=== PATIENT | female | born 1945 | race Caucasian/White ===

== ENCOUNTER → 2020-06-28 15:24 | Outpatient (BNVA) | payer MEDICARE, OTHER, SELFPAY | PROVIDERS: Visit Provider Nurse Practitioner Family | DX: E11.9 Type 2 diabetes mellitus without complications (principal); Z79.4 Long term (current) use of insulin; I10 Essential (primary) hypertension; Z51.81 Encounter for therapeutic drug level monitoring; Z79.02 Long term (current) use of antithrombotics/antiplatelets; E03.9 Hypothyroidism, unspecified; N18.4 Chronic kidney disease, stage 4 (severe); E11.22 Type 2 diabetes mellitus with diabetic chronic kidney disease; G20 Parkinson's disease | CPT/HCPCS: 80053; 83036; 84443; 85025 ==

== ENCOUNTER → 2020-07-06 10:49 | Outpatient (BNVA) | payer MEDICARE, OTHER, SELFPAY | PROVIDERS: PCP Nurse Practitioner Family; Visit Provider Nurse Practitioner Family | DX: R35.0 Frequency of micturition (principal); R31.9 Hematuria, unspecified; N39.0 Urinary tract infection, site not specified; Z79.4 Long term (current) use of insulin; E11.9 Type 2 diabetes mellitus without complications | CPT/HCPCS: 81000; 87077; 87086; 87184 ==

== ENCOUNTER → 2020-08-05 09:06 | Outpatient (BNVA) | payer MEDICARE, OTHER, SELFPAY | PROVIDERS: PCP Nurse Practitioner Family; Visit Provider Nurse Practitioner Family | DX: N39.0 Urinary tract infection, site not specified (principal); R31.9 Hematuria, unspecified; I10 Essential (primary) hypertension; M25.559 Pain in unspecified hip | CPT/HCPCS: 80053; 81000; 87077; 87086; 87184 ==

== ENCOUNTER → 2020-08-19 11:12 | Outpatient (BNVA) | payer MEDICARE, OTHER, SELFPAY | PROVIDERS: PCP Nurse Practitioner Family; Visit Provider Internal Medicine Nephrology | DX: E11.22 Type 2 diabetes mellitus with diabetic chronic kidney disease (principal) | CPT/HCPCS: 82310; 83550; 83970; 84100; 85025 ==

== ENCOUNTER → 2020-11-19 10:26 | Outpatient (BNVA) | payer MEDICARE, OTHER, SELFPAY | PROVIDERS: PCP Nurse Practitioner Family; Visit Provider Nurse Practitioner Family | DX: M54.9 Dorsalgia, unspecified (principal); I10 Essential (primary) hypertension; E11.9 Type 2 diabetes mellitus without complications; Z79.4 Long term (current) use of insulin; M54.30 Sciatica, unspecified side; M53.87 Other specified dorsopathies, lumbosacral region; R31.9 Hematuria, unspecified | CPT/HCPCS: 80053; 81000; 82043; 83036; 87077; 87086; 87184 ==

== ENCOUNTER 2020-11-25 13:50 | Outpatient (CLI) | payer MEDICARE, OTHER, SELFPAY ==
--- NOTE | 2020-11-25 14:07 | XR_ITS ---
WS: [id number] XR lumbar spine 2-3V* [id number] REASON FOR EXAM: M54.9 - Dorsalgia, unspecified FINDINGS: Bone density mildly diminished. At L2-L3 there is significant narrowing of the disc space with degenerative gas. Significant sclerosi s in the inferior half of the L2 vertebral with milder sclerosis in the superior endplate of L3. 4 mm of retrolisthesis of L2 on L3. Mild biconcave compression deformity of L2. Pedicle screws L3-S1 with interbody fusion devices at L3-L4, L4-L5, and L5-S1. Approximately 5 mm of anterolisthesis of L4 in relation to L3 and L5. XR/XR lumbar spine 2-3V* [id number] IMPRESSION: Post lumbar surgical changes as above. Changes of severe degenerative disc disease at L2-L3.
--- NOTE | 2020-11-25 14:15 | US_ITS ---
WS: [id number] ULTRASOUND RENAL TECHNIQUE: Ultrasound examination of both kidneys. CLINICAL INFORMATION: R10.9 - Unspecified abdominal pain COMPARISON: None. FINDINGS: Technically difficult examination due to body habitus RIGHT: Right kidney is normal in size and appearance. Echogenicity: Increased Cortical thickness: 1.1 cm; Normal. Hydronephrosis: None. Perinephric fluid: Present Right kidney measures: 9.1 cm x 5.0 cm x 3.9 cm. LEFT: Left kidney is normal in size and appearance. Echogenicity: Increased Cortical thickness: 1.7 cm; Normal. Hydronephrosis: None. Perinephric fluid: None. Left kidney measures: 10.5 cm x 5.6 cm x 3.8 cm. Normal visualized aorta. Distended bladder volume 308 cc US/US renal BI* [id number] IMPRESSION: 1. No hydronephrosis in either kidney. 2. Echogenic kidneys right greater than left can be seen with chronic medical renal disease. Small amount of perinephric fluid. 3. Distended bladder volume 308 cc
== END 2020-11-25 13:51 | disposition home or self-care (01) ==
PROVIDERS: PCP Nurse Practitioner Family; Visit Provider Nurse Practitioner Family
DX: R10.9 Unspecified abdominal pain (principal); M54.5 Low back pain; M51.36 Other intervertebral disc degeneration, lumbar region
CPT/HCPCS: 72100; 76770

== ENCOUNTER → 2020-12-06 11:51 | Outpatient (BNVA) | payer MEDICARE, OTHER, SELFPAY | PROVIDERS: PCP Nurse Practitioner Family; Visit Provider Nurse Practitioner Family | DX: N30.00 Acute cystitis without hematuria (principal); M51.36 Other intervertebral disc degeneration, lumbar region | CPT/HCPCS: 87077; 87086; 87184 ==

== ENCOUNTER → 2020-12-07 10:40 | Outpatient (BNVA) | payer MEDICARE, OTHER, SELFPAY | PROVIDERS: PCP Nurse Practitioner Family; Referring Provider Nurse Practitioner Family; Visit Provider Anesthesiology Pain Medicine | DX: G20 Parkinson's disease (principal); M51.16 Intervertebral disc disorders with radiculopathy, lumbar region; M47.816 Spondylosis without myelopathy or radiculopathy, lumbar region; M96.1 Postlaminectomy syndrome, not elsewhere classified; Z87.891 Personal history of nicotine dependence | CPT/HCPCS: 99204 ==

== ENCOUNTER → 2021-01-05 10:46 | Outpatient (BNVA) | payer MEDICARE, OTHER, SELFPAY | PROVIDERS: PCP Nurse Practitioner Family; Visit Provider Anesthesiology Pain Medicine | DX: M51.16 Intervertebral disc disorders with radiculopathy, lumbar region (principal); M47.816 Spondylosis without myelopathy or radiculopathy, lumbar region; M96.1 Postlaminectomy syndrome, not elsewhere classified; M79.604 Pain in right leg; M79.605 Pain in left leg; Z79.891 Long term (current) use of opiate analgesic | CPT/HCPCS: 99214 ==

== ENCOUNTER → 2021-02-02 10:02 | Outpatient (BNVA) | payer MEDICARE, OTHER, SELFPAY | PROVIDERS: PCP Nurse Practitioner Family; Visit Provider Anesthesiology Pain Medicine | DX: M51.16 Intervertebral disc disorders with radiculopathy, lumbar region (principal); M47.816 Spondylosis without myelopathy or radiculopathy, lumbar region; M96.1 Postlaminectomy syndrome, not elsewhere classified; M79.604 Pain in right leg; M79.605 Pain in left leg; E11.22 Type 2 diabetes mellitus with diabetic chronic kidney disease; N18.4 Chronic kidney disease, stage 4 (severe); E11.40 Type 2 diabetes mellitus with diabetic neuropathy, unspecified; M79.7 Fibromyalgia; G20 Parkinson's disease; Z79.891 Long term (current) use of opiate analgesic; Z79.4 Long term (current) use of insulin | CPT/HCPCS: 99214 ==

== ENCOUNTER → 2021-03-03 09:28 | Outpatient (BNVA) | payer MEDICARE, OTHER, SELFPAY | PROVIDERS: PCP Nurse Practitioner Family; Visit Provider Anesthesiology Pain Medicine | DX: M51.16 Intervertebral disc disorders with radiculopathy, lumbar region (principal); M47.816 Spondylosis without myelopathy or radiculopathy, lumbar region; M96.1 Postlaminectomy syndrome, not elsewhere classified; M79.604 Pain in right leg; M79.605 Pain in left leg; Z79.891 Long term (current) use of opiate analgesic | CPT/HCPCS: 99214 ==

== ENCOUNTER → 2021-03-07 14:43 | Outpatient (BNVA) | payer MEDICARE, OTHER, SELFPAY | PROVIDERS: PCP Nurse Practitioner Family; Visit Provider Nurse Practitioner Family | DX: R30.9 Painful micturition, unspecified (principal); R31.9 Hematuria, unspecified | CPT/HCPCS: 81000; 87077; 87086; 87184 ==

== ENCOUNTER → 2021-03-09 10:09 | Outpatient (BNVA) | payer MEDICARE, OTHER, SELFPAY | PROVIDERS: PCP Nurse Practitioner Family; Visit Provider Internal Medicine | DX: E11.22 Type 2 diabetes mellitus with diabetic chronic kidney disease (principal); N18.4 Chronic kidney disease, stage 4 (severe) | CPT/HCPCS: 80069 ==

== ENCOUNTER 2021-03-31 09:59 | Observation (INO) | payer MEDICARE, OTHER, SELFPAY ==
[2021-03-31] VITALS (8 sets, daily range): BP systolic 109–155; BP diastolic 60–109; PULSE 75–104; RESP 15–22; TEMP 36.7–37; O2SAT 93–98; BMI 39.0
--- NOTE | 2021-03-31 10:11 | ECG_ITS ---
[facility] Test Date: 2021-03-31 Pat Name: Meghna Chaudhari Department: Room: Gender: Female Soaping Machine Back Tender: : 1945 Requested By: Nav Carter Order Number: [id number] Sara MD: Mellisa Sommer M.D. Measurements Intervals [place] Rate: 95 P: VT: QRS: 11 QRSD: 91 T: 60 QT: 388 QTc: 489 Interpretive Statements ATRIAL FIBRILLATION POSSIBLE RIGHT VENTRICULAR CONDUCTION DELAY [RSR (QR) IN V1/V2] POSSIBLE LEFT VENTRICULAR HYPERTROPHY [VOLTAGE CRITERIA PLUS LAE OR QRS WIDENING] No previous ECG available for comparison Electronically Signed On 03-31-2021 16:03:32 COSTUMER by Mellisa Sommer M.D. [id number]
--- NOTE | 2021-03-31 10:28 | XR_ITS ---
WS: [id number] Portable AP upright chest, 03/31/2021 Clinical Data: shortmess of breath Comparison: None. Findings: No nodules, masses or effusions are seen. The heart is normal. The pulmonary vascularity is not increased. No pneumonia or pneumothorax is seen. The aortic arch and descending thoracic aorta s how calcification and tortuosity. Monitoring leads are on the chest wall. Thoracic epidural leads end at the T8 vertebral level. XR/XR chest 1V portable [id number] Impression: Atherosclerosis.
[2021-03-31] MEDS: sodium chloride 0.9% 500 ML 999 ML IV (10:47)
[2021-03-31 10:52] LABS: Basophils # 0.1 10^3/uL (0.0-0.1); Basophils % 0.6 %; Eosinophils # 0.3 10^3/uL (0.0-0.8); Eosinophils % 1.9 %; Hematocrit 28.3 % (37.0-47.0); Hemoglobin 9.1 g/dL (11.5-15.3); Lymphocytes # 1.7 10^3/uL (0.8-4.8); Lymphocytes % 12.4 %; Mean Corpuscular HGB Conc 32.2 g/dL (30.0-36.0); Mean Platelet Volume 9.8 fL (7.4-10.4); Monocytes # 0.7 10^3/uL (0.2-0.9); Monocytes % 5.3 %; Neutrophils # 11.14 10^3/uL (1.8-7.7); Neutrophils % 79.3 %; Nucleated Red Blood Cells % 0 %; Platelet Count 368 10^3/cmm (130-400); Red Blood Count 3.37 10^6/uL (4.1-5.3); Red Cell Distribution Width 15.8 % (12.1-15.1)
[2021-03-31 11:12] LABS: Troponin(5th) Baseline 41 ng/L (0-10)
[2021-03-31 11:19] LABS: Alanine Aminotransferase < 5 U/L (0-33); Albumin Level 3.6 g/dL (3.5-5.2); Alkaline Phosphatase 103 IU/L (35-105); Aspartate Amino Transferase 11 U/L (0-32); Blood Urea Nitrogen 52 mg/dL (8-23); Carbon Dioxide 25 mmol/L (22-29); Chloride 104 mmol/L (98-107); Globulin 3.5 g/dL (1.3-4.6); Glucose 63 mg/dL (65-115); Lipase 34 U/L (13-60); NT Pro B Type Natriuretic Pept 2022 pg/mL (0-450); Osmolality Calculated 310 mOsm/kg (285-295); Sodium 144 mmol/L (136-145); Total Bilirubin 0.3 mg/dL (0.15-1.2); Total Protein 7.1 g/dL (6.6-8.7)
[2021-03-31 11:41] LABS: Urine Appearance Cloudy (CLEAR); Urine Color Straw (Yellow); pH Urine 5 (5-7)
[2021-03-31 11:42] LABS: Add Urine Microscopic? YES; Bilirubin Urine Neg (Negative); Blood Urine Neg (Negative); Glucose Urine UA Norm (Normal); Ketones Urine Negative (Negative); Leukocyte Esterase Urine 1+ (Negative); Nitrate Urine Negative (Negative); Protein Urine 3+ (Negative); Specific Gravity, Urine 1.015 (1.005-1.030); Urobilinogen Urine Norm (Negative)
[2021-03-31 11:43] LABS: Add Urine Culture? Yes; Bacteria Urine 4+ /hpf; Mucus Urine 1+ /hpf; RBC Urine 0-4 /hpf (0-2); WBC Urine 40-55 /hpf (0-5)
[2021-03-31 11:55] LABS: INR 1.04 (0.8-1.2)
[2021-03-31 11:56] LABS: Partial Thromboplastin Time 31.1 SECONDS (23.9-36.7)
--- NOTE | 2021-03-31 12:29 | ECG_ITS ---
[facility] Test Date: 2021-03-31 Pat Name: Meghna Chaudhari Department: Room: Gender: Female Manager Long Term Care: : 1945 Requested By: Nav Carter Order Number: [id number] Sara MD: Mellisa Sommer M.D. Measurements Intervals [place] Rate: 96 P: NV: QRS: 4 QRSD: 93 T: 59 QT: 402 QTc: 509 Interpretive Statements ATRIAL FIBRILLATION POSSIBLE RIGHT VENTRICULAR CONDUCTION DELAY [RSR (QR) IN V1/V2] VOLTAGE CRITERIA FOR LVH [MEETS CRITERIA IN ONE OF: R(aVL), S(V1), R(V5), R(V5/V6)+S(V1)] Compared to ECG 03/31/2021 10:22:15 No significant changes Electronically Signed On 03-31-2021 16:05:34 EYEGLASS LENS GENERATOR by Mellisa Sommer M.D. [id number]
--- NOTE | 2021-03-31 12:38 | W.ED.SOB ---
HPI - SOB/Dyspnea General: Chief Complaint: Shortness of Breath/Dyspnea Stated Complaint: SOB/ CP Time Seen by Provider: 03/31/21 10:24 Source: patient and family History of Present Illness: HPI Narrative: 76-year-old female presents to emergency department chief complaint of shortness of breath intermittent palpitations. She presents to the family practice clinic as there is concerned that the patient may be in atrial fibrillation. Patient reports she has had some generalized weakness fatigue malaise has been ongoing reports having episodes like this in the past reports no other pre-existing cardiac history does report having a prior history of stroke that she is on Plavix for. Patient reports no valvular heart disease reports of significant fatigue and dyspnea. Patient does report also having a history of chronic kidney disease with a urinary tract infection that she had approximately-3 weeks ago that she was treated with antibiotics. MD elicited complaint: shortness of breath Associated symptoms: Reports palpitations; Deny abdominal pain, chest pain, extremity pain, fever(s), nausea or vomiting Review of Systems General: Reports: 10 or more systems reviewed and unremarkable except in HPI and below Const: Denies: fever(s), chills, fatigue or malaise Eyes: Denies: change in vision or blurry vision Card: Reports: palpitations; Denies: chest pain Resp: Reports: dyspnea; Denies: productive cough GI: Denies: abdominal pain, nausea or vomiting : Denies: flank pain Musc: Denies: extremity pain or extremity swelling Skin/Breast: Denies: rash or pruritus Neuro: Denies: headache(s) Psych: Denies: anxiety or depression Tank/Lymph: Denies: easy bleeding All/Imm: Denies: urticaria, throat swelling or facial swelling PFSH ED PFSH: Medical History Anemia in chronic illness Chronic insomnia COPD (chronic obstructive pulmonary disease) Diabetes mellitus type 2, insulin dependent Diabetic neuropathy Fibromyalgia History of CVA (cerebrovascular accident) Hyperlipemia Hypertension Hypothyroidism Parkinson disease Sciatica associated with disorder of lumbosacral spine Stage 4 chronic renal impairment associated with type 2 diabetes mellitus Uncontrolled insulin dependent diabetes mellitus Vitamin D deficiency Surgical History Hx of cholecystectomy Hx of foot surgery Hx of hysterectomy Family History Father CAD (coronary artery disease) Mother CAD (coronary artery disease) Diabetes Grandfather CAD (coronary artery disease) Diabetes Social History Second hand smoke exposure: No Alcohol intake: current Alcohol intake frequency: holidays/special occasions only History of recent travel: No Course ED course: Due to the patient's symptoms condition lab and imaging was obtained patient was provided one dose of Cardizem which improved her rate down to the 80s still in atrial fibrillation but rate controlled patient was found in mild heart failure and mild chronic renal disease. Patient was provided a dose of Lasix as well will be contacting the hospital for further admission. Patient family updated agreeable to admission at this time. Spoke with Dr. Loaiza on-call hospitalist who agrees the patient to be made to the floor patient remained stable condition at this time. Vital Signs: Vital signs: Vital Signs Temperature 98.6 F 03/31/21 10:01 Pulse Rate 85 03/31/21 11:55 Respiratory Rate 18 03/31/21 11:55 Blood Pressure 146/70 03/31/21 11:55 Pulse Oximetry 96 03/31/21 11:55 MDM - SOB/Dyspnea Lab Data: Labs: Lab Results 03/31/21 03/31/21 03/31/21 10:10 10:10 10:10 WBC 14.0 10^3/uL H 10 ^3/uL (4.0-10.0) RBC 3.37 10^6/uL L 10 ^6/uL (4.1-5.3) Hgb 9.1 g/dL L g/dL (11.5-15.3) Hct 28.3 % L % (37.0-47.0) MCV 84.0 fl fl (81-99) MCH 27.0 pg L pg (28.0-34.0) MCHC 32.2 g/dL g/dL (30.0-36.0) RDW 15.8 % H % (12.1-15.1) Plt Count 368 10^3/cmm 10^3 /cmm (130-400) MPV 9.8 fL fL (7.4-10.4) Neut % (Auto) 79.3 % % Lymph % (Auto) 12.4 % % Alfalfa % (Auto) 5.3 % % Eos % (Auto) 1.9 % % Baso % (Auto) 0.6 % % Neut # (Auto) 11.14 10^3/uL H 1 0^3/uL (1.8-7.7) Lymph # (Auto) 1.7 10^3/uL 10^3/ uL (0.8-4.8) Alfalfa # (Auto) 0.7 10^3/uL 10^3/ uL (0.2-0.9) Eos # (Auto) 0.3 10^3/uL 10^3/ uL (0.0-0.8) Baso # (Auto) 0.1 10^3/uL 10^3/ uL (0.0-0.1) Nucleated RBC % (a uto) 0 % % Nucleated RBCs # 0.0 /100WBC /100W BC PT INR APTT Sodium 144 mmol/L mmol/L (136-145) Potassium 3.0 mmol/L L mmol /L (3.5-5.1) Chloride 104 mmol/L mmol/L (98-107) Carbon Dioxide 25 mmol/L mmol/L (22-29) Anion Gap 18.0 (5-19) BUN 52 mg/dL H mg/dL (8-23) Creatinine 2.2 mg/dL H mg/dL (0.5-0.9) GFR Calculation Not Reportable Glucose 63 mg/dL L mg/dL (65-115) Calculated Osmolal ity 310 mOsm/kg H mOs m/kg (285-295) Calcium 8.0 mg/dL L mg/dL (8.5-10.5) Total Bilirubin 0.3 mg/dL mg/dL (0.15-1.2) AST 11 U/L U/L (0-32) ALT < 5 U/L U/L (0-33) Alkaline Phosphata se 103 IU/L IU/L (35-105) Troponin T Baselin e 41 ng/L H ng/L (0-10) NT-Pro-B Natriuret Pep 2022 pg/mL H pg/m L (0-450) Total Protein 7.1 g/dL g/dL (6.6-8.7) Albumin 3.6 g/dL g/dL (3.5-5.2) Globulin 3.5 g/dL g/dL (1.3-4.6) Lipase 34 U/L U/L (13-60) Urine Color Urine Appearance Urine pH Ur Specific Gravit y Urine Protein Urine Glucose (UA) Urine Ketones Urine Blood Urine Nitrate Urine Bilirubin Urine Urobilinogen Ur Leukocyte Miranda ase Urine RBC Urine WBC Ur Squamous Epith Cells Amorphous Sediment Urine Bacteria Urine Mucus 03/31/21 03/31/21 10:10 11:25 WBC RBC Hgb Hct MCV MCH MCHC RDW Plt Count MPV Neut % (Auto) Lymph % (Auto) Alfalfa % (Auto) Eos % (Auto) Baso % (Auto) Neut # (Auto) Lymph # (Auto) Alfalfa # (Auto) Eos # (Auto) Baso # (Auto) Nucleated RBC % (a uto) Nucleated RBCs # PT 14.00 SECONDS SEC ONDS (12.1-14.9) INR 1.04 (0.8-1.2) APTT 31.1 SECONDS SECO NDS (23.9-36.7) Sodium Potassium Chloride Carbon Dioxide Anion Gap BUN Creatinine GFR Calculation Glucose Calculated Osmolal ity Calcium Total Bilirubin AST ALT Alkaline Phosphata se Troponin T Baselin e NT-Pro-B Natriuret Pep Total Protein Albumin Globulin Lipase Urine Color Straw (Yellow) Urine Appearance Cloudy (CLEAR) Urine pH 5 (5-7) Ur Specific Gravit y 1.015 (1.005-1.030) Urine Protein 3+ H (Negative) Urine Glucose (UA) Norm (Normal) Urine Ketones Negative (Negative) Urine Blood Neg (Negative) Urine Nitrate Negative (Negative) Urine Bilirubin Neg (Negative) Urine Urobilinogen Norm mg/dL mg/dL (Negative) Ur Leukocyte Miranda ase 1+ H (Negative) Urine RBC 0-4 /hpf H /hpf (0-2) Urine WBC 40-55 /hpf H /hpf (0-5) Ur Squamous Epith Cells 5-10 /hpf H /hpf (0-5) Amorphous Sediment Not Reportable Urine Bacteria 4+ /hpf H /hpf (NONE) Urine Mucus 1+ /hpf /hpf EKG Data^: EKG 1: Attestation: I personally reviewed and interpreted this EKG as follows: Prior EKG tracings: available for review Ischemic changes: other (Atrial fibrillation rate of ninety-[address] segment elevations or depressions appreciated.) Discharge Plan Discharge Patient Disposition: Admitted As Inpatient Clinical Impression: Atrial fibrillation with controlled ventricular rate, Heart failure, Chronic renal insufficiency Condition: Stable Coding Level of Care Code ED Broaching Machine Set Up Operator for Dominick Baca
[2021-03-31 13:16] LABS: D Dimer 3.19 ug/mIFEU (0-0.59)
[2021-03-31 13:20] LABS: Troponin 5 2HR 42.09 ng/L (0-10); Troponin 5 2HR Delta 1.09 ABS# (0-10)
--- NOTE | 2021-03-31 13:20 | PC.PHAR ---
pt and pts daughter verified the pts medications-pts daughter states states the clonidine 0.3mg patch and spironolactone were dced-pts daughter states the pt takes armour thyriod 30mg qam filled on 02/28/21 90d/s and states she takes 120mg daily last filled on 07/26/20 90d/s-ext med history shows hydralazine last filled 12/12/20 90d/s for 25mg tid-pts daughter states the pt takes 12.5mg tid--notes are made in the pharmacy comments
[2021-03-31 13:41] LABS: SARS Covid-2 Antigen Negative (Negative)
[2021-03-31 14:03] LABS: Magnesium 1.6 mg/dL (1.7-2.3)
--- NOTE | 2021-03-31 14:45 | P.HP_ITS ---
Providers/Chief Complaint Admitting Physician: Gonzalo Loaiza MD Primary Care Provider: MILAGRO Kent Chief Complaint: SOB/ CP History of Present Illness Meghna Chaudhari is a 76 year old female who has history of chronic kidney disease, Charcot foot, diabetes, amputation of toes, presents today with chief complaint of worsening shortness of breath. Patient stating that she has been experiencing shortness of breath for quite some time which has gotten worse in the last few days. She has not noticed any fever, nausea, vomiting, sweats or substernal squeezing chest pain. She carries history of fibromyalgia, she only sleeps 2 to 3 hours a day she has insomnia. Does not smoke or drink alcohol. She lives in a skilled nursing apartment. Today she was not feeling well which she described as fatigue lethargy and shortness of breath on exertion, she went to her PCP where EKG was done and she was diagnosed with A. fib RVR. She came to the ER for further evaluation In the ER she received Cardizem IV push and A. fib was rate controlled afterwards, requested TSH and D-dimer, her D-dimer is high, requested VQ scan, replenished electrolytes such as magnesium and potassium for hypomagnesemia and hypokalemia At the time of my evaluation heart rate fluctuated between 10 5-1 15, started Eliquis and increased dose of metoprolol At the time my evaluation patient reproducible chest pain, hemodynamically stable, patient stating that she is not very mobile, she is vaccinated for COVID-19. Review of Systems Const: Reports: body aches and fatigue; Denies: chills Eyes: Denies: change in vision ENMT: Denies: throat pain Card: Reports: chest pain and dyspnea on exertion Resp: Reports: dyspnea GI: Denies: abdominal pain : Denies: flank pain Musc: Denies: neck pain Skin/Breast: Denies: rash Neuro: Denies: headache(s) Psych: Denies: anxiety Endo: Denies: polyuria Tank/Lymph: Denies: easy bruising All/Imm: Denies: urticaria Medications/Allergies Home Medications Medication Instructions Recorded Confirmed Last Taken Type aspirin 81 mg tablet,delayed 81 mg PO BEDTIME 06/28/20 03/31/21 Unknown History release cholecalciferol (vitamin D3) 25 25 mcg PO DAILY 06/28/20 03/31/21 Unknown History mcg (1,000 unit) capsule clopidogrel 75 mg tablet 75 mg PO BEDTIME 06/28/20 03/31/21 Unknown History ferrous sulfate 325 mg (65 mg 325 mg PO BID 06/28/20 03/31/21 Unknown History iron) tablet folic acid 1 mg tablet 1 mg PO QAM 06/28/20 03/31/21 Unknown History furosemide 40 mg tablet 40 mg PO QAM 06/28/20 03/31/21 Unknown History gabapentin 300 mg capsule 600 mg PO BID 06/28/20 03/31/21 Unknown History hydralazine 25 mg tablet 12.5 mg PO TID tab 06/28/20 03/31/21 Unknown History metolazone 2.5 mg tablet See Rx Instructions .ROUTE .COMPLEX 06/28/20 03/31/21 Unknown History blood sugar diagnostic #100 ea 07/06/20 03/31/21 Unknown Rx carbidopa 25 mg-levodopa 100 mg 2 tab PO TID #360 tab 12/07/20 03/31/21 03/31/21 08:00 Rx tablet albuterol sulfate 90 mcg/actuation 2 puff INHALATION Q6H PRN #6.7 g 02/01/21 03/31/21 Unknown Rx aerosol inhaler simvastatin 40 mg tablet 40 mg PO DAILY #90 tab 02/01/21 03/31/21 Unknown Rx fluticasone propionate 115 2 puff INHALATION BID #8 g 02/02/21 03/31/21 03/31/21 08:00 Rx mcg-salmeterol 21 mcg/actuation HFA inhaler pen needle, diabetic 31 gauge x #1200 ea 02/28/21 03/31/21 Unknown Rx 5/16 oxycodone-acetaminophen 5 mg-325 1 tab PO BID PRN 30 Days #60 tab 03/03/21 03/31/21 Unknown Rx mg tablet blood sugar diagnostic #100 ea 03/14/21 03/31/21 Unknown Rx [place] Thyroid 30 mg PO QAM 03/31/21 03/31/21 Unknown History Remeron 30 mg PO BEDTIME 03/31/21 03/31/21 Unknown History Vesicare 5 mg PO QAM 03/31/21 03/31/21 Unknown History bimatoprost [Lumigan] 1 drp OPHTHALMIC (EYE) BEDTIME 03/31/21 03/31/21 Unknown History clonidine HCl 0.3 mg PO .PRN 03/31/21 03/31/21 Unknown History duloxetine 60 mg PO DAILY@12 03/31/21 03/31/21 Unknown History hydroxyzine pamoate 25 mg PO BEDTIME 03/31/21 03/31/21 Unknown History insulin aspart U-100 [Novolog See Rx Instructions .ROUTE .COMPLEX 03/31/21 03/31/21 03/31/21 08:00 History Flexpen U-100 Insulin] 2 units insulin glargine [Lantus Solostar 80 unit SUBCUT QAM 03/31/21 03/31/21 03/31/21 History U-100 Insulin] metoprolol tartrate 25 mg PO DAILY 03/31/21 03/31/21 Unknown History potassium chloride 20 meq PO BID 03/31/21 03/31/21 Unknown History ropinirole 0.5 mg PO BEDTIME 03/31/21 03/31/21 Unknown History thyroid (pork) [[place] Thyroid] 120 mg PO QAM 03/31/21 03/31/21 Unknown History Allergies Allergy/AdvReac Type Severity Reaction Status Date / Time sulfamethoxazole Allergy Rash Verified 03/31/21 08:22 [From Septra] trimethoprim [From Septra] Allergy Rash Verified 03/31/21 08:22 morphine AdvReac Personality Verified 03/31/21 08:22 Change pregabalin [From Lyrica] AdvReac Loopy/Unste Verified 03/31/21 08:22 anoop PFSH Acute PFSH: Medical History Anemia in chronic illness Chronic insomnia COPD (chronic obstructive pulmonary disease) Diabetes mellitus type 2, insulin dependent Diabetic neuropathy Fibromyalgia History of CVA (cerebrovascular accident) Hyperlipemia Hypertension Hypothyroidism Parkinson disease Sciatica associated with disorder of lumbosacral spine Stage 4 chronic renal impairment associated with type 2 diabetes mellitus Uncontrolled insulin dependent diabetes mellitus Vitamin D deficiency Surgical History Hx of cholecystectomy Hx of foot surgery Hx of hysterectomy Family History Father CAD (coronary artery disease) Mother CAD (coronary artery disease) Diabetes Grandfather CAD (coronary artery disease) Diabetes Social History Second hand smoke exposure: No Alcohol intake: current Alcohol intake frequency: holidays/special occasions only History of recent travel: No Vitals/I&O/Wt Last Vital Signs Temp 98.6 F 03/31/21 10:01 Pulse 78 03/31/21 14:16 Resp 18 03/31/21 14:16 BP 155/88 03/31/21 14:16 Pulse Ox 98 03/31/21 14:16 03/30/21 03/31/21 03/31/21 22:59 06:59 14:59 Intake Total 500 / 500 Balance 500 / 500 Weight last 48 hrs Weight 114.759 kg Physical Exam Narrative: EXAM NARRATIVE: Obese female Saturating well on room air EOMI, PERRLA Nonfocal neuro exam Variable S1-S2 Abdomen soft, distended with obesity Charcot foot Amputation of toes Lower extremity nonpitting edema Osteoarthritis of knees Appropriate mood and affect Data : 03/31/21 10:10 03/31/21 10:10 A&P Assessment and plan (1) Atrial fibrillation with controlled ventricular rate: Status: Acute (2) Chronic renal insufficiency: Status: Acute (3) COPD (chronic obstructive pulmonary disease): Status: Acute (4) Post laminectomy syndrome: Status: Acute (5) Lumbar disc disease with radiculopathy: Status: Acute (6) Parkinson disease: Status: Acute (7) Stage 4 chronic renal impairment associated with type 2 diabetes mellitus: Status: Acute (8) Anemia in chronic illness: Status: Acute (9) Fibromyalgia: Status: Acute (10) Hypothyroidism: Status: Acute (11) Diabetic neuropathy: Status: Acute Additional A&P Information New onset A. fib Ventricular rate is controlled however now fluctuating between 95-1 15 Increase her metoprolol to 100 mg twice daily Start Eliquis 5 mg twice daily, in case of worsening of creatinine might benefit from 2.5 mg twice daily We will request echo in the morning TSH normal Hypomagnesemia, hypokalemia: Repleted She has reproducible chest pain, troponin negative delta Saturating well on room air Patient has severe insomnia, she only sleeps 3 hours a day, Hemoglobin stable, anemia of chronic disease Cardiac diet, consistent carb diet for type 2 diabetes along sliding scale DVT prophylaxis currently on Eliquis Full code Secondary to severe electrolyte imbalance I will hold her metolazone which he takes for chronic kidney disease Attestations Medical Necessity Statement*: Anticipating less than 2 midnights in the hospital Time Spent in Patient Care: Greater than 35 minutes Coding Level of Care Code Acute Gas Operations Superintendent for Gisselg Fwd Diagnoses Atrial fibrillation with controlled ventricular rate I48.91 Chronic renal insufficiency N18.9 COPD (chronic obstructive pulmonary disease) J44.9 Post laminectomy syndrome M96.1 Lumbar disc disease with radiculopathy M51.16 Parkinson disease G20 Stage 4 chronic renal impairment associated with type 2 diabetes mellitus E11.22; N18.4 Anemia in chronic illness D63.8 Fibromyalgia M79.7 Hypothyroidism E03.9 Diabetic neuropathy E11.40
--- NOTE | 2021-03-31 14:48 | USCV_ITS ---
Meghna Chaudhari Age: 76 Gender: F : 1945 Exam Date: 03/31/2021 15:32 Ordering Phys: Gonzalo Loaiza MD Technologist: [place] [facility] [place]: LEG SWELLING PROCEDURES: Venous duplex imaging was performed in bilateral lower extremities. The following venous structures were evaluated: common femoral vein, profunda vein, proximal portion of the greater saphenous vein, superficial femoral vein, and the popliteal vein. In addition, the posterior tibial and peroneal trunk were evaluated. Serial compression, augmentation maneuvers, and spectral Doppler flow evaluation were performed. FINDINGS: Normal 2-D Doppler and augmentation and compressibility throughout the lower extremity venous structures. Additional imaging through the proximal calf veins also reveals no thrombus. Limited evaluation of the greater saphenous vein is patent with no thrombus.. CONCLUSIONS No evidence of right lower extremity DVT. No evidence of left lower extremity DVT. Philip June MD (Electronically Signed) Final Date: 31 March 2021 17:21 S
--- NOTE | 2021-03-31 15:04 | PC.NURSE ---
Received patient from ER. Patient is alert and has been oriented to use of call schmidt and surroundings. Patients blood pressure is high. Nurse will continue to monitor and give PO hydralazine as ordered.
[2021-03-31] MEDS: carbidopa-levodopa 25-100mg Tablet 2 EACH PO ×2 (15:27→21:50)
[2021-03-31] MEDS: potassium chloride ER 20 mEq Tablet 40 MEQ PO (15:28)
[2021-03-31] MEDS: magnesium sulfate premix 2 GM/50 ML PIGGYBACK IV (15:28)
[2021-03-31] MEDS: hyDRALAzine 25 mg Tablet 12.5 MG PO ×2 (15:28→21:50)
[2021-03-31 15:49] LABS: Glucose Point of Care 74 mg/dL (70-110)
--- NOTE | 2021-03-31 16:29 | ECG_ITS ---
[facility] Test Date: 2021-03-31 Pat Name: Meghna Chaudhari Department: Room: 108 Gender: Female Waste Elimination: : 1945 Requested By: Nav Carter Order Number: [id number] Sara MD: Mellisa Sommer M.D. Measurements Intervals [place] Rate: 90 P: HI: QRS: -11 QRSD: 95 T: 52 QT: 399 QTc: 488 Interpretive Statements ATRIAL FIBRILLATION POSSIBLE RIGHT VENTRICULAR CONDUCTION DELAY [RSR (QR) IN V1/V2] VOLTAGE CRITERIA FOR LVH [MEETS CRITERIA IN ONE OF: R(aVL), S(V1), R(V5), R(V5/V6)+S(V1)] MODERATE ST DEPRESSION [0.05+ mV ST DEPRESSION] Compared to ECG 03/31/2021 13:08:56 ST (T wave) deviation now present Electronically Signed On 04-01-2021 6:36:59 CRECHE ATTENDANT by Mellisa Sommer M.D. [id number]
[2021-03-31] MEDS: ferrous sulfate EC 325 mg Tablet PO (17:38)
[2021-03-31] MEDS: gabapentin 300 mg Capsule 600 MG PO (17:38)
[2021-03-31] MEDS: oxyCODONE-APAP 5-325 mg Tablet 1 TAB PO (20:20)
[2021-03-31] MEDS: clopidogrel 75 mg Tablet PO (21:50)
[2021-03-31] MEDS: ropinirole 0.25 mg Tablet 0.5 MG PO (21:50)
[2021-03-31] MEDS: potassium chloride ER 20 mEq Tablet PO (21:51)
[2021-03-31] MEDS: metoprolol tartrate 50 mg Tablet 100 MG PO (21:52)
[2021-03-31] MEDS: apixaban 5 mg Tablet PO (21:55)
[2021-04-01] VITALS (10 sets, daily range): BP systolic 127–157; BP diastolic 75–110; PULSE 73–96; RESP 16–22; TEMP 36.6; O2SAT 91–98
[2021-04-01 03:59] LABS: Basophils # 0.1 10^3/uL (0.0-0.1); Basophils % 0.5 %; Eosinophils # 0.2 10^3/uL (0.0-0.8); Eosinophils % 1.9 %; Hematocrit 27.5 % (37.0-47.0); Hemoglobin 8.4 g/dL (11.5-15.3); Lymphocytes # 2.5 10^3/uL (0.8-4.8); Lymphocytes % 19.2 %; Mean Corpuscular HGB Conc 30.5 g/dL (30.0-36.0); Mean Corpuscular Volume 88.4 fl (81-99); Mean Platelet Volume 9.9 fL (7.4-10.4); Monocytes # 0.8 10^3/uL (0.2-0.9); Monocytes % 5.8 %; Neutrophils # 9.35 10^3/uL (1.8-7.7); Neutrophils % 72.1 %; Nucleated Red Blood Cells % 0 %; Platelet Count 368 10^3/cmm (130-400); Red Blood Count 3.11 10^6/uL (4.1-5.3)
[2021-04-01 04:24] LABS: Anion Gap 17.2 (5-19); Blood Urea Nitrogen 56 mg/dL (8-23); Calcium 8.1 mg/dL (8.5-10.5); Carbon Dioxide 26 mmol/L (22-29); Chloride 102 mmol/L (98-107); Glucose 119 mg/dL (65-115); Osmolality Calculated 311 mOsm/kg (285-295); Potassium 3.2 mmol/L (3.5-5.1); Sodium 142 mmol/L (136-145)
[2021-04-01] MEDS: folic acid 1 mg Tablet PO (05:35)
[2021-04-01] MEDS: thyroid 60 mg Tablet 30 MG PO (05:35)
[2021-04-01] MEDS: FUROsemide 40 mg Tablet PO (05:36)
[2021-04-01] MEDS: thyroid 60 mg Tablet 120 MG PO (05:36)
--- NOTE | 2021-04-01 05:56 | PC.NURSE ---
Frequent safety and comfort rounds continue. Orders and/or nursing care completed as indicated. Patient monitored for response to intervention and treatment(s). Education provided includes blood pressure medications]. Patient and/or packaging sales representative verbalizes understanding. Will continue to monitor.
[2021-04-01 07:09] LABS: Glucose Point of Care 106 mg/dL (70-110)
[2021-04-01] MEDS: insulin glargine 100 units/1 mL 80 UNIT SUBCUT (08:09)
[2021-04-01] MEDS: hyDRALAzine 25 mg Tablet 12.5 MG PO ×3 (08:12→20:43)
[2021-04-01] MEDS: ferrous sulfate EC 325 mg Tablet PO ×2 (08:13→17:02)
[2021-04-01] MEDS: atorvastatin 40 mg Tablet 20 MG PO (08:13)
[2021-04-01] MEDS: gabapentin 300 mg Capsule 600 MG PO ×2 (08:13→17:02)
[2021-04-01] MEDS: apixaban 5 mg Tablet PO (08:13)
[2021-04-01] MEDS: carbidopa-levodopa 25-100mg Tablet 2 EACH PO ×3 (08:13→20:44)
[2021-04-01] MEDS: metoprolol tartrate 50 mg Tablet 100 MG PO ×2 (08:13→20:43)
[2021-04-01] MEDS: metOLazone 5 MG Tablet 2.5 MG PO (09:35)
[2021-04-01] MEDS: oxyCODONE-APAP 5-325 mg Tablet 1 TAB PO ×2 (09:35→17:37)
[2021-04-01 11:06] LABS: Glucose Point of Care 114 mg/dL (70-110)
[2021-04-01 11:19] LABS: Glucose Point of Care 177 mg/dL (70-110)
[2021-04-01] MEDS: duloxetine 60 mg Capsule PO (11:33)
[2021-04-01] MEDS: insulin lispro 100 unit/1 mL SUBCUT ×2 (11:33→17:01)
--- NOTE | 2021-04-01 12:30 | PM.PN ---
Subjective Subjective: Interval history: Patient was seen and examined She is feeling fine, A. 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 fib without RVR Saturating well on room air Abdomen soft with obesity Bilateral lower extremity with Charcot foot No severe edema of legs Patient was eating breakfast No conversational dyspnea No active chest pain Data : 04/01/21 03:21 04/01/21 03:21 Micro: Microbiology 03/31/21 11:25 Urine Culture - Preliminary Urine,Clean Catch Gram Negative Rods A&P Assessment and plan (1) Atrial fibrillation with controlled ventricular rate: Status: Acute (2) COPD (chronic obstructive pulmonary disease): Status: Acute (3) Post laminectomy syndrome: Status: Acute (4) Fibromyalgia: Status: Acute (5) Anemia in chronic illness: Status: Acute (6) Hypothyroidism: Status: Acute (7) Diabetic neuropathy: Status: Acute Additional A&P Information A. fib without RVR Rate controlled with higher dose of metoprolol, she is on low-dose Eliquis because of worsening kidney function, high probability for PE No signs of DVT Hypomagnesemia: Repleted Patient is still hypokalemic, will replete today as well No active chest pain Her shortness of breath has improved She is feeling much better today Echo without significant valvular abnormality Full code Cardiac diet Started metolazone today Acute on chronic kidney disease: Creatinine has worsened to 2.6, baseline creatinine seems to be around 2.2-2.3 Plan to discharge her tomorrow Attestations Medical Necessity Statement*: Discharge tomorrow Time Spent in Patient Care: 16 - 35 minutes Coding Level of Care Code 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
--- NOTE | 2021-04-01 14:48 | NM_ITS ---
WS: [id number] NUCLEAR MEDICINE LUNG VENTILATION AND PERFUSION CLINICAL INFORMATION: sob, afib new onset TECHNIQUE: Ventilation/perfusion lung scan with 32.4 mCi technetium 99m DTPA. 5.4 mCi MAA COMPARISON: None. FINDINGS: Radiograph March 31, 2021 reviewed. Patchy central radiotracer deposition on the ventilatory image s due to emphysema. Large regional perfusion defect in the left posterior lung on the LPO imaging with areas of matched a nd mismatched ventilation defects. Matched ventilation/perfusion defect in the left upper lobe. Singl e matched area of ventilation/perfusion defect in the right posterior lateral lung. NM/NM pul vent and perfus* [id number] IMPRESSION: 1. High probability for pulmonary embolus. Consider further evaluation with CTA chest if renal function allows. Exam interpreted using the PIOPED II criteria 2008: 1. Normal 2. High probability (> 80%) 3. Intermediate probability (20-79%) 4. Low probability (10-19%) 5. Very low probability (<10%) JNM 2006 6. Indeterminate Notified Gonzalo Loaiza MD at 04/01/2021 8:37 AM.
[2021-04-01 15:55] LABS: Glucose Point of Care 156 mg/dL (70-110)
--- NOTE | 2021-04-01 19:40 | USCV_ITS ---
Meghna Chaudhari Age: 76 Gender: F : 1945 Exam Date: 04/01/2021 05:35 Ordering Phys: Gonzalo Loaiza MD Technologist: Deepti Amezcua [place] [facility] [place] NEW ONSET AFIB BP: 154 / 82 HR: 83 Rhythm: Sinus Technical Quality: Adequate MEASUREMENTS (Male / Female) Normal Values 2D ECHO LV Diastolic Diameter PLAX 3.3 cm 4.2 - 5.9 / 3.9 - 5.3 cm LV Systolic Diameter PLAX 3.1 cm LV Chamber Size 4.6 cm IVS Diastolic Thickness 3.8 cm 0.6 - 1.0 / 0.6 - 0.9 cm IVS Systolic Thickness 1.9 cm LVPW Diastolic Thickness 0.7 cm 0.6 - 1.0 / 0.6 - 0.9 cm LVPW Systolic Thickness 1.8 cm RV Chamber Size 3.8 cm LVOT Diameter 2.0 cm LV Ejection Fraction 2D Teich 49.0 % LV Ejection Fraction MOD 2C 36.1 % LV Ejection Fraction 2C AL 34.0 % LA Diameter 4.9 cm LA Width 3.9 cm LA Height 5.6 cm RA Width 3.5 cm RA Height 4.3 cm Aorta at Sinotubular Diameter 2.9 cm M-MODE LV Diastolic Diameter MM 5.5 cm 4.2 - 5.9 / 3.9 - 5.3 cm LV Systolic Diameter MM 4.0 cm LV Ejection Fraction MM Teich 53.0 % IVS Diastolic Thickness MM 1.3 cm 0.6 - 1.0 / 0.6 - 0.9 cm IVS Systolic Thickness MM 1.6 cm LVPW Diastolic Thickness MM 1.3 cm 0.6 - 1.0 / 0.6 - 0.9 cm LVPW Systolic Thickness MM 2.0 cm Aortic Annulus Diameter 3.1 cm LA Ao Ratio MM 1.7 MV E Point Septal Separation 0.4 cm DOPPLER AV Peak Velocity 126.0 cm/s LVOT Peak Velocity 99.0 cm/s AV Area Cont Eq vti 2.6 cm squared AV Area Cont Eq pk 2.5 cm squared MV Area PHT 2.7 cm squared MV E' Velocity 62.0 cm/s Mitral E to MV E' Ratio 8.3 Mitral E to LV E' Lateral Ratio 8.6 Mitral E to LV E' Septal Ratio 8.0 TR Peak Velocity 254.8 cm/s TR Peak Gradient 26.0 mmHg TR Mean Velocity 195.3 cm/s TR Mean Gradient 18.0 mmHg TR Velocity Time Integral 80.8 cm TV Peak E Velocity 91.0 cm/s Right Atrial Pressure 3.0 mmHg Pulmonary Artery Systolic Pressu 29.0 mmHg PV Peak Velocity 88.0 cm/s RV Acceleration Time 0.2 s RV Ejection Time 0.4 s RV AcT/ET 0.4 FINDINGS Left Ventricle Normal left ventricular size. LV systolic function is normal with EF of 55-60%. No regional wall motion abnormalities. Diastolic function is indeterminate Right Ventricle The right ventricle is normal in size and function. Right Atrium The right atrium is normal in size. Left Atrium The left atrium is normal in size. Mitral Valve Mitral valve is thickened. There is moderate mitral regurgitation. Aortic Valve Aortic valve is thickened without significant stenosis. There is no aortic regurgitation. Tricuspid Valve Structurally normal tricuspid valve without significant stenosis. Mild tricuspid regurgitation. Insufficient TR jet to calculate RVSP Pulmonic Valve Structurally normal pulmonic valve without significant stenosis. There is no pulmonic regurgitation. Pericardium Normal pericardium without effusion. Aorta Normal ascending aorta dimension. CONCLUSIONS LV systolic function is normal with EF of 55-60% Diastolic function is indeterminate Moderate mitral regurgitation Mild tricuspid regurgitation No comparison studies are noted Gabino Feng MD (Electronically Signed) Final Date: 01 April 2021 16:40 S
[2021-04-01 20:34] LABS: Glucose Point of Care 141 mg/dL (70-110)
[2021-04-01] MEDS: ropinirole 0.25 mg Tablet 0.5 MG PO (20:42)
[2021-04-01] MEDS: clopidogrel 75 mg Tablet PO (20:43)
[2021-04-01] MEDS: potassium chloride ER 20 mEq Tablet PO (20:43)
[2021-04-01] MEDS: apixaban 5 mg Tablet 2.5 MG PO (20:44)
[2021-04-02] VITALS (7 sets, daily range): BP systolic 119–174; BP diastolic 63–101; PULSE 75–102; RESP 15–21; TEMP 36.4–36.6; O2SAT 91–100
--- NOTE | 2021-04-02 05:32 | PC.NURSE ---
SHIFT SUMMARY Has rested well tonight without c/o pain or discomfort. Monitor showing A-fib with CVR. Has been assisted up to [facility]. Voiced to nurse unhappiness about having to go to assisted living facility but understands why.
[2021-04-02 06:13] LABS: Anion Gap 18.3 (5-19); Blood Urea Nitrogen 59 mg/dL (8-23); Calcium 8.7 mg/dL (8.5-10.5); Carbon Dioxide 27 mmol/L (22-29); Chloride 99 mmol/L (98-107); Glucose 128 mg/dL (65-115); Osmolality Calculated 310 mOsm/kg (285-295); Potassium 3.3 mmol/L (3.5-5.1); Sodium 141 mmol/L (136-145)
[2021-04-02] MEDS: metOLazone 5 MG Tablet 2.5 MG PO ×2 (06:21→08:01)
[2021-04-02] MEDS: folic acid 1 mg Tablet PO (06:21)
[2021-04-02] MEDS: FUROsemide 40 mg Tablet PO (06:22)
[2021-04-02] MEDS: thyroid 60 mg Tablet 30 MG PO (06:22)
[2021-04-02] MEDS: thyroid 60 mg Tablet 120 MG PO (06:22)
[2021-04-02] MEDS: insulin glargine 100 units/1 mL 80 UNIT SUBCUT (06:23)
[2021-04-02 06:36] LABS: Glucose Point of Care 162 mg/dL (70-110)
[2021-04-02] MEDS: insulin lispro 100 unit/1 mL SUBCUT (07:59)
[2021-04-02] MEDS: oxyCODONE-APAP 5-325 mg Tablet 1 TAB PO (07:59)
[2021-04-02] MEDS: atorvastatin 40 mg Tablet 20 MG PO (08:00)
[2021-04-02] MEDS: carbidopa-levodopa 25-100mg Tablet 2 EACH PO (08:00)
[2021-04-02] MEDS: hyDRALAzine 25 mg Tablet 12.5 MG PO (08:00)
[2021-04-02] MEDS: ferrous sulfate EC 325 mg Tablet PO (08:00)
[2021-04-02] MEDS: apixaban 5 mg Tablet 2.5 MG PO (08:00)
[2021-04-02] MEDS: metoprolol tartrate 50 mg Tablet 100 MG PO (08:00)
[2021-04-02] MEDS: gabapentin 300 mg Capsule 600 MG PO (08:00)
--- NOTE | 2021-04-02 08:09 | PC.NURSE ---
Will come back and recheck BP once patient is done eating.
[2021-04-02 11:18] LABS: Glucose Point of Care 148 mg/dL (70-110)
--- NOTE | 2021-04-02 12:20 | P.DS_ITS ---
Discharge Providers Date of Admission: 03/31/21 12:51 Date of Discharge: April 02, 2021 Attending Provider at Admission: Gonzalo Loaiza MD Attending Provider at Discharge: Gonzalo Loaiza MD Primary Care Provider: MILAGRO Kent Diagnoses at Discharge Discharge Diagnosis (1) Atrial fibrillation with controlled ventricular rate: Status: Acute (2) COPD (chronic obstructive pulmonary disease): Status: Acute (3) Post laminectomy syndrome: Status: Acute (4) Fibromyalgia: Status: Acute (5) Anemia in chronic illness: Status: Acute (6) Hypothyroidism: Status: Acute (7) Diabetic neuropathy: Status: Acute Reason for Visit Reason for Visit: SOB/ CP Hospital Course Hospital Course History of Present Illness Meghna Chaudhari is a 76 year old female who has history of chronic kidney disease, Charcot foot, diabetes, amputation of toes, presents today with chief complaint of worsening shortness of breath. Patient stating that she has been experiencing shortness of breath for quite some time which has gotten worse in the last few days. She has not noticed any fever, nausea, vomiting, sweats or substernal squeezing chest pain. She carries history of fibromyalgia, she only sleeps 2 to 3 hours a day she has insomnia. Does not smoke or drink alcohol. She lives in a snf apartment. Today she was not feeling well which she described as fatigue lethargy and shortness of breath on exertion, she went to her PCP where EKG was done and she was diagnosed with A. fib RVR. She came to the ER for further evaluation In the ER she received Cardizem IV push and A. fib was rate controlled a fterwards, requested TSH and D-dimer, her D-dimer is high, requested VQ scan, replenished electrolytes such as magnesium and potassium for hypomagnesemia and hypokalemia At the time of my evaluation heart rate fluctuated between 10 5-1 15, started Eliquis and increased dose of metoprolol At the time my evaluation patient reproducible chest pain, hemodynamically stable, patient stating that she is not very mobile, she is vaccinated for COVID-19 Full course Patient was admitted for evaluation and management of A. fib RVR. She received Cardizem IV push in the ER which controlled her ventricular rate however she remained in atrial fibrillation, her metoprolol dose was increased to 100 mg twice a day, Eliquis 2.5 twice daily was started secondary to her chronic kidney disease, VQ scan was requested which showed hyper ability for PE, no signs of DVT. At the time of discharge I have discontinued aspirin, she will take Eliquis and Plavix along metoprolol. Daughter was updated. She will follow-up with her care professional outpatient. Electrolytes were replenished during hospitalization. Hypomagnesemia, hypokalemia repleted during hospitalization. Her creatinine did improve with addition of metolazone to diuretic which is her regular home medication. Physical Exam Narrative: EXAM NARRATIVE: Patient was sitting comfortably in her bed Anxious mood Variable S1-S2 Distended abdomen Bilateral lower extremity Charcot foot No edema EOMI, PERRLA Nonfocal neuro exam Saturating well on room air Discharge Data Data Completed and Pending: Completed Studies During Hospitalization Category Date Time Status XR chest 1V marce ble [id number] Urgent Exams 03/31/21 10:28 Completed NM pul vent and p erfus* [id number] Routi ne Nuc Med 04/01/21 14:48 [place] [id number] Routin e Ultrasound 03/31/21 14:48 Completed CV. echo complete * [id number] Routine Ultrasound 04/01/21 19:40 Completed Labs from last 24 hours 04/02/21 04/02/21 04/02/21 11:14 06:26 04:59 Sodium 141 Potassium 3.3 L Chloride 99 Carbon Dioxide 27 Anion Gap 18.3 BUN 59 H Creatinine 2.5 H GFR Calculation Not Reportable Glucose 128 H POC Glucose 148 H 162 H Calculated Osmolal ity 310 H Calcium 8.7 04/01/21 04/01/21 20:18 15:52 Sodium Potassium Chloride Carbon Dioxide Anion Gap BUN Creatinine GFR Calculation Glucose POC Glucose 141 H 156 H Calculated Osmolal ity Calcium Vitals: Last Vital Signs Temp 97.8 F 04/02/21 08:00 Pulse 102 H 04/02/21 08:00 Resp 20 H 04/02/21 08:00 BP 174/101 04/02/21 08:00 Pulse Ox 91 04/02/21 08:00 Discharge Plan Discharge Patient Disposition: Home Condition: Stable Prescriptions: New Eliquis 2.5 mg tablet 2.5 mg PO BID Qty: 60 RF: 5 metoprolol tartrate 100 mg tablet 100 mg PO BID Qty: 90 RF: 3 Continued carbidopa-levodopa [Sinemet] 25-100 mg tablet 2 tab PO TID Qty: 360 RF: 3 simvastatin [Zocor] 40 mg tablet 40 mg PO DAILY Qty: 90 RF: 0 albuterol sulfate [ProAir HFA] 90 mcg/actuation HFA aerosol inhaler 2 puff inhalation Q6H PRN (Reason: shortness of breath or wheezing) Qty: 6.7 RF: 2 Advair HFA 115-21 mcg/actuation HFA aerosol inhaler 2 puff inhalation BID Qty: 8 RF: 2 folic acid 1 mg tablet 1 mg PO QAM RF: 0 hydralazine 25 mg tablet 12.5 mg PO TID RF: 0 ferrous sulfate [FeroSul] 325 mg (65 mg iron) tablet 325 mg PO BID RF: 0 furosemide [Lasix] 40 mg tablet 40 mg PO QAM RF: 0 gabapentin [Neurontin] 300 mg capsule 600 mg PO BID RF: 0 clopidogrel [Plavix] 75 mg tablet 75 mg PO BEDTIME RF: 0 cholecalciferol (vitamin D3) 25 mcg (1,000 unit) capsule 25 mcg PO DAILY RF: 0 metolazone 2.5 mg tablet See Rx Instructions .ROUTE .COMPLEX RF: 0 (DME) Blood Glucose Test Strip See Rx Instructions .ROUTE .MEDSUPPLY Qty: 100 RF: 0 oxycodone-acetaminophen 5-325 mg tablet 1 tab PO BID PRN (Reason: pain) 30 Days Qty: 60 RF: 0 (DME) pen needle, diabetic [1st Tier Unifine Pentips] 31 gauge x 5/16 needle See Rx Instructions .ROUTE .MEDSUPPLY Qty: 1200 RF: 2 (DME) Precision Xtra Test Strip See Rx Instructions .Route Qty: 100 RF: 0 hydroxyzine pamoate 25 mg capsule 25 mg PO BEDTIME RF: 0 insulin aspart U-100 [Novolog Flexpen U-100 Insulin] 100 unit/mL (3 mL) insulin pen See Rx Instructions .ROUTE .COMPLEX RF: 0 Lantus Solostar U-100 Insulin 100 unit/mL (3 mL) insulin pen 80 unit SUBCUT QAM RF: 0 clonidine HCl 0.3 mg tablet 0.3 mg PO .PRN RF: 0 duloxetine 60 mg capsule,delayed release(DR/EC) 60 mg PO DAILY@12 RF: 0 potassium chloride 10 mEq capsule, extended release 20 meq PO BID RF: 0 Remeron 30 mg tablet 30 mg PO BEDTIME RF: 0 ropinirole 0.5 mg tablet 0.5 mg PO BEDTIME RF: 0 Vesicare 5 mg tablet 5 mg PO QAM RF: 0 [place] Thyroid 15 mg tablet 30 mg PO QAM RF: 0 [place] Thyroid 120 mg tablet 120 mg PO QAM RF: 0 Lumigan 0.01 % drops 1 drp ophthalmic (eye) BEDTIME RF: 0 Discontinued aspirin [Adult Low Dose Aspirin] 81 mg tablet,delayed release (DR/EC) 81 mg PO BEDTIME RF: 0 metoprolol tartrate 25 mg tablet 25 mg PO DAILY RF: 0 Discharge Orders: Discharge Order (Routine); Ordered 04/02/21 Ordered By: Gonzalo Loaiza Referrals: [facility] [Outside] Lydia Chávez FNP [Primary Care Provider] - 7-10 days (Lydia Chávez's office will be calling to schedule a hospital followup to be seen in 7 to 10 days. If you don't hear from them by Sunday afternoon, please give them a call. Thank you) Discharge Diet: Cardiac Discharge Activity: Increase activity as tolerated Patient Instructions: Atrial Fibrillation, Metoprolol (By mouth) (Lopressor, Toprol XL), Apixaban (By mouth), Opioid Safety Activity Restrictions/Additional Instructions: Please discontinue aspirin, you will take Eliquis 2.5 mg twice daily along Plavix, can take metoprolol 100 mg twice daily to control heart rate, if your heart rate is below 60, can reduce the dose of metoprolol Discharge Attestations Time Spent in Discharge Care*: less than 30 min Quality Metrics Clinical Quality Measures During this hospital stay, did patient experience: None Coding Level of Care Code Acute Chg FW DC note Diagnoses Atrial fibrillation with controlled ventricular rate I48.91 COPD (chronic obstructive pulmonary disease) J44.9 Post laminectomy syndrome M96.1 Fibromyalgia M79.7 Anemia in chronic illness D63.8 Hypothyroidism E03.9 Diabetic neuropathy E11.40
[2021-04-02] MEDS: duloxetine 60 mg Capsule PO (12:46)
--- NOTE | 2021-04-02 13:48 | PC.NURSE ---
Patient education provided, no questions or concerns. Patient went home with daughters. VS stable upon departure.
== END 2021-04-02 13:50 | disposition home or self-care (01) ==
LOC: ER 12:44 → CSU 14:44
PROVIDERS: Admitting Provider Internal Medicine; Emergency Provider Emergency Medicine; PCP Nurse Practitioner Family; Visit Provider Internal Medicine
DX: I48.91 Unspecified atrial fibrillation (principal); J44.9 Chronic obstructive pulmonary disease, unspecified; I12.9 Hypertensive chronic kidney disease with stage 1 through stage 4 chronic kidney disease, or unspecified chronic kidney disease; E11.22 Type 2 diabetes mellitus with diabetic chronic kidney disease; N18.4 Chronic kidney disease, stage 4 (severe); E11.610 Type 2 diabetes mellitus with diabetic neuropathic arthropathy; E83.42 Hypomagnesemia; D63.8 Anemia in other chronic diseases classified elsewhere; E03.9 Hypothyroidism, unspecified; E87.6 Hypokalemia; M79.7 Fibromyalgia; G20 Parkinson's disease; M51.16 Intervertebral disc disorders with radiculopathy, lumbar region; M96.1 Postlaminectomy syndrome, not elsewhere classified; M79.89 Other specified soft tissue disorders; Z89.429 Acquired absence of other toe(s), unspecified side; Z79.4 Long term (current) use of insulin; Z79.899 Other long term (current) drug therapy
CPT/HCPCS: 36415; 36416; 71045; 78014; 80048; 80053; 81000; 81001; 82962; 83690; 83735; 83880; 84443; 84484; 85025; 85378; 85610; 85730; 87077; 87086; 87184; 87186; 87426; 93005; 93306; 93970; 96365; 96372; 96375; 99285; A9540; A9567; G0378; J1815 ×2; J3475; J3490; J7040

== ENCOUNTER 2021-04-16 02:29 | Emergency (ER) | payer MEDICARE, OTHER, SELFPAY ==
[2021-04-16 02:36] VITALS: BP 173/73; PULSE 60; RESP 18; TEMP 36.6; O2SAT 97; BMI 38.5
[2021-04-16 04:24] VITALS: BP 168/78
[2021-04-16] MEDS: cloNIDine 0.1 mg Tablet 0.2 MG PO (04:24)
[2021-04-16] MEDS: oxymetazoline 0.05% Nasal Spray 15 mL 2 SPRAY NOSTRIL-B (04:24)
[2021-04-16 04:47] LABS: Basophils # 0.1 10^3/uL (0.0-0.1); Basophils % 0.6 %; Eosinophils # 0.5 10^3/uL (0.0-0.8); Eosinophils % 3.6 %; Hematocrit 27.4 % (37.0-47.0); Hemoglobin 8.3 g/dL (11.5-15.3); Lymphocytes # 2.9 10^3/uL (0.8-4.8); Lymphocytes % 20.9 %; Mean Corpuscular HGB Conc 30.3 g/dL (30.0-36.0); Mean Corpuscular Hemoglobin 26.9 pg (28.0-34.0); Mean Platelet Volume 10.4 fL (7.4-10.4); Monocytes # 0.8 10^3/uL (0.2-0.9); Monocytes % 5.8 %; Neutrophils # 9.63 10^3/uL (1.8-7.7); Neutrophils % 68.7 %; Nucleated Red Blood Cells % 0 %; Platelet Count 306 10^3/cmm (130-400); Red Blood Count 3.08 10^6/uL (4.1-5.3); Red Cell Distribution Width 17.4 % (12.1-15.1)
--- NOTE | 2021-04-16 04:51 | ED_ITS ---
HPI - Epistaxis General: Chief complaint: Epistaxis Stated complaint: NOSEBLEED Time Seen by Provider: 04/16/21 02:53 History of Present Illness: HPI Narrative: 76-year-old anticoagulated female with a history of anemia presents after an episode of epistaxis that lasted a few hours. Bleeding is stopped now. She notes a full feeling to her face her blood pressure had been high at home this morning following the nosebleed. MD complaint: epistaxis Location: right nostril Onset (ago): hour(s) Duration: constant Context: history of previous and other anticoagulant use Associated symptoms: Reports no associated symptoms; Deny fever(s) Review of Systems Const: Denies: fever(s) or chills Eyes: Denies: change in vision ENMT: Denies: throat pain or uvular edema Card: Denies: chest pain or palpitations Resp: Denies: dyspnea GI: Denies: abdominal pain PFSH ED PFSH: Medical History (Updated 04/16/21 @ 06:03 by Ministerio Guaman DO) Anemia in chronic illness Chronic insomnia Chronic renal insufficiency COPD (chronic obstructive pulmonary disease) Diabetes mellitus type 2, insulin dependent Diabetic neuropathy Fibromyalgia History of CVA (cerebrovascular accident) Hyperlipemia Hypertension Hypothyroidism Lumbar disc disease with radiculopathy Neuropathy Parkinson disease Post laminectomy syndrome Sciatica associated with disorder of lumbosacral spine Stage 4 chronic renal impairment associated with type 2 diabetes mellitus Uncontrolled insulin dependent diabetes mellitus Vitamin D deficiency Surgical History Hx of cholecystectomy Hx of foot surgery Hx of hysterectomy Family History Father CAD (coronary artery disease) Mother CAD (coronary artery disease) Diabetes Grandfather CAD (coronary artery disease) Diabetes Social History Second hand smoke exposure: No Alcohol intake: current Alcohol intake frequency: holidays/special occasions only History of recent travel: No Physical Exam HENMT: COMMON NORMALS: normocephalic, atraumatic, external ears normal and Normal external nose present HEAD & SCALP: normocephalic and atraumatic NOSE: Normal external nose present, No nasal polyps present and Abnormal mucous membranes and turbinates present (No active bleeding. No distinct ulceration) erythematous EXTERNAL EAR: Yes external ears normal MOUTH: lip abnormal THROAT: no uvular edema Chest: COMMONS NORMALS: normal inspection of the chest Resp: COMMON NORMALS: clear to auscultation bilaterally EFFORT & INSPECTION: Yes able to speak in complete sentences AUSCULTATION: clear to auscultation bilaterally Cardio: COMMON NORMALS: regular rate and regular rhythm RATE: regular rate RHYTHM: regular rhythm Course Vital Signs: Vital signs: Vital Signs Temperature 97.9 F 04/16/21 02:36 Pulse Rate 59 L 04/16/21 05:55 Respiratory Rate 18 04/16/21 05:55 Blood Pressure 149/67 04/16/21 05:55 Pulse Oximetry 97 04/16/21 05:55 MDM - Epistaxis MDM Narrative: Medical decision making narrative: No nosebleeding currently. Sprayed with Afrin for moisture, and to control any further bleeding. She is on apixaban and Plavix. Hemoglobin is stable at 8.3 from prior. Platelet count normal. Awaiting other labs. Potassium is 2.8. No EKG changes. She is asymptomatic. We have given her 40 of KCl liquid, and giving her 2.8 mEq IV. She will be discharged for outpatient follow-up when completed. Lab Data: Labs: Lab Results 04/16/21 04/16/21 04/16/21 04:20 04:20 04:20 WBC 14.0 10^3/uL H 10 ^3/uL (4.0-10.0) RBC 3.08 10^6/uL L 10 ^6/uL (4.1-5.3) Hgb 8.3 g/dL L g/dL (11.5-15.3) Hct 27.4 % L % (37.0-47.0) MCV 89.0 fl fl (81-99) MCH 26.9 pg L pg (28.0-34.0) MCHC 30.3 g/dL g/dL (30.0-36.0) RDW 17.4 % H % (12.1-15.1) Plt Count 306 10^3/cmm 10^3 /cmm (130-400) MPV 10.4 fL fL (7.4-10.4) Neut % (Auto) 68.7 % % Lymph % (Auto) 20.9 % % [place] % (Auto) 5.8 % % Eos % (Auto) 3.6 % % Baso % (Auto) 0.6 % % Neut # (Auto) 9.63 10^3/uL H 10 ^3/uL (1.8-7.7) Lymph # (Auto) 2.9 10^3/uL 10^3/ uL (0.8-4.8) [place] # (Auto) 0.8 10^3/uL 10^3/ uL (0.2-0.9) Eos # (Auto) 0.5 10^3/uL 10^3/ uL (0.0-0.8) Baso # (Auto) 0.1 10^3/uL 10^3/ uL (0.0-0.1) Nucleated RBC % (a uto) 0 % % Nucleated RBCs # 0.0 /100WBC /100W BC PT 14.80 SECONDS SEC ONDS (12.1-14.9) INR 1.12 (0.8-1.2) APTT 33.4 SECONDS SECO NDS (23.9-36.7) Sodium 143 mmol/L mmol/L (136-145) Potassium 2.8 mmol/L L* mmo l/L (3.5-5.1) Chloride 99 mmol/L mmol/L (98-107) Carbon Dioxide 27 mmol/L mmol/L (22-29) Anion Gap 19.8 H (5-19) BUN 54 mg/dL H mg/dL (8-23) Creatinine 2.4 mg/dL H mg/dL (0.5-0.9) GFR Calculation Not Reportable Glucose 92 mg/dL mg/dL (65-115) Calculated Osmolal ity 310 mOsm/kg H mOs m/kg (285-295) Calcium 6.8 mg/dL L mg/dL (8.5-10.5) Discharge Plan Discharge Patient Disposition: Home Clinical Impression: Epistaxis, Acute hypokalemia Condition: Stable Prescriptions: No Action carbidopa-levodopa [Sinemet] 25-100 mg tablet 2 tab PO TID Qty: 360 RF: 3 albuterol sulfate [ProAir HFA] 90 mcg/actuation HFA aerosol inhaler 2 puff inhalation Q6H PRN (Reason: shortness of breath or wheezing) Qty: 6.7 RF: 2 Advair HFA 115-21 mcg/actuation HFA aerosol inhaler 2 puff inhalation BID Qty: 8 RF: 2 folic acid 1 mg tablet 1 mg PO QAM RF: 0 hydralazine 25 mg tablet 12.5 mg PO TID RF: 0 ferrous sulfate [FeroSul] 325 mg (65 mg iron) tablet 325 mg PO BID RF: 0 furosemide [Lasix] 40 mg tablet 40 mg PO QAM RF: 0 gabapentin [Neurontin] 300 mg capsule 600 mg PO BID RF: 0 clopidogrel [Plavix] 75 mg tablet 75 mg PO BEDTIME RF: 0 cholecalciferol (vitamin D3) 25 mcg (1,000 unit) capsule 25 mcg PO DAILY RF: 0 metolazone 2.5 mg tablet See Rx Instructions .ROUTE .COMPLEX RF: 0 (DME) Blood Glucose Test Strip See Rx Instructions .ROUTE .MEDSUPPLY Qty: 100 RF: 0 gabapentin 800 mg tablet 800 mg PO BID Qty: 180 RF: 1 ondansetron HCl [Zofran] 4 mg tablet 4 mg PO Q8H PRN (Reason: nausea and vomiting) Qty: 30 RF: 0 (DME) pen needle, diabetic [1st Tier Unifine Pentips] 31 gauge x 5/16 needle See Rx Instructions .ROUTE .MEDSUPPLY Qty: 1200 RF: 2 (DME) Precision Xtra Test Strip See Rx Instructions .Route Qty: 100 RF: 0 simvastatin 40 mg tablet See Rx Instructions .ROUTE .COMPLEX Qty: 90 RF: 3 oxycodone-acetaminophen 5-325 mg tablet 1 tab PO BID PRN (Reason: pain) 30 Days Qty: 60 RF: 0 hydroxyzine pamoate 25 mg capsule 25 mg PO BEDTIME RF: 0 insulin aspart U-100 [Novolog Flexpen U-100 Insulin] 100 unit/mL (3 mL) insulin pen See Rx Instructions .ROUTE .COMPLEX RF: 0 Lantus Solostar U-100 Insulin 100 unit/mL (3 mL) insulin pen 80 unit SUBCUT QAM RF: 0 clonidine HCl 0.3 mg tablet 0.3 mg PO .PRN RF: 0 duloxetine 60 mg capsule,delayed release(DR/EC) 60 mg PO DAILY@12 RF: 0 potassium chloride 10 mEq capsule, extended release 20 meq PO BID RF: 0 Remeron 30 mg tablet 30 mg PO BEDTIME RF: 0 ropinirole 0.5 mg tablet 0.5 mg PO BEDTIME RF: 0 Vesicare 5 mg tablet 5 mg PO QAM RF: 0 [place] Thyroid 15 mg tablet 30 mg PO QAM RF: 0 [place] Thyroid 120 mg tablet 120 mg PO QAM RF: 0 Lumigan 0.01 % drops 1 drp ophthalmic (eye) BEDTIME RF: 0 Eliquis 2.5 mg tablet 2.5 mg PO BID Qty: 60 RF: 5 metoprolol tartrate 100 mg tablet 100 mg PO BID Qty: 90 RF: 3 Discharge Orders: Discharge ED (Routine); Ordered 04/16/21 Ordered By: Ministerio Guaman Referrals: Lydia Chávez FNP [Primary Care Provider] - 1-3 days Patient Instructions: Hypokalemia (ED), Anemia (ED), Epistaxis - Adult Activity Restrictions/Additional Instructions: Return for any repeated episodes of nosebleeding, uncontrolled blood pressure, other concerning symptoms. You need to have your potassium and blood count checked again on Sunday. Call your doctor and let them know this. Coding Level of Care Code ED Hotel Guest Service Agent for Chg Fwd Exam Expanded Problem Focused
[2021-04-16 05:06] LABS: Anion Gap 19.8 (5-19); Blood Urea Nitrogen 54 mg/dL (8-23); Calcium 6.8 mg/dL (8.5-10.5); Carbon Dioxide 27 mmol/L (22-29); Chloride 99 mmol/L (98-107); Glucose 92 mg/dL (65-115); Osmolality Calculated 310 mOsm/kg (285-295); Sodium 143 mmol/L (136-145)
[2021-04-16 05:07] LABS: INR 1.12 (0.8-1.2); Partial Thromboplastin Time 33.4 SECONDS (23.9-36.7)
[2021-04-16 05:09] LABS: Potassium 2.8 mmol/L (3.5-5.1)
--- NOTE | 2021-04-16 05:18 | ECG_ITS ---
[facility] Test Date: 2021-04-16 Pat Name: Meghna Chaudhari Department: Room: Gender: Female Database Operator: : 1945 Requested By: Ministerio Roberts Order Number: [id number] Reading MD: ANDREW WILDER Measurements Intervals [place] Rate: 58 P: 69 [place]: 188 QRS: 4 QRSD: 109 T: 53 QT: 484 QTc: 478 Interpretive Statements SINUS BRADYCARDIA LEFT VENTRICULAR HYPERTROPHY AND ST-T CHANGE [VOLTAGE CRITERIA PLUS ST/T ABNORMALITY] PROBABLE ANTEROLATERAL MYOCARDIAL INFARCTION , PROBABLY OLD [35 ms Q WAVE IN I/aVL/V3-V6] Compared to ECG 03/31/2021 16:20:30 Myocardial infarct finding now present Atrial fibrillation no longer present ST (T wave) deviation still present Electronically Signed On 04-17-2021 19:59:08 AUTOMATION APPLICATION ENGINEER by ANDREW WILDER [id number]
[2021-04-16] MEDS: lidocaine 1% INJ 20 mL INJECTION (05:39)
[2021-04-16] MEDS: potassium chloride oral liq 20 mEq/15 mL UDC 40 MEQ PO (05:39)
[2021-04-16] MEDS: potassium chloride premix 100 ML 50 MEQ IV (05:40)
[2021-04-16] MEDS: sodium chloride 0.9% 500 ML 999 ML IV (05:41)
[2021-04-16 05:55] VITALS: BP 149/67; PULSE 59; RESP 18; O2SAT 97
[2021-04-16 09:57] VITALS: RESP 14; O2SAT 97
== END 2021-04-16 09:59 | disposition home or self-care (01) ==
PROVIDERS: Emergency Provider Emergency Medicine; PCP Nurse Practitioner Family
DX: R04.0 Epistaxis (principal); E87.6 Hypokalemia; Z79.01 Long term (current) use of anticoagulants; Z79.02 Long term (current) use of antithrombotics/antiplatelets; Z79.4 Long term (current) use of insulin
CPT/HCPCS: 80048; 85025; 85610; 85730; 93005; 96365; 96366; 99284; J3480; J7040

== ENCOUNTER → 2021-05-17 14:49 | Outpatient (BNVA) | payer MEDICARE, OTHER, SELFPAY | PROVIDERS: PCP Nurse Practitioner Family; Visit Provider Anesthesiology Pain Medicine | DX: M47.816 Spondylosis without myelopathy or radiculopathy, lumbar region (principal); M51.16 Intervertebral disc disorders with radiculopathy, lumbar region; M96.1 Postlaminectomy syndrome, not elsewhere classified; M53.87 Other specified dorsopathies, lumbosacral region; Z79.891 Long term (current) use of opiate analgesic | CPT/HCPCS: 99214 ==

== ENCOUNTER → 2021-06-14 10:25 | Outpatient (BNVA) | payer MEDICARE, OTHER, SELFPAY | PROVIDERS: PCP Nurse Practitioner Family; Visit Provider Anesthesiology Pain Medicine | DX: M53.87 Other specified dorsopathies, lumbosacral region (principal); M47.816 Spondylosis without myelopathy or radiculopathy, lumbar region; M51.16 Intervertebral disc disorders with radiculopathy, lumbar region; M96.1 Postlaminectomy syndrome, not elsewhere classified; M79.604 Pain in right leg; M79.605 Pain in left leg; Z79.891 Long term (current) use of opiate analgesic; Z87.891 Personal history of nicotine dependence | CPT/HCPCS: 99214 ==

== ENCOUNTER → 2021-07-07 10:15 | Outpatient (BNVA) | payer MEDICARE, OTHER, SELFPAY | PROVIDERS: PCP Nurse Practitioner Family; Visit Provider Anesthesiology Pain Medicine | DX: M53.87 Other specified dorsopathies, lumbosacral region (principal); M47.816 Spondylosis without myelopathy or radiculopathy, lumbar region; M51.16 Intervertebral disc disorders with radiculopathy, lumbar region; M96.1 Postlaminectomy syndrome, not elsewhere classified; M79.604 Pain in right leg; M79.605 Pain in left leg; Z87.891 Personal history of nicotine dependence; Z79.891 Long term (current) use of opiate analgesic | CPT/HCPCS: 99214 ==

== ENCOUNTER → 2021-07-27 08:38 | Outpatient (BNVA) | payer MEDICARE, OTHER, SELFPAY | PROVIDERS: PCP Nurse Practitioner Family; Visit Provider Thoracic Surgery (Cardiothoracic Vascular Surgery) | DX: E11.621 Type 2 diabetes mellitus with foot ulcer (principal); I96 Gangrene, not elsewhere classified; L97.421 Non-pressure chronic ulcer of left heel and midfoot limited to breakdown of skin; L97.811 Non-pressure chronic ulcer of other part of right lower leg limited to breakdown of skin; Z87.891 Personal history of nicotine dependence | CPT/HCPCS: 97597; 99203; 99213; A6250 ==

== ENCOUNTER 2021-08-03 15:15 | Inpatient (IN) | payer MEDICARE, OTHER, SELFPAY ==
[2021-08-03] VITALS (13 sets, daily range): BP systolic 116–220; BP diastolic 36–113; PULSE 58–88; RESP 14–21; TEMP 36.7–36.8; O2SAT 94–98; BMI 45.7
--- NOTE | 2021-08-03 15:40 | ECG_ITS ---
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 Measurements Intervals [place] Rate: 57 P: 116 MO: 205 QRS: 7 QRSD: 92 T: 58 QT: 429 QTc: 419 Interpretive Statements SINUS BRADYCARDIA LOW QRS VOLTAGE IN PRECORDIAL LEADS [QRS DEFLECTION < 1.0 mV IN CHEST LEADS] NONSPECIFIC T-WAVE ABNORMALITY Compared to ECG 04/16/2021 05:19:52 Low QRS voltage now present T-wave abnormality now present Left ventricular hypertrophy no longer present ST (T wave) deviation no longer present Myocardial infarct finding no longer present Electronically Signed On 08-03-2021 18:22:26 CDT by Mellisa Sommer M.D. [id number]
--- NOTE | 2021-08-03 15:40 | XR_ITS ---
WS: [id number] XR chest 1V portable [id number] REASON FOR EXAM: volume overload FINDINGS: The chest is unchanged compared to 03/31/2021. Mild tortuosity the thoracic aorta without aneurysmal d ilatation. There is cardiomegaly. Calcified granulomatous disease in both hemithoraces. No acute pulmonary parenchymal or pleural abnormality. Focal eventration of the right hemidiaphragm. Moderate degenerative spondylosis in the mid and lower thoracic spine. XR/XR chest 1V portable [id number] IMPRESSION: No acute chest abnormality.
--- NOTE | 2021-08-03 15:44 | ED_ITS ---
HPI - Extremity Problem General: Chief complaint: Extremity Problem,Nontraumatic Stated complaint: EDEMA/ WEEPING Time Seen by Provider: 08/03/21 15:33 History of Present Illness: 76-year-old with history of CKD presents to bilateral lower extremity swelling. States this has been getting worse over the last several weeks. States she is on Eliquis and has been having bloody weeping from her lower extremities. Denies any chest pain or shortness of breath however. States she is due for dialysis port placement. Review of Systems Narrative: - CONSTITUTIONAL: Denies weight loss, fever and chills. - HEENT: Denies changes in vision and hearing. - RESPIRATORY: Denies SOB and cough. - CV: Denies palpitations and CP. - GI: Denies abdominal pain, nausea, vomiting and diarrhea. - : Denies dysuria and urinary frequency. - MSK: As above - SKIN: Denies rash and pruritus. - NEUROLOGICAL: Denies headache, weakness, numbness and syncope. - PSYCHIATRIC: Denies suicidal ideation PFSH ED PFSH: Medical History Anemia in chronic illness Chronic insomnia Chronic renal insufficiency COPD (chronic obstructive pulmonary disease) Diabetes mellitus type 2, insulin dependent Diabetic neuropathy Fibromyalgia History of CVA (cerebrovascular accident) Hyperlipemia Hypertension Hypothyroidism Lumbar disc disease with radiculopathy Neuropathy Parkinson disease Post laminectomy syndrome Sciatica associated with disorder of lumbosacral spine Stage 4 chronic renal impairment associated with type 2 diabetes mellitus Uncontrolled insulin dependent diabetes mellitus Vitamin D deficiency Surgical History Hx of cholecystectomy Hx of foot surgery Hx of hysterectomy Family History Father CAD (coronary artery disease) Mother CAD (coronary artery disease) Diabetes Grandfather CAD (coronary artery disease) Diabetes Social History Smoking and tobacco status: former smoker Second hand smoke exposure: No Alcohol intake: current Alcohol intake frequency: holidays/special occasions only Alcohol type: hard liquor History of recent travel: No Physical Exam Narrative: EXAM NARRATIVE: - GENERAL: Alert and oriented x 3. No acute distress. Well-nourished. - EYES: EOMI. Anicteric. - HENT: Atraumatic, no C-spine tenderness. Moist mucous membranes. No scleral icterus. No cervical lymphadenopathy. - LUNGS: Clear to auscultation bilaterally. No accessory muscle use. Equal lung sounds bilaterally. No respiratory distress. - CARDIOVASCULAR: Regular rate and rhythm. No murmur. No JVD. - ABDOMEN: Soft, non-tender and non-distended. Negative CVA tenderness bilaterally, no rebound or guarding, negative Correa sign. No palpable masses. - EXTREMITIES: Bilateral lower extremity edema with bloody weeping. - SKIN: No rashes or lesions. Warm. - NEUROLOGIC: No meningismus or focal neurological deficits. CN II-XII grossly intact. - PSYCHIATRIC: Cooperative. Appropriate mood and affect. Course Vital Signs: Vital signs: Vital Signs Temperature 98.3 F 08/03/21 15:20 Pulse Rate 61 08/03/21 17:21 Respiratory Rate 16 08/03/21 17:21 Blood Pressure 220/105 08/03/21 17:21 Pulse Oximetry 95 08/03/21 17:21 MDM - Extremity (Nontraumatic) Medical Decision Making 76-year-old with history of CKD presents lower extremity swelling. On exam does have bloody weeping and significant lower extremity edema. She denies chest pain or shortness of breath. X-ray does not reveal any significant pulmonary edema. However BNP is significantly elevated to 11,000. CKD is worse today with creatinine up to 3.1. Discussed with nephrology and surgery and she will be admitted for placement of dialysis catheter. Remainder of lab work and imaging reviewed. Discussed with hospitalist and they agreed patient would benefit from admission. Patient admitted in stable condition. Further evaluation management per hospitalist team. Lab Data : 08/03/21 16:47 08/03/21 16:47 Radiology Impressions Chest X-Ray 08/03/21 15:40 IMPRESSION: No acute chest abnormality. Laboratory Results WBC 12.9 10^3/uL (4.0-10.0) H 08/03/21 16:47 RBC 3.40 10^6/uL (4.1-5.3) L 08/03/21 16:47 Hgb 9.3 g/dL (11.5-15.3) L 08/03/21 16:47 Hct 30.9 % (37.0-47.0) L 08/03/21 16:47 MCV 90.9 fl (81-99) 08/03/21 16:47 MCH 27.4 pg (28.0-34.0) L 08/03/21 16:47 MCHC 30.1 g/dL (30.0-36.0) 08/03/21 16:47 RDW 20.3 % (12.1-15.1) H 08/03/21 16:47 Plt Count 348 10^3/cmm (130-400) 08/03/21 16:47 MPV 10.2 fL (7.4-10.4) 08/03/21 16:47 Neut % (Auto) 77.0 % 08/03/21 16:47 Lymph % (Auto) 14.0 % 08/03/21 16:47 [place] % (Auto) 6.9 % 08/03/21 16:47 Eos % (Auto) 1.0 % 08/03/21 16:47 Baso % (Auto) 0.6 % 08/03/21 16:47 Neut # (Auto) 9.92 10^3/uL (1.8-7.7) H 08/03/21 16:47 Lymph # (Auto) 1.8 10^3/uL (0.8-4.8) 08/03/21 16:47 [place] # (Auto) 0.9 10^3/uL (0.2-0.9) 08/03/21 16:47 Eos # (Auto) 0.1 10^3/uL (0.0-0.8) 08/03/21 16:47 Baso # (Auto) 0.1 10^3/uL (0.0-0.1) 08/03/21 16:47 Nucleated RBC % (auto) 0 % 08/03/21 16:47 Nucleated RBCs # 0.0 /100WBC 08/03/21 16:47 Sodium 142 mmol/L (136-145) 08/03/21 16:47 Potassium 3.1 mmol/L (3.5-5.1) L 08/03/21 16:47 Chloride 98 mmol/L (98-107) 08/03/21 16:47 Carbon Dioxide 30 mmol/L (22-29) H 08/03/21 16:47 Anion Gap 17.1 (5-19) 08/03/21 16:47 BUN 71 mg/dL (8-23) H 08/03/21 16:47 Creatinine 3.1 mg/dL (0.5-0.9) H 08/03/21 16:47 GFR Calculation Not Reportable 08/03/21 16:47 Glucose 69 mg/dL (65-115) 08/03/21 16:47 Calculated Osmolality 313 mOsm/kg (285-295) H 08/03/21 16:47 Calcium 8.0 mg/dL (8.5-10.5) L 08/03/21 16:47 Total Bilirubin 0.4 mg/dL (0.15-1.2) 08/03/21 16:47 AST 22 U/L (0-32) 08/03/21 16:47 ALT < 5 U/L (0-33) 08/03/21 16:47 Alkaline Phosphatase 153 IU/L (35-105) H 08/03/21 16:47 NT-Pro-B Natriuret Pep 43450 pg/mL (0-450) H 08/03/21 16:47 Total Protein 7.9 g/dL (6.6-8.7) 08/03/21 16:47 Albumin 3.3 g/dL (3.5-5.2) L 08/03/21 16:47 Globulin 4.6 g/dL (1.3-4.6) 08/03/21 16:47 EKG Data EKG 1: Other EKG comments: Sinus bradycardia, rate 57, no sign of acute ischemia or other acute abnormality. Discharge Plan Discharge Condition: Stable Prescriptions: No Action carbidopa-levodopa [Sinemet] 25-100 mg tablet 2 tab PO TID Qty: 360 3RF (DME) Diabetic Shoes with 3 pairs of inserts See Rx Instructions .ROUTE .MEDSUPPLY Qty: 1 0RF Rx Instructions: As directed y [facility] albuterol sulfate [ProAir HFA] 90 mcg/actuation HFA aerosol inhaler 2 puff inhalation Q6H PRN (Reason: shortness of breath or wheezing) Qty: 6.7 2RF Advair HFA 115-21 mcg/actuation HFA aerosol inhaler 2 puff inhalation BID Qty: 8 2RF oxycodone-acetaminophen 7.5-325 mg tablet 1 tab PO TID PRN (Reason: pain) 30 Days Qty: 90 0RF Rx Instructions: may fill 30 days after last refill. folic acid 1 mg tablet 1 mg PO QAM 0RF hydralazine 25 mg tablet 12.5 mg PO TID 0RF Rx Instructions: ext med history shows last filled 12/12/20 90d/s for 25mg tid-pts daughter states the pt takes 12.5mg tid ferrous sulfate [FeroSul] 325 mg (65 mg iron) tablet 325 mg PO BID 0RF furosemide [Lasix] 40 mg tablet 40 mg PO QAM 0RF gabapentin [Neurontin] 300 mg capsule 600 mg PO BID 0RF clopidogrel [Plavix] 75 mg tablet 75 mg PO BEDTIME 0RF cholecalciferol (vitamin D3) 25 mcg (1,000 unit) capsule 25 mcg PO DAILY 0RF metolazone 2.5 mg tablet See Rx Instructions .ROUTE .COMPLEX 0RF Rx Instructions: 1 tab po every other day and 2 tabs every other day (DME) Blood Glucose Test Strip See Rx Instructions .ROUTE .MEDSUPPLY Qty: 100 0RF Rx Instructions: As directed gabapentin 800 mg tablet 800 mg PO BID Qty: 180 1RF ondansetron HCl [Zofran] 4 mg tablet 4 mg PO Q8H PRN (Reason: nausea and vomiting) Qty: 30 0RF (DME) pen needle, diabetic [1st Tier Unifine Pentips] 31 gauge x 5/16 needle See Rx Instructions .ROUTE .MEDSUPPLY Qty: 1200 2RF Rx Instructions: As directed (DME) Precision Xtra Test Strip See Rx Instructions .Route Qty: 100 0RF Rx Instructions: TEST BLOOD SUGAR TWO TIMES DAILY simvastatin 40 mg tablet See Rx Instructions .ROUTE .COMPLEX Qty: 90 3RF Dose Instruction: TAKE 1 TABLET DAILY Rx Instructions: TAKE 1 TABLET DAILY oxycodone-acetaminophen 5-325 mg tablet 1 tab PO BID PRN (Reason: pain) 30 Days Qty: 60 0RF Rx Instructions: may fill 30 days after previou refill. hydroxyzine pamoate 25 mg capsule 25 mg PO BEDTIME 0RF insulin aspart U-100 [Novolog Flexpen U-100 Insulin] 100 unit/mL (3 mL) insulin pen See Rx Instructions .ROUTE .COMPLEX 0RF Rx Instructions: sliding scale subcutaneously tid prn Lantus Solostar U-100 Insulin 100 unit/mL (3 mL) insulin pen 80 unit SUBCUT QAM 0RF clonidine HCl 0.3 mg tablet 0.3 mg PO .PRN 0RF Rx Instructions: Take as needed for systolic BP greater than 160 duloxetine 60 mg capsule,delayed release(DR/EC) 60 mg PO DAILY@12 0RF potassium chloride 10 mEq capsule, extended release 20 meq PO BID 0RF Rx Instructions: at noon and in the evening Remeron 30 mg tablet 30 mg PO BEDTIME 0RF ropinirole 0.5 mg tablet 0.5 mg PO BEDTIME 0RF Vesicare 5 mg tablet 5 mg PO QAM 0RF [place] Thyroid 15 mg tablet 30 mg PO QAM 0RF [place] Thyroid 120 mg tablet 120 mg PO QAM 0RF Rx Instructions: ext med history shows last filled 07/26/20 90d/s-pts daughter states the pt is still taking along with the 30mg qam Lumigan 0.01 % drops 1 drp ophthalmic (eye) BEDTIME 0RF Rx Instructions: each eye Eliquis 2.5 mg tablet 2.5 mg PO BID Qty: 60 5RF metoprolol tartrate 100 mg tablet 100 mg PO BID Qty: 90 3RF Referrals: Lydia Chávez FNP [Primary Care Provider] - Coding Level of Care Code ED Drying Can Worker for Dominick Baca
[2021-08-03 16:54] LABS: Basophils # 0.1 10^3/uL (0.0-0.1); Basophils % 0.6 %; Eosinophils # 0.1 10^3/uL (0.0-0.8); Hematocrit 30.9 % (37.0-47.0); Hemoglobin 9.3 g/dL (11.5-15.3); Lymphocytes # 1.8 10^3/uL (0.8-4.8); Mean Corpuscular HGB Conc 30.1 g/dL (30.0-36.0); Mean Corpuscular Hemoglobin 27.4 pg (28.0-34.0); Mean Corpuscular Volume 90.9 fl (81-99); Mean Platelet Volume 10.2 fL (7.4-10.4); Monocytes # 0.9 10^3/uL (0.2-0.9); Monocytes % 6.9 %; Neutrophils # 9.92 10^3/uL (1.8-7.7); Nucleated Red Blood Cells % 0 %; Platelet Count 348 10^3/cmm (130-400); Red Cell Distribution Width 20.3 % (12.1-15.1); White Blood Count 12.9 10^3/uL (4.0-10.0)
[2021-08-03 17:31] LABS: Alanine Aminotransferase < 5 U/L (0-33); Albumin Level 3.3 g/dL (3.5-5.2); Alkaline Phosphatase 153 IU/L (35-105); Anion Gap 17.1 (5-19); Aspartate Amino Transferase 22 U/L (0-32); Blood Urea Nitrogen 71 mg/dL (8-23); Carbon Dioxide 30 mmol/L (22-29); Chloride 98 mmol/L (98-107); Globulin 4.6 g/dL (1.3-4.6); Glucose 69 mg/dL (65-115); NT Pro B Type Natriuretic Pept 11105 pg/mL (0-450); Osmolality Calculated 313 mOsm/kg (285-295); Potassium 3.1 mmol/L (3.5-5.1); Sodium 142 mmol/L (136-145); Total Bilirubin 0.4 mg/dL (0.15-1.2); Total Protein 7.9 g/dL (6.6-8.7)
--- NOTE | 2021-08-03 18:22 | PM.CONSULT ---
Providers/Reason For Consult Consulting Physician/Specialty*: nydia agee md/ telenephrology Reason for Consult*: progressive renal failure and electrolyte abnormalities Requesting Physician: Dr Tessa Gomez Attending Physician: Gage Gomez MD Primary Care Provider: MILAGRO Kent History of Present Illness History of Present Illness Meghna Chaudhari is a 76 year old female w/ h/o PE, a fib w/ RVR, IDDM,HTN, COPD, and CKD dtage 4- baseline cr 2.5. She is here now w/ inc leg edema, weakness, nausea, SOB, JOHNSON, ortheopnea. 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 renal is called to consult, Review of Systems Narrative: weak , sob, poor vision, [place], [place], orthopnea, itching, weak, leg edema and blistering Medications/Allergies Home Medications Medication Instructions Recorded Confirmed Last Taken Type cholecalciferol (vitamin D3) 25 25 mcg PO DAILY 06/28/20 08/03/21 08/03/21 History mcg (1,000 unit) capsule clopidogrel 75 mg tablet (Plavix) 75 mg PO BEDTIME 06/28/20 08/03/21 08/02/21 History ferrous sulfate 325 mg (65 mg 325 mg PO BID 06/28/20 07/07/21 Unknown History iron) tablet (FeroSul) folic acid 1 mg tablet 1 mg PO QAM 06/28/20 08/03/21 08/03/21 History furosemide 40 mg tablet (Lasix) 40 mg PO QAM 06/28/20 07/07/21 Unknown History hydralazine 25 mg tablet 12.5 mg PO TID tab 06/28/20 07/07/21 Unknown History carbidopa 25 mg-levodopa 100 mg 2 tab PO TID #360 tab 12/07/20 07/07/21 03/31/21 08:00 Rx tablet (Sinemet) albuterol sulfate 90 mcg/actuation 2 puff INHALATION Q6H PRN #6.7 g 02/01/21 08/03/21 Unknown Rx aerosol inhaler (ProAir HFA) fluticasone propionate 115 2 puff INHALATION BID #8 g 02/02/21 07/07/21 03/31/21 08:00 Rx mcg-salmeterol 21 mcg/actuation HFA inhaler (Advair HFA) bimatoprost 0.01 % eye drops 1 drp OPHTHALMIC (EYE) BEDTIME 03/31/21 08/03/21 08/02/21 History ([place]) clonidine HCl 0.3 mg tablet 0.3 mg PO Q8H PRN 03/31/21 08/03/21 08/02/21 History duloxetine 60 mg capsule,delayed 60 mg PO DAILY@12 03/31/21 08/03/21 08/03/21 History release hydroxyzine pamoate 25 mg capsule 25 mg PO BEDTIME 03/31/21 08/03/21 08/02/21 History insulin aspart U-100 100 unit/mL See Rx Instructions .ROUTE .COMPLEX 03/31/21 08/03/21 03/31/21 08:00 History (3 mL) subcutaneous pen (Novolog 2 units Flexpen U-100 Insulin aspart) insulin glargine 100 unit/mL (3 80 unit SUBCUT QAM 03/31/21 08/03/21 08/03/21 History mL) subcutaneous pen (Lantus Solostar U-100 Insulin) potassium chloride 10 mEq 20 meq PO TID 03/31/21 08/03/21 08/03/21 History capsule,extended release ropinirole 0.5 mg tablet 0.5 mg PO BEDTIME 03/31/21 08/03/21 08/02/21 History solifenacin 5 mg tablet (Vesicare) 5 mg PO DAILY 03/31/21 08/03/21 08/03/21 History thyroid (pork) 15 mg tablet 30 mg PO QAM 03/31/21 08/03/21 08/03/21 History (Egan Thyroid) metoprolol tartrate 100 mg tablet 100 mg PO BID #90 tab 04/02/21 07/07/21 Unknown Rx gabapentin 800 mg tablet 800 mg PO BID #180 tab 04/07/21 07/07/21 Unknown Rx ondansetron HCl 4 mg tablet 4 mg PO Q8H PRN #30 tab 04/07/21 08/03/21 Unknown Rx (Zofran) oxycodone-acetaminophen 7.5 mg-325 1 tab PO TID PRN 30 Days #90 tab 07/07/21 08/03/21 08/03/21 Rx mg tablet acetaminophen 500 mg tablet 1,000 mg PO Q6H PRN 08/03/21 08/03/21 Unknown History apixaban 5 mg tablet (Eliquis) 5 mg PO BID 08/03/21 08/03/21 08/03/21 History benzonatate 100 mg capsule 100 mg PO TID PRN 08/03/21 08/03/21 08/02/21 History budesonide 0.5 mg/2 mL suspension 0.5 mg INHALATION BID PRN 08/03/21 08/03/21 08/03/21 History for nebulization calcium 600 mg capsule 600 mg PO BID 08/03/21 08/03/21 08/03/21 History calcium carbonate 1,000 mg tablet 2,000 mg PO BID 08/03/21 08/03/21 08/03/21 History camphor-menthol 0.2 %-3.5 % 1 applic TOPICAL Q4H PRN 08/03/21 08/03/21 Unknown History topical gel diphenhydramine HCl 25 mg tablet 25 mg PO Q24H PRN 08/03/21 08/03/21 Unknown History honey 100 % topical paste 1 applic TOPICAL DAILY 08/03/21 08/03/21 08/02/21 History (MediHoney (honey)) ipratropium 0.5 mg-albuterol 3 mg 3 ml INHALATION Q6H PRN 08/03/21 08/03/21 08/02/21 History (2.5 mg base)/3 mL nebulization soln metolazone 5 mg tablet 5 mg PO DAILY 08/03/21 08/03/21 08/03/21 History mirtazapine 30 mg tablet 30 mg PO BEDTIME 08/03/21 08/03/21 08/02/21 History neomycin-bacitracn Zn-polymyxn 3.5 1 applic TOPICAL DAILY 08/03/21 08/03/21 08/03/21 History mg-400 unit-5,000 unit top oint pkt (Triple Antibiotic) simvastatin 40 mg tablet 40 mg PO BEDTIME 08/03/21 08/03/21 08/02/21 History Allergies Allergy/AdvReac Type Severity Reaction Status Date / Time sulfamethoxazole Allergy Rash Verified 08/03/21 15:20 [From ] trimethoprim [From Septra] Allergy Rash Verified 08/03/21 15:20 morphine AdvReac Personality Verified 08/03/21 15:20 Change pregabalin [From Lyrica] AdvReac Loopy/Unste Verified 08/03/21 15:20 anoop PFSH Acute PFSH: Medical History Anemia in chronic illness Chronic insomnia Chronic renal insufficiency COPD (chronic obstructive pulmonary disease) Diabetes mellitus type 2, insulin dependent Diabetic neuropathy Fibromyalgia History of CVA (cerebrovascular accident) Hyperlipemia Hypertension Hypothyroidism Lumbar disc disease with radiculopathy Neuropathy Parkinson disease Post laminectomy syndrome Sciatica associated with disorder of lumbosacral spine Stage 4 chronic renal impairment associated with type 2 diabetes mellitus Uncontrolled insulin dependent diabetes mellitus Vitamin D deficiency Surgical History Hx of cholecystectomy Hx of foot surgery Hx of hysterectomy Family History Father CAD (coronary artery disease) Mother CAD (coronary artery disease) Diabetes Grandfather CAD (coronary artery disease) Diabetes Social History Smoking and tobacco status: former smoker Second hand smoke exposure: No Alcohol intake: current Alcohol intake frequency: holidays/special occasions only Alcohol type: hard liquor History of recent travel: No Vitals/I&O/Wt Last Vital Signs Temp 98.3 F 08/03/21 15:20 Pulse 61 08/03/21 17:21 Resp 16 08/03/21 17:21 BP 220/105 08/03/21 17:21 Pulse Ox 95 08/03/21 17:21 Weight last 48 hrs Weight 132.449 kg Physical Exam Narrative: swollen, sob in ER, BP elevated heent- nc/at, eomi, anicteric neck supple lungs crackles and dull bases heart reg abd soft, nt, + distended ext 3+ b/l leg edema neuro- lethargic Data : 08/03/21 16:47 08/03/21 16:47 A&P Assessment and plan (1) Acute kidney injury superimposed on CKD: 76 yr old female h/o PE, a fib, parkinsons, DM, HTN,moderate MR, charcots foot. Pt is here w/ wprsening volume overload, sob, johnson 1. CHF- mar 2021 echo-LV systolic function is normal with EF of 55-60% ?Diastolic function is indeterminate ?Moderate mitral regurgitation ?Mild tricuspid regurgitation -bnp [id number]- iv lasix 2. CKD stage 4- baseline cr 2.5 mg/d -likely DM nephropathy, htn and CRS 3. ANNALISA- from inc diuretics and CRS 4. hypokalemia from diuresis- please replete 5. met alkalosis from diuretics- check abg w/ h/o COPD and PE 6. leg edema and h/o PE- check venous dopplersl 7. anemia - monitor cbc, iron studies, spep seen and examined w/ RN- telehealth visit time spent 50 min Status: Acute Plan as above Consult Attestations Medical Necessity Statement: annalisa, chf, Time Spent in Patient Care: Greater than 35 minutes (>than 50% of time spent in counselling and/or direct pt care on unit). Coding Level of Care Code Acute Supervisor [employer] for Dominick Baca Diagnoses Acute kidney injury superimposed on CKD N17.9; N18.9
--- NOTE | 2021-08-03 18:24 | P.HP_ITS ---
Providers/Chief Complaint Admitting Physician: Gage Gomez MD Primary Care Provider: MILAGRO Kent Chief Complaint: EDEMA/ WEEPING History of Present Illness Meghna Chaudhari is a 76 year old female with a past medical history of diastolic CHF, history of CVA on Plavix, history of pulmonary embolism on Eliquis, history of atrial fibrillation on Eliquis, Toprol, history of chronic kidney disease, insulin-dependent type 2 diabetes mellitus, amputation of bilateral extremities toes, Charcot foot, bilateral extremity edema on outpatient diuretics managed to nephrology, currently under investigation for dialysis who presents [facility] for worsening bilateral from edema, weeping edema and bleeding. Patient tells me that she currently is at a retirement, she has developed increasingly worsening edema bilateral lower extremities, she has been on multiple diuretic regimen through her heating and air conditioning mechanic, her kidney function continues to worsen, condition of lower extremity edema, to her outpatient heating and air conditioning mechanic has set her up to get dialysis center dialysis catheter placement. However her appointments are quite far, and he was trying to get her a closer appointment. In the meantime she continued to develop worsening lower extremity edema, weeping edema, with bleeding, and redness erythema of her bilateral lower extremities, particularly at the shins, she is currently in lymphedema wraps she tells me that to some degree they help. But given the weeping now they are stuck on and they hurt when they are removed. She also tells me that she has edema up to the level of her belly her abdomen is also distended, she feels full with fluid, also complains of shortness of breath. Review of Systems Const: Denies: fever(s) Eyes: Denies: change in vision ENMT: Denies: nasal congestion Resp: Denies: productive cough or non-productive cough GI: Denies: nausea, vomiting, hematemesis, diarrhea, constipation, hematochezia or melena : Denies: flank pain, dysuria or urinary frequency Musc: Denies: neck pain or back pain Neuro: Denies: headache(s), dizziness or vertigo Endo: Denies: polyuria or polydipsia Medications/Allergies Home Medications Medication Instructions Recorded Confirmed Last Taken Type cholecalciferol (vitamin D3) 25 25 mcg PO DAILY 06/28/20 08/03/21 08/03/21 History mcg (1,000 unit) capsule clopidogrel 75 mg tablet (Plavix) 75 mg PO BEDTIME 06/28/20 08/03/21 08/02/21 History ferrous sulfate 325 mg (65 mg 325 mg PO BID 06/28/20 07/07/21 Unknown History iron) tablet (FeroSul) folic acid 1 mg tablet 1 mg PO QAM 06/28/20 08/03/21 08/03/21 History furosemide 40 mg tablet (Lasix) 40 mg PO QAM 06/28/20 07/07/21 Unknown History gabapentin 300 mg capsule 600 mg PO BID 06/28/20 07/07/21 Unknown History (Neurontin) hydralazine 25 mg tablet 12.5 mg PO TID tab 06/28/20 07/07/21 Unknown History carbidopa 25 mg-levodopa 100 mg 2 tab PO TID #360 tab 12/07/20 07/07/21 03/31/21 08:00 Rx tablet (Sinemet) albuterol sulfate 90 mcg/actuation 2 puff INHALATION Q6H PRN #6.7 g 02/01/21 08/03/21 Unknown Rx aerosol inhaler (ProAir HFA) fluticasone propionate 115 2 puff INHALATION BID #8 g 02/02/21 07/07/21 03/31/21 08:00 Rx mcg-salmeterol 21 mcg/actuation HFA inhaler (Advair HFA) bimatoprost 0.01 % eye drops 1 drp OPHTHALMIC (EYE) BEDTIME 03/31/21 08/03/21 08/02/21 History (Pepe) clonidine HCl 0.3 mg tablet 0.3 mg PO Q8H PRN 03/31/21 08/03/21 08/02/21 History duloxetine 60 mg capsule,delayed 60 mg PO DAILY@12 03/31/21 08/03/21 08/03/21 History release hydroxyzine pamoate 25 mg capsule 25 mg PO BEDTIME 03/31/21 08/03/21 08/02/21 History insulin aspart U-100 100 unit/mL See Rx Instructions .ROUTE .COMPLEX 03/31/21 08/03/21 03/31/21 08:00 History (3 mL) subcutaneous pen (Novolog 2 units Flexpen U-100 Insulin aspart) insulin glargine 100 unit/mL (3 80 unit SUBCUT QAM 03/31/21 08/03/21 08/03/21 History mL) subcutaneous pen (Lantus Solostar U-100 Insulin) mirtazapine 30 mg tablet (Remeron) 30 mg PO BEDTIME 03/31/21 07/07/21 Unknown History potassium chloride 10 mEq 20 meq PO TID 03/31/21 08/03/21 08/03/21 History capsule,extended release ropinirole 0.5 mg tablet 0.5 mg PO BEDTIME 03/31/21 08/03/21 08/02/21 History solifenacin 5 mg tablet (Vesicare) 5 mg PO DAILY 03/31/21 08/03/21 08/03/21 History thyroid (pork) 15 mg tablet 30 mg PO QAM 03/31/21 08/03/21 08/03/21 History ([place] Thyroid) metoprolol tartrate 100 mg tablet 100 mg PO BID #90 tab 04/02/21 07/07/21 Unknown Rx gabapentin 800 mg tablet 800 mg PO BID #180 tab 04/07/21 07/07/21 Unknown Rx ondansetron HCl 4 mg tablet 4 mg PO Q8H PRN #30 tab 04/07/21 08/03/21 Unknown Rx (Zofran) oxycodone-acetaminophen 5 mg-325 1 tab PO BID PRN 30 Days #60 tab 04/14/21 07/07/21 Unknown Rx mg tablet oxycodone-acetaminophen 7.5 mg-325 1 tab PO TID PRN 30 Days #90 tab 07/07/21 08/03/21 08/03/21 Rx mg tablet acetaminophen 500 mg tablet 1,000 mg PO Q6H PRN 08/03/21 08/03/21 Unknown History apixaban 5 mg tablet (Eliquis) 5 mg PO BID 08/03/21 08/03/21 08/03/21 History benzonatate 100 mg capsule 100 mg PO TID PRN 08/03/21 08/03/21 08/02/21 History budesonide 0.5 mg/2 mL suspension 0.5 mg INHALATION BID PRN 08/03/21 08/03/21 0 08/03/21 History for nebulization calcium 600 mg capsule 600 mg PO BID 08/03/21 08/03/21 08/03/21 History calcium carbonate 1,000 mg tablet 2,000 mg PO BID 08/03/21 08/03/21 08/03/21 History camphor-menthol 0.2 %-3.5 % 1 applic TOPICAL Q4H PRN 08/03/21 08/03/21 Unknown History topical gel diphenhydramine HCl 25 mg tablet 25 mg PO Q24H PRN 08/03/21 08/03/21 Unknown History honey 100 % topical paste 1 applic TOPICAL DAILY 08/03/21 08/03/21 08/02/21 History (MediHoney (honey)) ipratropium 0.5 mg-albuterol 3 mg 3 ml INHALATION Q6H PRN 08/03/21 08/03/21 08/02/21 History (2.5 mg base)/3 mL nebulization soln metolazone 5 mg tablet 5 mg PO DAILY 08/03/21 08/03/21 08/03/21 History mirtazapine 30 mg tablet 30 mg PO BEDTIME 08/03/21 08/03/21 08/02/21 History neomycin-bacitracn Zn-polymyxn 3.5 1 applic TOPICAL DAILY 08/03/21 08/03/21 08/03/21 History mg-400 unit-5,000 unit top oint pkt (Triple Antibiotic) simvastatin 40 mg tablet 40 mg PO BEDTIME 08/03/21 08/03/21 08/02/21 History Allergies Allergy/AdvReac Type Severity Reaction Status Date / Time sulfamethoxazole Allergy Rash Verified 08/03/21 15:20 [From Septra] trimethoprim [From Septra] Allergy Rash Verified 08/03/21 15:20 morphine AdvReac Personality Verified 08/03/21 15:20 Change pregabalin [From Lyrica] AdvReac Loopy/Unste Verified 08/03/21 15:20 anoop PFSH Acute PFSH: Medical History Anemia in chronic illness Chronic insomnia Chronic renal insufficiency COPD (chronic obstructive pulmonary disease) Diabetes mellitus type 2, insulin dependent Diabetic neuropathy Fibromyalgia History of CVA (cerebrovascular accident) Hyperlipemia Hypertension Hypothyroidism Lumbar disc disease with radiculopathy Neuropathy Parkinson disease Post laminectomy syndrome Sciatica associated with disorder of lumbosacral spine Stage 4 chronic renal impairment associated with type 2 diabetes mellitus Uncontrolled insulin dependent diabetes mellitus Vitamin D deficiency Surgical History Hx of cholecystectomy Hx of foot surgery Hx of hysterectomy Family History Father CAD (coronary artery disease) Mother CAD (coronary artery disease) Diabetes Grandfather CAD (coronary artery disease) Diabetes Social History Smoking and tobacco status: former smoker Second hand smoke exposure: No Alcohol intake: current Alcohol intake frequency: holidays/special occasions only Alcohol type: hard liquor History of recent travel: No Vitals/I&O/Wt Last Vital Signs Temp 98.3 F 08/03/21 15:20 Pulse 61 08/03/21 17:21 Resp 16 08/03/21 17:21 BP 220/105 08/03/21 17:21 Pulse Ox 95 08/03/21 17:21 Weight last 48 hrs Weight 132.449 kg Physical Exam Const: COMMON NORMALS: no acute distress and patient oriented x3 HENMT: COMMON NORMALS: normocephalic HEAD & SCALP: normocephalic Neck/C-Spine: COMMON NORMALS: no JVD Resp: COMMON NORMALS: normal respiratory effort, No retractions, No use of accessory muscles and clear to auscultation bilaterally AUSCULTATION: clear to auscultation bilaterally Cardio: COMMON NORMALS: no JVD, regular rate, regular rhythm, S1 normal heart sound present and S2 normal heart sound present RATE: regular rate RHYTHM: regular rhythm HEART SOUNDS: S1 normal heart sound present and S2 normal heart sound present GI: COMMON NORMALS: Normal to inspection, nondistended, normoactive bowel sounds present, non-tender, No hepatosplenomegaly present, no masses and no bruits INSPECTION: Yes Abdominal wall edema PALPATION: Yes Soft to palpation and Yes No hepatosplenomegaly present Extremity: COMMON NORMALS: capillary refill normal, no clubbing, cyanosis or edema and no calf tenderness NARRATIVE EXTREMITY EXAM: 3+ pitting edema bilateral extremities Pitting edema extending up to the abdomen Bilateral shins, erythema, tenderness, Patient's lymphedema wraps are stuck on, with weeping edema, bloody discharge Neuro: COMMON NORMALS: patient oriented x3 Psych: COMMON NORMALS: mental status grossly normal Data : 08/03/21 16:47 08/03/21 16:47 A&P Assessment and plan (1) Bilateral lower extremity edema: Status: Acute (2) Acute exacerbation of CHF (congestive heart failure): Status: Acute (3) Cellulitis: Status: Acute (4) Acute kidney injury superimposed on CKD: Status: Acute (5) Diabetes mellitus type 2, insulin dependent: Status: Acute (6) Vitamin D deficiency: Status: Acute Plan Bilateral lower extremity edema likely from diastolic CHF exacerbation and fluid overload -Has not responded to outpatient diuretics -We will try Bumex 1 mg every 8 hours, fluid restriction 1500 cc, monitor urine output, Place Puckett catheter -Nephrology consulted for consideration of dialysis -Dr. Marin has been counseled by the ER physician, for possible dialysis catheter placement -I have held patient's Eliquis, and Plavix for possible surgical intervention -Given her weeping edema and bleeding above by lower extreme edema hold Eliquis for now -DNR/DNI -SCDs for DVT prophylaxis contraindicated given weeping edema, Eliquis currently on hold for possible surgery, dialysis catheter placement Bilateral lower extremity cellulitis -Erythema, edema -CRP, pro-Dillon -Elevate WBC -Blood cultures, MRSA PCR -Start Zyvox, Rocephin Type 2 diabetes mellitus, continue Lantus, low-dose sliding scale A. fib, continue home metoprolol hold Eliquis History of CVA, Plavix on hold given possible surgical invention, risk of bleeding Hypertensive urgency, blood pressures are elevated in the emergency room, continue to monitor if required will start her on nitro drip History of pulmonary embolism, high probability VQ scan, cannot undergo a CT angiogram given creatinine, currently Eliquis on hold for possible surgical intervention, weeping edema, bleeding edema, will consider heparin drip based on clinical progress and possibility of surgery Chronic pain, continue home oxycodone 08/30/2024 twice daily Hypothyroidism, continue home levothyroxine Attestations Medical Necessity Statement*: Patient requires hospitalization for bilateral extremity edema, diastolic CHF exacerbation, bilateral Borden status, inpatient, greater than 2 midnights Coding Level of Care Code Acute Portable Irrigation Operator for Chg Fwd Diagnoses Bilateral lower extremity edema R60.0 Acute exacerbation of CHF (congestive heart failure) I50.9 Cellulitis L03.90 Acute kidney injury superimposed on CKD N17.9; N18.9 Diabetes mellitus type 2, insulin dependent E11.9; Z79.4 Vitamin D deficiency E55.9
--- NOTE | 2021-08-03 18:36 | USR_ITS ---
PROCEDURE INFORMATION: Exam: US Duplex Lower Extremity Veins, Bilateral Exam date and time: 08/03/2021 9:34 PM Age: 76 years old Clinical indication: Edema, localized and other: SOB; Lower extremity, bilateral; Additional info: Edema, SOB TECHNIQUE: Imaging protocol: Real-time Duplex ultrasound of the bilateral extremities with 2-D vogel scale, color Doppler flow and spectral waveform analysis with image documentation. Complete exam focused on the bilateral lower extremity veins. COMPARISON: US renal BI* [id number] 11/25/2020 2:20 PM FINDINGS: Right deep veins: Unremarkable. The common femoral, femoral, proximal profunda femoral and popliteal veins are patent without thrombus. Normal Doppler waveforms. Normal compressibility and/or augmentation response. Right superficial veins: Saphenofemoral junction is patent without thrombus. Left deep veins: Unremarkable. The common femoral, femoral, proximal profunda femoral and popliteal veins are patent without thrombus. Normal Doppler waveforms. Normal compressibility and/or augmentation response. Left superficial veins: Saphenofemoral junction is patent without thrombus. Soft tissues: Unremarkable. Other findings: Questionable blood flow seen in the left peroneal vein, however, exam is negative for gross evidence of deep venous thrombosis. US/[place] [id number] IMPRESSION: Questionable blood flow seen in the left peroneal vein, however, exam is negative for gross evidence of deep venous thrombosis.
--- NOTE | 2021-08-03 18:37 | US_ITS ---
WS: [id number] ULTRASOUND RENAL TECHNIQUE: Ultrasound examination of both kidneys. CLINICAL INFORMATION: annalisa COMPARISON: None. FINDINGS: Technically difficult study due to body habitus and cooperation RIGHT: Right kidney is normal in size and appearance. Echogenicity: Normal. Cortical thickness: 1.9 cm; Normal. Hydronephrosis: None. Perinephric fluid: None. Right kidney measures: 8.5 cm x 7.4 cm x 5.8 cm. LEFT: Hypoechoic lesion lower pole LEFT kidney measuring 1.3 x 1.1 x 1.5 cm difficult to visualize bu t appears to represent a small cyst Left kidney is normal in size and appearance. Echogenicity: Normal. Cortical thickness: 1.7 cm; Normal. Hydronephrosis: None. Perinephric fluid: None. Left kidney measures: 13.1 cm x 5.6 cm x 6.0 cm. Normal visualized aorta. Puckett catheter US/US renal BI* [id number] IMPRESSION: Limited diagnostic study due to body habitus and patient cooperatio n 1. No hydronephrosis in either kidney. 2. Puckett catheter. 3. Hypoechoic lesion lower pole LEFT kidney measuring 1.3 x 1.1 x 1.5 cm diffi cult to visualize but appears to represent a small cyst
[2021-08-03 19:16] LABS: Add Urine Culture? No; Bacteria Urine TRACE /hpf; Bilirubin Urine Neg (Negative); Blood Urine 2+ (Negative); Glucose Urine UA Norm (Normal); Ketones Urine Negative (Negative); Leukocyte Esterase Urine Negative (Negative); Nitrate Urine Negative (Negative); Protein Urine 3+ (Negative); Squamous Epithelial Cell Urine RARE /hpf (0-5); Urine Appearance Hazy (CLEAR); Urine Color Yellow (Yellow); Urobilinogen Urine Neg (Negative); WBC Urine 0-4 /hpf (0-5); pH Urine 6.5 (5-7)
--- NOTE | 2021-08-03 19:34 | USCV_ITS ---
Transthoracic Echo Meghna Chaudhari Age: 76 Gender: F : 1945 Exam Date: 08/03/2021 23:43 Ordering Phys: Gage Gomez MD Technologist: [employer] Exam Location: [facility] – [place] Indication: sob BP: 209 / 107 HR: 68 Rhythm: Sinus Technical Quality: Adequate MEASUREMENTS (Male / Female) Normal Values 2D ECHO LV Diastolic Diameter PLAX 4.8 cm 4.2 - 5.9 / 3.9 - 5.3 cm LV Systolic Diameter PLAX 3.0 cm IVS Diastolic Thickness 1.2 cm 0.6 - 1.0 / 0.6 - 0.9 cm IVS Systolic Thickness 1.3 cm LVPW Diastolic Thickness 1.1 cm 0.6 - 1.0 / 0.6 - 0.9 cm LVPW Systolic Thickness 2.9 cm LVOT Diameter 1.4 cm LV Ejection Fraction 2D Teich 66.8 % LV Ejection Fraction MOD 2C 76.0 % LV Ejection Fraction 2C AL 77.1 % LA Diameter 4.8 cm LA Width 4.7 cm LA Height 6.0 cm RA Width 4.1 cm RA Height 4.6 cm Aorta at Sinotubular Diameter 2.5 cm M-MODE Aortic Annulus Diameter 2.1 cm LA Ao Ratio MM 2.4 MV E Point Septal Separation 0.5 cm DOPPLER AV Peak Velocity 189.8 cm/s LVOT Peak Velocity 103.0 cm/s AV Area Cont Eq vti 0.6 cm squared AV Area Cont Eq pk 0.8 cm squared MV Peak Velocity 109.0 cm/s MV Area PHT 3.9 cm squared Mitral E to A Ratio 1.3 MV E' Velocity 59.5 cm/s Mitral E to MV E' Ratio 10.7 Mitral E to LV E' Lateral Ratio 8.8 Mitral E to LV E' Septal Ratio 13.7 TR Peak Velocity 262.5 cm/s TR Peak Gradient 27.6 mmHg TR Mean Velocity 176.5 cm/s TR Mean Gradient 14.6 mmHg TR Velocity Time Integral 87.5 cm Right Atrial Pressure 10.0 mmHg Pulmonary Artery Systolic Pressu 37.6 mmHg PV Peak Velocity 104.0 cm/s RV Acceleration Time 0.2 s RV Ejection Time 0.3 s RV AcT/ET 0.5 FINDINGS Left Ventricle Normal left ventricular size, systolic function and wall thickness, with no regional wall motion abnormalities. Left ventricular ejection fraction is estimated at 60 %. Grade I/IV diastolic dysfunction (abnormal relaxation filling pattern), normal to mildly elevated filling pressures. Right Ventricle Normal right ventricular size and systolic function. Mild pulmonary hypertension, RVSP 37.6 mmHg. Right Atrium Mildly increased right atrial size. Left Atrium Mildly increased left atrial size. Mitral Valve Structurally normal mitral valve. Mild mitral annular calcification. Mild mitral valve regurgitation. Aortic Valve Structurally normal trileaflet aortic valve. No aortic valve stenosis. No aortic valve regurgitation. Tricuspid Valve Structurally normal tricuspid valve. Severe tricuspid valve regurgitation. Pulmonic Valve Pulmonic valve not well visualized. Pericardium Normal pericardium without effusion. Aorta Normal ascending aorta dimension. CONCLUSIONS Normal left ventricular size, systolic function and wall thickness, with no regional wall motion abnormalities. Left ventricular ejection fraction is estimated at 60 %. Grade I/IV diastolic dysfunction (abnormal relaxation filling pattern), normal to mildly elevated filling pressures. Normal right ventricular size and systolic function. Mild pulmonary hypertension, RVSP 37.6 mmHg. Mildly increased right atrial size. Mildly increased left atrial size. Structurally normal mitral valve. Mild mitral annular calcification. Mild mitral valve regurgitation. Structurally normal tricuspid valve. Severe tricuspid valve regurgitation. Dr. Daniel Rizzo MD (Electronically Signed) Final Date: 04 August 2021 16:02 S
[2021-08-03] MEDS: FUROsemide 10 mg/mL SDV 4mL 40 MG IVP (20:09)
[2021-08-03] MEDS: potassium chloride ER 20 mEq Tablet 40 MEQ PO (20:10)
[2021-08-03] MEDS: cefTRIAXone 1,000 MG in sodium chloride 0.9% (plus) 50 ML 100 MG IV (20:27)
[2021-08-03] MEDS: acetaminophen 325 mg Tablet 650 MG PO (20:31)
[2021-08-03] MEDS: hyDRALAzine 25 mg Tablet 12.5 MG PO (20:32)
[2021-08-03] MEDS: ropinirole 0.25 mg Tablet 0.5 MG PO (20:33)
[2021-08-03] MEDS: pantoprazole 40 mg SDV IVP (20:39)
[2021-08-03] MEDS: atorvastatin 40 mg Tablet 20 MG PO (20:44)
[2021-08-03 20:46] LABS: ABG PCO2 47.6 mmHg (35-45); ABG PH Result 7.43 (7.35-7.45); Alveolar-Arterial Oxygen Gradi 2.6 mmHg (5-10); Arterial Blood Gas Hematocrit 28.9 % (37-47); Base Excess ABG 6.6 mmol/L (-2.0-2.0); Blood Gas Operator Identificat JB; Blood Gas Sample Site Brachial, right; Blood Gas Sample Type Arterial; Carboxyhemoglobin 0.8 %THgb (0.4-20.1); HCO3 ABG 31.8 mmol/L (22-26); HGB O2 Sat 91.2 % (95-100); Methemoglobin 0.8 % (0.4-1.5); Oxygen Device ROOM AIR; Oxygen Saturation ABG 92.7; PO2 ABG 69.7 mmHg (80.0-100.0); Potassium Level - ABG 3.4 mmol/L (3.5-5.0); Total Hemoglobin 9.4 g/dL (12-16)
[2021-08-03] MEDS: bumetanide 0.25 mg/mL SDV 4 mL 1 MG IVP (20:52)
[2021-08-03] MEDS: linezolid premix 600 MG/300 ML PREMIX 300 MG IV (20:53)
[2021-08-03 21:08] LABS: INR 1.26 (0.8-1.2)
[2021-08-03 21:19] LABS: Hepatitis C Virus Antibody Non-Reactive (Nonreactive)
[2021-08-03 21:21] LABS: Procalcitonin 0.14 ng/mL (0-0.5); Thyroid Stimulating Hormone 38.59 uIU/mL (0.27-4.20)
[2021-08-03 21:31] LABS: Uric Acid 10.6 mg/dL (2.4-5.7)
--- NOTE | 2021-08-03 21:46 | PC.NURSE ---
1999 -- IV to right upper arm that was placed in ED unable to flush and obtain blood return. Removed IV. Started new 20G IV to Right lower forearm x 1 attempt.
[2021-08-03 21:54] LABS: Glucose Point of Care 144 mg/dL (70-110)
[2021-08-03] MEDS: diphenhydrAMINE 50 mg/mL SDV 1mL 25 MG IVP (23:58)
[2021-08-04] VITALS (28 sets, daily range): BP systolic 113–220; BP diastolic 63–158; PULSE 56–66; RESP 16–24; TEMP 36.4–37.1; O2SAT 72–98
[2021-08-04] MEDS: oxyCODONE-APAP 5-325 mg Tablet 1 TAB PO ×3 (00:33→11:17)
[2021-08-04] MEDS: bumetanide 0.25 mg/mL SDV 4 mL 1 MG IVP ×3 (03:15→22:00)
[2021-08-04 04:25] LABS: Basophils # 0.1 10^3/uL (0.0-0.1); Basophils % 0.6 %; Eosinophils # 0.2 10^3/uL (0.0-0.8); Eosinophils % 1.9 %; Hematocrit 27.8 % (37.0-47.0); Hemoglobin 8.3 g/dL (11.5-15.3); Lymphocytes # 1.5 10^3/uL (0.8-4.8); Lymphocytes % 12.8 %; Mean Corpuscular HGB Conc 29.9 g/dL (30.0-36.0); Mean Corpuscular Volume 93.9 fl (81-99); Mean Platelet Volume 10.3 fL (7.4-10.4); Monocytes # 0.9 10^3/uL (0.2-0.9); Monocytes % 8.1 %; Neutrophils # 8.63 10^3/uL (1.8-7.7); Neutrophils % 76.2 %; Nucleated Red Blood Cells % 0 %; Platelet Count 313 10^3/cmm (130-400); Red Blood Count 2.96 10^6/uL (4.1-5.3); Red Cell Distribution Width 20.2 % (12.1-15.1); White Blood Count 11.3 10^3/uL (4.0-10.0)
[2021-08-04 04:56] LABS: Alanine Aminotransferase < 5 U/L (0-33); Albumin Level 2.8 g/dL (3.5-5.2); Alkaline Phosphatase 129 IU/L (35-105); Anion Gap 16.9 (5-19); Aspartate Amino Transferase 18 U/L (0-32); Blood Urea Nitrogen 70 mg/dL (8-23); Calcium 7.8 mg/dL (8.5-10.5); Carbon Dioxide 30 mmol/L (22-29); Chloride 100 mmol/L (98-107); Globulin 3.2 g/dL (1.3-4.6); Glucose 72 mg/dL (65-115); Magnesium 1.6 mg/dL (1.7-2.3); Osmolality Calculated 317 mOsm/kg (285-295); Phosphorus 5.8 mg/dL (2.5-4.5); Sodium 144 mmol/L (136-145); Thyroid Stimulating Hormone 28.43 uIU/mL (0.27-4.20); Total Bilirubin 0.3 mg/dL (0.15-1.2)
[2021-08-04 05:01] LABS: 25 Hydroxy Vitamin D 28 ng/mL (30-100); Creatine Phosphokinase 67 U/L (26-192); Ferritin 29 ng/mL (15-150); Iron 34 ug/dL (37-145); NT Pro B Type Natriuretic Pept 10502 pg/mL (0-450); Percent Saturation 11.8 % (20-50); Total Iron Binding Capacity 287 mcg/dl; Unsaturated Iron Binding 253 ug/dL (112-347)
[2021-08-04 05:13] LABS: Parathyroid Hormone 279.5 pg/mL (15-65)
[2021-08-04 05:19] LABS: Calcium 7.8 mg/dL (8.5-10.5)
[2021-08-04 05:36] LABS: Potassium 2.9 mmol/L (3.5-5.1)
[2021-08-04] MEDS: acetaminophen 325 mg Tablet 650 MG PO ×2 (05:52→16:18)
[2021-08-04] MEDS: thyroid 60 mg Tablet 150 MG PO (05:53)
[2021-08-04] MEDS: folic acid 1 mg Tablet PO (05:53)
[2021-08-04] MEDS: diphenhydrAMINE 50 mg/mL SDV 1mL 25 MG IVP (05:55)
[2021-08-04] MEDS: potassium chloride ER 20 mEq Tablet 40 MEQ PO ×2 (06:38→12:52)
--- NOTE | 2021-08-04 06:40 | PC.NURSE ---
Dr. Marin to bedside, notified that Dr. Golden stated that there is no need for emergent dialysis today. Dr. Marin reports that he will talk to the other doctors and the family later today.
--- NOTE | 2021-08-04 06:56 | P.PN_ITS ---
Subjective Subjective: feels better. still swollen. excellent uop. no n/v/f/c/egan/d Medications: Reviewed: Yes Medication Review Details: Current Medications Acetaminophen (Acetaminophen 325 Mg Tablet) 650 mg PO Q6H PRN PRN Reason: Mild/Mod Pain Or Temp >/= 101 Last Admin: 08/04/21 05:52 Dose: 650 mg Documented by: Albuterol/Ipratropium (Ipratropium-Albuterol 3 Ml Neb) 3 ml INHALATION Q6H PRN PRN Reason: SHORTNESS OF BREATH Atorvastatin Calcium (Atorvastatin 40 Mg Tablet) 20 mg PO BEDTIME [facility] Last Admin: 08/03/21 20:44 Dose: 20 mg Documented by: Bumetanide (Bumetanide 0.25 Mg/Ml Sdv 4 Ml) 1 mg IVP Q8H [facility] Last Admin: 08/04/21 03:15 Dose: 1 mg Documented by: Dextrose (Dextrose 50% Syringe 50 Ml) 25 ml IVP ONCE PRN; Protocol PRN Reason: hypoglycemia protocol Dextrose (Dextrose 50% Syringe 50 Ml) 50 ml IVP PRN PRN; Protocol PRN Reason: hypoglycemia protocol Diphenhydramine HCl (Diphenhydramine 50 Mg/Ml Sdv 1ml) 25 mg IVP Q6H PRN PRN Reason: ITCHING Last Admin: 08/04/21 05:55 Dose: 25 mg Documented by: Duloxetine HCl (Duloxetine 60 Mg Capsule) 60 mg PO DAILY@12 BILLIE Ferrous Sulfate (Ferrous Sulfate Ec 325 Mg Tablet) 325 mg PO BID [facility] Folic Acid (Folic Acid 1 Mg Tablet) 1 mg PO QAM [facility] Last Admin: 08/04/21 05:53 Dose: 1 mg Documented by: Gabapentin (Gabapentin 300 Mg Capsule) 600 mg PO BID [facility] Glucagon (Glucagon 1 Mg/Ml Inj 1 Ml) 1 mg IM ONCE PRN; Protocol PRN Reason: Adult Acute Hypoglycemia Prot. Hydralazine HCl (Hydralazine 25 Mg Tablet) 12.5 mg PO TID [facility] Last Admin: 08/03/21 20:32 Dose: 12.5 mg Documented by: Dextrose (D5w) 500 mls @ 100 mls/hr IV ONCE PRN; Protocol PRN Reason: Adult Acute Hypoglycemia Prot Linezolid (Zyvox Premix) 600 mg in 300 mls @ 300 mls/hr IV Q12H [facility]; Protocol Last Infusion: 08/03/21 21:53 Dose: Infused Documented by: Ceftriaxone Sodium 1,000 mg/ (Sodium Chloride) 50 mls @ 100 mls/hr IV Q24H [facility]; Protocol Last Infusion: 08/03/21 21:00 Dose: Infused Documented by: Magnesium Sulfate 1 gm/ Sodium (Chloride) 52 mls @ 104 mls/hr IV ONCE ONE Stop: 08/04/21 07:29 Insulin Glargine (Insulin Glargine 100 Units/1 Ml) 40 unit SUBCUT QAM [facility] Last Admin: 08/04/21 06:04 Dose: Not Given Documented by: Insulin Human Lispro (Insulin Lispro 100 Unit/1 Ml) 0 unit SUBCUT TIDWM [facility]; Protocol Metoprolol Tartrate (Metoprolol Tartrate 50 Mg Tablet) 100 mg PO BID [facility] Multivitamins (O-Pqtienq-Kcrydfz C Tablet) 1 each PO DAILY [facility] Ondansetron HCl (Ondansetron 2 Mg/Ml Sdv 2 Ml) 4 mg IVP Q8H PRN PRN Reason: vomiting, or N/V if npo Oxycodone/Acetaminophen (Oxycodone-Apap 5-325 Mg Tablet) 1 tab PO BID PRN PRN Reason: MODERATE PAIN Last Admin: 08/04/21 00:33 Dose: 1 tab Documented by: Pantoprazole Sodium (Pantoprazole 40 Mg Sdv) 40 mg IVP Q24H [facility] Last Admin: 08/03/21 20:39 Dose: 40 mg Documented by: Pneumococcal Polyvalent Vaccine (Pneumococcal (23 Valent) Sdv 0.5 Ml) 0.5 ml IM .ONCE ONE Stop: 08/04/21 10:01 Potassium Chloride (Potassium Chloride Er 20 Meq Tablet) 40 meq PO Q6H [facility]ILL[facility] Stop: 08/04/21 13:01 Last Admin: 08/04/21 06:38 Dose: 40 meq Documented by: Ropinirole HCl (Ropinirole 0.25 Mg Tablet) 0.5 mg PO BEDTIME [facility] Last Admin: 08/03/21 20:33 Dose: 0.5 mg Documented by: Thyroid (Thyroid 60 Mg Tablet) 150 mg PO QAM [facility] Last Admin: 08/04/21 05:53 Dose: 150 mg Documented by: Vitals/I&O/Wt Last Vital Signs Temp 98.4 F 08/04/21 04:00 Pulse 62 08/04/21 04:00 Resp 17 08/04/21 04:00 BP 113/89 08/04/21 04:00 Pulse Ox 94 08/04/21 04:00 08/03/21 08/03/21 08/04/21 14:59 22:59 06:59 Intake Total 500 / 500 100 / 600 Output Total 1000 / 1000 2200 / 3200 Balance -500 / -500 -2100 / -2600 Weight last 48 hrs Weight 136.486 kg Weight 138.709 kg Weight 132.449 kg Physical Exam Narrative: swollen, low nc 02, NARD heent- nc/at, eomi, anicteric neck supple lungs- improved air movement b/l - still w/ crackles heart reg+SHAHRAM, + s1 s2 abd soft, nt, + distended ext improvong 2+ b/l leg edema neuro- more awake, alert, oriented and interactive Urinary Catheter Management: Puckett: Cath Placed During This Visit: yes Reason for Continuing Indwelling Catheter: Accurate Measurement of Urinary Output in Critically Ill Patients Urinary Catheter Date of Insertion: 08/03/21 Urinary Catheter Time of Insertion: 19:01 Data : 08/04/21 03:53 08/04/21 03:53 Micro: Microbiology 08/03/21 20:34 Blood Culture - Preliminary Blood SPECIMEN COLLECTED 08/03/21 20:39 Blood Culture - Preliminary Blood SPECIMEN COLLECTED A&P Assessment and plan (1) Acute kidney injury superimposed on CKD: 76 yr old female h/o PE, a fib, parkinsons, DM, HTN,moderate MR, charcots foot. Pt is here w/ wprsening volume overload, sob, johnson 1. CHF- mar 2021 echo-LV systolic function is normal with EF of 55-60% ?Diastolic function is indeterminate ?Moderate mitral regurgitation ?Mild tricuspid regurgitation -bnp [id number]- mildly improved on- iv loop diuretic. i will stop lasix as also on bumex 2. 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 ALBINO- from inc diuretics and CRS -no emergent need for dialysis- monitor uop, weight, pulm status, and chem 7 4. hypokalemia and hypomagnesemia- from diuresis- please replete 5. met alkalosis from diuretics- check abg w/ h/o COPD and PE 6. leg edema and h/o PE- venous dopplers - no dvt 6b. Q leg cellulitis- abx per medicine 7. anemia - monitor cbc, iron sat11.8%, ferr 29- iv iron and consider GI eval -await, spep 8. DM per medicine 9. a fib -keep k >, mag > 1.8 10 . hypernatremia from loop diuretic. encourage water 11. uric acid 10. 6 from diuretics- give allopurinol 12. hypothyroidsim- tsh 28= 38 please give and adjust levothyroxine 13. renal - bone - mineral- metabolism- pth 279. ca 7.8, vit d -28- give vit d and calcitriol 14. dec gabapentin dose in half w/ CKD stage 4-5 15. bp much improved- dec meds seen and examined w/ RN- telehealth visit time spent >35 min Status: Acute Plan as above Attestations Medical Necessity Statement*: chf, electrolyte abnormalities, edema, albino on ckd Time Spent in Patient Care: Greater than 35 minutes (>than 50% of time spent in counselling and/or direct pt care on unit) . Coding Level of Care Code Acute Safety Specialist for [facility]ick [facility] Diagnoses Acute kidney injury superimposed on CKD N17.9; N18.9
[2021-08-04] MEDS: linezolid premix 600 MG/300 ML PREMIX 300 MG IV ×2 (08:05→22:59)
[2021-08-04 08:27] LABS: Glucose Point of Care 76 mg/dL (70-110)
[2021-08-04] MEDS: b-complex-vitamin c Tablet 1 EACH PO (08:31)
[2021-08-04] MEDS: gabapentin 300 mg Capsule PO ×2 (08:31→17:23)
[2021-08-04] MEDS: metoprolol tartrate 50 mg Tablet 100 MG PO ×2 (08:31→17:24)
[2021-08-04] MEDS: magnesium oxide 400 mg tablet PO ×2 (08:31→17:23)
[2021-08-04] MEDS: diphenhydrAMINE cream 30 gm 1 APPLIC TOPICAL ×2 (09:23→22:41)
[2021-08-04] MEDS: ipratropium-albuterol 3 mL Neb INHALATION ×2 (10:09→20:42)
[2021-08-04] MEDS: cloNIDine 0.1 mg Tablet PO (10:47)
[2021-08-04] MEDS: ferric gluconate 125 MG in sodium chloride 0.9% (100 ml) 100 ML 110 MG IV (11:18)
[2021-08-04] MEDS: hyDRALAzine 25 mg Tablet PO ×3 (12:14→22:39)
[2021-08-04] MEDS: duloxetine 60 mg Capsule PO (12:18)
[2021-08-04] MEDS: heparin drip 25,000 UNIT/500 ML PREMIX 38.22 UNIT IV (12:22)
[2021-08-04 12:42] LABS: Glucose Point of Care 155 mg/dL (70-110)
[2021-08-04] MEDS: insulin lispro 100 unit/1 mL SUBCUT ×2 (12:50→17:44)
[2021-08-04] MEDS: pneumococcal (23 valent) SDV 0.5 mL IM (13:41)
[2021-08-04 14:49] LABS: Anion Gap 15.5 (5-19); Blood Urea Nitrogen 69 mg/dL (8-23); Calcium 8.2 mg/dL (8.5-10.5); Carbon Dioxide 32 mmol/L (22-29); Chloride 98 mmol/L (98-107); Glucose 160 mg/dL (65-115); Osmolality Calculated 318 mOsm/kg (285-295); Potassium 3.5 mmol/L (3.5-5.1); Sodium 142 mmol/L (136-145)
[2021-08-04] MEDS: cloNIDine 0.1 mg Tablet 0.2 MG PO ×2 (14:57→20:10)
[2021-08-04] MEDS: amlodipine 10 mg Tablet PO (14:58)
[2021-08-04] MEDS: minoxidil 10 mg Tablet 5 MG PO (14:59)
--- NOTE | 2021-08-04 15:04 | P.PN_ITS ---
Subjective Subjective: Patient was seen multiple times throughout the morning, family members at bedside, she feels significantly better, over 2 L urine output overnight, her creatinine has gone up to 3.4, she feels a lot better is breathing a lot better, up into a chair, Vitals/I&O/Wt Last Vital Signs Temp 98.2 F 08/04/21 12:00 Pulse 56 L 08/04/21 12:00 Resp 18 08/04/21 12:00 BP 195/86 08/04/21 14:57 Pulse Ox 85 L 08/04/21 12:00 08/04/21 08/04/21 08/04/21 06:59 14:59 22:59 Intake Total 100 / 600 400 / 400 Output Total 2200 / 3200 1200 / 1200 Balance -2100 / -2600 -800 / -800 Weight last 48 hrs Weight 136.486 kg Weight 138.709 kg Weight 132.449 kg Physical Exam Const: COMMON NORMALS: no acute distress and patient oriented x3 Resp: COMMON NORMALS: normal respiratory effort, No retractions, No use of accessory muscles and clear to auscultation bilaterally AUSCULTATION: clear to auscultation bilaterally Cardio: COMMON NORMALS: regular rate, regular rhythm, S1 normal heart sound present and S2 normal heart sound present RATE: regular rate RHYTHM: regular rhythm HEART SOUNDS: S1 normal heart sound present and S2 normal heart sound present GI: COMMON NORMALS: Normal to inspection, nondistended, normoactive bowel sounds present, Soft to palpation, non-tender and No hepatosplenomegaly present PALPATION: Yes Soft to palpation and Yes No hepatosplenomegaly present Extremity: NARRATIVE EXTREMITY EXAM: Bilateral extremity, 2+ pitting edema, multiple superficial ulcerations, from ruptured blisters, throughout lower extremities Neuro: COMMON NORMALS: patient oriented x3 Psych: COMMON NORMALS: mental status grossly normal Urinary Catheter Management: Puckett: Cath Placed During This Visit: yes Reason for Continuing Indwelling Catheter: Accurate Measurement of Urinary Output in Critically Ill Patients Urinary Catheter Date of Insertion: 08/03/21 Urinary Catheter Time of Insertion: 19:01 Data : 08/04/21 03:53 08/04/21 14:00 Micro: Microbiology 08/03/21 20:25 MRSA Culture - Final Nose 08/03/21 20:34 Blood Culture - Preliminary Blood SPECIMEN COLLECTED 08/03/21 20:39 Blood Culture - Preliminary Blood SPECIMEN COLLECTED A&P Assessment and plan (1) Bilateral lower extremity edema: Status: Acute (2) Acute exacerbation of CHF (congestive heart failure): Status: Acute (3) Cellulitis: Status: Acute (4) Acute kidney injury superimposed on CKD: Status: Acute (5) Diabetes mellitus type 2, insulin dependent: Status: Acute (6) Vitamin D deficiency: Status: Acute Plan Bilateral lower extremity edema likely from diastolic CHF exacerbation and fluid overload -Has not responded to outpatient diuretics -Responding well to diuresis, creatinine 3.4, over 4 L out -Continue Bumex 1 mg every 8 hours, fluid restriction 1500 cc, monitor urine output, Place Puckett catheter -Nephrology consulted for consideration of dialysis, for now no plans on dialysis -Dr. Marin has been counseled by the ER physician, for now no plans on dialysis -Continue to hold Plavix -Start heparin drip -DNR/DNI -SCDs for DVT prophylaxis, heparin for DVT prophylaxis Bilateral lower extremity cellulitis -Erythema, edema -Blood cultures, MRSA PCR -Start Zyvox, Rocephin Type 2 diabetes mellitus, continue Lantus, low-dose sliding scale A. fib, continue home metoprolol, heparin drip History of CVA, Plavix on hold given possible surgical invention, risk of bleeding during surgery, on heparin drip Hypertensive urgency, blood pressures are elevated in the emergency room, continues to have elevated blood pressures -Clonidine 1 twice daily -Hydralazine 25 4 times daily -Add minoxidil History of pulmonary embolism, high probability VQ scan, could not undergo a CT angiogram given creatinine, was on Eliquis, hold for now, on heparin drip Chronic pain, continue home oxycodone 10-325 3 times daily Hypothyroidism elevated TSH, check free T3, free T4, continue home levothyroxine for now Attestations Medical Necessity Statement*: Patient requires hospitalization for fluid overload, ALBINO Coding Level of Care Code 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
[2021-08-04 15:20] LABS: T3 Free 2.7 PG/ML (2.0-4.4)
[2021-08-04 17:31] LABS: Glucose Point of Care 153 mg/dL (70-110)
--- NOTE | 2021-08-04 18:18 | PC.NURSE ---
SHift SUmmary: Uneventful shift patient rested in bed throughout the day. Has voided 1800 mL and has adhered to her fluid restriction. 1000mL of intake during day shift and will have 200mL for night. Patient transfers by herself up to the chair, but requires standby assistance. Started on heparin drip today. Frequently complains of pain related to neuropathy and statis ulcers and it has been tolerable when controlled with gabapentin and oxycodone.
--- NOTE | 2021-08-04 18:46 | P.CONIM_ITS ---
Providers/Reason For Consult Consulting Physician/Specialty*: Pablo Marin MD Reason for Consult*: Hemodialysis access Requesting Physician: Dr. 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 Patient was admitted to the hospital service because of increased edema of the lower extremities with weeping and General surgery was consulted for potential placement of tunneled hemodialysis catheter, patient was seen and evaluated in the ICU bed 12 Review of Systems General: Reports: 10 or more systems reviewed and unremarkable except in HPI and below Medications/Allergies Home Medications Medication Instructions Recorded Confirmed Last Taken Type cholecalciferol (vitamin D3) 25 25 mcg PO DAILY 06/28/20 08/03/21 08/03/21 History mcg (1,000 unit) capsule clopidogrel 75 mg tablet (Plavix) 75 mg PO BEDTIME 06/28/20 08/03/21 08/02/21 History ferrous sulfate 325 mg (65 mg 325 mg PO BID 06/28/20 08/03/21 08/03/21 History iron) tablet (FeroSul) folic acid 1 mg tablet 1 mg PO QAM 06/28/20 08/03/21 08/03/21 History furosemide 40 mg tablet (Lasix) 40 mg PO BID 06/28/20 08/03/21 08/03/21 History hydralazine 25 mg tablet 12.5 mg PO TID tab 06/28/20 08/03/21 08/03/21 History carbidopa 25 mg-levodopa 100 mg 2 tab PO TID #360 tab 12/07/20 08/03/21 08/03/21 Rx tablet (Sinemet) albuterol sulfate 90 mcg/actuation 2 puff INHALATION Q6H PRN #6.7 g 02/01/21 08/03/21 Unknown Rx aerosol inhaler (ProAir HFA) fluticasone propionate 115 2 puff INHALATION BID #8 g 10/06/21 04/06/22 04/06/22 Rx mcg-salmeterol 21 mcg/actuation HFA inhaler (Advair HFA) bimatoprost 0.01 % eye drops 1 drp OPHTHALMIC (EYE) BEDTIME 03/31/21 08/03/21 08/02/21 History (Lumigan) clonidine HCl 0.3 mg tablet 0.3 mg PO Q8H PRN 03/31/21 08/03/21 08/02/21 History duloxetine 60 mg capsule,delayed 60 mg PO DAILY@12 03/31/21 08/03/21 08/03/21 History release hydroxyzine pamoate 25 mg capsule 25 mg PO BEDTIME 03/31/21 08/03/21 08/02/21 History insulin aspart U-100 100 unit/mL See Rx Instructions .ROUTE .COMPLEX 03/31/21 08/03/21 03/31/21 08:00 History (3 mL) subcutaneous pen (Novolog 2 units Flexpen U-100 Insulin aspart) insulin glargine 100 unit/mL (3 80 unit SUBCUT QAM 03/31/21 08/03/21 08/03/21 History mL) subcutaneous pen (Lantus Solostar U-100 Insulin) potassium chloride 10 mEq 20 meq PO TID 03/31/21 08/03/21 08/03/21 History capsule,extended release ropinirole 0.5 mg tablet 0.5 mg PO BEDTIME 03/31/21 08/03/21 08/02/21 History solifenacin 5 mg tablet (Vesicare) 5 mg PO DAILY 03/31/21 08/03/21 08/03/21 History thyroid (pork) 15 mg tablet 30 mg PO QAM 03/31/21 08/03/21 08/03/21 History ([facility] Thyroid) metoprolol tartrate 100 mg tablet 100 mg PO BID #90 tab 04/02/21 08/03/21 08/03/21 Rx gabapentin 800 mg tablet 800 mg PO BID #180 tab 04/07/21 08/03/21 08/03/21 Rx ondansetron HCl 4 mg tablet 4 mg PO Q8H PRN #30 tab 04/07/21 08/03/21 Unknown Rx (Zofran) oxycodone-acetaminophen 7.5 mg-325 1 tab PO TID PRN 30 Days #90 tab 07/07/2110/1908/03/21 Rx mg tablet acetaminophen 500 mg tablet 1,000 mg PO Q6H PRN 08/03/21 08/03/21 Unknown History apixaban 5 mg tablet (Eliquis) 5 mg PO BID 08/03/21 08/03/21 08/03/21 History benzonatate 100 mg capsule 100 mg PO TID PRN 08/03/21 08/03/21 08/02/21 History budesonide 0.5 mg/2 mL suspension 0.5 mg INHALATION BID PRN 08/03/21 08/03/21 08/03/21 History for nebulization calcium 600 mg capsule 600 mg PO BID 08/03/21 08/03/21 08/03/21 History calcium carbonate 1,000 mg tablet 2,000 mg PO BID 08/03/21 08/03/21 08/03/21 History camphor-menthol 0.2 %-3.5 % 1 applic TOPICAL Q4H PRN 08/03/21 08/03/21 Unknown History topical gel diphenhydramine HCl 25 mg tablet 25 mg PO Q24H PRN 08/03/21 08/03/21 Unknown History honey 100 % topical paste 1 applic TOPICAL DAILY 08/03/21 08/03/21 08/02/21 History (MediHoney (honey)) ipratropium 0.5 mg-albuterol 3 mg 3 ml INHALATION Q6H PRN 08/03/21 08/03/21 08/02/21 History (2.5 mg base)/3 mL nebulization soln metolazone 5 mg tablet 5 mg PO DAILY 08/03/21 08/03/21 08/03/21 History mirtazapine 30 mg tablet 30 mg PO BEDTIME 08/03/21 08/03/21 08/02/21 History neomycin-bacitracn Zn-polymyxn 3.5 1 applic TOPICAL DAILY 08/03/21 08/03/21 08/03/21 History mg-400 unit-5,000 unit top oint pkt (Triple Antibiotic) simvastatin 40 mg tablet 40 mg PO BEDTIME 08/03/21 08/03/21 08/02/21 History Allergies Allergy/AdvReac Type Severity Reaction Status Date / Time sulfamethoxazole Allergy Rash Verified 08/04/21 18:48 [From Decra] trimethoprim [From Septra] Allergy Rash Verified 08/04/21 18:48 morphine AdvReac Personality Verified 08/04/21 18:48 Change pregabalin [From Lyrica] AdvReac Loopy/Unste Verified 08/04/21 18:48 anoop Current Medications Generic Name Dose Route Start Last Admin Trade Name Freq PRN Reason Stop Dose Admin Acetaminophen 650 mg 08/03/21 19:34 08/04/21 16:18 Acetaminophen 325 Mg Tablet PO 650 mg Q6H PRN Administration Mild/Mod Pain Or Temp >/= 101 Albuterol/Ipratropium 3 ml 08/03/21 20:41 08/04/21 10:09 Ipratropium-Albuterol 3 Ml Neb INHALATION 3 ml Q6H PRN Administration SHORTNESS OF BREATH Amlodipine Besylate 10 mg 08/04/21 14:30 08/04/21 14:58 Amlodipine 10 Mg Tablet PO 10 mg Q24H BILLIE Administration Atorvastatin Calcium 20 mg 08/03/21 21:00 08/03/21 20:44 Atorvastatin 40 Mg Tablet PO 20 mg BEDTIME [facility] Administration Bumetanide 1 mg 08/03/21 19:34 08/04/21 12:14 Bumetanide 0.25 Mg/Ml Sdv 4 Ml IVP 1 mg Q8H [facility]ILL[facility] Administration Clonidine HCl 0.2 mg 08/04/21 14:29 08/04/21 14:57 Clonidine 0.1 Mg Tablet PO 0.2 mg BID@0900,2100 BILLIE Administration Diphenhydramine HCl 25 mg 08/03/21 23:50 08/04/21 05:55 Diphenhydramine 50 Mg/Ml Sdv 1ml IVP 25 mg Q6H PRN Administration ITCHING Duloxetine HCl 60 mg 08/04/21 12:00 08/04/21 12:18 Duloxetine 60 Mg Capsule PO 60 mg DAILY@12 BILLIE Administration Folic Acid 1 mg 08/04/21 06:00 08/04/21 05:53 Folic Acid 1 Mg Tablet PO 1 mg QAM [facility] Administration Gabapentin 300 mg 08/04/21 09:00 08/04/21 17:23 Gabapentin 300 Mg Capsule PO 300 mg BID [facility] Administration Hydralazine HCl 25 mg 08/04/21 11:00 08/04/21 16:15 Hydralazine 25 Mg Tablet PO 25 mg Q6H [facility] Administration Linezolid 600 mg in 300 mls @ 300 mls/hr 08/03/21 20:00 08/04/21 08:05 Zyvox Premix IV 300 mls/hr Q12H [facility] Administration Protocol Ceftriaxone Sodium 1,000 mg/ 50 mls @ 100 mls/hr 08/03/21 20:00 08/03/21 21:00 Sodium Chloride IV Infused Q24H [facility] Infusion Protocol Ferric Sodium Gluconate 125 mg 110 mls @ 110 mls/hr 08/04/21 09:00 08/04/21 11:18 / Sodium Chloride IV 08/11/21 09:59 110 mls/hr Q24H [facility] Administration Heparin Sodium/Sodium Chloride 25,000 unit in 500 mls @ 0 mls/hr 08/04/21 08:30 08/04/21 12:22 Heparin Drip IV 14 unit/kg/hr .Q0M BILLIE 38.22 mls/hr Administration Protocol Per Protocol Insulin Glargine 40 unit 08/04/21 06:00 08/04/21 06:04 Insulin Glargine 100 Units/1 Ml SUBCUT Not Given QAM [facility] Insulin Human Lispro 0 unit 08/04/21 08:00 08/04/21 17:44 Insulin Lispro 100 Unit/1 Ml SUBCUT 2 unit TIDWM [facility] Administration Protocol Magnesium Oxide 400 mg 08/04/21 09:00 08/04/21 17:23 Magnesium Oxide 400 Mg Tablet PO 400 mg BID [facility] Administration Metoprolol Tartrate 100 mg 08/04/21 09:00 08/04/21 17:24 Metoprolol Tartrate 50 Mg Tablet PO 100 mg BID [facility] Administration Minoxidil 5 mg 08/04/21 14:30 08/04/21 14:59 Minoxidil 10 Mg Tablet PO 5 mg Q24H [facility] Administration Multivitamins 1 each 08/04/21 09:00 08/04/21 08:31 W-Gehdpum-Ocdjgwc C Tablet PO 1 each DAILY [facility] Administration Pantoprazole Sodium 40 mg 08/03/21 19:34 08/03/21 20:39 Pantoprazole 40 Mg Sdv IVP 40 mg Q24H [facility] Administration Ropinirole HCl 0.5 mg 08/03/21 21:00 08/03/21 20:33 Ropinirole 0.25 Mg Tablet PO 0.5 mg BEDTIME [facility] Administration Thyroid 150 mg 08/04/21 06:00 08/04/21 05:53 Thyroid 60 Mg Tablet PO 150 mg QAM [facility] Administration Zinc Acetate/Diphenhydramine 1 applic 08/04/21 09:13 08/04/21 09:23 Diphenhydramine Cream 30 Gm TOPICAL 1 applic Q4H PRN Administration ITCHING PFSH Acute PFSH: Medical History Anemia in chronic illness Chronic insomnia Chronic renal insufficiency COPD (chronic obstructive pulmonary disease) Diabetes mellitus type 2, insulin dependent Diabetic neuropathy Fibromyalgia History of CVA (cerebrovascular accident) Hyperlipemia Hypertension Hypothyroidism Lumbar disc disease with radiculopathy Neuropathy Parkinson disease Post laminectomy syndrome Sciatica associated with disorder of lumbosacral spine Stage 4 chronic renal impairment associated with type 2 diabetes mellitus Uncontrolled insulin dependent diabetes mellitus Vitamin D deficiency Surgical History Hx of cholecystectomy Hx of foot surgery Hx of hysterectomy Family History Father CAD (coronary artery disease) Mother CAD (coronary artery disease) Diabetes Grandfather CAD (coronary artery disease) Diabetes Social History Smoking and tobacco status: former smoker Second hand smoke exposure: No Alcohol intake: current Alcohol intake frequency: holidays/special occasions only Alcohol type: hard liquor History of recent travel: No Vitals/I&O/Wt Last Vital Signs Temp 98.1 F 08/04/21 16:00 Pulse 59 L 08/04/21 16:00 Resp 21 H 08/04/21 16:00 BP 195/86 08/04/21 16:00 Pulse Ox 97 08/04/21 16:00 08/04/21 08/04/21 08/04/21 06:59 14:59 22:59 Intake Total 100 / 600 400 / 400 400 / 800 Output Total 2200 / 3200 1200 / 1200 600 / 1800 Balance -2100 / -2600 -800 / -800 -200 / -1000 Weight last 48 hrs Weight 300 lb 14.4 oz Weight 305 lb 12.8 oz Weight 292 lb Physical Exam Narrative: Patient is conscious alert oriented X3 No apparent distress BMI 47 Head and neck examination PERRLA no masses no cervical lymphadenopathy no jaundice Cardiac examination audible S1-S2 no murmurs no gallops no arrhythmias Chest is clear bilateral,abscence of Rhonchi or wheezes,no surgical emphysema Abdomen nontender nondistended soft no organomegaly guarding or rigidity/no signs of peritonitis Extremities no cyanosis no clubbing no edema Urinary Catheter Management: Puckett: Cath Placed During This Visit: yes Reason for Continuing Indwelling Catheter: Accurate Measurement of Urinary Output in Critically Ill Patients Urinary Catheter Date of Insertion: 08/03/21 Urinary Catheter Time of Insertion: 19:01 Data : 08/07/21 02:45 08/07/21 02:45 Micro: Microbiology 08/03/21 20:25 MRSA Culture - Final Nose 08/03/21 20:34 Blood Culture - Preliminary Blood SPECIMEN COLLECTED 08/03/21 20:39 Blood Culture - Preliminary Blood SPECIMEN COLLECTED A&P Assessment and plan (1) Acute kidney injury superimposed on CKD: Likely the patient would need a tunneled hemodialysis catheter during this hospitalization. Assurance and education All questions have been answered and all concerns have been addressed to patient's satisfaction. 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
[2021-08-04 19:17] LABS: Partial Thromboplastin Time 86.6 SECONDS (23.9-36.7)
[2021-08-04] MEDS: ropinirole 0.25 mg Tablet 0.5 MG PO (20:10)
[2021-08-04] MEDS: atorvastatin 40 mg Tablet 20 MG PO (20:10)
[2021-08-04] MEDS: oxyCODONE-APAP 10-325 mg Tablet 1 TAB PO (20:11)
[2021-08-04 21:38] LABS: Glucose Point of Care 153 mg/dL (70-110)
[2021-08-04] MEDS: pantoprazole 40 mg SDV IVP (22:00)
[2021-08-04] MEDS: cefTRIAXone 1,000 MG in sodium chloride 0.9% (plus) 50 ML 100 MG IV (22:28)
[2021-08-05] VITALS (15 sets, daily range): BP systolic 147–178; BP diastolic 53–78; PULSE 55–82; RESP 16–23; TEMP 36.6–36.8; O2SAT 90–96
[2021-08-05 02:07] LABS: Basophils # 0.1 10^3/uL (0.0-0.1); Basophils % 0.6 %; Eosinophils # 0.1 10^3/uL (0.0-0.8); Eosinophils % 1.1 %; Hematocrit 27.9 % (37.0-47.0); Hemoglobin 8.2 g/dL (11.5-15.3); Lymphocytes # 1.7 10^3/uL (0.8-4.8); Lymphocytes % 13.8 %; Mean Corpuscular HGB Conc 29.4 g/dL (30.0-36.0); Mean Corpuscular Hemoglobin 27.9 pg (28.0-34.0); Mean Corpuscular Volume 94.9 fl (81-99); Mean Platelet Volume 11.2 fL (7.4-10.4); Monocytes # 1.1 10^3/uL (0.2-0.9); Neutrophils # 9.22 10^3/uL (1.8-7.7); Neutrophils % 75.1 %; Nucleated Red Blood Cells % 0 %; Platelet Count 300 10^3/cmm (130-400); Red Blood Count 2.94 10^6/uL (4.1-5.3); Red Cell Distribution Width 20.9 % (12.1-15.1); White Blood Count 12.3 10^3/uL (4.0-10.0)
[2021-08-05 02:38] LABS: Alanine Aminotransferase 7 U/L (0-33); Albumin Level 2.5 g/dL (3.5-5.2); Alkaline Phosphatase 118 IU/L (35-105); Anion Gap 15.5 (5-19); Aspartate Amino Transferase 20 U/L (0-32); Blood Urea Nitrogen 70 mg/dL (8-23); Calcium 7.7 mg/dL (8.5-10.5); Carbon Dioxide 30 mmol/L (22-29); Chloride 98 mmol/L (98-107); Globulin 3.9 g/dL (1.3-4.6); Glucose 155 mg/dL (65-115); Osmolality Calculated 314 mOsm/kg (285-295); Phosphorus 4.7 mg/dL (2.5-4.5); Potassium 3.5 mmol/L (3.5-5.1); Sodium 140 mmol/L (136-145); Total Bilirubin 0.3 mg/dL (0.15-1.2); Total Protein 6.4 g/dL (6.6-8.7)
[2021-08-05 02:39] LABS: Creatine Phosphokinase 59 U/L (26-192); NT Pro B Type Natriuretic Pept 10545 pg/mL (0-450)
[2021-08-05] MEDS: heparin drip 25,000 UNIT/500 ML PREMIX 31 UNIT IV (02:46)
[2021-08-05 02:50] LABS: Partial Thromboplastin Time 116.8 SECONDS (23.9-36.7)
[2021-08-05] MEDS: bumetanide 0.25 mg/mL SDV 4 mL 1 MG IVP ×3 (05:07→21:39)
[2021-08-05] MEDS: hyDRALAzine 25 mg Tablet PO ×4 (05:30→23:02)
[2021-08-05] MEDS: insulin glargine 100 units/1 mL 40 UNIT SUBCUT (05:30)
[2021-08-05] MEDS: folic acid 1 mg Tablet PO (05:30)
[2021-08-05] MEDS: thyroid 60 mg Tablet 150 MG PO (05:30)
[2021-08-05 06:42] LABS: Glucose Point of Care 123 mg/dL (70-110)
[2021-08-05] MEDS: linezolid 600 mg Tablet PO (08:39)
[2021-08-05] MEDS: b-complex-vitamin c Tablet 1 EACH PO (08:40)
[2021-08-05] MEDS: gabapentin 300 mg Capsule PO ×2 (08:40→17:33)
[2021-08-05] MEDS: metoprolol tartrate 50 mg Tablet 100 MG PO ×2 (08:40→17:33)
[2021-08-05] MEDS: magnesium oxide 400 mg tablet PO ×2 (08:40→17:32)
[2021-08-05] MEDS: oxyCODONE-APAP 10-325 mg Tablet 1 TAB PO ×2 (08:43→17:32)
[2021-08-05 10:05] LABS: Partial Thromboplastin Time 68.5 SECONDS (23.9-36.7)
[2021-08-05] MEDS: spironolactone 25 mg Tablet 50 MG PO ×2 (10:55→17:32)
[2021-08-05] MEDS: cloNIDine 0.3 mg/24 hr Patch 1 PATCH TRANSDERMA (10:55)
--- NOTE | 2021-08-05 11:11 | P.PN_ITS ---
Subjective Subjective: Ms. Coffman feels a little better today. She seems to be diuresing well with her current dose of intravenous Bumex. She still has significant extremity edema. Remains on antibiotics for her cellulitis. Vitals/I&O/Wt Last Vital Signs Temp 98.2 F 08/05/21 11:10 Pulse 59 L 08/05/21 11:10 Resp 20 H 08/05/21 11:10 BP 171/78 08/05/21 11:10 Pulse Ox 95 08/05/21 11:10 08/04/21 08/05/21 08/05/21 22:59 06:59 14:59 Intake Total 862 / 1262 850 / 2112 200 / 200 Output Total 1000 / 2200 300 / 2500 Balance -138 / -938 550 / -388 200 / 200 Weight last 48 hrs Weight 135.171 kg Weight 136.486 kg Weight 138.709 kg Weight 132.449 kg Physical Exam Narrative: Constitutional: Awake, comfortable HEENT: Wet mucosa, no jvp, non icteric Lungs: Bilaterally clear without discernible wheeze, rales in all lung zones CVS: S1 S2, no murmurs Abdo: Soft, BS ok Ext 4:2+ edema, peripheral perfusion with no cyanosis, cellulitis Neurological: Grossly non-focal Urinary Catheter Management: Puckett: Cath Placed During This Visit: yes Reason for Continuing Indwelling Catheter: Acute Urinary Retention or Obstruction Urinary Catheter Date of Insertion: 08/03/21 Urinary Catheter Time of Insertion: 19:01 Data : 08/05/21 01:18 08/05/21 01:18 Micro: Microbiology 08/03/21 20:34 Blood Culture - Preliminary Blood NEGATIVE TO DATE 08/03/21 20:39 Blood Culture - Preliminary Blood NEGATIVE TO DATE 08/03/21 20:25 MRSA Culture - Final Nose A&P Assessment and plan (1) Acute kidney injury superimposed on CKD: 1. Chronic kidney disease She has advanced chronic kidney disease but no acute indication for hemodialysis with what appears to be subacute progressive decline over the last few years. As she has reasonable urine output at this time, no acute indication for dialysis Close monitoring of renal function over the next few days Strict I's and O's 2. Hypertension and hypervolemia Unfortunately minoxidil, as good as it is, will cause significant edema and with this in mind I will hold it. We will add spironolactone initially 50 mg twice a day 3. Chemistry Noncritical aberration, continue to monitor closely. 4. Lower extremity cellulitis Combination antibiotics noted. 5. 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
--- NOTE | 2021-08-05 12:03 | PM.PN ---
Subjective Subjective: Patient was seen this morning, she tells me that her lower extremity swelling has significantly improved, she is doing well, no shortness of breath, Vitals/I&O/Wt Last Vital Signs Temp 98.2 F 08/05/21 11:10 Pulse 59 L 08/05/21 11:10 Resp 20 H 08/05/21 11:10 BP 171/78 08/05/21 11:10 Pulse Ox 95 08/05/21 11:10 08/04/21 08/05/21 08/05/21 22:59 06:59 14:59 Intake Total 862 / 1262 850 / 2112 200 / 200 Output Total 1000 / 2200 300 / 2500 Balance -138 / -938 550 / -388 200 / 200 Weight last 48 hrs Weight 135.171 kg Weight 136.486 kg Weight 138.709 kg Weight 132.449 kg Physical Exam Const: COMMON NORMALS: no acute distress and patient oriented x3 Resp: COMMON NORMALS: normal respiratory effort, No retractions, No use of accessory muscles and clear to auscultation bilaterally AUSCULTATION: clear to auscultation bilaterally Cardio: COMMON NORMALS: regular rate, regular rhythm, S1 normal heart sound present and S2 normal heart sound present RATE: regular rate RHYTHM: regular rhythm HEART SOUNDS: S1 normal heart sound present and S2 normal heart sound present GI: COMMON NORMALS: Normal to inspection, nondistended, normoactive bowel sounds present, Soft to palpation and non-tender PALPATION: Yes Soft to palpation Neuro: COMMON NORMALS: patient oriented x3 Skin: NARRATIVE SKIN EXAM: 1+ pitting edema bilateral extremity Urinary Catheter Management: Puckett: Cath Placed During This Visit: yes Reason for Continuing Indwelling Catheter: Acute Urinary Retention or Obstruction Urinary Catheter Date of Insertion: 08/03/21 Urinary Catheter Time of Insertion: 19:01 Data : 08/05/21 01:18 08/05/21 01:18 Micro: Microbiology 08/03/21 20:34 Blood Culture - Preliminary Blood NEGATIVE TO DATE 08/03/21 20:39 Blood Culture - Preliminary Blood NEGATIVE TO DATE 08/03/21 20:25 MRSA Culture - Final Nose A&P Assessment and plan (1) Bilateral lower extremity edema: Status: Acute (2) Acute exacerbation of CHF (congestive heart failure): Status: Acute (3) Cellulitis: Status: Acute (4) Acute kidney injury superimposed on CKD: Status: Acute (5) Diabetes mellitus type 2, insulin dependent: Status: Acute (6) Vitamin D deficiency: Status: Acute Plan Bilateral lower extremity edema likely from diastolic CHF exacerbation and fluid overload -Has not responded to outpatient diuretics -Responding well to diuresis, creatinine 3.4, over 2.7 L out -Continue Bumex 1 mg every 8 hours, fluid restriction 1500 cc, monitor urine output, Place Puckett catheter -Nephrology consulted for consideration of dialysis, for now no plans on dialysis -Dr. Marin has been counseled by the ER physician, for now no plans on dialysis -Continue to hold Plavix -Continue heparin drip -DNR/DNI -SCDs for DVT prophylaxis, heparin for DVT prophylaxis Bilateral lower extremity cellulitis -Erythema, edema -Blood cultures so far negative MRSA PCR so far negative -Stop Zyvox, Rocephin, transition to doxycycline Type 2 diabetes mellitus, continue Lantus, low-dose sliding scale A. fib, continue home metoprolol, heparin drip History of CVA, Plavix on hold given possible surgical invention, risk of bleeding during surgery, on heparin drip Hypertensive urgency, blood pressures are elevated in the emergency room, continues to have elevated blood pressures -Clonid 0.3 mg patch patch every 7 days -Aldactone added -Hydralazine 25 4 times daily -Minoxidil has been stopped due to concerns for worsening lower extremity edema History of pulmonary embolism, high probability VQ scan, could not undergo a CT angiogram given creatinine, was on Eliquis, hold for now, on heparin drip Chronic pain, continue home oxycodone 10-325 3 times daily Hypothyroidism elevated TSH, free T3, free T4, RLC within normal limits, increase levothyroxine to 175, recheck TSH in 6 weeks Attestations Medical Necessity Statement*: Patient requires hospitalization for diastolic CHF, bilateral lower extremity edema, cellulitis Coding Level of Care Code 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
[2021-08-05 12:41] LABS: Glucose Point of Care 149 mg/dL (70-110)
[2021-08-05] MEDS: insulin lispro 100 unit/1 mL SUBCUT (13:15)
[2021-08-05] MEDS: duloxetine 60 mg Capsule PO (13:15)
[2021-08-05] MEDS: ferric gluconate 125 MG in sodium chloride 0.9% (100 ml) 100 ML 110 MG IV (13:44)
[2021-08-05] MEDS: amlodipine 10 mg Tablet PO (14:38)
--- NOTE | 2021-08-05 14:59 | PC.NURSE ---
Report to Qiana RN at this time.
[2021-08-05 15:17] LABS: Anti-streptolysin O 103 IU/mL (<200)
[2021-08-05 15:53] LABS: Anti-Double Strand DNA AB <1 IU/mL
[2021-08-05 17:04] LABS: Partial Thromboplastin Time 75.7 SECONDS (23.9-36.7)
[2021-08-05 17:30] LABS: Glucose Point of Care 136 mg/dL (70-110)
[2021-08-05] MEDS: doxycycline 100 mg Tablet PO (17:32)
[2021-08-05] MEDS: acetaminophen 325 mg Tablet 650 MG PO (19:46)
[2021-08-05] MEDS: diphenhydrAMINE 50 mg/mL SDV 1mL 25 MG IVP (19:48)
[2021-08-05] MEDS: atorvastatin 40 mg Tablet 20 MG PO (20:14)
[2021-08-05] MEDS: pantoprazole DR 40 mg Tablet PO (20:14)
[2021-08-05] MEDS: ropinirole 0.25 mg Tablet 0.5 MG PO (20:14)
[2021-08-05 20:18] LABS: Glucose Point of Care 178 mg/dL (70-110)
[2021-08-05 23:29] LABS: Partial Thromboplastin Time 75.5 SECONDS (23.9-36.7)
[2021-08-06] VITALS (11 sets, daily range): BP systolic 134–176; BP diastolic 60–90; PULSE 50–100; RESP 16–20; TEMP 36.4–36.9; O2SAT 90–97
[2021-08-06] MEDS: heparin drip 25,000 UNIT/500 ML PREMIX 17 UNIT IV (00:47)
[2021-08-06] MEDS: oxyCODONE-APAP 10-325 mg Tablet 1 TAB PO ×2 (03:14→17:24)
[2021-08-06] MEDS: folic acid 1 mg Tablet PO (05:21)
[2021-08-06] MEDS: thyroid 60 mg Tablet 180 MG PO (05:21)
[2021-08-06] MEDS: hyDRALAzine 25 mg Tablet PO ×4 (05:21→22:43)
[2021-08-06 05:41] LABS: Basophils # 0.1 10^3/uL (0.0-0.1); Basophils % 0.5 %; Eosinophils # 0.2 10^3/uL (0.0-0.8); Eosinophils % 1.6 %; Hematocrit 29.3 % (37.0-47.0); Hemoglobin 8.7 g/dL (11.5-15.3); Lymphocytes # 1.9 10^3/uL (0.8-4.8); Lymphocytes % 13.7 %; Mean Corpuscular HGB Conc 29.7 g/dL (30.0-36.0); Mean Corpuscular Hemoglobin 28.2 pg (28.0-34.0); Mean Corpuscular Volume 95.1 fl (81-99); Mean Platelet Volume 10.4 fL (7.4-10.4); Monocytes # 1.3 10^3/uL (0.2-0.9); Monocytes % 9.3 %; Neutrophils # 10.42 10^3/uL (1.8-7.7); Neutrophils % 74.3 %; Nucleated Red Blood Cells % 0.1 %; Platelet Count 358 10^3/cmm (130-400); Red Blood Count 3.08 10^6/uL (4.1-5.3); Red Cell Distribution Width 20.9 % (12.1-15.1)
[2021-08-06] MEDS: insulin glargine 100 units/1 mL 40 UNIT SUBCUT (05:55)
[2021-08-06] MEDS: bumetanide 0.25 mg/mL SDV 4 mL 1 MG IVP (06:00)
[2021-08-06 06:09] LABS: Alanine Aminotransferase 16 U/L (0-33); Albumin Level 3.2 g/dL (3.5-5.2); Alkaline Phosphatase 170 IU/L (35-105); Aspartate Amino Transferase 44 U/L (0-32); Blood Urea Nitrogen 71 mg/dL (8-23); Calcium 8.2 mg/dL (8.5-10.5); Carbon Dioxide 28 mmol/L (22-29); Chloride 94 mmol/L (98-107); Creatine Phosphokinase 103 U/L (26-192); Globulin 3.4 g/dL (1.3-4.6); Glucose 88 mg/dL (65-115); Magnesium 2.1 mg/dL (1.7-2.3); NT Pro B Type Natriuretic Pept 13499 pg/mL (0-450); Osmolality Calculated 302 mOsm/kg (285-295); Phosphorus 6.7 mg/dL (2.5-4.5); Sodium 136 mmol/L (136-145); Total Bilirubin 0.5 mg/dL (0.15-1.2); Total Protein 6.6 g/dL (6.6-8.7)
[2021-08-06 06:42] LABS: Glucose Point of Care 95 mg/dL (70-110)
[2021-08-06] MEDS: spironolactone 25 mg Tablet 50 MG PO ×2 (08:06→17:24)
[2021-08-06] MEDS: doxycycline 100 mg Tablet PO ×2 (08:06→17:23)
[2021-08-06] MEDS: b-complex-vitamin c Tablet 1 EACH PO (08:07)
[2021-08-06] MEDS: metoprolol tartrate 50 mg Tablet 100 MG PO ×2 (08:07→17:23)
[2021-08-06] MEDS: magnesium oxide 400 mg tablet PO ×2 (08:07→17:23)
[2021-08-06] MEDS: gabapentin 300 mg Capsule PO ×2 (08:08→17:24)
--- NOTE | 2021-08-06 08:17 | PM.PN ---
Subjective Subjective: Ms. Chaudhari is keen to go home and has no specific complaints. Leg edema relatively unchanged yesterday. Urine output noted to have gone down now 550 mL despite high-dose Bumex and the addition of spironolactone. Hemodynamics appear stable, blood pressure is slightly improved. No overt uremic symptoms. Medications: Reviewed: Yes Vitals/I&O/Wt Last Vital Signs Temp 98.5 F 08/06/21 07:43 Pulse 100 08/06/21 07:43 Resp 16 08/06/21 07:43 BP 138/69 08/06/21 07:43 Pulse Ox 92 08/06/21 07:43 08/05/21 08/06/21 08/06/21 22:59 06:59 14:59 Intake Total 930.000 / 1380.000 120 / 1500.000 Output Total 550 / 550 Balance 930.000 / 1380.000 -430 / 950.000 Weight last 48 hrs Weight 136.985 kg Weight 135.171 kg Physical Exam Narrative: Constitutional: Awake, comfortable HEENT: Wet mucosa, no jvp, non icteric Lungs: Bilaterally clear without discernible wheeze, rales in all lung zones CVS: S1 S2, no murmurs Abdo: Soft, BS ok Ext 4:2+ edema, peripheral perfusion with no cyanosis, cellulitis Neurological: Grossly non-focal Urinary Catheter Management: Puckett: Cath Placed During This Visit: yes Reason for Continuing Indwelling Catheter: Acute Urinary Retention or Obstruction Urinary Catheter Date of Insertion: 08/03/21 Urinary Catheter Time of Insertion: 19:01 Data : 08/06/21 05:24 08/06/21 05:24 A&P Assessment and plan (1) Acute kidney injury superimposed on CKD: 1. Chronic kidney disease Unfortunately, serum creatinine has significantly increased since yesterday and urine output has dropped. No acute indication for dialysis today, however, she does not improve over the next day or so it is likely to be needed during this hospitalization. Close monitoring of renal function over the next few days Strict I's and O's 2. Hypertension and hypervolemia Given propensity to cause edema, minoxidil stopped, spironolactone initiated. 3. Chemistry Noncritical aberration, continue to monitor closely. 4. Lower extremity cellulitis Combination antibiotics noted. 5. 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
--- NOTE | 2021-08-06 09:43 | P.PN_ITS ---
Subjective Subjective: Patient was seen this morning, she sitting up in a chair, enjoying breakfast, she tells me she is feeling a lot better, no shortness of breath, her edema has improved Vitals/I&O/Wt Last Vital Signs Temp 98.5 F 08/06/21 07:43 Pulse 100 08/06/21 07:43 Resp 16 08/06/21 07:43 BP 138/69 08/06/21 07:43 Pulse Ox 92 08/06/21 07:43 08/05/21 08/06/21 08/06/21 22:59 06:59 14:59 Intake Total 930.000 / 1380.000 120 / 1500.000 Output Total 550 / 550 Balance 930.000 / 1380.000 -430 / 950.000 Weight last 48 hrs Weight 136.985 kg Weight 135.171 kg Physical Exam Const: COMMON NORMALS: no acute distress and patient oriented x3 Resp: COMMON NORMALS: normal respiratory effort, No retractions, No use of accessory muscles and clear to auscultation bilaterally AUSCULTATION: clear to auscultation bilaterally Cardio: COMMON NORMALS: regular rate, regular rhythm, S1 normal heart sound present and S2 normal heart sound present RATE: regular rate RHYTHM: regular rhythm HEART SOUNDS: S1 normal heart sound present and S2 normal heart sound present GI: COMMON NORMALS: Normal to inspection, nondistended, normoactive bowel sounds present, Soft to palpation, non-tender and No hepatosplenomegaly present PALPATION: Yes Soft to palpation and Yes No hepatosplenomegaly present Extremity: NARRATIVE EXTREMITY EXAM: 1+ pitting edema Neuro: COMMON NORMALS: patient oriented x3 Psych: COMMON NORMALS: mental status grossly normal Urinary Catheter Management: Puckett: Cath Placed During This Visit: yes Reason for Continuing Indwelling Catheter: Acute Urinary Retention or Obstruction Urinary Catheter Date of Insertion: 08/03/21 Urinary Catheter Time of Insertion: 19:01 Data : 08/06/21 05:24 08/06/21 05:24 A&P Assessment and plan (1) Bilateral lower extremity edema: Status: Acute (2) Acute exacerbation of CHF (congestive heart failure): Status: Acute (3) Cellulitis: Status: Acute (4) Acute kidney injury superimposed on CKD: Status: Acute (5) Diabetes mellitus type 2, insulin dependent: Status: Acute (6) Vitamin D deficiency: Status: Acute Plan Bilateral lower extremity edema likely from diastolic CHF exacerbation and fluid overload -Has not responded to outpatient diuretics -Responding well to diuresis, but creatinine up to 4.2, urine output 500 cc -Hold Bumex 1 mg every 8 hours, fluid restriction 1500 cc, monitor urine output, Place Puckett catheter -Nephrology consulted for consideration of dialysis, for now no plans on dialysis -Dr. Marin has been counseled by the ER physician, for now no plans on dialysis -Continue to hold Plavix -Continue heparin drip -DNR/DNI -SCDs for DVT prophylaxis, heparin for DVT prophylaxis Bilateral lower extremity cellulitis -Erythema, edema -Blood cultures so far negative MRSA PCR so far negative -On doxycycline Type 2 diabetes mellitus, continue Lantus, low-dose sliding scale A. fib, continue home metoprolol, heparin drip History of CVA, Plavix on hold given possible surgical invention, risk of bleeding during surgery, on heparin drip Hypertensive urgency, blood pressures are elevated in the emergency room, continues to have elevated blood pressures -Clonid 0.3 mg patch patch every 7 days -Aldactone added -Hydralazine 25 4 times daily -Minoxidil has been stopped due to concerns for worsening lower extremity edema History of pulmonary embolism, high probability VQ scan, could not undergo a CT angiogram given creatinine, was on Eliquis, hold for now, on heparin drip Chronic pain, continue home oxycodone 10-325 3 times daily Hypothyroidism elevated TSH, free T3, free T4, RLC within normal limits, increase levothyroxine to 175, recheck TSH in 6 weeks Attestations Medical Necessity Statement*: Patient requires hospitalization due to bilateral extremity edema Coding Level of Care Code 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
--- NOTE | 2021-08-06 10:40 | PC.SOCIAL ---
IMM Update pg 2 of IMM updated and reviewed w/ patient. Copy provided and Copy placed in chart.
[2021-08-06 11:52] LABS: Glucose Point of Care 130 mg/dL (70-110)
[2021-08-06] MEDS: acetaminophen 325 mg Tablet 650 MG PO (11:57)
[2021-08-06] MEDS: duloxetine 60 mg Capsule PO (11:57)
[2021-08-06 12:16] LABS: Partial Thromboplastin Time 37.2 SECONDS (23.9-36.7)
--- NOTE | 2021-08-06 12:50 | PC.NURSE ---
Pt PTT was 37.2 big drop from 66.0, pt IV line infiltrated, after talking with Physician, will hold bolus and increase in rate until next PTT result.
[2021-08-06] MEDS: ferric gluconate 125 MG in sodium chloride 0.9% (100 ml) 100 ML 110 MG IV (13:16)
[2021-08-06] MEDS: amlodipine 10 mg Tablet PO (16:27)
[2021-08-06 17:03] LABS: Glucose Point of Care 117 mg/dL (70-110)
[2021-08-06 18:38] LABS: Partial Thromboplastin Time 49.4 SECONDS (23.9-36.7)
[2021-08-06] MEDS: ropinirole 0.25 mg Tablet 0.5 MG PO (20:26)
[2021-08-06] MEDS: atorvastatin 40 mg Tablet 20 MG PO (20:26)
[2021-08-06] MEDS: pantoprazole DR 40 mg Tablet PO (20:26)
[2021-08-06] MEDS: heparin 5,000 unit/mL INJ 1 mL IV (20:27)
[2021-08-06] MEDS: diphenhydrAMINE 50 mg/mL SDV 1mL 25 MG IVP (20:31)
[2021-08-07] VITALS (14 sets, daily range): BP systolic 104–179; BP diastolic 46–89; PULSE 45–59; RESP 14–18; TEMP 36.2–36.7; O2SAT 93–99
--- NOTE | 2021-08-07 | SCC_ITS ---
Procedure done: 1.? Placement of 16 Portuguese 23/28 cm long AshSplit tunneled hemodialysis catheter right internal jugular vein 2.? Fluoroscopic guidance and interpretation for placement of catheter 3.? Ultrasound guidance to access the right internal jugular vein 42.3 seconds of fluoroscopic guidance, for a cumulative dose of 5.72 mGy, was provided to Dr. Marin by the radiology department. C-arm images of the chest were saved for the patient's permanent record. CHRISD
[2021-08-07 03:51] LABS: Basophils # 0.1 10^3/uL (0.0-0.1); Basophils % 0.5 %; Eosinophils # 0.2 10^3/uL (0.0-0.8); Hematocrit 28.5 % (37.0-47.0); Hemoglobin 8.6 g/dL (11.5-15.3); Lymphocytes # 1.5 10^3/uL (0.8-4.8); Lymphocytes % 13.3 %; Mean Corpuscular HGB Conc 30.2 g/dL (30.0-36.0); Mean Corpuscular Hemoglobin 28.3 pg (28.0-34.0); Mean Corpuscular Volume 93.8 fl (81-99); Monocytes % 9.1 %; Neutrophils # 8.42 10^3/uL (1.8-7.7); Neutrophils % 74.7 %; Nucleated Red Blood Cells % 0.2 %; Platelet Count 298 10^3/cmm (130-400); Red Blood Count 3.04 10^6/uL (4.1-5.3); Red Cell Distribution Width 20.8 % (12.1-15.1); White Blood Count 11.3 10^3/uL (4.0-10.0)
[2021-08-07 04:02] LABS: Partial Thromboplastin Time 53.7 SECONDS (23.9-36.7)
[2021-08-07] MEDS: heparin 5,000 unit/mL INJ 1 mL IV (04:07)
[2021-08-07 04:20] LABS: Alanine Aminotransferase 16 U/L (0-33); Albumin Level 3.1 g/dL (3.5-5.2); Alkaline Phosphatase 226 IU/L (35-105); Anion Gap 21.6 (5-19); Aspartate Amino Transferase 34 U/L (0-32); Blood Urea Nitrogen 75 mg/dL (8-23); C Reactive Protein 104.6 mg/L (0.0-4.9); Calcium 8.5 mg/dL (8.5-10.5); Carbon Dioxide 28 mmol/L (22-29); Chloride 94 mmol/L (98-107); Globulin 3.4 g/dL (1.3-4.6); Glucose 120 mg/dL (65-115); Magnesium 2.3 mg/dL (1.7-2.3); NT Pro B Type Natriuretic Pept 11297 pg/mL (0-450); Osmolality Calculated 311 mOsm/kg (285-295); Phosphorus 7.4 mg/dL (2.5-4.5); Potassium 4.6 mmol/L (3.5-5.1); Sodium 139 mmol/L (136-145); Total Bilirubin 0.4 mg/dL (0.15-1.2); Total Protein 6.5 g/dL (6.6-8.7)
[2021-08-07] MEDS: heparin drip 25,000 UNIT/500 ML PREMIX 23 UNIT IV (04:45)
[2021-08-07] MEDS: insulin glargine 100 units/1 mL 40 UNIT SUBCUT (05:27)
[2021-08-07] MEDS: thyroid 60 mg Tablet 180 MG PO (05:27)
[2021-08-07] MEDS: hyDRALAzine 25 mg Tablet PO ×3 (05:27→23:54)
[2021-08-07] MEDS: folic acid 1 mg Tablet PO (05:27)
--- NOTE | 2021-08-07 08:06 | PM.PN ---
Subjective Subjective: swollen, sob, weak Medications: Reviewed: Yes Medication Review Details: Current Medications Acetaminophen (Acetaminophen 325 Mg Tablet) 650 mg PO Q6H PRN PRN Reason: Mild/Mod Pain Or Temp >/= 101 Last Admin: 08/06/21 11:57 Dose: 650 mg Documented by: Albuterol/Ipratropium (Ipratropium-Albuterol 3 Ml Neb) 3 ml INHALATION Q6H PRN PRN Reason: SHORTNESS OF BREATH Last Admin: 08/04/21 20:42 Dose: 3 ml Documented by: Amlodipine Besylate (Amlodipine 10 Mg Tablet) 10 mg PO Q24H [facility] Last Admin: 08/06/21 16:27 Dose: 10 mg Documented by: Atorvastatin Calcium (Atorvastatin 40 Mg Tablet) 20 mg PO BEDTIME [facility] Last Admin: 08/06/21 20:26 Dose: 20 mg Documented by: Bumetanide (Bumetanide 0.25 Mg/Ml Sdv 4 Ml) 1 mg IVP Q8H [facility] Last Admin: 08/06/21 06:00 Dose: 1 mg Documented by: Clonidine HCl (Clonidine 0.3 Mg/24 Hr Patch) 1 patch TRANSDERMA Q7D [facility] Last Admin: 08/05/21 10:55 Dose: 1 patch Documented by: Dextrose (Dextrose 50% Syringe 50 Ml) 25 ml IVP ONCE PRN; Protocol PRN Reason: hypoglycemia protocol Dextrose (Dextrose 50% Syringe 50 Ml) 50 ml IVP PRN PRN; Protocol PRN Reason: hypoglycemia protocol Diphenhydramine HCl (Diphenhydramine 50 Mg/Ml Sdv 1ml) 25 mg IVP Q6H PRN PRN Reason: ITCHING Last Admin: 08/06/21 20:31 Dose: 25 mg Documented by: Doxycycline Monohydrate (Doxycycline 100 Mg Tablet) 100 mg PO BID [facility]; Protocol Last Admin: 08/06/21 17:23 Dose: 100 mg Documented by: Duloxetine HCl (Duloxetine 60 Mg Capsule) 60 mg PO DAILY@12 [facility] Last Admin: 08/06/21 11:57 Dose: 60 mg Documented by: Folic Acid (Folic Acid 1 Mg Tablet) 1 mg PO QAM [facility] Last Admin: 08/07/21 05:27 Dose: 1 mg Documented by: Gabapentin (Gabapentin 300 Mg Capsule) 300 mg PO BID [facility] Last Admin: 08/06/21 17:24 Dose: 300 mg Documented by: Glucagon (Glucagon 1 Mg/Ml Inj 1 Ml) 1 mg IM ONCE PRN; Protocol PRN Reason: Adult Acute Hypoglycemia Prot. Heparin Sodium (Porcine) (Heparin 5,000 Unit/Ml Inj 1 Ml) 0 unit IV PRN PRN; Protocol PRN Reason: Heparin weight-base protocol Last Admin: 08/07/21 04:07 Dose: 2,700 unit Documented by: Hydralazine HCl (Hydralazine 25 Mg Tablet) 25 mg PO Q6H [facility] Last Admin: 08/07/21 05:27 Dose: 25 mg Documented by: Dextrose (D5w) 500 mls @ 100 mls/hr IV ONCE PRN; Protocol PRN Reason: Adult Acute Hypoglycemia Prot Ferric Sodium Gluconate 125 mg (/ Sodium Chloride) 110 mls @ 110 mls/hr IV Q24H [facility] Stop: 08/11/21 12:59 Last Infusion: 08/06/21 14:39 Dose: Infused Documented by: Heparin Sodium/Sodium Chloride (Heparin Drip) 25,000 unit in 500 mls @ 0 mls/hr IV .Q0M [facility]; Protocol Last Admin: 08/07/21 04:45 Dose: 8.43 unit/kg/hr, 23 mls/hr Documented by: Insulin Glargine (Insulin Glargine 100 Units/1 Ml) 40 unit SUBCUT QAM [facility] Last Admin: 08/07/21 05:27 Dose: 40 unit Documented by: Insulin Human Lispro (Insulin Lispro 100 Unit/1 Ml) 0 unit SUBCUT TIDWM [facility]; Protocol Last Admin: 08/06/21 17:13 Dose: Not Given Documented by: Magnesium Oxide (Magnesium Oxide 400 Mg Tablet) 400 mg PO BID [facility] Last Admin: 08/06/21 17:23 Dose: 400 mg Documented by: Metoprolol Tartrate (Metoprolol Tartrate 50 Mg Tablet) 100 mg PO BID [facility] Last Admin: 08/06/21 17:23 Dose: 100 mg Documented by: Multivitamins (C-Dvckhri-Eavowit C Tablet) 1 each PO DAILY [facility] Last Admin: 08/06/21 08:07 Dose: 1 each Documented by: Ondansetron HCl (Ondansetron 2 Mg/Ml Sdv 2 Ml) 4 mg IVP Q8H PRN PRN Reason: vomiting, or N/V if npo Oxycodone/Acetaminophen (Oxycodone-Apap 10-325 Mg Tablet) 1 tab PO Q8H PRN PRN Reason: MODERATE PAIN Last Admin: 08/06/21 17:24 Dose: 1 tab Documented by: Pantoprazole Sodium (Pantoprazole Dr 40 Mg Tablet) 40 mg PO Q24H [facility] Last Admin: 08/06/21 20:26 Dose: 40 mg Documented by: Ropinirole HCl (Ropinirole 0.25 Mg Tablet) 0.5 mg PO BEDTIME [facility] Last Admin: 08/06/21 20:26 Dose: 0.5 mg Documented by: Spironolactone (Spironolactone 25 Mg Tablet) 50 mg PO BID [facility] Last Admin: 08/06/21 17:24 Dose: 50 mg Documented by: Thyroid (Thyroid 60 Mg Tablet) 180 mg PO QAM [facility] Last Admin: 08/07/21 05:27 Dose: 180 mg Documented by: Zinc Acetate/Diphenhydramine (Diphenhydramine Cream 30 Gm) 1 applic TOPICAL Q4H PRN PRN Reason: ITCHING Last Admin: 08/04/21 22:41 Dose: 1 applic Documented by: Vitals/I&O/Wt Last Vital Signs Temp 97.7 F 08/07/21 04:00 Pulse 55 L 08/07/21 08:01 Resp 16 08/07/21 08:01 BP 179/77 08/07/21 04:00 Pulse Ox 94 08/07/21 08:01 08/06/21 08/07/21 08/07/21 22:59 06:59 14:59 Intake Total 936.883 / 1406.883 403.117 / 1810.000 Output Total 625 / 625 600 / 1225 Balance 311.883 / 781.883 -196.883 / 585.000 Weight last 48 hrs Weight 136.985 kg Physical Exam Narrative: swollen, low nc 02, NARD BP elevated heent- nc/at, eomi, anicteric neck supple lungs- b/l crackles heart reg+SHAHRAM, + s1 s2 abd soft, nt, + distended ext improving 2+ b/l leg edema neuro- awake, alert, oriented and interactive Urinary Catheter Management: Puckett: Cath Placed During This Visit: yes Reason for Continuing Indwelling Catheter: Assist healing open wound Urinary Catheter Date of Insertion: 08/03/21 Urinary Catheter Time of Insertion: 19:01 Data : 08/07/21 02:45 08/07/21 02:45 A&P Assessment and plan (1) Acute kidney injury superimposed on CKD: 76 yr old female h/o PE, a fib, parkinsons, DM, HTN,moderate MR, charcots foot. Pt is here w/ wprsening volume overload, sob, johnson 1. CHF- mar 2021 echo-LV systolic function is normal with EF of 55-60% ?Diastolic function is indeterminate ?Moderate mitral regurgitation ?Mild tricuspid regurgitation -bnp [id number]- mildly improved on- iv loop diuretic. i will stop lasix as also on bumex 2. 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 ALBINO- from inc diuretics and CRS -renal fxn worsening w/ diuresis and she has htn and edema- would recommend to place a dialysis catheter and initiate HD soon 4. hyperphosphatemia- binders - pth 279. ca 7.8, vit d -28- give vit d and calcitriol 5. met alkalosis from diuretics- 6. leg edema and h/o PE- venous dopplers - no dvt 7. Q leg cellulitis- abx per medicine 8. anemia - monitor cbc, iron sat11.8%, ferr 29- iv iron and consider GI eval -await, spep -on iron 8. DM per medicine 9. uric acid 10. 6 from diuretics- give allopurinol 10. hypothyroidsim- tsh 28, please adjust levothyroxine seen and examined w/ RN- telehealth visit time spent >25 min Status: Acute Plan as above. hd in am Attestations Medical Necessity Statement*: progressive renal failure, edema, htn Time Spent in Patient Care: 16 - 35 minutes (>than 50% of time spent in counselling and/or direct pt care on unit). 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
--- NOTE | 2021-08-07 08:35 | P.PN_ITS ---
Subjective Subjective: Patient was seen and examined. Nephrology and hospitalist service requiring tunneled hemodialysis catheter placement. Medications: Reviewed: Yes Vitals/I&O/Wt Last Vital Signs Temp 97.7 F 08/07/21 08:00 Pulse 55 L 08/07/21 08:01 Resp 16 08/07/21 08:01 BP 150/71 08/07/21 08:00 Pulse Ox 94 08/07/21 08:01 08/06/21 08/07/21 08/07/21 22:59 06:59 14:59 Intake Total 936.883 / 1406.883 403.117 / 1810.000 Output Total 625 / 625 600 / 1225 Balance 311.883 / 781.883 -196.883 / 585.000 Weight last 48 hrs Weight 302 lb Physical Exam Narrative: Patient is conscious alert oriented X3 Mild apparent distress/short of breath BMI 47.3 Head and neck examination PERRLA no masses no cervical lymphadenopathy no jaundice Cardiac examination audible S1-S2 no murmurs no gallops no arrhythmias Chest is clear bilateral,abscence of Rhonchi or wheezes,no surgical emphysema Abdomen nontender nondistended soft no organomegaly guarding or rigidity/no signs of peritonitis Urinary Catheter Management: Puckett: Cath Placed During This Visit: yes Reason for Continuing Indwelling Catheter: Assist healing open wound Urinary Catheter Date of Insertion: 08/03/21 Urinary Catheter Time of Insertion: 19:01 Data : 08/07/21 02:45 08/07/21 02:45 A&P Assessment and plan (1) Acute kidney injury superimposed on CKD: Plan of care; After thorough history physical examination and reviewing the chart and reviweing the images with my personal intrepretation.I counseled the patient for tunneled hemodialysis catheter placement, indications, risks including possibility of , stroke, heart attack, major bleeding, infection, pneumonia, organ failure, failure to benefit, prolonged hospital stay, pain after the procedure pneumothorax that may require Chest tube(s) placement and potential injury of major vascular structures that may require Thoractomy, benefits,indications and alternatives were all discussed with the patient, patient understands and is interested to proceed. Rationale was carefully and clearly discussed with the patient.Appropriate informed consent have been reviewed and signed. 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
[2021-08-07 08:44] LABS: Glucose Point of Care 107 mg/dL (70-110)
[2021-08-07 08:44] LABS: Glucose Point of Care 144 mg/dL (70-110)
--- NOTE | 2021-08-07 08:53 | P.ANESASSM_ITS ---
Pre-Anesthetic Assessment Height/Weight: Height 1.7 m Weight 136.985 kg Temp Pulse Resp BP Pulse Ox 97.7 F 55 L 16 150/71 94 08/07/21 08:00 08/07/21 08:01 08/07/21 08:01 08/07/21 08:00 08/07/21 08:01 Operation Date: 08/07/21 12:20 Proposed Procedures p Dialysis Catheter Insertion(Not Applicable) - Pablo Marin MD Familial anesthetic complications: None Was Beta Akira taken within 24 hours: N/A Was Clonidine taken within 24 hours: N/A Last intake: > 8 hrs Social No alcohol and No tobacco Exam alert, oriented x 3, clear to auscultation bilaterally and regular rate & rhythm Airway Mallampati: Class IV Dentition: false (top) Pulmonary Shortness of Breath ? PE CV/HEM Anemia, Congestive Heart Failure and Hypertension echo 08/19 CONCLUSIONS ?Normal left ventricular size, systolic function and wall ?thickness, with no regional wall motion abnormalities. Left ?ventricular ejection fraction is estimated at 60 %. Grade I/IV ?diastolic dysfunction (abnormal relaxation filling pattern), ?normal to mildly elevated filling pressures. ?Normal right ventricular size and systolic function. Mild ?pulmonary hypertension, RVSP 37.6 mmHg. ?Mildly increased right atrial size. ?Mildly increased left atrial size. ?Structurally normal mitral valve. Mild mitral annular ?calcification. Mild mitral valve regurgitation. ?Structurally normal tricuspid valve. Severe tricuspid valve ?regurgitation. ALBINO Metabolic Diabetes Mellitus, Hyperlipidemia and Morbid Obesity Neuropsych Cerebrovascular Accident Anesthetic Plan ASA status: 4 Anesthesia: MAC Risk of > 500 ml blood loss (7ml/kg in children): No Medications/Allergies Home Medications Medication Instructions Recorded Confirmed Last Taken Type cholecalciferol (vitamin D3) 25 25 mcg PO DAILY 06/28/20 08/03/21 08/03/21 History mcg (1,000 unit) capsule clopidogrel 75 mg tablet (Plavix) 75 mg PO BEDTIME 06/28/20 08/03/21 08/02/21 History ferrous sulfate 325 mg (65 mg 325 mg PO BID 06/28/20 08/03/21 08/03/21 History iron) tablet (FeroSul) folic acid 1 mg tablet 1 mg PO QAM 06/28/20 08/03/21 08/03/21 History furosemide 40 mg tablet (Lasix) 40 mg PO BID 06/28/20 08/03/21 08/03/21 History hydralazine 25 mg tablet 12.5 mg PO TID tab 06/28/20 08/03/21 08/03/21 History carbidopa 25 mg-levodopa 100 mg 2 tab PO TID #360 tab 12/07/20 08/03/21 08/03/21 Rx tablet (Sinemet) albuterol sulfate 90 mcg/actuation 2 puff INHALATION Q6H PRN #6.7 g 02/01/21 08/03/21 Unknown Rx aerosol inhaler (ProAir HFA) fluticasone propionate 115 2 puff INHALATION BID #8 g 02/02/21 08/03/21 08/03/21 Rx mcg-salmeterol 21 mcg/actuation HFA inhaler (Advair HFA) bimatoprost 0.01 % eye drops 1 drp OPHTHALMIC (EYE) BEDTIME 03/31/21 08/03/21 08/02/21 History (Pepe) clonidine HCl 0.3 mg tablet 0.3 mg PO Q8H PRN 03/31/21 08/03/21 08/02/21 History duloxetine 60 mg capsule,delayed 60 mg PO DAILY@12 03/31/21 08/03/21 08/03/21 H istory release hydroxyzine pamoate 25 mg capsule 25 mg PO BEDTIME 03/31/21 08/03/21 08/02/21 History insulin aspart U-100 100 unit/mL See Rx Instructions .ROUTE .COMPLEX 03/31/21 08/03/21 03/31/21 08:00 History (3 mL) subcutaneous pen (Novolog 2 units Flexpen U-100 Insulin aspart) insulin glargine 100 unit/mL (3 80 unit SUBCUT QAM 03/31/21 08/03/21 08/03/21 History mL) subcutaneous pen (Lantus Solostar U-100 Insulin) potassium chloride 10 mEq 20 meq PO TID 03/31/21 08/03/21 08/03/21 History capsule,extended release ropinirole 0.5 mg tablet 0.5 mg PO BEDTIME 03/31/21 08/03/21 08/02/21 History solifenacin 5 mg tablet (Vesicare) 5 mg PO DAILY 12/06/2008/03/21 08/03/21 History thyroid (pork) 15 mg tablet 30 mg PO QAM 03/31/21 08/03/21 08/03/21 History ([place] Thyroid) metoprolol tartrate 100 mg tablet 100 mg PO BID #90 tab 04/02/21 08/03/21 08/03/21 Rx gabapentin 800 mg tablet 800 mg PO BID #180 tab 04/07/21 08/03/21 08/03/21 Rx ondansetron HCl 4 mg tablet 4 mg PO Q8H PRN #30 tab 04/07/21 08/03/21 Unknown Rx (Zofran) oxycodone-acetaminophen 7.5 mg-325 1 tab PO TID PRN 30 Days #90 tab 07/07/21 08/03/21 08/03/21 Rx mg tablet acetaminophen 500 mg tablet 1,000 mg PO Q6H PRN 08/03/21 08/03/21 Unknown History apixaban 5 mg tablet (Eliquis) 5 mg PO BID 08/03/21 08/03/21 08/03/21 History benzonatate 100 mg capsule 100 mg PO TID PRN 08/03/21 08/03/21 08/02/21 History budesonide 0.5 mg/2 mL suspension 0.5 mg INHALATION BID PRN 08/03/21 08/03/21 08/03/21 History for nebulization calcium 600 mg capsule 600 mg PO BID 08/03/21 08/03/21 08/03/21 History calcium carbonate 1,000 mg tablet 2,000 mg PO BID 08/03/21 08/03/21 08/03/21 History camphor-menthol 0.2 %-3.5 % 1 applic TOPICAL Q4H PRN 08/03/21 08/03/21 Unknown History topical gel diphenhydramine HCl 25 mg tablet 25 mg PO Q24H PRN 08/03/21 08/03/21 Unknown History honey 100 % topical paste 1 applic TOPICAL DAILY 08/03/21 08/03/21 08/02/21 History (MediHoney (honey)) ipratropium 0.5 mg-albuterol 3 mg 3 ml INHALATION Q6H PRN 08/03/21 08/03/21 08/02/21 History (2.5 mg base)/3 mL nebulization soln metolazone 5 mg tablet 5 mg PO DAILY 08/03/21 08/03/21 08/03/21 History mirtazapine 30 mg tablet 30 mg PO BEDTIME 08/03/21 08/03/21 08/02/21 History neomycin-bacitracn Zn-polymyxn 3.5 1 applic TOPICAL DAILY 08/03/21 08/03/21 08/03/21 History mg-400 unit-5,000 unit top oint pkt (Triple Antibiotic) simvastatin 40 mg tablet 40 mg PO BEDTIME 08/03/21 08/03/21 08/02/21 History Allergies Allergy/AdvReac Type Severity Reaction Status Date / Time sulfamethoxazole Allergy Rash Verified 08/04/21 18:48 [From ] trimethoprim [From Septra] Allergy Rash Verified 08/04/21 18:48 morphine AdvReac Personality Verified 08/04/21 18:48 Change pregabalin [From Lyrica] AdvReac Loopy/Unste Verified 08/04/21 18:48 anoop Current Medications Generic Name Dose Route Start Last Admin Trade Name Freq PRN Reason Stop Dose Admin Acetaminophen 650 mg 08/03/21 19:34 08/06/21 11:57 Acetaminophen 325 Mg Tablet PO 650 mg Q6H PRN Administration Mild/Mod Pain Or Temp >/= 101 Albuterol/Ipratropium 3 ml 08/03/21 20:41 08/04/21 20:42 Ipratropium-Albuterol 3 Ml Neb INHALATION 3 ml Q6H PRN Administration SHORTNESS OF BREATH Atorvastatin Calcium 20 mg 08/03/21 21:00 08/06/21 20:26 Atorvastatin 40 Mg Tablet PO 20 mg BEDTIME BILLIE Administration Clonidine HCl 1 patch 08/05/21 09:00 08/05/21 10:55 Clonidine 0.3 Mg/24 Hr Patch TRANSDERMA 1 patch Q7D BILLIE Administration Diphenhydramine HCl 25 mg 08/03/21 23:50 08/06/21 20:31 Diphenhydramine 50 Mg/Ml Sdv 1ml IVP 25 mg Q6H PRN Administration ITCHING Doxycycline Monohydrate 100 mg 08/05/21 18:00 08/06/21 17:23 Doxycycline 100 Mg Tablet PO 100 mg BID BILLIE Administration Protocol Duloxetine HCl 60 mg 08/04/21 12:00 08/06/21 11:57 Duloxetine 60 Mg Capsule PO 60 mg DAILY@12 BILLIE Administration Folic Acid 1 mg 08/04/21 06:00 08/07/21 05:27 Folic Acid 1 Mg Tablet PO 1 mg QAM BILLIE Administration Gabapentin 300 mg 08/04/21 09:00 08/06/21 17:24 Gabapentin 300 Mg Capsule PO 300 mg BID BILLIE Administration Heparin Sodium (Porcine) 0 unit 08/04/21 08:30 08/07/21 04:07 Heparin 5,000 Unit/Ml Inj 1 Ml IV 2,700 unit PRN PRN Administration Heparin weight-base protocol Protocol Hydralazine HCl 25 mg 08/04/21 11:00 08/07/21 05:27 Hydralazine 25 Mg Tablet PO 25 mg Q6H [facility] Administration Ferric Sodium Gluconate 125 mg 110 mls @ 110 mls/hr 08/04/21 09:00 08/06/21 14:39 / Sodium Chloride IV 08/11/21 12:59 Infused Q24H [facility] Infusion Heparin Sodium/Sodium Chloride 25,000 unit in 500 mls @ 0 mls/hr 08/04/21 08:30 08/07/21 04:45 Heparin Drip IV 8.43 unit/kg/hr .Q0M BILLIE 23 mls/hr Administration Protocol Per Protocol Insulin Glargine 40 unit 08/04/21 06:00 08/07/21 05:27 Insulin Glargine 100 Units/1 Ml SUBCUT 40 unit QAM [facility] Administration Insulin Human Lispro 0 unit 08/04/21 08:00 08/06/21 17:13 Insulin Lispro 100 Unit/1 Ml SUBCUT Not Given TIDWM [facility] Protocol Magnesium Oxide 400 mg 08/04/21 09:00 08/06/21 17:23 Magnesium Oxide 400 Mg Tablet PO 400 mg BID BILLIE Administration Metoprolol Tartrate 100 mg 08/04/21 09:00 08/06/21 17:23 Metoprolol Tartrate 50 Mg Tablet PO 100 mg BID [facility] Administration Multivitamins 1 each 08/04/21 09:00 08/06/21 08:07 C-Izbgukq-Eqdtstb C Tablet PO 1 each DAILY [facility] Administration Oxycodone/Acetaminophen 1 tab 08/04/21 19:00 08/06/21 17:24 Oxycodone-Apap 10-325 Mg Tablet PO 1 tab Q8H PRN Administration MODERATE PAIN Pantoprazole Sodium 40 mg 08/05/21 21:00 08/06/21 20:[address] 40 Mg Tablet PO 40 mg Q24H BILLIE Administration Ropinirole HCl 0.5 mg 08/03/21 21:00 08/06/21 20:26 Ropinirole 0.25 Mg Tablet PO 0.5 mg BEDTIME BILLIE Administration Spironolactone 50 mg 08/05/21 10:05 08/06/21 17:24 Spironolactone 25 Mg Tablet PO 50 mg BID BILLIE Administration Thyroid 180 mg 08/05/21 12:08 08/07/21 05:27 Thyroid 60 Mg Tablet PO 180 mg QAM BILLIE Administration Zinc Acetate/Diphenhydramine 1 applic 08/04/21 09:13 08/04/21 22:41 Diphenhydramine Cream 30 Gm TOPICAL 1 applic Q4H PRN Administration ITCHING Additional Medication Information Current Medications Acetaminophen (Acetaminophen 325 Mg Tablet) 650 mg PO Q6H PRN PRN Reason: Mild/Mod Pain Or Temp >/= 101 Last Admin: 08/06/21 11:57 Dose: 650 mg Documented by: Albuterol/Ipratropium (Ipratropium-Albuterol 3 Ml Neb) 3 ml INHALATION Q6H PRN PRN Reason: SHORTNESS OF BREATH Last Admin: 08/04/21 20:42 Dose: 3 ml Documented by: Amlodipine Besylate (Amlodipine 10 Mg Tablet) 10 mg PO Q24H [facility] Last Admin: 08/06/21 16:27 Dose: 10 mg Documented by: Atorvastatin Calcium (Atorvastatin 40 Mg Tablet) 20 mg PO BEDTIME [facility] Last Admin: 08/06/21 20:26 Dose: 20 mg Documented by: Bumetanide (Bumetanide 0.25 Mg/Ml Sdv 4 Ml) 1 mg IVP Q8H BILLIE Last Admin: 08/06/21 06:00 Dose: 1 mg Documented by: Clonidine HCl (Clonidine 0.3 Mg/24 Hr Patch) 1 patch TRANSDERMA Q7D [facility] Last Admin: 08/05/21 10:55 Dose: 1 patch Documented by: Dextrose (Dextrose 50% Syringe 50 Ml) 25 ml IVP ONCE PRN; Protocol PRN Reason: hypoglycemia protocol Dextrose (Dextrose 50% Syringe 50 Ml) 50 ml IVP PRN PRN; Protocol PRN Reason: hypoglycemia protocol Diphenhydramine HCl (Diphenhydramine 50 Mg/Ml Sdv 1ml) 25 mg IVP Q6H PRN PRN Reason: ITCHING Last Admin: 08/06/21 20:31 Dose: 25 mg Documented by: Doxycycline Monohydrate (Doxycycline 100 Mg Tablet) 100 mg PO BID [facility]; Protocol Last Admin: 08/06/21 17:23 Dose: 100 mg Documented by: Duloxetine HCl (Duloxetine 60 Mg Capsule) 60 mg PO DAILY@12 [facility] Last Admin: 08/06/21 11:57 Dose: 60 mg Documented by: Folic Acid (Folic Acid 1 Mg Tablet) 1 mg PO QAM [facility] Last Admin: 08/07/21 05:27 Dose: 1 mg Documented by: Gabapentin (Gabapentin 300 Mg Capsule) 300 mg PO BID [facility] Last Admin: 08/06/21 17:24 Dose: 300 mg Documented by: Glucagon (Glucagon 1 Mg/Ml Inj 1 Ml) 1 mg IM ONCE PRN; Protocol PRN Reason: Adult Acute Hypoglycemia Prot. Heparin Sodium (Porcine) (Heparin 5,000 Unit/Ml Inj 1 Ml) 0 unit IV PRN PRN; Protocol PRN Reason: Heparin weight-base protocol Last Admin: 08/07/21 04:07 Dose: 2,700 unit Documented by: Hydralazine HCl (Hydralazine 25 Mg Tablet) 25 mg PO Q6H [facility] Last Admin: 08/07/21 05:27 Dose: 25 mg Documented by: Dextrose (D5w) 500 mls @ 100 mls/hr IV ONCE PRN; Protocol PRN Reason: Adult Acute Hypoglycemia Prot Ferric Sodium Gluconate 125 mg (/ Sodium Chloride) 110 mls @ 110 mls/hr IV Q24H [facility] Stop: 08/11/21 12:59 Last Infusion: 08/06/21 14:39 Dose: Infused Documented by: Heparin Sodium/Sodium Chloride (Heparin Drip) 25,000 unit in 500 mls @ 0 mls/hr IV .Q0M [facility]; Protocol Last Admin: 08/07/21 04:45 Dose: 8.43 unit/kg/hr, 23 mls/hr Documented by: Insulin Glargine (Insulin Glargine 100 Units/1 Ml) 40 unit SUBCUT [facility] Last Admin: 08/07/21 05:27 Dose: 40 unit Documented by: Insulin Human Lispro (Insulin Lispro 100 Unit/1 Ml) 0 unit SUBCUT TIDWM [facility]; Protocol Last Admin: 08/06/21 17:13 Dose: Not Given Documented by: Magnesium Oxide (Magnesium Oxide 400 Mg Tablet) 400 mg PO BID [facility] Last Admin: 08/06/21 17:23 Dose: 400 mg Documented by: Metoprolol Tartrate (Metoprolol Tartrate 50 Mg Tablet) 100 mg PO BID [facility] Last Admin: 08/06/21 17:23 Dose: 100 mg Documented by: Multivitamins (H-Ogllpfg-Saprynh C Tablet) 1 each PO DAILY [facility] Last Admin: 08/06/21 08:07 Dose: 1 each Documented by: Ondansetron HCl (Ondansetron 2 Mg/Ml Sdv 2 Ml) 4 mg IVP Q8H PRN PRN Reason: vomiting, or N/V if npo Oxycodone/Acetaminophen (Oxycodone-Apap 10-325 Mg Tablet) 1 tab PO Q8H PRN PRN Reason: MODERATE PAIN Last Admin: 08/06/21 17:24 Dose: 1 tab Documented by: Pantoprazole Sodium (Pantoprazole Dr 40 Mg Tablet) 40 mg PO Q24H [facility] Last Admin: 08/06/21 20:26 Dose: 40 mg Documented by: Ropinirole HCl (Ropinirole 0.25 Mg Tablet) 0.5 mg PO BEDTIME [facility] Last Admin: 08/06/21 20:26 Dose: 0.5 mg Documented by: Spironolactone (Spironolactone 25 Mg Tablet) 50 mg PO BID [facility] Last Admin: 08/06/21 17:24 Dose: 50 mg Documented by: Thyroid (Thyroid 60 Mg Tablet) 180 mg PO QAM [facility] Last Admin: 08/07/21 05:27 Dose: 180 mg Documented by: Zinc Acetate/Diphenhydramine (Diphenhydramine Cream 30 Gm) 1 applic TOPICAL Q4H PRN PRN Reason: ITCHING Last Admin: 08/04/21 22:41 Dose: 1 applic Documented by: [facility] Anesthesia Medical History Anemia in chronic illness Chronic insomnia Chronic renal insufficiency COPD (chronic obstructive pulmonary disease) Diabetes mellitus type 2, insulin dependent Diabetic neuropathy Fibromyalgia History of CVA (cerebrovascular accident) Hyperlipemia Hypertension Hypothyroidism Lumbar disc disease with radiculopathy Neuropathy Parkinson disease Post laminectomy syndrome Sciatica associated with disorder of lumbosacral spine Stage 4 chronic renal impairment associated with type 2 diabetes mellitus Uncontrolled insulin dependent diabetes mellitus Vitamin D deficiency Surgical History Hx of cholecystectomy Hx of foot surgery Hx of hysterectomy Family History Father CAD (coronary artery disease) Mother CAD (coronary artery disease) Diabetes Grandfather CAD (coronary artery disease) Diabetes Social History Smoking and tobacco status: former smoker Second hand smoke exposure: No Alcohol intake: current Alcohol intake frequency: holidays/special occasions only Alcohol type: hard liquor History of recent travel: No Data Anesthesia : 08/07/21 02:45 08/07/21 02:45 Short CBC 08/06/21 08/07/21 Range/Units 05:24 02:45 WBC 14.0 H 11.3 H (4.0-10.0) 10^3/uL Hgb 8.7 L 8.6 L (11.5-15.3) g/dL Hct 29.3 L 28.5 L (37.0-47.0) % MCV 95.1 93.8 (81-99) fl Plt Count 358 298 (130-400) 10^3/cmm Neut % (Auto) 74.3 74.7 % Neut # (Auto) 10.42 H 8.42 H (1.8-7.7) 10^3/uL BMP 08/06/21 08/07/21 05:24 02:45 Sodium 136 139 Potassium 4.0 4.6 Chloride 94 L 94 L Carbon Dioxide 28 28 BUN 71 H 75 H Creatinine 4.2 H 4.5 H Glucose 88 120 H Calcium 8.2 L 8.5 Cardiac Enzymes 08/06/21 08/06/21 08/07/21 Range/Units 05:24 05:24 02:45 Creatine Kinase 103 Cancelled (26-192) U/L NT-Pro-B Natriuret Pep 94410 H Cancelled 99281 H (0-450) pg/mL Liver Function 08/06/21 08/07/21 Range/Units 05:24 02:45 Total Bilirubin 0.5 0.4 (0.15-1.2) mg/dL AST 44 H 34 H (0-32) U/L ALT 16 16 (0-33) U/L Alkaline Phosphatase 170 H 226 H (35-105) IU/L Albumin 3.2 L 3.1 L (3.5-5.2) g/dL Coags 08/05/21 08/05/21 08/05/21 09:15 16:34 22:30 APTT 68.5 H 75.7 H 75.5 H C-Reactive Protein 08/06/21 08/06/21 08/06/21 05:24 11:45 18:14 APTT 66.0 H 37.2 H 49.4 H C-Reactive Protein 08/07/21 08/07/21 02:45 02:45 APTT 53.7 H C-Reactive Protein 104.6 H Cardiac Studies: Echocardiogram 08/03/21
[2021-08-07] MEDS: b-complex-vitamin c Tablet 1 EACH PO (09:16)
[2021-08-07] MEDS: doxycycline 100 mg Tablet PO ×2 (09:16→17:58)
[2021-08-07] MEDS: magnesium oxide 400 mg tablet PO ×2 (09:16→17:58)
[2021-08-07] MEDS: spironolactone 25 mg Tablet 50 MG PO ×2 (09:16→17:58)
[2021-08-07] MEDS: metoprolol tartrate 50 mg Tablet 100 MG PO ×2 (09:17→17:59)
[2021-08-07] MEDS: gabapentin 300 mg Capsule PO ×2 (09:17→17:59)
--- NOTE | 2021-08-07 09:23 | P.PN_ITS ---
Subjective Subjective: Patient was seen this morning, she is wheezing this morning, does report slight shortness of breath, her lower extreme edema persists, no nausea, no vomiting, she has not eaten or drank anything since last night, we will keep her n.p.o. discussed dialysis catheter placement, and risks and benefits, she voiced understanding, all questions answered agreed to proceed, also spoke to her daughter alex over the phone Vitals/I&O/Wt Last Vital Signs Temp 97.7 F 08/07/21 08:00 Pulse 55 L 08/07/21 08:01 Resp 16 08/07/21 08:01 BP 150/71 08/07/21 08:00 Pulse Ox 94 08/07/21 08:01 08/06/21 08/07/21 08/07/21 22:59 06:59 14:59 Intake Total 936.883 / 1406.883 403.117 / 1810.000 Output Total 625 / 625 600 / 1225 225 / 225 Balance 311.883 / 781.883 -196.883 / 585.000 -225 / -225 Weight last 48 hrs Weight 136.985 kg Physical Exam Const: COMMON NORMALS: no acute distress and patient oriented x3 Resp: COMMON NORMALS: normal respiratory effort, No retractions and No use of accessory muscles AUSCULTATION: wheezes Cardio: COMMON NORMALS: regular rate, regular rhythm, S1 normal heart sound present and S2 normal heart sound present RATE: regular rate RHYTHM: regular rhythm HEART SOUNDS: S1 normal heart sound present and S2 normal heart sound present GI: COMMON NORMALS: Normal to inspection, nondistended, normoactive bowel s ounds present, Soft to palpation and non-tender PALPATION: Yes Soft to pa lpation Extremity: NARRATIVE EXTREMITY EXAM: 2+ pitting edema bilateral extremity, multiple open sores, superficial, Neuro: COMMON NORMALS: patient oriented x3 Psych: COMMON NORMALS: mental status grossly normal Urinary Catheter Management: Puckett: Cath Placed During This Visit: yes Reason for Continuing Indwelling Catheter: Assist healing open wound Urinary Catheter Date of Insertion: 08/03/21 Urinary Catheter Time of Insertion: 19:01 Data : 08/07/21 02:45 08/07/21 02:45 A&P Assessment and plan (1) Bilateral lower extremity edema: Status: Acute (2) Acute exacerbation of CHF (congestive heart failure): Status: Acute (3) Cellulitis: Status: Acute (4) Acute kidney injury superimposed on CKD: Status: Acute (5) Diabetes mellitus type 2, insulin dependent: Status: Acute (6) Vitamin D deficiency: Status: Acute Plan Bilateral lower extremity edema likely from diastolic CHF exacerbation and fluid overload -Has not responded to outpatient diuretics -Responding well to diuresis, but due to creatinine increase Bumex on hold, but creatinine up to 4.5, urine output 1450 cc of urine output, continues to have wheezing on exam, bilateral extreme edema -Held Bumex 1 mg every 8 hours, fluid restriction 1500 cc, monitor urine output, Place Puckett catheter -Nephrology consulted for dialysis, dialysis tomorrow -Dr. Marin has been consulted, plans of dialysis catheter later on today -Continue to hold Plavix -Hold heparin drip -DNR/DNI -SCDs for DVT prophylaxis, heparin for DVT prophylaxis Bilateral lower extremity cellulitis -Erythema, edema -Blood cultures so far negative MRSA PCR so far negative -On doxycycline Type 2 diabetes mellitus, continue Lantus, low-dose sliding scale A. fib, continue home metoprolol, hold heparin drip History of CVA, Plavix on hold given possible surgical invention, risk of bleeding during surgery, hold heparin drip Hypertensive urgency, blood pressures are elevated in the emergency room, continues to have elevated blood pressures -Clonid 0.3 mg patch patch every 7 days -Aldactone added -Hydralazine 25 4 times daily -Minoxidil has been stopped due to concerns for worsening lower extremity edema History of pulmonary embolism, high probability VQ scan, could not undergo a CT angiogram given creatinine, was on Eliquis, hold for now, on heparin drip Chronic pain, continue home oxycodone 10-325 3 times daily Hypothyroidism elevated TSH, free T3, free T4, RLC within normal limits, increase levothyroxine to 175, recheck TSH in 6 weeks Attestations Medical Necessity Statement*: Patient requires hospitalization for end-stage renal disease requiring permacath placement, dialysis tomorrow, fluid overload, diastolic CHF exacerbation Coding Level of Care Code Acute Field Sales Engineer for [facility] Fw Diagnoses Bilateral lower extremity edema R60.0 Acute exacerbation of CHF (congestive heart failure) I50.9 Cellulitis L03.90 Acute kidney injury superimposed on CKD N17.9; N18.9 Diabetes mellitus type 2, insulin dependent E11.9; Z79.4 Vitamin D deficiency E55.9
--- NOTE | 2021-08-07 11:53 | SC_ITS ---
WS: [id number] C-ARM RADIOGRAPHS CHEST; 3 IMAGES HISTORY: Power port Placement COMPARISON: None available. Intraoperative imaging during power port placement. Catheter extends into the RIGHT jugular vein. The tips overlie the distal SVC. SC/C-arm FL for CVA [id number] IMPRESSION: Intraoperative imaging during power port placement.
[2021-08-07] MEDS: sodium chloride 0.9% 1,000 ML 30 ML IV (11:57)
[2021-08-07] MEDS: lidocaine 2% INJ 20 mL INJECTION (12:39)
[2021-08-07] MEDS: heparin, porcine 1,000 unit/mL INJ 10 mL 10000 UNIT INJECTION (12:39)
--- NOTE | 2021-08-07 12:57 | XRR_ITS ---
PROCEDURE INFORMATION: Exam: XR Chest Exam date and time: 08/07/2021 1:14 PM Age: 76 years old Clinical indication: Device placement; Other: Dialysis cather; Prior surgery; Surgery date: Post-operative (0-2 days); Additional info: Post surgery TECHNIQUE: Imaging protocol: XR of the chest. Views: 1 view. COMPARISON: CR XR chest 1V portable [id number] 08/03/2021 3:58 PM FINDINGS: Tubes, catheters and devices: A right central line extends into the right atrium. Electronic stimulator wire is in the lower dorsal spine. Lungs: Low lung volumes seen. No consolidation. Pleural spaces: Elevated right hemidiaphragm is seen.. No pleural effusion. No pneumothorax. Heart/Mediastinum: Unremarkable. No cardiomegaly. Bones/joints: Unremarkable. XR/XR chest 1V portable [id number] IMPRESSION: 1. No acute findings. 2. Right central line is in the right atrium. 3. Electronic stimulator wire lower dorsal spine
--- NOTE | 2021-08-07 13:02 | P.OP_ITS ---
Operative Report Date of procedure: August 07, 2021 Pre-op diagnosis: Preop Diagnosis End-stage renal disease Post-op diagnosis: The same Post-op findings: Cardiomegaly Procedure done: 1.? Placement of 16 [place] 23/28 cm long AshSplit tunneled hemodialysis catheter right internal jugular vein 2.? Fluoroscopic guidance and interpretation for placement of catheter 3.? Ultrasound guidance to access the right internal jugular vein Implants: Placement of 16 [place] 23/28 cm long AshSplit tunneled hemodialysis catheter right internal jugular vein Surgeon: Surgeon: Pablo Marin MD Shrimping Boat Captain: optics manufacturing technician Rebeca Circulating nurse Melissa Anesthesia: MAC (serologist Will Smart) Estimated blood loss (mL): 10 Procedure: Procedure: Patient was identified in the holding area and taken to the operative room and placed in supine position ,both arms were tucked,Time-out was done verifying the patient's name/date of /planned procedure and destination after the procedure, all were in agreement.SCDs confirmed to be functioning, intubated by anesthesia ,patient was given prophylactic antibiotics administered per protocol, and beta savanah protocol was confirmed, appropriate positioning of the patient was done by me. Medications were reviewed to assess for anticoagulant usage.? Risks and benefits and prevention of central line associated blood stream infection (CLABSI) were discussed with the patient/CPOA, and a consent was obtained.? Monitors were in place and monitored throughout the procedure. All necessary supplies were available prior to start.? Hand hygiene was completed prior to starting.? Maximum barrier technique was utilized including a sterile gown, sterile gloves with a hat and mask.? Site was was prepped with [chlorhexidine] and a full body drape was placed. 5 mL of 2% lidocaine was injected into the skin with a 25 gauge needle. Prep& drape was done under the usual sterile technique of upper chest right and left as well as the neck both sides, lidocaine 2% was injected at the site of the stick, under ultrasound guidance there was no intraluminal thrombosis of the internal jugular vein.? Per my personal interpretation started by right internal jugular vein stick that retrieved venous blood after multiple attempts as the patient was little bit dehydrated in spite of having him in Trendelenburg position I was able to retrieve venous blood,and a guidewire was then threaded without any difficulty and under the guidance of fluoroscopy position was confirmed to be in the IVC, there was no PVC changes, at that point the guidewire was secured to the drapes with a hemostat and the needle was taken out, attention was then deviated towards creation of an insert for the HD catheter at the right upper chest, were lidocaine 2% was injected using an 11 blade knife skin incision was created dissection using a hemostat to create an entrance and? for the HD catheter? to be inserted were it was connected to a tunneler, and the tunneler was used to accommodate the catheter of the HD catheter to be delivered through the incision first created at the site of the stick ,which is at the right side of the neck, a small dale was created with 11 blade knife to allow delivery of the catheter outside the wound ,at that point under fluoroscopy,serial dilators were done that come in the in the KIT, followed by that a dilator with the sheath introduced onto the guidewire ,the dilator and the wire were retrieved and the catheter of the port was introduced via the sheath where it was peeled off and the catheter maintained, to be in good position in the right atrium.? There was a small kink at the curve of the catheter that wires were used and the kink was resolved. Both ports were flushed with diluted heparin and appropriate blood was retrieved first, Hep-Lock's were then applied The whole procedure was done under fluoroscopy , the position maintained to be in the rt atrium that was confirmed with fluoroscopy, and the fluoroscopy interpretation was done by me throughout the entire procedure. The stick site was closed by 3-0 Vicryl deep subdermal interrupted sutures, followed by 4-0 Monocryl and Dermabond was used followed by dry dressing was applied. A 3/0 nylon was used to secure the hemodialysis catheter onto the anterior chest wall Patient tolerated the procedure well was taken to the recovery area Count was correct at the end of the procedure I was present for the whole entire procedure. Position of the catheter was checked with a postoperative chest x-ray and it was in good position without evidence of pneumothorax on both sides of the Thorax.
[2021-08-07 14:21] LABS: Hepatitis B Surface Antigen Non-Reactive (Nonreactive)
[2021-08-07 14:30] LABS: Hepatitis B Surface AB < 3.5 (11.5-1000)
--- NOTE | 2021-08-07 15:49 | PC.NURSE ---
Waiting on PTT results to restart Heparin drip per protocol.
[2021-08-07 16:17] LABS: Partial Thromboplastin Time 42.4 SECONDS (23.9-36.7)
[2021-08-07] MEDS: oxyCODONE-APAP 10-325 mg Tablet 1 TAB PO (17:01)
[2021-08-07 17:26] LABS: Glucose Point of Care 71 mg/dL (70-110)
[2021-08-07] MEDS: pantoprazole DR 40 mg Tablet PO (21:14)
[2021-08-07] MEDS: ropinirole 0.25 mg Tablet 0.5 MG PO (21:14)
[2021-08-07] MEDS: atorvastatin 40 mg Tablet 20 MG PO (21:14)
[2021-08-07] MEDS: bumetanide 0.25 mg/mL SDV 4 mL 1 MG IVP (21:15)
[2021-08-07] MEDS: diphenhydrAMINE 50 mg/mL SDV 1mL 25 MG IVP (21:25)
[2021-08-07] MEDS: HYDROmorphone 1 mg/mL INJ 1 mL IVP (22:18)
[2021-08-08] VITALS (12 sets, daily range): BP systolic 135–178; BP diastolic 57–76; PULSE 52–72; RESP 16–18; TEMP 36.3–37.1; O2SAT 92–98
[2021-08-08 00:09] LABS: Partial Thromboplastin Time 82.8 SECONDS (23.9-36.7)
[2021-08-08] MEDS: oxyCODONE-APAP 10-325 mg Tablet 1 TAB PO ×2 (04:06→12:30)
[2021-08-08] MEDS: diphenhydrAMINE 50 mg/mL SDV 1mL 25 MG IVP ×3 (05:25→18:43)
[2021-08-08] MEDS: hyDRALAzine 25 mg Tablet PO (05:25)
[2021-08-08] MEDS: thyroid 60 mg Tablet 180 MG PO (05:25)
[2021-08-08] MEDS: folic acid 1 mg Tablet PO (05:26)
[2021-08-08] MEDS: insulin glargine 100 units/1 mL 40 UNIT SUBCUT (05:26)
[2021-08-08 06:25] LABS: Glucose Point of Care 153 mg/dL (70-110)
[2021-08-08 06:26] LABS: Glucose Point of Care 126 mg/dL (70-110)
[2021-08-08] MEDS: heparin drip 25,000 UNIT/500 ML PREMIX 25 UNIT IV (06:35)
--- NOTE | 2021-08-08 07:20 | PM.PN ---
Subjective Subjective: swollen, itching. less sob. no n/v/f/c/egan/d Medications: Reviewed: Yes Medication Review Details: Current Medications Acetaminophen (Acetaminophen 325 Mg Tablet) 650 mg PO Q6H PRN PRN Reason: Mild/Mod Pain Or Temp >/= 101 Last Admin: 08/06/21 11:57 Dose: 650 mg Documented by: Albuterol/Ipratropium (Ipratropium-Albuterol 3 Ml Neb) 3 ml INHALATION Q6H PRN PRN Reason: SHORTNESS OF BREATH Last Admin: 08/04/21 20:42 Dose: 3 ml Documented by: Amlodipine Besylate (Amlodipine 10 Mg Tablet) 5 mg PO Q24H [facility]ILLIE Atorvastatin Calcium (Atorvastatin 40 Mg Tablet) 20 mg PO BEDTIME [facility] Last Admin: 08/07/21 21:14 Dose: 20 mg Documented by: Bumetanide (Bumetanide 0.25 Mg/Ml Sdv 4 Ml) 1 mg IVP Q12H [facility] Last Admin: 08/07/21 21:15 Dose: 1 mg Documented by: Clonidine HCl (Clonidine 0.3 Mg/24 Hr Patch) 1 patch TRANSDERMA Q7D [facility] Last Admin: 08/05/21 10:55 Dose: 1 patch Documented by: Dextrose (Dextrose 50% Syringe 50 Ml) 25 ml IVP ONCE PRN; Protocol PRN Reason: hypoglycemia protocol Dextrose (Dextrose 50% Syringe 50 Ml) 50 ml IVP PRN PRN; Protocol PRN Reason: hypoglycemia protocol Diphenhydramine HCl (Diphenhydramine 50 Mg/Ml Sdv 1ml) 25 mg IVP Q6H PRN PRN Reason: ITCHING Last Admin: 08/08/21 05:25 Dose: 25 mg Documented by: Doxycycline Monohydrate (Doxycycline 100 Mg Tablet) 100 mg PO BID [facility]; Protocol Last Admin: 08/07/21 17:58 Dose: 100 mg Documented by: Duloxetine HCl (Duloxetine 60 Mg Capsule) 60 mg PO DAILY@12 BILLIE Last Admin: 08/06/21 11:57 Dose: 60 mg Documented by: Fentanyl (Fentanyl 50 Mcg/Ml Inj 2ml) 100 mcg IVP ONCE PRN PRN Reason: Per anesthesia for block Folic Acid (Folic Acid 1 Mg Tablet) 1 mg PO QAM [facility] Last Admin: 08/08/21 05:26 Dose: 1 mg Documented by: Gabapentin (Gabapentin 300 Mg Capsule) 300 mg PO BID [facility] Last Admin: 08/07/21 17:59 Dose: 300 mg Documented by: Glucagon (Glucagon 1 Mg/Ml Inj 1 Ml) 1 mg IM ONCE PRN; Protocol PRN Reason: Adult Acute Hypoglycemia Prot. Heparin Sodium (Porcine) (Heparin 5,000 Unit/Ml Inj 1 Ml) 0 unit IV PRN PRN; Protocol PRN Reason: Heparin weight-base protocol Last Admin: 08/07/21 04:07 Dose: 2,700 unit Documented by: Hydralazine HCl (Hydralazine 25 Mg Tablet) 25 mg PO Q6H [facility] Last Admin: 08/08/21 05:25 Dose: 25 mg Documented by: Dextrose (D5w) 500 mls @ 100 mls/hr IV ONCE PRN; Protocol PRN Reason: Adult Acute Hypoglycemia Prot Ferric Sodium Gluconate 125 mg (/ Sodium Chloride) 110 mls @ 110 mls/hr IV Q24H [facility] Stop: 08/12/21 12:59 Last Infusion: 08/06/21 14:39 Dose: Infused Documented by: Heparin Sodium/Sodium Chloride (Heparin Drip) 25,000 unit in 500 mls @ 0 mls/hr IV .Q0M [facility]; Protocol Last Admin: 08/08/21 06:35 Dose: 9.16 unit/kg/hr, 25 mls/hr Documented by: Insulin Glargine (Insulin Glargine 100 Units/1 Ml) 40 unit SUBCUT QAM [facility] Last Admin: 08/08/21 05:26 Dose: 40 unit Documented by: Insulin Human Lispro (Insulin Lispro 100 Unit/1 Ml) 0 unit SUBCUT TIDWM [facility]; Protocol Last Admin: 08/07/21 17:59 Dose: Not Given Documented by: Magnesium Oxide (Magnesium Oxide 400 Mg Tablet) 400 mg PO BID [facility] Last Admin: 08/07/21 17:58 Dose: 400 mg Documented by: Metoprolol Tartrate (Metoprolol Tartrate 50 Mg Tablet) 100 mg PO BID [facility] Last Admin: 08/07/21 17:59 Dose: 100 mg Documented by: Multivitamins (B-Xnscltc-Ekoffad C Tablet) 1 each PO DAILY [facility] Last Admin: 08/07/21 09:16 Dose: 1 each Documented by: Ondansetron HCl (Ondansetron 2 Mg/Ml Sdv 2 Ml) 4 mg IVP Q8H PRN PRN Reason: vomiting, or N/V if npo Oxycodone/Acetaminophen (Oxycodone-Apap 10-325 Mg Tablet) 1 tab PO Q8H PRN PRN Reason: MODERATE PAIN Last Admin: 08/08/21 04:06 Dose: 1 tab Documented by: Pantoprazole Sodium (Pantoprazole Dr 40 Mg Tablet) 40 mg PO Q24H [facility] Last Admin: 08/07/21 21:14 Dose: 40 mg Documented by: Ropinirole HCl (Ropinirole 0.25 Mg Tablet) 0.5 mg PO BEDTIME [facility] Last Admin: 08/07/21 21:14 Dose: 0.5 mg Documented by: Spironolactone (Spironolactone 25 Mg Tablet) 50 mg PO BID [facility] Last Admin: 08/07/21 17:58 Dose: 50 mg Documented by: Thyroid (Thyroid 60 Mg Tablet) 180 mg PO QAM [facility] Last Admin: 08/08/21 05:25 Dose: 180 mg Documented by: Zinc Acetate/Diphenhydramine (Diphenhydramine Cream 30 Gm) 1 applic TOPICAL Q4H PRN PRN Reason: ITCHING Last Admin: 08/04/21 22:41 Dose: 1 applic Documented by: Vitals/I&O/Wt Last Vital Signs Temp 98.1 F 08/08/21 04:00 Pulse 53 L 08/08/21 04:00 Resp 18 08/08/21 04:06 BP 167/76 08/08/21 04:00 Pulse Ox 95 08/08/21 04:00 08/07/21 08/08/21 08/08/21 22:59 06:59 14:59 Intake Total 427.883 / 537.883 452.117 / 990.000 Output Total 150 / 150 Balance 427.883 / -17.117 452.117 / 435.000 -150 / -150 Weight last 48 hrs Weight 136.985 kg Physical Exam Narrative: swollen in bed, NARD VS noted heent- nc/at, eomi, anicteric neck supple, rt ij dialysis catheter lungs- b/l crackles heart reg+SHAHRAM, + s1 s2 abd soft, nt, + distended ext improving 2+ b/l leg edema neuro- awake, alert, oriented and interactive Urinary Catheter Management: Puckett: Cath Placed During This Visit: yes Reason for Continuing Indwelling Catheter: Assist healing open wound Urinary Catheter Date of Insertion: 08/03/21 Urinary Catheter Time of Insertion: 19:01 Data : 08/07/21 02:45 08/07/21 02:45 A&P Assessment and plan (1) Acute kidney injury superimposed on CKD: 76 yr old female h/o PE, a fib, parkinsons, DM, HTN,moderate MR, charcots foot. Pt is here w/ wprsening volume overload, sob, johnson 1. CHF- mar 2021 echo-LV systolic function is normal with EF of 55-60% ?Diastolic function is indeterminate ?Moderate mitral regurgitation ?Mild tricuspid regurgitation -bnp [id number]- mildly improved on- iv loop diuretic. i will stop lasix as also on bumex 2. 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 ALBINO- from inc diuretics and CRS -renal fxn worsened w/ diuresis and she has htn and edema- Dr. Marin placed a dialysis catheter and will initiate HD today 4. hyperphosphatemia- binders - pth 279. ca 7.8, vit d -28- give vit d and calcitriol 5. met alkalosis from diuretics- 6. leg edema and h/o PE- venous dopplers - no dvt 7. Q leg cellulitis- abx per medicine 8. anemia - monitor cbc, iron sat11.8%, ferr 29- iv iron and consider GI eval -await, spep -on iron 8. DM per medicine 9. uric acid 10. 6 from diuretics- give allopurinol 10. hypothyroidsim- tsh 28, please adjust levothyroxine seen and examined w/ RN- telehealth visit time spent >25 min Status: Acute Plan as above. hd now Attestations Medical Necessity Statement*: chf, htn, progressive renal failure Time Spent in Patient Care: 16 - 35 minutes (>than 50% of time spent in counselling and/or direct pt care on unit). 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
--- NOTE | 2021-08-08 08:05 | PC.SOCIAL ---
IMM Update pg 2 of IMM updated and reviewed w/ patient. Copy provided and Copy in chart updated.
--- NOTE | 2021-08-08 08:12 | P.PN_ITS ---
Subjective Subjective: Patient overall doing well Vitals/I&O/Wt Last Vital Signs Temp 97.7 F 08/08/21 07:23 Pulse 53 L 08/08/21 07:23 Resp 17 08/08/21 07:23 BP 173/71 08/08/21 07:23 Pulse Ox 94 08/08/21 07:23 08/07/21 08/08/21 08/08/21 22:59 06:59 14:59 Intake Total 427.883 / 537.883 452.117 / 990.000 Output Total 150 / 150 Balance 427.883 / -17.117 452.117 / 435.000 -150 / -150 Weight last 48 hrs Weight 302 lb Physical Exam Narrative: Patient is conscious alert oriented X3 Feels better today BMI 47.3 Head and neck examination PERRLA no masses no cervical lymphadenopathy no jaundice Right upper chest HD catheter in place without complication Urinary Catheter Management: Puckett: Cath Placed During This Visit: yes Reason for Continuing Indwelling Catheter: Assist healing open wound Urinary Catheter Date of Insertion: 08/03/21 Urinary Catheter Time of Insertion: 19:01 Data : 08/08/21 09:15 08/08/21 09:15 A&P Assessment and plan (1) Acute kidney injury superimposed on CKD: Assessment 76 years old female patient status post right internal jugular vein tunneled hemodialysis catheter placement 08/07/2021 plan of care; Education about HD catheter Defer to nephrology for dialysis Assurance and education All questions have been answered and all concerns have been addressed to patient's satisfaction. 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
[2021-08-08] MEDS: magnesium oxide 400 mg tablet PO ×2 (08:42→17:17)
[2021-08-08] MEDS: metoprolol tartrate 50 mg Tablet 100 MG PO ×2 (08:42→17:18)
[2021-08-08] MEDS: spironolactone 25 mg Tablet PO ×2 (08:42→17:18)
[2021-08-08] MEDS: gabapentin 300 mg Capsule PO ×2 (08:42→17:18)
[2021-08-08] MEDS: doxycycline 100 mg Tablet PO ×2 (08:42→17:17)
[2021-08-08] MEDS: amlodipine 10 mg Tablet 5 MG PO (08:43)
[2021-08-08 09:28] LABS: Basophils # 0.1 10^3/uL (0.0-0.1); Basophils % 0.8 %; Eosinophils # 0.2 10^3/uL (0.0-0.8); Eosinophils % 2.2 %; Hematocrit 28.2 % (37.0-47.0); Hemoglobin 8.5 g/dL (11.5-15.3); Lymphocytes # 1.3 10^3/uL (0.8-4.8); Lymphocytes % 13.9 %; Mean Corpuscular HGB Conc 30.1 g/dL (30.0-36.0); Mean Corpuscular Hemoglobin 28.2 pg (28.0-34.0); Mean Corpuscular Volume 93.7 fl (81-99); Mean Platelet Volume 10.6 fL (7.4-10.4); Monocytes # 0.8 10^3/uL (0.2-0.9); Monocytes % 8.2 %; Neutrophils # 7.03 10^3/uL (1.8-7.7); Neutrophils % 74.6 %; Nucleated Red Blood Cells % 0 %; Platelet Count 308 10^3/cmm (130-400); Red Blood Count 3.01 10^6/uL (4.1-5.3); Red Cell Distribution Width 20.6 % (12.1-15.1); White Blood Count 9.4 10^3/uL (4.0-10.0)
[2021-08-08 09:51] LABS: Alanine Aminotransferase 17 U/L (0-33); Alkaline Phosphatase 223 IU/L (35-105); Anion Gap 19.5 (5-19); Aspartate Amino Transferase 26 U/L (0-32); Blood Urea Nitrogen 75 mg/dL (8-23); C Reactive Protein 82.5 mg/L (0.0-4.9); Calcium 8.4 mg/dL (8.5-10.5); Carbon Dioxide 25 mmol/L (22-29); Chloride 94 mmol/L (98-107); Globulin 3.4 g/dL (1.3-4.6); Glucose 159 mg/dL (65-115); Magnesium 2.4 mg/dL (1.7-2.3); Osmolality Calculated 306 mOsm/kg (285-295); Phosphorus 7.4 mg/dL (2.5-4.5); Potassium 3.5 mmol/L (3.5-5.1); Sodium 135 mmol/L (136-145); Total Bilirubin 0.4 mg/dL (0.15-1.2); Total Protein 6.4 g/dL (6.6-8.7)
[2021-08-08 10:02] LABS: Partial Thromboplastin Time 57.1 SECONDS (23.9-36.7)
[2021-08-08] MEDS: b-complex-vitamin c Tablet 1 EACH PO (10:09)
[2021-08-08 10:13] LABS: NT Pro B Type Natriuretic Pept 9194 pg/mL (0-450)
[2021-08-08 10:40] LABS: Glucose Point of Care 286 mg/dL (70-110)
[2021-08-08] MEDS: acetaminophen 325 mg Tablet 650 MG PO ×2 (11:42→17:48)
[2021-08-08] MEDS: duloxetine 60 mg Capsule PO (11:42)
[2021-08-08] MEDS: insulin lispro 100 unit/1 mL SUBCUT (11:42)
[2021-08-08] MEDS: ferric gluconate 125 MG in sodium chloride 0.9% (100 ml) 100 ML 110 MG IV (12:31)
[2021-08-08 16:37] LABS: Anti-Nuclear Antibody Pattern Cytoplasmic; Anti-Nuclear Antibody Screen POSITIVE (NEGATIVE); Anti-Nuclear Antibody Titer 1:40 titer; Anti-Nuclear Antibody Titer #2 1:40 titer
[2021-08-08 16:54] LABS: Glucose Point of Care 109 mg/dL (70-110)
[2021-08-08 17:28] LABS: Partial Thromboplastin Time 95.7 SECONDS (23.9-36.7)
[2021-08-08 18:21] LABS: SARS Covid-2 Antigen Negative (Negative)
--- NOTE | 2021-08-08 18:25 | P.PN_ITS ---
Subjective Subjective: She says she is doing okay other than her skin is itching. Denies chest pain or pressure. No trouble breathing. No abdominal pain. Vitals/I&O/Wt Last Vital Signs Temp 97.8 F 08/08/21 16:00 Pulse 57 L 08/08/21 16:00 Resp 18 08/08/21 16:00 BP 178/73 08/08/21 16:00 Pulse Ox 93 08/08/21 16:00 08/08/21 08/08/21 08/08/21 06:59 14:59 22:59 Intake Total 452.117 / 990.000 120 / 120 282.5 / 402.5 Output Total 150 / 150 Balance 452.117 / 435.000 -30 / -30 282.5 / 252.5 Weight last 48 hrs Weight 136.985 kg Physical Exam Narrative: Daughter at bedside. Undergoing hemodialysis. Const: COMMON NORMALS: alert GENERAL APPEARANCE: cooperative NUTRITIONAL APPEARANCE: obese morbidly obese ORIENTATION/CONSCIOUSNESS: Yes awake HENMT: COMMON NORMALS: normocephalic, EAC's normal, Normal external nose present and moist oral mucous membranes HEAD & SCALP: normocephalic NOSE: Normal external nose present EXTERNAL AUDITORY CANAL: EAC's normal Neck/C-Spine: COMMON NORMALS: no meningeal signs Chest: CHEST: Yes Symmetrical chest wall rise Resp: COMMON NORMALS: clear to auscultation bilaterally AUSCULTATION: clear to auscultation bilaterally Cardio: COMMON NORMALS: regular rate, regular rhythm and No murmurs present (Cardio) RATE: regular rate RHYTHM: regular rhythm GI: COMMON NORMALS: Normal to inspection, nondistended, normoactive bowel sounds present, Soft to palpation and non-tender PALPATION: Yes Soft to palpation Extremity: COMMON NORMALS: no pedal edema Neuro: COMMON NORMALS: moves all extremities SENSORIUM/ORIENTATION: Yes alert MENINGEAL SIGNS: Yes no meningeal signs Psych: COMMON NORMALS: mental status grossly normal Skin: COMMON NORMALS: no wounds RASHES: no rashes OTHER: She is scratching several different locations, although no rash is apparent. Some mild excoriations. Urinary Catheter Management: Puckett: Cath Placed During This Visit: yes Reason for Continuing Indwelling Catheter: Assist healing open wound Urinary Catheter Date of Insertion: 08/03/21 Urinary Catheter Time of Insertion: 19:01 Data : 08/08/21 09:15 08/08/21 09:15 A&P Assessment and plan (1) Bilateral lower extremity edema: Anasarca, some weeping still persistent. Improvement in weeping at the distal lower extremities. Continue with additional dialysis tomorrow pending arrangements for continued outpatient dialysis. Continue fluid restriction. Status: Acute (2) Acute kidney injury superimposed on CKD: Additional dialysis planned for tomorrow. Pending arrangements for outpatient dialysis. Status: Acute (3) Acute exacerbation of CHF (congestive heart failure): Status: Acute (4) Cellulitis: Doxycycline. She reports quite significant improvement in ulcerations, skin tears of lower extremities with resolved erythema. Status: Acute (5) Diabetes mellitus type 2, insulin dependent: Continue Lantus, sliding scale Status: Acute (6) Vitamin D deficiency: Status: Acute Plan A. fib, continue home metoprolol, resume Eliquis hemodialysis dosing History of CVA, resume Plavix Suboptimally controlled hypertension: Continue metoprolol, clonidine, amlodipine, spironolactone -Minoxidil has been stopped due to concerns for worsening lower extremity edema History of pulmonary embolism, high probability VQ scan, could not undergo a CT angiogram given creatinine, continue Eliquis Chronic pain, continue home oxycodone 10-325 3 times daily Hypothyroidism elevated TSH, free T3, free T4, RLC within normal limits, inc rease levothyroxine to 175, recheck TSH in 6 weeks Attestations Medical Necessity Statement*: Continue additional hemodialysis due to severe lower extremity edema, arrangements for outpatient dialysis. 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
[2021-08-08] MEDS: atorvastatin 40 mg Tablet 20 MG PO (21:05)
[2021-08-08] MEDS: pantoprazole DR 40 mg Tablet PO (21:05)
[2021-08-08] MEDS: apixaban 5 mg Tablet 2.5 MG PO (21:05)
[2021-08-08] MEDS: ropinirole 0.25 mg Tablet 0.5 MG PO (21:05)
[2021-08-09] VITALS (12 sets, daily range): BP systolic 121–203; BP diastolic 52–88; PULSE 53–97; RESP 16–20; TEMP 36.4–36.9; O2SAT 91–99
[2021-08-09 00:46] LABS: Partial Thromboplastin Time 41.4 SECONDS (23.9-36.7)
[2021-08-09 06:01] LABS: Basophils # 0.1 10^3/uL (0.0-0.1); Basophils % 0.7 %; Eosinophils # 0.3 10^3/uL (0.0-0.8); Eosinophils % 3.3 %; Hematocrit 29.8 % (37.0-47.0); Hemoglobin 8.8 g/dL (11.5-15.3); Lymphocytes % 12.6 %; Mean Corpuscular HGB Conc 29.5 g/dL (30.0-36.0); Mean Corpuscular Hemoglobin 28.5 pg (28.0-34.0); Mean Corpuscular Volume 96.4 fl (81-99); Mean Platelet Volume 10.4 fL (7.4-10.4); Monocytes # 0.8 10^3/uL (0.2-0.9); Monocytes % 10.1 %; Neutrophils # 5.96 10^3/uL (1.8-7.7); Neutrophils % 72.9 %; Nucleated Red Blood Cells % 0 %; Platelet Count 263 10^3/cmm (130-400); Red Blood Count 3.09 10^6/uL (4.1-5.3); White Blood Count 8.2 10^3/uL (4.0-10.0)
[2021-08-09] MEDS: thyroid 60 mg Tablet 180 MG PO (06:24)
[2021-08-09] MEDS: folic acid 1 mg Tablet PO (06:24)
[2021-08-09] MEDS: insulin glargine 100 units/1 mL 40 UNIT SUBCUT (06:25)
[2021-08-09 06:29] LABS: Alanine Aminotransferase 15 U/L (0-33); Albumin Level 2.6 g/dL (3.5-5.2); Alkaline Phosphatase 218 IU/L (35-105); Anion Gap 17.8 (5-19); Aspartate Amino Transferase 22 U/L (0-32); Blood Urea Nitrogen 67 mg/dL (8-23); C Reactive Protein 68.3 mg/L (0.0-4.9); Calcium 8.7 mg/dL (8.5-10.5); Carbon Dioxide 25 mmol/L (22-29); Chloride 100 mmol/L (98-107); Globulin 3.5 g/dL (1.3-4.6); Glucose 117 mg/dL (65-115); Magnesium 2.3 mg/dL (1.7-2.3); Osmolality Calculated 308 mOsm/kg (285-295); Phosphorus 5.5 mg/dL (2.5-4.5); Potassium 3.8 mmol/L (3.5-5.1); Sodium 139 mmol/L (136-145); Total Bilirubin 0.4 mg/dL (0.15-1.2); Total Protein 6.1 g/dL (6.6-8.7)
[2021-08-09 06:37] LABS: NT Pro B Type Natriuretic Pept 7114 pg/mL (0-450)
[2021-08-09 07:57] LABS: Glucose Point of Care 137 mg/dL (70-110)
[2021-08-09 07:58] LABS: Glucose Point of Care 128 mg/dL (70-110)
[2021-08-09] MEDS: oxyCODONE-APAP 10-325 mg Tablet 1 TAB PO ×2 (08:33→17:18)
[2021-08-09] MEDS: doxycycline 100 mg Tablet PO ×2 (08:34→17:18)
[2021-08-09] MEDS: metoprolol tartrate 50 mg Tablet 100 MG PO ×2 (08:34→17:19)
[2021-08-09] MEDS: spironolactone 25 mg Tablet PO ×2 (08:34→17:19)
[2021-08-09] MEDS: clopidogrel 75 mg Tablet PO (08:34)
[2021-08-09] MEDS: magnesium oxide 400 mg tablet PO ×2 (08:34→17:18)
[2021-08-09] MEDS: b-complex-vitamin c Tablet 1 EACH PO (08:34)
[2021-08-09] MEDS: apixaban 5 mg Tablet 2.5 MG PO ×2 (08:35→20:38)
[2021-08-09] MEDS: gabapentin 300 mg Capsule PO ×2 (08:35→17:19)
[2021-08-09] MEDS: amlodipine 10 mg Tablet 5 MG PO (09:42)
[2021-08-09] MEDS: diphenhydrAMINE 50 mg/mL SDV 1mL 25 MG IVP ×3 (09:43→20:36)
[2021-08-09 11:35] LABS: Glucose Point of Care 143 mg/dL (70-110)
[2021-08-09] MEDS: ferric gluconate 125 MG in sodium chloride 0.9% (100 ml) 100 ML 110 MG IV (12:42)
[2021-08-09] MEDS: insulin lispro 100 unit/1 mL SUBCUT (12:42)
[2021-08-09] MEDS: duloxetine 60 mg Capsule PO (12:42)
--- NOTE | 2021-08-09 14:00 | P.PN_ITS ---
Subjective Subjective: Ms. Chaudhari feels about the same today. The dominant complaint is that she has persistent itching. She still has chronic lower extremity edema, however, she is breathing comfortably on nasal cannula. No other new uremic symptoms. Urine output noted to be very poor now Medications: Reviewed: Yes Medication Review Details: Current Medications Acetaminophen (Acetaminophen 325 Mg Tablet) 650 mg PO Q6H PRN PRN Reason: Mild/Mod Pain Or Temp >/= 101 Last Admin: 08/06/21 11:57 Dose: 650 mg Documented by: Albuterol/Ipratropium (Ipratropium-Albuterol 3 Ml Neb) 3 ml INHALATION Q6H PRN PRN Reason: SHORTNESS OF BREATH Last Admin: 08/04/21 20:42 Dose: 3 ml Documented by: Amlodipine Besylate (Amlodipine 10 Mg Tablet) 5 mg PO Q24H [facility] Atorvastatin Calcium (Atorvastatin 40 Mg Tablet) 20 mg PO BEDTIME [facility] Last Admin: 08/07/21 21:14 Dose: 20 mg Documented by: Bumetanide (Bumetanide 0.25 Mg/Ml Sdv 4 Ml) 1 mg IVP Q12H [facility] Last Admin: 08/07/21 21:15 Dose: 1 mg Documented by: Clonidine HCl (Clonidine 0.3 Mg/24 Hr Patch) 1 patch TRANSDERMA Q7D [facility] Last Admin: 08/05/21 10:55 Dose: 1 patch Documented by: Dextrose (Dextrose 50% Syringe 50 Ml) 25 ml IVP ONCE PRN; Protocol PRN Reason: hypoglycemia protocol Dextrose (Dextrose 50% Syringe 50 Ml) 50 ml IVP PRN PRN; Protocol PRN Reason: hypoglycemia protocol Diphenhydramine HCl (Diphenhydramine 50 Mg/Ml Sdv 1ml) 25 mg IVP Q6H PRN PRN Reason: ITCHING Last Admin: 08/08/21 05:25 Dose: 25 mg Documented by: Doxycycline Monohydrate (Doxycycline 100 Mg Tablet) 100 mg PO BID [facility]; Protocol Last Admin: 08/07/21 17:58 Dose: 100 mg Documented by: Duloxetine HCl (Duloxetine 60 Mg Capsule) 60 mg PO DAILY@12 [facility] Last Admin: 08/06/21 11:57 Dose: 60 mg Documented by: Fentanyl (Fentanyl 50 Mcg/Ml Inj 2ml) 100 mcg IVP ONCE PRN PRN Reason: Per anesthesia for block Folic Acid (Folic Acid 1 Mg Tablet) 1 mg PO QAM [facility] Last Admin: 08/08/21 05:26 Dose: 1 mg Documented by: Gabapentin (Gabapentin 300 Mg Capsule) 300 mg PO BID [facility] Last Admin: 08/07/21 17:59 Dose: 300 mg Documented by: Glucagon (Glucagon 1 Mg/Ml Inj 1 Ml) 1 mg IM ONCE PRN; Protocol PRN Reason: Adult Acute Hypoglycemia Prot. Heparin Sodium (Porcine) (Heparin 5,000 Unit/Ml Inj 1 Ml) 0 unit IV PRN PRN; Protocol PRN Reason: Heparin weight-base protocol Last Admin: 08/07/21 04:07 Dose: 2,700 unit Documented by: Hydralazine HCl (Hydralazine 25 Mg Tablet) 25 mg PO Q6H [facility] Last Admin: 08/08/21 05:25 Dose: 25 mg Documented by: Dextrose (D5w) 500 mls @ 100 mls/hr IV ONCE PRN; Protocol PRN Reason: Adult Acute Hypoglycemia Prot Ferric Sodium Gluconate 125 mg (/ Sodium Chloride) 110 mls @ 110 mls/hr IV Q24H [facility] Stop: 08/12/21 12:59 Last Infusion: 08/06/21 14:39 Dose: Infused Documented by: Heparin Sodium/Sodium Chloride (Heparin Drip) 25,000 unit in 500 mls @ 0 mls/hr IV .Q0M [facility]; Protocol Last Admin: 08/08/21 06:35 Dose: 9.16 unit/kg/hr, 25 mls/hr Documented by: Insulin Glargine (Insulin Glargine 100 Units/1 Ml) [facility] [place] [facility] [place] Admin: 08/08/21 05:26 Dose: 40 unit Documented by: Insulin Human Lispro (Insulin Lispro 100 Unit/1 Ml) 0 unit SUBCUT TIDWM [facility]; Protocol Last Admin: 08/07/21 17:59 Dose: Not Given Documented by: Magnesium Oxide (Magnesium Oxide 400 Mg Tablet) 400 mg PO BID [facility] Last Admin: 08/07/21 17:58 Dose: 400 mg Documented by: Metoprolol Tartrate (Metoprolol Tartrate 50 Mg Tablet) 100 mg PO BID [facility] Last Admin: 08/07/21 17:59 Dose: 100 mg Documented by: Multivitamins (D-Xacoiha-Dsyaicx C Tablet) 1 each PO DAILY [facility] Last Admin: 08/07/21 09:16 Dose: 1 each Documented by: Ondansetron HCl (Ondansetron 2 Mg/Ml Sdv 2 Ml) 4 mg IVP Q8H PRN PRN Reason: vomiting, or N/V if npo Oxycodone/Acetaminophen (Oxycodone-Apap 10-325 Mg Tablet) 1 tab PO Q8H PRN PRN Reason: MODERATE PAIN Last Admin: 08/08/21 04:06 Dose: 1 tab Documented by: Pantoprazole Sodium (Pantoprazole Dr 40 Mg Tablet) 40 mg PO Q24H [facility] Last Admin: 08/07/21 21:14 Dose: 40 mg Documented by: Ropinirole HCl (Ropinirole 0.25 Mg Tablet) 0.5 mg PO BEDTIME [facility] Last Admin: 08/07/21 21:14 Dose: 0.5 mg Documented by: Spironolactone (Spironolactone 25 Mg Tablet) 50 mg PO BID [facility] Last Admin: 08/07/21 17:58 Dose: 50 mg Documented by: Thyroid (Thyroid 60 Mg Tablet) 180 mg PO QAM [facility] Last Admin: 08/08/21 05:25 Dose: 180 mg Documented by: Zinc Acetate/Diphenhydramine (Diphenhydramine Cream 30 Gm) 1 applic TOPICAL Q4H PRN PRN Reason: ITCHING Last Admin: 08/04/21 22:41 Dose: 1 applic Documented by: Vitals/I&O/Wt Last Vital Signs Temp 98.4 F 08/09/21 13:00 Pulse 68 08/09/21 13:00 Resp 17 08/09/21 13:00 BP 135/78 08/09/21 13:00 Pulse Ox 98 08/09/21 13:00 08/08/21 08/09/21 08/09/21 22:59 06:59 14:59 Intake Total 282.5 / 402.5 120 / 522.5 960 / 960 Output Total 120 / 270 Balance 162.5 / 132.5 120 / 252.5 960 / 960 Weight last 48 hrs Weight 137.801 kg Weight 136.985 kg Physical Exam Narrative: Constitutional: Awake, comfortable HEENT: Wet mucosa, no jvp, non icteric Lungs: Bilaterally clear without discernible wheeze, rales in all lung zones CVS: S1 S2, no murmurs Abdo: Soft, BS ok Ext 4:2+ edema, peripheral perfusion with no cyanosis, cellulitis Neurological: Grossly non-focal Urinary Catheter Management: Puckett: Cath Placed During This Visit: yes Reason for Continuing Indwelling Catheter: Assist healing open wound Urinary Catheter Date of Insertion: 08/03/21 Urinary Catheter Time of Insertion: 19:01 Data : 08/09/21 05:15 08/09/21 05:15 Micro: Microbiology 08/03/21 20:34 Blood Culture - Final Blood NO GROWTH AFTER 5 DAYS 08/03/21 20:39 Blood Culture - Final Blood NO GROWTH AFTER 5 DAYS A&P Assessment and plan (1) Acute kidney injury superimposed on CKD: 1. Chronic kidney disease Dialysis pending for today. If remains in the hospital tomorrow I will dialyze her again then. 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 Hypertension and hypervolemia Bp looks ok, cont ultrafiltration with dialysis 3. Chemistry Noncritical aberration, continue to monitor closely. 4. Lower extremity cellulitis Combination antibiotics noted. 5. Anemia Currently on iron loading 6. Uremic itching This will slowly improve with effective dialysis. Phosphorus only slightly elevated, I doubt this is the cause here. In the meantime use emollients, antihistamines may be of some use. Okay for discharge as soon as the case management assistant has outpatient dialysis approved. 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
[2021-08-09 14:23] LABS: ANCA Screen NEGATIVE (NEGATIVE)
[2021-08-09] MEDS: acetaminophen 325 mg Tablet 650 MG PO ×2 (14:57→23:51)
[2021-08-09 17:36] LABS: Glucose Point of Care 95 mg/dL (70-110)
[2021-08-09] MEDS: ropinirole 0.25 mg Tablet 0.5 MG PO (20:37)
[2021-08-09] MEDS: atorvastatin 40 mg Tablet 20 MG PO (20:37)
[2021-08-09] MEDS: pantoprazole DR 40 mg Tablet PO (20:38)
--- NOTE | 2021-08-09 21:06 | P.PN_ITS ---
Subjective Subjective: Her skin feels itchy. He denies chest pain or pressure. Denies shortness of breath. Vitals/I&O/Wt Last Vital Signs Temp 97.9 F 08/09/21 19:37 Pulse 55 L 08/09/21 19:37 Resp 18 08/09/21 19:37 BP 145/66 08/09/21 19:37 Pulse Ox 92 08/09/21 19:37 08/09/21 08/09/21 08/09/21 06:59 14:59 22:59 Intake Total 120 / 522.5 1070 / 1070 Balance 120 / 252.5 1070 / 1070 Weight last 48 hrs Weight 137.801 kg Weight 136.985 kg Physical Exam Const: COMMON NORMALS: alert GENERAL APPEARANCE: cooperative NUTRITIONAL APPEARANCE: obese morbidly obese ORIENTATION/CONSCIOUSNESS: Yes awake HENMT: COMMON NORMALS: normocephalic, EAC's normal, Normal external nose present and moist oral mucous membranes HEAD & SCALP: normocephalic NOSE: Normal external nose present EXTERNAL AUDITORY CANAL: EAC's normal Neck/C-Spine: COMMON NORMALS: no meningeal signs Chest: CHEST: Yes Symmetrical chest wall rise Resp: COMMON NORMALS: clear to auscultation bilaterally AUSCULTATION: clear to auscultation bilaterally Cardio: COMMON NORMALS: regular rate, regular rhythm and No murmurs present (Cardio) RATE: regular rate RHYTHM: regular rhythm GI: COMMON NORMALS: Normal to inspection, nondistended, normoactive bowel sounds present, Soft to palpation and non-tender PALPATION: Yes Soft to palpation Extremity: COMMON NORMALS: no pedal edema Neuro: COMMON NORMALS: moves all extremities SENSORIUM/ORIENTATION: Yes alert MENINGEAL SIGNS: Yes no meningeal signs Psych: COMMON NORMALS: mental status grossly normal Skin: COMMON NORMALS: no wounds RASHES: no rashes OTHER: She is scratching several different locations, although no rash is apparent. Excoriations over neck, arms. Urinary Catheter Management: Puckett: Cath Placed During This Visit: yes Reason for Continuing Indwelling Catheter: Assist healing open wound Urinary Catheter Date of Insertion: 08/03/21 Urinary Catheter Time of Insertion: 19:01 Data : 08/09/21 05:15 08/09/21 05:15 Micro: Microbiology 08/03/21 20:34 Blood Culture - Final Blood NO GROWTH AFTER 5 DAYS 08/03/21 20:39 Blood Culture - Final Blood NO GROWTH AFTER 5 DAYS A&P Assessment and plan (1) Bilateral lower extremity edema: Additional dialysis today. Pending arrangements for outpatient hemodialysis. Anasarca, some weeping still persistent. Improvement in weeping at the distal lower extremities. Continue with additional dialysis tomorrow pending arrangements for continued outpatient dialysis. Continue fluid restriction. Status: Acute (2) Acute kidney injury superimposed on CKD: Additional dialysis planned for tomorrow. Pending arrangements for outpatient dialysis. Status: Acute (3) Acute exacerbation of CHF (congestive heart failure): Status: Acute (4) Cellulitis: Doxycycline. She reports quite significant improvement in ulcerations, skin tears of lower extremities with resolved erythema. Status: Acute (5) Diabetes mellitus type 2, insulin dependent: Continue Lantus, sliding scale Status: Acute (6) Vitamin D deficiency: Status: Acute Plan Pruritus: Continue gabapentin, Benadryl. Requested for moisturizer as well. A. fib, continue home metoprolol, resume Eliquis hemodialysis dosing History of CVA, resume Plavix Suboptimally controlled hypertension: Continue metoprolol, clonidine, amlodipine, spironolactone -Minoxidil has been stopped due to concerns for worsening lower extremity edema History of pulmonary embolism, high probability VQ scan, could not undergo a CT angiogram given creatinine, continue Eliquis Chronic pain, continue home oxycodone 10-325 3 times daily Hypothyroidism elevated TSH, free T3, free T4, RLC within normal limits, increase levothyroxine to 175, recheck TSH in 6 weeks Attestations Medical Necessity Statement*: Continue admission for cyst management of ALBINO, anasarca, hemodialysis, arrangements for outpatient dialysis. 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
[2021-08-09 22:14] LABS: Glucose Point of Care 199 mg/dL (70-110)
[2021-08-10] VITALS (11 sets, daily range): BP systolic 152–200; BP diastolic 49–95; PULSE 48–56; RESP 18–20; TEMP 36.4–36.8; O2SAT 90–98
[2021-08-10 05:04] LABS: Basophils # 0.1 10^3/uL (0.0-0.1); Basophils % 0.7 %; Eosinophils # 0.3 10^3/uL (0.0-0.8); Hematocrit 29.3 % (37.0-47.0); Hemoglobin 8.6 g/dL (11.5-15.3); Lymphocytes # 1.3 10^3/uL (0.8-4.8); Lymphocytes % 15.6 %; Mean Corpuscular HGB Conc 29.4 g/dL (30.0-36.0); Mean Corpuscular Hemoglobin 28.2 pg (28.0-34.0); Mean Corpuscular Volume 96.1 fl (81-99); Mean Platelet Volume 10.1 fL (7.4-10.4); Monocytes % 11.7 %; Neutrophils # 5.65 10^3/uL (1.8-7.7); Neutrophils % 67.9 %; Nucleated Red Blood Cells % 0 %; Platelet Count 247 10^3/cmm (130-400); Red Blood Count 3.05 10^6/uL (4.1-5.3); Red Cell Distribution Width 20.8 % (12.1-15.1); White Blood Count 8.3 10^3/uL (4.0-10.0)
[2021-08-10] MEDS: folic acid 1 mg Tablet PO (05:50)
[2021-08-10] MEDS: insulin glargine 100 units/1 mL 40 UNIT SUBCUT (05:50)
[2021-08-10 05:51] LABS: Glucose Point of Care 127 mg/dL (70-110)
[2021-08-10] MEDS: magnesium oxide 400 mg tablet PO ×2 (08:13→17:58)
[2021-08-10] MEDS: doxycycline 100 mg Tablet PO ×2 (08:14→17:58)
[2021-08-10] MEDS: amlodipine 10 mg Tablet 5 MG PO (08:14)
[2021-08-10] MEDS: spironolactone 25 mg Tablet PO ×2 (08:15→17:59)
[2021-08-10] MEDS: apixaban 5 mg Tablet 2.5 MG PO ×2 (08:15→20:45)
[2021-08-10] MEDS: b-complex-vitamin c Tablet 1 EACH PO (08:15)
[2021-08-10] MEDS: gabapentin 300 mg Capsule PO ×2 (08:16→18:00)
[2021-08-10] MEDS: metoprolol tartrate 50 mg Tablet 100 MG PO ×2 (08:16→18:00)
[2021-08-10] MEDS: clopidogrel 75 mg Tablet PO (08:16)
[2021-08-10] MEDS: diphenhydrAMINE 50 mg/mL SDV 1mL 25 MG IVP ×2 (08:17→18:00)
[2021-08-10 08:23] LABS: Alanine Aminotransferase 13 U/L (0-33); Albumin Level 2.6 g/dL (3.5-5.2); Alkaline Phosphatase 182 IU/L (35-105); Anion Gap 15.8 (5-19); Aspartate Amino Transferase 17 U/L (0-32); Blood Urea Nitrogen 45 mg/dL (8-23); Calcium 8.8 mg/dL (8.5-10.5); Carbon Dioxide 27 mmol/L (22-29); Chloride 103 mmol/L (98-107); Globulin 3.9 g/dL (1.3-4.6); Glucose 117 mg/dL (65-115); Osmolality Calculated 307 mOsm/kg (285-295); Potassium 3.8 mmol/L (3.5-5.1); Sodium 142 mmol/L (136-145); Total Bilirubin 0.4 mg/dL (0.15-1.2); Total Protein 6.5 g/dL (6.6-8.7)
[2021-08-10] MEDS: oxyCODONE-APAP 10-325 mg Tablet 1 TAB PO ×2 (08:45→17:59)
--- NOTE | 2021-08-10 09:20 | P.PN_ITS ---
Subjective Subjective: c/o itching. no n/v/f/c/egan/d Medications: Reviewed: Yes Medication Review Details: Current Medications Acetaminophen (Acetaminophen 325 Mg Tablet) 650 mg PO Q6H PRN PRN Reason: Mild/Mod Pain Or Temp >/= 101 Last Admin: 08/09/21 23:51 Dose: 650 mg Documented by: Albuterol/Ipratropium (Ipratropium-Albuterol 3 Ml Neb) 3 ml INHALATION Q6H PRN PRN Reason: SHORTNESS OF BREATH Last Admin: 08/04/21 20:42 Dose: 3 ml Documented by: Amlodipine Besylate (Amlodipine 10 Mg Tablet) 5 mg PO Q24H [facility] Last Admin: 08/10/21 08:14 Dose: 5 mg Documented by: Apixaban (Apixaban 5 Mg Tablet) 2.5 mg PO BID@0900,2100 [facility] Last Admin: 08/10/21 08:15 Dose: 2.5 mg Documented by: Atorvastatin Calcium (Atorvastatin 40 Mg Tablet) 20 mg PO BEDTIME [facility] Last Admin: 08/09/21 20:37 Dose: 20 mg Documented by: Clonidine HCl (Clonidine 0.3 Mg/24 Hr Patch) 1 patch TRANSDERMA Q7D [facility] Last Admin: 08/05/21 10:55 Dose: 1 patch Documented by: Clopidogrel Bisulfate (Clopidogrel 75 Mg Tablet) 75 mg PO DAILY [facility] Last Admin: 08/10/21 08:16 Dose: 75 mg Documented by: Dextrose (Dextrose 50% Syringe 50 Ml) 25 ml IVP ONCE PRN; Protocol PRN Reason: hypoglycemia protocol Dextrose (Dextrose 50% Syringe 50 Ml) 50 ml IVP PRN PRN; Protocol PRN Reason: hypoglycemia protocol Diphenhydramine HCl (Diphenhydramine 50 Mg/Ml Sdv 1ml) 25 mg IVP Q6H PRN PRN Reason: ITCHING Last Admin: 08/10/21 08:17 Dose: 25 mg Documented by: Doxycycline Monohydrate (Doxycycline 100 Mg Tablet) 100 mg PO BID [facility]; Protocol Last Admin: 08/10/21 08:14 Dose: 100 mg Documented by: Duloxetine HCl (Duloxetine 60 Mg Capsule) 60 mg PO DAILY@12 [facility] Last Admin: 08/09/21 12:42 Dose: 60 mg Documented by: Fentanyl (Fentanyl 50 Mcg/Ml Inj 2ml) 100 mcg IVP ONCE PRN PRN Reason: Per anesthesia for block Folic Acid (Folic Acid 1 Mg Tablet) 1 mg PO QAM [facility] Last Admin: 08/10/21 05:50 Dose: 1 mg Documented by: Gabapentin (Gabapentin 300 Mg Capsule) 300 mg PO BID [facility] Last Admin: 08/10/21 08:16 Dose: 300 mg Documented by: Glucagon (Glucagon 1 Mg/Ml Inj 1 Ml) 1 mg IM ONCE PRN; Protocol PRN Reason: Adult Acute Hypoglycemia Prot. Dextrose (D5w) 500 mls @ 100 mls/hr IV ONCE PRN; Protocol PRN Reason: Adult Acute Hypoglycemia Prot Ferric Sodium Gluconate 125 mg (/ Sodium Chloride) 110 mls @ 110 mls/hr IV Q24H [facility] Stop: 08/12/21 12:59 Last Infusion: 08/09/21 14:18 Dose: Infused Documented by: Insulin Glargine (Insulin Glargine 100 Units/1 Ml) 40 unit SUBCUT QAM [facility] Last Admin: 08/10/21 05:50 Dose: 40 unit Documented by: Insulin Human Lispro (Insulin Lispro 100 Unit/1 Ml) 0 unit SUBCUT TIDWM [facility]; Protocol Last Admin: 08/10/21 07:15 Dose: Not Given Documented by: Magnesium Oxide (Magnesium Oxide 400 Mg Tablet) 400 mg PO BID [facility] Last Admin: 08/10/21 08:13 Dose: 400 mg Documented by: Metoprolol Tartrate (Metoprolol Tartrate 50 Mg Tablet) 100 mg PO BID [facility] Last Admin: 08/10/21 08:16 Dose: 100 mg Documented by: Multivitamins (C-Aytozpo-Mszpppt C Tablet) 1 each PO DAILY [facility] Last Admin: 08/10/21 08:15 Dose: 1 each Documented by: Ondansetron HCl (Ondansetron 2 Mg/Ml Sdv 2 Ml) 4 mg IVP Q8H PRN PRN Reason: vomiting, or N/V if npo Oxycodone/Acetaminophen (Oxycodone-Apap 10-325 Mg Tablet) 1 tab PO Q8H PRN PRN Reason: MODERATE PAIN Last Admin: 08/10/21 08:45 Dose: 1 tab Documented by: Pantoprazole Sodium (Pantoprazole Dr 40 Mg Tablet) 40 mg PO Q24H [facility] Last Admin: 08/09/21 20:38 Dose: 40 mg Documented by: Ropinirole HCl (Ropinirole 0.25 Mg Tablet) 0.5 mg PO BEDTIME [facility] Last Admin: 08/09/21 20:37 Dose: 0.5 mg Documented by: Spironolactone (Spironolactone 25 Mg Tablet) 25 mg PO BID [facility] Last Admin: 08/10/21 08:15 Dose: 25 mg Documented by: Thyroid (Thyroid 60 Mg Tablet) 180 mg PO QAM [facility] Last Admin: 08/09/21 06:24 Dose: 180 mg Documented by: Zinc Acetate/Diphenhydramine (Diphenhydramine Cream 30 Gm) 1 applic TOPICAL Q4H PRN PRN Reason: ITCHING Last Admin: 08/04/21 22:41 Dose: 1 applic Documented by: Vitals/I&O/Wt Last Vital Signs Temp 98.0 F 08/10/21 07:51 Pulse 56 L 08/10/21 08:20 Resp 20 H 08/10/21 08:45 BP 183/73 08/10/21 07:51 Pulse Ox 98 08/10/21 08:20 Weight last 48 hrs Weight 135.352 kg Weight 137.801 kg Physical Exam Narrative: swollen, NARD VS noted heent- nc/at, eomi, anicteric neck supple, rt ij dialysis catheter lungs- b/l crackles heart reg+SHAHRAM, + s1 s2 abd soft, nt, + distended ext 2+ b/l leg edema neuro- awake, alert, oriented and interactive Urinary Catheter Management: Puckett: Cath Placed During This Visit: yes Reason for Continuing Indwelling Catheter: Assist healing open wound Urinary Catheter Date of Insertion: 08/03/21 Urinary Catheter Time of Insertion: 19:01 Data : 08/10/21 04:52 08/10/21 07:49 A&P Assessment and plan (1) Acute kidney injury superimposed on CKD: 76 yr old female h/o PE, a fib, parkinsons, DM, HTN,moderate MR, charcots foot.? Pt is here w/ wprsening volume overload, sob, johnson 1. CHF- mar 2021 echo-LV systolic function is normal with EF of 55-60% ?Diastolic function is indeterminate ?Moderate mitral regurgitation ?Mild tricuspid regurgitation -HD started -plan SUF today and HD in am 2. CKD stage 4- baseline cr 2.5? 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 ALBINO- from [facility] diuretics and CRS -renal fxn worsened w/ diuresis and she has htn and edema-? Dr. Marin placed a dialysis catheter and will initiate HD today 4.? hyperphosphatemia- binders - pth 279. ca 7.8, vit d -28-? give vit d and zemplar 5. Q leg cellulitis-? abx per medicine 6. anemia - monitor cbc, iron sat11.8%, ferr 29- iv iron and consider GI? eval -await, spep -on iron 7. DM per medicine 8.? uric acid 10. 6? -repeatl 11. hypothyroidsim- tsh 28, please? adjust levothyroxine 12. Hypertension and hypervolemia - cont ultrafiltration with dialysis Patient seen and examined via telemedicine, with the assistance of the bedside RN > 25 min spent in evaluation and mgmt of patient Status: Acute Plan see above Attestations Medical Necessity Statement*: htn, edema, esrd, uremia- hd Time Spent in Patient Care: 16 - 35 minutes (>than 50% of time spent in counselling and/or direct pt care on unit) . 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
[2021-08-10] MEDS: diphenhydrAMINE cream 30 gm 1 APPLIC TOPICAL (10:14)
--- NOTE | 2021-08-10 11:17 | PC.SOCIAL ---
IMM Updated Updated pt on IMM. No questions voiced. Provided pt a copy. Initialed, dated, & timed copy in chart.
--- NOTE | 2021-08-10 11:22 | P.PN_ITS ---
Subjective Subjective: She is doing better today. Skin is not itching quite as much. Denies chest pain or pressure. Is not short of breath. Vitals/I&O/Wt Last Vital Signs Temp 98.0 F 08/10/21 07:51 Pulse 56 L 08/10/21 08:20 Resp 20 H 08/10/21 08:45 BP 183/73 08/10/21 07:51 Pulse Ox 98 08/10/21 08:20 08/09/21 08/10/21 08/10/21 22:59 06:59 14:59 Intake Total 360 / 360 Balance 360 / 360 Weight last 48 hrs Weight 135.352 kg Weight 137.801 kg Physical Exam Const: COMMON NORMALS: alert GENERAL APPEARANCE: cooperative NUTRITIONAL APPEARANCE: obese morbidly obese ORIENTATION/CONSCIOUSNESS: Yes awake HENMT: COMMON NORMALS: normocephalic, EAC's normal, Normal external nose present and moist oral mucous membranes HEAD & SCALP: normocephalic NOSE: Normal external nose present EXTERNAL AUDITORY CANAL: EAC's normal Neck/C-Spine: COMMON NORMALS: no meningeal signs Chest: CHEST: Yes Symmetrical chest wall rise Resp: COMMON NORMALS: clear to auscultation bilaterally AUSCULTATION: clear to auscultation bilaterally Cardio: COMMON NORMALS: regular rate, regular rhythm and No murmurs present (Cardio) RATE: regular rate RHYTHM: regular rhythm GI: COMMON NORMALS: Normal to inspection, nondistended, normoactive bowel sounds present, Soft to palpation and non-tender PALPATION: Yes Soft to palpation Extremity: GENERAL: Yes edema (Anasarca of lower body. Now no weeping below knees, but still at thighs) Neuro: COMMON NORMALS: moves all extremities SENSORIUM/ORIENTATION: Yes alert MENINGEAL SIGNS: Yes no meningeal signs Psych: COMMON NORMALS: mental status grossly normal Skin: LESIONS: lesion noted (LE skin tears and shallow ulcerations BL R>L, no weeping below knees) RASHES: no rashes OTHER: Excoriations over neck, arms, chest. Multiple small skin tears with weeping at thighs. Urinary Catheter Management: Puckett: Cath Placed During This Visit: yes Reason for Continuing Indwelling Catheter: Assist healing open wound Urinary Catheter Date of Insertion: 08/03/21 Urinary Catheter Time of Insertion: 19:01 Data : 08/10/21 04:52 08/10/21 07:49 A&P Assessment and plan (1) Bilateral lower extremity edema: Anasarca with slow improvement. No weeping below knees currently. Still significant edema lower body, weeping at thighs. Additional UF today, dialysis tomorrow. Also still pending arrangements for outpatient dialysis slot per discussion with CM. Continue fluid restriction. Status: Acute (2) Acute kidney injury superimposed on CKD: Additional UF today, dialysis tomorrow Pending arrangements for outpatient dialysis. Status: Acute (3) Acute exacerbation of CHF (congestive heart failure): As above. Continue fluid restriction. Additional UF today and HD tomorrow. Status: Acute (4) Cellulitis: Doxycycline. She reports quite significant improvement in ulcerations, skin tears of lower extremities with resolved erythema. Continue dialysis for fluid removal. Continue wound care/dressing changes bilateral lower extremities. SilvaSorb dressing bilaterally, discontinue wet-to-dry on the right leg. Status: Acute (5) Diabetes mellitus type 2, insulin dependent: Continue Lantus, sliding scale Status: Acute (6) Vitamin D deficiency: Status: Acute Plan Pruritus: Continue gabapentin, Benadryl. Moisturize. A. fib, continue home metoprolol, resume Eliquis hemodialysis dosing History of CVA, Plavix Suboptimally controlled hypertension: Increase amlodipine dose to 10 mg. Continue metoprolol, clonidine, amlodipine, spironolactone -Minoxidil has been stopped due to concerns for worsening lower extremity edema History of pulmonary embolism, high probability VQ scan, could not undergo a CT angiogram given creatinine, continue Eliquis Chronic pain, continue home oxycodone Hypothyroidism elevated TSH, free T3, free T4, RLC within normal limits, increase levothyroxine to 175, recheck TSH in 6 weeks Attestations Medical Necessity Statement*: Continue admission for assessment management of lower body anasarca, CHF, inpatient and arrangements for outpatient dialysis. 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
[2021-08-10 11:30] LABS: Glucose Point of Care 163 mg/dL (70-110)
[2021-08-10] MEDS: insulin lispro 100 unit/1 mL SUBCUT (13:10)
[2021-08-10] MEDS: duloxetine 60 mg Capsule PO (13:11)
[2021-08-10] MEDS: ferric gluconate 125 MG in sodium chloride 0.9% (100 ml) 100 ML 110 MG IV (14:06)
[2021-08-10 17:12] LABS: Glucose Point of Care 93 mg/dL (70-110)
[2021-08-10] MEDS: atorvastatin 40 mg Tablet 20 MG PO (20:45)
[2021-08-10] MEDS: ropinirole 0.25 mg Tablet 0.5 MG PO (20:45)
[2021-08-10] MEDS: pantoprazole DR 40 mg Tablet PO (20:46)
[2021-08-10 21:02] LABS: Glucose Point of Care 131 mg/dL (70-110)
[2021-08-11] VITALS (9 sets, daily range): BP systolic 142–161; BP diastolic 64–89; PULSE 50–94; RESP 16–19; TEMP 36.7–37; O2SAT 93–97
[2021-08-11] MEDS: diphenhydrAMINE 50 mg/mL SDV 1mL 25 MG IVP ×2 (02:12→10:19)
[2021-08-11] MEDS: oxyCODONE-APAP 10-325 mg Tablet 1 TAB PO ×2 (02:15→15:57)
[2021-08-11] MEDS: diphenhydrAMINE cream 30 gm 1 APPLIC TOPICAL (02:17)
[2021-08-11 03:25] LABS: Basophils # 0.1 10^3/uL (0.0-0.1); Basophils % 0.8 %; Eosinophils # 0.5 10^3/uL (0.0-0.8); Eosinophils % 5.1 %; Hematocrit 28.9 % (37.0-47.0); Hemoglobin 8.4 g/dL (11.5-15.3); Lymphocytes # 1.8 10^3/uL (0.8-4.8); Lymphocytes % 19.4 %; Mean Corpuscular HGB Conc 29.1 g/dL (30.0-36.0); Mean Corpuscular Hemoglobin 28.1 pg (28.0-34.0); Mean Corpuscular Volume 96.7 fl (81-99); Mean Platelet Volume 10.2 fL (7.4-10.4); Monocytes # 1.1 10^3/uL (0.2-0.9); Monocytes % 11.9 %; Neutrophils # 5.79 10^3/uL (1.8-7.7); Neutrophils % 62.5 %; Nucleated Red Blood Cells % 0.2 %; Platelet Count 234 10^3/cmm (130-400); Red Blood Count 2.99 10^6/uL (4.1-5.3); Red Cell Distribution Width 20.7 % (12.1-15.1); White Blood Count 9.3 10^3/uL (4.0-10.0)
[2021-08-11 03:51] LABS: Alanine Aminotransferase 13 U/L (0-33); Albumin Level 2.7 g/dL (3.5-5.2); Alkaline Phosphatase 185 IU/L (35-105); Anion Gap 16.5 (5-19); Aspartate Amino Transferase 20 U/L (0-32); Blood Urea Nitrogen 49 mg/dL (8-23); Calcium 8.9 mg/dL (8.5-10.5); Carbon Dioxide 26 mmol/L (22-29); Chloride 100 mmol/L (98-107); Globulin 3.6 g/dL (1.3-4.6); Glucose 101 mg/dL (65-115); Magnesium 2.3 mg/dL (1.7-2.3); Osmolality Calculated 301 mOsm/kg (285-295); Phosphorus 4.2 mg/dL (2.5-4.5); Potassium 3.5 mmol/L (3.5-5.1); Sodium 139 mmol/L (136-145); Total Bilirubin 0.4 mg/dL (0.15-1.2); Total Protein 6.3 g/dL (6.6-8.7)
[2021-08-11] MEDS: insulin glargine 100 units/1 mL 40 UNIT SUBCUT (05:45)
[2021-08-11] MEDS: folic acid 1 mg Tablet PO (05:45)
--- NOTE | 2021-08-11 05:57 | PC.NURSE ---
patient refused to get out of bed for breakfast, stated I could sit just as well in bed and eat as I could in that chair
[2021-08-11 06:14] LABS: Glucose Point of Care 116 mg/dL (70-110)
--- NOTE | 2021-08-11 08:18 | P.PN_ITS ---
Subjective Subjective: feeling better. less swollen, dec edema. Medications: Reviewed: Yes Medication Review Details: Current Medications Acetaminophen (Acetaminophen 325 Mg Tablet) 650 mg PO Q6H PRN PRN Reason: Mild/Mod Pain Or Temp >/= 101 Last Admin: 08/09/21 23:51 Dose: 650 mg Documented by: Albuterol/Ipratropium (Ipratropium-Albuterol 3 Ml Neb) 3 ml INHALATION Q6H PRN PRN Reason: SHORTNESS OF BREATH Last Admin: 08/04/21 20:42 Dose: 3 ml Documented by: Amlodipine Besylate (Amlodipine 10 Mg Tablet) 10 mg PO DAILY [facility] Apixaban (Apixaban 5 Mg Tablet) 2.5 mg PO BID@0900,2100 [facility] Last Admin: 08/10/21 20:45 Dose: 2.5 mg Documented by: Atorvastatin Calcium (Atorvastatin 40 Mg Tablet) 20 mg PO BEDTIME [facility] Last Admin: 08/10/21 20:45 Dose: 20 mg Documented by: Clonidine HCl (Clonidine 0.3 Mg/24 Hr Patch) 1 patch TRANSDERMA Q7D [facility] Last Admin: 08/05/21 10:55 Dose: 1 patch Documented by: Clopidogrel Bisulfate (Clopidogrel 75 Mg Tablet) 75 mg PO DAILY [facility] Last Admin: 08/10/21 08:16 Dose: 75 mg Documented by: Dextrose (Dextrose 50% Syringe 50 Ml) 25 ml IVP ONCE PRN; Protocol PRN Reason: hypoglycemia protocol Dextrose (Dextrose 50% Syringe 50 Ml) 50 ml IVP PRN PRN; Protocol PRN Reason: hypoglycemia protocol Diphenhydramine HCl (Diphenhydramine 50 Mg/Ml Sdv 1ml) 25 mg IVP Q6H PRN PRN Reason: ITCHING Last Admin: 08/11/21 02:12 Dose: 25 mg Documented by: Doxycycline Monohydrate (Doxycycline 100 Mg Tablet) 100 mg PO BID [facility]; Protocol Last Admin: 08/10/21 17:58 Dose: 100 mg Documented by: Duloxetine HCl (Duloxetine 60 Mg Capsule) 60 mg PO DAILY@12 [facility] Last Admin: 08/10/21 13:11 Dose: 60 mg Documented by: Fentanyl (Fentanyl 50 Mcg/Ml Inj 2ml) 100 mcg IVP ONCE PRN PRN Reason: Per anesthesia for block Folic Acid (Folic Acid 1 Mg Tablet) 1 mg PO QAM [facility] Last Admin: 08/11/21 05:45 Dose: 1 mg Documented by: Gabapentin (Gabapentin 300 Mg Capsule) 300 mg PO BID [facility] Last Admin: 08/10/21 18:00 Dose: 300 mg Documented by: Glucagon (Glucagon 1 Mg/Ml Inj 1 Ml) 1 mg IM ONCE PRN; Protocol PRN Reason: Adult Acute Hypoglycemia Prot. Dextrose (D5w) 500 mls @ 100 mls/hr IV ONCE PRN; Protocol PRN Reason: Adult Acute Hypoglycemia Prot Ferric Sodium Gluconate 125 mg (/ Sodium Chloride) 110 mls @ 110 mls/hr IV Q24H [facility] Stop: 08/12/21 12:59 Last Infusion: 08/10/21 15:24 Dose: Infused Documented by: Insulin Glargine (Insulin Glargine 100 Units/1 Ml) [facility] Last Admin: 08/11/21 05:45 Dose: 40 unit Documented by: Insulin Human Lispro (Insulin Lispro 100 Unit/1 Ml) 0 unit SUBCUT TIDWM [facility]; Protocol Last Admin: 08/11/21 08:04 Dose: Not Given Documented by: Magnesium Oxide (Magnesium Oxide 400 Mg Tablet) 400 mg PO BID [facility] Last Admin: 08/10/21 17:58 Dose: 400 mg Documented by: Metoprolol Tartrate (Metoprolol Tartrate 50 Mg Tablet) 100 mg PO BID [facility] Last Admin: 08/10/21 18:00 Dose: 100 mg Documented by: Multivitamins (H-Ycagiep-Knlzuyv C Tablet) 1 each PO DAILY [facility] Last Admin: 08/10/21 08:15 Dose: 1 each Documented by: Ondansetron HCl (Ondansetron 2 Mg/Ml Sdv 2 Ml) 4 mg IVP Q8H PRN PRN Reason: vomiting, or N/V if npo Oxycodone/Acetaminophen (Oxycodone-Apap 10-325 Mg Tablet) 1 tab PO Q8H PRN PRN Reason: MODERATE PAIN Last Admin: 08/11/21 02:15 Dose: 1 tab Documented by: Pantoprazole Sodium (Pantoprazole Dr 40 Mg Tablet) 40 mg PO Q24H [facility] Last Admin: 08/10/21 20:46 Dose: 40 mg Documented by: Ropinirole HCl (Ropinirole 0.25 Mg Tablet) 0.5 mg PO BEDTIME [facility] Last Admin: 08/10/21 20:45 Dose: 0.5 mg Documented by: Spironolactone (Spironolactone 25 Mg Tablet) 25 mg PO BID [facility] Last Admin: 08/10/21 17:59 Dose: 25 mg Documented by: Thyroid (Thyroid 60 Mg Tablet) 180 mg PO QAM [facility] Last Admin: 08/09/21 06:24 Dose: 180 mg Documented by: Zinc Acetate/Diphenhydramine (Diphenhydramine Cream 30 Gm) 1 applic TOPICAL Q4H PRN PRN Reason: ITCHING Last Admin: 08/11/21 02:17 Dose: 1 applic Documented by: Vitals/I&O/Wt Last Vital Signs Temp 98.6 F 08/11/21 07:24 Pulse 58 L 08/11/21 07:34 Resp 16 08/11/21 07:34 BP 142/65 08/11/21 07:24 Pulse Ox 95 08/11/21 07:34 08/10/21 08/11/21 08/11/21 22:59 06:59 14:59 Intake Total 750 / 1470 1220 / 2690 Balance 750 / 1470 1220 / 2690 Weight last 48 hrs Weight 129.909 kg Weight 135.352 kg Physical Exam Narrative: swollen, NARD VS noted heent- nc/at, eomi, anicteric neck supple, rt ij dialysis catheter lungs- b/l crackles heart reg+SHAHRAM, + s1 s2 abd soft, nt, + distended ext 2+ b/l leg edema neuro- awake, alert, oriented and interactive Urinary Catheter Management: Puckett: Cath Placed During This Visit: yes Reason for Continuing Indwelling Catheter: Assist healing open wound Urinary Catheter Date of Insertion: 08/03/21 Urinary Catheter Time of Insertion: 19:01 Data : 08/11/21 03:05 08/11/21 03:05 A&P Assessment and plan (1) Acute kidney injury superimposed on CKD: 76 yr old female h/o PE, a fib, parkinsons, DM, HTN,moderate MR, charcots foot.? Pt is here w/ wprsening volume overload, sob, johnson 1. CHF- mar 2021 echo-LV systolic function is normal with EF of 55-60% ?Diastolic function is indeterminate ?Moderate mitral regurgitation ?Mild tricuspid regurgitation -HD started -plan HD today - 3.5 hrs, 3k, remove 3l -needs a dialysis slot-outpt 2. CKD stage 4- baseline cr 2.5? 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 ALBINO- from inc diuretics and CRS -renal fxn worsened w/ diuresis and she has htn and edema-? Dr. Marin placed a dialysis catheter and is improving on dialysis 4.? hyperphosphatemia- binders - pth 279. ca 7.8, vit d -28-? give vit d and zemplar 5. Q leg cellulitis-? abx per medicine 6. anemia - monitor cbc, iron sat 11.8%, ferr 29- iv iron and consider GI? eval -await, spep -on iron 7. DM per medicine 8.? uric acid 10. 6? -repeat 11. hypothyroidsim- tsh 28, please? adjust levothyroxine 12. Hypertension and hypervolemia - cont ultrafiltration with dialysis Patient seen and examined via telemedicine, with the assistance of the bedside RN > 25 min spent in evaluation and mgmt of patient Status: Acute Plan see above Attestations Medical Necessity Statement*: esrd Time Spent in Patient Care: 16 - 35 minutes Coding Level of Care Code Acute [employer] Booth Operator for Dominick Baca Diagnoses Acute kidney injury superimposed on CKD N17.9; N18.9
[2021-08-11] MEDS: metoprolol tartrate 50 mg Tablet 100 MG PO (08:20)
[2021-08-11] MEDS: b-complex-vitamin c Tablet 1 EACH PO (08:20)
[2021-08-11] MEDS: gabapentin 300 mg Capsule PO (08:20)
[2021-08-11] MEDS: doxycycline 100 mg Tablet PO (08:20)
[2021-08-11] MEDS: clopidogrel 75 mg Tablet PO (08:20)
[2021-08-11] MEDS: magnesium oxide 400 mg tablet PO (08:20)
[2021-08-11] MEDS: apixaban 5 mg Tablet 2.5 MG PO (08:21)
[2021-08-11] MEDS: amlodipine 10 mg Tablet PO (08:21)
[2021-08-11] MEDS: spironolactone 25 mg Tablet PO (08:25)
[2021-08-11 11:17] LABS: Glucose Point of Care 101 mg/dL (70-110)
[2021-08-11] MEDS: ferric gluconate 125 MG in sodium chloride 0.9% (100 ml) 100 ML 110 MG IV (13:38)
[2021-08-11] MEDS: duloxetine 60 mg Capsule PO (13:38)
--- NOTE | 2021-08-11 21:17 | PM.DCS ---
Discharge Providers Date of Admission: 08/03/21 17:49 Date of Discharge: August 11, 2021 Attending Provider at Admission: Gage Gomez MD Attending Provider at Discharge: Prince Yoon Primary Care Provider: MILAGRO Kent Diagnoses at Discharge Discharge Diagnosis (1) Acute kidney injury superimposed on CKD: Status: Acute Reason for Visit Reason for Visit: EDEMA/ WEEPING Hospital Course Hospital Course Pleasant 76-year-old lady admitted due to worsening edema of lower body, acute on chronic renal failure, bilateral lower extremity cellulitis, pulm edema, diastolic CHF exacerbation. Arrangements were underway for dialysis to be set up on outpatient side prior to the admission. Edema was worsening, however, and she was not responding to diuresis. Additional trial of diuretic therapy was done in the hospital with some transient improvement in shortness of breath and edema, however, urine output and renal function worsened, and with persistent fluid overload was set up with a dialysis catheter and started on hemodialysis. With improving edema, decreased weeping of lower extremity cellulitis had resolved. She completed 7 days of antibiotic therapy with doxycycline. Continued with wound care for skin tears and shallow stasis ulcerations on bilateral lower extremities with SilvaSorb, covered with gauze. Generalized pruritus, quite bothersome to her, has been improving with dialysis, gabapentin, Benadryl as needed and moisturizer. She will require further hemodialysis for continued removal of fluid overload, due to which was set up with outpatient hemodialysis. Please note TSH was found elevated at 38.59. There appears may have been some confusion regarding how much [place] Thyroid she actually takes. At assisted living the record shows 30 mg, although it appears her daughter had reported that she was taking it alongside of 120 mg, although we do not see a prescription beyond 90-day prescription a year ago, and the 120s milligram dose is not recorded in assisted living documentation. She was transiently on 180 mg here which was stopped. Repeat TSH was 28.43 on 08/04. Given it appears she likely was taking 30 mg, this dose is increased to 45 mg at time of discharge. Please reassess thyroid medication dosage, as well as follow-up thyroid function. Physical Exam Narrative: Undergoing hemodialysis. Const: COMMON NORMALS: alert GENERAL APPEARANCE: cooperative and comfortable NUTRITIONAL APPEARANCE: obese morbidly obese ORIENTATION/CONSCIOUSNESS: Yes awake HENMT: COMMON NORMALS: normocephalic, EAC's normal, Normal external nose present and moist oral mucous membranes HEAD & SCALP: normocephalic NOSE: Normal external nose present EXTERNAL AUDITORY CANAL: EAC's normal Neck/C-Spine: COMMON NORMALS: no meningeal signs Chest: CHEST: Yes Symmetrical chest wall rise Resp: COMMON NORMALS: clear to auscultation bilaterally AUSCULTATION: clear to auscultation bilaterally Cardio: COMMON NORMALS: regular rate, regular rhythm and No murmurs present (Cardio) RATE: regular rate RHYTHM: regular rhythm GI: COMMON NORMALS: Normal to inspection, nondistended, normoactive bowel sounds present, Soft to palpation and non-tender PALPATION: Yes Soft to palpation Extremity: COMMON NORMALS: no pedal edema GENERAL: Yes edema (Anasarca of lower body. Now no weeping below knees, but still at thighs) Neuro: COMMON NORMALS: moves all extremities SENSORIUM/ORIENTATION: Yes alert MENINGEAL SIGNS: Yes no meningeal signs Psych: COMMON NORMALS: mental status grossly normal Skin: COMMON NORMALS: no wounds LESIONS: lesion noted (LE skin tears and shallow ulcerations BL R>L, no weeping below knees) RASHES: no rashes OTHER: Excoriations over neck, arms, chest. Multiple small skin tears. No weeping. Urinary Catheter Management: Puckett: Cath Placed During This Visit: yes Reason for Continuing Indwelling Catheter: Assist healing open wound Urinary Catheter Date of Insertion: 08/03/21 Urinary Catheter Time of Insertion: 19:01 Discharge Data Studies Completed and Pending Completed Studies During Hospitalization Category Date Time Status CXRP [XR chest 1V portable [id number]] Routine Exams 08/07/21 12:57 Completed XR chest 1V portable [id number] Stat Exams 08/03/21 15:40 [place] [id number] Urgent Ultrasound 08/03/21 18:36 Completed CV. echo complete* [id number] Routine Ultrasound 08/03/21 19:34 Completed US renal BI* [id number] Routine Ultrasound 08/03/21 18:37 Completed Radiology Impressions Venous Duplex 08/03/21 18:36 IMPRESSION: Questionable blood flow seen in the left peroneal vein, however, exam is negative for gross evidence of deep venous thrombosis. Renal Ultrasound 08/03/21 18:37 IMPRESSION: Limited diagnostic study due to body habitus and patient cooperation 1. No hydronephrosis in either kidney. 2. Puckett catheter. 3. Hypoechoic lesion lower pole LEFT kidney measuring 1.3 x 1.1 x 1.5 cm difficult to visualize but appears to represent a small cyst C-Arm Fluoroscopy 08/07/21 11:53 IMPRESSION: Intraoperative imaging during power port placement. Chest X-Ray 08/07/21 12:57 IMPRESSION: 1. No acute findings. 2. Right central line is in the right atrium. 3. Electronic stimulator wire lower dorsal spine Laboratory Results WBC 9.3 10^3/uL (4.0-10.0) 08/11/21 03:05 RBC 2.99 10^6/uL (4.1-5.3) L 08/11/21 03:05 Hgb 8.4 g/dL (11.5-15.3) L 08/11/21 03:05 Hct 28.9 % (37.0-47.0) L 08/11/21 03:05 MCV 96.7 fl (81-99) 08/11/21 03:05 MCH 28.1 pg (28.0-34.0) 08/11/21 03:05 MCHC 29.1 g/dL (30.0-36.0) L 08/11/21 03:05 RDW 20.7 % (12.1-15.1) H 08/11/21 03:05 Plt Count 234 10^3/cmm (130-400) 08/11/21 03:05 MPV 10.2 fL (7.4-10.4) 08/11/21 03:05 Neut % (Auto) 62.5 % 08/11/21 03:05 Lymph % (Auto) 19.4 % 08/11/21 03:05 [place] % (Auto) 11.9 % 08/11/21 03:05 Eos % (Auto) 5.1 % 08/11/21 03:05 Baso % (Auto) 0.8 % 08/11/21 03:05 Neut # (Auto) 5.79 10^3/uL (1.8-7.7) 08/11/21 03:05 Lymph # (Auto) 1.8 10^3/uL (0.8-4.8) 08/11/21 03:05 [place] # (Auto) 1.1 10^3/uL (0.2-0.9) H 08/11/21 03:05 Eos # (Auto) 0.5 10^3/uL (0.0-0.8) 08/11/21 03:05 Baso # (Auto) 0.1 10^3/uL (0.0-0.1) 08/11/21 03:05 Nucleated RBC % (auto) 0.2 % 08/11/21 03:05 Nucleated RBCs # 0.0 /100WBC 08/11/21 03:05 PT 16.10 SECONDS (12.1-14.9) H 08/03/21 20:34 INR 1.26 (0.8-1.2) H 08/03/21 20:34 APTT 41.4 SECONDS (23.9-36.7) H D 08/08/21 23:53 Specimen Type Arterial 08/03/21 20:33 Sample Site Brachial, right 08/03/21 20:33 ABG pH 7.43 (7.35-7.45) 08/03/21 20:33 ABG pCO2 47.6 mmHg (35-45) H 08/03/21 20:33 ABG pO2 69.7 mmHg (80.0-100.0) L 08/03/21 20:33 ABG HCO3 31.8 mmol/L (22-26) H 08/03/21 20:33 ABG O2 Saturation 92.7 08/03/21 20:33 ABG Base Excess 6.6 mmol/L (-2.0-2.0) H 08/03/21 20:33 David Test N/a 08/03/21 20:33 A-a O2 Gradient 2.6 mmHg (5-10) L 08/03/21 20:33 Hematocrit 28.9 % (37-47) L 08/03/21 20:33 Hgb O2 Saturation 91.2 % (95-100) L 08/03/21 20:33 Carboxyhemoglobin 0.8 %THgb (0.4-20.1) 08/03/21 20:33 Methemoglobin 0.8 % (0.4-1.5) 08/03/21 20:33 Total Hemoglobin 9.4 g/dL (12-16) L 08/03/21 20:33 Sodium 145.0 mmol/L (131-143) H 08/03/21 20:33 Potassium 3.4 mmol/L (3.5-5.0) L 08/03/21 20:33 Glucose 135.0 mg/dL (70-115) H 08/03/21 20:33 Ionized Calcium 1.0 mmol/L (1.1-1.4) L 08/03/21 20:33 O2 Delivery Device Room air 08/03/21 20:33 [place] ID Jorge 08/03/21 20:33 Sodium 139 mmol/L (136-145) 08/11/21 03:05 Potassium 3.5 mmol/L (3.5-5.1) 08/11/21 03:05 Chloride 100 mmol/L (98-107) 08/11/21 03:05 Carbon Dioxide 26 mmol/L (22-29) 08/11/21 03:05 Anion Gap 16.5 (5-19) 08/11/21 03:05 BUN 49 mg/dL (8-23) H 08/11/21 03:05 Creatinine 3.2 mg/dL (0.5-0.9) H 08/11/21 03:05 GFR Calculation Not Reportable 08/11/21 03:05 Glucose 101 mg/dL (65-115) 08/11/21 03:05 POC Glucose 101 mg/dL (70-110) 08/11/21 10:51 Calculated Osmolality 301 mOsm/kg (285-295) H 08/11/21 03:05 Uric Acid 10.6 mg/dL (2.4-5.7) H 08/03/21 20:34 Uric Acid Cancelled 08/03/21 20:34 Calcium 8.9 mg/dL (8.5-10.5) 08/11/21 03:05 Phosphorus 4.2 mg/dL (2.5-4.5) 08/11/21 03:05 Magnesium 2.3 mg/dL (1.7-2.3) 08/11/21 03:05 Iron 34 ug/dL (37-145) L 08/04/21 03:53 TIBC 287 mcg/dl 08/04/21 03:53 % Saturation 11.8 % (20-50) L 08/04/21 03:53 Unsat Iron Binding 253 ug/dL (112-347) 08/04/21 03:53 Ferritin 29 ng/mL (15-150) 08/04/21 03:53 Total Bilirubin 0.4 mg/dL (0.15-1.2) 08/11/21 03:05 AST 20 U/L (0-32) 08/11/21 03:05 ALT 13 U/L (0-33) 08/11/21 03:05 Alkaline Phosphatase 185 IU/L (35-105) H 08/11/21 03:05 Creatine Kinase 103 U/L (26-192) 08/06/21 05:24 Creatine Kinase Cancelled 08/06/21 05:24 C-Reactive Protein 68.3 mg/L (0.0-4.9) H 08/09/21 05:15 NT-Pro-B Natriuret Pep 7114 pg/mL (0-450) H 08/09/21 05:15 Total Protein 6.3 g/dL (6.6-8.7) L 08/11/21 03:05 Albumin 2.7 g/dL (3.5-5.2) L 08/11/21 03:05 Globulin 3.6 g/dL (1.3-4.6) 08/11/21 03:05 25-OH Vitamin D Total 28 ng/mL (30-100) L 08/04/21 03:53 Procalcitonin 0.14 ng/mL (0-0.5) 08/03/21 20:34 TSH 28.43 uIU/mL (0.27-4.20) H 08/04/21 03:53 Free T4 0.70 ng/dL (0.82-1.77) L 08/04/21 14:00 Free T3 2.7 PG/ML (2.0-4.4) 08/04/21 14:00 PTH Intact 279.5 pg/mL (15-65) H 08/04/21 03:53 Calcium (PTH Intact) 7.8 mg/dL (8.5-10.5) L 08/04/21 03:53 Urine Color Yellow (Yellow) 08/03/21 18:46 Urine Appearance Hazy (CLEAR) A 08/03/21 18:46 Urine pH 6.5 (5-7) 08/03/21 18:46 Ur Specific [place] 1.010 (1.005-1.030) 08/03/21 18:46 Urine Protein 3+ (Negative) H 08/03/21 18:46 Urine Glucose (UA) Norm (Normal) 08/03/21 18:46 Urine Ketones Negative (Negative) 08/03/21 18:46 Urine Blood 2+ (Negative) H 08/03/21 18:46 Urine Nitrate Negative (Negative) 08/03/21 18:46 Urine Bilirubin Neg (Negative) 08/03/21 18:46 Urine Urobilinogen Neg mg/dL (Negative) 08/03/21 18:46 Ur Leukocyte Esterase Negative (Negative) 08/03/21 18:46 Urine RBC 5-10 /hpf (0-2) H 08/03/21 18:46 Urine WBC 0-4 /hpf (0-5) H 08/03/21 18:46 Ur Squamous Epith Cells Rare /hpf (0-5) 08/03/21 18:46 Amorphous Sediment Not Reportable 08/03/21 18:46 Urine Bacteria Trace /hpf (NONE) 08/03/21 18:46 JELANI Screen Positive (NEGATIVE) A 08/03/21 20:34 JELANI Titer 1:40 titer H 08/03/21 20:34 JELANI Titer 2 1:40 titer H 08/03/21 20:34 JELANI Pattern Cytoplasmic A 08/03/21 20:34 JELANI Pattern 2 A 08/03/21 20:34 ANCA Screen Negative (NEGATIVE) 08/03/21 20:34 ANCA Titer Not Reportable 08/03/21 20:34 Anti-ds DNA IgG Ab <1 IU/mL 08/03/21 20:34 Hep Bs Antigen Non-reactive (Nonreactive) 08/07/21 01:18 Hep Bs Antibody < 3.5 (11.5-1000) L 08/07/21 01:18 Hepatitis C Antibody Non-reactive (Nonreactive) 08/03/21 20:22 SARS-CoV-2 Ag (Rapid) Negative (Negative) 08/08/21 Unknown Anti-Streptolysin O Ab 103 IU/mL (<200) 08/03/21 20:34 Vitals Last Vital Signs Temp 98.1 F 08/11/21 15:42 Pulse 94 08/11/21 15:42 Resp 18 08/11/21 15:57 BP 161/89 08/11/21 15:42 Pulse Ox 94 08/11/21 15:42 Discharge Plan Discharge Patient Disposition: Xfer SNF Condition: Stable Prescriptions: New amlodipine 5 mg Tablet 5 mg PO DAILY Qty: 90 0RF doxycycline monohydrate 100 mg Tablet 100 mg PO BID Qty: 2 0RF spironolactone 25 mg Tablet 25 mg PO BID Qty: 180 0RF Continued carbidopa-levodopa [Sinemet] 25-100 mg tablet 2 tab PO TID Qty: 360 3RF albuterol sulfate [ProAir HFA] 90 mcg/actuation HFA aerosol inhaler 2 puff inhalation Q6H PRN (Reason: shortness of breath or wheezing) Qty: 6.7 2RF Advair HFA 115-21 mcg/actuation HFA aerosol inhaler 2 puff inhalation BID Qty: 8 2RF oxycodone-acetaminophen 7.5-325 mg tablet 1 tab PO TID PRN (Reason: pain) 30 Days Qty: 90 0RF Rx Instructions: may fill 30 days after last refill. folic acid 1 mg tablet 1 mg PO QAM 0RF hydralazine 25 mg tablet 12.5 mg PO TID 0RF ferrous sulfate [FeroSul] 325 mg (65 mg iron) tablet 325 mg PO BID 0RF furosemide [Lasix] 40 mg tablet 40 mg PO BID 0RF clopidogrel [Plavix] 75 mg tablet 75 mg PO BEDTIME 0RF cholecalciferol (vitamin D3) 25 mcg (1,000 unit) capsule 25 mcg PO DAILY 0RF ondansetron HCl [Zofran] 4 mg tablet 4 mg PO Q8H PRN (Reason: nausea and vomiting) Qty: 30 0RF hydroxyzine pamoate 25 mg capsule 25 mg PO BEDTIME 0RF insulin aspart U-100 [Novolog Flexpen U-100 Insulin] 100 unit/mL (3 mL) insulin pen See Rx Instructions .ROUTE .COMPLEX 0RF Rx Instructions: sliding scale subcutaneously tid prn clonidine HCl 0.3 mg tablet 0.3 mg PO Q8H PRN (Reason: Blood Pressure) 0RF Rx Instructions: Take as needed for systolic BP greater than 160 duloxetine 60 mg capsule,delayed release(DR/EC) 60 mg PO DAILY@12 0RF ropinirole 0.5 mg tablet 0.5 mg PO BEDTIME 0RF solifenacin [Vesicare] 5 mg tablet 5 mg PO DAILY 0RF Lumigan 0.01 % drops 1 drp ophthalmic (eye) BEDTIME 0RF Rx Instructions: each eye metoprolol tartrate 100 mg tablet 100 mg PO BID Qty: 90 3RF ipratropium-albuterol 0.5 mg-3 mg(2.5 mg base)/3 mL Solution For Nebulization 3 ml INHALATION Q6H PRN (Reason: Shortness Of Breath) 0RF acetaminophen 500 mg Tablet 1,000 mg PO Q6H PRN (Reason: Pain) 0RF benzonatate 100 mg Capsule 100 mg PO TID PRN (Reason: Cough) 0RF mirtazapine 30 mg Tablet 30 mg PO BEDTIME 0RF diphenhydramine HCl 25 mg Tablet 25 mg PO Q24H PRN (Reason: Allergy Symptoms) 0RF Triple Antibiotic 3.5-400-5,000 [id number] Ointment In Packet 1 applic TOPICAL DAILY 0RF camphor-menthol 0.2-3.5 % Gel 1 applic TOPICAL Q4H PRN (Reason: Pain) 0RF Rx Instructions: rub in gently and completely MediHoney (honey) 100 % Paste 1 applic TOPICAL DAILY 0RF Rx Instructions: apply medi honey to open area on right buttocks daily simvastatin 40 mg tablet 40 mg PO BEDTIME 0RF budesonide 0.5 mg/2 mL Suspension For Nebulization 0.5 mg INHALATION BID PRN (Reason: Cough) 0RF Changed gabapentin 800 mg tablet 400 mg PO BID Qty: 180 1RF Lantus Solostar U-100 Insulin 100 unit/mL (3 mL) insulin pen 40 unit SUBCUT QAM Qty: 0 0RF [place] Thyroid 15 mg tablet 45 mg PO QAM Qty: 0 0RF Eliquis 5 mg Tablet 2.5 mg PO BID Qty: 0 0RF Discontinued potassium chloride 10 mEq capsule, extended release 20 meq PO TID 0RF metolazone 5 mg Tablet 5 mg PO DAILY 0RF calcium 600 mg Capsule 600 mg PO BID 0RF calcium carbonate 1,000 mg Tablet 2,000 mg PO BID 0RF Discharge Orders: Discharge Order (Routine); Ordered 08/11/21 Ordered By: Prince Yoon Referrals: Nephrolgy, provider [Other] - 1 week Kyler,Lydia, RELIGIOUS ACTIVITIES DIRECTOR [Primary Care Provider] - 4-7 days Discharge Diet: As Directed Discharge Activity: Increase activity as tolerated Patient Instructions: Acute Kidney Injury (GEN), Chronic Kidney Disease (GEN), Dialysis Diet (GEN), Skin Tear (GEN), Edema (GEN), Venous Insufficiency (GEN), Chronic Wounds (GEN), Opioid Safety Activity Restrictions/Additional Instructions: Please maintain renal hemodialysis diabetic diet. Continue wound care for skin tears and stasis ulcerations on bilateral lower extremities with SilvaSorb, covered in gauze. Reposition frequently to prevent pressure sores. Complete doxycycline course for cellulitis. Continue dialysis, gabapentin, Benadryl and apply moisturizer daily for generalized itching. This should be improving with dialysis. Monitor blood pressure twice daily, record values. Continue to work on optimizing blood pressure control with your primary doctor. Please have your primary doctor follow-up your thyroid function in 3 weeks. Please note your [place] Thyroid was increased to 45 mg. Discharge Attestations Time Spent in Discharge Care*: greater than 30 min Quality Metrics Clinical Quality Measures [ No reported AMI, CVA or VTE this stay] Coding Level of Care Code Acute Chg FW DC note Diagnoses Acute kidney injury superimposed on CKD N17.9; N18.9
== END 2021-08-11 16:26 | disposition skilled nursing facility (03) | DRG 673 ==
LOC: ER 16:11 → ICU 18:20 → MEDSURG 08-04 18:36
PROVIDERS: Internal Medicine Nephrology; Surgery; Admitting Provider Family Medicine; Emergency Provider Emergency Medicine; PCP Nurse Practitioner Family; Visit Provider Internal Medicine
PROC: 0JH63XZ Insertion of Tunneled Vascular Access Device into Chest Subcutaneous Tissue and Fascia, Percutaneous Approach (ICD-10-PCS; principal; 2021-08-07 12:00)
DX: N17.9 Acute kidney failure, unspecified (principal); I50.33 Acute on chronic diastolic (congestive) heart failure; L03.116 Cellulitis of left lower limb; L03.115 Cellulitis of right lower limb; I13.0 Hypertensive heart and chronic kidney disease with heart failure and stage 1 through stage 4 chronic kidney disease, or unspecified chronic kidney disease; Z87.891 Personal history of nicotine dependence; R00.1 Bradycardia, unspecified; Z86.711 Personal history of pulmonary embolism; Z79.01 Long term (current) use of anticoagulants; I48.91 Unspecified atrial fibrillation; J44.9 Chronic obstructive pulmonary disease, unspecified; N18.4 Chronic kidney disease, stage 4 (severe); E11.22 Type 2 diabetes mellitus with diabetic chronic kidney disease; Z79.4 Long term (current) use of insulin; Z79.02 Long term (current) use of antithrombotics/antiplatelets; E11.21 Type 2 diabetes mellitus with diabetic nephropathy; E87.6 Hypokalemia; D63.1 Anemia in chronic kidney disease; Z86.73 Personal history of transient ischemic attack (TIA), and cerebral infarction without residual deficits; Z66 Do not resuscitate; E03.9 Hypothyroidism, unspecified; G89.29 Other chronic pain; Z79.891 Long term (current) use of opiate analgesic; E55.9 Vitamin D deficiency, unspecified; E87.70 Fluid overload, unspecified
CPT/HCPCS: 36415; 36416; 51702; 71045; 76000; 76770; 77001; 80048; 80051; 80053; 81001; 82306; 82310; 82330; 82550; 82728; 82805; 82962; 83516; 83540; 83550; 83735; 83880; 83970; 84100; 84145; 84439; 84443; 84481; 84550; 85025; 85610; 85730; 86038; 86060; 86140; 86225; 86706; 86803; 87040; 87340; 87426; 87641; 90471; 90732; 93005; 93306; 93970; 94640; 94664; 96372; 96374; 97162; 97165; 97530; 97535; 99285; C1750; C9113; J0690; J0696; J1170; J1200; J1644; J1815 ×2; J1940; J2020; J2704; J2916; J3010; J3475; J3490; J7030; Q3014

== ENCOUNTER 2021-09-11 10:22 | Emergency (ER) | payer MEDICARE, OTHER, SELFPAY ==
[2021-09-11 10:23] VITALS: BP 122/64; PULSE 72; RESP 18; TEMP 36.6; O2SAT 96; BMI 40.5
--- NOTE | 2021-09-11 10:33 | XRR_ITS ---
PROCEDURE INFORMATION: Exam: XR Right Tibia and Fibula Exam date and time: 09/11/2021 10:56 AM Age: 76 years old Clinical indication: Injury or trauma; Fall; Blunt trauma; Lower leg; Right; Prior surgery; Surgery date: 6+ months; Additional info: Fall with severe pain TECHNIQUE: Imaging protocol: XR Right tibia and fibula. Views: 2 views. COMPARISON: [place] [id number] 08/03/2021 9:34 PM FINDINGS: Bones/joints: Intact ORIF hardware with metallic plates and fixation screws in the distal fibula. Osseous structures are intact. Negative for fracture. Soft tissues: Normal. XR/XR tibia fibula RT 2V [id number] IMPRESSION: No acute findings.
--- NOTE | 2021-09-11 10:38 | ED_ITS ---
HPI - Extremity Problem General: Chief complaint: Extremity Injury, Lower Stated complaint: RIGHT LEG PAIN S/P FALL Time Seen by Provider: 09/11/21 10:26 Source: patient Mode of arrival: EMS Limitations: no limitations History of Present Illness: 76-year-old female with a history of renal failure and on hemodialysis, presents to the ER today for right lower extremity pain. Patient was at home and turned around to feed her cats when her legs gave out on her and she fell. Patient reports feeling a pop and having excruciating pain in the right lower extremity. Patient reports she has been unable to bear weight or move the right lower leg since incident. Patient called 911 and was brought by EMS to the hospital. Patient reports the wounds on her lower legs are chronic and are unchanged. She did have dialysis this week and everything has been going okay. Patient denies any loss of consciousness or prolonged time down. Denies hitting her head. Review of Systems General: Reports: 10 or more systems reviewed and unremarkable except in HPI and below PFSH ED PFSH: Medical History Anemia in chronic illness Chronic insomnia Chronic renal insufficiency COPD (chronic obstructive pulmonary disease) Diabetes mellitus type 2, insulin dependent Diabetic neuropathy Fibromyalgia History of CVA (cerebrovascular accident) Hyperlipemia Hypertension Hypothyroidism Lumbar disc disease with radiculopathy Neuropathy Parkinson disease Post laminectomy syndrome Sciatica associated with disorder of lumbosacral spine Stage 4 chronic renal impairment associated with type 2 diabetes mellitus Uncontrolled insulin dependent diabetes mellitus Vitamin D deficiency Surgical History Hx of cholecystectomy Hx of foot surgery Hx of hysterectomy Family History Father CAD (coronary artery disease) Mother CAD (coronary artery disease) Diabetes Grandfather CAD (coronary artery disease) Diabetes Social History Smoking and tobacco status: never smoked Second hand smoke exposure: No Alcohol intake: current Alcohol intake frequency: holidays/special occasions only Alcohol type: hard liquor History of recent travel: No Physical Exam Const: COMMON NORMALS: patient oriented x3 and alert HENMT: COMMON NORMALS: normocephalic, atraumatic and hearing grossly normal bilaterally HEAD & SCALP: normocephalic and atraumatic Eye: COMMON NORMALS: conjunctivae normal CONJUNCTIVA: Yes conjunctivae normal Neck/C-Spine: COMMON NORMALS: full ROM Resp: COMMON NORMALS: normal respiratory effort, No retractions and clear to auscultation bilaterally AUSCULTATION: clear to auscultation bilaterally Cardio: COMMON NORMALS: regular rate and regular rhythm RATE: regular rate RHYTHM: regular rhythm GI: COMMON NORMALS: Normal to inspection, nondistended, normoactive bowel sounds present Back/Pelvis: COMMON NORMALS: no thoracic nor lumbar tenderness Extremity: NARRATIVE EXTREMITY EXAM: There is mild swelling to the right lower extremity, no obvious deformity is noted. No bruising. Patient has chronic leg wounds noted to the skin but nothing appears acute at this time. Patient unable to flex or extend the right ankle or knee due to pain. Patient has pain with movement of toes on the right side. Neuro: COMMON NORMALS: patient oriented x3 SENSORIUM/ORIENTATION: Yes alert Psych: COMMON NORMALS: mental status grossly normal, Normal thought process present and cooperative THOUGHT PROCESS: Normal thought process present Skin: NARRATIVE SKIN EXAM: Chronic wounds noted to bilateral lower legs Course ED course: 76-year-old female with a significant medical history presents to the ER today after falling this morning. Patient fell while trying to feed her cats and her legs gave out on her. She reports feeling a pop in the right lower extremity and has been unable to move the right lower leg since without extreme pain. We will get an x-ray of the right lower extremity at this time. Patient was given fentanyl and took a Percocet prior to coming. She is comfortable as long as she is not moving. Vital Signs: Vital signs: Vital Signs Temperature 97.8 F 09/11/21 10:23 Pulse Rate 70 09/11/21 10:41 Respiratory Rate 17 09/11/21 10:41 Blood Pressure 136/66 09/11/21 10:41 Pulse Oximetry 95 09/11/21 10:41 MDM - Extremity (Nontraumatic) Medical Decision Making 76-year-old female presents to the ER today for right lower extremity pain that started after she fell this AM. Patient reports she was trying to feed her cats when her legs gave out and she fell. She felt a pop in the right lower leg and has had extreme pain since. Patient reports pain with any movement. Patient denies any swelling at this time. She takes pain medication at home and did take some and also received pain medication in the ambulance. Patient denies hitting her head or loss of consciousness. Exam reveals tenderness of the right lower extremity. Patient also has chronic wounds that she is treating at home of bilateral lower legs. No new wounds noted today. X-ray of the right lower extremity does not indicate a fracture of the tibia or the fibula. Patient has a prior injury which appears stable of the right ankle. Patient does have an acute fracture of the right fifth toe. The proximal phalange is fractured at this time. Discussed findings with patient. I would recommend rest and elevation to reduce swelling. Apply ice. Continue home medications. Follow-up with PCP in 2 to 3 days. Return to the ER with new or worsening symptoms. Patient verbalized understanding and is in agreement with the treatment plan. Lab Data Radiology Impressions Tibia/Fibula X-Ray 09/11/21 10:33 IMPRESSION: No acute findings. Foot X-Ray 09/11/21 11:47 IMPRESSION: Nondisplaced comminuted fracture of the base of the proximal phalanx of the 5th toe. Critical Care Time Critical Care Time: Critical Care Time: No Discharge Plan Discharge Patient Disposition: Home Clinical Impression: Fracture of fifth toe, right, closed Fall Qualifiers: Encounter type: initial encounter Qualified Code(s): W19.XXXA - Unspecified fall, initial encounter Condition: Stable Prescriptions: No Action carbidopa-levodopa [Sinemet] 25-100 mg tablet 2 tab PO TID Qty: 360 3RF albuterol sulfate [ProAir HFA] 90 mcg/actuation HFA aerosol inhaler 2 puff inhalation Q6H PRN (Reason: shortness of breath or wheezing) Qty: 6.7 2RF Advair HFA 115-21 mcg/actuation HFA aerosol inhaler 2 puff inhalation BID Qty: 8 2RF oxycodone-acetaminophen 7.5-325 mg tablet 1 tab PO TID PRN (Reason: pain) 30 Days Qty: 90 0RF Rx Instructions: may fill 30 days after last refill. folic acid 1 mg tablet 1 mg PO QAM 0RF hydralazine 25 mg tablet 12.5 mg PO TID 0RF ferrous sulfate [FeroSul] 325 mg (65 mg iron) tablet 325 mg PO BID 0RF furosemide [Lasix] 40 mg tablet 40 mg PO BID 0RF clopidogrel [Plavix] 75 mg tablet 75 mg PO BEDTIME 0RF cholecalciferol (vitamin D3) 25 mcg (1,000 unit) capsule 25 mcg PO DAILY 0RF ondansetron HCl [Zofran] 4 mg tablet 4 mg PO Q8H PRN (Reason: nausea and vomiting) Qty: 30 0RF hydroxyzine pamoate 25 mg capsule 25 mg PO BEDTIME 0RF insulin aspart U-100 [Novolog Flexpen U-100 Insulin] 100 unit/mL (3 mL) insulin pen See Rx Instructions .ROUTE .COMPLEX 0RF Rx Instructions: sliding scale subcutaneously tid prn clonidine HCl 0.3 mg tablet 0.3 mg PO Q8H PRN (Reason: Blood Pressure) 0RF Rx Instructions: Take as needed for systolic BP greater than 160 duloxetine 60 mg capsule,delayed release(DR/EC) 60 mg PO DAILY@12 0RF ropinirole 0.5 mg tablet 0.5 mg PO BEDTIME 0RF solifenacin [Vesicare] 5 mg tablet 5 mg PO DAILY 0RF Lumigan 0.01 % drops 1 drp ophthalmic (eye) BEDTIME 0RF Rx Instructions: each eye metoprolol tartrate 100 mg tablet 100 mg PO BID Qty: 90 3RF ipratropium-albuterol 0.5 mg-3 mg(2.5 mg base)/3 mL Solution For Nebulization 3 ml INHALATION Q6H PRN (Reason: Shortness Of Breath) 0RF acetaminophen 500 mg Tablet 1,000 mg PO Q6H PRN (Reason: Pain) 0RF benzonatate 100 mg Capsule 100 mg PO TID PRN (Reason: Cough) 0RF mirtazapine 30 mg Tablet 30 mg PO BEDTIME 0RF diphenhydramine HCl 25 mg Tablet 25 mg PO Q24H PRN (Reason: Allergy Symptoms) 0RF Triple Antibiotic 3.5-400-5,000 [id number] Ointment In Packet 1 applic TOPICAL DAILY 0RF camphor-menthol 0.2-3.5 % Gel 1 applic TOPICAL Q4H PRN (Reason: Pain) 0RF Rx Instructions: rub in gently and completely MediHoney (honey) 100 % Paste 1 applic TOPICAL DAILY 0RF Rx Instructions: apply medi honey to open area on right buttocks daily simvastatin 40 mg tablet 40 mg PO BEDTIME 0RF budesonide 0.5 mg/2 mL Suspension For Nebulization 0.5 mg INHALATION BID PRN (Reason: Cough) 0RF amlodipine 5 mg Tablet 5 mg PO DAILY Qty: 90 0RF doxycycline monohydrate 100 mg Tablet 100 mg PO BID Qty: 2 0RF spironolactone 25 mg Tablet 25 mg PO BID Qty: 180 0RF gabapentin 800 mg tablet 400 mg PO BID Qty: 180 1RF Lantus Solostar U-100 Insulin 100 unit/mL (3 mL) insulin pen 40 unit SUBCUT QAM Qty: 0 0RF [place] Thyroid 15 mg tablet 45 mg PO QAM Qty: 0 0RF Eliquis 5 mg Tablet 2.5 mg PO BID Qty: 0 0RF Discharge Orders: Discharge ED (Routine); Ordered 09/11/21 Ordered By: Mica Dye Referrals: Lydia Chávez FNP [Primary Care Provider] - Discharge Diet: Usual diet Discharge Activity: Resume usual activity Patient Instructions: Opioid Safety Activity Restrictions/Additional Instructions: Continue home wound care as you have been. Apply ice to reduce swelling in the toe. Continue home medications. Follow-up with PCP in 2 to 3 days. Return to the ER with new or worsening symptoms. Coding Level of Care Code ED Bankruptcy Legal Assistant for Dominick Baca Exam Comprehensive
[2021-09-11 10:41] VITALS: BP 136/66; PULSE 70; RESP 17; O2SAT 95
--- NOTE | 2021-09-11 11:47 | XRR_ITS ---
PROCEDURE INFORMATION: Exam: XR Right Foot Exam date and time: 09/11/2021 11:55 AM Age: 76 years old Clinical indication: Injury or trauma; Fall; Blunt trauma; Foot; Right; Additional info: Fall with rle pain TECHNIQUE: Imaging protocol: XR Right foot. Views: 3 or more views. COMPARISON: CR (LOW EX, ) 09/11/2021 10:56 AM FINDINGS: Bones/joints: There is a comminuted intra-articular fracture involving the base of the proximal phalanx of the 5th toe. Prominent chronic degenerative changes are present in the tarsal metatarsal joints. Soft tissues: Normal. XR/XR foot RT min 3V* [id number] IMPRESSION: Nondisplaced comminuted fracture of the base of the proximal phalanx of the 5th toe.
[2021-09-11 14:43] VITALS: BP 188/121; PULSE 74; RESP 17; O2SAT 97
== END 2021-09-11 14:47 | disposition home or self-care (01) ==
PROVIDERS: Emergency Provider Physician Assistant; PCP Nurse Practitioner Family
DX: S92.514A Nondisplaced fracture of proximal phalanx of right lesser toe(s), initial encounter for closed fracture (principal); W18.30XA Fall on same level, unspecified, initial encounter; Z79.51 Long term (current) use of inhaled steroids; Z79.02 Long term (current) use of antithrombotics/antiplatelets; Z79.4 Long term (current) use of insulin; Z79.01 Long term (current) use of anticoagulants
CPT/HCPCS: 73590; 73630; 99283

== ENCOUNTER 2021-09-14 13:56 | Emergency (ER) | payer MEDICARE, OTHER, SELFPAY ==
--- NOTE | 2021-09-14 14:11 | W.ED.GENADLT ---
HPI - General Adult General: Stated complaint: WEAKNESS/ HGB 6.5/ TARRY STOOLS Time Seen by Provider: 09/14/21 14:03 Source: patient Mode of arrival: EMS Limitations: no limitations History of Present Illness: 76-year-old female presents emergency room from dialysis clinic she had a routine dialysis today her hemoglobin low and she was directed to the emergency room. She has been a little bit lightheaded and weak at times. She is chronically anemic although comparing her previous hemoglobin she is going a little lower than she has been before. She has not been tachycardic or hypotensive. Onset (ago): minute(s) Relieving factors: none Exacerbating factors: none Associated symptoms: Deny chest pain, confusion, cough, diaphoresis, decreased appetite, dyspnea, fevers/chills, headache(s), malaise, nausea, rash, palpitations, seizures, short of breath, syncope, vomiting or weakness Treatments prior to arrival: none Review of Systems Const: Denies: malaise or diaphoresis Card: Denies: chest pain, palpitations or syncope Resp: Denies: dyspnea GI: Denies: abdominal pain, nausea or vomiting : Denies: flank pain, difficulty voiding, dysuria, urinary frequency or urinary urgency Skin/Breast: Denies: rash Neuro: Denies: headache(s) or confusion PFSH ED PFSH: Medical History Anemia in chronic illness Chronic insomnia Chronic renal insufficiency COPD (chronic obstructive pulmonary disease) Diabetes mellitus type 2, insulin dependent Diabetic neuropathy Fibromyalgia History of CVA (cerebrovascular accident) Hyperlipemia Hypertension Hypothyroidism Lumbar disc disease with radiculopathy Neuropathy Parkinson disease Post laminectomy syndrome Sciatica associated with disorder of lumbosacral spine Stage 4 chronic renal impairment associated with type 2 diabetes mellitus Uncontrolled insulin dependent diabetes mellitus Vitamin D deficiency Surgical History Hx of cholecystectomy Hx of foot surgery Hx of hysterectomy Family History Father CAD (coronary artery disease) Mother CAD (coronary artery disease) Diabetes Grandfather CAD (coronary artery disease) Diabetes Social History (Reviewed 09/14/21 @ 15:05 by KRYS Szymanski Smoking and tobacco status: never smoked Second hand smoke exposure: No Alcohol intake: current Alcohol intake frequency: holidays/special occasions only Alcohol type: hard liquor History of recent travel: No Physical Exam Const: COMMON NORMALS: no acute distress GENERAL APPEARANCE: cooperative and comfortable ORIENTATION/CONSCIOUSNESS: Yes awake, Yes oriented to person, Yes oriented to place and Yes oriented to time HENMT: COMMON NORMALS: normocephalic, atraumatic and hearing grossly normal bilaterally HEAD & SCALP: normocephalic and atraumatic Neck/C-Spine: COMMON NORMALS: no JVD Resp: COMMON NORMALS: normal respiratory effort, No retractions, No use of accessory muscles and clear to auscultation bilaterally AUSCULTATION: clear to auscultation bilaterally Cardio: COMMON NORMALS: no JVD, regular rate, regular rhythm and No murmurs present (Cardio) RATE: regular rate RHYTHM: regular rhythm GI: COMMON NORMALS: Soft to palpation and No hepatosplenomegaly present AUSCULTATION: Yes normoactive bowel sounds PALPATION: Yes Soft to palpation, No Tenderness to palpation present (GI), No Guarding due to palpation present (GI) and Yes No hepatosplenomegaly present Neuro: SENSORIUM/ORIENTATION: Yes oriented to person, Yes oriented to place and Yes oriented to time Skin: OTHER: Multiple areas of superficial skin breakdown ulcerations on the legs he is here reviewed exam and there is none that look acutely infected. [facility] - General Adult Medical Decision Making Vital signs are stable suspect patient has taken some time to get to this hemoglobin. We will discharge her from here to outpatients to transfuse unit of blood and then she can be discharged home we will set her up for outpatient consult with surgery for possible endoscopy. Recommend she hold her Eliquis for now. Medical Records I reviewed the patient's medical records. Lab Data I reviewed the patient's lab results. : 09/14/21 14:25 09/14/21 14:25 Laboratory Results WBC 11.9 10^3/uL (4.0-10.0) H 09/14/21 14:25 RBC 1.99 10^6/uL (4.1-5.3) L 09/14/21 14:25 Hgb 6.1 g/dL (11.5-15.3) L* 09/14/21 14:25 Hct 19.4 % (37.0-47.0) L* 09/14/21 14:25 MCV 97.5 fl (81-99) 09/14/21 14:25 MCH 30.7 pg (28.0-34.0) 09/14/21 14:25 MCHC 31.4 g/dL (30.0-36.0) 09/14/21 14:25 RDW 21.0 % (12.1-15.1) H 09/14/21 14:25 Plt Count 322 10^3/cmm (130-400) 09/14/21 14:25 MPV 10.1 fL (7.4-10.4) 09/14/21 14:25 Neut % (Auto) 79.1 % 09/14/21 14:25 Lymph % (Auto) 11.9 % 09/14/21 14:25 [place] % (Auto) 5.0 % 09/14/21 14:25 Eos % (Auto) 2.2 % 09/14/21 14:25 Baso % (Auto) 0.4 % 09/14/21 14:25 Neut # (Auto) 9.39 10^3/uL (1.8-7.7) H 09/14/21 14:25 Lymph # (Auto) 1.4 10^3/uL (0.8-4.8) 09/14/21 14:25 [place] # (Auto) 0.6 10^3/uL (0.2-0.9) 09/14/21 14:25 Eos # (Auto) 0.3 10^3/uL (0.0-0.8) 09/14/21 14:25 Baso # (Auto) 0.1 10^3/uL (0.0-0.1) 09/14/21 14: Nucleated RBC % (auto) 0.3 % 09/14/21 14: Nucleated RBCs # 0.0 /100WBC 09/14/21 14:25 Sodium 139 mmol/L (136-145) 09/14/21 14:25 Potassium 4.0 mmol/L (3.5-5.1) 09/14/21 14:25 Chloride 98 mmol/L (98-107) 09/14/21 14:25 Carbon Dioxide 28 mmol/L (22-29) 09/14/21 14:25 Anion Gap 17.0 (5-19) 09/14/21 14:25 BUN 17 mg/dL (8-23) 09/14/21 14:25 Creatinine 1.6 mg/dL (0.5-0.9) H 09/14/21 14:25 GFR Calculation Not Reportable 09/14/21 14:25 Glucose 133 mg/dL (65-115) H 09/14/21 14:25 Calculated Osmolality 291 mOsm/kg (285-295) 09/14/21 14:25 Calcium 8.1 mg/dL (8.5-10.5) L 09/14/21 14:25 Total Bilirubin 0.4 mg/dL (0.15-1.2) 09/14/21 14:25 AST 12 U/L (0-32) 09/14/21 14:25 ALT < 5 U/L (0-33) 09/14/21 14:25 Alkaline Phosphatase 123 IU/L (35-105) H 09/14/21 14:25 Total Protein 7.4 g/dL (6.6-8.7) 09/14/21 14:25 Albumin 3.8 g/dL (3.5-5.2) 09/14/21 14:25 Globulin 3.6 g/dL (1.3-4.6) 09/14/21 14:25 Discharge Plan Discharge Patient Disposition: Home Clinical Impression: Anemia, ESRD on dialysis Condition: Stable Prescriptions: No Action carbidopa-levodopa [Sinemet] 25-100 mg tablet 2 tab PO TID Qty: 360 3RF albuterol sulfate [ProAir HFA] 90 mcg/actuation HFA aerosol inhaler 2 puff inhalation Q6H PRN (Reason: shortness of breath or wheezing) Qty: 6.7 2RF Advair HFA 115-21 mcg/actuation HFA aerosol inhaler 2 puff inhalation BID Qty: 8 2RF oxycodone-acetaminophen 7.5-325 mg tablet 1 tab PO TID PRN (Reason: pain) 30 Days Qty: 90 0RF Rx Instructions: may fill 30 days after last refill. folic acid 1 mg tablet 1 mg PO QAM 0RF hydralazine 25 mg tablet 12.5 mg PO TID 0RF ferrous sulfate [FeroSul] 325 mg (65 mg iron) tablet 325 mg PO BID 0RF furosemide [Lasix] 40 mg tablet 40 mg PO BID 0RF clopidogrel [Plavix] 75 mg tablet 75 mg PO BEDTIME 0RF cholecalciferol (vitamin D3) 25 mcg (1,000 unit) capsule 25 mcg PO DAILY 0RF ondansetron HCl [Zofran] 4 mg tablet 4 mg PO Q8H PRN (Reason: nausea and vomiting) Qty: 30 0RF hydroxyzine pamoate 25 mg capsule 25 mg PO BEDTIME 0RF insulin aspart U-100 [Novolog Flexpen U-100 Insulin] 100 unit/mL (3 mL) insulin pen See Rx Instructions .ROUTE .COMPLEX 0RF Rx Instructions: sliding scale subcutaneously tid prn clonidine HCl 0.3 mg tablet 0.3 mg PO Q8H PRN (Reason: Blood Pressure) 0RF Rx Instructions: Take as needed for systolic BP greater than 160 duloxetine 60 mg capsule,delayed release(DR/EC) 60 mg PO DAILY@12 0RF ropinirole 0.5 mg tablet 0.5 mg PO BEDTIME 0RF solifenacin [Vesicare] 5 mg tablet 5 mg PO DAILY 0RF Lumigan 0.01 % drops 1 drp ophthalmic (eye) BEDTIME 0RF Rx Instructions: each eye metoprolol tartrate 100 mg tablet 100 mg PO BID Qty: 90 3RF ipratropium-albuterol 0.5 mg-3 mg(2.5 mg base)/3 mL Solution For Nebulization 3 ml INHALATION Q6H PRN (Reason: Shortness Of Breath) 0RF acetaminophen 500 mg Tablet 1,000 mg PO Q6H PRN (Reason: Pain) 0RF benzonatate 100 mg Capsule 100 mg PO TID PRN (Reason: Cough) 0RF mirtazapine 30 mg Tablet 30 mg PO BEDTIME 0RF diphenhydramine HCl 25 mg Tablet 25 mg PO Q24H PRN (Reason: Allergy Symptoms) 0RF Triple Antibiotic 3.5-400-5,000 [id number] Ointment In Packet 1 applic TOPICAL DAILY 0RF camphor-menthol 0.2-3.5 % Gel 1 applic TOPICAL Q4H PRN (Reason: Pain) 0RF Rx Instructions: rub in gently and completely MediHoney (honey) 100 % Paste 1 applic TOPICAL DAILY 0RF Rx Instructions: apply medi honey to open area on right buttocks daily simvastatin 40 mg tablet 40 mg PO BEDTIME 0RF budesonide 0.5 mg/2 mL Suspension For Nebulization 0.5 mg INHALATION BID PRN (Reason: Cough) 0RF amlodipine 5 mg Tablet 5 mg PO DAILY Qty: 90 0RF doxycycline monohydrate 100 mg Tablet 100 mg PO BID Qty: 2 0RF spironolactone 25 mg Tablet 25 mg PO BID Qty: 180 0RF gabapentin 800 mg tablet 400 mg PO BID Qty: 180 1RF Lantus Solostar U-100 Insulin 100 unit/mL (3 mL) insulin pen 40 unit SUBCUT QAM Qty: [address] [place] Thyroid 15 mg tablet 45 mg PO QAM Qty: 0 0RF Eliquis 5 mg Tablet 2.5 mg PO BID Qty: 0 0RF Discharge Orders: Discharge ED (Routine); Ordered 09/14/21 Ordered By: Federico Mccarty Referrals: Lydia Chávez FNP [Primary Care Provider] - Discharge Diet: Usual diet Discharge Activity: Increase activity as tolerated Patient Instructions: Opioid Safety Activity Restrictions/Additional Instructions: After discharge proceed to the GI Lab will transfuse 1 unit of blood. Coding Level of Care Code ED [place] for Dominick Baca
[2021-09-14 14:33] LABS: Basophils # 0.1 10^3/uL (0.0-0.1); Basophils % 0.4 %; Eosinophils # 0.3 10^3/uL (0.0-0.8); Eosinophils % 2.2 %; Lymphocytes # 1.4 10^3/uL (0.8-4.8); Lymphocytes % 11.9 %; Mean Corpuscular HGB Conc 31.4 g/dL (30.0-36.0); Mean Corpuscular Hemoglobin 30.7 pg (28.0-34.0); Mean Corpuscular Volume 97.5 fl (81-99); Mean Platelet Volume 10.1 fL (7.4-10.4); Monocytes # 0.6 10^3/uL (0.2-0.9); Neutrophils # 9.39 10^3/uL (1.8-7.7); Neutrophils % 79.1 %; Nucleated Red Blood Cells % 0.3 %; Platelet Count 322 10^3/cmm (130-400); Red Blood Count 1.99 10^6/uL (4.1-5.3); White Blood Count 11.9 10^3/uL (4.0-10.0)
[2021-09-14 14:36] LABS: Hematocrit 19.4 % (37.0-47.0); Hemoglobin 6.1 g/dL (11.5-15.3)
[2021-09-14 14:51] LABS: Alanine Aminotransferase < 5 U/L (0-33); Albumin Level 3.8 g/dL (3.5-5.2); Alkaline Phosphatase 123 IU/L (35-105); Aspartate Amino Transferase 12 U/L (0-32); Blood Urea Nitrogen 17 mg/dL (8-23); Calcium 8.1 mg/dL (8.5-10.5); Carbon Dioxide 28 mmol/L (22-29); Chloride 98 mmol/L (98-107); Globulin 3.6 g/dL (1.3-4.6); Glucose 133 mg/dL (65-115); Osmolality Calculated 291 mOsm/kg (285-295); Sodium 139 mmol/L (136-145); Total Bilirubin 0.4 mg/dL (0.15-1.2); Total Protein 7.4 g/dL (6.6-8.7)
[2021-09-14] MEDS: diphenhydrAMINE 50 mg/mL SDV 1mL 25 MG IVP (14:57)
[2021-09-14 15:06] VITALS: BP 138/78; PULSE 73; RESP 18; O2SAT 95; BMI 31.3
[2021-09-14 15:17] VITALS: BP 114/65; PULSE 75; RESP 16; O2SAT 96
--- NOTE | 2021-09-15 09:36 | DCPLANNER ---
Addendum entered by Leonie Le 09/22/21 15:51: Patient had a follow up appointment scheduled for 09.22.21 with general surgery - patient did attend appointment. Original Note: physiotherapy practice manager had message to schedule a follow up appointment for patient with general surgery. physiotherapy practice manager sent patients information to the front office staff at general surgery. Patients information will be printed and reviewed. Clinic will call patient with appointment information.
== END 2021-09-14 15:15 | disposition home or self-care (01) ==
PROVIDERS: Emergency Provider Family Medicine; PCP Nurse Practitioner Family
DX: E11.22 Type 2 diabetes mellitus with diabetic chronic kidney disease (principal); I12.0 Hypertensive chronic kidney disease with stage 5 chronic kidney disease or end stage renal disease; N18.6 End stage renal disease; Z99.2 Dependence on renal dialysis; D63.1 Anemia in chronic kidney disease; Z79.51 Long term (current) use of inhaled steroids; Z79.891 Long term (current) use of opiate analgesic; Z79.02 Long term (current) use of antithrombotics/antiplatelets; Z79.4 Long term (current) use of insulin; Z79.01 Long term (current) use of anticoagulants
CPT/HCPCS: 80053; 85025; 96374; 99283; J1200

== ENCOUNTER → 2021-09-14 15:45 | Day surgery (SDC) | payer MEDICARE, OTHER, SELFPAY ==
[2021-09-14] VITALS (7 sets, daily range): BP systolic 144–165; BP diastolic 51–73; PULSE 74–89; RESP 17–20; TEMP 36.6–37.3; O2SAT 95–98; BMI 40.5
[2021-09-14] MEDS: ondansetron 2 mg/ML SDV 2 mL 4 MG IVP (17:18)
[2021-09-14] MEDS: sodium chloride 0.9% (100 ml) 100 ML 30 ML (17:19)
[2021-09-14] MEDS: oxyCODONE-APAP 5-325 mg Tablet 1 TAB PO (17:50)
== END | disposition home or self-care (01) ==
PROVIDERS: PCP Nurse Practitioner Family; Visit Provider Family Medicine
DX: D64.9 Anemia, unspecified (principal)
CPT/HCPCS: 36430; 86850; 86900; 86920; J2405; P9016

== ENCOUNTER → 2021-09-22 08:53 | Day surgery (SDC) | payer MEDICARE, OTHER, SELFPAY ==
[2021-09-22 09:00] VITALS: BMI 39.9
[2021-09-22 10:18] VITALS: BP 137/60; PULSE 70; RESP 18; TEMP 36.6; O2SAT 95
[2021-09-22 10:34] VITALS: BP 130/66; PULSE 71; RESP 16; TEMP 36.9; O2SAT 95
[2021-09-22 10:49] VITALS: BP 156/54; PULSE 68; RESP 18; TEMP 36.6; O2SAT 98
[2021-09-22 11:04] VITALS: BP 161/53; PULSE 70; RESP 18; TEMP 36.4; O2SAT 96
[2021-09-22] MEDS: diphenhydrAMINE 25 mg Capsule PO (11:25)
[2021-09-22 12:04] VITALS: BP 144/56; PULSE 68; RESP 18; TEMP 36.6; O2SAT 93
[2021-09-22 12:34] VITALS: BP 158/62; PULSE 73; RESP 18; TEMP 36.9; O2SAT 95
== END ==
PROVIDERS: PCP Nurse Practitioner Family; Visit Provider Internal Medicine Nephrology
DX: D50.9 Iron deficiency anemia, unspecified (principal); K92.1 Melena
CPT/HCPCS: 36415; 36430; 86850; 86900; 86920; 99213; P9016

== ENCOUNTER 2021-11-15 11:38 | Outpatient (CLI) | payer MEDICARE, OTHER, SELFPAY ==
--- NOTE | 2021-11-15 11:55 | USCV_ITS ---
Meghna Chaudhari Age: 76 Gender: F : 1945 Exam Date: 11/15/2021 12:15 Ordering Phys: Teresita Cardoza Technologist: Rohan Soliz Exam Location: [facility] – [place] Indication: pre op shunt Findings see paper report all veins in great shape On the left side, the axillary, brachial, radial and ulnar arteries were identified and interrogated. This arteries were found to be patent and they measured 4.1, 5.2, 2.5, and 1.8 mm in diameter, respectively. The axillary, brachial, cephalic and basilic veins also identified. They are found to be patent with no evidence of thrombosis. The axillary vein measured 4.1 mm in diameter. The cephalic vein measured 3.7, 4.1 and 2.0 mm at the upper arm, forearm and near the wrist, respectively. The basilic vein measured 5.2 mm in the upper arm. 3.6 mm at the antecubital space. The median basilic vein measured 4.7 mm. On the right side the axillary, brachial, radial and the ulnar arteries were identified and interrogated. This arteries where measuring 4.1, 4.8, 2.1 and 2.8 mm respectively. The axillary vein was measuring 3.1 mm in diameter. The cephalic vein at the upper arm measured 1.8 mm. In the forearm it was measuring 1.4 and at the wrist, measured 2.1 mm. The basilic vein measured 5.1 mm in the upper arm. Near the antecubital space, it was measuring 6.3 mm. The median basilic vein was measuring 4.5 mm in the AC space. Conclusions 1. Patent upper extremity veins bilaterally with no evidence of thrombosis 2. Patent , relatively normal caliber upper extremity arteries bilaterally For the David's test results, please see separate report Dr Adalgisa Orozco MD [facility] (Electronically Signed) Final Date: 16 November 2021 08:24 S
--- NOTE | 2021-11-15 11:55 | USCV_ITS ---
Meghna Chaudhari Age: 76 Gender: F : 1945 Exam Date: 11/15/2021 12:47 Ordering Phys: Teresita Cardoza Technologist: Rohan Soliz Exam Location: [facility] [place] Indication: PRE OP Risk Factors: Previous Vascular Surgery: Right BP: 165.00 / 75.00 Left BP: 169.00 / 72.00 RIGHT LEFT PSV PSV (cm/s) (cm/s) Waveform Waveform Triphasic 89.7 Subclavian Proximal 83.0 Triphasic Triphasic 112.1 Subclavian Distal 93.7 Triphasic Triphasic 97.1 Axillary 173.7 Triphasic Triphasic 92.9 Brachial Proximal 99.5 Triphasic Triphasic 86.3 Brachial Mid 144.2 Triphasic Triphasic 87.9 Brachial at AC 122.5 Triphasic Triphasic 63.9 Radial Proximal 89.3 Triphasic Triphasic 92.1 Radial Mid 64.7 Triphasic Triphasic 47.3 Radial at Wrist 81.3 Triphasic Triphasic 48.1 Ulnar Proximal 70.5 Triphasic Triphasic 87.9 Ulnar Mid 82.1 Triphasic Triphasic 78.8 Ulnar at Wrist 93.7 Triphasic 1.0 Radial/Brachial Index 1.0 1.0 Ulnar/Brachial Index 1.0 FINDINGS PATIENT DID NOT PASS ALLENS TEST ON RT WITH ULNAR COMPRESSION PT DID NOT PASS ALLENS TEST LT ULNAR COMPRESSION The [place] arch blood supply was compromised with the ulnar artery compression bilaterally Normal arterial Doppler waveforms and velocities bilaterally Normal RBIs and UBIs bilaterally CONCLUSIONS 1. Negative David's test bilaterally, suggesting compromised radial artery circulation. 2. Normal radial/brachial and ulnar/ brachial indices bilaterally. The above features may suggest the lesions involving the distal segment of the artery Dr Adalgisa Orozco MD [facility] (Electronically Signed) Final Date: 16 November 2021 08:21 S
== END 2021-11-15 11:39 | disposition home or self-care (01) ==
LOC: RAD 11:38
PROVIDERS: PCP Nurse Practitioner Family; Visit Provider Nurse Practitioner Family
DX: N18.6 End stage renal disease (principal); Z01.818 Encounter for other preprocedural examination
CPT/HCPCS: 93930; 93970

== ENCOUNTER 2022-01-08 15:02 | Emergency (ER) | payer MEDICARE, OTHER, SELFPAY ==
[2022-01-08 15:08] VITALS: BP 143/100; PULSE 104; RESP 22; TEMP 36.8; O2SAT 98
[2022-01-08 15:13] VITALS: BP 138/90; PULSE 100; RESP 18; TEMP 36.8; O2SAT 94
--- NOTE | 2022-01-08 15:32 | ED_ITS ---
HPI - General Adult General: Chief complaint: Extremity Injury, Lower Stated complaint: SEVERE EDEMA TO BLE'S Time Seen by Provider: 01/08/22 15:05 History of Present Illness: Patient is a 76-year-old female states history of dialysis and chronic bilateral lower extremity swelling who presents emergency room for evaluation of skin sloughing and pain for the last week. Patient tells me that last week she missed her dialysis session noticed that her legs are swollen. Patient was taking a shower when suddenly her skin was scraped off the anterior belle and fell on the right side. Since then, patient has been having significant pain. Patient was told to come to the emergency room for evaluation. Patient arrival denies any fever/chills, drainage from the wound. Patient is getting daily wound dressing but reports significant pain and burning sensation. Onset: 1 week ago Duration:1 week Location:ongoing Severity:assisted living facility Associated symptoms: Deny chest pain, dyspnea, nausea, palpitations or vomiting Review of Systems Const: Denies: fever(s) or chills Eyes: Denies: change in vision ENMT: Denies: mouth pain Card: Denies: chest pain or palpitations Resp: Denies: dyspnea or non-productive cough GI: Denies: abdominal pain, nausea, vomiting or diarrhea : Denies: dysuria Musc: Denies: extremity pain Skin/Breast: Reports: new lesions (+R leg wound) Neuro: Denies: weakness in extremities Psych: Reports: other (Normal mood) Tank/Lymph: Denies: easy bruising PFSH ED PFSH: Medical History Anemia in chronic illness Chronic insomnia Chronic renal insufficiency COPD (chronic obstructive pulmonary disease) Diabetes mellitus type 2, insulin dependent Diabetic neuropathy Fibromyalgia History of CVA (cerebrovascular accident) Hyperlipemia Hypertension Hypothyroidism Lumbar disc disease with radiculopathy Neuropathy Parkinson disease Post laminectomy syndrome Sciatica associated with disorder of lumbosacral spine Stage 4 chronic renal impairment associated with type 2 diabetes mellitus Uncontrolled insulin dependent diabetes mellitus Vitamin D deficiency Surgical History Hx of cholecystectomy Hx of foot surgery Hx of hysterectomy Family History Father CAD (coronary artery disease) Mother CAD (coronary artery disease) Diabetes Grandfather CAD (coronary artery disease) Diabetes Social History Smoking and tobacco status: former smoker Second hand smoke exposure: No Alcohol intake: current Alcohol intake frequency: holidays/special occasions only Alcohol type: hard liquor History of recent travel: No Physical Exam Const: COMMON NORMALS: alert HENMT: COMMON NORMALS: atraumatic HEAD & SCALP: atraumatic MOUTH: moist mucous membranes not abnormal Eye: COMMON NORMALS: EOMs intact bilaterally and conjunctivae normal CONJUNCTIVA: Yes conjunctivae normal Neck/C-Spine: COMMON NORMALS: full ROM and supple Chest: OTHER: R sided hemodialysis cathether dry/clean/infact Resp: COMMON NORMALS: normal respiratory effort and clear to auscultation bilaterally AUSCULTATION: clear to auscultation bilaterally Cardio: COMMON NORMALS: regular rate RATE: regular rate GI: COMMON NORMALS: Soft to palpation and non-tender PALPATION: Yes Soft to palpation Extremity: COMMON NORMALS: full ROM Neuro: SENSORIUM/ORIENTATION: Yes alert MOTOR EXAM: No Abnormal motor strength present and Other motor observations present (no focal motor deficits) Psych: COMMON NORMALS: speech normal SPEECH: Yes normal speech MOOD & AFFECT: Yes euthymic mood Skin: OTHER: +R leg wound clean granulating without any drainage fluctuance or crusting on the anterior belle measuring 10cm x 15cm Course Vital Signs: Vital signs: Vital Signs Temperature 98.3 F 01/08/22 15:13 Pulse Rate 70 01/08/22 17:00 Respiratory Rate 18 01/08/22 17:00 Blood Pressure 148/75 01/08/22 17:00 Pulse Oximetry 94 01/08/22 17:00 Oxygen Delivery Me thod 01/08/22 15:13 MDM - General Adult Medical Decision Making 76-year-old female history ESRD on dialysis presenting to the emergency room for evaluation of right leg wound pain. Physical exam: Patient does not exhibit any signs of infection. The wound appears to be granulating. Patient is neurovas cular intact in the right lower extremity. Patient is afebrile today white count 11.5 similar to patient's baseline. Creatinine of 3.8 expected from dialysis. Patient's wound has been extensively cleaned and dressed today. Patient received pain medicine the emergency room reports the pain significantly improved today. Patient is comfortable watching YouTube videos on her phone. Patient will be started on antibiotics to prevent infection. Instructed patient to follow-up with her PCP so that she can follow-up with wound care for further assessment of the wound. Given the fact the patient has no fever, no systemic symptoms, I do not suspect that this is necrotizing soft tissue infection or any deeper collection of infection. Likely patient is experiencing pain from wound. Rx percocet PRN pain, augmentin for infection prevention Disposition: Discharge. Patient counseled regarding diagnostic impression, treatment plan. Patient given ED strict return precautions to return for faby nuation, worsening, or development of new symptoms. Instructed to f/u w/ PCP regarding symptoms today. Patient verbalized understanding. Lab Data : 01/08/22 15:45 01/08/22 15:45 Laboratory Results WBC 11.5 10^3/uL (4.0-10.0) H 01/08/22 15:45 RBC 3.07 10^6/uL (4.1-5.3) L 01/08/22 15:45 Hgb 9.3 g/dL (11.5-15.3) L 01/08/22 15:45 Hct 30.7 % (37.0-47.0) L 01/08/22 15:45 MCV 100.0 fl (81-99) H 01/08/22 15:45 MCH 30.3 pg (28.0-34.0) 01/08/22 15:45 MCHC 30.3 g/dL (30.0-36.0) 01/08/22 15:45 RDW 15.0 % (12.1-15.1) 01/08/22 15:45 Plt Count 370 10^3/cmm (130-400) 01/08/22 15:45 MPV 10.3 fL (7.4-10.4) 01/08/22 15:45 Neut % (Auto) 70.8 % 01/08/22 15:45 Lymph % (Auto) 15.6 % 01/08/22 15:45 Grimes % (Auto) 9.1 % 01/08/22 15:45 Eos % (Auto) 2.8 % 01/08/22 15:45 Baso % (Auto) 0.8 % 01/08/22 15:45 Neut # (Auto) 8.13 10^3/uL (1.8-7.7) H 01/08/22 15:45 Lymph # (Auto) 1.8 10^3/uL (0.8-4.8) 01/08/22 15:45 Grimes # (Auto) 1.0 10^3/uL (0.2-0.9) H 01/08/22 15:45 Eos # (Auto) 0.3 10^3/uL (0.0-0.8) 01/08/22 15:45 Baso # (Auto) 0.1 10^3/uL (0.0-0.1) 01/08/22 15:45 Nucleated RBC % (auto) 0 % 01/08/22 15:45 Nucleated RBCs # 0.0 /100WBC 01/08/22 15:45 Sodium 139 mmol/L (136-145) 01/08/22 15:45 Potassium 4.7 mmol/L (3.5-5.1) 01/08/22 15:45 Chloride 99 mmol/L (98-107) 01/08/22 15:45 Carbon Dioxide 27 mmol/L (22-29) 01/08/22 15:45 Anion Gap 17.7 (5-19) 01/08/22 15:45 BUN 32 mg/dL (8-23) H 01/08/22 15:45 Creatinine 3.0 mg/dL (0.5-0.9) H 01/08/22 15:45 GFR Calculation Not Reportable 01/08/22 15:45 Glucose 146 mg/dL (65-115) H 01/08/22 15:45 Calculated Osmolality 298 mOsm/kg (285-295) H 01/08/22 15:45 Calcium 9.1 mg/dL (8.5-10.5) 01/08/22 15:45 Discharge Plan Discharge Patient Disposition: Home Clinical Impression: Open wound Condition: Stable Prescriptions: New amoxicillin-pot clavulanate 875-125 mg tablet 1 tab PO BID 7 Days Qty: 14 0RF No Action carbidopa-levodopa [Sinemet] 25-100 mg tablet 2 tab PO TID Qty: 360 3RF albuterol sulfate [ProAir HFA] 90 mcg/actuation HFA aerosol inhaler 2 puff inhalation Q6H PRN (Reason: shortness of breath or wheezing) Qty: 6.7 2RF oxycodone-acetaminophen 7.5-325 mg tablet 1 tab PO TID PRN (Reason: pain) 30 Days Qty: 90 0RF Rx Instructions: may fill 30 days after last refill. folic acid 1 mg tablet 1 mg PO QAM hydralazine 25 mg tablet 12.5 mg PO TID ferrous sulfate [FeroSul] 325 mg (65 mg iron) tablet 325 mg PO BID furosemide [Lasix] 40 mg tablet 40 mg PO BID clopidogrel [Plavix] 75 mg tablet 75 mg PO BEDTIME cholecalciferol (vitamin D3) 25 mcg (1,000 unit) capsule 6,000 unit PO DAILY ondansetron HCl [Zofran] 4 mg tablet 4 mg PO Q8H PRN (Reason: nausea and vomiting) Qty: 30 0RF gabapentin 800 mg tablet 1,200 mg PO BID hydroxyzine pamoate 25 mg capsule 25 mg PO BEDTIME insulin aspart U-100 [Novolog Flexpen U-100 Insulin] 100 unit/mL (3 mL) insulin pen See Rx Instructions .ROUTE .COMPLEX Rx Instructions: sliding scale subcutaneously tid prn clonidine HCl 0.3 mg tablet 0.3 mg PO Q8H PRN (Reason: Blood Pressure) Rx Instructions: Take as needed for systolic BP greater than 160 duloxetine 60 mg capsule,delayed release(DR/EC) 60 mg PO DAILY@12 ropinirole 0.5 mg tablet 0.5 mg PO BEDTIME solifenacin [Vesicare] 5 mg tablet 5 mg PO DAILY Lumigan 0.01 % drops 1 drp ophthalmic (eye) BEDTIME Rx Instructions: each eye metoprolol tartrate 100 mg tablet 100 mg PO BID Qty: 90 3RF ipratropium-albuterol 0.5 mg-3 mg(2.5 mg base)/3 mL Solution For Nebulization 3 ml INHALATION Q6H PRN (Reason: Shortness Of Breath) acetaminophen 500 mg Tablet 1,000 mg PO Q6H PRN (Reason: Pain) benzonatate 100 mg Capsule 100 mg PO TID PRN (Reason: Cough) mirtazapine 30 mg Tablet 30 mg PO BEDTIME camphor-menthol 0.2-3.5 % Gel 1 applic TOPICAL Q4H PRN (Reason: Pain) Rx Instructions: rub in gently and completely amlodipine 5 mg Tablet 5 mg PO DAILY Qty: 90 0RF Lantus Solostar U-100 Insulin 100 unit/mL (3 mL) insulin pen 40 unit SUBCUT QAM Qty: 0 0RF thyroid (pork) [Mcneil Thyroid] 15 mg tablet 45 mg PO QAM Qty: 0 0RF Antacid Chew 1,000 mg 2 tab PO BID Calcium 600 600 mg calcium (1,500 mg) Tablet 600 mg PO BID potassium chloride 20 mEq tablet,ER particles/crystals 20 meq PO TID Banophen 25 mg Tablet 25 mg PO DAILY PRN (Reason: Allergy Symptoms) hydroxyzine HCl 25 mg Tablet 25 mg PO TID PRN (Reason: Itching) Advair HFA 115-21 mcg/actuation HFA aerosol inhaler 2 puff INHALATION BID Discharge Orders: Discharge ED (Routine); Ordered 01/08/22 Ordered By: Brooke Giles Referrals: Lydia Chávez FNP [Primary Care Provider] - Discharge Diet: Advance as tolerated Discharge Activity: Increase activity as tolerated Activity Restrictions/Additional Instructions: Our family independence case manager will have you follow-up with a primary care provider in the next few days. You would be expected to have a phone call with our family independence case manager who will put you on the schedule. You can expect a call from us in the next 2-3 days. If you don't hear from us, call us back in the emergency room at [phone]. Please take your antibiotics as instructed. Watch out for signs of skin changes/redness, mouth redness or swelling, nausea/vomiting, diarrhea, blood in the urine or any new or concering complaints. Please come back to the emergency if you have have any worsening wound, fever/chills, drainage or any other new concerning for Coding Level of Care Code ED Knitting Machine Operator Helper for Dominick Fwd Exam Comprehensive
[2022-01-08 15:51] VITALS: RESP 18; O2SAT 94
[2022-01-08] MEDS: morphine 4 mg/mL SDV 1 mL IVP (15:51)
[2022-01-08 16:05] LABS: Basophils # 0.1 10^3/uL (0.0-0.1); Basophils % 0.8 %; Eosinophils # 0.3 10^3/uL (0.0-0.8); Eosinophils % 2.8 %; Hematocrit 30.7 % (37.0-47.0); Hemoglobin 9.3 g/dL (11.5-15.3); Lymphocytes # 1.8 10^3/uL (0.8-4.8); Lymphocytes % 15.6 %; Mean Corpuscular HGB Conc 30.3 g/dL (30.0-36.0); Mean Corpuscular Hemoglobin 30.3 pg (28.0-34.0); Mean Platelet Volume 10.3 fL (7.4-10.4); Monocytes % 9.1 %; Neutrophils # 8.13 10^3/uL (1.8-7.7); Neutrophils % 70.8 %; Nucleated Red Blood Cells % 0 %; Platelet Count 370 10^3/cmm (130-400); Red Blood Count 3.07 10^6/uL (4.1-5.3); White Blood Count 11.5 10^3/uL (4.0-10.0)
[2022-01-08 16:30] VITALS: PULSE 80
[2022-01-08 16:32] LABS: Anion Gap 17.7 (5-19); Blood Urea Nitrogen 32 mg/dL (8-23); Calcium 9.1 mg/dL (8.5-10.5); Carbon Dioxide 27 mmol/L (22-29); Chloride 99 mmol/L (98-107); Glucose 146 mg/dL (65-115); Osmolality Calculated 298 mOsm/kg (285-295); Potassium 4.7 mmol/L (3.5-5.1); Sodium 139 mmol/L (136-145)
[2022-01-08 17:00] VITALS: BP 148/75; PULSE 70; RESP 18; O2SAT 94
== END 2022-01-08 19:05 | disposition home or self-care (01) ==
PROVIDERS: Emergency Provider Emergency Medicine; PCP Nurse Practitioner Family
DX: S81.801A Unspecified open wound, right lower leg, initial encounter (principal); X58.XXXA Exposure to other specified factors, initial encounter; Z79.02 Long term (current) use of antithrombotics/antiplatelets; Z79.4 Long term (current) use of insulin; J44.9 Chronic obstructive pulmonary disease, unspecified; Z86.73 Personal history of transient ischemic attack (TIA), and cerebral infarction without residual deficits; E78.5 Hyperlipidemia, unspecified; G20 Parkinson's disease; E11.22 Type 2 diabetes mellitus with diabetic chronic kidney disease; I12.0 Hypertensive chronic kidney disease with stage 5 chronic kidney disease or end stage renal disease; N18.6 End stage renal disease; Z99.2 Dependence on renal dialysis; Z87.891 Personal history of nicotine dependence
CPT/HCPCS: 80048; 85025; 96374; 99284; J2270

== ENCOUNTER → 2022-01-16 10:07 | Outpatient (BNVA) | payer MEDICARE, OTHER, SELFPAY | PROVIDERS: PCP Nurse Practitioner Family; Visit Provider Thoracic Surgery (Cardiothoracic Vascular Surgery) | DX: E11.622 Type 2 diabetes mellitus with other skin ulcer (principal); L97.822 Non-pressure chronic ulcer of other part of left lower leg with fat layer exposed; L97.812 Non-pressure chronic ulcer of other part of right lower leg with fat layer exposed; I96 Gangrene, not elsewhere classified; E11.621 Type 2 diabetes mellitus with foot ulcer; L97.422 Non-pressure chronic ulcer of left heel and midfoot with fat layer exposed | CPT/HCPCS: 97597; 97598; 99213 ==

== ENCOUNTER → 2022-01-23 13:32 | Outpatient (BNVA) | payer MEDICARE, OTHER, SELFPAY | PROVIDERS: PCP Nurse Practitioner Family; Visit Provider Thoracic Surgery (Cardiothoracic Vascular Surgery) | DX: E11.622 Type 2 diabetes mellitus with other skin ulcer (principal); L97.822 Non-pressure chronic ulcer of other part of left lower leg with fat layer exposed; L97.812 Non-pressure chronic ulcer of other part of right lower leg with fat layer exposed; L97.422 Non-pressure chronic ulcer of left heel and midfoot with fat layer exposed; I96 Gangrene, not elsewhere classified | CPT/HCPCS: 11042 ==

== ENCOUNTER → 2022-01-30 13:57 | Outpatient (BNVA) | payer MEDICARE, OTHER, SELFPAY | PROVIDERS: PCP Nurse Practitioner Family; Visit Provider Thoracic Surgery (Cardiothoracic Vascular Surgery) | DX: E11.622 Type 2 diabetes mellitus with other skin ulcer (principal); L97.822 Non-pressure chronic ulcer of other part of left lower leg with fat layer exposed; E11.621 Type 2 diabetes mellitus with foot ulcer; L97.422 Non-pressure chronic ulcer of left heel and midfoot with fat layer exposed; I96 Gangrene, not elsewhere classified | CPT/HCPCS: 11042; A6212; A6250 ==

== ENCOUNTER → 2022-02-06 13:04 | Outpatient (BNVA) | payer MEDICARE, OTHER, SELFPAY | PROVIDERS: PCP Nurse Practitioner Family; Visit Provider Thoracic Surgery (Cardiothoracic Vascular Surgery) | DX: I96 Gangrene, not elsewhere classified (principal); E11.621 Type 2 diabetes mellitus with foot ulcer; L97.512 Non-pressure chronic ulcer of other part of right foot with fat layer exposed | CPT/HCPCS: 11042; A6250 ==

== ENCOUNTER → 2022-02-13 13:59 | Outpatient (BNVA) | payer MEDICARE, OTHER, SELFPAY | PROVIDERS: PCP Nurse Practitioner Family; Visit Provider Thoracic Surgery (Cardiothoracic Vascular Surgery) | DX: I96 Gangrene, not elsewhere classified (principal); E11.622 Type 2 diabetes mellitus with other skin ulcer; L97.822 Non-pressure chronic ulcer of other part of left lower leg with fat layer exposed; E11.621 Type 2 diabetes mellitus with foot ulcer; L97.522 Non-pressure chronic ulcer of other part of left foot with fat layer exposed | CPT/HCPCS: 11042; 97597; 97598 ==

== ENCOUNTER → 2022-02-20 14:05 | Outpatient (BNVA) | payer MEDICARE, OTHER, SELFPAY | PROVIDERS: PCP Nurse Practitioner Family; Visit Provider Thoracic Surgery (Cardiothoracic Vascular Surgery) | DX: I96 Gangrene, not elsewhere classified (principal); E11.622 Type 2 diabetes mellitus with other skin ulcer; L97.822 Non-pressure chronic ulcer of other part of left lower leg with fat layer exposed; E11.621 Type 2 diabetes mellitus with foot ulcer; L97.522 Non-pressure chronic ulcer of other part of left foot with fat layer exposed | CPT/HCPCS: 11042; 97597; 97598 ==

== ENCOUNTER 2022-04-06 16:27 | Inpatient (IN) | payer MEDICARE, OTHER, SELFPAY ==
[2022-04-06] VITALS (7 sets, daily range): BP systolic 118–163; BP diastolic 48–88; PULSE 73–89; RESP 15–26; TEMP 37–37.6; O2SAT 93–99; BMI 40.4
--- NOTE | 2022-04-06 16:52 | ECG_ITS ---
[facility] Test Date: 2022-04-06 Pat Name: Meghna Chaudhari Department: Room: Gender: Female Hanging Flags Decorator: : 1945 Requested By: Lev Ardon Order Number: [id number] Ruiz MD: Mellisa Sommer M.D. Measurements Intervals Simms Rate: 84 P: 87 [place]: 193 QRS: 46 QRSD: 112 T: 76 QT: 377 QTc: 446 Interpretive Statements SINUS RHYTHM POSSIBLE RIGHT VENTRICULAR CONDUCTION DELAY [RSR (QR) IN V1/V2] Compared to ECG 08/03/2021 17:08:09 Sinus bradycardia no longer present T-wave abnormality no longer present Electronically Signed On 04-07-2022 13:12:42 PUBLIC ADDRESS SERVICER by Mellisa Sommer M.D. [email or web address]
--- NOTE | 2022-04-06 17:09 | PC.PHAR ---
Attempted to call [facility]. Finished Yarn Examiner answered and stated she was unable to help and was not good at transferring calls, she took down the hospital's phone number and stated she would get someone to give a call back. Will update meds when list is received
--- NOTE | 2022-04-06 17:55 | XRR_ITS ---
PROCEDURE INFORMATION: Exam: XR Chest Exam date and time: 04/06/2022 6:06 PM Age: 77 years old Clinical indication: Cough and shortness of breath; Patient HX: SOB resp distress TECHNIQUE: Imaging protocol: Radiologic exam of the chest. Views: 1 view. COMPARISON: CR XR chest 1V portable [id number] 08/07/2021 1:14 PM FINDINGS: Tubes, catheters and devices: Right central line terminates in the proximal right atrium. Spinal stimulator leads project over the mid/lower thoracic spine. Lungs: Medial right basilar opacity. Pleural spaces: Unremarkable. No pleural effusion. No pneumothorax. Heart/Mediastinum: Cardiomegaly. Bones/joints: Unremarkable. XR/XR chest 1V portable [id number] IMPRESSION: Medial right basilar opacity, potential infiltrate/pneumonia.
--- NOTE | 2022-04-06 17:57 | ED_ITS ---
HPI - SOB/Dyspnea General: Chief Complaint: Shortness of Breath/Dyspnea Stated Complaint: resp distress Time Seen by Provider: 04/06/22 16:40 Source: patient and family Mode of arrival: wheelchair Limitations: no limitations History of Present Illness: HPI Narrative: Patient presents to the emergency department because of increasing cough productive of yellow sputum and difficulty breathing. States the symptoms have progressed over the last 2 days. She was seen in her outpatient clinic and noted to be positive for influenza A and negative for COVID-19. He has a history of congestive heart failure as well as COPD but does not use oxygen at home. She missed dialysis on Sunday but went to dialysis today but did not feel well at the end of her 4-hour dialysis run and came to the emergency department. She has had loose stools in addition to her respiratory symptoms. She denies any chest pain. She denies any vomiting. She has had flu vaccine this year as well as COVID-19 vaccinations. She is also had previous pneumonia vaccine. Pertinent past history: COPD Associated symptoms: Reports fever(s); Deny abdominal pain, chest pain, extremity pain, hemoptysis, nausea, palpitations or vomiting Review of Systems Const: Reports: fever(s), chills and body aches ENMT: Denies: throat pain, odynophagia, nasal discharge or nasal congestion Card: Reports: edema and swelling of feet/ankles; Denies: chest pain, palpitations or irregular heart rhythm Resp: Reports: productive cough and wheezing; Denies: hemoptysis GI: Reports: diarrhea; Denies: abdominal pain, nausea, vomiting, hematemesis, hematochezia or melena : Reports: oliguria; Denies: flank pain Musc: Reports: extremity swelling; Denies: neck pain, back pain or extremity pain Skin/Breast: Denies: rash or pruritus Neuro: Denies: headache(s), numbness in extremities or weakness in extremities Tank/Lymph: Reports: easy bruising PFS ED PFSH: Medical History Anemia in chronic illness Chronic insomnia Chronic renal insufficiency COPD (chronic obstructive pulmonary disease) Diabetes mellitus type 2, insulin dependent Diabetic neuropathy Fibromyalgia History of CVA (cerebrovascular accident) Hyperlipemia Hypertension Hypothyroidism Lumbar disc disease with radiculopathy Neuropathy Parkinson disease Post laminectomy syndrome Sciatica associated with disorder of lumbosacral spine Stage 4 chronic renal impairment associated with type 2 diabetes mellitus Uncontrolled insulin dependent diabetes mellitus Vitamin D deficiency Surgical History Hx of cholecystectomy Hx of foot surgery Hx of hysterectomy Family History Father CAD (coronary artery disease) Mother CAD (coronary artery disease) Diabetes Grandfather CAD (coronary artery disease) Diabetes Social History Smoking and tobacco status: former smoker Second hand smoke exposure: No Alcohol intake: current Alcohol intake frequency: holidays/special occasions only Alcohol type: hard liquor History of recent travel: No Physical Exam Narrative: EXAM NARRATIVE: Patient makes good eye contact. She is dyspneic with prolonged sentences but goal-directed. Const: COMMON NORMALS: patient oriented x3 and alert GENERAL APPEARANCE: cooperative NUTRITIONAL APPEARANCE: overweight HENMT: COMMON NORMALS: normocephalic, Normal external nose present, Normal nasal mucous membranes and turbinates present and oropharynx normal; oral mucous membranes not moist HEAD & SCALP: normocephalic FACE & SINUS: normal facial exam NOSE: Normal external nose present and Normal nasal mucous membranes and turbinates present Eye: COMMON NORMALS: Equal, round and reactive pupils present, EOMs intact bilaterally and conjunctivae normal CONJUNCTIVA: Yes conjunctivae normal PUPIL: Yes Equal, round and reactive pupils present Neck/C-Spine: COMMON NORMALS: full ROM, no lymphadenopathy, no JVD and No carotid bruits Chest: COMMONS NORMALS: normal inspection of the chest Resp: EFFORT & INSPECTION: Yes decreased respiratory effort AUSCULTATION: rhonchi right upper and right lower and wheezes Cardio: COMMON NORMALS: no JVD, regular rate, regular rhythm, No murmurs present (Cardio) and Peripheral pulses 2+ throughout RATE: regular rate RHYTHM: regular rhythm PERIPHERAL PULSES: Peripheral pulses 2+ throughout GI: COMMON NORMALS: Normal to inspection, nondistended, normoactive bowel sounds present, Soft to palpation and non-tender PALPATION: Yes Soft to palpation Back/Pelvis: COMMON NORMALS: thoracic and lumbar spine normal to inspection, no thoracic nor lumbar tenderness and thoraco-lumbar ROM normal Extremity: COMMON NORMALS: capillary refill normal NARRATIVE EXTREMITY EXAM: Bilateral lower extremity edema with some erythema of the skin bilaterally. Has tenderness to palpation over the lower extremities. No calf swelling or tenderness negative Homans. Neuro: COMMON NORMALS: patient oriented x3, moves all extremities, no focal motor deficits and no sensory deficits noted SENSORIUM/ORIENTATION: Yes alert CRANIAL NERVES: Yes CN normal except as noted Psych: COMMON NORMALS: mental status grossly normal Skin: COMMON NORMALS: turgor normal GENERAL SKIN EXAM: turgor normal Course Reevaluation(s): Reevaluation #1: Patient states she does not feel much better after her breathing treatment. Family reports she seems to be resting easier. Repeat examination reveals decreased wheeze some rhonchi still present right greater than left. I shared current findings and recommendations for at least observation which she and family agreed to. Time: 20:11 Consultations: Consultation #1: Discussed with overnight hospitalist who agreed to place the patient in observation. Time: 20:12 Vital Signs: Vital signs: Vital Signs Temperature 99.4 F 04/06/22 16:39 Pulse Rate 85 04/06/22 19:10 Respiratory Rate 20 H 04/06/22 19:10 Blood Pressure 163/77 04/06/22 16:39 Pulse Oximetry 93 04/06/22 19:10 Oxygen Delivery Me thod 04/06/22 19:10 Oxygen Flow Rate 2 04/06/22 19:10 MDM - SOB/Dyspnea Medical Decision Making Patient positive for influenza A comes to our emergency department with persistent malaise, productive cough subjective fevers and other symptoms of not feeling well despite having dialysis today. Evaluation in the emergency department revealed that she had a right-sided infiltrate consistent with likely bacterial pneumonia. She will be placed in observation for continued breathing treatments, antibiotics, fluids and/or dialysis as needed and response to therapy. Medical Records I reviewed the patient's medical records. Lab Data I reviewed the patient's lab results. 04/06/22 19:05 04/06/22 19:05 Labs/Radiology: Radiology Impressions Chest X-Ray 04/06/22 17:55 IMPRESSION: Medial right basilar opacity, potential infiltrate/pneumonia. Laboratory Results WBC 20.0 10^3/uL (4.0-10.0) H 04/06/22 19:05 RBC 3.00 10^6/uL (4.1-5.3) L 04/06/22 19:05 Hgb 9.6 g/dL (11.5-15.3) L 04/06/22 19:05 Hct 29.6 % (37.0-47.0) L 04/06/22 19:05 MCV 98.7 fl (81-99) 04/06/22 19:05 MCH 32.0 pg (28.0-34.0) 04/06/22 19:05 MCHC 32.4 g/dL (30.0-36.0) 04/06/22 19:05 RDW 16.2 % (12.1-15.1) H 04/06/22 19:05 Plt Count 198 10^3/cmm (130-400) 04/06/22 19:05 MPV 10.8 fL (7.4-10.4) H 04/06/22 19:05 Neut % (Auto) 89.6 % 04/06/22 19:05 Lymph % (Auto) 3.0 % 04/06/22 19:05 [place] % (Auto) 6.3 % 04/06/22 19:05 Eos % (Auto) 0.0 % 04/06/22 19:05 Baso % (Auto) 0.2 % 04/06/22 19:05 Neut # (Auto) 17.92 10^3/uL (1.8-7.7) H 04/06/22 19:05 Lymph # (Auto) 0.6 10^3/uL (0.8-4.8) L 04/06/22 19:05 [place] # (Auto) 1.3 10^3/uL (0.2-0.9) H 04/06/22 19:05 Eos # (Auto) 0.0 10^3/uL (0.0-0.8) 04/06/22 19:05 Baso # (Auto) 0.0 10^3/uL (0.0-0.1) 04/06/22 19:05 Nucleated RBC % (auto) 0 % 04/06/22 19:05 Nucleated RBCs # 0.0 /100WBC 04/06/22 19:05 Sodium 137 mmol/L (136-145) 04/06/22 19:05 Potassium 3.6 mmol/L (3.5-5.1) 04/06/22 19:05 Chloride 97 mmol/L (98-107) L 04/06/22 19:05 Carbon Dioxide 23 mmol/L (22-29) 04/06/22 19:05 Anion Gap 20.6 (5-19) H 04/06/22 19:05 BUN 36 mg/dL (8-23) H 04/06/22 19:05 Creatinine 3.0 mg/dL (0.5-0.9) H 04/06/22 19:05 GFR Calculation Not Reportable 04/06/22 19:05 Glucose 127 mg/dL (65-115) H 04/06/22 19:05 Calculated Osmolality 294 mOsm/kg (285-295) 04/06/22 19:05 Calcium 7.6 mg/dL (8.5-10.5) L 04/06/22 19:05 Total Bilirubin 0.7 mg/dL (0.15-1.2) 04/06/22 19:05 AST 34 U/L (0-32) H 04/06/22 19:05 ALT 5 U/L (0-33) 04/06/22 19:05 Alkaline Phosphatase 111 U/L (35-105) H 04/06/22 19:05 Total Protein 7.7 g/dL (6.6-8.7) 04/06/22 19:05 Albumin 3.6 g/dL (3.5-5.2) 04/06/22 19:05 Globulin 4.1 g/dL (1.3-4.6) 04/06/22 19:05 EKG Data EKG 1: I personally reviewed and interpreted this EKG as follows: Interpretation: Contemporaneous interpretation of the resting EKG reveals a ventricular rate of 81 bpm. Normal intervals, normal axis, normal QTC. No acute ST-T wave changes or other concerns noted at this time. Discharge Plan Discharge Patient Disposition: Placed in Observation Clinical Impression: Pneumonia, Influenza A, Hyponatremia, Chronic kidney disease Condition: Stable Prescriptions: No Action carbidopa-levodopa [Sinemet] 25-100 mg tablet 2 tab PO TID Qty: 360 3RF albuterol sulfate [ProAir HFA] 90 mcg/actuation HFA aerosol inhaler 2 puff inhalation Q6H PRN (Reason: shortness of breath or wheezing) Qty: 6.7 2RF oxycodone-acetaminophen 7.5-325 mg tablet 1 tab PO TID PRN (Reason: pain) 30 Days Qty: 90 0RF Rx Instructions: may fill 30 days after last refill. folic acid 1 mg tablet 1 mg PO QAM hydralazine 25 mg tablet 12.5 mg PO TID ferrous sulfate [FeroSul] 325 mg (65 mg iron) tablet 325 mg PO BID furosemide [Lasix] 40 mg tablet 40 mg PO BID clopidogrel [Plavix] 75 mg tablet 75 mg PO BEDTIME cholecalciferol (vitamin D3) 25 mcg (1,000 unit) capsule 6,000 unit PO DAILY ondansetron HCl [Zofran] 4 mg tablet 4 mg PO Q8H PRN (Reason: nausea and vomiting) Qty: 30 0RF gabapentin 800 mg tablet 1,200 mg PO BID levofloxacin 250 mg tablet 250 mg PO Q48H Qty: 7 0RF Rx Instructions: 2 tablets on day 1 followed by 1 tablet every other day afterwards until complete hydroxyzine pamoate 25 mg capsule 25 mg PO BEDTIME insulin aspart U-100 [Novolog Flexpen U-100 Insulin] 100 unit/mL (3 mL) insulin pen See Rx Instructions .ROUTE .COMPLEX Rx Instructions: sliding scale subcutaneously tid prn clonidine HCl 0.3 mg tablet 0.3 mg PO Q8H PRN (Reason: Blood Pressure) Rx Instructions: Take as needed for systolic BP greater than 160 duloxetine 60 mg capsule,delayed release(DR/EC) 60 mg PO DAILY@12 ropinirole 0.5 mg tablet 0.5 mg PO BEDTIME solifenacin [Vesicare] 5 mg tablet 5 mg PO DAILY [place] 0.01 % drops 1 drp ophthalmic (eye) BEDTIME Rx Instructions: each eye metoprolol tartrate 100 mg tablet 100 mg PO BID Qty: 90 3RF ipratropium-albuterol 0.5 mg-3 mg(2.5 mg base)/3 mL Solution For Nebulization 3 ml INHALATION Q6H PRN (Reason: Shortness Of Breath) acetaminophen 500 mg Tablet 1,000 mg PO Q6H PRN (Reason: Pain) benzonatate 100 mg Capsule 100 mg PO TID PRN (Reason: Cough) mirtazapine 30 mg Tablet 30 mg PO BEDTIME camphor-menthol 0.2-3.5 % Gel 1 applic TOPICAL Q4H PRN (Reason: Pain) Rx Instructions: rub in gently and completely amlodipine 5 mg Tablet 5 mg PO DAILY Qty: 90 0RF Lantus Solostar U-100 Insulin 100 unit/mL (3 mL) insulin pen 40 unit SUBCUT QAM Qty: 0 0RF thyroid (pork) [[place] Thyroid] 15 mg tablet 45 mg PO QAM Qty: 0 0RF Antacid Chew 1,000 mg 2 tab PO BID Calcium 600 600 mg calcium (1,500 mg) Tablet 600 mg PO BID potassium chloride 20 mEq tablet,ER particles/crystals 20 meq PO TID Banophen 25 mg Tablet 25 mg PO DAILY PRN (Reason: Allergy Symptoms) hydroxyzine HCl 25 mg Tablet 25 mg PO TID PRN (Reason: Itching) Advair HFA 115-21 mcg/actuation HFA aerosol inhaler 2 puff INHALATION BID Referrals: Lydia Chávez FNP [Primary Care Provider] - Coding Level of Care Code ED Interventional Radiology Technologist for Chg Fwd Exam Comprehensive
[2022-04-06] MEDS: ipratropium-albuterol 3 mL Neb INHALATION (18:08)
--- NOTE | 2022-04-06 18:17 | ECG_ITS ---
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 Measurements Intervals [place] Rate: 81 P: 85 MN: 186 QRS: 27 QRSD: 105 T: 72 QT: 386 QTc: 450 Interpretive Statements SINUS RHYTHM POSSIBLE RIGHT VENTRICULAR CONDUCTION DELAY [RSR (QR) IN V1/V2] Compared to ECG 04/06/2022 16:52:15 No significant changes Electronically Signed On 04-07-2022 13:11:53 CHARGING MANIPULATOR by Mellisa Sommer M.D. [email or web address]
[2022-04-06 19:16] LABS: Basophils % 0.2 %; Hematocrit 29.6 % (37.0-47.0); Hemoglobin 9.6 g/dL (11.5-15.3); Lymphocytes # 0.6 10^3/uL (0.8-4.8); Mean Corpuscular HGB Conc 32.4 g/dL (30.0-36.0); Mean Corpuscular Volume 98.7 fl (81-99); Mean Platelet Volume 10.8 fL (7.4-10.4); Monocytes # 1.3 10^3/uL (0.2-0.9); Monocytes % 6.3 %; Neutrophils # 17.92 10^3/uL (1.8-7.7); Neutrophils % 89.6 %; Nucleated Red Blood Cells % 0 %; Platelet Count 198 10^3/cmm (130-400); Red Cell Distribution Width 16.2 % (12.1-15.1)
--- NOTE | 2022-04-06 20:08 | P.HP_ITS ---
Providers/Chief Complaint Primary Care Provider: MILAGRO Kent Chief Complaint: resp distress History of Present Illness Meghna Chaudhari is a 77 year old female with past medical history of end-stage renal disease, dialysis Sunday, anemia of chronic disease, COPD, CHF, insulin-dependent diabetes mellitus, history of stroke, hyperlipidemia, hypertension, hypothyroidism, Parkinson's disease presented to the hospital from care home today for increasing cough productive of yellow and green sputum and difficulty breathing. Symptoms have been worsening for the last 48 hours. She was seen at an outpatient clinic and was diagnosed with influenza A but was negative for COVID. Patient did miss her dialysis on Sunday but was able to go to dialysis today and had a 4-hour session and from there came to the ER. She states that she has been having a lot of body aches and shortness of breath. She is expectorating big globs of green sputum. She says she is also been having diarrhea for the last 2 weeks and she is going to the bathroom more than 10 times in a day. It is watery. She also reports cramps in her legs. He says 2 weeks ago she was placed on Levaquin 3 times a day for an infection of a sore on the bottom of her left foot. She has a history of Charcot foot bilaterally. Denies chest pain, vomiting, abdominal pain. Denies dysuria, fever, palpitations. Patient does take inhalers albute rol, Advair. Patient is also on carbidopa levodopa. Patient states that she does not want to be intubated long-term however initial trial of intubation is okay. She may also be okay with CPR at this time. Paperwork from assisted living facility states she is DNR/DNI. However after discussion with patient she says trial of the above is okay. Patient lives in an assisted living facility. ER course: Blood pressure 160/77, respiratory 20, pulse 85, temperature 99.4, saturating 93% on room air. Patient was given a DuoNeb upon arrival and there was improvement in her shortness of breath however still had rhonchi present greater than left side. Chest x-ray done medial right basilar opacity, potentially infiltrate/pneumonia. WBC count 20,000, hemoglobin 9.6, potassium 2.8, gap 20.6, glucose 127, creatinine 3.0. Medications/Allergies Home Medications Medication Instructions Recorded Confirmed Last Taken Type cholecalciferol (vitamin D3) 25 6,000 unit PO DAILY 06/28/20 12/26/21 09/14/21 07:00 History mcg (1,000 unit) capsule clopidogrel 75 mg tablet (Plavix) 75 mg PO BEDTIME 06/28/20 12/26/21 09/13/21 20:00 History folic acid 1 mg tablet 1 mg PO QAM 06/28/20 12/26/21 09/14/21 History furosemide 40 mg tablet (Lasix) 40 mg PO BID 06/28/20 12/26/21 09/14/21 07:00 History carbidopa 25 mg-levodopa 100 mg 2 tab PO TID #360 tabs 12/07/20 12/26/21 09/14/21 07:00 Rx tablet (Sinemet) albuterol sulfate 90 mcg/actuation 2 puff inhalation Q6H PRN 02/01/21 12/26/21 08/31/21 Rx aerosol inhaler (ProAir HFA) shortness of breath or wheezing #6.7 grams bimatoprost 0.01 % eye drops 1 drp ophthalmic (eye) BEDTIME 03/31/21 12/26/21 09/13/21 20:00 History ([place]pe) clonidine HCl 0.3 mg tablet 0.3 mg PO Q8H PRN Blood Pressure 03/31/21 12/26/21 09/13/21 History hydroxyzine pamoate 25 mg capsule 25 mg PO BEDTIME 03/31/21 12/26/21 09/13/21 History insulin aspart U-100 100 unit/mL See Rx Instructions .Route .COMPLEX 03/31/21 12/26/21 09/14/21 07:00 History (3 mL) subcutaneous pen (Novolog Flexpen U-100 Insulin aspart) ropinirole 0.5 mg tablet 0.5 mg PO BEDTIME 03/31/21 12/26/21 09/13/21 20:00 History solifenacin 5 mg tablet (Vesicare) 5 mg PO DAILY 03/31/21 12/26/21 09/13/21 History metoprolol tartrate 100 mg tablet 100 mg PO BID #90 tabs 04/02/21 12/26/21 09/14/21 07:00 Rx ondansetron HCl 4 mg tablet 4 mg PO Q8H PRN nausea and 04/07/21 12/26/21 Unknown Rx (Zofran) vomiting #30 tabs acetaminophen 500 mg tablet 1,000 mg PO Q6H PRN Pain 08/03/21 12/26/21 09/13/21 20:00 History camphor-menthol 0.2 %-3.5 % 1 applic topical Q4H PRN Pain 08/03/21 12/26/21 Unknown History topical gel ipratropium 0.5 mg-albuterol 3 mg 3 ml inhalation Q6H PRN Shortness 08/03/21 12/26/21 08/02/21 History (2.5 mg base)/3 mL nebulization Of Breath soln mirtazapine 30 mg tablet 30 mg PO BEDTIME 08/03/21 12/26/21 09/14/21 07:00 Hist ory insulin glargine 100 unit/mL (3 40 unit (0.4 mL) SUBCUT QAM #0 mL 08/11/21 12/26/21 09/14/21 07:00 Rx mL) subcutaneous pen (Lantus Solostar U-100 Insulin) diphenhydramine HCl 25 mg tablet 25 mg PO DAILY PRN Allergy Symptoms 09/22/21 12/26/21 Unknown History (Banophen) hydroxyzine HCl 25 mg tablet 25 mg PO TID PRN Itching 09/22/21 12/26/21 Unknown History Advair HFA 2 puff PO BID 04/07/22 04/07/22 Unknown History [place] Thyroid 90 mg PO DAILY 04/07/22 04/07/22 Unknown History Banophen 25 mg PO BEDTIME PRN Itching 04/07/22 04/07/22 Unknown History Biofreeze topical PRN PRN Pain 04/07/22 Unknown History Neosporin (fog-onc-gidvf) 1 applic topical DAILY 04/07/22 04/07/22 Unknown History ProAir HFA 108 mcg PO QID PRN Shortness Of 04/07/22 04/07/22 Unknown History Breath Or Wheezing Renal Caps 1 mg PO DAILY 04/07/22 04/07/22 Unknown History benzonatate 100 mg capsule 100 mg PO TID PRN Cough 04/07/22 04/07/22 Unknown History budesonide PO BID 04/07/22 Unknown History cyclobenzaprine 5 mg tablet 5 mg PO TID PRN Muscle Spasm 04/07/22 04/07/22 Unknown History gabapentin 100 mg tablet 100 mg PO TID 04/07/22 04/07/22 Unknown History loperamide 2 mg capsule (Imodium 2 mg PO Q6H PRN Loose Stool 04/07/22 04/07/22 Unknown History A-D) losartan 50 mg tablet 50 mg PO BEDTIME 04/07/22 04/07/22 Unknown History oxycodone [id number] 04/07/22 04/07/22 Unknown History oxycodone CEl-shpzaxaxm-TSV 7.5 mg PO QID PRN Pain 04/07/22 04/07/22 Unknown History promethazine-DM 5 ml PO 6XD PRN Cough 04/07/22 04/07/22 Unknown History sertraline 50 mg tablet 50 mg PO DAILY 04/07/22 04/07/22 Unknown History simvastatin 40 mg tablet 40 mg PO QPM 04/07/22 04/07/22 Unknown History Allergies Allergy/AdvReac Type Severity Reaction Status Date / Time sulfamethoxazole Allergy Rash Verified 12/26/21 16:26 [From Septra] trimethoprim [From Septra] Allergy Rash Verified 12/26/21 16:26 morphine AdvReac Personality Verified 12/26/21 16:26 Change pregabalin [From Lyrica] AdvReac Loopy/Unste Verified 12/26/21 16:26 anoop PFSH Acute PFSH: Medical History Anemia in chronic illness Chronic insomnia Chronic renal insufficiency COPD (chronic obstructive pulmonary disease) Diabetes mellitus type 2, insulin dependent Diabetic neuropathy Fibromyalgia History of CVA (cerebrovascular accident) Hyperlipemia Hypertension Hypothyroidism Lumbar disc disease with radiculopathy Neuropathy Parkinson disease Post laminectomy syndrome Sciatica associated with disorder of lumbosacral spine Stage 4 chronic renal impairment associated with type 2 diabetes mellitus Uncontrolled insulin dependent diabetes mellitus Vitamin D deficiency Surgical History Hx of cholecystectomy Hx of foot surgery Hx of hysterectomy Family History Father CAD (coronary artery disease) Mother CAD (coronary artery disease) Diabetes Grandfather CAD (coronary artery disease) Diabetes Social History Smoking and tobacco status: former smoker Second hand smoke exposure: No Alcohol intake: current Alcohol intake frequency: holidays/special occasions only Alcohol type: hard liquor History of recent travel: No Vitals/I&O/Wt Last Vital Signs Temp 99.4 F 04/06/22 16:39 Pulse 85 04/06/22 19:10 Resp 20 H 04/06/22 19:10 BP 163/77 04/06/22 16:39 Pulse Ox 93 04/06/22 19:10 O2 Del Method 04/06/22 19:10 O2 Flow Rate 2 04/06/22 19:10 Weight last 48 hrs Weight 136.078 kg Physical Exam Narrative: General: Alert oriented x3, patient seen laying in bed on 2 L nasal cannula. No acute respiratory distress present however when she speaks she gets mildly short of breath.. HEENT: Normocephalic, atraumatic, EOMI, Cardio: Regular rate rhythm, normal S1-S2, Respiratory: Bilateral rhonchi and wheezes present, right side greater than left. GI: Abdomen soft, nontender, nondistended, bowel sounds + Extremities: Chronic bilateral lower extremity edema with chronic venous stasis changes present. 2+ edema bilaterally. Both lower extremities wrapped with gauze Band-Aid. Charcot foot bilaterally. 3 cm wound present at plantar surface of left foot. Data 04/06/22 19:05 04/06/22 19:05 Micro: Microbiology 04/06/22 19:05 Blood Culture - Preliminary Blood SPECIMEN COLLECTED A&P Assessment and plan (1) Pneumonia: (2) Influenza A: (3) Chronic kidney disease: (4) Iron deficiency anemia: (5) Acute exacerbation of CHF (congestive heart failure): (6) Bilateral lower extremity edema: (7) Hyperlipemia: (8) History of CVA (cerebrovascular accident): (9) Hypertension: (10) Diarrhea: Plan #Right middle lobe pneumonia #Influenza A positive #End-stage renal disease, on dialysis Sunday #Hypokalemia, potassium 2.8 #Anemia of chronic disease #Acute on chronic diastolic congestive heart failure #COPD exacerbation #Insulin-dependent diabetes mellitus #Hyperlipidemia #Hypertension #History of stroke #Hypothyroidism #Parkinson's disease ? Continue on vancomycin and Zosyn ? Check MRSA nares, bacterial antigens Legionella, Streptococcus ? Last echo July 2021 shows diastolic dysfunction, mild mitral valve regurgitation ? Continue thyroid medicine, mirtazapine, metoprolol tartrate 100 twice daily, hydralazine 12.5 3 times daily, duloxetine 60 daily, folic acid daily, clopidogrel 75, carbidopa levodopa, amlodipine 5 daily, -Check procalcitonin ? DuoNeb every 4 hours scheduled ? Pulmicort 0.5 twice daily nebulization ? Consult nephrology for dialysis ? Sliding scale insulin moderate intensity ? Lantus 40 daily ? We will place on Solu-Medrol 40 twice daily as well ? Check sputum culture and gram stain ? Check blood cultures -Placed on Lasix 40 IV twice daily -Placed on continuous pulse oximetry -Check stool culture, ova parasite, C. difficile. Recent antibiotic use for 2 weeks. -Replete potassium with 20 meq oral x1. -Check iron panel. - Wound care -PT/OT Full code DVT prophylaxis: Heparin Attestations Medical Necessity Statement*: Greater than 2 midnight stay for management of pneumonia Coding Level of Care Code Acute Distribution Technician for [facility] Fw Diagnoses Pneumonia J18.9 Influenza A J10.1 Chronic kidney disease N18.9 Iron deficiency anemia D50.9 Acute exacerbation of CHF (congestive heart failure) I50.9 Bilateral lower extremity edema R60.0 Hyperlipemia E78.5 History of CVA (cerebrovascular accident) Z86.73 Hypertension I10 Diarrhea R19.7
[2022-04-06] MEDS: cefTRIAXone 2,000 MG in sodium chloride 0.9% (plus) 50 ML 100 MG IV (20:25)
[2022-04-06 20:57] LABS: Lactic Sepsis W/Reflex 1.3 mmol/L (0.5-2.2)
[2022-04-06] MEDS: ondansetron 2 mg/ML SDV 2 mL 4 MG IVP (21:08)
[2022-04-06] MEDS: azithromycin 500 MG in sodium chloride 0.9% 250 ML 250 MG IV (21:10)
[2022-04-06 21:35] LABS: Alanine Aminotransferase < 5 U/L (0-33); Albumin Level 3.5 g/dL (3.5-5.2); Alkaline Phosphatase 99 U/L (35-105); Anion Gap 18.8 (5-19); Aspartate Amino Transferase 17 U/L (0-32); Blood Urea Nitrogen 39 mg/dL (8-23); Calcium 7.4 mg/dL (8.5-10.5); Carbon Dioxide 23 mmol/L (22-29); Chloride 99 mmol/L (98-107); Globulin 3.9 g/dL (1.3-4.6); Glucose 146 mg/dL (65-115); Osmolality Calculated 298 mOsm/kg (285-295); Sodium 138 mmol/L (136-145); Total Bilirubin 0.5 mg/dL (0.15-1.2); Total Protein 7.4 g/dL (6.6-8.7)
[2022-04-06] MEDS: heparin 5,000 unit/mL INJ 1 mL 5000 UNIT SUBCUT (21:39)
[2022-04-06] MEDS: oxyCODONE-APAP 5-325 mg Tablet 1 TAB PO (21:39)
[2022-04-06 21:43] LABS: Potassium 2.8 mmol/L (3.5-5.1)
[2022-04-06 21:47] LABS: NT Pro B Type Natriuretic Pept 11385 pg/mL (0-450); Thyroid Stimulating Hormone 1.31 uIU/mL (0.27-4.20)
[2022-04-06 23:21] LABS: Glucose Point of Care 138 mg/dL (70-110)
[2022-04-06] MEDS: carbidopa-levodopa 25-100mg Tablet 2 EACH PO (23:48)
[2022-04-06] MEDS: clopidogrel 75 mg Tablet PO (23:48)
[2022-04-06] MEDS: hyDRALAzine 25 mg Tablet 12.5 MG PO (23:48)
[2022-04-06] MEDS: mirtazapine 30 mg Tablet PO (23:49)
[2022-04-06] MEDS: vancomycin 1,500 MG/300 ML PIGGYBACK 200 MG IV (23:49)
[2022-04-07] VITALS (15 sets, daily range): BP systolic 133–156; BP diastolic 58–81; PULSE 60–100; RESP 16–22; TEMP 36.7–36.9; O2SAT 92–99
[2022-04-07] MEDS: potassium chloride ER 20 mEq Tablet PO (00:53)
[2022-04-07] MEDS: FUROsemide 10 mg/mL SDV 4mL 40 MG IVP ×2 (00:53→13:17)
[2022-04-07] MEDS: piperacillin-tazobactam 3.375 GM in sodium chloride 0.9% (plus) 50 ML IV ×2 (01:49→13:17)
[2022-04-07 02:19] LABS: Estmated Average Glucose 134; Hemoglobin A1C 6.3 % (4.0-6.0)
[2022-04-07 03:24] LABS: Basophils # 0.1 10^3/uL (0.0-0.1); Basophils % 0.3 %; Hematocrit 28.7 % (37.0-47.0); Hemoglobin 8.9 g/dL (11.5-15.3); Lymphocytes # 0.7 10^3/uL (0.8-4.8); Lymphocytes % 3.6 %; Mean Corpuscular Hemoglobin 31.4 pg (28.0-34.0); Mean Corpuscular Volume 101.4 fl (81-99); Mean Platelet Volume 10.6 fL (7.4-10.4); Monocytes # 0.9 10^3/uL (0.2-0.9); Monocytes % 4.7 %; Neutrophils # 17.86 10^3/uL (1.8-7.7); Neutrophils % 89.6 %; Nucleated Red Blood Cells % 0 %; Platelet Count 173 10^3/cmm (130-400); Red Blood Count 2.83 10^6/uL (4.1-5.3); Red Cell Distribution Width 16.2 % (12.1-15.1); White Blood Count 19.9 10^3/uL (4.0-10.0)
[2022-04-07 03:45] LABS: Blood Urea Nitrogen 43 mg/dL (8-23); Calcium 7.3 mg/dL (8.5-10.5); Carbon Dioxide 24 mmol/L (22-29); Chloride 101 mmol/L (98-107); Glucose 152 mg/dL (65-115); Iron 26 ug/dL (37-145); Magnesium 1.5 mg/dL (1.7-2.3); Osmolality Calculated 306 mOsm/kg (285-295); Percent Saturation 19.4 % (20-50); Sodium 141 mmol/L (136-145); Total Iron Binding Capacity 134 mcg/dl; Unsaturated Iron Binding 108 ug/dL (112-347)
[2022-04-07 03:50] LABS: Procalcitonin 4.99 ng/mL (0-0.5)
[2022-04-07] MEDS: thyroid 60 mg Tablet 45 MG PO (06:12)
[2022-04-07] MEDS: folic acid 1 mg Tablet PO (06:12)
[2022-04-07 06:34] LABS: Glucose Point of Care 180 mg/dL (70-110)
--- NOTE | 2022-04-07 07:43 | PC.PHAR ---
pt is from [facility] [phone]-danette from [facility] will fax med list
[2022-04-07] MEDS: insulin glargine 100 units/1 mL 40 UNIT SUBCUT (07:58)
--- NOTE | 2022-04-07 08:00 | XR_ITS ---
WS: [id number] Portable AP upright chest, 04/07/2022 Clinical Data: follow up infiltrate Comparison: Portable chest, 04/06/2022 Findings: The right basilar opacity has not changed. The heart remains enlarged. No pneumothorax is s een. The aortic arch and descending thoracic aorta show calcification and tortuosity. There is a dial ysis catheter which ends in the superior vena cava. There are epidural stimulator leads over the mid thoracic vertebra. XR/XR chest 1V portable [id number] Impression: 1. No change in right basilar opacity which may represent acute pneumonia. 2. Cardiomegaly and atherosclerosis.
--- NOTE | 2022-04-07 08:03 | PC.NURSE ---
Shmuel late due to pharmacy. Had to call for it.
[2022-04-07] MEDS: hyDRALAzine 25 mg Tablet 12.5 MG PO (08:41)
[2022-04-07] MEDS: carbidopa-levodopa 25-100mg Tablet 2 EACH PO ×3 (08:42→21:03)
[2022-04-07] MEDS: ipratropium-albuterol 3 mL Neb INHALATION ×4 (08:42→20:12)
[2022-04-07] MEDS: budesonide 0.5 mg/2 mL Neb INHALATION ×2 (08:42→20:12)
[2022-04-07] MEDS: amlodipine 5 mg Tablet PO (08:42)
[2022-04-07] MEDS: insulin lispro 100 unit/1 mL SUBCUT ×4 (08:43→21:29)
[2022-04-07] MEDS: ferrous sulfate EC 325 mg Tablet PO (08:43)
[2022-04-07] MEDS: metoprolol tartrate 50 mg Tablet 100 MG PO ×2 (08:43→17:49)
[2022-04-07] MEDS: cholecalciferol (vitamin D3) 5,000 unit Tablet 5000 UNIT PO (08:43)
[2022-04-07] MEDS: heparin 5,000 unit/mL INJ 1 mL 5000 UNIT SUBCUT ×2 (08:43→21:03)
--- NOTE | 2022-04-07 10:04 | PC.NURSE ---
notified Dr. Yoon of non formulary medications. [facility] calcium carb 500 mg and ask to change the order.
--- NOTE | 2022-04-07 11:19 | PC.CHAP ---
Pastoral Care Encounter/Spiritual Assessment Type of Contact [] Declined estate and trust tax principal visit [] Patient/Family/Request visit [] Outpatient visit [] Follow-up visit [] Physician referral [] Code/Alert [x] Routine visit [] Staff referral [] Actively dying [] Patient sleeping [] Family support [] [] Out of room [] Palliative care [] [] Receiving care in room [] Pre-surgical visit [] Trauma [] Long length of stay [] ICU visit [] Other: Relational/Emotional Strength [] Patient feels connected with others/family/visitors/staff [] Distress [] Loneliness/isolation [] Abandonment Spirituality of Patient [x] Person of Eve [] Attends Adventist of their Eve [x] Believes in Prayer [] Reads Bible or Cheondoism materials [] There are Spiritual issues to be addressed Columnist/Commentator Interventions [x] Prayer [] Active listening [] Non-anxious presence [] Spiritual/emotional support [] Crisis/trauma care [] Spiritual counseling [] Bereavement support [] Provided bereavement packet [] Provided Bible/devotional materials [] Provided toy/stuffed animal, coloring book to patient or family member [] Provided Communion [] Anointing/[place] [] Salvation [x] Completed spiritual assessment [] Other: Impact on Illness or Injury [] Angry [] Fearful [] Anxious [] Often cries [] Exhaustion [] Unable to work [] Unable to attend restoration [] Unable to walk/stand [] Unable to read [] Unable to drive [] Unable to eat/drink [] Unable to sleep [] Unable to be with family [] Patient intubated [] Other: Summary Time spent with patient 5 min
[2022-04-07 11:39] LABS: Glucose Point of Care 147 mg/dL (70-110)
[2022-04-07] MEDS: calcium carbonate 500 mg Chew Tablet PO (11:43)
--- NOTE | 2022-04-07 12:47 | P.CONIM_ITS ---
Providers/Reason For Consult Consulting Physician/Specialty*: Julia Eric DO, telenephrology Reason for Consult*: ESRD Requesting Physician: Prince Yoon Attending Physician: Prince Yoon Primary Care Provider: MILAGRO Kent History of Present Illness History of Present Illness Meghna Chaudhari is a 77 year old female sent to ER from dialysis yesterday. Discontinued dialysis 20 early. CC productive cough and shortness of breath. Reports being ill for at least 1 weeks. Severe diarrhea for several days. was too ill to go to dialysis on Sunday. HD td 4h Had LUE AVF placed two months ago. Using right IJ PC for HD Review of Systems Const: Reports: fatigue Resp: Reports: dyspnea and productive cough GI: Reports: diarrhea Medications/Allergies Home Medications Medication Instructions Recorded Confirmed Last Taken Type acetaminophen 500 mg tablet 1,000 mg PO Q6H PRN Pain 04/07/22 04/07/22 Unknown History albuterol sulfate 2.5 mg/3 mL 2.5 mg inhalation Q6H PRN 04/07/22 04/07/22 Unknown History (0.083 %) solution for nebulization Shortness Of Breath albuterol sulfate 90 mcg/actuation 2 puff inhalation Q6H PRN Wheezing 04/07/22 04/07/22 Unknown History aerosol inhaler (ProAir HFA) amino acids-protein hydrolysate 15 See Rx Instructions .Route .COMPLEX 04/07/22 04/07/22 Unknown History gram-101 kcal/30 mL oral liquid apixaban 5 mg tablet (Eliquis) 5 mg PO BID 04/07/22 04/07/22 Unknown History benzonatate 100 mg capsule 100 mg PO Q8H PRN Cough 04/07/22 04/07/22 Unknown History bimatoprost 0.01 % eye drops 1 drp ophthalmic (eye) BEDTIME 04/07/22 04/07/22 Unknown History ([place]) budesonide 0.5 mg/2 mL suspension 0.5 mg inhalation Q12H 04/07/22 04/07/22 Unknown History for nebulization calcium alginate 2 X 2 bandage 04/07/22 04/07/22 Unknown History carbidopa 25 mg-levodopa 100 mg 2 tab PO TID 04/07/22 04/07/22 Unknown History tablet cholecalciferol (vitamin D3) 50 6,000 unit PO DAILY 04/07/22 04/07/22 Unknown History mcg (2,000 unit) capsule (Vitamin D3) clonidine HCl 0.3 mg tablet 0.3 mg PO Q8H PRN systolic bp >160 04/07/22 04/07/22 Unknown History clopidogrel 75 mg tablet (Plavix) 75 mg PO QPM 04/07/22 04/07/22 Unknown History cyclobenzaprine 5 mg tablet 5 mg PO Q8H PRN Muscle Spasm 04/07/22 04/07/22 Unknown History diphenhydramine HCl 25 mg capsule 25 mg PO BEDTIME PRN Itching 04/07/22 04/07/22 Unknown History (Benadryl) fluticasone propionate 115 2 puff inhalation BID 04/07/22 04/07/22 Unknown History mcg-salmeterol 21 mcg/actuation HFA inhaler (Advair HFA) furosemide 40 mg tablet (Lasix) 40 mg PO BID 04/07/22 04/07/22 Unknown History gabapentin 100 mg capsule 100 mg PO TID 04/07/22 04/07/22 Unknown History hydroxyzine HCl 25 mg tablet 25 mg PO Q8H PRN Itching 04/07/22 04/07/22 Unknown History hydroxyzine pamoate 25 mg capsule 25 mg PO QPM 04/07/22 04/07/22 Unknown History insulin aspart U-100 100 unit/mL See Rx Instructions .Route .COMPLEX 04/07/22 04/07/22 Unknown History (3 mL) subcutaneous pen (Novolog Flexpen U-100 Insulin aspart) insulin glargine 100 unit/mL (3 40 unit SUBCUT DAILY 04/07/22 04/07/22 Unknown History mL) subcutaneous pen (Lantus Solostar U-100 Insulin) ipratropium 0.5 mg-albuterol 3 mg 3 ml inhalation Q6H PRN Cough 04/07/22 04/07/22 Unknown History (2.5 mg base)/3 mL nebulization soln loperamide 2 mg tablet (Imodium 2 mg PO Q6H PRN Loose Stool 04/07/22 04/07/22 Unknown History A-D) losartan 50 mg tablet 50 mg PO BEDTIME 04/07/22 04/07/22 Unknown History menthol 4 % topical gel (Biofreeze See Rx Instructions .Route .COMPLEX 04/07/22 04/07/22 Unknown History (menthol)) metolazone 5 mg tablet 5 mg PO QAM 04/07/22 04/07/22 Unknown History metoprolol tartrate 100 mg tablet 100 mg PO BID 04/07/22 04/07/22 Unknown History mirtazapine 30 mg tablet 30 mg PO BEDTIME 04/07/22 04/07/22 Unknown History neomycin-bacitracn Zn-polymyx 3.5 See Rx Instructions .Route .COMPLEX 04/07/22 04/07/22 Unknown History mg-400 unit-5,000 unit/gram top oint (Neosporin (pos-[id number])) ondansetron HCl 4 mg tablet 4 mg PO Q8H PRN Nausea And Vomiting 04/07/22 04/07/22 Unknown History oxycodone 7.5 mg tablet,oral ONLY 7.5 mg PO Q6H PRN Pain 04/07/22 04/07/22 Unknown History (not for feeding tubes) promethazine-DM 6.25 mg-15 mg/5 mL 5 ml PO Q4H PRN Cough 04/07/22 04/07/22 Unknown History oral syrup ropinirole 0.5 mg tablet 0.5 mg PO QPM 04/07/22 04/07/22 Unknown History sertraline 50 mg tablet 50 mg PO DAILY 04/07/22 04/07/22 Unknown History simvastatin 40 mg tablet 40 mg PO BEDTIME 04/07/22 04/07/22 Unknown History solifenacin 5 mg tablet 5 mg PO QAM 04/07/22 04/07/22 Unknown History thyroid (pork) 90 mg tablet 90 mg PO DAILY 04/07/22 04/07/22 Unknown History ([place] Thyroid) vitamin B complex and vitamin C 1 cap PO QPM 04/07/22 04/07/22 Unknown History no.20-folic acid 1 mg capsule (Renal Caps) Allergies Allergy/AdvReac Type Severity Reaction Status Date / Time sulfamethoxazole Allergy Rash Verified 12/26/21 16:26 [From Septra] trimethoprim [From Septra] Allergy Rash Verified 12/26/21 16:26 morphine AdvReac Personality Verified 12/26/21 16:26 Change pregabalin [From Lyrica] AdvReac Loopy/Unste Verified 12/26/21 16:26 anoop Current Medications Generic Name Dose Route Start Last Admin Trade Name Mata PRN Reason Stop Dose Admin Albuterol/Ipratropium 3 ml 04/07/22 08:00 04/07/22 11:07 Ipratropium-Albuterol 3 Ml Neb INHALATION 3 ml QID.RESPIRATORY BILLIE Administration Amlodipine Besylate 5 mg 04/07/22 09:00 04/07/22 08:42 Amlodipine 5 Mg Tablet PO 5 mg DAILY BILLIE Administration Budesonide 0.5 mg 04/07/22 08:00 04/07/22 08:42 Budesonide 0.5 Mg/2 Ml Neb INHALATION 0.5 mg BID.RESPIRATORY BILLIE Administration Calcium Carbonate 500 mg 04/07/22 10:30 04/07/22 11:43 Calcium Carbonate 500 Mg Chew Tablet PO 500 mg DAILY BILLIE Administration Carbidopa/Levodopa 2 each 04/06/22 22:24 04/07/22 08:42 Carbidopa-Levodopa 25-100mg Tablet PO 2 each TID BILLIE Administration Clopidogrel Bisulfate 75 mg 04/06/22 22:24 04/06/22 23:48 Clopidogrel 75 Mg Tablet PO 75 mg BEDTIME BILLIE Administration Ferrous Sulfate 325 mg 04/07/22 09:00 04/07/22 08:43 Ferrous Sulfate Ec 325 Mg Tablet PO 325 mg BID BILLIE Administration Folic Acid 1 mg 04/07/22 06:00 04/07/22 06:12 Folic Acid 1 Mg Tablet PO 1 mg QAM BILLIE Administration Furosemide 40 mg 04/07/22 00:45 04/07/22 00:53 Furosemide 10 Mg/Ml Sdv 4ml IVP 40 mg Q12H BILLIE Administration Heparin Sodium (Porcine) 5,000 unit 04/06/22 20:30 04/07/22 08:43 Heparin 5,000 Unit/Ml Inj 1 Ml SUBCUT 5,000 unit Q12H BILLIE Administration Hydralazine HCl 12.5 mg 04/06/22 22:24 04/07/22 08:41 Hydralazine 25 Mg Tablet PO 12.5 mg TID BILLIE Administration Piperacillin Sod/Tazobactam 50 mls @ 12.5 mls/hr 04/07/22 01:00 04/07/22 06:03 Sod 3.375 gm/ Sodium Chloride IV Infused Q12H BILLIE Infusion Protocol Vancomycin/PEG/NADA/Lysine/Water 1,500 mg in 300 mls @ 200 mls/hr 04/06/22 23:45 04/07/22 01:41 Vancocin IV Infused Q36H BILLIE Infusion Insulin Glargine 40 unit 04/07/22 06:00 04/07/22 07:58 Insulin Glargine 100 Units/1 Ml SUBCUT 40 unit QAM BILLIE Administration Insulin Human Lispro 0 unit 04/06/22 21:00 04/07/22 08:43 Insulin Lispro 100 Unit/1 Ml SUBCUT 4 unit WM&BEDTIME BILLIE Administration Protocol Methylprednisolone Sodium Succinate 40 mg 04/06/22 23:15 04/07/22 11:43 Methylprednisolone Sod Succ 40 Mg/Ml Inj IVP 40 mg Q12H BILLIE Administration Metoprolol Tartrate 100 mg 04/07/22 09:00 04/07/22 08:43 Metoprolol Tartrate 50 Mg Tablet PO 100 mg BID BILLIE Administration Mirtazapine 30 mg 04/06/22 22:24 04/06/22 23:49 Mirtazapine 30 Mg Tablet PO 30 mg BEDTIME BILLIE Administration Non-Formulary Medication 5 mg 04/07/22 09:00 04/07/22 10:03 Solifenacin [Vesicare] PO Not Given DAILY BILLIE Ondansetron HCl 4 mg 04/06/22 20:28 04/06/22 21:08 Ondansetron 2 Mg/Ml Sdv 2 Ml IVP 4 mg Q8H PRN Administration vomiting, or N/V if npo Thyroid 45 mg 04/07/22 06:00 04/07/22 06:12 Thyroid 60 Mg Tablet PO 45 mg QAM BILLIE Administration Vitamin D 5,000 unit 04/07/22 09:00 04/07/22 08:43 Cholecalciferol (Vitamin D3) 5,000 Unit Tablet PO 5,000 unit DAILY BILLIE Administration PFSH Acute PFSH: Medical History Anemia in chronic illness Chronic insomnia Chronic renal insufficiency COPD (chronic obstructive pulmonary disease) Diabetes mellitus type 2, insulin dependent Diabetic neuropathy Fibromyalgia History of CVA (cerebrovascular accident) Hyperlipemia Hypertension Hypothyroidism Lumbar disc disease with radiculopathy Neuropathy Parkinson disease Post laminectomy syndrome Sciatica associated with disorder of lumbosacral spine Stage 4 chronic renal impairment associated with type 2 diabetes mellitus Uncontrolled insulin dependent diabetes mellitus Vitamin D deficiency Surgical History Hx of cholecystectomy Hx of foot surgery Hx of hysterectomy Family History Father CAD (coronary artery disease) Mother CAD (coronary artery disease) Diabetes Grandfather CAD (coronary artery disease) Diabetes Social History Smoking and tobacco status: former smoker Second hand smoke exposure: No Alcohol intake: current Alcohol intake frequency: holidays/special occasions only Alcohol type: hard liquor History of recent travel: No Vitals/I&O/Wt Last Vital Signs Temp 98.4 F 04/07/22 08:00 Pulse 69 04/07/22 11:51 Resp 16 04/07/22 11:51 BP 133/58 04/07/22 11:51 Pulse Ox 94 04/07/22 11:51 O2 Del Method 04/07/22 11:51 O2 Flow Rate 2 04/07/22 11:07 04/06/22 04/07/22 04/07/22 22:59 06:59 14:59 Intake Total 300 / 300 830 / 1130 240 / 240 Balance 300 / 300 830 / 1130 240 / 240 Weight last 48 hrs Weight 117.282 kg Weight 136.078 kg Physical Exam Const: COMMON NORMALS: no acute distress and alert Neck/C-Spine: OTHER: tunneled IJ HD catheter Extremity: NARRATIVE EXTREMITY EXAM: + edema LUE AVF Neuro: SENSORIUM/ORIENTATION: Yes alert Data 04/07/22 03:10 04/07/22 03:10 Other Labs: alb 3.5, Ca 7.5, phos 5, Mg 1.5, TSAT 20% Micro: Microbiology 04/06/22 20:02 Blood Culture - Preliminary Blood SPECIMEN COLLECTED 04/06/22 19:05 Blood Culture - Preliminary Blood SPECIMEN COLLECTED CXR: Radiologist's impression: 1. No change in right basilar opacity which may represent acute pneumonia. 2. Cardiomegaly and atherosclerosis. Other data: written and verbal consent obtained for telemedicine visit A&P Assessment and plan (1) ESRD (end stage renal disease): Plan 1. ESRD, HD T/Th/Sat 2. Influenza A, pneumonia. BC drawn 3. Diarrhea 4. Anemia 5. Hypokalemia, hypomagnesemia Recommend: HD tomorrow. 4h, 1L UF, 3K bath via PC. NO IVs, BPs, blood draws left arm. Epogen at dialysis, Replace KcL and Mg. F/U culture results, check vanco levels. Vanco should be given at end or after HD 3 x weekly. adjust all meds for eGFR < 15 Consult Attestations Medical Necessity Statement: see above Time Spent in Patient Care: 16 - 35 minutes Coding Level of Care Code Acute Geographic Information Systems Engineer for [facility] Fwd Diagnoses ESRD (end stage renal disease) N18.6
[2022-04-07] MEDS: magnesium sulfate premix 2 GM/50 ML PIGGYBACK IV (14:43)
[2022-04-07 17:03] LABS: Glucose Point of Care 179 mg/dL (70-110)
--- NOTE | 2022-04-07 18:39 | PC.NURSE ---
Notified Dr. 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
--- NOTE | 2022-04-07 19:25 | P.PN_ITS ---
Subjective Subjective: She is feeling slightly better. States now at least I can breathe a little compared to when I came in . Having diarrhea. Vitals/I&O/Wt Last Vital Signs Temp 980 F H 04/07/22 16:00 Pulse 73 04/07/22 16:00 Resp 16 04/07/22 16:00 BP 144/68 04/07/22 16:00 Pulse Ox 95 04/07/22 16:00 O2 Del Method 04/07/22 16:00 O2 Flow Rate 2 04/07/22 15:00 04/07/22 04/07/22 04/07/22 06:59 14:59 22:59 Intake Total 830 / 1130 360 / 360 Balance 830 / 1130 360 / 360 Weight last 48 hrs Weight 117.282 kg Weight 136.078 kg Physical Exam Const: COMMON NORMALS: patient oriented x3 and alert GENERAL APPEARANCE: cooperative ORIENTATION/CONSCIOUSNESS: Yes awake HENMT: COMMON NORMALS: oropharynx normal Neck/C-Spine: COMMON NORMALS: no JVD Resp: COMMON NORMALS: normal respiratory effort AUSCULTATION: wheezes and diminished lung sounds Cardio: COMMON NORMALS: no JVD, regular rhythm, S1 normal heart sound present, S2 normal heart sound present and No murmurs present (Cardio) RHYTHM: regular rhythm HEART SOUNDS: S1 normal heart sound present and S2 normal heart sound present GI: COMMON NORMALS: Normal to inspection, nondistended, normoactive bowel sounds present, Soft to palpation and non-tender PALPATION: Yes Soft to palpation Extremity: COMMON NORMALS: no joint enlargement and no pedal edema OTHER: Right arm fistula Neuro: COMMON NORMALS: patient oriented x3 and moves all extremities SENSORIUM/ORIENTATION: Yes alert Skin: COMMON NORMALS: no rashes or lesions noted GENERAL SKIN EXAM: no rashes or lesions noted Data 04/07/22 03:10 04/07/22 03:10 Micro: Microbiology 04/06/22 19:05 Blood Culture - Preliminary Blood NEGATIVE TO DATE 04/07/22 11:00 MRSA Culture - Final Nose 04/07/22 11:05 Enteric Pathogens (PCR) - Final Stool Routine Collection Parasite Antigen Panel - Final C.difficile Toxin B Gene (PCR) - Final 04/06/22 20:02 Blood Culture - Preliminary Blood SPECIMEN COLLECTED A&P Assessment and plan (1) Pneumonia: Continue Zosyn, vancomycin. With bronchospasm, increase Solu-Medrol to every 6 hours. Not normally on oxygen. Continue oxygen supplement. Wean off as tolerating (2) Influenza A: Tamiflu (3) Chronic kidney disease: ESRD on HD. She tells me MWF, but appears it is actually TTS. Reviewed nephrology consultation. (4) Iron deficiency anemia: (5) Acute exacerbation of CHF (congestive heart failure): (6) Bilateral lower extremity edema: (7) Hyperlipemia: (8) History of CVA (cerebrovascular accident): (9) Hypertension: (10) Diarrhea: Stool studies including C. difficile pending negative. Plan COPD exacerbation: Increase Solu-Medrol dose to 40 mg every 6 hours. Antibiotics as above. Neb treatments. #Hypokalemia, potassium 2.8 #Anemia of chronic disease #Acute on chronic diastolic congestive heart failure #Insulin-dependent diabetes mellitus #Hypothyroidism #Parkinson's disease Charcot foot BL Pressure ulcer foot L foot: Wound care Full code DVT prophylaxis: Heparin Attestations 2 Medical Necessity Statement*: Continue admission for assessment of management of influenza pneumonia, community-acquired pneumonia, COPD exacerbation, with new hypoxia. Coding Level of Care Code Acute Barrel Filler for [facility] Fwd Diagnoses Pneumonia J18.9 Influenza A J10.1 Chronic kidney disease N18.9 Iron deficiency anemia D50.9 Acute exacerbation of CHF (congestive heart failure) I50.9 Bilateral lower extremity edema R60.0 Hyperlipemia E78.5 History of CVA (cerebrovascular accident) Z86.73 Hypertension I10 Diarrhea R19.7
[2022-04-07] MEDS: mirtazapine 30 mg Tablet PO (21:03)
[2022-04-07] MEDS: ropinirole 0.25 mg Tablet 0.5 MG PO (21:03)
[2022-04-07] MEDS: clopidogrel 75 mg Tablet PO (21:03)
[2022-04-07 21:21] LABS: Glucose Point of Care 201 mg/dL (70-110)
[2022-04-08] VITALS (9 sets, daily range): BP systolic 135–188; BP diastolic 67–85; PULSE 90–108; RESP 17–24; TEMP 36.6–36.9; O2SAT 93–95
[2022-04-08] MEDS: FUROsemide 10 mg/mL SDV 4mL 40 MG IVP ×2 (00:30→23:37)
[2022-04-08] MEDS: piperacillin-tazobactam 3.375 GM in sodium chloride 0.9% (plus) 50 ML IV ×2 (01:29→20:26)
[2022-04-08] MEDS: acetaminophen 325 mg Tablet 650 MG PO ×3 (02:41→17:58)
[2022-04-08 06:15] LABS: Basophils % 0.2 %; Hematocrit 29.4 % (37.0-47.0); Hemoglobin 9.1 g/dL (11.5-15.3); Lymphocytes # 0.6 10^3/uL (0.8-4.8); Lymphocytes % 3.6 %; Mean Corpuscular Hemoglobin 31.2 pg (28.0-34.0); Mean Corpuscular Volume 100.7 fl (81-99); Mean Platelet Volume 10.7 fL (7.4-10.4); Monocytes # 0.3 10^3/uL (0.2-0.9); Monocytes % 1.8 %; Neutrophils # 14.32 10^3/uL (1.8-7.7); Neutrophils % 93.1 %; Nucleated Red Blood Cells % 0 %; Platelet Count 212 10^3/cmm (130-400); Red Blood Count 2.92 10^6/uL (4.1-5.3); Red Cell Distribution Width 15.9 % (12.1-15.1); White Blood Count 15.4 10^3/uL (4.0-10.0)
[2022-04-08] MEDS: thyroid 60 mg Tablet 45 MG PO (06:28)
[2022-04-08] MEDS: folic acid 1 mg Tablet PO (06:28)
--- NOTE | 2022-04-08 06:41 | PM.PN ---
Subjective Subjective: feeling better today Vitals/I&O/Wt Last Vital Signs Temp 97.8 F 04/08/22 04:00 Pulse 106 H 04/08/22 04:00 Resp 24 H 04/08/22 04:00 BP 137/74 04/08/22 04:00 Pulse Ox 95 04/08/22 04:00 O2 Del Method 04/07/22 20:13 O2 Flow Rate 2 04/07/22 20:13 04/07/22 04/07/22 04/08/22 14:59 22:59 06:59 Intake Total 360 / 360 100 / 460 500 / 960 Output Total 200 / 200 600 / 800 Balance 360 / 360 -100 / 260 -100 / 160 Weight last 48 hrs Weight 118.569 kg Weight 117.282 kg Weight 136.078 kg Physical Exam Const: COMMON NORMALS: no acute distress and alert Extremity: GENERAL: Yes edema Neuro: SENSORIUM/ORIENTATION: Yes alert Data 04/08/22 06:05 04/07/22 03:10 Other Labs: K 3.1 today Micro: Microbiology 04/06/22 20:02 Blood Culture - Preliminary Blood NEGATIVE TO DATE 04/07/22 Unknown Gram Stain - Final Sputum - Expectorated Sputum 04/06/22 19:05 Blood Culture - Preliminary Blood NEGATIVE TO DATE 04/07/22 11:00 MRSA Culture - Final Nose 04/07/22 11:05 Enteric Pathogens (PCR) - Final Stool Routine Collection Parasite Antigen Panel - Final C.difficile Toxin B Gene (PCR) - Final A&P Assessment and plan (1) ESRD (end stage renal disease): seen via telemedicine with assistance of RN at bedside Plan 1. ESRD, HD T//Sat 2. Influenza A, pneumonia. COPD exacerbation. BC neg 3. Diarrhea 4. Anemia 5. Hypokalemia, hypomagnesemia Recommend: HD today. 4h, 1L UF, 3K bath via PC. NO IVs, BPs, blood draws left arm. Epogen at dialysis, Replace KcL and Mg. check vanco levels. Vanco should be given at end or after HD 3 x weekly. adjust all meds for eGFR < 15 Attestations Medical Necessity Statement*: see above Time Spent in Patient Care: 16 - 35 minutes Coding Level of Care Code Acute Home Health Caregiver for g Fwd Diagnoses ESRD (end stage renal disease) N18.6
[2022-04-08 07:10] LABS: Alanine Aminotransferase < 5 U/L (0-33); Albumin Level 3.2 g/dL (3.5-5.2); Alkaline Phosphatase 91 U/L (35-105); Anion Gap 25.1 (5-19); Aspartate Amino Transferase 11 U/L (0-32); Blood Urea Nitrogen 71 mg/dL (8-23); Carbon Dioxide 21 mmol/L (22-29); Chloride 100 mmol/L (98-107); Glucose 203 mg/dL (65-115); Osmolality Calculated 323 mOsm/kg (285-295); Potassium 3.1 mmol/L (3.5-5.1); Sodium 143 mmol/L (136-145); Total Bilirubin 0.2 mg/dL (0.15-1.2); Total Protein 7.2 g/dL (6.6-8.7)
[2022-04-08 07:42] LABS: Hepatitis B Surface Antigen Non-Reactive (Nonreactive); Hepatitis C Virus Antibody Non-Reactive (Nonreactive)
[2022-04-08 07:47] LABS: Hepatitis B Surface AB > 1000.0 (11.5-1000)
[2022-04-08] MEDS: budesonide 0.5 mg/2 mL Neb INHALATION (08:00)
[2022-04-08] MEDS: ipratropium-albuterol 3 mL Neb INHALATION ×2 (08:00→15:52)
[2022-04-08] MEDS: insulin lispro 100 unit/1 mL SUBCUT ×3 (08:54→21:29)
[2022-04-08] MEDS: heparin 5,000 unit/mL INJ 1 mL 5000 UNIT SUBCUT ×2 (08:55→20:27)
[2022-04-08] MEDS: carbidopa-levodopa 25-100mg Tablet 2 EACH PO ×3 (08:55→20:27)
[2022-04-08] MEDS: amlodipine 5 mg Tablet PO (08:55)
[2022-04-08] MEDS: calcium carbonate 500 mg Chew Tablet PO (08:55)
[2022-04-08] MEDS: metoprolol tartrate 50 mg Tablet 100 MG PO ×2 (08:56→17:58)
[2022-04-08 09:05] LABS: Glucose Point of Care 216 mg/dL (70-110)
[2022-04-08] MEDS: cholecalciferol (vitamin D3) 5,000 unit Tablet 5000 UNIT PO (09:09)
[2022-04-08] MEDS: insulin glargine 100 units/1 mL 40 UNIT SUBCUT (09:15)
[2022-04-08] MEDS: heparin, porcine 1,000 unit/mL INJ 10 mL 1000 UNIT HE (11:09)
[2022-04-08] MEDS: epoetin alfa (ESRD) 8,000 UNIT in SYRINGE 1 EACH 0.4 UNIT IVP (11:11)
[2022-04-08 11:21] LABS: Glucose Point of Care 265 mg/dL (70-110)
--- NOTE | 2022-04-08 13:07 | PC.NURSE ---
Patient left for dialysis at 1110 this am
[2022-04-08 16:42] LABS: Glucose Point of Care 155 mg/dL (70-110)
[2022-04-08] MEDS: vancomycin 1,500 MG/300 ML PIGGYBACK 200 MG IV (16:51)
[2022-04-08] MEDS: potassium chloride ER 20 mEq Tablet 40 MEQ PO ×2 (16:56→16:59)
--- NOTE | 2022-04-08 17:24 | PC.HD ---
Pt has left upper arm fistula with good thrill / bruit, not yet ready for use. Pt developed a migraine near end of treatment with nausea, hypertension, pt says d/t being hot. Treatment ended and Dr Eric notified, pt returned to her room and primary nurse notified. Migraine a little better once pt in her room which was cooler.
--- NOTE | 2022-04-08 17:29 | P.DS_ITS ---
Discharge Providers Date of Admission: 04/06/22 20:15 Date of Discharge: April 08, 2022 Attending Provider at Admission: Amira Cuba MD Attending Provider at Discharge: Prince Yoon Primary Care Provider: MILAGRO Kent Diagnoses at Discharge Discharge Diagnosis (1) ESRD (end stage renal disease): Details from hospital stay: (1) Pneumonia: With bronchospasm (2) Influenza A (3) Chronic kidney disease: ESRD on HD.? She tells me MWF, but appears it is actually TTS.? Reviewed nephrology consultation. (4) Iron deficiency anemia: (5) Acute exacerbation of CHF (congestive heart failure): (6) Bilateral lower extremity edema: (7) Hyperlipemia: (8) History of CVA (cerebrovascular accident): (9) Hypertension: (10) Diarrhea: Stool studies including C. difficile pending negative. Plan COPD exacerbation #Hypokalemia, replaced #Anemia of chronic disease #Acute on chronic diastolic congestive heart failure #Insulin-dependent diabetes mellitus #Hypothyroidism #Parkinson's disease Charcot foot BL Pressure ulcer foot L foot: Wound care Status: Acute Reason for Visit Reason for Visit: resp distress Brief History: Meghna Chaudahri is a 77 year old female with past medical history of end-stage renal disease, dialysis Sunday, anemia of chronic disease, COPD, CHF, insulin-dependent diabetes mellitus, history of stroke, hyperlipidemia, hypertension, hypothyroidism, Parkinson's disease presented [facility] today for increasing cough productive of yellow and green sputum and difficulty breathing.? Symptoms have been worsening for the last 48 hours.? She was seen at an outpatient clinic and was diagnosed with influenza A but was negative for COVID.? Patient did miss her dialysis on Sunday but was able to go to dialysis today and had a 4-hour session and from there came to the ER.? She states that she has been having a lot of body aches and shortness of breath.? She is expectorating big globs of green sputum.? She says she is also been having diarrhea for the last 2 weeks and she is going to the bathroom more than 10 times in a day.? It is watery.? She also reports cramps in her legs.? He says 2 weeks ago she was placed on Levaquin 3 times a day for an infection of a sore on the bottom of her left foot.? She has a history of Charcot foot bilaterally.? Denies chest pain, vomiting, abdominal pain.? Denies dysuria, fever, palpitations.? Patient does take inhalers albuterol, Advair.? Patient is also on carbidopa levodopa.? Patient states that she does not want to be intubated long-term however initial trial of intubation is okay.? She may also be okay with CPR at this time.? Paperwork from assisted living facility states she is DNR/DNI.? However after discussion with patient she says trial of the above is okay.? Patient lives in an assisted living facility. ER course: Blood pressure 160/77, respiratory 20, pulse 85, temperature 99.4, saturating 93% on room air.? Patient was given a DuoNeb upon arrival and there was improvement in her shortness of breath however still had rhonchi present greater than left side.? Chest x-ray done medial right basilar opacity, potentially infiltrate/pneumonia.? WBC count 20,000, hemoglobin 9.6, potassium 2.8, gap 20.6, glucose 127, creatinine 3.0. Hospital Course Hospital Course On presentation quite dyspneic, with diminished air entry, severe wheezing bilaterally, with bronchospastic component pneumonia, COPD exacerbation. Continued on IV steroids with dose increased to 40 mg every 6 hours. Continued on empiric antibiotic coverage with Zosyn, vancomycin for pneumonia. MRSA PCR from nasal swab came back positive. Sputum culture pending. Tamiflu was requested for influenza a due to severe underlying comorbidities and presentation, but was not available. Continued on neb treatments, transiently required oxygen support. Also with lower extremity edema, for acute CHF received diuresis with IV Lasix and hemodialysis. Today she is feeling much better, air entry is significantly improved, no further wheezing. Subjectively she feels much better and would like to discharge home after dialysis. She is given prescription to complete course of antibiotic with cefdinir, doxycycline. Complete brief course of prednisone. Tamiflu. She also had diarrhea for which stool studies were sent, came back negative for C. difficile, Bacterial and parasite panels. Continue follow-up regarding above additional chronic problems. Physical Exam 2 Narrative: Undergoing dialysis. Const: COMMON NORMALS: patient oriented x3 and alert GENERAL APPEARANCE: cooperative ORIENTATION/CONSCIOUSNESS: Yes awake HENMT: COMMON NORMALS: oropharynx normal Neck/C-Spine: COMMON NORMALS: no JVD Resp: COMMON NORMALS: normal respiratory effort and clear to auscultation bilaterally AUSCULTATION: clear to auscultation bilaterally and no wheezes Cardio: COMMON NORMALS: no JVD, regular rhythm, S1 normal heart sound present, S2 normal heart sound present and No murmurs present (Cardio) RHYTHM: regular rhythm HEART SOUNDS: S1 normal heart sound present and S2 normal heart sound present GI: COMMON NORMALS: Normal to inspection, nondistended, normoactive bowel sounds present, Soft to palpation and non-tender PALPATION: Yes Soft to palpation Extremity: COMMON NORMALS: no joint enlargement and no pedal edema OTHER: Right arm fistula Neuro: COMMON NORMALS: patient oriented x3 and moves all extremities SENSORIUM/ORIENTATION: Yes alert Skin: COMMON NORMALS: no rashes or lesions noted GENERAL SKIN EXAM: no rashes or lesions noted Discharge Data Studies Completed and Pending Completed Studies During Hospitalization Category Date Time Status XR chest 1V portable [id number] Routine Exams 04/07/22 08:00 Completed XR chest 1V portable [id number] Stat Exams 04/06/22 17:55 Completed Pending at discharge Category Date Time Status Blood Culture Stat Lab 04/06/22 20:02 Results Complete Blood Count w/Auto AM LABS Lab 04/09/22 04:00 Ordered Complete Blood Count w/Auto AM LABS Lab 04/10/22 04:00 Ordered Comprehensive Metabolic Panel AM LABS Lab 04/09/22 04:00 Ordered Comprehensive Metabolic Panel AM LABS Lab 04/10/22 04:00 Ordered Sputum Culture and Gram Stain Stat Lab 04/07/22 Results Radiology Impressions Chest X-Ray 04/07/22 08:00 Impression: 1. No change in right basilar opacity which may represent acute pneumonia. 2. Cardiomegaly and atherosclerosis. Laboratory Results WBC 15.4 10^3/uL (4.0-10.0) H 04/08/22 06:05 RBC 2.92 10^6/uL (4.1-5.3) L 04/08/22 06:05 Hgb 9.1 g/dL (11.5-15.3) L 04/08/22 06:05 Hct 29.4 % (37.0-47.0) L 04/08/22 06:05 MCV 100.7 fl (81-99) H 04/08/22 06:05 MCH 31.2 pg (28.0-34.0) 04/08/22 06:05 MCHC 31.0 g/dL (30.0-36.0) 04/08/22 06:05 RDW 15.9 % (12.1-15.1) H 04/08/22 06:05 Plt Count 212 10^3/cmm (130-400) 04/08/22 06:05 MPV 10.7 fL (7.4-10.4) H 04/08/22 06:05 Neut % (Auto) 93.1 % 04/08/22 06:05 Lymph % (Auto) 3.6 % 04/08/22 06:05 [place] % (Auto) 1.8 % 04/08/22 06:05 Eos % (Auto) 0.0 % 04/08/22 06:05 Baso % (Auto) 0.2 % 04/08/22 06:05 Neut # (Auto) 14.32 10^3/uL (1.8-7.7) H 04/08/22 06:05 Lymph # (Auto) 0.6 10^3/uL (0.8-4.8) L 04/08/22 06:05 [place] # (Auto) 0.3 10^3/uL (0.2-0.9) 04/08/22 06:05 Eos # (Auto) 0.0 10^3/uL (0.0-0.8) 04/08/22 06:05 Baso # (Auto) 0.0 10^3/uL (0.0-0.1) 04/08/22 06:05 Nucleated RBC % (auto) 0 % 04/08/22 06:05 Nucleated RBCs # 0.0 /100WBC 04/08/22 06:05 Sodium 143 mmol/L (136-145) 04/08/22 06:05 Potassium 3.1 mmol/L (3.5-5.1) L 04/08/22 06:05 Chloride 100 mmol/L (98-107) 04/08/22 06:05 Carbon Dioxide 21 mmol/L (22-29) L 04/08/22 06:05 Anion Gap 25.1 (5-19) H 04/08/22 06:05 BUN 71 mg/dL (8-23) H 04/08/22 06:05 Creatinine 4.6 mg/dL (0.5-0.9) H 04/08/22 06:05 GFR Calculation Not Reportable 04/08/22 06:05 Glucose 203 mg/dL (65-115) H 04/08/22 06:05 POC Glucose 155 mg/dL (70-110) H 04/08/22 16:38 Estimat Average Glucose 134 04/06/22 19:05 Hemoglobin A1c 6.3 % (4.0-6.0) H 04/06/22 19:05 Calculated Osmolality 323 mOsm/kg (285-295) H 04/08/22 06:05 Lactic Acid 1.3 mmol/L (0.5-2.2) 04/06/22 19:05 Calcium 8.0 mg/dL (8.5-10.5) L 04/08/22 06:05 Phosphorus 5.0 mg/dL (2.5-4.5) H 04/07/22 03:10 Magnesium 1.5 mg/dL (1.7-2.3) L 04/07/22 03:10 Iron 26 ug/dL (37-145) L 04/07/22 03:10 TIBC 134 mcg/dl 04/07/22 03:10 % Saturation 19.4 % (20-50) L 04/07/22 03:10 Unsat Iron Binding 108 ug/dL (112-347) L 04/07/22 03:10 Total Bilirubin 0.2 mg/dL (0.15-1.2) 04/08/22 06:05 AST 11 U/L (0-32) 04/08/22 06:05 ALT < 5 U/L (0-33) 04/08/22 06:05 Alkaline Phosphatase 91 U/L (35-105) 04/08/22 06:05 NT-Pro-B Natriuret Pep 13198 pg/mL (0-450) H 04/06/22 21:08 Total Protein 7.2 g/dL (6.6-8.7) 04/08/22 06:05 Albumin 3.2 g/dL (3.5-5.2) L 04/08/22 06:05 Globulin 4.0 g/dL (1.3-4.6) 04/08/22 06:05 Procalcitonin 4.99 ng/mL (0-0.5) H 04/07/22 03:10 TSH 1.31 uIU/mL (0.27-4.20) 04/06/22 21:08 Hep Bs Antigen Non-reactive (Nonreactive) 04/08/22 06:05 Hep Bs Antibody > 1000.0 (11.5-1000) H 04/08/22 06:05 Hepatitis C Antibody Non-reactive (Nonreactive) 04/08/22 06:05 Vitals Last Vital Signs Temp 97.9 F 04/08/22 16:20 Pulse 97 04/08/22 16:20 Resp 18 04/08/22 16:20 BP 149/67 04/08/22 16:20 Pulse Ox 93 04/08/22 16:20 O2 Del Method 04/08/22 16:20 O2 Flow Rate 1 04/08/22 08:05 Discharge Plan Discharge Patient Disposition: Home Condition: Stable Prescriptions: New oseltamivir 30 mg capsule 30 mg PO DIALYSIS Qty: 1 0RF Rx Instructions: After dialysis on Sunday cefdinir 300 mg capsule See Rx Instructions .ROUTE .COMPLEX 6 Days Qty: 5 0RF Rx Instructions: Daily starting Sunday at that time he would normally finish dialysis, after dialysis on dialysis days. doxycycline hyclate 75 mg tablet 75 mg PO BID Qty: 12 0RF prednisone 20 mg tablet 40 mg PO DAILY 4 Days Qty: 8 0RF Continued losartan 50 mg Tablet 50 mg PO BEDTIME Lasix 40 mg Tablet 40 mg PO BID promethazine-DM 6.25-15 mg/5 mL Syrup 5 ml PO Q4H PRN (Reason: Cough) Neosporin (pth-fbn-rmegc) 3.5mg-400 unit- 5,000 unit/gram Ointment See Rx Instructions .ROUTE .COMPLEX Rx Instructions: apply to bottom of left foot topically one time a day -clean with ns apply ointment and bandage daily till healed ipratropium-albuterol 0.5 mg-3 mg(2.5 mg base)/3 mL Solution For Nebulization 3 ml INHALATION Q6H PRN (Reason: Cough) albuterol sulfate 2.5 mg /3 mL (0.083 %) solution for nebulization 2.5 mg inhalation Q6H PRN (Reason: Shortness Of Breath) metoprolol tartrate 100 mg Tablet 100 mg PO BID Zofran 4 mg Tablet 4 mg PO Q8H PRN (Reason: Nausea And Vomiting) clonidine HCl 0.3 mg Tablet 0.3 mg PO Q8H PRN (Reason: systolic bp >160) Imodium A-D 2 mg Tablet 2 mg PO Q6H PRN (Reason: Loose Stool) metolazone 5 mg Tablet 5 mg PO QAM Plavix 75 mg Tablet 75 mg PO QPM Tylenol Ex Str Rapid Release 500 mg Tablet 1,000 mg PO Q6H PRN (Reason: Pain) simvastatin 40 mg Tablet 40 mg PO BEDTIME Tessalon Perles 100 mg Capsule 100 mg PO Q8H PRN (Reason: Cough) Benadryl 25 mg Capsule 25 mg PO BEDTIME PRN (Reason: Itching) mirtazapine 30 mg Tablet 30 mg PO BEDTIME ropinirole 0.5 mg Tablet 0.5 mg PO QPM budesonide 0.5 mg/2 mL Suspension For Nebulization 0.5 mg inhalation Q12H Rx Instructions: for 5 days (start date 04/06/22) hydroxyzine HCl 25 mg Tablet 25 mg PO Q8H PRN (Reason: Itching) gabapentin 100 mg Capsule 100 mg PO TID Renal Caps 1 mg Capsule 1 cap PO QPM ProAir HFA 90 mcg/actuation Hfa Aerosol Inhaler 2 puff INHALATION Q6H PRN (Reason: Wheezing) carbidopa-levodopa 25-100 mg Tablet 2 tab PO TID sertraline 50 mg Tablet 50 mg PO DAILY hydroxyzine pamoate 25 mg Capsule 25 mg PO QPM Novolog Flexpen U-100 Insulin 100 unit/mL (3 mL) Insulin Pen See Rx Instructions .ROUTE .COMPLEX Rx Instructions: sliding scale three times a day 150-200=3 units 201-250=5 units 251-300=7 units 301-350=9 units 351-400=11 units call provider for bs <60 or >400 cyclobenzaprine 5 mg Tablet 5 mg PO Q8H PRN (Reason: Muscle Spasm) solifenacin 5 mg Tablet 5 mg PO QAM Advair HFA 115-21 mcg/actuation Hfa Aerosol Inhaler 2 puff INHALATION BID Lantus Solostar U-100 Insulin 100 unit/mL (3 mL) Insulin Pen 40 unit SUBCUT DAILY Pro-Stat 101 15-101 gram-kcal/30 mL Liquid See Rx Instructions .ROUTE .COMPLEX Rx Instructions: 30ml by mouth daily Vitamin D3 50 mcg (2,000 unit) Capsule 6,000 unit PO DAILY [place] Thyroid 90 mg Tablet 90 mg PO DAILY [place] 0.01 % Drops 1 drp OPHTHALMIC (EYE) BEDTIME oxycodone 7.5 mg Tablet, Oral Only 7.5 mg PO Q6H PRN (Reason: Pain) Eliquis 5 mg Tablet 5 mg PO BID (DME) calcium alginate 2 X 2 Bandage TOPICAL Rx Instructions: apply to left lower leg topically one time a day for diabetic ulcer Biofreeze (menthol) 4 % Gel See Rx Instructions .ROUTE .COMPLEX Rx Instructions: apply to bilat feet topically every 4 hours as needed for pain to feet Discharge Orders: Discharge Order (Routine); Ordered 04/08/22 Ordered By: Prince Yoon Referrals: Lydia Chávez FNP [Primary Care Provider] - 4-7 days Discharge Activity: Increase activity as tolerated Patient Instructions: Doxycycline (By mouth), Oseltamivir (By mouth), Cefdinir (By mouth), Influenza (GEN), Opioid Safety Activity Restrictions/Additional Instructions: Complete Tamiflu with doses after dialysis. Complete short course of prednisone, course of cefdinir, starting Sunday daily at the time he would normally be done with dialysis, on dialysis days after dialysis. Course of doxycycline. Follow-up with your primary doctor for reassessment of recovery after influenza, pneumonia, CHF, follow-up regarding chronic problems including ESRD, iron deficiency anemia. Discharge Attestations Time Spent in Discharge Care*: greater than 30 min Quality Metrics Clinical Quality Measures [ No reported AMI, CVA or VTE this stay] Coding Level of Care Code Acute g [facility] note Diagnoses ESRD (end stage renal disease) N18.6
[2022-04-08] MEDS: cefdinir 300 MG CAPSULE PO (17:58)
[2022-04-08] MEDS: ondansetron 2 mg/ML SDV 2 mL 4 MG IVP (19:49)
[2022-04-08] MEDS: mirtazapine 30 mg Tablet PO (20:27)
[2022-04-08] MEDS: clopidogrel 75 mg Tablet PO (20:27)
[2022-04-08 20:41] LABS: Glucose Point of Care 204 mg/dL (70-110)
[2022-04-08] MEDS: ropinirole 0.25 mg Tablet 0.5 MG PO (21:29)
[2022-04-08] MEDS: benzonatate 100 mg Capsule PO (21:35)
[2022-04-09] VITALS: BP 161/51; PULSE 120; RESP 19; TEMP 36.7; O2SAT 93
[2022-04-09 00:01] VITALS: RESP 16
[2022-04-09] MEDS: oxyCODONE 5 mg IR Tab/Cap 7.5 MG PO (00:01)
[2022-04-09] MEDS: cyclobenzaprine 10 mg Tablet 5 MG PO (00:02)
[2022-04-09 02:34] LABS: Glucose Point of Care 164 mg/dL (70-110)
[2022-04-09 04:00] VITALS: BP 161/90; PULSE 98; RESP 17; TEMP 36.8; O2SAT 94
[2022-04-09 04:42] LABS: Basophils % 0.1 %; Hemoglobin 9.9 g/dL (11.5-15.3); Lymphocytes # 0.8 10^3/uL (0.8-4.8); Lymphocytes % 4.7 %; Mean Corpuscular Hemoglobin 31.1 pg (28.0-34.0); Mean Corpuscular Volume 103.8 fl (81-99); Mean Platelet Volume 10.7 fL (7.4-10.4); Monocytes # 0.4 10^3/uL (0.2-0.9); Monocytes % 2.4 %; Neutrophils # 14.56 10^3/uL (1.8-7.7); Neutrophils % 90.7 %; Nucleated Red Blood Cells % 0.2 %; Platelet Count 274 10^3/cmm (130-400); Red Blood Count 3.18 10^6/uL (4.1-5.3); Red Cell Distribution Width 15.9 % (12.1-15.1); White Blood Count 16.1 10^3/uL (4.0-10.0)
[2022-04-09 05:02] LABS: Alanine Aminotransferase < 5 U/L (0-33); Albumin Level 3.2 g/dL (3.5-5.2); Alkaline Phosphatase 99 U/L (35-105); Anion Gap 18.2 (5-19); Aspartate Amino Transferase 12 U/L (0-32); Blood Urea Nitrogen 44 mg/dL (8-23); Calcium 8.7 mg/dL (8.5-10.5); Carbon Dioxide 23 mmol/L (22-29); Chloride 94 mmol/L (98-107); Globulin 4.4 g/dL (1.3-4.6); Glucose 190 mg/dL (65-115); Osmolality Calculated 290 mOsm/kg (285-295); Potassium 3.2 mmol/L (3.5-5.1); Sodium 132 mmol/L (136-145); Total Bilirubin 0.3 mg/dL (0.15-1.2); Total Protein 7.6 g/dL (6.6-8.7)
[2022-04-09] MEDS: folic acid 1 mg Tablet PO (05:12)
[2022-04-09] MEDS: thyroid 60 mg Tablet 45 MG PO (05:16)
[2022-04-09] MEDS: ondansetron 2 mg/ML SDV 2 mL 4 MG IVP (05:37)
[2022-04-09 07:02] LABS: Glucose Point of Care 211 mg/dL (70-110)
[2022-04-09] MEDS: carbidopa-levodopa 25-100mg Tablet 2 EACH PO (07:58)
[2022-04-09] MEDS: calcium carbonate 500 mg Chew Tablet PO (07:58)
[2022-04-09] MEDS: acetaminophen 325 mg Tablet 650 MG PO (07:59)
[2022-04-09] MEDS: metoprolol tartrate 50 mg Tablet 100 MG PO (07:59)
[2022-04-09] MEDS: amlodipine 5 mg Tablet PO (07:59)
[2022-04-09] MEDS: cholecalciferol (vitamin D3) 5,000 unit Tablet 5000 UNIT PO (07:59)
[2022-04-09] MEDS: piperacillin-tazobactam 3.375 GM in sodium chloride 0.9% (plus) 50 ML IV (07:59)
[2022-04-09] MEDS: heparin 5,000 unit/mL INJ 1 mL 5000 UNIT SUBCUT (07:59)
[2022-04-09 08:00] VITALS: BP 96/69; PULSE 120; RESP 18; TEMP 36.8; O2SAT 91
[2022-04-09] MEDS: insulin lispro 100 unit/1 mL SUBCUT (08:00)
[2022-04-09] MEDS: insulin glargine 100 units/1 mL 40 UNIT SUBCUT (08:04)
[2022-04-09] MEDS: budesonide 0.5 mg/2 mL Neb INHALATION (08:57)
[2022-04-09] MEDS: ipratropium-albuterol 3 mL Neb INHALATION (08:57)
[2022-04-09 08:59] VITALS: PULSE 96; RESP 18; O2SAT 94
--- NOTE | 2022-04-09 11:20 | P.PN_ITS ---
Subjective Subjective: feels better plan for discharge later today Vitals/I&O/Wt Last Vital Signs Temp 98.2 F 04/09/22 08:00 Pulse 96 04/09/22 08:59 Resp 18 04/09/22 08:59 BP 96/69 04/09/22 08:00 Pulse Ox 94 04/09/22 08:59 O2 Del Method 04/09/22 08:59 O2 Flow Rate 2 04/08/22 20:00 04/08/22 04/09/22 04/09/22 22:59 06:59 14:59 Intake Total 920 / 1388 50 / 1438 Output Total 1360 / 1760 Balance -440 / -372 50 / -322 Weight last 48 hrs Weight 120.1 kg Weight 118.569 kg Physical Exam Const: COMMON NORMALS: no acute distress and alert Neck/C-Spine: OTHER: IJ tunneled HD catheter Extremity: NARRATIVE EXTREMITY EXAM: no edema, LUE AVF Neuro: SENSORIUM/ORIENTATION: Yes alert Data 04/09/22 04:00 04/09/22 04:00 Micro: Microbiology 04/07/22 Unknown Gram Stain - Final Sputum - Expectorated Sputum Sputum Culture - Preliminary Coag positive Staphylococcus A&P Assessment and plan (1) ESRD (end stage renal disease): seen via telemedicine with assistance of RN at bedside Plan 1. ESRD, HD yesterday, 860 ml fluid removal 2. Influenza A, pneumonia. COPD exacerbation. BC neg 3. Anemia, Hb stable 5. Hypokalemia Recommend: replace KCl oral, continue HD on 3K bath, Outpatient treatments have been changed to MWF. If discharged today, will return to outpatient HD tomorrow. No IVs, BPs, blood draws left arm. Continue Epogen at dialysis. 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
[2022-04-09 11:24] LABS: Glucose Point of Care 204 mg/dL (70-110)
[2022-04-09 11:53] VITALS: BP 166/72; PULSE 90; RESP 18; TEMP 36.7; O2SAT 97
--- NOTE | 2022-04-09 14:52 | P.PN_ITS ---
Subjective Subjective: Refer to discharge summary from yesterday. She was not able to discharge yesterday due to lack of transport. Today she states she is feeling well. She wants to return home. Breathing has improved. Denies chest pain or pressure. Vitals/I&O/Wt Last Vital Signs Temp 98.1 F 04/09/22 11:53 Pulse 90 04/09/22 11:53 Resp 18 04/09/22 11:53 BP 166/72 04/09/22 11:53 Pulse Ox 97 04/09/22 11:53 O2 Del Method 04/09/22 11:53 O2 Flow Rate 2 04/08/22 20:00 04/08/22 04/09/22 04/09/22 22:59 06:59 14:59 Intake Total 920 / 1388 50 / 1438 Output Total 1360 / 1760 Balance -440 / -372 50 / -322 Weight last 48 hrs Weight 120.1 kg Weight 118.569 kg Physical Exam Narrative: Undergoing dialysis. Const: COMMON NORMALS: patient oriented x3 and alert GENERAL APPEARANCE: cooperative ORIENTATION/CONSCIOUSNESS: Yes awake HENMT: COMMON NORMALS: oropharynx normal Neck/C-Spine: COMMON NORMALS: no JVD Resp: COMMON NORMALS: normal respiratory effort and clear to auscultation bilaterally AUSCULTATION: clear to auscultation bilaterally, no wheezes and diminished lung sounds Cardio: COMMON NORMALS: no JVD, regular rhythm, S1 normal heart sound present, S2 normal heart sound present and No murmurs present (Cardio) RHYTHM: regular rhythm HEART SOUNDS: S1 normal heart sound present and S2 normal heart sound present GI: COMMON NORMALS: Normal to inspection, nondistended, normoactive bowel sounds present, Soft to palpation and non-tender PALPATION: Yes Soft to palpation Extremity: COMMON NORMALS: no joint enlargement and no pedal edema OTHER: Right arm fistula Neuro: COMMON NORMALS: patient oriented x3 and moves all extremities SENSORIUM/ORIENTATION: Yes alert Skin: COMMON NORMALS: no rashes or lesions noted GENERAL SKIN EXAM: no rashes or lesions noted Data 04/09/22 04:00 04/09/22 04:00 Micro: Microbiology 04/07/22 Unknown Gram Stain - Final Sputum - Expectorated Sputum Sputum Culture - Preliminary Coag positive Staphylococcus A&P Assessment and plan (1) ESRD (end stage renal disease): (2) Pneumonia: (3) Influenza A: (4) Chronic kidney disease: ESRD on HD TTS. (5) Iron deficiency anemia: (6) Acute exacerbation of CHF (congestive heart failure): (7) Bilateral lower extremity edema: (8) Hyperlipemia: (9) History of CVA (cerebrovascular accident): (10) Hypertension: (11) Diarrhea: Stool studies including C. difficile pending negative. Plan COPD exacerbation #Hypokalemia, potassium 2.8 #Anemia of chronic disease #Acute on chronic diastolic congestive heart failure #Insulin-dependent diabetes mellitus #Hypothyroidism #Parkinson's disease Charcot foot BL Pressure ulcer foot L foot: Wound care Full code DVT prophylaxis: Heparin Attestations Medical Necessity Statement*: Returning home. 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
--- NOTE | 2022-04-10 08:29 | W.PM.EVENTAC ---
Event Note Event Note: Sputum MRSA positive, resistant to Tetracycyline. Linezolid 600mg BID for 7 days.
--- NOTE | 2022-04-10 08:30 | PC.SOCIAL ---
Sputum Culture Results Pt had a critical Sputum culture of MRSA. Called Dr Escalera, He said to stop the Doxycycline & start her on Linezolid 600mg BID for 7 days. Inside Sales Account Representative called [facility], spoke to Belen. Informed her of this. She said they will get it changed. No other needs voiced.
--- NOTE | 2022-04-12 12:10 | PC.SOCIAL ---
Per Dr. Escalera, discussed with ID and patient needs to be reevaluated and advise facility to bring patient back to the ER. ROLDAN contacted [facility] and spoke to Joan and updated her of the information. She states that they will get her ready and send her in.
== END 2022-04-09 12:38 | disposition home health service (06) | DRG 193 ==
LOC: ER 20:14 → MEDSURG 20:41
PROVIDERS: Internal Medicine; Admitting Provider Internal Medicine; Emergency Provider Emergency Medicine; PCP Nurse Practitioner Family; Visit Provider Internal Medicine
DX: J10.00 Influenza due to other identified influenza virus with unspecified type of pneumonia (principal); I50.33 Acute on chronic diastolic (congestive) heart failure; N18.6 End stage renal disease; J44.1 Chronic obstructive pulmonary disease with (acute) exacerbation; I13.2 Hypertensive heart and chronic kidney disease with heart failure and with stage 5 chronic kidney disease, or end stage renal disease; J98.01 Acute bronchospasm; E11.22 Type 2 diabetes mellitus with diabetic chronic kidney disease; D63.1 Anemia in chronic kidney disease; D50.9 Iron deficiency anemia, unspecified; E87.6 Hypokalemia; E83.42 Hypomagnesemia; R19.7 Diarrhea, unspecified; E11.40 Type 2 diabetes mellitus with diabetic neuropathy, unspecified; E11.610 Type 2 diabetes mellitus with diabetic neuropathic arthropathy; L89.899 Pressure ulcer of other site, unspecified stage; E78.5 Hyperlipidemia, unspecified; E03.9 Hypothyroidism, unspecified; G20 Parkinson's disease; M96.1 Postlaminectomy syndrome, not elsewhere classified; Z22.322 Carrier or suspected carrier of Methicillin resistant Staphylococcus aureus; Z99.2 Dependence on renal dialysis; Z79.4 Long term (current) use of insulin; Z86.73 Personal history of transient ischemic attack (TIA), and cerebral infarction without residual deficits; Z87.891 Personal history of nicotine dependence; Z79.02 Long term (current) use of antithrombotics/antiplatelets; Z95.9 Presence of cardiac and vascular implant and graft, unspecified
CPT/HCPCS: 36415; 36416; 71045; 80048; 80053; 82962; 83036; 83540; 83550; 83605; 83735; 83880; 84100; 84145; 84443; 85025; 86706; 86803; 87040; 87070; 87077; 87186; 87205; 87340; 87493; 87506; 87641; 90935; 93005; 94640; 94762; 96372; 97161; 97166; 97530; J0456; J0696; J1644; J1815; J1940; J2405; J2543; J2920; J3370; J3475; J7050; J7626; Q3014; Q4081

== ENCOUNTER 2022-04-12 16:20 | Inpatient (IN) | payer MEDICARE, OTHER, SELFPAY ==
[2022-04-12 16:26] VITALS: PULSE 110; RESP 16; TEMP 36.8; O2SAT 90; BMI 43.8
--- NOTE | 2022-04-12 18:43 | XRR_ITS ---
PROCEDURE INFORMATION: Exam: XR Chest Exam date and time: 04/12/2022 6:55 PM Age: 77 years old Clinical indication: Shortness of breath; Additional info: SOB TECHNIQUE: Imaging protocol: Radiologic exam of the chest. Views: 1 view. COMPARISON: CR XR chest 1V portable [id number] 04/07/2022 7:56 AM FINDINGS: Tubes, catheters and devices: Tunneled right IJ dialysis catheter with tip over the distal SVC. Dorsal stimulator lead projects over the mid to lower thoracic spine. Lungs: Mild interstitial opacities in the lung bases. No consolidation. The upper lung zones are clear. Pleural spaces: Unremarkable. No pleural effusion. No pneumothorax. Heart/Mediastinum: Mild cardiomegaly. Bones/joints: Unremarkable. XR/XR chest 1V portable [id number] IMPRESSION: Cardiomegaly with suspected mild interstitial pulmonary edema.
--- NOTE | 2022-04-12 18:54 | PC.NURSE ---
report given to tony victor.
--- NOTE | 2022-04-12 18:56 | ED_ITS ---
HPI - General Adult General: Chief complaint: General Medical Stated complaint: Sent for possible MRSA infection in blood Time Seen by Provider: 04/12/22 17:56 Source: patient Mode of arrival: ambulatory Limitations: no limitations History of Present Illness: 77-year-old female who had been admitted here for pneumonia patient had blood culture that grew out MRSA she was called by her physician and called her and recommended that she be readmitted she states she has continued to have a cough along with some shortness of breath she denies any fever patient is on dialysis she gets dialysis Sunday states she did receive dialysis today. Associated symptoms: Reports dyspnea; Deny chest pain, headache(s), nausea, rash or vomiting Review of Systems Const: Reports: fatigue Eyes: Denies: blurry vision or eye discomfort ENMT: Denies: throat pain or dental pain Card: Denies: chest pain Resp: Reports: dyspnea and non-productive cough GI: Denies: abdominal pain, nausea, vomiting or diarrhea : Denies: dysuria Musc: Denies: neck pain or back pain Skin/Breast: Denies: rash Neuro: Denies: headache(s) Psych: Denies: depression Tank/Lymph: Denies: easy bruising All/Imm: Denies: urticaria PFSH ED PFSH: Medical History Anemia in chronic illness Chronic insomnia Chronic renal insufficiency COPD (chronic obstructive pulmonary disease) Diabetes mellitus type 2, insulin dependent Diabetic neuropathy Fibromyalgia History of CVA (cerebrovascular accident) Hyperlipemia Hypertension Hypothyroidism Lumbar disc disease with radiculopathy Neuropathy Parkinson disease Post laminectomy syndrome Sciatica associated with disorder of lumbosacral spine Stage 4 chronic renal impairment associated with type 2 diabetes mellitus Uncontrolled insulin dependent diabetes mellitus Vitamin D deficiency Surgical History Hx of cholecystectomy Hx of foot surgery Hx of hysterectomy Family History Father CAD (coronary artery disease) Mother CAD (coronary artery disease) Diabetes Grandfather CAD (coronary artery disease) Diabetes Social History Smoking and tobacco status: former smoker Second hand smoke exposure: No Alcohol intake: current Alcohol intake frequency: holidays/special occasions only Alcohol type: hard liquor History of recent travel: No Physical Exam Const: COMMON NORMALS: patient oriented x3 HENMT: COMMON NORMALS: normocephalic and atraumatic HEAD & SCALP: normo cephalic and atraumatic Eye: COMMON NORMALS: Equal, round and reactive pupils present and EOMs intact bilaterally PUPIL: Yes Equal, round and reactive pupils present Neck/C-Spine: COMMON NORMALS: full ROM and supple Chest: COMMONS NORMALS: normal inspection of the chest and normal palpation of entire chest wall Resp: COMMON NORMALS: normal respiratory effort, No retractions, No use of accessory muscles and clear to auscultation bilaterally AUSCULTATION: clear to auscultation bilaterally Cardio: COMMON NORMALS: regular rate, regular rhythm and No murmurs present (Cardio) RATE: regular rate RHYTHM: regular rhythm GI: COMMON NORMALS: Normal to inspection, nondistended, normoactive bowel sounds present, Soft to palpation, non-tender and no masses PALPATION: Yes Soft to palpation Extremity: COMMON NORMALS: normal to inspection and full ROM Neuro: COMMON NORMALS: patient oriented x3, moves all extremities and no focal motor deficits Psych: COMMON NORMALS: mental status grossly normal, Normal thought process present and cooperative THOUGHT PROCESS: Normal thought process present Skin: COMMON NORMALS: no rashes or lesions noted and no wounds GENERAL SKIN EXAM: no rashes or lesions noted Course Vital Signs: Vital signs: Vital Signs Temperature 98.3 F 04/12/22 16:26 Pulse Rate 110 H 04/12/22 16:26 Respiratory Rate 16 04/12/22 16:26 Pulse Oximetry 90 04/12/22 16:26 Oxygen Delivery Me thod 04/12/22 16:26 MDM - General Adult Medical Decision Making Patient presents here with pneumonia she had blood cultures that grew out MRSA spoken to the hospitalist will admit at this time for IV antibiotics and blood cultures. Lab Data 04/12/22 19:10 04/12/22 19:10 Radiology Impressions Chest X-Ray 04/12/22 18:43 IMPRESSION: Cardiomegaly with suspected mild interstitial pulmonary edema. Laboratory Results Sodium 138 mmol/L (136-145) 04/12/22 19:10 Potassium 3.6 mmol/L (3.5-5.1) 04/12/22 19:10 Chloride 98 mmol/L (98-107) 04/12/22 19:10 Carbon Dioxide 28 mmol/L (22-29) 04/12/22 19:10 Anion Gap 15.6 (5-19) 04/12/22 19:10 BUN 20 mg/dL (8-23) 04/12/22 19:10 Creatinine 1.8 mg/dL (0.5-0.9) H 04/12/22 19:10 GFR Calculation Not Reportable 04/12/22 19:10 Glucose 207 mg/dL (65-115) H 04/12/22 19:10 Calculated Osmolality 295 mOsm/kg (285-295) 04/12/22 19:10 Calcium 8.0 mg/dL (8.5-10.5) L 04/12/22 19:10 Total Bilirubin 0.5 mg/dL (0.15-1.2) 04/12/22 19:10 AST 12 U/L (0-32) 04/12/22 19:10 ALT < 5 U/L (0-33) 04/12/22 19:10 Alkaline Phosphatase 86 U/L (35-105) 04/12/22 19:10 Total Protein 7.5 g/dL (6.6-8.7) 04/12/22 19:10 Albumin 3.3 g/dL (3.5-5.2) L 04/12/22 19:10 Globulin 4.2 g/dL (1.3-4.6) 04/12/22 19:10 Discharge Plan Discharge Patient Disposition: Admitted As Inpatient Clinical Impression: Pneumonia Condition: Stable Prescriptions: No Action losartan 50 mg Tablet 50 mg PO BEDTIME Lasix 40 mg Tablet 40 mg PO BID promethazine-DM 6.25-15 mg/5 mL Syrup 5 ml PO Q4H PRN (Reason: Cough) Neosporin ([id number]) 3.5mg-400 unit- 5,000 unit/gram Ointment See Rx Instructions .ROUTE .COMPLEX Rx Instructions: apply to bottom of left foot topically one time a day -clean with ns apply ointment and bandage daily till healed ipratropium-albuterol 0.5 mg-3 mg(2.5 mg base)/3 mL Solution For Nebulization 3 ml INHALATION Q6H PRN (Reason: Cough) albuterol sulfate 2.5 mg /3 mL (0.083 %) solution for nebulization 2.5 mg inhalation Q6H PRN (Reason: Shortness Of Breath) metoprolol tartrate 100 mg Tablet 100 mg PO BID ondansetron HCl 4 mg Tablet 4 mg PO Q8H PRN (Reason: Nausea And Vomiting) clonidine HCl 0.3 mg Tablet 0.3 mg PO Q8H PRN (Reason: systolic bp >160) Imodium A-D 2 mg Tablet 2 mg PO Q6H PRN (Reason: Loose Stool) metolazone 5 mg Tablet 5 mg PO QAM Plavix 75 mg Tablet 75 mg PO QPM acetaminophen 500 mg Tablet 1,000 mg PO Q6H PRN (Reason: Pain) simvastatin 40 mg Tablet 40 mg PO BEDTIME benzonatate 100 mg Capsule 100 mg PO Q8H PRN (Reason: Cough) Benadryl 25 mg Capsule 25 mg PO BEDTIME PRN (Reason: Itching) mirtazapine 30 mg Tablet 30 mg PO BEDTIME ropinirole 0.5 mg Tablet 0.5 mg PO QPM budesonide 0.5 mg/2 mL Suspension For Nebulization 0.5 mg inhalation Q12H Rx Instructions: for 5 days (start date 04/06/22) hydroxyzine HCl 25 mg Tablet 25 mg PO Q8H PRN (Reason: Itching) gabapentin 100 mg Capsule 100 mg PO TID Renal Caps 1 mg Capsule 1 cap PO QPM ProAir HFA 90 mcg/actuation Hfa Aerosol Inhaler 2 puff INHALATION Q6H PRN (Reason: Wheezing) carbidopa-levodopa 25-100 mg Tablet 2 tab PO TID sertraline 50 mg Tablet 50 mg PO DAILY hydroxyzine pamoate 25 mg Capsule 25 mg PO QPM Novolog Flexpen U-100 Insulin 100 unit/mL (3 mL) Insulin Pen See Rx Instructions .ROUTE .COMPLEX Rx Instructions: sliding scale three times a day 150-200=3 units 201-250=5 units 251-300=7 units 301-350=9 units 351-400=11 units call provider for bs <60 or >400 cyclobenzaprine 5 mg Tablet 5 mg PO Q8H PRN (Reason: Muscle Spasm) solifenacin 5 mg Tablet 5 mg PO QAM Advair HFA 115-21 mcg/actuation Hfa Aerosol Inhaler 2 puff INHALATION BID Lantus Solostar U-100 Insulin 100 unit/mL (3 mL) Insulin Pen 40 unit SUBCUT DAILY amino acids-protein hydrolys 15-101 gram-kcal/30 mL Liquid See Rx Instructions .ROUTE .COMPLEX Rx Instructions: 30ml by mouth daily Vitamin D3 50 mcg (2,000 unit) Capsule 6,000 unit PO DAILY [place] Thyroid 90 mg Tablet 90 mg PO DAILY [place] 0.01 % Drops 1 drp OPHTHALMIC (EYE) BEDTIME oxycodone 7.5 mg Tablet, Oral Only 7.5 mg PO Q6H PRN (Reason: Pain) Eliquis 5 mg Tablet 5 mg PO BID (DME) calcium alginate 2 X 2 Bandage TOPICAL Rx Instructions: apply to left lower leg topically one time a day for diabetic ulcer Biofreeze (menthol) 4 % Gel See Rx Instructions .ROUTE .COMPLEX Rx Instructions: apply to bilat feet topically every 4 hours as needed for pain to feet oseltamivir 30 mg capsule 30 mg PO DIALYSIS Qty: 1 0RF Rx Instructions: After dialysis on Sunday doxycycline hyclate 75 mg tablet 75 mg PO BID Qty: 12 0RF cefdinir 300 mg capsule See Rx Instructions .ROUTE .COMPLEX 6 Days Qty: 5 0RF Rx Instructions: Daily starting Sunday at that time he would normally finish dialysis, after dialysis on dialysis days. Referrals: Lydia Chávez FNP [Primary Care Provider] - Coding Level of Care Code ED [employer] Consultant for Dominick Fwd Exam Comprehensive
[2022-04-12] MEDS: vancomycin 1,000 MG in sodium chloride 0.9% 250 ML 250 MG IV (19:27)
--- NOTE | 2022-04-12 19:28 | P.HP_ITS ---
Providers/Chief Complaint Primary Care Provider: MILAGRO Kent Chief Complaint: Sent for possible MRSA infection in blood History of Present Illness Meghna Chaudhari is a 77 year old female who carries history of A. fib, chronic anti coagulation with Eliquis, end-stage renal disease, COPD, was discharged on 04/08 after management of MRSA related pneumonia she was discharged on brief course of steroids, doxycycline, cefdinir along with Tamiflu for influenza A. Her dialysis schedule is Sunday and Sunday she has history of Parkinson's. She has been requested to come to the hospital because of positive blood culture with MRSA. Please note blood cultures were taken on 04/06 1 out of 4 bottles are positive with MRSA she developed diarrhea during last hospitalization C. difficile was negative stool cultures were negative. Sputum culture not sensitive to tetracycline, she was switched to linezolid. Patient is stating that since her discharge from the hospital she would describe her health status to be steady but she is still experiencing frequent bouts of cough with green sputum production. She has not noticed any fever, chest pain, she does get short of breath easily on mild exertion. Her diarrhea has not improved. No nausea or vomiting. Please note she was getting antibiotics for her diabetic Charcot foot ulcers before her admission to the hospital. In the ER, she is afebrile, right sided infiltrate seems to be improving on current x-ray as compared to previous CBC, BMP is pending at the time of my admission Review of Systems Const: Reports: body aches and change in appetite Eyes: Denies: change in vision ENMT: Denies: throat pain Card: Denies: chest pain Resp: Reports: dyspnea and productive cough GI: Denies: abdominal pain : Denies: flank pain Musc: Reports: back pain and extremity pain Skin/Breast: Reports: rash and non-healing lesions Neuro: Denies: headache(s) Psych: Reports: anxiety Endo: Denies: polyuria Tank/Lymph: Denies: easy bruising All/Imm: Denies: urticaria Medications/Allergies Home Medications Medication Instructions Recorded Confirmed Last Taken Type acetaminophen 500 mg tablet 1,000 mg PO Q6H PRN Pain 04/07/22 04/07/22 Unknown History albuterol sulfate 2.5 mg/3 mL 2.5 mg inhalation Q6H PRN 04/07/22 04/07/22 Unknown History (0.083 %) solution for nebulization Shortness Of Breath albuterol sulfate 90 mcg/actuation 2 puff inhalation Q6H PRN Wheezing 04/07/22 04/07/22 Unknown History aerosol inhaler (ProAir HFA) amino acids-protein hydrolysate 15 See Rx Instructions .Route .COMPLEX 04/07/22 04/07/22 Unknown History gram-101 kcal/30 mL oral liquid apixaban 5 mg tablet (Eliquis) 5 mg PO BID 04/07/22 04/07/22 Unknown History benzonatate 100 mg capsule 100 mg PO Q8H PRN Cough 04/07/22 04/07/22 Unknown History bimatoprost 0.01 % eye drops 1 drp ophthalmic (eye) BEDTIME 04/07/22 04/07/22 Unknown History ([place]) budesonide 0.5 mg/2 mL suspension 0.5 mg inhalation Q12H 04/07/22 04/07/22 Unknown History for nebulization calcium alginate 2 X 2 bandage 04/07/22 04/07/22 Unknown History carbidopa 25 mg-levodopa 100 mg 2 tab PO TID 04/07/22 04/07/22 Unknown History tablet cholecalciferol (vitamin D3) 50 6,000 unit PO DAILY 04/07/22 04/07/22 Unknown History mcg (2,000 unit) capsule (Vitamin D3) clonidine HCl 0.3 mg tablet 0.3 mg PO Q8H PRN systolic bp >160 04/07/22 04/07/22 Unknown History clopidogrel 75 mg tablet (Plavix) 75 mg PO QPM 04/07/22 04/07/22 Unknown History cyclobenzaprine 5 mg tablet 5 mg PO Q8H PRN Muscle Spasm 04/07/22 04/07/22 Unknown History diphenhydramine HCl 25 mg capsule 25 mg PO BEDTIME PRN Itching 04/07/22 04/07/22 Unknown History (Benadryl) fluticasone propionate 115 2 puff inhalation BID 04/07/22 04/07/22 Unknown History mcg-salmeterol 21 mcg/actuation HFA inhaler (Advair HFA) furosemide 40 mg tablet (Lasix) 40 mg PO BID 04/07/22 04/07/22 Unknown History gabapentin 100 mg capsule 100 mg PO TID 04/07/22 04/07/22 Unknown History hydroxyzine HCl 25 mg tablet 25 mg PO Q8H PRN Itching 04/07/22 04/07/22 Unknown History hydroxyzine pamoate 25 mg capsule 25 mg PO QPM 04/07/22 04/07/22 Unknown History insulin aspart U-100 100 unit/mL See Rx Instructions .Route .COMPLEX 04/07/22 04/07/22 Unknown History (3 mL) subcutaneous pen (Novolog Flexpen U-100 Insulin aspart) insulin glargine 100 unit/mL (3 40 unit SUBCUT DAILY 04/07/22 04/07/22 Unknown History mL) subcutaneous pen (Lantus Solostar U-100 Insulin) ipratropium 0.5 mg-albuterol 3 mg 3 ml inhalation Q6H PRN Cough 04/07/22 04/07/22 Unknown History (2.5 mg base)/3 mL nebulization soln loperamide 2 mg tablet (Imodium 2 mg PO Q6H PRN Loose Stool 04/07/22 04/07/22 Unknown History A-D) losartan 50 mg tablet 50 mg PO BEDTIME 04/07/22 04/07/22 Unknown History menthol 4 % topical gel (Biofreeze See Rx Instructions .Route .COMPLEX 04/07/22 04/07/22 Unknown History (menthol)) metolazone 5 mg tablet 5 mg PO QAM 04/07/22 04/07/22 Unknown History metoprolol tartrate 100 mg tablet 100 mg PO BID 04/07/22 04/07/22 Unknown History mirtazapine 30 mg tablet 30 mg PO BEDTIME 04/07/22 04/07/22 Unknown History neomycin-bacitracn Zn-polymyx 3.5 See Rx Instructions .Route .COMPLEX 04/07/22 04/07/22 Unknown History mg-400 unit-5,000 unit/gram top oint (Neosporin ([id number]-lsuhj)) ondansetron HCl 4 mg tablet 4 mg PO Q8H PRN Nausea And Vomiting 04/07/22 04/07/22 Unknown History oxycodone 7.5 mg tablet,oral ONLY 7.5 mg PO Q6H PRN Pain 04/07/22 04/07/22 Unknown History (not for feeding tubes) promethazine-DM 6.25 mg-15 mg/5 mL 5 ml PO Q4H PRN Cough 04/07/22 04/07/22 Unknown History oral syrup ropinirole 0.5 mg tablet 0.5 mg PO QPM 04/07/22 04/07/22 Unknown History sertraline 50 mg tablet 50 mg PO DAILY 04/07/22 04/07/22 Unknown History simvastatin 40 mg tablet 40 mg PO BEDTIME 04/07/22 04/07/22 Unknown History solifenacin 5 mg tablet 5 mg PO QAM 04/07/22 04/07/22 Unknown History thyroid (pork) 90 mg tablet 90 mg PO DAILY 04/07/22 04/07/22 Unknown History ([place] Thyroid) vitamin B complex and vitamin C 1 cap PO QPM 04/07/22 04/07/22 Unknown History no.20-folic acid 1 mg capsule (Renal Caps) cefdinir 300 mg capsule See Rx Instructions .Route 04/08/22 Unknown Rx .COMPLEX 6 days #5 caps doxycycline hyclate 75 mg tablet 75 mg PO BID #12 tabs 04/08/22 Unknown Rx oseltamivir 30 mg capsule 30 mg PO DIALYSIS #1 cap 04/08/22 Unknown Rx Allergies Allergy/AdvReac Type Severity Reaction Status Date / Time sulfamethoxazole Allergy Rash Verified 12/26/21 16:26 [From Septra] trimethoprim [From Septra] Allergy Rash Verified 12/26/21 16:26 morphine AdvReac Personality Verified 12/26/21 16:26 Change pregabalin [From Lyrica] AdvReac Loopy/Unste Verified 12/26/21 16:26 anoop PFSH Acute PFSH: Medical History Anemia in chronic illness Chronic insomnia Chronic renal insufficiency COPD (chronic obstructive pulmonary disease) Diabetes mellitus type 2, insulin dependent Diabetic neuropathy Fibromyalgia History of CVA (cerebrovascular accident) Hyperlipemia Hypertension Hypothyroidism Lumbar disc disease with radiculopathy Neuropathy Parkinson disease Post laminectomy syndrome Sciatica associated with disorder of lumbosacral spine Stage 4 chronic renal impairment associated with type 2 diabetes mellitus Uncontrolled insulin dependent diabetes mellitus Vitamin D deficiency Surgical History Hx of cholecystectomy Hx of foot surgery Hx of hysterectomy Family History Father CAD (coronary artery disease) Mother CAD (coronary artery disease) Diabetes Grandfather CAD (coronary artery disease) Diabetes Social History Smoking and tobacco status: former smoker Second hand smoke exposure: No Alcohol intake: current Alcohol intake frequency: holidays/special occasions only Alcohol type: hard liquor History of recent travel: No Vitals/I&O/Wt Last Vital Signs Temp 98.3 F 04/12/22 16:26 Pulse 110 H 04/12/22 16:26 Resp 16 04/12/22 16:26 Pulse Ox 90 04/12/22 16:26 O2 Del Method 04/12/22 16:26 Weight last 48 hrs Weight 127.006 kg Physical Exam Narrative: Patient is laying supine She is complaining of leg cramps Awake and alert Pleasant and cooperative Does not look fluid overloaded Currently on room air Bilateral bronchial breath sounds with mild wheezing She experiencing multiple bouts of cough Abdomen is soft Left gluteal cleft stage II ulcer without any signs of infection Left foot plantar quarter size diabetic foot ulcer without any active signs of infection No sign of cellulitis Charcot foot Variable S1-S2 Saturating well on room air Appropriate mood and affect Daughters at the bedside Data 04/12/22 19:10 04/12/22 19:10 A&P Assessment and plan (1) ESRD (end stage renal disease): (2) Diarrhea: (3) Pneumonia: (4) Iron deficiency anemia: (5) Neuropathy: (6) ESRD (end stage renal disease): Plan MRSA pneumonia 1 out of 4 blood cultures positive for MRSA(contamination versus bacteremia?) Repeat blood cultures Start her on vancomycin COPD exacerbation with mild wheezing I will start her on budesonide low-dose steroids along DuoNeb She is not requiring oxygen for now Request procalcitonin level to monitor antibiotic response Patient is still experiencing diarrhea I would use loperamide C. difficile panel negative stool cultures negative Type 2 diabetes I will keep her on renal dialysis diabetic diet Keep her on insulin, moderate sliding scale Continue levothyroxine for hypothyroidism Continue Parkinson's medications Restless legs continue gabapentin, ropinirole and mirtazapine Patient is stating her appetite is getting better Full code for now Will consult telemetry nephro Sunday History of A. fib on chronic anticoagulation continue AV teodoro blocking agent and Eliquis Chronic anemia no acute exacerbation Attestations Medical Necessity Statement*: Anticipating more than 2 midnights for management of MRSA positive blood cultures and pneumonia Time Spent in Patient Care: 40 Coding Level of Care Code Acute [employer] Director for Chg Fwd Diagnoses ESRD (end stage renal disease) N18.6 Diarrhea R19.7 Pneumonia J18.9 Iron deficiency anemia D50.9 Neuropathy G62.9 ESRD (end stage renal disease) N18.6
[2022-04-12 19:42] LABS: Hematocrit 33.8 % (37.0-47.0); Hemoglobin 10.4 g/dL (11.5-15.3); Mean Corpuscular HGB Conc 30.8 g/dL (30.0-36.0); Mean Corpuscular Hemoglobin 30.6 pg (28.0-34.0); Mean Corpuscular Volume 99.4 fl (81-99); Mean Platelet Volume 10.1 fL (7.4-10.4); Platelet Count 344 10^3/cmm (130-400); Red Cell Distribution Width 15.7 % (12.1-15.1); White Blood Count 14.7 10^3/uL (4.0-10.0)
[2022-04-12 19:57] LABS: Alanine Aminotransferase < 5 U/L (0-33); Albumin Level 3.3 g/dL (3.5-5.2); Alkaline Phosphatase 86 U/L (35-105); Anion Gap 15.6 (5-19); Aspartate Amino Transferase 12 U/L (0-32); Blood Urea Nitrogen 20 mg/dL (8-23); Carbon Dioxide 28 mmol/L (22-29); Chloride 98 mmol/L (98-107); Globulin 4.2 g/dL (1.3-4.6); Glucose 207 mg/dL (65-115); Osmolality Calculated 295 mOsm/kg (285-295); Potassium 3.6 mmol/L (3.5-5.1); Sodium 138 mmol/L (136-145); Total Bilirubin 0.5 mg/dL (0.15-1.2); Total Protein 7.5 g/dL (6.6-8.7)
[2022-04-12] MEDS: HYDROcodone-acetaminophen 10-325 mg Tablet 1 TAB PO (20:22)
[2022-04-12 20:23] VITALS: BP 184/79; PULSE 97; RESP 18; O2SAT 98
[2022-04-12 20:24] LABS: Procalcitonin 0.29 ng/mL (0-0.5)
[2022-04-12 20:59] VITALS: BP 138/95; PULSE 101; RESP 24; TEMP 36.9; O2SAT 97
[2022-04-12 21:02] VITALS: BMI 39.9
[2022-04-12 21:40] LABS: Glucose Point of Care 217 mg/dL (70-110)
[2022-04-12] MEDS: losartan 50 mg Tablet PO (22:01)
[2022-04-12] MEDS: gabapentin 100 mg Capsule PO (22:01)
[2022-04-12] MEDS: carbidopa-levodopa 25-100mg Tablet 2 EACH PO (22:02)
[2022-04-12] MEDS: mirtazapine 30 mg Tablet PO (22:02)
[2022-04-12 23:08] VITALS: PULSE 88; RESP 17; O2SAT 99
[2022-04-13] VITALS (10 sets, daily range): BP systolic 153–184; BP diastolic 70–94; PULSE 63–106; RESP 15–20; TEMP 36.4–37; O2SAT 94–98
[2022-04-13 02:13] LABS: Total Cells Counted 100 (0-100)
[2022-04-13 02:19] LABS: Absolute Neutrophil 12.5 10^3/cmm (1.4-6.5); Absolute Segmented Neutrophil 12.2 10/cmm (1.6-7.1); Band Neutrophils Absolute 0.3 10^3/cmm (0.0-1.2); Eosinophils 0 %; Lymphocytes 7 %; Lymphocytes Absolute 1.2 10^3/cmm (1.2-3.4); Monocytes Absolute 0.6 10^3/cmm (0.1-0.6); Platelet Estimate Normal (Normal); Polychromasia 1+; Segmented Neutrophils 83 %
[2022-04-13 02:20] LABS: Anisocytosis 1+; Macrocytosis 1+
[2022-04-13 04:53] LABS: Basophils % 0.3 %; Eosinophils # 0.1 10^3/uL (0.0-0.8); Eosinophils % 0.8 %; Hemoglobin 9.8 g/dL (11.5-15.3); Lymphocytes # 2.4 10^3/uL (0.8-4.8); Lymphocytes % 18.5 %; Mean Corpuscular HGB Conc 30.6 g/dL (30.0-36.0); Mean Corpuscular Hemoglobin 30.9 pg (28.0-34.0); Mean Corpuscular Volume 100.9 fl (81-99); Mean Platelet Volume 9.9 fL (7.4-10.4); Monocytes # 1.1 10^3/uL (0.2-0.9); Neutrophils # 8.23 10^3/uL (1.8-7.7); Neutrophils % 64.6 %; Nucleated Red Blood Cells # 0.1 /100WBC; Nucleated Red Blood Cells % 0.4 %; Platelet Count 304 10^3/cmm (130-400); Red Blood Count 3.17 10^6/uL (4.1-5.3); Red Cell Distribution Width 15.5 % (12.1-15.1); White Blood Count 12.7 10^3/uL (4.0-10.0)
[2022-04-13 05:25] LABS: Anion Gap 14.9 (5-19); Blood Urea Nitrogen 25 mg/dL (8-23); C Reactive Protein 21.8 mg/L (0.0-4.9); Calcium 7.8 mg/dL (8.5-10.5); Carbon Dioxide 29 mmol/L (22-29); Chloride 101 mmol/L (98-107); Glucose 102 mg/dL (65-115); Magnesium 1.6 mg/dL (1.7-2.3); Osmolality Calculated 299 mOsm/kg (285-295); Sodium 142 mmol/L (136-145)
[2022-04-13 06:11] LABS: Potassium 2.9 mmol/L (3.5-5.1)
[2022-04-13 06:30] LABS: Glucose Point of Care 96 mg/dL (70-110)
--- NOTE | 2022-04-13 07:44 | PC.PHAR ---
Addendum entered by Fabiana Pascual 04/13/22 09:00: batsheva anderson fax all of the mar and tar per batsheva will fax again Original Note: pt is from [facility] [phone]-batsheva from [facility] faxing mar and tar
[2022-04-13] MEDS: ipratropium-albuterol 3 mL Neb INHALATION (08:03)
[2022-04-13] MEDS: budesonide 0.5 mg/2 mL Neb INHALATION ×2 (08:03→19:59)
[2022-04-13] MEDS: thyroid 60 mg Tablet 90 MG PO (08:13)
[2022-04-13] MEDS: predniSONE 20 mg Tablet PO (08:13)
[2022-04-13] MEDS: gabapentin 100 mg Capsule PO ×3 (08:14→20:08)
[2022-04-13] MEDS: metoprolol tartrate 50 mg Tablet 100 MG PO ×2 (08:14→17:55)
[2022-04-13] MEDS: carbidopa-levodopa 25-100mg Tablet 2 EACH PO ×3 (08:14→20:08)
[2022-04-13] MEDS: apixaban 5 mg Tablet PO ×2 (08:14→17:53)
[2022-04-13] MEDS: insulin glargine 100 units/1 mL 40 UNIT SUBCUT (08:15)
[2022-04-13] MEDS: FUROsemide 40 mg Tablet PO ×2 (08:15→18:00)
--- NOTE | 2022-04-13 08:52 | USCV_ITS ---
Meghna Chaudhari Age: 77 Gender: F : 1945 Exam Date: 04/13/2022 09:50 Ordering Phys: Nic Pack MD Technologist: MARSHA [place] [facility] [place]: MRSA, possible IE BP: 153 / 79 HR: 79 Rhythm: Atrial fibrillation Technical Quality: Adequate MEASUREMENTS (Male / Female) Normal Values 2D ECHO LV Diastolic Diameter PLAX 4.0 cm 4.2 - 5.9 / 3.9 - 5.3 cm LV Systolic Diameter PLAX 2.7 cm IVS Diastolic Thickness 1.1 cm 0.6 - 1.0 / 0.6 - 0.9 cm IVS Systolic Thickness 1.8 cm LVPW Diastolic Thickness 1.3 cm 0.6 - 1.0 / 0.6 - 0.9 cm LVPW Systolic Thickness 1.6 cm LVOT Diameter 2.0 cm LV Ejection Fraction 2D Teich 61.0 % LV Ejection Fraction MOD 2C 60.2 % LV Ejection Fraction 2C AL 59.9 % LA Diameter 4.6 cm RA Width 4.2 cm RA Height 5.8 cm Aorta at Sinotubular Diameter 1.9 cm IVC Diameter 1.4 cm M-MODE Aortic Annulus Diameter 2.7 cm LA Ao Ratio MM 1.7 MV E Point Septal Separation 0.6 cm DOPPLER AV Peak Velocity 127.0 cm/s LVOT Peak Velocity 116.0 cm/s AV Area Cont Eq vti 2.9 cm squared AV Area Cont Eq pk 2.9 cm squared MV Area PHT 3.5 cm squared MV E' Velocity 169.0 cm/s TR Peak Velocity 305.3 cm/s TR Peak Gradient 37.3 mmHg Right Atrial Pressure 3.0 mmHg Pulmonary Artery Systolic Pressu 40.3 mmHg PV Peak Velocity 107.0 cm/s FINDINGS Left Ventricle Left ventricle is normal in size. LV systolic function is normal with EF of 55 to 60%. No regional wall motion abnormalities are seen. Diastolic function is indeterminate because of atrial fibrillation Right Ventricle Normal in size and function Right Atrium Normal in size Left Atrium Normal in size Mitral Valve Moderate mitral annular calcification is seen. Mitral valve is thickened. Mild mitral regurgitation Aortic Valve Grossly normal. No significant stenosis or regurgitation. Tricuspid Valve Grossly normal. Mild tricuspid regurgitation. RVSP is 35-40mmHg. This is consistent with mild pulmonary hypertension Pulmonic Valve Not well-visualized Pericardium Normal Aorta Normal in size IVC CONCLUSIONS Technically limited quality echocardiogram because of poor ultrasonic windows LV systolic function is normal with EF 55 to 60%. Diastolic function is indeterminate because of atrial fibrillation Moderate mitral annular calcification is seen. Mitral valve is thickened. Mild mitral regurgitation Mild tricuspid regurgitation. Mild pulmonary hypertension Compared to prior echocardiogram from 08/03/2021, no significant changes seen Gabino Feng MD (Electronically Signed) Final Date: 13 April 2022 11:43 S
[2022-04-13 09:40] LABS: Procalcitonin 0.27 ng/mL (0-0.5)
[2022-04-13] MEDS: perflutren protein-a microsphr 0.22 mg/mL SDV 3 mL IV (10:15)
--- NOTE | 2022-04-13 10:34 | PC.CHAP ---
Pastoral Care Encounter/Spiritual Assessment Type of Contact [] Declined partition notcher visit [] Patient/Family/Request visit [] Outpatient visit [] Follow-up visit [] Physician referral [] Code/Alert [] Routine visit [] Staff referral [] Actively dying [] Patient sleeping [] Family support [] [] Out of room [] Palliative care [] [] Receiving care in room [] Pre-surgical visit [] Trauma [] Long length of stay [] ICU visit [x] Other: Isolation Relational/Emotional Strength [] Patient feels connected with others/family/visitors/staff [] Distress [] Loneliness/isolation [] Abandonment Spirituality of Patient [] Person of Eve [] Attends Adventism of their Eve [] Believes in Prayer [] Reads Bible or Taoist materials [] There are Spiritual issues to be addressed Process Tank Tender Interventions [] Prayer [] Active listening [] Non-anxious presence [] Spiritual/emotional support [] Crisis/trauma care [] Spiritual counseling [] Bereavement support [] Provided bereavement packet [] Provided Bible/devotional materials [] Provided toy/stuffed animal, coloring book to patient or family member [] Provided Communion [] Anointing/[place] [] Salvation [] Completed spiritual assessment [] Other: Impact on Illness or Injury [] Angry [] Fearful [] Anxious [] Often cries [] Exhaustion [] Unable to work [] Unable to attend restorationism [] Unable to walk/stand [] Unable to read [] Unable to drive [] Unable to eat/drink [] Unable to sleep [] Unable to be with family [] Patient intubated [] Other: Summary Isolation Time spent with patient 5 mins
[2022-04-13 10:40] LABS: Vitamin B12 539 pg/mL (232-1245)
[2022-04-13 10:47] LABS: Folate Level > 20.0 ng/mL (4.8-37.3)
[2022-04-13 11:23] LABS: Glucose Point of Care 198 mg/dL (70-110)
[2022-04-13] MEDS: insulin lispro 100 unit/1 mL SUBCUT ×2 (12:31→17:56)
--- NOTE | 2022-04-13 13:24 | PC.HD ---
Confirmed with telenephrologist that patient recently had her dialysis days changed from TTS to MWF, and therefore did not require HD today. She will have her regularly scheduled dialysis treatment tomorrow.
--- NOTE | 2022-04-13 13:43 | PM.PN ---
Subjective Subjective: Admitted overnight. H&P and labs appreciated. Examination patient lying comfortably in bed. Denies any nausea, vomiting, headache. Complaining of postnasal drip and sore throat. Denies any pain. States follows up with wound care clinic for wound care of Charcot's foot on the left. She gets her dialysis Sunday with last dialysis on Sunday. Vitals/I&O/Wt Last Vital Signs Temp 97.6 F 04/13/22 12:00 Pulse 86 04/13/22 12:00 Resp 16 04/13/22 12:00 BP 181/74 04/13/22 12:00 Pulse Ox 98 04/13/22 12:00 O2 Del Method 04/13/22 12:00 04/12/22 04/13/22 04/13/22 22:59 06:59 14:59 Intake Total 250 / 250 240 / 490 240 / 240 Output Total 300 / 300 Balance 250 / 250 -60 / 190 240 / 240 Weight last 48 hrs Weight 115.575 kg Weight 127.006 kg Physical Exam Narrative: General: No acute distress, AO x3, morbidly obese, on room air, HEENT: PERRLA, pupils bilaterally equal and reactive Chest: Normal vesicular breath sounds, occasional rhonchi present overall over the lung lynn, port present without any discharge, equal good air entry bilaterally CVS: S1-S2 regular, no murmurs, no tachycardia, no gallops, no rubs Abdomen: Soft, nontender, no organomegaly, bowel sounds present Neuro: No focal deficits, no facial deformity, AO x3, power 5/5 in all limbs Data 04/13/22 03:48 04/13/22 03:48 Micro: Microbiology 04/12/22 19:10 Blood Culture - Preliminary Blood SPECIMEN COLLECTED 04/12/22 19:21 Blood Culture - Preliminary Blood SPECIMEN COLLECTED A&P Assessment and plan (1) MRSA bacteremia: With history of recent MRSA pneumonia. Patient does have a port to which she gets her dialysis. Patient also has a history of Charcot foot for which she reportedly is getting antibiotics and wound care as an outpatient for infection for last 4 weeks. Repeat blood cultures sent in the ER yesterday. Continue vancomycin for now. Check echocardiogram to rule out infective endocarditis. Given history of port in place through which patient gets dialysis patient would most likely need at least 6 weeks of IV antibiotics with dialysis going forward after first negative blood culture. Will consult ID. (2) ESRD (end stage renal disease): Nephrology consulted on admission. Get dialysis Sunday, Sunday, Sunday. (3) Diarrhea: On antibiotics for last 4 weeks orally for Charcot's foot infection. Patient is not aware what kind of antibiotic. Check stool for C. difficile. (4) Pneumonia: On room air. Seems to be recovering. History of MRSA pneumonia recently. Already on vancomycin. We will continue to monitor. Oxygen supplementation keeping saturation over 90%. DuoNebs as needed. Will start on Flonase. Continue 20 mg of prednisone overnight. Will taper quickly within next 2 to 3 days. (5) Charcot's joint of left foot: Will consult podiatry to rule out Charcot's foot being the underlying cause of infection. CRP mildly elevated. We will hold off on getting CT or MRI for now given Charcot's foot. (6) Uncontrolled insulin dependent diabetes mellitus: Continue home dose of Lantus. For sliding scale at moderate dose protocol before meals and at bedtime. Check A1c. (7) Hypertension: Goal blood pressure less than 140/90 mmHg. Continue with home dose of metoprolol, losartan and clonidine as needed. Add hydralazine 25 mg 4 times daily. Will uptitrate as per goal blood pressures. (8) S/P dialysis catheter insertion: (9) Iron deficiency anemia: Continue with oral iron supplementation. Check vitamin B12 folate levels. (10) Neuropathy: Plan Full code. Renal dialysis diet. Heparin 5000 every 12 hourly. Protonix for PUD prophylaxis. 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
[2022-04-13] MEDS: oxyCODONE-APAP 5-325 mg Tablet 1 TAB PO ×2 (13:48→21:43)
--- NOTE | 2022-04-13 15:04 | PM.CONSULT ---
Providers/Reason For Consult Consulting Physician/Specialty*: Nephrology Reason for Consult*: End-stage renal disease Attending Physician: Nic Pack MD Primary Care Provider: MILAGRO Kent History of Present Illness History of Present Illness Meghna Chaudhari is a 77 year old female . Patient is a 77-year-old female with past medical history of A. fib on chronic anticoagulation, end-stage renal disease on dialysis per Sunday schedule, COPD was recently admitted here for pneumonia/MRSA and was discharged on antibiotics. She was sent back to the hospital due to positive blood cultures. In the emergency department she was afebrile chest x-ray was unremarkable. Review of Systems Narrative: Other review of systems negative except those mentioned in the history of present illness above Medications/Allergies Home Medications Medication Instructions Recorded Confirmed Last Taken Type acetaminophen 500 mg tablet 1,000 mg PO Q6H PRN Pain 04/07/22 04/13/22 Unknown History albuterol sulfate 2.5 mg/3 mL 2.5 mg inhalation Q6H PRN 04/07/22 04/13/22 Unknown History (0.083 %) solution for nebulization Shortness Of Breath albuterol sulfate 90 mcg/actuation 2 puff inhalation Q6H PRN Wheezing 04/07/22 04/13/22 Unknown History aerosol inhaler (ProAir HFA) amino acids-protein hydrolysate 15 See Rx Instructions .Route .COMPLEX 04/07/22 04/13/22 Unknown History gram-101 kcal/30 mL oral liquid apixaban 5 mg tablet (Eliquis) 5 mg PO BID 04/07/22 04/13/22 Unknown History benzonatate 100 mg capsule 100 mg PO Q8H PRN Cough 04/07/22 04/13/22 Unknown History bimatoprost 0.01 % eye drops 1 drp ophthalmic (eye) BEDTIME 04/07/22 04/13/22 Unknown History ([place]) budesonide 0.5 mg/2 mL suspension 0.5 mg inhalation Q12H 04/07/22 04/13/22 Unknown History for nebulization calcium alginate 2 X 2 bandage 04/07/22 04/13/22 Unknown History carbidopa 25 mg-levodopa 100 mg 2 tab PO TID 04/07/22 04/13/22 Unknown History tablet cholecalciferol (vitamin D3) 50 6,000 unit PO DAILY 04/07/22 04/13/22 Unknown History mcg (2,000 unit) capsule (Vitamin D3) clonidine HCl 0.3 mg tablet 0.3 mg PO Q8H PRN systolic bp >160 04/07/22 04/13/22 Unknown History clopidogrel 75 mg tablet (Plavix) 75 mg PO QPM 04/07/22 04/13/22 Unknown History cyclobenzaprine 5 mg tablet 5 mg PO Q8H PRN Muscle Spasm 04/07/22 04/13/22 Unknown History diphenhydramine HCl 25 mg capsule 25 mg PO BEDTIME PRN Itching 04/07/22 04/13/22 Unknown History (Benadryl) fluticasone propionate 115 2 puff inhalation BID 04/07/22 04/13/22 Unknown History mcg-salmeterol 21 mcg/actuation HFA inhaler (Advair HFA) furosemide 40 mg tablet (Lasix) 40 mg PO BID 04/07/22 04/13/22 Unknown History gabapentin 100 mg capsule 100 mg PO TID 04/07/22 04/13/22 Unknown History hydroxyzine HCl 25 mg tablet 25 mg PO Q8H PRN Itching 04/07/22 04/13/22 Unknown History hydroxyzine pamoate 25 mg capsule 25 mg PO QPM 04/07/22 04/13/22 Unknown History insulin aspart U-100 100 unit/mL See Rx Instructions .Route .COMPLEX 04/07/22 04/13/22 Unknown History (3 mL) subcutaneous pen (Novolog Flexpen U-100 Insulin aspart) insulin glargine 100 unit/mL (3 40 unit SUBCUT DAILY@06 04/07/22 04/13/22 Unknown History mL) subcutaneous pen (Lantus Solostar U-100 Insulin) ipratropium 0.5 mg-albuterol 3 mg 3 ml inhalation Q6H PRN Cough 04/07/22 04/13/22 Unknown History (2.5 mg base)/3 mL nebulization soln loperamide 2 mg tablet (Imodium 2 mg PO Q6H PRN Loose Stool 04/07/22 04/13/22 Unknown History A-D) losartan 50 mg tablet 50 mg PO BEDTIME 04/07/22 04/13/22 Unknown History menthol 4 % topical gel (Biofreeze See Rx Instructions .Route .COMPLEX 04/07/22 04/13/22 Unknown History (menthol)) metolazone 5 mg tablet 5 mg PO QAM 04/07/22 04/13/22 Unknown History metoprolol tartrate 100 mg tablet 100 mg PO BID 04/07/22 04/13/22 Unknown History mirtazapine 30 mg tablet 30 mg PO BEDTIME@04/07/22 04/13/22 Unknown History neomycin-bacitracn Zn-polymyx 3.5 See Rx Instructions .Route .COMPLEX 04/07/22 04/13/22 Unknown History mg-400 unit-5,000 unit/gram top oint (Neosporin ([id number])) ondansetron HCl 4 mg tablet 4 mg PO Q8H PRN Nausea And Vomiting 04/07/22 04/13/22 Unknown History oxycodone 7.5 mg tablet,oral ONLY 7.5 mg PO Q6H PRN Pain 04/07/22 04/13/22 Unknown History (not for feeding tubes) promethazine-DM 6.25 mg-15 mg/5 mL 5 ml PO Q4H PRN Cough 04/07/22 04/13/22 Unknown History oral syrup ropinirole 0.5 mg tablet 0.5 mg PO QPM 04/07/22 04/13/22 Unknown History sertraline 50 mg tablet 50 mg PO DAILY 04/07/22 04/13/22 Unknown History simvastatin 40 mg tablet 40 mg PO BEDTIME@21 04/07/22 04/13/22 Unknown History solifenacin 5 mg tablet 5 mg PO QAM 04/07/22 04/13/22 Unknown History thyroid (pork) 90 mg tablet 90 mg PO DAILY 04/07/22 04/13/22 Unknown History ([place] Thyroid) vitamin B complex and vitamin C 1 cap PO QPM 04/07/22 04/13/22 Unknown History no.20-folic acid 1 mg capsule (Renal Caps) cefdinir 300 mg capsule See Rx Instructions .Route 04/08/22 04/13/22 Unknown Rx .COMPLEX 6 days #5 caps linezolid 600 mg tablet 600 mg PO BID@04/13/22 04/13/22 Unknown History oseltamivir 30 mg capsule 30 mg PO .ONCE ON Sunday04/13/22 04/13/22 04/11/22 History prednisone 20 mg tablet 40 mg PO DAILY 04/13/22 04/13/22 Unknown History Allergies Allergy/AdvReac Type Severity Reaction Status Date / Time sulfamethoxazole Allergy Rash Verified 04/13/22 08:41 [From ] trimethoprim [From Septra] Allergy Rash Verified 04/13/22 08:41 morphine AdvReac Personality Verified 12/26/21 16:26 Change pregabalin [From Lyrica] AdvReac Loopy/Unste Verified 12/26/21 16:26 anoop Current Medications Generic Name Dose Route Start Last Admin Trade Name Freq PRN Reason Stop Dose Admin Albuterol/Ipratropium 3 ml 04/12/22 20:59 04/13/22 08:03 Ipratropium-Albuterol 3 Ml Neb INHALATION 3 ml Q6H PRN Administration SHORTNESS OF BREATH Apixaban 5 mg 04/13/22 09:00 04/13/22 08:14 Apixaban 5 Mg Tablet PO 5 mg BID BILLIE Administration Budesonide 0.5 mg 04/13/22 09:00 04/13/22 08:03 Budesonide 0.5 Mg/2 Ml Neb INHALATION 0.5 mg BID.RESPIRATORY BILLIE Administration Carbidopa/Levodopa 2 each 04/12/22 21:00 04/13/22 08:14 Carbidopa-Levodopa 25-100mg Tablet PO 2 each TID BILLIE Administration Furosemide 40 mg 04/13/22 09:00 04/13/22 08:15 Furosemide 40 Mg Tablet PO 40 mg BID BILLIE Administration Gabapentin 100 mg 04/12/22 21:00 04/13/22 08:14 Gabapentin 100 Mg Capsule PO 100 mg TID BILLIE Administration Insulin Glargine 40 unit 04/13/22 09:00 04/13/22 08:15 Insulin Glargine 100 Units/1 Ml SUBCUT 40 unit DAILY BILLIE Administration Insulin Human Lispro 0 unit 04/13/22 12:00 04/13/22 12:31 Insulin Lispro 100 Unit/1 Ml SUBCUT 6 unit WM&BEDTIME BILLIE Administration Protocol Losartan Potassium 50 mg 04/12/22 21:00 04/12/22 22:01 Losartan 50 Mg Tablet PO 50 mg BEDTIME BILLIE Administration Metoprolol Tartrate 100 mg 04/13/22 09:00 04/13/22 08:14 Metoprolol Tartrate 50 Mg Tablet PO 100 mg BID BILLIE Administration Mirtazapine 30 mg 04/12/22 21:00 04/12/22 22:02 Mirtazapine 30 Mg Tablet PO 30 mg BEDTIME BILLIE Administration Oxycodone/Acetaminophen 1 tab 04/12/22 21:49 04/13/22 13:48 Oxycodone-Apap 5-325 Mg Tablet PO 1 tab Q6H PRN Administration for moderate pain Prednisone 20 mg 04/13/22 09:00 04/13/22 08:13 Prednisone 20 Mg Tablet PO 20 mg DAILY BILLIE Administration Thyroid 90 mg 04/13/22 09:00 04/13/22 08:13 Thyroid 60 Mg Tablet PO 90 mg DAILY BILLIE Administration PFSH Acute PFSH: Medical History (Updated 04/13/22 @ 14:00 by Nic Pack MD) Anemia in chronic illness Chronic insomnia Chronic renal insufficiency COPD (chronic obstructive pulmonary disease) Diabetes mellitus type 2, insulin dependent Diabetic neuropathy ESRD (end stage renal disease) Fibromyalgia History of CVA (cerebrovascular accident) Hyperlipemia Hypertension Hyponatremia Hypothyroidism Influenza A Lumbar disc disease with radiculopathy Neuropathy Parkinson disease Post laminectomy syndrome Sciatica associated with disorder of lumbosacral spine Stage 4 chronic renal impairment associated with type 2 diabetes mellitus Uncontrolled insulin dependent diabetes mellitus Vitamin D deficiency Surgical History (Updated 04/13/22 @ 14:00 by Nic Pack MD) History of colonoscopy 2020 Hx of cholecystectomy Hx of foot surgery Hx of hysterectomy S/P dialysis catheter insertion Family History Father CAD (coronary artery disease) Mother CAD (coronary artery disease) Diabetes Grandfather CAD (coronary artery disease) Diabetes Social History Smoking and tobacco status: former smoker Second hand smoke exposure: No Alcohol intake: current Alcohol intake frequency: holidays/special occasions only Alcohol type: hard liquor History of recent travel: No Vitals/I&O/Wt Last Vital Signs Temp 97.6 F 04/13/22 12:00 Pulse 86 04/13/22 12:00 Resp 18 04/13/22 13:48 BP 181/74 04/13/22 12:00 Pulse Ox 98 04/13/22 12:00 O2 Del Method 04/13/22 12:00 04/13/22 04/13/22 04/13/22 06:59 14:59 22:59 Intake Total 240 / 490 840 / 840 Output Total 300 / 300 Balance -60 / 190 840 / 840 Weight last 48 hrs Weight 115.575 kg Weight 127.006 kg Physical Exam Narrative: Patient is awake alert, no acute distress Neck supple Clear to auscultation per report S1-S2 regular rate and rhythm per report No pedal edema Data 04/13/22 03:48 04/13/22 03:48 Micro: Microbiology 04/12/22 19:10 Blood Culture - Preliminary Blood SPECIMEN COLLECTED 04/12/22 19:21 Blood Culture - Preliminary Blood SPECIMEN COLLECTED A&P Assessment and plan (1) ESRD (end stage renal disease): Plan 1. End-stage renal disease: On dialysis per [facility] schedule, status post dialysis on Sunday and will plan on next dialysis on Sunday 2. Hypertension: Blood pressure stable 3. Anemia: Continue to monitor, transfuse if hemoglobin less than 7 4. MRSA pneumonia: Repeat blood cultures pending, clinically she feels better. History of A. fib on chronic anticoagulation Diabetes History of Parkinson's disease Patient evaluated using audiovisual cart. 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
[2022-04-13] MEDS: hyDRALAzine 25 mg Tablet PO ×2 (15:05→20:08)
[2022-04-13 17:12] LABS: Glucose Point of Care 216 mg/dL (70-110)
[2022-04-13] MEDS: ropinirole 1 mg Tablet 0.5 MG PO (17:52)
[2022-04-13] MEDS: ferrous gluconate 324 mg Tablet PO (17:52)
[2022-04-13] MEDS: b-complex-vitamin c Tablet 1 EACH PO (17:53)
[2022-04-13] MEDS: hyDROXYzine 25 mg Capsule PO (17:55)
[2022-04-13] MEDS: fluticasone nasal spray 16gm Btl 1 SPRAY NASAL (17:55)
[2022-04-13] MEDS: clopidogrel 75 mg Tablet PO (17:55)
[2022-04-13] MEDS: potassium chloride ER 20 mEq Tablet 40 MEQ PO (18:53)
[2022-04-13] MEDS: vancomycin 1,500 MG/300 ML PIGGYBACK 200 MG IV (18:58)
[2022-04-13] MEDS: mirtazapine 30 mg Tablet PO (20:08)
[2022-04-13] MEDS: atorvastatin 40 mg Tablet PO (20:08)
[2022-04-13] MEDS: losartan 50 mg Tablet PO (20:08)
[2022-04-13 20:58] LABS: Glucose Point of Care 121 mg/dL (70-110)
[2022-04-14] VITALS (11 sets, daily range): BP systolic 112–184; BP diastolic 65–85; PULSE 78–102; RESP 16–26; TEMP 36.3–36.7; O2SAT 95–99
[2022-04-14 04:37] LABS: Basophils # 0.1 10^3/uL (0.0-0.1); Basophils % 0.4 %; Eosinophils # 0.2 10^3/uL (0.0-0.8); Eosinophils % 1.6 %; Hematocrit 31.9 % (37.0-47.0); Hemoglobin 9.8 g/dL (11.5-15.3); Lymphocytes # 2.6 10^3/uL (0.8-4.8); Lymphocytes % 21.7 %; Mean Corpuscular HGB Conc 30.7 g/dL (30.0-36.0); Mean Corpuscular Hemoglobin 31.3 pg (28.0-34.0); Mean Corpuscular Volume 101.9 fl (81-99); Mean Platelet Volume 9.9 fL (7.4-10.4); Monocytes # 0.9 10^3/uL (0.2-0.9); Monocytes % 7.9 %; Neutrophils # 7.23 10^3/uL (1.8-7.7); Neutrophils % 61.2 %; Nucleated Red Blood Cells % 0.3 %; Platelet Count 365 10^3/cmm (130-400); Red Blood Count 3.13 10^6/uL (4.1-5.3); Red Cell Distribution Width 15.9 % (12.1-15.1); White Blood Count 11.8 10^3/uL (4.0-10.0)
[2022-04-14 04:49] LABS: Estmated Average Glucose 148; Hemoglobin A1C 6.8 % (4.0-6.0)
[2022-04-14 05:04] LABS: Alanine Aminotransferase < 5 U/L (0-33); Alkaline Phosphatase 75 U/L (35-105); Aspartate Amino Transferase 11 U/L (0-32); Blood Urea Nitrogen 33 mg/dL (8-23); Calcium 7.8 mg/dL (8.5-10.5); Carbon Dioxide 27 mmol/L (22-29); Chloride 102 mmol/L (98-107); Chol HDL Ratio 3.18 mg/dL (0.0-4.40); Cholesterol 108 mg/dL (0-200); Globulin 3.6 g/dL (1.3-4.6); Glucose 100 mg/dL (65-115); HDL Cholesterol 34 mg/dL (60-100); LDL Cholesterol Calculated 30 mg/dL (50-129); Osmolality Calculated 303 mOsm/kg (285-295); Sodium 143 mmol/L (136-145); Total Bilirubin 0.4 mg/dL (0.15-1.2); Total Protein 6.6 g/dL (6.6-8.7); Triglycerides 218 mg/dL (0-150); VLDL Cholestrol Calculation 44 mg/dL (0-30)
[2022-04-14 06:15] LABS: Glucose Point of Care 144 mg/dL (70-110)
[2022-04-14] MEDS: ipratropium-albuterol 3 mL Neb INHALATION (08:22)
[2022-04-14] MEDS: budesonide 0.5 mg/2 mL Neb INHALATION (08:22)
[2022-04-14] MEDS: ferrous gluconate 324 mg Tablet PO ×2 (09:36→19:17)
[2022-04-14] MEDS: insulin lispro 100 unit/1 mL SUBCUT ×3 (09:37→19:26)
[2022-04-14] MEDS: fluticasone nasal spray 16gm Btl 1 SPRAY NASAL ×2 (09:38→19:25)
[2022-04-14] MEDS: carbidopa-levodopa 25-100mg Tablet 2 EACH PO ×3 (09:38→20:20)
[2022-04-14] MEDS: apixaban 5 mg Tablet PO ×2 (09:38→19:18)
[2022-04-14] MEDS: sertraline 50 mg Tablet PO (09:39)
[2022-04-14] MEDS: predniSONE 20 mg Tablet PO (09:39)
[2022-04-14] MEDS: FUROsemide 40 mg Tablet PO ×2 (09:39→19:17)
[2022-04-14] MEDS: gabapentin 100 mg Capsule PO ×3 (09:39→20:21)
[2022-04-14] MEDS: metoprolol tartrate 50 mg Tablet 100 MG PO ×2 (09:40→19:15)
[2022-04-14] MEDS: hyDRALAzine 25 mg Tablet PO ×3 (09:57→20:21)
[2022-04-14] MEDS: insulin glargine 100 units/1 mL 40 UNIT SUBCUT (09:58)
[2022-04-14] MEDS: thyroid 60 mg Tablet 90 MG PO (10:21)
[2022-04-14 10:52] LABS: Glucose Point of Care 262 mg/dL (70-110)
--- NOTE | 2022-04-14 12:52 | PM.PN ---
Subjective Subjective: No acute events overnight. Patient has remained hemodynamically stable and afebrile. Blood pressure is better controlled. Going for dialysis today. Complaining of worsening of cough today. Postnasal drip has remained the same. Vitals/I&O/Wt Last Vital Signs Temp 97.8 F 04/14/22 11:53 Pulse 87 04/14/22 11:53 Resp 17 04/14/22 11:53 BP 168/84 04/14/22 11:53 Pulse Ox 96 04/14/22 11:53 O2 Del Method 04/14/22 11:53 04/13/22 04/14/22 04/14/22 22:59 06:59 14:59 Intake Total 420 / 1260 600 / 1860 120 / 120 Output Total 300 / 300 Balance 120 / 960 600 / 1560 120 / 120 Weight last 48 hrs Weight 115.802 kg Weight 115.575 kg Weight 127.006 kg Physical Exam Narrative: General: No acute distress, AO x3, morbidly obese, on room air, HEENT: PERRLA, pupils bilaterally equal and reactive Chest: Normal vesicular breath sounds, occasional rhonchi present overall over the lung lynn, port present without any discharge, equal good air entry bilaterally CVS: S1-S2 regular, no murmurs, no tachycardia, no gallops, no rubs Abdomen: Soft, nontender, no organomegaly, bowel sounds present Neuro: No focal deficits, no facial deformity, AO x3, power 5/5 in all limbs Data 04/14/22 03:52 04/14/22 03:52 Micro: Microbiology 04/12/22 19:10 Blood Culture - Preliminary Blood NEGATIVE TO DATE 04/12/22 19:21 Blood Culture - Preliminary Blood NEGATIVE TO DATE A&P Assessment and plan (1) MRSA bacteremia: With history of recent MRSA pneumonia. Patient does have a port to which she gets her dialysis. Patient also has a history of Charcot foot for which she reportedly is getting antibiotics and wound care as an outpatient for infection for last 4 weeks. Repeat blood cultures sent in the ER yesterday. Continue vancomycin for now. Check echocardiogram to rule out infective endocarditis. Given history of port in place through which patient gets dialysis patient would most likely need at least 6 weeks of IV antibiotics with dialysis going forward after first negative blood culture. Will consult ID. (2) ESRD (end stage renal disease): Nephrology consulted on admission. Get dialysis Sunday, Sunday, Sunday. (3) Diarrhea: On antibiotics for last 4 weeks orally for Charcot's foot infection. Patient is not aware what kind of antibiotic. Check stool for C. difficile. (4) Pneumonia: On room air. Seems to be recovering. History of MRSA pneumonia recently. Already on vancomycin. We will continue to monitor. Oxygen supplementation keeping saturation over 90%. DuoNebs as needed. Will start on Flonase. Continue 20 mg of prednisone overnight. Will taper quickly within next 2 to 3 days. (5) Charcot's joint of left foot: Will consult podiatry to rule out Charcot's foot being the underlying cause of infection. CRP mildly elevated. We will hold off on getting CT or MRI for now given Charcot's foot. (6) Uncontrolled insulin dependent diabetes mellitus: Continue home dose of Lantus. For sliding scale at moderate dose protocol before meals and at bedtime. Check A1c. (7) Hypertension: Goal blood pressure less than 140/90 mmHg. Continue with home dose of metoprolol, losartan and clonidine as needed. Add hydralazine 25 mg 4 times daily. Will uptitrate as per goal blood pressures. (8) S/P dialysis catheter insertion: (9) Iron deficiency anemia: Continue with oral iron supplementation. Check vitamin B12 folate levels. (10) Neuropathy: Plan Full code. Renal dialysis diet. Heparin 5000 every 12 hourly. Protonix for PUD prophylaxis. Plan for the day: Dialysis today. Continued IV antibiotics. Continue to follow-up blood cultures. Echocardiogram negative for vegetation. Appreciate ID recommendations. Add loratadine daily for postnasal drip along with Flonase. Wean down prednisone to 10 mg oral daily. Continue with hydralazine 25 mg 3 times daily along with his antihypertensives. Goal blood pressure less than 140/90 mmHg. Will uptitrate accordingly. Attestations Medical Necessity Statement*: Requires further hospitalization for management of MRSA bacteremia, ESRD on hemodialysis Time Spent in Patient Care: Greater than 35 minutes Coding Level of Care Code Acute Travel Med Surg Rn for [facility] Diagnoses MRSA bacteremia R78.81; B95.62 ESRD (end stage renal disease) N18.6 Diarrhea R19.7 Pneumonia J18.9 Charcot's joint of left foot M14.672 Uncontrolled insulin dependent diabetes mellitus Hypertension I10 S/P dialysis catheter insertion Z95.828; Z99.2 Iron deficiency anemia D50.9 Neuropathy G62.9
--- NOTE | 2022-04-14 13:38 | PM.CONSULT ---
Providers/Reason For Consult Consulting Physician/Specialty*: Guero Ash D.P.M. Reason for Consult*: Diabetic foot ulcer, left Attending Physician: Nic Pack MD Primary Care Provider: MILAGRO Kent History of Present Illness History of Present Illness Meghna Chaudhari is a 77 year old female admitted to the hospital service for bacteremia. Patient has extensive past medical history including end-stage renal disease on dialysis, systolic CHF, history of CVA and on anticoagulants, history of PE, type 2 diabetes insulin-dependent. Charcot arthropathy to the left foot. I was consulted for evaluation of a wound at the patient's left foot. Patient states that the wound has waxed and waned, since her stroke arthropathy and developmental rocker-bottom foot she has been prone developing calluses that transition to a wound. Her current wound has been present since December 2021 and is being managed at wound care. Per her report the wound is been stable and improving with wound care modalities. Review of Systems General: Reports: 10 or more systems reviewed and unremarkable except in HPI and below Const: Denies: fever(s) or chills Eyes: Denies: change in vision Card: Denies: chest pain or palpitations Resp: Denies: dyspnea or productive cough GI: Denies: abdominal pain, nausea or vomiting : Denies: flank pain Musc: Reports: extremity swelling, joint stiffness and deformity Skin/Breast: Reports: erythema, sores, changes in skin color, dry skin, nail changes and change in hair Neuro: Reports: numbness in extremities, sensory changes and difficulty walking Psych: Denies: suicidal ideation Endo: Denies: change in body appearance Tank/Lymph: Denies: tender lymph nodes Medications/Allergies Home Medications Medication Instructions Recorded Confirmed Last Taken Type acetaminophen 500 mg tablet 1,000 mg PO Q6H PRN Pain 04/07/22 04/13/22 Unknown History albuterol sulfate 2.5 mg/3 mL 2.5 mg inhalation Q6H PRN 04/07/22 04/13/22 Unknown History (0.083 %) solution for nebulization Shortness Of Breath albuterol sulfate 90 mcg/actuation 2 puff inhalation Q6H PRN Wheezing 04/07/22 04/13/22 Unknown History aerosol inhaler (ProAir HFA) amino acids-protein hydrolysate 15 See Rx Instructions .Route .COMPLEX 12/09/22 12/15/22 Unknown History gram-101 kcal/30 mL oral liquid apixaban 5 mg tablet (Eliquis) 5 mg PO BID 04/07/22 04/13/22 Unknown History benzonatate 100 mg capsule 100 mg PO Q8H PRN Cough 04/07/22 04/13/22 Unknown History bimatoprost 0.01 % eye drops 1 drp ophthalmic (eye) BEDTIME 04/07/22 04/13/22 Unknown History ([place]) budesonide 0.5 mg/2 mL suspension 0.5 mg inhalation Q12H 04/07/22 04/13/22 Unknown History for nebulization calcium alginate 2 X 2 bandage 04/07/22 04/13/22 Unknown History carbidopa 25 mg-levodopa 100 mg 2 tab PO TID 04/07/22 04/13/22 Unknown History tablet cholecalciferol (vitamin D3) 50 6,000 unit PO DAILY 04/07/22 04/13/22 Unknown History mcg (2,000 unit) capsule (Vitamin D3) clonidine HCl 0.3 mg tablet 0.3 mg PO Q8H PRN systolic bp >160 04/07/22 04/13/22 Unknown History clopidogrel 75 mg tablet (Plavix) 75 mg PO QPM 04/07/22 04/13/22 Unknown History cyclobenzaprine 5 mg tablet 5 mg PO Q8H PRN Muscle Spasm 04/07/22 04/13/22 Unknown History diphenhydramine HCl 25 mg capsule 25 mg PO BEDTIME PRN Itching 04/07/22 04/13/22 Unknown History (Benadryl) fluticasone propionate 115 2 puff inhalation BID 04/07/22 04/13/22 Unknown History mcg-salmeterol 21 mcg/actuation HFA inhaler (Advair HFA) furosemide 40 mg tablet (Lasix) 40 mg PO BID 04/07/22 04/13/22 Unknown History gabapentin 100 mg capsule 100 mg PO TID 04/07/22 04/13/22 Unknown History hydroxyzine HCl 25 mg tablet 25 mg PO Q8H PRN Itching 04/07/22 04/13/22 Unknown History hydroxyzine pamoate 25 mg capsule 25 mg PO QPM 04/07/22 04/13/22 Unknown History insulin aspart U-100 100 unit/mL See Rx Instructions .Route .COMPLEX 04/07/22 04/13/22 Unknown History (3 mL) subcutaneous pen (Novolog Flexpen U-100 Insulin aspart) insulin glargine 100 unit/mL (3 40 unit SUBCUT DAILY@06 04/07/22 04/13/22 Unknown History mL) subcutaneous pen (Lantus Solostar U-100 Insulin) ipratropium 0.5 mg-albuterol 3 mg 3 ml inhalation Q6H PRN Cough 04/07/22 04/13/22 Unknown History (2.5 mg base)/3 mL nebulization soln loperamide 2 mg tablet (Imodium 2 mg PO Q6H PRN Loose Stool 04/07/22 04/13/22 Unknown History A-D) losartan 50 mg tablet 50 mg PO BEDTIME 04/07/22 04/13/22 Unknown History menthol 4 % topical gel (Biofreeze See Rx Instructions .Route .COMPLEX 04/07/22 04/13/22 Unknown History (menthol)) metolazone 5 mg tablet 5 mg PO QAM 04/07/22 04/13/22 Unknown History metoprolol tartrate 100 mg tablet 100 mg PO BID 04/07/22 04/13/22 Unknown History mirtazapine 30 mg tablet 30 mg PO BEDTIME@21 04/07/22 04/13/22 Unknown History neomycin-bacitracn Zn-polymyx 3.5 See Rx Instructions .Route .COMPLEX 04/07/22 04/13/22 Unknown History mg-400 unit-5,000 unit/gram top oint (Neosporin ([id number])) ondansetron HCl 4 mg tablet 4 mg PO Q8H PRN Nausea And Vomiting 04/07/22 04/13/22 Unknown History oxycodone 7.5 mg tablet,oral ONLY 7.5 mg PO Q6H PRN Pain 04/07/22 04/13/22 Unknown History (not for feeding tubes) promethazine-DM 6.25 mg-15 mg/5 mL 5 ml PO Q4H PRN Cough 04/07/22 04/13/22 Unknown History oral syrup ropinirole 0.5 mg tablet 0.5 mg PO QPM 04/07/22 04/13/22 Unknown History sertraline 50 mg tablet 50 mg PO DAILY 04/07/22 04/13/22 Unknown History simvastatin 40 mg tablet 40 mg PO BEDTIME@21 04/07/22 04/13/22 Unknown History solifenacin 5 mg tablet 5 mg PO QAM 04/07/22 04/13/22 Unknown History thyroid (pork) 90 mg tablet 90 mg PO DAILY 04/07/22 04/13/22 Unknown History ([place] Thyroid) vitamin B complex and vitamin C 1 cap PO QPM 04/07/22 04/13/22 Unknown History no.20-folic acid 1 mg capsule (Renal Caps) cefdinir 300 mg capsule See Rx Instructions .Route 04/08/22 04/13/22 Unknown Rx .COMPLEX 6 days #5 caps linezolid 600 mg tablet 600 mg PO BID@,04/13/22 04/13/22 Unknown History oseltamivir 30 mg capsule 30 mg PO .ONCE ON Sunday04/13/22 04/13/22 04/11/22 History prednisone 20 mg tablet 40 mg PO DAILY 04/13/22 04/13/22 Unknown History Allergies Allergy/AdvReac Type Severity Reaction Status Date / Time sulfamethoxazole Allergy Rash Verified 04/13/22 08:41 [From Septra] trimethoprim [From Septra] Allergy Rash Verified 04/13/22 08:41 morphine AdvReac Personality Verified 12/26/21 16:26 Change pregabalin [From Lyrica] AdvReac Loopy/Unste Verified 12/26/21 16:26 anoop Current Medications Generic Name Dose Route Start Last Admin Trade Name Haoq PRN Reason Stop Dose Admin Albuterol/Ipratropium 3 ml 04/12/22 20:59 04/14/22 08:22 Ipratropium-Albuterol 3 Ml Neb INHALATION 3 ml Q6H PRN Administration SHORTNESS OF BREATH Apixaban 5 mg 04/13/22 09:00 04/14/22 09:38 Apixaban 5 Mg Tablet PO 5 mg BID BILLIE Administration Atorvastatin Calcium 40 mg 04/13/22 21:00 04/13/22 20:08 Atorvastatin 40 Mg Tablet PO 40 mg BEDTIME@21 BILLIE Administration Budesonide 0.5 mg 04/13/22 09:00 04/14/22 08:22 Budesonide 0.5 Mg/2 Ml Neb INHALATION 0.5 mg BID.RESPIRATORY BILLIE Administration Carbidopa/Levodopa 2 each 04/12/22 21:00 04/14/22 09:38 Carbidopa-Levodopa 25-100mg Tablet PO 2 each TID BILLIE Administration Clopidogrel Bisulfate 75 mg 04/13/22 18:00 04/13/22 17:55 Clopidogrel 75 Mg Tablet PO 75 mg QPM BILLIE Administration Ferrous Gluconate 324 mg 04/13/22 18:00 04/14/22 09:36 Ferrous Gluconate 324 Mg Tablet PO 324 mg BIDWM BILLIE Administration Fluticasone Propionate 1 spray 04/13/22 18:00 04/14/22 09:38 Fluticasone Nasal [place] 16gm Btl NASAL 1 spray BID BILLIE Administration Furosemide 40 mg 04/13/22 09:00 04/14/22 09:39 Furosemide 40 Mg Tablet PO 40 mg BID BILLIE Administration Gabapentin 100 mg 04/12/22 21:00 04/14/22 09:39 Gabapentin 100 Mg Capsule PO 100 mg TID BILLIE Administration Hydralazine HCl 25 mg 04/13/22 15:00 04/14/22 09:57 Hydralazine 25 Mg Tablet PO 25 mg TID BILLIE Administration Hydroxyzine Pamoate 25 mg 04/13/22 18:00 04/13/22 17:55 Hydroxyzine 25 Mg Capsule PO 25 mg QPM BILLIE Administration Vancomycin/PEG/NADA/Lysine/Water 1,500 mg in 300 mls @ 200 mls/hr 04/13/22 19:30 04/13/22 20:28 Vancocin IV Infused Q24H BILLIE Infusion Insulin Glargine 40 unit 04/13/22 09:00 04/14/22 09:58 Insulin Glargine 100 Units/1 Ml SUBCUT 40 unit DAILY BILLIE Administration Insulin Human Lispro 0 unit 04/13/22 12:00 04/14/22 12:13 Insulin Lispro 100 Unit/1 Ml SUBCUT 10 unit WM&BEDTIME BILLIE Administration Protocol Losartan Potassium 50 mg 04/12/22 21:00 04/13/22 20:08 Losartan 50 Mg Tablet PO 50 mg BEDTIME BILLIE Administration Metoprolol Tartrate 100 mg 04/13/22 09:00 04/14/22 09:40 Metoprolol Tartrate 50 Mg Tablet PO 100 mg BID BILLIE Administration Mirtazapine 30 mg 04/12/22 21:00 04/13/22 20:08 Mirtazapine 30 Mg Tablet PO 30 mg BEDTIME BILLIE Administration Multivitamins 1 each 04/13/22 18:00 04/13/22 17:53 V-Nhuzjva-Zuolmwo C Tablet PO 1 each QPM BILLIE Administration Non-Formulary Medication 5 mg 04/14/22 06:00 04/14/22 05:13 Solifenacin PO Not Given QAM BILLIE Oxycodone/Acetaminophen 1 tab 04/12/22 21:49 04/13/22 21:43 Oxycodone-Apap 5-325 Mg Tablet PO 1 tab Q6H PRN Administration for moderate pain Ropinirole HCl 0.5 mg 04/13/22 18:00 04/13/22 17:52 Ropinirole 1 Mg Tablet PO 0.5 mg QPM BILLIE Administration Sertraline HCl 50 mg 04/14/22 09:00 04/14/22 09:39 Sertraline 50 Mg Tablet PO 50 mg DAILY BILLIE Administration Thyroid 90 mg 04/13/22 09:00 04/14/22 10:21 Thyroid 60 Mg Tablet PO 90 mg DAILY BILLIE Administration PFSH Acute PFSH: Medical History Anemia in chronic illness Chronic insomnia Chronic renal insufficiency COPD (chronic obstructive pulmonary disease) Diabetes mellitus type 2, insulin dependent Diabetic neuropathy ESRD (end stage renal disease) Fibromyalgia History of CVA (cerebrovascular accident) Hyperlipemia Hypertension Hyponatremia Hypothyroidism Influenza A Lumbar disc disease with radiculopathy Neuropathy Parkinson disease Post laminectomy syndrome Sciatica associated with disorder of lumbosacral spine Stage 4 chronic renal impairment associated with type 2 diabetes mellitus Uncontrolled insulin dependent diabetes mellitus Vitamin D deficiency Surgical History History of colonoscopy 2020 Hx of cholecystectomy Hx of foot surgery Hx of hysterectomy S/P dialysis catheter insertion Family History Father CAD (coronary artery disease) Mother CAD (coronary artery disease) Diabetes Grandfather CAD (coronary artery disease) Diabetes Social History Smoking and tobacco status: former smoker Second hand smoke exposure: No Alcohol intake: current Alcohol intake frequency: holidays/special occasions only Alcohol type: hard liquor History of recent travel: No Vitals/I&O/Wt Last Vital Signs Temp 97.8 F 04/14/22 11:53 Pulse 87 04/14/22 11:53 Resp 17 04/14/22 11:53 BP 168/84 04/14/22 11:53 Pulse Ox 96 04/14/22 11:53 O2 Del Method 04/14/22 11:53 04/13/22 04/14/22 04/14/22 22:59 06:59 14:59 Intake Total 420 / 1260 600 / 1860 360 / 360 Output Total 300 / 300 Balance 120 / 960 600 / 1560 360 / 360 Weight last 48 hrs Weight 255 lb 4.8 oz Weight 254 lb 12.8 oz Weight 280 lb Physical Exam Narrative: GENERAL: Patient is alert and oriented ?3 and in no acute distress. The following is a focused bilateral lower extremity exam. VASCULAR: Dorsalis pedis palpable bilaterally, posterior tibial arteries palpable. Capillary refill time less than 3 seconds to the distal hallux left foot. Calf is supple and nontender proximally and distally. Pitting edema to the bilateral lower extremity. NEUROLOGICAL: Protective sensation intact 0/10 sites, tested with Dyer Maricarmen monofilament to bilateral feet. DERMATOLOGICAL: Grade 2 ulceration to the left plantar foot has granular base and epithelialized margin, no periwound erythema, there is no purulent drainage or malodor from the wound. Wound is fully granular. No other wounds to the bilateral lower extremity. Fibrosing with chronic skin pigmentation changes to the bilateral legs in a gaiter distribution. MUSCULOSKELETAL: Rocker-bottom foot deformity to the left. No pain to palpation secondary to neuropathy at the left foot, no soft tissue crepitus. 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 Her left foot wound is stable without acute signs of infection or deep structures exposed. Recommend once daily dressing changes with silver alginate, sterile gauze and rolled gauze with tape. I advised patient to utilize offloading boot when weightbearing. She has been showering at home with her left foot uncovered, I advised patient that this puts her at increased risk for infection, advised patient to keep her left foot clean and dry even when showering. Will continue once daily dressing changes during this hospitalization follow-up with wound care at discharge, currently has home health set up. Coding Level of Care Code Acute [employer] Supervisor for Dominick Baca Diagnoses Diabetic peripheral neuropathy associated with type 2 diabetes mellitus E11.42 Charcot's joint of left foot M14.672 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 L97.422
--- NOTE | 2022-04-14 13:57 | PC.NURSE ---
dr alan come to see pt ..looked at wound on bottom of lt foot
[2022-04-14] MEDS: loratadine 10 mg Tablet PO (14:08)
[2022-04-14] MEDS: oxyCODONE-APAP 5-325 mg Tablet 1 TAB PO ×2 (14:09→21:19)
--- NOTE | 2022-04-14 16:42 | PC.NURSE ---
1515 pt off med surg floor to dialysisi
--- NOTE | 2022-04-14 17:52 | PM.PN ---
Subjective Subjective: GETTING HD Medications: Reviewed: Yes Vitals/I&O/Wt Last Vital Signs Temp 98.1 F 04/14/22 16:13 Pulse 98 04/14/22 16:13 Resp 16 04/14/22 16:13 BP 132/85 04/14/22 16:13 Pulse Ox 97 04/14/22 15:19 O2 Del Method 04/14/22 15:19 04/14/22 04/14/22 04/14/22 06:59 14:59 22:59 Intake Total 600 / 1860 360 / 360 Balance 600 / 1560 360 / 360 Weight last 48 hrs Weight 115.802 kg Weight 115.575 kg Physical Exam Narrative: Patient is awake alert, no acute distress Neck supple Clear to auscultation per report S1-S2 regular rate and rhythm per report No pedal edema Data 04/14/22 03:52 04/14/22 03:52 Micro: Microbiology 04/12/22 19:10 Blood Culture - Preliminary Blood NEGATIVE TO DATE 04/12/22 19:21 Blood Culture - Preliminary Blood NEGATIVE TO DATE A&P Assessment and plan (1) ESRD (end stage renal disease): Plan 1. End-stage renal disease: On dialysis per MWF schedule, status post dialysis on Sunday and plan for HD today 2. Hypertension: Blood pressure stable 3. Anemia: Continue to monitor, transfuse if hemoglobin less than 7 4. MRSA pneumonia: Repeat blood cultures pending, clinically she feels better. History of A. fib on chronic anticoagulation Diabetes History of Parkinson's disease Patient evaluated using audiovisual cart. 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
[2022-04-14 19:09] LABS: Glucose Point of Care 165 mg/dL (70-110)
[2022-04-14] MEDS: ropinirole 1 mg Tablet 0.5 MG PO (19:15)
[2022-04-14] MEDS: b-complex-vitamin c Tablet 1 EACH PO (19:16)
[2022-04-14] MEDS: clopidogrel 75 mg Tablet PO (19:17)
[2022-04-14] MEDS: hyDROXYzine 25 mg Capsule PO (19:18)
--- NOTE | 2022-04-14 19:32 | P.CONIM_ITS ---
Providers/Reason For Consult Consulting Physician/Specialty*: Suzy Morgan MD/Infectious Disease Reason for Consult*: Staph bacteremia Attending Physician: Nic Pack MD Primary Care Provider: MILAGRO Kent History of Present Illness History of Present Illness Meghna Chaudhari is a 77 year old female with past medical history of end-stage renal disease, dialysis Sunday, anemia of chronic disease, COPD, CHF, insulin-dependent diabetes mellitus, history of stroke, hyperlipidemia, hypertension, hypothyroidism, Parkinson's disease recently admitted between 04/06-04/08 for Influenza A pneumonia, possible secondary bacterial pneumonia with MRSA (+ respiratory cx), treated with piperacillin tazobactam, vancomycin during the course of admission here alongside of Tamiflu. Discharged with cefdinir and doxycycline, changed to linezolid when culture re turned resistant to tetracyclines. Clinically was improving at the time of discharge. After discharge her blood culture from April 06 was reported positive for MRSA and patient was called back to the hospital. She has been afebrile, hemodynamically stable. Respiratory symptoms are improved. X-ray is showing serial improvement to stability of the chest infiltrate. She continues to undergo dialysis. Her other past history is notable for Charcot's foot, recurrent lower extremity cellulitis. She has been getting wound care and antibiotics as outpatient intermittently for the same. Review of Systems General: Reports: 10 or more systems reviewed and unremarkable except in HPI and below Const: Denies: fever(s), chills or body aches Eyes: Denies: change in vision, blurry vision or photophobia ENMT: Reports: hoarseness; Denies: throat pain, enlarged tonsils, odynophagia or nasal congestion Card: Denies: chest pain, palpitations, irregular heart rhythm, edema, swelling of feet/ankles, lightheadedness, pre-syncope, dyspnea on exertion or orthopnea Resp: Denies: dyspnea, productive cough, non-productive cough, wheezing, stridor, pain on inspiration, change in phlegm color, hemoptysis or chest congestion GI: Denies: abdominal pain, nausea, vomiting, hematemesis, coffee ground emesis, dysphagia, heartburn, diarrhea, constipation, GI cramping, change in stool character, hematochezia or melena : Denies: flank pain, difficulty voiding, dysuria, urinary frequency, urinary urgency, urinary hesitancy or hematuria Musc: Denies: neck pain, back pain, extremity pain, joint swelling, joint warmth or deformity Neuro: Denies: headache(s), numbness in extremities, weakness in extremities, sensory changes, difficulty walking, frequent falls, dizziness, vertigo, behavioral changes, Slurred speech present or seizure-like activity Psych: Denies: anxiety, depression, suicidal ideation or homicidal ideation Endo: Denies: polyuria, polydipsia, tired all the time, cold intolerance or hot flashes Tank/Lymph: Denies: easy bruising or easy bleeding Medications/Allergies Home Medications Medication Instructions Recorded Confirmed Last Taken Type acetaminophen 500 mg tablet 1,000 mg PO Q6H PRN Pain 04/07/22 04/13/22 Unknown History albuterol sulfate 2.5 mg/3 mL 2.5 mg inhalation Q6H PRN 04/07/22 04/13/22 Unknown History (0.083 %) solution for nebulization Shortness Of Breath albuterol sulfate 90 mcg/actuation 2 puff inhalation Q6H PRN Wheezing 04/07/22 04/13/22 Unknown History aerosol inhaler (ProAir HFA) amino acids-protein hydrolysate 15 See Rx Instructions .Route .COMPLEX 04/07/22 04/13/22 Unknown History gram-101 kcal/30 mL oral liquid apixaban 5 mg tablet (Eliquis) 5 mg PO BID 04/07/22 04/13/22 Unknown History benzonatate 100 mg capsule 100 mg PO Q8H PRN Cough 04/07/22 04/13/22 Unknown History bimatoprost 0.01 % eye drops 1 drp ophthalmic (eye) BEDTIME 04/07/22 04/13/22 Unknown History ([place]) budesonide 0.5 mg/2 mL suspension 0.5 mg inhalation Q12H 04/07/22 04/13/22 Unknown History for nebulization calcium alginate 2 X 2 bandage 04/07/22 04/13/22 Unknown History carbidopa 25 mg-levodopa 100 mg 2 tab PO TID 04/07/22 04/13/22 Unknown History tablet cholecalciferol (vitamin D3) 50 6,000 unit PO DAILY 04/07/22 04/13/22 Unknown History mcg (2,000 unit) capsule (Vitamin D3) clonidine HCl 0.3 mg tablet 0.3 mg PO Q8H PRN systolic bp >160 04/07/22 04/13/22 Unknown History clopidogrel 75 mg tablet (Plavix) 75 mg PO QPM 04/07/22 04/13/22 Unknown History cyclobenzaprine 5 mg tablet 5 mg PO Q8H PRN Muscle Spasm 04/07/22 04/13/22 Unknown History diphenhydramine HCl 25 mg capsule 25 mg PO BEDTIME PRN Itching 04/07/22 04/13/22 Unknown History (Benadryl) fluticasone propionate 115 2 puff inhalation BID 04/07/22 04/13/22 Unknown History mcg-salmeterol 21 mcg/actuation HFA inhaler (Advair HFA) furosemide 40 mg tablet (Lasix) 40 mg PO BID 04/07/22 04/13/22 Unknown History gabapentin 100 mg capsule 100 mg PO TID 04/07/22 04/13/22 Unknown History hydroxyzine HCl 25 mg tablet 25 mg PO Q8H PRN Itching 04/07/22 04/13/22 Unknown History hydroxyzine pamoate 25 mg capsule 25 mg PO QPM 04/07/22 04/13/22 Unknown History insulin aspart U-100 100 unit/mL See Rx Instructions .Route .COMPLEX 04/07/22 04/13/22 Unknown History (3 mL) subcutaneous pen (Novolog Flexpen U-100 Insulin aspart) insulin glargine 100 unit/mL (3 40 unit SUBCUT DAILY@06 04/07/22 04/13/22 Unknown History mL) subcutaneous pen (Lantus Solostar U-100 Insulin) ipratropium 0.5 mg-albuterol 3 mg 3 ml inhalation Q6H PRN Cough 04/07/22 04/13/22 Unknown History (2.5 mg base)/3 mL nebulization soln loperamide 2 mg tablet (Imodium 2 mg PO Q6H PRN Loose Stool 04/07/22 04/13/22 Unknown History A-D) losartan 50 mg tablet 50 mg PO BEDTIME 04/07/22 04/13/22 Unknown History menthol 4 % topical gel (Biofreeze See Rx Instructions .Route .COMPLEX 04/07/22 04/13/22 Unknown History (menthol)) metolazone 5 mg tablet 5 mg PO QAM 04/07/22 04/13/22 Unknown History metoprolol tartrate 100 mg tablet 100 mg PO BID 04/07/22 04/13/22 Unknown History mirtazapine 30 mg tablet 30 mg PO BEDTIME@21 04/07/22 04/13/22 Unknown History neomycin-bacitracn Zn-polymyx 3.5 See Rx Instructions .Route .COMPLEX 04/07/22 04/13/22 Unknown History mg-400 unit-5,000 unit/gram top oint (Neosporin (men-cah-ekien)) ondansetron HCl 4 mg tablet 4 mg PO Q8H PRN Nausea And Vomiting 04/07/22 04/13/22 Unknown History oxycodone 7.5 mg tablet,oral ONLY 7.5 mg PO Q6H PRN Pain 04/07/22 04/13/22 Unknown History (not for feeding tubes) promethazine-DM 6.25 mg-15 mg/5 mL 5 ml PO Q4H PRN Cough 04/07/22 04/13/22 Unknown History oral syrup ropinirole 0.5 mg tablet 0.5 mg PO QPM 04/07/22 04/13/22 Unknown History sertraline 50 mg tablet 50 mg PO DAILY 04/07/22 04/13/22 Unknown History simvastatin 40 mg tablet 40 mg PO BEDTIME@21 04/07/22 04/13/22 Unknown History solifenacin 5 mg tablet 5 mg PO QAM 04/07/22 04/13/22 Unknown History thyroid (pork) 90 mg tablet 90 mg PO DAILY 04/07/22 04/13/22 Unknown History ([place] Thyroid) vitamin B complex and vitamin C 1 cap PO QPM 04/07/22 04/13/22 Unknown History no.20-folic acid 1 mg capsule (Renal Caps) cefdinir 300 mg capsule See Rx Instructions .Route 04/08/22 04/13/22 Unknown Rx .COMPLEX 6 days #5 caps linezolid 600 mg tablet 600 mg PO BID@,04/13/22 04/13/22 Unknown History oseltamivir 30 mg capsule 30 mg PO .ONCE ON Sunday04/13/22 04/13/22 04/11/22 History prednisone 20 mg tablet 40 mg PO DAILY 04/13/22 04/13/22 Unknown History Allergies Allergy/AdvReac Type Severity Reaction Status Date / Time sulfamethoxazole Allergy Rash Verified 04/13/22 08:41 [From ] trimethoprim [From ] Allergy Rash Verified 04/13/22 08:41 morphine AdvReac Personality Verified 12/26/21 16:26 Change pregabalin [From Lyrica] AdvReac Loopy/Unste Verified 12/26/21 16:26 anoop Current Medications Generic Name Dose Route Start Last Admin Trade Name Freq PRN Reason Stop Dose Admin Albuterol/Ipratropium 3 ml 04/12/22 20:59 04/14/22 08:22 Ipratropium-Albuterol 3 Ml Neb INHALATION 3 ml Q6H PRN Administration SHORTNESS OF BREATH Apixaban 5 mg 04/13/22 09:00 04/14/22 19:18 Apixaban 5 Mg Tablet PO 5 mg BID BILLIE Administration Atorvastatin Calcium 40 mg 04/13/22 21:00 04/13/22 20:08 Atorvastatin 40 Mg Tablet PO 40 mg BEDTIME@21 BILLIE Administration Budesonide 0.5 mg 04/13/22 09:00 04/14/22 08:22 Budesonide 0.5 Mg/2 Ml Neb INHALATION 0.5 mg BID.RESPIRATORY BILLIE Administration Carbidopa/Levodopa 2 each 04/12/22 21:00 04/14/22 14:09 Carbidopa-Levodopa 25-100mg Tablet PO 2 each TID BILLIE Administration Clopidogrel Bisulfate 75 mg 04/13/22 18:00 04/14/22 19:17 Clopidogrel 75 Mg Tablet PO 75 mg QPM BILLIE Administration Ferrous Gluconate 324 mg 04/13/22 18:00 04/14/22 19:17 Ferrous Gluconate 324 Mg Tablet PO 324 mg BIDWM BILLIE Administration Fluticasone Propionate 1 spray 04/13/22 18:00 04/14/22 19:25 Fluticasone Nasal [place] 16gm Btl NASAL 1 spray BID BILLIE Administration Furosemide 40 mg 04/13/22 09:00 04/14/22 19:17 Furosemide 40 Mg Tablet PO 40 mg BID BILLIE Administration Gabapentin 100 mg 04/12/22 21:00 04/14/22 14:09 Gabapentin 100 Mg Capsule PO 100 mg TID BILLIE Administration Hydralazine HCl 25 mg 04/13/22 15:00 04/14/22 14:09 Hydralazine 25 Mg Tablet PO 25 mg TID BILLIE Administration Hydroxyzine Pamoate 25 mg 04/13/22 18:00 04/14/22 19:18 Hydroxyzine 25 Mg Capsule PO 25 mg QPM BILLIE Administration Vancomycin/PEG/NADA/Lysine/Water 1,500 mg in 300 mls @ 200 mls/hr 04/13/22 19:30 04/13/22 20:28 Vancocin IV Infused Q24H BILLIE Infusion Insulin Glargine 40 unit 04/13/22 09:00 04/14/22 09:58 Insulin Glargine 100 Units/1 Ml SUBCUT 40 unit DAILY BILLIE Administration Insulin Human Lispro 0 unit 04/13/22 12:00 04/14/22 19:26 Insulin Lispro 100 Unit/1 Ml SUBCUT 4 unit WM&BEDTIME BILLIE Administration Protocol Loratadine 10 mg 04/14/22 13:00 04/14/22 14:08 Loratadine 10 Mg Tablet PO 10 mg DAILY BILLIE Administration Losartan Potassium 50 mg 04/12/22 21:00 04/13/22 20:08 Losartan 50 Mg Tablet PO 50 mg BEDTIME BILLIE Administration Metoprolol Tartrate 100 mg 04/13/22 09:00 04/14/22 19:15 Metoprolol Tartrate 50 Mg Tablet PO 100 mg BID BILLIE Administration Mirtazapine 30 mg 04/12/22 21:00 04/13/22 20:08 Mirtazapine 30 Mg Tablet PO 30 mg BEDTIME BILLIE Administration Multivitamins 1 each 04/13/22 18:00 04/14/22 19:16 E-Nphmaww-Mgmsymn C Tablet PO 1 each QPM BILLIE Administration Non-Formulary Medication 5 mg 04/14/22 06:00 04/14/22 05:13 Solifenacin PO Not Given QAM BILLIE Oxycodone/Acetaminophen 1 tab 04/12/22 21:49 04/14/22 14:09 Oxycodone-Apap 5-325 Mg Tablet PO 1 tab Q6H PRN Administration for moderate pain Ropinirole HCl 0.5 mg 04/13/22 18:00 04/14/22 19:15 Ropinirole 1 Mg Tablet PO 0.5 mg QPM BILLIE Administration Sertraline HCl 50 mg 04/14/22 09:00 04/14/22 09:39 Sertraline 50 Mg Tablet PO 50 mg DAILY BILLIE Administration Thyroid 90 mg 04/13/22 09:00 04/14/22 10:21 Thyroid 60 Mg Tablet PO 90 mg DAILY BILLIE Administration PFSH Acute PFSH: Medical History Anemia in chronic illness Chronic insomnia Chronic renal insufficiency COPD (chronic obstructive pulmonary disease) Diabetes mellitus type 2, insulin dependent Diabetic neuropathy ESRD (end stage renal disease) Fibromyalgia History of CVA (cerebrovascular accident) Hyperlipemia Hypertension Hyponatremia Hypothyroidism Influenza A Lumbar disc disease with radiculopathy Neuropathy Parkinson disease Post laminectomy syndrome Sciatica associated with disorder of lumbosacral spine Stage 4 chronic renal impairment associated with type 2 diabetes mellitus Uncontrolled insulin dependent diabetes mellitus Vitamin D deficiency Surgical History History of colonoscopy 2020 Hx of cholecystectomy Hx of foot surgery Hx of hysterectomy S/P dialysis catheter insertion Family History Father CAD (coronary artery disease) Mother CAD (coronary artery disease) Diabetes Grandfather CAD (coronary artery disease) Diabetes Social History Smoking and tobacco status: former smoker Second hand smoke exposure: No Alcohol intake: current Alcohol intake frequency: holidays/special occasions only Alcohol type: hard liquor History of recent travel: No Vitals/I&O/Wt Last Vital Signs Temp 98.1 F 04/14/22 16:13 Pulse 98 04/14/22 16:13 Resp 16 04/14/22 16:13 BP 132/85 04/14/22 16:13 Pulse Ox 97 04/14/22 15:19 O2 Del Method 04/14/22 15:19 04/14/22 04/14/22 04/14/22 06:59 14:59 22:59 Intake Total 600 / 1860 360 / 360 Balance 600 / 1560 360 / 360 Weight last 48 hrs Weight 115.802 kg Weight 115.575 kg Physical Exam Narrative: General: No acute distress, AO x3 HEENT: PERRLA, pupils bilaterally equal and reactive, pallors not present Chest: Normal vesicular breath sounds, no added sounds, equal good air entry bilaterally CVS: S1-S2 regular, no murmurs, no tachycardia, no gallops, no rubs Abdomen: Soft, nontender, no organomegaly, bowel sounds present Neuro: No focal deficits, no facial deformity, AO x3, power 5/5 in all limbs Data 04/14/22 03:52 04/14/22 03:52 Micro: Microbiology 04/12/22 19:10 Blood Culture - Preliminary Blood NEGATIVE TO DATE 04/12/22 19:21 Blood Culture - Preliminary Blood NEGATIVE TO DATE 04/12: PBCX: pending 04/06: PBCX 05/03 + MRSA 04/07: resp cx: MRSA MRSA M.I.C. RX --------- ------ * Ampicillin <=2 R * Ciprofloxacin >2 R * Clindamycin <=0.5 S * Erythromycin >4 R * Gentamicin <=4 S * Levofloxacin 4 I * Linezolid 2 S * Oxacillin >2 R * Penicillin 2 R * Rifampin <=1 S * Tetracycline >8 R * Trimethoprim/Sulfamethoxazole <=0.5/9.5 S Vancomycin 1 S Daptomycin <=0.5 S A&P Assessment and plan (1) MRSA bacteremia: (2) ESRD (end stage renal disease): (3) Pneumonia: Plan Patient with a recent history of being admitted for influenza and superadded bacterial pneumonia, discharged recently. On treatment with linezolid until recently, called back to the hospital after blood culture from previous admission resulted positive on April 06, 2022. Peripheral blood culture from April 06, 2022 reported positive. Patient has multiple potential sources of infection, certainly her recent pneumonia with sputum culture indicative of the same organism is a possibility. With presence of a hemodialysis catheter, endovascular infection is also possible. Will check blood culture from the catheter itself. If positive will likely need removal of catheter. She also has multiple wounds over her lower extremity which may be the source, however none of these appear to be deep-seated abscesses or osteomyelitis at this present time. Patient has known Charcot's foot for which she gets outpatient care. Continue vancomycin renally dosed at this present time, anticipate patient needing at least 4 to 6 weeks of directed therapy, can time vancomycin with dialysis with goal trough of 15-20. The big question remains if her dialysis catheter may be infected and need to be removed. This will depend upon how quickly the blood cultures clear, if clear from April 12 and also if catheter cultures returned positive. Will follow Consult Attestations Medical Necessity Statement: IV antibiotics, MRSA bacteremia, per primary's note Coding Level of Care Code Acute Residential Recycle Driver for [facility] Fwd Diagnoses MRSA bacteremia R78.81; B95.62 ESRD (end stage renal disease) N18.6 Pneumonia J18.9
[2022-04-14] MEDS: mirtazapine 30 mg Tablet PO (20:21)
[2022-04-14] MEDS: vancomycin 1,500 MG/300 ML PIGGYBACK 200 MG IV (20:21)
[2022-04-14] MEDS: atorvastatin 40 mg Tablet PO (20:21)
[2022-04-14] MEDS: losartan 50 mg Tablet PO (20:21)
[2022-04-14] MEDS: acetaminophen 500 mg Tablet PO (22:14)
[2022-04-14] MEDS: cyclobenzaprine 10 mg Tablet 5 MG PO (22:14)
--- NOTE | 2022-04-14 23:30 | PC.NURSE ---
Dialysis nurse Nikki came to bedside to pull blood cultures from dialysis port. Dialysis nurse states that arterial port won't pull blood. Blood cultures drawn from venous port by egg smeller.
[2022-04-15] VITALS (10 sets, daily range): BP systolic 139–156; BP diastolic 61–89; PULSE 67–96; RESP 14–23; TEMP 36.4–36.7; O2SAT 94–98
[2022-04-15 06:24] LABS: Glucose Point of Care 178 mg/dL (70-110)
[2022-04-15] MEDS: insulin lispro 100 unit/1 mL SUBCUT ×3 (08:49→17:41)
[2022-04-15] MEDS: ferrous gluconate 324 mg Tablet PO ×2 (08:50→17:40)
[2022-04-15] MEDS: carbidopa-levodopa 25-100mg Tablet 2 EACH PO ×3 (09:28→20:05)
[2022-04-15] MEDS: thyroid 60 mg Tablet 90 MG PO (09:29)
[2022-04-15] MEDS: insulin glargine 100 units/1 mL 40 UNIT SUBCUT (09:30)
[2022-04-15] MEDS: predniSONE 20 mg Tablet 10 MG PO (09:30)
[2022-04-15] MEDS: gabapentin 100 mg Capsule PO ×3 (09:31→20:06)
[2022-04-15] MEDS: apixaban 5 mg Tablet PO ×2 (09:31→17:39)
[2022-04-15] MEDS: metoprolol tartrate 50 mg Tablet 100 MG PO ×2 (09:32→17:42)
[2022-04-15] MEDS: loratadine 10 mg Tablet PO (09:32)
[2022-04-15] MEDS: hyDRALAzine 25 mg Tablet PO ×3 (09:33→20:06)
[2022-04-15] MEDS: FUROsemide 40 mg Tablet PO ×2 (09:33→17:40)
[2022-04-15] MEDS: fluticasone nasal spray 16gm Btl 1 SPRAY NASAL ×2 (09:33→17:40)
[2022-04-15] MEDS: sertraline 50 mg Tablet PO (09:34)
[2022-04-15 10:52] LABS: Glucose Point of Care 210 mg/dL (70-110)
[2022-04-15] MEDS: oxyCODONE-APAP 5-325 mg Tablet 1 TAB PO ×2 (11:21→20:06)
--- NOTE | 2022-04-15 12:24 | PC.SOCIAL ---
Pg 2 IMM Explained to pt Pg 2 IMM. No questions voiced. Provided pt a copy. Initialed, dated, & timed a copy & placed in chart.
--- NOTE | 2022-04-15 13:23 | P.PN_ITS ---
Subjective Medications: Reviewed: Yes Vitals/I&O/Wt Last Vital Signs Temp 97.7 F 04/15/22 11:38 Pulse 75 04/15/22 11:38 Resp 16 04/15/22 11:38 BP 151/76 04/15/22 11:38 Pulse Ox 96 04/15/22 11:38 O2 Del Method 04/15/22 11:38 04/14/22 04/15/22 04/15/22 22:59 06:59 14:59 Intake Total 600 / 960 650 / 1610 120 / 120 Output Total 3000 / 3000 Balance -2400 / -2040 650 / -1390 120 / 120 Weight last 48 hrs Weight 112.309 kg Weight 112.8 kg Weight 115.802 kg Physical Exam Narrative: Patient is awake alert, no acute distress Neck supple Clear to auscultation per report S1-S2 regular rate and rhythm per report No pedal edema Data 04/14/22 03:52 04/14/22 03:52 Micro: Microbiology 04/14/22 23:40 Blood Culture - Preliminary Blood SPECIMEN COLLECTED A&P Assessment and plan (1) ESRD (end stage renal disease): Plan 1. End-stage renal disease: On dialysis per MWF schedule, status post dialysis sunday , next HD on Sunday 2. Hypertension: Blood pressure stable 3. Anemia: Continue to monitor, transfuse if hemoglobin less than 7 4. MRSA pneumonia: Repeat blood cultures pending, clinically she feels better. History of A. fib on chronic anticoagulation Diabetes History of Parkinson's disease Patient evaluated using audiovisual cart. Time spent 30 minutes Attestations Medical Necessity Statement*: Requires further hospitalization for management of MRSA bacteremia, ESRD on hemodialysis Time Spent in Patient Care: Greater than 35 minutes Coding Level of Care Code Acute Mixed Livestock Farmer for [facility] Fwd Diagnoses ESRD (end stage renal disease) N18.6
--- NOTE | 2022-04-15 14:48 | PM.PN ---
Subjective Subjective: No acute events overnight. Patient has remained hemodynamically stable and afebrile. Underwent dialysis yesterday without any issues. Given lab holiday today. Medications: Reviewed: Yes Vitals/I&O/Wt Last Vital Signs Temp 97.7 F 04/15/22 11:38 Pulse 75 04/15/22 11:38 Resp 16 04/15/22 11:38 BP 151/76 04/15/22 11:38 Pulse Ox 96 04/15/22 11:38 O2 Del Method 04/15/22 11:38 04/14/22 04/15/22 04/15/22 22:59 06:59 14:59 Intake Total 600 / 960 650 / 1610 240 / 240 Output Total 3000 / 3000 Balance -2400 / -2040 650 / -1390 240 / 240 Weight last 48 hrs Weight 112.309 kg Weight 112.8 kg Weight 115.802 kg Physical Exam Narrative: General: No acute distress, AO x3, morbidly obese, on room air, HEENT: PERRLA, pupils bilaterally equal and reactive Chest: Normal vesicular breath sounds, occasional rhonchi present overall over the lung lynn, port present without any discharge, equal good air entry bilaterally CVS: S1-S2 regular, no murmurs, no tachycardia, no gallops, no rubs Abdomen: Soft, nontender, no organomegaly, bowel sounds present Neuro: No focal deficits, no facial deformity, AO x3, power 5/5 in all limbs Data 04/14/22 03:52 04/14/22 03:52 Micro: Microbiology 04/14/22 23:40 Blood Culture - Preliminary Blood SPECIMEN COLLECTED A&P Assessment and plan (1) MRSA bacteremia: With history of recent MRSA pneumonia. Patient does have a port to which she gets her dialysis. Patient also has a history of Charcot foot for which she reportedly is getting antibiotics and wound care as an outpatient for infection for last 4 weeks. As per podiatry team Charcot's foot ulcers looks healthy without any signs of infection. Appreciate podiatry recommendations continue wound care accordingly. Appreciate ID recommendations. Repeat blood cultures sent in the ER. Port cultures also sent. We will continue to follow cultures. May need to remove the port and get TANVI. Continue vancomycin for now. Goal trough levels 15-20. Echocardiogram for now ruled out infective endocarditis. If persistent bacteremia will plan for TANVI. Given history of port in place through which patient gets dialysis patient would most likely need at least 6 weeks of IV antibiotics with dialysis going forward after first negative blood culture. (2) ESRD (end stage renal disease): Appreciate nephrology recommendations. Get dialysis Sunday, Sunday, Sunday. (3) Pneumonia: On room air. Seems to be recovering. History of MRSA pneumonia recently. Already on vancomycin. We will continue to monitor. Oxygen supplementation keeping saturation over 90%. DuoNebs as needed. Continue with Flonase. Prednisone wean down to 10 mg daily. (4) Diarrhea: On antibiotics for last 4 weeks orally for Charcot's foot infection. Patient is not aware what kind of antibiotic. Check stool for C. difficile. Stool studies still pending (5) Charcot's joint of left foot: (6) Uncontrolled insulin dependent diabetes mellitus: Continue home dose of Lantus. For sliding scale at moderate dose protocol before meals and at bedtime. Check A1c. (7) Hypertension: Goal blood pressure less than 140/90 mmHg. Continue with home dose of metoprolol, losartan and clonidine as needed. Hydralazine added 25 mg 4 times daily. Will uptitrate as per goal blood pressures. (8) S/P dialysis catheter insertion: (9) Iron deficiency anemia: Continue with oral iron supplementation. (10) Neuropathy: Plan Full code. Renal dialysis diet. Heparin 5000 every 12 hourly. Protonix for PUD prophylaxis. Attestations Medical Necessity Statement*: Requires hospital stay for MRSA bacteremia in setting of ESRD on hemodialysis through port with history of recent MRSA pneumonia Time Spent in Patient Care: Greater than 35 minutes Coding Level of Care Code Acute Cover Cutter Machine for [facility] Fwd Diagnoses MRSA bacteremia R78.81; B95.62 ESRD (end stage renal disease) N18.6 Pneumonia J18.9 Diarrhea R19.7 Charcot's joint of left foot M14.672 Uncontrolled insulin dependent diabetes mellitus Hypertension I10 S/P dialysis catheter insertion Z95.828; Z99.2 Iron deficiency anemia D50.9 Neuropathy G62.9
[2022-04-15 16:51] LABS: Glucose Point of Care 150 mg/dL (70-110)
[2022-04-15] MEDS: b-complex-vitamin c Tablet 1 EACH PO (17:40)
[2022-04-15] MEDS: clopidogrel 75 mg Tablet PO (17:40)
[2022-04-15] MEDS: hyDROXYzine 25 mg Capsule PO (17:41)
[2022-04-15] MEDS: ropinirole 1 mg Tablet 0.5 MG PO (17:42)
--- NOTE | 2022-04-15 17:56 | PM.PN ---
Subjective Subjective: Infectious disease progress note. Medications: Reviewed: Yes Vitals/I&O/Wt Last Vital Signs Temp 97.7 F 04/15/22 15:55 Pulse 96 04/15/22 15:55 Resp 16 04/15/22 15:55 BP 139/69 04/15/22 15:55 Pulse Ox 96 04/15/22 15:55 O2 Del Method 04/15/22 15:55 04/15/22 04/15/22 04/15/22 06:59 14:59 22:59 Intake Total 650 / 1610 240 / 240 360 / 600 Balance 650 / -1390 240 / 240 360 / 600 Weight last 48 hrs Weight 112.309 kg Weight 112.8 kg Weight 115.802 kg Physical Exam Narrative: General: No acute distress, AO x3 HEENT: PERRLA, pupils bilaterally equal and reactive, pallors not present Chest: Normal vesicular breath sounds, no added sounds, equal good air entry bilaterally CVS: S1-S2 regular, no murmurs, no tachycardia, no gallops, no rubs Abdomen: Soft, nontender, no organomegaly, bowel sounds present Neuro: No focal deficits, no facial deformity, AO x3, power 5/5 in all limbs Data 04/14/22 03:52 04/14/22 03:52 Micro: Microbiology 04/14/22 23:40 Blood Culture - Preliminary Blood SPECIMEN COLLECTED A&P Assessment and plan (1) MRSA bacteremia: (2) ESRD (end stage renal disease): (3) Pneumonia: Plan Patient with a recent history of being admitted for influenza and superadded bacterial pneumonia, discharged recently. On treatment with linezolid until recently, called back to the hospital after blood culture from previous admission resulted positive on April 06, 2022. Peripheral blood culture from April 06, 2022 reported positive. Patient has multiple potential sources of infection, certainly her recent pneumonia with sputum culture indicative of the same organism is a possibility. With presence of a hemodialysis catheter, endovascular infection is also possible. Will check blood culture from the catheter itself. If positive will likely need removal of catheter. She also has multiple wounds over her lower extremity which may be the source, however none of these appear to be deep-seated abscesses or osteomyelitis at this present time. Patient has known Charcot's foot for which she gets outpatient care. Continue vancomycin renally dosed at this present time, anticipate patient needing at least 4 to 6 weeks of directed therapy, can time vancomycin with dialysis with goal trough of 15-20. The big question remains if her dialysis catheter may be infected and need to be removed. This will depend upon how quickly the blood cultures clear, if clear from April 12 and also if catheter cultures returned positive. Will follow Attestations Medical Necessity Statement*: per admitting note Coding Level of Care Code Acute River Tester for [facility] Fwd Diagnoses MRSA bacteremia R78.81; B95.62 ESRD (end stage renal disease) N18.6 Pneumonia J18.9
[2022-04-15] MEDS: ipratropium-albuterol 3 mL Neb INHALATION (19:39)
[2022-04-15] MEDS: budesonide 0.5 mg/2 mL Neb INHALATION (19:39)
[2022-04-15] MEDS: cyclobenzaprine 10 mg Tablet 5 MG PO (20:05)
[2022-04-15] MEDS: losartan 50 mg Tablet PO (20:05)
[2022-04-15] MEDS: mirtazapine 30 mg Tablet PO (20:06)
[2022-04-15] MEDS: atorvastatin 40 mg Tablet PO (20:06)
[2022-04-15 20:26] LABS: Vancomycin Trough 34.8 ug/mL (10-15)
--- NOTE | 2022-04-15 21:10 | PC.NURSE ---
Pharmacy notified of vanc trough of 34.8. Pharmacy stated to hold 1930 dose of Vanc.
[2022-04-15 21:37] LABS: Glucose Point of Care 116 mg/dL (70-110)
[2022-04-16] VITALS (9 sets, daily range): BP systolic 132–163; BP diastolic 61–91; PULSE 79–107; RESP 18–24; TEMP 36.4–36.9; O2SAT 92–96
[2022-04-16 05:27] LABS: Basophils # 0.1 10^3/uL (0.0-0.1); Basophils % 0.4 %; Eosinophils # 0.2 10^3/uL (0.0-0.8); Eosinophils % 1.4 %; Hematocrit 35.4 % (37.0-47.0); Hemoglobin 10.8 g/dL (11.5-15.3); Lymphocytes # 2.9 10^3/uL (0.8-4.8); Lymphocytes % 17.6 %; Mean Corpuscular HGB Conc 30.5 g/dL (30.0-36.0); Mean Corpuscular Hemoglobin 30.9 pg (28.0-34.0); Mean Corpuscular Volume 101.1 fl (81-99); Mean Platelet Volume 9.6 fL (7.4-10.4); Monocytes # 0.8 10^3/uL (0.2-0.9); Monocytes % 4.9 %; Neutrophils # 11.96 10^3/uL (1.8-7.7); Neutrophils % 72.3 %; Nucleated Red Blood Cells % 0.1 %; Platelet Count 316 10^3/cmm (130-400); Red Cell Distribution Width 16.3 % (12.1-15.1); White Blood Count 16.6 10^3/uL (4.0-10.0)
[2022-04-16 05:48] LABS: Alanine Aminotransferase < 5 U/L (0-33); Albumin Level 3.4 g/dL (3.5-5.2); Alkaline Phosphatase 76 U/L (35-105); Anion Gap 21.6 (5-19); Aspartate Amino Transferase 11 U/L (0-32); Blood Urea Nitrogen 43 mg/dL (8-23); Carbon Dioxide 21 mmol/L (22-29); Chloride 98 mmol/L (98-107); Globulin 3.2 g/dL (1.3-4.6); Glucose 151 mg/dL (65-115); Osmolality Calculated 300 mOsm/kg (285-295); Sodium 138 mmol/L (136-145); Total Bilirubin 0.4 mg/dL (0.15-1.2); Total Protein 6.6 g/dL (6.6-8.7)
[2022-04-16 06:12] LABS: Potassium 2.6 mmol/L (3.5-5.1)
[2022-04-16 06:16] LABS: Glucose Point of Care 159 mg/dL (70-110)
--- NOTE | 2022-04-16 06:22 | PC.NURSE ---
Dr. Loaiza notified of potassium of 2.6. 40 PO potassium ordered x1.
[2022-04-16] MEDS: potassium chloride ER 20 mEq Tablet 40 MEQ PO (06:40)
--- NOTE | 2022-04-16 07:22 | P.PN_ITS ---
Subjective Subjective: feels better. s/p HD Sunday. has diarrhea is occult blood +, c diff neg. has palpitations. no edema. LUE AVF does not work Medications: Reviewed: Yes Medication Review Details: Current Medications Acetaminophen (Acetaminophen 500 Mg Tablet) 500 mg PO Q4H PRN PRN Reason: fever Last Admin: 04/14/22 22:14 Dose: 500 mg Albuterol/Ipratropium (Ipratropium-Albuterol 3 Ml Neb) 3 ml INHALATION Q6H PRN PRN Reason: SHORTNESS OF BREATH Last Admin: 04/15/22 19:39 Dose: 3 ml Apixaban (Apixaban 5 Mg Tablet) 5 mg PO BID [facility] Last Admin: 04/15/22 17:39 Dose: 5 mg Atorvastatin Calcium (Atorvastatin 40 Mg Tablet) 40 mg PO BEDTIME@21 [facility] Last Admin: 04/15/22 20:06 Dose: 40 mg Benzonatate (Benzonatate 100 Mg Capsule) 100 mg PO Q8H PRN PRN Reason: Cough Budesonide (Budesonide 0.5 Mg/2 Ml Neb) 0.5 mg INHALATION BID.RESPIRATORY [facility] Last Admin: 04/15/22 19:39 Dose: 0.5 mg Carbidopa/Levodopa (Carbidopa-Levodopa 25-100mg Tablet) 2 each PO TID [facility] Last Admin: 04/15/22 20:05 Dose: 2 each Clonidine HCl (Clonidine 0.1 Mg Tablet) 0.3 mg PO Q8H PRN PRN Reason: systolic bp >160 Clopidogrel Bisulfate (Clopidogrel 75 Mg Tablet) 75 mg PO QPM [facility] Last Admin: 04/15/22 17:40 Dose: 75 mg Cyclobenzaprine HCl (Cyclobenzaprine 10 Mg Tablet) 5 mg PO Q8H PRN PRN Reason: Muscle Spasm Last Admin: 04/15/22 20:05 Dose: 5 mg Dextrose (Dextrose 50% Syringe 50 Ml) 25 ml IVP ONCE PRN; Protocol PRN Reason: hypoglycemia protocol Dextrose (Dextrose 50% Syringe 50 Ml) 50 ml IVP PRN PRN; Protocol PRN Reason: hypoglycemia protocol Ferrous Gluconate (Ferrous Gluconate 324 Mg Tablet) 324 mg PO BIDWM [facility] Last Admin: 04/15/22 17:40 Dose: 324 mg Fluticasone Propionate (Fluticasone Nasal [place] 16gm Btl) 1 spray NASAL BID [facility] Last Admin: 04/15/22 17:40 Dose: 1 spray Furosemide (Furosemide 40 Mg Tablet) 40 mg PO BID [facility] Last Admin: 04/15/22 17:40 Dose: 40 mg Gabapentin (Gabapentin 100 Mg Capsule) 100 mg PO TID [facility] Last Admin: 04/15/22 20:06 Dose: 100 mg Glucagon (Glucagon 1 Mg/Ml Inj 1 Ml) 1 mg IM ONCE PRN; Protocol PRN Reason: Adult Acute Hypoglycemia Prot. Hydralazine HCl (Hydralazine 25 Mg Tablet) 25 mg PO TID [facility] Last Admin: 04/15/22 20:06 Dose: 25 mg Hydroxyzine Pamoate (Hydroxyzine 25 Mg Capsule) 25 mg PO QPM [facility] Last Admin: 04/15/22 17:41 Dose: 25 mg Dextrose (D5w) 500 mls @ 100 mls/hr IV ONCE PRN; Protocol PRN Reason: Adult Acute Hypoglycemia Prot Albumin Human (Albumin) 12.5 gm in 50 mls @ 60 mls/hr IV PRN PRN PRN Reason: Hypotension and/or symptomatic Vancomycin/PEG/NADA/Lysine/Water (Vancocin) 1,500 mg in 300 mls @ 200 mls/hr IV Q48H [facility] Insulin Glargine (Insulin Glargine 100 Units/1 Ml) 40 unit SUBCUT DAILY [facility] Last Admin: 04/15/22 09:30 Dose: 40 unit Insulin Human Lispro (Insulin Lispro 100 Unit/1 Ml) 0 unit SUBCUT WM&BEDTIME [facility]; Protocol Last Admin: 04/15/22 21:51 Dose: Not Given Loperamide HCl (Loperamide 2 Mg Capsule) 2 mg PO Q6H PRN PRN Reason: Loose Stool Loratadine (Loratadine 10 Mg Tablet) 10 mg PO DAILY [facility] Last Admin: 04/15/22 09:32 Dose: 10 mg Losartan Potassium (Losartan 50 Mg Tablet) 50 mg PO BEDTIME [facility] Last Admin: 04/15/22 20:05 Dose: 50 mg Metoprolol Tartrate (Metoprolol Tartrate 50 Mg Tablet) 100 mg PO BID [facility] Last Admin: 04/15/22 17:42 Dose: 100 mg Mirtazapine (Mirtazapine 30 Mg Tablet) 30 mg PO BEDTIME [facility] Last Admin: 04/15/22 20:06 Dose: 30 mg Multivitamins (R-Dgtpohm-Uixafuu C Tablet) 1 each PO QPM [facility] Last Admin: 04/15/22 17:40 Dose: 1 each Non-Formulary Medication (Solifenacin) 5 mg PO QAM [facility] Last Admin: 04/15/22 21:51 Dose: Not Given Ondansetron HCl (Ondansetron 2 Mg/Ml Sdv 2 Ml) 4 mg IVP Q6H PRN PRN Reason: NAUSEA AND VOMITING Oxycodone/Acetaminophen (Oxycodone-Apap 5-325 Mg Tablet) 1 tab PO Q6H PRN PRN Reason: for moderate pain Last Admin: 04/15/22 20:06 Dose: 1 tab Prednisone (Prednisone 20 Mg Tablet) 10 mg PO DAILY [facility] Last Admin: 04/15/22 09:30 Dose: 10 mg Ropinirole HCl (Ropinirole 1 Mg Tablet) 0.5 mg PO QPM [facility] Last Admin: 04/15/22 17:42 Dose: 0.5 mg Sertraline HCl (Sertraline 50 Mg Tablet) 50 mg PO DAILY [facility] Last Admin: 04/15/22 09:34 Dose: 50 mg Thyroid (Thyroid 60 Mg Tablet) 90 mg PO DAILY [facility] Last Admin: 04/15/22 09:29 Dose: 90 mg Vitals/I&O/Wt Last Vital Signs Temp 98.2 F 04/16/22 04:00 Pulse 83 04/16/22 04:00 Resp 22 H 04/16/22 04:00 BP 132/68 04/16/22 04:00 Pulse Ox 93 04/16/22 04:00 O2 Del Method 04/15/22 19:39 04/15/22 04/16/22 04/16/22 22:59 06:59 14:59 Intake Total 360 / 600 Balance 360 / 600 Weight last 48 hrs Weight 112.309 kg Weight 112.8 kg Physical Exam Narrative: elderly female in bed, NARD vss heent- nc/at,eomi neck supple lungs clear RT sided ACW permacath heart irreg, tachy abd soft, nt, nd, + bs ext no edema in legs LUE AVF not working neuro- a,a,o x3 Data 04/16/22 05:16 04/16/22 05:16 Micro: Microbiology 04/14/22 23:40 Blood Culture - Preliminary Blood NEGATIVE TO DATE 04/15/22 15:15 Stool Lactoferrin - Final Stool C.difficile Toxin B Gene (PCR) - Final Occult Blood (FIT) - Final A&P Assessment and plan (1) ESRD (end stage renal disease): 77 yr old fmeale ESRD, MRSA bacateremia, charcots foot, h/o a fib. 1. ESRD- HD in am -MRSA bacteremia- keep vanco level under 19 2. HTN-BP stable 3. anemia- hgb okay 4. hypokalemia- replete and monitor 5. DM- monitor glucose 6. h/o a fib 7. tsh now normal Plan as above Attestations Medical Necessity Statement*: ESRD, MRSA bacteremia Time Spent in Patient Care: 16 - 35 minutes (>than 50% of time spent in counselling and/or direct pt care on unit) . Coding Level of Care Code Acute Health Director for Dominick Baca Diagnoses ESRD (end stage renal disease) N18.6
[2022-04-16] MEDS: budesonide 0.5 mg/2 mL Neb INHALATION (08:15)
[2022-04-16] MEDS: insulin lispro 100 unit/1 mL SUBCUT ×4 (08:47→21:12)
[2022-04-16] MEDS: ferrous gluconate 324 mg Tablet PO ×2 (08:48→17:48)
[2022-04-16] MEDS: thyroid 60 mg Tablet 90 MG PO (08:48)
[2022-04-16] MEDS: gabapentin 100 mg Capsule PO ×3 (08:49→21:13)
[2022-04-16] MEDS: carbidopa-levodopa 25-100mg Tablet 2 EACH PO ×3 (08:49→21:12)
[2022-04-16] MEDS: metoprolol tartrate 50 mg Tablet 100 MG PO ×2 (08:50→17:48)
[2022-04-16] MEDS: predniSONE 20 mg Tablet 10 MG PO (08:50)
[2022-04-16] MEDS: hyDRALAzine 25 mg Tablet PO (08:51)
[2022-04-16] MEDS: loratadine 10 mg Tablet PO (08:51)
[2022-04-16] MEDS: sertraline 50 mg Tablet PO (08:51)
[2022-04-16] MEDS: fluticasone nasal spray 16gm Btl 1 SPRAY NASAL ×2 (08:51→17:45)
[2022-04-16] MEDS: apixaban 5 mg Tablet PO ×2 (08:51→17:47)
[2022-04-16] MEDS: FUROsemide 40 mg Tablet PO ×2 (08:51→17:48)
[2022-04-16] MEDS: insulin glargine 100 units/1 mL 40 UNIT SUBCUT (08:52)
[2022-04-16 12:24] LABS: Glucose Point of Care 161 mg/dL (70-110)
[2022-04-16 12:29] LABS: Basophils # 0.1 10^3/uL (0.0-0.1); Basophils % 0.4 %; Eosinophils # 0.2 10^3/uL (0.0-0.8); Eosinophils % 0.8 %; Hematocrit 37.8 % (37.0-47.0); Hemoglobin 11.2 g/dL (11.5-15.3); Lymphocytes # 1.5 10^3/uL (0.8-4.8); Lymphocytes % 6.3 %; Mean Corpuscular HGB Conc 29.6 g/dL (30.0-36.0); Mean Corpuscular Hemoglobin 30.8 pg (28.0-34.0); Mean Corpuscular Volume 103.8 fl (81-99); Mean Platelet Volume 9.8 fL (7.4-10.4); Monocytes # 0.8 10^3/uL (0.2-0.9); Monocytes % 3.4 %; Neutrophils # 20.51 10^3/uL (1.8-7.7); Neutrophils % 86.8 %; Nucleated Red Blood Cells % 0.1 %; Platelet Count 331 10^3/cmm (130-400); Red Blood Count 3.64 10^6/uL (4.1-5.3); Red Cell Distribution Width 16.3 % (12.1-15.1); White Blood Count 23.7 10^3/uL (4.0-10.0)
[2022-04-16 12:48] LABS: Blood Urea Nitrogen 48 mg/dL (8-23); Calcium 8.4 mg/dL (8.5-10.5); Carbon Dioxide 18 mmol/L (22-29); Chloride 101 mmol/L (98-107); Glucose 145 mg/dL (65-115); Osmolality Calculated 299 mOsm/kg (285-295); Sodium 137 mmol/L (136-145)
[2022-04-16 12:50] LABS: Anion Gap 21.8 (5-19); Potassium 3.8 mmol/L (3.5-5.1)
--- NOTE | 2022-04-16 14:21 | P.PN_ITS ---
Subjective Subjective: No acute events overnight. Patient has remained hemodynamically stable and afebrile. Denies any nausea, vomiting, headache. States cough is better. Stool negative for C. difficile blood positive stool for occult blood though hemoglobin has remained stable. Vitals/I&O/Wt Last Vital Signs Temp 98.4 F 04/16/22 11:09 Pulse 93 04/16/22 11:09 Resp 18 04/16/22 11:09 BP 163/61 04/16/22 11:09 Pulse Ox 92 04/16/22 11:09 O2 Del Method 04/16/22 11:09 04/15/22 04/16/22 04/16/22 22:59 06:59 14:59 Intake Total 360 / 600 840 / 840 Balance 360 / 600 840 / 840 Weight last 48 hrs Weight 112.309 kg Weight 112.8 kg Physical Exam Narrative: General: No acute distress, AO x3, morbidly obese, on room air, HEENT: PERRLA, pupils bilaterally equal and reactive Chest: Normal vesicular breath sounds, occasional rhonchi present overall over the lung lynn, port present without any discharge, equal good air entry bilaterally CVS: S1-S2 regular, no murmurs, no tachycardia, no gallops, no rubs Abdomen: Soft, nontender, no organomegaly, bowel sounds present Neuro: No focal deficits, no facial deformity, AO x3, power 5/5 in all limbs Data 04/16/22 12:15 04/16/22 12:15 Micro: Microbiology 04/14/22 23:40 Blood Culture - Preliminary Blood NEGATIVE TO DATE 04/15/22 15:15 Stool Lactoferrin - Final Stool C.difficile Toxin B Gene (PCR) - Final Occult Blood (FIT) - Final A&P Assessment and plan (1) MRSA bacteremia: With history of recent MRSA pneumonia. Patient does have a port to which she gets her dialysis. Patient also has a history of Charcot foot for which she reportedly is getting antibiotics and wound care as an outpatient for infection for last 4 weeks. As per podiatry team Charcot's foot ulcers looks healthy without any signs of infection. Appreciate podiatry recommendations continue wound care accordingly. Appreciate ID recommendations. Repeat blood cultures sent in the ER. Port cultures also sent. We will continue to follow cultures. May need to remove the port and get TANVI. Continue vancomycin for now. Goal trough levels 15-20. Echocardiogram for now ruled out infective endocarditis. If persistent bacteremia will plan for TANVI. Given history of port in place through which patient gets dialysis patient would most likely need at least 6 weeks of IV antibiotics with dialysis going forward after first negative blood culture. (2) ESRD (end stage renal disease): Appreciate nephrology recommendations. Get dialysis Sunday, Sunday, Sunday. (3) Pneumonia: On room air. Seems to be recovering. History of MRSA pneumonia recently. Already on vancomycin. We will continue to monitor. Oxygen supplementation keeping saturation over 90%. DuoNebs as needed. Continue with Flonase. Prednisone wean down to 10 mg daily. (4) Diarrhea: On antibiotics for last 4 weeks orally for Charcot's foot infection. Patient is not aware what kind of antibiotic. Check stool for C. difficile. Stool studies still pending (5) Charcot's joint of left foot: (6) Uncontrolled insulin dependent diabetes mellitus: Continue home dose of Lantus. For sliding scale at moderate dose protocol before meals and at bedtime. Check A1c. (7) Hypertension: Goal blood pressure less than 140/90 mmHg. Continue with home dose of metoprolol, losartan and clonidine as needed. Hydralazine added 25 mg 4 times daily. Will uptitrate as per goal blood pressures. (8) S/P dialysis catheter insertion: (9) Iron deficiency anemia: Continue with oral iron supplementation. (10) Neuropathy: Plan Full code. Renal dialysis diet. Heparin 5000 every 12 hourly. Protonix for PUD prophylaxis. Plan for the day: Continue with vancomycin. Vanco trough elevated to 34. Will discuss with pharmacy and change dose as per read dialysis. Appreciate ID recommendations. Patient does have leukocytosis which seems to be worsening. Could be secondary to being on steroids. Stop prednisone. If leukocytosis continues to worsen will have to possibly remove the port. Follow-up blood cultures from admission and port blood cultures. Overall plan would be to continue IV antibiotics/vancomycin with dialysis as an outpatient for next 4 weeks. Goal blood pressure less than 140/90 mmHg. Increase hydralazine to 50 mg 3 ti mes a day. Attestations Medical Necessity Statement*: Requires further hospitalization for management of MRSA bacteremia while definitive plan is sought and repeat blood cultures are awaited. Time Spent in Patient Care: Greater than 35 minutes Coding Level of Care Code Acute Mechanism Assembler for Chg Fwd Diagnoses MRSA bacteremia R78.81; B95.62 ESRD (end stage renal disease) N18.6 Pneumonia J18.9 Diarrhea R19.7 Charcot's joint of left foot M14.672 Uncontrolled insulin dependent diabetes mellitus Hypertension I10 S/P dialysis catheter insertion Z95.828; Z99.2 Iron deficiency anemia D50.9 Neuropathy G62.9
[2022-04-16] MEDS: hyDRALAzine 50 mg Tablet PO ×2 (15:17→21:13)
[2022-04-16] MEDS: acetaminophen 500 mg Tablet PO (15:28)
[2022-04-16 16:40] LABS: Glucose Point of Care 239 mg/dL (70-110)
[2022-04-16] MEDS: b-complex-vitamin c Tablet 1 EACH PO (17:47)
[2022-04-16] MEDS: hyDROXYzine 25 mg Capsule PO (17:48)
[2022-04-16] MEDS: clopidogrel 75 mg Tablet PO (17:48)
[2022-04-16] MEDS: ropinirole 1 mg Tablet 0.5 MG PO (17:49)
[2022-04-16] MEDS: mirtazapine 30 mg Tablet PO (21:12)
[2022-04-16] MEDS: losartan 50 mg Tablet PO (21:12)
[2022-04-16] MEDS: atorvastatin 40 mg Tablet PO (21:13)
[2022-04-16 21:19] LABS: Glucose Point of Care 143 mg/dL (70-110)
[2022-04-16] MEDS: oxyCODONE-APAP 5-325 mg Tablet 1 TAB PO (21:22)
[2022-04-17] VITALS (12 sets, daily range): BP systolic 125–156; BP diastolic 63–95; PULSE 78–102; RESP 16–22; TEMP 36.3–37.4; O2SAT 95–99
[2022-04-17 04:51] LABS: Alanine Aminotransferase < 5 U/L (0-33); Albumin Level 3.2 g/dL (3.5-5.2); Alkaline Phosphatase 87 U/L (35-105); Anion Gap 20.9 (5-19); Aspartate Amino Transferase 11 U/L (0-32); Blood Urea Nitrogen 57 mg/dL (8-23); Carbon Dioxide 20 mmol/L (22-29); Chloride 104 mmol/L (98-107); Globulin 3.3 g/dL (1.3-4.6); Glucose 134 mg/dL (65-115); Magnesium 1.7 mg/dL (1.7-2.3); Osmolality Calculated 312 mOsm/kg (285-295); Phosphorus 4.1 mg/dL (2.5-4.5); Sodium 142 mmol/L (136-145); Total Bilirubin 0.4 mg/dL (0.15-1.2); Total Protein 6.5 g/dL (6.6-8.7)
[2022-04-17 04:59] LABS: Potassium 2.9 mmol/L (3.5-5.1)
[2022-04-17 06:16] LABS: Glucose Point of Care 127 mg/dL (70-110)
--- NOTE | 2022-04-17 06:34 | PM.PN ---
Subjective Subjective: c/o chronic diarrhea.. states she is eating and drinking. no egan Medications: Reviewed: Yes Medication Review Details: Current Medications Acetaminophen (Acetaminophen 500 Mg Tablet) 500 mg PO Q4H PRN PRN Reason: fever Last Admin: 04/16/22 15:28 Dose: 500 mg Albuterol/Ipratropium (Ipratropium-Albuterol 3 Ml Neb) 3 ml INHALATION Q6H PRN PRN Reason: SHORTNESS OF BREATH Last Admin: 04/15/22 19:39 Dose: 3 ml Apixaban (Apixaban 5 Mg Tablet) 5 mg PO BID [facility] Last Admin: 04/16/22 17:47 Dose: 5 mg Atorvastatin Calcium (Atorvastatin 40 Mg Tablet) 40 mg PO BEDTIME@21 [facility] Last Admin: 04/16/22 21:13 Dose: 40 mg Benzonatate (Benzonatate 100 Mg Capsule) 100 mg PO Q8H PRN PRN Reason: Cough Budesonide (Budesonide 0.5 Mg/2 Ml Neb) 0.5 mg INHALATION BID.RESPIRATORY [facility] Last Admin: 04/16/22 20:07 Dose: Not Given Carbidopa/Levodopa (Carbidopa-Levodopa 25-100mg Tablet) 2 each PO TID [facility] Last Admin: 04/16/22 21:12 Dose: 2 each Clonidine HCl (Clonidine 0.1 Mg Tablet) 0.3 mg PO Q8H PRN PRN Reason: systolic bp >160 Clopidogrel Bisulfate (Clopidogrel 75 Mg Tablet) 75 mg PO QPM [facility] Last Admin: 04/16/22 17:48 Dose: 75 mg Cyclobenzaprine HCl (Cyclobenzaprine 10 Mg Tablet) 5 mg PO Q8H PRN PRN Reason: Muscle Spasm Last Admin: 04/15/22 20:05 Dose: 5 mg Dextrose (Dextrose 50% Syringe 50 Ml) 25 ml IVP ONCE PRN; Protocol PRN Reason: hypoglycemia protocol Dextrose (Dextrose 50% Syringe 50 Ml) 50 ml IVP PRN PRN; Protocol PRN Reason: hypoglycemia protocol Ferrous Gluconate (Ferrous Gluconate 324 Mg Tablet) 324 mg PO BIDWM [facility] Last Admin: 04/16/22 17:48 Dose: 324 mg Fluticasone Propionate (Fluticasone Nasal [place] 16gm Btl) 1 spray NASAL BID [facility] Last Admin: 04/16/22 17:45 Dose: 1 spray Furosemide (Furosemide 40 Mg Tablet) 40 mg PO BID [facility] Last Admin: 04/16/22 17:48 Dose: 40 mg Gabapentin (Gabapentin 100 Mg Capsule) 100 mg PO TID [facility] Last Admin: 04/16/22 21:13 Dose: 100 mg Glucagon (Glucagon 1 Mg/Ml Inj 1 Ml) 1 mg IM ONCE PRN; Protocol PRN Reason: Adult Acute Hypoglycemia Prot. Hydralazine HCl (Hydralazine 50 Mg Tablet) 50 mg PO TID [facility] Last Admin: 04/16/22 21:13 Dose: 50 mg Hydroxyzine Pamoate (Hydroxyzine 25 Mg Capsule) 25 mg PO QPM [facility] Last Admin: 04/16/22 17:48 Dose: 25 mg Dextrose (D5w) 500 mls @ 100 mls/hr IV ONCE PRN; Protocol PRN Reason: Adult Acute Hypoglycemia Prot Albumin Human (Albumin) 12.5 gm in 50 mls @ 60 mls/hr IV PRN PRN PRN Reason: Hypotension and/or symptomatic Vancomycin HCl 1,000 mg/ (Sodium Chloride) 250 mls @ 250 mls/hr IV MoWeFr [facility] Insulin Glargine (Insulin Glargine 100 Units/1 Ml) 40 unit SUBCUT DAILY [facility] Last Admin: 04/16/22 08:52 Dose: 40 unit Insulin Human Lispro (Insulin Lispro 100 Unit/1 Ml) 0 unit SUBCUT WM&BEDTIME [facility]; Protocol Last Admin: 04/16/22 21:12 Dose: 4 unit Loperamide HCl (Loperamide 2 Mg Capsule) 2 mg PO Q6H PRN PRN Reason: Loose Stool Loratadine (Loratadine 10 Mg Tablet) 10 mg PO DAILY [facility] Last Admin: 04/16/22 08:51 Dose: 10 mg Losartan Potassium (Losartan 50 Mg Tablet) 50 mg PO BEDTIME [facility] Last Admin: 04/16/22 21:12 Dose: 50 mg Metoprolol Tartrate (Metoprolol Tartrate 50 Mg Tablet) 100 mg PO BID [facility] Last Admin: 04/16/22 17:48 Dose: 100 mg Mirtazapine (Mirtazapine 30 Mg Tablet) 30 mg PO BEDTIME [facility] Last Admin: 04/16/22 21:12 Dose: 30 mg Multivitamins (G-Yxlqnlb-Yopyduv C Tablet) 1 each PO QPM [facility] Last Admin: 04/16/22 17:47 Dose: 1 each Non-Formulary Medication (Solifenacin) 5 mg PO QAM [facility] Last Admin: 04/17/22 05:16 Dose: Not Given Ondansetron HCl (Ondansetron 2 Mg/Ml Sdv 2 Ml) 4 mg IVP Q6H PRN PRN Reason: NAUSEA AND VOMITING Oxycodone/Acetaminophen (Oxycodone-Apap 5-325 Mg Tablet) 1 tab PO Q6H PRN PRN Reason: for moderate pain Last Admin: 04/16/22 21:22 Dose: 1 tab Ropinirole HCl (Ropinirole 1 Mg Tablet) 0.5 mg PO QPM [facility] Last Admin: 04/16/22 17:49 Dose: 0.5 mg Sertraline HCl (Sertraline 50 Mg Tablet) 50 mg PO DAILY [facility] Last Admin: 04/16/22 08:51 Dose: 50 mg Thyroid (Thyroid 60 Mg Tablet) 90 mg PO DAILY [facility] Last Admin: 04/16/22 08:48 Dose: 90 mg Vitals/I&O/Wt Last Vital Signs Temp 97.7 F 04/17/22 04:00 Pulse 91 04/17/22 04:00 Resp 22 H 04/17/22 04:00 BP 152/67 04/17/22 04:00 Pulse Ox 98 04/17/22 04:00 O2 Del Method 04/16/22 20:00 04/16/22 04/16/22 04/17/22 14:59 22:59 06:59 Intake Total 840 / 840 60 / 900 1040 / 1940 Balance 840 / 840 60 / 900 1040 / 1940 Weight last 48 hrs Weight 112.582 kg Physical Exam Narrative: elderly female in bed, NARD vs noted heent- nc/at,eomi neck supple lungs clear RT sided ACW permacath heart irreg, tachy abd soft, nt, nd, + bs ext no edema in legs LUE AVF not working neuro- a,a,o x3 Data 04/16/22 12:15 04/17/22 03:33 Micro: Microbiology 04/15/22 15:15 Stool Lactoferrin - Final Stool Enteric Pathogens (PCR) - Final Parasite Antigen Panel - Final C.difficile Toxin B Gene (PCR) - Final Occult Blood (FIT) - Final A&P Assessment and plan (1) ESRD (end stage renal disease): 77 yr old fmeale ESRD, MRSA bacateremia, charcots foot, h/o a fib. 1. Leukocytosis- afebrile - mrsa bacteremia on vanco. -Q if have to remove line -repeat blood cultures today 2. ESRD- Hold HD today -replace potassium 3. HTN-BP stable 4. anemia- hgb okay 5. hypokalemia- replete and monitor 6. DM- monitor glucose 7. h/o a fib 8. tsh now normal Plan as above Attestations Medical Necessity Statement*: MRSA bacteremia Time Spent in Patient Care: 16 - 35 minutes (>than 50% of time spent in counselling and/or direct pt care on unit). Coding Level of Care Code Acute Folder Seamer Automatic for Dominick Baca Diagnoses ESRD (end stage renal disease) N18.6
--- NOTE | 2022-04-17 07:21 | PC.HD ---
Per Dr. Gregg's orders blood culture set drawn from venous port of R chest HD catheter. Dr. Gregg aware that patient's arterial port does not draw, and I was unable to draw cultures from it. Dressing changed. Catheter insertion site clear, with no redness or discharge noted.
[2022-04-17] MEDS: ipratropium-albuterol 3 mL Neb INHALATION (07:55)
[2022-04-17] MEDS: budesonide 0.5 mg/2 mL Neb INHALATION ×2 (07:55→20:47)
[2022-04-17] MEDS: gabapentin 100 mg Capsule PO ×3 (08:17→20:31)
[2022-04-17] MEDS: carbidopa-levodopa 25-100mg Tablet 2 EACH PO ×3 (08:17→20:31)
[2022-04-17] MEDS: loratadine 10 mg Tablet PO (08:17)
[2022-04-17] MEDS: sertraline 50 mg Tablet PO (08:17)
[2022-04-17] MEDS: potassium chloride ER 20 mEq Tablet 40 MEQ PO (08:18)
[2022-04-17] MEDS: apixaban 5 mg Tablet PO ×2 (08:18→17:20)
[2022-04-17] MEDS: metoprolol tartrate 50 mg Tablet 100 MG PO ×2 (08:18→17:21)
[2022-04-17] MEDS: FUROsemide 40 mg Tablet PO ×2 (08:18→17:20)
[2022-04-17] MEDS: ferrous gluconate 324 mg Tablet PO ×2 (08:19→17:20)
[2022-04-17] MEDS: insulin glargine 100 units/1 mL 40 UNIT SUBCUT (08:28)
[2022-04-17] MEDS: fluticasone nasal spray 16gm Btl 1 SPRAY NASAL ×2 (08:35→17:21)
[2022-04-17] MEDS: thyroid 60 mg Tablet 90 MG PO (08:52)
--- NOTE | 2022-04-17 08:58 | PC.SOCIAL ---
IMM updated IMM updated with patient. Verbalized an understanding. Copy Pg 2 provided. Initialled, dated, timed, and placed in chart.
[2022-04-17 11:28] LABS: Glucose Point of Care 248 mg/dL (70-110)
[2022-04-17] MEDS: oxyCODONE-APAP 5-325 mg Tablet 1 TAB PO ×2 (11:28→20:34)
[2022-04-17] MEDS: insulin lispro 100 unit/1 mL SUBCUT ×2 (14:09→22:13)
--- NOTE | 2022-04-17 15:50 | PC.NURSE ---
1300 Dr Platt notified that patient was not recieving dialysis today, and that vancomycin was to be given of HD days. Per Dr instructions hold dose and give when patient recieves dialysis.
[2022-04-17 17:09] LABS: Glucose Point of Care 103 mg/dL (70-110)
[2022-04-17] MEDS: b-complex-vitamin c Tablet 1 EACH PO (17:19)
[2022-04-17] MEDS: ropinirole 1 mg Tablet 0.5 MG PO (17:19)
[2022-04-17] MEDS: hyDROXYzine 25 mg Capsule PO (17:20)
[2022-04-17] MEDS: clopidogrel 75 mg Tablet PO (17:20)
--- NOTE | 2022-04-17 18:48 | P.PN_ITS ---
Subjective Subjective: Says she is doing all right. Denies any chest pain or pressure. Denies trouble breathing. No issues around dialysis catheter. Vitals/I&O/Wt Last Vital Signs Temp 99.3 F 04/17/22 15:23 Pulse 82 04/17/22 15:23 Resp 17 04/17/22 15:23 BP 125/64 04/17/22 15:23 Pulse Ox 95 04/17/22 15:23 O2 Del Method 04/17/22 07:58 04/17/22 04/17/22 04/17/22 06:59 14:59 22:59 Intake Total 1040 / 1940 480 / 480 360 / 840 Balance 1040 / 1940 480 / 480 360 / 840 Weight last 48 hrs Weight 112.582 kg Physical Exam Const: COMMON NORMALS: patient oriented x3 and alert GENERAL APPEARANCE: cooperative ORIENTATION/CONSCIOUSNESS: Yes awake HENMT: COMMON NORMALS: oropharynx normal Neck/C-Spine: COMMON NORMALS: no JVD Chest: OTHER: Right chest HD catheter Resp: COMMON NORMALS: normal respiratory effort and clear to auscultation bilaterally AUSCULTATION: clear to auscultation bilaterally Cardio: COMMON NORMALS: no JVD, regular rhythm, S1 normal heart sound present, S2 normal heart sound present and No murmurs present (Cardio) RHYTHM: regular rhythm HEART SOUNDS: S1 normal heart sound present and S2 normal heart sound present GI: COMMON NORMALS: Normal to inspection, nondistended, normoactive bowel sounds present, Soft to palpation and non-tender PALPATION: Yes Soft to palpation Extremity: COMMON NORMALS: no joint enlargement and no pedal edema Neuro: COMMON NORMALS: patient oriented x3 and moves all extremities SENSORIUM/ORIENTATION: Yes alert Skin: COMMON NORMALS: no rashes or lesions noted GENERAL SKIN EXAM: no rashes or lesions noted Data 04/16/22 12:15 04/17/22 03:33 Micro: Microbiology 04/17/22 08:00 Blood Culture - Preliminary Blood SPECIMEN COLLECTED 04/15/22 15:15 Stool Lactoferrin - Final Stool Enteric Pathogens (PCR) - Final Parasite Antigen Panel - Final C.difficile Toxin B Gene (PCR) - Final Occult Blood (FIT) - Final A&P Assessment and plan (1) MRSA bacteremia: So far without recurrence of bacteremia on repeat blood cultures. Additional cultures were repeated today. Maintain catheter at this time. In case positive blood cultures were further rise in leukocytosis catheter may need to be removed. Recheck CBC. Continue vancomycin with dialysis. With history of recent MRSA pneumonia. Patient does have a port to which she gets her dialysis. Patient also has a history of Charcot foot for which she reportedly is getting antibiotics and wound care as an outpatient for infection for last 4 weeks. As per podiatry team Charcot's foot ulcers looks healthy without any signs of infection. Appreciate podiatry recommendations continue wound care accordingly. Appreciate ID recommendations. Repeat blood cultures sent in the ER. Port cultures also sent. We will continue to follow cultures. May need to remove the port and get TANVI. Given history of port in place through which patient gets dialysis patient would most likely need at least 6 weeks of IV antibiotics with dialysis going forward after first negative blood culture. Could not reach her daughter for update by phone. (2) ESRD (end stage renal disease): Appreciate nephrology recommendations. Get dialysis Sunday, Sunday, Sunday. (3) Pneumonia: On room air. Doing well. History of MRSA pneumonia recently. Already on vancomycin. We will continue to monitor. Oxygen supplementation keeping saturation over 90%. DuoNebs as needed. Continue with Flonase. Prednisone wean down to 10 mg daily. (4) Diarrhea: On antibiotics for last 4 weeks orally for Charcot's foot infection. Patient is not aware what kind of antibiotic. Stool studies negative for C. difficile. Unremarkable apart from positive Hemoccult. (5) Charcot's joint of left foot: (6) Uncontrolled insulin dependent diabetes mellitus: Continue home dose of Lantus. For sliding scale at moderate dose protocol before meals and at bedtime. A1c 6.8 (7) Hypertension: Goal blood pressure less than 140/90 mmHg. Continue with home dose of metoprolol, losartan and clonidine as needed. Hydralazine added 25 mg 4 times daily. (8) S/P dialysis catheter insertion: (9) Iron deficiency anemia: Continue with oral iron supplementation. (10) Neuropathy: Plan Full code. Renal dialysis diet. Heparin 5000 every 12 hourly. Protonix for PUD prophylaxis. Attestations Medical Necessity Statement*: Continue admission for assessment management of possibility of dialysis catheter infection, complicated bacteremia, or other possible source, inability with ESRD on hemodialysis. Coding Level of Care Code Acute Supervisor Histology for Dominick Fwd Diagnoses MRSA bacteremia R78.81; B95.62 ESRD (end stage renal disease) N18.6 Pneumonia J18.9 Diarrhea R19.7 Charcot's joint of left foot M14.672 Uncontrolled insulin dependent diabetes mellitus Hypertension I10 S/P dialysis catheter insertion Z95.828; Z99.2 Iron deficiency anemia D50.9 Neuropathy G62.9
[2022-04-17] MEDS: mirtazapine 30 mg Tablet PO (20:31)
[2022-04-17] MEDS: losartan 50 mg Tablet PO (20:31)
[2022-04-17] MEDS: atorvastatin 40 mg Tablet PO (20:31)
[2022-04-17 22:11] LABS: Glucose Point of Care 162 mg/dL (70-110)
[2022-04-18] VITALS (10 sets, daily range): BP systolic 118–166; BP diastolic 68–77; PULSE 66–99; RESP 14–18; TEMP 36.3–37.1; O2SAT 94–97
[2022-04-18 05:17] LABS: Basophils # 0.1 10^3/uL (0.0-0.1); Basophils % 0.3 %; Eosinophils # 0.3 10^3/uL (0.0-0.8); Eosinophils % 1.2 %; Hematocrit 36.3 % (37.0-47.0); Hemoglobin 10.9 g/dL (11.5-15.3); Lymphocytes # 2.4 10^3/uL (0.8-4.8); Lymphocytes % 11.6 %; Mean Corpuscular Hemoglobin 30.6 pg (28.0-34.0); Mean Platelet Volume 9.8 fL (7.4-10.4); Monocytes # 0.9 10^3/uL (0.2-0.9); Monocytes % 4.6 %; Neutrophils # 16.51 10^3/uL (1.8-7.7); Neutrophils % 80.9 %; Nucleated Red Blood Cells % 0 %; Platelet Count 286 10^3/cmm (130-400); Red Blood Count 3.56 10^6/uL (4.1-5.3); Red Cell Distribution Width 16.4 % (12.1-15.1); White Blood Count 20.4 10^3/uL (4.0-10.0)
[2022-04-18 05:43] LABS: Alanine Aminotransferase < 5 U/L (0-33); Albumin Level 3.4 g/dL (3.5-5.2); Alkaline Phosphatase 85 U/L (35-105); Anion Gap 22.3 (5-19); Aspartate Amino Transferase 11 U/L (0-32); Blood Urea Nitrogen 61 mg/dL (8-23); Calcium 8.5 mg/dL (8.5-10.5); Carbon Dioxide 20 mmol/L (22-29); Chloride 107 mmol/L (98-107); Globulin 3.4 g/dL (1.3-4.6); Glucose 93 mg/dL (65-115); Magnesium 1.7 mg/dL (1.7-2.3); Osmolality Calculated 319 mOsm/kg (285-295); Potassium 3.3 mmol/L (3.5-5.1); Sodium 146 mmol/L (136-145); Total Bilirubin 0.4 mg/dL (0.15-1.2); Total Protein 6.8 g/dL (6.6-8.7)
[2022-04-18 05:46] LABS: Vancomycin Trough 24.7 ug/mL (10-15)
[2022-04-18 07:45] LABS: Glucose Point of Care 97 mg/dL (70-110)
--- NOTE | 2022-04-18 07:45 | P.PN_ITS ---
Subjective Subjective: c/o diarrhea. no sob or cp. has poor appetite. is weak Medications: Reviewed: Yes Medication Review Details: Current Medications Acetaminophen (Acetaminophen 500 Mg Tablet) 500 mg PO Q4H PRN PRN Reason: fever Last Admin: 04/16/22 15:28 Dose: 500 mg Albuterol/Ipratropium (Ipratropium-Albuterol 3 Ml Neb) 3 ml INHALATION Q6H PRN PRN Reason: SHORTNESS OF BREATH Last Admin: 04/17/22 07:55 Dose: 3 ml Apixaban (Apixaban 5 Mg Tablet) 5 mg PO BID [facility] Last Admin: 04/17/22 17:20 Dose: 5 mg Atorvastatin Calcium (Atorvastatin 40 Mg Tablet) 40 mg PO BEDTIME@21 [facility] Last Admin: 04/17/22 20:31 Dose: 40 mg Benzonatate (Benzonatate 100 Mg Capsule) 100 mg PO Q8H PRN PRN Reason: Cough Budesonide (Budesonide 0.5 Mg/2 Ml Neb) 0.5 mg INHALATION BID.RESPIRATORY [facility] Last Admin: 04/17/22 20:47 Dose: 0.5 mg Carbidopa/Levodopa (Carbidopa-Levodopa 25-100mg Tablet) 2 each PO TID [facility] Last Admin: 04/17/22 20:31 Dose: 2 each Clonidine HCl (Clonidine 0.1 Mg Tablet) 0.3 mg PO Q8H PRN PRN Reason: systolic bp >160 Clopidogrel Bisulfate (Clopidogrel 75 Mg Tablet) 75 mg PO QPM [facility] Last Admin: 04/17/22 17:20 Dose: 75 mg Cyclobenzaprine HCl (Cyclobenzaprine 10 Mg Tablet) 5 mg PO Q8H PRN PRN Reason: Muscle Spasm Last Admin: 04/15/22 20:05 Dose: 5 mg Dextrose (Dextrose 50% Syringe 50 Ml) 25 ml IVP ONCE PRN; Protocol PRN Reason: hypoglycemia protocol Dextrose (Dextrose 50% Syringe 50 Ml) 50 ml IVP PRN PRN; Protocol PRN Reason: hypoglycemia protocol Ferrous Gluconate (Ferrous Gluconate 324 Mg Tablet) 324 mg PO BIDWM [facility] Last Admin: 04/17/22 17:20 Dose: 324 mg Fluticasone Propionate (Fluticasone Nasal [place] 16gm Btl) 1 spray NASAL BID [facility] Last Admin: 04/17/22 17:21 Dose: 1 spray Furosemide (Furosemide 40 Mg Tablet) 40 mg PO BID [facility] Last Admin: 04/17/22 17:20 Dose: 40 mg Gabapentin (Gabapentin 100 Mg Capsule) 100 mg PO TID [facility] Last Admin: 04/17/22 20:31 Dose: 100 mg Glucagon (Glucagon 1 Mg/Ml Inj 1 Ml) 1 mg IM ONCE PRN; Protocol PRN Reason: Adult Acute Hypoglycemia Prot. Hydroxyzine Pamoate (Hydroxyzine 25 Mg Capsule) 25 mg PO QPM [facility] Last Admin: 04/17/22 17:20 Dose: 25 mg Dextrose (D5w) 500 mls @ 100 mls/hr IV ONCE PRN; Protocol PRN Reason: Adult Acute Hypoglycemia Prot Albumin Human (Albumin) 12.5 gm in 50 mls @ 60 mls/hr IV PRN PRN PRN Reason: Hypotension and/or symptomatic Vancomycin HCl 1,000 mg/ (Sodium Chloride) 250 mls @ 250 mls/hr IV MoWeFr [facility] Last Admin: 04/17/22 12:00 Dose: Not Given Insulin Glargine (Insulin Glargine 100 Units/1 Ml) 40 unit SUBCUT DAILY [facility] Last Admin: 04/17/22 08:28 Dose: 40 unit Insulin Human Lispro (Insulin Lispro 100 Unit/1 Ml) 0 unit SUBCUT WM&BEDTIME [facility]; Protocol Last Admin: 04/17/22 22:13 Dose: 4 unit Loperamide HCl (Loperamide 2 Mg Capsule) 2 mg PO Q6H PRN PRN Reason: Loose Stool Loratadine (Loratadine 10 Mg Tablet) 10 mg PO DAILY [facility] Last Admin: 04/17/22 08:17 Dose: 10 mg Losartan Potassium (Losartan 50 Mg Tablet) 50 mg PO BEDTIME [facility] Last Admin: 04/17/22 20:31 Dose: 50 mg Metoprolol Tartrate (Metoprolol Tartrate 50 Mg Tablet) 100 mg PO BID [facility] Last Admin: 04/17/22 17:21 Dose: 100 mg Mirtazapine (Mirtazapine 30 Mg Tablet) 30 mg PO BEDTIME [facility] Last Admin: 04/17/22 20:31 Dose: 30 mg Multivitamins (R-Rpqqzbs-Jfyfkvt C Tablet) 1 each PO QPM [facility] Last Admin: 04/17/22 17:19 Dose: 1 each Non-Formulary Medication (Solifenacin) 5 mg PO QAM [facility] Last Admin: 04/18/22 05:21 Dose: Not Given Ondansetron HCl (Ondansetron 2 Mg/Ml Sdv 2 Ml) 4 mg IVP Q6H PRN PRN Reason: NAUSEA AND VOMITING Oxycodone/Acetaminophen (Oxycodone-Apap 5-325 Mg Tablet) 1 tab PO Q6H PRN PRN Reason: for moderate pain Last Admin: 04/17/22 20:34 Dose: 1 tab Ropinirole HCl (Ropinirole 1 Mg Tablet) 0.5 mg PO QPM [facility] Last Admin: 04/17/22 17:19 Dose: 0.5 mg Sertraline HCl (Sertraline 50 Mg Tablet) 50 mg PO DAILY [facility] Last Admin: 04/17/22 08:17 Dose: 50 mg Thyroid (Thyroid 60 Mg Tablet) 90 mg PO DAILY [facility] Last Admin: 04/17/22 08:52 Dose: 90 mg Vitals/I&O/Wt Last Vital Signs Temp 98.0 F 04/18/22 07:27 Pulse 88 04/18/22 07:27 Resp 14 04/18/22 07:27 BP 121/68 04/18/22 07:27 Pulse Ox 96 04/18/22 07:27 O2 Del Method 04/18/22 07:27 04/17/22 04/18/22 04/18/22 22:59 06:59 14:59 Intake Total 360 / 840 Balance 360 / 840 Weight last 48 hrs Weight 112.582 kg Physical Exam Narrative: elderly female in bed, NARD vs noted heent- nc/at,eomi neck supple lungs clear RT sided ACW permacath heart irreg, tachy abd soft, nt, nd, + bs ext no edema in legs LUE AVF not working neuro- a,a,o x3 Data 04/18/22 05:07 04/18/22 05:07 Micro: Microbiology 04/12/22 19:21 Blood Culture - Final Blood NO GROWTH AFTER 5 DAYS 04/12/22 19:10 Blood Culture - Final Blood NO GROWTH AFTER 5 DAYS 04/17/22 08:00 Blood Culture - Preliminary Blood SPECIMEN COLLECTED A&P Assessment and plan (1) ESRD (end stage renal disease): 77 yr old female ESRD, MRSA bacateremia, charcots foot, h/o a fib. 1. Leukocytosis- afebrile - mrsa bacteremia on vanco. -Q if have to remove line -repeat blood cultures done on 04-17-22- follow up 2. ESRD- Hold HD today -mar bp meds -collect 24 hr urine- maybe can stay off of dialysis -replace potassium gently 3. HTN-BP stable- dec meds 4. anemia- hgb okay 5. hypokalemia- replete and monitor 6. DM- monitor glucose 7. h/o a fib 8. tsh now normal Plan as above -monitor if can stay off dialysis for some time Attestations Medical Necessity Statement*: bacteremia Time Spent in Patient Care: 16 - 35 minutes (>than 50% of time spent in counselling and/or direct pt care on unit) . Coding Level of Care Code Acute Liner Inserter for Dominick Baca Diagnoses ESRD (end stage renal disease) N18.6
[2022-04-18] MEDS: budesonide 0.5 mg/2 mL Neb INHALATION ×2 (07:50→21:20)
[2022-04-18] MEDS: ipratropium-albuterol 3 mL Neb INHALATION ×2 (07:50→21:20)
[2022-04-18] MEDS: gabapentin 100 mg Capsule PO ×3 (08:23→19:55)
[2022-04-18] MEDS: potassium chloride ER 20 mEq Tablet PO (08:23)
[2022-04-18] MEDS: FUROsemide 40 mg Tablet PO (08:23)
[2022-04-18] MEDS: ferrous gluconate 324 mg Tablet PO ×2 (08:24→16:53)
[2022-04-18] MEDS: carbidopa-levodopa 25-100mg Tablet 2 EACH PO ×3 (08:24→19:55)
[2022-04-18] MEDS: metoprolol tartrate 50 mg Tablet 100 MG PO ×2 (08:24→16:54)
[2022-04-18] MEDS: sertraline 50 mg Tablet PO (08:24)
[2022-04-18] MEDS: apixaban 5 mg Tablet PO ×2 (08:24→16:54)
[2022-04-18] MEDS: thyroid 60 mg Tablet 90 MG PO (08:24)
[2022-04-18] MEDS: loratadine 10 mg Tablet PO (08:24)
[2022-04-18] MEDS: fluticasone nasal spray 16gm Btl 1 SPRAY NASAL ×2 (08:25→16:55)
[2022-04-18 12:03] LABS: Glucose Point of Care 185 mg/dL (70-110)
[2022-04-18] MEDS: insulin lispro 100 unit/1 mL SUBCUT ×2 (13:50→23:53)
[2022-04-18] MEDS: ropinirole 1 mg Tablet 0.5 MG PO (16:53)
[2022-04-18] MEDS: clopidogrel 75 mg Tablet PO (16:54)
[2022-04-18] MEDS: b-complex-vitamin c Tablet 1 EACH PO (16:55)
[2022-04-18] MEDS: hyDROXYzine 25 mg Capsule PO (16:55)
[2022-04-18 17:34] LABS: Glucose Point of Care 119 mg/dL (70-110)
--- NOTE | 2022-04-18 19:05 | PM.PN ---
Subjective Subjective: He denies any new symptoms around the catheter. He reports being concerned about discontinuing dialysis entirely due to easy propensity for anasarca in the past. Same concerns voiced by her daughter. Denies chest pain or shortness of breath. Medications: Reviewed: Yes Vitals/I&O/Wt Last Vital Signs Temp 97.8 F 04/18/22 15:23 Pulse 85 04/18/22 15:23 Resp 14 04/18/22 15:23 BP 157/77 04/18/22 15:23 Pulse Ox 94 04/18/22 15:23 O2 Del Method 04/18/22 15:23 04/18/22 04/18/22 04/18/22 06:59 14:59 22:59 Intake Total 600 / 600 120 / 720 Output Total 400 / 400 Balance 600 / 600 -280 / 320 Weight last 48 hrs Weight 112.582 kg Physical Exam Const: COMMON NORMALS: patient oriented x3 and alert GENERAL APPEARANCE: cooperative ORIENTATION/CONSCIOUSNESS: Yes awake HENMT: COMMON NORMALS: oropharynx normal Neck/C-Spine: COMMON NORMALS: no JVD Chest: OTHER: Right chest HD catheter without surrounding erythema, swelling, no drainage. Resp: COMMON NORMALS: normal respiratory effort and clear to auscultation bilaterally AUSCULTATION: clear to auscultation bilaterally Cardio: COMMON NORMALS: no JVD, regular rhythm, S1 normal heart sound present, S2 normal heart sound present and No murmurs present (Cardio) RHYTHM: regular rhythm HEART SOUNDS: S1 normal heart sound present and S2 normal heart sound present GI: COMMON NORMALS: Normal to inspection, nondistended, normoactive bowel sounds present, Soft to palpation and non-tender PALPATION: Yes Soft to palpation Extremity: COMMON NORMALS: no joint enlargement and no pedal edema Neuro: COMMON NORMALS: patient oriented x3 and moves all extremities SENSORIUM/ORIENTATION: Yes alert Skin: COMMON NORMALS: no rashes or lesions noted GENERAL SKIN EXAM: no rashes or lesions noted Data 04/18/22 05:07 04/18/22 05:07 Micro: Microbiology 04/17/22 08:00 Blood Culture - Preliminary Blood NEGATIVE TO DATE 04/12/22 19:21 Blood Culture - Final Blood NO GROWTH AFTER 5 DAYS 04/12/22 19:10 Blood Culture - Final Blood NO GROWTH AFTER 5 DAYS A&P Assessment and plan (1) MRSA bacteremia: Recurrence of bacteremia so far. Leukocytosis, persistent, although with decreased down to 20.4. We will follow-up additional role tomorrow. Vancomycin level is therapeutic. Discussed with pharmacy, we will follow-up additional levels and days to come. She is reluctant to discontinue dialysis due to concerns of easy development of anasarca. However, if dialysis does end up being discontinued will need to establish a regimen for continued antibiotic which will be somewhat more challenging given her reduced renal function. So far without recurrence of bacteremia on repeat blood cultures. Additional cultures were repeated today. Maintain catheter at this time. In case positive blood cultures were further rise in leukocytosis catheter may need to be removed. Recheck CBC. Continue vancomycin With history of recent MRSA pneumonia. Patient does have a port to which she gets her dialysis. Patient also has a history of Charcot foot for which she reportedly is getting antibiotics and wound care as an outpatient for infection for last 4 weeks. As per podiatry team Charcot's foot ulcers looks healthy without any signs of infection. Appreciate podiatry recommendations continue wound care accordingly. Appreciate ID recommendations. Repeat blood cultures sent in the ER. Port cultures also sent. We will continue to follow cultures. May need to remove the port and get TANVI. Given history of port in place through which patient gets dialysis patient would most likely need at least 6 weeks of IV antibiotics with dialysis going forward after first negative blood culture. Could not reach her daughter for update by phone. (2) ESRD (end stage renal disease): Appreciate nephrology recommendations. (3) Pneumonia: On room air. Doing well. History of MRSA pneumonia recently. Already on vancomycin. We will continue to monitor. Oxygen supplementation keeping saturation over 90%. DuoNebs as needed. Continue with Flonase. Prednisone wean down to 10 mg daily. (4) Diarrhea: On antibiotics for last 4 weeks orally for Charcot's foot infection. Patient is not aware what kind of antibiotic. Stool studies negative for C. difficile. Unremarkable apart from positive Hemoccult. (5) Charcot's joint of left foot: (6) Uncontrolled insulin dependent diabetes mellitus: Continue home dose of Lantus. For sliding scale at moderate dose protocol before meals and at bedtime. A1c 6.8 (7) Hypertension: Goal blood pressure less than 140/90 mmHg. Continue with home dose of metoprolol, losartan and clonidine as needed. Hydralazine added 25 mg 4 times daily. (8) S/P dialysis catheter insertion: (9) Iron deficiency anemia: Continue with oral iron supplementation. (10) Neuropathy: Plan Full code. Renal dialysis diet. Heparin 5000 every 12 hourly. Protonix for PUD prophylaxis. Attestations Medical Necessity Statement*: Continue admission for assessment management of possibility of dialysis catheter infection, complicated bacteremia, or other possible source, inability with ESRD on hemodialysis. Coding Level of Care Code Acute Core Shaper Top for [facility] Fwd Diagnoses MRSA bacteremia R78.81; B95.62 ESRD (end stage renal disease) N18.6 Pneumonia J18.9 Diarrhea R19.7 Charcot's joint of left foot M14.672 Uncontrolled insulin dependent diabetes mellitus Hypertension I10 S/P dialysis catheter insertion Z95.828; Z99.2 Iron deficiency anemia D50.9 Neuropathy G62.9
--- NOTE | 2022-04-18 19:52 | PC.NURSE ---
Addendum entered by Glenda Pascual RN 04/18/22 20:34: PRN Imodium given. Original Note: Unable to collect urine. Patient having loose bowel with each void.
[2022-04-18] MEDS: oxyCODONE-APAP 5-325 mg Tablet 1 TAB PO (19:54)
[2022-04-18] MEDS: cyclobenzaprine 10 mg Tablet 5 MG PO (19:54)
[2022-04-18] MEDS: atorvastatin 40 mg Tablet PO (19:55)
[2022-04-18] MEDS: mirtazapine 30 mg Tablet PO (19:55)
[2022-04-18] MEDS: lanolin oint 7 gm 1 APPLIC TOPICAL (20:34)
[2022-04-18] MEDS: loperamide 2 mg Capsule PO (20:34)
[2022-04-18 22:56] LABS: Glucose Point of Care 192 mg/dL (70-110)
--- NOTE | 2022-04-18 23:55 | PC.NURSE ---
Patient states that Imodium didn't help. States my stools are still just like water.
[2022-04-19] VITALS (9 sets, daily range): BP systolic 110–150; BP diastolic 52–89; PULSE 70–110; RESP 16–18; TEMP 36.5–36.7; O2SAT 93–98
[2022-04-19 04:10] LABS: Basophils % 0.3 %; Eosinophils # 0.2 10^3/uL (0.0-0.8); Eosinophils % 1.3 %; Hematocrit 31.6 % (37.0-47.0); Hemoglobin 9.5 g/dL (11.5-15.3); Lymphocytes # 1.9 10^3/uL (0.8-4.8); Lymphocytes % 12.7 %; Mean Corpuscular HGB Conc 30.1 g/dL (30.0-36.0); Mean Corpuscular Hemoglobin 31.1 pg (28.0-34.0); Mean Corpuscular Volume 103.6 fl (81-99); Monocytes # 0.9 10^3/uL (0.2-0.9); Monocytes % 5.9 %; Neutrophils # 11.96 10^3/uL (1.8-7.7); Neutrophils % 78.9 %; Nucleated Red Blood Cells % 0 %; Platelet Count 234 10^3/cmm (130-400); Red Blood Count 3.05 10^6/uL (4.1-5.3); Red Cell Distribution Width 16.7 % (12.1-15.1); White Blood Count 15.1 10^3/uL (4.0-10.0)
[2022-04-19 04:36] LABS: Alanine Aminotransferase < 5 U/L (0-33); Albumin Level 3.3 g/dL (3.5-5.2); Alkaline Phosphatase 89 U/L (35-105); Anion Gap 19.2 (5-19); Aspartate Amino Transferase 9 U/L (0-32); Blood Urea Nitrogen 69 mg/dL (8-23); Calcium 8.3 mg/dL (8.5-10.5); Carbon Dioxide 19 mmol/L (22-29); Chloride 106 mmol/L (98-107); Globulin 3.1 g/dL (1.3-4.6); Glucose 119 mg/dL (65-115); Magnesium 1.7 mg/dL (1.7-2.3); Osmolality Calculated 313 mOsm/kg (285-295); Potassium 3.2 mmol/L (3.5-5.1); Sodium 141 mmol/L (136-145); Total Bilirubin 0.3 mg/dL (0.15-1.2); Total Protein 6.4 g/dL (6.6-8.7)
[2022-04-19] MEDS: loperamide 2 mg Capsule PO (04:46)
[2022-04-19] MEDS: cyclobenzaprine 10 mg Tablet 5 MG PO (04:46)
[2022-04-19] MEDS: oxyCODONE-APAP 5-325 mg Tablet 1 TAB PO (04:46)
[2022-04-19 05:01] LABS: Vancomycin Trough 19.9 ug/mL (10-15)
[2022-04-19 06:57] LABS: Glucose Point of Care 144 mg/dL (70-110)
--- NOTE | 2022-04-19 07:11 | PM.PN ---
Subjective Subjective: cough, sob. still with diarrhea. is weak. no n/v/cp/egan. remains afebrile Medications: Reviewed: Yes Medication Review Details: Current Medications Acetaminophen (Acetaminophen 500 Mg Tablet) 500 mg PO Q4H PRN PRN Reason: fever Last Admin: 04/16/22 15:28 Dose: 500 mg Albuterol/Ipratropium (Ipratropium-Albuterol 3 Ml Neb) 3 ml INHALATION Q6H PRN PRN Reason: SHORTNESS OF BREATH Last Admin: 04/18/22 21:20 Dose: 3 ml Apixaban (Apixaban 5 Mg Tablet) 5 mg PO BID REPLACED BY [facility] Last Admin: 04/18/22 16:54 Dose: 5 mg Atorvastatin Calcium (Atorvastatin 40 Mg Tablet) 40 mg PO BEDTIME@21 REPLACED BY [facility] Last Admin: 04/18/22 19:55 Dose: 40 mg Benzonatate (Benzonatate 100 Mg Capsule) 100 mg PO Q8H PRN PRN Reason: Cough Budesonide (Budesonide 0.5 Mg/2 Ml Neb) 0.5 mg INHALATION BID.RESPIRATORY REPLACED BY [facility] Last Admin: 04/18/22 21:20 Dose: 0.5 mg Carbidopa/Levodopa (Carbidopa-Levodopa 25-100mg Tablet) 2 each PO TID [facility]PL[facility] Last Admin: 04/18/22 19:55 Dose: 2 each Clonidine HCl (Clonidine 0.1 Mg Tablet) 0.3 mg PO Q8H PRN PRN Reason: systolic bp >160 Clopidogrel Bisulfate (Clopidogrel 75 Mg Tablet) 75 mg PO QPM REPLACED BY [facility] Last Admin: 04/18/22 16:54 Dose: 75 mg Cyclobenzaprine HCl (Cyclobenzaprine 10 Mg Tablet) 5 mg PO Q8H PRN PRN Reason: Muscle Spasm Last Admin: 04/19/22 04:46 Dose: 5 mg Dextrose (Dextrose 50% Syringe 50 Ml) 25 ml IVP ONCE PRN; Protocol PRN Reason: hypoglycemia protocol Dextrose (Dextrose 50% Syringe 50 Ml) 50 ml IVP PRN PRN; Protocol PRN Reason: hypoglycemia protocol Ferrous Gluconate (Ferrous Gluconate 324 Mg Tablet) 324 mg PO BIDWM REPLACED BY [facility] Last Admin: 04/18/22 16:53 Dose: 324 mg Fluticasone Propionate (Fluticasone Nasal [place] 16gm Btl) 1 spray NASAL BID REPLACED BY [facility] Last Admin: 04/18/22 16:55 Dose: 1 spray Furosemide (Furosemide 40 Mg Tablet) 40 mg PO DAILY@0800 REPLACED BY [facility] Last Admin: 04/18/22 08:23 Dose: 40 mg Gabapentin (Gabapentin 100 Mg Capsule) 100 mg PO TID REPLACED BY [facility] Last Admin: 04/18/22 19:55 Dose: 100 mg Glucagon (Glucagon 1 Mg/Ml Inj 1 Ml) 1 mg IM ONCE PRN; Protocol PRN Reason: Adult Acute Hypoglycemia Prot. Hydroxyzine Pamoate (Hydroxyzine 25 Mg Capsule) 25 mg PO QPM REPLACED BY [facility] Last Admin: 04/18/22 16:55 Dose: 25 mg Dextrose (D5w) 500 mls @ 100 mls/hr IV ONCE PRN; Protocol PRN Reason: Adult Acute Hypoglycemia Prot Albumin Human (Albumin) 12.5 gm in 50 mls @ 60 mls/hr IV PRN PRN PRN Reason: Hypotension and/or symptomatic Vancomycin HCl 1,000 mg/ (Sodium Chloride) 250 mls @ 250 mls/hr IV MoWeFr REPLACED BY [facility] Last Admin: 04/17/22 12:00 Dose: Not Given Insulin Glargine (Insulin Glargine 100 Units/1 Ml) 40 unit SUBCUT DAILY REPLACED BY [facility] Last Admin: 04/18/22 11:15 Dose: Not Given Insulin Human Lispro (Insulin Lispro 100 Unit/1 Ml) 0 unit SUBCUT WM&BEDTIME REPLACED BY [facility]; Protocol Last Admin: 04/18/22 23:53 Dose: 6 unit Lanolin (Lanolin Oint 7 Gm) 1 applic TOPICAL PRN PRN PRN Reason: DRYNESS Last Admin: 04/18/22 20:34 Dose: 1 applic Loperamide HCl (Loperamide 2 Mg Capsule) 2 mg PO Q6H PRN PRN Reason: Loose Stool Last Admin: 04/19/22 04:46 Dose: 2 mg Loratadine (Loratadine 10 Mg Tablet) 10 mg PO DAILY REPLACED BY [facility] Last Admin: 04/18/22 08:24 Dose: 10 mg Metoprolol Tartrate (Metoprolol Tartrate 50 Mg Tablet) 100 mg PO BID REPLACED BY [facility] Last Admin: 04/18/22 16:54 Dose: 100 mg Mirtazapine (Mirtazapine 30 Mg Tablet) 30 mg PO BEDTIME REPLACED BY [facility] Last Admin: 04/18/22 19:55 Dose: 30 mg Multivitamins (G-Ntalexq-Cfonhrp C Tablet) 1 each PO QPM REPLACED BY [facility] Last Admin: 04/18/22 16:55 Dose: 1 each Non-Formulary Medication (Solifenacin) 5 mg PO QAM REPLACED BY [facility] Last Admin: 04/18/22 23:55 Dose: Not Given Ondansetron HCl (Ondansetron 2 Mg/Ml Sdv 2 Ml) 4 mg IVP Q6H PRN PRN Reason: NAUSEA AND VOMITING Oxycodone/Acetaminophen (Oxycodone-Apap 5-325 Mg Tablet) 1 tab PO Q6H PRN PRN Reason: for moderate pain Last Admin: 04/19/22 04:46 Dose: 1 tab Ropinirole HCl (Ropinirole 1 Mg Tablet) 0.5 mg PO QPM REPLACED BY [facility] Last Admin: 04/18/22 16:53 Dose: 0.5 mg Sertraline HCl (Sertraline 50 Mg Tablet) 50 mg PO DAILY REPLACED BY [facility] Last Admin: 04/18/22 08:24 Dose: 50 mg Thyroid (Thyroid 60 Mg Tablet) 90 mg PO DAILY REPLACED BY [facility] Last Admin: 04/18/22 08:24 Dose: 90 mg Vitals/I&O/Wt Last Vital Signs Temp 97.7 F 04/19/22 03:29 Pulse 99 04/19/22 03:29 Resp 16 04/19/22 04:46 BP 150/69 04/19/22 03:29 Pulse Ox 93 04/19/22 03:29 O2 Del Method 04/19/22 03:29 04/18/22 04/19/22 04/19/22 22:59 06:59 14:59 Intake Total 120 / 720 240 / 960 Output Total 400 / 400 601 / 1001 Balance -280 / 320 -361 / -41 Physical Exam Narrative: elderly female in bed vs noted heent- nc/at,eomi neck supple lungs crackles/ wheezes RT sided ACW permacath heart irreg, irreg abd soft, nt, nd, + bs ext no edema in legs LUE AVF not working neuro- a,a,o x3 Data 04/19/22 03:57 04/19/22 03:57 Micro: Microbiology 04/17/22 08:00 Blood Culture - Preliminary Blood NEGATIVE TO DATE A&P Assessment and plan (1) ESRD (end stage renal disease): 77 yr old female ESRD, MRSA bacateremia, charcots foot, h/o a fib. 1. Leukocytosis- afebrile - mrsa bacteremia on vanco. -Q if have to remove line -repeat blood cultures done on 04-17-22- follow up -q if due to charcots foot stool for c diff neg- consider repeat vanco by level 2. ESRD- HD today- 3 hrs, 3 k, remove 2l as tolerated -replace k -dec bp meds -collect 24 hr urine- maybe can stay off of dialysis -replace potassium gently -likely HD BIW 3. HTN-BP stable- dec meds 4. anemia- hgb 9.5 tsat 19% check ferritin- iv iron, Likely CHANDRAKANT 5. hypokalemia- replete and monitor 6. DM- monitor glucose 7. h/o a fib- replete k 8. tsh now normal Plan as above -seen and examined w/ RN, telehealth visit time spent 30 minutes Attestations Medical Necessity Statement*: per medicine- charcots foot MRSA bacteremia Time Spent in Patient Care: 16 - 35 minutes (>than 50% of time spent in counselling and/or direct pt care on unit). Coding Level of Care Code Acute Horse Racing Manager for Dominick Fwjake Diagnoses ESRD (end stage renal disease) N18.6
[2022-04-19] MEDS: budesonide 0.5 mg/2 mL Neb INHALATION (07:49)
[2022-04-19] MEDS: thyroid 60 mg Tablet 90 MG PO (08:33)
[2022-04-19] MEDS: sertraline 50 mg Tablet PO (08:33)
[2022-04-19] MEDS: potassium chloride ER 20 mEq Tablet 40 MEQ PO (08:33)
[2022-04-19] MEDS: FUROsemide 40 mg Tablet PO (08:33)
[2022-04-19] MEDS: carbidopa-levodopa 25-100mg Tablet 2 EACH PO ×2 (08:33→14:48)
[2022-04-19] MEDS: gabapentin 100 mg Capsule PO ×2 (08:35→14:48)
[2022-04-19] MEDS: metoprolol tartrate 50 mg Tablet 100 MG PO ×2 (08:35→19:05)
[2022-04-19] MEDS: apixaban 5 mg Tablet PO ×2 (08:35→19:06)
[2022-04-19] MEDS: loratadine 10 mg Tablet PO (08:35)
[2022-04-19] MEDS: ferrous gluconate 324 mg Tablet PO ×2 (08:35→19:11)
[2022-04-19] MEDS: insulin lispro 100 unit/1 mL SUBCUT ×2 (08:36→13:11)
[2022-04-19] MEDS: fluticasone nasal spray 16gm Btl 1 SPRAY NASAL (08:39)
--- NOTE | 2022-04-19 09:02 | PC.SOCIAL ---
IMM update IMM Updated with patient. Verbalized an understanding. Copy Pg 2 provided. Initialled, dated, timed, and placed in chart.
[2022-04-19] MEDS: insulin glargine 100 units/1 mL 40 UNIT SUBCUT (11:10)
[2022-04-19 11:36] LABS: Glucose Point of Care 173 mg/dL (70-110)
[2022-04-19 11:52] LABS: Ferritin 1197 ng/mL (15-150)
[2022-04-19 12:00] LABS: Calcium 8.2 mg/dL (8.5-10.5); Parathyroid Hormone 202.6 pg/mL (15-65)
--- NOTE | 2022-04-19 15:39 | PM.DCS ---
Discharge Providers Date of Admission: 04/12/22 20:54 Date of Discharge: April 19, 2022 Attending Provider at Admission: Gonzalo Loaiza MD Attending Provider at Discharge: Prince Yoon Primary Care Provider: MILAGRO Kent Diagnoses at Discharge Discharge Diagnosis (1) ESRD (end stage renal disease): Status: Acute Other Information Additional DC diagnoses/information: MRSA bacteremia Pneumonia Diarrhea Charcot's joint of left foot Diabetes HTN Iron deficiency anemia Neuropathy Reason for Visit Reason for Visit: Sent for possible MRSA infection in blood Hospital Course Hospital Course 77-year-old lady with history of ESRD on hemodialysis, Charcot foot chronically on antibiotics for the last 4 weeks with previously infected left foot treated by wound care, recently hospitalized with discharged on 04/10, admitted due to hypoxia, with finding of MRSA pneumonia. Blood cultures from prior admission positive for MRSA. On return on 04/12 she was started on antibiotic coverage. She has remained afebrile. She has had leukocytosis going up to as high as 23.7. C. difficile and other stool studies apart from Hemoccult were negative. Hemoccult positive. Repeat cultures were sent from dialysis catheter and peripherally. So far have remained all negative. Leukocytosis consider initially possibly secondary to steroids, possibly pneumonia. In the office catheter was considered likely needing removal in case of positive repeat blood cultures or persistent leukocytosis. Multiple wounds over lower extremity retaken under consideration of possible potential source as well, but none appear to be deep-seated abscesses or osteomyelitis. Known Charcot foot for which she follows with podiatry thought not likely to be a source. Treatment continued with vancomycin in the hospital and arranged for continuation of treatment with vancomycin with dialysis after discharge with dosing based on trough levels, with target 15-20. Continue reevaluation of her fistula as well which if can be made functional will also allow for removal of Dialysis catheter. As per nephrology assessment he also is can possibly also be reduced down to twice weekly. Today she was complaining of some fullness/underwater sensation in her left ear. No erythema or inflammation in external canal, TM visualized with mild bulging, no fluid or drainage, no bleeding or other signs of acute infection. Asked to take lozenges, please reassess for resolution. Physical Exam Const: COMMON NORMALS: patient oriented x3 and alert GENERAL APPEARANCE: cooperative ORIENTATION/CONSCIOUSNESS: Yes awake HENMT: COMMON NORMALS: oropharynx normal Neck/C-Spine: COMMON NORMALS: no JVD Chest: OTHER: Right chest HD catheter without surrounding erythema, swelling, no drainage. Resp: COMMON NORMALS: normal respiratory effort and clear to auscultation bilaterally AUSCULTATION: clear to auscultation bilaterally Cardio: COMMON NORMALS: no JVD, regular rhythm, S1 normal heart sound present, S2 normal heart sound present and No murmurs present (Cardio) RHYTHM: regular rhythm HEART SOUNDS: S1 normal heart sound present and S2 normal heart sound present GI: COMMON NORMALS: Normal to inspection, nondistended, normoactive bowel sounds present, Soft to palpation and non-tender PALPATION: Yes Soft to palpation Extremity: COMMON NORMALS: no joint enlargement and no pedal edema Neuro: COMMON NORMALS: patient oriented x3 and moves all extremities SENSORIUM/ORIENTATION: Yes alert Skin: COMMON NORMALS: no rashes or lesions noted GENERAL SKIN EXAM: no rashes or lesions noted Discharge Data Studies Completed and Pending Completed Studies During Hospitalization Category Date Time Status CXRP [XR chest 1V portable [id number]] Stat Exams 04/12/22 18:43 Completed CV. echo wo/w contrast [id number] Routine Ultrasound 04/13/22 08:52 Completed Pending at discharge Category Date Time Status Blood Culture Stat Lab 04/14/22 23:40 Results Blood Culture Stat Lab 04/17/22 07:15 Results Complete Blood Count w/Auto AM LABS Lab 04/20/22 04:00 Ordered Comprehensive Metabolic Panel AM LABS Lab 04/20/22 04:00 Ordered Comprehensive Metabolic Panel AM LABS Lab 04/21/22 04:00 Ordered Comprehensive Metabolic Panel AM LABS Lab 04/22/22 04:00 Ordered Creatinine 24 Hour Urine Routine Lab 04/18/22 07:50 Ordered Magnesium AM LABS Lab 04/20/22 04:00 Ordered Magnesium AM LABS Lab 04/21/22 04:00 Ordered Magnesium AM LABS Lab 04/22/22 04:00 Ordered Phosphorus AM LABS Lab 04/20/22 04:00 Ordered Phosphorus AM LABS Lab 04/21/22 04:00 Ordered Phosphorus AM LABS Lab 04/22/22 04:00 Ordered Total Protein 24 Hour Urine Routine Lab 04/18/22 07:50 Uncollected Vancomycin Random AM LABS Lab 04/20/22 04:00 Ordered Radiology Impressions Chest X-Ray 04/12/22 18:43 IMPRESSION: Cardiomegaly with suspected mild interstitial pulmonary edema. Laboratory Results WBC 15.1 10^3/uL (4.0-10.0) H 04/19/22 03:57 RBC 3.05 10^6/uL (4.1-5.3) L 04/19/22 03:57 Hgb 9.5 g/dL (11.5-15.3) L 04/19/22 03:57 Hct 31.6 % (37.0-47.0) L 04/19/22 03:57 MCV 103.6 fl (81-99) H 04/19/22 03:57 MCH 31.1 pg (28.0-34.0) 04/19/22 03:57 MCHC 30.1 g/dL (30.0-36.0) 04/19/22 03:57 RDW 16.7 % (12.1-15.1) H 04/19/22 03:57 Plt Count 234 10^3/cmm (130-400) 04/19/22 03:57 MPV 10.0 fL (7.4-10.4) 04/19/22 03:57 Neut % (Auto) 78.9 % 04/19/22 03:57 Lymph % (Auto) 12.7 % 04/19/22 03:57 Sharkey % (Auto) 5.9 % 04/19/22 03:57 Eos % (Auto) 1.3 % 04/19/22 03:57 Baso % (Auto) 0.3 % 04/19/22 03:57 Neut # (Auto) 11.96 10^3/uL (1.8-7.7) H 04/19/22 03:57 Lymph # (Auto) 1.9 10^3/uL (0.8-4.8) 04/19/22 03:57 Sharkey # (Auto) 0.9 10^3/uL (0.2-0.9) 04/19/22 03:57 Eos # (Auto) 0.2 10^3/uL (0.0-0.8) 04/19/22 03:57 Baso # (Auto) 0.0 10^3/uL (0.0-0.1) 04/19/22 03:57 Nucleated RBC % (auto) 0 % 04/19/22 03:57 Total Counted 100 (0-100) 04/12/22 19:10 Atypical Lymphs % 1.0 % (0-5) 04/12/22 19:10 Absolute Neutrophils 12.5 10^3/cmm (1.4-6.5) H 04/12/22 19:10 Segmented Neutrophils 83 % 04/12/22 19:10 Abs Segm Neuts (Man) 12.2 10/cmm (1.6-7.1) H 04/12/22 19:10 Band Neutrophils 2.0 % 04/12/22 19:10 Abs Band Neuts (Man) 0.3 10^3/cmm (0.0-1.2) 04/12/22 19:10 Absolute Lymphocytes 1.2 10^3/cmm (1.2-3.4) 04/12/22 19:10 Lymphocytes (Manual) 7 % 04/12/22 19:10 Monocytes (Manual) 4.0 % 04/12/22 19:10 Absolute Monocytes 0.6 10^3/cmm (0.1-0.6) 04/12/22 19:10 Eosinophils (Manual) 0 % 04/12/22 19:10 Absolute Eosinophils 0.0 10^3/cmm (0.0-0.7) 04/12/22 19:10 Basophils (Manual) 0.0 % 04/12/22 19:10 Absolute Basophils 0.0 10^3/cmm (0.0-0.2) 04/12/22 19:10 Metamyelocytes 1.0 % 04/12/22 19:10 Myelocytes 2.0 % 04/12/22 19:10 Nucleated RBCs 1.0 /100WBC (0-1) 04/12/22 19:10 Nucleated RBCs # 0.0 /100WBC 04/19/22 03:57 Platelet Estimate Normal (Normal) 04/12/22 19:10 Polychromasia 1+ H 04/12/22 19:10 Anisocytosis 1+ H 04/12/22 19:10 Macrocytosis 1+ H 04/12/22 19:10 Sodium 141 mmol/L (136-145) 04/19/22 03:57 Potassium 3.2 mmol/L (3.5-5.1) L 04/19/22 03:57 Chloride 106 mmol/L (98-107) 04/19/22 03:57 Carbon Dioxide 19 mmol/L (22-29) L 04/19/22 03:57 Anion Gap 19.2 (5-19) H 04/19/22 03:57 BUN 69 mg/dL (8-23) H 04/19/22 03:57 Creatinine 4.3 mg/dL (0.5-0.9) H 04/19/22 03:57 GFR Calculation Not Reportable 04/19/22 03:57 Glucose 119 mg/dL (65-115) H 04/19/22 03:57 POC Glucose 173 mg/dL (70-110) H 04/19/22 11:20 Estimat Average Glucose 148 04/14/22 03:52 Hemoglobin A1c 6.8 % (4.0-6.0) H 04/14/22 03:52 Calculated Osmolality 313 mOsm/kg (285-295) H 04/19/22 03:57 Calcium 8.3 mg/dL (8.5-10.5) L 04/19/22 03:57 Phosphorus 5.0 mg/dL (2.5-4.5) H 04/19/22 03:57 Magnesium 1.7 mg/dL (1.7-2.3) 04/19/22 03:57 Ferritin 1197 ng/mL (15-150) H 04/19/22 03:57 Total Bilirubin 0.3 mg/dL (0.15-1.2) 04/19/22 03:57 AST 9 U/L (0-32) 04/19/22 03:57 ALT < 5 U/L (0-33) 04/19/22 03:57 Alkaline Phosphatase 89 U/L (35-105) 04/19/22 03:57 C-Reactive Protein 21.8 mg/L (0.0-4.9) H 04/13/22 03:48 Total Protein 6.4 g/dL (6.6-8.7) L 04/19/22 03:57 Albumin 3.3 g/dL (3.5-5.2) L 04/19/22 03:57 Globulin 3.1 g/dL (1.3-4.6) 04/19/22 03:57 Triglycerides 218 mg/dL (0-150) H 04/14/22 03:52 Cholesterol 108 mg/dL (0-200) 04/14/22 03:52 LDL Cholesterol, Calc 30 mg/dL (50-129) L 04/14/22 03:52 Total VLDL Cholesterol 44 mg/dL (0-30) H 04/14/22 03:52 HDL Cholesterol 34 mg/dL (60-100) L 04/14/22 03:52 Cholesterol/HDL Ratio 3.18 mg/dL (0.0-4.40) 04/14/22 03:52 Vitamin B12 539 pg/mL (232-1245) 04/13/22 03:48 Folate > 20.0 ng/mL (4.8-37.3) 04/12/22 19:10 Procalcitonin 0.27 ng/mL (0-0.5) 04/13/22 03:48 PTH Intact 202.6 pg/mL (15-65) H 04/19/22 03:57 Calcium (PTH Intact) 8.2 mg/dL (8.5-10.5) L 04/19/22 03:57 Vancomycin Trough 19.9 ug/mL (10-15) H 04/19/22 03:57 Vitals Last Vital Signs Temp 98.1 F 04/19/22 12:00 Pulse 92 04/19/22 12:00 Resp 18 04/19/22 12:00 BP 119/52 04/19/22 12:00 Pulse Ox 97 04/19/22 12:00 O2 Del Method 04/19/22 07:50 Discharge Plan Discharge Patient Disposition: Home Condition: Stable Prescriptions: New vancomycin 750 mg recon soln See Rx Instructions .ROUTE .COMPLEX Qty: 7 0RF Rx Instructions: With dialysis. Dose based on Vanc level, target 15-20. Until 05/03/22 Continued losartan 50 mg Tablet 50 mg PO BEDTIME furosemide [Lasix] 40 mg Tablet 40 mg PO BID promethazine-DM 6.25-15 mg/5 mL Syrup 5 ml PO Q4H PRN (Reason: Cough) Neosporin (urw-ykg-wyzsl) 3.5mg-400 unit- 5,000 unit/gram Ointment See Rx Instructions .ROUTE .COMPLEX Rx Instructions: apply to bottom of left foot topically one time a day -clean with ns apply ointment and bandage daily till healed ipratropium-albuterol 0.5 mg-3 mg(2.5 mg base)/3 mL Solution For Nebulization 3 ml INHALATION Q6H PRN (Reason: Cough) albuterol sulfate 2.5 mg /3 mL (0.083 %) solution for nebulization 2.5 mg inhalation Q6H PRN (Reason: Shortness Of Breath) metoprolol tartrate 100 mg Tablet 100 mg PO BID ondansetron HCl 4 mg Tablet 4 mg PO Q8H PRN (Reason: Nausea And Vomiting) clonidine HCl 0.3 mg Tablet 0.3 mg PO Q8H PRN (Reason: systolic bp >160) loperamide [Imodium A-D] 2 mg Tablet 2 mg PO Q6H PRN (Reason: Loose Stool) metolazone 5 mg Tablet 5 mg PO QAM clopidogrel [Plavix] 75 mg Tablet 75 mg PO QPM acetaminophen 500 mg Tablet 1,000 mg PO Q6H PRN (Reason: Pain) simvastatin 40 mg Tablet 40 mg PO BEDTIME@21 benzonatate 100 mg Capsule 100 mg PO Q8H PRN (Reason: Cough) diphenhydramine HCl [Benadryl] 25 mg Capsule 25 mg PO BEDTIME PRN (Reason: Itching) mirtazapine 30 mg Tablet 30 mg PO BEDTIME@21 ropinirole 0.5 mg Tablet 0.5 mg PO QPM budesonide 0.5 mg/2 mL Suspension For Nebulization 0.5 mg inhalation Q12H Rx Instructions: for 5 days (start date 04/06/22) hydroxyzine HCl 25 mg Tablet 25 mg PO Q8H PRN (Reason: Itching) gabapentin 100 mg Capsule 100 mg PO TID Renal Caps 1 mg Capsule 1 cap PO QPM albuterol sulfate [ProAir HFA] 90 mcg/actuation Hfa Aerosol Inhaler 2 puff INHALATION Q6H PRN (Reason: Wheezing) carbidopa-levodopa 25-100 mg Tablet 2 tab PO TID sertraline 50 mg Tablet 50 mg PO DAILY hydroxyzine pamoate 25 mg Capsule 25 mg PO QPM insulin aspart U-100 [Novolog Flexpen U-100 Insulin] 100 unit/mL (3 mL) Insulin Pen See Rx Instructions .ROUTE .COMPLEX Rx Instructions: sliding scale three times a day 150-200=3 units 201-250=5 units 251-300=7 units 301-350=9 units 351-400=11 units call provider for bs <60 or >400 cyclobenzaprine 5 mg Tablet 5 mg PO Q8H PRN (Reason: Muscle Spasm) solifenacin 5 mg Tablet 5 mg PO QAM Advair HFA 115-21 mcg/actuation Hfa Aerosol Inhaler 2 puff INHALATION BID insulin glargine [Lantus Solostar U-100 Insulin] 100 unit/mL (3 mL) Insulin Pen 40 unit SUBCUT DAILY@06 amino acids-protein hydrolys 15-101 gram-kcal/30 mL Liquid See Rx Instructions .ROUTE .COMPLEX Rx Instructions: 30ml by mouth daily cholecalciferol (vitamin D3) [Vitamin D3] 50 mcg (2,000 unit) Capsule 6,000 unit PO DAILY thyroid (pork) [Keldron Thyroid] 90 mg Tablet 90 mg PO DAILY Lumigan 0.01 % Drops 1 drp OPHTHALMIC (EYE) BEDTIME oxycodone 7.5 mg Tablet, Oral Only 7.5 mg PO Q6H PRN (Reason: Pain) Eliquis 5 mg Tablet 5 mg PO BID Rx Instructions: ON HOLD FROM 03/30/22 -04/30/2022 (DME) calcium alginate 2 X 2 Bandage TOPICAL Rx Instructions: apply to left lower leg topically one time a day for diabetic ulcer Biofreeze (menthol) 4 % Gel See Rx Instructions .ROUTE .COMPLEX Rx Instructions: apply to bilat feet topically every 4 hours as needed for pain to feet cefdinir 300 mg capsule See Rx Instructions .ROUTE .COMPLEX 6 Days Qty: 5 0RF Rx Instructions: 300mg po in the afternoon every other day for after dialysis on dialysis days Discontinued prednisone 20 mg Tablet 40 mg PO DAILY Rx Instructions: x 4 days (start 04/10/22-end 04/13/22) linezolid 600 mg Tablet 600 mg PO BID@,20 Rx Instructions: for 7 days (start 04/11/22-end 04/17/22) oseltamivir 30 mg capsule 30 mg PO .ONCE ON SUNDAY Discharge Orders: Discharge Order (Routine); Ordered 04/19/22 Ordered By: Prince Yoon Referrals: Lydia Chávez FNP [Primary Care Provider] - 05/02/22 11:00 am Suzy Morgan MD [Hospitalist] - 05/18/22 10:45 am Patient Instructions: Vancomycin (By injection), Hemodialysis (GEN) Activity Restrictions/Additional Instructions: Continue vancomycin with dialysis. Dose based on level, target trough 15-20. 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 Follow-up with infectious disease. Follow-up with podiatry. Take calls or other lozenges, have your primary doctor reassess your left ear. Discharge Attestations Time Spent in Discharge Care*: greater than 30 min Quality Metrics Clinical Quality Measures [ No reported AMI, CVA or VTE this stay] Coding Level of Care Code Acute Chg FW DC note Diagnoses ESRD (end stage renal disease) N18.6
--- NOTE | 2022-04-19 16:45 | PM.PN ---
Subjective Subjective: Infectious disease progress note. No further blood cx positive Medications: Reviewed: Yes Vitals/I&O/Wt Last Vital Signs Temp 98.1 F 04/19/22 12:00 Pulse 92 04/19/22 12:00 Resp 18 04/19/22 12:00 BP 119/52 04/19/22 12:00 Pulse Ox 97 04/19/22 12:00 O2 Del Method 04/19/22 07:50 04/19/22 04/19/22 04/19/22 06:59 14:59 22:59 Intake Total 240 / 960 260 / 260 Output Total 601 / 1001 Balance -361 / -41 260 / 260 Physical Exam Narrative: care discussed with hospitalist Data 04/19/22 03:57 04/19/22 03:57 Micro: Microbiology 04/17/22 08:00 Blood Culture - Preliminary Blood NEGATIVE TO DATE A&P Assessment and plan (1) MRSA bacteremia: (2) ESRD (end stage renal disease): (3) Pneumonia: Plan Patient with a recent history of being admitted for influenza and superadded bacterial pneumonia, discharged recently. On treatment with linezolid until recently, called back to the hospital after blood culture from previous admission resulted positive on April 06, 2022. Peripheral blood culture from April 06, 2022 reported positive for MRSA. Patient has multiple potential sources of infection, certainly her recent pneumonia with sputum culture indicative of the same organism is a possibility. With presence of a hemodialysis catheter, endovascular infection is also possible. However given quick clerance and negative cx this admission, les slikely to be an endovascular source. She also has multiple wounds over her lower extremity which may be the source, however none of these appear to be deep-seated abscesses or osteomyelitis at this present time. Patient has known Charcot's foot for which she gets outpatient care. Recommend to Continue vancomycin renally dosed for 4 weeks of directed therapy, can time vancomycin with dialysis with goal trough of 15-20. Okay to retain HD catheter for now with close clinical monitoring Encouraged patient to keep her nephrology appt in May 2021 in [place] where she is planned for surgical correction of her fistula and removal of HD catheter once fistula matures Attestations Medical Necessity Statement*: per admitting Coding Level of Care Code Acute Wallpaper Remover Steam for [facility] Fwd Diagnoses MRSA bacteremia R78.81; B95.62 ESRD (end stage renal disease) N18.6 Pneumonia J18.9
[2022-04-19 17:28] LABS: Glucose Point of Care 89 mg/dL (70-110)
[2022-04-19] MEDS: heparin, porcine 1,000 unit/mL INJ 10 mL HE (18:53)
[2022-04-19] MEDS: vancomycin 500 MG in sodium chloride 0.9% (plus) 100 ML 200 MG IV (19:05)
[2022-04-19] MEDS: b-complex-vitamin c Tablet 1 EACH PO (19:05)
[2022-04-19] MEDS: ropinirole 1 mg Tablet 0.5 MG PO (19:06)
[2022-04-19] MEDS: hyDROXYzine 25 mg Capsule PO (19:06)
[2022-04-19] MEDS: clopidogrel 75 mg Tablet PO (19:06)
--- NOTE | 2022-04-19 20:29 | PC.NURSE ---
Pt A&Ox4, discharge instructions provided and pt verbalize understanding, pt daughter at bedside. Pt left unit in wheelchair and taken to daughters car. Pt had all belongings at the time of departure.
== END 2022-04-19 20:30 | disposition home or self-care (01) | DRG 193 ==
LOC: ER 20:11 → MEDSURG 20:56
PROVIDERS: Internal Medicine Nephrology; Student in an Organized Health Care Education/Training Program; Admitting Provider Internal Medicine; Emergency Provider Emergency Medicine; PCP Nurse Practitioner Family; Visit Provider Internal Medicine
DX: J18.9 Pneumonia, unspecified organism (principal); N18.6 End stage renal disease; I12.0 Hypertensive chronic kidney disease with stage 5 chronic kidney disease or end stage renal disease; L97.422 Non-pressure chronic ulcer of left heel and midfoot with fat layer exposed; J44.1 Chronic obstructive pulmonary disease with (acute) exacerbation; R19.7 Diarrhea, unspecified; E11.610 Type 2 diabetes mellitus with diabetic neuropathic arthropathy; E11.22 Type 2 diabetes mellitus with diabetic chronic kidney disease; E11.65 Type 2 diabetes mellitus with hyperglycemia; E11.40 Type 2 diabetes mellitus with diabetic neuropathy, unspecified; Z99.2 Dependence on renal dialysis; D63.1 Anemia in chronic kidney disease; D50.9 Iron deficiency anemia, unspecified; Z79.2 Long term (current) use of antibiotics; Z79.51 Long term (current) use of inhaled steroids; Z79.02 Long term (current) use of antithrombotics/antiplatelets; Z79.4 Long term (current) use of insulin; Z79.891 Long term (current) use of opiate analgesic; E78.5 Hyperlipidemia, unspecified; E03.9 Hypothyroidism, unspecified; Z86.73 Personal history of transient ischemic attack (TIA), and cerebral infarction without residual deficits; E11.621 Type 2 diabetes mellitus with foot ulcer; Z87.891 Personal history of nicotine dependence; I27.20 Pulmonary hypertension, unspecified; G25.81 Restless legs syndrome; Z88.5 Allergy status to narcotic agent; Z88.2 Allergy status to sulfonamides; G20 Parkinson's disease; I48.91 Unspecified atrial fibrillation; Z79.01 Long term (current) use of anticoagulants; B95.62 Methicillin resistant Staphylococcus aureus infection as the cause of diseases classified elsewhere
CPT/HCPCS: 12345; 36415; 36416; 71045; 80048; 80053; 80061; 80202; 82274; 82310; 82607; 82728; 82746; 82962; 83036; 83630; 83735; 83970; 84100; 84145; 85007; 85025; 86140; 87040; 87493; 87506; 90935; 94640; 96365; 96372; 99285; C8929; J1644; J1815; J3370; J7050; J7512; J7626; Q3014; Q9956

== ENCOUNTER 2022-05-13 15:52 | Inpatient (IN) | payer MEDICARE, OTHER, SELFPAY ==
[2022-05-13] VITALS (9 sets, daily range): BP systolic 171–179; BP diastolic 67–88; PULSE 92–100; RESP 16–30; TEMP 36.2; O2SAT 90–98
--- NOTE | 2022-05-13 15:59 | XRR_ITS ---
PROCEDURE INFORMATION: Exam: XR Chest Exam date and time: 05/13/2022 4:11 PM Age: 77 years old Clinical indication: Sternal or substernal pain; Prior surgery; Additional info: Cp TECHNIQUE: Imaging protocol: Radiologic exam of the chest. Views: 1 view. COMPARISON: CR (CHEST, ) 04/12/2022 6:55 PM FINDINGS: Tubes, catheters and devices: There is a large bore right central line extending into the right atrium. Electronic stimulator wire is present extending to the lower dorsal spine. Lungs: Unremarkable. No consolidation. Pleural spaces: Unremarkable. No pleural effusion. No pneumothorax. Heart/Mediastinum: Unremarkable. No cardiomegaly. Bones/joints: Unremarkable. XR/XR chest 1V portable [id number] IMPRESSION: 1. No acute findings. 2. Right central line in the right atrium. 3. Electronic stimulator wire lower dorsal spine
--- NOTE | 2022-05-13 16:10 | ECG_ITS ---
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 Measurements Intervals [place] Rate: 82 P: 72 MT: 206 QRS: 15 QRSD: 90 T: 56 QT: 373 QTc: 438 Interpretive Statements SINUS RHYTHM Compared to ECG 04/06/2022 18:17:30 No significant changes Electronically Signed On 05-14-2022 10:05:30 PINBALL MACHINE REPAIRER by Daniel Rizzo M.D. [id number]
--- NOTE | 2022-05-13 16:18 | ED_ITS ---
Documented by User: Rikki Griffin DO 05/13/22 16:23 HPI - Chest Pain General: Chief Complaint: Chest Pain Stated Complaint: CHEST PAIN Time Seen by Provider: 05/13/22 15:58 History of Present Illness: 77-year-old female brought in from care home in [place]. Patient reports around 230 she developed substernal chest pain that radiated straight through to her back. Patient reports mild shortness of breath. Patient is otherwise denies any cough, fevers chills nausea or vomiting. Patient does report concerns because she is a dialysis patient. That yesterday they went to use a dialysis shunt in the left arm. They had difficulty using it and not swollen she thinks may be clotted. She reports that she had dialysis yesterday. Patient brought in by EMS and did not receive anything in route. History was obtained from patient and EMS. Associated symptoms: Deny abdominal pain, fever(s), nausea, palpitations or vomiting Review of Systems Const: Denies: fever(s) or chills Card: Reports: chest pain; Denies: palpitations, irregular heart rhythm or lightheadedness Resp: Denies: productive cough, wheezing or pain on inspiration GI: Denies: abdominal pain, nausea or vomiting : Denies: flank pain or difficulty voiding Musc: Reports: back pain Skin/Breast: Denies: rash or pruritus Neuro: Denies: headache(s) PFSH ED PFSH: Medical History Anemia in chronic illness Chronic insomnia Chronic renal insufficiency COPD (chronic obstructive pulmonary disease) Diabetes mellitus type 2, insulin dependent Diabetic neuropathy ESRD (end stage renal disease) Fibromyalgia History of CVA (cerebrovascular accident) Hyperlipemia Hypertension Hyponatremia Hypothyroidism Influenza A Lumbar disc disease with radiculopathy Neuropathy Parkinson disease Post laminectomy syndrome Sciatica associated with disorder of lumbosacral spine Stage 4 chronic renal impairment associated with type 2 diabetes mellitus Uncontrolled insulin dependent diabetes mellitus Vitamin D deficiency Surgical History History of colonoscopy 2020 Hx of cholecystectomy Hx of foot surgery Hx of hysterectomy S/P dialysis catheter insertion Family History Father CAD (coronary artery disease) Mother CAD (coronary artery disease) Diabetes Grandfather CAD (coronary artery disease) Diabetes Social History Smoking and tobacco status: former smoker Second hand smoke exposure: No Alcohol intake: current Alcohol intake frequency: holidays/special occasions only Alcohol type: hard liquor History of recent travel: No Physical Exam Const: COMMON NORMALS: patient oriented x3 and alert GENERAL APPEARANCE: not comfortable NUTRITIONAL APPEARANCE: overweight Resp: COMMON NORMALS: normal respiratory effort, No use of accessory muscles and clear to auscultation bilaterally AUSCULTATION: clear to auscultation bilaterally Cardio: COMMON NORMALS: regular rate and regular rhythm RATE: regular rate RHYTHM: regular rhythm GI: COMMON NORMALS: Soft to palpation and non-tender PALPATION: Yes Soft to palpation Extremity: COMMON NORMALS: capillary refill normal Neuro: COMMON NORMALS: patient oriented x3, no focal motor deficits and no sensory deficits noted SENSORIUM/ORIENTATION: Yes alert Psych: COMMON NORMALS: mental status grossly normal and cooperative Skin: COMMON NORMALS: no rashes or lesions noted GENERAL SKIN EXAM: no rashes or lesions noted Course Vital Signs: Vital signs: Vital Signs Pulse Rate 95 05/13/22 20:32 Respiratory Rate 21 H 05/13/22 20:32 Blood Pressure 171/67 05/13/22 20:32 Pulse Oximetry 94 05/13/22 20:32 Oxygen Delivery Me thod 05/13/22 18:45 MDM - Chest Pain Lab Data 05/13/22 16:30 05/13/22 16:30 Radiology Impressions Chest X-Ray 05/13/22 15:59 IMPRESSION: 1. No acute findings. 2. Right central line in the right atrium. 3. Electronic stimulator wire lower dorsal spine Chest CT 05/13/22 17:56 IMPRESSION: 1. Mild cardiomegaly is noted. Coronary arterial calcifications are present. 2. Mild nonspecific patchy airspace disease demonstrated in the right lower lobe superolaterally. This may represent pneumonia. 3. 6 mm right perifissural nodule, series 4, image 39. No additional pulmonary nodules. Recommend follow-up CT Chest in 6-12 months. (References: Ghulam and Mily) REFERENCES: 1. Ghulam Roger, et al. Guidelines for Management of Incidental Pulmonary Nodules Detected on CT Images: From the Fleischner Society 2017. Radiology. 2017;284(1):228-243. 2. Mily J, et al. Updated Fleischner Society Guidelines for Managing Incidental Pulmonary Nodules: Common Questions and Challenging Scenarios. Radiographics. 2018;38(5):3606-4408. Laboratory Results WBC 12.3 10^3/uL (4.0-10.0) H 05/13/22 16:30 RBC 3.18 10^6/uL (4.1-5.3) L 05/13/22 16:30 Hgb 9.7 g/dL (11.5-15.3) L 05/13/22 16:30 Hct 33.0 % (37.0-47.0) L 05/13/22 16: MCV 103.8 fl (81-99) H 05/13/22 16:30 MCH 30.5 pg (28.0-34.0) 05/13/22 16: MCHC 29.4 g/dL (30.0-36.0) L 05/13/22 16:30 RDW 17.2 % (12.1-15.1) H 05/13/22 16:30 Plt Count 313 10^3/cmm (130-400) 05/13/22 16:30 MPV 9.9 fL (7.4-10.4) 05/13/22 16:30 Neut % (Auto) 81.0 % 05/13/22 16:30 Lymph % (Auto) 10.0 % 05/13/22 16:30 [place] % (Auto) 5.8 % 05/13/22 16:30 Eos % (Auto) 1.6 % 05/13/22 16:30 Baso % (Auto) 0.6 % 05/13/22 16:30 Neut # (Auto) 9.94 10^3/uL (1.8-7.7) H 05/13/22 16:30 Lymph # (Auto) 1.2 10^3/uL (0.8-4.8) 05/13/22 16:30 [place] # (Auto) 0.7 10^3/uL (0.2-0.9) 05/13/22 16:30 Eos # (Auto) 0.2 10^3/uL (0.0-0.8) 05/13/22 16:30 Baso # (Auto) 0.1 10^3/uL (0.0-0.1) 05/13/22 16:30 Nucleated RBC % (auto) 0 % 05/13/22 16:30 Nucleated RBCs # 0.0 /100WBC 05/13/22 16:30 Sodium 138 mmol/L (136-145) 05/13/22 16:30 Potassium 4.2 mmol/L (3.5-5.1) 05/13/22 16:30 Chloride 94 mmol/L (98-107) L 05/13/22 16:30 Carbon Dioxide 25 mmol/L (22-29) 05/13/22 16:30 Anion Gap 23.2 (5-19) H 05/13/22 16:30 BUN 41 mg/dL (8-23) H 05/13/22 16:30 Creatinine 4.3 mg/dL (0.5-0.9) H 05/13/22 16:30 GFR Calculation Not Reportable 05/13/22 16:30 Glucose 166 mg/dL (65-115) H 05/13/22 16:30 Calculated Osmolality 300 mOsm/kg (285-295) H 05/13/22 16:30 Calcium 8.5 mg/dL (8.5-10.5) 05/13/22 16:30 Total Bilirubin 0.4 mg/dL (0.15-1.2) 05/13/22 16:30 AST 14 U/L (0-32) 05/13/22 16:30 ALT < 5 U/L (0-33) 05/13/22 16:30 Alkaline Phosphatase 137 U/L (35-105) H 05/13/22 16:30 Troponin T Baseline 30 ng/L (0-10) H 05/13/22 16:30 Troponin T 120 Minute 35.69 ng/L (0-10) H 05/13/22 18:26 Delta Troponin T 5.69 ABS# (0-10) 05/13/22 18:26 Total Protein 8.1 g/dL (6.6-8.7) 05/13/22 16:30 Albumin 4.2 g/dL (3.5-5.2) 05/13/22 16:30 Globulin 3.9 g/dL (1.3-4.6) 05/13/22 16:30 Lipase 38 U/L (13-60) 05/13/22 16:30 Discharge Plan Discharge Patient Disposition: Admitted As Inpatient Clinical Impression: Chest pain Condition: Stable Prescriptions: No Action losartan 50 mg Tablet 50 mg PO BEDTIME furosemide [Lasix] 40 mg Tablet 40 mg PO BID promethazine-DM 6.25-15 mg/5 mL Syrup 5 ml PO Q4H PRN (Reason: Cough) Neosporin ([id number]) 3.5mg-400 unit- 5,000 unit/gram Ointment See Rx Instructions .ROUTE .COMPLEX Rx Instructions: apply to bottom of left foot topically one time a day -clean with ns apply ointment and bandage daily till healed ipratropium-albuterol 0.5 mg-3 mg(2.5 mg base)/3 mL Solution For Nebulization 3 ml INHALATION Q6H PRN (Reason: Cough) albuterol sulfate 2.5 mg /3 mL (0.083 %) solution for nebulization 2.5 mg inhalation Q6H PRN (Reason: Shortness Of Breath) metoprolol tartrate 100 mg Tablet 100 mg PO BID ondansetron HCl 4 mg Tablet 4 mg PO Q8H PRN (Reason: Nausea And Vomiting) clonidine HCl 0.3 mg Tablet 0.3 mg PO Q8H PRN (Reason: systolic bp >160) loperamide [Imodium A-D] 2 mg Tablet 2 mg PO Q6H PRN (Reason: Loose Stool) metolazone 5 mg Tablet 5 mg PO QAM clopidogrel [Plavix] 75 mg Tablet 75 mg PO QPM acetaminophen 500 mg Tablet 1,000 mg PO Q6H PRN (Reason: Pain) simvastatin 40 mg Tablet 40 mg PO BEDTIME@21 benzonatate 100 mg Capsule 100 mg PO Q8H PRN (Reason: Cough) diphenhydramine HCl [Benadryl] 25 mg Capsule 25 mg PO BEDTIME PRN (Reason: Itching) mirtazapine 30 mg Tablet 30 mg PO BEDTIME@21 ropinirole 0.5 mg Tablet 0.5 mg PO QPM budesonide 0.5 mg/2 mL Suspension For Nebulization 0.5 mg inhalation Q12H Rx Instructions: for 5 days (start date 04/06/22) hydroxyzine HCl 25 mg Tablet 25 mg PO Q8H PRN (Reason: Itching) gabapentin 100 mg Capsule 100 mg PO TID Renal Caps 1 mg Capsule 1 cap PO QPM albuterol sulfate [ProAir HFA] 90 mcg/actuation Hfa Aerosol Inhaler 2 puff INHALATION Q6H PRN (Reason: Wheezing) carbidopa-levodopa 25-100 mg Tablet 2 tab PO TID sertraline 50 mg Tablet 50 mg PO DAILY hydroxyzine pamoate 25 mg Capsule 25 mg PO QPM insulin aspart U-100 [Novolog Flexpen U-100 Insulin] 100 unit/mL (3 mL) Insulin Pen See Rx Instructions .ROUTE .COMPLEX Rx Instructions: sliding scale three times a day 150-200=3 units 201-250=5 units 251-300=7 units 301-350=9 units 351-400=11 units call provider for bs <60 or >400 cyclobenzaprine 5 mg Tablet 5 mg PO Q8H PRN (Reason: Muscle Spasm) solifenacin 5 mg Tablet 5 mg PO QAM Advair HFA 115-21 mcg/actuation Hfa Aerosol Inhaler 2 puff INHALATION BID insulin glargine [Lantus Solostar U-100 Insulin] 100 unit/mL (3 mL) Insulin Pen 40 unit SUBCUT DAILY@06 amino acids-protein hydrolys 15-101 gram-kcal/30 mL Liquid See Rx Instructions .ROUTE .COMPLEX Rx Instructions: 30ml by mouth daily cholecalciferol (vitamin D3) [Vitamin D3] 50 mcg (2,000 unit) Capsule 6,000 unit PO DAILY thyroid (pork) [Deep Water Thyroid] 90 mg Tablet 90 mg PO DAILY Lumigan 0.01 % Drops 1 drp OPHTHALMIC (EYE) BEDTIME oxycodone 7.5 mg Tablet, Oral Only 7.5 mg PO Q6H PRN (Reason: Pain) Eliquis 5 mg Tablet 5 mg PO BID Rx Instructions: ON HOLD FROM 03/30/22 -04/30/2022 (DME) calcium alginate 2 X 2 Bandage TOPICAL Rx Instructions: apply to left lower leg topically one time a day for diabetic ulcer Biofreeze (menthol) 4 % Gel See Rx Instructions .ROUTE .COMPLEX Rx Instructions: apply to bilat feet topically every 4 hours as needed for pain to feet vancomycin 750 mg recon soln See Rx Instructions .ROUTE .COMPLEX Qty: 7 0RF Rx Instructions: With dialysis. Dose based on Vanc level, target 15-20. Until 05/03/22 Referrals: Lydia Chávez FNP [Nurse Practitioner] - Coding Level of Care Code ED Broadcast Journalist for Chg Fwd Exam Comprehensive Documented by User: Kevin Champion MD 05/13/22 20:41 HPI - Chest Pain General: Chief Complaint: Chest Pain Stated Complaint: CHEST PAIN Time Seen by Provider: 05/13/22 15:58 PFSH ED PFSH: Medical History Anemia in chronic illness Chronic insomnia Chronic renal insufficiency COPD (chronic obstructive pulmonary disease) Diabetes mellitus type 2, insulin dependent Diabetic neuropathy ESRD (end stage renal disease) Fibromyalgia History of CVA (cerebrovascular accident) Hyperlipemia Hypertension Hyponatremia Hypothyroidism Influenza A Lumbar disc disease with radiculopathy Neuropathy Parkinson disease Post laminectomy syndrome Sciatica associated with disorder of lumbosacral spine Stage 4 chronic renal impairment associated with type 2 diabetes mellitus Uncontrolled insulin dependent diabetes mellitus Vitamin D deficiency Surgical History History of colonoscopy 2020 Hx of cholecystectomy Hx of foot surgery Hx of hysterectomy S/P dialysis catheter insertion Family History Father CAD (coronary artery disease) Mother CAD (coronary artery disease) Diabetes Grandfather CAD (coronary artery disease) Diabetes Social History Smoking and tobacco status: former smoker Second hand smoke exposure: No Alcohol intake: current Alcohol intake frequency: holidays/special occasions only Alcohol type: hard liquor History of recent travel: No Course Vital Signs: Vital signs: Vital Signs Pulse Rate 95 05/13/22 20:32 Respiratory Rate 21 H 05/13/22 20:32 Blood Pressure 171/67 05/13/22 20:32 Pulse Oximetry 94 05/13/22 20:32 Oxygen Delivery Me thod 05/13/22 18:45 MDM - Chest Pain Medical Decision Making Patient presents here with chest pain she is worried about a pulmonary embolism she did have to stop her Eliquis for a few days have a procedure on her AV fistula she has received dialysis within [address] angio not able to get 1 set up as she does not get dialysis till Sunday spoke to the hospitalist will admit for CT angio here in dialysis tomorrow her troponins here are negative. Lab Data 05/13/22 16:30 05/13/22 16:30 Radiology Impressions Chest X-Ray 05/13/22 15:59 IMPRESSION: 1. No acute findings. 2. Right central line in the right atrium. 3. Electronic stimulator wire lower dorsal spine Chest CT 05/13/22 17:56 IMPRESSION: 1. Mild cardiomegaly is noted. Coronary arterial calcifications are present. 2. Mild nonspecific patchy airspace disease demonstrated in the right lower lobe superolaterally. This may represent pneumonia. 3. 6 mm right perifissural nodule, series 4, image 39. No additional pulmonary nodules. Recommend follow-up CT Chest in 6-12 months. (References: Ghulam and Mily) REFERENCES: 1. Ghulam H, et al. Guidelines for Management of Incidental Pulmonary Nodules Detected on CT Images: From the Fleischner Society 2017. Radiology. 2017;284(1):228-243. 2. Mily J, et al. Updated Fleischner Society Guidelines for Managing Incidental Pulmonary Nodules: Common Questions and Challenging Scenarios. Radiographics. 2018;38(5):9595-4968. Laboratory Results WBC 12.3 10^3/uL (4.0-10.0) H 05/13/22 16:30 RBC 3.18 10^6/uL (4.1-5.3) L 05/13/22 16:30 Hgb 9.7 g/dL (11.5-15.3) L 05/13/22 16:30 Hct 33.0 % (37.0-47.0) L 05/13/22 16:30 MCV 103.8 fl (81-99) H 05/13/22 16:30 MCH 30.5 pg (28.0-34.0) 05/13/22 16: MCHC 29.4 g/dL (30.0-36.0) L 05/13/22 16:30 RDW 17.2 % (12.1-15.1) H 05/13/22 16:30 Plt Count 313 10^3/cmm (130-400) 05/13/22 16:30 MPV 9.9 fL (7.4-10.4) 05/13/22 16:30 Neut % (Auto) 81.0 % 05/13/22 16:30 Lymph % (Auto) 10.0 % 05/13/22 16:30 [place] % (Auto) 5.8 % 05/13/22 16:30 Eos % (Auto) 1.6 % 05/13/22 16:30 Baso % (Auto) 0.6 % 05/13/22 16:30 Neut # (Auto) 9.94 10^3/uL (1.8-7.7) H 05/13/22 16:30 Lymph # (Auto) 1.2 10^3/uL (0.8-4.8) 05/13/22 16:30 [place] # (Auto) 0.7 10^3/uL (0.2-0.9) 05/13/22 16:30 Eos # (Auto) 0.2 10^3/uL (0.0-0.8) 05/13/22 16:30 Baso # (Auto) 0.1 10^3/uL (0.0-0.1) 05/13/22 16: Nucleated RBC % (auto) 0 % 05/13/22 16: Nucleated RBCs # 0.0 /100WBC 05/13/22 16:30 Sodium 138 mmol/L (136-145) 05/13/22 16:30 Potassium 4.2 mmol/L (3.5-5.1) 05/13/22 16: Chloride 94 mmol/L (98-107) L 05/13/22 16:30 Carbon Dioxide 25 mmol/L (22-29) 05/13/22 16:30 Anion Gap 23.2 (5-19) H 05/13/22 16:30 BUN 41 mg/dL (8-23) H 05/13/22 16:30 Creatinine 4.3 mg/dL (0.5-0.9) H 05/13/22 16:30 GFR Calculation Not Reportable 05/13/22 16:30 Glucose 166 mg/dL (65-115) H 05/13/22 16:30 Calculated Osmolality 300 mOsm/kg (285-295) H 05/13/22 16:30 Calcium 8.5 mg/dL (8.5-10.5) 05/13/22 16:30 Total Bilirubin 0.4 mg/dL (0.15-1.2) 05/13/22 16:30 AST 14 U/L (0-32) 05/13/22 16:30 ALT < 5 U/L (0-33) 05/13/22 16:30 Alkaline Phosphatase 137 U/L (35-105) H 05/13/22 16:30 Troponin T Baseline 30 ng/L (0-10) H 05/13/22 16:30 Troponin T 120 Minute 35.69 ng/L (0-10) H 05/13/22 18:26 Delta Troponin T 5.69 ABS# (0-10) 05/13/22 18:26 Total Protein 8.1 g/dL (6.6-8.7) 05/13/22 16:30 Albumin 4.2 g/dL (3.5-5.2) 05/13/22 16:30 Globulin 3.9 g/dL (1.3-4.6) 05/13/22 16:30 Lipase 38 U/L (13-60) 05/13/22 16:30 Discharge Plan Discharge Patient Disposition: Admitted As Inpatient Clinical Impression: Chest pain Condition: Stable Prescriptions: No Action losartan 50 mg Tablet 50 mg PO BEDTIME furosemide [Lasix] 40 mg Tablet 40 mg PO BID promethazine-DM 6.25-15 mg/5 mL Syrup 5 ml PO Q4H PRN (Reason: Cough) Neosporin ([id number]-kynkj) 3.5mg-400 unit- 5,000 unit/gram Ointment See Rx Instructions .ROUTE .COMPLEX Rx Instructions: apply to bottom of left foot topically one time a day -clean with ns apply ointment and bandage daily till healed ipratropium-albuterol 0.5 mg-3 mg(2.5 mg base)/3 mL Solution For Nebulization 3 ml INHALATION Q6H PRN (Reason: Cough) albuterol sulfate 2.5 mg /3 mL (0.083 %) solution for nebulization 2.5 mg inhalation Q6H PRN (Reason: Shortness Of Breath) metoprolol tartrate 100 mg Tablet 100 mg PO BID ondansetron HCl 4 mg Tablet 4 mg PO Q8H PRN (Reason: Nausea And Vomiting) clonidine HCl 0.3 mg Tablet 0.3 mg PO Q8H PRN (Reason: systolic bp >160) loperamide [Imodium A-D] 2 mg Tablet 2 mg PO Q6H PRN (Reason: Loose Stool) metolazone 5 mg Tablet 5 mg PO QAM clopidogrel [Plavix] 75 mg Tablet 75 mg PO QPM acetaminophen 500 mg Tablet 1,000 mg PO Q6H PRN (Reason: Pain) simvastatin 40 mg Tablet 40 mg PO BEDTIME@21 benzonatate 100 mg Capsule 100 mg PO Q8H PRN (Reason: Cough) diphenhydramine HCl [Benadryl] 25 mg Capsule 25 mg PO BEDTIME PRN (Reason: Itching) mirtazapine 30 mg Tablet 30 mg PO BEDTIME@21 ropinirole 0.5 mg Tablet 0.5 mg PO QPM budesonide 0.5 mg/2 mL Suspension For Nebulization 0.5 mg inhalation Q12H Rx Instructions: for 5 days (start date 04/06/22) hydroxyzine HCl 25 mg Tablet 25 mg PO Q8H PRN (Reason: Itching) gabapentin 100 mg Capsule 100 mg PO TID Renal Caps 1 mg Capsule 1 cap PO QPM albuterol sulfate [ProAir HFA] 90 mcg/actuation Hfa Aerosol Inhaler 2 puff INHALATION Q6H PRN (Reason: Wheezing) carbidopa-levodopa 25-100 mg Tablet 2 tab PO TID sertraline 50 mg Tablet 50 mg PO DAILY hydroxyzine pamoate 25 mg Capsule 25 mg PO QPM insulin aspart U-100 [Novolog Flexpen U-100 Insulin] 100 unit/mL (3 mL) Insulin Pen See Rx Instructions .ROUTE .COMPLEX Rx Instructions: sliding scale three times a day 150-200=3 units 201-250=5 units 251-300=7 units 301-350=9 units 351-400=11 units call provider for bs <60 or >400 cyclobenzaprine 5 mg Tablet 5 mg PO Q8H PRN (Reason: Muscle Spasm) solifenacin 5 mg Tablet 5 mg PO QAM Advair HFA 115-21 mcg/actuation Hfa Aerosol Inhaler 2 puff INHALATION BID insulin glargine [Lantus Solostar U-100 Insulin] 100 unit/mL (3 mL) Insulin Pen 40 unit SUBCUT DAILY@06 amino acids-protein hydrolys 15-101 gram-kcal/30 mL Liquid See Rx Instructions .ROUTE .COMPLEX Rx Instructions: 30ml by mouth daily cholecalciferol (vitamin D3) [Vitamin D3] 50 mcg (2,000 unit) Capsule 6,000 unit PO DAILY thyroid (pork) [Deep Water Thyroid] 90 mg Tablet 90 mg PO DAILY Lumigan 0.01 % Drops 1 drp OPHTHALMIC (EYE) BEDTIME oxycodone 7.5 mg Tablet, Oral Only 7.5 mg PO Q6H PRN (Reason: Pain) Eliquis 5 mg Tablet 5 mg PO BID Rx Instructions: ON HOLD FROM 03/30/22 -04/30/2022 (DME) calcium alginate 2 X 2 Bandage TOPICAL Rx Instructions: apply to left lower leg topically one time a day for diabetic ulcer Biofreeze (menthol) 4 % Gel See Rx Instructions .ROUTE .COMPLEX Rx Instructions: apply to bilat feet topically every 4 hours as needed for pain to feet vancomycin 750 mg recon soln See Rx Instructions .ROUTE .COMPLEX Qty: 7 0RF Rx Instructions: With dialysis. Dose based on Vanc level, target 15-20. Until 05/03/22 Referrals: Lydia Chávez FNP [Nurse Practitioner] - Coding Level of Care Code ED Broadcast Journalist for Chg Fwd Exam Comprehensive
[2022-05-13] MEDS: aspirin 81 mg Chew Tablet 324 MG PO (16:43)
[2022-05-13] MEDS: fentaNYL 50 mcg/mL INJ 2mL IVP (16:44)
[2022-05-13 16:51] LABS: Basophils # 0.1 10^3/uL (0.0-0.1); Basophils % 0.6 %; Eosinophils # 0.2 10^3/uL (0.0-0.8); Eosinophils % 1.6 %; Hemoglobin 9.7 g/dL (11.5-15.3); Lymphocytes # 1.2 10^3/uL (0.8-4.8); Mean Corpuscular HGB Conc 29.4 g/dL (30.0-36.0); Mean Corpuscular Hemoglobin 30.5 pg (28.0-34.0); Mean Corpuscular Volume 103.8 fl (81-99); Mean Platelet Volume 9.9 fL (7.4-10.4); Monocytes # 0.7 10^3/uL (0.2-0.9); Monocytes % 5.8 %; Neutrophils # 9.94 10^3/uL (1.8-7.7); Nucleated Red Blood Cells % 0 %; Platelet Count 313 10^3/cmm (130-400); Red Blood Count 3.18 10^6/uL (4.1-5.3); Red Cell Distribution Width 17.2 % (12.1-15.1); White Blood Count 12.3 10^3/uL (4.0-10.0)
[2022-05-13 17:04] LABS: Troponin(5th) Baseline 30 ng/L (0-10)
[2022-05-13 17:09] LABS: Alanine Aminotransferase < 5 U/L (0-33); Albumin Level 4.2 g/dL (3.5-5.2); Alkaline Phosphatase 137 U/L (35-105); Anion Gap 23.2 (5-19); Aspartate Amino Transferase 14 U/L (0-32); Blood Urea Nitrogen 41 mg/dL (8-23); Calcium 8.5 mg/dL (8.5-10.5); Carbon Dioxide 25 mmol/L (22-29); Chloride 94 mmol/L (98-107); Globulin 3.9 g/dL (1.3-4.6); Glucose 166 mg/dL (65-115); Lipase 38 U/L (13-60); Osmolality Calculated 300 mOsm/kg (285-295); Potassium 4.2 mmol/L (3.5-5.1); Sodium 138 mmol/L (136-145); Total Bilirubin 0.4 mg/dL (0.15-1.2); Total Protein 8.1 g/dL (6.6-8.7)
--- NOTE | 2022-05-13 17:56 | CTR_ITS ---
PROCEDURE INFORMATION: Exam: CT Chest Without Contrast; Diagnostic Exam date and time: 05/13/2022 6:35 PM Age: 77 years old Clinical indication: Pain; Shortness of breath; Chest pressure; Additional info: Chest pain, change to chest w/o per physician. PT doesn't have dialysis until Sunday TECHNIQUE: Imaging protocol: Diagnostic computed tomography of the chest without contrast. Radiation optimization: All CT scans at this facility use at least one of these dose optimization techniques: automated exposure control; mA and/or kV adjustment per patient size (includes targeted exams where dose is matched to clinical indication); or iterative reconstruction. COMPARISON: CR (CHEST, ) 05/13/2022 4:11 PM RADIATION DOSE METRICS: Total DLP (mGy-cm): 535.11 FINDINGS: Tubes, catheters and devices: Right-sided central line with tip in right atrium. Lungs: Mild nonspecific patchy airspace disease demonstrated in the right lower lobe superolaterally. Mild atelectasis in the lingula. Spinal stimulator catheter noted. Catheter tip of the T7-8. 6 mm right perifissural nodule, series 4, image 39. No additional pulmonary nodules. Pleural spaces: No pneumothorax. No pleural effusion. Heart: Mild cardiomegaly is noted. There is no significant pericardial effusion present. Coronary arteries: The coronary arteries demonstrate atherosclerotic calcifications. Lymph nodes: No pathologically enlarged lymph nodes are demonstrated. Mediastinal nodes measuring up to 8 mm short axis are demonstrated. Vasculature: Atherosclerosis of the thoracic aorta. No aortic aneurysm. Bones/joints: No compression fractures are noted. Old healed left rib fractures are noted. Soft tissues: Unremarkable. CT/CT chest wo con [id number] IMPRESSION: 1. Mild cardiomegaly is noted. Coronary arterial calcifications are present. 2. Mild nonspecific patchy airspace disease demonstrated in the right lower lobe superolaterally. This may represent pneumonia. 3. 6 mm right perifissural nodule, series 4, image 39. No additional pulmonary nodules. Recommend follow-up CT Chest in 6-12 months. (References: Leonard) REFERENCES: 1. Ghulam Roger et al. Guidelines for Management of Incidental Pulmonary Nodules Detected on CT Images: From the Fleischner Society 2017. Radiology. 2017;284(1):228-243. 2. Mily Angulo et al. Updated Fleischner Society Guidelines for Managing Incidental Pulmonary Nodules: Common Questions and Challenging Scenarios. Radiographics. 2018;38(5):5355-0842.
--- NOTE | 2022-05-13 18:02 | ECG_ITS ---
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 Measurements Intervals [place] Rate: 86 P: 75 KS: 214 QRS: 6 QRSD: 93 T: 55 QT: 357 QTc: 428 Interpretive Statements SINUS RHYTHM WITH FIRST DEGREE AV BLOCK POSSIBLE RIGHT VENTRICULAR CONDUCTION DELAY [RSR (QR) IN V1/V2] MODERATE ST DEPRESSION [0.05+ mV ST DEPRESSION] Compared to ECG 05/13/2022 16:10:12 First degree AV block now present ST (T wave) deviation now present Electronically Signed On 05-14-2022 10:09:20 WATER SUPERVISOR by Daniel Rizzo M.D. [email or web address]
[2022-05-13] MEDS: HYDROmorphone 1 mg/mL INJ 1 mL 0.5 MG IVP (18:17)
[2022-05-13 19:06] LABS: Troponin 5 2HR 35.69 ng/L (0-10)
[2022-05-13 19:09] LABS: Troponin 5 2HR Delta 5.69 ABS# (0-10)
--- NOTE | 2022-05-13 19:34 | USR_ITS ---
PROCEDURE INFORMATION: Exam: US Duplex Hemodialysis Access Exam date and time: 05/13/2022 7:45 PM Age: 77 years old Clinical indication: Swelling (edema) of limb; Upper extremity, left; Prior surgery; Surgery date: 6+ months; Surgery type: Av dialysis fistula placement TECHNIQUE: Imaging protocol: US Duplex hemodialysis access with vogel scale, color Doppler, and spectral waveform analysis. Vascular access, inflow and outflow were evaluated. Duplex exam was performed to evaluate for vascular conditions. COMPARISON: CT chest wo con [id number] 05/13/2022 6:35 PM FINDINGS: Vascular access: Vascular access is patent. Normal waveforms. No perigraft fluid. No pseudoaneurysm. Arterial inflow: Brachial artery is not demonstrated. Venous outflow: Patent. Normal waveforms. Soft tissues: Visualized soft tissue is unremarkable. Other findings: Axillary and brachial veins are patent throughout without thrombus. Normal compressibility. Visualized internal jugular and subclavian veins are patent. Left radial and left ulnar veins are patent. US/[place] [id number] IMPRESSION: Left brachial artery to cephalic vein fistula demonstrated. The fistula is patent.
--- NOTE | 2022-05-13 20:23 | CTR_ITS ---
PROCEDURE INFORMATION: Exam: CTA Chest With Contrast Exam date and time: 05/13/2022 9:16 PM Age: 77 years old Clinical indication: Pain; Shortness of breath; Chest pressure; Patient HX: R/O dissection and pe; Additional info: SOB, poss aortic dissection, R/O pe also TECHNIQUE: Imaging protocol: Computed tomographic angiography of the chest with contrast. 3D rendering (Not supervised by radiologist): MIP and/or 3D reconstructed images were created by the technologist. Radiation optimization: All CT scans at this facility use at least one of these dose optimization techniques: automated exposure control; mA and/or kV adjustment per patient size (includes targeted exams where dose is matched to clinical indication); or iterative reconstruction. Contrast material: OMNI 350; Contrast volume: 100 ml; Contrast route: INTRAVENOUS (IV); COMPARISON: CT chest wo con [id number] 05/13/2022 6:35 PM RADIATION DOSE METRICS: Total DLP (mGy-cm): 648.36 FINDINGS: Tubes, catheters and devices: Right jugular central line with tip in right atrium. Spinal stimulator device partially demonstrated. Distal tip is at the T7-8 level. Pulmonary arteries: Main pulmonary artery is dilated, measuring 3.3 cm in diameter. This suggests pulmonary hypertension. Pulmonary arteries appear patent. No pulmonary emboli demonstrated. Aorta: Atherosclerosis of the aorta noted. No aortic dissection. Lungs: Nonspecific volume loss versus infiltrate noted in the anterior right lower lobe. 6 mm right perifissural nodule, series 4, image 39. No additional pulmonary nodules. Pleural spaces: No pleural effusion or pneumothorax noted. Heart: Cardiomegaly is present. There is no significant pericardial effusion present. Coronary arteries: The coronary arteries demonstrate atherosclerotic calcifications. Lymph nodes: No pathologically enlarged lymph nodes are demonstrated. Bones/joints: No thoracic compression fractures. Multiple old healed left rib fractures are present. No acute osseous abnormality noted. Soft tissues: No acute abnormality of the soft tissues noted. CT/CT angio chest [id number] IMPRESSION: 1. Cardiomegaly is present. 2. Main pulmonary artery is dilated, measuring 3.3 cm in diameter. This suggests pulmonary hypertension. 3. Pulmonary arteries appear patent. No pulmonary emboli demonstrated. Atherosclerosis of the thoracic aorta. Ascending aorta measures 3.2 cm in diameter. 4. No aortic dissection. 5. Nonspecific volume loss versus infiltrate noted in the anterior right lower lobe. This is unchanged from noncontrast CT chest of 05/13/2022 at 6:35 p.m.. No new pulmonary infiltrates are demonstrated. 6. 6 mm right perifissural nodule, series 4, image 39. No additional pulmonary nodules. Recommend follow-up CT Chest in 6-12 months. (References: Ghulam and Mily) REFERENCES: 1. Ghulam H, et al. Guidelines for Management of Incidental Pulmonary Nodules Detected on CT Images: From the Fleischner Society 2017. Radiology. 2017;284(1):228-243. 2. Mily J, et al. Updated Fleischner Society Guidelines for Managing Incidental Pulmonary Nodules: Common Questions and Challenging Scenarios. Radiographics. 2018;38(5):2181-8048.
--- NOTE | 2022-05-13 20:43 | PM.HP ---
Providers/Chief Complaint Primary Care Provider: Brandi Escalera MD Chief Complaint: CHEST PAIN History of Present Illness Meghna Chaudhari is a 77 year old female with a recent history of MRSA pneumonia currently on her third week of 4 of IV vancomycin, for which she receives at dialysis, end-stage renal disease on dialysis, history of left AV fistula failure, with temporary right dialysis catheter in place, history of atrial fibrillation, history of 2 pulmonary embolisms, not on anticoagulation taken off when she went to [facility], COPD, history of Parkinson's disease, insulin-dependent type 2 diabetes mellitus, who presents to [facility] due to severe substernal stabbing chest pain radiating to the back. Currently patient is complaining of severe pain between her shoulder blades, and she is is really not comfortable in any position, no fevers, no chills, no cough, no lightheadedness, no dizziness. She tells me that in the afternoon, she was started to [facility], she lives in a assisted in [place], when she started develop severe substernal chest pain rating straight to her back, she is always short of breath, she is still on antibiotics for pneumonia, but overall is telling me that she is doing well, at the same time she noticed that her left AV fistula, became more red and she is worried that he might of had a clot in it, still red and it is bothering her.. She tells me that she was recently in [facility], due to reasons that do not really make sense to me, but what it sounds like may be left AV fistula failure, and she had a fistulogram which showed good flow, but the outflow of the AV fistula is having issues so she has a corrective surgery potentially plan, they advised her to continue Plavix, they took her off Eliquis she has a temporary right dialysis catheter in place. fletcher does have edema and swelling of bilateral lower extremities and especially her shins, but no calf pain, no calf tenderness she tells her that she always has this but it significantly improved from prior Review of Systems Const: Denies: fever(s) Eyes: Denies: change in vision ENMT: Denies: throat pain Card: Reports: chest pain and dyspnea on exertion; Denies: syncope Resp: Reports: dyspnea GI: Denies: abdominal pain : Denies: flank pain Musc: Reports: back pain Skin/Breast: Reports: rash Neuro: Denies: headache(s) Psych: Denies: anxiety Medications/Allergies Home Medications Medication Instructions Recorded Confirmed Last Taken Type acetaminophen 500 mg tablet 1,000 mg PO Q6H PRN Pain 04/07/22 04/13/22 Unknown History albuterol sulfate 2.5 mg/3 mL 2.5 mg inhalation Q6H PRN 04/07/22 04/13/22 Unknown History (0.083 %) solution for nebulization Shortness Of Breath albuterol sulfate 90 mcg/actuation 2 puff inhalation Q6H PRN Wheezing 04/07/22 04/13/22 Unknown History aerosol inhaler (ProAir HFA) amino acids-protein hydrolysate 15 See Rx Instructions .Route .COMPLEX 04/07/22 04/13/22 Unknown History gram-101 kcal/30 mL oral liquid apixaban 5 mg tablet (Eliquis) 5 mg PO BID 04/07/22 04/13/22 Unknown History benzonatate 100 mg capsule 100 mg PO Q8H PRN Cough 04/07/22 04/13/22 Unknown History bimatoprost 0.01 % eye drops 1 drp ophthalmic (eye) BEDTIME 04/07/22 04/13/22 Unknown History (Pepe) budesonide 0.5 mg/2 mL suspension 0.5 mg inhalation Q12H 04/07/22 04/13/22 Unknown History for nebulization calcium alginate 2 X 2 bandage 04/07/22 04/13/22 Unknown History carbidopa 25 mg-levodopa 100 mg 2 tab PO TID 04/07/22 04/13/22 Unknown History tablet cholecalciferol (vitamin D3) 50 6,000 unit PO DAILY 04/07/22 04/13/22 Unknown History mcg (2,000 unit) capsule (Vitamin D3) clonidine HCl 0.3 mg tablet 0.3 mg PO Q8H PRN systolic bp >160 04/07/22 04/13/22 Unknown History clopidogrel 75 mg tablet (Plavix) 75 mg PO QPM 04/07/22 04/13/22 Unknown History cyclobenzaprine 5 mg tablet 5 mg PO Q8H PRN Muscle Spasm 04/07/22 04/13/22 Unknown History diphenhydramine HCl 25 mg capsule 25 mg PO BEDTIME PRN Itching 04/07/22 04/13/22 Unknown History (Benadryl) fluticasone propionate 115 2 puff inhalation BID 04/07/22 04/13/22 Unknown History mcg-salmeterol 21 mcg/actuation HFA inhaler (Advair HFA) furosemide 40 mg tablet (Lasix) 40 mg PO BID 04/07/22 04/13/22 Unknown History gabapentin 100 mg capsule 100 mg PO TID 04/07/22 04/13/22 Unknown History hydroxyzine HCl 25 mg tablet 25 mg PO Q8H PRN Itching 04/07/22 04/13/22 Unknown History hydroxyzine pamoate 25 mg capsule 25 mg PO QPM 04/07/22 04/13/22 Unknown History insulin aspart U-100 100 unit/mL See Rx Instructions .Route .COMPLEX 04/07/22 04/13/22 Unknown History (3 mL) subcutaneous pen (Novolog Flexpen U-100 Insulin aspart) insulin glargine 100 unit/mL (3 40 unit SUBCUT DAILY@06 04/07/22 04/13/22 Unknown History mL) subcutaneous pen (Lantus Solostar U-100 Insulin) ipratropium 0.5 mg-albuterol 3 mg 3 ml inhalation Q6H PRN Cough 04/07/22 04/13/22 Unknown History (2.5 mg base)/3 mL nebulization soln loperamide 2 mg tablet (Imodium 2 mg PO Q6H PRN Loose Stool 04/07/22 04/13/22 Unknown History A-D) losartan 50 mg tablet 50 mg PO BEDTIME 04/07/22 04/13/22 Unknown History menthol 4 % topical gel (Biofreeze See Rx Instructions .Route .COMPLEX 04/07/22 04/13/22 Unknown History (menthol)) metolazone 5 mg tablet 5 mg PO QAM 04/07/22 04/13/22 Unknown History metoprolol tartrate 100 mg tablet 100 mg PO BID 04/07/22 04/13/22 Unknown History mirtazapine 30 mg tablet 30 mg PO BEDTIME@21 04/07/22 04/13/22 Unknown History neomycin-bacitracn Zn-polymyx 3.5 See Rx Instructions .Route .COMPLEX 04/07/22 04/13/22 Unknown History mg-400 unit-5,000 unit/gram top oint (Neosporin (sve-djp-eldky)) ondansetron HCl 4 mg tablet 4 mg PO Q8H PRN Nausea And Vomiting 04/07/22 04/13/22 Unknown History oxycodone 7.5 mg tablet,oral ONLY 7.5 mg PO Q6H PRN Pain 04/07/22 04/13/22 Unknown History (not for feeding tubes) promethazine-DM 6.25 mg-15 mg/5 mL 5 ml PO Q4H PRN Cough 04/07/22 04/13/22 Unknown History oral syrup ropinirole 0.5 mg tablet 0.5 mg PO QPM 04/07/22 04/13/22 Unknown History sertraline 50 mg tablet 50 mg PO DAILY 04/07/22 04/13/22 Unknown History simvastatin 40 mg tablet 40 mg PO BEDTIME@21 04/07/22 04/13/22 Unknown History solifenacin 5 mg tablet 5 mg PO QAM 04/07/22 04/13/22 Unknown History thyroid (pork) 90 mg tablet 90 mg PO DAILY 04/07/22 04/13/22 Unknown History ([place] Thyroid) vitamin B complex and vitamin C 1 cap PO QPM 04/07/22 04/13/22 Unknown History no.20-folic acid 1 mg capsule (Renal Caps) vancomycin 750 mg intravenous See Rx Instructions .Route 04/19/22 Unknown Rx solution .COMPLEX #7 ea Allergies Allergy/AdvReac Type Severity Reaction Status Date / Time sulfamethoxazole Allergy Rash Verified 04/13/22 08:41 [From Septra] trimethoprim [From Septra] Allergy Rash Verified 04/13/22 08:41 morphine AdvReac Personality Verified 12/26/21 16:26 Change pregabalin [From Lyrica] AdvReac Loopy/Unste Verified 12/26/21 16:26 anoop PFSH Acute PFSH: Medical History Anemia in chronic illness Chronic insomnia Chronic renal insufficiency COPD (chronic obstructive pulmonary disease) Diabetes mellitus type 2, insulin dependent Diabetic neuropathy ESRD (end stage renal disease) Fibromyalgia History of CVA (cerebrovascular accident) Hyperlipemia Hypertension Hyponatremia Hypothyroidism Influenza A Lumbar disc disease with radiculopathy Neuropathy Parkinson disease Post laminectomy syndrome Sciatica associated with disorder of lumbosacral spine Stage 4 chronic renal impairment associated with type 2 diabetes mellitus Uncontrolled insulin dependent diabetes mellitus Vitamin D deficiency Surgical History History of colonoscopy 2020 Hx of cholecystectomy Hx of foot surgery Hx of hysterectomy S/P dialysis catheter insertion Family History Father CAD (coronary artery disease) Mother CAD (coronary artery disease) Diabetes Grandfather CAD (coronary artery disease) Diabetes Social History Smoking and tobacco status: former smoker Second hand smoke exposure: No Alcohol intake: current Alcohol intake frequency: holidays/special occasions only Alcohol type: hard liquor History of recent travel: No Vitals/I&O/Wt Last Vital Signs Pulse 95 05/13/22 20:32 Resp 21 H 05/13/22 20:32 BP 171/67 05/13/22 20:32 Pulse Ox 94 05/13/22 20:32 O2 Del Method 05/13/22 18:45 Physical Exam Const: COMMON NORMALS: no acute distress and patient oriented x3 HENMT: COMMON NORMALS: normocephalic HEAD & SCALP: normocephalic Eye: COMMON NORMALS: Equal, round and reactive pupils present and EOMs intact bilaterally Neck/C-Spine: COMMON NORMALS: no JVD Lymph: LYMPHATIC: no lymphadenopathy noted Chest: COMMONS NORMALS: normal inspection of the chest Resp: COMMON NORMALS: normal respiratory effort, No retractions, No use of accessory muscles and clear to auscultation bilaterally AUSCULTATION: clear to auscultation bilaterally Cardio: COMMON NORMALS: regular rate, regular rhythm, S1 normal heart sound present and S2 normal heart sound present RATE: regular rate RHYTHM: regular rhythm HEART SOUNDS: S1 normal heart sound present and S2 normal heart sound present GI: COMMON NORMALS: Normal to inspection, nondistended, normoactive bowel sounds present, Soft to palpation and non-tender Extremity: NARRATIVE EXTREMITY EXAM: Bilateral lower extremity, 2+ pitting edema, with erythema of the shins Neuro: COMMON NORMALS: patient oriented x3, CN's II-XII intact bilaterally, moves all extremities and no focal motor deficits Psych: COMMON NORMALS: mental status grossly normal Data 05/13/22 16:30 05/13/22 16:30 A&P Assessment and plan (1) Chest pain: (2) History of pulmonary embolism: (3) Diabetic peripheral neuropathy associated with type 2 diabetes mellitus: (4) S/P dialysis catheter insertion: (5) MRSA bacteremia: (6) ESRD (end stage renal disease): (7) Pneumonia: (8) Chronic kidney disease: (9) Acute exacerbation of CHF (congestive heart failure): (10) Bilateral lower extremity edema: (11) Hypertension: (12) History of CVA (cerebrovascular accident): (13) Hyperlipemia: (14) Uncontrolled insulin dependent diabetes mellitus: (15) Goals of care, counseling/discussion: Plan Severe substernal, radiating to the back -Has features related to possible aortic dissection however, on clinical exam, no unequal pulses, -She has been taken off Eliquis, has a history of 2 pulmonary embolism, the other possibility could be a pulmonary embolism -It could also be a cardiac source, troponin is slightly elevated at 30, no acute ST-T wave changes -She continues to have severe substernal chest pain radiating to the back, currently she is not comfortable in any position due to her back pain Plan -We will do a stat CT a of the chest to evaluate for pulmonary embolism and aortic dissection -If CTA shows aortic dissection she will need to be transferred -If it shows pulmonary embolism, moved to ICU started on heparin drip -If unremarkable then we will have to do further work-up potentially cardiac echo, venous ultrasound bilateral lower extremity -She is already received fentanyl for pain, without improvement, pain control -Serial EKGs, serial troponins, telemetry monitoring -Patient is DNR/DNI -Hold off on anticoagulation until results are back Left AV fistula issues -ascular access: Vascular access is patent. Normal waveforms. No perigraft fluid. No pseudoaneurysm. Arterial inflow: Brachial artery is not demonstrated. Venous outflow: Patent. Normal waveforms. Soft tissues: Visualized soft tissue is unremarkable. Other findings: Axillary and brachial veins are patent throughout without thrombus. Normal compressibility. Visualized internal jugular and subclavian veins are patent. Left radial and left ulnar veins are patent. -On examination left AV fistula, medial aspect, left arm, has a patchy area of erythema, swelling, tenderness, warmth -Possibly cellulitis - is on vancomycin through dialysis -Will monitor -Repeat blood cultures, during her last hospitalization she had MRSA bacteremia, source was of pneumonia, but the other thought was because her fistula be a source of infection we will see what her culture show Type 2 diabetes mellitus, continue -Continue glargine 40 units subcu daily -Low-dose sliding scale History of pulmonary embolism, 2 in the past, should be on indefinite anticoagulation however her anticoagulation was discontinued in [facility] due to concerns for bleeding, superficial bleeding, but no bloody or black stools, will likely have to put her back on anticoagulation in some form MRSA bacteremia, secondary to MRSA pneumonia, continue vancomycin -2. Mild nonspecific patchy airspace disease demonstrated in the right lower lobe superolaterally. This may represent pneumonia. Monitor respiratory status closely End-stage renal disease, right HD catheter in place, consulted nephrology for dialysis Hypertension continue medication History of iron deficiency anemia, requiring blood transfusions, has had low hemoglobins in the 6 in the past, currently hemoglobin stabilized in the 9 range, monitor no bloody or black stool complaint Bilateral lower extremity edema, swelling, erythema, will do venous ultrasound Goals of care discussion, patient wants to remain a DNR/DNI Anticoagulation dependent on results as above Attestations Medical Necessity Statement*: Patient requires inpatient, greater than 2 midnights, for chest pain Coding Level of Care Code Acute Code for Chg Fwd Diagnoses Chest pain R07.9 History of pulmonary embolism Z86.711 Diabetic peripheral neuropathy associated with type 2 diabetes mellitus E11.42 S/P dialysis catheter insertion Z95.828; Z99.2 MRSA bacteremia R78.81; B95.62 ESRD (end stage renal disease) N18.6 Pneumonia J18.9 Chronic kidney disease N18.9 Acute exacerbation of CHF (congestive heart failure) I50.9 Bilateral lower extremity edema R60.0 Hypertension I10 History of CVA (cerebrovascular accident) Z86.73 Hyperlipemia E78.5 Uncontrolled insulin dependent diabetes mellitus Goals of care, counseling/discussion Z71.89
--- NOTE | 2022-05-13 20:45 | PC.NURSE ---
IV attempted for CT scan x2 failed
[2022-05-13] MEDS: iohexol 350 mg/mL 500 mL Btl (per mL) IV (21:12)
--- NOTE | 2022-05-13 21:56 | USR_ITS ---
PROCEDURE INFORMATION: Exam: US Duplex Lower Extremity Veins, Bilateral Exam date and time: 05/13/2022 10:41 PM Age: 77 years old Clinical indication: Edema, localized; Lower extremity, bilateral; Additional info: Dvt TECHNIQUE: Imaging protocol: Real-time duplex ultrasound of the bilateral extremities with 2-D vogel scale, color Doppler flow and spectral waveform analysis with image documentation. Complete exam focused on the bilateral lower extremity veins. COMPARISON: No relevant prior studies available. FINDINGS: Right deep veins: Unremarkable. The common femoral, femoral, proximal profunda femoral and popliteal veins are patent without thrombus. Normal Doppler waveforms. Normal compressibility and/or augmentation response. Right superficial veins: Saphenofemoral junction is patent without thrombus. Left deep veins: Unremarkable. The common femoral, femoral, proximal profunda femoral and popliteal veins are patent without thrombus. Normal Doppler waveforms. Normal compressibility and/or augmentation response. Left superficial veins: Saphenofemoral junction is patent without thrombus. Soft tissues: Unremarkable. US/CV venous duplex [facility] [id number] IMPRESSION: No evidence of deep vein thrombosis, bilateral lower extremities.
--- NOTE | 2022-05-13 21:59 | ECG_ITS ---
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 Measurements Intervals [place] Rate: 97 P: 87 MI: 215 QRS: 2 QRSD: 89 T: 60 QT: 353 QTc: 449 Interpretive Statements SINUS RHYTHM WITH FIRST DEGREE AV BLOCK WITH OCCASIONAL VENTRICULAR PREMATURE COMPLEXES POSSIBLE RIGHT VENTRICULAR CONDUCTION DELAY [RSR (QR) IN V1/V2] MODERATE ST DEPRESSION [0.05+ mV ST DEPRESSION] Compared to ECG 05/13/2022 18:02:38 Ventricular premature complex(es) now present ST (T wave) deviation still present Electronically Signed On 05-14-2022 10:09:38 SCRIPT WORKER by Daniel Rizzo M.D. [id number]
[2022-05-13 22:34] LABS: Lactic Sepsis W/Reflex 1.2 mmol/L (0.5-2.2)
[2022-05-13 22:45] LABS: Vancomycin Trough 19.6 ug/mL (10-15)
[2022-05-13 22:59] LABS: NT Pro B Type Natriuretic Pept 10317 pg/mL (0-450); Procalcitonin 0.17 ng/mL (0-0.5); Thyroid Stimulating Hormone 4.67 uIU/mL (0.27-4.20)
[2022-05-13] MEDS: pantoprazole 40 mg SDV IVP (23:03)
[2022-05-13] MEDS: apixaban 5 mg Tablet PO (23:03)
[2022-05-13] MEDS: metoprolol tartrate 50 mg Tablet 100 MG PO (23:03)
--- NOTE | 2022-05-13 23:09 | PC.NURSE ---
Unable to confirm patient's home meds as she states she does not know them. Patient states the [facility]isted Living staff provide her medicines to her and that we will have to get a list from them.
[2022-05-13] MEDS: oxyCODONE 5 mg IR Tab/Cap 7.5 MG PO (23:16)
[2022-05-13] MEDS: cyclobenzaprine 10 mg Tablet 5 MG PO (23:27)
[2022-05-14] VITALS (32 sets, daily range): BP systolic 131–179; BP diastolic 51–81; PULSE 65–98; RESP 14–28; TEMP 3.1–37.6; O2SAT 83–100
[2022-05-14 00:22] LABS: Troponin 5 6HR 131.2 ng/L (0-10)
[2022-05-14 00:23] LABS: Troponin 5 6HR Delta 101.2 ng/L (0-12)
[2022-05-14] MEDS: acetaminophen 500 mg Tablet 1000 MG PO (00:55)
[2022-05-14] MEDS: hyDROXYzine 25 mg Capsule PO ×3 (00:56→19:45)
[2022-05-14] MEDS: aspirin 81 mg EC Tablet PO ×2 (02:35→10:17)
[2022-05-14] MEDS: metOLazone 5 MG Tablet PO (05:33)
[2022-05-14] MEDS: oxyCODONE 5 mg IR Tab/Cap 7.5 MG PO ×3 (05:33→19:44)
[2022-05-14] MEDS: insulin glargine 100 units/1 mL 20 UNIT SUBCUT (05:38)
--- NOTE | 2022-05-14 06:00 | USCV_ITS ---
Meghna Chaudhari Age: 77 Gender: F : 1945 Exam Date: 05/14/2022 05:52 Ordering Phys: Gaeg Gomez MD Technologist: STEVE Exam Location: [facility] [place] Indication: sob BP: / HR: Rhythm: Sinus Technical Quality: Adequate MEASUREMENTS (Male / Female) Normal Values DOPPLER TR Peak Velocity 334.7 cm/s TR Peak Gradient 44.8 mmHg Right Atrial Pressure 9.0 mmHg Pulmonary Artery Systolic Pressu 53.8 mmHg FINDINGS Left Ventricle Normal left ventricular size, systolic function and wall thickness, with no regional wall motion abnormalities. Grade I/IV diastolic dysfunction (abnormal relaxation filling pattern), normal to mildly elevated filling pressures. Left ventricular ejection fraction is estimated at 60 %. Right Ventricle Normal right ventricular size and systolic function. Moderate pulmonary hypertension, RVSP 53.8 mmHg. Right Atrium Mildly increased right atrial size. Left Atrium Moderately increased left atrial size. Mitral Valve Structurally normal mitral valve. Moderate mitral valve regurgitation. Aortic Valve Structurally normal aortic valve without significant sclerosis or stenosis. There is no aortic regurgitation. Tricuspid Valve Structurally normal tricuspid valve. [id number] tricuspid valve regurgitation. Pulmonic Valve Structurally normal pulmonic valve without significant stenosis. There is no pulmonic regurgitation. Pericardium Normal pericardium without effusion. Aorta Normal ascending aorta dimension. IVC The inferior vena cava appears normal. CONCLUSIONS Normal left ventricular size, systolic function and wall thickness, with no regional wall motion abnormalities. Grade I/IV diastolic dysfunction (abnormal relaxation filling pattern), normal to mildly elevated filling pressures. Left ventricular ejection fraction is estimated at 60 %. Normal right ventricular size and systolic function. Moderate pulmonary hypertension, RVSP 53.8 mmHg. Mildly increased right atrial size. Moderately increased left atrial size. Structurally normal mitral valve. Moderate mitral valve regurgitation. From the previous echo done 08/03/2021, the pulmonary artery pressure is slightly higher, the mitral regurgitation is slightly worse and the tricuspid regurgitation is unchanged. Left ventricular function is also unchanged. Dr. Daniel Rizzo MD (Electronically Signed) Final Date: 14 May 2022 10:04 S
[2022-05-14 06:02] LABS: Basophils # 0.1 10^3/uL (0.0-0.1); Basophils % 0.4 %; Eosinophils # 0.2 10^3/uL (0.0-0.8); Eosinophils % 1.6 %; Hematocrit 28.2 % (37.0-47.0); Hemoglobin 8.3 g/dL (11.5-15.3); Lymphocytes # 1.5 10^3/uL (0.8-4.8); Mean Corpuscular HGB Conc 29.4 g/dL (30.0-36.0); Mean Corpuscular Hemoglobin 30.9 pg (28.0-34.0); Mean Corpuscular Volume 104.8 fl (81-99); Mean Platelet Volume 9.6 fL (7.4-10.4); Monocytes # 0.7 10^3/uL (0.2-0.9); Neutrophils # 8.79 10^3/uL (1.8-7.7); Neutrophils % 78.1 %; Nucleated Red Blood Cells % 0 %; Platelet Count 265 10^3/cmm (130-400); Red Blood Count 2.69 10^6/uL (4.1-5.3); White Blood Count 11.3 10^3/uL (4.0-10.0)
[2022-05-14 06:27] LABS: Anion Gap 20.2 (5-19); Blood Urea Nitrogen 45 mg/dL (8-23); Calcium 8.1 mg/dL (8.5-10.5); Carbon Dioxide 25 mmol/L (22-29); Chloride 95 mmol/L (98-107); Glucose 107 mg/dL (65-115); Magnesium 1.8 mg/dL (1.7-2.3); Osmolality Calculated 294 mOsm/kg (285-295); Potassium 4.2 mmol/L (3.5-5.1); Sodium 136 mmol/L (136-145)
[2022-05-14 06:31] LABS: Troponin T (5th) Once 351 ng/L (0-10)
--- NOTE | 2022-05-14 06:31 | PM.CONSULT ---
Providers/Reason For Consult Consulting Physician/Specialty*: Cheng Gregg MD/ telenephrology Reason for Consult*: ESRD care Requesting Physician: DR Tessa Gomez Attending Physician: Gage Gomez MD Primary Care Provider: Brandi Escalera MD History of Present Illness History of Present Illness Meghna Chaudhari is a 77 year old female with h/o ESRD since spring 2021- HD MWF via LUE AVF ( recent difficulty w/ LUE AVF and has a permacath). She had a recent MRSA pneumonia currently on her third week of 4 of IV vancomycin-at HD, H/O atrial fibrillation, pulmonary embolism x 2, not on anticoagulation taken off when she went to [facility]- as had a new permacath placed. History also includes COPD, Parkinson's disease, insulin-dependent type 2 diabetes mellitus. Patient was admitted yesterday w/ substernal stabbing chest pain, SOB. Pt had a CTA and no PE. Renal called for HD/ ESRD care. Review of Systems Narrative: weak, sob, edema, red legs, poor appetite, forgetful. no n/v/f/egan/d/abd pain. she still urinated. Medications/Allergies Home Medications Medication Instructions Recorded Confirmed Last Taken Type acetaminophen 500 mg tablet 1,000 mg PO Q6H PRN Pain 04/07/22 04/13/22 Unknown History albuterol sulfate 2.5 mg/3 mL 2.5 mg inhalation Q6H PRN 04/07/22 04/13/22 Unknown History (0.083 %) solution for nebulization Shortness Of Breath albuterol sulfate 90 mcg/actuation 2 puff inhalation Q6H PRN Wheezing 04/07/22 04/13/22 Unknown History aerosol inhaler (ProAir HFA) amino acids-protein hydrolysate 15 See Rx Instructions .Route .COMPLEX 04/07/22 04/13/22 Unknown History gram-101 kcal/30 mL oral liquid apixaban 5 mg tablet (Eliquis) 5 mg PO BID 04/07/22 04/13/22 Unknown History benzonatate 100 mg capsule 100 mg PO Q8H PRN Cough 04/07/22 04/13/22 Unknown History bimatoprost 0.01 % eye drops 1 drp ophthalmic (eye) BEDTIME 04/07/22 04/13/22 Unknown History (Lumigan) budesonide 0.5 mg/2 mL suspension 0.5 mg inhalation Q12H 04/07/22 04/13/22 Unknown History for nebulization calcium alginate 2 X 2 bandage 04/07/22 04/13/22 Unknown History carbidopa 25 mg-levodopa 100 mg 2 tab PO TID 04/07/22 04/13/22 Unknown History tablet cholecalciferol (vitamin D3) 50 6,000 unit PO DAILY 04/07/22 04/13/22 Unknown History mcg (2,000 unit) capsule (Vitamin D3) clonidine HCl 0.3 mg tablet 0.3 mg PO Q8H PRN systolic bp >160 04/07/22 04/13/22 Unknown History clopidogrel 75 mg tablet (Plavix) 75 mg PO QPM 04/07/22 04/13/22 Unknown History cyclobenzaprine 5 mg tablet 5 mg PO Q8H PRN Muscle Spasm 04/07/22 04/13/22 Unknown History diphenhydramine HCl 25 mg capsule 25 mg PO BEDTIME PRN Itching 04/07/22 04/13/22 Unknown History (Benadryl) fluticasone propionate 115 2 puff inhalation BID 04/07/22 04/13/22 Unknown History mcg-salmeterol 21 mcg/actuation HFA inhaler (Advair HFA) furosemide 40 mg tablet (Lasix) 40 mg PO BID 04/07/22 04/13/22 Unknown History gabapentin 100 mg capsule 100 mg PO TID 04/07/22 04/13/22 Unknown History hydroxyzine HCl 25 mg tablet 25 mg PO Q8H PRN Itching 04/07/22 04/13/22 Unknown History hydroxyzine pamoate 25 mg capsule 25 mg PO QPM 04/07/22 04/13/22 Unknown History insulin aspart U-100 100 unit/mL See Rx Instructions .Route .COMPLEX 04/07/22 04/13/22 Unknown History (3 mL) subcutaneous pen (Novolog Flexpen U-100 Insulin aspart) insulin glargine 100 unit/mL (3 40 unit SUBCUT DAILY@06 04/07/22 04/13/22 Unknown History mL) subcutaneous pen (Lantus Solostar U-100 Insulin) ipratropium 0.5 mg-albuterol 3 mg 3 ml inhalation Q6H PRN Cough 04/07/22 04/13/22 Unknown History (2.5 mg base)/3 mL nebulization soln loperamide 2 mg tablet (Imodium 2 mg PO Q6H PRN Loose Stool 04/07/22 04/13/22 Unknown History A-D) losartan 50 mg tablet 50 mg PO BEDTIME 04/07/22 04/13/22 Unknown History menthol 4 % topical gel (Biofreeze See Rx Instructions .Route .COMPLEX 04/07/22 04/13/22 Unknown History (menthol)) metolazone 5 mg tablet 5 mg PO QAM 04/07/22 04/13/22 Unknown History metoprolol tartrate 100 mg tablet 100 mg PO BID 04/07/22 04/13/22 Unknown History mirtazapine 30 mg tablet 30 mg PO BEDTIME@21 04/07/22 04/13/22 Unknown History neomycin-bacitracn Zn-polymyx 3.5 See Rx Instructions .Route .COMPLEX 04/07/22 04/13/22 Unknown History mg-400 unit-5,000 unit/gram top oint (Neosporin (xox-mca-rsbit)) ondansetron HCl 4 mg tablet 4 mg PO Q8H PRN Nausea And Vomiting 04/07/22 04/13/22 Unknown History oxycodone 7.5 mg tablet,oral ONLY 7.5 mg PO Q6H PRN Pain 04/07/22 04/13/22 Unknown History (not for feeding tubes) promethazine-DM 6.25 mg-15 mg/5 mL 5 ml PO Q4H PRN Cough 04/07/22 04/13/22 Unknown History oral syrup ropinirole 0.5 mg tablet 0.5 mg PO QPM 04/07/22 04/13/22 Unknown History sertraline 50 mg tablet 50 mg PO DAILY 04/07/22 04/13/22 Unknown History simvastatin 40 mg tablet 40 mg PO BEDTIME@21 04/07/22 04/13/22 Unknown History solifenacin 5 mg tablet 5 mg PO QAM 04/07/22 04/13/22 Unknown History thyroid (pork) 90 mg tablet 90 mg PO DAILY 04/07/22 04/13/22 Unknown History ([place] Thyroid) vitamin B complex and vitamin C 1 cap PO QPM 04/07/22 04/13/22 Unknown History no.20-folic acid 1 mg capsule (Renal Caps) vancomycin 750 mg intravenous See Rx Instructions .Route 04/19/22 Unknown Rx solution .COMPLEX #7 ea Allergies Allergy/AdvReac Type Severity Reaction Status Date / Time sulfamethoxazole Allergy Rash Verified 04/13/22 08:41 [From Septra] trimethoprim [From Septra] Allergy Rash Verified 04/13/22 08:41 morphine AdvReac Personality Verified 12/26/21 16:26 Change pregabalin [From Lyrica] AdvReac Loopy/Unste Verified 12/26/21 16:26 anoop Current Medications Generic Name Dose Route Start Last Admin Trade Name Freq PRN Reason Stop Dose Admin Acetaminophen 1,000 mg 05/13/22 22:01 05/14/22 00:55 Acetaminophen 500 Mg Tablet PO 1,000 mg Q6H PRN Administration Pain Apixaban 5 mg 05/13/22 22:01 05/13/22 23:03 Apixaban 5 Mg Tablet PO 5 mg Q12H BILLIE Administration Aspirin 81 mg 05/14/22 00:45 05/14/22 02:35 Aspirin 81 Mg Ec Tablet PO 81 mg DAILY BILLIE Administration Cyclobenzaprine HCl 5 mg 05/13/22 22:24 05/13/22 23:27 Cyclobenzaprine 10 Mg Tablet PO 5 mg Q8H PRN Administration Muscle Spasm Hydroxyzine Pamoate 25 mg 05/13/22 22:22 05/14/22 00:56 Hydroxyzine 25 Mg Capsule PO 25 mg Q8H PRN Administration Itching Insulin Glargine 20 unit 05/14/22 06:00 05/14/22 05:38 Insulin Glargine 100 Units/1 Ml SUBCUT 20 unit DAILY@06 BILLIE Administration Metolazone 5 mg 05/14/22 06:00 05/14/22 05:33 Metolazone 5 Mg Tablet PO 5 mg QAM BILLIE Administration Metoprolol Tartrate 100 mg 05/13/22 22:30 05/13/22 23:03 Metoprolol Tartrate 50 Mg Tablet PO 100 mg Q12H BILLIE Administration Oxycodone HCl 7.5 mg 05/13/22 23:00 05/14/22 05:33 Oxycodone 5 Mg Ir Tab/Cap PO 7.5 mg Q6H PRN Administration Pain Pantoprazole Sodium 40 mg 05/13/22 22:01 05/13/22 23:03 Pantoprazole 40 Mg Sdv IVP 40 mg Q24H BILLIE Administration PFSH Acute PFSH: Medical History Anemia in chronic illness Chronic insomnia Chronic renal insufficiency COPD (chronic obstructive pulmonary disease) Diabetes mellitus type 2, insulin dependent Diabetic neuropathy ESRD (end stage renal disease) Fibromyalgia History of CVA (cerebrovascular accident) Hyperlipemia Hypertension Hyponatremia Hypothyroidism Influenza A Lumbar disc disease with radiculopathy Neuropathy Parkinson disease Post laminectomy syndrome Sciatica associated with disorder of lumbosacral spine Stage 4 chronic renal impairment associated with type 2 diabetes mellitus Uncontrolled insulin dependent diabetes mellitus Vitamin D deficiency Surgical History History of colonoscopy 2020 Hx of cholecystectomy Hx of foot surgery Hx of hysterectomy S/P dialysis catheter insertion Family History Father CAD (coronary artery disease) Mother CAD (coronary artery disease) Diabetes Grandfather CAD (coronary artery disease) Diabetes Social History Smoking and tobacco status: former smoker Second hand smoke exposure: No Alcohol intake: current Alcohol intake frequency: holidays/special occasions only Alcohol type: hard liquor History of recent travel: No Vitals/I&O/Wt Last Vital Signs Temp 97.2 F L 05/13/22 22:20 Pulse 71 05/14/22 06:00 Resp 16 05/14/22 05:33 BP 148/60 05/14/22 00:00 Pulse Ox 99 05/14/22 04:00 O2 Del Method 05/14/22 04:00 O2 Flow Rate 2 05/14/22 04:00 05/13/22 05/13/22 05/14/22 14:59 22:59 06:59 Intake Total 240 / 240 Balance 240 / 240 Weight last 48 hrs Weight 120.429 kg Weight 120.882 kg Physical Exam Narrative: VSS mild disconfort in bed on Nc02 heent- nc/at, eomi, anicteric neck supple lungs rt dull base, otherwise clear heart irreg irreg abd soft, nt, nd, + bs ext red ankles, has some edema neuro- a,a, o x 3 Data 05/14/22 05:38 05/14/22 05:38 Micro: Microbiology 05/13/22 05:43 Blood Culture - Preliminary Blood SPECIMEN COLLECTED 05/13/22 05:38 Blood Culture - Preliminary Blood SPECIMEN COLLECTED A&P Assessment and plan (1) ESRD (end stage renal disease): 77 yr old female DM, HTN, a fib, h/o PE, recent MRSA PNA. PT here w/ CP and sob. she had a CTA w/ pulm htn, no PE, rt lobe pmneumonia and 6 mm right perifissural nodule 1. ESRD- HD MWF. will dialyze today and remove fluids -vanco 1 gm on hd today -1:40 paras in July 2021- repeat paras 2.f/u with RN id AVF works. agree w/ usingg eliquis 3. anemia- check iron studies- ferritin was 1197 on 04/19/22- will use CHANDRAKANT 4. DM control per medicine -monitor feet 5. BP controlled 6. recent PTH 202- acceptable for ESRD -check pth level seen and examined w/ rN-telehealth visit informed consent for telehealth and HD obtained from the patient Plan see above Consult Attestations Medical Necessity Statement: esrd, sob Time Spent in Patient Care: Greater than 35 minutes (>than 50% of time spent in counselling and/or direct pt care on unit). Coding Level of Care Code Acute Code for g Fwd Diagnoses ESRD (end stage renal disease) N18.6
[2022-05-14 06:59] LABS: Glucose Point of Care 117 mg/dL (70-110)
[2022-05-14 07:26] LABS: Iron 44 ug/dL (37-145); Total Iron Binding Capacity 183 mcg/dl; Unsaturated Iron Binding 139 ug/dL (112-347)
[2022-05-14 07:40] LABS: Ferritin 1187 ng/mL (15-150)
[2022-05-14] MEDS: ipratropium-albuterol 3 mL Neb INHALATION ×4 (09:12→22:24)
[2022-05-14 09:34] LABS: Hepatitis B Surface Antigen Non-Reactive (Nonreactive); Hepatitis C Virus Antibody Non-Reactive (Nonreactive)
--- NOTE | 2022-05-14 09:47 | PC.HD ---
Per Dr. Gregg, this RN was to attempt to access patient's new LAVF. However, upon discussion with patient, her clinic only accessed it 1x and were unsuccessful in initiating HD using the fistula. Area is bruised, swollen, and tender. Strong bruit and thrill noted. Patient requested accessing the established R IJ HD catheter, which was done.
--- NOTE | 2022-05-14 10:13 | PM.PN ---
Subjective Subjective: Patient reports chest pain has resolved. Denies shortness of breath, nausea, emesis, or abdominal pains. Medications: Reviewed: Yes Vitals/I&O/Wt Last Vital Signs Temp 96.6 F L 05/14/22 09:43 Pulse 73 05/14/22 09:43 Resp 18 05/14/22 09:43 BP 169/79 05/14/22 09:43 Pulse Ox 98 05/14/22 09:10 O2 Del Method 05/14/22 09:10 O2 Flow Rate 2 05/14/22 09:10 05/13/22 05/14/22 05/14/22 22:59 06:59 14:59 Intake Total 240 / 240 Balance 240 / 240 Weight last 48 hrs Weight 120.429 kg Weight 120.882 kg Physical Exam Narrative: General: Patient is awake. Frail appearing. Head: Normocephalic. Atraumatic. EOM intact. Neck: No JVD. Cardiovascular: RRR. No gallops. No murmurs. Lower extremity edema bilaterally. Hypertensive. Lungs: Breath sounds diminished bilateral bases, no use of accessory muscles, no crackles or wheezes. Skin: No jaundice. No rashes. Abdomen: Normal bowel sounds, abdomen soft and nontender. Genito Urinary: Genital exam not performed since complaints not related. Rectal: Rectal exam not performed since no symptoms indicated blood loss. Extremities: No cyanosis or clubbing. Fistula in left upper arm with overlying bruise. Musculoskeletal: Normal l range of motion, no swollen or erythematous joints. Neurological: Moves all 4 extremities. No myoclonus. Data 05/14/22 05:38 05/14/22 05:38 Micro: Microbiology 05/13/22 05:43 Blood Culture - Preliminary Blood SPECIMEN COLLECTED 05/13/22 05:38 Blood Culture - Preliminary Blood SPECIMEN COLLECTED A&P Assessment and plan (1) Chest pain: Associated with myocardial injury with elevated troponin Chest pain has resolved Chest CT was negative for pulmonary embolism or aneurysm Echocardiogram is pending Cardiology consulted Continue aspirin Continue Plavix Continue metoprolol (2) History of pulmonary embolism: Imaging negative for pulmonary embolism Apixaban on hold, will discontinue (3) MRSA bacteremia: Patient was discharged on 04/19 on vancomycin with stop date of 05/03 Repeat cultures obtained 05/13 Discontinue IV vancomycin and follow cultures He has outpatient appointment with ID on 05/18, consider inpatient consultation as appropriate (4) ESRD (end stage renal disease): With AV fistula Suspected recent dysfunction per Dr. Gomez's H&P Nephrology consulted Will see how fistula performs dialysis (5) Acute exacerbation of CHF (congestive heart failure): Associated with bilateral lower extremity swelling NT-BNP elevated in the setting of end-stage renal disease Continue Lasix twice daily Attempt volume control hopefully with dialysis Continue ARB Continue beta-savanah Strict I's and O's Daily weights (6) Uncontrolled insulin dependent diabetes mellitus: Continue Lantus Sliding scale insulin correction Avoid hypoglycemia (7) Diabetic peripheral neuropathy associated with type 2 diabetes mellitus: Continue gabapentin (8) Iron deficiency anemia: On epoetin per nephrology (9) History of CVA (cerebrovascular accident): Continue DAPT Continue statin (10) Hypertension: Continue ARB Continue metoprolol Continue clonidine (11) Hyperlipemia: Continue statin (12) Parkinson disease: Continue Sinemet Plan DVT prophylaxis: Heparin CODE STATUS: DNR Attestations Medical Necessity Statement*: Patient presents with chest pain with multiple comorbidities with expected hospitalization across 2 midnights. Coding Level of Care Code Acute Code for Chg Fwd Diagnoses Chest pain R07.9 History of pulmonary embolism Z86.711 MRSA bacteremia R78.81; B95.62 ESRD (end stage renal disease) N18.6 Acute exacerbation of CHF (congestive heart failure) I50.9 Uncontrolled insulin dependent diabetes mellitus Diabetic peripheral neuropathy associated with type 2 diabetes mellitus E11.42 Iron deficiency anemia D50.9 History of CVA (cerebrovascular accident) Z86.73 Hypertension I10 Hyperlipemia E78.5 Parkinson disease G20
[2022-05-14] MEDS: diphenhydrAMINE 25 mg Capsule PO (10:15)
[2022-05-14] MEDS: gabapentin 100 mg Capsule PO ×3 (10:16→21:21)
[2022-05-14] MEDS: metoprolol tartrate 50 mg Tablet 100 MG PO ×2 (10:16→23:33)
[2022-05-14] MEDS: carbidopa-levodopa 25-100mg Tablet 2 EACH PO ×3 (10:16→21:21)
[2022-05-14] MEDS: FUROsemide 40 mg Tablet PO ×2 (10:17→17:59)
[2022-05-14] MEDS: sertraline 50 mg Tablet PO (10:18)
[2022-05-14] MEDS: cholecalciferol (vitamin D3) 1,000 unit Tablet 6000 UNIT PO (10:19)
[2022-05-14] MEDS: thyroid 60 mg Tablet 90 MG PO (10:21)
[2022-05-14 11:19] LABS: Glucose Point of Care 137 mg/dL (70-110)
[2022-05-14 11:26] LABS: Procalcitonin 0.14 ng/mL (0-0.5)
[2022-05-14 12:13] LABS: Hepatitis B Surface AB > 1000.0 (11.5-1000)
[2022-05-14] MEDS: heparin 5,000 unit/mL INJ 1 mL 5000 UNIT SUBCUT ×2 (12:39→23:33)
--- NOTE | 2022-05-14 14:18 | PM.CONSULT ---
Providers/Reason For Consult Consulting Physician/Specialty*: Cardiovascular medicine Reason for Consult*: Elevated troponin, chest pain Requesting Physician: Hospitalist Attending Physician: Armando Mendoza MD Primary Care Provider: Brandi Escalera MD History of Present Illness History of Present Illness Meghna Chaudhari is a 77 year old female with a complex medical history that includes end-stage renal disease on hemodialysis, anemia of chronic disease, prior tobacco abuse, COPD, uncontrolled insulin requiring diabetes, fibromyalgia, cerebrovascular accident, dyslipidemia, hypertension, Parkinson syndrome, Charcot joint, history of pulmonary emboli, MRSA infections, heart failure with preserved ejection fraction. She is in and out of the hospital frequently due to the complications of all of these medical problems. She was hospitalized here from April 06 through April 08 with pneumonia and influenza A. 2 days later a blood culture came back positive for MRSA. She was called back to the hospital on the and was admitted for a week from April 12 through April 19. She was started on intravenous vancomycin and ultimately went home on this drug. Yesterday she was sitting at the assisted living facility where she lives and noted the sudden onset of sharp stabbing chest pain that radiated through to her back. The detention personnel called an ambulance. She was brought here where CT scanning showed a possible pneumonia with dilated pulmonary arteries but no pulmonary embolism and no aortic dissection. Chest x-ray was unremarkable. She was admitted for observation. Her troponins then came back slightly positive. The initial was 30, second 35 and the third 131. Her BNP was over 10,000. Her creatinine runs about 5.0. She is a DNR. She also had a duplex of her arm showing the fistula is patent. Venous duplex of the lower extremity was negative. Her EKGs reveal sinus rhythm with 1 PVC and very mild diffuse ST segment depression. A repeat echo revealed normal LV function with pulmonary artery pressure 54 mmHg, moderate mitral regurgitation and severe tricuspid regurgitation. This is unchanged from her previous echo. I was asked to see her because of her elevation in the troponins. Her chart states she has been on Eliquis however that is not true according to the patient. She had previously been on this drug I assume because of the pulmonary emboli. She tells me she has not been taking it for several months. This was discontinued because of some bleeding in her lower extremities. Review of Systems Narrative: Review of systems is diffusely positive in all distributions Medications/Allergies Home Medications Medication Instructions Recorded Confirmed Last Taken Type acetaminophen 500 mg tablet 1,000 mg PO Q6H PRN Pain 04/07/22 05/14/22 Unknown History albuterol sulfate 90 mcg/actuation 2 puff inhalation Q6H PRN Wheezing 04/07/22 05/14/22 Unknown History aerosol inhaler (ProAir HFA) amino acids-protein hydrolysate 15 See Rx Instructions .Route .COMPLEX 04/07/22 05/14/22 Unknown History gram-101 kcal/30 mL oral liquid apixaban 5 mg tablet (Eliquis) 5 mg PO BID 04/07/22 05/14/22 Unknown History benzonatate 100 mg capsule 100 mg PO Q8H PRN Cough 04/07/22 05/14/22 Unknown History bimatoprost 0.01 % eye drops 1 drp ophthalmic (eye) BEDTIME 04/07/22 05/14/22 Unknown History (Pepe) budesonide 0.5 mg/2 mL suspension 0.5 mg inhalation Q12H 04/07/22 05/14/22 Unknown History for nebulization calcium alginate 2 X 2 bandage 04/07/22 05/14/22 Unknown History carbidopa 25 mg-levodopa 100 mg 2 tab PO TID 04/07/22 05/14/22 Unknown History tablet cholecalciferol (vitamin D3) 50 6,000 unit PO DAILY 04/07/22 05/14/22 Unknown History mcg (2,000 unit) capsule (Vitamin D3) clonidine HCl 0.3 mg tablet 0.3 mg PO Q8H PRN systolic bp >160 04/07/22 05/14/22 Unknown History clopidogrel 75 mg tablet (Plavix) 75 mg PO QPM 04/07/22 05/14/22 Unknown History cyclobenzaprine 5 mg tablet 5 mg PO Q8H PRN Muscle Spasm 04/07/22 05/14/22 Unknown History fluticasone propionate 115 2 puff inhalation BID 04/07/22 05/14/22 Unknown History mcg-salmeterol 21 mcg/actuation HFA inhaler (Advair HFA) furosemide 40 mg tablet (Lasix) 40 mg PO BID 04/07/22 05/14/22 Unknown History gabapentin 100 mg capsule 100 mg PO TID 04/07/22 05/14/22 Unknown History hydroxyzine HCl 25 mg tablet 25 mg PO Q8H PRN Itching 04/07/22 05/14/22 Unknown History hydroxyzine pamoate 25 mg capsule 25 mg PO QPM 04/07/22 05/14/22 Unknown History insulin aspart U-100 100 unit/mL See Rx Instructions .Route .COMPLEX 04/07/22 05/14/22 Unknown History (3 mL) subcutaneous pen (Novolog Flexpen U-100 Insulin aspart) insulin glargine 100 unit/mL (3 40 unit SUBCUT DAILY@06 04/07/22 05/14/22 Unknown History mL) subcutaneous pen (Lantus Solostar U-100 Insulin) ipratropium 0.5 mg-albuterol 3 mg 3 ml inhalation Q6H PRN Cough 04/07/22 05/14/22 Unknown History (2.5 mg base)/3 mL nebulization soln loperamide 2 mg tablet (Imodium 2 mg PO Q6H PRN Loose Stool 04/07/22 05/14/22 Unknown History A-D) losartan 50 mg tablet 50 mg PO BEDTIME 04/07/22 05/14/22 Unknown History menthol 4 % topical gel (Biofreeze See Rx Instructions .Route .COMPLEX 04/07/22 05/14/22 Unknown History (menthol)) metolazone 5 mg tablet 5 mg PO QAM 04/07/22 05/14/22 Unknown History metoprolol tartrate 100 mg tablet 100 mg PO BID 04/07/22 05/14/22 Unknown History mirtazapine 30 mg tablet 30 mg PO BEDTIME@21 04/07/22 05/14/22 Unknown History neomycin-bacitracn Zn-polymyx 3.5 See Rx Instructions .Route .COMPLEX 04/07/22 05/14/22 Unknown History mg-400 unit-5,000 unit/gram top oint (Neosporin ([id number])) ondansetron HCl 4 mg tablet 4 mg PO Q8H PRN Nausea And Vomiting 04/07/22 05/14/22 Unknown History oxycodone 7.5 mg tablet,oral ONLY 7.5 mg PO Q6H PRN Pain 04/07/22 05/14/22 Unknown History (not for feeding tubes) promethazine-DM 6.25 mg-15 mg/5 mL 5 ml PO Q4H PRN Cough 04/07/22 05/14/22 Unknown History oral syrup ropinirole 0.5 mg tablet 0.5 mg PO QPM 04/07/22 05/14/22 Unknown History sertraline 50 mg tablet 50 mg PO DAILY 04/07/22 05/14/22 Unknown History simvastatin 40 mg tablet 40 mg PO BEDTIME@21 04/07/22 05/14/22 Unknown History solifenacin 5 mg tablet 5 mg PO QAM 04/07/22 05/14/22 Unknown History thyroid (pork) 90 mg tablet 90 mg PO DAILY 04/07/22 05/14/22 Unknown History ([place] Thyroid) vitamin B complex and vitamin C 1 cap PO QPM 04/07/22 05/14/22 Unknown History no.20-folic acid 1 mg capsule (Renal Caps) diphenhydramine HCl 25 mg tablet 25 mg PO Q24H PRN Itching 05/14/22 05/14/22 Unknown History (Banophen) Allergies Allergy/AdvReac Type Severity Reaction Status Date / Time sulfamethoxazole Allergy Rash Verified 04/13/22 08:41 [From Decra] trimethoprim [From Septra] Allergy Rash Verified 04/13/22 08:41 morphine AdvReac Personality Verified 12/26/21 16:26 Change pregabalin [From Lyrica] AdvReac Loopy/Unste Verified 12/26/21 16:26 anoop Current Medications Generic Name Dose Route Start Last Admin Trade Name Freq PRN Reason Stop Dose Admin Acetaminophen 1,000 mg 05/13/22 22:01 05/14/22 00:55 Acetaminophen 500 Mg Tablet PO 1,000 mg Q6H PRN Administration Pain Albuterol/Ipratropium 3 ml 05/14/22 08:00 05/14/22 11:11 Ipratropium-Albuterol 3 Ml Neb INHALATION 3 ml QID.RESPIRATORY BILLIE Administration Aspirin 81 mg 05/14/22 00:45 05/14/22 10:17 Aspirin 81 Mg Ec Tablet PO 81 mg DAILY [facility] Administration Carbidopa/Levodopa 2 each 05/14/22 09:00 05/14/22 10:16 Carbidopa-Levodopa 25-100mg Tablet PO 2 each TID BILLIE Administration Cyclobenzaprine HCl 5 mg 05/13/22 22:24 05/13/22 23:27 Cyclobenzaprine 10 Mg Tablet PO 5 mg Q8H PRN Administration Muscle Spasm Diphenhydramine HCl 25 mg 05/13/22 22:01 05/14/22 10:15 Diphenhydramine 25 Mg Capsule PO 25 mg BEDTIME PRN Administration Itching Furosemide 40 mg 05/14/22 09:00 05/14/22 10:17 Furosemide 40 Mg Tablet PO 40 mg BID BILLIE Administration Gabapentin 100 mg 05/14/22 09:00 05/14/22 10:16 Gabapentin 100 Mg Capsule PO 100 mg TID [facility] Administration Heparin Sodium (Porcine) 5,000 unit 05/14/22 10:45 05/14/22 12:39 Heparin 5,000 Unit/Ml Inj 1 Ml SUBCUT 5,000 unit Q12H [facility] Administration Hydroxyzine Pamoate 25 mg 05/13/22 22:22 05/14/22 00:56 Hydroxyzine 25 Mg Capsule PO 25 mg Q8H PRN Administration Itching Insulin Glargine 20 unit 05/14/22 06:00 05/14/22 05:38 Insulin Glargine 100 Units/1 Ml SUBCUT 20 unit DAILY@06 [facility] Administration Insulin Human Lispro 0 unit 05/14/22 08:00 05/14/22 12:26 Insulin Lispro 100 Unit/1 Ml SUBCUT Not Given TIDWM [facility] Protocol Metoprolol Tartrate 100 mg 05/13/22 22:30 05/14/22 10:16 Metoprolol Tartrate 50 Mg Tablet PO 100 mg Q12H [facility] Administration Oxycodone HCl 7.5 mg 05/13/22 23:00 05/14/22 12:49 Oxycodone 5 Mg Ir Tab/Cap PO 7.5 mg Q6H PRN Administration Pain Pantoprazole Sodium 40 mg 05/13/22 22:01 05/13/22 23:03 Pantoprazole 40 Mg Sdv IVP 40 mg Q24H [facility] Administration Sertraline HCl 50 mg 05/14/22 09:00 05/14/22 10:18 Sertraline 50 Mg Tablet PO 50 mg DAILY [facility] Administration Thyroid 90 mg 05/14/22 09:00 05/14/22 10:21 Thyroid 60 Mg Tablet PO 90 mg DAILY [facility] Administration Vitamin D 6,000 unit 05/14/22 09:00 05/14/22 10:19 Cholecalciferol (Vitamin D3) 1,000 Unit Tablet PO 6,000 unit DAILY [facility] Administration PFSH Acute PFSH: Medical History (Updated 05/14/22 @ 14:25 by Daniel Rizzo MD) Anemia in chronic illness Chronic insomnia Chronic renal insufficiency COPD (chronic obstructive pulmonary disease) Diabetes mellitus type 2, insulin dependent Diabetic neuropathy Elevated troponin ESRD (end stage renal disease) Fibromyalgia History of CVA (cerebrovascular accident) Hyperlipemia Hypertension Hyponatremia Hypothyroidism Influenza A Lumbar disc disease with radiculopathy Neuropathy Parkinson disease Post laminectomy syndrome Sciatica associated with disorder of lumbosacral spine Stage 4 chronic renal impairment associated with type 2 diabetes mellitus Uncontrolled insulin dependent diabetes mellitus Vitamin D deficiency Surgical History History of colonoscopy 2020 Hx of cholecystectomy Hx of foot surgery Hx of hysterectomy S/P dialysis catheter insertion Family History Father CAD (coronary artery disease) Mother CAD (coronary artery disease) Diabetes Grandfather CAD (coronary artery disease) Diabetes Social History Smoking and tobacco status: former smoker Second hand smoke exposure: No Alcohol intake: current Alcohol intake frequency: holidays/special occasions only Alcohol type: hard liquor History of recent travel: No Vitals/I&O/Wt Last Vital Signs Temp 37.6 F L 05/14/22 14:05 Pulse 71 05/14/22 14:05 Resp 16 05/14/22 14:05 BP 177/72 05/14/22 14:05 Pulse Ox 98 05/14/22 12:49 O2 Del Method 05/14/22 11:15 O2 Flow Rate 2 05/14/22 09:10 05/13/22 05/14/22 05/14/22 22:59 06:59 14:59 Intake Total 240 / 240 400 / 400 Output Total 2800 / 2800 Balance 240 / 240 -2400 / -2400 Weight last 48 hrs Weight 259 lb 7.745 oz Weight 265 lb 8 oz Weight 266 lb 8 oz Physical Exam Narrative: GENERAL: In general she is awake and alert having just finished dialysis. No distress. Chest pain is gone HEENT: Exam within normal limits. NECK: Supple without jugular vein distention. The carotid upstroke is normal without bruits. BACK: Exam normal. LUNGS: Clear. HEART: Regular rate and rhythm. ABDOMEN: Benign without organomegaly or tenderness. EXTREMITIES: There is a fistula in the left upper extremity. There is associated bruising and ecchymosis. This apparently was just activated. NEUROLOGIC: Exam normal. SKIN: Unremarkable. Data 05/14/22 05:38 05/14/22 05:38 Micro: Microbiology 05/13/22 05:43 Blood Culture - Preliminary Blood SPECIMEN COLLECTED 05/13/22 05:38 Blood Culture - Preliminary Blood SPECIMEN COLLECTED A&P Assessment and plan (1) Parkinson disease: (2) History of pulmonary embolism: (3) Chest pain: (4) 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: (5) Charcot's joint of left foot: (6) Diabetic peripheral neuropathy associated with type 2 diabetes mellitus: (7) S/P dialysis catheter insertion: (8) MRSA bacteremia: (9) ESRD (end stage renal disease): (10) Iron deficiency anemia: (11) Uncontrolled insulin dependent diabetes mellitus: (12) Hyperlipemia: (13) Hypertension: (14) Elevated troponin: Consult Attestations Medical Necessity Statement: It is difficult to tell whether this is a coronary syndrome or not. She has plenty of reasons to have chest pain and also plenty reasons other than cardiac reasons to have a troponin elevation. She is a complicated patient with multiple medical problems and access difficulties. We will start out with a stress test tomorrow and stratify her risk. Based on that we may or may not perform coronary angiography. In the meantime she will remain off anticoagulants. Coding Level of Care Code New Pt Acute Code for Chg Fwd Patient Type New History Comprehensive Medical Decision Making High Complexity Diagnoses Parkinson disease G20 History of pulmonary embolism Z86.711 Chest pain R07.9 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 L97.422 Charcot's joint of left foot M14.672 Diabetic peripheral neuropathy associated with type 2 diabetes mellitus E11.42 S/P dialysis catheter insertion Z95.828; Z99.2 MRSA bacteremia R78.81; B95.62 ESRD (end stage renal disease) N18.6 Iron deficiency anemia D50.9 Uncontrolled insulin dependent diabetes mellitus Hyperlipemia E78.5 Hypertension I10 Elevated troponin R77.8
[2022-05-14] MEDS: epoetin alfa 1000 Unit/0.05 mL (ESRD) 5000 UNIT SUBCUT (14:31)
[2022-05-14] MEDS: heparin, porcine 1,000 unit/mL INJ 10 mL HE (14:34)
[2022-05-14 16:24] LABS: Glucose Point of Care 187 mg/dL (70-110)
[2022-05-14] MEDS: cyclobenzaprine 10 mg Tablet 5 MG PO (16:35)
[2022-05-14] MEDS: b-complex-vitamin c Tablet 1 EACH PO (17:59)
[2022-05-14] MEDS: clopidogrel 75 mg Tablet PO (17:59)
[2022-05-14] MEDS: ropinirole 0.25 mg Tablet 0.5 MG PO (17:59)
[2022-05-14] MEDS: insulin lispro 100 unit/1 mL SUBCUT (17:59)
[2022-05-14 21:18] LABS: Glucose Point of Care 158 mg/dL (70-110)
[2022-05-14] MEDS: losartan 50 mg Tablet PO (21:20)
[2022-05-14] MEDS: atorvastatin 40 mg Tablet 20 MG PO (21:20)
[2022-05-14] MEDS: mirtazapine 30 mg Tablet PO (21:21)
[2022-05-14] MEDS: pantoprazole 40 mg SDV IVP (21:26)
[2022-05-15] VITALS (19 sets, daily range): BP systolic 114–149; BP diastolic 51–99; PULSE 62–83; RESP 16–25; TEMP 36.4–36.9; O2SAT 93–100
[2022-05-15 01:30] LABS: Basophils # 0.1 10^3/uL (0.0-0.1); Basophils % 0.6 %; Eosinophils # 0.1 10^3/uL (0.0-0.8); Eosinophils % 0.9 %; Hematocrit 27.1 % (37.0-47.0); Hemoglobin 8.1 g/dL (11.5-15.3); Lymphocytes # 1.5 10^3/uL (0.8-4.8); Lymphocytes % 12.8 %; Mean Corpuscular HGB Conc 29.9 g/dL (30.0-36.0); Mean Corpuscular Hemoglobin 31.2 pg (28.0-34.0); Mean Corpuscular Volume 104.2 fl (81-99); Mean Platelet Volume 9.5 fL (7.4-10.4); Monocytes # 0.8 10^3/uL (0.2-0.9); Monocytes % 6.5 %; Neutrophils # 9.21 10^3/uL (1.8-7.7); Neutrophils % 78.6 %; Nucleated Red Blood Cells % 0 %; Platelet Count 256 10^3/cmm (130-400); Red Cell Distribution Width 16.8 % (12.1-15.1); White Blood Count 11.7 10^3/uL (4.0-10.0)
[2022-05-15 01:51] LABS: Alanine Aminotransferase < 5 U/L (0-33); Albumin Level 3.6 g/dL (3.5-5.2); Alkaline Phosphatase 94 U/L (35-105); Anion Gap 15.2 (5-19); Aspartate Amino Transferase 22 U/L (0-32); Blood Urea Nitrogen 25 mg/dL (8-23); Calcium 8.4 mg/dL (8.5-10.5); Carbon Dioxide 27 mmol/L (22-29); Chloride 98 mmol/L (98-107); Globulin 3.3 g/dL (1.3-4.6); Glucose 95 mg/dL (65-115); Magnesium 1.9 mg/dL (1.7-2.3); Osmolality Calculated 286 mOsm/kg (285-295); Phosphorus 4.1 mg/dL (2.5-4.5); Potassium 4.2 mmol/L (3.5-5.1); Sodium 136 mmol/L (136-145); Total Bilirubin 0.5 mg/dL (0.15-1.2); Total Protein 6.9 g/dL (6.6-8.7)
--- NOTE | 2022-05-15 06:30 | PC.NURSE ---
Spoke with regarding patients am dose of lantus. The patient is possibly going for a stress trest today, currently NPO, blood glucose 130 and is due for 20 of Lantus. Per hold for now, can be given when patient is no longer NPO.
[2022-05-15 06:54] LABS: Glucose Point of Care 130 mg/dL (70-110)
--- NOTE | 2022-05-15 07:17 | P.PN_ITS ---
Subjective Subjective: feels better. still has edema and sob. she c/o leg pain after dialysis yesterday Medications: Reviewed: Yes Medication Review Details: Current Medications Acetaminophen (Acetaminophen 500 Mg Tablet) 1,000 mg PO Q6H PRN PRN Reason: Pain Last Admin: 05/14/22 00:55 Dose: 1,000 mg Albuterol/Ipratropium (Ipratropium-Albuterol 3 Ml Neb) 3 ml INHALATION Q6H PRN PRN Reason: Cough Albuterol/Ipratropium (Ipratropium-Albuterol 3 Ml Neb) 3 ml INHALATION QID.RESPIRATORY [facility] Last Admin: 05/14/22 22:24 Dose: 3 ml Aminophylline (Aminophylline 25 Mg/Ml Sdv 10 Ml) 25 mg IVP Q2M PRN PRN Reason: see dose instructions Stop: 05/15/22 14:25 Aspirin (Aspirin 81 Mg Ec Tablet) 81 mg PO DAILY [facility] Last Admin: 05/14/22 10:17 Dose: 81 mg Atorvastatin Calcium (Atorvastatin 40 Mg Tablet) 20 mg PO BEDTIME@21 [facility] Last Admin: 05/14/22 21:20 Dose: 20 mg Benzonatate (Benzonatate 100 Mg Capsule) 100 mg PO Q8H PRN PRN Reason: Cough Bimatoprost (Bimatoprost 0.01% Op Soln 2.5 Ml Btl) 1 drop EYE-BOTH BEDTIME [facility] Last Admin: 05/14/22 23:33 Dose: 1 drop Carbidopa/Levodopa (Carbidopa-Levodopa 25-100mg Tablet) 2 each PO TID [facility] Last Admin: 05/14/22 21:21 Dose: 2 each Clonidine HCl (Clonidine 0.1 Mg Tablet) 0.3 mg PO Q8H PRN PRN Reason: systolic bp >160 Clopidogrel Bisulfate (Clopidogrel 75 Mg Tablet) 75 mg PO QPM [facility] Last Admin: 05/14/22 17:59 Dose: 75 mg Cyclobenzaprine HCl (Cyclobenzaprine 10 Mg Tablet) 5 mg PO Q8H PRN PRN Reason: Muscle Spasm Last Admin: 05/14/22 16:35 Dose: 5 mg Dextrose (Dextrose 50% Syringe 50 Ml) 25 ml IVP ONCE PRN; Protocol PRN Reason: hypoglycemia protocol Dextrose (Dextrose 50% Syringe 50 Ml) 50 ml IVP PRN PRN; Protocol PRN Reason: hypoglycemia protocol Diphenhydramine HCl (Diphenhydramine 25 Mg Capsule) 25 mg PO BEDTIME PRN PRN Reason: Itching Last Admin: 05/14/22 10:15 Dose: 25 mg Epoetin Juancarlos (Epoetin Juancarlos 1000 Unit/0.05 Ml (Esrd)) 5,000 unit SUBCUT DIALYSIS [facility] Last Admin: 05/14/22 14:31 Dose: 5,000 unit Furosemide (Furosemide 40 Mg Tablet) 40 mg PO BID [facility] Last Admin: 05/14/22 17:59 Dose: 40 mg Gabapentin (Gabapentin 100 Mg Capsule) 100 mg PO TID [facility] Last Admin: 05/14/22 21:21 Dose: 100 mg Glucagon (Glucagon 1 Mg/Ml Inj 1 Ml) 1 mg IM ONCE PRN; Protocol PRN Reason: Adult Acute Hypoglycemia Prot. Heparin Sodium (Porcine) (Heparin 5,000 Unit/Ml Inj 1 Ml) 5,000 unit SUBCUT Q12H [facility] Last Admin: 05/14/22 23:33 Dose: 5,000 unit Hydroxyzine Pamoate (Hydroxyzine 25 Mg Capsule) 25 mg PO Q8H PRN PRN Reason: Itching Last Admin: 05/14/22 19:45 Dose: 25 mg Hydroxyzine Pamoate (Hydroxyzine 25 Mg Capsule) 25 mg PO QPM [facility] Last Admin: 05/14/22 17:59 Dose: 25 mg Dextrose (D5w) 500 mls @ 100 mls/hr IV ONCE PRN; Protocol PRN Reason: Adult Acute Hypoglycemia Prot Insulin Glargine (Insulin Glargine 100 Units/1 Ml) 20 unit SUBCUT DAILY@06 [facility] Last Admin: 05/15/22 06:37 Dose: Not Given Insulin Human Lispro (Insulin Lispro 100 Unit/1 Ml) 0 unit SUBCUT TIDWM [facility]; Protocol Last Admin: 05/14/22 17:59 Dose: 4 unit Losartan Potassium (Losartan 50 Mg Tablet) 50 mg PO BEDTIME [facility] Last Admin: 05/14/22 21:20 Dose: 50 mg Metoprolol Tartrate (Metoprolol Tartrate 50 Mg Tablet) 100 mg PO Q12H [facility] Last Admin: 05/14/22 23:33 Dose: 100 mg Mirtazapine (Mirtazapine 30 Mg Tablet) 30 mg PO BEDTIME@21 [facility] Last Admin: 05/14/22 21:21 Dose: 30 mg Multivitamins (D-Kfsdkhv-Hrtkfzm C Tablet) 1 each PO QPM [facility] Last Admin: 05/14/22 17:59 Dose: 1 each Nitroglycerin (Nitroglycerin 0.4 Mg Sublingual Tablet) 0.4 mg SUBLINGUAL Q5M PRN PRN Reason: CHEST PAIN Stop: 05/15/22 14:25 Non-Formulary Medication (Solifenacin) 5 mg PO QAM [facility] Ondansetron HCl (Ondansetron 2 Mg/Ml Sdv 2 Ml) 4 mg IVP Q8H PRN PRN Reason: vomiting, or N/V if npo Ondansetron HCl (Ondansetron 2 Mg/Ml Sdv 2 Ml) 4 mg IVP Q2M PRN PRN Reason: NAUSEA Oxycodone HCl (Oxycodone 5 Mg Ir Tab/Cap) 7.5 mg PO Q6H PRN PRN Reason: Pain Last Admin: 05/14/22 19:44 Dose: 7.5 mg Pantoprazole Sodium (Pantoprazole 40 Mg Sdv) 40 mg IVP Q24H [facility] Last Admin: 05/14/22 21:26 Dose: 40 mg Regadenoson (Regadenoson 0.4 Mg/5 Ml Syringe) 0.4 mg IVP ONCE PRN PRN Reason: Lexiscan Stress Test Ropinirole HCl (Ropinirole 0.25 Mg Tablet) 0.5 mg PO QPM [facility] Last Admin: 05/14/22 17:59 Dose: 0.5 mg Sertraline HCl (Sertraline 50 Mg Tablet) 50 mg PO DAILY [facility] Last Admin: 05/14/22 10:18 Dose: 50 mg Thyroid (Thyroid 60 Mg Tablet) 90 mg PO DAILY [facility] Last Admin: 05/14/22 10:21 Dose: 90 mg Vitamin D (Cholecalciferol (Vitamin D3) 1,000 Unit Tablet) 6,000 unit PO DAILY [facility] Last Admin: 05/14/22 10:19 Dose: 6,000 unit Vitals/I&O/Wt Last Vital Signs Temp 98.1 F 05/15/22 04:00 Pulse 63 05/15/22 06:00 Resp 20 H 05/15/22 04:00 BP 119/59 05/15/22 04:00 Pulse Ox 100 05/15/22 04:00 O2 Del Method 05/15/22 04:00 O2 Flow Rate 2 05/15/22 04:00 05/14/22 05/15/22 05/15/22 22:59 06:59 14:59 Intake Total 660 / 1060 Output Total 200 / 3000 Balance 660 / -1740 -200 / -1940 Weight last 48 hrs Weight 117.594 kg Weight 117.7 kg Weight 120.429 kg Weight 120.882 kg Physical Exam Narrative: VSS In bed on Nc02 heent- nc/at, eomi, anicteric neck supple lungs rt dull base, otherwise clear heart irreg irreg abd soft, nt, nd, + bs ext red ankles, has some edema neuro- a,a, o x 3 access AVF and RT IJ PC Data 05/15/22 01:08 05/15/22 01:08 Micro: Microbiology 05/13/22 05:43 Blood Culture - Preliminary Blood NEGATIVE TO DATE 05/13/22 05:38 Blood Culture - Preliminary Blood NEGATIVE TO DATE A&P Assessment and plan (1) ESRD (end stage renal disease): 77 yr old female DM, HTN, a fib, h/o PE, recent MRSA PNA. PT here w/ CP and sob. she had a CTA w/ pulm htn, no PE, rt lobe pmneumonia and 6 mm right perifissural nodule 1. ESRD- HD MWF. s/p HD yesterdat -will dialyze today just to remove fluids -vanco by level -1:40 paras in July 2021- repeat paras -pt states avf does not work and asks to use PC 2 appreciate cardiology for stress test today 3. anemia- check iron studies- ferritin was 1197 on 04/19/22- will use CHANDRAKANT 4. DM control per medicine -monitor feet 5. BP controlled 6. recent PTH 202- acceptable for ESRD -check pth level seen and examined w/ rN-telehealth visit time spent 25+ minutes Plan see above Attestations Medical Necessity Statement*: sob, + trop, ESRD Time Spent in Patient Care: 16 - 35 minutes (>than 50% of time spent in cou nselling and/or direct pt care on unit) . Coding Level of Care Code Acute Code for Chg Fwd Diagnoses ESRD (end stage renal disease) N18.6
--- NOTE | 2022-05-15 07:58 | P.PN_ITS ---
Subjective Subjective: Patient was seen and examined this morning she was complaining of shoulder blade pain since yesterday, Radiating to the front of the chest, as well as, to neck and was also complaining of likely jaw pain.Denied any shortness of breath. She is also having slight epistaxis because of nasal dryness. Medications: Reviewed: Yes Medication Review Details: Generic Name Dose Route Start Last Admin Trade Name Freq PRN Reason Stop Dose Admin Acetaminophen 1,000 mg 05/13/22 22:01 05/14/22 00:55 Acetaminophen 50 0 Mg Tablet PO 1,000 mg Q6H PRN Administration Pain Albuterol/Ipratrop ium 3 ml 05/14/22 08:00 05/14/22 22:24 Ipratropium-Albu terol 3 Ml Neb INHALATION 3 ml QID.RESPIRATORY S [facility] Administration Aspirin 81 mg 05/14/22 00:45 05/14/22 10:17 Aspirin 81 Mg Ec Tablet PO 81 mg DAILY BILLIE Administration Atorvastatin Calci um 20 mg 05/14/22 21:00 05/14/22 21:20 Atorvastatin 40 Mg Tablet PO 20 mg BEDTIME@21 BILLIE Administration Bimatoprost 1 drop 05/14/22 21:00 05/14/22 23:33 Bimatoprost 0.01 % Op Soln 2.5 Ml B tl EYE-BOTH 1 drop BEDTIME BILLIE Administration Carbidopa/Levodopa 2 each 05/14/22 09:00 05/14/22 21:21 Carbidopa-Levodo pa 25-100mg Tablet PO 2 each TID BILLIE Administration Clopidogrel Bisulf ate 75 mg 05/14/22 18:00 05/14/22 17:59 Clopidogrel 75 M g Tablet PO 75 mg QPM BILLIE Administration Cyclobenzaprine HC l 5 mg 05/13/22 22:24 05/14/22 16:35 Cyclobenzaprine 10 Mg Tablet PO 5 mg Q8H PRN Administration Muscle Spasm Diphenhydramine HC l 25 mg 05/13/22 22:01 05/14/22 10:15 Diphenhydramine 25 Mg Capsule PO 25 mg BEDTIME PRN Administration Itching Epoetin Juancarlos 5,000 unit 05/14/22 07:00 05/14/22 14:31 Epoetin Juancarlos 100 0 Unit/0.05 Ml (Es rd) SUBCUT 5,000 unit DIALYSIS BILLIE Administration Furosemide 40 mg 05/14/22 09:00 05/14/22 17:59 Furosemide 40 Mg Tablet PO 40 mg BID BILLIE Administration Gabapentin 100 mg 05/14/22 09:00 05/14/22 21:21 Gabapentin 100 M g Capsule PO 100 mg TID BILLIE Administration Heparin Sodium (Po rcine) 5,000 unit 05/14/22 10:45 05/14/22 23:33 Heparin 5,000 Un it/Ml Inj 1 Ml SUBCUT 5,000 unit Q12H BILLIE Administration Hydroxyzine Pamoat e 25 mg 05/13/22 22:22 05/14/22 19:45 Hydroxyzine 25 M g Capsule PO 25 mg Q8H PRN Administration Itching Hydroxyzine Pamoat e 25 mg 05/14/22 18:00 05/14/22 17:59 Hydroxyzine 25 M g Capsule PO 25 mg QPM BILLIE Administration Insulin Glargine 20 unit 05/14/22 06:00 05/14/22 05:38 Insulin Glargine 100 Units/1 Ml SUBCUT 20 unit DAILY@06 BILLIE Administration Insulin Human Lisp ro 0 unit 05/14/22 08:00 05/14/22 17:59 Insulin Lispro 1 00 Unit/1 Ml SUBCUT 4 unit TIDWM BILLIE Administration Protocol Losartan Potassium 50 mg 05/14/22 21:00 05/14/22 21:20 Losartan 50 Mg T ablet PO 50 mg BEDTIME BILLIE Administration Metoprolol Tartrat e 100 mg 05/13/22 22:30 05/14/22 23:33 Metoprolol Tartr ate 50 Mg Tablet PO 100 mg Q12H BILLIE Administration Mirtazapine 30 mg 05/14/22 21:00 05/14/22 21:21 Mirtazapine 30 M g Tablet PO 30 mg BEDTIME@21 BILLIE Administration Multivitamins 1 each 05/14/22 18:00 05/14/22 17:59 M-Tebowfv-Riljbn n C Tablet PO 1 each QPM BILLIE Administration Oxycodone HCl 7.5 mg 05/13/22 23:00 05/14/22 19:44 Oxycodone 5 Mg I r Tab/Cap PO 7.5 mg Q6H PRN Administration Pain Pantoprazole Sodiu m 40 mg 05/13/22 22:01 05/14/22 21:26 Pantoprazole 40 Mg Sdv IVP 40 mg Q24H BILLIE Administration Ropinirole HCl 0.5 mg 05/14/22 18:00 05/14/22 17:59 Ropinirole 0.25 Mg Tablet PO 0.5 mg QPM BILLIE Administration Sertraline HCl 50 mg 05/14/22 09:00 05/14/22 10:18 Sertraline 50 Mg Tablet PO 50 mg DAILY BILLIE Administration Thyroid 90 mg 05/14/22 09:00 05/14/22 10:21 Thyroid 60 Mg Ta blet PO 90 mg DAILY BILLIE Administration Vitamin D 6,000 unit 05/14/22 09:00 05/14/22 10:19 Cholecalciferol (Vitamin D3) 1,000 Unit Tablet PO 6,000 unit DAILY BILLIE Administration Vitals/I&O/Wt Last Vital Signs Temp 97.9 F 05/15/22 07:19 Pulse 64 05/15/22 07:19 Resp 17 05/15/22 07:19 BP 129/55 05/15/22 07:19 Pulse Ox 96 05/15/22 07:19 O2 Del Method 05/15/22 07:19 O2 Flow Rate 2 05/15/22 04:00 05/14/22 05/15/22 05/15/22 22:59 06:59 14:59 Intake Total 660 / 1060 Output Total 200 / 3000 Balance 660 / -1740 -200 / -1940 Weight last 48 hrs Weight 117.594 kg Weight 117.7 kg Weight 120.429 kg Weight 120.882 kg Physical Exam Const: COMMON NORMALS: patient oriented x3 HENMT: COMMON NORMALS: normocephalic and atraumatic HEAD & SCALP: normocephalic and atraumatic Chest: COMMONS NORMALS: normal inspection of the chest and normal palpation of entire chest wall CHEST: Yes Symmetrical chest wall rise Resp: COMMON NORMALS: clear to auscultation bilaterally AUSCULTATION: clear to auscultation bilaterally Cardio: COMMON NORMALS: regular rate, regular rhythm, S1 normal heart sound present, S2 normal heart sound present, No gallops present (Cardio), No murmurs present (Cardio), No rub (Cardio) and Peripheral pulses 2+ throughout RATE: regular rate RHYTHM: regular rhythm HEART SOUNDS: S1 normal heart sound present and S2 normal heart sound present PERIPHERAL PULSES: Peripheral pulses 2+ throughout GI: COMMON NORMALS: Normal to inspection, nondistended, normoactive bowel sounds present, Soft to palpation, non-tender, No hepatosplenomegaly present and no masses AUSCULTATION: Yes normoactive bowel sounds PALPATION: Yes Soft to palpation and Yes No hepatosplenomegaly present RECTAL EXAM: deferred Neuro: COMMON NORMALS: patient oriented x3 Data 05/15/22 01:08 05/15/22 01:08 Micro: Microbiology 05/13/22 05:43 Blood Culture - Preliminary Blood NEGATIVE TO DATE 05/13/22 05:38 Blood Culture - Preliminary Blood NEGATIVE TO DATE A&P Assessment and plan (1) Chest pain: Associated with myocardial injury with elevated troponin CTA chest: No pulm embolism no A/D Lower extremity Dopplers were negative for DVT Echocardiogram: Normal LV size systolic function, no R WMA, LVEF 60%, RVSP: 53, ?Grade I/IV diastolic dysfunction (abnormal relaxation filling pattern) Cardiology intended to do nuclear stress test: Continue aspirin Continue Plavix Continue metoprolol N.p.o. after midnight Cardiology consulted (2) History of pulmonary embolism: Imaging negative for pulmonary embolism Apixaban on hold, will discontinue (3) Diabetic peripheral neuropathy associated with type 2 diabetes mellitus: Continue gabapentin (4) S/P dialysis catheter insertion: (5) MRSA bacteremia: Patient was discharged on 04/19 on vancomycin with stop date of 05/03 Repeat cultures obtained 05/13 Discontinue IV vancomycin and follow cultures He has outpatient appointment with ID on 05/18, consider inpatient consultation as appropriate (6) ESRD (end stage renal disease): With AV fistula Suspected recent dysfunction per Dr. Gomez's H&P Nephrology consulted Will see how fistula performs dialysis (7) Chronic kidney disease: (8) Acute exacerbation of CHF (congestive heart failure): Associated with bilateral lower extremity swelling NT-BNP elevated in the setting of end-stage renal disease Continue Lasix twice daily Attempt volume control hopefully with dialysis Continue ARB Continue beta-savanah Strict I's and O's Daily weights (9) Bilateral lower extremity edema: (10) Hypertension: Continue ARB Continue metoprolol Continue clonidine (11) History of CVA (cerebrovascular accident): (12) Hyperlipemia: (13) Uncontrolled insulin dependent diabetes mellitus: Continue Lantus Sliding scale insulin correction Avoid hypoglycemia (14) Goals of care, counseling/discussion: (15) Pulmonary hypertension: Plan CODE STATUS: AND DVT prophylaxis on heparin SC Attestations Medical Necessity Statement*: Patient is to be in hospital for management of chest pain. Coding Level of Care Code Acute Code for Chg Fwd Exam Detailed Diagnoses Chest pain R07.9 History of pulmonary embolism Z86.711 Diabetic peripheral neuropathy associated with type 2 diabetes mellitus E11.42 S/P dialysis catheter insertion Z95.828; Z99.2 MRSA bacteremia R78.81; B95.62 ESRD (end stage renal disease) N18.6 Chronic kidney disease N18.9 Acute exacerbation of CHF (congestive heart failure) I50.9 Bilateral lower extremity edema R60.0 Hypertension I10 History of CVA (cerebrovascular accident) Z86.73 Hyperlipemia E78.5 Uncontrolled insulin dependent diabetes mellitus Goals of care, counseling/discussion Z71.89 Pulmonary hypertension I27.20
--- NOTE | 2022-05-15 08:27 | PM.PN ---
Subjective Subjective: Patient is not having any chest pain. Vitals/I&O/Wt Last Vital Signs Temp 97.9 F 05/15/22 07:19 Pulse 64 05/15/22 07:19 Resp 17 05/15/22 07:19 BP 129/55 05/15/22 07:19 Pulse Ox 96 05/15/22 07:19 O2 Del Method 05/15/22 07:19 O2 Flow Rate 2 05/15/22 04:00 05/14/22 05/15/22 05/15/22 22:59 06:59 14:59 Intake Total 660 / 1060 Output Total 200 / 3000 Balance 660 / -1740 -200 / -1940 Weight last 48 hrs Weight 259 lb 4 oz Weight 259 lb 7.745 oz Weight 265 lb 8 oz Weight 266 lb 8 oz Physical Exam Narrative: GENERAL: Patient is alert, awake and oriented x3. [] NECK: No jugular vein distension. [] HEENT: No cyanosis. No icterus. No pallor. [] HEART: Irregularly irregular LUNGS: Clear to auscultate bilaterally. [] EXTREMITIES: Lower extremities with 1+ edema bilaterally. Pulses palpable in the lower extremities, both dorsalis pedis and posterior tibial. [] Data 05/15/22 01:08 05/15/22 01:08 Micro: Microbiology 05/13/22 05:43 Blood Culture - Preliminary Blood NEGATIVE TO DATE 05/13/22 05:38 Blood Culture - Preliminary Blood NEGATIVE TO DATE A&P Assessment and plan (1) Parkinson disease: (2) History of pulmonary embolism: (3) Chest pain: (4) 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: (5) Charcot's joint of left foot: (6) Diabetic peripheral neuropathy associated with type 2 diabetes mellitus: (7) S/P dialysis catheter insertion: (8) MRSA bacteremia: (9) ESRD (end stage renal disease): (10) Iron deficiency anemia: (11) Uncontrolled insulin dependent diabetes mellitus: (12) Hyperlipemia: (13) Hypertension: (14) Elevated troponin: Plan Patient has multiple comorbidities. No current chest pain. Plan for stress test tomorrow. Based on that we will make further recommendations. Continue medical therapy. Continue holding Eliquis Thank you for involving us with care of this patient. We will continue to follow. Please call with questions Attestations Medical Necessity Statement*: Care expected to cross 2 midnights. Coding Level of Care Code Acute Code for Chg Fwd Diagnoses Parkinson disease G20 History of pulmonary embolism Z86.711 Chest pain R07.9 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 L97.422 Charcot's joint of left foot M14.672 Diabetic peripheral neuropathy associated with type 2 diabetes mellitus E11.42 S/P dialysis catheter insertion Z95.828; Z99.2 MRSA bacteremia R78.81; B95.62 ESRD (end stage renal disease) N18.6 Iron deficiency anemia D50.9 Uncontrolled insulin dependent diabetes mellitus Hyperlipemia E78.5 Hypertension I10 Elevated troponin R77.8
--- NOTE | 2022-05-15 08:49 | PC.HD ---
Isolated ultrafiltration was initiated using patient's R IJ HD catheter. Lines reversed, which has always been the way her catheter runs. Her LAVF remains bruised, tender, and appears less swollen than yesterday. Strong bruit and thrill appreciated.
[2022-05-15] MEDS: thyroid 60 mg Tablet 90 MG PO (09:05)
[2022-05-15] MEDS: carbidopa-levodopa 25-100mg Tablet 2 EACH PO ×3 (09:05→20:13)
[2022-05-15] MEDS: aspirin 81 mg EC Tablet PO (09:05)
[2022-05-15] MEDS: cholecalciferol (vitamin D3) 1,000 unit Tablet 6000 UNIT PO (09:06)
[2022-05-15] MEDS: sertraline 50 mg Tablet PO (09:06)
[2022-05-15] MEDS: insulin glargine 100 units/1 mL 20 UNIT SUBCUT (09:06)
[2022-05-15] MEDS: gabapentin 100 mg Capsule PO ×3 (09:06→20:13)
[2022-05-15] MEDS: FUROsemide 40 mg Tablet PO ×2 (09:07→18:04)
--- NOTE | 2022-05-15 10:30 | PC.CHAP ---
Pastoral Care Encounter/Spiritual Assessment Type of Contact [] Declined structural steel erector visit [] Patient/Family/Request visit [] Outpatient visit [] Follow-up visit [] Physician referral [] Code/Alert [x] Routine visit [] Staff referral [] Actively dying [] Patient sleeping [] Family support [] [] Out of room [] Palliative care [] [] Receiving care in room [] Pre-surgical visit [] Trauma [] Long length of stay [] ICU visit [] Other: Relational/Emotional Strength [x] Patient feels connected with others/family/visitors/staff [] Distress [] Loneliness/isolation [] Abandonment Spirituality of Patient [x] Person of Eve [] Attends Nondenominational of their Eve [x] Believes in Prayer [] Reads Bible or Taoism materials [] There are Spiritual issues to be addressed Circulation Analyst Interventions [x] Prayer [x] Active listening [x] Non-anxious presence [x] Spiritual/emotional support [] Crisis/trauma care [] Spiritual counseling [] Bereavement support [] Provided bereavement packet [] Provided Bible/devotional materials [] Provided toy/stuffed animal, coloring book to patient or family member [] Provided Communion [] Anointing/[place] [] Salvation [x] Completed spiritual assessment [] Other: Impact on Illness or Injury [] Angry [] Fearful [] Anxious [] Often cries [] Exhaustion [] Unable to work [] Unable to attend hindu [] Unable to walk/stand [] Unable to read [] Unable to drive [] Unable to eat/drink [] Unable to sleep [] Unable to be with family [] Patient intubated [] Other: Summary Time spent with patient 10 min
[2022-05-15] MEDS: heparin 5,000 unit/mL INJ 1 mL 5000 UNIT SUBCUT ×2 (11:07→21:56)
[2022-05-15] MEDS: metoprolol tartrate 50 mg Tablet 100 MG PO ×2 (11:07→21:49)
[2022-05-15 11:57] LABS: Glucose Point of Care 236 mg/dL (70-110)
[2022-05-15] MEDS: ipratropium-albuterol 3 mL Neb INHALATION ×3 (12:01→19:34)
[2022-05-15] MEDS: insulin lispro 100 unit/1 mL SUBCUT (13:45)
[2022-05-15 16:58] LABS: Glucose Point of Care 132 mg/dL (70-110)
[2022-05-15] MEDS: oxyCODONE 5 mg IR Tab/Cap 7.5 MG PO (18:02)
[2022-05-15] MEDS: hyDROXYzine 25 mg Capsule PO ×2 (18:03→21:49)
[2022-05-15] MEDS: clopidogrel 75 mg Tablet PO (18:04)
[2022-05-15] MEDS: b-complex-vitamin c Tablet 1 EACH PO (18:04)
[2022-05-15] MEDS: ropinirole 0.25 mg Tablet 0.5 MG PO (18:04)
--- NOTE | 2022-05-15 18:45 | ECG_ITS ---
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 Interpretive Statements NAME OF STUDY: LEXISCAN SESTAMIBI STRESS TEST INDICATION: [Chest Pain; NONSTEMI] Procedure: At the baseline, the blood pressure was 99/40 mmHg with a heart rate of 69 bpm. The electrocardiogram showed normal sinus rhythm, normal axis with normal ST and T's. The Lexiscan was infused over a period of 20 seconds. A total of 0.4 mg of Lexiscan was infused. The stress phase was continued for a total of 5 minutes. Heart rate was at the end of stress phase was 77 bpm and a blood pressure of 156/59 mmHg. The EKG at the peak infusion revealed normal sinus rhythm with no significant ST-T wave changes. Sestamibi was injected 20 seconds after the Lexiscan infusion. Blood pressure at the end of recovery phase was 151/52 mmHg with a heart rate of 77 bpm. Conclusion: 1. Normal EKG response to Lexiscan infusion 2. No Lexiscan induced chest pain or cardiac arrhythmia. 3. Normal blood pressure and heart rate response. 4. Sestamibi/sestamibi perfusion scan pending; see separate report. Electronically Signed On 05-28-2022 19:57:02 MACHINE SKIVER by Gabino Feng M.D. [id number]
[2022-05-15] MEDS: atorvastatin 40 mg Tablet 20 MG PO (20:13)
[2022-05-15] MEDS: diphenhydrAMINE 25 mg Capsule PO (20:14)
[2022-05-15] MEDS: losartan 50 mg Tablet PO (20:14)
[2022-05-15] MEDS: mirtazapine 30 mg Tablet PO (20:14)
[2022-05-15] MEDS: cyclobenzaprine 10 mg Tablet 5 MG PO (21:48)
[2022-05-15] MEDS: acetaminophen 500 mg Tablet 1000 MG PO (21:48)
[2022-05-15] MEDS: pantoprazole 40 mg SDV IVP (21:49)
[2022-05-16] VITALS (15 sets, daily range): BP systolic 94–184; BP diastolic 9–79; PULSE 61–99; RESP 15–22; TEMP 36.4–36.9; O2SAT 93–99
[2022-05-16 05:58] LABS: Basophils # 0.1 10^3/uL (0.0-0.1); Basophils % 0.5 %; Eosinophils # 0.2 10^3/uL (0.0-0.8); Eosinophils % 2.1 %; Hematocrit 28.2 % (37.0-47.0); Hemoglobin 8.2 g/dL (11.5-15.3); Lymphocytes # 1.7 10^3/uL (0.8-4.8); Lymphocytes % 15.2 %; Mean Corpuscular HGB Conc 29.1 g/dL (30.0-36.0); Mean Corpuscular Hemoglobin 30.1 pg (28.0-34.0); Mean Corpuscular Volume 103.7 fl (81-99); Mean Platelet Volume 9.9 fL (7.4-10.4); Monocytes # 0.7 10^3/uL (0.2-0.9); Monocytes % 6.4 %; Neutrophils # 8.25 10^3/uL (1.8-7.7); Neutrophils % 74.9 %; Nucleated Red Blood Cells % 0 %; Platelet Count 257 10^3/cmm (130-400); Red Blood Count 2.72 10^6/uL (4.1-5.3); Red Cell Distribution Width 16.9 % (12.1-15.1)
[2022-05-16 05:59] LABS: Glucose Point of Care 137 mg/dL (70-110)
--- NOTE | 2022-05-16 06:13 | PC.NURSE ---
Spoke with regarding patient going for stress test, is NPO and due for 20units of lantus. said hold for right now while patient is NPO.
[2022-05-16 06:25] LABS: Alanine Aminotransferase < 5 U/L (0-33); Albumin Level 3.6 g/dL (3.5-5.2); Alkaline Phosphatase 94 U/L (35-105); Anion Gap 20.4 (5-19); Aspartate Amino Transferase 13 U/L (0-32); Blood Urea Nitrogen 41 mg/dL (8-23); Calcium 8.5 mg/dL (8.5-10.5); Carbon Dioxide 25 mmol/L (22-29); Chloride 98 mmol/L (98-107); Globulin 3.2 g/dL (1.3-4.6); Glucose 128 mg/dL (65-115); Magnesium 1.9 mg/dL (1.7-2.3); Osmolality Calculated 300 mOsm/kg (285-295); Phosphorus 6.4 mg/dL (2.5-4.5); Potassium 4.4 mmol/L (3.5-5.1); Sodium 139 mmol/L (136-145); Total Bilirubin 0.5 mg/dL (0.15-1.2); Total Protein 6.8 g/dL (6.6-8.7)
--- NOTE | 2022-05-16 07:31 | P.PN_ITS ---
Subjective Subjective: dec edema. breathing has improved. no n/v/f/c/egan/d. for stress test today Medications: Reviewed: Yes Medication Review Details: Current Medications Acetaminophen (Acetaminophen 500 Mg Tablet) 1,000 mg PO Q6H PRN PRN Reason: Pain Last Admin: 05/15/22 21:48 Dose: 1,000 mg Albuterol/Ipratropium (Ipratropium-Albuterol 3 Ml Neb) 3 ml INHALATION Q6H PRN PRN Reason: Cough Albuterol/Ipratropium (Ipratropium-Albuterol 3 Ml Neb) 3 ml INHALATION QID.RESPIRATORY [facility] Last Admin: 05/15/22 19:34 Dose: 3 ml Aspirin (Aspirin 81 Mg Ec Tablet) 81 mg PO DAILY [facility] Last Admin: 05/15/22 09:05 Dose: 81 mg Atorvastatin Calcium (Atorvastatin 40 Mg Tablet) 20 mg PO BEDTIME@21 [facility] Last Admin: 05/15/22 20:13 Dose: 20 mg Benzonatate (Benzonatate 100 Mg Capsule) 100 mg PO Q8H PRN PRN Reason: Cough Bimatoprost (Bimatoprost 0.01% Op Soln 2.5 Ml Btl) 1 drop EYE-BOTH BEDTIME [facility] Last Admin: 05/15/22 20:14 Dose: 1 drop Carbidopa/Levodopa (Carbidopa-Levodopa 25-100mg Tablet) 2 each PO TID [facility] Last Admin: 05/15/22 20:13 Dose: 2 each Clonidine HCl (Clonidine 0.1 Mg Tablet) 0.3 mg PO Q8H PRN PRN Reason: systolic bp >160 Clopidogrel Bisulfate (Clopidogrel 75 Mg Tablet) 75 mg PO QPM [facility] Last Admin: 05/15/22 18:04 Dose: 75 mg Cyclobenzaprine HCl (Cyclobenzaprine 10 Mg Tablet) 5 mg PO Q8H PRN PRN Reason: Muscle Spasm Last Admin: 05/15/22 21:48 Dose: 5 mg Dextrose (Dextrose 50% Syringe 50 Ml) 25 ml IVP ONCE PRN; Protocol PRN Reason: hypoglycemia protocol Dextrose (Dextrose 50% Syringe 50 Ml) 50 ml IVP PRN PRN; Protocol PRN Reason: hypoglycemia protocol Diphenhydramine HCl (Diphenhydramine 25 Mg Capsule) 25 mg PO BEDTIME PRN PRN Reason: Itching Last Admin: 05/15/22 20:14 Dose: 25 mg Furosemide (Furosemide 40 Mg Tablet) 40 mg PO BID [facility] Last Admin: 05/15/22 18:04 Dose: 40 mg Gabapentin (Gabapentin 100 Mg Capsule) 100 mg PO TID [facility] Last Admin: 05/15/22 20:13 Dose: 100 mg Glucagon (Glucagon 1 Mg/Ml Inj 1 Ml) 1 mg IM ONCE PRN; Protocol PRN Reason: Adult Acute Hypoglycemia Prot. Heparin Sodium (Porcine) (Heparin 5,000 Unit/Ml Inj 1 Ml) 5,000 unit SUBCUT Q12H [facility] Last Admin: 05/15/22 21:56 Dose: 5,000 unit Hydroxyzine Pamoate (Hydroxyzine 25 Mg Capsule) 25 mg PO Q8H PRN PRN Reason: Itching Last Admin: 05/15/22 21:49 Dose: 25 mg Hydroxyzine Pamoate (Hydroxyzine 25 Mg Capsule) 25 mg PO QPM [facility] Last Admin: 05/15/22 18:03 Dose: 25 mg Dextrose (D5w) 500 mls @ 100 mls/hr IV ONCE PRN; Protocol PRN Reason: Adult Acute Hypoglycemia Prot Insulin Glargine (Insulin Glargine 100 Units/1 Ml) 20 unit SUBCUT DAILY@06 [facility] Last Admin: 05/15/22 09:06 Dose: 20 unit Insulin Human Lispro (Insulin Lispro 100 Unit/1 Ml) 0 unit SUBCUT TIDWM [facility]; Protocol Last Admin: 05/15/22 17:44 Dose: Not Given Losartan Potassium (Losartan 50 Mg Tablet) 50 mg PO BEDTIME [facility] Last Admin: 05/15/22 20:14 Dose: 50 mg Metoprolol Tartrate (Metoprolol Tartrate 50 Mg Tablet) 100 mg PO Q12H [facility] Last Admin: 05/15/22 21:49 Dose: 100 mg Mirtazapine (Mirtazapine 30 Mg Tablet) 30 mg PO BEDTIME@21 [facility] Last Admin: 05/15/22 20:14 Dose: 30 mg Multivitamins (Y-Kazvzqw-Aezfnit C Tablet) 1 each PO QPM [facility] Last Admin: 05/15/22 18:04 Dose: 1 each Non-Formulary Medication (Solifenacin) 5 mg PO QAM [facility] Ondansetron HCl (Ondansetron 2 Mg/Ml Sdv 2 Ml) 4 mg IVP Q8H PRN PRN Reason: vomiting, or N/V if npo Ondansetron HCl (Ondansetron 2 Mg/Ml Sdv 2 Ml) 4 mg IVP Q2M PRN PRN Reason: NAUSEA Oxycodone HCl (Oxycodone 5 Mg Ir Tab/Cap) 7.5 mg PO Q6H PRN PRN Reason: Pain Last Admin: 05/15/22 18:02 Dose: 7.5 mg Pantoprazole Sodium (Pantoprazole 40 Mg Sdv) 40 mg IVP Q24H [facility] Last Admin: 05/15/22 21:49 Dose: 40 mg Regadenoson (Regadenoson 0.4 Mg/5 Ml Syringe) 0.4 mg IVP ONCE PRN PRN Reason: Lexiscan Stress Test Ropinirole HCl (Ropinirole 0.25 Mg Tablet) 0.5 mg PO QPM [facility] Last Admin: 05/15/22 18:04 Dose: 0.5 mg Sertraline HCl (Sertraline 50 Mg Tablet) 50 mg PO DAILY [facility] Last Admin: 05/15/22 09:06 Dose: 50 mg Thyroid (Thyroid 60 Mg Tablet) 90 mg PO DAILY [facility] Last Admin: 05/15/22 09:05 Dose: 90 mg Vitamin D (Cholecalciferol (Vitamin D3) 1,000 Unit Tablet) 6,000 unit PO DAILY [facility] Last Admin: 05/15/22 09:06 Dose: 6,000 unit Vitals/I&O/Wt Last Vital Signs Temp 98.5 F 05/16/22 04:09 Pulse 71 05/16/22 04:09 Resp 15 05/16/22 04:09 BP 184/65 05/16/22 04:09 Pulse Ox 93 05/16/22 04:09 O2 Del Method 05/15/22 19:40 O2 Flow Rate 2 05/15/22 04:00 05/15/22 05/16/22 05/16/22 22:59 06:59 14:59 Intake Total 360 / 1260 480 / 1740 Output Total 200 / 2500 Balance 160 / -1240 480 / -760 Weight last 48 hrs Weight 116.6 kg Weight 117.594 kg Weight 117.7 kg Physical Exam Narrative: VSS In bed, N [place], comfortable heent- nc/at, eomi, anicteric neck supple lungs -good air movement b/l heart irreg irreg abd soft, nt, nd, + bs ext red ankles, has decreased edema neuro- a,a, o x 3 access AVF and RT IJ PC Data 05/16/22 04:45 05/16/22 04:45 Micro: Microbiology 05/13/22 05:43 Blood Culture - Preliminary Blood NEGATIVE TO DATE 05/13/22 05:38 Blood Culture - Preliminary Blood NEGATIVE TO DATE A&P Assessment and plan (1) ESRD (end stage renal disease): 77 yr old female DM, HTN, a fib, h/o PE, recent MRSA PNA. PT here w/ CP and sob. she had a CTA w/ pulm htn, no PE, rt lobe pmneumonia and 6 mm right perifissural nodule 1. ESRD- HD MWF. s/p HD last 2 days -will dialyze again tomorrow -vanco by level -1:40 paras in July 2021- repeat paras -pt states avf does not work and asks to use PC 2 appreciate cardiology for stress test today 3. anemia- iron studies- ferritin was 1197 on 04/19/22- will use CHANDRAKANT 4. DM control per medicine -monitor feet 5. BP -elevated. remove more fluids on dialysis in am 6. recent PTH 202- acceptable for ESRD -check pth level seen and examined w/ rN-telehealth visit time spent 30 minutes Plan see above Attestations Medical Necessity Statement*: cp, htn, esrd Time Spent in Patient Care: 16 - 35 minutes (>than 50% of time spent in counselling and/or direct pt care on unit) . Coding Level of Care Code Acute Code for Chg Fwd Diagnoses ESRD (end stage renal disease) N18.6
[2022-05-16] MEDS: regadenoson 0.4 Mg/5 ml Syringe IVP (08:14)
--- NOTE | 2022-05-16 09:22 | P.PN_ITS ---
Subjective Subjective: Patient had stress test and after Lexiscan, she started noticing jaw pain at significant bilateral lower shoulder blade pain. We decided to perform coronary angiogram. Patient underwent coronary angiogram today that showed severe ostial RCA stenosis that underwent successful revascularization wi th CAYETANO x1. No chest pain at this time. Vitals/I&O/Wt Last Vital Signs Temp 98.5 F 05/16/22 04:09 Pulse 78 05/16/22 08:23 Resp 15 05/16/22 04:09 BP 151/54 05/16/22 08:23 Pulse Ox 93 05/16/22 04:09 O2 Del Method 05/15/22 19:40 O2 Flow Rate 2 05/15/22 04:00 05/15/22 05/16/22 05/16/22 22:59 06:59 14:59 Intake Total 360 / 1260 480 / 1740 240 / 240 Output Total 200 / 2500 Balance 160 / -1240 480 / -760 240 / 240 Weight last 48 hrs Weight 261 lb 7 oz Weight 257 lb 0.944 oz Weight 259 lb 4 oz Weight 259 lb 7.745 oz Physical Exam Narrative: GENERAL: Patient is alert, awake and oriented x3. [] NECK: No jugular vein distension. [] HEENT: No cyanosis. No icterus. No pallor. [] HEART: Irregularly irregular LUNGS: Clear to auscultate bilaterally. [] EXTREMITIES: Lower extremities with 1+ edema bilaterally. Pulses palpable in the lower extremities, both dorsalis pedis and posterior tibial. [] Data 05/16/22 04:45 05/16/22 04:45 Micro: Microbiology 05/13/22 05:43 Blood Culture - Preliminary Blood NEGATIVE TO DATE 05/13/22 05:38 Blood Culture - Preliminary Blood NEGATIVE TO DATE A&P Assessment and plan (1) CAD (coronary artery disease): (2) Parkinson disease: (3) History of pulmonary embolism: (4) Chest pain: (5) 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: (6) Charcot's joint of left foot: (7) Diabetic peripheral neuropathy associated with type 2 diabetes mellitus: (8) S/P dialysis catheter insertion: (9) ESRD (end stage renal disease): (10) Iron deficiency anemia: (11) Uncontrolled insulin dependent diabetes mellitus: (12) Hyperlipemia: (13) Hypertension: (14) Elevated troponin: Plan With Lexiscan injection, patient started having severe bilateral shoulder and jaw pain. Coronary angiogram demonstrated severe ostial RCA stenosis that underwent successful revascularization with CAYETANO x1. Continue aspirin and Plavix for at least 6 months 1 year. Continue statin therapy She will need dialysis tomorrow. Thank you for involving us with care of this patient. We will continue to follow. Please call with questions Attestations Medical Necessity Statement*: Care expected to cross 2 midnights. Coding Level of Care Code Acute Code for g Fwd Diagnoses CAD (coronary artery disease) I25.10 Parkinson disease G20 History of pulmonary embolism Z86.711 Chest pain R07.9 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 L97.422 Charcot's joint of left foot M14.672 Diabetic peripheral neuropathy associated with type 2 diabetes mellitus E11.42 S/P dialysis catheter insertion Z95.828; Z99.2 ESRD (end stage renal disease) N18.6 Iron deficiency anemia D50.9 Uncontrolled insulin dependent diabetes mellitus Hyperlipemia E78.5 Hypertension I10 Elevated troponin R77.8
--- NOTE | 2022-05-16 10:29 | XACV_ITS ---
Exam Room: [facility] Ht: 170 cm Wt: 118 kg BSA: 2.42 m2 Gender: Female : 1945 Any Known Allergies: Morphine Exam Priority: Routine Procedure(s): Procedure Description: Diagnostic procedure Procedure Description: PCI procedure Procedure Description: Left Heart Catheterization Procedure Description: Drug Eluting Coronary Stent Procedure Description: PTCA Procedure Description: Miscellaneous Procedure Description: ACT Procedure Description: Coronary Angiography Diagnostic Cath Status: Urgent Diagnostic Findings * INDICATION: Patient had presented with typical chest pain symptoms and troponins did trend up significantly. However given her end-stage renal disease and multiple comorbidities a stress test was ordered. Stress test shows prior infarct in the left circumflex artery and LAD territory. With regadenoson injection, patient developed severe discomfort between shoulder blades and the jaw. She says it is worsening and persistent significant time after the injection. Given her presentation with chest pain, troponin elevation and worsening chest pain symptoms, we will proceed with coronary angiogram with possible percutaneous coronary intervention. Risks and benefits of the procedure have been discussed in detail. * Circumflex has no significant disease. * Left Anterior Descending has diffuse luminal irregularities. * On engagement of RCA with Tig catheter, patient had severe dampening of pressures with ST elevation and chest pain. Ostial Right Coronary Artery: obstructive 70-80% stenosis, GERARD: 3 flow. * Left Main has no disease. * Coronary angiography shows right dominance. PCI Status: Urgent PCI Indication: NSTE - ACS Interventional Findings * PROCEDURE DETAIL: We engaged the RCA with JR4 guide catheter with sideholes. IV heparin was administered to maintain ACT above 250S. 0.014 run-through guidewire was used to cross the stenosis and was put in distal vessel. We predilated stenosis with 3.0 x 12 mm senicompliant balloon. This was followed with placement of 3.5 x 15 mm resolute Bruce drug-eluting stent. We then postdilated the stent with 3.75 x 8 mm NC balloon. With every vessel engagement, balloon inflation/stent expansion, patient had ST elevations and chest pain. At this time final angiogram was performed that showed excellent stent expansion, no residual stenosis and GERARD-3 flow. Patient's chest pain resolved.. * Proximal Right Coronary Artery: 70% stenosis treated with a AB TREK 3.00X12 RX BALLOON, DAIJA Mishra BRUCE 3.5X15 CAYETANO, and DAIJA MOLINA EUPHORA RX 3.30U77SO BALLOON. 0% residual stenosis, GERARD: 3 flow. Conclusions 1. Severe ostial RCA stenosis s/p successful revascularization with DESX 1. 2. Proximal Right Coronary Artery was treated with a Balloon, Drug Eluting Stent, and Balloon. Recommendations * Transfer back to [facility]. * Dual antiplatelet therapy with aspirin and Plavix for atleast 1 year. * High intensity statin therapy. * Outpatient cardiology follow up in 4 weeks. Interventional RX Recommendation: PCI w/o planned CABG Diagnostic RX Recommendation: PCI w/o planned CABG Anticoagulation: Heparin Pressures Phase:Rest AO : 148 / 52 ( 84 ) @ 11:03:00 AM 98 / 52 ( 73 ) @ 11:04:00 AM 33 / 24 ( 27 ) @ 11:07:00 AM 127 / 71 ( 99 ) @ 11:07:00 AM 175 / 83 ( 115 ) @ 11:11:00 AM 170 / 96 ( 132 ) @ 11:19:00 AM 184 / 108 ( 145 ) @ 11:25:00 AM 192 / 68 ( 118 ) @ 11:30:00 AM 191 / 56 ( 113 ) @ 11:30:00 AM 135 / 83 ( 108 ) @ 11:36:00 AM 193 / 81 ( 127 ) @ 11:38:00 AM LV : 196 / 29 @ 11:30:00 AM 194 / 5 / 26 @ 11:30:00 AM Valves Phase:DefaultPhase AV : 1.0 @ 11:47:18 AM AV Mean Gradient: 0.0 @ 11:47:18 AM 0.0 @ 11:47:19 AM Clinical Evaluation EBL: 5mL-10mL Procedural Details Procedure Consent Obtained. Admit Source: In Patient. Pre-Procedure Time Out. Identified patient by full name and date of as verbalized by the patient/guarantor. Does the consent match the physician's order: Yes. Accurate & Complete Informed Consent: Yes. Inpatient/Outpatient History & Physical on Chart: Yes. If H&P is completed, is and addenduem needed: No; If yes, is the addendum complete: N/A. Visualize and Verify Site with Patient/Guarantor: N/A. Relevant Radiology Images available: N/A. The risks, benefits, and alternatives of sedation and/or procedure were discussed by physician. The patient agrees to continue. Procedure started. [facility] Clinical Fraility Score: 4: Vulnerable. Incoming Freight Clerk Indications: ACS > 24 hours. Chest Pain Symptom Assessment: Atypical Angina. Correct patient, site and procedure confirmed by cath team. Current diagnosis: NSTEMI. PERRLA. Strong, equal hand outsole handler bilaterally. Lungs clear x 5 lobes. IV Site on Arrival: 20 gauge in the right anticubital. IV Fluids: 0.9% NaCl at KVO. 0 mL infused prior to blood and plasma laboratory assistant. Oxygen started at 2liters/min via nasal canula. right groin was prepped with chloroprep then draped in the usual sterile fashion. right radial was prepped with chloroprep then draped in the usual sterile fashion. Baseline sample Acquired. HR: 87 BPM. Physician arrived. Current Diagnosis : NSTEMI. Physician scrubbed in. Immediate Pre-Procedure Time Out. Correct Patient: Yes; Correct Procedure: Yes; Correct Site: Yes; Correct Patient Position: Yes; Correct Supplies: Yes; Dried Flammable Prep: Yes; Blood Products Available: N/A;. Lidocaine 1% infiltrated to the right radial. Arterial access obtained. A 5 kuwaiti TIG catheter in over wire. Multiple views taken of left coronary artery. Catheter redirected to the RCA. Multiple views taken of right coronary artery. Catheter removed over the exchange wire. 6 ku[place]i JR 4 SH guide catheter was inserted over the wire. ACT drawn. Results 174 seconds. Therapeutic limits - pre-heparin administration 90-150 seconds and monitoring heparin during a vascular procedure >250 seconds. Runthrough guidewire was advanced through the guide catheter to lesion in the prox RCA. Inflation number : 1 A AB TREK 3.00X12 RX BALLOON was prepped and advanced across the Prox RCA , then inflated to 8 SHELBY for 0:20 seconds. Inflation number: 2 The AB TREK 3.00X12 RX BALLOON was reinflated across the Prox RCA, to 8 SHELBY for 0:18 seconds. Balloon out. Inflation Number : 3 A DAIJA Mishra BRUCE 3.5X15 CAYETANO -Lot Number# _[id number] EXP: 12/08/2024 was prepped and advanced across the Prox RCA. The stent was deployed at 12 SHELBY for 0:26 seconds. Stent balloon out over wire. Results checked. Wire out. Guide catheter out. 6 kuwaiti JR 4 guide catheter was inserted over the wire. EDP Sample taken: LV 196/11,29; HR: 92 BPM; SpO2: 94%. Pullback taken: LV 194/5,26; AO 192/68(118); Mean: 0mmHg, Peak to Peak: 1mmHg, SEP: 19sec/min; HR: 92 BPM; SpO2: 95%. Results checked. Runthrough guidewire was advanced through the guide catheter to lesion in the prox RCA. Inflation number : 4 A MDT NC EUPHORA RX 3.35Z45KA BALLOON was prepped and advanced across the Prox RCA , then inflated to 12 SHELBY for 0:12 seconds. Inflation number: 5 The MDT NC EUPHORA RX 3.24W97YY BALLOON was reinflated across the Prox RCA, to 10 SHELBY for 0:14 seconds. Results checked. Balloon out. Physician review of cine films. ACT drawn. Results 327 seconds. Therapeutic limits - pre-heparin administration 90-150 seconds and monitoring heparin during a vascular procedure >250 seconds. Wire out. Guide catheter out. A TR Band was successful obtaining hemostatsis at the Right Radial artery insertion site. Post Procedure: Pulses reassessed and unchanged. PERRLA. Strong, equal hand outsole handler bilaterally. No VTE prophylaxis required. Medication's Wasted: Lidocaine 1% = 3 mL. Medication's Wasted: Nitro = 49.8 mg. Medication's Wasted: Heparin = 4000 units. Medication's Wasted: Other = Hydralazine 10mg Fentanyl 50 mg. Total IV fluids: 32 mL. Vital chart was stopped. Post-op diagnosis: Severe Ostail RCA stenosis. Complications: None. Estimated blood loss: 5mL-10mL. Responsiveness - Normal response to verbal stimuli; alert and oriented, PERRLA. Airway - Unaffected, no intervention required; spontaneous ventilation. Circulation: W/N/L, pulses unchanged. Nausea/Vomiting: No. Procedure completed. Patient transferred by bed to 1st floor. Access Site Site: Right Radial artery Sheath Size: 6 Fr Hemostasis Method: TR Band Hemostasis Success: Successful Procedure Medications Start: 10:54 AM Stop: 10:54 AM Medication: Versed 1 mg and Fentanyl 25 mcg Amount: 1 Route: I.V. Start: 10:54 AM Stop: 10:54 AM Medication: Versed 1 mg and Fentanyl 25 mcg Amount: 1 Route: I.V. Start: 10:57 AM Stop: 10:57 AM Medication: Versed Amount: 1 mg Route: I.V. Start: 11:00 AM Stop: 11:00 AM Medication: Nitrogylcerin Amount: 200 mcg Route: I.A. Start: 11:01 AM Stop: 11:01 AM Medication: Heparin Amount: 5000 units Route: I.V. Start: 11:09 AM Stop: 11: AM Medication: Versed Amount: 1 mg Route: I.V. Start: 11:11 AM Stop: : AM Medication: Heparin Amount: 5000 units Route: I.V. Start: 11: AM Stop: 11: AM Medication: Fentanyl Amount: 25 mcg Route: I.V. Start: 11:21 AM Stop: : AM Medication: Versed Amount: 1 mg Route: I.V. Start: 11:26 AM Stop: 11: AM Medication: Heparin Amount: 2000 units Route: I.V. Start: 11:36 AM Stop: 11:36 AM Medication: Fentanyl Amount: 25 mcg Route: I.V. Start: 11:40 AM Stop: 11:40 AM Medication: Hydralazine Amount: 10 mg Route: I.V. Start: 11:40 AM Stop: 11:40 AM Medication: Plavix Amount: 300 mg Route: P.O. Start: 11:41 AM Stop: 11:41 AM Medication: Aspirin Amount: 325 mg Route: P.O. Start: 11:42 AM Stop: 11:42 AM Medication: Fentanyl Amount: 25 mcg Route: I.V. I, the attending physician, have reviewed and verified all procedure medications. Yes, all medications given per verbal order History/Risk Factors Hypertension: Yes Dyslipidemia: Yes Peripheral Arterial Disease (PAD): No Myocardial Infarction (ID): No Obesity: Yes Renal Disease: Yes Tobacco Use: Former Dialysis: Current Prior Interventions PCI: No CABG: No Valve Surgery: No Report Signatures Finalized by Gabino Feng MD on 05/24/2022 12:22 PM
--- NOTE | 2022-05-16 10:32 | P.HPUD_ITS ---
Surgery/Procedure H&P Update DATE OF PROCEDURE: May 16, 2022 DATE H&P PERFORMED: 05/14/22 H&P UPDATE INFORMATION: I have reviewed H&P completed within last 30 days, I have examined patient prior to procedure and Changes to prior documentation as noted here CHANGES TO PREVIOUS DOCUMENTATION: Patient had presented with typical chest pain symptoms and troponins did trend up significantly. However given her end-stage renal disease and multiple comorbidities a stress test was ordered. Stress test shows prior infarct in the left circumflex artery and LAD territory. With regadenoson injection, patient developed severe discomfort between shoulder blades and the jaw. She says it is worsening and persistent significant time after the injection. Given her presentation with chest pain, troponin elevation and worsening chest pain sy mptoms, we will proceed with coronary angiogram with possible percutaneous coronary intervention. Risks and benefits of the procedure have been discussed in detail. Her CODE STATUS is DNR. I did discuss with her for the duration of procedure and 24 hours postprocedure, we will reverse it to full code. She is in agreement. I also discussed it with her daughter and she agrees to plan as well. PREOP DIAGNOSIS: Worsening angina PRIMARY INDICATION FOR PROCEDURE: Worsening angina PLANNED PROCEDURE: Left heart cath with possible percutaneous coronary intervention PATIENT REASSESSED PRIOR TO SEDATION, WITH NO CHANGE NOTED: Yes PHYSICAL EXAM: alert, oriented x 3, clear to auscultation bilaterally and regular rate & rhythm AIRWAY EVAL/ANESTHESIA PLAN: normal airway, ASA IV, Local Anesthesia, Risks, benefits & alternatives of sedation and/or procedure discussed and Patient agrees to continue as planned ADDITIONAL INFORMATION: Moderate sedation
--- NOTE | 2022-05-16 11:44 | P.PN_ITS ---
Subjective Subjective: Patient was seen and examined this morning,Denied any chest pain today, Due for stress test today. Medications: Reviewed: Yes Medication Review Details: Generic Name Dose Route Start Last Admin Trade Name Mata PRN Reason Stop Dose Admin Acetaminophen 1,000 mg 05/13/22 22:01 05/15/22 21:48 Acetaminophen 50 0 Mg Tablet PO 1,000 mg Q6H PRN Administration Pain Albuterol/Ipratrop ium 3 ml 05/14/22 08:00 05/16/22 08:44 Ipratropium-Albu terol 3 Ml Neb INHALATION Not Given QID.RESPIRATORY S CH Aspirin 81 mg 05/14/22 00:45 05/15/22 09:05 Aspirin 81 Mg Ec Tablet PO 81 mg DAILY BILLIE Administration Atorvastatin Calci um 20 mg 05/14/22 21:00 05/15/22 20:13 Atorvastatin 40 Mg Tablet PO 20 mg BEDTIME@21 BILLIE Administration Bimatoprost 1 drop 05/14/22 21:00 05/15/22 20:14 Bimatoprost 0.01 % Op Soln 2.5 Ml B tl EYE-BOTH 1 drop BEDTIME BILLIE Administration Carbidopa/Levodopa 2 each 05/14/22 09:00 05/15/22 20:13 Carbidopa-Levodo pa 25-100mg Tablet PO 2 each TID BILLIE Administration Clopidogrel Bisulf ate 75 mg 05/14/22 18:00 05/15/22 18:04 Clopidogrel 75 M g Tablet PO 75 mg QPM BILLIE Administration Cyclobenzaprine HC l 5 mg 05/13/22 22:24 05/15/22 21:48 Cyclobenzaprine 10 Mg Tablet PO 5 mg Q8H PRN Administration Muscle Spasm Diphenhydramine HC l 25 mg 05/13/22 22:01 05/15/22 20:14 Diphenhydramine 25 Mg Capsule PO 25 mg BEDTIME PRN Administration Itching Furosemide 40 mg 05/14/22 09:00 05/15/22 18:04 Furosemide 40 Mg Tablet PO 40 mg BID BILLIE Administration Gabapentin 100 mg 05/14/22 09:00 05/15/22 20:13 Gabapentin 100 M g Capsule PO 100 mg TID BILLIE Administration Heparin Sodium (Po rcine) 5,000 unit 05/14/22 10:45 05/15/22 21:56 Heparin 5,000 Un it/Ml Inj 1 Ml SUBCUT 5,000 unit Q12H BILLIE Administration Hydroxyzine Pamoat e 25 mg 05/13/22 22:22 05/15/22 21:49 Hydroxyzine 25 M g Capsule PO 25 mg Q8H PRN Administration Itching Hydroxyzine Pamoat e 25 mg 05/14/22 18:00 05/15/22 18:03 Hydroxyzine 25 M g Capsule PO 25 mg QPM BILLIE Administration Insulin Glargine 20 unit 05/14/22 06:00 05/15/22 09:06 Insulin Glargine 100 Units/1 Ml SUBCUT 20 unit DAILY@06 BILLIE Administration Insulin Human Lisp ro 0 unit 05/14/22 08:00 05/16/22 10:28 Insulin Lispro 1 00 Unit/1 Ml SUBCUT Not Given TIDWM [facility] Protocol Losartan Potassium 50 mg 05/14/22 21:00 05/15/22 20:14 Losartan 50 Mg T ablet PO 50 mg BEDTIME BILLIE Administration Metoprolol Tartrat e 100 mg 05/13/22 22:30 05/15/22 21:49 Metoprolol Tartr ate 50 Mg Tablet PO 100 mg Q12H BILLIE Administration Mirtazapine 30 mg 05/14/22 21:00 05/15/22 20:14 Mirtazapine 30 M g Tablet PO 30 mg BEDTIME@21 BILLIE Administration Multivitamins 1 each 05/14/22 18:00 05/15/22 18:04 A-Muftrlm-Uxgvib n C Tablet PO 1 each QPM BILLIE Administration Oxycodone HCl 7.5 mg 05/13/22 23:00 05/15/22 18:02 Oxycodone 5 Mg I r Tab/Cap PO 7.5 mg Q6H PRN Administration Pain Pantoprazole Sodiu m 40 mg 05/13/22 22:01 05/15/22 21:49 Pantoprazole 40 Mg Sdv IVP 40 mg Q24H BILLIE Administration Ropinirole HCl 0.5 mg 05/14/22 18:00 05/15/22 18:04 Ropinirole 0.25 Mg Tablet PO 0.5 mg QPM BILLIE Administration Sertraline HCl 50 mg 05/14/22 09:00 05/15/22 09:06 Sertraline 50 Mg Tablet PO 50 mg DAILY BILLIE Administration Thyroid 90 mg 05/14/22 09:00 05/15/22 09:05 Thyroid 60 Mg Ta blet PO 90 mg DAILY BILLIE Administration Vitamin D 6,000 unit 05/14/22 09:00 05/15/22 09:06 Cholecalciferol (Vitamin D3) 1,000 Unit Tablet PO 6,000 unit DAILY BILLIE Administration Vitals/I&O/Wt Last Vital Signs Temp 97.9 F 05/16/22 08:00 Pulse 78 05/16/22 08:23 Resp 22 H 05/16/22 08:00 BP 151/54 05/16/22 08:23 Pulse Ox 93 05/16/22 08:00 O2 Del Method 05/16/22 08:00 O2 Flow Rate 2 05/15/22 04:00 05/15/22 05/16/22 05/16/22 22:59 06:59 14:59 Intake Total 360 / 1260 480 / 1740 240 / 240 Output Total 200 / 2500 Balance 160 / -1240 480 / -760 240 / 240 Weight last 48 hrs Weight 118.586 kg Weight 116.6 kg Weight 117.594 kg Weight 117.7 kg Physical Exam Const: COMMON NORMALS: patient oriented x3 HENMT: COMMON NORMALS: normocephalic and atraumatic HEAD & SCALP: normocephalic and atraumatic Chest: COMMONS NORMALS: normal inspection of the chest and normal palpation of entire chest wall CHEST: Yes Symmetrical chest wall rise Resp: COMMON NORMALS: clear to auscultation bilaterally AUSCULTATION: clear to auscultation bilaterally Cardio: COMMON NORMALS: regular rate, regular rhythm, S1 normal heart sound present, S2 normal heart sound present, No gallops present (Cardio), No murmurs present (Cardio), No rub (Cardio) and Peripheral pulses 2+ throughout RATE: regular rate RHYTHM: regular rhythm HEART SOUNDS: S1 normal heart sound present and S2 normal heart sound present PERIPHERAL PULSES: Peripheral pulses 2+ throughout GI: COMMON NORMALS: Normal to inspection, nondistended, normoactive bowel sounds present, Soft to palpation, non-tender, No hepatosplenomegaly present and no masses AUSCULTATION: Yes normoactive bowel sounds PALPATION: Yes Soft to palpation and Yes No hepatosplenomegaly present RECTAL EXAM: deferred Neuro: COMMON NORMALS: patient oriented x3 Data 05/16/22 04:45 05/16/22 04:45 Micro: Microbiology 05/13/22 05:43 Blood Culture - Preliminary Blood NEGATIVE TO DATE 05/13/22 05:38 Blood Culture - Preliminary Blood NEGATIVE TO DATE A&P Assessment and plan (1) Chest pain: Associated with myocardial injury with elevated troponin CTA chest: No pulm embolism no A/D Lower extremity Dopplers were negative for DVT Echocardiogram: Normal LV size systolic function, no R WMA, LVEF 60%, RVSP: 53, ?Grade I/IV diastolic dysfunction (abnormal relaxation filling pattern) Cardiology intended to do nuclear stress test: Continue aspirin Continue Plavix Continue metoprolol N.p.o. after midnight Cardiology consulted (2) History of pulmonary embolism: Imaging negative for pulmonary embolism Apixaban on hold, will discontinue (3) Diabetic peripheral neuropathy associated with type 2 diabetes mellitus: Continue gabapentin (4) S/P dialysis catheter insertion: (5) MRSA bacteremia: Patient was discharged on 04/19 on vancomycin with stop date of 05/03 Repeat cultures obtained 05/13 Discontinue IV vancomycin and follow cultures He has outpatient appointment with ID on 05/18, consider inpatient consultation as appropriate (6) ESRD (end stage renal disease): With AV fistula Suspected recent dysfunction per Dr. Gomez's H&P Nephrology consulted Will see how fistula performs dialysis (7) Chronic kidney disease: (8) Acute exacerbation of CHF (congestive heart failure): Associated with bilateral lower extremity swelling NT-BNP elevated in the setting of end-stage renal disease Continue Lasix twice daily Attempt volume control hopefully with dialysis Continue ARB Continue beta-savanah Strict I's and O's Daily weights (9) Bilateral lower extremity edema: (10) Hypertension: Continue ARB Continue metoprolol Continue clonidine (11) History of CVA (cerebrovascular accident): (12) Hyperlipemia: (13) Uncontrolled insulin dependent diabetes mellitus: Continue Lantus Sliding scale insulin correction Avoid hypoglycemia (14) Goals of care, counseling/discussion: (15) Pulmonary hypertension: Plan CODE STATUS: AND DVT prophylaxis on heparin SC Attestations Medical Necessity Statement*: In hospital for management of chest pain Coding Level of Care Code Acute Code for [facility] Fwd Diagnoses Chest pain R07.9 History of pulmonary embolism Z86.711 Diabetic peripheral neuropathy associated with type 2 diabetes mellitus E11.42 S/P dialysis catheter insertion Z95.828; Z99.2 MRSA bacteremia R78.81; B95.62 ESRD (end stage renal disease) N18.6 Chronic kidney disease N18.9 Acute exacerbation of CHF (congestive heart failure) I50.9 Bilateral lower extremity edema R60.0 Hypertension I10 History of CVA (cerebrovascular accident) Z86.73 Hyperlipemia E78.5 Uncontrolled insulin dependent diabetes mellitus Goals of care, counseling/discussion Z71.89 Pulmonary hypertension I27.20
--- NOTE | 2022-05-16 12:05 | PC.NURSE ---
Pt returned from laboratory coordinator at approximately 1200. Pt has TR Band on right wrist. No hematoma swelling or excess bleeding noted. Pulses intact VS stable. Pt has no c/o pain or discomfort at the present time. Call light in reach. Will cont to monitor.
[2022-05-16] MEDS: aspirin 81 mg EC Tablet PO (12:53)
[2022-05-16] MEDS: carbidopa-levodopa 25-100mg Tablet 2 EACH PO ×3 (12:53→21:03)
[2022-05-16] MEDS: sertraline 50 mg Tablet PO (12:54)
[2022-05-16] MEDS: gabapentin 100 mg Capsule PO ×3 (12:54→21:04)
[2022-05-16] MEDS: thyroid 60 mg Tablet 90 MG PO (12:56)
[2022-05-16] MEDS: FUROsemide 40 mg Tablet PO ×2 (12:57→18:22)
[2022-05-16] MEDS: metoprolol tartrate 50 mg Tablet 100 MG PO ×2 (12:58→21:16)
[2022-05-16] MEDS: cholecalciferol (vitamin D3) 1,000 unit Tablet 6000 UNIT PO (12:58)
[2022-05-16] MEDS: heparin 5,000 unit/mL INJ 1 mL 5000 UNIT SUBCUT ×2 (12:59→21:16)
[2022-05-16] MEDS: insulin glargine 100 units/1 mL 20 UNIT SUBCUT (13:20)
[2022-05-16] MEDS: ipratropium-albuterol 3 mL Neb INHALATION ×2 (15:56→20:01)
--- NOTE | 2022-05-16 16:00 | PC.NURSE ---
Pts TR Band removed. Pt tolerated well. No hematoma swelling or excess bleeding noted. Pulses intact VS stable. Pt has no c/o pain or discomfort at the present time. Call light in reach. Will cont to monitor.
[2022-05-16] MEDS: oxyCODONE 5 mg IR Tab/Cap 7.5 MG PO (16:43)
[2022-05-16 17:26] LABS: Glucose Point of Care 212 mg/dL (70-110)
[2022-05-16] MEDS: insulin lispro 100 unit/1 mL SUBCUT (18:23)
[2022-05-16] MEDS: ropinirole 0.25 mg Tablet 0.5 MG PO (18:23)
[2022-05-16] MEDS: clopidogrel 75 mg Tablet PO (18:23)
[2022-05-16] MEDS: b-complex-vitamin c Tablet 1 EACH PO (18:23)
[2022-05-16] MEDS: hyDROXYzine 25 mg Capsule PO (18:23)
--- NOTE | 2022-05-16 18:45 | NMCV_ITS ---
NM omar perf SPECT r/s* [id number] Meghna Chaudhari Age: 77 Gender: F : 1945 Exam Date: 05/16/2022 18:45 Ordering Phys: Ganga Rodríguez MD Technologist: NAM Humphries Exam Location: [facility] Indications: CHEST PAIN STRESS TEST Please see separate stress test report in [facility] for full findings IMAGE PROTOCOL Rest/Stress 1 Lexiscan Day Radiopharmaceutical Dose (mCi) Administration Site Administered by Rest: Tc-99m 10.7 IV NAM Powers Sestamibi Stress:Tc-99m 32.9 IV NAM Powers Sestamibi Rest: 16-May-2022 60 Discovery 630 Stress: 16-May-2022 30 Discovery 630 0.4mg Lexiscan. Supine position only as patient was unable to lay prone. SPECT RESULTS Technical Quality: Excellent Raw Data Analysis: Normal, Breast attenuation Image Corrections: No attenuation or motion correction applied Summed Stress Score: 4 Summed Rest Score: 5 Summed Difference Score: 0 PERFUSION FINDINGS There is medium sized, mostly fixed perfusion defect in the anterolateral and anterior wall. This is consistent with medium sized prior infarct in the left circumflex and LAD territories. No significant area of ischemia is seen. FUNCTIONAL RESULTS (calculated via Gated SPECT) Stress Image LV EF (%): 75 Stress EDV (mL):108 TID: 0.93 Stress ESV (mL):27 FUNCTIONAL FINDINGS: There is normal left ventricular systolic function. IMPRESSIONS 1. Abnormal myocardial perfusion imaging with medium sized prior infarct seen in the left circumflex artery and LAD territories. 2. LV systolic function is normal Gabino Feng MD (Electronically Signed) Final Date: 16 May 2022 10:32 S
[2022-05-16] MEDS: losartan 50 mg Tablet PO (21:04)
[2022-05-16] MEDS: diphenhydrAMINE 25 mg Capsule PO (21:04)
[2022-05-16] MEDS: pantoprazole 40 mg SDV IVP (21:12)
[2022-05-16] MEDS: atorvastatin 40 mg Tablet 20 MG PO (21:12)
[2022-05-16] MEDS: mirtazapine 30 mg Tablet PO (21:16)
[2022-05-16 22:07] LABS: Glucose Point of Care 138 mg/dL (70-110)
[2022-05-17] VITALS (9 sets, daily range): BP systolic 124–165; BP diastolic 45–87; PULSE 62–82; RESP 16–21; TEMP 36.3–36.9; O2SAT 92–96
[2022-05-17 05:35] LABS: Basophils % 0.3 %; Eosinophils # 0.2 10^3/uL (0.0-0.8); Eosinophils % 1.9 %; Hematocrit 25.1 % (37.0-47.0); Hemoglobin 7.6 g/dL (11.5-15.3); Lymphocytes # 1.4 10^3/uL (0.8-4.8); Lymphocytes % 12.2 %; Mean Corpuscular HGB Conc 30.3 g/dL (30.0-36.0); Mean Corpuscular Hemoglobin 30.8 pg (28.0-34.0); Mean Corpuscular Volume 101.6 fl (81-99); Mean Platelet Volume 9.9 fL (7.4-10.4); Monocytes # 0.8 10^3/uL (0.2-0.9); Monocytes % 6.6 %; Neutrophils # 9.09 10^3/uL (1.8-7.7); Neutrophils % 78.3 %; Nucleated Red Blood Cells % 0 %; Platelet Count 261 10^3/cmm (130-400); Red Blood Count 2.47 10^6/uL (4.1-5.3); White Blood Count 11.6 10^3/uL (4.0-10.0)
[2022-05-17 06:03] LABS: Alanine Aminotransferase < 5 U/L (0-33); Albumin Level 3.3 g/dL (3.5-5.2); Alkaline Phosphatase 103 U/L (35-105); Anion Gap 19.2 (5-19); Aspartate Amino Transferase 9 U/L (0-32); Blood Urea Nitrogen 50 mg/dL (8-23); Calcium 8.7 mg/dL (8.5-10.5); Carbon Dioxide 22 mmol/L (22-29); Chloride 97 mmol/L (98-107); Globulin 3.4 g/dL (1.3-4.6); Glucose 160 mg/dL (65-115); Magnesium 1.9 mg/dL (1.7-2.3); Osmolality Calculated 295 mOsm/kg (285-295); Phosphorus 6.6 mg/dL (2.5-4.5); Potassium 4.2 mmol/L (3.5-5.1); Sodium 134 mmol/L (136-145); Total Bilirubin 0.4 mg/dL (0.15-1.2); Total Protein 6.7 g/dL (6.6-8.7)
[2022-05-17] MEDS: insulin glargine 100 units/1 mL 20 UNIT SUBCUT (06:12)
[2022-05-17 06:56] LABS: Glucose Point of Care 165 mg/dL (70-110)
--- NOTE | 2022-05-17 07:04 | P.PN_ITS ---
Subjective Subjective: seen and examined. 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 still has edema. dec cp and SOB. seen on dialysis via her permacath Medications: Reviewed: Yes Medication Review Details: Current Medications Acetaminophen (Acetaminophen 500 Mg Tablet) 1,000 mg PO Q6H PRN PRN Reason: Pain Last Admin: 05/15/22 21:48 Dose: 1,000 mg Al Hydrox/Mg Hydrox/Simethicone (Eyiu-Vsp-Lzrrqqrhz-Isaac 30 Ml Udc) 30 ml PO Q15M PRN PRN Reason: INDIGESTION Albuterol/Ipratropium (Ipratropium-Albuterol 3 Ml Neb) 3 ml INHALATION Q6H PRN PRN Reason: Cough Albuterol/Ipratropium (Ipratropium-Albuterol 3 Ml Neb) 3 ml INHALATION QID.RESPIRATORY [facility] Last Admin: 05/16/22 20:01 Dose: 3 ml Aspirin (Aspirin 81 Mg Ec Tablet) 81 mg PO DAILY [facility] Last Admin: 05/16/22 12:53 Dose: 81 mg Atorvastatin Calcium (Atorvastatin 40 Mg Tablet) 20 mg PO BEDTIME@21 [facility] Last Admin: 05/16/22 21:12 Dose: 20 mg Atropine Sulfate (Atropine 1 Mg/Ml Sdv 1 Ml) 0.5 mg IVP PRN PRN PRN Reason: Symptomatic bradycardia Benzonatate (Benzonatate 100 Mg Capsule) 100 mg PO Q8H PRN PRN Reason: Cough Bimatoprost (Bimatoprost 0.01% Op Soln 2.5 Ml Btl) 1 drop EYE-BOTH BEDTIME [facility] Last Admin: 05/16/22 21:03 Dose: 1 drop Carbidopa/Levodopa (Carbidopa-Levodopa 25-100mg Tablet) 2 each PO TID [facility] Last Admin: 05/16/22 21:03 Dose: 2 each Clonidine HCl (Clonidine 0.1 Mg Tablet) 0.3 mg PO Q8H PRN PRN Reason: systolic bp >160 Clopidogrel Bisulfate (Clopidogrel 75 Mg Tablet) 75 mg PO QPM [facility] Last Admin: 05/16/22 18:23 Dose: 75 mg Cyclobenzaprine HCl (Cyclobenzaprine 10 Mg Tablet) 5 mg PO Q8H PRN PRN Reason: Muscle Spasm Last Admin: 05/15/22 21:48 Dose: 5 mg Dextrose (Dextrose 50% Syringe 50 Ml) 25 ml IVP ONCE PRN; Protocol PRN Reason: hypoglycemia protocol Dextrose (Dextrose 50% Syringe 50 Ml) 50 ml IVP PRN PRN; Protocol PRN Reason: hypoglycemia protocol Diphenhydramine HCl (Diphenhydramine 25 Mg Capsule) 25 mg PO BEDTIME PRN PRN Reason: Itching Last Admin: 05/16/22 21:04 Dose: 25 mg Furosemide (Furosemide 40 Mg Tablet) 40 mg PO BID [facility] Last Admin: 05/16/22 18:22 Dose: 40 mg Gabapentin (Gabapentin 100 Mg Capsule) 100 mg PO TID [facility] Last Admin: 05/16/22 21:04 Dose: 100 mg Glucagon (Glucagon 1 Mg/Ml Inj 1 Ml) 1 mg IM ONCE PRN; Protocol PRN Reason: Adult Acute Hypoglycemia Prot. Heparin Sodium (Porcine) (Heparin 5,000 Unit/Ml Inj 1 Ml) 5,000 unit SUBCUT Q12H [facility] Last Admin: 05/16/22 21:16 Dose: 5,000 unit Hydroxyzine Pamoate (Hydroxyzine 25 Mg Capsule) 25 mg PO Q8H PRN PRN Reason: Itching Last Admin: 05/15/22 21:49 Dose: 25 mg Hydroxyzine Pamoate (Hydroxyzine 25 Mg Capsule) 25 mg PO QPM [facility] Last Admin: 05/16/22 18:23 Dose: 25 mg Dextrose (D5w) 500 mls @ 100 mls/hr IV ONCE PRN; Protocol PRN Reason: Adult Acute Hypoglycemia Prot Insulin Glargine (Insulin Glargine 100 Units/1 Ml) 20 unit SUBCUT DAILY@06 [facility] Last Admin: 05/17/22 06:12 Dose: 20 unit Insulin Human Lispro (Insulin Lispro 100 Unit/1 Ml) 0 unit SUBCUT TIDWM [facility]; Protocol Last Admin: 05/16/22 18:23 Dose: 4 unit Losartan Potassium (Losartan 50 Mg Tablet) 50 mg PO BEDTIME [facility] Last Admin: 05/16/22 21:04 Dose: 50 mg Magnesium Hydroxide (Magnesium Hydroxide 30 Ml Udc) 30 ml PO DAILY PRN PRN Reason: CONSTIPATION Metoprolol Tartrate (Metoprolol Tartrate 50 Mg Tablet) 100 mg PO Q12H [facility] Last Admin: 05/16/22 21:16 Dose: 100 mg Mirtazapine (Mirtazapine 30 Mg Tablet) 30 mg PO BEDTIME@21 [facility] Last Admin: 05/16/22 21:16 Dose: 30 mg Multivitamins (F-Czserbs-Caoddse C Tablet) 1 each PO QPM [facility] Last Admin: 05/16/22 18:23 Dose: 1 each Naloxone HCl (Naloxone 0.4 Mg/Ml Sdv) 0.1 mg IVP Q2M PRN PRN Reason: RESPIRATORY RATE < 8/MIN Nitroglycerin (Nitroglycerin 0.4 Mg Sublingual Tablet) 0.4 mg SUBLINGUAL Q5M PRN PRN Reason: CHEST PAIN Non-Formulary Medication (Solifenacin) 5 mg PO QAM [facility] Ondansetron HCl (Ondansetron 2 Mg/Ml Sdv 2 Ml) 4 mg IVP Q8H PRN PRN Reason: vomiting, or N/V if npo Ondansetron HCl (Ondansetron 2 Mg/Ml Sdv 2 Ml) 4 mg IVP Q2M PRN PRN Reason: NAUSEA Oxycodone HCl (Oxycodone 5 Mg Ir Tab/Cap) 7.5 mg PO Q6H PRN PRN Reason: Pain Last Admin: 05/16/22 16:43 Dose: 7.5 mg Pantoprazole Sodium (Pantoprazole 40 Mg Sdv) 40 mg IVP Q24H [facility] Last Admin: 05/16/22 21:12 Dose: 40 mg Ropinirole HCl (Ropinirole 0.25 Mg Tablet) 0.5 mg PO QPM [facility] Last Admin: 05/16/22 18:23 Dose: 0.5 mg Sertraline HCl (Sertraline 50 Mg Tablet) 50 mg PO DAILY [facility] Last Admin: 05/16/22 12:54 Dose: 50 mg Thyroid (Thyroid 60 Mg Tablet) 90 mg PO DAILY [facility] Last Admin: 05/16/22 12:56 Dose: 90 mg Vitamin D (Cholecalciferol (Vitamin D3) 1,000 Unit Tablet) 6,000 unit PO DAILY [facility] Last Admin: 05/16/22 12:58 Dose: 6,000 unit Vitals/I&O/Wt Last Vital Signs Temp 98.2 F 05/17/22 00:00 Pulse 64 05/17/22 03:31 Resp 16 05/17/22 03:31 BP 124/45 05/17/22 03:31 Pulse Ox 95 05/17/22 03:31 O2 Del Method 05/17/22 00:00 O2 Flow Rate 2 05/16/22 15:56 05/16/22 05/17/22 05/17/22 22:59 06:59 14:59 Intake Total 660 / 1380 Output Total 200 / 200 Balance 460 / 1180 Weight last 48 hrs Weight 118.586 kg Weight 116.6 kg Physical Exam Narrative: VSS In bed, NARD, comfortable heent- nc/at, eomi, anicteric neck supple lungs -good air movement b/l heart -reg abd soft, nt, nd, + bs ext red ankles, has 1+ b/l leg edema neuro- a,a, o x 3 access AVF and RT IJ PC Data 05/17/22 04:51 05/17/22 04:51 A&P Assessment and plan (1) ESRD (end stage renal disease): 77 yr old female DM, HTN, a fib, h/o PE, recent MRSA PNA. PT here w/ CP and sob. she had a CTA w/ pulm htn, no PE, rt lobe pmneumonia and 6 mm right perifissural nodule 1. ESRD- HD MWF. s/p HD last 2 days - HD now- 4 hrs, remove 3 l as tolerated, 3k bath via her PC -vanco by level -1:40 paras in July 2021- repeat paras -pt states avf does not work-will need a fistulagram 2 appreciate cardiology -s/p abnormal stress test and cardiac cath w/ stent on 05/16/22 3. anemia- iron studies- ferritin was 1197 on 04/19/22- will use CHANDRAKANT 4. DM control per medicine 5. BP now low- dec meds- on cozaar and metoprolol for CHF/ CAD 6. recent PTH 202- acceptable for ESRD -check pth level seen and examined w/ rN-telehealth visit time spent 30 minutes Plan see above Attestations Medical Necessity Statement*: CAD, SOB, ESRD Time Spent in Patient Care: 16 - 35 minutes (>than 50% of time spent in counselling and/or direct pt care on unit) . Coding Level of Care Code Acute Code for Chg Fwd Diagnoses ESRD (end stage renal disease) N18.6
[2022-05-17] MEDS: ipratropium-albuterol 3 mL Neb INHALATION ×2 (08:10→11:47)
--- NOTE | 2022-05-17 08:10 | PM.PN ---
Subjective Subjective: Patient doing well. No complaints of chest pain. Vitals/I&O/Wt Last Vital Signs Temp 97.3 F L 05/17/22 07:05 Pulse 64 05/17/22 07:05 Resp 16 05/17/22 07:05 BP 142/66 05/17/22 07:05 Pulse Ox 95 05/17/22 03:31 O2 Del Method 05/17/22 00:00 O2 Flow Rate 2 05/16/22 15:56 05/16/22 05/17/22 05/17/22 22:59 06:59 14:59 Intake Total 660 / 1380 140 / 1520 Output Total 200 / 200 200 / 400 Balance 460 / 1180 -60 / 1120 Weight last 48 hrs Weight 261 lb 7 oz Weight 257 lb 0.944 oz Physical Exam Narrative: GENERAL: Patient is alert, awake and oriented x3. [] NECK: No jugular vein distension. [] HEENT: No cyanosis. No icterus. No pallor. [] HEART: Irregularly irregular LUNGS: Clear to auscultate bilaterally. [] EXTREMITIES: Lower extremities with 1+ edema bilaterally. Pulses palpable in the lower extremities, both dorsalis pedis and posterior tibial. [] Data 05/17/22 04:51 05/17/22 04:51 A&P Assessment and plan (1) Iron deficiency anemia: (2) CAD (coronary artery disease): (3) Parkinson disease: (4) History of pulmonary embolism: (5) Chest pain: (6) 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: (7) Charcot's joint of left foot: (8) Diabetic peripheral neuropathy associated with type 2 diabetes mellitus: (9) S/P dialysis catheter insertion: (10) ESRD (end stage renal disease): (11) Uncontrolled insulin dependent diabetes mellitus: (12) Hyperlipemia: (13) Hypertension: (14) Elevated troponin: Plan With Lexiscan injection, patient started having severe bilateral shoulder and jaw pain. Coronary angiogram demonstrated severe ostial RCA stenosis that underwent successful revascularization with CAYETANO x1. Continue dual antiplatelet therapy with aspirin and plavix for atleast 1 year Continue statin therapy Thank you for involving us with care of this patient. Patient is stable to be discharged from cardiology standpoint. Please call with questions Attestations Medical Necessity Statement*: Care expected to cross 2 midnights. Coding Level of Care Code Acute Code for Chg Fwd Diagnoses Iron deficiency anemia D50.9 CAD (coronary artery disease) I25.10 Parkinson disease G20 History of pulmonary embolism Z86.711 Chest pain R07.9 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 L97.422 Charcot's joint of left foot M14.672 Diabetic peripheral neuropathy associated with type 2 diabetes mellitus E11.42 S/P dialysis catheter insertion Z95.828; Z99.2 ESRD (end stage renal disease) N18.6 Uncontrolled insulin dependent diabetes mellitus Hyperlipemia E78.5 Hypertension I10 Elevated troponin R77.8
[2022-05-17] MEDS: aspirin 81 mg EC Tablet PO (09:45)
[2022-05-17] MEDS: sevelamer 800 mg Tablet 1600 MG PO (09:45)
[2022-05-17] MEDS: FUROsemide 40 mg Tablet PO (09:46)
[2022-05-17] MEDS: cholecalciferol (vitamin D3) 1,000 unit Tablet 6000 UNIT PO (09:46)
[2022-05-17] MEDS: carbidopa-levodopa 25-100mg Tablet 2 EACH PO (09:46)
[2022-05-17] MEDS: metoprolol tartrate 50 mg Tablet PO (09:46)
[2022-05-17] MEDS: gabapentin 100 mg Capsule PO (09:46)
[2022-05-17] MEDS: sertraline 50 mg Tablet PO (09:47)
[2022-05-17] MEDS: insulin lispro 100 unit/1 mL SUBCUT (09:47)
[2022-05-17] MEDS: thyroid 60 mg Tablet 90 MG PO (09:49)
[2022-05-17 11:16] LABS: Anti-Nuclear Antibody Pattern Nuclear, Homogeneous; Anti-Nuclear Antibody Screen POSITIVE (NEGATIVE)
--- NOTE | 2022-05-17 11:30 | PM.DCS ---
Discharge Providers Date of Admission: 05/13/22 21:48 Date of Discharge: May 17, 2022 Attending Provider at Admission: Gage Gomez MD Attending Provider at Discharge: Ganga Rodríguez MD Primary Care Provider: Brandi Escalera MD Diagnoses at Discharge Discharge Diagnosis (1) ESRD (end stage renal disease): Status: Acute Reason for Visit Reason for Visit: CHEST PAIN Hospital Course Hospital Course Meghna Chaudhari is a 77 year old female with a recent history of MRSA pneumonia currently on her third week of 4 of IV vancomycin, for which she receives at dialysis, end-stage renal disease on dialysis, history of left AV fistula failure, with temporary right dialysis catheter in place, history of atrial fibrillation, history of 2 pulmonary embolisms, not on anticoagulation taken off when she went to [facility], COPD, history of Parkinson's disease, insulin-dependent type 2 diabetes mellitus, who presents to [facility] due to severe substernal stabbing chest pain radiating to the back. During the hospital stay she was managed for chest pain secondary to coronary artery disease: He underwent nuclear stress test: Which showed medium sized prior infarct seen?in the left circumflex artery and LAD territories. She underwent cardiac cath: With PCI: Cath report is awaited. Patient was continued on hemodialysis during the hospital stay, she was discharged on aspirin Plavix statin beta-savanah. During the hospital stay: CTA chest was done to rule out pulmonary embolism aortic dissection which was negative, lower extremity Doppler vein ruled out DVT. 2D echo: Normal left ventricular size, systolic function and wall?thickness, with no regional wall motion abnormalities. Grade?I/IV diastolic dysfunction (abnormal relaxation filling ?pattern), normal to mildly elevated filling pressures. Left?ventricular ejection fraction is estimated at 60 %.?Normal right ventricular size and systolic function. Moderate?pulmonary hypertension, RVSP 53.8 mmHg.?Mildly increased right atrial size. ?Moderately increased left atrial size.?Structurally normal mitral valve. Moderate mitral valve?regurgitation. Overall patient responded well to above medical management, and was discharged home in stable condition she will continue to follow cardiology as outpatient. Physical Exam Const: COMMON NORMALS: patient oriented x3 HENMT: COMMON NORMALS: normocephalic and atraumatic HEAD & SCALP: normocephalic and atraumatic Chest: COMMONS NORMALS: normal inspection of the chest and normal palpation of entire chest wall CHEST: Yes Symmetrical chest wall rise Resp: COMMON NORMALS: clear to auscultation bilaterally AUSCULTATION: clear to auscultation bilaterally Cardio: COMMON NORMALS: regular rate, regular rhythm, S1 normal heart sound present, S2 normal heart sound present, No gallops present (Cardio), No murmurs present (Cardio), No rub (Cardio) and Peripheral pulses 2+ throughout RATE: regular rate RHYTHM: regular rhythm HEART SOUNDS: S1 normal heart sound present and S2 normal heart sound present PERIPHERAL PULSES: Peripheral pulses 2+ throughout GI: COMMON NORMALS: Normal to inspection, nondistended, normoactive bowel sounds present, Soft to palpation, non-tender, No hepatosplenomegaly present and no masses AUSCULTATION: Yes normoactive bowel sounds PALPATION: Yes Soft to palpation and Yes No hepatosplenomegaly present RECTAL EXAM: deferred Neuro: COMMON NORMALS: patient oriented x3 Discharge Data Studies Completed and Pending Completed Studies During Hospitalization Category Date Time Status CT angio chest 82080 Stat Cat Scan 05/13/22 20:[address] chest wo con [id number] Stat Cat Scan 05/13/22 17:56 Completed Cardiac Stress Test MIBI [Sestamibi Stress Test Request Exams 05/15/22 18:45 Draft ] Routine XR chest 1V portable [id number] Stat Exams 05/13/22 15:59 Completed NM omar perf SPECT r/s* [id number] Routine Nuc Med 05/16/22 18:45 [place] [id number] Stat Ultrasound 05/13/22 21:56 Completed CV. echo limited [id number] Stat Ultrasound 05/14/22 06:00 Completed US venous duplex upper extremity LT [CV venous duplex Ultrasound 05/13/22 19:34 [place] [id number]] Stat Pending at discharge Category Date Time Status DJANGO DEVELOPER request for service Routine Exams 05/16/22 10:29 Taken Blood Culture Routine Lab 05/13/22 05:43 Results Radiology Impressions Chest X-Ray 05/13/22 15:59 IMPRESSION: 1. No acute findings. 2. Right central line in the right atrium. 3. Electronic stimulator wire lower dorsal spine Chest CT 05/13/22 17:56 IMPRESSION: 1. Mild cardiomegaly is noted. Coronary arterial calcifications are present. 2. Mild nonspecific patchy airspace disease demonstrated in the right lower lobe superolaterally. This may represent pneumonia. 3. 6 mm right perifissural nodule, series 4, image 39. No additional pulmonary nodules. Recommend follow-up CT Chest in 6-12 months. (References: Ghulam and Mily) REFERENCES: 1. Ghulam Roger et al. Guidelines for Management of Incidental Pulmonary Nodules Detected on CT Images: From the Fleischner Society 2017. Radiology. 2017;284(1):228-243. 2. Mily Angulo, et al. Updated Fleischner Society Guidelines for Managing Incidental Pulmonary Nodules: Common Questions and Challenging Scenarios. Radiographics. 2018;38(5):3452-2107. Chest CTA 05/13/22 20:23 IMPRESSION: 1. Cardiomegaly is present. 2. Main pulmonary artery is dilated, measuring 3.3 cm in diameter. This suggests pulmonary hypertension. 3. Pulmonary arteries appear patent. No pulmonary emboli demonstrated. Atherosclerosis of the thoracic aorta. Ascending aorta measures 3.2 cm in diameter. 4. No aortic dissection. 5. Nonspecific volume loss versus infiltrate noted in the anterior right lower lobe. This is unchanged from noncontrast CT chest of 05/13/2022 at 6:35 p.m.. No new pulmonary infiltrates are demonstrated. 6. 6 mm right perifissural nodule, series 4, image 39. No additional pulmonary nodules. Recommend follow-up CT Chest in 6-12 months. (References: Ghulam and Mily) REFERENCES: 1. Ghulam Roger, et al. Guidelines for Management of Incidental Pulmonary Nodules Detected on CT Images: From the Fleischner Society 2017. Radiology. 2017;284(1):228-243. 2. Mily Angulo et al. Updated Fleischner Society Guidelines for Managing Incidental Pulmonary Nodules: Common Questions and Challenging Scenarios. Radiographics. 2018;38(5):2347-0503. Venous Duplex 05/13/22 21:56 IMPRESSION: No evidence of deep vein thrombosis, bilateral lower extremities. Laboratory Results WBC 11.6 10^3/uL (4.0-10.0) H 05/17/22 04:51 RBC 2.47 10^6/uL (4.1-5.3) L 05/17/22 04:51 Hgb 7.6 g/dL (11.5-15.3) L 05/17/22 04:51 Hct 25.1 % (37.0-47.0) L 05/17/22 04:51 MCV 101.6 fl (81-99) H 05/17/22 04:51 MCH 30.8 pg (28.0-34.0) 05/17/22 04:51 MCHC 30.3 g/dL (30.0-36.0) 05/17/22 04:51 RDW 17.0 % (12.1-15.1) H 05/17/22 04:51 Plt Count 261 10^3/cmm (130-400) 05/17/22 04:51 MPV 9.9 fL (7.4-10.4) 05/17/22 04:51 Neut % (Auto) 78.3 % 05/17/22 04:51 Lymph % (Auto) 12.2 % 05/17/22 04:51 Loíza % (Auto) 6.6 % 05/17/22 04:51 Eos % (Auto) 1.9 % 05/17/22 04:51 Baso % (Auto) 0.3 % 05/17/22 04:51 Neut # (Auto) 9.09 10^3/uL (1.8-7.7) H 05/17/22 04:51 Lymph # (Auto) 1.4 10^3/uL (0.8-4.8) 05/17/22 04:51 Loíza # (Auto) 0.8 10^3/uL (0.2-0.9) 05/17/22 04:51 Eos # (Auto) 0.2 10^3/uL (0.0-0.8) 05/17/22 04:51 Baso # (Auto) 0.0 10^3/uL (0.0-0.1) 05/17/22 04:51 Nucleated RBC % (auto) 0 % 05/17/22 04:51 Nucleated RBCs # 0.0 /100WBC 05/17/22 04:51 Sodium 134 mmol/L (136-145) L 05/17/22 04:51 Potassium 4.2 mmol/L (3.5-5.1) 05/17/22 04:51 Chloride 97 mmol/L (98-107) L 05/17/22 04:51 Carbon Dioxide 22 mmol/L (22-29) 05/17/22 04:51 Anion Gap 19.2 (5-19) H 05/17/22 04:51 BUN 50 mg/dL (8-23) H 05/17/22 04:51 Creatinine 5.7 mg/dL (0.5-0.9) H* 05/17/22 04:51 GFR Calculation Not Reportable 05/17/22 04:51 Glucose 160 mg/dL (65-115) H 05/17/22 04:51 POC Glucose 165 mg/dL (70-110) H 05/17/22 06:15 Calculated Osmolality 295 mOsm/kg (285-295) 05/17/22 04:51 Lactic Acid 1.2 mmol/L (0.5-2.2) 05/13/22 22:09 Calcium 8.7 mg/dL (8.5-10.5) 05/17/22 04:51 Phosphorus 6.6 mg/dL (2.5-4.5) H 05/17/22 04:51 Magnesium 1.9 mg/dL (1.7-2.3) 05/17/22 04:51 Iron 44 ug/dL (37-145) 05/14/22 05:38 TIBC 183 mcg/dl 05/14/22 05:38 % Saturation 24.0 % (20-50) 05/14/22 05:38 Unsat Iron Binding 139 ug/dL (112-347) 05/14/22 05:38 Ferritin 1187 ng/mL (15-150) H 05/14/22 05:38 Total Bilirubin 0.4 mg/dL (0.15-1.2) 05/17/22 04:51 AST 9 U/L (0-32) 05/17/22 04:51 ALT < 5 U/L (0-33) 05/17/22 04:51 Alkaline Phosphatase 103 U/L (35-105) 05/17/22 04:51 Troponin T Gen 5 ng/L 351 ng/L (0-10) H* 05/14/22 05:38 Troponin T Baseline 30 ng/L (0-10) H 05/13/22 16:30 Troponin T 120 Minute 35.69 ng/L (0-10) H 05/13/22 18:26 Delta Troponin T 5.69 ABS# (0-10) 05/13/22 18:26 Troponin T Hi Sens 6Hr 131.2 ng/L (0-10) H 05/13/22 23:31 Troponin T Hi Sens 6Hr Delta 101.2 ng/L (0-12) H* 05/13/22 23:31 NT-Pro-B Natriuret Pep 92183 pg/mL (0-450) H 05/13/22 16:30 Total Protein 6.7 g/dL (6.6-8.7) 05/17/22 04:51 Albumin 3.3 g/dL (3.5-5.2) L 05/17/22 04:51 Globulin 3.4 g/dL (1.3-4.6) 05/17/22 04:51 Lipase 38 U/L (13-60) 05/13/22 16:30 Procalcitonin 0.14 ng/mL (0-0.5) 05/14/22 05:38 TSH 4.67 uIU/mL (0.27-4.20) H 05/13/22 16:30 Vancomycin Trough 19.6 ug/mL (10-15) H 05/13/22 22:09 JELANI Screen Positive (NEGATIVE) A 05/14/22 13:42 JELANI Titer 1:80 titer H 05/14/22 13:42 JELANI Pattern Nuclear, homogeneous A 05/14/22 13:42 Hep Bs Antigen Non-reactive (Nonreactive) 05/14/22 08:29 Hep Bs Antibody > 1000.0 (11.5-1000) H 05/14/22 08:29 Hepatitis C Antibody Non-reactive (Nonreactive) 05/14/22 08:29 Vitals Last Vital Signs Temp 98.1 F 05/17/22 11:12 Pulse 80 05/17/22 11:12 Resp 16 05/17/22 11:12 BP 165/66 05/17/22 11:12 Pulse Ox 95 05/17/22 08:00 O2 Del Method 05/17/22 08:00 O2 Flow Rate 2 05/16/22 15:56 Discharge Plan Discharge Patient Disposition: Home Condition: Stable Prescriptions: New aspirin 81 mg tablet,delayed release (DR/EC) 81 mg PO DAILY Qty: 30 3RF Continued losartan 50 mg Tablet 50 mg PO BEDTIME furosemide [Lasix] 40 mg Tablet 40 mg PO BID promethazine-DM 6.25-15 mg/5 mL Syrup 5 ml PO Q4H PRN (Reason: Cough) Neosporin (trg-sat-ksxcw) 3.5mg-400 unit- 5,000 unit/gram Ointment See Rx Instructions .ROUTE .COMPLEX Rx Instructions: apply to bottom of left foot topically one time a day -clean with ns apply ointment and bandage daily till healed ipratropium-albuterol 0.5 mg-3 mg(2.5 mg base)/3 mL Solution For Nebulization 3 ml INHALATION Q6H PRN (Reason: Cough) metoprolol tartrate 100 mg Tablet 100 mg PO BID ondansetron HCl 4 mg Tablet 4 mg PO Q8H PRN (Reason: Nausea And Vomiting) clonidine HCl 0.3 mg Tablet 0.3 mg PO Q8H PRN (Reason: systolic bp >160) loperamide [Imodium A-D] 2 mg Tablet 2 mg PO Q6H PRN (Reason: Loose Stool) metolazone 5 mg Tablet 5 mg PO QAM acetaminophen 500 mg Tablet 1,000 mg PO Q6H PRN (Reason: Pain) simvastatin 40 mg Tablet 40 mg PO BEDTIME@21 benzonatate 100 mg Capsule 100 mg PO Q8H PRN (Reason: Cough) mirtazapine 30 mg Tablet 30 mg PO BEDTIME@21 ropinirole 0.5 mg Tablet 0.5 mg PO QPM budesonide 0.5 mg/2 mL Suspension For Nebulization 0.5 mg inhalation Q12H Rx Instructions: for 5 days (start date 04/06/22) hydroxyzine HCl 25 mg Tablet 25 mg PO Q8H PRN (Reason: Itching) gabapentin 100 mg Capsule 100 mg PO TID Renal Caps 1 mg Capsule 1 cap PO QPM albuterol sulfate [ProAir HFA] 90 mcg/actuation Hfa Aerosol Inhaler 2 puff INHALATION Q6H PRN (Reason: Wheezing) carbidopa-levodopa 25-100 mg Tablet 2 tab PO TID sertraline 50 mg Tablet 50 mg PO DAILY hydroxyzine pamoate 25 mg Capsule 25 mg PO QPM insulin aspart U-100 [Novolog FlexPen U-100 Insulin] 100 unit/mL (3 mL) Insulin Pen See Rx Instructions .ROUTE .COMPLEX Rx Instructions: sliding scale three times a day 150-200=3 units 201-250=5 units 251-300=7 units 301-350=9 units 351-400=11 units call provider for bs <60 or >400 cyclobenzaprine 5 mg Tablet 5 mg PO Q8H PRN (Reason: Muscle Spasm) solifenacin 5 mg Tablet 5 mg PO QAM Advair HFA 115-21 mcg/actuation Hfa Aerosol Inhaler 2 puff INHALATION BID insulin glargine [Lantus Solostar U-100 Insulin] 100 unit/mL (3 mL) Insulin Pen 40 unit SUBCUT DAILY@06 amino acids-protein hydrolys 15-101 gram-kcal/30 mL Liquid See Rx Instructions .ROUTE .COMPLEX Rx Instructions: 30ml by mouth daily cholecalciferol (vitamin D3) [Vitamin D3] 50 mcg (2,000 unit) Capsule 6,000 unit PO DAILY thyroid (pork) [Mallory Thyroid] 90 mg Tablet 90 mg PO DAILY Lumigan 0.01 % Drops 1 drp OPHTHALMIC (EYE) BEDTIME oxycodone 7.5 mg Tablet, Oral Only 7.5 mg PO Q6H PRN (Reason: Pain) Eliquis 5 mg Tablet 5 mg PO BID (DME) calcium alginate 2 X 2 Bandage TOPICAL Rx Instructions: apply to left lower leg topically one time a day for diabetic ulcer Biofreeze (menthol) 4 % Gel See Rx Instructions .ROUTE .COMPLEX Rx Instructions: apply to bilat feet topically every 4 hours as needed for pain to feet Banophen 25 mg Tablet 25 mg PO Q24H PRN (Reason: Itching) Plavix 75 mg Tablet 75 mg PO QPM 30 Days Qty: 30 3RF Discharge Orders: Discharge Order (Routine); Ordered 05/17/22 Ordered By: Ganga Rodríguez Other Ambulatory Orders: Complete Blood Count w/Auto (Routine) Timeframe: 3 Days Location: Determined by Patient Ordered By: Ganga Rodríguez Referrals: Jen Blevins FNP [Nurse Practitioner] - 05/30/22 10:15 am Wilda Hammer FNP [Referring] - (Wilda Hammer will come to see you for a follow up appointment. She will work with your facility to determine the date and time. Thank you.) Patient Instructions: Anemia, Aspirin (By mouth) (Zen Extra Strength, Zen Aspirin Children[facility],..., Coronary Intravascular Stent Placement (DC), Opioid Safety, Post Angiogram Home Care Instructions Activity Restrictions/Additional Instructions: follow-up for a cbc blood draw. Hospitalist is okay not to continue eliquis if you have not been taking it for a while. Continue taking 81 mg of Aspirin and Plavix for your heart stent. Discharge Attestations Time Spent in Discharge Care*: greater than 30 min Quality Metrics Clinical Quality Measures [ No reported AMI, CVA or VTE this stay] Coding Level of Care Code Acute Chg FW DC note Diagnoses ESRD (end stage renal disease) N18.6
[2022-05-17] MEDS: oxyCODONE 5 mg IR Tab/Cap 7.5 MG PO (12:31)
--- NOTE | 2022-05-17 13:09 | PC.NURSE ---
hospitalist notified pt verified if she has been taking eliquis? and she said she has not been taking eliquis for quite awhile. she has been taken off of this because she was bleeding on her feet and require blood transfusion. notified dr hancock notified and he said pt is okay not to take it if she has not been taking it. she has to continue aspirin and plavix. pt verbalizes understanding. faxed the discharge orders to sami jenkins.
== END 2022-05-17 13:12 | disposition home health service (06) | DRG 246 ==
LOC: ER 21:09 → CSU 22:01
PROVIDERS: Internal Medicine; Internal Medicine Nephrology; Student in an Organized Health Care Education/Training Program; Admitting Provider Family Medicine; Emergency Provider Emergency Medicine; PCP Family Medicine; Visit Provider Internal Medicine
PROC: 027034Z Dilation of Coronary Artery, One Artery with Drug-eluting Intraluminal Device, Percutaneous Approach (ICD-10-PCS; principal; 2022-05-16 11:00)
PROC: 027034Z Dilation of Coronary Artery, One Artery with Drug-eluting Intraluminal Device, Percutaneous Approach (ICD-10-PCS; 2022-05-16 11:00)
DX: I21.4 Non-ST elevation (NSTEMI) myocardial infarction (principal); I50.31 Acute diastolic (congestive) heart failure; N18.6 End stage renal disease; J15.212 Pneumonia due to Methicillin resistant Staphylococcus aureus; I13.2 Hypertensive heart and chronic kidney disease with heart failure and with stage 5 chronic kidney disease, or end stage renal disease; L97.422 Non-pressure chronic ulcer of left heel and midfoot with fat layer exposed; I25.119 Atherosclerotic heart disease of native coronary artery with unspecified angina pectoris; E11.22 Type 2 diabetes mellitus with diabetic chronic kidney disease; E11.65 Type 2 diabetes mellitus with hyperglycemia; Z99.2 Dependence on renal dialysis; E11.610 Type 2 diabetes mellitus with diabetic neuropathic arthropathy; E11.621 Type 2 diabetes mellitus with foot ulcer; E11.42 Type 2 diabetes mellitus with diabetic polyneuropathy; I48.91 Unspecified atrial fibrillation; Z86.711 Personal history of pulmonary embolism; J44.9 Chronic obstructive pulmonary disease, unspecified; G20 Parkinson's disease; Z79.4 Long term (current) use of insulin; Z79.01 Long term (current) use of anticoagulants; Z79.02 Long term (current) use of antithrombotics/antiplatelets; Z88.5 Allergy status to narcotic agent; Z88.2 Allergy status to sulfonamides; D63.1 Anemia in chronic kidney disease; M79.7 Fibromyalgia; E78.5 Hyperlipidemia, unspecified; E03.9 Hypothyroidism, unspecified; M54.16 Radiculopathy, lumbar region; Z87.891 Personal history of nicotine dependence; D50.9 Iron deficiency anemia, unspecified; Z66 Do not resuscitate; I08.1 Rheumatic disorders of both mitral and tricuspid valves; I27.20 Pulmonary hypertension, unspecified
CPT/HCPCS: 36415; 36416; 71045; 71250; 71275; 78452; 80048; 80053; 80202; 82728; 82962; 83540; 83550; 83605; 83690; 83735; 83880; 84100; 84145; 84443; 84484; 85025; 85347; 86038; 86706; 86803; 87040; 87340; 90935; 93005; 93017; 93308; 93458; 93970; 93971; 94640; 94664; 96372; 96374; 96375; 99152; 99153; 99285; A9500; C1725; C1769; C1874; C1887; C1894; C9113; C9600; J0360; J1170; J1644; J1815; J2250; J2785; J3010; J3490; J7030; Q3014; Q4081; Q9967

== ENCOUNTER → 2022-06-20 14:01 | Outpatient (BNVA) | payer MEDICARE, OTHER, SELFPAY | PROVIDERS: PCP Family Medicine; Visit Provider Podiatrist Foot & Ankle Surgery | DX: E11.621 Type 2 diabetes mellitus with foot ulcer (principal); M14.671 Charcot's joint, right ankle and foot; Z89.429 Acquired absence of other toe(s), unspecified side; I73.9 Peripheral vascular disease, unspecified; E11.8 Type 2 diabetes mellitus with unspecified complications; Z79.4 Long term (current) use of insulin; L97.422 Non-pressure chronic ulcer of left heel and midfoot with fat layer exposed; E11.42 Type 2 diabetes mellitus with diabetic polyneuropathy; M14.672 Charcot's joint, left ankle and foot | CPT/HCPCS: 73630; 87070; 87075; 87077; 87186; 87205; 99214 ==

== ENCOUNTER 2022-06-26 11:54 | Inpatient (IN) | payer MEDICARE, OTHER, SELFPAY ==
[2022-06-26] VITALS (7 sets, daily range): BP systolic 129–153; BP diastolic 55–75; PULSE 71–89; RESP 16–20; TEMP 36.6–37.1; O2SAT 90–99; BMI 41.1
--- NOTE | 2022-06-26 12:26 | ECG_ITS ---
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 Measurements Intervals [place] Rate: 82 P: 85 MS: 172 QRS: 12 QRSD: 93 T: 52 QT: 373 QTc: 436 Interpretive Statements SINUS RHYTHM MODERATE ST DEPRESSION [0.05+ mV ST DEPRESSION] Compared to ECG 05/13/2022 22:00:43 First degree AV block no longer present ST (T wave) deviation still present Electronically Signed On 06-26-2022 17:29:33 CLERICAL MANAGER by Gabino Feng M.D. [id number]
--- NOTE | 2022-06-26 12:26 | XR_ITS ---
WS: [id number] Portable AP upright chest, 06/26/2022 Clinical Data: dyspnea/cough Comparison: Portable chest, 05/13/2022 Findings: No nodules, masses or effusions are seen. The heart is enlarged. The pulmonary vascularity is not increased. No pneumonia or pneumothorax is seen. There is a right dialysis catheter entering t he internal jugular vein and ending in the superior vena cava. The aortic arch and descending thoraci c aorta show calcification and tortuosity. There are epidural stimulator leads overlying the midthora cic spine. XR/XR chest 1V portable [id number] Impression: Cardiomegaly and atherosclerosis.
--- NOTE | 2022-06-26 12:26 | XR_ITS ---
WS: [id number] Left foot, 3 views, 06/26/2022 Clinical Data: diabetic foot ulcer Comparison: Left foot, 06/20/2022 Findings: The patient has had a surgical procedure at the midportion of the plantar surface of the left foot wi th resection of a small amount of soft tissue. The remainder of the left foot shows no change. There is arthrodesis of the bases of the left first and second metatarsals with the corresponding cuneiform s. There is absence of the left second toe. There is internal fixation of the distal left fibular fra cture. There is loss of the normal arch of the foot. There is soft tissue swelling over the plantar s urface and dorsal surface of the left foot There is osteoarthritic change of the left first MTP joint and of the tarsal bones. There is a plant ar spur. XR/XR foot LT min 3V* [id number] Impression: 1. Surgery on the plantar surface of the left foot. 2. Multiple changes in the left foot which appear the same.
--- NOTE | 2022-06-26 13:05 | PM.HP ---
Providers/Chief Complaint Primary Care Provider: Brandi Escalera MD Chief Complaint: Needs IV, Dr Chun sent History of Present Illness Meghna Chaudhari is a 77 year old female was sent by Dr. Chun when she was evaluated wound care clinic for worsening of her wound. She has seen Dr. Ash few days ago she had appearance of gas on left foot x-ray which Dr. Ash has evaluated today Dr. Chun asked her to go to the ER for worsening of her wound. In the ER I requested CT scan with contrast, requested nephrology to dialyze her afterwards. I have also notified Dr. Ash who is planning for amputation in the morning. She will be kept n.p.o. after midnight. Patient is stating that she still has 2 more weeks left on IV vancomycin, despite being on vancomycin she noticed fever on Sunday 102, she has been experiencing diarrhea, nausea, abdominal cramps, she has been very tired and fatigued and very frustrated because of her multiple comorbid conditions, she is getting dialysis at the time of my evaluation no active chest pain or shortness of breath, complaining of leg cramps and pain. Stating that oxycodone does not help her much Review of Systems Const: Reports: fever(s) Eyes: Denies: change in vision ENMT: Denies: throat pain Card: Denies: chest pain Resp: Denies: dyspnea GI: Reports: nausea, diarrhea and GI cramping : Denies: flank pain Musc: Reports: extremity pain, extremity swelling, joint warmth and limited range of motion Skin/Breast: Reports: rash, pruritus, erythema, skin tenderness, changing lesions, changes in skin color and nail changes Neuro: Denies: headache(s) Psych: Reports: anxiety Endo: Denies: polyuria Tank/Lymph: Denies: easy bruising All/Imm: Denies: urticaria Medications/Allergies Home Medications Medication Instructions Recorded Confirmed Last Taken Type acetaminophen 500 mg tablet 1,000 mg PO Q6H PRN Pain 04/07/22 06/26/22 06/26/22 History albuterol sulfate 90 mcg/actuation 2 puff inhalation Q6H PRN Wheezing 04/07/22 06/26/22 Unknown History aerosol inhaler (ProAir HFA) benzonatate 100 mg capsule 100 mg PO Q8H PRN Cough 04/07/22 06/26/22 Unknown History bimatoprost 0.01 % eye drops 1 drp ophthalmic (eye) BEDTIME 04/07/22 06/26/22 06/25/22 History (Alexandraigan) budesonide 0.5 mg/2 mL suspension 0.5 mg inhalation Q12H 04/07/22 06/26/22 06/25/22 History for nebulization calcium alginate 2 X 2 bandage 04/07/22 06/26/22 Unknown History carbidopa 25 mg-levodopa 100 mg 2 tab PO TID 04/07/22 06/26/22 06/26/22 History tablet cholecalciferol (vitamin D3) 50 6,000 unit PO DAILY 04/07/22 06/26/22 06/26/22 History mcg (2,000 unit) capsule (Vitamin D3) clonidine HCl 0.3 mg tablet 0.3 mg PO Q8H PRN systolic bp >160 04/07/22 06/26/22 Unknown History cyclobenzaprine 5 mg tablet 5 mg PO Q8H PRN Muscle Spasm 04/07/22 06/26/22 06/26/22 History fluticasone propionate 115 2 puff inhalation BID 04/07/22 06/26/22 06/26/22 History mcg-salmeterol 21 mcg/actuation HFA inhaler (Advair HFA) furosemide 40 mg tablet (Lasix) 40 mg PO BID 04/07/22 06/26/22 06/26/22 History gabapentin 100 mg capsule 100 mg PO TID 04/07/22 06/26/22 06/26/22 History hydroxyzine HCl 25 mg tablet 25 mg PO Q8H PRN Itching 04/07/22 06/26/22 Unknown History hydroxyzine pamoate 25 mg capsule 25 mg PO QPM 04/07/22 06/26/22 06/25/22 History insulin aspart U-100 100 unit/mL See Rx Instructions .Route .COMPLEX 04/07/22 06/26/22 06/26/22 History (3 mL) subcutaneous pen (Novolog FlexPen U-100 Insulin aspart) insulin glargine 100 unit/mL (3 40 unit SUBCUT DAILY@06 04/07/22 06/26/22 06/26/22 History mL) subcutaneous pen (Lantus Solostar U-100 Insulin) ipratropium 0.5 mg-albuterol 3 mg 3 ml inhalation Q6H PRN Cough 04/07/22 06/26/22 Unknown History (2.5 mg base)/3 mL nebulization soln loperamide 2 mg tablet (Imodium 2 mg PO Q6H PRN Loose Stool 04/07/22 06/26/22 06/26/22 History A-D) losartan 50 mg tablet 50 mg PO BEDTIME 04/07/22 06/26/22 06/25/22 History menthol 4 % topical gel (Biofreeze See Rx Instructions .Route .COMPLEX 04/07/22 06/26/22 Unknown History (menthol)) metolazone 5 mg tablet 5 mg PO QAM 04/07/22 06/26/22 06/26/22 History metoprolol tartrate 100 mg tablet 100 mg PO BID 04/07/22 06/26/22 06/26/22 History mirtazapine 30 mg tablet 30 mg PO BEDTIME@21 04/07/22 06/26/22 06/25/22 History neomycin-bacitracn Zn-polymyx 3.5 See Rx Instructions .Route .COMPLEX 04/07/22 06/26/22 Unknown History mg-400 unit-5,000 unit/gram top oint (Neosporin (nda-omy-grmaa)) ondansetron HCl 4 mg tablet 4 mg PO Q8H PRN Nausea And Vomiting 04/07/22 06/26/22 Unknown History promethazine-DM 6.25 mg-15 mg/5 mL 5 ml PO Q4H PRN Cough 04/07/22 06/26/22 Unknown History oral syrup ropinirole 0.5 mg tablet 0.5 mg PO QPM 04/07/22 06/26/22 06/25/22 History sertraline 50 mg tablet 50 mg PO DAILY 04/07/22 06/26/22 06/26/22 History simvastatin 40 mg tablet 40 mg PO BEDTIME@21 04/07/22 06/26/22 06/25/22 History solifenacin 5 mg tablet 5 mg PO QAM 04/07/22 06/26/22 06/26/22 History thyroid (pork) 90 mg tablet 90 mg PO DAILY 04/07/22 06/26/22 06/26/22 History ([place] Thyroid) vitamin B complex and vitamin C 1 cap PO QPM 04/07/22 06/26/22 06/25/22 History no.20-folic acid 1 mg capsule (Renal Caps) diphenhydramine HCl 25 mg tablet 25 mg PO Q24H PRN Itching 05/14/22 06/26/22 Unknown History (Banophen) aspirin 81 mg tablet,delayed 81 mg PO DAILY #30 tabs 05/17/22 06/26/22 06/26/22 Rx release clopidogrel 75 mg tablet (Plavix) 75 mg PO QPM 30 days #30 tabs 05/17/22 06/26/22 06/25/22 Rx doxycycline hyclate 100 mg capsule 100 mg PO BID 14 days #28 caps 06/20/22 06/26/22 06/26/22 Rx oxycodone-acetaminophen 7.5 mg-325 1 tab PO Q6H PRN Pain 06/26/22 06/26/22 06/26/22 History mg tablet temazepam 7.5 mg capsule 7.5 mg PO BEDTIME 06/26/22 06/26/22 06/25/22 History Allergies Allergy/AdvReac Type Severity Reaction Status Date / Time sulfamethoxazole Allergy Rash Verified 06/26/22 14:10 [From Septra] trimethoprim [From Septra] Allergy Rash Verified 06/26/22 14:10 morphine AdvReac Personality Verified 06/26/22 14:10 Change pregabalin [From Lyrica] AdvReac Loopy/Unste Verified 06/26/22 14:10 anoop PFSH Acute PFSH: Medical History Anemia in chronic illness Chronic insomnia Chronic renal insufficiency COPD (chronic obstructive pulmonary disease) Diabetes mellitus type 2, insulin dependent Diabetic neuropathy Elevated troponin ESRD (end stage renal disease) Fibromyalgia History of CVA (cerebrovascular accident) Hyperlipemia Hypertension Hyponatremia Hypothyroidism Influenza A Lumbar disc disease with radiculopathy Neuropathy Parkinson disease Post laminectomy syndrome Sciatica associated with disorder of lumbosacral spine Stage 4 chronic renal impairment associated with type 2 diabetes mellitus Uncontrolled insulin dependent diabetes mellitus Vitamin D deficiency Surgical History History of colonoscopy 2020 Hx of cholecystectomy Hx of foot surgery Hx of hysterectomy S/P dialysis catheter insertion Family History Father CAD (coronary artery disease) Mother CAD (coronary artery disease) Diabetes Grandfather CAD (coronary artery disease) Diabetes Social History Smoking and tobacco status: former smoker Second hand smoke exposure: No Alcohol intake: current Alcohol intake frequency: holidays/special occasions only Alcohol type: hard liquor Vitals/I&O/Wt Last Vital Signs Temp 97.9 F 06/26/22 12:26 Pulse 85 06/26/22 12:26 Resp 18 06/26/22 12:26 BP 139/72 06/26/22 12:26 Pulse Ox 90 06/26/22 12:26 O2 Del Method 06/26/22 12:26 Weight last 48 hrs Weight 119.295 kg Physical Exam Narrative: Pleasant cooperative female Getting dialysis Right tunneled dialysis catheter in place Right foot callus without active drainage Left foot plantar area with active purulent drainage Third left toe with gangrene 3+ edema of legs No chest pain S1, S2 Currently on room air Pleasant and cooperative Data 06/26/22 13:07 06/26/22 13:07 A&P Assessment and plan (1) Gas gangrene: (2) CAD (coronary artery disease): (3) Pulmonary hypertension: (4) Parkinson disease: (5) History of pulmonary embolism: (6) Charcot's joint of left foot: (7) Diabetic peripheral neuropathy associated with type 2 diabetes mellitus: (8) Charcot's joint of left foot: (9) Iron deficiency anemia: (10) ESRD (end stage renal disease): Plan Gas gangrene Patient will be kept n.p.o. Start broad-spectrum antibiotics Dr. Ash to see her in the morning for amputation Dr. Ash notified by myself CT scan done with contrast, she will be dialyzed afterwards, notified staff command and control officer History of diabetic. Foot ulcer Charcot foot, follows up with Dr. Chun at wound care End-stage renal disease, nephro consulted History of primary hypertension, coronary artery disease No active chest pain currently doing well on room air Coronary care with staff command and control officer and director global market research, spoke with Dr. Chun as well Spoke with radiation tech regarding contrast and consideration of end-stage renal disease Patient with history of MRSA pneumonia recently finished IV vancomycin history of left AV fistula failure History of PE not on anticoagulation History of Parkinson's without acute exacerbation Recent hospitalization notable for positive stress test, status post PCI she was discharged on aspirin, Plavix, she had drug-eluting stent placement in RCA Preoperative assessment: Patient recently had a stent placement I would not discontinue aspirin, hold Plavix for surgery tomorrow Continue beta-savanah, statins Full code N.p.o. after midnight Renal dialysis/consistent carb diet Insulin sliding scale Attestations Medical Necessity Statement*: More than 2 midnights anticipated and Moderate Time for a total of 55 minutes, includes reviewing past or interval history, examining/interviewing patient, placing orders, counseling patient/family/other support, updating patient/family/other support, discussing plan of care with staff, communicating with other healthcare providers, documenting encounter and coordinating care Diagnoses Gas gangrene A48.0 CAD (coronary artery disease) I25.10 Pulmonary hypertension I27.20 Parkinson disease G20 History of pulmonary embolism Z86.711 Charcot's joint of left foot M14.672 Diabetic peripheral neuropathy associated with type 2 diabetes mellitus E11.42 Charcot's joint of left foot M14.672 Iron deficiency anemia D50.9 ESRD (end stage renal disease) N18.6
[2022-06-26 13:19] LABS: Basophils # 0.1 10^3/uL (0.0-0.1); Basophils % 0.5 %; Eosinophils # 0.1 10^3/uL (0.0-0.8); Eosinophils % 0.4 %; Hematocrit 25.2 % (37.0-47.0); Hemoglobin 7.5 g/dL (11.5-15.3); Lymphocytes # 1.3 10^3/uL (0.8-4.8); Lymphocytes % 8.2 %; Mean Corpuscular HGB Conc 29.8 g/dL (30.0-36.0); Mean Corpuscular Hemoglobin 29.4 pg (28.0-34.0); Mean Corpuscular Volume 98.8 fl (81-99); Mean Platelet Volume 9.9 fL (7.4-10.4); Monocytes # 1.3 10^3/uL (0.2-0.9); Monocytes % 8.1 %; Neutrophils # 12.71 10^3/uL (1.8-7.7); Neutrophils % 82.3 %; Nucleated Red Blood Cells % 0 %; Platelet Count 349 10^3/cmm (130-400); Red Blood Count 2.55 10^6/uL (4.1-5.3); Red Cell Distribution Width 18.2 % (12.1-15.1); White Blood Count 15.5 10^3/uL (4.0-10.0)
--- NOTE | 2022-06-26 13:21 | CTR_ITS ---
PROCEDURE INFORMATION: Exam: CT Left Lower Extremity With Contrast, Foot Exam date and time: 06/26/2022 2:58 PM Age: 77 years old Clinical indication: Edema and swelling, leg or foot; Location not specified; Prior surgery; Additional info: Gas gangrenecm=osteo TECHNIQUE: Imaging protocol: CT of the left lower extremity with intravenous contrast was performed. Exam focused on the foot. Radiation optimization: All CT scans at this facility use at least one of these dose optimization techniques: automated exposure control; mA and/or kV adjustment per patient size (includes targeted exams where dose is matched to clinical indication); or iterative reconstruction. Contrast material: OMNI 351; Contrast volume: 100 ml; Contrast route: INTRAVENOUS (IV); REPORTING DATA: Count of CT and Cardiac NM exams in prior 12 months: This patient has received 3 known CTs and 0 known cardiac nuclear medicine studies in the 12 months prior to the current study. COMPARISON: CR XR foot LT min 3V* [id number] 06/26/2022 1:18 PM RADIATION DOSE METRICS: Total DLP (mGy-cm): 305.53 FINDINGS: Bones/joints: As noted in the soft tissue section there is subcutaneous emphysema surrounding 3rd digit from the distal tip through the proximal phalanx with no evident areas of cortical erosion or foci of gas within the osseous structures. Arthrodesis hardware again noted at the bases of the left 1st and 2nd metatarsals and corresponding cuneiforms. There is amputation of the 2nd digit. There is also intact ORIF hardware within the distal fibula. Soft tissues: There is subcutaneous emphysema and edema surrounding the 3rd digit from the distal tip through the base of the proximal phalanx. There is a plantar based ulceration at the level of the cuboid. CT/CT foot LT w con [id number] IMPRESSION: There is subcutaneous emphysema surrounding 3rd digit from the distal tip through the base of the 3rd proximal phalanx which would be indicative of gangrenous infection. While there are no evident signs of osteomyelitis on exam, given the close proximity of the gas to the 3rd digit osteomyelitis is presumed. MRI would provide a more sensitive evaluation for osteomyelitis as a next step imaging modality if this would change medical management.
--- NOTE | 2022-06-26 13:24 | PC.PHAR ---
CALLED WILBERT CARLISLE FOR A MAR AT 13:15
[2022-06-26 13:37] LABS: Alanine Aminotransferase < 5 U/L (0-33); Albumin Level 3.7 g/dL (3.5-5.2); Alkaline Phosphatase 171 U/L (35-105); Anion Gap 24.2 (5-19); Aspartate Amino Transferase 20 U/L (0-32); Blood Urea Nitrogen 62 mg/dL (8-23); Calcium 8.6 mg/dL (8.5-10.5); Carbon Dioxide 23 mmol/L (22-29); Chloride 91 mmol/L (98-107); Globulin 4.2 g/dL (1.3-4.6); Glucose 208 mg/dL (65-115); Osmolality Calculated 302 mOsm/kg (285-295); Potassium 4.2 mmol/L (3.5-5.1); Sodium 134 mmol/L (136-145); Total Bilirubin 0.6 mg/dL (0.15-1.2); Total Protein 7.9 g/dL (6.6-8.7)
--- NOTE | 2022-06-26 13:39 | ED_ITS ---
HPI - Extremity Problem General: Chief complaint: Extremity Problem,Nontraumatic Stated complaint: Needs IV, Dr Chun sent Time Seen by Provider: 06/26/22 12:12 Source: patient Mode of arrival: ambulatory History of Present Illness: 77-year-old female who presents to the emergency room with complaint of foot pain. She has a diabetic foot ulcer and Charcot foot on the left there is a gangrenous redness and exquisite tenderness in the left foot particularly in the third toe she was seen by Adiel at the wound care clinic earlier today and directed for admission to the hospital. There is no available beds on the floor so she came to the emergency room to initiate her lab work and treatment. Dr. Montelongo is already been notified for the admission. MD Complaint: extremity swelling Associated symptoms: Reports fever(s); Deny chest pain Review of Systems Const: Reports: fever(s), chills, fatigue and malaise; Denies: body aches or change in appetite ENMT: Denies: throat pain, ear or mastoid pain, nasal discharge or nasal congestion Card: Denies: chest pain, edema, dyspnea on exertion or orthopnea Resp: Denies: dyspnea, productive cough or non-productive cough GI: Denies: abdominal pain, nausea, vomiting, hematemesis, coffee ground emesis, diarrhea, constipation, bloating, hematochezia or melena : Denies: flank pain, difficulty voiding, dysuria, urinary frequency or urinary urgency Musc: Reports: joint pain and joint swelling Skin/Breast: Reports: erythema and other (Open wound on the sole of foot with drainage) 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 COPD (chronic obstructive pulmonary disease) Diabetes mellitus type 2, insulin dependent Diabetic neuropathy Diabetic peripheral neuropathy associated with type 2 diabetes mellitus Elevated troponin ESRD (end stage renal disease) ESRD (end stage renal disease) Fibromyalgia Goals of care, counseling/discussion History of CVA (cerebrovascular accident) History of pulmonary embolism Hyperlipemia Hypertension Hyponatremia Hypothyroidism Influenza A Iron deficiency anemia Lumbar disc disease with radiculopathy MRSA bacteremia Neuropathy Parkinson disease Pneumonia Post laminectomy syndrome Pulmonary hypertension Sciatica associated with disorder of lumbosacral spine Stage 4 chronic renal impairment associated with type 2 diabetes mellitus Uncontrolled insulin dependent diabetes mellitus Vitamin D deficiency Surgical History History of colonoscopy 2020 Hx of cholecystectomy Hx of foot surgery Hx of hysterectomy S/P dialysis catheter insertion Family History Father CAD (coronary artery disease) Mother CAD (coronary artery disease) Diabetes Grandfather CAD (coronary artery disease) Diabetes Social History Smoking and tobacco status: former smoker Second hand smoke exposure: No Alcohol intake: current Alcohol intake frequency: holidays/special occasions only Alcohol type: hard liquor Physical Exam Const: COMMON NORMALS: no acute distress GENERAL APPEARANCE: cooperative and comfortable ORIENTATION/CONSCIOUSNESS: Yes awake, Yes oriented to person, Yes oriented to place and Yes oriented to time HENMT: COMMON NORMALS: normocephalic, atraumatic and hearing grossly normal bilaterally HEAD & SCALP: normocephalic and atraumatic Resp: COMMON NORMALS: normal respiratory effort, No retractions, No use of accessory muscles and clear to auscultation bilaterally AUSCULTATION: clear to auscultation bilaterally Cardio: COMMON NORMALS: regular rate, regular rhythm and No murmurs present (Cardio) RATE: regular rate RHYTHM: regular rhythm GI: COMMON NORMALS: Soft to palpation and No hepatosplenomegaly present AUSCULTATION: Yes normoactive bowel sounds PALPATION: Yes Soft to palpation, No Tenderness to palpation present (GI), No Guarding due to palpation present (GI) and Yes No hepatosplenomegaly present Extremity: COMMON NORMALS: normal to inspection, capillary refill normal, no clubbing, cyanosis or edema, no calf tenderness and no pedal edema Neuro: SENSORIUM/ORIENTATION: Yes oriented to person, Yes oriented to place and Yes oriented to time Skin: OTHER: Open wound on the sole of the left foot. The left third toe is inflamed dusky gangrenous there is proximal lymphangitic streaking on the dorsum of the foot up the anterior tibia. There is active drainage at the sole of the foot. There appears to be abscess formation on the left third toe. Course Vital Signs: Vital signs: Vital Signs Temperature 98.0 F 06/27/22 07:34 Pulse Rate 67 06/27/22 07:34 Respiratory Rate 16 06/27/22 07:34 Blood Pressure 128/55 06/27/22 07:34 Pulse Oximetry 100 06/27/22 07:34 Oxygen Delivery Me thod 06/27/22 07:34 Oxygen Flow Rate 3 06/27/22 07:34 MDM - Extremity (Nontraumatic) Medical Decision Making Patient require admission for cellulitis. Dr. Chun had already contacted Dr. Montelongo ahead of time. Also note patient is significantly anemic. This is chronic in large part due to her chronic kidney disease she is on dialysis DrLluvia Montelongo he will consult nephrology and podiatry. Medical Records I reviewed the patient's medical records. Lab Data I reviewed the patient's lab results. 06/26/22 13:07 06/26/22 13:07 Radiology Impressions Chest X-Ray 06/26/22 12:26 Impression: Cardiomegaly and atherosclerosis. Foot X-Ray 06/26/22 12:26 Impression: 1. Surgery on the plantar surface of the left foot. 2. Multiple changes in the left foot which appear the same. Foot CT 06/26/22 13:21 IMPRESSION: There is subcutaneous emphysema surrounding 3rd digit from the distal tip through the base of the 3rd proximal phalanx which would be indicative of gangrenous infection. While there are no evident signs of osteomyelitis on exam, given the close proximity of the gas to the 3rd digit osteomyelitis is presumed. MRI would provide a more sensitive evaluation for osteomyelitis as a next step imaging modality if this would change medical management. ADDENDUM: 06/26/22 1610 Findings were discussed with ANDREW MONTELONGO at 06/26/2022 4:08 PM PRODUCTION SUPPORT MANAGER. Laboratory Results WBC 15.5 10^3/uL (4.0-10.0) H 06/26/22 13:07 RBC 2.55 10^6/uL (4.1-5.3) L 06/26/22 13:07 Hgb 7.5 g/dL (11.5-15.3) L 06/26/22 13:07 Hct 25.2 % (37.0-47.0) L 06/26/22 13:07 MCV 98.8 fl (81-99) 06/26/22 13:07 MCH 29.4 pg (28.0-34.0) 06/26/22 13:07 MCHC 29.8 g/dL (30.0-36.0) L 06/26/22 13:07 RDW 18.2 % (12.1-15.1) H 06/26/22 13:07 Plt Count 349 10^3/cmm (130-400) 06/26/22 13:07 MPV 9.9 fL (7.4-10.4) 06/26/22 13:07 Neut % (Auto) 82.3 % 06/26/22 13:07 Lymph % (Auto) 8.2 % 06/26/22 13:07 Finney % (Auto) 8.1 % 06/26/22 13:07 Eos % (Auto) 0.4 % 06/26/22 13:07 Baso % (Auto) 0.5 % 06/26/22 13:07 Neut # (Auto) 12.71 10^3/uL (1.8-7.7) H 06/26/22 13:07 Lymph # (Auto) 1.3 10^3/uL (0.8-4.8) 06/26/22 13:07 Finney # (Auto) 1.3 10^3/uL (0.2-0.9) H 06/26/22 13:07 Eos # (Auto) 0.1 10^3/uL (0.0-0.8) 06/26/22 13:07 Baso # (Auto) 0.1 10^3/uL (0.0-0.1) 06/26/22 13:07 Nucleated RBC % (auto) 0 % 06/26/22 13:07 Nucleated RBCs # 0.0 /100WBC 06/26/22 13:07 Sodium 134 mmol/L (136-145) L 06/26/22 13:07 Potassium 4.2 mmol/L (3.5-5.1) 06/26/22 13:07 Chloride 91 mmol/L (98-107) L 06/26/22 13:07 Carbon Dioxide 23 mmol/L (22-29) 06/26/22 13:07 Anion Gap 24.2 (5-19) H 06/26/22 13:07 BUN 62 mg/dL (8-23) H 06/26/22 13:07 Creatinine 4.8 mg/dL (0.5-0.9) H 06/26/22 13:07 GFR Calculation Not Reportable 06/26/22 13:07 Glucose 208 mg/dL (65-115) H 06/26/22 13:07 Calculated Osmolality 302 mOsm/kg (285-295) H 06/26/22 13:07 Calcium 8.6 mg/dL (8.5-10.5) 06/26/22 13:07 Total Bilirubin 0.6 mg/dL (0.15-1.2) 06/26/22 13:07 AST 20 U/L (0-32) 06/26/22 13:07 ALT < 5 U/L (0-33) 06/26/22 13:07 Alkaline Phosphatase 171 U/L (35-105) H 06/26/22 13:07 Total Protein 7.9 g/dL (6.6-8.7) 06/26/22 13:07 Albumin 3.7 g/dL (3.5-5.2) 06/26/22 13:07 Globulin 4.2 g/dL (1.3-4.6) 06/26/22 13:07 Discharge Plan Discharge Patient Disposition: Admitted As Inpatient Admit Provider: Andrew Montelongo Clinical Impression: Gangrene of left foot, Cellulitis of left foot, Acute kidney injury superimposed on CKD, Charcot's joint of left foot, Chronic ulcer of left foot with necrosis of muscle, ESRD on hemodialysis Condition: Stable Coding Level of Care Code ED Psychological Stress Evaluator for Dominick Baca
[2022-06-26] MEDS: HYDROcodone-acetaminophen 10-325 mg Tablet 1 TAB PO (14:27)
[2022-06-26] MEDS: carbidopa-levodopa 25-100mg Tablet 2 EACH PO ×2 (15:36→21:01)
[2022-06-26] MEDS: gabapentin 100 mg Capsule PO ×2 (15:36→21:01)
[2022-06-26 16:22] LABS: Protein Urine 3+ (Negative); Urine Appearance Hazy (CLEAR); Urine Color Yellow (Yellow); pH Urine 5 (5-7)
[2022-06-26 16:23] LABS: Add Urine Culture? No; Add Urine Microscopic? YES; Bacteria Urine TRACE /hpf; Bilirubin Urine Neg (Negative); Blood Urine 3+ (Negative); Glucose Urine UA Norm (Normal); Ketones Urine Negative (Negative); Leukocyte Esterase Urine 1+ (Negative); Nitrate Urine Negative (Negative); Squamous Epithelial Cell Urine 15-25 /hpf (0-5); Urobilinogen Urine Neg (Negative)
--- NOTE | 2022-06-26 16:46 | PM.CONSULT ---
Providers/Reason For Consult Consulting Physician/Specialty*: Guero Ash D.P.M. Reason for Consult*: Gangrene left third toe Attending Physician: Gonzalo Loaiza MD Primary Care Provider: Brandi Escalera MD History of Present Illness History of Present Illness Meghna Chaudhari is a 77 year old female referred to the emergency department for gangrenous appearing left third toe. She has had a acute onset of wound and a rapid progression of gangrene to her left third toe over the past week. I actually saw the patient 06/20/2022 and the left third toe was intact without wound at that time. She was referred to wound care for 3 wounds, there is a wound at the right plantar foot, left plantar foot and right second toe amputation site. In the emergency department she was noted to have soft tissue edema at the left third toe. Patient leukocytosis on admission. I evaluated the patient bedside during dialysis on [facility] [place]. Review of Systems General: Reports: 10 or more systems reviewed and unremarkable except in HPI and below Const: Denies: fever(s) or chills Eyes: Denies: change in vision Card: Denies: chest pain or palpitations Resp: Denies: dyspnea or productive cough GI: Denies: abdominal pain, nausea or vomiting : Denies: flank pain Musc: Reports: extremity swelling, joint stiffness and deformity Skin/Breast: Reports: erythema, sores, changes in skin color, dry skin, nail changes and change in hair Neuro: Reports: numbness in extremities, sensory changes and difficulty walking Psych: Denies: suicidal ideation Endo: Denies: change in body appearance Tank/Lymph: Denies: tender lymph nodes Medications/Allergies Home Medications Medication Instructions Recorded Confirmed Last Taken Type acetaminophen 500 mg tablet 1,000 mg PO Q6H PRN Pain 04/07/22 06/26/22 06/26/22 History albuterol sulfate 90 mcg/actuation 2 puff inhalation Q6H PRN Wheezing 04/07/22 06/26/22 Unknown History aerosol inhaler (ProAir HFA) benzonatate 100 mg capsule 100 mg PO Q8H PRN Cough 04/07/22 06/26/22 Unknown History bimatoprost 0.01 % eye drops 1 drp ophthalmic (eye) BEDTIME 04/07/22 06/26/22 06/25/22 History ([place]) budesonide 0.5 mg/2 mL suspension 0.5 mg inhalation Q12H 04/07/22 06/26/22 06/25/22 History for nebulization calcium alginate 2 X 2 bandage 04/07/22 06/26/22 Unknown History carbidopa 25 mg-levodopa 100 mg 2 tab PO TID 04/07/22 06/26/22 06/26/22 History tablet cholecalciferol (vitamin D3) 50 6,000 unit PO DAILY 04/07/22 06/26/22 06/26/22 History mcg (2,000 unit) capsule (Vitamin D3) clonidine HCl 0.3 mg tablet 0.3 mg PO Q8H PRN systolic bp >160 04/07/22 06/26/22 Unknown History cyclobenzaprine 5 mg tablet 5 mg PO Q8H PRN Muscle Spasm 04/07/22 06/26/22 06/26/22 History fluticasone propionate 115 2 puff inhalation BID 04/07/22 06/26/22 06/26/22 History mcg-salmeterol 21 mcg/actuation HFA inhaler (Advair HFA) furosemide 40 mg tablet (Lasix) 40 mg PO BID 04/07/22 06/26/22 06/26/22 History gabapentin 100 mg capsule 100 mg PO TID 04/07/22 06/26/22 06/26/22 History hydroxyzine HCl 25 mg tablet 25 mg PO Q8H PRN Itching 04/07/22 06/26/22 Unknown History hydroxyzine pamoate 25 mg capsule 25 mg PO QPM 04/07/22 06/26/22 06/25/22 History insulin aspart U-100 100 unit/mL See Rx Instructions .Route .COMPLEX 04/07/22 06/26/22 06/26/22 History (3 mL) subcutaneous pen (Novolog FlexPen U-100 Insulin aspart) insulin glargine 100 unit/mL (3 40 unit SUBCUT DAILY@06 04/07/22 06/26/22 06/26/22 History mL) subcutaneous pen (Lantus Solostar U-100 Insulin) ipratropium 0.5 mg-albuterol 3 mg 3 ml inhalation Q6H PRN Cough 04/07/22 06/26/22 Unknown History (2.5 mg base)/3 mL nebulization soln loperamide 2 mg tablet (Imodium 2 mg PO Q6H PRN Loose Stool 04/07/22 06/26/22 06/26/22 History A-D) losartan 50 mg tablet 50 mg PO BEDTIME 04/07/22 06/26/22 06/25/22 History menthol 4 % topical gel (Biofreeze See Rx Instructions .Route .COMPLEX 04/07/22 06/26/22 Unknown History (menthol)) metolazone 5 mg tablet 5 mg PO QAM 04/07/22 06/26/22 06/26/22 History metoprolol tartrate 100 mg tablet 100 mg PO BID 04/07/22 06/26/22 06/26/22 History mirtazapine 30 mg tablet 30 mg PO BEDTIME@21 04/07/22 06/26/22 06/25/22 History neomycin-bacitracn Zn-polymyx 3.5 See Rx Instructions .Route .COMPLEX 04/07/22 06/26/22 Unknown History mg-400 unit-5,000 unit/gram top oint (Neosporin ([id number])) ondansetron HCl 4 mg tablet 4 mg PO Q8H PRN Nausea And Vomiting 04/07/22 06/26/22 Unknown History promethazine-DM 6.25 mg-15 mg/5 mL 5 ml PO Q4H PRN Cough 04/07/22 06/26/22 Unknown History oral syrup ropinirole 0.5 mg tablet 0.5 mg PO QPM 04/07/22 06/26/22 06/25/22 History sertraline 50 mg tablet 50 mg PO DAILY 04/07/22 06/26/22 06/26/22 History simvastatin 40 mg tablet 40 mg PO BEDTIME@21 04/07/22 06/26/22 06/25/22 History solifenacin 5 mg tablet 5 mg PO QAM 04/07/22 06/26/22 06/26/22 History thyroid (pork) 90 mg tablet 90 mg PO DAILY 04/07/22 06/26/22 06/26/22 History ([place] Thyroid) vitamin B complex and vitamin C 1 cap PO QPM 04/07/22 06/26/22 06/25/22 History no.20-folic acid 1 mg capsule (Renal Caps) diphenhydramine HCl 25 mg tablet 25 mg PO Q24H PRN Itching 05/14/22 06/26/22 Unknown History (Banophen) aspirin 81 mg tablet,delayed 81 mg PO DAILY #30 tabs 05/17/22 06/26/22 06/26/22 Rx release clopidogrel 75 mg tablet (Plavix) 75 mg PO QPM 30 days #30 tabs 05/17/22 06/26/22 06/25/22 Rx doxycycline hyclate 100 mg capsule 100 mg PO BID 14 days #28 caps 06/20/22 06/26/22 06/26/22 Rx oxycodone-acetaminophen 7.5 mg-325 1 tab PO Q6H PRN Pain 06/26/22 06/26/22 06/26/22 History mg tablet temazepam 7.5 mg capsule 7.5 mg PO BEDTIME 06/26/22 06/26/22 06/25/22 History Allergies Allergy/AdvReac Type Severity Reaction Status Date / Time sulfamethoxazole Allergy Rash Verified 06/26/22 14:10 [From Septra] trimethoprim [From Septra] Allergy Rash Verified 06/26/22 14:10 morphine AdvReac Personality Verified 06/26/22 14:10 Change pregabalin [From Lyrica] AdvReac Loopy/Unste Verified 06/26/22 14:10 anoop Current Medications Generic Name Dose Route Start Last Admin Trade Name Freq PRN Reason Stop Dose Admin Carbidopa/Levodopa 2 each 06/26/22 15:05 06/26/22 15:36 Carbidopa-Levodopa 25-100mg Tablet PO 2 each TID BILLIE Administration Gabapentin 100 mg 06/26/22 15:05 06/26/22 15:36 Gabapentin 100 Mg Capsule PO 100 mg TID BILLIE Administration PFSH Acute PFSH: Medical History Anemia in chronic illness Chronic insomnia Chronic renal insufficiency COPD (chronic obstructive pulmonary disease) Diabetes mellitus type 2, insulin dependent Diabetic neuropathy Elevated troponin ESRD (end stage renal disease) Fibromyalgia History of CVA (cerebrovascular accident) Hyperlipemia Hypertension Hyponatremia Hypothyroidism Influenza A Lumbar disc disease with radiculopathy Neuropathy Parkinson disease Post laminectomy syndrome Sciatica associated with disorder of lumbosacral spine Stage 4 chronic renal impairment associated with type 2 diabetes mellitus Uncontrolled insulin dependent diabetes mellitus Vitamin D deficiency Surgical History History of colonoscopy 2020 Hx of cholecystectomy Hx of foot surgery Hx of hysterectomy S/P dialysis catheter insertion Family History Father CAD (coronary artery disease) Mother CAD (coronary artery disease) Diabetes Grandfather CAD (coronary artery disease) Diabetes Social History Smoking and tobacco status: former smoker Second hand smoke exposure: No Alcohol intake: current Alcohol intake frequency: holidays/special occasions only Alcohol type: hard liquor Vitals/I&O/Wt Last Vital Signs Temp 98.1 F 06/26/22 14:50 Pulse 84 06/26/22 14:50 Resp 18 06/26/22 14:50 BP 132/70 06/26/22 14:50 Pulse Ox 91 06/26/22 14:50 O2 Del Method 06/26/22 15:05 Weight last 48 hrs Weight 263 lb Weight 263 lb Physical Exam Narrative: Patient is alert and oriented ?3 and in no acute distress.? The following is a focused bilateral lower extremity exam.? Accompanied by her daughter ambulates without assistance. VASCULAR: Dorsalis pedis +2 bilaterally.? Posterior tibial arteries +1 bilaterally.? Capillary refill time less than 5 seconds to the distal hallux bilaterally. Calf is supple and nontender proximally and distally.? Decreased pedal hair growth bilaterally +1 pitting edema to the lower extremities tested at the lower one third of the anterior tibial crest. NEUROLOGICAL: Protective sensation intact 0/10 sites, tested with [place] monofilament to bilateral feet. DERMATOLOGICAL: Lower extremity integument is thin and atrophic with decreased texture and turgor.? Decrease elasticity has shiny appearance.? Dystrophic toenails 1, 3, 4 and 5 bilaterally with elongation and thickening with discoloration and supple debris present.? Hyperkeratosis at the lateral aspect of the left fifth toe.? No open wounds, no erythema or ecchymosis present.? Webspaces 1 through 4 bilaterally are clean, dry and intact. Burdick grade 2 wound right Foot at the medial cuneiform wound measurements: .4 x 1.9 x.2 cm Burdick grade 2 wound left foot sub cuboid wound measurements: 1.6 x 3.7 x.5, wound extends to deep fascia and tendon. Burdick grade 3 wound left third toe has ischemic appearance exposed bone with purulence. MUSCULOSKELETAL: Pes planus foot type left more severe than right, rocker-bottom foot to the left.? Ankle joint dorsiflexion is 8 degrees bilaterally.? Muscle strength is 5 out of 5 in all 3 cardinal planes to the bilateral foot and ankle.? Metatarsus abductus bilaterally.? First metatarsophalangeal joint dorsiflexion 30 degrees bilaterally.? Partial amputation of the right second toe, amputation of the left second toe.? Calcaneal valgus bilaterally nonreducible. CARDIOVASCULAR: S1, S2, normal rate, normal rhythm. Dorsalis pedis and posterior tibial arteries palpable. LUNGS: Clear to auscltation, no use of acessory muscles, no crackles or wheezes. 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 Also history of amputation of the left second toe. History of partial potation right second toe. She has had nonhealing wounds of the plantar aspect of the left and right foot as well as at the right second toe. She has new onset of gangrenous left third toe with soft tissue edema appreciate CT scan and x-ray. Discussed clinical and laboratory findings with the patient at length. I recommended left second toe amputation due to gangrenous changes with soft tissue of eczema, also recommend incision debridement the left foot, it is possible that the infection at her left third toe can be a extension of the left plantar foot wound via tendon sheath. I did not appreciate any wounds to her left third toe recently seen in podiatry clinic 06/20/2022. Recommended incision and debridement to the left foot wound as well as left third toe amputation at the metatarsal phalangeal joint. Will likely require to be left open and here secondarily versus primary delayed closure pending her response to IV antibiotics during this hospital admission. Patient is agreeable and wishes to proceed with surgical intervention tomorrow as above. -N.p.o. at midnight -Scheduled for incision and debridement left foot with amputation of left third toe tomorrow 06/27/2022 at noon -Patient to be nonweightbearing to the left foot during this hospitalization. I reviewed at length with the patient, the risks, potential complications, benefits, alternatives, expectations, and typical outcomes associated with the surgery. The risks and potential complications were explained in detail, including but not limited to infection, wound dehiscence or soft tissue complications, bleeding and hematoma, chronic edema, neuritis or nerve damage producing numbness or chronic pain, CRPS, failure to relieve pain or worsening pain, thick / painful / unsightly scar, limited motion / stiffness, malposition, delayed union, malunion, or nonunion, fracture, reaction to implants, anesthetic complications, venous thromboembolism, and deformity recurrence. I discussed the notion of no regrets with the patient as it pertains to complications and outcomes. The patient seemed to understand the nature of the proposed care and required convalescence. They asked appropriate questions, answered to their satisfaction. They are aware no guarantees can be made as to a satisfactory outcome and they understand there may be other possible unforeseen complications or outcomes not listed here that will be treated accordingly if they arise. There were no written or implied guarantees given to the patient. They gave informed consent to proceed. Consult Attestations Medical Necessity Statement: Diabetic foot infection Coding Level of Care Code Acute Code for [facility] Fwd Diagnoses Gangrene of left foot I96 Cellulitis of left foot L03.116 Diabetic peripheral neuropathy associated with type 2 diabetes mellitus E11.42 Acute kidney injury superimposed on CKD N17.9; N18.9 Chronic ulcer of left foot with necrosis of muscle L97.523
[2022-06-26] MEDS: insulin lispro 100 unit/1 mL SUBCUT (18:01)
--- NOTE | 2022-06-26 19:21 | P.CONIM_ITS ---
Providers/Reason For Consult Consulting Physician/Specialty*: [place]/Nephrology Reason for Consult*: ESRD Attending Physician: Gonzalo Loaiza MD Primary Care Provider: Brandi Escalera MD History of Present Illness History of Present Illness 77-year-old female with past medical history of hypertension, diabetes, COPD, peripheral vascular disease, hypothyroidism, Parkinson's disease, ESRD on dialysis per MWF schedule was sent to the hospital from wound care clinic due to left foot wound which was getting worse she was getting IV vancomycin as outpatient But despite that the patient's wound gotten worse. Patient missed her dialysis today. She underwent CT scan with IV contrast . Labs significant for hemoglobin of 8.1, sodium was 134 potassium is 4.2 and creatinine 4.8. Patient currently receiving dialysis. End-stage renal disease: On dialysis per MWF schedule, plan for HD today-3.5 hours, 3 L ultrafiltration as tolerated Review of Systems Narrative: Other ROS negative Medications/Allergies Home Medications Medication Instructions Recorded Confirmed Last Taken Type acetaminophen 500 mg tablet 1,000 mg PO Q6H PRN Pain 04/07/22 06/26/22 06/26/22 History albuterol sulfate 90 mcg/actuation 2 puff inhalation Q6H PRN Wheezing 04/07/22 06/26/22 Unknown History aerosol inhaler (ProAir HFA) benzonatate 100 mg capsule 100 mg PO Q8H PRN Cough 04/07/22 06/26/22 Unknown History bimatoprost 0.01 % eye drops 1 drp ophthalmic (eye) BEDTIME 04/07/22 06/26/22 06/25/22 History ([place]) budesonide 0.5 mg/2 mL suspension 0.5 mg inhalation Q12H 04/07/22 06/26/22 06/25/22 History for nebulization calcium alginate 2 X 2 bandage 04/07/22 06/26/22 Unknown History carbidopa 25 mg-levodopa 100 mg 2 tab PO TID 04/07/22 06/26/22 06/26/22 History tablet cholecalciferol (vitamin D3) 50 6,000 unit PO DAILY 04/07/22 06/26/22 06/26/22 History mcg (2,000 unit) capsule (Vitamin D3) clonidine HCl 0.3 mg tablet 0.3 mg PO Q8H PRN systolic bp >160 04/07/22 06/26/22 Unknown History cyclobenzaprine 5 mg tablet 5 mg PO Q8H PRN Muscle Spasm 04/07/22 06/26/22 06/26/22 History fluticasone propionate 115 2 puff inhalation BID 04/07/22 06/26/22 06/26/22 History mcg-salmeterol 21 mcg/actuation HFA inhaler (Advair HFA) furosemide 40 mg tablet (Lasix) 40 mg PO BID 04/07/22 06/26/22 06/26/22 History gabapentin 100 mg capsule 100 mg PO TID 04/07/22 06/26/22 06/26/22 History hydroxyzine HCl 25 mg tablet 25 mg PO Q8H PRN Itching 04/07/22 06/26/22 Unknown History hydroxyzine pamoate 25 mg capsule 25 mg PO QPM 04/07/22 06/26/22 06/25/22 History insulin aspart U-100 100 unit/mL See Rx Instructions .Route .COMPLEX 04/07/22 06/26/22 06/26/22 History (3 mL) subcutaneous pen (Novolog FlexPen U-100 Insulin aspart) insulin glargine 100 unit/mL (3 40 unit SUBCUT DAILY@06 04/07/22 06/26/22 06/26/22 History mL) subcutaneous pen (Lantus Solostar U-100 Insulin) ipratropium 0.5 mg-albuterol 3 mg 3 ml inhalation Q6H PRN Cough 04/07/22 06/26/22 Unknown History (2.5 mg base)/3 mL nebulization soln loperamide 2 mg tablet (Imodium 2 mg PO Q6H PRN Loose Stool 04/07/22 06/26/22 06/26/22 History A-D) losartan 50 mg tablet 50 mg PO BEDTIME 04/07/22 06/26/22 06/25/22 History menthol 4 % topical gel (Biofreeze See Rx Instructions .Route .COMPLEX 04/07/22 06/26/22 Unknown History (menthol)) metolazone 5 mg tablet 5 mg PO QAM 04/07/22 06/26/22 06/26/22 History metoprolol tartrate 100 mg tablet 100 mg PO BID 04/07/22 06/26/22 06/26/22 History mirtazapine 30 mg tablet 30 mg PO BEDTIME@21 04/07/22 06/26/22 06/25/22 History neomycin-bacitracn Zn-polymyx 3.5 See Rx Instructions .Route .COMPLEX 04/07/22 06/26/22 Unknown History mg-400 unit-5,000 unit/gram top oint (Neosporin (mem-jyu-hxeem)) ondansetron HCl 4 mg tablet 4 mg PO Q8H PRN Nausea And Vomiting 04/07/22 06/26/22 Unknown History promethazine-DM 6.25 mg-15 mg/5 mL 5 ml PO Q4H PRN Cough 04/07/22 06/26/22 Unknown History oral syrup ropinirole 0.5 mg tablet 0.5 mg PO QPM 04/07/22 06/26/22 06/25/22 History sertraline 50 mg tablet 50 mg PO DAILY 04/07/22 06/26/22 06/26/22 History simvastatin 40 mg tablet 40 mg PO BEDTIME@21 04/07/22 06/26/22 06/25/22 History solifenacin 5 mg tablet 5 mg PO QAM 04/07/22 06/26/22 06/26/22 History thyroid (pork) 90 mg tablet 90 mg PO DAILY 04/07/22 06/26/22 06/26/22 History ([place] Thyroid) vitamin B complex and vitamin C 1 cap PO QPM 04/07/22 06/26/22 06/25/22 History no.20-folic acid 1 mg capsule (Renal Caps) diphenhydramine HCl 25 mg tablet 25 mg PO Q24H PRN Itching 05/14/22 06/26/22 Unknown History (Banophen) aspirin 81 mg tablet,delayed 81 mg PO DAILY #30 tabs 05/17/22 06/26/22 06/26/22 Rx release clopidogrel 75 mg tablet (Plavix) 75 mg PO QPM 30 days #30 tabs 05/17/22 06/26/22 06/25/22 Rx doxycycline hyclate 100 mg capsule 100 mg PO BID 14 days #28 caps 06/20/22 06/26/22 06/26/22 Rx oxycodone-acetaminophen 7.5 mg-325 1 tab PO Q6H PRN Pain 06/26/22 06/26/22 06/26/22 History mg tablet temazepam 7.5 mg capsule 7.5 mg PO BEDTIME 06/26/22 06/26/22 06/25/22 History Allergies Allergy/AdvReac Type Severity Reaction Status Date / Time sulfamethoxazole Allergy Rash Verified 06/26/22 14:10 [From Septra] trimethoprim [From Septra] Allergy Rash Verified 06/26/22 14:10 morphine AdvReac Personality Verified 06/26/22 14:10 Change pregabalin [From Lyrica] AdvReac Loopy/Unste Verified 06/26/22 14:10 anoop Current Medications Generic Name Dose Route Start Last Admin Trade Name Freq PRN Reason Stop Dose Admin Carbidopa/Levodopa 2 each 06/26/22 15:05 06/26/22 15:36 Carbidopa-Levodopa 25-100mg Tablet PO 2 each TID BILLIE Administration Gabapentin 100 mg 06/26/22 15:05 06/26/22 15:36 Gabapentin 100 Mg Capsule PO 100 mg TID BILLIE Administration Insulin Human Lispro 0 unit 06/26/22 18:00 06/26/22 18:01 Insulin Lispro 100 Unit/1 Ml SUBCUT 8 unit TIDWM BILLIE Administration Protocol PFSH Acute 2 PFSH: Medical History Anemia in chronic illness Chronic insomnia Chronic renal insufficiency COPD (chronic obstructive pulmonary disease) Diabetes mellitus type 2, insulin dependent Diabetic neuropathy Elevated troponin ESRD (end stage renal disease) Fibromyalgia History of CVA (cerebrovascular accident) Hyperlipemia Hypertension Hyponatremia Hypothyroidism Influenza A Lumbar disc disease with radiculopathy Neuropathy Parkinson disease Post laminectomy syndrome Sciatica associated with disorder of lumbosacral spine Stage 4 chronic renal impairment associated with type 2 diabetes mellitus Uncontrolled insulin dependent diabetes mellitus Vitamin D deficiency Surgical History History of colonoscopy 2020 Hx of cholecystectomy Hx of foot surgery Hx of hysterectomy S/P dialysis catheter insertion Family History Father CAD (coronary artery disease) Mother CAD (coronary artery disease) Diabetes Grandfather CAD (coronary artery disease) Diabetes Social History Smoking and tobacco status: former smoker Second hand smoke exposure: No Alcohol intake: current Alcohol intake frequency: holidays/special occasions only Alcohol type: hard liquor Vitals/I&O/Wt Last Vital Signs Temp 98.8 F 06/26/22 16:53 Pulse 88 06/26/22 16:53 Resp 16 06/26/22 16:53 BP 138/75 06/26/22 16:53 Pulse Ox 91 06/26/22 14:50 O2 Del Method 06/26/22 15:05 06/26/22 06/26/22 06/26/22 06:59 14:59 22:59 Intake Total 240 / 240 Output Total 150 / 150 Balance 90 / 90 Weight last 48 hrs Weight 119.295 kg Weight 119.295 kg Physical Exam Narrative: VSS In bed, NARD, comfortable heent- nc/at, eomi, anicteric neck supple lungs -good air movement b/l heart -reg abd soft, nt, nd, + bs access AVF and RT IJ PC Data 06/26/22 13:07 06/26/22 13:07 Micro: Microbiology 06/26/22 13:00 Blood Culture - Preliminary Blood SPECIMEN COLLECTED 06/26/22 13:07 Blood Culture - Preliminary Blood SPECIMEN COLLECTED A&P Assessment and plan (1) ESRD on hemodialysis: Plan End-stage renal disease: On dialysis per [facility] schedule, plan for HD today-3.5 hours, 3 L ultrafiltration as tolerated Hypertension: Blood pressure controlled, restart home meds Left foot gangrene: Surgery following, likely OR tomorrow for debridement Anemia: We will give Epogen Patient evaluated using audiovisual cart. Time spent 45 minutes Consult Attestations Medical Necessity Statement: Diabetic foot infection Coding Level of Care Code Acute Code for [facility] Fwd Diagnoses ESRD on hemodialysis N18.6; Z99.2
[2022-06-26 19:33] LABS: Glucose Point of Care 187 mg/dL (70-110)
[2022-06-26] MEDS: oxyCODONE 5 mg IR Tab/Cap 7.5 MG PO (21:01)
[2022-06-26] MEDS: vancomycin 1,000 MG in sodium chloride 0.9% 250 ML 250 MG IV (21:02)
[2022-06-26] MEDS: metoprolol tartrate 50 mg Tablet 100 MG PO (21:22)
[2022-06-26] MEDS: piperacillin-tazobactam 3.375 GM in sodium chloride 0.9% (plus) 50 ML IV (22:24)
[2022-06-26] MEDS: diphenhydrAMINE 25 mg Capsule PO (22:45)
[2022-06-27] VITALS (25 sets, daily range): BP systolic 105–148; BP diastolic 41–85; PULSE 62–85; RESP 14–18; TEMP 36.6–36.9; O2SAT 90–100
[2022-06-27 02:23] LABS: Glucose Point of Care 236 mg/dL (70-110)
[2022-06-27 05:42] LABS: Glucose Point of Care 127 mg/dL (70-110)
--- NOTE | 2022-06-27 05:42 | PC.NURSE ---
[address] Escalera due to surgery at noon, been NPO since midnight and BS 127
[2022-06-27 05:56] LABS: Basophils # 0.1 10^3/uL (0.0-0.1); Basophils % 0.5 %; Eosinophils # 0.3 10^3/uL (0.0-0.8); Eosinophils % 3.1 %; Hematocrit 24.4 % (37.0-47.0); Hemoglobin 7.1 g/dL (11.5-15.3); Lymphocytes # 1.3 10^3/uL (0.8-4.8); Lymphocytes % 13.4 %; Mean Corpuscular HGB Conc 29.1 g/dL (30.0-36.0); Mean Corpuscular Hemoglobin 29.5 pg (28.0-34.0); Mean Corpuscular Volume 101.2 fl (81-99); Mean Platelet Volume 9.7 fL (7.4-10.4); Monocytes # 0.9 10^3/uL (0.2-0.9); Monocytes % 10.1 %; Neutrophils # 6.74 10^3/uL (1.8-7.7); Neutrophils % 72.4 %; Nucleated Red Blood Cells % 0 %; Platelet Count 309 10^3/cmm (130-400); Red Blood Count 2.41 10^6/uL (4.1-5.3); Red Cell Distribution Width 18.2 % (12.1-15.1); White Blood Count 9.3 10^3/uL (4.0-10.0)
[2022-06-27 06:18] LABS: Blood Urea Nitrogen 32 mg/dL (8-23); C Reactive Protein 211.8 mg/L (0.0-4.9); Calcium 8.9 mg/dL (8.5-10.5); Carbon Dioxide 27 mmol/L (22-29); Chloride 98 mmol/L (98-107); Glucose 126 mg/dL (65-115); Magnesium 1.8 mg/dL (1.7-2.3); Osmolality Calculated 294 mOsm/kg (285-295); Phosphorus 4.7 mg/dL (2.5-4.5); Sodium 138 mmol/L (136-145)
[2022-06-27 06:49] LABS: Glucose Point of Care 136 mg/dL (70-110)
[2022-06-27] MEDS: ipratropium-albuterol 3 mL Neb INHALATION (09:39)
[2022-06-27] MEDS: budesonide 0.5 mg/2 mL Neb INHALATION ×2 (09:39→21:59)
[2022-06-27 11:02] LABS: Glucose Point of Care 167 mg/dL (70-110)
--- NOTE | 2022-06-27 11:06 | PC.CHAP ---
Pastoral Care Encounter/Spiritual Assessment Type of Contact [] Declined day care supervisor visit [] Patient/Family/Request visit [] Outpatient visit [] Follow-up visit [] Physician referral [] Code/Alert [] Routine visit [] Staff referral [] Actively dying [] Patient sleeping [] Family support [] [] Out of room [] Palliative care [] [x] Receiving care in room [] Pre-surgical visit [] Trauma [] Long length of stay [] ICU visit [] Other: Relational/Emotional Strength [] Patient feels connected with others/family/visitors/staff [] Distress [] Loneliness/isolation [] Abandonment Spirituality of Patient [] Person of Eve [] Attends Faith of their Eve [] Believes in Prayer [] Reads Bible or Baptist materials [] There are Spiritual issues to be addressed Swimming Pool Service Technician Interventions [] Prayer [] Active listening [] Non-anxious presence [] Spiritual/emotional support [] Crisis/trauma care [] Spiritual counseling [] Bereavement support [] Provided bereavement packet [] Provided Bible/devotional materials [] Provided toy/stuffed animal, coloring book to patient or family member [] Provided Communion [] Anointing/Loyal [] Salvation [] Completed spiritual assessment [] Other: Impact on Illness or Injury [] Angry [] Fearful [] Anxious [] Often cries [] Exhaustion [] Unable to work [] Unable to attend cheondoism [] Unable to walk/stand [] Unable to read [] Unable to drive [] Unable to eat/drink [] Unable to sleep [] Unable to be with family [] Patient intubated [] Other: Summary Time spent with patient
--- NOTE | 2022-06-27 11:36 | PC.NURSE ---
Patient to surgery at this time.
--- NOTE | 2022-06-27 11:46 | W.PM.OPSUD ---
Surgery/Procedure H&P Update DATE OF PROCEDURE: June 27, 2022 DATE H&P PERFORMED: 06/26/22 CHANGES TO PREVIOUS DOCUMENTATION: None PREOP DIAGNOSIS: Worsening angina PLANNED PROCEDURE: Operation Date: 06/27/22 12:20 Proposed Procedures p Amputation Toe/s(Left) - Guero Ash DPM
[2022-06-27 11:51] LABS: Glucose Point of Care 197 mg/dL (70-110)
[2022-06-27] MEDS: HYDROmorphone 1 mg/mL INJ 1 mL 0.5 MG IVP (11:53)
[2022-06-27] MEDS: sodium chloride 0.9% 1,000 ML 30 ML IV (12:02)
--- NOTE | 2022-06-27 12:04 | PM.PN ---
Subjective Subjective: in OR Medications: Reviewed: Yes Vitals/I&O/Wt Last Vital Signs Temp 98.0 F 06/27/22 07:34 Pulse 71 06/27/22 09:39 Resp 18 06/27/22 11:53 BP 128/55 06/27/22 07:34 Pulse Ox 90 06/27/22 11:53 O2 Del Method 06/27/22 09:39 O2 Flow Rate 3 06/27/22 08:00 06/26/22 06/27/22 06/27/22 22:59 06:59 14:59 Intake Total 490 / 490 50 / 540 Output Total 150 / 150 Balance 340 / 340 50 / 390 Weight last 48 hrs Weight 119.295 kg Weight 119.295 kg Physical Exam Narrative: DEFERRED Data 06/27/22 05:50 06/27/22 05:50 Micro: Microbiology 06/26/22 13:00 Blood Culture - Preliminary Blood SPECIMEN COLLECTED 06/26/22 13:07 Blood Culture - Preliminary Blood SPECIMEN COLLECTED A&P Assessment and plan (1) ESRD on hemodialysis: Plan End-stage renal disease: On dialysis per MWF schedule, S/P HD yesterday ,plan for next hD in AM Hypertension: Blood pressure controlled, restart home meds Left foot gangrene: Surgery following, OR today for debridement Anemia: We will give Epogen Patient evaluated using audiovisual cart. Time spent 45 minutes Attestations Medical Necessity Statement*: More than 2 midnights anticipated Coding Level of Care Code Acute Code for Chg Fwd Diagnoses ESRD on hemodialysis N18.6; Z99.2
[2022-06-27] MEDS: lidocaine 2% INJ 20 mL INJECTION (12:05)
--- NOTE | 2022-06-27 12:33 | P.OP_ITS ---
Operative Report Date of procedure: June 27, 2022 Pre-op diagnosis: Gangrene left third toe Post-op diagnosis: Gangrene left third toe Procedure done: Left third toe amputation. CPT code 43510 Implants: None Pathology: Left third toe sent to pathology for gross Surgeon: Guero Ash D.P.M. Data Administrator: Marce Estimated blood loss: 5 No tourniquet IV fluids: None Urine output: None Complications: None Findings: Devitalized soft tissue and bone left third toe. Nonhealing wound left plantar midfoot. Plantar-grade foot, left. Brief History: Pleasant 77-year-old diabetic female on dialysis has had a rapid progression of a wound since Sunday to her left third toe that is progressed to foul-smelling, gangrenous appearing wound with exposed tendon and bone and soft tissue emphysema. Of note she has had a wound of her left foot at the plantar midfoot since 2015. Recommended left third toe amputation and surgical debridement patient is agreeable wishes to proceed. I reviewed at length with the patient, the risks, potential complications, benefits, alternatives, expectations, and typical outcomes associated with the surgery. The risks and potential complications were explained in detail, including but not limited to infection, wound dehiscence or soft tissue complications, bleeding and hematoma, chronic edema, neuritis or nerve damage producing numbness or chronic pain, CRPS, failure to relieve pain or worsening pain, thick / painful / unsightly scar, limited motion / stiffness, malposition, delayed union, malunion, or nonunion, fracture, reaction to implants, anesthetic complications, venous thromboembolism, and deformity recurrence. I discussed the notion of no regrets with the patient as it pertains to complications and outcomes. The patient seemed to understand the nature of the proposed care and required convalescence. They asked appropriate questions, answered to their satisfaction. They are aware no guarantees can be made as to a satisfactory outcome and they understand there may be other possible unforeseen complications or outcomes not listed here that will be treated accordingly if they arise. There were no written or implied guarantees given to the patient. They gave informed consent to proceed. Procedure: Under mild sedation the patient was brought to the operating room and remained on the gurney in supine position. A timeout was performed. Anesthesia was then administered by the anesthesia service. Local anesthesia was injected by myself consisting of 20 cc of 0.5% Marcaine and 1% lidocaine plain in a left third ray block fashion. Well-padded pneumatic tourniquet was applied to the left ankle. Left lower extremity was scrubbed, prepped and draped utilizing normal aseptic technique. Tourniquet was never inflated during the procedure. Attention was directed to the left third toe which had necrotic soft tissue and bone with foul-smelling odor and had dusky vogel appearance. There is no proximal lymphangitic streaking or proximal streaking cellulitis. A vertical fishmouth incision was performed full-thickness and the left third toe was disarticulated sharply through the metatarsal phalangeal joint passed from the operative field and sent to pathology for gross. The incision was irrigated with copious amounts of sterile saline solution. Extensor and flexor tendons transected under traction. All bleeders ligated and cauterized as necessary. Further irrigation was performed followed by dressing, wound was packed and left open saline wet-to-dry, Kerlix, ABD pad and Coban. Tourniquet was never utilized during the procedure. Patient tolerated the procedure and anesthesia well and was transferred to the PACU with vital signs stable and vascular status intact. Following a period of postop monitoring she will be transferred back to the floor to continue IV antibiotics.
--- NOTE | 2022-06-27 12:50 | PC.NURSE ---
bleeding noted to left foot dressing, Dr Ash notified, foot of bed elevated.
--- NOTE | 2022-06-27 12:51 | ANES.PREANE2 ---
Pre-Anesthetic Assessment Height/Weight: Height 1.7 m Weight 119.295 kg Temp Pulse Resp BP Pulse Ox O2 Del Method O2 Flow Rate 98.1 F 68 17 144/44 95 2 06/27/22 12:42 06/27/22 12:42 06/27/22 12:42 06/27/22 12:42 06/27/22 12:42 06/27/22 12:42 06/27/22 12:42 Preop Diagnosis: Worsening angina Operation Date: 06/27/22 12:20 Proposed Procedures p Amputation Toe/s(Left) - Guero Ash DPM Familial anesthetic complications: none Was Beta Akira taken within 24 hours: Yes Was Clonidine taken within 24 hours: Yes Last intake: Intake Last Liquid Date 06/27/22 Last Liquid Time 00:00 Last Solid Date 06/26/22 Last Solid Time 23:50 Social Tobacco and No alcohol Exam alert, oriented x 3 and regular rate & rhythm Airway Submandibular: within normal limits Cervical ROM: within normal limits Mallampati: Class II Dentition: false Pulmonary Chronic Obstructive Pulmonary Disease CV/HEM Anemia, Coronary Artery Disease (stent) and Hypertension Plavix Chronic Renal Failure Dialysis Metabolic Diabetes Mellitus, Hyperlipidemia and Morbid Obesity Neuropsych Anxiety, Depression and Neuropathy Anesthetic Plan ASA status: 3 Anesthesia: MAC Medications/Allergies Home Medications Medication Instructions Recorded Confirmed Last Taken Type acetaminophen 500 mg tablet 1,000 mg PO Q6H PRN Pain 04/07/22 06/26/22 06/26/22 History albuterol sulfate 90 mcg/actuation 2 puff inhalation Q6H PRN Wheezing 04/07/22 06/26/22 Unknown History aerosol inhaler (ProAir HFA) benzonatate 100 mg capsule 100 mg PO Q8H PRN Cough 04/07/22 06/26/22 Unknown History bimatoprost 0.01 % eye drops 1 drp ophthalmic (eye) BEDTIME 04/07/22 06/26/22 06/25/22 History (Pepe) budesonide 0.5 mg/2 mL suspension 0.5 mg inhalation Q12H 04/07/22 06/26/22 06/25/22 History for nebulization calcium alginate 2 X 2 bandage 04/07/22 06/26/22 Unknown History carbidopa 25 mg-levodopa 100 mg 2 tab PO TID 04/07/22 06/26/22 06/26/22 History tablet cholecalciferol (vitamin D3) 50 6,000 unit PO DAILY 04/07/22 06/26/22 06/26/22 History mcg (2,000 unit) capsule (Vitamin D3) clonidine HCl 0.3 mg tablet 0.3 mg PO Q8H PRN systolic bp >160 04/07/22 06/26/22 Unknown History cyclobenzaprine 5 mg tablet 5 mg PO Q8H PRN Muscle Spasm 04/07/22 06/26/22 06/26/22 History fluticasone propionate 115 2 puff inhalation BID 04/07/22 06/26/22 06/26/22 History mcg-salmeterol 21 mcg/actuation HFA inhaler (Advair HFA) furosemide 40 mg tablet (Lasix) 40 mg PO BID 04/07/22 06/26/22 06/26/22 History gabapentin 100 mg capsule 100 mg PO TID 04/07/22 06/26/22 06/26/22 History hydroxyzine HCl 25 mg tablet 25 mg PO Q8H PRN Itching 04/07/22 06/26/22 Unknown History hydroxyzine pamoate 25 mg capsule 25 mg PO QPM 04/07/22 06/26/22 06/25/22 History insulin aspart U-100 100 unit/mL See Rx Instructions .Route .COMPLEX 04/07/22 06/26/22 06/26/22 History (3 mL) subcutaneous pen (Novolog FlexPen U-100 Insulin aspart) insulin glargine 100 unit/mL (3 40 unit SUBCUT DAILY@06 04/07/22 06/26/22 06/26/22 History mL) subcutaneous pen (Lantus Solostar U-100 Insulin) ipratropium 0.5 mg-albuterol 3 mg 3 ml inhalation Q6H PRN Cough 04/07/22 06/26/22 Unknown History (2.5 mg base)/3 mL nebulization soln loperamide 2 mg tablet (Imodium 2 mg PO Q6H PRN Loose Stool 04/07/22 06/26/22 06/26/22 History A-D) losartan 50 mg tablet 50 mg PO BEDTIME 04/07/22 06/26/22 06/25/22 History menthol 4 % topical gel (Biofreeze See Rx Instructions .Route .COMPLEX 04/07/22 06/26/22 Unknown History (menthol)) metolazone 5 mg tablet 5 mg PO QAM 04/07/22 06/26/22 06/26/22 History metoprolol tartrate 100 mg tablet 100 mg PO BID 04/07/22 06/26/22 06/26/22 History mirtazapine 30 mg tablet 30 mg PO BEDTIME@21 04/07/22 06/26/22 06/25/22 History neomycin-bacitracn Zn-polymyx 3.5 See Rx Instructions .Route .COMPLEX 04/07/22 06/26/22 Unknown History mg-400 unit-5,000 unit/gram top oint (Neosporin (pxd-ttz-vonxa)) ondansetron HCl 4 mg tablet 4 mg PO Q8H PRN Nausea And Vomiting 04/07/22 06/26/22 Unknown History promethazine-DM 6.25 mg-15 mg/5 mL 5 ml PO Q4H PRN Cough 04/07/22 06/26/22 Unknown History oral syrup ropinirole 0.5 mg tablet 0.5 mg PO QPM 04/07/22 06/26/22 06/25/22 History sertraline 50 mg tablet 50 mg PO DAILY 04/07/22 06/26/22 06/26/22 History simvastatin 40 mg tablet 40 mg PO BEDTIME@21 04/07/22 06/26/22 06/25/22 History solifenacin 5 mg tablet 5 mg PO QAM 04/07/22 06/26/22 06/26/22 History thyroid (pork) 90 mg tablet 90 mg PO DAILY 04/07/22 06/26/22 06/26/22 History ([place] Thyroid) vitamin B complex and vitamin C 1 cap PO QPM 04/07/22 06/26/22 06/25/22 History no.20-folic acid 1 mg capsule (Renal Caps) diphenhydramine HCl 25 mg tablet 25 mg PO Q24H PRN Itching 05/14/22 06/26/22 Unknown History (Banophen) aspirin 81 mg tablet,delayed 81 mg PO DAILY #30 tabs 05/17/22 06/26/22 06/26/22 Rx release clopidogrel 75 mg tablet (Plavix) 75 mg PO QPM 30 days #30 tabs 05/17/22 06/26/22 06/25/22 Rx doxycycline hyclate 100 mg capsule 100 mg PO BID 14 days #28 caps 06/20/22 06/26/22 06/26/22 Rx oxycodone-acetaminophen 7.5 mg-325 1 tab PO Q6H PRN Pain 06/26/22 06/26/22 06/26/22 History mg tablet temazepam 7.5 mg capsule 7.5 mg PO BEDTIME 06/26/22 06/26/22 06/25/22 History Allergies Allergy/AdvReac Type Severity Reaction Status Date / Time sulfamethoxazole Allergy Rash Verified 06/26/22 14:10 [From Decra] trimethoprim [From Septra] Allergy Rash Verified 06/26/22 14:10 morphine AdvReac Personality Verified 06/26/22 14:10 Change pregabalin [From Lyrica] AdvReac Loopy/Unste Verified 06/26/22 14:10 anoop Current Medications Generic Name Dose Route Start Last Admin Trade Name Freq PRN Reason Stop Dose Admin Albuterol/Ipratropium 3 ml 06/26/22 15:05 06/27/22 09:39 Ipratropium-Albuterol 3 Ml Neb INHALATION 3 ml Q6H PRN Administration SHORTNESS OF BREATH Carbidopa/Levodopa 2 each 06/26/22 15:05 06/26/22 21:01 Carbidopa-Levodopa 25-100mg Tablet PO 2 each TID BILLIE Administration Gabapentin 100 mg 06/26/22 15:05 06/26/22 21:01 Gabapentin 100 Mg Capsule PO 100 mg TID BILLIE Administration Hydromorphone HCl 0.5 mg 06/27/22 11:41 06/27/22 11:53 Hydromorphone 1 Mg/Ml Inj 1 Ml IVP 0.5 mg ONCE PRN Administration For preop pain/anxiety Piperacillin Sod/Tazobactam 50 mls @ 12.5 mls/hr 06/26/22 17:00 06/27/22 03:07 Sod 3.375 gm/ Sodium Chloride IV Infused Q12H BILLIE Infusion Protocol Vancomycin HCl 1,000 mg/ 250 mls @ 250 mls/hr 06/26/22 21:00 06/26/22 22:14 Sodium Chloride IV Infused [id number]@2100 BILLIE Infusion Sodium Chloride 1,000 mls @ 30 mls/hr 06/27/22 11:45 06/27/22 12:02 Sodium Chloride 0.9% IV 06/28/22 11:44 30 mls/hr .Q24H [facility] Administration Insulin Glargine 40 unit 06/27/22 06:00 06/27/22 05:42 Insulin Glargine 100 Units/1 Ml SUBCUT Not Given DAILY@06 [facility] Insulin Human Lispro 0 unit 06/26/22 18:00 06/26/22 18:01 Insulin Lispro 100 Unit/1 Ml SUBCUT 8 unit TIDWM [facility] Administration Protocol Metoprolol Tartrate 100 mg 06/26/22 18:00 06/26/22 21:22 Metoprolol Tartrate 50 Mg Tablet PO 100 mg BID [facility] Administration Oxycodone HCl 7.5 mg 06/26/22 15:46 06/26/22 21:01 Oxycodone 5 Mg Ir Tab/Cap PO 7.5 mg Q6H PRN Administration MODERATE Pain PFSH Anesthesia Medical History Acute exacerbation of CHF (congestive heart failure) Anemia in chronic illness Bilateral lower extremity edema CAD (coronary artery disease) Charcot's joint of left foot Chest pain Chronic insomnia Chronic kidney disease Chronic renal insufficiency 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 COPD (chronic obstructive pulmonary disease) Diabetes mellitus type 2, insulin dependent Diabetic neuropathy Diabetic peripheral neuropathy associated with type 2 diabetes mellitus Elevated troponin ESRD (end stage renal disease) ESRD (end stage renal disease) Fibromyalgia Goals of care, counseling/discussion History of CVA (cerebrovascular accident) History of pulmonary embolism Hyperlipemia Hypertension Hyponatremia Hypothyroidism Influenza A Iron deficiency anemia Lumbar disc disease with radiculopathy MRSA bacteremia Neuropathy Parkinson disease Pneumonia Post laminectomy syndrome Pulmonary hypertension Sciatica associated with disorder of lumbosacral spine Stage 4 chronic renal impairment associated with type 2 diabetes mellitus Uncontrolled insulin dependent diabetes mellitus Vitamin D deficiency Surgical History History of colonoscopy 2020 Hx of cholecystectomy Hx of foot surgery Hx of hysterectomy S/P dialysis catheter insertion Family History Father CAD (coronary artery disease) Mother CAD (coronary artery disease) Diabetes Grandfather CAD (coronary artery disease) Diabetes Social History Smoking and tobacco status: former smoker Second hand smoke exposure: No Alcohol intake: current Alcohol intake frequency: holidays/special occasions only Alcohol type: hard liquor Data Anesthesia 06/27/22 05:50 06/27/22 05:50 Short CBC 06/26/22 06/27/22 Range/Units 13:07 05:50 WBC 15.5 H 9.3 (4.0-10.0) 10^3/uL Hgb 7.5 L 7.1 L (11.5-15.3) g/dL Hct 25.2 L 24.4 L (37.0-47.0) % MCV 98.8 101.2 H (81-99) fl Plt Count 349 309 (130-400) 10^3/cmm Neut % (Auto) 82.3 72.4 % Neut # (Auto) 12.71 H 6.74 (1.8-7.7) 10^3/uL BMP 06/26/22 06/27/22 13:07 05:50 Sodium 134 L 138 Potassium 4.2 4.0 Chloride 91 L 98 Carbon Dioxide 23 27 BUN 62 H 32 H Creatinine 4.8 H 3.1 H Glucose 208 H 126 H Calcium 8.6 8.9 Liver Function 06/26/22 Range/Units 13:07 Total Bilirubin 0.6 (0.15-1.2) mg/dL AST 20 (0-32) U/L ALT < 5 (0-33) U/L Alkaline Phosphatase 171 H (35-105) U/L Albumin 3.7 (3.5-5.2) g/dL Urine 06/26/22 Range/Units 15:25 Urine Color Yellow (Yellow) Urine Appearance Hazy A (CLEAR) Urine pH 5 (5-7) Ur Specific [place] 1.010 (1.005-1.030) Urine Protein 3+ H (Negative) Urine Glucose (UA) Norm (Normal) Urine Ketones Negative (Negative) Urine Nitrate Negative (Negative) Urine Bilirubin Neg (Negative) Ur Leukocyte Esterase 1+ H (Negative) Urine RBC 5-10 H (0-2) /hpf Urine WBC 5-10 H (0-5) /hpf Coags 06/27/22 05:50 C-Reactive Protein 211.8 H Microbiology 06/26/22 13:00 Blood Culture - Preliminary Blood SPECIMEN COLLECTED 06/26/22 13:07 Blood Culture - Preliminary Blood SPECIMEN COLLECTED Cardiac Studies: Echocardiogram 04/13/22 Echocardiogram Limited Views 05/14/22 Sestamibi Stress Test (Cardiology) 05/15/22
--- NOTE | 2022-06-27 12:56 | PC.NURSE ---
Dr Ash at bedside performing dressing change.
--- NOTE | 2022-06-27 12:59 | P.PN_ITS ---
Subjective Subjective: Awaiting surgical intervention today N.p.o. No overnight events Hemoglobin 7.1 Patient will need blood transfusion with dialysis Vitals/I&O/Wt Last Vital Signs Temp 98.1 F 06/27/22 12:42 Pulse 68 06/27/22 12:52 Resp 16 06/27/22 12:52 BP 133/44 06/27/22 12:52 Pulse Ox 95 06/27/22 12:52 O2 Del Method 06/27/22 12:52 O2 Flow Rate 2 06/27/22 12:52 06/26/22 06/27/22 06/27/22 22:59 06:59 14:59 Intake Total 490 / 490 50 / 540 300 / 300 Output Total 150 / 150 5 / 5 Balance 340 / 340 50 / 390 295 / 295 Weight last 48 hrs Weight 119.295 kg Weight 119.295 kg Physical Exam Narrative: Awake and alert Clinical signs of fluid overload 3+ edema of legs Pus coming out of her left plantar surface Left third toe gangrene is Right foot with callus Tunneled dialysis catheter right chest area Awake and alert Using bedside commode Awake and alert S1, S2 Abdomen soft Data 06/27/22 05:50 06/27/22 05:50 Micro: Microbiology 06/26/22 13:00 Blood Culture - Preliminary Blood SPECIMEN COLLECTED 06/26/22 13:07 Blood Culture - Preliminary Blood SPECIMEN COLLECTED A&P Assessment and plan (1) ESRD on hemodialysis: (2) Chronic ulcer of left foot with necrosis of muscle: (3) Cellulitis of left foot: (4) Gangrene of left foot: (5) Gas gangrene: (6) Charcot's joint of left foot: (7) Diarrhea: (8) Neuropathy: (9) Anemia of chronic disease: Plan Gas gangrene third toe: Going for surgical intervention today Anemia of chronic disease, will request 1 unit PRBC after surgery End-stage renal disease, d dialysis dependent, nephro consulted I will continue IV antibiotics until amputation Diabetic: She will need a renal diabetic diet She is full code DVT prophylaxis could be started 6 to 8 hours after surgery Disposition plan: She might need short-term rehab will assess with PT after surgery Recent stent placement for coronary artery disease, I will continue her aspirin and Plavix after surgery History of MRSA pneumonia she still has 2 more weeks for IV vancomycin History of PE not on anticoagulating agent History of Parkinson's without acute exacerbation Attestations Medical Necessity Statement*: Continue medical management Diagnoses ESRD on hemodialysis N18.6; Z99.2 Chronic ulcer of left foot with necrosis of muscle L97.523 Cellulitis of left foot L03.116 Gangrene of left foot I96 Gas gangrene A48.0 Charcot's joint of left foot M14.672 Diarrhea R19.7 Neuropathy G62.9 Anemia of chronic disease D63.8
[2022-06-27] MEDS: gabapentin 100 mg Capsule PO ×2 (14:12→20:42)
[2022-06-27] MEDS: carbidopa-levodopa 25-100mg Tablet 2 EACH PO ×2 (14:12→20:42)
[2022-06-27] MEDS: diphenhydrAMINE 25 mg Capsule PO (14:22)
--- NOTE | 2022-06-27 14:22 | ANE.PACU2 ---
Inpatient post-anesthesia follow up: Airway intact: Yes Vital signs: Temperature 98.1 F Pulse Rate 69 Respiratory Rate 17 Blood Pressure 114/85 Pulse Oximetry 93 Oxygen Delivery Me thod Nasal Cannula Oxygen Flow Rate 1 Fraction of Inspir ed Oxygen Hydration adequate: Yes Nausea and vomiting: No Pain level: 1 Mental status: Baseline
[2022-06-27] MEDS: piperacillin-tazobactam 3.375 GM in sodium chloride 0.9% (plus) 50 ML IV (15:34)
[2022-06-27] MEDS: sodium chloride 0.9% (100 ml) 100 ML 50 ML IV (16:11)
[2022-06-27] MEDS: oxyCODONE 5 mg IR Tab/Cap 7.5 MG PO ×2 (16:22→23:40)
[2022-06-27 17:49] LABS: Glucose Point of Care 156 mg/dL (70-110)
[2022-06-27] MEDS: insulin lispro 100 unit/1 mL SUBCUT (18:26)
[2022-06-27] MEDS: metoprolol tartrate 50 mg Tablet 100 MG PO (18:26)
[2022-06-27] MEDS: HYDROmorphone 1 mg/mL INJ 1 mL 0.2 MG IVP (20:47)
[2022-06-27 20:57] LABS: Glucose Point of Care 132 mg/dL (70-110)
[2022-06-28] VITALS (9 sets, daily range): BP systolic 103–169; BP diastolic 54–92; PULSE 62–81; RESP 16–19; TEMP 36.5–36.9; O2SAT 92–98
[2022-06-28] MEDS: insulin glargine 100 units/1 mL 40 UNIT SUBCUT (06:08)
[2022-06-28 06:11] LABS: Glucose Point of Care 149 mg/dL (70-110)
[2022-06-28 06:30] LABS: Basophils # 0.1 10^3/uL (0.0-0.1); Basophils % 0.7 %; Eosinophils # 0.4 10^3/uL (0.0-0.8); Eosinophils % 3.6 %; Hemoglobin 7.9 g/dL (11.5-15.3); Lymphocytes # 1.8 10^3/uL (0.8-4.8); Lymphocytes % 16.5 %; Mean Corpuscular HGB Conc 29.3 g/dL (30.0-36.0); Mean Corpuscular Hemoglobin 30.5 pg (28.0-34.0); Mean Corpuscular Volume 104.2 fl (81-99); Monocytes % 9.1 %; Neutrophils # 7.41 10^3/uL (1.8-7.7); Neutrophils % 69.3 %; Nucleated Red Blood Cells % 0 %; Platelet Count 357 10^3/cmm (130-400); Red Blood Count 2.59 10^6/uL (4.1-5.3); Red Cell Distribution Width 18.6 % (12.1-15.1); White Blood Count 10.7 10^3/uL (4.0-10.0)
--- NOTE | 2022-06-28 06:45 | PM.PN ---
Subjective Subjective: Patient seen bedside this morning, she is 1 day status post left third toe amputation secondary to wet gangrene. No strikethrough bleeding at the surgical dressings. Patient reports improved pain since her surgery. Patient is requesting a higher level of amputation that is out of my scope of practice. She is interested in a amputation of her left leg. She has had a family meeting with her 2 daughters who were present yesterday, both the patient and her daughters are insistent that a higher level of amputation would yield a better quality of life due to having pain and a persistent wound since 2016. Patient denies any subjective nausea, vomiting, fever, chills, shortness of breath or chest pain. Vitals/I&O/Wt Last Vital Signs Temp 98.1 F 06/28/22 04:36 Pulse 70 06/28/22 04:36 Resp 19 H 06/28/22 04:36 BP 147/67 06/28/22 04:36 Pulse Ox 93 06/28/22 04:36 O2 Del Method 06/27/22 22:00 O2 Flow Rate 3 06/27/22 13:21 06/27/22 06/27/22 06/28/22 14:59 22:59 06:59 Intake Total 350 / 350 860 / 1210 120 / 1330 Output Total 5 / 5 Balance 345 / 345 860 / 1205 120 / 1325 Weight last 48 hrs Weight 256 lb 2.834 oz Weight 263 lb Weight 263 lb Physical Exam Narrative: Patient is alert and oriented ?3 and in no acute distress.? The following is a focused bilateral lower extremity exam.? Accompanied by her daughter ambulates without assistance. VASCULAR: Dorsalis pedis +2 bilaterally.? Posterior tibial arteries +1 bilaterally.? Capillary refill time less than 5 seconds to the distal hallux bilaterally. Calf is supple and nontender proximally and distally.? Decreased pedal hair growth bilaterally +1 pitting edema to the lower extremities tested at the lower one third of the anterior tibial crest. NEUROLOGICAL: Protective sensation intact 0/10 sites, tested with [place] Mar[place]armen monofilament to bilateral feet. DERMATOLOGICAL: No strikethrough bleeding at surgical dressing. Mild erythema at the lower one third of the left leg without proximal lymphangitic streaking. MUSCULOSKELETAL status post left third toe amputation. Also history of left second toe amputation. Left foot is not plantar-grade. She has a rocker-bottom foot type with apex of the deformity communicating to her plantar foot wound. She also has a externally rotated and abducted foot. Data 06/28/22 06:19 06/27/22 05:50 Micro: Microbiology 06/26/22 13:00 Blood Culture - Preliminary Blood NEGATIVE TO DATE 06/26/22 13:07 Blood Culture - Preliminary Blood NEGATIVE TO DATE A&P Assessment and plan (1) Cellulitis of left foot: (2) Gas gangrene: (3) Acute kidney injury superimposed on CKD: (4) Diabetic peripheral neuropathy associated with type 2 diabetes mellitus: (5) Chronic pain in left foot: (6) Acquired pes planovalgus of left foot: (7) Left rocker-bottom foot: Plan [id number] diabetic female with end-stage disease, dialysis 3X weekly. Has had a nonhealing wound since 2016 left foot and a progression of her left foot deformity. Presented with wet gangrene to the left third toe and is status post left third toe amputation performed 06/27/2022. Patient is requesting a higher level of amputation that is out of my scope of practice of the left lower extremity. Recommended surgical consultation with hospitalist, consultation pending. I think that a higher level amputation is reasonable, patient is motivated to have this done during this hospitalization. She had 2 daughters present yesterday that were also in agreements that a higher level of amputation is in her best interest. This is something that she brought to my attention and hopes that this could be performed, states that she is no longer wishing to endure the pain that she experiences daily associate with her left foot deformity and recalcitrant wound. She has a history of left ankle fracture with retained hardware. She has a history of reconstructive forefoot surgery that was done in [place]. Has hardware from first and second tarsometatarsal fusion. She has had major collapse with arthrosis and sagittal plane deformity of her naviculocuneiform joint resulting in a rocker-bottom deformity that corresponds to her area of wound has been nonhealing since 2016. She also has an impressive transverse plane deformity on the forefoot to rear foot, both rocker-bottom and transverse plane deformities are nonreducible. She has never healed her left plantar wound since 2016, the idea of a reconstructive surgery would not be advised in the presence of a wound. Patient requesting a higher level of amputation and I think this is reasonable given her foot that is not plantar-grade. Higher level of amputation is out of my scope of practice and will be referred to surgeon on-call. Attestations Medical Necessity Statement*: Diabetic foot infection. Coding Level of Care Code Acute Code for [facility] Fwd Diagnoses Cellulitis of left foot L03.116 Gas gangrene A48.0 Acute kidney injury superimposed on CKD N17.9; N18.9 Diabetic peripheral neuropathy associated with type 2 diabetes mellitus E11.42 Chronic pain in left foot M79.672; G89.29 Acquired pes planovalgus of left foot M21.42 Left rocker-bottom foot Q66.82
[2022-06-28 06:54] LABS: Anion Gap 20.1 (5-19); Blood Urea Nitrogen 52 mg/dL (8-23); Calcium 8.8 mg/dL (8.5-10.5); Carbon Dioxide 23 mmol/L (22-29); Chloride 99 mmol/L (98-107); Glucose 133 mg/dL (65-115); Osmolality Calculated 302 mOsm/kg (285-295); Potassium 4.1 mmol/L (3.5-5.1); Sodium 138 mmol/L (136-145)
--- NOTE | 2022-06-28 09:30 | PC.HD ---
Patient c/o 9/10 L foot pain prior to dialysis start; however, due to dialyzability of pain medications, patient has opted to try to wait to receive pain medication. She is aware that she can request this at any time. Also, hospitalist came into dialysis room as patient began eating breakfast, and informed patient that he just made her NPO. Approximately 15-20% of patient's meal was consumed, and tray was removed promptly. Patient voiced understanding.
--- NOTE | 2022-06-28 09:31 | XRR_ITS ---
PROCEDURE INFORMATION: Exam: XR Left Foot Exam date and time: 06/29/2022 5:13 PM Age: 77 years old Clinical indication: Device placement; Other: Joint amputation; Prior surgery; Surgery date: Post-operative (0-2 days); Additional info: Postop third toe amputation, PT in dialysis, nurse will call when she is ready TECHNIQUE: Imaging protocol: Radiologic exam of the left foot. Views: 1 or 2 views. COMPARISON: CT foot LT w con [id number] 06/26/2022 2:58 PM FINDINGS: Bones/joints: The bones are osteopenic. Complete collapse of the plantar arch is again and partial fusion of the midfoot joints is again seen. New amputation of the 3rd toe noted. Previous amputation of the 2nd toe re-identified. No acute fracture or dislocation seen. Stable appearance of fixation plates and screws involving the first and second metatarsal-cuneiform joints and distal fibula. There is diffuse swelling of the soft tissues and irregularity about the inferomedial aspect of the foot, consistent with history of ulceration. Soft tissues: See Bones/joints finding. XR/XR foot LT 2V [id number] IMPRESSION: 1. Status post recent amputation of the 3rd toe. 2. Stable appearance of fusion hardware in the medial foot and distal fibula. No evidence of hardware related complication. 3. Unchanged degenerative changes and collapse the plantar arch.
--- NOTE | 2022-06-28 10:06 | P.PN_ITS ---
Subjective Subjective: geting HD Medications: Reviewed: Yes Vitals/I&O/Wt Last Vital Signs Temp 98.4 F 06/28/22 09:27 Pulse 72 06/28/22 09:27 Resp 16 06/28/22 09:27 BP 153/57 06/28/22 09:27 Pulse Ox 92 06/28/22 08:00 O2 Del Method 06/28/22 08:00 O2 Flow Rate 3 06/27/22 13:21 06/27/22 06/28/22 06/28/22 22:59 06:59 14:59 Intake Total 860 / 1210 120 / 1330 0 / 0 Balance 860 / 1205 120 / 1325 0 / 0 Weight last 48 hrs Weight 116.2 kg Weight 119.295 kg Weight 119.295 kg Physical Exam Narrative: awake , alert , no acute distress HEENT S1 S2 RRR per report Clear jennie per report Data 06/28/22 06:19 06/28/22 06:19 Micro: Microbiology 06/26/22 13:00 Blood Culture - Preliminary Blood NEGATIVE TO DATE 06/26/22 13:07 Blood Culture - Preliminary Blood NEGATIVE TO DATE A&P Assessment and plan (1) ESRD on hemodialysis: Plan End-stage renal disease: On dialysis per MWF schedule, HD today Hypertension: Blood pressure controlled, restarted home meds Left foot gangrene: Surgery following, s/p OR yesterday Anemia: We will give Epogen Patient evaluated using audiovisual cart. Time spent 45 minutes Attestations Medical Necessity Statement*: Diabetic foot infection. Coding Level of Care Code Acute Code for [facility] Fwd Diagnoses ESRD on hemodialysis N18.6; Z99.2
--- NOTE | 2022-06-28 11:33 | P.PN_ITS ---
Subjective Subjective: Was in dialysis when I evaluated her No active pain She was eating breakfast when I told her that we will make her n.p.o. today Asked Dr. Schuster to evaluate her for below-knee amputation Vitals/I&O/Wt Last Vital Signs Temp 98.4 F 06/28/22 09:27 Pulse 72 06/28/22 09:27 Resp 16 06/28/22 09:27 BP 153/57 06/28/22 09:27 Pulse Ox 92 06/28/22 08:00 O2 Del Method 06/28/22 08:00 O2 Flow Rate 3 06/28/22 08:00 06/27/22 06/28/22 06/28/22 22:59 06:59 14:59 Intake Total 860 / 1210 120 / 1330 0 / 0 Balance 860 / 1205 120 / 1325 0 / 0 Weight last 48 hrs Weight 116.2 kg Weight 119.295 kg Weight 119.295 kg Physical Exam Narrative: Patient was eating breakfast No active pain Getting dialyzed Abdomen distended however soft Postoperative wound no active drainage Chronic edema of legs Awake and alert Pleasant and cooperative S1, S2 Currently on 3 L nasal cannula Data 06/28/22 06:19 06/28/22 06:19 Micro: Microbiology 06/26/22 13:00 Blood Culture - Preliminary Blood NEGATIVE TO DATE 06/26/22 13:07 Blood Culture - Preliminary Blood NEGATIVE TO DATE A&P Assessment and plan (1) Left rocker-bottom foot: (2) Acquired pes planovalgus of left foot: (3) Chronic pain in left foot: (4) Diabetic peripheral neuropathy associated with type 2 diabetes mellitus: (5) Anemia of chronic disease: (6) ESRD on hemodialysis: (7) Chronic ulcer of left foot with necrosis of muscle: (8) Gangrene of left foot: (9) Gas gangrene: Plan Left foot wet/gas gangrene Diabetic foot ulcer Charcot foot This post left third toe amputation secondary to wet gangrene Orthopedics consulted for below-knee amputation evaluation Continue IV antibiotics until surgery spoke with Dr. Schuster this morning End-stage renal disease, nephro on board Recent hospitalization notable for PCI, holding Plavix for now continue aspirin and atorvastatin Recent PCI to RCA Patient has history of MRSA pneumonia she still has 2 more weeks to finish IV antibiotics History of failure of left AV fistula, currently getting dialyzed through right tunneled dialysis catheter Parkinson's without acute exacerbation History of PE without he is on chronic anticoagulating agent secondary to c hronic anemia Anemia of chronic disease: Stable Full code N.p.o. Attestations Medical Necessity Statement*: Continue medical management Diagnoses Left rocker-bottom foot Q66.82 Acquired pes planovalgus of left foot M21.42 Chronic pain in left foot M79.672; G89.29 Diabetic peripheral neuropathy associated with type 2 diabetes mellitus E11.42 Anemia of chronic disease D63.8 ESRD on hemodialysis N18.6; Z99.2 Chronic ulcer of left foot with necrosis of muscle L97.523 Gangrene of left foot I96 Gas gangrene A48.0
--- NOTE | 2022-06-28 11:52 | PC.CHAP ---
Pastoral Care Encounter/Spiritual Assessment Type of Contact [] Declined painter aircraft visit [] Patient/Family/Request visit [] Outpatient visit [] Follow-up visit [] Physician referral [] Code/Alert [x] Routine visit [] Staff referral [] Actively dying [] Patient sleeping [] Family support [] [x] Out of room [] Palliative care [] [] Receiving care in room [] Pre-surgical visit [] Trauma [] Long length of stay [] ICU visit [] Other: Relational/Emotional Strength [] Patient feels connected with others/family/visitors/staff [] Distress [] Loneliness/isolation [] Abandonment Spirituality of Patient [] Person of Eve [] Attends Advent of their Eve [] Believes in Prayer [] Reads Bible or Presybeterian materials [] There are Spiritual issues to be addressed [employer]inator [employer] Interventions [] Prayer [] Active listening [] Non-anxious presence [] Spiritual/emotional support [] Crisis/trauma care [] Spiritual counseling [] Bereavement support [] Provided bereavement packet [] Provided Bible/devotional materials [] Provided toy/stuffed animal, coloring book to patient or family member [] Provided Communion [] Anointing/[place] [] Salvation [] Completed spiritual assessment [] Other: Impact on Illness or Injury [] Angry [] Fearful [] Anxious [] Often cries [] Exhaustion [] Unable to work [] Unable to attend sabianism [] Unable to walk/stand [] Unable to read [] Unable to drive [] Unable to eat/drink [] Unable to sleep [] Unable to be with family [] Patient intubated [] Other: Summary Time spent with patient x
[2022-06-28] MEDS: HYDROmorphone 1 mg/mL INJ 1 mL 0.2 MG IVP (11:58)
[2022-06-28] MEDS: gabapentin 100 mg Capsule PO ×2 (15:41→21:42)
[2022-06-28] MEDS: carbidopa-levodopa 25-100mg Tablet 2 EACH PO ×2 (15:41→21:42)
[2022-06-28] MEDS: piperacillin-tazobactam 3.375 GM in sodium chloride 0.9% (plus) 50 ML IV (15:41)
[2022-06-28 16:46] LABS: Glucose Point of Care 139 mg/dL (70-110)
[2022-06-28] MEDS: metoprolol tartrate 50 mg Tablet 100 MG PO (17:34)
--- NOTE | 2022-06-28 19:34 | P.CONIM_ITS ---
Providers/Reason For Consult Consulting Physician/Specialty*: Joselo Schuster MD; orthopedic surgery Reason for Consult*: Nonhealing wound left foot Attending Physician: Gonzalo Loaiza MD Primary Care Provider: Brandi Escalera MD History of Present Illness History of Present Illness Meghna Chaudhari is a 77 year old female long history of bilateral lower extremity ulcerations. She describes collapsing of the arches of both feet in 2016 and having problems with ulcerations on the plantar aspect of the left foot more so than the right since. She describes multiple courses of antibiotics with the wound never entirely healing on the left foot. She previously underwent amputation of her second toe. She states this past Sunday she developed wound over the tip of her third toe. She was under the care of wound clinic and was referred to the emergency room. On 04/26/2023 Dr. Ash performed a third toe amputation. The patient states that she had concerns about the ulceration of her and her left foot at the time but underwent toe amputation in any event. She states she is frustrated with the failure of her left foot wound to heal. She is nonambulatory in a wheelchair and she states it is resulted in multiple hospitalizations. She is looking for definitive surgery and now wishes a left below-knee amputation. I have asked to see the patient for consideration of a left below-knee amputation. She has a smaller wound on the right foot which has done better. She is hoping with a prosthesis on the left that she can regain some ambulatory status Medications/Allergies Home Medications Medication Instructions Recorded Confirmed Last Taken Type acetaminophen 500 mg tablet 1,000 mg PO Q6H PRN Pain 04/07/22 06/26/22 06/26/22 History albuterol sulfate 90 mcg/actuation 2 puff inhalation Q6H PRN Wheezing 04/07/22 06/26/22 Unknown History aerosol inhaler (ProAir HFA) benzonatate 100 mg capsule 100 mg PO Q8H PRN Cough 04/07/22 06/26/22 Unknown History bimatoprost 0.01 % eye drops 1 drp ophthalmic (eye) BEDTIME 04/07/22 06/26/22 06/25/22 History ([place]igan) budesonide 0.5 mg/2 mL suspension 0.5 mg inhalation Q12H 04/07/22 06/26/22 06/25/22 History for nebulization calcium alginate 2 X 2 bandage 04/07/22 06/26/22 Unknown History carbidopa 25 mg-levodopa 100 mg 2 tab PO TID 04/07/22 06/26/22 06/26/22 History tablet cholecalciferol (vitamin D3) 50 6,000 unit PO DAILY 04/07/22 06/26/22 06/26/22 History mcg (2,000 unit) capsule (Vitamin D3) clonidine HCl 0.3 mg tablet 0.3 mg PO Q8H PRN systolic bp >160 04/07/22 06/26/22 Unknown History cyclobenzaprine 5 mg tablet 5 mg PO Q8H PRN Muscle Spasm 04/07/22 06/26/22 06/26/22 History fluticasone propionate 115 2 puff inhalation BID 04/07/22 06/26/22 06/26/22 History mcg-salmeterol 21 mcg/actuation HFA inhaler (Advair HFA) furosemide 40 mg tablet (Lasix) 40 mg PO BID 04/07/22 06/26/22 06/26/22 History gabapentin 100 mg capsule 100 mg PO TID 04/07/22 06/26/22 06/26/22 History hydroxyzine HCl 25 mg tablet 25 mg PO Q8H PRN Itching 04/07/22 06/26/22 Unknown History hydroxyzine pamoate 25 mg capsule 25 mg PO QPM 04/07/22 06/26/22 06/25/22 History insulin aspart U-100 100 unit/mL See Rx Instructions .Route .COMPLEX 04/07/22 06/26/22 06/26/22 History (3 mL) subcutaneous pen (Novolog FlexPen U-100 Insulin aspart) insulin glargine 100 unit/mL (3 40 unit SUBCUT DAILY@06 04/07/22 06/26/22 06/26/22 History mL) subcutaneous pen (Lantus Solostar U-100 Insulin) ipratropium 0.5 mg-albuterol 3 mg 3 ml inhalation Q6H PRN Cough 04/07/22 06/26/22 Unknown History (2.5 mg base)/3 mL nebulization soln loperamide 2 mg tablet (Imodium 2 mg PO Q6H PRN Loose Stool 04/07/22 06/26/22 06/26/22 History A-D) losartan 50 mg tablet 50 mg PO BEDTIME 04/07/22 06/26/22 06/25/22 History menthol 4 % topical gel (Biofreeze See Rx Instructions .Route .COMPLEX 04/07/22 06/26/22 Unknown History (menthol)) metolazone 5 mg tablet 5 mg PO QAM 04/07/22 06/26/22 06/26/22 History metoprolol tartrate 100 mg tablet 100 mg PO BID 04/07/22 06/26/22 06/26/22 History mirtazapine 30 mg tablet 30 mg PO BEDTIME@21 04/07/22 06/26/22 06/25/22 History neomycin-bacitracn Zn-polymyx 3.5 See Rx Instructions .Route .COMPLEX 04/07/22 06/26/22 Unknown History mg-400 unit-5,000 unit/gram top oint (Neosporin (ovd-uxn-kwrah)) ondansetron HCl 4 mg tablet 4 mg PO Q8H PRN Nausea And Vomiting 04/07/22 06/26/22 Unknown History promethazine-DM 6.25 mg-15 mg/5 mL 5 ml PO Q4H PRN Cough 04/07/22 06/26/22 Unknown History oral syrup ropinirole 0.5 mg tablet 0.5 mg PO QPM 04/07/22 06/26/22 06/25/22 History sertraline 50 mg tablet 50 mg PO DAILY 04/07/22 06/26/22 06/26/22 History simvastatin 40 mg tablet 40 mg PO BEDTIME@21 04/07/22 06/26/22 06/25/22 History solifenacin 5 mg tablet 5 mg PO QAM 04/07/22 06/26/22 06/26/22 History thyroid (pork) 90 mg tablet 90 mg PO DAILY 04/07/22 06/26/22 06/26/22 History ([place] Thyroid) vitamin B complex and vitamin C 1 cap PO QPM 04/07/22 06/26/22 06/25/22 History no.20-folic acid 1 mg capsule (Renal Caps) diphenhydramine HCl 25 mg tablet 25 mg PO Q24H PRN Itching 05/14/22 06/26/22 Unknown History (Banophen) aspirin 81 mg tablet,delayed 81 mg PO DAILY #30 tabs 05/17/22 06/26/22 06/26/22 Rx release clopidogrel 75 mg tablet (Plavix) 75 mg PO QPM 30 days #30 tabs 05/17/22 06/26/22 06/25/22 Rx doxycycline hyclate 100 mg capsule 100 mg PO BID 14 days #28 caps 06/20/22 06/26/22 06/26/22 Rx oxycodone-acetaminophen 7.5 mg-325 1 tab PO Q6H PRN Pain 06/26/22 06/26/22 06/26/22 History mg tablet temazepam 7.5 mg capsule 7.5 mg PO BEDTIME 06/26/22 06/26/22 06/25/22 History Allergies Allergy/AdvReac Type Severity Reaction Status Date / Time sulfamethoxazole Allergy Rash Verified 06/26/22 14:10 [From ] trimethoprim [From Septra] Allergy Rash Verified 06/26/22 14:10 morphine AdvReac Personality Verified 06/26/22 14:10 Change pregabalin [From Lyrica] AdvReac Loopy/Unste Verified 06/26/22 14:10 anoop Current Medications Generic Name Dose Route Start Last Admin Trade Name Freq PRN Reason Stop Dose Admin Albuterol/Ipratropium 3 ml 06/26/22 15:05 06/27/22 09:39 Ipratropium-Albuterol 3 Ml Neb INHALATION 3 ml Q6H PRN Administration SHORTNESS OF BREATH Aspirin 81 mg 06/27/22 09:00 06/28/22 10:10 Aspirin 81 Mg Ec Tablet PO Not Given DAILY BILLIE Budesonide 0.5 mg 06/27/22 20:00 06/28/22 08:18 Budesonide 0.5 Mg/2 Ml Neb INHALATION Not Given BID.RESPIRATORY BILLIE Carbidopa/Levodopa 2 each 06/26/22 15:05 06/28/22 15:41 Carbidopa-Levodopa 25-100mg Tablet PO 2 each TID BILLIE Administration Clopidogrel Bisulfate 75 mg 06/28/22 09:00 06/28/22 09:56 Clopidogrel 75 Mg Tablet PO Not Given QPM BILLIE Gabapentin 100 mg 06/26/22 15:05 06/28/22 15:41 Gabapentin 100 Mg Capsule PO 100 mg TID BILLIE Administration Hydromorphone HCl 0.2 mg 06/26/22 19:13 06/28/22 11:58 Hydromorphone 1 Mg/Ml Inj 1 Ml IVP 0.2 mg Q4H PRN Administration SEVERE pain Piperacillin Sod/Tazobactam 50 mls @ 12.5 mls/hr 06/26/22 17:00 06/28/22 15:41 Sod 3.375 gm/ Sodium Chloride IV 12.5 mls/hr Q12H BILLIE Administration Protocol Vancomycin HCl 1,000 mg/ 250 mls @ 250 mls/hr 06/26/22 21:00 06/26/22 22:14 Sodium Chloride IV Infused [id number] [facility] Infusion Insulin Glargine 40 unit 06/27/22 06:00 06/28/22 06:08 Insulin Glargine 100 Units/1 Ml SUBCUT 40 unit DAILY@06 [facility] Administration Insulin Human Lispro 0 unit 06/26/22 18:00 06/28/22 17:27 Insulin Lispro 100 Unit/1 Ml SUBCUT Not Given TIDWM [facility] Protocol Metoprolol Tartrate 100 mg 06/26/22 18:00 06/28/22 17:34 Metoprolol Tartrate 50 Mg Tablet PO 100 mg BID BILLIE Administration Oxycodone HCl 7.5 mg 06/26/22 15:46 06/27/22 23:40 Oxycodone 5 Mg Ir Tab/Cap PO 7.5 mg Q6H PRN Administration MODERATE Pain PFSH Acute 2 PFSH: Medical History (Updated 06/28/22 @ 19:44 by Joselo Schuster MD) Acute exacerbation of CHF (congestive heart failure) Anemia in chronic illness Bilateral lower extremity edema CAD (coronary artery disease) Charcot's joint of left foot Chest pain Chronic insomnia Chronic kidney disease Chronic renal insufficiency 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 COPD (chronic obstructive pulmonary disease) Diabetes mellitus type 2, insulin dependent Diabetic neuropathy Elevated troponin ESRD (end stage renal disease) ESRD (end stage renal disease) Fibromyalgia Goals of care, counseling/discussion History of CVA (cerebrovascular accident) History of pulmonary embolism Hyperlipemia Hypertension Hyponatremia Hypothyroidism Influenza A Iron deficiency anemia Lumbar disc disease with radiculopathy MRSA bacteremia Neuropathy Parkinson disease Pneumonia Post laminectomy syndrome Pulmonary hypertension Sciatica associated with disorder of lumbosacral spine Stage 4 chronic renal impairment associated with type 2 diabetes mellitus Uncontrolled insulin dependent diabetes mellitus Vitamin D deficiency Surgical History History of colonoscopy 2020 Hx of cholecystectomy Hx of foot surgery Hx of hysterectomy S/P dialysis catheter insertion Family History Father CAD (coronary artery disease) Mother CAD (coronary artery disease) Diabetes Grandfather CAD (coronary artery disease) Diabetes Social History Smoking and tobacco status: former smoker Second hand smoke exposure: No Alcohol intake: current Alcohol intake frequency: holidays/special occasions only Alcohol type: hard liquor Vitals/I&O/Wt Last Vital Signs Temp 98.4 F 06/28/22 19:14 Pulse 62 06/28/22 19:14 Resp 17 06/28/22 19:14 BP 103/54 06/28/22 19:14 Pulse Ox 92 06/28/22 19:14 O2 Del Method 06/28/22 08:00 O2 Flow Rate 3 06/28/22 08:00 06/28/22 06/28/22 06/28/22 06:59 14:59 22:59 Intake Total 120 / 1330 300 / 300 Output Total 3300 / 3300 Balance 120 / 1325 -3000 / -3000 Weight last 48 hrs Weight 252 lb 10.396 oz Weight 256 lb 2.834 oz Physical Exam Narrative: Examination the patient is a heavyset female supine in bed no obvious distress. She is alert and oriented and seems to have a good understanding of the condition of her feet. She has a planovalgus deformity of the left foot with absent second and third toes. There is a wound present about the third toe consistent with previous surgery. Over the plantar medial aspect of her midfoot there is a ulceration approximately 3 cm in diameter with a necrotic base. Her leg is warm from the level of the knee proximal. She has diminished sensation in the foot but is hypersensitive to touch from approximately mid leg to the level of the ankle. She has a planovalgus deformity of the right foot with a small medial ulceration over the midfoot which appears to be clean. Data 06/28/22 06:19 06/28/22 06:19 Other data: Radiographs of the left foot are reviewed. She has previous plates across the first and second metatarsal cuneiform articulations. She has collapse of her midfoot. The incidental plate is seen over the fibula. CT report of the left foot is reviewed dated 06/26/2022. The patient is noted to have subcutaneous gas about the base of the third proximal phalanx suggestive of infection. A&P Assessment and plan (1) Charcot's joint of left foot: (2) Diabetic ulcer of left foot: Fara has a large plantar wound which is failed to heal after years of treatment. She is not on ambulatory and this is resulted in multiple hospitalizations and prolonged medical care. She is interested in below-knee amputation and I would agree that would be the most appropriate course. We could hopefully get a healing transtibial amputation that we could fit with a prosthesis and at least allow her to transfer if not resume some ambulatory status. I made her aware that there is no assurances this would heal and further procedures to be warranted. I discussed risk of bleeding and infection and the possible need for further procedures. She understands all these and seemed to understand treatment alternatives. We will set her up for surgery tomorrow. Coding Level of Care Code Acute Code for [facility] Diagnoses Charcot's joint of left foot M14.672 Diabetic ulcer of left foot E11.621; L97.529
[2022-06-28] MEDS: budesonide 0.5 mg/2 mL Neb INHALATION (20:31)
[2022-06-28 21:19] LABS: Glucose Point of Care 163 mg/dL (70-110)
[2022-06-28] MEDS: vancomycin 1,000 MG in sodium chloride 0.9% 250 ML 250 MG IV (21:42)
[2022-06-28] MEDS: oxyCODONE 5 mg IR Tab/Cap 7.5 MG PO (21:42)
[2022-06-29] VITALS (26 sets, daily range): BP systolic 115–177; BP diastolic 44–80; PULSE 62–105; RESP 16–27; TEMP 36.3–37; O2SAT 89–98
[2022-06-29] MEDS: HYDROmorphone 1 mg/mL INJ 1 mL 0.2 MG IVP ×4 (02:22→21:57)
[2022-06-29] MEDS: piperacillin-tazobactam 3.375 GM in sodium chloride 0.9% (plus) 50 ML IV ×2 (04:07→16:31)
[2022-06-29 05:18] LABS: Hematocrit 28.3 % (37.0-47.0); Hemoglobin 8.3 g/dL (11.5-15.3); Mean Corpuscular HGB Conc 29.3 g/dL (30.0-36.0); Mean Corpuscular Hemoglobin 28.9 pg (28.0-34.0); Mean Corpuscular Volume 98.6 fl (81-99); Mean Platelet Volume 9.7 fL (7.4-10.4); Platelet Count 385 10^3/cmm (130-400); Red Blood Count 2.87 10^6/uL (4.1-5.3); Red Cell Distribution Width 17.5 % (12.1-15.1); White Blood Count 9.8 10^3/uL (4.0-10.0)
[2022-06-29 05:47] LABS: Anion Gap 19.3 (5-19); Blood Urea Nitrogen 28 mg/dL (8-23); Carbon Dioxide 24 mmol/L (22-29); Chloride 98 mmol/L (98-107); Glucose 124 mg/dL (65-115); Osmolality Calculated 293 mOsm/kg (285-295); Potassium 3.3 mmol/L (3.5-5.1); Sodium 138 mmol/L (136-145)
[2022-06-29 06:11] LABS: Glucose Point of Care 131 mg/dL (70-110)
[2022-06-29 06:17] LABS: Absolute Segmented Neutrophil 6.1 10/cmm (1.6-7.1); Lymphocytes 8 %; Monocytes Absolute 0.4 10^3/cmm (0.1-0.6); Total Cells Counted 100 (0-100)
[2022-06-29 06:18] LABS: Absolute Eosinophils 0.5 10^3/cmm (0.0-0.7); Absolute Neutrophil 6.1 10^3/cmm (1.4-6.5); Eosinophils 6 %; Lymphocytes Absolute 2.4 10^3/cmm (1.2-3.4); Macrocytosis 1+; Platelet Estimate Normal (Normal); Polychromasia 1+
[2022-06-29 06:19] LABS: Segmented Neutrophils 62 %
--- NOTE | 2022-06-29 08:47 | PM.PN ---
Subjective Subjective: s/p HD yesterday Medications: Reviewed: Yes Vitals/I&O/Wt Last Vital Signs Temp 98.3 F 06/29/22 08:00 Pulse 75 06/29/22 08:00 Resp 16 06/29/22 08:00 BP 161/72 06/29/22 08:00 Pulse Ox 97 06/29/22 08:00 O2 Del Method 06/28/22 20:32 O2 Flow Rate 3 06/28/22 08:00 06/28/22 06/29/22 06/29/22 22:59 06:59 14:59 Intake Total 300 / 600 240 / 840 50 / 50 Balance 300 / -2700 240 / -2460 50 / 50 Weight last 48 hrs Weight 114.6 kg Physical Exam Narrative: awake , alert , no acute distress HEENT S1 S2 RRR per report Clear jennie per report Data 06/29/22 04:54 06/29/22 04:54 A&P Assessment and plan (1) ESRD on hemodialysis: Plan End-stage renal disease: On dialysis per MWF schedule, HD tomorrow Hypertension: Blood pressure controlled, restarted home meds Left foot gangrene: Surgery following, s/p OR yesterday Anemia: We will give Epogen Patient evaluated using audiovisual cart. Time spent 30 minutes Attestations Medical Necessity Statement*: Continue medical management Coding Level of Care Code Acute Code for [facility] Diagnoses ESRD on hemodialysis N18.6; Z99.2
[2022-06-29] MEDS: budesonide 0.5 mg/2 mL Neb INHALATION ×2 (08:49→21:09)
[2022-06-29] MEDS: ipratropium-albuterol 3 mL Neb INHALATION (08:49)
[2022-06-29] MEDS: metoprolol tartrate 50 mg Tablet 100 MG PO ×2 (10:06→18:19)
--- NOTE | 2022-06-29 10:50 | PC.CHAP ---
Pastoral Care Encounter/Spiritual Assessment Type of Contact [] Declined audio visual director visit [] Patient/Family/Request visit [] Outpatient visit [] Follow-up visit [] Physician referral [] Code/Alert [x] Routine visit [] Staff referral [] Actively dying [] Patient sleeping [] Family support [] [] Out of room [] Palliative care [] [x] Receiving care in room [] Pre-surgical visit [] Trauma [x] Long length of stay [] ICU visit [] Other: Relational/Emotional Strength [x] Patient feels connected with others/family/visitors/staff [] Distress [] Loneliness/isolation [] Abandonment Spirituality of Patient [x] Person of Eve [] Attends Adventist of their Eve [x] Believes in Prayer [] Reads Bible or Sabianist materials [] There are Spiritual issues to be addressed Acute Care Assistant Interventions [x] Prayer [x] Active listening [x] Non-anxious presence [x] Spiritual/emotional support [] Crisis/trauma care [x] Spiritual counseling [] Bereavement support [] Provided bereavement packet [] Provided Bible/devotional materials [] Provided toy/stuffed animal, coloring book to patient or family member [] Provided Communion [] Anointing/[place] [] Salvation [x] Completed spiritual assessment [] Other: Impact on Illness or Injury [] Angry [] Fearful [x] Anxious [] Often cries [] Exhaustion [x] Unable to work [] Unable to attend christian [] Unable to walk/stand [] Unable to read [] Unable to drive [] Unable to eat/drink [] Unable to sleep [] Unable to be with family [] Patient intubated [] Other: Summary going amputate foot has other health problems has a positive attitude well go home at some point Time spent with patient 10 mins
--- NOTE | 2022-06-29 10:59 | PM.PN ---
Subjective Subjective: Patient is awaiting for surgery today around noon Complaining of pain Requested charge nurse to give her opioids Patient is complaining that she has requested twice to try Hemoglobin 8.3 Afebrile Hemodynamically stable Potassium 3.3 Vitals/I&O/Wt Last Vital Signs Temp 98.3 F 06/29/22 08:00 Pulse 83 06/29/22 08:59 Resp 18 06/29/22 10:09 BP 161/72 06/29/22 08:00 Pulse Ox 95 06/29/22 10:09 O2 Del Method 06/29/22 08:00 O2 Flow Rate 3 06/28/22 08:00 06/28/22 06/29/22 06/29/22 22:59 06:59 14:59 Intake Total 300 / 600 240 / 840 50 / 50 Balance 300 / -2700 240 / -2460 50 / 50 Weight last 48 hrs Weight 114.6 kg Physical Exam Narrative: Awake and alert Left leg covered in dressing Currently in pain Pleasant cooperative Doing well on room air No audible stridor or wheezing Hypertensive Abdomen soft No active chest pain Right tunneled dialysis catheter in place Data 06/29/22 04:54 06/29/22 04:54 A&P Assessment and plan (1) Diabetic ulcer of left foot: (2) Left rocker-bottom foot: (3) Acquired pes planovalgus of left foot: (4) Chronic pain in left foot: (5) Diabetic peripheral neuropathy associated with type 2 diabetes mellitus: (6) Anemia of chronic disease: (7) ESRD on hemodialysis: (8) Gangrene of left foot: (9) Gas gangrene: (10) Diarrhea: Plan 77-year-old female who was admitted on request of Dr. Chun for worsening of left foot diabetic ulcer with concern of gas gangrene and third toe wet gangrene, she was put on broad-spectrum antibiotics, Dr. Ash consulted, status post third toe amputation, debridement of foot, patient opted for below-knee amputation, Dr. Schuster consulted, patient is awaiting surgery today, she is a dialysis patient, nephro is consulted, she is finishing IV vancomycin course she still has 2 weeks left she was diagnosed with MRSA pneumonia Gas gangrene Third toe wet gangrene Third toe amputation by Dr. Ash Patient is going for below-knee amputation by Dr. Schuster today N.p.o. Opioids for algesia Continue bowel regimen, judicious use as patient was complaining of diarrhea on admission End-stage renal disease: Nephro consulted Hypokalemia: Repleted Diabetic: Insulin with sliding scale, Blood sugar this morning 124, she has remained euglycemic Finishing IV vancomycin course patient is stating she still has 2 more weeks left for MRSA pneumonia Fluid culture showing MRSA Recent PCI with RCA stent: Held Plavix surgical procedures, continued aspirin and atorvastatin, please continue Plavix on 3/3 after her surgery Chest pain Remote history of PE not on anticoagulating agent Anemia of chronic disease state stable In good spirits Patient does not want to go to any group home after amputation We will reassess after amputation, she will need PT assessment Patient is a resident at [facility] Medical Necessity Statement*: Continue medical management Diagnoses Diabetic ulcer of left foot E11.621; L97.529 Left rocker-bottom foot Q66.82 Acquired pes planovalgus of left foot M21.42 Chronic pain in left foot M79.672; G89.29 Diabetic peripheral neuropathy associated with type 2 diabetes mellitus E11.42 Anemia of chronic disease D63.8 ESRD on hemodialysis N18.6; Z99.2 Gangrene of left foot I96 Gas gangrene A48.0 Diarrhea R19.7
[2022-06-29 11:58] LABS: Vancomycin Trough 18.3 ug/mL (10-15)
[2022-06-29 12:02] LABS: Glucose Point of Care 151 mg/dL (70-110)
[2022-06-29] MEDS: sodium chloride 0.9% 1,000 ML 30 ML IV (12:40)
[2022-06-29] MEDS: HYDROmorphone 1 mg/mL INJ 1 mL 0.5 MG IVP ×2 (12:47→23:56)
--- NOTE | 2022-06-29 13:32 | P.PN_ITS ---
Subjective Subjective: Patient seen in holding with 2 daughters and grandson. All are in agreement of proceeding with left below-knee amputation Vitals/I&O/Wt Last Vital Signs Temp 97.5 F L 06/29/22 12:18 Pulse 63 06/29/22 12:18 Resp 18 06/29/22 12:18 BP 177/67 06/29/22 12:18 Pulse Ox 98 06/29/22 12:18 O2 Del Method 06/29/22 12:18 O2 Flow Rate 3 06/28/22 08:00 06/28/22 06/29/22 06/29/22 22:59 06:59 14:59 Intake Total 300 / 600 240 / 840 50 / 50 Balance 300 / -2700 240 / -2460 50 / 50 Weight last 48 hrs Weight 252 lb 10.396 oz Physical Exam Narrative: Lower extremity dressing in place Data 06/29/22 04:54 06/29/22 04:54 A&P Assessment and plan (1) Diabetic ulcer of left foot: (2) Left rocker-bottom foot: Family and patient expressed agreement in proceeding with left below-knee amputation. Attestations Medical Necessity Statement*: Surgery today. Coding Level of Care Code Acute Code for [facility] Diagnoses Diabetic ulcer of left foot E11.621; L97.529 Left rocker-bottom foot Q66.82
--- NOTE | 2022-06-29 13:59 | ANES.PROC ---
Documented by User: Liz Huggins CRNA 06/29/22 14:00 Anesthesia Procedures Procedure/Date: 06/29/22 BKA Nerve Block ^: Nerve Block 1: Main Anesthesia: general anesthesia Time Out Performed: Yes Consent: requested by attending/covering physician, from patient, risks and benefits reviewed and patient agrees to proceed Nerve block location: adductor canal and popliteal Anesthesia monitors applied: pulse oximetry, EKG and BP cuff Nerve block position: supine Anesthetic Used: ropivicaine 0.5% Amount of anesthesia used (mL): 40 Ultrasound used to: recognize landmarks and visualize and ID femerol nerve Nerve Stimulator Used?: Yes Interscalene/Femoral BLK: 4 stimuplex 21 g needle used for position and inplane approach, visualize local anesthetic spread and no vascular puncture identified Injection: neg aspiration of heme and paresthesia +/- (neg) Patient Tolerated Procedure: well and no complications Complications: none Documented by User: Woodrow Rowell 06/29/22 14:36 Anesthesia Procedures Procedure/Date: 06/29/22
--- NOTE | 2022-06-29 14:00 | ANES.PREANE2 ---
Pre-Anesthetic Assessment Height/Weight: Height 1.7 m Weight 114.6 kg Temp Pulse Resp BP Pulse Ox O2 Del Method O2 Flow Rate 97.5 F L 63 18 177/67 98 3 06/29/22 12:18 06/29/22 12:18 06/29/22 12:18 06/29/22 12:18 06/29/22 12:18 06/29/22 12:18 06/28/22 08:00 Preop Diagnosis: Diabetic ulcer left foot Operation Date: 06/27/22 12:20 Proposed Procedures p Amputation Toe/s(Left) - Guero Ash DPM Operation Date: 06/29/22 14:05 Proposed Procedures p Left Below Knee Amputation(Left) - Joselo Schuster MD Was Beta Akira taken within 24 hours: Yes Was Clonidine taken within 24 hours: Yes Last intake: Intake Last Liquid Date 06/28/22 Last Liquid Time 18:00 Last Solid Date 06/28/22 Last Solid Time 18:00 Social No alcohol and No tobacco Exam alert, oriented x 3 and regular rate & rhythm Airway Submandibular: within normal limits Mallampati: Class II Comments: Comments: poor dentition Pulmonary Chronic Obstructive Pulmonary Disease pneumonia. cannot tolerate laying flat d/t SOB CV/HEM Coronary Artery Disease, Myocardial Infarction and Peripheral Vascular Disease pulm htn. stents in april, anticoag with plavix, last dose 06/25/22. denies chest pain. baseline SOB. Chronic Renal Failure dialyzed yesterday Hepatic None reported GI None reported Metabolic Diabetes Mellitus, Hyperlipidemia and Morbid Obesity Musc/sk Fibromyalgia chronic pain Neuropsych Anxiety, Cerebrovascular Accident and Neuropathy no residual Anesthetic Plan ASA status: 4 Anesthesia: Anesthesia Evaluation, Eval. for regional block and General Risk of > 500 ml blood loss (7ml/kg in children): Yes, adequate IV access and fluids planned Medications/Allergies Home Medications Medication Instructions Recorded Confirmed Last Taken Type acetaminophen 500 mg tablet 1,000 mg PO Q6H PRN Pain 04/07/22 06/26/22 06/26/22 History albuterol sulfate 90 mcg/actuation 2 puff inhalation Q6H PRN Wheezing 04/07/22 06/26/22 Unknown History aerosol inhaler (ProAir HFA) benzonatate 100 mg capsule 100 mg PO Q8H PRN Cough 04/07/22 06/26/22 Unknown History bimatoprost 0.01 % eye drops 1 drp ophthalmic (eye) BEDTIME 04/07/22 06/26/22 06/25/22 History (Pepe) budesonide 0.5 mg/2 mL suspension 0.5 mg inhalation Q12H 04/07/22 06/26/22 06/25/22 History for nebulization calcium alginate 2 X 2 bandage 04/07/22 06/26/22 Unknown History carbidopa 25 mg-levodopa 100 mg 2 tab PO TID 04/07/22 06/26/22 06/26/22 History tablet cholecalciferol (vitamin D3) 50 6,000 unit PO DAILY 04/07/22 06/26/22 06/26/22 History mcg (2,000 unit) capsule (Vitamin D3) clonidine HCl 0.3 mg tablet 0.3 mg PO Q8H PRN systolic bp >160 04/07/22 06/26/22 Unknown History cyclobenzaprine 5 mg tablet 5 mg PO Q8H PRN Muscle Spasm 04/07/22 06/26/22 06/26/22 History fluticasone propionate 115 2 puff inhalation BID 04/07/22 06/26/22 06/26/22 History mcg-salmeterol 21 mcg/actuation HFA inhaler (Advair HFA) furosemide 40 mg tablet (Lasix) 40 mg PO BID 04/07/22 06/26/22 06/26/22 History gabapentin 100 mg capsule 100 mg PO TID 04/07/22 06/26/22 06/26/22 History hydroxyzine HCl 25 mg tablet 25 mg PO Q8H PRN Itching 04/07/22 06/26/22 Unknown History hydroxyzine pamoate 25 mg capsule 25 mg PO QPM 04/07/22 06/26/22 06/25/22 History insulin aspart U-100 100 unit/mL See Rx Instructions .Route .COMPLEX 04/07/22 06/26/22 06/26/22 History (3 mL) subcutaneous pen (Novolog FlexPen U-100 Insulin aspart) insulin glargine 100 unit/mL (3 40 unit SUBCUT DAILY@06 04/07/22 06/26/22 06/26/22 History mL) subcutaneous pen (Lantus Solostar U-100 Insulin) ipratropium 0.5 mg-albuterol 3 mg 3 ml inhalation Q6H PRN Cough 04/07/22 06/26/22 Unknown History (2.5 mg base)/3 mL nebulization soln loperamide 2 mg tablet (Imodium 2 mg PO Q6H PRN Loose Stool 04/07/22 06/26/22 06/26/22 History A-D) losartan 50 mg tablet 50 mg PO BEDTIME 04/07/22 06/26/22 06/25/22 History menthol 4 % topical gel (Biofreeze See Rx Instructions .Route .COMPLEX 04/07/22 06/26/22 Unknown History (menthol)) metolazone 5 mg tablet 5 mg PO QAM 04/07/22 06/26/22 06/26/22 History metoprolol tartrate 100 mg tablet 100 mg PO BID 04/07/22 06/26/22 06/26/22 History mirtazapine 30 mg tablet 30 mg PO BEDTIME@21 04/07/22 06/26/22 06/25/22 History neomycin-bacitracn Zn-polymyx 3.5 See Rx Instructions .Route .COMPLEX 04/07/22 06/26/22 Unknown History mg-400 unit-5,000 unit/gram top oint (Neosporin (sig-njk-nqnal)) ondansetron HCl 4 mg tablet 4 mg PO Q8H PRN Nausea And Vomiting 04/07/22 06/26/22 Unknown History promethazine-DM 6.25 mg-15 mg/5 mL 5 ml PO Q4H PRN Cough 04/07/22 06/26/22 Unknown History oral syrup ropinirole 0.5 mg tablet 0.5 mg PO QPM 04/07/22 06/26/22 06/25/22 History sertraline 50 mg tablet 50 mg PO DAILY 04/07/22 06/26/22 06/26/22 History simvastatin 40 mg tablet 40 mg PO BEDTIME@21 04/07/22 06/26/22 06/25/22 History solifenacin 5 mg tablet 5 mg PO QAM 04/07/22 06/26/22 06/26/22 History thyroid (pork) 90 mg tablet 90 mg PO DAILY 04/07/22 06/26/22 06/26/22 History ([place] Thyroid) vitamin B complex and vitamin C 1 cap PO QPM 04/07/22 06/26/22 06/25/22 History no.20-folic acid 1 mg capsule (Renal Caps) diphenhydramine HCl 25 mg tablet 25 mg PO Q24H PRN Itching 05/14/22 06/26/22 Unknown History (Banophen) aspirin 81 mg tablet,delayed 81 mg PO DAILY #30 tabs 05/17/22 06/26/22 06/26/22 Rx release clopidogrel 75 mg tablet (Plavix) 75 mg PO QPM 30 days #30 tabs 05/17/22 06/26/22 06/25/22 Rx doxycycline hyclate 100 mg capsule 100 mg PO BID 14 days #28 caps 06/20/22 06/26/22 06/26/22 Rx oxycodone-acetaminophen 7.5 mg-325 1 tab PO Q6H PRN Pain 06/26/22 06/26/22 06/26/22 History mg tablet temazepam 7.5 mg capsule 7.5 mg PO BEDTIME 06/26/22 06/26/22 06/25/22 History Allergies Allergy/AdvReac Type Severity Reaction Status Date / Time sulfamethoxazole Allergy Rash Verified 06/26/22 14:10 [From Septra] trimethoprim [From Septra] Allergy Rash Verified 06/26/22 14:10 morphine AdvReac Personality Verified 06/26/22 14:10 Change pregabalin [From Lyrica] AdvReac Loopy/Unste Verified 06/26/22 14:10 anoop Current Medications Generic Name Dose Route Start Last Admin Trade Name Freq PRN Reason Stop Dose Admin Albuterol/Ipratropium 3 ml 06/26/22 15:05 06/29/22 08:49 Ipratropium-Albuterol 3 Ml Neb INHALATION 3 ml Q6H PRN Administration SHORTNESS OF BREATH Aspirin 81 mg 06/27/22 09:00 06/29/22 08:47 Aspirin 81 Mg Ec Tablet PO Not Given DAILY BILLIE Budesonide 0.5 mg 06/27/22 20:00 06/29/22 08:49 Budesonide 0.5 Mg/2 Ml Neb INHALATION 0.5 mg BID.RESPIRATORY BILLIE Administration Carbidopa/Levodopa 2 each 06/26/22 15:05 06/29/22 08:47 Carbidopa-Levodopa 25-100mg Tablet PO Not Given TID [facility] Gabapentin 100 mg 06/26/22 15:05 06/29/22 08:48 Gabapentin 100 Mg Capsule PO Not Given TID [facility] Hydromorphone HCl 0.2 mg 06/26/22 19:13 06/29/22 10:09 Hydromorphone 1 Mg/Ml Inj 1 Ml IVP 0.2 mg Q4H PRN Administration SEVERE pain Hydromorphone HCl 0.5 mg 06/29/22 12:18 06/29/22 12:47 Hydromorphone 1 Mg/Ml Inj 1 Ml IVP 0.5 mg ONCE PRN Administration For preop pain/anxiety Piperacillin Sod/Tazobactam 50 mls @ 12.5 mls/hr 06/26/22 17:00 06/29/22 08:46 Sod 3.375 gm/ Sodium Chloride IV Infused Q12H [facility] Infusion Protocol Vancomycin HCl 1,000 mg/ 250 mls @ 250 mls/hr 06/26/22 21:00 06/28/22 22:59 Sodium Chloride IV Infused MoWeFr@2100 [facility] Infusion Sodium Chloride 1,000 mls @ 30 mls/hr 06/29/22 12:30 06/29/22 12:40 Sodium Chloride 0.9% IV 06/30/22 12:29 30 mls/hr .Q24H BILLIE Administration Insulin Glargine 40 unit 06/27/22 06:00 06/29/22 07:27 Insulin Glargine 100 Units/1 Ml SUBCUT Not Given DAILY@06 [facility] Insulin Human Lispro 0 unit 06/26/22 18:00 06/29/22 08:45 Insulin Lispro 100 Unit/1 Ml SUBCUT Not Given TIDWM [facility] Protocol Metoprolol Tartrate 100 mg 06/26/22 18:00 06/29/22 10:06 Metoprolol Tartrate 50 Mg Tablet PO 100 mg BID BILLIE Administration Oxycodone HCl 7.5 mg 06/26/22 15:46 06/28/22 21:42 Oxycodone 5 Mg Ir Tab/Cap PO 7.5 mg Q6H PRN Administration MODERATE Pain PFSH Anesthesia Medical History (Updated 06/28/22 @ 19:44 by Joselo Schuster MD) Acute exacerbation of CHF (congestive heart failure) Anemia in chronic illness Bilateral lower extremity edema CAD (coronary artery disease) Charcot's joint of left foot Chest pain Chronic insomnia Chronic kidney disease Chronic renal insufficiency 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 COPD (chronic obstructive pulmonary disease) Diabetes mellitus type 2, insulin dependent Diabetic neuropathy Elevated troponin ESRD (end stage renal disease) ESRD (end stage renal disease) Fibromyalgia Goals of care, counseling/discussion History of CVA (cerebrovascular accident) History of pulmonary embolism Hyperlipemia Hypertension Hyponatremia Hypothyroidism Influenza A Iron deficiency anemia Lumbar disc disease with radiculopathy MRSA bacteremia Neuropathy Parkinson disease Pneumonia Post laminectomy syndrome Pulmonary hypertension Sciatica associated with disorder of lumbosacral spine Stage 4 chronic renal impairment associated with type 2 diabetes mellitus Uncontrolled insulin dependent diabetes mellitus Vitamin D deficiency Surgical History History of colonoscopy 2020 Hx of cholecystectomy Hx of foot surgery Hx of hysterectomy S/P dialysis catheter insertion Family History Father CAD (coronary artery disease) Mother CAD (coronary artery disease) Diabetes Grandfather CAD (coronary artery disease) Diabetes Social History Smoking and tobacco status: former smoker Second hand smoke exposure: No Alcohol intake: current Alcohol intake frequency: holidays/special occasions only Alcohol type: hard liquor Data Anesthesia 06/29/22 04:54 06/29/22 04:54 Short CBC 06/28/22 06/29/22 Range/Units 06:19 04:54 WBC 10.7 H 9.8 (4.0-10.0) 10^3/uL Hgb 7.9 L 8.3 L (11.5-15.3) g/dL Hct 27.0 L 28.3 L (37.0-47.0) % MCV 104.2 H 98.6 D (81-99) fl Plt Count 357 385 (130-400) 10^3/cmm Neut % (Auto) 69.3 % Neut # (Auto) 7.41 (1.8-7.7) 10^3/uL BMP 06/28/22 06/29/22 06:19 04:54 Sodium 138 138 Potassium 4.1 3.3 L Chloride 99 98 Carbon Dioxide 23 24 BUN 52 H 28 H Creatinine 4.3 H 3.0 H Glucose 133 H 124 H Calcium 8.8 9.0 Blood Bank 06/27/22 14:00 Blood Type O Positive Rho(D) Type Positive Antibody Screen Negative Cardiac Studies: Echocardiogram 04/13/22 Echocardiogram Limited Views 05/14/22 Sestamibi Stress Test (Cardiology) 05/15/22
--- NOTE | 2022-06-29 15:01 | PC.SOCIAL ---
IMM Update pg 2 of IMM updated and reviewed w/ patient. Copy provided and Copy dated, initialed and placed in chart.
--- NOTE | 2022-06-29 15:16 | P.OP_ITS ---
Operative Report Date of procedure: June 29, 2022 Pre-op diagnosis: Preop Diagnosis Diabetic ulcer left foot Gangrene left third toe Post-op diagnosis: same Procedure done: Left below-knee amputation Pathology: other Pathology: Amputated left lower extremity Surgeon: Joselo Schuster Anesthesia: General Estimated blood loss (mL): 200 Tourniquet time (min): 8 Condition: stable Disposition: PACU Brief History: The patient is a 77-year-old female with a 6-year history of a plantar ulceration on her left foot. Despite extensive wound care and antibiotics this is failed to improve. She has been unable to read Zoom ambulatory status. The patient was counseled regarding options and wished to proceed with a left below- knee amputation. Procedure: The patient was taken to the operating room and given general anesthesia. She was prepped and draped in the supine position ith a tourniquet on the left leg. A timeout was performed. The tourniquet was inflated to 400 mmHg. At a point approximately 18 cm distal to the joint line a short anterior and longer posterior flap were created with a scalpel blade. Dissection was then carried down with electrocautery to the anterior tibia. The tibia was sharply divided with oscillating saw. The anterior lateral musculature was transected with cautery. A slightly more proximal oblique cut was made across the fibula. An amputation knife was used to complete the posterior flaps. The tourniquet was deflated. The tibial nerve was identified and cauterized. Tibial vessels were identified with a hemostat and sutured with #1 silk suture. The tourniquet was deflated and remaining hemostasis was accomplished with electrocautery. 3 drill holes were made in the anterior tibia and two #1 Ethibond sutures passed through the 2 drill holes exiting anteriorly. The posterior muscle flap was then reflected anteriorly and the sutures passed through that flap securing it over the anterior distal tibia. Ethibond suture was then used repairing the posterior fascia to the anterior fascia. 2-0 Vicryl suture was used to close subcutaneous tissues. The skin was closed with interrupted 2-0 Prolene and donaldo. Xeroform gauze 4 x 4 dressing sponges, ABD pads, compressive cast padding and Danny wrap were applied. The patient was taken to recovery room in stable condition.
[2022-06-29 15:33] LABS: Glucose Point of Care 134 mg/dL (70-110)
[2022-06-29 16:38] LABS: Glucose Point of Care 135 mg/dL (70-110)
--- NOTE | 2022-06-29 17:08 | ANE.PACU2 ---
Inpatient post-anesthesia follow up: Airway intact: Yes Vital signs: Temperature 97.4 F Pulse Rate 71 Respiratory Rate 16 Blood Pressure 167/64 Pulse Oximetry 97 Oxygen Delivery Me thod Room Air Oxygen Flow Rate 6 Fraction of Inspir ed Oxygen Hydration adequate: Yes Nausea and vomiting: No Pain level: 2 Mental status: Baseline
[2022-06-29] MEDS: carbidopa-levodopa 25-100mg Tablet 2 EACH PO (21:56)
[2022-06-29] MEDS: gabapentin 100 mg Capsule PO (21:57)
[2022-06-29] MEDS: acetaminophen 500 mg Tablet PO (22:53)
[2022-06-29] MEDS: oxyCODONE 5 mg IR Tab/Cap 7.5 MG PO (22:54)
[2022-06-30] VITALS (20 sets, daily range): BP systolic 115–185; BP diastolic 61–92; PULSE 101–128; RESP 16–25; TEMP 36.2–36.7; O2SAT 92–98
[2022-06-30] MEDS: morphine 4 mg/mL SDV 1 mL 2 MG IVP (01:18)
[2022-06-30] MEDS: acetaminophen 500 mg Tablet PO (03:16)
[2022-06-30] MEDS: cyclobenzaprine 10 mg Tablet 5 MG PO ×3 (03:16→20:24)
[2022-06-30] MEDS: HYDROmorphone 1 mg/mL INJ 1 mL 0.5 MG IVP ×3 (03:46→13:51)
[2022-06-30] MEDS: piperacillin-tazobactam 3.375 GM in sodium chloride 0.9% (plus) 50 ML IV (04:03)
[2022-06-30] MEDS: oxyCODONE 5 mg IR Tab/Cap 7.5 MG PO (05:16)
[2022-06-30 05:25] LABS: Glucose Point of Care 204 mg/dL (70-110)
[2022-06-30 05:37] LABS: Basophils # 0.1 10^3/uL (0.0-0.1); Basophils % 0.6 %; Eosinophils # 0.3 10^3/uL (0.0-0.8); Eosinophils % 1.8 %; Hematocrit 27.8 % (37.0-47.0); Hemoglobin 8.5 g/dL (11.5-15.3); Lymphocytes # 1.2 10^3/uL (0.8-4.8); Lymphocytes % 7.9 %; Mean Corpuscular HGB Conc 30.6 g/dL (30.0-36.0); Mean Corpuscular Hemoglobin 29.3 pg (28.0-34.0); Mean Corpuscular Volume 95.9 fl (81-99); Mean Platelet Volume 9.6 fL (7.4-10.4); Monocytes % 6.4 %; Neutrophils # 12.57 10^3/uL (1.8-7.7); Neutrophils % 81.7 %; Nucleated Red Blood Cells % 0 %; Platelet Count 414 10^3/cmm (130-400); Red Cell Distribution Width 17.5 % (12.1-15.1); White Blood Count 15.4 10^3/uL (4.0-10.0)
[2022-06-30 05:59] LABS: Anion Gap 20.5 (5-19); Blood Urea Nitrogen 31 mg/dL (8-23); Calcium 8.7 mg/dL (8.5-10.5); Carbon Dioxide 23 mmol/L (22-29); Chloride 97 mmol/L (98-107); Glucose 194 mg/dL (65-115); Osmolality Calculated 296 mOsm/kg (285-295); Potassium 3.5 mmol/L (3.5-5.1); Sodium 137 mmol/L (136-145)
[2022-06-30] MEDS: insulin glargine 100 units/1 mL 40 UNIT SUBCUT (06:22)
--- NOTE | 2022-06-30 07:10 | PM.PN ---
Subjective Subjective: Patient complains of pain despite oxycodone and morphine. History of chornic oxycodone use Vitals/I&O/Wt Last Vital Signs Temp 97.2 F L 06/30/22 04:00 Pulse 119 H 06/30/22 04:00 Resp 20 H 06/30/22 05:16 BP 185/75 06/30/22 04:00 Pulse Ox 98 06/30/22 05:16 O2 Del Method 06/30/22 04:00 O2 Flow Rate 6 06/29/22 15:11 06/29/22 06/30/22 06/30/22 22:59 06:59 14:59 Intake Total 1390 / 1440 Output Total 200 / 200 Balance 1190 / 1240 Weight last 48 hrs Weight 252 lb 10.396 oz Physical Exam Narrative: Left BKA dressing clean and dry. Data 06/30/22 04:43 06/30/22 04:43 Micro: Microbiology 06/26/22 13:00 Blood Culture - Preliminary Blood A&P Assessment and plan (1) Status post below-knee amputation of left lower extremity: Will increase oxycodone. Continue with Flexoril. Surgically stable. Will need SNF. Attestations Medical Necessity Statement*: Awaiting SNF Coding Level of Care Code Acute Code for Chg Fwd Diagnoses Status post below-knee amputation of left lower extremity Z89.512
--- NOTE | 2022-06-30 08:14 | PC.NURSE ---
Patient had not voided all shift even after trying to use a bedpan and bedside commode. Bladder scan showed 366 at 0650. Reported results to Kaylee PAREKH. Patient is to have dialysis today.
[2022-06-30] MEDS: insulin lispro 100 unit/1 mL SUBCUT ×2 (09:58→18:23)
[2022-06-30] MEDS: carbidopa-levodopa 25-100mg Tablet 2 EACH PO ×3 (09:59→20:24)
[2022-06-30] MEDS: metoprolol tartrate 50 mg Tablet 100 MG PO ×2 (10:00→18:23)
[2022-06-30] MEDS: aspirin 81 mg EC Tablet PO (10:00)
[2022-06-30] MEDS: gabapentin 100 mg Capsule PO (10:00)
[2022-06-30] MEDS: oxyCODONE 5 mg IR Tab/Cap 10 MG PO ×3 (10:18→20:24)
--- NOTE | 2022-06-30 10:46 | PM.PN ---
Subjective Subjective: s/p left bka yesterday Medications: Reviewed: Yes Vitals/I&O/Wt Last Vital Signs Temp 97.6 F 06/30/22 07:29 Pulse 112 H 06/30/22 07:52 Resp 18 06/30/22 10:18 BP 150/76 06/30/22 07:29 Pulse Ox 94 06/30/22 07:52 O2 Del Method 06/30/22 07:52 O2 Flow Rate 1.5 06/30/22 07:52 06/29/22 06/30/22 06/30/22 22:59 06:59 14:59 Intake Total 1390 / 1440 310 / 310 Output Total 200 / 200 Balance 1190 / 1240 310 / 310 Weight last 48 hrs Weight 114.6 kg Physical Exam Narrative: awake , alert , no acute distress HEENT S1 S2 RRR per report Clear jennie per report Data 06/30/22 04:43 06/30/22 04:43 Micro: Microbiology 06/26/22 13:00 Blood Culture - Preliminary Blood A&P Assessment and plan (1) ESRD on hemodialysis: Plan End-stage renal disease: On dialysis per MWF schedule, HD today Hypertension: Blood pressure controlled, restarted home meds Left foot gangrene: Surgery following, s/p Left BK yesterday Anemia: We will give Epogen Patient evaluated using audiovisual cart. Time spent 30 minutes Attestations Medical Necessity Statement*: Awaiting SNF Coding Level of Care Code Acute Code for Chg Fwd Diagnoses ESRD on hemodialysis N18.6; Z99.2
[2022-06-30] MEDS: clopidogrel 75 mg Tablet PO (11:27)
[2022-06-30 11:54] LABS: Glucose Point of Care 158 mg/dL (70-110)
--- NOTE | 2022-06-30 14:06 | P.PN_ITS ---
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 Complaining of significant pain at the stump site. Current medications not controlling her pain. Tachycardic, likely as a result of the pain. She has not received any doses of the ordered oxycodone this morning. Hemoglobin stable at 8.5 this morning. Medications: Reviewed: Yes Vitals/I&O/Wt Last Vital Signs Temp 97.6 F 06/30/22 12:00 Pulse 107 H 06/30/22 12:00 Resp 19 H 06/30/22 13:51 BP 129/65 06/30/22 12:00 Pulse Ox 95 06/30/22 13:51 O2 Del Method 06/30/22 07:52 O2 Flow Rate 1.5 06/30/22 07:52 06/29/22 06/30/22 06/30/22 22:59 06:59 14:59 Intake Total 1390 / 1440 310 / 310 Output Total 200 / 200 Balance 1190 / 1240 310 / 310 Physical Exam Narrative: General: Uncomfortable secondary to pain. 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, surgical dressing not opened for ex am by me Data 06/30/22 04:43 06/30/22 04:43 Micro: Microbiology 06/26/22 13:00 Blood Culture - Preliminary Blood A&P Assessment and plan (1) Diabetic ulcer of left foot: (2) Left rocker-bottom foot: (3) Acquired pes planovalgus of left foot: (4) Chronic pain in left foot: (5) Diabetic peripheral neuropathy associated with type 2 diabetes mellitus: (6) Anemia of chronic disease: (7) ESRD on hemodialysis: (8) Gangrene of left foot: (9) Gas gangrene: (10) Diarrhea: Plan 77-year-old female with CKD on hemodialysis admitted to the hospital on June 26, 2022 with worsening left lower extremity wounds over her foot and worsening new wound over her third digit. Initially underwent left third toe amputation with podiatry, however thereafter due to recurrence of wounds and failure to improve with multiple courses of antibiotics and conservative measures, patient elected to undergo left BKA which she has now completed on June 29, 2022. #Recurrent left lower extremity wounds, known Charcot's foot deformity, plantar ulceration, initially status post left third toe amputation. Patient had significant limitations in her mobility due to recurrence of her wounds and failure to improve with conservative measures and has now elected to undergo left BKA. She underwent this surgery on June 29, 2022. Currently her chief complaint is pain at the surgical site. We will optimize her pain medications with increasing the dose of Tylenol to 1000 mg every 8 hours, add fentanyl patch 25 mics daily which may be titrated up should patient continue to use increased amounts of breakthrough opiates, oxycodone IR dose already increased to 10 mg p.o. every 4 as needed by orthopedics. Additionally will increase dose of Dilaudid from 0.5 to 1 mg every 6 hours as needed, with the hope of alternating p.o. oxycodone with IV Dilaudid. Patient is not opiate na?ve. Gabapentin has been increased to 200 mg 3 times daily earlier this admission. #Patient has been on piperacillin/tazobactam and vancomycin due to her wounds during the course of this admission. Discontinue Zosyn, changed to cefepime 2 g IV 3 times a week with dialysis alongside of the vancomycin with dialysis Now that patient is post BKA, do not anticipate longer-term use of antibiotics, will likely discontinue when nearing discharge if her stump is healing satisfactorily. Outpatient wound culture from June 20 with Enterobacter cloacae and MRSA. Blood culture negative this admission. #Recent history of MRSA bacteremia in March 2022, source was not clearly identified but possibly thought to be related to MRSA pneumonia. Blood culture is negative this admission. Plan to discontinue vancomycin at discharge. She has completed a prolonged adequate course and has essentially remained on IV vancomycin for over 8 weeks since April 19, 2022. # Hypokalemia: Repleted # Diabetic: Insulin with sliding scale #Recent PCI with RCA stent: Continue Plavix 75 mg p.o. daily and aspirin 81 mg p.o. daily. Also continue atorvastatin, metoprolol. # Remote history of PE not on anticoagulating agent # Anemia of chronic disease state stable Hb at 8.5 Dispo: pending therapy asseesments Dvt ppx: Start heparin 5000 q12h DNR/ DNI Attestations Medical Necessity Statement*: s/p BKA, optimize pain control, therapy assessments to ascertain appropriate disposition planning Diagnoses Diabetic ulcer of left foot E11.621; L97.529 Left rocker-bottom foot Q66.82 Acquired pes planovalgus of left foot M21.42 Chronic pain in left foot M79.672; G89.29 Diabetic peripheral neuropathy associated with type 2 diabetes mellitus E11.42 Anemia of chronic disease D63.8 ESRD on hemodialysis N18.6; Z99.2 Gangrene of left foot I96 Gas gangrene A48.0 Diarrhea R19.7
[2022-06-30] MEDS: HYDROmorphone 1 mg/mL INJ 1 mL IVP ×3 (15:06→22:53)
[2022-06-30] MEDS: diphenhydrAMINE 50 mg/mL SDV 1mL IVP (15:06)
[2022-06-30] MEDS: fentaNYL 25 mcg Patch 1 PATCH TRANSDERMA (16:35)
[2022-06-30] MEDS: gabapentin 100 mg Capsule 200 MG PO ×2 (16:37→20:24)
[2022-06-30] MEDS: cefepime 2,000 MG in sodium chloride 0.9% (plus) 50 ML 100 MG IV (16:38)
[2022-06-30] MEDS: heparin 5,000 unit/mL INJ 1 mL 5000 UNIT SUBCUT (16:55)
[2022-06-30] MEDS: heparin, porcine 1,000 unit/mL INJ 10 mL HE (16:56)
[2022-06-30 17:26] LABS: Glucose Point of Care 257 mg/dL (70-110)
--- NOTE | 2022-06-30 19:24 | PC.NURSE ---
Upon entering room for bedside report, patient appeared to be sleeping. Patient states the Dilaudid helped her pain. Patient currently rates pain 9/10.
--- NOTE | 2022-06-30 19:26 | PC.HD ---
Arterial port of catheter does not draw, flushes well, lines reversed. Pt having severe pain to stump / phantom pain and cramping, medicated repeatedly during treatment and pt pain some improved near treatment end. Pt developed itching during treatment (not unusual for her) and benedryl ordered and given. Aside from leg pain, pt tolerated procedure well. Fluid removal goal not met d/t transient hypotension and concern that pain response may be falsely elevating B/P.
[2022-06-30] MEDS: vancomycin 1,000 MG in sodium chloride 0.9% 250 ML 250 MG IV (20:25)
--- NOTE | 2022-06-30 20:33 | PC.NURSE ---
Patient has fistula to left arm. It does not have thrill or bruit. Patient states that is does not work and they have not been using it. They have been using dialysis cath to right chest.
--- NOTE | 2022-06-30 20:39 | PC.NURSE ---
Patient educated on PRN pain medication options and frequency and verbalized understanding. Patient stated right now it is just a twinge.
[2022-06-30] MEDS: budesonide 0.5 mg/2 mL Neb INHALATION (20:57)
[2022-06-30] MEDS: ipratropium-albuterol 3 mL Neb INHALATION (20:57)
--- NOTE | 2022-06-30 22:51 | PC.NURSE ---
When assessing pain, patient rates it at a 10/10. When coming back in room with pain medication approximately 5 minutes later, patient was sleeping. When awakening patient to give medication, patient still rates at 10/10.
[2022-07-01] VITALS (14 sets, daily range): BP systolic 108–127; BP diastolic 53–75; PULSE 86–117; RESP 16–22; TEMP 36.6–37.1; O2SAT 91–97
[2022-07-01] MEDS: oxyCODONE 5 mg IR Tab/Cap 10 MG PO ×5 (00:28→20:30)
--- NOTE | 2022-07-01 00:29 | PC.NURSE ---
Patient requested earlier in shift to be awoken to assess pain every 2 hours. Upon entering patient's room at this time, patient sleeping. Patient awoken and rates pain 8/10. Patient states It feels so good not to have severe pain.
--- NOTE | 2022-07-01 02:59 | PC.NURSE ---
Upon rounding and pain assessment at 0235, patient stated that she doesn't need the Dilaudid at this time and wants to wait until it is time for her Oxy.
[2022-07-01] MEDS: heparin 5,000 unit/mL INJ 1 mL 5000 UNIT SUBCUT ×2 (04:35→15:25)
[2022-07-01] MEDS: insulin glargine 100 units/1 mL 40 UNIT SUBCUT (06:34)
[2022-07-01 07:01] LABS: Glucose Point of Care 194 mg/dL (70-110)
--- NOTE | 2022-07-01 08:11 | PM.PN ---
Subjective Subjective: pain controlled s/p HD yesterday Medications: Reviewed: Yes Vitals/I&O/Wt Last Vital Signs Temp 98.7 F 07/01/22 04:00 Pulse 102 H 07/01/22 04:00 Resp 16 07/01/22 04:34 BP 121/66 07/01/22 04:00 Pulse Ox 91 07/01/22 04:00 O2 Del Method 07/01/22 04:00 O2 Flow Rate 1.5 06/30/22 07:52 06/30/22 07/01/22 07/01/22 22:59 06:59 14:59 Intake Total 940 / 1250 Output Total 2080 / 2080 Balance -1141 / -831 0 / -831 Weight last 48 hrs Weight 109.8 kg Physical Exam Narrative: awake , alert , no acute distress HEENT S1 S2 RRR per report Clear jennie per report Data 06/30/22 04:43 06/30/22 04:43 A&P Assessment and plan (1) ESRD on hemodialysis: Plan End-stage renal disease: On dialysis per [facility] schedule, HD on sunday Hypertension: Blood pressure controlled, restarted home meds Left foot gangrene: Surgery following, s/p Left BK Anemia: We will give Epogen Patient evaluated using audiovisual cart. Time spent 30 minutes Attestations Medical Necessity Statement*: s/p BKA, optimize pain control, Coding Level of Care Code Acute Code for Chg Fwd Diagnoses ESRD on hemodialysis N18.6; Z99.2
[2022-07-01] MEDS: carbidopa-levodopa 25-100mg Tablet 2 EACH PO ×3 (08:27→20:30)
[2022-07-01] MEDS: gabapentin 100 mg Capsule 200 MG PO ×3 (08:27→20:30)
[2022-07-01] MEDS: aspirin 81 mg EC Tablet PO (08:29)
[2022-07-01] MEDS: cyclobenzaprine 10 mg Tablet 5 MG PO ×2 (08:29→20:29)
[2022-07-01] MEDS: clopidogrel 75 mg Tablet PO (08:29)
[2022-07-01] MEDS: metoprolol tartrate 50 mg Tablet 100 MG PO ×2 (08:29→18:43)
[2022-07-01] MEDS: budesonide 0.5 mg/2 mL Neb INHALATION ×2 (08:47→20:41)
[2022-07-01] MEDS: ipratropium-albuterol 3 mL Neb INHALATION (08:48)
[2022-07-01] MEDS: albuterol 2.5 mg/3 mL Neb INHALATION (08:48)
[2022-07-01] MEDS: insulin lispro 100 unit/1 mL SUBCUT ×2 (09:34→18:43)
--- NOTE | 2022-07-01 11:53 | PC.SOCIAL ---
IMM Updated Updated pt on IMM. No questions voiced. Provided pt a copy. Initialed, dated, & timed copy in chart.
[2022-07-01] MEDS: HYDROmorphone 1 mg/mL INJ 1 mL IVP (13:51)
--- NOTE | 2022-07-01 14:08 | P.PN_ITS ---
Subjective Subjective: States that pain is better controlled today however still significant. She feels fentanyl patch is helping her. No other new complaints today. Medications: Reviewed: Yes Vitals/I&O/Wt Last Vital Signs Temp 97.9 F 07/01/22 08:00 Pulse 108 H 07/01/22 08:00 Resp 17 07/01/22 13:51 BP 127/75 07/01/22 08:00 Pulse Ox 96 07/01/22 08:00 O2 Del Method 07/01/22 08:00 O2 Flow Rate 2 07/01/22 08:00 06/30/22 07/01/22 07/01/22 22:59 06:59 14:59 Intake Total 940 / 1250 360 / 360 Output Total 2080 / 2080 Balance -1141 / -831 0 / -831 360 / 360 Weight last 48 hrs Weight 109.8 kg Physical Exam Narrative: General: Awake alert and oriented, no acute distress HEENT: PERRLA, pupils bilaterally equal and reactive, pallors not present Chest: Normal vesicular breath sounds, no added sounds, equal good air entry bi laterally CVS: S1-S2 regular, no murmurs, no tachycardia, no gallops, no rubs Abdomen: Soft, nontender, no organomegaly, bowel sounds present Neuro: No focal deficits, no facial deformity, AO x3, power 5/5 in all limbs Extremities: Status post left BKA, right foot with chronic ulcer over medial plantar aspect. No gross signs of infection Data 06/30/22 04:43 06/30/22 04:43 Micro: Microbiology 06/26/22 13:07 Blood Culture - Final Blood NO GROWTH AFTER 5 DAYS A&P Assessment and plan (1) Diabetic ulcer of left foot: (2) Left rocker-bottom foot: (3) Acquired pes planovalgus of left foot: (4) Chronic pain in left foot: (5) Diabetic peripheral neuropathy associated with type 2 diabetes mellitus: (6) Anemia of chronic disease: (7) ESRD on hemodialysis: (8) Gangrene of left foot: (9) Gas gangrene: (10) Diarrhea: Plan 77-year-old female with CKD on hemodialysis admitted to the hospital on June 26, 2022 with worsening left lower extremity wounds over her foot and worsening new wound over her third digit. Initially underwent left third toe amputation with podiatry, however thereafter due to recurrence of wounds and failure to improve with multiple courses of antibiotics and conservative measures, patient elected to undergo left BKA which she has now completed on June 29, 2022. #Recurrent left lower extremity wounds, known Charcot's foot deformity, plantar ulceration, initially status post left third toe amputation. Patient had significant limitations in her mobility due to recurrence of her wounds and failure to improve with conservative measures and elected to undergo left BKA. She underwent this surgery on June 29, 2022. Currently her chief complaint is pain at the surgical site. Pain is better controlled today after optimizing her medications. Will increase fentanyl to 50 ewa patch daily and continue Tylenol to 1000 mg every 8 hours, oxycodone IR 10 mg p.o. every 4 as needed alternating with Dilaudid 1 mg every 6 hours as neede. Gabapentin has been increased to 200 mg 3 times daily earlier this admission. # currently on cefepime and vancomycin with dialysis. Now that patient is post BKA, do not anticipate longer-term use of antibiotics, will likely discontinue when nearing discharge if her stump is healing satisfactorily. Outpatient wound culture from June 20 with Enterobacter cloacae and MRSA. Blood culture negative this admission. #Recent history of MRSA bacteremia in March 2022, source was not clearly identified but possibly thought to be related to MRSA pneumonia. Blood culture is negative this admission. Plan to discontinue vancomycin at discharge. She has completed a prolonged adequate course and has essentially remained on IV vancomycin for over 8 weeks since April 19, 2022. # Hypokalemia: Repleted # Diabetic: Insulin with sliding scale #Recent PCI with RCA stent: Continue Plavix 75 mg p.o. daily and aspirin 81 mg p.o. daily. Also continue atorvastatin, metoprolol. # Remote history of PE not on anticoagulating agent # Anemia of chronic disease state stable Hb at 8.5 Dispo: Encouraged to work with PT OT, early ambulation, Dvt ppx: Start heparin 5000 q12h DNR/ DNI Attestations Medical Necessity Statement*: Status post BKA, encourage therapy, optimize pain regimen Coding Level of Care Code Acute Code for Chg Fwd Moderate MDM includes number and complexity of problems actively addressed during encounter, amount and/or complexity of data reviewed/ordered and described risk of complication, morbidity or mortality of management as documented Diagnoses Diabetic ulcer of left foot E11.621; L97.529 Left rocker-bottom foot Q66.82 Acquired pes planovalgus of left foot M21.42 Chronic pain in left foot M79.672; G89.29 Diabetic peripheral neuropathy associated with type 2 diabetes mellitus E11.42 Anemia of chronic disease D63.8 ESRD on hemodialysis N18.6; Z99.2 Gangrene of left foot I96 Gas gangrene A48.0 Diarrhea R19.7
[2022-07-01 14:13] LABS: Glucose Point of Care 149 mg/dL (70-110)
[2022-07-01] MEDS: fentaNYL 50 mcg Patch 1 PATCH TRANSDERMA (15:24)
[2022-07-01 17:05] LABS: Glucose Point of Care 163 mg/dL (70-110)
[2022-07-01 20:39] LABS: Glucose Point of Care 113 mg/dL (70-110)
[2022-07-02] VITALS (11 sets, daily range): BP systolic 97–123; BP diastolic 52–69; PULSE 68–116; RESP 16–18; TEMP 36.4–36.9; O2SAT 93–97
[2022-07-02] MEDS: oxyCODONE 5 mg IR Tab/Cap 10 MG PO ×3 (01:12→13:40)
[2022-07-02] MEDS: heparin 5,000 unit/mL INJ 1 mL 5000 UNIT SUBCUT ×2 (02:47→15:47)
[2022-07-02 03:56] LABS: Basophils # 0.1 10^3/uL (0.0-0.1); Basophils % 0.7 %; Eosinophils # 0.4 10^3/uL (0.0-0.8); Eosinophils % 2.5 %; Hematocrit 28.2 % (37.0-47.0); Hemoglobin 8.2 g/dL (11.5-15.3); Lymphocytes # 1.9 10^3/uL (0.8-4.8); Lymphocytes % 13.6 %; Mean Corpuscular HGB Conc 29.1 g/dL (30.0-36.0); Mean Corpuscular Hemoglobin 29.7 pg (28.0-34.0); Mean Corpuscular Volume 102.2 fl (81-99); Mean Platelet Volume 9.7 fL (7.4-10.4); Neutrophils # 10.38 10^3/uL (1.8-7.7); Neutrophils % 74.7 %; Nucleated Red Blood Cells % 0 %; Platelet Count 438 10^3/cmm (130-400); Red Blood Count 2.76 10^6/uL (4.1-5.3); Red Cell Distribution Width 17.8 % (12.1-15.1); White Blood Count 13.9 10^3/uL (4.0-10.0)
[2022-07-02] MEDS: cyclobenzaprine 10 mg Tablet 5 MG PO ×2 (04:00→13:40)
[2022-07-02] MEDS: acetaminophen 500 mg Tablet 1000 MG PO (04:00)
[2022-07-02 04:21] LABS: Alanine Aminotransferase < 5 U/L (0-33); Albumin Level 2.9 g/dL (3.5-5.2); Alkaline Phosphatase 107 U/L (35-105); Anion Gap 21.8 (5-19); Aspartate Amino Transferase 12 U/L (0-32); Blood Urea Nitrogen 31 mg/dL (8-23); Calcium 8.9 mg/dL (8.5-10.5); Carbon Dioxide 23 mmol/L (22-29); Chloride 96 mmol/L (98-107); Globulin 4.1 g/dL (1.3-4.6); Glucose 193 mg/dL (65-115); Osmolality Calculated 296 mOsm/kg (285-295); Potassium 3.8 mmol/L (3.5-5.1); Sodium 137 mmol/L (136-145); Total Bilirubin 0.3 mg/dL (0.15-1.2)
--- NOTE | 2022-07-02 06:32 | PM.PN ---
Subjective Subjective: c/o pain Medications: Reviewed: Yes Vitals/I&O/Wt Last Vital Signs Temp 97.8 F 07/02/22 04:00 Pulse 87 07/02/22 04:00 Resp 17 07/02/22 04:00 BP 97/58 07/02/22 04:00 Pulse Ox 94 07/02/22 04:00 O2 Del Method 07/01/22 20:41 O2 Flow Rate 2 07/01/22 08:00 07/01/22 07/01/22 07/02/22 14:59 22:59 06:59 Intake Total 480 / 480 600 / 1080 Balance 480 / 480 600 / 1080 Weight last 48 hrs Weight 109.8 kg Physical Exam Narrative: awake , alert , no acute distress HEENT S1 S2 RRR per report Clear jennie per report Data 07/02/22 02:45 07/02/22 02:45 Micro: Microbiology 06/26/22 13:07 Blood Culture - Final Blood NO GROWTH AFTER 5 DAYS A&P Assessment and plan (1) ESRD on hemodialysis: Plan End-stage renal disease: On dialysis per [facility] schedule, HD on sunday Hypertension: Blood pressure controlled, restartedhome meds Left foot gangrene: Surgery following, s/p Left BKA Anemia: We will give Epogen Patient evaluated using audiovisual cart. Time spent 30 minutes Attestations Medical Necessity Statement*: Status post BKA, encourage therapy, optimize pain regimen Coding Level of Care Code Acute Code for Chg Fwd Diagnoses ESRD on hemodialysis N18.6; Z99.2
[2022-07-02 06:38] LABS: Glucose Point of Care 122 mg/dL (70-110)
[2022-07-02] MEDS: insulin glargine 100 units/1 mL 40 UNIT SUBCUT (06:44)
[2022-07-02] MEDS: budesonide 0.5 mg/2 mL Neb INHALATION ×2 (07:43→21:11)
[2022-07-02] MEDS: clopidogrel 75 mg Tablet PO (08:52)
[2022-07-02] MEDS: aspirin 81 mg EC Tablet PO (08:52)
[2022-07-02] MEDS: gabapentin 100 mg Capsule 200 MG PO ×3 (08:52→22:11)
[2022-07-02] MEDS: carbidopa-levodopa 25-100mg Tablet 2 EACH PO ×3 (08:52→22:10)
[2022-07-02] MEDS: metoprolol tartrate 50 mg Tablet 100 MG PO ×2 (08:53→17:50)
[2022-07-02 12:09] LABS: Glucose Point of Care 232 mg/dL (70-110)
[2022-07-02] MEDS: insulin lispro 100 unit/1 mL SUBCUT (13:35)
--- NOTE | 2022-07-02 16:49 | P.PN_ITS ---
Subjective Subjective: Pain is much better controlled today after increasing fentanyl patch to 50 mics. Patient is tolerating this well. hemoglobin stable at 8.2. She is hemodynamically stable afebrile, no acute interim events Medications: Reviewed: Yes Vitals/I&O/Wt Last Vital Signs Temp 98.0 F 07/02/22 12:00 Pulse 116 H 07/02/22 12:00 Resp 18 07/02/22 13:40 BP 123/65 07/02/22 12:00 Pulse Ox 93 07/02/22 12:00 O2 Del Method 07/02/22 12:00 O2 Flow Rate 2 07/01/22 08:00 07/02/22 07/02/22 07/02/22 06:59 14:59 22:59 Intake Total 600 / 600 Balance 600 / 600 Physical Exam Narrative: General: Awake alert and oriented, no acute distress HEENT: PERRLA, pupils bilaterally equal and reactive, pallors not present Chest: Normal vesicular breath sounds, no added sounds, equal good air entry bilaterally CVS: S1-S2 regular, no murmurs, no tachycardia, no gallops, no rubs Abdomen: Soft, nontender, no organomegaly, bowel sounds present Neuro: No focal deficits, no facial deformity, AO x3, power 5/5 in all limbs Extremities: Status post left BKA, right foot with chronic ulcer over medial plantar aspect. No gross signs of infection Data 07/02/22 02:45 07/02/22 02:45 Micro: Microbiology 06/26/22 13:07 Blood Culture - Final Blood NO GROWTH AFTER 5 DAYS A&P Assessment and plan (1) Diabetic ulcer of left foot: (2) Left rocker-bottom foot: (3) Acquired pes planovalgus of left foot: (4) Chronic pain in left foot: (5) Diabetic peripheral neuropathy associated with type 2 diabetes mellitus: (6) Anemia of chronic disease: (7) ESRD on hemodialysis: (8) Gangrene of left foot: (9) Gas gangrene: (10) Diarrhea: Plan 77-year-old female with CKD on hemodialysis admitted to the hospital on June 26, 2022 with worsening left lower extremity wounds over her foot and worsening new wound over her third digit. Initially underwent left third toe amputation with podiatry, however thereafter due to recurrence of wounds and failure to improve with multiple courses of antibiotics and conservative measures, patient elected to undergo left BKA which she has now completed on June 29, 2022. #Recurrent left lower extremity wounds, known Charcot's foot deformity, plantar ulceration, initially status post left third toe amputation. Patient had significant limitations in her mobility due to recurrence of her wounds and failure to improve with conservative measures and elected to undergo left BKA. She underwent this surgery on June 29, 2022. Currently her pain is much better controlled after optimizing her medications to fentanyl 50 ewa patch , Tylenol to 1000 mg every 8 hours, oxycodone IR 10 mg p.o. every 4 as needed alternating with Dilaudid 1 mg every 6 hours as neede. Gabapentin has been increased to 200 mg 3 times daily earlier this admission. # currently on cefepime and vancomycin with dialysis. Now that patient is post BKA, do not anticipate longer-term use of antibiotics, will likely discontinue at discharge if her stump is healing satisfactorily. Outpatient wound culture from June 20 with Enterobacter cloacae and MRSA. Blood culture negative this admission. #Recent history of MRSA bacteremia in March 2022, source was not clearly identified but possibly thought to be related to MRSA pneumonia. Blood culture is negative this admission. Plan to discontinue vancomycin at discharge. She has completed a prolonged adequate course and has essentially remained on IV vancomycin for over 8 weeks since April 19, 2022. # Hypokalemia: Repleted # Diabetic: Insulin with sliding scale #Recent PCI with RCA stent: Continue Plavix 75 mg p.o. daily and aspirin 81 mg p.o. daily. Also continue atorvastatin, metoprolol. # Remote history of PE not on anticoagulating agent # Anemia of chronic disease state stable Hb at 8.5 Dispo: Encouraged to work with PT OT, will transition to [facility], transport N/a over the weekened Dvt ppx: Start heparin 5000 q12h DNR/ DNI Attestations Medical Necessity Statement*: improving pain, healing from sugery, planned transition to SNF in the next 24 hrs Coding Level of Care Code Acute Code for g Fwd Diagnoses Diabetic ulcer of left foot E11.621; L97.529 Left rocker-bottom foot Q66.82 Acquired pes planovalgus of left foot M21.42 Chronic pain in left foot M79.672; G89.29 Diabetic peripheral neuropathy associated with type 2 diabetes mellitus E11.42 Anemia of chronic disease D63.8 ESRD on hemodialysis N18.6; Z99.2 Gangrene of left foot I96 Gas gangrene A48.0 Diarrhea R19.7
[2022-07-02 16:51] LABS: Glucose Point of Care 91 mg/dL (70-110)
[2022-07-02 23:00] LABS: Glucose Point of Care 125 mg/dL (70-110)
[2022-07-03] VITALS (12 sets, daily range): BP systolic 96–125; BP diastolic 50–71; PULSE 83–110; RESP 16–21; TEMP 36.3–37.2; O2SAT 91–97
[2022-07-03] MEDS: oxyCODONE 5 mg IR Tab/Cap 10 MG PO ×4 (01:17→21:37)
[2022-07-03] MEDS: heparin 5,000 unit/mL INJ 1 mL 5000 UNIT SUBCUT ×2 (04:31→16:40)
[2022-07-03] MEDS: insulin glargine 100 units/1 mL 40 UNIT SUBCUT (05:37)
--- NOTE | 2022-07-03 05:52 | PM.PN ---
Subjective Subjective: no new complaints Medications: Reviewed: Yes Vitals/I&O/Wt Last Vital Signs Temp 98.6 F 07/03/22 00:00 Pulse 87 07/03/22 00:00 Resp 16 07/03/22 01:17 BP 111/67 07/03/22 00:00 Pulse Ox 94 07/03/22 00:00 O2 Del Method 07/03/22 00:00 O2 Flow Rate 96 07/02/22 21:18 07/02/22 07/02/22 07/03/22 14:59 22:59 06:59 Intake Total 600 / 600 1080 / 1680 0 / 1680 Balance 600 / 600 1080 / 1680 0 / 1680 Physical Exam Narrative: awake , alert , no acute distress HEENT S1 S2 RRR per report Clear jennie per report Data 07/02/22 02:45 07/02/22 02:45 A&P Assessment and plan (1) ESRD on hemodialysis: Plan End-stage renal disease: On dialysis per MWF schedule, HD today Hypertension: Blood pressure controlled, restartedhome meds Left foot gangrene: Surgery following, s/p Left BKA Anemia: We will give Epogen Patient evaluated using audiovisual cart. Time spent 30 minutes Attestations Medical Necessity Statement*: per medicine Coding Level of Care Code Acute Code for Chg Fwd Diagnoses ESRD on hemodialysis N18.6; Z99.2
[2022-07-03 06:22] LABS: Alanine Aminotransferase < 5 U/L (0-33); Albumin Level 2.7 g/dL (3.5-5.2); Alkaline Phosphatase 100 U/L (35-105); Aspartate Amino Transferase 13 U/L (0-32); Blood Urea Nitrogen 55 mg/dL (8-23); Calcium 8.7 mg/dL (8.5-10.5); Carbon Dioxide 19 mmol/L (22-29); Chloride 95 mmol/L (98-107); Glucose 147 mg/dL (65-115); Osmolality Calculated 298 mOsm/kg (285-295); Sodium 135 mmol/L (136-145); Total Bilirubin 0.3 mg/dL (0.15-1.2); Total Protein 6.7 g/dL (6.6-8.7)
[2022-07-03 06:24] LABS: Anion Gap 25.1 (5-19); Potassium 4.1 mmol/L (3.5-5.1)
[2022-07-03 06:52] LABS: SARS Covid-2 Antigen Negative (Negative)
[2022-07-03 07:25] LABS: Glucose Point of Care 155 mg/dL (70-110)
--- NOTE | 2022-07-03 07:53 | P.DS_ITS ---
Discharge Providers Date of Admission: 06/26/22 15:05 Date of Discharge: July 03, 2022 Attending Provider at Admission: Andrew Montelongo MD Attending Provider at Discharge: Nic Pack MD Consults: Telemetry nephrology Podiatry: Dr. Ash Orthopedics: Dr. Montiel Primary Care Provider: Brandi Escalera MD Diagnoses at Discharge Discharge Diagnosis (1) ESRD on hemodialysis: Status: Acute (2) Status post below-knee amputation of left lower extremity: Status: Acute (3) Diabetic ulcer of left foot: Status: Acute (4) Diabetic peripheral neuropathy associated with type 2 diabetes mellitus: Status: Acute (5) Anemia of chronic disease: Status: Acute (6) Cellulitis of left foot: Status: Acute Reason for Visit Reason for Visit: Needs IV, Dr Wilkinson sent Hospital Course Hospital Course 77-year-old female with CKD on hemodialysis admitted to the hospital on June 26, 2022 with worsening left lower extremity wounds over her foot and worsening new wound over her third digit. Initially underwent left third toe amputation with podiatry, however thereafter due to recurrence of wounds and failure to improve with multiple courses of antibiotics and conservative measures, patient elected to undergo left BKA which was performed on June 29, 2022. #Recurrent left lower extremity wounds, known Charcot's foot deformity, plantar ulceration, initially status post left third toe amputation.? Patient had significant limitations in her mobility due to recurrence of her wounds and failure to improve with conservative measures and? elected to undergo left BKA. She underwent this surgery on June 29, 2022. She needed optimization of her pain regimenm, currently her pain is much better controlled after optimizing her medications to? fentanyl 50 ewa patch , Tylenol to 1000 mg every 8 hours,? oxycodone IR? 10 mg p.o. every 4 as needed Gabapentin has been increased to 200 mg 3 times daily earlier this admission. She is curently pain free Continue wound care/stump care at wound care clinic # currently on cefepime and vancomycin with dialysis. Now that patient is post BKA, do not anticipate longer-term use of antibiotics, will discontinue iv abx at discharge. Outpatient wound culture from June 20 with Enterobacter cloacae and MRSA. Blood culture negative this admission. #Recent history of MRSA bacteremia in March 2022, source was not clearly identified but possibly thought to be related to MRSA pneumonia.? Blood culture is negative this admission.?Discontinue vancomycin at discharge.? She has completed a prolonged adequate course and has essentially remained on IV v ancomycin for over 8 weeks since April 19, 2022. # Hypokalemia: Repleted # Diabetic: Insulin with sliding scale #Recent PCI with RCA stent: Continue Plavix 75 mg p.o. daily and aspirin 81 mg p.o. daily.? Also continue atorvastatin, metoprolol. # Remote history of PE not on anticoagulating agent # Anemia of chronic disease state stable Hb at 8.5 # CKD on MHD : HD today as per schedule and then discharge Patient's blood cultures from the day of admission did come back positive 1 out of 4 bottles for Corynebacterium and micrococcus. Given the clinical picture this is thought to be contaminant. Patient has remained hemodynamically stable and afebrile. Patient however did finish course of antibiotics while in hospital with vancomycin and cefepime with dialysis. Last session of dialysis on Monday 07/03. Physical Exam Narrative: General: No acute distress, AO x3 HEENT: PERRLA, pupils bilaterally equal and reactive Chest: Normal vesicular breath sounds, no added sounds, equal good air entry bilaterally CVS: S1-S2 regular, no murmurs, no tachycardia, no gallops, no rubs Abdomen: Soft, nontender, no organomegaly, bowel sounds present Neuro: No focal deficits, no facial deformity, AO x3, power 5/5 in all limbs EXT: Left BKA, surgical dressing not opened for exam. Right chronic plantar foot ulcer, continue [facility] management Discharge Data Studies Completed and Pending Completed Studies During Hospitalization Category Date Time Status CT foot LT w con [id number] Stat Cat Scan 06/26/22 13:21 Completed XR chest 1V portable [id number] Stat Exams 06/26/22 12:26 Completed XR foot LT 2V [id number] Routine Exams 06/28/22 09:31 Completed XR foot LT min 3V* [id number] Stat Exams 06/26/22 12:26 Completed Pathology: Surgical [PTH] Routine Pth 06/27/22 12:33 Completed Pending at discharge Category Date Time Status Blood Culture Stat Lab 06/26/22 13:07 Results Pathology: Surgical [PTH] Routine Pth 06/27/22 12:33 Received Radiology Impressions Chest X-Ray 06/26/22 12:26 Impression: Cardiomegaly and atherosclerosis. Foot CT 06/26/22 13:21 IMPRESSION: There is subcutaneous emphysema surrounding 3rd digit from the distal tip through the base of the 3rd proximal phalanx which would be indicative of gangrenous infection. While there are no evident signs of osteomyelitis on exam, given the close proximity of the gas to the 3rd digit osteomyelitis is presumed. MRI would provide a more sensitive evaluation for osteomyelitis as a next step imaging modality if this would change medical management. ADDENDUM: 06/26/22 1610 Findings were discussed with ANDREW MONTELONGO at 06/26/2022 4:08 PM [employer]. Foot X-Ray 06/28/22 09:31 IMPRESSION: 1. Status post recent amputation of the 3rd toe. 2. Stable appearance of fusion hardware in the medial foot and distal fibula. No evidence of hardware related complication. 3. Unchanged degenerative changes and collapse the plantar arch. Microbiology 06/26/22 13:00 Blood Blood Culture - Final Corynebacterium species Micrococcus and related genera 06/26/22 13:07 Blood Blood Culture - Final NO GROWTH AFTER 5 DAYS Laboratory Results WBC 13.9 10^3/uL (4.0-10.0) H 07/02/22 02:45 RBC 2.76 10^6/uL (4.1-5.3) L 07/02/22 02:45 Hgb 8.2 g/dL (11.5-15.3) L 07/02/22 02:45 Hct 28.2 % (37.0-47.0) L 07/02/22 02:45 MCV 102.2 fl (81-99) H 07/02/22 02:45 MCH 29.7 pg (28.0-34.0) 07/02/22 02:45 MCHC 29.1 g/dL (30.0-36.0) L 07/02/22 02:45 RDW 17.8 % (12.1-15.1) H 07/02/22 02:45 Plt Count 438 10^3/cmm (130-400) H 07/02/22 02:45 MPV 9.7 fL (7.4-10.4) 07/02/22 02:45 Neut % (Auto) 74.7 % 07/02/22 02:45 Lymph % (Auto) 13.6 % 07/02/22 02:45 Butler % (Auto) 7.0 % 07/02/22 02:45 Eos % (Auto) 2.5 % 07/02/22 02:45 Baso % (Auto) 0.7 % 07/02/22 02:45 Neut # (Auto) 10.38 10^3/uL (1.8-7.7) H 07/02/22 02:45 Lymph # (Auto) 1.9 10^3/uL (0.8-4.8) 07/02/22 02:45 Butler # (Auto) 1.0 10^3/uL (0.2-0.9) H 07/02/22 02:45 Eos # (Auto) 0.4 10^3/uL (0.0-0.8) 07/02/22 02:45 Baso # (Auto) 0.1 10^3/uL (0.0-0.1) 07/02/22 02:45 Nucleated RBC % (auto) 0 % 07/02/22 02:45 Total Counted 100 (0-100) 06/29/22 04:54 Atypical Lymphs % 16.0 % (0-5) H 06/29/22 04:54 Absolute Neutrophils 6.1 10^3/cmm (1.4-6.5) 06/29/22 04:54 Segmented Neutrophils 62 % 06/29/22 04:54 Abs Segm Neuts (Man) 6.1 10/cmm (1.6-7.1) 06/29/22 04:54 Band Neutrophils 0.0 % 06/29/22 04:54 Abs Band Neuts (Man) 0.0 10^3/cmm (0.0-1.2) 06/29/22 04:54 Absolute Lymphocytes 2.4 10^3/cmm (1.2-3.4) 06/29/22 04:54 Lymphocytes (Manual) 8 % 06/29/22 04:54 Monocytes (Manual) 4.0 % 06/29/22 04:54 Absolute Monocytes 0.4 10^3/cmm (0.1-0.6) 06/29/22 04:54 Eosinophils (Manual) 6 % 06/29/22 04:54 Absolute Eosinophils 0.5 10^3/cmm (0.0-0.7) 06/29/22 04:54 Basophils (Manual) 0.0 % 06/29/22 04:54 Absolute Basophils 0.0 10^3/cmm (0.0-0.2) 06/29/22 04:54 Metamyelocytes 1.0 % 06/29/22 04:54 Myelocytes 3.0 % 06/29/22 04:54 Nucleated RBCs # 0.0 /100WBC 07/02/22 02:45 Platelet Estimate Normal (Normal) 06/29/22 04:54 Polychromasia 1+ H 06/29/22 04:54 Macrocytosis 1+ H 06/29/22 04:54 Sodium 135 mmol/L (136-145) L 07/03/22 05:07 Potassium 4.1 mmol/L (3.5-5.1) 07/03/22 05:07 Chloride 95 mmol/L (98-107) L 07/03/22 05:07 Carbon Dioxide 19 mmol/L (22-29) L 07/03/22 05:07 Anion Gap 25.1 (5-19) H 07/03/22 05:07 BUN 55 mg/dL (8-23) H 07/03/22 05:07 Creatinine 4.9 mg/dL (0.5-0.9) H 07/03/22 05:07 GFR Calculation Not Reportable 07/03/22 05:07 Glucose 147 mg/dL (65-115) H 07/03/22 05:07 POC Glucose 155 mg/dL (70-110) H 07/03/22 06:05 Calculated Osmolality 298 mOsm/kg (285-295) H 07/03/22 05:07 Calcium 8.7 mg/dL (8.5-10.5) 07/03/22 05:07 Phosphorus 4.7 mg/dL (2.5-4.5) H 06/27/22 05:50 Magnesium 1.8 mg/dL (1.7-2.3) 06/27/22 05:50 Total Bilirubin 0.3 mg/dL (0.15-1.2) 07/03/22 05:07 AST 13 U/L (0-32) 07/03/22 05:07 ALT < 5 U/L (0-33) 07/03/22 05:07 Alkaline Phosphatase 100 U/L (35-105) 07/03/22 05:07 C-Reactive Protein 211.8 mg/L (0.0-4.9) H 06/27/22 05:50 Total Protein 6.7 g/dL (6.6-8.7) 07/03/22 05:07 Albumin 2.7 g/dL (3.5-5.2) L 07/03/22 05:07 Globulin 4.0 g/dL (1.3-4.6) 07/03/22 05:07 Urine Color Yellow (Yellow) 06/26/22 15:25 Urine Appearance Hazy (CLEAR) A 06/26/22 15:25 Urine pH 5 (5-7) 06/26/22 15:25 Ur Specific Edwards 1.010 (1.005-1.030) 06/26/22 15:25 Urine Protein 3+ (Negative) H 06/26/22 15:25 Urine Glucose (UA) Norm (Normal) 06/26/22 15:25 Urine Ketones Negative (Negative) 06/26/22 15:25 Urine Blood 3+ (Negative) H 06/26/22 15:25 Urine Nitrate Negative (Negative) 06/26/22 15:25 Urine Bilirubin Neg (Negative) 06/26/22 15:25 Urine Urobilinogen Neg mg/dL (Negative) 06/26/22 15:25 Ur Leukocyte Esterase 1+ (Negative) H 06/26/22 15:25 Urine RBC 5-10 /hpf (0-2) H 06/26/22 15:25 Urine WBC 5-10 /hpf (0-5) H 06/26/22 15:25 Ur Squamous Epith Cells 15-25 /hpf (0-5) H 06/26/22 15:25 Amorphous Sediment Not Reportable 06/26/22 15:25 Urine Bacteria Trace /hpf (NONE) 06/26/22 15:25 Vancomycin Trough 18.3 ug/mL (10-15) H 06/29/22 11:15 SARS-CoV-2 Ag (Rapid) Negative (Negative) 07/02/22 06:03 Blood Type O Positive 06/27/22 14:00 Rho(D) Type Positive 06/27/22 14:00 Antibody Screen Negative 06/27/22 14:00 Crossmatch See Detail 06/27/22 14:00 Vitals Last Vital Signs Temp 97.9 F 07/03/22 04:00 Pulse 83 07/03/22 04:00 Resp 21 H 07/03/22 04:00 BP 105/51 07/03/22 04:00 Pulse Ox 91 07/03/22 04:00 O2 Del Method 07/03/22 04:00 O2 Flow Rate 96 07/02/22 21:18 Discharge Plan Discharge Patient Disposition: Xfer SNF Condition: Stable Prescriptions: New fentanyl 50 mcg/hr Patch 72 Hour 1 patch transdermal Q72H 5 Days Qty: 2 0RF oxycodone 5 mg Tablet 10 mg PO Q4H PRN (Reason: MODERATE Pain) 5 Days Qty: 20 0RF Continued temazepam 7.5 mg capsule 7.5 mg PO BEDTIME doxycycline hyclate 100 mg capsule 100 mg PO BID 5 Days Qty: 10 0RF losartan 50 mg Tablet 50 mg PO BEDTIME furosemide [Lasix] 40 mg Tablet 40 mg PO BID promethazine-DM 6.25-15 mg/5 mL Syrup 5 ml PO Q4H PRN (Reason: Cough) Neosporin ([id number]) 3.5mg-400 unit- 5,000 unit/gram Ointment See Rx Instructions .ROUTE .COMPLEX Rx Instructions: apply to bottom of left foot topically one time a day -clean with ns apply ointment and bandage daily till healed ipratropium-albuterol 0.5 mg-3 mg(2.5 mg base)/3 mL Solution For Nebulization 3 ml INHALATION Q6H PRN (Reason: Cough) metoprolol tartrate 100 mg Tablet 100 mg PO BID ondansetron HCl 4 mg Tablet 4 mg PO Q8H PRN (Reason: Nausea And Vomiting) clonidine HCl 0.3 mg Tablet 0.3 mg PO Q8H PRN (Reason: systolic bp >160) loperamide [Imodium A-D] 2 mg Tablet 2 mg PO Q6H PRN (Reason: Loose Stool) metolazone 5 mg Tablet 5 mg PO QAM simvastatin 40 mg Tablet 40 mg PO BEDTIME@21 benzonatate 100 mg Capsule 100 mg PO Q8H PRN (Reason: Cough) mirtazapine 30 mg Tablet 30 mg PO BEDTIME@21 ropinirole 0.5 mg Tablet 0.5 mg PO QPM budesonide 0.5 mg/2 mL Suspension For Nebulization 0.5 mg inhalation Q12H Rx Instructions: for 5 days (start date 04/06/22) hydroxyzine HCl 25 mg Tablet 25 mg PO Q8H PRN (Reason: Itching) Renal Caps 1 mg Capsule 1 cap PO QPM albuterol sulfate [ProAir HFA] 90 mcg/actuation Hfa Aerosol Inhaler 2 puff INHALATION Q6H PRN (Reason: Wheezing) carbidopa-levodopa 25-100 mg Tablet 2 tab PO TID sertraline 50 mg Tablet 50 mg PO DAILY hydroxyzine pamoate 25 mg Capsule 25 mg PO QPM insulin aspart U-100 [Novolog FlexPen U-100 Insulin] 100 unit/mL (3 mL) Insulin Pen See Rx Instructions .ROUTE .COMPLEX Rx Instructions: sliding scale three times a day 150-200=3 units 201-250=5 units 251-300=7 units 301-350=9 units 351-400=11 units call provider for bs <60 or >400 cyclobenzaprine 5 mg Tablet 5 mg PO Q8H PRN (Reason: Muscle Spasm) solifenacin 5 mg Tablet 5 mg PO QAM Advair HFA 115-21 mcg/actuation Hfa Aerosol Inhaler 2 puff INHALATION BID insulin glargine [Lantus Solostar U-100 Insulin] 100 unit/mL (3 mL) Insulin Pen 40 unit SUBCUT DAILY@06 cholecalciferol (vitamin D3) [Vitamin D3] 50 mcg (2,000 unit) Capsule 6,000 unit PO DAILY thyroid (pork) [Cascade Thyroid] 90 mg Tablet 90 mg PO DAILY Lumigan 0.01 % Drops 1 drp OPHTHALMIC (EYE) BEDTIME (DME) calcium alginate 2 X 2 Bandage TOPICAL Rx Instructions: apply to left lower leg topically one time a day for diabetic ulcer Biofreeze (menthol) 4 % Gel See Rx Instructions .ROUTE .COMPLEX Rx Instructions: apply to bilat feet topically every 4 hours as needed for pain to feet diphenhydramine HCl [Banophen] 25 mg Tablet 25 mg PO Q24H PRN (Reason: Itching) clopidogrel [Plavix] 75 mg Tablet 75 mg PO QPM 30 Days Qty: 30 3RF aspirin 81 mg tablet,delayed release (DR/EC) 81 mg PO DAILY Qty: 30 3RF Changed acetaminophen 500 mg Tablet 1,000 mg PO Q8H PRN (Reason: Pain) Qty: 30 0RF gabapentin 100 mg Capsule 200 mg PO TID Qty: 30 0RF Discontinued oxycodone-acetaminophen 7.5-325 mg tablet 1 tab PO Q6H PRN (Reason: Pain) Referrals: [facility] [Outside] Brandi Escalera MD [Primary Care Provider] - Discharge Diet: Usual diet Discharge Activity: As per PT/OT instructions Activity Restrictions/Additional Instructions: Continue with dialysis session as before. Continue to follow-up with wound care as discussed in detail. Please follow-up with a primary care provider at site appointment. Discharge Attestations Time Spent in Discharge Care*: greater than 30 min Specific Discharge Activities: educating patient, educating and/or supporting family/caregiver, discussing with pcp/other providers, discussing with rehabilitation case coordinator/social workers/dc planners, documenting/other paperwork and evaluating patient/reviewing data Status at Discharge: Cognitive status at discharge: cognitively intact , Behavioral status at discharge: cooperative , Functional status at discharge: other assisted ambulation , Overall status at discharge: patient is progressing back to baseline Quality Metrics Clinical Quality Measures [ No reported AMI, CVA or VTE this stay] Coding Level of Care Code 55060 Total time (in minutes) for Discharge: 45 Diagnoses ESRD on hemodialysis N18.6; Z99.2 Status post below-knee amputation of left lower extremity Z89.512 Diabetic ulcer of left foot E11.621; L97.529 Diabetic peripheral neuropathy associated with type 2 diabetes mellitus E11.42 Anemia of chronic disease D63.8 Cellulitis of left foot L03.116
[2022-07-03] MEDS: insulin lispro 100 unit/1 mL SUBCUT ×3 (08:48→17:53)
[2022-07-03] MEDS: aspirin 81 mg EC Tablet PO (08:49)
[2022-07-03] MEDS: metoprolol tartrate 50 mg Tablet 100 MG PO ×2 (08:49→17:56)
[2022-07-03] MEDS: carbidopa-levodopa 25-100mg Tablet 2 EACH PO ×3 (08:50→21:38)
[2022-07-03] MEDS: gabapentin 100 mg Capsule 200 MG PO ×3 (08:50→21:37)
[2022-07-03] MEDS: clopidogrel 75 mg Tablet PO (08:50)
[2022-07-03] MEDS: budesonide 0.5 mg/2 mL Neb INHALATION (09:11)
[2022-07-03] MEDS: ipratropium-albuterol 3 mL Neb INHALATION (09:11)
[2022-07-03 11:00] LABS: Glucose Point of Care 261 mg/dL (70-110)
[2022-07-03 11:53] LABS: Vancomycin Trough 13.9 ug/mL (10-15)
--- NOTE | 2022-07-03 12:28 | PC.NURSE ---
Patient in dialysis on med surg floor. will continue to monitor while in dialysis.
[2022-07-03] MEDS: heparin, porcine 1,000 unit/mL INJ 10 mL HE (12:36)
--- NOTE | 2022-07-03 13:43 | PC.OT ---
OT TREATMENT ATTEMPTED. PER NOTES PATIENT IN DIALYSIS; IS NOT IN HER ROOM. WILL ATTEMPT AGAIN TOMORROW.
[2022-07-03] MEDS: cefepime 2,000 MG in sodium chloride 0.9% (plus) 50 ML 100 MG IV (16:21)
[2022-07-03 17:10] LABS: Glucose Point of Care 199 mg/dL (70-110)
[2022-07-03 20:48] LABS: Glucose Point of Care 184 mg/dL (70-110)
--- NOTE | 2022-07-03 21:26 | PM.PN ---
Subjective Subjective: Still complains of pain Vitals/I&O/Wt Last Vital Signs Temp 97.4 F L 07/03/22 20:00 Pulse 97 07/03/22 20:00 Resp 17 07/03/22 20:00 BP 116/71 07/03/22 20:00 Pulse Ox 97 07/03/22 20:00 O2 Del Method 07/03/22 20:00 O2 Flow Rate 96 07/02/22 21:18 07/03/22 07/03/22 07/03/22 06:59 14:59 22:59 Intake Total 0 / 1680 360 / 360 1010 / 1370 Balance 0 / 1680 360 / 360 1010 / 1370 Physical Exam Narrative: Incision clean. Some duskiness centrally over distal flap. Data 07/02/22 02:45 07/03/22 05:07 Micro: Microbiology 06/26/22 13:00 Blood Culture - Final Blood Corynebacterium species Micrococcus and related genera A&P Assessment and plan (1) Status post below-knee amputation of left lower extremity: Continue to follow clinically. Vascularity of distal stump of concern. Attestations Medical Necessity Statement*: As per medicine Coding Level of Care Code Acute Code for Chg Fwd Diagnoses Status post below-knee amputation of left lower extremity Z89.512
[2022-07-03] MEDS: vancomycin 1,000 MG in sodium chloride 0.9% 250 ML 250 MG IV (21:37)
[2022-07-04] VITALS: BP 109/72; PULSE 99; RESP 16; TEMP 36.6; O2SAT 95
[2022-07-04 03:00] VITALS: RESP 16
[2022-07-04] MEDS: oxyCODONE 5 mg IR Tab/Cap 10 MG PO (03:00)
[2022-07-04] MEDS: cyclobenzaprine 10 mg Tablet 5 MG PO (03:01)
[2022-07-04] MEDS: heparin 5,000 unit/mL INJ 1 mL 5000 UNIT SUBCUT (03:01)
[2022-07-04 04:00] VITALS: BP 109/54; PULSE 89; RESP 17; TEMP 36.5; O2SAT 96
[2022-07-04] MEDS: acetaminophen 500 mg Tablet 1000 MG PO (05:22)
[2022-07-04] MEDS: insulin glargine 100 units/1 mL 40 UNIT SUBCUT (05:22)
[2022-07-04 05:46] LABS: Basophils # 0.1 10^3/uL (0.0-0.1); Basophils % 0.6 %; Eosinophils # 0.3 10^3/uL (0.0-0.8); Eosinophils % 2.1 %; Hematocrit 27.2 % (37.0-47.0); Hemoglobin 7.8 g/dL (11.5-15.3); Lymphocytes # 1.8 10^3/uL (0.8-4.8); Lymphocytes % 12.5 %; Mean Corpuscular HGB Conc 28.7 g/dL (30.0-36.0); Mean Corpuscular Hemoglobin 29.2 pg (28.0-34.0); Mean Corpuscular Volume 101.9 fl (81-99); Mean Platelet Volume 9.7 fL (7.4-10.4); Monocytes # 0.8 10^3/uL (0.2-0.9); Monocytes % 5.7 %; Neutrophils # 10.96 10^3/uL (1.8-7.7); Neutrophils % 77.6 %; Nucleated Red Blood Cells % 0 %; Platelet Count 520 10^3/cmm (130-400); Red Blood Count 2.67 10^6/uL (4.1-5.3); Red Cell Distribution Width 17.9 % (12.1-15.1); White Blood Count 14.1 10^3/uL (4.0-10.0)
[2022-07-04 06:08] LABS: Alanine Aminotransferase < 5 U/L (0-33); Albumin Level 2.9 g/dL (3.5-5.2); Alkaline Phosphatase 121 U/L (35-105); Blood Urea Nitrogen 34 mg/dL (8-23); Carbon Dioxide 21 mmol/L (22-29); Chloride 97 mmol/L (98-107); Globulin 4.7 g/dL (1.3-4.6); Glucose 136 mg/dL (65-115); Osmolality Calculated 290 mOsm/kg (285-295); Sodium 135 mmol/L (136-145); Total Bilirubin 0.4 mg/dL (0.15-1.2); Total Protein 7.6 g/dL (6.6-8.7)
[2022-07-04 06:33] LABS: Glucose Point of Care 140 mg/dL (70-110)
[2022-07-04 06:34] LABS: Anion Gap 21.6 (5-19); Aspartate Amino Transferase 18 U/L (0-32); Potassium 4.6 mmol/L (3.5-5.1)
[2022-07-04 07:43] VITALS: PULSE 89; RESP 16; O2SAT 96
[2022-07-04] MEDS: budesonide 0.5 mg/2 mL Neb INHALATION (07:43)
[2022-07-04] MEDS: ipratropium-albuterol 3 mL Neb INHALATION (07:43)
[2022-07-04 08:00] VITALS: BP 108/67; PULSE 96; RESP 15; TEMP 36.9; O2SAT 95
--- NOTE | 2022-07-04 08:01 | P.PN_ITS ---
Subjective Subjective: s/p HD yesterday Medications: Reviewed: Yes Vitals/I&O/Wt Last Vital Signs Temp 97.7 F 07/04/22 04:00 Pulse 89 07/04/22 07:43 Resp 16 07/04/22 07:43 BP 109/54 07/04/22 04:00 Pulse Ox 96 07/04/22 07:43 O2 Del Method 07/04/22 07:43 O2 Flow Rate 96 07/02/22 21:18 07/03/22 07/04/22 07/04/22 22:59 06:59 14:59 Intake Total 1510 / 1870 250 / 2120 Output Total 2989 / 2989 Balance -1479 / -1119 250 / -869 Weight last 48 hrs Weight 112.6 kg Physical Exam 2 Narrative: awake , alert , no acute distress HEENT S1 S2 RRR per report Clear jennie per report Data 07/04/22 05:39 07/04/22 05:39 Micro: Microbiology 06/26/22 13:00 Blood Culture - Final Blood Corynebacterium species Micrococcus and related genera A&P Assessment and plan (1) ESRD on hemodialysis: Plan End-stage renal disease: On dialysis per MWF schedule, HD tomorow Hypertension: Blood pressure controlled, restartedhome meds Left foot gangrene: Surgery following, s/p Left BKA Anemia: We will give Epogen Patient evaluated using audiovisual cart. Time spent 30 minutes Attestations Medical Necessity Statement*: As per medicine Coding Level of Care Code Acute Code for [facility] Fwd Diagnoses ESRD on hemodialysis N18.6; Z99.2
[2022-07-04] MEDS: metoprolol tartrate 50 mg Tablet 100 MG PO (09:42)
[2022-07-04] MEDS: gabapentin 100 mg Capsule 200 MG PO (09:42)
[2022-07-04] MEDS: clopidogrel 75 mg Tablet PO (09:42)
[2022-07-04] MEDS: aspirin 81 mg EC Tablet PO (09:42)
[2022-07-04] MEDS: carbidopa-levodopa 25-100mg Tablet 2 EACH PO (09:42)
[2022-07-04 11:24] LABS: Glucose Point of Care 169 mg/dL (70-110)
--- NOTE | 2022-07-04 11:31 | PC.NURSE ---
Report called to Kaylee Meade LPN at [facility] at 11:30
[2022-07-04 12:00] VITALS: BP 131/78; PULSE 86; RESP 16; TEMP 36.6; O2SAT 96
[2022-07-04] MEDS: insulin lispro 100 unit/1 mL SUBCUT (12:46)
--- NOTE | 2022-07-04 13:24 | PM.PN ---
Subjective Subjective: Patient could not be discharged yesterday as the residential which had previously agreed to take the patient had refused at the time of discharge. Patient has now been accepted at [facility]. No acute events overnight. Patient has remained hemodynamically stable and afebrile. Patient tolerated dialysis well. Plan for discharge today on advised to follow-up with primary care provider within next 1 week. Patient to continue taking her home medications as before. She is discharged on fentanyl patch and oxycodone every 6 hourly as needed. She is to follow-up with wound care as an outpatient. Discharge plan discussed in detail with patient. She verbalized understanding. All the questions were answered. Medications: Reviewed: Yes Vitals/I&O/Wt Last Vital Signs Temp 97.9 F 07/04/22 12:00 Pulse 86 07/04/22 12:00 Resp 16 07/04/22 12:00 BP 131/78 07/04/22 12:00 Pulse Ox 96 07/04/22 12:00 O2 Del Method 07/04/22 07:43 O2 Flow Rate 96 07/02/22 21:18 07/03/22 07/04/22 07/04/22 22:59 06:59 14:59 Intake Total 1510 / 1870 250 / 2120 200 / 200 Output Total 2989 / 2989 Balance -1479 / -1119 250 / -869 200 / 200 Weight last 48 hrs Weight 112.6 kg Physical Exam Narrative: General: No acute distress, AO x3 HEENT: PERRLA, pupils bilaterally equal and reactive Chest: Normal vesicular breath sounds, no added sounds, equal good air entry bilaterally CVS: S1-S2 regular, no murmurs, no tachycardia, no gallops, no rubs Abdomen: Soft, nontender, no organomegaly, bowel sounds present Neuro: No focal deficits, no facial deformity, AO x3, power 5/5 in all limbs EXT: Left BKA, surgical dressing not opened for exam. Right chronic plantar foot ulcer, continue [facility] management Data 07/04/22 05:39 07/04/22 05:39 Micro: Microbiology 06/26/22 13:00 Blood Culture - Final Blood Corynebacterium species Micrococcus and related genera A&P Assessment and plan (1) ESRD on hemodialysis: (2) Status post below-knee amputation of left lower extremity: (3) Diabetic ulcer of left foot: (4) Diabetic peripheral neuropathy associated with type 2 diabetes mellitus: (5) Anemia of chronic disease: (6) Cellulitis of left foot: Plan 77-year-old female with CKD on hemodialysis admitted to the hospital on June 26, 2022 with worsening left lower extremity wounds over her foot and worsening new wound over her third digit. Initially underwent left third toe amputation with podiatry, however thereafter due to recurrence of wounds and failure to improve with multiple courses of antibiotics and conservative measures, patient elected to undergo left BKA which she has now completed on June 29, 2022. #Recurrent left lower extremity wounds, known Charcot's foot deformity, plantar ulceration, initially status post left third toe amputation. Patient had significant limitations in her mobility due to recurrence of her wounds and failure to improve with conservative measures and elected to undergo left BKA. She underwent this surgery on June 29, 2022. Currently her pain is much better controlled after optimizing her medications to fentanyl 50 ewa patch , Tylenol to 1000 mg every 8 hours, oxycodone IR 10 mg p.o. every 4 as needed alternating with Dilaudid 1 mg every 6 hours as neede. Gabapentin has been increased to 200 mg 3 times daily earlier this admission. # currently on cefepime and vancomycin with dialysis. Now that patient is post BKA, do not anticipate longer-term use of antibiotics, will likely discontinue at discharge if her stump is healing satisfactorily. Outpatient wound culture from June 20 with Enterobacter cloacae and MRSA. Blood culture negative this admission. #Recent history of MRSA bacteremia in March 2022, source was not clearly identified but possibly thought to be related to MRSA pneumonia. Blood culture is negative this admission. Plan to discontinue vancomycin at discharge. She has completed a prolonged adequate course and has essentially remained on IV vancomycin for over 8 weeks since April 19, 2022. # Hypokalemia: Repleted # Diabetic: Insulin with sliding scale #Recent PCI with RCA stent: Continue Plavix 75 mg p.o. daily and aspirin 81 mg p.o. daily. Also continue atorvastatin, metoprolol. # Remote history of PE not on anticoagulating agent # Anemia of chronic disease state stable Hb at 8.5 Dispo: Encouraged to work with PT OT, will transition to [facility], transport N/a over the weekened Dvt ppx: Start heparin 5000 q12h DNR/ DNI Attestations Medical Necessity Statement*: Plan to discharge today. Date of discharge 07/04. Diagnoses ESRD on hemodialysis N18.6; Z99.2 Status post below-knee amputation of left lower extremity Z89.512 Diabetic ulcer of left foot E11.621; L97.529 Diabetic peripheral neuropathy associated with type 2 diabetes mellitus E11.42 Anemia of chronic disease D63.8 Cellulitis of left foot L03.116
== END 2022-07-04 13:40 | disposition skilled nursing facility (03) | DRG 239 ==
LOC: ER 13:40 → MEDSURG 15:04
PROVIDERS: Orthopaedic Surgery; Podiatrist Foot & Ankle Surgery; Student in an Organized Health Care Education/Training Program; Admitting Provider Internal Medicine; Emergency Provider Family Medicine; PCP Family Medicine; Visit Provider Student in an Organized Health Care Education/Training Program
PROC: 0Y6U0Z0 Detachment at Left 3rd Toe, Complete, Open Approach (ICD-10-PCS; principal; 2022-06-27 12:00)
PROC: 0Y6J0Z1 Detachment at Left Lower Leg, High, Open Approach (ICD-10-PCS; CPT 27880; principal; 2022-06-29 13:45)
DX: E11.52 Type 2 diabetes mellitus with diabetic peripheral angiopathy with gangrene (principal); A48.0 Gas gangrene; N18.6 End stage renal disease; L03.116 Cellulitis of left lower limb; N17.9 Acute kidney failure, unspecified; I13.2 Hypertensive heart and chronic kidney disease with heart failure and with stage 5 chronic kidney disease, or end stage renal disease; E11.621 Type 2 diabetes mellitus with foot ulcer; L97.523 Non-pressure chronic ulcer of other part of left foot with necrosis of muscle; E11.22 Type 2 diabetes mellitus with diabetic chronic kidney disease; D63.1 Anemia in chronic kidney disease; E11.40 Type 2 diabetes mellitus with diabetic neuropathy, unspecified; E11.610 Type 2 diabetes mellitus with diabetic neuropathic arthropathy; G20 Parkinson's disease; E78.5 Hyperlipidemia, unspecified; I50.9 Heart failure, unspecified; J44.9 Chronic obstructive pulmonary disease, unspecified; I25.10 Atherosclerotic heart disease of native coronary artery without angina pectoris; E66.01 Morbid (severe) obesity due to excess calories; E87.6 Hypokalemia; G89.29 Other chronic pain; M21.42 Flat foot [pes planus] (acquired), left foot; M21.6X2 Other acquired deformities of left foot; Z86.711 Personal history of pulmonary embolism; Z79.02 Long term (current) use of antithrombotics/antiplatelets; Z79.82 Long term (current) use of aspirin; Z79.4 Long term (current) use of insulin; Z99.2 Dependence on renal dialysis; Z86.73 Personal history of transient ischemic attack (TIA), and cerebral infarction without residual deficits; Z87.891 Personal history of nicotine dependence; Z89.422 Acquired absence of other left toe(s); Z95.5 Presence of coronary angioplasty implant and graft; Z68.38 Body mass index [BMI] 38.0-38.9, adult; Z86.14 Personal history of Methicillin resistant Staphylococcus aureus infection; Z87.01 Personal history of pneumonia (recurrent); Z75.1 Person awaiting admission to adequate facility elsewhere; Z89.421 Acquired absence of other right toe(s)
CPT/HCPCS: 11042; 12345; 36415; 36416; 36430; 71045; 73620; 73630; 73701; 80048; 80053; 80202; 81001; 82962; 83735; 84100; 85007; 85025; 86140; 86850; 86900; 86920; 87040; 87205; 87426; 88305; 88307; 88311; 90935; 92523; 92610; 93005; 94640; 96372; 97110; 97162; 97166; 97530; 99213; 99285; J0692; J1170; J1200; J1644; J1815; J2270; J2543; J2704; J2795; J3010; J3370; J3490; J7030; J7050; J7613; J7626; P9016; Q3014; Q9967

== ENCOUNTER 2022-07-13 14:39 | Outpatient (CLI) | payer MEDICARE, OTHER, SELFPAY ==
[2022-07-13 14:58] LABS: Basophils # 0.1 10^3/uL (0.0-0.1); Basophils % 0.8 %; Eosinophils # 0.3 10^3/uL (0.0-0.8); Eosinophils % 2.9 %; Lymphocytes # 1.6 10^3/uL (0.8-4.8); Lymphocytes % 14.1 %; Mean Corpuscular HGB Conc 30.6 g/dL (30.0-36.0); Mean Corpuscular Hemoglobin 29.9 pg (28.0-34.0); Mean Corpuscular Volume 97.6 fl (81-99); Mean Platelet Volume 10.4 fL (7.4-10.4); Monocytes # 0.8 10^3/uL (0.2-0.9); Monocytes % 6.6 %; Neutrophils # 8.54 10^3/uL (1.8-7.7); Nucleated Red Blood Cells % 0 %; Platelet Count 333 10^3/cmm (130-400); Red Blood Count 2.11 10^6/uL (4.1-5.3); Red Cell Distribution Width 17.7 % (12.1-15.1); White Blood Count 11.5 10^3/uL (4.0-10.0)
[2022-07-13 15:16] LABS: Hematocrit 20.6 % (37.0-47.0); Hemoglobin 6.3 g/dL (11.5-15.3)
== END 2022-07-13 14:40 | disposition home or self-care (01) ==
PROVIDERS: Internal Medicine; PCP Family Medicine; Visit Provider Family Medicine
DX: D50.9 Iron deficiency anemia, unspecified (principal)
CPT/HCPCS: 85025

== ENCOUNTER 2022-07-13 16:19 | Inpatient (IN) | payer OTHER, MEDICARE, SELFPAY ==
[2022-07-13] VITALS (11 sets, daily range): BP systolic 107–153; BP diastolic 41–68; PULSE 65–76; RESP 16–25; TEMP 36.6–36.9; O2SAT 91–98; BMI 37.5
--- NOTE | 2022-07-13 16:38 | W.ED.RECABL ---
HPI - Recheck/Abnormal Lab/Rx General: Chief Complaint: Recheck/Abnormal Lab/Rx Stated Complaint: LOW HEMOGLOBIN Time Seen by Provider: 07/13/22 16:27 History of Present Illness: Patient sent over from the retirement for abnormal labs, hemoglobin 6.3. Patient did states she had a severe nosebleed yesterday and throughout the night. Patient states she has no other obvious loss of blood. Patient is a dialysis patient and just recently had a left below the knee amputation approximately 2 weeks ago. Patient's nosebleed has stopped and patient has no complaints at this time. MD complaint: abnormal lab Description of abnormal result: Patient had labs earlier today through the retirement which showed a hemoglobin of 6.3 Symptoms since prior visit: no new symptoms Context: called for abnormal lab result Associated symptoms: none Treatments prior to arrival: other (None) Review of Systems General: Reports: 10 or more systems reviewed and unremarkable except in HPI and below Const: Denies: fever(s) or chills Eyes: Denies: change in vision ENMT: Reports: epistaxis (Nosebleed yesterday and throughout the night but stopped this morning); Denies: throat pain or odynophagia Card: Denies: chest pain, palpitations or irregular heart rhythm Resp: Denies: dyspnea, productive cough or non-productive cough GI: Denies: abdominal pain, nausea, vomiting or diarrhea : Denies: flank pain, difficulty voiding or dysuria Musc: Denies: neck pain, back pain or extremity pain Skin/Breast: Denies: rash, pruritus or erythema Neuro: Denies: headache(s) or numbness in extremities Psych: Denies: anxiety or depression Endo: Denies: polyuria or polydipsia Tank/Lymph: Reports: easy bruising [facility] PFSH: Medical History Acute exacerbation of CHF (congestive heart failure) Anemia in chronic illness Bilateral lower extremity edema CAD (coronary artery disease) Charcot's joint of left foot Chest pain Chronic insomnia Chronic kidney disease Chronic renal insufficiency 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 COPD (chronic obstructive pulmonary disease) Diabetes mellitus type 2, insulin dependent Diabetic neuropathy Elevated troponin ESRD (end stage renal disease) ESRD (end stage renal disease) Fibromyalgia Goals of care, counseling/discussion History of CVA (cerebrovascular accident) History of pulmonary embolism Hyperlipemia Hypertension Hyponatremia Hypothyroidism Influenza A Iron deficiency anemia Lumbar disc disease with radiculopathy MRSA bacteremia Neuropathy Parkinson disease Pneumonia Post laminectomy syndrome Pulmonary hypertension Sciatica associated with disorder of lumbosacral spine Stage 4 chronic renal impairment associated with type 2 diabetes mellitus Uncontrolled insulin dependent diabetes mellitus Vitamin D deficiency Surgical History History of colonoscopy 2020 Hx of cholecystectomy Hx of foot surgery Hx of hysterectomy S/P dialysis catheter insertion Family History Father CAD (coronary artery disease) Mother CAD (coronary artery disease) Diabetes Grandfather CAD (coronary artery disease) Diabetes Social History Smoking and tobacco status: former smoker Second hand smoke exposure: No Alcohol intake: current Alcohol intake frequency: holidays/special occasions only Alcohol type: hard liquor Physical Exam Const: COMMON NORMALS: no acute distress, average body habitus, patient oriented x3, no limitations, healthy appearing and alert HENMT: COMMON NORMALS: normocephalic, atraumatic, hearing grossly normal bilaterally and moist oral mucous membranes HEAD & SCALP: normocephalic and atraumatic Neck/C-Spine: COMMON NORMALS: full ROM, no lymphadenopathy, supple, no JVD and Thyroid normal THYROID: Thyroid normal Chest: COMMONS NORMALS: normal inspection of the chest and normal palpation of entire chest wall Resp: COMMON NORMALS: normal respiratory effort, No retractions, No use of accessory muscles and clear to auscultation bilaterally AUSCULTATION: clear to auscultation bilaterally Cardio: COMMON NORMALS: no JVD, regular rate, regular rhythm, S1 normal heart sound present and S2 normal heart sound present RATE: regular rate RHYTHM: regular rhythm HEART SOUNDS: S1 normal heart sound present and S2 normal heart sound present GI: COMMON NORMALS: Normal to inspection, nondistended, normoactive bowel sounds present, Soft to palpation, non-tender, No hepatosplenomegaly present and no masses PALPATION: Yes Soft to palpation and Yes No hepatosplenomegaly present Extremity: NARRATIVE EXTREMITY EXAM: Left below the knee amputation with dressing is clean dry and intact Neuro: COMMON NORMALS: patient oriented x3 SENSORIUM/ORIENTATION: Yes alert Course Vital Signs: Vital signs: Vital Signs Temperature 98.2 F 07/13/22 16:27 Pulse Rate 67 07/13/22 18:24 Respiratory Rate 18 07/13/22 19:45 Blood Pressure 148/41 07/13/22 18:24 Pulse Oximetry 92 07/13/22 19:45 Oxygen Delivery Me thod 07/13/22 18:03 MDM - Recheck/Abnormal Lab/Rx Medical Decision Making Patient presents to the ER from the retirement with a hemoglobin of 6.3. Patient states she has a nosebleed yesterday throughout the night but is not bleeding currently. Patient is a dialysis patient. Patient is also on Plavix. Labs will be redrawn patient will be typed and screened, Dr. Lee was consulted who agreed to accept the patient for admission and transfusion. Lab Data I reviewed the patient's lab results. 07/13/22 16:57 07/13/22 16:57 Laboratory Results WBC 11.0 10^3/uL (4.0-10.0) H 07/13/22 16:57 RBC 2.13 10^6/uL (4.1-5.3) L 07/13/22 16:57 Hgb 6.3 g/dL (11.5-15.3) L* 07/13/22 16:57 Hct 20.9 % (37.0-47.0) L 07/13/22 16:57 MCV 98.1 fl (81-99) 07/13/22 16:57 MCH 29.6 pg (28.0-34.0) 07/13/22 16:57 MCHC 30.1 g/dL (30.0-36.0) 07/13/22 16:57 RDW 17.7 % (12.1-15.1) H 07/13/22 16:57 Plt Count 325 10^3/cmm (130-400) 07/13/22 16:57 MPV 10.3 fL (7.4-10.4) 07/13/22 16:57 Neut % (Auto) 72.7 % 07/13/22 16:57 Lymph % (Auto) 15.2 % 07/13/22 16:57 [place] % (Auto) 7.0 % 07/13/22 16:57 Eos % (Auto) 3.1 % 07/13/22 16:57 Baso % (Auto) 0.5 % 07/13/22 16:57 Neut # (Auto) 8.02 10^3/uL (1.8-7.7) H 07/13/22 16:57 Lymph # (Auto) 1.7 10^3/uL (0.8-4.8) 07/13/22 16:57 [place] # (Auto) 0.8 10^3/uL (0.2-0.9) 07/13/22 16:57 Eos # (Auto) 0.3 10^3/uL (0.0-0.8) 07/13/22 16:57 Baso # (Auto) 0.1 10^3/uL (0.0-0.1) 07/13/22 16:57 Nucleated RBC % (auto) 0 % 07/13/22 16:57 Nucleated RBCs # 0.0 /100WBC 07/13/22 16:57 PT 15.20 SECONDS (12.1-14.9) H 07/13/22 16:57 INR 1.16 (0.8-1.2) 07/13/22 16:57 Sodium 136 mmol/L (136-145) 07/13/22 16:57 Potassium 4.8 mmol/L (3.5-5.1) 07/13/22 16:57 Chloride 94 mmol/L (98-107) L 07/13/22 16:57 Carbon Dioxide 29 mmol/L (22-29) 07/13/22 16:57 Anion Gap 17.8 (5-19) 07/13/22 16:57 BUN 42 mg/dL (8-23) H 07/13/22 16:57 Creatinine 3.8 mg/dL (0.5-0.9) H 07/13/22 16:57 GFR Calculation Not Reportable 07/13/22 16:57 Glucose 128 mg/dL (65-115) H 07/13/22 16:57 Calculated Osmolality 294 mOsm/kg (285-295) 07/13/22 16:57 Calcium 8.9 mg/dL (8.5-10.5) 07/13/22 16:57 Iron 89 ug/dL (37-145) 07/13/22 16:57 Total Bilirubin 0.3 mg/dL (0.15-1.2) 07/13/22 16:57 AST 18 U/L (0-32) 07/13/22 16:57 ALT < 5 U/L (0-33) 07/13/22 16:57 Alkaline Phosphatase 108 U/L (35-105) H 07/13/22 16:57 Total Protein 7.0 g/dL (6.6-8.7) 07/13/22 16:57 Albumin 3.3 g/dL (3.5-5.2) L 07/13/22 16:57 Globulin 3.7 g/dL (1.3-4.6) 07/13/22 16:57 Vitamin B12 694 pg/mL (232-1245) 07/13/22 16:57 Blood Type O Positive 07/13/22 16:57 Rho(D) Type Positive 07/13/22 16:57 Antibody Screen Negative 07/13/22 16:57 Crossmatch See Detail 07/13/22 16:57 Discharge Plan Discharge Patient Disposition: Admitted As Inpatient Admit Provider: Gonzalo Loaiza Clinical Impression: Hemoglobin low, History of epistaxis, Chronic renal failure Condition: Stable Coding Level of Care Code ED Director Of Online Education for Dominick Baca
[2022-07-13 17:14] LABS: Basophils # 0.1 10^3/uL (0.0-0.1); Basophils % 0.5 %; Eosinophils # 0.3 10^3/uL (0.0-0.8); Eosinophils % 3.1 %; Hematocrit 20.9 % (37.0-47.0); Lymphocytes # 1.7 10^3/uL (0.8-4.8); Lymphocytes % 15.2 %; Mean Corpuscular HGB Conc 30.1 g/dL (30.0-36.0); Mean Corpuscular Hemoglobin 29.6 pg (28.0-34.0); Mean Corpuscular Volume 98.1 fl (81-99); Mean Platelet Volume 10.3 fL (7.4-10.4); Monocytes # 0.8 10^3/uL (0.2-0.9); Neutrophils # 8.02 10^3/uL (1.8-7.7); Neutrophils % 72.7 %; Nucleated Red Blood Cells % 0 %; Platelet Count 325 10^3/cmm (130-400); Red Blood Count 2.13 10^6/uL (4.1-5.3); Red Cell Distribution Width 17.7 % (12.1-15.1)
[2022-07-13 17:20] LABS: Hemoglobin 6.3 g/dL (11.5-15.3)
[2022-07-13 17:39] LABS: INR 1.16 (0.8-1.2)
[2022-07-13 17:42] LABS: Alanine Aminotransferase < 5 U/L (0-33); Albumin Level 3.3 g/dL (3.5-5.2); Alkaline Phosphatase 108 U/L (35-105); Blood Urea Nitrogen 42 mg/dL (8-23); Calcium 8.9 mg/dL (8.5-10.5); Carbon Dioxide 29 mmol/L (22-29); Chloride 94 mmol/L (98-107); Globulin 3.7 g/dL (1.3-4.6); Glucose 128 mg/dL (65-115); Osmolality Calculated 294 mOsm/kg (285-295); Sodium 136 mmol/L (136-145); Total Bilirubin 0.3 mg/dL (0.15-1.2)
[2022-07-13 17:46] LABS: Anion Gap 17.8 (5-19); Aspartate Amino Transferase 18 U/L (0-32); Potassium 4.8 mmol/L (3.5-5.1)
--- NOTE | 2022-07-13 18:05 | PC.PHAR ---
attempted to contact [facility] for med list at [phone] with no fax back
--- NOTE | 2022-07-13 18:08 | P.HP_ITS ---
Providers/Chief Complaint Admitting Physician: Gonzalo Loaiza MD Primary Care Provider: Brandi Escalera MD Chief Complaint: LOW HEMOGLOBIN History of Present Illness Meghna Chaudhari is a 77 year old female end-stage renal disease Sunday dialysis dependent, was recently discharged after below-knee amputation 06/29 she has history of MRSA bacteremia, she finished course of cefepime vancomycin which was stopped after below-knee amputation presented with chief complaint of abnormal blood work. Hemoglobin is below 7 that prompted her visit to the ER. Patient has been noticing some epistaxis for last 24 hours patient is stating that it took 3 boxes of Kleenex to stop the bleeding, she has not noticed any chest pain shortness of breath, hematochezia, hemoptysis hematemesis. In the ER I was asked to admit the patient for blood transfusion, she is stable, next session is tomorrow she is from [facility] senior care Review of Systems Const: Denies: fever(s) Eyes: Denies: change in vision ENMT: Reports: epistaxis; Denies: throat pain Card: Denies: chest pain Resp: Denies: dyspnea GI: Denies: abdominal pain : Denies: flank pain Musc: Denies: neck pain Skin/Breast: Denies: rash Neuro: Denies: headache(s) Psych: Denies: anxiety Endo: Denies: polyuria Tank/Lymph: Denies: easy bruising All/Imm: Denies: urticaria Medications/Allergies Home Medications Medication Instructions Recorded Confirmed Last Taken Type albuterol sulfate 90 mcg/actuation 2 puff inhalation Q6H PRN Wheezing 04/07/22 07/06/22 Unknown History aerosol inhaler (ProAir HFA) benzonatate 100 mg capsule 100 mg PO Q8H PRN Cough 04/07/22 07/06/22 Unknown History bimatoprost 0.01 % eye drops 1 drp ophthalmic (eye) BEDTIME 04/07/22 07/06/22 06/25/22 History (Lumigan) budesonide 0.5 mg/2 mL suspension 0.5 mg inhalation Q12H 04/07/22 07/06/22 06/25/22 History for nebulization calcium alginate 2 X 2 bandage 04/07/22 07/06/22 Unknown History carbidopa 25 mg-levodopa 100 mg 2 tab PO TID 04/07/22 07/06/22 06/26/22 History tablet cholecalciferol (vitamin D3) 50 6,000 unit PO DAILY 04/07/22 07/06/22 06/26/22 History mcg (2,000 unit) capsule (Vitamin D3) clonidine HCl 0.3 mg tablet 0.3 mg PO Q8H PRN systolic bp >160 04/07/22 07/06/22 Unknown History cyclobenzaprine 5 mg tablet 5 mg PO Q8H PRN Muscle Spasm 04/07/22 07/06/22 06/26/22 History fluticasone propionate 115 2 puff inhalation BID 04/07/22 07/06/22 06/26/22 History mcg-salmeterol 21 mcg/actuation HFA inhaler (Advair HFA) furosemide 40 mg tablet (Lasix) 40 mg PO BID 04/07/22 07/06/22 06/26/22 History hydroxyzine HCl 25 mg tablet 25 mg PO Q8H PRN Itching 04/07/22 07/06/22 Unknown History hydroxyzine pamoate 25 mg capsule 25 mg PO QPM 04/07/22 07/06/22 06/25/22 History insulin aspart U-100 100 unit/mL See Rx Instructions .Route .COMPLEX 04/07/22 07/06/22 06/26/22 History (3 mL) subcutaneous pen (Novolog FlexPen U-100 Insulin aspart) insulin glargine 100 unit/mL (3 40 unit SUBCUT DAILY@06 04/07/22 07/06/22 06/26/22 History mL) subcutaneous pen (Lantus Solostar U-100 Insulin) ipratropium 0.5 mg-albuterol 3 mg 3 ml inhalation Q6H PRN Cough 04/07/22 07/06/22 Unknown History (2.5 mg base)/3 mL nebulization soln loperamide 2 mg tablet (Imodium 2 mg PO Q6H PRN Loose Stool 04/07/22 07/06/22 06/26/22 History A-D) losartan 50 mg tablet 50 mg PO BEDTIME 04/07/22 07/06/22 06/25/22 History menthol 4 % topical gel (Biofreeze See Rx Instructions .Route .COMPLEX 04/07/22 07/06/22 Unknown History (menthol)) metolazone 5 mg tablet 5 mg PO QAM 04/07/22 07/06/22 06/26/22 History metoprolol tartrate 100 mg tablet 100 mg PO BID 04/07/22 07/06/22 06/26/22 Hist ory mirtazapine 30 mg tablet 30 mg PO BEDTIME@21 04/07/22 07/06/22 06/25/22 History neomycin-bacitracn Zn-polymyx 3.5 See Rx Instructions .Route .COMPLEX 04/07/22 07/06/22 Unknown History mg-400 unit-5,000 unit/gram top oint (Neosporin (ant-wpm-xkiwn)) ondansetron HCl 4 mg tablet 4 mg PO Q8H PRN Nausea And Vomiting 04/07/22 07/06/22 Unknown History promethazine-DM 6.25 mg-15 mg/5 mL 5 ml PO Q4H PRN Cough 04/07/22 07/06/22 Unknown History oral syrup ropinirole 0.5 mg tablet 0.5 mg PO QPM 04/07/22 07/06/22 06/25/22 History sertraline 50 mg tablet 50 mg PO DAILY 04/07/22 07/06/22 06/26/22 History simvastatin 40 mg tablet 40 mg PO BEDTIME@21 04/07/22 07/06/22 06/25/22 History solifenacin 5 mg tablet 5 mg PO QAM 04/07/22 07/06/22 06/26/22 History thyroid (pork) 90 mg tablet 90 mg PO DAILY 04/07/22 07/06/22 06/26/22 History ([place] Thyroid) vitamin B complex and vitamin C 1 cap PO QPM 04/07/22 07/06/22 06/25/22 History no.20-folic acid 1 mg capsule (Renal Caps) diphenhydramine HCl 25 mg tablet 25 mg PO Q24H PRN Itching 05/14/22 07/06/22 Unknown History (Banophen) aspirin 81 mg tablet,delayed 81 mg PO DAILY #30 tabs 05/17/22 07/06/22 06/26/22 Rx release clopidogrel 75 mg tablet (Plavix) 75 mg PO QPM 30 days #30 tabs 05/17/22 07/06/22 06/25/22 Rx temazepam 7.5 mg capsule 7.5 mg PO BEDTIME 06/26/22 07/06/22 06/25/22 History acetaminophen 500 mg tablet 1,000 mg PO Q8H PRN Pain #30 tabs 07/02/22 07/06/22 06/26/22 Rx gabapentin 100 mg capsule 200 mg PO TID #30 caps 07/02/22 07/06/22 06/26/22 Rx doxycycline hyclate 100 mg capsule 100 mg PO BID 5 days #10 caps 07/03/22 07/06/22 06/26/22 Rx fentanyl 37.5 mcg/hour transdermal 1 patch transdermal Q72H #5 ea 07/04/22 07/06/22 Unknown Rx patch oxycodone-acetaminophen 1 tab PO Q6H PRN pain (scale score 07/04/22 07/06/22 Unknown Rx 7-10) #20 caps Allergies Allergy/AdvReac Type Severity Reaction Status Date / Time sulfamethoxazole Allergy Rash Verified 07/13/22 16:29 [From Septra] trimethoprim [From Septra] Allergy Rash Verified 07/13/22 16:29 morphine AdvReac Personality Verified 07/13/22 16:29 Change pregabalin [From Lyrica] AdvReac Loopy/Unste Verified 07/13/22 16:29 anoop PFSH Acute PFSH: Medical History Acute exacerbation of CHF (congestive heart failure) Anemia in chronic illness Bilateral lower extremity edema CAD (coronary artery disease) Charcot's joint of left foot Chest pain Chronic insomnia Chronic kidney disease Chronic renal insufficiency 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 COPD (chronic obstructive pulmonary disease) Diabetes mellitus type 2, insulin dependent Diabetic neuropathy Elevated troponin ESRD (end stage renal disease) ESRD (end stage renal disease) Fibromyalgia Goals of care, counseling/discussion History of CVA (cerebrovascular accident) History of pulmonary embolism Hyperlipemia Hypertension Hyponatremia Hypothyroidism Influenza A Iron deficiency anemia Lumbar disc disease with radiculopathy MRSA bacteremia Neuropathy Parkinson disease Pneumonia Post laminectomy syndrome Pulmonary hypertension Sciatica associated with disorder of lumbosacral spine Stage 4 chronic renal impairment associated with type 2 diabetes mellitus Uncontrolled insulin dependent diabetes mellitus Vitamin D deficiency Surgical History History of colonoscopy 2020 Hx of cholecystectomy Hx of foot surgery Hx of hysterectomy S/P dialysis catheter insertion Family History Father CAD (coronary artery disease) Mother CAD (coronary artery disease) Diabetes Grandfather CAD (coronary artery disease) Diabetes Social History Smoking and tobacco status: former smoker Second hand smoke exposure: No Alcohol intake: current Alcohol intake frequency: holidays/special occasions only Alcohol type: hard liquor Vitals/I&O/Wt Last Vital Signs Temp 98.2 F 07/13/22 16:27 Pulse 67 07/13/22 18:03 Resp 25 H 07/13/22 18:03 BP 148/41 07/13/22 18:03 Pulse Ox 91 07/13/22 18:03 O2 Del Method 07/13/22 18:03 Weight last 48 hrs Weight 108.862 kg Physical Exam Narrative: Patient is awake and alert Stable hemodynamically No tachycardia No active bleed No epistaxis Currently on room air Pleasant and cooperative Hemodynamically stable Pleasant cooperative EOMI, PERRLA Nonfocal neuro exam Data 07/13/22 16:57 07/13/22 16:57 A&P Assessment and plan (1) Hemoglobin low: (2) History of epistaxis: (3) Chronic renal failure: Qualifiers: Chronic kidney disease stage: unspecified stage Qualified Code(s): N18.9 - Chronic kidney disease, unspecified (4) Status post below-knee amputation of left lower extremity: (5) Diabetic ulcer of left foot: Plan Epistaxis Acute on chronic anemia Rule out GI bleed we will request FOBT My suspicion is related to anemia of chronic disease which got worse with recent epistaxis episode We will give her 1 unit PRBC End-stage renal disease Sunday Next session tomorrow DNR/DNI Renal diet Patient is from senior care She will most likely will be able to go back to senior care on Sunday Hold DVT prophylaxis with anticoagulating agent Hold aspirin and Plavix for 1 day which could be resumed at the time of disc harge if FOBT negative Attestations Medical Necessity Statement*: Anticipating discharge by tomorrow Diagnoses Hemoglobin low D64.9 History of epistaxis Z87.898 Chronic renal failure N18.9 Chronic kidney disease stage: unspecified stage Status post below-knee amputation of left lower extremity Z89.512 Diabetic ulcer of left foot E11.621; L97.529
--- NOTE | 2022-07-13 18:51 | P.CONIM_ITS ---
Providers/Reason For Consult Consulting Physician/Specialty*: Julia Eric DO, telenephrology Reason for Consult*: ESRD Requesting Physician: Gonzalo Loaiza MD Attending Physician: Gonzalo Loaiza MD Primary Care Provider: Brandi Escalera MD History of Present Illness History of Present Illness Meghna Chaudhari is a 77 year old female presenting for evaluation/treatment anemia from rehab where labs were drawn today. Hb 7.8 g/dL 9 days ago. + epistaxis today ESRD MWF, recent BKA. Has nonfunctioning AVF, using tunneled HD catheter Review of Systems Const: Reports: fatigue Card: Denies: chest pain Resp: Denies: dyspnea Medications/Allergies Home Medications Medication Instructions Recorded Confirmed Last Taken Type albuterol sulfate 90 mcg/actuation 2 puff inhalation Q6H PRN Wheezing 04/07/22 07/06/22 Unknown History aerosol inhaler (ProAir HFA) benzonatate 100 mg capsule 100 mg PO Q8H PRN Cough 04/07/22 07/06/22 Unknown History bimatoprost 0.01 % eye drops 1 drp ophthalmic (eye) BEDTIME 04/07/22 07/06/22 06/25/22 History (Lumigan) budesonide 0.5 mg/2 mL suspension 0.5 mg inhalation Q12H 04/07/22 07/06/22 06/25/22 History for nebulization calcium alginate 2 X 2 bandage 04/07/22 07/06/22 Unknown History carbidopa 25 mg-levodopa 100 mg 2 tab PO TID 04/07/22 07/06/22 06/26/22 History tablet cholecalciferol (vitamin D3) 50 6,000 unit PO DAILY 04/07/22 07/06/22 06/26/22 History mcg (2,000 unit) capsule (Vitamin D3) clonidine HCl 0.3 mg tablet 0.3 mg PO Q8H PRN systolic bp >160 04/07/22 07/06/22 Unknown History cyclobenzaprine 5 mg tablet 5 mg PO Q8H PRN Muscle Spasm 04/07/22 07/06/22 06/26/22 History fluticasone propionate 115 2 puff inhalation BID 04/07/22 07/06/22 06/26/22 History mcg-salmeterol 21 mcg/actuation HFA inhaler (Advair HFA) furosemide 40 mg tablet (Lasix) 40 mg PO BID 04/07/22 07/06/22 06/26/22 History hydroxyzine HCl 25 mg tablet 25 mg PO Q8H PRN Itching 04/07/22 07/06/22 Unknown History hydroxyzine pamoate 25 mg capsule 25 mg PO QPM 04/07/22 07/06/22 06/25/22 History insulin aspart U-100 100 unit/mL See Rx Instructions .Route .COMPLEX 04/07/22 07/06/22 06/26/22 History (3 mL) subcutaneous pen (Novolog FlexPen U-100 Insulin aspart) insulin glargine 100 unit/mL (3 40 unit SUBCUT DAILY@06 04/07/22 07/06/22 06/26/22 History mL) subcutaneous pen (Lantus Solostar U-100 Insulin) ipratropium 0.5 mg-albuterol 3 mg 3 ml inhalation Q6H PRN Cough 04/07/22 07/06/22 Unknown History (2.5 mg base)/3 mL nebulization soln loperamide 2 mg tablet (Imodium 2 mg PO Q6H PRN Loose Stool 04/07/22 07/06/22 06/26/22 History A-D) losartan 50 mg tablet 50 mg PO BEDTIME 04/07/22 07/06/22 06/25/22 History menthol 4 % topical gel (Biofreeze See Rx Instructions .Route .COMPLEX 04/07/22 07/06/22 Unknown History (menthol)) metolazone 5 mg tablet 5 mg PO QAM 04/07/22 07/06/22 06/26/22 History metoprolol tartrate 100 mg tablet 100 mg PO BID 04/07/22 07/06/22 06/26/22 History mirtazapine 30 mg tablet 30 mg PO BEDTIME@21 04/07/22 07/06/22 06/25/22 History neomycin-bacitracn Zn-polymyx 3.5 See Rx Instructions .Route .COMPLEX 04/07/22 07/06/22 Unknown History mg-400 unit-5,000 unit/gram top oint (Neosporin (ado-rjw-wkzeg)) ondansetron HCl 4 mg tablet 4 mg PO Q8H PRN Nausea And Vomiting 04/07/22 07/06/22 Unknown History promethazine-DM 6.25 mg-15 mg/5 mL 5 ml PO Q4H PRN Cough 04/07/22 07/06/22 Unknown History oral syrup ropinirole 0.5 mg tablet 0.5 mg PO QPM 04/07/22 07/06/22 06/25/22 History sertraline 50 mg tablet 50 mg PO DAILY 04/07/22 07/06/22 06/26/22 History simvastatin 40 mg tablet 40 mg PO BEDTIME@21 04/07/22 07/06/22 06/25/22 History solifenacin 5 mg tablet 5 mg PO QAM 04/07/22 07/06/22 06/26/22 History thyroid (pork) 90 mg tablet 90 mg PO DAILY 04/07/22 07/06/22 06/26/22 History ([place] Thyroid) vitamin B complex and vitamin C 1 cap PO QPM 04/07/22 07/06/22 06/25/22 History no.20-folic acid 1 mg capsule (Renal Caps) diphenhydramine HCl 25 mg tablet 25 mg PO Q24H PRN Itching 05/14/22 07/06/22 Unknown History (Banophen) aspirin 81 mg tablet,delayed 81 mg PO DAILY #30 tabs 05/17/22 07/06/22 06/26/22 Rx release clopidogrel 75 mg tablet (Plavix) 75 mg PO QPM 30 days #30 tabs 05/17/22 07/06/22 06/25/22 Rx temazepam 7.5 mg capsule 7.5 mg PO BEDTIME 06/26/22 07/06/22 06/25/22 History acetaminophen 500 mg tablet 1,000 mg PO Q8H PRN Pain #30 tabs 07/02/22 07/06/22 06/26/22 Rx gabapentin 100 mg capsule 200 mg PO TID #30 caps 07/02/22 07/06/22 06/26/22 Rx doxycycline hyclate 100 mg capsule 100 mg PO BID 5 days #10 caps 07/03/22 07/06/22 06/26/22 Rx fentanyl 37.5 mcg/hour transdermal 1 patch transdermal Q72H #5 ea 07/04/22 07/06/22 Unknown Rx patch oxycodone-acetaminophen 1 tab PO Q6H PRN pain (scale score 07/04/22 07/06/22 Unknown Rx 7-10) #20 caps Allergies Allergy/AdvReac Type Severity Reaction Status Date / Time sulfamethoxazole Allergy Rash Verified 07/13/22 18:16 [From Septra] trimethoprim [From Septra] Allergy Rash Verified 07/13/22 18:16 morphine AdvReac Personality Verified 07/13/22 18:16 Change pregabalin [From Lyrica] AdvReac Loopy/Unste Verified 07/13/22 18:16 anoop reviewed PFSH Acute PFSH: Medical History Acute exacerbation of CHF (congestive heart failure) Anemia in chronic illness Bilateral lower extremity edema CAD (coronary artery disease) Charcot's joint of left foot Chest pain Chronic insomnia Chronic kidney disease Chronic renal insufficiency 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 COPD (chronic obstructive pulmonary disease) Diabetes mellitus type 2, insulin dependent Diabetic neuropathy Elevated troponin ESRD (end stage renal disease) ESRD (end stage renal disease) Fibromyalgia Goals of care, counseling/discussion History of CVA (cerebrovascular accident) History of pulmonary embolism Hyperlipemia Hypertension Hyponatremia Hypothyroidism Influenza A Iron deficiency anemia Lumbar disc disease with radiculopathy MRSA bacteremia Neuropathy Parkinson disease Pneumonia Post laminectomy syndrome Pulmonary hypertension Sciatica associated with disorder of lumbosacral spine Stage 4 chronic renal impairment associated with type 2 diabetes mellitus Uncontrolled insulin dependent diabetes mellitus Vitamin D deficiency Surgical History History of colonoscopy 2020 Hx of cholecystectomy Hx of foot surgery Hx of hysterectomy S/P dialysis catheter insertion Family History Father CAD (coronary artery disease) Mother CAD (coronary artery disease) Diabetes Grandfather CAD (coronary artery disease) Diabetes Social History Smoking and tobacco status: former smoker Second hand smoke exposure: No Alcohol intake: current Alcohol intake frequency: holidays/special occasions only Alcohol type: hard liquor Vitals/I&O/Wt Last Vital Signs Temp 98.2 F 07/13/22 16:27 Pulse 67 07/13/22 18:24 Resp 25 H 07/13/22 18:24 BP 148/41 07/13/22 18:24 Pulse Ox 91 07/13/22 18:24 O2 Del Method 07/13/22 18:03 Weight last 48 hrs Weight 108.862 kg Physical Exam Const: COMMON NORMALS: no acute distress and alert Extremity: NARRATIVE EXTREMITY EXAM: BKA, 1+ edema Neuro: SENSORIUM/ORIENTATION: Yes alert Data 07/13/22 16:57 07/13/22 16:57 A&P Assessment and plan (1) ESRD on hemodialysis: seen via telemedicine with assistance of RN at bedside Plan 1. ESRD, HD MWF 2. Anemia 3. Diabetes 4. Hypertension Recommend: Continue HD MWF. Orders for tomorrow: 4h, 2L UF. Transfuse pRBC. Iron studies ordered. If iron deficient, iron load at dialysis. Also increase erythropoietin. No IVs, blood draws, BPs LUE. Coding Level of Care Code Acute Code for Chg Fwd Diagnoses ESRD on hemodialysis N18.6; Z99.2
[2022-07-13 19:09] LABS: Iron 89 ug/dL (37-145)
[2022-07-13 19:26] LABS: Vitamin B12 694 pg/mL (232-1245)
[2022-07-13] MEDS: oxyCODONE-APAP 5-325 mg Tablet 1 TAB PO (19:45)
[2022-07-13] MEDS: carbidopa-levodopa 25-100mg Tablet 2 EACH PO (20:38)
[2022-07-13] MEDS: gabapentin 100 mg Capsule 200 MG PO (20:38)
[2022-07-13] MEDS: losartan 50 mg Tablet PO (20:39)
[2022-07-13 20:51] LABS: Percent Saturation 42.3 % (20-50); Total Iron Binding Capacity 210 mcg/dl; Unsaturated Iron Binding 121 ug/dL (112-347)
[2022-07-13] MEDS: sodium chloride 0.9% 100 mL Bag 50 ML IV (21:33)
[2022-07-14] VITALS (15 sets, daily range): BP systolic 106–139; BP diastolic 39–78; PULSE 55–69; RESP 16–20; TEMP 34.8–37.1; O2SAT 93–100; BMI 40.0
[2022-07-14 06:08] LABS: Basophils # 0.1 10^3/uL (0.0-0.1); Basophils % 0.7 %; Eosinophils # 0.3 10^3/uL (0.0-0.8); Eosinophils % 3.5 %; Hematocrit 22.4 % (37.0-47.0); Hemoglobin 6.9 g/dL (11.5-15.3); Lymphocytes # 1.6 10^3/uL (0.8-4.8); Lymphocytes % 17.6 %; Mean Corpuscular HGB Conc 30.8 g/dL (30.0-36.0); Mean Corpuscular Hemoglobin 29.5 pg (28.0-34.0); Mean Corpuscular Volume 95.7 fl (81-99); Mean Platelet Volume 10.2 fL (7.4-10.4); Monocytes # 0.6 10^3/uL (0.2-0.9); Monocytes % 6.9 %; Neutrophils # 6.22 10^3/uL (1.8-7.7); Neutrophils % 69.9 %; Nucleated Red Blood Cells % 0 %; Platelet Count 274 10^3/cmm (130-400); Red Blood Count 2.34 10^6/uL (4.1-5.3); Red Cell Distribution Width 17.9 % (12.1-15.1); White Blood Count 8.9 10^3/uL (4.0-10.0)
[2022-07-14] MEDS: insulin glargine 100 units/1 mL 40 UNIT SUBCUT (06:08)
[2022-07-14 06:32] LABS: Blood Urea Nitrogen 48 mg/dL (8-23); Calcium 8.7 mg/dL (8.5-10.5); Carbon Dioxide 24 mmol/L (22-29); Chloride 97 mmol/L (98-107); Glucose 99 mg/dL (65-115); Magnesium 1.8 mg/dL (1.7-2.3); Osmolality Calculated 303 mOsm/kg (285-295); Sodium 140 mmol/L (136-145)
[2022-07-14 06:33] LABS: Anion Gap 23.9 (5-19); Potassium 4.9 mmol/L (3.5-5.1)
[2022-07-14 06:38] LABS: Glucose Point of Care 112 mg/dL (70-110)
[2022-07-14 06:42] LABS: Hepatitis B Surface Antigen Non-Reactive (Nonreactive); Hepatitis C Virus Antibody Non-Reactive (Nonreactive)
[2022-07-14 06:54] LABS: Slide Review Slide Review Perform
[2022-07-14] MEDS: gabapentin 100 mg Capsule 200 MG PO ×3 (08:37→20:29)
[2022-07-14] MEDS: cholecalciferol (vitamin D3) 1,000 unit Tablet 6000 UNIT PO (08:37)
[2022-07-14] MEDS: oxyCODONE-APAP 5-325 mg Tablet 1 TAB PO ×3 (08:38→21:39)
[2022-07-14] MEDS: carbidopa-levodopa 25-100mg Tablet 2 EACH PO ×3 (08:38→20:30)
[2022-07-14] MEDS: thyroid 60 mg Tablet 90 MG PO (08:39)
[2022-07-14] MEDS: metoprolol tartrate 50 mg Tablet 100 MG PO (08:40)
[2022-07-14] MEDS: pantoprazole 40 mg SDV IVP ×2 (08:41→17:57)
[2022-07-14] MEDS: epoetin alfa 10,000 unit/mL INJ 10000 UNIT SUBCUT (11:34)
[2022-07-14] MEDS: diphenhydrAMINE 50 mg/mL SDV 1mL IVP (11:34)
--- NOTE | 2022-07-14 13:14 | PC.NURSE ---
Blood product give by dialysis nurse verified by this nurse.
[2022-07-14] MEDS: heparin, porcine 1,000 unit/mL INJ 10 mL HE (13:25)
--- NOTE | 2022-07-14 13:39 | PM.PN ---
Subjective Subjective: seen during dialysis via telemedicine has headache and abdominal pain; upset that her cat is being euthanized Vitals/I&O/Wt Last Vital Signs Temp 97.7 F 07/14/22 13:13 Pulse 58 L 07/14/22 13:13 Resp 16 07/14/22 13:13 BP 114/39 07/14/22 13:13 Pulse Ox 97 07/14/22 10:02 O2 Del Method 07/14/22 10:02 O2 Flow Rate 2 07/14/22 10:02 07/13/22 07/14/22 07/14/22 22:59 06:59 14:59 Intake Total 500 / 500 500 / 1000 240 / 240 Balance 500 / 500 500 / 1000 240 / 240 Weight last 48 hrs Weight 115.938 kg Weight 108.862 kg Physical Exam Const: COMMON NORMALS: alert Extremity: NARRATIVE EXTREMITY EXAM: per RN LUE AVF + thrill, vessel is deep HD catheter exit site no signs of infection Neuro: SENSORIUM/ORIENTATION: Yes alert Data 07/14/22 05:46 07/14/22 05:46 A&P Assessment and plan (1) ESRD on hemodialysis: seen via telemedicine with assistance of RN at dialysis Plan 1. ESRD, HD MWF 2. Anemia, s/p transfusion 2u pRBC, plan for EGD tomorrow. Received epogen at dialysis 3. Diabetes 4. Hypertension Recommend: Continue HD MWF. No IVs, blood draws, BPs LUE. Attestations Medical Necessity Statement*: per primary service Time Spent in Patient Care: 16 - 35 minutes Coding Level of Care Code Acute Code for Chg Fwd Diagnoses ESRD on hemodialysis N18.6; Z99.2
[2022-07-14 14:05] LABS: Glucose Point of Care 103 mg/dL (70-110)
--- NOTE | 2022-07-14 15:16 | P.CONIM_ITS ---
Providers/Reason For Consult Consulting Physician/Specialty*: Magdiel Gay M.D./General Surgery Reason for Consult*: Anemia with dependence on oral anticoagulation and need to reinstitute therapy. Attending Physician: Gage Gomez MD Primary Care Provider: Brandi Escalera MD History of Present Illness History of Present Illness Meghna Chaudhari is a 77 year old female who presents with chronic end-stage renal disease and dialysis dependence, along with a recent history of what sounds like a profound epistaxis. This is of course complicated by her dependence on ASA a nd Plavix therapy. She has undergone transfusions with her hemodialysis, and hospitalist service is anxious to reinstitute oral anticoagulants. To this end, and to avoid occult UGI hemorrhage, they have requested EGD to assess for potential bleeding sites. Review of Systems General: Reports: 10 or more systems reviewed and unremarkable except in HPI and below Const: Denies: fever(s), chills or change in weight Eyes: Denies: yellow eyes ENMT: Reports: epistaxis (recent) Card: Denies: chest pain or palpitations Resp: Denies: dyspnea, wheezing or stridor GI: Denies: hematemesis, coffee ground emesis or hematochezia : Reports: other (Dialysis-dependent ESRD); Denies: flank pain Musc: Reports: other (recent BKA of left leg) Skin/Breast: Reports: sores (right foot) Endo: Reports: other (Diabetes mellitus type II) Medications/Allergies Home Medications Medication Instructions Recorded Confirmed Last Taken Type albuterol sulfate 90 mcg/actuation 2 puff inhalation Q6H PRN Wheezing 04/07/22 07/14/22 Unknown History aerosol inhaler (ProAir HFA) benzonatate 100 mg capsule 100 mg PO Q8H PRN Cough 04/07/22 07/14/22 Unknown History bimatoprost 0.01 % eye drops 1 drp ophthalmic (eye) BEDTIME 04/07/22 07/14/22 06/25/22 History (Lumigan) budesonide 0.5 mg/2 mL suspension 0.5 mg inhalation Q12H 04/07/22 07/14/22 06/25/22 History for nebulization calcium alginate 2 X 2 bandage 04/07/22 07/14/22 Unknown History carbidopa 25 mg-levodopa 100 mg 2 tab PO TID 04/07/22 07/14/22 06/26/22 History tablet cholecalciferol (vitamin D3) 50 6,000 unit PO DAILY 04/07/22 07/14/22 06/26/22 History mcg (2,000 unit) capsule (Vitamin D3) clonidine HCl 0.3 mg tablet 0.3 mg PO Q8H PRN systolic bp >160 04/07/22 07/14/22 Unknown History cyclobenzaprine 5 mg tablet 5 mg PO Q8H PRN Muscle Spasm 04/07/22 07/14/22 06/26/22 History fluticasone propionate 115 2 puff inhalation BID 04/07/22 07/14/22 06/26/22 History mcg-salmeterol 21 mcg/actuation HFA inhaler (Advair HFA) furosemide 40 mg tablet (Lasix) 40 mg PO BID 04/07/22 07/14/22 06/26/22 History hydroxyzine HCl 25 mg tablet 25 mg PO Q8H PRN Itching 04/07/22 07/14/22 Unknown History hydroxyzine pamoate 25 mg capsule 25 mg PO BEDTIME 04/07/22 07/14/22 06/25/22 History insulin aspart U-100 100 unit/mL See Rx Instructions .Route .COMPLEX 04/07/22 07/14/22 06/26/22 History (3 mL) subcutaneous pen (Novolog FlexPen U-100 Insulin aspart) insulin glargine 100 unit/mL (3 40 unit SUBCUT DAILY@06 04/07/22 07/14/22 History mL) subcutaneous pen (Lantus Solostar U-100 Insulin) ipratropium 0.5 mg-albuterol 3 mg 3 ml inhalation Q6H PRN Cough 04/07/22 07/14/22 Unknown History (2.5 mg base)/3 mL nebulization soln loperamide 2 mg tablet (Imodium 2 mg PO Q6H PRN Loose Stool 04/07/22 07/14/22 06/26/22 History A-D) losartan 50 mg tablet 50 mg PO BEDTIME 04/07/22 07/14/22 06/25/22 History menthol 4 % topical gel (Biofreeze See Rx Instructions .Route .COMPLEX 04/07/22 07/14/22 Unknown History (menthol)) metolazone 5 mg tablet 5 mg PO QAM 04/07/22 07/14/22 06/26/22 History metoprolol tartrate 100 mg tablet 100 mg PO BID 04/07/22 07/14/22 06/26/22 History mirtazapine 30 mg tablet 30 mg PO BEDTIME@21 04/07/22 07/14/22 06/25/22 History ondansetron HCl 4 mg tablet 4 mg PO Q8H PRN Nausea And Vomiting 04/07/22 07/14/22 Unknown History promethazine-DM 6.25 mg-15 mg/5 mL 5 ml PO Q4H PRN Cough 04/07/22 07/14/22 Unknown History oral syrup ropinirole 0.5 mg tablet 0.5 mg PO QPM 04/07/22 07/14/22 06/25/22 History sertraline 50 mg tablet 50 mg PO DAILY 04/07/22 07/14/22 06/26/22 History simvastatin 40 mg tablet 40 mg PO BEDTIME@21 04/07/22 07/14/22 06/25/22 History solifenacin 5 mg tablet 5 mg PO QAM 04/07/22 07/14/22 06/26/22 History thyroid (pork) 90 mg tablet 90 mg PO DAILY 04/07/22 07/14/22 06/26/22 History ([place] Thyroid) vitamin B complex and vitamin C 1 cap PO QPM 04/07/22 07/14/22 06/25/22 History no.20-folic acid 1 mg capsule (Renal Caps) aspirin 81 mg tablet,delayed 81 mg PO DAILY #30 tabs 05/17/22 07/14/22 06/26/22 Rx release temazepam 7.5 mg capsule 7.5 mg PO BEDTIME 06/26/22 07/14/22 06/25/22 History acetaminophen 500 mg tablet 1,000 mg PO Q8H PRN Pain #30 tabs 07/02/22 07/14/22 06/26/22 Rx gabapentin 100 mg capsule 200 mg PO TID #30 caps 07/02/22 07/14/22 06/26/22 Rx fentanyl 37.5 mcg/hour transdermal 1 patch transdermal Q72H #5 ea 07/04/22 07/14/22 Unknown Rx patch bisacodyl 10 mg rectal suppository 10 mg GA DAILY PRN Constipation 07/14/22 07/14/22 Unknown History bisacodyl 5 mg tablet,delayed 10 mg PO DAILY PRN Constipation 07/14/22 07/14/22 Unknown History release (Dulcolax (bisacodyl)) clopidogrel 75 mg tablet (Plavix) 75 mg PO DAILY 30 days #30 tabs 07/14/22 Unknown Rx honey 100 % topical paste 1 applic topical DAILY 07/14/22 07/14/22 Unknown History (MediHoney (honey)) loratadine 10 mg tablet (Claritin) 10 mg PO DAILY 07/14/22 07/14/22 Unknown History oxycodone 5 mg tablet 10 mg PO Q4H PRN Pain 07/14/22 07/14/22 Unknown History pantoprazole 40 mg tablet,delayed 40 mg PO BID 30 days #60 tabs 07/14/22 Unknown Rx release (Protonix) sodium phosphates 19 gram-7 118 ml GA DAILY PRN Constipation 07/14/22 07/14/22 Unknown History gram/118 mL enema (Fleet Enema) sucralfate 1 gram tablet (Carafate) 1 g PO BID 4 weeks #56 tabs 07/14/22 Unknown Rx Allergies Allergy/AdvReac Type Severity Reaction Status Date / Time sulfamethoxazole Allergy Rash Verified 07/13/22 18:16 [From ] trimethoprim [From Septra] Allergy Rash Verified 07/13/22 18:16 morphine AdvReac Personality Verified 07/13/22 18:16 Change pregabalin [From Lyrica] AdvReac Loopy/Unste Verified 07/13/22 18:16 anoop Current Medications Generic Name Dose Route Start Last Admin Trade Name Freq PRN Reason Stop Dose Admin Carbidopa/Levodopa 2 each 07/13/22 21:00 07/14/22 15:02 Carbidopa-Levodopa 25-100mg Tablet PO 2 each TID BILLIE Administration Gabapentin 200 mg 07/13/22 21:00 07/14/22 15:02 Gabapentin 100 Mg Capsule PO 200 mg TID BILLIE Administration Insulin Glargine 40 unit 07/14/22 06:00 07/14/22 06:08 Insulin Glargine 100 Units/1 Ml SUBCUT 40 unit DAILY@06 BILLIE Administration Insulin Human Lispro 0 unit 07/14/22 08:00 07/14/22 13:28 Insulin Lispro 100 Unit/1 Ml SUBCUT Not Given TIDWM [facility] Protocol Losartan Potassium 50 mg 07/13/22 21:00 07/13/22 20:39 Losartan 50 Mg Tablet PO 50 mg BEDTIME BILLIE Administration Metoprolol Tartrate 100 mg 07/14/22 09:00 07/14/22 08:40 Metoprolol Tartrate 50 Mg Tablet PO 100 mg BID BILLIE Administration Oxycodone/Acetaminophen 1 tab 07/13/22 19:18 07/14/22 15:02 Oxycodone-Apap 5-325 Mg Tablet PO 1 tab Q6H PRN Administration MODERATE PAIN Pantoprazole Sodium 40 mg 07/14/22 09:00 07/14/22 08:41 Pantoprazole 40 Mg Sdv IVP 40 mg BID BILLIE Administration Sodium Chloride 50 ml 07/13/22 18:15 07/13/22 21:33 Sodium Chloride 0.9% 100 Ml Bag IV 07/14/22 18:15 50 ml PRN PRN Administration Blood transfusion prime and flush Sucralfate 1 gm 07/14/22 11:30 07/14/22 13:09 Sucralfate 1 Gm Tablet PO Not Given Q12H [facility] Thyroid 90 mg 07/14/22 09:00 07/14/22 08:39 Thyroid 60 Mg Tablet PO 90 mg DAILY BILLIE Administration Vitamin D 6,000 unit 07/14/22 09:00 07/14/22 08:37 Cholecalciferol (Vitamin D3) 1,000 Unit Tablet PO 6,000 unit DAILY BILLIE Administration PFSH Acute PFSH: Medical History Acute exacerbation of CHF (congestive heart failure) Anemia in chronic illness Bilateral lower extremity edema CAD (coronary artery disease) Charcot's joint of left foot Chest pain Chronic insomnia Chronic kidney disease Chronic renal insufficiency 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 COPD (chronic obstructive pulmonary disease) Diabetes mellitus type 2, insulin dependent Diabetic neuropathy Elevated troponin ESRD (end stage renal disease) ESRD (end stage renal disease) Fibromyalgia Goals of care, counseling/discussion History of CVA (cerebrovascular accident) History of pulmonary embolism Hyperlipemia Hypertension Hyponatremia Hypothyroidism Influenza A Iron deficiency anemia Lumbar disc disease with radiculopathy MRSA bacteremia Neuropathy Parkinson disease Pneumonia Post laminectomy syndrome Pulmonary hypertension Sciatica associated with disorder of lumbosacral spine Stage 4 chronic renal impairment associated with type 2 diabetes mellitus Uncontrolled insulin dependent diabetes mellitus Vitamin D deficiency Surgical History History of colonoscopy 2020 Hx of cholecystectomy Hx of foot surgery Hx of hysterectomy S/P dialysis catheter insertion Family History Father CAD (coronary artery disease) Mother CAD (coronary artery disease) Diabetes Grandfather CAD (coronary artery disease) Diabetes Social History Smoking and tobacco status: former smoker Second hand smoke exposure: No Alcohol intake: current Alcohol intake frequency: holidays/special occasions only Alcohol type: hard liquor Vitals/I&O/Wt Last Vital Signs Temp 97.7 F 07/14/22 13:13 Pulse 58 L 07/14/22 13:13 Resp 16 07/14/22 15:02 BP 114/39 07/14/22 13:13 Pulse Ox 97 07/14/22 10:02 O2 Del Method 07/14/22 10:02 O2 Flow Rate 2 07/14/22 10:02 07/14/22 07/14/22 07/14/22 06:59 14:59 22:59 Intake Total 500 / 1000 240 / 240 Output Total 1000 / 1000 Balance 500 / 1000 -760 / -760 Weight last 48 hrs Weight 255 lb 9.6 oz Weight 240 lb Physical Exam Narrative: WDWN female in NAD HENMT: COMMON NORMALS: normocephalic HEAD & SCALP: normocephalic Eye: COMMON NORMALS: Equal, round and reactive pupils present, EOMs intact bilaterally and no scleral icterus PUPIL: Yes Equal, round and reactive pupils present Neck/C-Spine: COMMON NORMALS: full ROM and supple Lymph: LYMPHATIC: no lymphadenopathy noted Resp: COMMON NORMALS: clear to auscultation bilaterally AUSCULTATION: clear to auscultation bilaterally Cardio: COMMON NORMALS: regular rhythm and No murmurs present (Cardio) RHYTHM: regular rhythm GI: COMMON NORMALS: Normal to inspection, nondistended, normoactive bowel sounds present, Soft to palpation, non-tender and no masses PALPATION: Yes Soft to palpation : COMMON NORMALS: Yes no CVA tenderness BLADDER/KIDNEY EXAM: Yes no CVA tenderness Back/Pelvis: COMMON NORMALS: no CVA tenderness Extremity: NARRATIVE EXTREMITY EXAM: Left lower extremity surgically absent below knee RIGHT LOWER EXTREMITY: Yes foot & digits (open wound right foot) Neuro: COMMON NORMALS: CN's II-XII intact bilaterally and no focal motor deficits Psych: COMMON NORMALS: mental status grossly normal and cooperative Data 07/14/22 05:46 07/14/22 05:46 A&P Assessment and plan (1) Hemoglobin low: Plan: EGD on 07/15/22 (2) History of epistaxis: (3) ESRD on hemodialysis: Coding Level of Care Code Acute Code for Chg Fwd Diagnoses Hemoglobin low D64.9 History of epistaxis Z87.898 ESRD on hemodialysis N18.6; Z99.2
--- NOTE | 2022-07-14 16:19 | P.PN_ITS ---
Subjective Subjective: Patient was seen this morning, she denies any bloody or black stools, does feel a bit lightheaded, no nausea, no vomiting Vitals/I&O/Wt Last Vital Signs Temp 98.7 F 07/14/22 15:58 Pulse 66 07/14/22 15:58 Resp 18 07/14/22 15:58 BP 118/57 07/14/22 15:58 Pulse Ox 97 07/14/22 15:58 O2 Del Method 07/14/22 15:58 O2 Flow Rate 2 07/14/22 15:58 07/14/22 07/14/22 07/14/22 06:59 14:59 22:59 Intake Total 500 / 1000 240 / 240 Balance 500 / 1000 240 / 240 Weight last 48 hrs Weight 115.938 kg Weight 108.862 kg Physical Exam Const: COMMON NORMALS: no acute distress and patient oriented x3 Resp: COMMON NORMALS: normal respiratory effort, No retractions, No use of accessory muscles and clear to auscultation bilaterally AUSCULTATION: clear to auscultation bilaterally Cardio: COMMON NORMALS: regular rate, regular rhythm, S1 normal heart sound present and S2 normal heart sound present RATE: regular rate RHYTHM: regular rhythm HEART SOUNDS: S1 normal heart sound present and S2 normal heart sound present GI: COMMON NORMALS: Normal to inspection, nondistended, normoactive bowel sounds present, non-tender and no masses Extremity: COMMON NORMALS: no pedal edema Neuro: COMMON NORMALS: patient oriented x3 Psych: COMMON NORMALS: mental status grossly normal Data 07/14/22 05:46 07/14/22 05:46 A&P Assessment and plan (1) Hemoglobin low: (2) History of epistaxis: (3) Chronic renal failure: Qualifiers: Chronic kidney disease stage: unspecified stage Qualified Code(s): N18.9 - Chronic kidney disease, unspecified (4) Status post below-knee amputation of left lower extremity: (5) Diabetic ulcer of left foot: Plan Epistaxis Possible GI bleed On aspirin, Plavix due to recent history of stenting in April 2022 History of acute on chronic anemia Rule out GI bleed we will request FOBT, EGD tomorrow morning, general surgery consulted My suspicion is related to anemia of chronic disease which got worse with recent epistaxis episode Status post 1 unit PRBC, hemoglobin 6.9 will receive another unit End-stage renal disease Sunday Next session currently DNR/DNI Renal diet, n.p.o. midnight Patient is from retirement Patient has fentanyl patch in place, placed 07/13/2022 She will most likely will be able to go back to retirement on Sunday Hold DVT prophylaxis with anticoagulating agent due to anemia Hold aspirin and Plavix for another day which could be resumed at the time of discharge if FOBT negative and EGD results Attestations Medical Necessity Statement*: Patient requires hospitalization for acute anemia Diagnoses Hemoglobin low D64.9 History of epistaxis Z87.898 Chronic renal failure N18.9 Chronic kidney disease stage: unspecified stage Status post below-knee amputation of left lower extremity Z89.512 Diabetic ulcer of left foot E11.621; L97.529
[2022-07-14 16:36] LABS: Glucose Point of Care 142 mg/dL (70-110)
[2022-07-14 17:05] LABS: Basophils # 0.1 10^3/uL (0.0-0.1); Basophils % 0.7 %; Eosinophils # 0.3 10^3/uL (0.0-0.8); Eosinophils % 2.6 %; Hematocrit 28.6 % (37.0-47.0); Hemoglobin 8.9 g/dL (11.5-15.3); Lymphocytes # 1.1 10^3/uL (0.8-4.8); Lymphocytes % 9.6 %; Mean Corpuscular HGB Conc 31.1 g/dL (30.0-36.0); Mean Corpuscular Hemoglobin 29.8 pg (28.0-34.0); Mean Corpuscular Volume 95.7 fl (81-99); Mean Platelet Volume 9.7 fL (7.4-10.4); Monocytes # 0.6 10^3/uL (0.2-0.9); Monocytes % 5.4 %; Neutrophils # 8.89 10^3/uL (1.8-7.7); Neutrophils % 80.3 %; Nucleated Red Blood Cells % 0 %; Platelet Count 287 10^3/cmm (130-400); Red Blood Count 2.99 10^6/uL (4.1-5.3); Red Cell Distribution Width 17.2 % (12.1-15.1); White Blood Count 11.1 10^3/uL (4.0-10.0)
--- NOTE | 2022-07-14 18:47 | PC.HD ---
Pt brought to dialysis room via bed. Pt c/o LLE pain, was medicated prior to transport to DR. Pt received 1 unit PRBCs while on treatment with no reaction noted. Pt had some transient asymptomatic hypotension, SBP 90s, no other issues. Dr Eric had originally ordered duration of 3:30 but changed to 4:00, pt rec'd the full 4 hours.
[2022-07-14] MEDS: losartan 50 mg Tablet PO (20:29)
[2022-07-14] MEDS: diphenhydrAMINE 25 mg Capsule PO (20:31)
[2022-07-14 21:01] LABS: Glucose Point of Care 109 mg/dL (70-110)
[2022-07-14] MEDS: sucralfate 1 gm Tablet PO (22:52)
[2022-07-14] MEDS: sodium chloride 0.9% 1,000 ML 30 ML IV (22:53)
[2022-07-15] VITALS (9 sets, daily range): BP systolic 111–142; BP diastolic 43–62; PULSE 68–75; RESP 16–20; TEMP 36.1–36.8; O2SAT 94–98
[2022-07-15] MEDS: oxyCODONE-APAP 5-325 mg Tablet 1 TAB PO ×2 (01:52→05:59)
[2022-07-15 05:25] LABS: Basophils # 0.1 10^3/uL (0.0-0.1); Basophils % 0.7 %; Eosinophils # 0.4 10^3/uL (0.0-0.8); Hematocrit 26.7 % (37.0-47.0); Hemoglobin 8.2 g/dL (11.5-15.3); Lymphocytes # 1.5 10^3/uL (0.8-4.8); Lymphocytes % 17.1 %; Mean Corpuscular HGB Conc 30.7 g/dL (30.0-36.0); Mean Corpuscular Hemoglobin 29.8 pg (28.0-34.0); Mean Corpuscular Volume 97.1 fl (81-99); Mean Platelet Volume 9.8 fL (7.4-10.4); Monocytes # 0.6 10^3/uL (0.2-0.9); Neutrophils # 6.09 10^3/uL (1.8-7.7); Neutrophils % 69.8 %; Nucleated Red Blood Cells % 0.3 %; Platelet Count 275 10^3/cmm (130-400); Red Blood Count 2.75 10^6/uL (4.1-5.3); Red Cell Distribution Width 17.4 % (12.1-15.1); White Blood Count 8.7 10^3/uL (4.0-10.0)
[2022-07-15 05:45] LABS: Anion Gap 14.1 (5-19); Blood Urea Nitrogen 18 mg/dL (8-23); Calcium 8.9 mg/dL (8.5-10.5); Carbon Dioxide 27 mmol/L (22-29); Chloride 97 mmol/L (98-107); Glucose 88 mg/dL (65-115); Magnesium 1.7 mg/dL (1.7-2.3); Osmolality Calculated 279 mOsm/kg (285-295); Phosphorus 3.9 mg/dL (2.5-4.5); Potassium 4.1 mmol/L (3.5-5.1); Sodium 134 mmol/L (136-145)
[2022-07-15] MEDS: insulin glargine 100 units/1 mL 40 UNIT SUBCUT (06:01)
[2022-07-15 06:43] LABS: Glucose Point of Care 98 mg/dL (70-110)
--- NOTE | 2022-07-15 07:46 | ANES.PREANE2 ---
Pre-Anesthetic Assessment Height/Weight: Height 1.7 m Weight 117.1 kg Temp Pulse Resp BP Pulse Ox O2 Del Method O2 Flow Rate 98.2 F 75 18 111/54 96 2 07/15/22 03:50 07/15/22 03:50 07/15/22 05:59 07/15/22 03:50 07/15/22 05:59 07/14/22 21:02 07/14/22 21:02 Preop Diagnosis: Anemia Operation Date: 07/15/22 08:00 Proposed Procedures p EGD(Not Applicable) - Magdiel Gay MD Pulmonary Chronic Obstructive Pulmonary Disease and Shortness of Breath Pulmonary HTN CV/HEM Anemia and Hypertension Normal left ventricular size, systolic function and wall ?thickness, with no regional wall motion abnormalities. Grade ?I/IV diastolic dysfunction (abnormal relaxation filling ?pattern), normal to mildly elevated filling pressures. Left ?ventricular ejection fraction is estimated at 60 %. ?Normal right ventricular size and systolic function. Moderate ?pulmonary hypertension, RVSP 53.8 mmHg. ?Mildly increased right atrial size. ?Moderately increased left atrial size. ?Structurally normal mitral valve. Moderate mitral valve ?regurgitation. ?From the previous echo done 08/03/2021, the pulmonary artery ?pressure is slightly higher, the mitral regurgitation is ?slightly worse and the tricuspid regurgitation is unchanged.? ?Left ventricular function is also unchanged. Chronic Renal Failure Metabolic Diabetes Mellitus, Morbid Obesity and Thyroid Disease [facility] [place] Osteoarthritis/DJD Medications/Allergies Home Medications Medication Instructions Recorded Confirmed Last Taken Type albuterol sulfate 90 mcg/actuation 2 puff inhalation Q6H PRN Wheezing 04/07/22 07/14/22 Unknown History aerosol inhaler (ProAir HFA) benzonatate 100 mg capsule 100 mg PO Q8H PRN Cough 04/07/22 07/14/22 Unknown History bimatoprost 0.01 % eye drops 1 drp ophthalmic (eye) BEDTIME 04/07/22 07/14/22 06/25/22 History ([place]) budesonide 0.5 mg/2 mL suspension 0.5 mg inhalation Q12H 04/07/22 07/14/22 06/25/22 History for nebulization calcium alginate 2 X 2 bandage 04/07/22 07/14/22 Unknown History carbidopa 25 mg-levodopa 100 mg 2 tab PO TID 04/07/22 07/14/22 06/26/22 History tablet cholecalciferol (vitamin D3) 50 6,000 unit PO DAILY 04/07/22 07/14/22 06/26/22 History mcg (2,000 unit) capsule (Vitamin D3) clonidine HCl 0.3 mg tablet 0.3 mg PO Q8H PRN systolic bp >160 04/07/22 07/14/22 Unknown History cyclobenzaprine 5 mg tablet 5 mg PO Q8H PRN Muscle Spasm 04/07/22 07/14/22 06/26/22 History fluticasone propionate 115 2 puff inhalation BID 04/07/22 07/14/22 06/26/22 History mcg-salmeterol 21 mcg/actuation HFA inhaler (Advair HFA) furosemide 40 mg tablet (Lasix) 40 mg PO BID 04/07/22 07/14/22 06/26/22 History hydroxyzine HCl 25 mg tablet 25 mg PO Q8H PRN Itching 04/07/22 07/14/22 Unknown History hydroxyzine pamoate 25 mg capsule 25 mg PO BEDTIME 04/07/22 07/14/22 06/25/22 History insulin aspart U-100 100 unit/mL See Rx Instructions .Route .COMPLEX 04/07/22 07/14/22 06/26/22 History (3 mL) subcutaneous pen (Novolog FlexPen U-100 Insulin aspart) insulin glargine 100 unit/mL (3 40 unit SUBCUT DAILY@06 04/07/22 07/14/22 06/26/22 History mL) subcutaneous pen (Lantus Solostar U-100 Insulin) ipratropium 0.5 mg-albuterol 3 mg 3 ml inhalation Q6H PRN Cough 04/07/22 07/14/22 Unknown History (2.5 mg base)/3 mL nebulization soln loperamide 2 mg tablet (Imodium 2 mg PO Q6H PRN Loose Stool 04/07/22 07/14/22 06/26/22 History A-D) losartan 50 mg tablet 50 mg PO BEDTIME 04/07/22 07/14/22 06/25/22 History menthol 4 % topical gel (Biofreeze See Rx Instructions .Route .COMPLEX 04/07/22 07/14/22 Unknown History (menthol)) metolazone 5 mg tablet 5 mg PO QAM 04/07/22 07/14/22 06/26/22 History metoprolol tartrate 100 mg tablet 100 mg PO BID 04/07/22 07/14/22 06/26/22 History mirtazapine 30 mg tablet 30 mg PO BEDTIME@21 04/07/22 07/14/22 06/25/22 History ondansetron HCl 4 mg tablet 4 mg PO Q8H PRN Nausea And Vomiting 04/07/22 07/14/22 Unknown History promethazine-DM 6.25 mg-15 mg/5 mL 5 ml PO Q4H PRN Cough 04/07/22 07/14/22 Unknown History oral syrup ropinirole 0.5 mg tablet 0.5 mg PO QPM 04/07/22 07/14/22 06/25/22 History sertraline 50 mg tablet 50 mg PO DAILY 04/07/22 07/14/22 06/26/22 History simvastatin 40 mg tablet 40 mg PO BEDTIME@21 04/07/22 07/14/22 06/25/22 History solifenacin 5 mg tablet 5 mg PO QAM 04/07/22 07/14/22 06/26/22 History thyroid (pork) 90 mg tablet 90 mg PO DAILY 04/07/22 07/14/22 06/26/22 History ([place] Thyroid) vitamin B complex and vitamin C 1 cap PO QPM 04/07/22 07/14/22 06/25/22 History no.20-folic acid 1 mg capsule (Renal Caps) aspirin 81 mg tablet,delayed 81 mg PO DAILY #30 tabs 05/17/22 07/14/22 06/26/22 Rx release temazepam 7.5 mg capsule 7.5 mg PO BEDTIME 06/26/22 07/14/22 06/25/22 History acetaminophen 500 mg tablet 1,000 mg PO Q8H PRN Pain #30 tabs 07/02/22 07/14/22 06/26/22 Rx gabapentin 100 mg capsule 200 mg PO TID #30 caps 07/02/22 07/14/22 06/26/22 Rx fentanyl 37.5 mcg/hour transdermal 1 patch transdermal Q72H #5 ea 07/04/22 07/14/22 Unknown Rx patch bisacodyl 10 mg rectal suppository 10 mg ND DAILY PRN Constipation 07/14/22 07/14/22 Unknown History bisacodyl 5 mg tablet,delayed 10 mg PO DAILY PRN Constipation 07/14/22 07/14/22 Unknown History release (Dulcolax (bisacodyl)) clopidogrel 75 mg tablet (Plavix) 75 mg PO DAILY 30 days #30 tabs 07/14/22 Unknown Rx honey 100 % topical paste 1 applic topical DAILY 07/14/22 07/14/22 Unknown History (MediHoney (honey)) loratadine 10 mg tablet (Claritin) 10 mg PO DAILY 07/14/22 07/14/22 Unknown History oxycodone 5 mg tablet 10 mg PO Q4H PRN Pain 07/14/22 07/14/22 Unknown History pantoprazole 40 mg tablet,delayed 40 mg PO BID 30 days #60 tabs 07/14/22 Unknown Rx release (Protonix) sodium phosphates 19 gram-7 118 ml ND DAILY PRN Constipation 07/14/22 07/14/22 Unknown History gram/118 mL enema (Fleet Enema) sucralfate 1 gram tablet (Carafate) 1 g PO BID 4 weeks #56 tabs 07/14/22 Unknown Rx Allergies Allergy/AdvReac Type Severity Reaction Status Date / Time sulfamethoxazole Allergy Rash Verified 07/13/22 18:16 [From ] trimethoprim [From Septra] Allergy Rash Verified 07/13/22 18:16 morphine AdvReac Personality Verified 07/13/22 18:16 Change pregabalin [From Lyrica] AdvReac Loopy/Unste Verified 07/13/22 18:16 anoop Current Medications Generic Name Dose Route Start Last Admin Trade Name Freq PRN Reason Stop Dose Admin Carbidopa/Levodopa 2 each 07/13/22 21:00 07/14/22 20:30 Carbidopa-Levodopa 25-100mg Tablet PO 2 each TID BILLIE Administration Diphenhydramine HCl 25 mg 07/13/22 18:38 07/14/22 20:31 Diphenhydramine 25 Mg Capsule PO 25 mg Q24H PRN Administration Itching Gabapentin 200 mg 07/13/22 21:00 07/14/22 20:29 Gabapentin 100 Mg Capsule PO 200 mg TID BILLIE Administration Sodium Chloride 1,000 mls @ 30 mls/hr 07/14/22 15:01 07/14/22 22:53 Sodium Chloride 0.9% IV 07/15/22 15:00 30 mls/hr .Q24H ONE Administration Insulin Glargine 40 unit 07/14/22 06:00 07/15/22 06:01 Insulin Glargine 100 Units/1 Ml SUBCUT 40 unit DAILY@06 BILLIE Administration Insulin Human Lispro 0 unit 07/14/22 08:00 07/14/22 17:47 Insulin Lispro 100 Unit/1 Ml SUBCUT Not Given TIDWM [facility] Protocol Losartan Potassium 50 mg 07/13/22 21:00 07/14/22 20:29 Losartan 50 Mg Tablet PO 50 mg BEDTIME BILLIE Administration Metoprolol Tartrate 100 mg 07/14/22 09:00 07/14/22 17:48 Metoprolol Tartrate 50 Mg Tablet PO Not Given BID [facility] Non-Formulary Medication 1 cap 07/14/22 18:00 07/14/22 17:47 B Complex With C 20-Folic Acid [Renal Caps] PO Not Given QPM [facility] Oxycodone/Acetaminophen 1 tab 07/15/22 01:46 07/15/22 05:59 Oxycodone-Apap 5-325 Mg Tablet PO 1 tab Q4H PRN Administration MODERATE PAIN Pantoprazole Sodium 40 mg 07/14/22 09:00 07/14/22 17:57 Pantoprazole 40 Mg Sdv IVP 40 mg BID BILLIE Administration Sucralfate 1 gm 07/14/22 11:30 07/14/22 22:52 Sucralfate 1 Gm Tablet PO 1 gm Q12H BILLIE Administration Thyroid 90 mg 07/14/22 09:00 07/14/22 08:39 Thyroid 60 Mg Tablet PO 90 mg DAILY BILLIE Administration Vitamin D 6,000 unit 07/14/22 09:00 07/14/22 08:37 Cholecalciferol (Vitamin D3) 1,000 Unit Tablet PO 6,000 unit DAILY BILLIE Administration PFSH Anesthesia Medical History Acute exacerbation of CHF (congestive heart failure) Anemia in chronic illness Bilateral lower extremity edema CAD (coronary artery disease) Charcot's joint of left foot Chest pain Chronic insomnia Chronic kidney disease Chronic renal insufficiency 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 COPD (chronic obstructive pulmonary disease) Diabetes mellitus type 2, insulin dependent Diabetic neuropathy Elevated troponin ESRD (end stage renal disease) ESRD (end stage renal disease) Fibromyalgia Goals of care, counseling/discussion History of CVA (cerebrovascular accident) History of pulmonary embolism Hyperlipemia Hypertension Hyponatremia Hypothyroidism Influenza A Iron deficiency anemia Lumbar disc disease with radiculopathy MRSA bacteremia Neuropathy Parkinson disease Pneumonia Post laminectomy syndrome Pulmonary hypertension Sciatica associated with disorder of lumbosacral spine Stage 4 chronic renal impairment associated with type 2 diabetes mellitus Uncontrolled insulin dependent diabetes mellitus Vitamin D deficiency Surgical History History of colonoscopy 2020 Hx of cholecystectomy Hx of foot surgery Hx of hysterectomy S/P dialysis catheter insertion Family History Father CAD (coronary artery disease) Mother CAD (coronary artery disease) Diabetes Grandfather CAD (coronary artery disease) Diabetes Social History Smoking and tobacco status: former smoker Second hand smoke exposure: No Alcohol intake: current Alcohol intake frequency: holidays/special occasions only Alcohol type: hard liquor Data Anesthesia 07/15/22 04:56 07/15/22 04:56 Short CBC 07/13/22 07/14/22 07/14/22 Range/Units 16:57 05:46 16:50 WBC 11.0 H 8.9 11.1 H (4.0-10.0) 10^3/uL Hgb 6.3 L* 6.9 L 8.9 L (11.5-15.3) g/dL Hct 20.9 L 22.4 L 28.6 L (37.0-47.0) % MCV 98.1 95.7 95.7 (81-99) fl Plt Count 325 274 287 (130-400) 10^3/cmm Neut % (Auto) 72.7 69.9 80.3 % Neut # (Auto) 8.02 H 6.22 8.89 H (1.8-7.7) 10^3/uL 07/15/22 Range/Units 04:56 WBC 8.7 (4.0-10.0) 10^3/uL Hgb 8.2 L (11.5-15.3) g/dL Hct 26.7 L (37.0-47.0) % MCV 97.1 (81-99) fl Plt Count 275 (130-400) 10^3/cmm Neut % (Auto) 69.8 % Neut # (Auto) 6.09 (1.8-7.7) 10^3/uL BMP 07/13/22 07/14/22 07/15/22 16:57 05:46 04:56 Sodium 136 140 134 L Potassium 4.8 4.9 4.1 Chloride 94 L 97 L 97 L Carbon Dioxide 29 24 27 BUN 42 H 48 H 18 Creatinine 3.8 H 4.7 H 2.8 H Glucose 128 H 99 88 Calcium 8.9 8.7 8.9 Liver Function 07/13/22 Range/Units 16:57 Total Bilirubin 0.3 (0.15-1.2) mg/dL AST 18 (0-32) U/L ALT < 5 (0-33) U/L Alkaline Phosphatase 108 H (35-105) U/L Albumin 3.3 L (3.5-5.2) g/dL Blood Bank 07/13/22 16:57 Blood Type O Positive Rho(D) Type Positive Antibody Screen Negative Coags 07/13/22 16:57 PT 15.20 H INR 1.16 Cardiac Studies: Echocardiogram 04/13/22 Echocardiogram Limited Views 05/14/22 Sestamibi Stress Test (Cardiology) 05/15/22
--- NOTE | 2022-07-15 07:53 | PM.PN ---
Subjective Subjective: seen after EGD, alert, no complaints, states she was told she has gastritis Vitals/I&O/Wt Last Vital Signs Temp 98.2 F 07/15/22 03:50 Pulse 75 07/15/22 03:50 Resp 18 07/15/22 05:59 BP 111/54 07/15/22 03:50 Pulse Ox 96 07/15/22 05:59 O2 Del Method 07/14/22 21:02 O2 Flow Rate 2 07/14/22 21:02 07/14/22 07/15/22 07/15/22 22:59 06:59 14:59 Intake Total 1640 / 2230 300 / 2530 Output Total 3040 / 3040 Balance -1400 / -810 300 / -510 Weight last 48 hrs Weight 117.1 kg Weight 115.938 kg Weight 108.862 kg Physical Exam Const: COMMON NORMALS: no acute distress and alert Neuro: SENSORIUM/ORIENTATION: Yes alert Data 07/15/22 04:56 07/15/22 04:56 A&P Assessment and plan (1) ESRD on hemodialysis: seen via telemedicine with assistance of RN at dialysis Plan 1. ESRD, HD MWF 2. Anemia, s/p transfusion 2u pRBC, EGD today. Received epogen at dialysis 3. Diabetes 4. Hypertension Recommend: Continue HD MWF. No IVs, blood draws, BPs LUE. She has appointment with vascular surgeon regarding AVF Tuesday 07/18. Stable for discharge from renal standpoint. Attestations Medical Necessity Statement*: per primary service Time Spent in Patient Care: less than 15 minutes Coding Level of Care Code Acute Code for Chg Fwd Diagnoses ESRD on hemodialysis N18.6; Z99.2
[2022-07-15] MEDS: sodium chloride 0.9% 1,000 ML 30 ML IV (08:06)
--- NOTE | 2022-07-15 08:10 | P.ANESASSM_ITS ---
Pre-Anesthetic Assessment Height/Weight: Height 1.7 m Weight 117.1 kg Temp Pulse Resp BP Pulse Ox O2 Del Method O2 Flow Rate 97 F L 70 18 142/53 97 2 07/15/22 07:54 07/15/22 07:54 07/15/22 07:54 07/15/22 07:54 07/15/22 07:54 07/15/22 07:54 07/14/22 21:02 Preop Diagnosis: Diabetic ulcer left foot Operation Date: 07/15/22 08:00 Proposed Procedures p EGD(Not Applicable) - Magdiel Gay MD Familial anesthetic complications: none Was Beta Akira taken within 24 hours: N/A Was Clonidine taken within 24 hours: Yes Social No alcohol and No tobacco Exam alert, oriented x 3, clear to auscultation bilaterally and regular rate & rhythm Airway Submandibular: within normal limits Cervical ROM: within normal limits Mallampati: Class II Dentition: false (upper) CV/HEM Anemia and Hypertension Chronic Renal Failure GI Gastroesophageal Reflux Disease Metabolic Diabetes Mellitus, Hyperlipidemia, Morbid Obesity and Thyroid Disease Neuropsych Neuropathy Anesthetic Plan ASA status: 3 Anesthesia: MAC Medications/Allergies Home Medications Medication Instructions Recorded Confirmed Last Taken Type albuterol sulfate 90 mcg/actuation 2 puff inhalation Q6H PRN Wheezing 04/07/22 07/14/22 Unknown History aerosol inhaler (ProAir HFA) benzonatate 100 mg capsule 100 mg PO Q8H PRN Cough 04/07/22 07/14/22 Unknown History bimatoprost 0.01 % eye drops 1 drp ophthalmic (eye) BEDTIME 04/07/22 07/14/22 06/25/22 History ([place]) budesonide 0.5 mg/2 mL suspension 0.5 mg inhalation Q12H 04/07/22 07/14/22 06/25/22 History for nebulization calcium alginate 2 X 2 bandage 04/07/22 07/14/22 Unknown History carbidopa 25 mg-levodopa 100 mg 2 tab PO TID 04/07/22 07/14/22 06/26/22 History tablet cholecalciferol (vitamin D3) 50 6,000 unit PO DAILY 04/07/22 07/14/22 06/26/22 History mcg (2,000 unit) capsule (Vitamin D3) clonidine HCl 0.3 mg tablet 0.3 mg PO Q8H PRN systolic bp >160 04/07/22 07/14/22 Unknown History cyclobenzaprine 5 mg tablet 5 mg PO Q8H PRN Muscle Spasm 04/07/22 07/14/22 06/26/22 History fluticasone propionate 115 2 puff inhalation BID 04/07/22 07/14/22 06/26/22 History mcg-salmeterol 21 mcg/actuation HFA inhaler (Advair HFA) furosemide 40 mg tablet (Lasix) 40 mg PO BID 04/07/22 07/14/22 06/26/22 History hydroxyzine HCl 25 mg tablet 25 mg PO Q8H PRN Itching 04/07/22 07/14/22 Unknown History hydroxyzine pamoate 25 mg capsule 25 mg PO BEDTIME 04/07/22 07/14/22 06/25/22 History insulin aspart U-100 100 unit/mL See Rx Instructions .Route .COMPLEX 04/07/22 07/14/22 06/26/22 History (3 mL) subcutaneous pen (Novolog FlexPen U-100 Insulin aspart) insulin glargine 100 unit/mL (3 40 unit SUBCUT DAILY@06 04/07/22 07/14/22 06/26/22 History mL) subcutaneous pen (Lantus Solostar U-100 Insulin) ipratropium 0.5 mg-albuterol 3 mg 3 ml inhalation Q6H PRN Cough 04/07/22 07/14/22 Unknown History (2.5 mg base)/3 mL nebulization soln loperamide 2 mg tablet (Imodium 2 mg PO Q6H PRN Loose Stool 04/07/22 07/14/22 06/26/22 History A-D) losartan 50 mg tablet 50 mg PO BEDTIME 04/07/22 07/14/22 06/25/22 History menthol 4 % topical gel (Biofreeze See Rx Instructions .Route .COMPLEX 04/07/22 07/14/22 Unknown History (menthol)) metolazone 5 mg tablet 5 mg PO QAM 04/07/22 07/14/22 06/26/22 History metoprolol tartrate 100 mg tablet 100 mg PO BID 04/07/22 07/14/22 06/26/22 History mirtazapine 30 mg tablet 30 mg PO BEDTIME@21 04/07/22 07/14/22 06/25/22 History ondansetron HCl 4 mg tablet 4 mg PO Q8H PRN Nausea And Vomiting 04/07/22 07/14/22 Unknown History promethazine-DM 6.25 mg-15 mg/5 mL 5 ml PO Q4H PRN Cough 04/07/22 07/14/22 Unknown History oral syrup ropinirole 0.5 mg tablet 0.5 mg PO QPM 04/07/22 07/14/22 06/25/22 History sertraline 50 mg tablet 50 mg PO DAILY 04/07/22 07/14/22 06/26/22 History simvastatin 40 mg tablet 40 mg PO BEDTIME@21 04/07/22 07/14/22 06/25/22 History solifenacin 5 mg tablet 5 mg PO QAM 04/07/22 07/14/22 06/26/22 History thyroid (pork) 90 mg tablet 90 mg PO DAILY 04/07/22 07/14/22 06/26/22 History ([place] Thyroid) vitamin B complex and vitamin C 1 cap PO QPM 04/07/22 07/14/22 06/25/22 History no.20-folic acid 1 mg capsule (Renal Caps) aspirin 81 mg tablet,delayed 81 mg PO DAILY #30 tabs 05/17/22 07/14/22 06/26/22 Rx release temazepam 7.5 mg capsule 7.5 mg PO BEDTIME 06/26/22 07/14/22 06/25/22 History acetaminophen 500 mg tablet 1,000 mg PO Q8H PRN Pain #30 tabs 07/02/22 07/14/22 06/26/22 Rx gabapentin 100 mg capsule 200 mg PO TID #30 caps 07/02/22 07/14/22 06/26/22 Rx fentanyl 37.5 mcg/hour transdermal 1 patch transdermal Q72H #5 ea 07/04/22 07/14/22 Unknown Rx patch bisacodyl 10 mg rectal suppository 10 mg ND DAILY PRN Constipation 07/14/22 07/14/22 Unknown History bisacodyl 5 mg tablet,delayed 10 mg PO DAILY PRN Constipation 07/14/22 07/14/22 Unknown History release (Dulcolax (bisacodyl)) clopidogrel 75 mg tablet (Plavix) 75 mg PO DAILY 30 days #30 tabs 07/14/22 Unknown Rx honey 100 % topical paste 1 applic topical DAILY 07/14/22 07/14/22 Unknown History (MediHoney (honey)) loratadine 10 mg tablet (Claritin) 10 mg PO DAILY 07/14/22 07/14/22 Unknown History oxycodone 5 mg tablet 10 mg PO Q4H PRN Pain 07/14/22 07/14/22 Unknown History pantoprazole 40 mg tablet,delayed 40 mg PO BID 30 days #60 tabs 07/14/22 Unknown Rx release (Protonix) sodium phosphates 19 gram-7 118 ml ND DAILY PRN Constipation 07/14/22 07/14/22 Unknown History gram/118 mL enema (Fleet Enema) sucralfate 1 gram tablet (Carafate) 1 g PO BID 4 weeks #56 tabs 07/14/22 Unknown Rx Allergies Allergy/AdvReac Type Severity Reaction Status Date / Time sulfamethoxazole Allergy Rash Verified 07/13/22 18:16 [From Decra] trimethoprim [From Septra] Allergy Rash Verified 07/13/22 18:16 morphine AdvReac Personality Verified 07/13/22 18:16 Change pregabalin [From Lyrica] AdvReac Loopy/Unste Verified 07/13/22 18:16 anoop Current Medications Generic Name Dose Route Start Last Admin Trade Name Freq PRN Reason Stop Dose Admin Carbidopa/Levodopa 2 each 07/13/22 21:00 07/14/22 20:30 Carbidopa-Levodopa 25-100mg Tablet PO 2 each TID BILLIE Administration Diphenhydramine HCl 25 mg 07/13/22 18:38 07/14/22 20:31 Diphenhydramine 25 Mg Capsule PO 25 mg Q24H PRN Administration Itching Gabapentin 200 mg 07/13/22 21:00 07/14/22 20:29 Gabapentin 100 Mg Capsule PO 200 mg TID BILLIE Administration Sodium Chloride 1,000 mls @ 30 mls/hr 07/14/22 15:01 07/14/22 22:53 Sodium Chloride 0.9% IV 07/15/22 15:00 30 mls/hr .Q24H ONE Administration Insulin Glargine 40 unit 07/14/22 06:00 07/15/22 06:01 Insulin Glargine 100 Units/1 Ml SUBCUT 40 unit DAILY@06 BILLIE Administration Insulin Human Lispro 0 unit 07/14/22 08:00 07/14/22 17:47 Insulin Lispro 100 Unit/1 Ml SUBCUT Not Given TIDWM [facility] Protocol Losartan Potassium 50 mg 07/13/22 21:00 07/14/22 20:29 Losartan 50 Mg Tablet PO 50 mg BEDTIME BILLIE Administration Metoprolol Tartrate 100 mg 07/14/22 09:00 07/14/22 17:48 Metoprolol Tartrate 50 Mg Tablet PO Not Given BID [facility] Non-Formulary Medication 1 cap 07/14/22 18:00 07/14/22 17:47 B Complex With C 20-Folic Acid [Renal Caps] PO Not Given QPM [facility] Oxycodone/Acetaminophen 1 tab 07/15/22 01:46 07/15/22 05:59 Oxycodone-Apap 5-325 Mg Tablet PO 1 tab Q4H PRN Administration MODERATE PAIN Pantoprazole Sodium 40 mg 07/14/22 09:00 07/14/22 17:57 Pantoprazole 40 Mg Sdv IVP 40 mg BID BILLIE Administration Sucralfate 1 gm 07/14/22 11:30 07/14/22 22:52 Sucralfate 1 Gm Tablet PO 1 gm Q12H BILLIE Administration Thyroid 90 mg 07/14/22 09:00 07/14/22 08:39 Thyroid 60 Mg Tablet PO 90 mg DAILY BILLIE Administration Vitamin D 6,000 unit 07/14/22 09:00 07/14/22 08:37 Cholecalciferol (Vitamin D3) 1,000 Unit Tablet PO 6,000 unit DAILY BILLIE Administration [facility] Anesthesia Medical History Acute exacerbation of CHF (congestive heart failure) Anemia in chronic illness Bilateral lower extremity edema CAD (coronary artery disease) Charcot's joint of left foot Chest pain Chronic insomnia Chronic kidney disease Chronic renal insufficiency 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 COPD (chronic obstructive pulmonary disease) Diabetes mellitus type 2, insulin dependent Diabetic neuropathy Elevated troponin ESRD (end stage renal disease) ESRD (end stage renal disease) Fibromyalgia Goals of care, counseling/discussion History of CVA (cerebrovascular accident) History of pulmonary embolism Hyperlipemia Hypertension Hyponatremia Hypothyroidism Influenza A Iron deficiency anemia Lumbar disc disease with radiculopathy MRSA bacteremia Neuropathy Parkinson disease Pneumonia Post laminectomy syndrome Pulmonary hypertension Sciatica associated with disorder of lumbosacral spine Stage 4 chronic renal impairment associated with type 2 diabetes mellitus Uncontrolled insulin dependent diabetes mellitus Vitamin D deficiency Surgical History History of colonoscopy 2020 Hx of cholecystectomy Hx of foot surgery Hx of hysterectomy S/P dialysis catheter insertion Family History Father CAD (coronary artery disease) Mother CAD (coronary artery disease) Diabetes Grandfather CAD (coronary artery disease) Diabetes Social History Smoking and tobacco status: former smoker Second hand smoke exposure: No Alcohol intake: current Alcohol intake frequency: holidays/special occasions o nly Alcohol type: hard liquor Data Anesthesia 07/15/22 04:56 07/15/22 04:56 Short CBC 07/13/22 07/14/22 07/14/22 Range/Units 16:57 05:46 16:50 WBC 11.0 H 8.9 11.1 H (4.0-10.0) 10^3/uL Hgb 6.3 L* 6.9 L 8.9 L (11.5-15.3) g/dL Hct 20.9 L 22.4 L 28.6 L (37.0-47.0) % MCV 98.1 95.7 95.7 (81-99) fl Plt Count 325 274 287 (130-400) 10^3/cmm Neut % (Auto) 72.7 69.9 80.3 % Neut # (Auto) 8.02 H 6.22 8.89 H (1.8-7.7) 10^3/uL 07/15/22 Range/Units 04:56 WBC 8.7 (4.0-10.0) 10^3/uL Hgb 8.2 L (11.5-15.3) g/dL Hct 26.7 L (37.0-47.0) % MCV 97.1 (81-99) fl Plt Count 275 (130-400) 10^3/cmm Neut % (Auto) 69.8 % Neut # (Auto) 6.09 (1.8-7.7) 10^3/uL BMP 07/13/22 07/14/22 07/15/22 16:57 05:46 04:56 Sodium 136 140 134 L Potassium 4.8 4.9 4.1 Chloride 94 L 97 L 97 L Carbon Dioxide 29 24 27 BUN 42 H 48 H 18 Creatinine 3.8 H 4.7 H 2.8 H Glucose 128 H 99 88 Calcium 8.9 8.7 8.9 Liver Function 07/13/22 Range/Units 16:57 Total Bilirubin 0.3 (0.15-1.2) mg/dL AST 18 (0-32) U/L ALT < 5 (0-33) U/L Alkaline Phosphatase 108 H (35-105) U/L Albumin 3.3 L (3.5-5.2) g/dL Blood Bank 07/13/22 16:57 Blood Type O Positive Rho(D) Type Positive Antibody Screen Negative Coags 07/13/22 16:57 PT 15.20 H INR 1.16 Cardiac Studies: Echocardiogram 04/13/22 Echocardiogram Limited Views 05/14/22 Sestamibi Stress Test (Cardiology) 05/15
--- NOTE | 2022-07-15 09:59 | P.DS_ITS ---
Discharge Providers Date of Admission: 07/14/22 16:18 Date of Discharge: July 15, 2022 Attending Provider at Admission: Gonzalo Loaiza MD Attending Provider at Discharge: Gage Gomez MD Primary Care Provider: Brandi Escalera MD Diagnoses at Discharge Discharge Diagnosis (1) ESRD on hemodialysis: Status: Acute Reason for Visit Reason for Visit: LOW HEMOGLOBIN Hospital Course Hospital Course Meghna Chaudhari is a 77 year old female end-stage renal disease Sunday dialysis dependent, was recently discharged after below-knee amputation 06/29 she has history of MRSA bacteremia, she finished course of cefepime vancomycin which was stopped after below-knee amputation presented with chief complaint of abnormal blood work.? Hemoglobin is below 7 that prompted her visit to the ER.? Patient has been noticing some epistaxis for last 24 hours patient is stating that it took 3 boxes of Kleenex to stop the bleeding, she has not noticed any chest pain shortness of breath, hematochezia, hemoptysis hematemesis. In the ER I was asked to admit the patient for blood transfusion, she is stable, next session is tomorrow she is from [facility] Patient was admitted to [facility] for acute anemia, likely multifactorial from chronic kidney disease, requiring 2 units PRBC, due to persistent anemia, and that she was on aspirin and Plavix, she underwent EGD, with findings of gastritis, hemoglobin remained stable, no blood or black stools, no hemodynamic compromise. Discharged with Protonix, Carafate with aspirin, Plavix, follow-up with cardiology as outpatient. Repeat hemoglobin on Sunday. Physical Exam Const: COMMON NORMALS: no acute distress and patient oriented x3 Resp: COMMON NORMALS: normal respiratory effort, No retractions, No use of accessory muscles and clear to auscultation bilaterally AUSCULTATION: clear to auscultation bilaterally Cardio: COMMON NORMALS: regular rate, regular rhythm, S1 normal heart sound present and S2 normal heart sound present RATE: regular rate RHYTHM: regular rhythm HEART SOUNDS: S1 normal heart sound present and S2 normal heart sound present GI: COMMON NORMALS: Normal to inspection, nondistended, normoactive bowel sounds present and non-tender Extremity: COMMON NORMALS: no pedal edema Neuro: COMMON NORMALS: patient oriented x3 Psych: COMMON NORMALS: mental status grossly normal Discharge Data Studies Completed and Pending Pending at discharge Category Date Time Status Basic Metabolic Panel AM LABS Lab 07/16/22 04:00 Ordered Basic Metabolic Panel AM LABS Lab 07/17/22 04:00 Ordered Complete Blood Count w/Auto AM LABS Lab 07/16/22 04:00 Ordered Complete Blood Count w/Auto AM LABS Lab 07/17/22 04:00 Ordered H. Pylori / MARCIN Test Routine Lab 07/15/22 08:21 Ordered Magnesium AM LABS Lab 07/16/22 04:00 Ordered Magnesium AM LABS Lab 07/17/22 04:00 Ordered Occult Blood Stool [Immunochemical Fecal OCB] Routine Lab 07/13/22 18:38 Ordered Phosphorus AM LABS Lab 07/16/22 04:00 Ordered Phosphorus AM LABS Lab 07/17/22 04:00 Ordered SARS Covid-2 Antigen Routine Lab 07/15/22 09:49 Uncollected Laboratory Results WBC 8.7 10^3/uL (4.0-10.0) 07/15/22 04:56 RBC 2.75 10^6/uL (4.1-5.3) L 07/15/22 04:56 Hgb 8.2 g/dL (11.5-15.3) L 07/15/22 04:56 Hct 26.7 % (37.0-47.0) L 07/15/22 04:56 MCV 97.1 fl (81-99) 07/15/22 04:56 MCH 29.8 pg (28.0-34.0) 07/15/22 04:56 MCHC 30.7 g/dL (30.0-36.0) 07/15/22 04:56 RDW 17.4 % (12.1-15.1) H 07/15/22 04:56 Plt Count 275 10^3/cmm (130-400) 07/15/22 04:56 MPV 9.8 fL (7.4-10.4) 07/15/22 04:56 Neut % (Auto) 69.8 % 07/15/22 04:56 Lymph % (Auto) 17.1 % 07/15/22 04:56 [place] % (Auto) 7.0 % 07/15/22 04:56 Eos % (Auto) 4.0 % 07/15/22 04:56 Baso % (Auto) 0.7 % 07/15/22 04:56 Neut # (Auto) 6.09 10^3/uL (1.8-7.7) 07/15/22 04:56 Lymph # (Auto) 1.5 10^3/uL (0.8-4.8) 07/15/22 04:56 [place] # (Auto) 0.6 10^3/uL (0.2-0.9) 07/15/22 04:56 Eos # (Auto) 0.4 10^3/uL (0.0-0.8) 07/15/22 04:56 Baso # (Auto) 0.1 10^3/uL (0.0-0.1) 07/15/22 04:56 Nucleated RBC % (auto) 0.3 % 07/15/22 04:56 Nucleated RBCs # 0.0 /100WBC 07/15/22 04:56 PT 15.20 SECONDS (12.1-14.9) H 07/13/22 16:57 INR 1.16 (0.8-1.2) 07/13/22 16:57 Sodium 134 mmol/L (136-145) L 07/15/22 04:56 Potassium 4.1 mmol/L (3.5-5.1) 07/15/22 04:56 Chloride 97 mmol/L (98-107) L 07/15/22 04:56 Carbon Dioxide 27 mmol/L (22-29) 07/15/22 04:56 Anion Gap 14.1 (5-19) 07/15/22 04:56 BUN 18 mg/dL (8-23) 07/15/22 04:56 Creatinine 2.8 mg/dL (0.5-0.9) H 07/15/22 04:56 GFR Calculation Not Reportable 07/15/22 04:56 Glucose 88 mg/dL (65-115) 07/15/22 04:56 POC Glucose 98 mg/dL (70-110) 07/15/22 06:22 Calculated Osmolality 279 mOsm/kg (285-295) L 07/15/22 04:56 Calcium 8.9 mg/dL (8.5-10.5) 07/15/22 04:56 Phosphorus 3.9 mg/dL (2.5-4.5) 07/15/22 04:56 Magnesium 1.7 mg/dL (1.7-2.3) 07/15/22 04:56 Iron 89 ug/dL (37-145) 07/13/22 16:57 TIBC 210 mcg/dl 07/13/22 16:57 % Saturation 42.3 % (20-50) 07/13/22 16:57 Unsat Iron Binding 121 ug/dL (112-347) 07/13/22 16:57 Total Bilirubin 0.3 mg/dL (0.15-1.2) 07/13/22 16:57 AST 18 U/L (0-32) 07/13/22 16:57 ALT < 5 U/L (0-33) 07/13/22 16:57 Alkaline Phosphatase 108 U/L (35-105) H 07/13/22 16:57 Total Protein 7.0 g/dL (6.6-8.7) 07/13/22 16:57 Albumin 3.3 g/dL (3.5-5.2) L 07/13/22 16:57 Globulin 3.7 g/dL (1.3-4.6) 07/13/22 16:57 Vitamin B12 694 pg/mL (232-1245) 07/13/22 16:57 Hep Bs Antigen Non-reactive (Nonreactive) 07/14/22 05:46 Hepatitis C Antibody Non-reactive (Nonreactive) 07/14/22 05:46 Blood Type O Positive 07/13/22 16:57 Rho(D) Type Positive 07/13/22 16:57 Antibody Screen Negative 07/13/22 16:57 Crossmatch See Detail 07/13/22 16:57 Vitals Last Vital Signs Temp 97 F L 07/15/22 08:21 Pulse 68 07/15/22 09:00 Resp 16 07/15/22 09:00 BP 137/51 07/15/22 08:53 Pulse Ox 95 07/15/22 09:00 O2 Del Method 07/15/22 09:00 O2 Flow Rate 2 07/15/22 09:00 Discharge Plan Discharge Patient Disposition: Xfer SNF Condition: Stable Prescriptions: New Plavix 75 mg tablet 75 mg PO DAILY 30 Days Qty: 30 0RF Protonix 40 mg tablet,delayed release (DR/EC) 40 mg PO BID 30 Days Qty: 60 0RF Carafate 1 gram tablet 1 g PO BID 28 Days Qty: 56 0RF Continued temazepam 7.5 mg capsule 7.5 mg PO BEDTIME acetaminophen 500 mg Tablet 1,000 mg PO Q8H PRN (Reason: Pain) Qty: 30 0RF gabapentin 100 mg Capsule 200 mg PO TID Qty: 30 0RF fentanyl 37.5 mcg/hour patch 72 hour 1 patch transdermal Q72H Qty: 5 0RF bisacodyl 10 mg Suppository 10 mg [place] DAILY PRN (Reason: Constipation) Fleet Enema 19-7 gram/118 mL Enema 118 ml LA DAILY PRN (Reason: Constipation) Dulcolax (bisacodyl) 5 mg Tablet,Delayed Release (Dr/Ec) 10 mg PO DAILY PRN (Reason: Constipation) Claritin 10 mg Tablet 10 mg PO DAILY oxycodone 5 mg Tablet 10 mg PO Q4H PRN (Reason: Pain) MediHoney (honey) 100 % Paste 1 applic TOPICAL DAILY losartan 50 mg Tablet 50 mg PO BEDTIME furosemide [Lasix] 40 mg Tablet 40 mg PO BID promethazine-DM 6.25-15 mg/5 mL Syrup 5 ml PO Q4H PRN (Reason: Cough) ipratropium-albuterol 0.5 mg-3 mg(2.5 mg base)/3 mL Solution For Nebulization 3 ml INHALATION Q6H PRN (Reason: Cough) metoprolol tartrate 100 mg Tablet 100 mg PO BID ondansetron HCl 4 mg Tablet 4 mg PO Q8H PRN (Reason: Nausea And Vomiting) clonidine HCl 0.3 mg Tablet 0.3 mg PO Q8H PRN (Reason: systolic bp >160) loperamide [Imodium A-D] 2 mg Tablet 2 mg PO Q6H PRN (Reason: Loose Stool) metolazone 5 mg Tablet 5 mg PO QAM simvastatin 40 mg Tablet 40 mg PO BEDTIME@21 benzonatate 100 mg Capsule 100 mg PO Q8H PRN (Reason: Cough) mirtazapine 30 mg Tablet 30 mg PO BEDTIME@21 ropinirole 0.5 mg Tablet 0.5 mg PO QPM budesonide 0.5 mg/2 mL Suspension For Nebulization 0.5 mg inhalation Q12H Rx Instructions: for 5 days (start date 04/06/22) hydroxyzine HCl 25 mg Tablet 25 mg PO Q8H PRN (Reason: Itching) Renal Caps 1 mg Capsule 1 cap PO QPM albuterol sulfate [ProAir HFA] 90 mcg/actuation Hfa Aerosol Inhaler 2 puff INHALATION Q6H PRN (Reason: Wheezing) carbidopa-levodopa 25-100 mg Tablet 2 tab PO TID sertraline 50 mg Tablet 50 mg PO DAILY hydroxyzine pamoate 25 mg Capsule 25 mg PO BEDTIME insulin aspart U-100 [Novolog FlexPen U-100 Insulin] 100 unit/mL (3 mL) Insulin Pen See Rx Instructions .ROUTE .COMPLEX Rx Instructions: sliding scale three times a day 150-200=3 units 201-250=5 units 251-300=7 units 301-350=9 units 351-400=11 units call provider for bs <60 or >400 cyclobenzaprine 5 mg Tablet 5 mg PO Q8H PRN (Reason: Muscle Spasm) solifenacin 5 mg Tablet 5 mg PO QAM Advair HFA 115-21 mcg/actuation Hfa Aerosol Inhaler 2 puff INHALATION BID insulin glargine [Lantus Solostar U-100 Insulin] 100 unit/mL (3 mL) Insulin Pen 40 unit SUBCUT DAILY@06 cholecalciferol (vitamin D3) [Vitamin D3] 50 mcg (2,000 unit) Capsule 6,000 unit PO DAILY thyroid (pork) [[place] Thyroid] 90 mg Tablet 90 mg PO DAILY [place] 0.01 % Drops 1 drp OPHTHALMIC (EYE) BEDTIME (DME) calcium alginate 2 X 2 Bandage TOPICAL Rx Instructions: apply to left lower leg topically one time a day for diabetic ulcer Biofreeze (menthol) 4 % Gel See Rx Instructions .ROUTE .COMPLEX Rx Instructions: apply to bilat feet topically every 4 hours as needed for pain to feet aspirin 81 mg tablet,delayed release (DR/EC) 81 mg PO DAILY Qty: 30 3RF Discontinued doxycycline hyclate 100 mg capsule 100 mg PO BID 5 Days Qty: 10 0RF oxycodone-acetaminophen 5-325 mg Tablet 1 tab PO Q4H PRN (Reason: Pain) Discharge Orders: Discharge Order (Routine); Ordered 07/15/22 Ordered By: Gage Gomez Referrals: Brandi Escalera MD [Primary Care Provider] - Gabino eFng M.D [Physician] - 1 week Discharge Diet: Cardiac Discharge Activity: Resume usual activity Patient Instructions: Sucralfate (By mouth), Clopidogrel (By mouth), Pantoprazole (By mouth), GI Discharge Instructions, Opioid Safety, Pain Management Activity Restrictions/Additional Instructions: - Please have your primary care provider recheck your hemoglobin on Sunday -Continue aspirin, Plavix, statin, please follow-up with cardiology Discharge Attestations Time Spent in Discharge Care*: greater than 30 min Status at Discharge: Cognitive status at discharge: cognitively intact , Behavioral status at discharge: cooperative , Quality Metrics Clinical Quality Measures [ No reported AMI, CVA or VTE this stay] Coding Level of Care Code 69474 Total time (in minutes) for Discharge: 40 Diagnoses ESRD on hemodialysis N18.6; Z99.2
[2022-07-15 10:49] LABS: SARS Covid-2 Antigen negative (Negative)
--- NOTE | 2022-07-15 10:51 | ANE.PACU2 ---
Inpatient post-anesthesia follow up: Airway intact: Yes Vital signs: Temperature 97 F Pulse Rate 68 Respiratory Rate 16 Blood Pressure 137/51 Pulse Oximetry 95 Oxygen Delivery Me thod Nasal Cannula Oxygen Flow Rate 2 Fraction of Inspir ed Oxygen Hydration adequate: Yes Nausea and vomiting: No Pain level: 2 Mental status: Baseline
[2022-07-17 07:24] LABS: H. Pylori / CLO Test Negative
== END 2022-07-15 11:55 | disposition home or self-care (01) | DRG 699 ==
LOC: ER 17:32 → MEDSURG 19:48
PROVIDERS: Internal Medicine; Surgery; Admitting Provider Internal Medicine; Emergency Provider Emergency Medicine; PCP Family Medicine; Visit Provider Family Medicine
PROC: 0DJ08ZZ Inspection of Upper Intestinal Tract, Via Natural or Artificial Opening Endoscopic (ICD-10-PCS; CPT 43235; principal; 2022-07-15 08:00)
DX: E11.22 Type 2 diabetes mellitus with diabetic chronic kidney disease (principal); I12.0 Hypertensive chronic kidney disease with stage 5 chronic kidney disease or end stage renal disease; Z68.41 Body mass index [BMI] 40.0-44.9, adult; N18.6 End stage renal disease; D63.1 Anemia in chronic kidney disease; R04.0 Epistaxis; E11.621 Type 2 diabetes mellitus with foot ulcer; L97.529 Non-pressure chronic ulcer of other part of left foot with unspecified severity; K21.9 Gastro-esophageal reflux disease without esophagitis; E78.5 Hyperlipidemia, unspecified; E66.01 Morbid (severe) obesity due to excess calories; E03.9 Hypothyroidism, unspecified; E11.40 Type 2 diabetes mellitus with diabetic neuropathy, unspecified; K29.70 Gastritis, unspecified, without bleeding; Z99.2 Dependence on renal dialysis; Z79.4 Long term (current) use of insulin; Z79.02 Long term (current) use of antithrombotics/antiplatelets; Z79.82 Long term (current) use of aspirin; Z79.891 Long term (current) use of opiate analgesic; Z66 Do not resuscitate; Z89.512 Acquired absence of left leg below knee; Z87.891 Personal history of nicotine dependence; Z86.14 Personal history of Methicillin resistant Staphylococcus aureus infection
CPT/HCPCS: 36415; 36416; 36430; 80048; 80053; 82607; 82962; 83540; 83550; 83735; 84100; 85025; 85610; 86803; 86850; 86900; 86920; 87077; 87340; 87426; 90935; 96372; 99285; C9113; G0378; J1200; J1644; J1815; J2704; J7030; P9016; Q3014; Q4081

== ENCOUNTER 2022-07-15 14:53 | Emergency (ER) | payer MEDICARE, OTHER, SELFPAY ==
[2022-07-15 14:56] VITALS: BP 118/74; PULSE 70; O2SAT 100; BMI 37.7
--- NOTE | 2022-07-15 15:05 | ED_ITS ---
HPI - General Adult General: Chief complaint: General Medical Stated complaint: DISCOLORED STUMP Time Seen by Provider: 07/15/22 14:57 Source: patient and family Mode of arrival: ambulatory Limitations: no limitations History of Present Illness: This 77-year-old female who had a left below-knee amputation on June 29 was brought in by ambulance for evaluation of the stump. Patient was admitted to this facility from a snf 2 days ago for anemia and was discharged back to the snf today. On reaching the snf, they inspected the wound and discovered that there were black areas at the surgical site. long term staff added that this was the same dressing she had when she was at the snf. This prompted them to send patient back to the ER for evaluation. Patient has no fever, nausea, or vomiting. Review of Systems General: Reports: 10 or more systems reviewed and unremarkable except in HPI and below Musc: Reports: other (Discoloration at the surgery site, pain at the left lower extremity stump.) PFSH ED PFSH: Medical History Acute exacerbation of CHF (congestive heart failure) Anemia in chronic illness Bilateral lower extremity edema CAD (coronary artery disease) Charcot's joint of left foot Chest pain Chronic insomnia Chronic kidney disease Chronic renal insufficiency 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 COPD (chronic obstructive pulmonary disease) Diabetes mellitus type 2, insulin dependent Diabetic neuropathy Elevated troponin ESRD (end stage renal disease) ESRD (end stage renal disease) Fibromyalgia Goals of care, counseling/discussion History of CVA (cerebrovascular accident) History of pulmonary embolism Hyperlipemia Hypertension Hyponatremia Hypothyroidism Influenza A Iron deficiency anemia Lumbar disc disease with radiculopathy MRSA bacteremia Neuropathy Parkinson disease Pneumonia Post laminectomy syndrome Pulmonary hypertension Sciatica associated with disorder of lumbosacral spine Stage 4 chronic renal impairment associated with type 2 diabetes mellitus Uncontrolled insulin dependent diabetes mellitus Vitamin D deficiency Surgical History History of colonoscopy 2020 Hx of cholecystectomy Hx of foot surgery Hx of hysterectomy S/P dialysis catheter insertion Family History Father CAD (coronary artery disease) Mother CAD (coronary artery disease) Diabetes Grandfather CAD (coronary artery disease) Diabetes Social History Smoking and tobacco status: former smoker Second hand smoke exposure: No Alcohol intake: current Alcohol intake frequency: holidays/special occasions only Alcohol type: hard liquor Physical Exam Const: COMMON NORMALS: no acute distress, patient oriented x3, no limitations and alert HENMT: COMMON NORMALS: normocephalic HEAD & SCALP: normocephalic Neck/C-Spine: COMMON NORMALS: full ROM and supple Chest: COMMONS NORMALS: normal inspection of the chest Resp: COMMON NORMALS: normal respiratory effort, No retractions, No use of accessory muscles and clear to auscultation bilaterally AUSCULTATION: clear to auscultation bilaterally Cardio: COMMON NORMALS: regular rate, regular rhythm and No murmurs present (Cardio) RATE: regular rate RHYTHM: regular rhythm GI: COMMON NORMALS: Normal to inspection, nondistended, normoactive bowel sounds present and non-tender : COMMON NORMALS: Yes no CVA tenderness BLADDER/KIDNEY EXAM: Yes no CVA tenderness Back/Pelvis: COMMON NORMALS: no CVA tenderness and no thoracic nor lumbar tenderness Extremity: GENERAL: Yes normal exam except as noted OTHER: Left below-knee amputation. Melva and sutures still present at the surgical site. Lateral half of the surgical site has dry gangrene. Tender swelling all around the surgical stump. Mildly fluctuant. Neuro: COMMON NORMALS: patient oriented x3 and no focal motor deficits SENSORIUM/ORIENTATION: Yes alert Course Consultations: Consultation #1: Case discussed with Dr. Krzysztof Camejo, orthopedic surgeon on-call. He recommends that patient be discharged back to the snf for her to follow-up with Dr. Schuster in the office. Vital Signs: Vital signs: Vital Signs Pulse Rate 74 07/15/22 17:08 Respiratory Rate 16 07/15/22 17:31 Blood Pressure 131/50 07/15/22 17:08 Pulse Oximetry 97 07/15/22 17:08 Oxygen Delivery Me thod 07/15/22 17:08 [facility] - General Adult Medical Decision Making Medical decision making: History as above. Patient has no fever, nausea, vomiting or signs of systemic toxicity. I discussed case with Dr. Christopher, orthopedic surgeon on-call. He noted that there is no indication to admit patient. He wants patient discharged back to the snf and for her to follow-up with Dr. Schuster in the office. This was communicated to patient and family who verbalized understanding and agree with the plan. Lab Data 07/15/22 16:24 07/15/22 16:24 Radiology Impressions Tibia/Fibula X-Ray 07/15/22 15:19 IMPRESSION: No visible acute abnormality. Laboratory Results WBC 9.2 10^3/uL (4.0-10.0) 07/15/22 16:24 RBC 2.83 10^6/uL (4.1-5.3) L 07/15/22 16:24 Hgb 8.5 g/dL (11.5-15.3) L 07/15/22 16: Hct 27.9 % (37.0-47.0) L 07/15/22 16: MCV 98.6 fl (81-99) 07/15/22 16: MCH 30.0 pg (28.0-34.0) 07/15/22 16: MCHC 30.5 g/dL (30.0-36.0) 07/15/22 16: RDW 16.9 % (12.1-15.1) H 07/15/22 16:24 Plt Count 283 10^3/cmm (130-400) 07/15/22 16: MPV 10.0 fL (7.4-10.4) 07/15/22 16: Neut % (Auto) 75.9 % 07/15/22 16: Lymph % (Auto) 12.3 % 07/15/22 16: [place] % (Auto) 6.1 % 07/15/22 16:24 Eos % (Auto) 3.4 % 07/15/22 16:24 Baso % (Auto) 0.8 % 07/15/22 16:24 Neut # (Auto) 7.02 10^3/uL (1.8-7.7) 07/15/22 16: Lymph # (Auto) 1.1 10^3/uL (0.8-4.8) 07/15/22 16:24 [place] # (Auto) 0.6 10^3/uL (0.2-0.9) 07/15/22 16:24 Eos # (Auto) 0.3 10^3/uL (0.0-0.8) 07/15/22 16:24 Baso # (Auto) 0.1 10^3/uL (0.0-0.1) 07/15/22 16:24 Nucleated RBC % (auto) 0.5 % 07/15/22 16:24 Nucleated RBCs # 0.1 /100WBC 07/15/22 16:24 Sodium 134 mmol/L (136-145) L 07/15/22 16:24 Potassium 4.1 mmol/L (3.5-5.1) 07/15/22 16:24 Chloride 94 mmol/L (98-107) L 07/15/22 16:24 Carbon Dioxide 25 mmol/L (22-29) 07/15/22 16:24 Anion Gap 19.1 (5-19) H 07/15/22 16:24 BUN 26 mg/dL (8-23) H 07/15/22 16:24 Creatinine 3.4 mg/dL (0.5-0.9) H 07/15/22 16:24 GFR Calculation Not Reportable 07/15/22 16:24 Glucose 152 mg/dL (65-115) H 07/15/22 16:24 Calculated Osmolality 286 mOsm/kg (285-295) 07/15/22 16:24 Calcium 9.1 mg/dL (8.5-10.5) 07/15/22 16:24 Total Bilirubin 0.4 mg/dL (0.15-1.2) 07/15/22 16:24 AST 9 U/L (0-32) 07/15/22 16:24 ALT < 5 U/L (0-33) 07/15/22 16:24 Alkaline Phosphatase 103 U/L (35-105) 07/15/22 16:24 Total Protein 7.0 g/dL (6.6-8.7) 07/15/22 16:24 Albumin 3.1 g/dL (3.5-5.2) L 07/15/22 16:24 Globulin 3.9 g/dL (1.3-4.6) 07/15/22 16:24 Discharge Plan Discharge Patient Disposition: Home Clinical Impression: ESRD on hemodialysis, Postoperative external wound disruption Condition: Stable Prescriptions: New cephalexin 500 mg capsule See Rx Instructions .ROUTE .COMPLEX Qty: 5 0RF Rx Instructions: 500 mg orally after dialysis, on dialysis days. No Action temazepam 7.5 mg capsule 7.5 mg PO BEDTIME acetaminophen 500 mg Tablet 1,000 mg PO Q8H PRN (Reason: Pain) Qty: 30 0RF gabapentin 100 mg Capsule 200 mg PO TID Qty: 30 0RF fentanyl 37.5 mcg/hour patch 72 hour 1 patch transdermal Q72H Qty: 5 0RF bisacodyl 10 mg Suppository 10 mg [place] DAILY PRN (Reason: Constipation) Fleet Enema 19-7 gram/118 mL Enema 118 ml [place] DAILY PRN (Reason: Constipation) Dulcolax (bisacodyl) 5 mg Tablet,Delayed Release (Dr/Ec) 10 mg PO DAILY PRN (Reason: Constipation) Claritin 10 mg Tablet 10 mg PO DAILY oxycodone 5 mg Tablet 10 mg PO Q4H PRN (Reason: Pain) MediHoney (honey) 100 % Paste 1 applic TOPICAL DAILY Plavix 75 mg tablet 75 mg PO DAILY 30 Days Qty: 30 0RF Protonix 40 mg tablet,delayed release (DR/EC) 40 mg PO BID 30 Days Qty: 60 0RF Carafate 1 gram tablet 1 g PO BID 28 Days Qty: 56 0RF losartan 50 mg Tablet 50 mg PO BEDTIME furosemide [Lasix] 40 mg Tablet 40 mg PO BID promethazine-DM 6.25-15 mg/5 mL Syrup 5 ml PO Q4H PRN (Reason: Cough) ipratropium-albuterol 0.5 mg-3 mg(2.5 mg base)/3 mL Solution For Nebulization 3 ml INHALATION Q6H PRN (Reason: Cough) metoprolol tartrate 100 mg Tablet 100 mg PO BID ondansetron HCl 4 mg Tablet 4 mg PO Q8H PRN (Reason: Nausea And Vomiting) clonidine HCl 0.3 mg Tablet 0.3 mg PO Q8H PRN (Reason: systolic bp >160) loperamide [Imodium A-D] 2 mg Tablet 2 mg PO Q6H PRN (Reason: Loose Stool) metolazone 5 mg Tablet 5 mg PO QAM simvastatin 40 mg Tablet 40 mg PO BEDTIME@21 benzonatate 100 mg Capsule 100 mg PO Q8H PRN (Reason: Cough) mirtazapine 30 mg Tablet 30 mg PO BEDTIME@21 ropinirole 0.5 mg Tablet 0.5 mg PO QPM budesonide 0.5 mg/2 mL Suspension For Nebulization 0.5 mg inhalation Q12H Rx Instructions: for 5 days (start date 04/06/22) hydroxyzine HCl 25 mg Tablet 25 mg PO Q8H PRN (Reason: Itching) Renal Caps 1 mg Capsule 1 cap PO QPM albuterol sulfate [ProAir HFA] 90 mcg/actuation Hfa Aerosol Inhaler 2 puff INHALATION Q6H PRN (Reason: Wheezing) carbidopa-levodopa 25-100 mg Tablet 2 tab PO TID sertraline 50 mg Tablet 50 mg PO DAILY hydroxyzine pamoate 25 mg Capsule 25 mg PO BEDTIME insulin aspart U-100 [Novolog FlexPen U-100 Insulin] 100 unit/mL (3 mL) Insulin Pen See Rx Instructions .ROUTE .COMPLEX Rx Instructions: sliding scale three times a day 150-200=3 units 201-250=5 units 251-300=7 units 301-350=9 units 351-400=11 units call provider for bs <60 or >400 cyclobenzaprine 5 mg Tablet 5 mg PO Q8H PRN (Reason: Muscle Spasm) solifenacin 5 mg Tablet 5 mg PO QAM Advair HFA 115-21 mcg/actuation Hfa Aerosol Inhaler 2 puff INHALATION BID insulin glargine [Lantus Solostar U-100 Insulin] 100 unit/mL (3 mL) Insulin Pen 40 unit SUBCUT DAILY@06 cholecalciferol (vitamin D3) [Vitamin D3] 50 mcg (2,000 unit) Capsule 6,000 unit PO DAILY thyroid (pork) [[place] Thyroid] 90 mg Tablet 90 mg PO DAILY [place] 0.01 % Drops 1 drp OPHTHALMIC (EYE) BEDTIME (DME) calcium alginate 2 X 2 Bandage TOPICAL Rx Instructions: apply to left lower leg topically one time a day for diabetic ulcer Biofreeze (menthol) 4 % Gel See Rx Instructions .ROUTE .COMPLEX Rx Instructions: apply to bilat feet topically every 4 hours as needed for pain to feet aspirin 81 mg tablet,delayed release (DR/EC) 81 mg PO DAILY Qty: 30 3RF Discharge Orders: Discharge ED (Routine); Ordered 07/15/22 Ordered By: Bud Joyner Referrals: Brandi Escalera MD [Primary Care Provider] - Discharge Diet: Usual diet Discharge Activity: Resume usual activity Patient Instructions: Opioid Safety, Pain Management Activity Restrictions/Additional Instructions: Take Keflex on dialysis days, after dialysis. Call Dr. Schuster's office on Sunday to schedule a follow-up appointment. Return if you develop fever (with temperature over 100.4 or more) or any new or worsening symptoms. Coding Level of Care Code ED [employer] Operations Supervisor for Dominick Baca
--- NOTE | 2022-07-15 15:19 | XRR_ITS ---
PROCEDURE INFORMATION: Exam: XR Left Tibia and Fibula Exam date and time: 07/15/2022 3:22 PM Age: 77 years old Clinical indication: Other: Discoloration; Prior surgery; Surgery date: <1 month; Surgery type: Amputation; Additional info: Swelling, pain and discoloration at stump. TECHNIQUE: Imaging protocol: Radiologic exam of the left tibia and fibula. Views: 2 views. COMPARISON: CR XR foot LT 2V [id number] 06/29/2022 5:13 PM FINDINGS: Bones/joints: Amputation changes of tibia and fibula diaphysis without abnormality. Soft tissues: Negative for soft tissue gas. Skin donaldo across the amputation stump. XR/XR tibia fibula LT 2V [id number] IMPRESSION: No visible acute abnormality.
[2022-07-15 15:54] VITALS: BP 141/48; PULSE 72; RESP 16; O2SAT 92
[2022-07-15 16:34] LABS: Basophils # 0.1 10^3/uL (0.0-0.1); Basophils % 0.8 %; Eosinophils # 0.3 10^3/uL (0.0-0.8); Eosinophils % 3.4 %; Hematocrit 27.9 % (37.0-47.0); Hemoglobin 8.5 g/dL (11.5-15.3); Lymphocytes # 1.1 10^3/uL (0.8-4.8); Lymphocytes % 12.3 %; Mean Corpuscular HGB Conc 30.5 g/dL (30.0-36.0); Mean Corpuscular Volume 98.6 fl (81-99); Monocytes # 0.6 10^3/uL (0.2-0.9); Monocytes % 6.1 %; Neutrophils # 7.02 10^3/uL (1.8-7.7); Neutrophils % 75.9 %; Nucleated Red Blood Cells # 0.1 /100WBC; Nucleated Red Blood Cells % 0.5 %; Platelet Count 283 10^3/cmm (130-400); Red Blood Count 2.83 10^6/uL (4.1-5.3); Red Cell Distribution Width 16.9 % (12.1-15.1); White Blood Count 9.2 10^3/uL (4.0-10.0)
[2022-07-15 16:56] LABS: Alanine Aminotransferase < 5 U/L (0-33); Albumin Level 3.1 g/dL (3.5-5.2); Alkaline Phosphatase 103 U/L (35-105); Anion Gap 19.1 (5-19); Aspartate Amino Transferase 9 U/L (0-32); Blood Urea Nitrogen 26 mg/dL (8-23); Calcium 9.1 mg/dL (8.5-10.5); Carbon Dioxide 25 mmol/L (22-29); Chloride 94 mmol/L (98-107); Globulin 3.9 g/dL (1.3-4.6); Glucose 152 mg/dL (65-115); Osmolality Calculated 286 mOsm/kg (285-295); Potassium 4.1 mmol/L (3.5-5.1); Sodium 134 mmol/L (136-145); Total Bilirubin 0.4 mg/dL (0.15-1.2)
[2022-07-15 17:08] VITALS: BP 131/50; PULSE 74; O2SAT 97
[2022-07-15 17:31] VITALS: RESP 16
[2022-07-15] MEDS: oxyCODONE 5 mg IR Tab/Cap 10 MG PO (17:31)
[2022-07-15] MEDS: cephALEXin 500 mg Capsule PO (18:04)
[2022-07-15 18:26] VITALS: BP 139/39; PULSE 68; O2SAT 94
== END 2022-07-15 18:24 | disposition home or self-care (01) ==
PROVIDERS: Emergency Provider Family Medicine; PCP Family Medicine
DX: T81.31XA Disruption of external operation (surgical) wound, not elsewhere classified, initial encounter (principal); I13.0 Hypertensive heart and chronic kidney disease with heart failure and stage 1 through stage 4 chronic kidney disease, or unspecified chronic kidney disease; N18.6 End stage renal disease; E11.22 Type 2 diabetes mellitus with diabetic chronic kidney disease; J44.9 Chronic obstructive pulmonary disease, unspecified; E11.40 Type 2 diabetes mellitus with diabetic neuropathy, unspecified; E78.5 Hyperlipidemia, unspecified; E03.9 Hypothyroidism, unspecified; I25.10 Atherosclerotic heart disease of native coronary artery without angina pectoris; G20 Parkinson's disease; Z86.73 Personal history of transient ischemic attack (TIA), and cerebral infarction without residual deficits; Z87.891 Personal history of nicotine dependence; Z79.4 Long term (current) use of insulin; Z79.82 Long term (current) use of aspirin; Z99.2 Dependence on renal dialysis; Z89.512 Acquired absence of left leg below knee; Y83.8 Other surgical procedures as the cause of abnormal reaction of the patient, or of later complication, without mention of misadventure at the time of the procedure
CPT/HCPCS: 36415; 73590; 80053; 85025; 99283

== ENCOUNTER → 2022-07-18 07:52 | Outpatient (BNVA) | payer MEDICARE, OTHER, SELFPAY | PROVIDERS: PCP Family Medicine; Visit Provider Nurse Practitioner Family | DX: Z89.512 Acquired absence of left leg below knee (principal) | CPT/HCPCS: 99024; 99213 ==

== ENCOUNTER → 2022-08-01 09:07 | Outpatient (BNVA) | payer MEDICARE, OTHER, SELFPAY | PROVIDERS: PCP Family Medicine; Visit Provider Nurse Practitioner Family | DX: Z09 Encounter for follow-up examination after completed treatment for conditions other than malignant neoplasm (principal) | CPT/HCPCS: 99212; A6219 ==

== ENCOUNTER → 2022-08-02 08:27 | Outpatient (BNVA) | payer MEDICARE, OTHER, SELFPAY | PROVIDERS: PCP Family Medicine; Visit Provider Nurse Practitioner Family | DX: Z89.512 Acquired absence of left leg below knee (principal) | CPT/HCPCS: 99024; 99214 ==

== ENCOUNTER 2022-08-10 06:37 | Day surgery (SDC) | payer MEDICARE, OTHER, SELFPAY ==
[2022-08-09 12:40] VITALS: BMI 38.3
[2022-08-10] VITALS (18 sets, daily range): BP systolic 115–143; BP diastolic 49–82; PULSE 69–75; RESP 16–20; TEMP 36.4–36.8; O2SAT 91–100
[2022-08-10] MEDS: sodium chloride 0.9% 1,000 ML 30 ML IV (07:37)
[2022-08-10 07:52] LABS: Basophils # 0.1 10^3/uL (0.0-0.1); Basophils % 0.9 %; Eosinophils # 0.3 10^3/uL (0.0-0.8); Eosinophils % 4.3 %; Hematocrit 27.2 % (37.0-47.0); Hemoglobin 8.3 g/dL (11.5-15.3); Lymphocytes # 0.9 10^3/uL (0.8-4.8); Lymphocytes % 10.9 %; Mean Corpuscular HGB Conc 30.5 g/dL (30.0-36.0); Mean Corpuscular Hemoglobin 30.3 pg (28.0-34.0); Mean Corpuscular Volume 99.3 fl (81-99); Mean Platelet Volume 9.9 fL (7.4-10.4); Monocytes # 0.9 10^3/uL (0.2-0.9); Monocytes % 11.6 %; Neutrophils # 5.59 10^3/uL (1.8-7.7); Neutrophils % 71.4 %; Nucleated Red Blood Cells % 0 %; Platelet Count 222 10^3/cmm (130-400); Red Blood Count 2.74 10^6/uL (4.1-5.3); Red Cell Distribution Width 17.7 % (12.1-15.1); White Blood Count 7.8 10^3/uL (4.0-10.0)
--- NOTE | 2022-08-10 08:06 | W.PM.OPSUD ---
Surgery/Procedure H&P Update DATE OF PROCEDURE: August 10, 2022 DATE H&P PERFORMED: 08/02/22 PREOP DIAGNOSIS: Gangrene left below-knee amputation PLANNED PROCEDURE: Operation Date: 08/10/22 08:20 Proposed Procedures p I & D left BKA/ 49286,Z89.512(Left) - Joselo Schuster MD
[2022-08-10] MEDS: HYDROmorphone 1 mg/mL INJ 1 mL 0.5 MG IVP ×2 (08:09→09:43)
[2022-08-10 08:15] LABS: Anion Gap 20.9 (5-19); Blood Urea Nitrogen 39 mg/dL (8-23); Carbon Dioxide 27 mmol/L (22-29); Chloride 93 mmol/L (98-107); Glucose 179 mg/dL (65-115); Osmolality Calculated 296 mOsm/kg (285-295); Potassium 4.9 mmol/L (3.5-5.1); Sodium 136 mmol/L (136-145)
--- NOTE | 2022-08-10 08:36 | ANES.PREANE2 ---
Pre-Anesthetic Assessment Height/Weight: Height 1.7 m Weight 111.13 kg Temp Pulse Resp BP Pulse Ox O2 Del Method 97.5 F L 70 18 136/69 94 Room Air 08/10/22 07:11 08/10/22 07:11 08/10/22 07:11 08/10/22 07:11 08/10/22 07:11 08/10/22 07:11 Preop Diagnosis: Gangrene left below-knee amputation Operation Date: 08/10/22 08:20 Proposed Procedures p I & D left BKA/ 08040,Z89.512(Left) - Joselo Schuster MD Familial anesthetic complications: none Was Beta Akira taken within 24 hours: Yes Was Clonidine taken within 24 hours: Yes Last intake: Intake Last Liquid Date 08/09/22 Last Liquid Time 23:30 Last Solid Date 08/09/22 Last Solid Time 17:30 Social No alcohol and No tobacco Exam alert, oriented x 3, clear to auscultation bilaterally and regular rate & rhythm Airway Submandibular: within normal limits Cervical ROM: within normal limits Mallampati: Class II Dentition: false (upper) Pulmonary Chronic Obstructive Pulmonary Disease CV/HEM Anemia, Hypertension and Peripheral Vascular Disease Chronic Renal Insufficiency GI Gastroesophageal Reflux Disease Metabolic Diabetes Mellitus, Hyperlipidemia, Morbid Obesity and Thyroid Disease Neuropsych Neuropathy Anesthetic Plan ASA status: 3 Anesthesia: General Medications/Allergies Home Medications Medication Instructions Recorded Confirmed Last Taken Type albuterol sulfate 90 mcg/actuation 2 puff inhalation Q6H PRN Wheezing 04/07/22 08/10/22 Unknown History aerosol inhaler (ProAir HFA) benzonatate 100 mg capsule 100 mg PO Q8H PRN Cough 04/07/22 08/10/22 Unknown History bimatoprost 0.01 % eye drops 1 drp ophthalmic (eye) BEDTIME 04/07/22 08/09/22 08/09/22 History ([place]) budesonide 0.5 mg/2 mL suspension 0.5 mg inhalation Q12H 04/07/22 08/09/22 06/25/22 History for nebulization calcium alginate 2 X 2 bandage 04/07/22 08/02/22 Unknown History carbidopa 25 mg-levodopa 100 mg 2 tab PO TID 04/07/22 08/09/22 08/10/22 History tablet cholecalciferol (vitamin D3) 50 6,000 unit PO DAILY 04/07/22 08/09/22 08/09/22 History mcg (2,000 unit) capsule (Vitamin D3) clonidine HCl 0.3 mg tablet 0.3 mg PO Q8H PRN systolic bp >160 04/07/22 08/09/22 Unknown History cyclobenzaprine 5 mg tablet 5 mg PO Q8H PRN Muscle Spasm 04/07/22 08/10/22 06/26/22 History fluticasone propionate 115 2 puff inhalation BID 04/07/22 08/09/22 08/09/22 History mcg-salmeterol 21 mcg/actuation HFA inhaler (Advair HFA) furosemide 40 mg tablet (Lasix) 40 mg PO BID 04/07/22 08/09/22 08/09/22 History hydroxyzine HCl 25 mg tablet 25 mg PO Q8H PRN Itching 04/07/22 08/10/22 Unknown History hydroxyzine pamoate 25 mg capsule 25 mg PO BEDTIME 04/07/22 08/09/22 08/09/22 History insulin aspart U-100 100 unit/mL See Rx Instructions .Route .COMPLEX 04/07/22 08/10/22 08/09/22 20:00 History (3 mL) subcutaneous pen (Novolog FlexPen U-100 Insulin aspart) insulin glargine 100 unit/mL (3 40 unit SUBCUT DAILY@06 04/07/22 08/10/22 08/09/22 20:00 History mL) subcutaneous pen (Lantus Solostar U-100 Insulin) ipratropium 0.5 mg-albuterol 3 mg 3 ml inhalation Q6H PRN Cough 04/07/22 08/09/22 Unknown History (2.5 mg base)/3 mL nebulization soln loperamide 2 mg tablet (Imodium 2 mg PO Q6H PRN Loose Stool 04/07/22 08/09/22 06/26/22 History A-D) menthol 4 % topical gel (Biofreeze See Rx Instructions .Route .COMPLEX 04/07/22 08/10/22 Unknown History (menthol)) metolazone 5 mg tablet 5 mg PO QAM 04/07/22 08/09/22 08/09/22 History metoprolol tartrate 100 mg tablet 100 mg PO BID 04/07/22 08/10/22 08/10/22 06:30 History mirtazapine 30 mg tablet 30 mg PO BEDTIME@04/07/22 08/09/22 08/09/22 History ondansetron HCl 4 mg tablet 4 mg PO Q8H PRN Nausea And Vomiting 04/07/22 08/09/22 Unknown History promethazine-DM 6.25 mg-15 mg/5 mL 5 ml PO Q4H PRN Cough 04/07/22 08/09/22 Unknown History oral syrup ropinirole 0.5 mg tablet 0.5 mg PO QPM 04/07/22 08/09/22 08/09/22 History sertraline 50 mg tablet 50 mg PO DAILY 04/07/22 08/09/22 08/09/22 History simvastatin 40 mg tablet 40 mg PO BEDTIME@21 04/07/22 08/09/22 08/09/22 History solifenacin 5 mg tablet 5 mg PO QAM 04/07/22 08/09/22 08/09/22 History thyroid (pork) 90 mg tablet 90 mg PO DAILY 04/07/22 08/09/22 08/10/22 History ([place] Thyroid) vitamin B complex and vitamin C 1 cap PO QPM 04/07/22 08/09/22 08/09/22 History no.20-folic acid 1 mg capsule (Renal Caps) aspirin 81 mg tablet,delayed 81 mg PO DAILY #30 tabs 05/17/22 08/09/22 08/09/22 Rx release temazepam 7.5 mg capsule 7.5 mg PO BEDTIME 06/26/22 08/10/22 08/08/22 History acetaminophen 500 mg tablet 1,000 mg PO Q8H PRN Pain #30 tabs 07/02/22 08/10/22 08/10/22 Rx gabapentin 100 mg capsule 200 mg PO TID #30 caps 07/02/22 08/09/22 08/09/22 Rx fentanyl 37.5 mcg/hour transdermal 1 patch transdermal Q72H #5 ea 07/04/22 08/10/22 08/07/22 Rx patch bisacodyl 10 mg rectal suppository 10 mg [place] DAILY PRN Constipation 07/14/22 08/09/22 Unknown History bisacodyl 5 mg tablet,delayed 10 mg PO DAILY PRN Constipation 07/14/22 08/09/22 08/07/22 History release (Dulcolax (bisacodyl)) honey 100 % topical paste 1 applic topical DAILY 07/14/22 08/09/22 08/09/22 History (MediHoney (honey)) loratadine 10 mg tablet (Claritin) 10 mg PO DAILY 07/14/22 08/09/22 08/09/22 History oxycodone 5 mg tablet 10 mg PO Q4H PRN Pain 07/14/22 08/10/22 08/09/22 19:00 History pantoprazole 40 mg tablet,delayed 40 mg PO BID 30 days #60 tabs 07/14/22 08/09/22 08/09/22 Rx release (Protonix) sodium phosphates 19 gram-7 118 ml [place] DAILY PRN Constipation 07/14/22 08/10/22 Unknown History gram/118 mL enema (Fleet Enema) sucralfate 1 gram tablet (Carafate) 1 g PO BID 4 weeks #56 tabs 07/14/22 08/09/22 08/09/22 Rx cephalexin 500 mg capsule See Rx Instructions .Route 07/15/22 08/09/22 08/09/22 Rx .COMPLEX #5 caps Allergies Allergy/AdvReac Type Severity Reaction Status Date / Time sulfamethoxazole Allergy Rash Verified 08/09/22 12:29 [From Septra] trimethoprim [From Septra] Allergy Rash Verified 08/09/22 12:29 pregabalin [From Lyrica] AdvReac Loopy/Unste Verified 08/09/22 12:29 anoop Current Medications Generic Name Dose Route Start Last Admin Trade Name Freq PRN Reason Stop Dose Admin Sodium Chloride 1,000 mls @ 30 mls/hr 08/10/22 07:00 08/10/22 07:37 Sodium Chloride 0.9% IV 08/11/22 06:59 30 mls/hr .Q24H BILLIE Administration PFSH Anesthesia Medical History Acute exacerbation of CHF (congestive heart failure) Anemia in chronic illness Bilateral lower extremity edema CAD (coronary artery disease) Charcot's joint of left foot Chest pain Chronic insomnia Chronic kidney disease Chronic renal insufficiency 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 COPD (chronic obstructive pulmonary disease) Diabetes mellitus type 2, insulin dependent Diabetic neuropathy Elevated troponin ESRD (end stage renal disease) ESRD (end stage renal disease) Fibromyalgia Goals of care, counseling/discussion History of CVA (cerebrovascular accident) History of pulmonary embolism Hyperlipemia Hypertension Hyponatremia Hypothyroidism Influenza A Iron deficiency anemia Lumbar disc disease with radiculopathy MRSA bacteremia Neuropathy Parkinson disease Pneumonia Post laminectomy syndrome Pulmonary hypertension Sciatica associated with disorder of lumbosacral spine Stage 4 chronic renal impairment associated with type 2 diabetes mellitus Uncontrolled insulin dependent diabetes mellitus Vitamin D deficiency Surgical History History of colonoscopy 2020 Hx of cholecystectomy Hx of foot surgery Hx of hysterectomy S/P dialysis catheter insertion Family History Father CAD (coronary artery disease) Mother CAD (coronary artery disease) Diabetes Grandfather CAD (coronary artery disease) Diabetes Social History Smoking and tobacco status: former smoker Second hand smoke exposure: No Alcohol intake: current Alcohol intake frequency: holidays/special occasions only Alcohol type: hard liquor Data Anesthesia 08/10/22 07:40 08/10/22 07:40 Short CBC 08/10/22 Range/Units 07:40 WBC 7.8 (4.0-10.0) 10^3/uL Hgb 8.3 L (11.5-15.3) g/dL Hct 27.2 L (37.0-47.0) % MCV 99.3 H (81-99) fl Plt Count 222 (130-400) 10^3/cmm Neut % (Auto) 71.4 % Neut # (Auto) 5.59 (1.8-7.7) 10^3/uL BMP 08/10/22 07:40 Sodium 136 Potassium 4.9 Chloride 93 L Carbon Dioxide 27 BUN 39 H Creatinine 3.9 H Glucose 179 H Calcium 9.0 Cardiac Studies: Echocardiogram 04/13/22 Echocardiogram Limited Views 05/14/22 Sestamibi Stress Test (Cardiology) 05/15/22
--- NOTE | 2022-08-10 09:09 | PM.OP ---
Operative Report Date of procedure: August 10, 2022 Pre-op diagnosis: Preop Diagnosis Gangrene left below-knee amputation Post-op diagnosis: same Procedure done: Revision left below-knee amputation Surgeon: Joselo Schuster Anesthesia: General Estimated blood loss (mL): 20 Complications: None Findings: Meghna had area of all full-thickness skin and subcutaneous necrosis beginning over the anterior distal BKA flap extending medially over a distance of approximately 8 cm of approximately 2 cm width. The anterior flap maintain excellent vascularity as did the posterior flap skin. The deeper flap of the posterior flap was last vascular. No purulence was noted Brief History: The patient is a 77-year-old female who underwent a left below-knee amputation on 06/29/2022 with necrosis of the distal edge of the posterior flap. She is taken to the operating room for day for aggressive debridement and revision of the distal BKA to facilitate healing and allow ultimate prosthesis placement. Procedure: Meghna was taken to the operating room and given a general anesthesia. A timeout was performed. Chen scissors were used to sharply debride necrotic skin and subcutaneous tissue from the anterior medial leg. The leg was then prepped and draped in the usual fashion with iodine. Skin skin edges about the anterior and posterior flap were debrided back to vascular tissue. Vascularity appeared quite reasonable over the distal edge of the anterior and posterior flaps. On the good to the posterior flap appeared stable. The vascularity of the flap of the posterior flap was suspect. Treatment was accomplished down deep to the posterior muscle to allow mobilization of the posterior tissues anteriorly with minimal tension. The posterior skin was reapproximated anteriorly with 1 Prolene. Xeroform gauze, 4 x 4's, ABD pads, Kerlix, and a compressive stockinette were applied. The patient was taken to cover room in stable condition.
[2022-08-10] MEDS: fentaNYL 50 mcg/mL INJ 2mL IVP ×2 (09:21→09:31)
[2022-08-10] MEDS: oxyCODONE 5 mg IR Tab/Cap 10 MG PO (10:13)
[2022-08-10] MEDS: albuterol 2.5 mg/3 mL Neb INHALATION (10:40)
[2022-08-10 10:49] LABS: Glucose Point of Care 159 mg/dL (70-110)
--- NOTE | 2022-08-10 15:21 | ANE.PACU2 ---
Inpatient post-anesthesia follow up: Airway intact: Yes Vital signs: Temperature 97.7 F Pulse Rate 72 Respiratory Rate 18 Blood Pressure 121/57 Pulse Oximetry 92 Oxygen Delivery Me thod Room Air Oxygen Flow Rate 6 Fraction of Inspir ed Oxygen Hydration adequate: Yes Nausea and vomiting: No Pain level: 4 Mental status: Baseline
== END 2022-08-10 11:03 | disposition home or self-care (01) ==
PROVIDERS: Anesthesiology; PCP Family Medicine; Visit Provider Orthopaedic Surgery
PROC: (CPT 11043; principal; 2022-08-10 08:00)
DX: T87.54 Necrosis of amputation stump, left lower extremity (principal); Y83.5 Amputation of limb(s) as the cause of abnormal reaction of the patient, or of later complication, without mention of misadventure at the time of the procedure; E11.52 Type 2 diabetes mellitus with diabetic peripheral angiopathy with gangrene; I13.2 Hypertensive heart and chronic kidney disease with heart failure and with stage 5 chronic kidney disease, or end stage renal disease; E11.22 Type 2 diabetes mellitus with diabetic chronic kidney disease; N18.6 End stage renal disease; I50.9 Heart failure, unspecified; Z99.2 Dependence on renal dialysis; Z79.4 Long term (current) use of insulin; Z79.84 Long term (current) use of oral hypoglycemic drugs; D63.1 Anemia in chronic kidney disease; I25.10 Atherosclerotic heart disease of native coronary artery without angina pectoris; J44.9 Chronic obstructive pulmonary disease, unspecified; E11.40 Type 2 diabetes mellitus with diabetic neuropathy, unspecified; E78.5 Hyperlipidemia, unspecified; E03.9 Hypothyroidism, unspecified; E55.9 Vitamin D deficiency, unspecified; Z89.512 Acquired absence of left leg below knee; Z87.891 Personal history of nicotine dependence; Z79.82 Long term (current) use of aspirin; Z79.02 Long term (current) use of antithrombotics/antiplatelets; Z79.891 Long term (current) use of opiate analgesic
CPT/HCPCS: 11043; 36416; 80048; 82962; 85025; 94640; J1100; J1170; J2704; J3010; J7030; J7613

== ENCOUNTER → 2022-08-23 09:14 | Outpatient (BNVA) | payer MEDICARE, OTHER, SELFPAY | PROVIDERS: PCP Family Medicine; Visit Provider Nurse Practitioner Family | DX: Z47.89 Encounter for other orthopedic aftercare (principal); Z89.512 Acquired absence of left leg below knee | CPT/HCPCS: 99024; 99213 ==

== ENCOUNTER 2022-08-25 23:04 | Emergency (ER) | payer MEDICARE, OTHER, SELFPAY ==
--- NOTE | 2022-08-25 23:08 | ECG_ITS ---
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 Measurements Intervals [place] Rate: 87 P: 68 SC: 188 QRS: -12 QRSD: 93 T: 32 QT: 380 QTc: 459 Interpretive Statements SINUS RHYTHM POSSIBLE RIGHT VENTRICULAR CONDUCTION DELAY [RSR (QR) IN V1/V2] VOLTAGE CRITERIA FOR LVH [MEETS CRITERIA IN ONE OF: R(aVL), S(V1), R(V5), R(V5/V6)+S(V1)] Compared to ECG 06/26/2022 13:12:25 Left ventricular hypertrophy now present ST (T wave) deviation no longer present Electronically Signed On 08-26-2022 16:37:18 CDT by Adalgisa Orozco M.D. [email or web address]
--- NOTE | 2022-08-25 23:08 | XRR_ITS ---
PROCEDURE INFORMATION: Exam: XR Chest Exam date and time: 08/25/2022 11:11 PM Age: 77 years old Clinical indication: Chest pressure; Prior surgery; Surgery type: Dialysis cath. Stimulator; Patient HX: C/O chest pain; Additional info: Cp TECHNIQUE: Imaging protocol: Radiologic exam of the chest. Views: 1 view. COMPARISON: CT chest con [id number] 05/13/2022 6:35 PM FINDINGS: Tubes, catheters and devices: Right-sided Port-A-Cath. Thoracic spinal stimulator. Lungs: See Heart/Mediastinum finding. Pleural spaces: Unremarkable. No pleural effusion. No pneumothorax. Heart/Mediastinum: Cardiomegaly and pulmonary vascular congestion. Bones/joints: Unremarkable. XR/XR chest 1V portable [id number] IMPRESSION: 1. Cardiomegaly and pulmonary vascular congestion. 2. Right-sided Port-A-Cath. 3. Thoracic spinal stimulator.
[2022-08-25 23:11] VITALS: BP 162/82; PULSE 91; RESP 18; TEMP 36.8; O2SAT 98; BMI 34.4
[2022-08-25 23:13] VITALS: BP 155/75; PULSE 87; RESP 14; O2SAT 94
--- NOTE | 2022-08-25 23:16 | W.ED.CHESTPA ---
HPI - Chest Pain General: Chief Complaint: Chest Pain Stated Complaint: CP Time Seen by Provider: 08/25/22 23:05 Source: patient and EMS Mode of arrival: EMS Limitations: no limitations History of Present Illness: 77-year-old female states she started having an episode of chest pain roughly 45 minutes ago she states it was sharp in nature and only lasted roughly 5 minutes by time EMS arrived she was pain-free she has had no pain since then she denies any fever denies any cough denies any shortness of breath denies any worsening proving factors. Associated symptoms: Deny abdominal pain, dyspnea, fever(s), nausea or vomiting Review of Systems Const: Denies: fever(s), chills, body aches or change in appetite Eyes: Denies: eye discomfort ENMT: Denies: throat pain or dental pain Card: Reports: chest pain Resp: Denies: dyspnea GI: Denies: abdominal pain, nausea, vomiting or diarrhea : Denies: dysuria Musc: Denies: neck pain or back pain Skin/Breast: Denies: rash Neuro: Denies: headache(s) PFSH ED PFSH: Medical History Acute exacerbation of CHF (congestive heart failure) Anemia in chronic illness Bilateral lower extremity edema CAD (coronary artery disease) Charcot's joint of left foot Chest pain Chronic insomnia Chronic kidney disease Chronic renal insufficiency 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 COPD (chronic obstructive pulmonary disease) Diabetes mellitus type 2, insulin dependent Diabetic neuropathy Elevated troponin ESRD (end stage renal disease) ESRD (end stage renal disease) Fibromyalgia Goals of care, counseling/discussion History of CVA (cerebrovascular accident) History of pulmonary embolism Hyperlipemia Hypertension Hyponatremia Hypothyroidism Influenza A Iron deficiency anemia Lumbar disc disease with radiculopathy MRSA bacteremia Neuropathy Parkinson disease Pneumonia Post laminectomy syndrome Pulmonary hypertension Sciatica associated with disorder of lumbosacral spine Stage 4 chronic renal impairment associated with type 2 diabetes mellitus Uncontrolled insulin dependent diabetes mellitus Vitamin D deficiency Surgical History History of colonoscopy 2020 Hx of cholecystectomy Hx of foot surgery Hx of hysterectomy S/P dialysis catheter insertion Family History Father CAD (coronary artery disease) Mother CAD (coronary artery disease) Diabetes Grandfather CAD (coronary artery disease) Diabetes Social History Smoking and tobacco status: former smoker Second hand smoke exposure: No Alcohol intake: current Alcohol intake frequency: holidays/special occasions only Alcohol type: hard liquor Substance/Drug Use: never Physical Exam Const: COMMON NORMALS: no acute distress, patient oriented x3 and healthy appearing HENMT: COMMON NORMALS: normocephalic and atraumatic HEAD & SCALP: normocephalic and atraumatic Eye: COMMON NORMALS: conjunctivae normal CONJUNCTIVA: Yes conjunctivae normal Neck/C-Spine: COMMON NORMALS: full ROM and supple Chest: COMMONS NORMALS: normal inspection of the chest and normal palpation of entire chest wall Resp: COMMON NORMALS: normal respiratory effort, No retractions, No use of accessory muscles and clear to auscultation bilaterally AUSCULTATION: clear to auscultation bilaterally Cardio: COMMON NORMALS: regular rate, regular rhythm and No murmurs present (Cardio) RATE: regular rate RHYTHM: regular rhythm GI: COMMON NORMALS: Normal to inspection, nondistended, normoactive bowel sounds present, Soft to palpation, non-tender and no masses PALPATION: Yes Soft to palpation Extremity: COMMON NORMALS: normal to inspection and full ROM Neuro: COMMON NORMALS: patient oriented x3, moves all extremities and no focal motor deficits Psych: COMMON NORMALS: mental status grossly normal, Normal thought process present and cooperative THOUGHT PROCESS: Normal thought process present Skin: COMMON NORMALS: no rashes or lesions noted and no wounds GENERAL SKIN EXAM: no rashes or lesions noted Course Vital Signs: Vital signs: Vital Signs Temperature 98.3 F 08/25/22 23:11 Pulse Rate 81 08/26/22 00:43 Respiratory Rate 18 08/26/22 00:46 Blood Pressure 112/61 08/26/22 00:43 Pulse Oximetry 96 08/26/22 00:43 Oxygen Delivery Me thod Room Air 08/25/22 23:13 MDM - Chest Pain Medical Decision Making Myn[place] Patient presents for chest pains atypical in nature her initial and repeat troponins here are negative syndrome she is stable for discharge she is to follow-up with PCP and return if worsening. Lab Data 08/25/22 23:18 08/25/22 23:18 Radiology Impressions Chest X-Ray 08/25/22 23:08 IMPRESSION: 1. Cardiomegaly and pulmonary vascular congestion. 2. Right-sided Port-A-Cath. 3. Thoracic spinal stimulator. Laboratory Results WBC 12.0 10^3/uL (4.0-10.0) H 08/25/22 23:18 RBC 3.12 10^6/uL (4.1-5.3) L 08/25/22 23:18 Hgb 9.5 g/dL (11.5-15.3) L 08/25/22 23:18 Hct 30.4 % (37.0-47.0) L 08/25/22 23:18 MCV 97.4 fl (81-99) 08/25/22 23:18 MCH 30.4 pg (28.0-34.0) 08/25/22 23:18 MCHC 31.3 g/dL (30.0-36.0) 08/25/22 23:18 RDW 16.4 % (12.1-15.1) H 08/25/22 23:18 Plt Count 223 10^3/cmm (130-400) 08/25/22 23:18 MPV 9.9 fL (7.4-10.4) 08/25/22 23:18 Neut % (Auto) 76.6 % 08/25/22 23:18 Lymph % (Auto) 13.9 % 08/25/22 23:18 [place] % (Auto) 5.9 % 08/25/22 23:18 Eos % (Auto) 1.9 % 08/25/22 23:18 Baso % (Auto) 0.7 % 08/25/22 23:18 Neut # (Auto) 9.17 10^3/uL (1.8-7.7) H 08/25/22 23:18 Lymph # (Auto) 1.7 10^3/uL (0.8-4.8) 08/25/22 23:18 [place] # (Auto) 0.7 10^3/uL (0.2-0.9) 08/25/22 23:18 Eos # (Auto) 0.2 10^3/uL (0.0-0.8) 08/25/22 23:18 Baso # (Auto) 0.1 10^3/uL (0.0-0.1) 08/25/22 23:18 Nucleated RBC % (auto) 0 % 08/25/22 23:18 Nucleated RBCs # 0.0 /100WBC 08/25/22 23:18 PT 13.50 SECONDS (12.1-14.9) 08/25/22 23:18 INR 1.00 (0.8-1.2) 08/25/22 23:18 Sodium 138 mmol/L (136-145) 08/25/22 23:18 Potassium 4.2 mmol/L (3.5-5.1) 08/25/22 23:18 Chloride 94 mmol/L (98-107) L 08/25/22 23:18 Carbon Dioxide 26 mmol/L (22-29) 08/25/22 23:18 Anion Gap 22.2 (5-19) H 08/25/22 23:18 BUN 28 mg/dL (8-23) H 08/25/22 23:18 Creatinine 3.3 mg/dL (0.5-0.9) H 08/25/22 23:18 GFR Calculation Not Reportable 08/25/22 23:18 Glucose 209 mg/dL (65-115) H 08/25/22 23:18 Calculated Osmolality 298 mOsm/kg (285-295) H 08/25/22 23:18 Calcium 9.2 mg/dL (8.5-10.5) 08/25/22 23:18 Total Bilirubin 0.4 mg/dL (0.15-1.2) 08/25/22 23:18 AST 22 U/L (0-32) 08/25/22 23:18 ALT < 5 U/L (0-33) 08/25/22 23:18 Alkaline Phosphatase 117 U/L (35-105) H 08/25/22 23:18 Troponin T Baseline 32 ng/L (0-10) H 08/25/22 23:18 Troponin T 120 Minute 33.50 ng/L (0-10) H 08/26/22 00:35 Delta Troponin T 1.50 ABS# (0-10) 08/26/22 00:35 Total Protein 7.1 g/dL (6.6-8.7) 08/25/22 23:18 Albumin 4.1 g/dL (3.5-5.2) 08/25/22 23:18 Globulin 3.0 g/dL (1.3-4.6) 08/25/22 23:18 Lipase 52 U/L (13-60) 08/25/22 23:18 EKG Data EKG 1: I personally reviewed and interpreted this EKG as follows: EKG interpretation date: 08/25/22 EKG interpretation time: 23:15 Interpretation: nsr hr [address] or twave abnormaliies qrs 93 qtc 425 Discharge Plan Discharge Patient Disposition: Home Clinical Impression: Chest pain Condition: Stable Prescriptions: No Action temazepam 7.5 mg capsule 7.5 mg PO BEDTIME acetaminophen 500 mg Tablet 1,000 mg PO Q8H PRN (Reason: Pain) Qty: 30 0RF gabapentin 100 mg Capsule 200 mg PO TID Qty: 30 0RF fentanyl 37.5 mcg/hour patch 72 hour 1 patch transdermal Q72H Qty: 5 0RF bisacodyl 10 mg Suppository 10 mg [place] DAILY PRN (Reason: Constipation) Fleet Enema 19-7 gram/118 mL Enema 118 ml [place] DAILY PRN (Reason: Constipation) bisacodyl [Dulcolax (bisacodyl)] 5 mg Tablet,Delayed Release (Dr/Ec) 10 mg PO DAILY PRN (Reason: Constipation) loratadine [Claritin] 10 mg Tablet 10 mg PO DAILY oxycodone 5 mg Tablet 10 mg PO Q4H PRN (Reason: Pain) MediHoney (honey) 100 % Paste 1 applic TOPICAL DAILY furosemide [Lasix] 40 mg Tablet 40 mg PO BID promethazine-DM 6.25-15 mg/5 mL Syrup 5 ml PO Q4H PRN (Reason: Cough) ipratropium-albuterol 0.5 mg-3 mg(2.5 mg base)/3 mL Solution For Nebulization 3 ml INHALATION Q6H PRN (Reason: Cough) metoprolol tartrate 100 mg Tablet 100 mg PO BID ondansetron HCl 4 mg Tablet 4 mg PO Q8H PRN (Reason: Nausea And Vomiting) clonidine HCl 0.3 mg Tablet 0.3 mg PO Q8H PRN (Reason: systolic bp >160) loperamide [Imodium A-D] 2 mg Tablet 2 mg PO Q6H PRN (Reason: Loose Stool) metolazone 5 mg Tablet 5 mg PO QAM simvastatin 40 mg Tablet 40 mg PO BEDTIME@21 benzonatate 100 mg Capsule 100 mg PO Q8H PRN (Reason: Cough) mirtazapine 30 mg Tablet 30 mg PO BEDTIME@21 ropinirole 0.5 mg Tablet 0.5 mg PO QPM budesonide 0.5 mg/2 mL Suspension For Nebulization 0.5 mg inhalation Q12H Rx Instructions: for 5 days (start date 04/06/22) hydroxyzine HCl 25 mg Tablet 25 mg PO Q8H PRN (Reason: Itching) Renal Caps 1 mg Capsule 1 cap PO QPM albuterol sulfate [ProAir HFA] 90 mcg/actuation Hfa Aerosol Inhaler 2 puff INHALATION Q6H PRN (Reason: Wheezing) carbidopa-levodopa 25-100 mg Tablet 2 tab PO TID sertraline 50 mg Tablet 50 mg PO DAILY hydroxyzine pamoate 25 mg Capsule 25 mg PO BEDTIME insulin aspart U-100 [Novolog FlexPen U-100 Insulin] 100 unit/mL (3 mL) Insulin Pen See Rx Instructions .ROUTE .COMPLEX Rx Instructions: sliding scale three times a day 150-200=3 units 201-250=5 units 251-300=7 units 301-350=9 units 351-400=11 units call provider for bs <60 or >400 cyclobenzaprine 5 mg Tablet 5 mg PO Q8H PRN (Reason: Muscle Spasm) solifenacin 5 mg Tablet 5 mg PO QAM Advair HFA 115-21 mcg/actuation Hfa Aerosol Inhaler 2 puff INHALATION BID insulin glargine [Lantus Solostar U-100 Insulin] 100 unit/mL (3 mL) Insulin Pen 40 unit SUBCUT DAILY@06 cholecalciferol (vitamin D3) [Vitamin D3] 50 mcg (2,000 unit) Capsule 6,000 unit PO DAILY thyroid (pork) [[place] Thyroid] 90 mg Tablet 90 mg PO DAILY [place] 0.01 % Drops 1 drp OPHTHALMIC (EYE) BEDTIME (DME) calcium alginate 2 X 2 Bandage TOPICAL Rx Instructions: apply to left lower leg topically one time a day for diabetic ulcer Biofreeze (menthol) 4 % Gel See Rx Instructions .ROUTE .COMPLEX Rx Instructions: apply to bilat feet topically every 4 hours as needed for pain to feet aspirin 81 mg tablet,delayed release (DR/EC) 81 mg PO DAILY Qty: 30 3RF cephalexin 500 mg capsule See Rx Instructions .ROUTE .COMPLEX Qty: 5 0RF Rx Instructions: 500 mg orally after dialysis, on dialysis days. Discharge Orders: Discharge ED (Routine); Ordered 08/26/22 Ordered By: Kevin Champion Referrals: Brandi Escalera MD [Primary Care Provider] - 1-3 days Discharge Diet: Advance as tolerated Discharge Activity: Resume usual activity Patient Instructions: Chest Pain (ED) Coding Level of Care Code ED Clinical Operations Specialist for Dominick Baca
[2022-08-25 23:37] LABS: Basophils # 0.1 10^3/uL (0.0-0.1); Basophils % 0.7 %; Eosinophils # 0.2 10^3/uL (0.0-0.8); Eosinophils % 1.9 %; Hematocrit 30.4 % (37.0-47.0); Hemoglobin 9.5 g/dL (11.5-15.3); Lymphocytes # 1.7 10^3/uL (0.8-4.8); Lymphocytes % 13.9 %; Mean Corpuscular HGB Conc 31.3 g/dL (30.0-36.0); Mean Corpuscular Hemoglobin 30.4 pg (28.0-34.0); Mean Corpuscular Volume 97.4 fl (81-99); Mean Platelet Volume 9.9 fL (7.4-10.4); Monocytes # 0.7 10^3/uL (0.2-0.9); Monocytes % 5.9 %; Neutrophils # 9.17 10^3/uL (1.8-7.7); Neutrophils % 76.6 %; Nucleated Red Blood Cells % 0 %; Platelet Count 223 10^3/cmm (130-400); Red Blood Count 3.12 10^6/uL (4.1-5.3); Red Cell Distribution Width 16.4 % (12.1-15.1)
[2022-08-26 00:28] LABS: Troponin(5th) Baseline 32 ng/L (0-10)
[2022-08-26 00:30] LABS: Alanine Aminotransferase < 5 U/L (0-33); Albumin Level 4.1 g/dL (3.5-5.2); Alkaline Phosphatase 117 U/L (35-105); Blood Urea Nitrogen 28 mg/dL (8-23); Calcium 9.2 mg/dL (8.5-10.5); Carbon Dioxide 26 mmol/L (22-29); Chloride 94 mmol/L (98-107); Glucose 209 mg/dL (65-115); Lipase 52 U/L (13-60); Osmolality Calculated 298 mOsm/kg (285-295); Sodium 138 mmol/L (136-145); Total Bilirubin 0.4 mg/dL (0.15-1.2); Total Protein 7.1 g/dL (6.6-8.7)
[2022-08-26 00:33] LABS: Anion Gap 22.2 (5-19); Potassium 4.2 mmol/L (3.5-5.1)
[2022-08-26 00:34] LABS: Aspartate Amino Transferase 22 U/L (0-32)
[2022-08-26 00:43] VITALS: BP 112/61; PULSE 81; RESP 14; O2SAT 96
[2022-08-26] MEDS: ondansetron 2 mg/ML SDV 2 mL 4 MG IVP (00:44)
[2022-08-26 00:46] VITALS: RESP 18
[2022-08-26] MEDS: morphine 4 mg/mL SDV 1 mL IVP (00:46)
[2022-08-26 01:59] VITALS: BP 126/48; PULSE 83; RESP 16; O2SAT 83
== END 2022-08-26 02:01 | disposition home or self-care (01) ==
PROVIDERS: Emergency Provider Emergency Medicine; PCP Family Medicine
DX: R07.9 Chest pain, unspecified (principal); I25.10 Atherosclerotic heart disease of native coronary artery without angina pectoris; I11.0 Hypertensive heart disease with heart failure; I50.9 Heart failure, unspecified
CPT/HCPCS: 71045; 80053; 83690; 84484; 85025; 85610; 93005; 96374; 96375; 99285; J2270; J2405

== ENCOUNTER 2022-08-26 16:37 | Emergency (ER) | payer MEDICARE, OTHER, SELFPAY ==
--- NOTE | 2022-08-26 16:39 | XRR_ITS ---
PROCEDURE INFORMATION: Exam: XR Left Knee Exam date and time: 08/26/2022 4:48 PM Age: 77 years old Clinical indication: Pain; Left; Prior surgery; Surgery date: <1 month; Surgery type: Below knee amputation; Additional info: Pain sp/bka TECHNIQUE: Imaging protocol: Radiologic exam of the left knee. Views: 3 views. COMPARISON: CR (LOW EXM, ) 07/15/2022 3:22 PM FINDINGS: Bones/joints: Status post below the knee amputation. There has been interval removal of the surgical donaldo since the prior radiographs. Soft tissues: There is edema in the soft tissues, less prominent when compared to the prior study. XR/XR knee LT 3V* [id number] IMPRESSION: There is edema in the soft tissues, less prominent when compared to the prior study.
[2022-08-26 16:40] VITALS: BP 160/59; PULSE 76; RESP 17; TEMP 36.2; O2SAT 92
--- NOTE | 2022-08-26 16:45 | ED_ITS ---
HPI - Extremity Injury (Lower) General: Chief Complaint: Extremity Problem,Nontraumatic Stated Complaint: PAIN AT SURGERY SITE LEFT LEG Time Seen by Provider: 08/26/22 16:39 Source: patient Mode of arrival: EMS History of Present Illness: 77-year-old female [facility] with complaints of pain at the stump on her left leg where she had a below the knee amputation due to gangrenous foot ulcer. This was done 2 weeks ago today she began having significant pain they gave her pain medications there did not improvement she ultimately requested to go to the ER. She has not had any fevers sweats or chills. MD complaint: other (Left below-knee amputation status post 2 weeks) Onset (ago): hour(s) Injury: Left: knee Severity: moderate Relieving factors: nothing Exacerbating factors: nothing Context: other (Recent left below the knee amputation) Other symptoms: none Review of Systems Const: Denies: fever(s), chills, body aches, change in appetite, fatigue or malaise ENMT: Denies: throat pain, ear or mastoid pain, nasal discharge or nasal congestion Card: Denies: chest pain, irregular heart rhythm, edema, dyspnea on exertion or orthopnea Resp: Denies: dyspnea, productive cough or non-productive cough GI: Denies: abdominal pain, nausea, vomiting, hematemesis, coffee ground emesis, diarrhea, constipation, bloating, hematochezia or melena : Denies: flank pain, difficulty voiding, dysuria, urinary frequency or urinary urgency Skin/Breast: Denies: rash or pruritus PFS ED PFSH: Medical History Acute exacerbation of CHF (congestive heart failure) Anemia in chronic illness Bilateral lower extremity edema CAD (coronary artery disease) Charcot's joint of left foot Chest pain Chronic insomnia Chronic kidney disease Chronic renal insufficiency 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 COPD (chronic obstructive pulmonary disease) Diabetes mellitus type 2, insulin dependent Diabetic neuropathy Elevated troponin ESRD (end stage renal disease) ESRD (end stage renal disease) Fibromyalgia Goals of care, counseling/discussion History of CVA (cerebrovascular accident) History of pulmonary embolism Hyperlipemia Hypertension Hyponatremia Hypothyroidism Influenza A Iron deficiency anemia Lumbar disc disease with radiculopathy MRSA bacteremia Neuropathy Parkinson disease Pneumonia Post laminectomy syndrome Pulmonary hypertension Sciatica associated with disorder of lumbosacral spine Stage 4 chronic renal impairment associated with type 2 diabetes mellitus Uncontrolled insulin dependent diabetes mellitus Vitamin D deficiency Surgical History History of colonoscopy 2020 Hx of cholecystectomy Hx of foot surgery Hx of hysterectomy S/P dialysis catheter insertion Family History Father CAD (coronary artery disease) Mother CAD (coronary artery disease) Diabetes Grandfather CAD (coronary artery disease) Diabetes Social History Smoking and tobacco status: former smoker Second hand smoke exposure: No Alcohol intake: current Alcohol intake frequency: holidays/special occasions only Alcohol type: hard liquor Substance/Drug Use: never Physical Exam Const: GENERAL APPEARANCE: cooperative and comfortable ORIENTATION/CONSCIOUSNESS: Yes awake, Yes oriented to person, Yes oriented to place and Yes oriented to time HENMT: COMMON NORMALS: normocephalic, atraumatic and hearing grossly normal bilaterally HEAD & SCALP: normocephalic and atraumatic Resp: COMMON NORMALS: normal respiratory effort, No retractions, No use of accessory muscles and clear to auscultation bilaterally AUSCULTATION: clear to auscultation bilaterally Cardio: COMMON NORMALS: regular rate, regular rhythm and No murmurs present (Cardio) RATE: regular rate RHYTHM: regular rhythm GI: COMMON NORMALS: Soft to palpation and No hepatosplenomegaly present AUSCULTATION: Yes normoactive bowel sounds PALPATION: Yes Soft to palpation, No Tenderness to palpation present (GI), No Guarding due to palpation present (GI) and Yes No hepatosplenomegaly present Extremity: OTHER: Left below the knee amputation mild redness around the sutures. There is some dehiscence of the wound at the lateral portion proximately 2 inches irregular round. No active drainage mucousy eschar in place Neuro: SENSORIUM/ORIENTATION: Yes oriented to person, Yes oriented to place and Yes oriented to time Course Vital Signs: Vital signs: Vital Signs Temperature 97.1 F L 08/26/22 16:40 Pulse Rate 100 08/26/22 18:44 Respiratory Rate 18 08/26/22 18:44 Blood Pressure 161/91 08/26/22 18:44 Pulse Oximetry 97 08/26/22 18:44 Oxygen Delivery Me thod Nasal Cannula 08/26/22 17:31 Oxygen Flow Rate 2 08/26/22 17:31 MDM - Extremity Injury (Lower) Medical Decision Making Patient has marginal kidney function. We will start her on doxycycline and topical mupirocin to the wound. Continue to monitor kidney function. Cultures done we increased her fentanyl patch for pain continue oxycodone for breakthrough pain follow-up with orthopedics and her primary care doctor [facility] Medical Records I reviewed the patient's medical records. Lab Data I reviewed the patient's lab results. 08/26/22 17:00 08/26/22 17:00 Radiology Impressions Knee X-Ray 08/26/22 16:39 IMPRESSION: There is edema in the soft tissues, less prominent when compared to the prior study. Laboratory Results WBC 11.7 10^3/uL (4.0-10.0) H 08/26/22 17:00 RBC 2.91 10^6/uL (4.1-5.3) L 08/26/22 17:00 Hgb 8.7 g/dL (11.5-15.3) L 08/26/22 17:00 Hct 28.8 % (37.0-47.0) L 08/26/22 17:00 MCV 99.0 fl (81-99) 08/26/22 17:00 MCH 29.9 pg (28.0-34.0) 08/26/22 17:00 MCHC 30.2 g/dL (30.0-36.0) 08/26/22 17:00 RDW 16.8 % (12.1-15.1) H 08/26/22 17:00 Plt Count 221 10^3/cmm (130-400) 08/26/22 17:00 MPV 9.9 fL (7.4-10.4) 08/26/22 17:00 Neut % (Auto) 75.9 % 08/26/22 17:00 Lymph % (Auto) 12.9 % 08/26/22 17:00 [place] % (Auto) 6.5 % 08/26/22 17:00 Eos % (Auto) 3.2 % 08/26/22 17:00 Baso % (Auto) 0.7 % 08/26/22 17:00 Neut # (Auto) 8.89 10^3/uL (1.8-7.7) H 08/26/22 17:00 Lymph # (Auto) 1.5 10^3/uL (0.8-4.8) 08/26/22 17:00 [place] # (Auto) 0.8 10^3/uL (0.2-0.9) 08/26/22 17:00 Eos # (Auto) 0.4 10^3/uL (0.0-0.8) 08/26/22 17:00 Baso # (Auto) 0.1 10^3/uL (0.0-0.1) 08/26/22 17:00 Nucleated RBC % (auto) 0 % 08/26/22 17:00 Nucleated RBCs # 0.0 /100WBC 08/26/22 17:00 Sodium 140 mmol/L (136-145) 08/26/22 17:00 Potassium 4.4 mmol/L (3.5-5.1) 08/26/22 17:00 Chloride 95 mmol/L (98-107) L 08/26/22 17:00 Carbon Dioxide 31 mmol/L (22-29) H 08/26/22 17:00 Anion Gap 18.4 (5-19) 08/26/22 17:00 BUN 42 mg/dL (8-23) H 08/26/22 17:00 Creatinine 4.5 mg/dL (0.5-0.9) H 08/26/22 17:00 GFR Calculation Not Reportable 08/26/22 17:00 Glucose 163 mg/dL (65-115) H 08/26/22 17:00 Calculated Osmolality 304 mOsm/kg (285-295) H 08/26/22 17:00 Calcium 9.1 mg/dL (8.5-10.5) 08/26/22 17:00 C-Reactive Protein 30.8 mg/L (0.0-4.9) H 08/26/22 17:00 Discharge Plan Discharge Patient Disposition: Home Clinical Impression: Dehiscence of wound, Postoperative pain Condition: Stable Prescriptions: New doxycycline hyclate 100 mg capsule 100 mg PO BID 10 Days Qty: 20 0RF mupirocin 2 % ointment 1 applic topical BID Qty: 22 0RF Rx Instructions: Apply twice daily to wound particularly to open area fentanyl 75 mcg/hr patch 72 hour 1 patch transdermal Q72H Qty: 5 0RF Discontinued fentanyl 37.5 mcg/hour patch 72 hour 1 patch transdermal Q72H Qty: 5 0RF No Action temazepam 7.5 mg capsule 7.5 mg PO BEDTIME acetaminophen 500 mg Tablet 1,000 mg PO Q8H PRN (Reason: Pain) Qty: 30 0RF gabapentin 100 mg Capsule 200 mg PO TID Qty: 30 0RF bisacodyl 10 mg Suppository 10 mg [place] DAILY PRN (Reason: Constipation) Fleet Enema 19-7 gram/118 mL Enema 118 ml [place] DAILY PRN (Reason: Constipation) bisacodyl [Dulcolax (bisacodyl)] 5 mg Tablet,Delayed Release (Dr/Ec) 10 mg PO DAILY PRN (Reason: Constipation) loratadine [Claritin] 10 mg Tablet 10 mg PO DAILY oxycodone 5 mg Tablet 10 mg PO Q4H PRN (Reason: Pain) MediHoney (honey) 100 % Paste 1 applic TOPICAL DAILY furosemide [Lasix] 40 mg Tablet 40 mg PO BID promethazine-DM 6.25-15 mg/5 mL Syrup 5 ml PO Q4H PRN (Reason: Cough) ipratropium-albuterol 0.5 mg-3 mg(2.5 mg base)/3 mL Solution For Nebulization 3 ml INHALATION Q6H PRN (Reason: Cough) metoprolol tartrate 100 mg Tablet 100 mg PO BID ondansetron HCl 4 mg Tablet 4 mg PO Q8H PRN (Reason: Nausea And Vomiting) clonidine HCl 0.3 mg Tablet 0.3 mg PO Q8H PRN (Reason: systolic bp >160) loperamide [Imodium A-D] 2 mg Tablet 2 mg PO Q6H PRN (Reason: Loose Stool) metolazone 5 mg Tablet 5 mg PO QAM simvastatin 40 mg Tablet 40 mg PO BEDTIME@21 benzonatate 100 mg Capsule 100 mg PO Q8H PRN (Reason: Cough) mirtazapine 30 mg Tablet 30 mg PO BEDTIME@21 ropinirole 0.5 mg Tablet 0.5 mg PO QPM budesonide 0.5 mg/2 mL Suspension For Nebulization 0.5 mg inhalation Q12H Rx Instructions: for 5 days (start date 04/06/22) hydroxyzine HCl 25 mg Tablet 25 mg PO Q8H PRN (Reason: Itching) Renal Caps 1 mg Capsule 1 cap PO QPM albuterol sulfate [ProAir HFA] 90 mcg/actuation Hfa Aerosol Inhaler 2 puff INHALATION Q6H PRN (Reason: Wheezing) carbidopa-levodopa 25-100 mg Tablet 2 tab PO TID sertraline 50 mg Tablet 50 mg PO DAILY hydroxyzine pamoate 25 mg Capsule 25 mg PO BEDTIME insulin aspart U-100 [Novolog FlexPen U-100 Insulin] 100 unit/mL (3 mL) Insulin Pen See Rx Instructions .ROUTE .COMPLEX Rx Instructions: sliding scale three times a day 150-200=3 units 201-250=5 units 251-300=7 units 301-350=9 units 351-400=11 units call provider for bs <60 or >400 cyclobenzaprine 5 mg Tablet 5 mg PO Q8H PRN (Reason: Muscle Spasm) solifenacin 5 mg Tablet 5 mg PO QAM Advair HFA 115-21 mcg/actuation Hfa Aerosol Inhaler 2 puff INHALATION BID insulin glargine [Lantus Solostar U-100 Insulin] 100 unit/mL (3 mL) Insulin Pen 40 unit SUBCUT DAILY@06 cholecalciferol (vitamin D3) [Vitamin D3] 50 mcg (2,000 unit) Capsule 6,000 unit PO DAILY thyroid (pork) [Nesbit Thyroid] 90 mg Tablet 90 mg PO DAILY Lumigan 0.01 % Drops 1 drp OPHTHALMIC (EYE) BEDTIME (DME) calcium alginate 2 X 2 Bandage TOPICAL Rx Instructions: apply to left lower leg topically one time a day for diabetic ulcer Biofreeze (menthol) 4 % Gel See Rx Instructions .ROUTE .COMPLEX Rx Instructions: apply to bilat feet topically every 4 hours as needed for pain to feet aspirin 81 mg tablet,delayed release (DR/EC) 81 mg PO DAILY Qty: 30 3RF cephalexin 500 mg capsule See Rx Instructions .ROUTE .COMPLEX Qty: 5 0RF Rx Instructions: 500 mg orally after dialysis, on dialysis days. Discharge Orders: Discharge ED (Routine); Ordered 08/26/22 Ordered By: Federico Mccarty Referrals: Brandi Escalera MD [Primary Care Provider] - Discharge Diet: Usual diet Discharge Activity: Increase activity as tolerated Patient Instructions: Opioid Safety, Pain Management Activity Restrictions/Additional Instructions: You were seen today for pain at your amputation site. We increased your fentanyl patch to 75 mcg every 72 hours continue the oxycodone for breakthrough pain also started you on topical antibiotic ointment to the wound site and an oral antibiotic. Follow-up with your doctor as previously scheduled. Return to the emergency room if further problems. Coding Level of Care Code ED Ladies' Hat Trimmer for Dominick Baca
[2022-08-26] MEDS: ondansetron 2 mg/ML SDV 2 mL 4 MG IVP (16:54)
[2022-08-26 16:55] VITALS: RESP 15
[2022-08-26] MEDS: morphine 4 mg/mL SDV 1 mL IVP ×2 (16:55→18:03)
[2022-08-26 17:01] VITALS: PULSE 80
[2022-08-26 17:19] LABS: Basophils # 0.1 10^3/uL (0.0-0.1); Basophils % 0.7 %; Eosinophils # 0.4 10^3/uL (0.0-0.8); Eosinophils % 3.2 %; Hematocrit 28.8 % (37.0-47.0); Hemoglobin 8.7 g/dL (11.5-15.3); Lymphocytes # 1.5 10^3/uL (0.8-4.8); Lymphocytes % 12.9 %; Mean Corpuscular HGB Conc 30.2 g/dL (30.0-36.0); Mean Corpuscular Hemoglobin 29.9 pg (28.0-34.0); Mean Platelet Volume 9.9 fL (7.4-10.4); Monocytes # 0.8 10^3/uL (0.2-0.9); Monocytes % 6.5 %; Neutrophils # 8.89 10^3/uL (1.8-7.7); Neutrophils % 75.9 %; Nucleated Red Blood Cells % 0 %; Platelet Count 221 10^3/cmm (130-400); Red Blood Count 2.91 10^6/uL (4.1-5.3); Red Cell Distribution Width 16.8 % (12.1-15.1); White Blood Count 11.7 10^3/uL (4.0-10.0)
[2022-08-26 17:31] VITALS: BP 136/80; PULSE 90; RESP 18; O2SAT 98
[2022-08-26 17:34] LABS: Anion Gap 18.4 (5-19); Blood Urea Nitrogen 42 mg/dL (8-23); C Reactive Protein 30.8 mg/L (0.0-4.9); Calcium 9.1 mg/dL (8.5-10.5); Carbon Dioxide 31 mmol/L (22-29); Chloride 95 mmol/L (98-107); Glucose 163 mg/dL (65-115); Osmolality Calculated 304 mOsm/kg (285-295); Potassium 4.4 mmol/L (3.5-5.1); Sodium 140 mmol/L (136-145)
[2022-08-26 18:03] VITALS: RESP 14; O2SAT 97
[2022-08-26 18:44] VITALS: BP 161/91; PULSE 100; RESP 18; O2SAT 97
[2022-08-27 18:16] LABS: Bacillus cereus group Not Detected (NOT DETECT); Bacillus subtillis group Not Detected (NOT DETECT); Corynebacterium Not Detected (NOT DETECT); Cutibacterium acnes (P.acnes) Not Detected (NOT DETECT); Enterococcus Not Detected (NOT DETECT); Enterococcus faecalis Not Detected (NOT DETECT); Enterococcus faecium Not Detected (NOT DETECT); Lactobacillus species Not Detected (NOT DETECT); Listeria Not Detected (NOT DETECT); Listeria monocytogenes Not Detected (NOT DETECT); Micrococcus Not Detected (NOT DETECT); Pan Candida Not Detected (NOT DETECT); Pan Gram-Negative Not Detected (NOT DETECT); Staphylococcus epidermidis Not Detected (NOT DETECT); Staphylococcus lugdunensis Not Detected (NOT DETECT); Staphylococcus species Not Detected (NOT DETECT); Streptococcus agalactiae Not Detected (NOT DETECT); Streptococcus anginosus group Not Detected (NOT DETECT); Streptococcus pneumoniae Not Detected (NOT DETECT); Streptococcus pyogenes Not Detected (NOT DETECT); Streptococcus species Not Detected (NOT DETECT)
== END 2022-08-26 18:46 | disposition home or self-care (01) ==
PROVIDERS: Emergency Provider Family Medicine; PCP Family Medicine
DX: T87.81 Dehiscence of amputation stump (principal); G89.18 Other acute postprocedural pain; Z79.82 Long term (current) use of aspirin; Z79.4 Long term (current) use of insulin; Z87.891 Personal history of nicotine dependence; I25.10 Atherosclerotic heart disease of native coronary artery without angina pectoris; I13.2 Hypertensive heart and chronic kidney disease with heart failure and with stage 5 chronic kidney disease, or end stage renal disease; E11.22 Type 2 diabetes mellitus with diabetic chronic kidney disease; N18.6 End stage renal disease; I50.9 Heart failure, unspecified; J44.9 Chronic obstructive pulmonary disease, unspecified; Z86.73 Personal history of transient ischemic attack (TIA), and cerebral infarction without residual deficits; E78.5 Hyperlipidemia, unspecified; Y65.8 Other specified misadventures during surgical and medical care; Y92.122 Bedroom in nursing home as the place of occurrence of the external cause
CPT/HCPCS: 36415; 73562; 80048; 85025; 86140; 87040; 87077; 87186; 87205; 96374; 96375; 96376; 99284; A6446; J2270; J2405

== ENCOUNTER → 2022-08-29 14:15 | Outpatient (BNVA) | payer MEDICARE, OTHER, SELFPAY | PROVIDERS: PCP Family Medicine; Visit Provider Nurse Practitioner Family | DX: Z89.512 Acquired absence of left leg below knee (principal); E11.42 Type 2 diabetes mellitus with diabetic polyneuropathy; E11.8 Type 2 diabetes mellitus with unspecified complications; I73.9 Peripheral vascular disease, unspecified; L97.411 Non-pressure chronic ulcer of right heel and midfoot limited to breakdown of skin; E11.621 Type 2 diabetes mellitus with foot ulcer; Z79.4 Long term (current) use of insulin | CPT/HCPCS: 99024; 99213; 99214 ==

== ENCOUNTER → 2022-08-31 11:10 | Outpatient (BNVA) | payer MEDICARE, OTHER, SELFPAY | PROVIDERS: PCP Family Medicine; Visit Provider Nurse Practitioner Family | DX: I96 Gangrene, not elsewhere classified (principal); L89.322 Pressure ulcer of left buttock, stage 2; L89.892 Pressure ulcer of other site, stage 2; E11.621 Type 2 diabetes mellitus with foot ulcer; L89.612 Pressure ulcer of right heel, stage 2; L89.312 Pressure ulcer of right buttock, stage 2 | CPT/HCPCS: 97597; 97598 ==

== ENCOUNTER → 2022-09-20 07:57 | Outpatient (BNVA) | payer MEDICARE, OTHER, SELFPAY | PROVIDERS: PCP Family Medicine; Visit Provider Podiatrist Foot & Ankle Surgery | DX: E11.621 Type 2 diabetes mellitus with foot ulcer (principal); Z89.421 Acquired absence of other right toe(s); Z79.4 Long term (current) use of insulin; I73.9 Peripheral vascular disease, unspecified; E11.42 Type 2 diabetes mellitus with diabetic polyneuropathy; Z89.512 Acquired absence of left leg below knee; L97.412 Non-pressure chronic ulcer of right heel and midfoot with fat layer exposed | CPT/HCPCS: 99214 ==

== ENCOUNTER → 2022-09-26 12:57 | Outpatient (BNVA) | payer MEDICARE, OTHER, SELFPAY | PROVIDERS: PCP Family Medicine; Visit Provider Nurse Practitioner Family | DX: Z89.512 Acquired absence of left leg below knee (principal); Z98.890 Other specified postprocedural states | CPT/HCPCS: 99213 ==

== ENCOUNTER → 2022-10-18 08:21 | Outpatient (BNVA) | payer MEDICARE, OTHER, SELFPAY | PROVIDERS: PCP Family Medicine; Visit Provider Podiatrist Foot & Ankle Surgery | DX: E11.42 Type 2 diabetes mellitus with diabetic polyneuropathy (principal); I73.9 Peripheral vascular disease, unspecified; Z89.512 Acquired absence of left leg below knee; Z89.421 Acquired absence of other right toe(s); E11.621 Type 2 diabetes mellitus with foot ulcer; Z79.4 Long term (current) use of insulin; L97.411 Non-pressure chronic ulcer of right heel and midfoot limited to breakdown of skin; L97.412 Non-pressure chronic ulcer of right heel and midfoot with fat layer exposed | CPT/HCPCS: 99214 ==

== ENCOUNTER → 2022-10-24 12:58 | Outpatient (BNVA) | payer MEDICARE, OTHER, SELFPAY | PROVIDERS: PCP Family Medicine; Visit Provider Nurse Practitioner Family | DX: Z89.512 Acquired absence of left leg below knee (principal) | CPT/HCPCS: 99213 ==

== ENCOUNTER → 2022-11-08 09:06 | Outpatient (BNVA) | payer MEDICARE, OTHER, SELFPAY | PROVIDERS: PCP Family Medicine; Visit Provider Podiatrist Foot & Ankle Surgery | DX: I73.9 Peripheral vascular disease, unspecified (principal); E11.42 Type 2 diabetes mellitus with diabetic polyneuropathy; E11.621 Type 2 diabetes mellitus with foot ulcer; Z89.421 Acquired absence of other right toe(s); Z79.4 Long term (current) use of insulin; L97.411 Non-pressure chronic ulcer of right heel and midfoot limited to breakdown of skin; L97.412 Non-pressure chronic ulcer of right heel and midfoot with fat layer exposed; Z89.512 Acquired absence of left leg below knee | CPT/HCPCS: 99214 ==

== ENCOUNTER → 2022-11-21 13:05 | Outpatient (BNVA) | payer MEDICARE, OTHER, SELFPAY | PROVIDERS: PCP Family Medicine; Visit Provider Nurse Practitioner Family | DX: Z89.512 Acquired absence of left leg below knee (principal) | CPT/HCPCS: 99213 ==

== ENCOUNTER → 2022-12-06 08:44 | Outpatient (BNVA) | payer MEDICARE, OTHER, SELFPAY | PROVIDERS: PCP Family Medicine; Visit Provider Podiatrist Foot & Ankle Surgery | DX: Z89.512 Acquired absence of left leg below knee (principal); E11.42 Type 2 diabetes mellitus with diabetic polyneuropathy; I73.9 Peripheral vascular disease, unspecified; Z89.421 Acquired absence of other right toe(s); Z79.4 Long term (current) use of insulin | CPT/HCPCS: 99214 ==

== ENCOUNTER → 2023-02-21 08:21 | Outpatient (BNVA) | payer MEDICARE, OTHER, SELFPAY | PROVIDERS: PCP Family Medicine; Visit Provider Podiatrist Foot & Ankle Surgery | DX: Z89.512 Acquired absence of left leg below knee (principal); L97.411 Non-pressure chronic ulcer of right heel and midfoot limited to breakdown of skin; E11.42 Type 2 diabetes mellitus with diabetic polyneuropathy; I73.9 Peripheral vascular disease, unspecified; Z89.421 Acquired absence of other right toe(s); L97.412 Non-pressure chronic ulcer of right heel and midfoot with fat layer exposed; E11.621 Type 2 diabetes mellitus with foot ulcer; Z79.4 Long term (current) use of insulin | CPT/HCPCS: 99213 ==

== ENCOUNTER → 2023-03-09 14:44 | Outpatient (BNVA) | payer MEDICARE, OTHER, SELFPAY | PROVIDERS: PCP Family Medicine; Referring Provider Family Medicine; Visit Provider Specialist | DX: G20.B1 Parkinson's disease with dyskinesia, without mention of fluctuations (principal) | CPT/HCPCS: 99214 ==

== ENCOUNTER 2023-04-29 02:02 | Inpatient (IN) | payer MEDICARE, OTHER, MEDICAID, SELFPAY ==
[2023-04-29] VITALS (15 sets, daily range): BP systolic 88–151; BP diastolic 45–66; PULSE 70–119; RESP 16–21; TEMP 36.3–37.3; O2SAT 89–97; BMI 41.3; BMI 42.0
--- NOTE | 2023-04-29 02:06 | XRR_ITS ---
PROCEDURE INFORMATION: Exam: XR Chest Exam date and time: 04/29/2023 2:14 AM Age: 78 years old Clinical indication: Shortness of breath; Prior surgery; Surgery date: 6+ months; Surgery type: Dialysis cath. Stimulator; Patient HX: SOB with hypoxia. Covid +. TECHNIQUE: Imaging protocol: Radiologic exam of the chest. Views: 1 view. COMPARISON: CR (CHEST, ) 08/25/2022 11:11 PM FINDINGS: Tubes, catheters and devices: Neurostimulator wire leads overlie the lower thoracic spine. Lungs: Unremarkable. No consolidation. Pleural spaces: Unremarkable. No pleural effusion. No pneumothorax. Heart/Mediastinum: Unremarkable. No cardiomegaly. Bones/joints: Unremarkable. XR/XR chest 1V portable [id number] IMPRESSION: No acute cardiopulmonary disease.
--- NOTE | 2023-04-29 02:14 | ED_ITS ---
HPI - SOB/Dyspnea 2 General: Chief Complaint: Shortness of Breath/Dyspnea Stated Complaint: Covid + Time Seen by Provider: 04/29/23 02:03 Source: patient and EMS Mode of arrival: EMS Limitations: no limitations History of Present Illness: HPI Narrative: 78-year-old female is here from skilled nursing. She has a history of COPD she states she had a cough over the last 2 days she tested positive for COVID yesterday at the skilled nursing. Patient does not typically wear oxygen she was requiring 4 to 6 L at the skilled nursing patient is currently on 2 L here. Nursing states she had been altered there but he is answering my questions appropriately here. States she does feel quite short of breath. 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 COPD (chronic obstructive pulmonary disease) Diabetes mellitus type 2, insulin dependent Diabetic neuropathy Elevated troponin ESRD (end stage renal disease) ESRD (end stage renal disease) Fibromyalgia Goals of care, counseling/discussion History of CVA (cerebrovascular accident) History of pulmonary embolism Hyperlipemia Hypertension Hyponatremia Hypothyroidism Influenza A Iron deficiency anemia Lumbar disc disease with radiculopathy MRSA bacteremia Neuropathy Parkinson disease Pneumonia Post laminectomy syndrome Pulmonary hypertension Sciatica associated with disorder of lumbosacral spine Stage 4 chronic renal impairment associated with type 2 diabetes mellitus Uncontrolled insulin dependent diabetes mellitus Vitamin D deficiency Surgical History S/P dialysis catheter insertion History of colonoscopy 2020 Hx of hysterectomy Hx of cholecystectomy Hx of foot surgery Family History Father CAD (coronary artery disease) Mother CAD (coronary artery disease) Diabetes Grandfather CAD (coronary artery disease) Diabetes Social History Smoking and tobacco/nicotine status: former use of tobacco/nicotine Second hand smoke exposure: No Alcohol intake: current Alcohol intake frequency: holidays/special occasions only Alcohol type: hard liquor Substance/Drug Use: never Physical Exam 2 Const: COMMON NORMALS: patient oriented x3 HENMT: COMMON NORMALS: normocephalic and atraumatic HEAD & SCALP: n ormocephalic and atraumatic Neck/C-Spine: COMMON NORMALS: full ROM and supple Chest: COMMONS NORMALS: normal inspection of the chest and normal palpation of entire chest wall Resp: COMMON NORMALS: No retractions and clear to auscultation bilaterally AUSCULTATION: clear to auscultation bilaterally and rales Cardio: COMMON NORMALS: regular rate, regular rhythm and No murmurs present (Cardio) RATE: regular rate RHYTHM: regular rhythm GI: COMMON NORMALS: Normal to inspection, nondistended, normoactive bowel sounds present, Soft to palpation, non-tender and no masses PALPATION: Yes Soft to palpation Extremity: COMMON NORMALS: normal to inspection and full ROM Neuro: COMMON NORMALS: patient oriented x3, moves all extremities and no focal motor deficits Psych: COMMON NORMALS: mental status grossly normal, Normal thought process present and cooperative THOUGHT PROCESS: Normal thought process present Skin: COMMON NORMALS: no rashes or lesions noted and no wounds GENERAL SKIN EXAM: no rashes or lesions noted Course 2 Vital Signs: Vital signs: Vital Signs Temperature 99.2 F 04/29/23 02:03 Pulse Rate 72 04/29/23 02:03 Respiratory Rate 21 H 04/29/23 02:03 Blood Pressure 124/61 04/29/23 02:03 Pulse Oximetry 89 L 04/29/23 02:03 Oxygen Delivery Me thod Room Air 04/29/23 02:03 MDM - SOB/Dyspnea Medical Decision Making Patient presents here with hypoxia likely from COVID-pneumonia she also has acute kidney injury on chronic kidney disease. Patient is requiring 2 L oxygen here she is improved after breathing treatments did give her IV steroids spoke to hospitalist will admit. Medical Records I reviewed the patient's medical records. Lab Data I reviewed the patient's lab results. 04/29/23 02:20 04/29/23 02:20 Labs/Radiology: Laboratory Results WBC 8.52 10^3/uL (3.29-11.43) 04/29/23 02:20 RBC 2.93 10^6/uL (3.85-5.65) L 04/29/23 02:20 Hgb 9.10 g/dL (11.27-16.99) L 04/29/23 02:20 Hct 29.7 % (36-47) L 04/29/23 02:20 MCV 101.4 fl (85-98) H 04/29/23 02:20 MCH 31.1 pg (27-33) 04/29/23 02:20 MCHC 30.6 g/dL (30-55) 04/29/23 02:20 RDW 17.8 % (12.1-15.1) H 04/29/23 02:20 Plt Count 191 10^3/cmm (157-399) 04/29/23 02:20 MPV 10.3 fL (7.4-10.4) 04/29/23 02:20 Neut % (Auto) 78.5 % 04/29/23 02:20 Lymph % (Auto) 9.7 % 04/29/23 02:20 [place] % (Auto) 8.8 % 04/29/23 02:20 Eos % (Auto) 1.9 % 04/29/23 02:20 Baso % (Auto) 0.5 % 04/29/23 02:20 Neut # (Auto) 6.69 10^3/uL (1.8-7.7) 04/29/23 02:20 Lymph # (Auto) 0.8 10^3/uL (0.8-4.8) 04/29/23 02:20 [place] # (Auto) 0.8 10^3/uL (0.2-0.9) 04/29/23 02:20 Eos # (Auto) 0.2 10^3/uL (0.0-0.8) 04/29/23 02:20 Baso # (Auto) 0.0 10^3/uL (0.0-0.1) 04/29/23 02:20 Nucleated RBC % (auto) 0 % 04/29/23 02:20 Nucleated RBCs # 0.0 /100WBC 04/29/23 02:20 Sodium 140 mmol/L (136-145) 04/29/23 02:20 Potassium 4.5 mmol/L (3.5-5.1) 04/29/23 02:20 Chloride 97 mmol/L (98-107) L 04/29/23 02:20 Carbon Dioxide 31 mmol/L (22-29) H 04/29/23 02:20 Anion Gap 16.5 (5-19) 04/29/23 02:20 BUN 49 mg/dL (8-23) H 04/29/23 02:20 Creatinine 5.1 mg/dL (0.5-0.9) H 04/29/23 02:20 GFR Calculation Not Reportable 04/29/23 02:20 Glucose 102 mg/dL (65-115) 04/29/23 02:20 Calculated Osmolality 303 mOsm/kg (285-295) H 04/29/23 02:20 Calcium 8.7 mg/dL (8.5-10.5) 04/29/23 02:20 Total Bilirubin 0.8 mg/dL (0.15-1.2) 04/29/23 02:20 AST 14 U/L (0-32) 04/29/23 02:20 ALT < 5 U/L (0-33) 04/29/23 02:20 Alkaline Phosphatase 104 U/L (35-105) 04/29/23 02:20 NT-Pro-B Natriuret Pep 56642 pg/mL (0-450) H 04/29/23 02:20 Total Protein 7.2 g/dL (6.6-8.7) 04/29/23 02:20 Albumin 3.9 g/dL (3.5-5.2) 04/29/23 02:20 Globulin 3.3 g/dL (1.3-4.6) 04/29/23 02:20 XR interpretation done by ED provider, pending radiology final review Discharge Plan Discharge Patient Disposition: Admitted As Inpatient Clinical Impression: COVID-19, Acute respiratory failure with hypoxemia, Acute kidney injury superimposed on CKD Condition: Stable Coding Level of Care Code ED Billet Header for Dominick Baca
[2023-04-29 02:25] LABS: Basophils % 0.5 %; Eosinophils # 0.2 10^3/uL (0.0-0.8); Eosinophils % 1.9 %; Hematocrit 29.7 % (36-47); Lymphocytes # 0.8 10^3/uL (0.8-4.8); Lymphocytes % 9.7 %; Mean Corpuscular HGB Conc 30.6 g/dL (30-55); Mean Corpuscular Hemoglobin 31.1 pg (27-33); Mean Corpuscular Volume 101.4 fl (85-98); Mean Platelet Volume 10.3 fL (7.4-10.4); Monocytes # 0.8 10^3/uL (0.2-0.9); Monocytes % 8.8 %; Neutrophils # 6.69 10^3/uL (1.8-7.7); Neutrophils % 78.5 %; Nucleated Red Blood Cells % 0 %; Platelet Count 191 10^3/cmm (157-399); Red Blood Count 2.93 10^6/uL (3.85-5.65); Red Cell Distribution Width 17.8 % (12.1-15.1); White Blood Count 8.52 10^3/uL (3.29-11.43)
--- NOTE | 2023-04-29 02:28 | ECG_ITS ---
[facility] Test Date: 2023-04-29 Pat Name: Meghna Chaudhari Department: Room: Gender: Female City Assessor: : 1945 Requested By: Kevin Champion Order Number: [id number] Sara MD: Gabino Feng M.D. Measurements Intervals [place] Rate: 69 P: 75 [place]: 197 QRS: -4 QRSD: 94 T: 38 QT: 415 QTc: 445 Interpretive Statements SINUS RHYTHM MINIMAL VOLTAGE CRITERIA FOR LVH, CONSIDER NORMAL VARIANT [MEETS CRITERIA IN ONE OF: R(aVL), S(V1), R(V5), R(V5/V6)+S(V1)] Compared to ECG 08/25/2022 23:15:19 No significant changes Electronically Signed On 04-29-2023 10:18:36 PHOTOLITH OPERATOR by Gabino Feng M.D. [email or web address]
[2023-04-29] MEDS: methylPREDNISolone sod succ 125 mg/2 mL INJ IV (02:30)
[2023-04-29 02:56] LABS: Alanine Aminotransferase < 5 U/L (0-33); Albumin Level 3.9 g/dL (3.5-5.2); Alkaline Phosphatase 104 U/L (35-105); Aspartate Amino Transferase 14 U/L (0-32); Blood Urea Nitrogen 49 mg/dL (8-23); Calcium 8.7 mg/dL (8.5-10.5); Carbon Dioxide 31 mmol/L (22-29); Chloride 97 mmol/L (98-107); Globulin 3.3 g/dL (1.3-4.6); Glucose 102 mg/dL (65-115); NT Pro B Type Natriuretic Pept 23702 pg/mL (0-450); Osmolality Calculated 303 mOsm/kg (285-295); Sodium 140 mmol/L (136-145); Total Bilirubin 0.8 mg/dL (0.15-1.2); Total Protein 7.2 g/dL (6.6-8.7)
[2023-04-29 02:57] LABS: Anion Gap 16.5 (5-19); Potassium 4.5 mmol/L (3.5-5.1)
--- NOTE | 2023-04-29 04:37 | P.HP_ITS ---
Providers/Chief Complaint 2 Admitting Physician: Suzy Morgan MD Primary Care Provider: Brandi Escalera MD Chief Complaint: Covid + History of Present Illness Meghna Chaudhari is a 78 year old female with CKD on HD, history of atrial fibrillation, history of 2 pulmonary embolisms, not on anticoagulation due to ??anemia, h/o NSTEMI s/p stenting to RCA Apr 2022, h/o MRSA pneumonia and bacteremia in 03/2022 Sent to the ER from [place] due to a diagnosis of COVID 19 tested yesterday and 02 requirement at 3 lpm at [facility]. She reports cough, sputum production and dyspnea since her diagnosis. Intermittent low grade fever + Review of Systems 2 General: Reports: 10 or more systems reviewed and unremarkable except in HPI and below Const: Denies: fever(s), chills or body aches Eyes: Denies: change in vision, blurry vision or photophobia ENMT: Reports: hoarseness; Denies: throat pain, enlarged tonsils, odynophagia or nasal congestion Card: Denies: chest pain, palpitations, irregular heart rhythm, edema, swelling of feet/ankles, lightheadedness, pre-syncope, dyspnea on exertion or orthopnea Resp: Denies: dyspnea, productive cough, non-productive cough, wheezing, stridor, pain on inspiration, change in phlegm color, hemoptysis or chest congestion GI: Denies: abdominal pain, nausea, vomiting, hematemesis, coffee ground emesis, dysphagia, heartburn, diarrhea, constipation, GI cramping, change in stool character, hematochezia or melena : Denies: flank pain, difficulty voiding, dysuria, urinary frequency, urinary urgency, urinary hesitancy or hematuria Musc: Denies: neck pain, back pain, extremity pain, joint swelling, joint warmth or deformity Neuro: Denies: headache(s), numbness in extremities, weakness in extremities, sensory changes, difficulty walking, frequent falls, dizziness, vertigo, behavioral changes, Slurred speech present or seizure-like activity Psych: Denies: anxiety, depression, suicidal ideation or homicidal ideation Endo: Denies: polyuria, polydipsia, tired all the time, cold intolerance or hot flashes Tank/Lymph: Denies: easy bruising or easy bleeding Medications/Allergies Home Medications Medication Instructions Recorded Confirmed Last Taken Type albuterol sulfate 90 mcg/actuation 2 puff inhalation Q6H PRN Wheezing 04/07/22 03/09/23 Unknown History aerosol inhaler (ProAir HFA) benzonatate 100 mg capsule 100 mg PO Q8H PRN Cough 04/07/22 03/09/23 Unknown History bimatoprost 0.01 % eye drops 1 drp ophthalmic (eye) BEDTIME 04/07/22 03/09/23 08/09/22 History (Lumigan) budesonide 0.5 mg/2 mL suspension 0.5 mg inhalation Q12H 04/07/22 03/09/23 06/25/22 History for nebulization carbidopa 25 mg-levodopa 100 mg 2 tab PO TID 04/07/22 03/09/23 08/10/22 History tablet cholecalciferol (vitamin D3) 50 6,000 unit PO DAILY 04/07/22 03/09/23 08/09/22 History mcg (2,000 unit) capsule (Vitamin D3) clonidine HCl 0.3 mg tablet 0.3 mg PO Q8H PRN systolic bp >160 04/07/22 03/09/23 Unknown History cyclobenzaprine 5 mg tablet 5 mg PO Q8H PRN Muscle Spasm 04/07/22 03/09/23 06/26/22 History fluticasone propionate 115 2 puff inhalation BID 04/07/22 03/09/23 08/09/22 History mcg-salmeterol 21 mcg/actuation HFA inhaler (Advair HFA) furosemide 40 mg tablet (Lasix) 40 mg PO BID 04/07/22 03/09/23 08/09/22 History hydroxyzine HCl 25 mg tablet 25 mg PO Q8H PRN Itching 04/07/22 03/09/23 Unknown History hydroxyzine pamoate 25 mg capsule 25 mg PO BEDTIME 04/07/22 03/09/23 08/09/22 History insulin aspart U-100 100 unit/mL See Rx Instructions .Route .COMPLEX 04/07/22 03/09/23 08/09/22 20:00 History (3 mL) subcutaneous pen (Novolog FlexPen U-100 Insulin aspart) insulin glargine 100 unit/mL (3 40 unit SUBCUT DAILY@06 04/07/22 03/09/23 08/09/22 20:00 History mL) subcutaneous pen (Lantus Solostar U-100 Insulin) ipratropium 0.5 mg-albuterol 3 mg 3 ml inhalation Q6H PRN Cough 04/07/22 03/09/23 Unknown History (2.5 mg base)/3 mL nebulization soln loperamide 2 mg tablet (Imodium 2 mg PO Q6H PRN Loose Stool 04/07/22 03/09/23 06/26/22 History A-D) menthol 4 % topical gel (Biofreeze See Rx Instructions .Route .COMPLEX 04/07/22 03/09/23 Unknown History (menthol)) metolazone 5 mg tablet 5 mg PO QAM 04/07/22 03/09/23 08/09/22 History metoprolol tartrate 100 mg tablet 100 mg PO BID 04/07/22 03/09/23 08/10/22 06:30 History mirtazapine 30 mg tablet 30 mg PO BEDTIME@04/07/22 03/09/23 08/09/22 History ondansetron HCl 4 mg tablet 4 mg PO Q8H PRN Nausea And Vomiting 04/07/22 03/09/23 Unknown History promethazine-DM 6.25 mg-15 mg/5 mL 5 ml PO Q4H PRN Cough 04/07/22 03/09/23 Unknown History oral syrup ropinirole 0.5 mg tablet 0.5 mg PO QPM 04/07/22 03/09/23 08/09/22 History sertraline 50 mg tablet 50 mg PO DAILY 04/07/22 03/09/23 08/09/22 History simvastatin 40 mg tablet 40 mg PO BEDTIME@21 04/07/22 03/09/23 08/09/22 History solifenacin 5 mg tablet 5 mg PO QAM 04/07/22 03/09/23 08/09/22 History thyroid (pork) 90 mg tablet 90 mg PO DAILY 04/07/22 03/09/23 08/10/22 History (Stokes Thyroid) vitamin B complex and vitamin C 1 cap PO QPM 04/07/22 03/09/23 08/09/22 History no.20-folic acid 1 mg capsule (Renal Caps) aspirin 81 mg tablet,delayed 81 mg PO DAILY #30 tabs 05/17/22 03/09/23 08/09/22 Rx release temazepam 7.5 mg capsule 7.5 mg PO BEDTIME 06/26/22 03/09/23 08/08/22 History acetaminophen 500 mg tablet 1,000 mg (2 x 500 mg) PO Q8H PRN 07/02/22 03/09/23 08/10/22 Rx Pain #30 tabs gabapentin 100 mg capsule 200 mg (2 x 100 mg) PO TID #30 caps 07/02/22 03/09/23 08/09/22 Rx bisacodyl 10 mg rectal suppository 10 mg MA DAILY PRN Constipation 07/14/22 03/09/23 Unknown History bisacodyl 5 mg tablet,delayed 10 mg PO DAILY PRN Constipation 07/14/22 03/09/23 08/07/22 History release (Dulcolax (bisacodyl)) honey 100 % topical paste 1 applic topical DAILY 07/14/22 03/09/23 08/09/22 History (MediHoney (honey)) loratadine 10 mg tablet (Claritin) 10 mg PO DAILY 07/14/22 03/09/23 08/09/22 History oxycodone 5 mg tablet 10 mg PO Q4H PRN Pain 07/14/22 03/09/23 08/09/22 19:00 History sodium phosphates 19 gram-7 118 ml MA DAILY PRN Constipation 07/14/22 03/09/23 Unknown History gram/118 mL enema (Fleet Enema) cephalexin 500 mg capsule See Rx Instructions .Route 07/15/22 03/09/23 08/09/22 Rx .COMPLEX #5 caps fentanyl 75 mcg/hr transdermal 1 patch transdermal Q72H #5 ea 08/26/22 03/09/23 Unknown Rx patch mupirocin 2 % topical ointment 1 applic topical BID #22 grams 08/26/22 03/09/23 Unknown 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 11/21/22 03/09/23 Unknown Rx Allergies Allergy/AdvReac Type Severity Reaction Status Date / Time sulfamethoxazole Allergy Rash Verified 03/09/23 14:52 [From Septra] trimethoprim [From Septra] Allergy Rash Verified 03/09/23 14:52 pregabalin [From Lyrica] AdvReac Loopy/Unste Verified 03/09/23 14:52 anoop PFSH Acute 2 PFSH: Medical History CAD (coronary artery disease) Pulmonary hypertension Elevated troponin Goals of care, counseling/discussion History of pulmonary embolism Chest pain 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 Charcot's joint of left foot MRSA bacteremia ESRD (end stage renal disease) ESRD (end stage renal disease) Chronic kidney disease Hyponatremia Influenza A Pneumonia Iron deficiency anemia Acute exacerbation of CHF (congestive heart failure) Bilateral lower extremity edema Neuropathy Chronic renal insufficiency Post laminectomy syndrome Lumbar disc disease with radiculopathy Sciatica associated with disorder of lumbosacral spine Uncontrolled insulin dependent diabetes mellitus Diabetes mellitus type 2, insulin dependent COPD (chronic obstructive pulmonary disease) Hyperlipemia Vitamin D deficiency Parkinson disease Chronic insomnia Stage 4 chronic renal impairment associated with type 2 diabetes mellitus History of CVA (cerebrovascular accident) Anemia in chronic illness Hypertension Fibromyalgia Diabetic neuropathy Hypothyroidism Surgical History S/P dialysis catheter insertion History of colonoscopy 2019 Hx of hysterectomy Hx of cholecystectomy Hx of foot surgery Family History Father CAD (coronary artery disease) Mother CAD (coronary artery disease) Diabetes Grandfather CAD (coronary artery disease) Diabetes Social History Smoking and tobacco/nicotine status: former use of tobacco/nicotine Second hand smoke exposure: No Alcohol intake: current Alcohol intake frequency: holidays/special occasions only Alcohol type: hard liquor Substance/Drug Use: never Vitals/I&O/Wt Last Vital Signs Temp 99.2 F 04/29/23 02:03 Pulse 71 04/29/23 03:28 Resp 20 H 04/29/23 03:28 BP 144/45 04/29/23 03:28 Pulse Ox 92 04/29/23 03:28 O2 Del Method Nasal Cannula 04/29/23 03:59 O2 Flow Rate 2 04/29/23 03:28 Weight last 48 hrs Weight 121.563 kg Weight 119.748 kg Physical Exam 2 Narrative: General: No acute distress, AO x3 HEENT: PERRLA, pupils bilaterally equal and reactive, pallors not present Chest: Normal vesicular breath sounds, no added sounds, equal good air entry bilaterally CVS: S1-S2 regular, no murmurs, no tachycardia, no gallops, no rubs Abdomen: Soft, nontender, no organomegaly, bowel sounds present Neuro: No focal deficits, no facial deformity, AO x3, power 5/5 in all limbs Data 04/29/23 02:20 04/29/23 02:20 Other data: Radiology Impressions Chest X-Ray 04/29/23 02:06 IMPRESSION: No acute cardiopulmonary disease. Laboratory Results WBC 8.52 10^3/uL (3.29-11.43) 04/29/23 02:20 RBC 2.93 10^6/uL (3.85-5.65) L 04/29/23 02:20 Hgb 9.10 g/dL (11.27-16.99) L 04/29/23 02:20 Hct 29.7 % (36-47) L 04/29/23 02:20 MCV 101.4 fl (85-98) H 04/29/23 02:20 MCH 31.1 pg (27-33) 04/29/23 02:20 MCHC 30.6 g/dL (30-55) 04/29/23 02:20 RDW 17.8 % (12.1-15.1) H 04/29/23 02:20 Plt Count 191 10^3/cmm (157-399) 04/29/23 02:20 MPV 10.3 fL (7.4-10.4) 04/29/23 02:20 Neut % (Auto) 78.5 % 04/29/23 02:20 Lymph % (Auto) 9.7 % 04/29/23 02:20 Crook % (Auto) 8.8 % 04/29/23 02:20 Eos % (Auto) 1.9 % 04/29/23 02:20 Baso % (Auto) 0.5 % 04/29/23 02:20 Neut # (Auto) 6.69 10^3/uL (1.8-7.7) 04/29/23 02:20 Lymph # (Auto) 0.8 10^3/uL (0.8-4.8) 04/29/23 02:20 Crook # (Auto) 0.8 10^3/uL (0.2-0.9) 04/29/23 02:20 Eos # (Auto) 0.2 10^3/uL (0.0-0.8) 04/29/23 02:20 Baso # (Auto) 0.0 10^3/uL (0.0-0.1) 04/29/23 02:20 Nucleated RBC % (auto) 0 % 04/29/23 02:20 Nucleated RBCs # 0.0 /100WBC 04/29/23 02:20 D-Dimer 2.48 ug/mLFEU (0-0.59) H 04/29/23 02:22 Sodium 140 mmol/L (136-145) 04/29/23 02:20 Potassium 4.5 mmol/L (3.5-5.1) 04/29/23 02:20 Chloride 97 mmol/L (98-107) L 04/29/23 02:20 Carbon Dioxide 31 mmol/L (22-29) H 04/29/23 02:20 Anion Gap 16.5 (5-19) 04/29/23 02:20 BUN 49 mg/dL (8-23) H 04/29/23 02:20 Creatinine 5.1 mg/dL (0.5-0.9) H 04/29/23 02:20 GFR Calculation Not Reportable 04/29/23 02:20 Glucose 102 mg/dL (65-115) 04/29/23 02:20 Calculated Osmolality 303 mOsm/kg (285-295) H 04/29/23 02:20 Calcium 8.7 mg/dL (8.5-10.5) 04/29/23 02:20 Total Bilirubin 0.8 mg/dL (0.15-1.2) 04/29/23 02:20 AST 14 U/L (0-32) 04/29/23 02:20 ALT < 5 U/L (0-33) 04/29/23 02:20 Alkaline Phosphatase 104 U/L (35-105) 04/29/23 02:20 Troponin T 5th Gen ng/L 36 ng/L (0-10) H 04/29/23 02:20 NT-Pro-B Natriuret Pep 98863 pg/mL (0-450) H 04/29/23 02:20 Total Protein 7.2 g/dL (6.6-8.7) 04/29/23 02:20 Albumin 3.9 g/dL (3.5-5.2) 04/29/23 02:20 Globulin 3.3 g/dL (1.3-4.6) 04/29/23 02:20 A&P Assessment and plan (1) COVID-19: (2) ESRD on hemodialysis: (3) Hypoxia: (4) Acute respiratory failure with hypoxemia: Plan 78-year-old lady halfway resident presenting with diagnosis of COVID-19 and hypoxia noted at the halfway. Admit to MedSurg Remdisivir 200mg iv x 1 followed by 100mg iv daily dexamethasone 6mg IVP daily duoneb q6h, budesonide q12h No consolidation noted on chest x-ray Flutter valve/spirometer at bedside trend inflammatory markers including CRP CTA PE to evalaute for PE given new hypoxemia and past history of multiple PEs, not currently on anticoagulation. Complaining of intermittent chest discomfort, check EKG and troponin series End-stage kidney disease on maintenance hemodialysis, consult nephrology to maintain hemodialysis schedule while inpatient. Insulin sliding scale for diabetes mellitus Hold home antihypertensives due to soft blood pressure currently Continue home dose of carbidopa levodopa All medications need to be confirmed and reconciled. Check Blood culture given past h/o MRSA bacteremia and complicated pneumonias DVT prophylaxis: Heparin 5000 q12h Attestations 2 Medical Necessity Statement*: > 2 midnight admission is anticipated for above defined care Coding Level of Care Code Acute Code for [facility] Fwd Diagnoses COVID-19 U07.1 ESRD on hemodialysis N18.6; Z99.2 Hypoxia R09.02 Acute respiratory failure with hypoxemia J96.01
[2023-04-29 05:19] LABS: D Dimer 2.48 ug/mLFEU (0-0.59)
[2023-04-29 05:20] LABS: Troponin T (5th) Once 36 ng/L (0-10)
--- NOTE | 2023-04-29 05:33 | CTR_ITS ---
PROCEDURE INFORMATION: Exam: CTA Chest With Contrast Exam date and time: 04/29/2023 4:43 PM Age: 78 years old Clinical indication: Shortness of breath; Additional info: Evaluate for pe TECHNIQUE: Imaging protocol: Computed tomographic angiography of the chest with contrast. Exam focused on the arteries. 3D rendering (Not supervised by radiologist): MIP and/or 3D reconstructed images were created by the technologist. Radiation optimization: All CT scans at this facility use at least one of these dose optimization techniques: automated exposure control; mA and/or kV adjustment per patient size (includes targeted exams where dose is matched to clinical indication); or iterative reconstruction. Contrast material: OMNI 350; Contrast volume: 81 ml; Contrast route: INTRAVENOUS (IV); REPORTING DATA: Count of CT and Cardiac NM exams in prior 12 months: This patient has received 4 known CTs and 0 known cardiac nuclear medicine studies in the 12 months prior to the current study. COMPARISON: CT angio chest [id number] 05/13/2022 9:16 PM RADIATION DOSE METRICS: Total DLP (mGy-cm): 484.85 FINDINGS: Pulmonary arteries: No central or segmental pulmonary emboli. 3.5 cm diameter of the main pulmonary trunk. Pulmonary vascular congestion. Aorta: No aortic aneurysm or dissection. Lungs: No focal consolidation. Basilar/dependent atelectasis. Pleural spaces: No pneumothorax. No pleural effusion. Heart: No pericardial effusion. Lymph nodes: No enlarged lymph nodes. Bones/joints: No acute findings. Soft tissues: Similar esophageal wall thickening diffusely. CT/CT angio chest PE protcl [id number] IMPRESSION: No pulmonary embolism or focal lung consolidation. Dilated main pulmonary trunk and pulmonary vascular congestion.
[2023-04-29] MEDS: dexamethasone 4 mg/mL INJ 6 MG IVP (06:04)
[2023-04-29] MEDS: heparin 5,000 unit/mL INJ 1 mL 5000 UNIT SUBCUT ×2 (06:04→17:14)
[2023-04-29 06:43] LABS: Glucose Point of Care 223 mg/dL (70-110)
[2023-04-29] MEDS: remdesivir 200 MG in sodium chloride 0.9% (100 ml) 100 ML 100 MG IV (07:22)
[2023-04-29] MEDS: insulin lispro 100 unit/1 mL SUBCUT ×4 (08:37→22:57)
[2023-04-29] MEDS: pantoprazole DR 40 mg Tablet PO (08:38)
[2023-04-29] MEDS: carbidopa-levodopa 25-100mg Tablet 2 EACH PO ×3 (08:38→22:56)
[2023-04-29] MEDS: aspirin 81 mg EC Tablet PO (08:38)
[2023-04-29] MEDS: budesonide 0.5 mg/2 mL Neb INHALATION ×2 (08:44→20:42)
[2023-04-29] MEDS: ipratropium-albuterol 3 mL Neb INHALATION ×3 (08:44→20:42)
[2023-04-29] MEDS: oxyCODONE 5 mg IR Tab/Cap 10 MG PO ×3 (08:45→18:21)
[2023-04-29 11:28] LABS: Glucose Point of Care 349 mg/dL (70-110)
--- NOTE | 2023-04-29 12:19 | PM.PN ---
Subjective Subjective: States she has been feeling miserable, aching all over. Having hacking bothersome nonproductive cough. No nausea vomiting or diarrhea. No headache. Vitals/I&O/Wt Last Vital Signs Temp 97.9 F 04/29/23 12:03 Pulse 119 H 04/29/23 12:03 Resp 19 H 04/29/23 12:03 BP 120/62 04/29/23 12:03 Pulse Ox 92 04/29/23 12:03 O2 Del Method Nasal Cannula 04/29/23 12:03 O2 Flow Rate 2 04/29/23 08:00 04/28/23 04/29/23 04/29/23 22:59 06:59 14:59 Intake Total 0 / 0 580 / 580 Balance 0 / 0 580 / 580 Weight last 48 hrs Weight 121.563 kg Weight 121.563 kg Weight 119.748 kg Physical Exam Const: COMMON NORMALS: patient oriented x3 and alert GENERAL APPEARANCE: cooperative NUTRITIONAL APPEARANCE: obese ORIENTATION/CONSCIOUSNESS: Yes awake HENMT: COMMON NORMALS: oropharynx normal Neck/C-Spine: COMMON NORMALS: no JVD Resp: COMMON NORMALS: normal respiratory effort AUSCULTATION: wheezes and diminished lung sounds Cardio: COMMON NORMALS: no JVD, regular rhythm, S1 normal heart sound present, S2 normal heart sound present and No murmurs present (Cardio) RHYTHM: regular rhythm HEART SOUNDS: S1 normal heart sound present and S2 normal heart sound present GI: COMMON NORMALS: Normal to inspection, nondistended, normoactive bowel sounds present, Soft to palpation and non-tender PALPATION: Yes Soft to palpation Extremity: COMMON NORMALS: no joint enlargement and no pedal edema NARRATIVE EXTREMITY EXAM: L BKA OTHER: Left arm fistula Neuro: COMMON NORMALS: patient oriented x3 and moves all extremities SENSORIUM/ORIENTATION: Yes alert Skin: COMMON NORMALS: no rashes or lesions noted GENERAL SKIN EXAM: no rashes or lesions noted Data 04/29/23 02:20 04/29/23 02:20 A&P Assessment and plan (1) COVID-19: (2) ESRD on hemodialysis: (3) Hypoxia: (4) Acute respiratory failure with hypoxemia: Plan 78-year-old lady group home resident presenting with diagnosis of COVID-19 and hypoxia noted at the group home. Severe COVID-19, continue Decadron, remdesivir, dry hacking cough, will schedule Tessalon. Continue DVT prophylaxis with heparin. Reviewed vitals, CBC, D-dimer, CMP. Follow-up labs CBC, CMP. Follow-up D-dimer requested. No consolidation noted on chest x-ray Risk of hyperglycemia, hypertension with dexamethasone. Reviewed glucose, noted hyperglycemia. Sliding scale insulin as ordered. Change diet to consist carbohydrate. Pending CTA PE to evalaute for PE given new hypoxemia and past history of multiple PEs, not currently on anticoagulation. Complaining of intermittent chest discomfort, reviewed troponin, EKG. Not suggestive of acute [place] on my interpretation. End-stage kidney disease on maintenance hemodialysis, nephrology is consulted. Insulin sliding scale for diabetes mellitus Hold home antihypertensives due to soft blood pressure currently Continue home dose of carbidopa levodopa All medications need to be confirmed and reconciled. Check Blood culture given past h/o MRSA bacteremia and complicated pneumonias DVT prophylaxis: Heparin 5000 q12h Attestations Medical Necessity Statement*: Continue admission for assessment management of severe COVID-19 and lady with ESRD on the risks of severe disease. Diagnoses COVID-19 U07.1 ESRD on hemodialysis N18.6; Z99.2 Hypoxia R09.02 Acute respiratory failure with hypoxemia J96.01
[2023-04-29] MEDS: benzonatate 100 mg Capsule PO ×2 (15:10→22:57)
[2023-04-29 16:21] LABS: Glucose Point of Care 296 mg/dL (70-110)
[2023-04-29] MEDS: iohexol 350 mg/mL 500 mL Btl (per mL) IV (16:49)
[2023-04-29] MEDS: insulin glargine 100 units/1 mL 40 UNIT SUBCUT (17:14)
[2023-04-29 21:39] LABS: Glucose Point of Care 196 mg/dL (70-110)
--- NOTE | 2023-04-29 21:51 | P.CONIM_ITS ---
Providers/Reason For Consult 2 Consulting Physician/Specialty*: [facility]/Nephrology Reason for Consult*: ESRD Attending Physician: Prince Yoon Primary Care Provider: Brandi Escalera MD History of Present Illness History of Present Illness Meghna Chaudhari is a 78 year old female ESRD on HD, atrial fibrillation, PEs , h/o NSTEMI s/p stenting to RCA Apr 2022, h/o MRSA pneumonia and bacteremia in 03/2022 Sent to the ER from [place] due to a diagnosis of COVID 19. CTA showed no PE . Review of Systems 2 Narrative: negative Medications/Allergies Home Medications Medication Instructions Recorded Confirmed Last Taken Type benzonatate 100 mg capsule 100 mg PO Q8H PRN Cough 04/07/22 04/29/23 12/11/22 History bimatoprost 0.01 % eye drops 1 drp ophthalmic (eye) BEDTIME 04/07/22 04/29/23 04/28/23 History (Pepe) carbidopa 25 mg-levodopa 100 mg See Rx Instructions .Route .COMPLEX 04/07/22 04/29/23 04/28/23 History tablet cholecalciferol (vitamin D3) 50 6,000 unit PO DAILY 04/07/22 04/29/23 04/28/23 History mcg (2,000 unit) capsule (Vitamin D3) clonidine HCl 0.3 mg tablet 0.3 mg PO Q8H PRN systolic bp >160 04/07/22 04/29/23 04/05/23 History cyclobenzaprine 5 mg tablet 5 mg PO Q8H PRN Muscle Spasm 04/07/22 04/29/23 04/28/23 History fluticasone propionate 115 2 puff inhalation BID 04/07/22 04/29/23 04/28/23 History mcg-salmeterol 21 mcg/actuation HFA inhaler (Advair HFA) furosemide 40 mg tablet (Lasix) 40 mg PO BID 04/07/22 04/29/23 04/28/23 History hydroxyzine pamoate 25 mg capsule 25 mg PO BEDTIME 04/07/22 04/29/23 04/28/23 History insulin aspart U-100 100 unit/mL See Rx Instructions .Route .COMPLEX 04/07/22 04/29/23 04/28/23 History (3 mL) subcutaneous pen (Novolog FlexPen U-100 Insulin aspart) insulin glargine 100 unit/mL (3 40 unit SUBCUT DAILY@06 04/07/22 04/29/23 04/28/23 History mL) subcutaneous pen (Lantus Solostar U-100 Insulin) loperamide 2 mg tablet (Imodium 2 mg PO Q6H PRN Loose Stool 04/07/22 04/29/23 01/30/23 History A-D) menthol 4 % topical gel (Biofreeze See Rx Instructions .Route .COMPLEX 04/07/22 04/29/23 11/25/22 History (menthol)) metolazone 5 mg tablet 5 mg PO QAM 04/07/22 04/29/23 04/28/23 History metoprolol tartrate 100 mg tablet 100 mg PO BID 04/07/22 04/29/23 04/28/23 History mirtazapine 30 mg tablet 30 mg PO BEDTIME@21 04/07/22 04/29/23 04/28/23 History ondansetron HCl 4 mg tablet 4 mg PO Q6H PRN Nausea And Vomiting 04/07/22 04/29/23 03/02/23 History promethazine-DM 6.25 mg-15 mg/5 mL 5 ml PO Q4H PRN Cough 04/07/22 04/29/23 02/08/23 History oral syrup ropinirole 0.5 mg tablet 0.5 mg PO BEDTIME 04/07/22 04/29/23 04/28/23 History simvastatin 40 mg tablet 40 mg PO BEDTIME@21 04/07/22 04/29/23 04/28/23 History solifenacin 5 mg tablet 5 mg PO QAM 04/07/22 04/29/23 04/28/23 History vitamin B complex and vitamin C 1 cap PO QPM 04/07/22 04/29/23 04/28/23 History no.20-folic acid 1 mg capsule (Renal Caps) acetaminophen 500 mg tablet 1,000 mg (2 x 500 mg) PO Q8H PRN 07/02/22 04/29/23 04/27/23 Rx Pain #30 tabs gabapentin 100 mg capsule 200 mg (2 x 100 mg) PO TID #30 caps 07/02/22 04/29/23 04/28/23 Rx bisacodyl 10 mg rectal suppository 10 mg [place] DAILY PRN Constipation 07/14/22 04/29/23 02/04/23 History bisacodyl 5 mg tablet,delayed 10 mg PO DAILY PRN Constipation 07/14/22 04/29/23 12/10/22 History release (Dulcolax (bisacodyl)) loratadine 10 mg tablet (Claritin) 10 mg PO DAILY 07/14/22 04/29/23 04/28/23 History fentanyl 75 mcg/hr transdermal 1 patch transdermal Q72H #5 ea 08/26/22 04/29/23 04/28/23 Rx patch [employer] #1 ea 11/21/22 04/29/23 Unknown Rx albuterol sulfate 2.5 mg/3 mL 2.5 mg inhalation Q4H 04/29/23 04/29/23 04/29/23 History (0.083 %) solution for nebulization alprazolam 0.5 mg tablet (Xanax) 0.5 mg PO TID PRN Anxiety 04/29/23 04/29/23 Unknown History diphenhydramine HCl 25 mg capsule 25 mg PO DAILY PRN Itching 04/29/23 04/29/23 04/25/23 History (Benadryl) docusate sodium 100 mg capsule 100 mg PO DAILY 04/29/23 04/29/23 04/28/23 History (Colace) hydrocodone 10 mg-acetaminophen See Rx Instructions .Route .COMPLEX 04/29/23 04/29/23 04/23/23 History 325 mg tablet levothyroxine 125 mcg tablet 125 mcg PO DAILY 04/29/23 04/29/23 04/28/23 History oxycodone 10 mg tablet 10 mg PO Q4H PRN Pain 04/29/23 04/29/23 04/28/23 History pantoprazole 40 mg tablet,delayed 40 mg PO BID 04/29/23 04/29/23 04/28/23 History release scopolamine base 1 mg over 3 days See Rx Instructions .Route .COMPLEX 04/29/23 04/29/23 04/28/23 History transdermal patch (Transderm-Scop) sertraline 100 mg tablet 100 mg PO DAILY 04/29/23 04/29/23 04/28/23 History sevelamer carbonate 800 mg tablet 1,600 mg PO TID 04/29/23 04/29/23 04/28/23 History (Renvela) sucralfate 1 gram tablet 1 g PO BID 04/29/23 04/29/23 04/28/23 History temazepam 15 mg capsule 15 mg PO BEDTIME 04/29/23 04/29/23 04/28/23 History vitamin A and D See Rx Instructions .Route .COMPLEX 04/29/23 04/29/23 04/28/23 History Allergies Allergy/AdvReac Type Severity Reaction Status Date / Time sulfamethoxazole Allergy Rash Verified 03/09/23 14:52 [From Septra] trimethoprim [From Septra] Allergy Rash Verified 03/09/23 14:52 pregabalin [From Lyrica] AdvReac Loopy/Unste Verified 03/09/23 14:52 anoop Current Medications Generic Name Dose Route Start Last Admin Trade Name Freq PRN Reason Stop Dose Admin Albuterol/Ipratropium 3 ml 04/29/23 08:00 04/29/23 20:42 Ipratropium-Albuterol 3 Ml Neb INHALATION 3 ml Q6H.RESP BILLIE Administration Aspirin 81 mg 04/29/23 09:00 04/29/23 08:38 Aspirin 81 Mg Ec Tablet PO 81 mg DAILY BILLIE Administration Benzonatate 100 mg 04/29/23 15:00 04/29/23 15:10 Benzonatate 100 Mg Capsule PO 100 mg TID BILLIE Administration Budesonide 0.5 mg 04/29/23 08:00 04/29/23 20:42 Budesonide 0.5 Mg/2 Ml Neb INHALATION 0.5 mg BID.RESPIRATORY BILLIE Administration Carbidopa/Levodopa 2 each 04/29/23 09:00 04/29/23 15:10 Carbidopa-Levodopa 25-100mg Tablet PO 2 each TID BILLIE Administration Dexamethasone 6 mg 04/29/23 04:30 04/29/23 06:04 Dexamethasone 4 Mg/Ml Inj IVP 6 mg Q24H BILLIE Administration Heparin Sodium (Porcine) 5,000 unit 04/29/23 05:45 04/29/23 17:14 Heparin 5,000 Unit/Ml Inj 1 Ml SUBCUT 5,000 unit Q12H BILLIE Administration Insulin Glargine 40 unit 04/29/23 16:35 04/29/23 17:14 Insulin Glargine 100 Units/1 Ml SUBCUT 40 unit DAILY BILLIE Administration Insulin Human Lispro 0 unit 04/29/23 08:00 04/29/23 17:14 Insulin Lispro 100 Unit/1 Ml SUBCUT 8 unit WM&BEDTIME BILLIE Administration Protocol Oxycodone HCl 10 mg 04/29/23 04:36 04/29/23 18:21 Oxycodone 5 Mg Ir Tab/Cap PO 10 mg Q4H PRN Administration Pain Pantoprazole Sodium 40 mg 04/29/23 09:00 04/29/23 08:[address] 40 Mg Tablet PO 40 mg DAILY BILLIE Administration PFSH Acute 2 PFSH: Medical History CAD (coronary artery disease) Pulmonary hypertension Elevated troponin Goals of care, counseling/discussion History of pulmonary embolism Chest pain 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 Charcot's joint of left foot MRSA bacteremia ESRD (end stage renal disease) ESRD (end stage renal disease) Chronic kidney disease Hyponatremia Influenza A Pneumonia Iron deficiency anemia Acute exacerbation of CHF (congestive heart failure) Bilateral lower extremity edema Neuropathy Chronic renal insufficiency Post laminectomy syndrome Lumbar disc disease with radiculopathy Sciatica associated with disorder of lumbosacral spine Uncontrolled insulin dependent diabetes mellitus Diabetes mellitus type 2, insulin dependent COPD (chronic obstructive pulmonary disease) Hyperlipemia Vitamin D deficiency Parkinson disease Chronic insomnia Stage 4 chronic renal impairment associated with type 2 diabetes mellitus History of CVA (cerebrovascular accident) Anemia in chronic illness Hypertension Fibromyalgia Diabetic neuropathy Hypothyroidism Surgical History S/P dialysis catheter insertion History of colonoscopy 2020 Hx of hysterectomy Hx of cholecystectomy Hx of foot surgery Family History Father CAD (coronary artery disease) Mother CAD (coronary artery disease) Diabetes Grandfather CAD (coronary artery disease) Diabetes Social History Smoking and tobacco/nicotine status: former use of tobacco/nicotine Second hand smoke exposure: No Alcohol intake: current Alcohol intake frequency: holidays/special occasions only Alcohol type: hard liquor Substance/Drug Use: never Vitals/I&O/Wt Last Vital Signs Temp 98.0 F 04/29/23 20:00 Pulse 74 04/29/23 20:42 Resp 16 04/29/23 20:42 BP 113/51 04/29/23 20:00 Pulse Ox 97 04/29/23 20:42 O2 Del Method Nasal Cannula 04/29/23 20:42 O2 Flow Rate 2 04/29/23 20:42 04/29/23 04/29/23 04/29/23 06:59 14:59 22:59 Intake Total 0 / 0 820 / 820 240 / 1060 Balance 0 / 0 820 / 820 240 / 1060 Weight last 48 hrs Weight 121.563 kg Weight 121.563 kg Weight 119.748 kg Physical Exam 2 Narrative: deferred Data 04/29/23 02:20 04/29/23 02:20 A&P Assessment and plan (1) ESRD on hemodialysis: (2) COVID-19: (3) Hypoxia: (4) Acute respiratory failure with hypoxemia: Plan 1. ESRD : on HD per MWF schedule , HD tomorrow 2. COVID pneumonia 3. Anemia , will give Epogen with hD 4. htn : BP meds on hold Consult Attestations 2 Medical Necessity Statement: per medicine Coding Level of Care Code Acute Code for [facility] Fwd Diagnoses ESRD on hemodialysis N18.6; Z99.2 COVID-19 U07.1 Hypoxia R09.02 Acute respiratory failure with hypoxemia J96.01
[2023-04-30] VITALS (15 sets, daily range): BP systolic 112–158; BP diastolic 61–74; PULSE 69–86; RESP 16–19; TEMP 36.5–36.8; O2SAT 94–100; BMI 42.0
[2023-04-30] MEDS: ipratropium-albuterol 3 mL Neb INHALATION ×3 (02:41→20:53)
[2023-04-30 04:03] LABS: Basophils % 0.2 %; Hematocrit 28.9 % (36-47); Lymphocytes # 0.7 10^3/uL (0.8-4.8); Lymphocytes % 14.5 %; Mean Corpuscular HGB Conc 29.4 g/dL (30-55); Mean Corpuscular Hemoglobin 30.7 pg (27-33); Mean Corpuscular Volume 104.3 fl (85-98); Mean Platelet Volume 10.8 fL (7.4-10.4); Monocytes # 0.7 10^3/uL (0.2-0.9); Monocytes % 14.7 %; Neutrophils # 3.32 10^3/uL (1.8-7.7); Neutrophils % 69.8 %; Nucleated Red Blood Cells % 0 %; Platelet Count 172 10^3/cmm (157-399); Red Blood Count 2.77 10^6/uL (3.85-5.65); Red Cell Distribution Width 17.8 % (12.1-15.1); White Blood Count 4.76 10^3/uL (3.29-11.43)
[2023-04-30 04:09] LABS: D Dimer 2.39 ug/mLFEU (0-0.59)
[2023-04-30 04:23] LABS: Alanine Aminotransferase < 5 U/L (0-33); Albumin Level 3.6 g/dL (3.5-5.2); Alkaline Phosphatase 103 U/L (35-105); Blood Urea Nitrogen 74 mg/dL (8-23); Calcium 7.8 mg/dL (8.5-10.5); Carbon Dioxide 22 mmol/L (22-29); Chloride 94 mmol/L (98-107); Globulin 3.5 g/dL (1.3-4.6); Glucose 198 mg/dL (65-115); Osmolality Calculated 313 mOsm/kg (285-295); Sodium 138 mmol/L (136-145); Total Bilirubin 0.4 mg/dL (0.15-1.2); Total Protein 7.1 g/dL (6.6-8.7)
[2023-04-30 04:27] LABS: C Reactive Protein 41.7 mg/L (0.0-4.9)
[2023-04-30 04:36] LABS: Anion Gap 27.5 (5-19); Aspartate Amino Transferase 25 U/L (0-32); Potassium 5.5 mmol/L (3.5-5.1)
[2023-04-30] MEDS: heparin 5,000 unit/mL INJ 1 mL 5000 UNIT SUBCUT ×2 (05:06→17:17)
[2023-04-30] MEDS: dexamethasone 4 mg/mL INJ 6 MG IVP (05:06)
[2023-04-30] MEDS: oxyCODONE 5 mg IR Tab/Cap 10 MG PO ×4 (05:07→20:55)
[2023-04-30 07:07] LABS: Glucose Point of Care 199 mg/dL (70-110)
[2023-04-30] MEDS: budesonide 0.5 mg/2 mL Neb INHALATION ×2 (08:06→20:53)
[2023-04-30] MEDS: pantoprazole DR 40 mg Tablet PO (08:37)
[2023-04-30] MEDS: carbidopa-levodopa 25-100mg Tablet 2 EACH PO ×3 (08:37→20:55)
[2023-04-30] MEDS: remdesivir 100 MG in sodium chloride 0.9% (100 ml) 100 ML IV (08:38)
[2023-04-30] MEDS: benzonatate 100 mg Capsule PO ×4 (08:38→20:55)
[2023-04-30] MEDS: aspirin 81 mg EC Tablet PO (08:38)
[2023-04-30] MEDS: insulin lispro 100 unit/1 mL SUBCUT ×2 (08:39→17:17)
[2023-04-30] MEDS: insulin glargine 100 units/1 mL 40 UNIT SUBCUT (08:39)
[2023-04-30 12:14] LABS: Glucose Point of Care 278 mg/dL (70-110)
[2023-04-30] MEDS: diphenhydrAMINE 50 mg/mL SDV 1mL 25 MG IVP (12:47)
[2023-04-30 16:48] LABS: Glucose Point of Care 209 mg/dL (70-110)
--- NOTE | 2023-04-30 20:45 | P.PN_ITS ---
Vitals/I&O/Wt Last Vital Signs Temp 97.9 F 04/30/23 16:56 Pulse 82 04/30/23 16:56 Resp 19 H 04/30/23 16:56 BP 156/70 04/30/23 16:56 Pulse Ox 100 04/30/23 16:56 O2 Del Method Nasal Cannula 04/30/23 16:56 O2 Flow Rate 2 04/30/23 08:00 04/30/23 04/30/23 04/30/23 06:59 14:59 22:59 Intake Total 120 / 1180 1271.667 / 1271.667 240 / 1511.667 Balance 120 / 1180 1271.667 / 1271.667 240 / 1511.667 Weight last 48 hrs Weight 121.563 kg Weight 121.563 kg Weight 121.563 kg Weight 119.748 kg Data 04/30/23 02:58 04/30/23 02:58 A&P Assessment and plan (1) ESRD on hemodialysis: (2) COVID-19: (3) Hypoxia: (4) Acute respiratory failure with hypoxemia: Plan 1. ESRD : on HD per MW schedule , HD today 2. COVID pneumonia 3. Anemia , will give Epogen with hD 4. htn : BP meds on hold Attestations 2 Medical Necessity Statement*: per stan Coding Level of Care Code Acute Code for [facility] Fwd Diagnoses ESRD on hemodialysis N18.6; Z99.2 COVID-19 U07.1 Hypoxia R09.02 Acute respiratory failure with hypoxemia J96.01
[2023-04-30 21:49] LABS: Glucose Point of Care 133 mg/dL (70-110)
--- NOTE | 2023-04-30 22:01 | P.PN_ITS ---
Subjective 2 Subjective: Itching with hemodialysis. Still having dry hacking cough spells. Reinforced with her asking for cough medicine. Vitals/I&O/Wt Last Vital Signs Temp 98.2 F 04/30/23 20:00 Pulse 74 04/30/23 20:50 Resp 16 04/30/23 20:55 BP 158/74 04/30/23 20:00 Pulse Ox 98 04/30/23 20:50 O2 Del Method Nasal Cannula 04/30/23 20:50 O2 Flow Rate 2 04/30/23 20:50 04/30/23 04/30/23 04/30/23 06:59 14:59 22:59 Intake Total 120 / 1180 1271.667 / 1271.667 240 / 1511.667 Balance 120 / 1180 1271.667 / 1271.667 240 / 1511.667 Weight last 48 hrs Weight 121.563 kg Weight 121.563 kg Weight 121.563 kg Weight 119.748 kg Physical Exam 2 Const: COMMON NORMALS: patient oriented x3 and alert GENERAL APPEARANCE: c ooperative NUTRITIONAL APPEARANCE: obese ORIENTATION/CONSCIOUSNESS: Yes awake HENMT: COMMON NORMALS: oropharynx normal Neck/C-Spine: COMMON NORMALS: no JVD Resp: COMMON NORMALS: normal respiratory effort AUSCULTATION: wheezes and diminished lung sounds Cardio: COMMON NORMALS: no JVD, regular rhythm, S1 normal heart sound present, S2 normal heart sound present and No murmurs present (Cardio) RHYTHM: regular rhythm HEART SOUNDS: S1 normal heart sound present and S2 normal heart sound present GI: COMMON NORMALS: Normal to inspection, nondistended, normoactive bowel sounds present, Soft to palpation and non-tender PALPATION: Yes Soft to palpation Extremity: COMMON NORMALS: no joint enlargement and no pedal edema N ARRATIVE EXTREMITY EXAM: L BKA OTHER: Left arm fistula Neuro: COMMON NORMALS: patient oriented x3 and moves all extremities S ENSORIUM/ORIENTATION: Yes alert Skin: COMMON NORMALS: no rashes or lesions noted GENERAL SKIN EXAM: no rashes or lesions noted Data 04/30/23 02:58 04/30/23 02:58 A&P Assessment and plan (1) COVID-19: (2) ESRD on hemodialysis: (3) Hypoxia: (4) Acute respiratory failure with hypoxemia: Plan 78-year-old lady snf resident presenting with diagnosis of COVID-19 and hypoxia noted at the snf. Continues with dry bothersome cough. Reinforced with her asking for cough medicine on top of the scheduled Tessalon if cough is still bothering her. Continues to require 2 L nasal cannula oxygen. Continue with Decadron, and a severe course. Heparin VTE prophylaxis. Continue oxygen support, wean down as tolerating. Reviewed vitals, CBC, D-dimer, CMP. Repeat chemistry, D-dimer, CBC. Risk of hyperglycemia, hypertension with dexamethasone. Reviewed Accu-Cheks, noted hyperglycemia is better. Sliding scale insulin as ordered. Continue consistent carbohydrate diet. Reviewed CTA PE to evalaute for PE given new hypoxemia and past history of multiple PEs, not currently on anticoagulation. No PE. Pulmonary vascular congestion. Undergoing hemodialysis. .Complaining of intermittent chest discomfort, troponin, EKG Not suggestive of acute [place] End-stage kidney disease on maintenance hemodialysis, nephrology is consulted. Insulin sliding scale for diabetes mellitus Hold home antihypertensives due to soft blood pressure currently Continue home dose of carbidopa levodopa All medications need to be confirmed and reconciled. Check Blood culture given past h/o MRSA bacteremia and complicated pneumonias Pruritus: Pruritus while in dialysis. Requested IV Benadryl. DVT prophylaxis: Heparin 5000 q12h Attestations 2 Medical Necessity Statement*: Continue admission for assessment management of severe COVID-19 continue admission for assessment of management of severe COVID-19 in a lady with underlying ESRD. and High MDM includes number and complexity of problems actively addressed during encounter and described risk of complication, morbidity or mortality of management as documented Diagnoses COVID-19 U07.1 ESRD on hemodialysis N18.6; Z99.2 Hypoxia R09.02 Acute respiratory failure with hypoxemia J96.01
[2023-05-01] VITALS (13 sets, daily range): BP systolic 153–188; BP diastolic 70–85; PULSE 72–96; RESP 16–22; TEMP 36.5–36.7; O2SAT 94–98; BMI 42.0
[2023-05-01] MEDS: ipratropium-albuterol 3 mL Neb INHALATION ×3 (02:38→13:40)
[2023-05-01] MEDS: oxyCODONE 5 mg IR Tab/Cap 10 MG PO ×2 (04:38→10:04)
[2023-05-01] MEDS: dexamethasone 4 mg/mL INJ 6 MG IVP (04:38)
[2023-05-01] MEDS: heparin 5,000 unit/mL INJ 1 mL 5000 UNIT SUBCUT (04:45)
[2023-05-01 06:28] LABS: Basophils % 0.3 %; Eosinophils % 0.6 %; Hematocrit 28.2 % (36-47); Lymphocytes % 15.5 %; Mean Corpuscular HGB Conc 30.1 g/dL (30-55); Mean Corpuscular Hemoglobin 30.7 pg (27-33); Mean Corpuscular Volume 101.8 fl (85-98); Mean Platelet Volume 10.8 fL (7.4-10.4); Monocytes # 0.5 10^3/uL (0.2-0.9); Neutrophils # 5.12 10^3/uL (1.8-7.7); Nucleated Red Blood Cells % 0 %; Platelet Count 168 10^3/cmm (157-399); Red Blood Count 2.77 10^6/uL (3.85-5.65); Red Cell Distribution Width 17.7 % (12.1-15.1); White Blood Count 6.73 10^3/uL (3.29-11.43)
[2023-05-01 06:38] LABS: D Dimer 2.19 ug/mLFEU (0-0.59)
[2023-05-01 06:42] LABS: Anion Gap 18.4 (5-19); Blood Urea Nitrogen 57 mg/dL (8-23); Calcium 8.1 mg/dL (8.5-10.5); Carbon Dioxide 28 mmol/L (22-29); Chloride 98 mmol/L (98-107); Glucose 140 mg/dL (65-115); Osmolality Calculated 308 mOsm/kg (285-295); Potassium 4.4 mmol/L (3.5-5.1); Sodium 140 mmol/L (136-145)
[2023-05-01] MEDS: budesonide 0.5 mg/2 mL Neb INHALATION (07:49)
[2023-05-01 08:22] LABS: Glucose Point of Care 250 mg/dL (70-110)
[2023-05-01] MEDS: insulin glargine 100 units/1 mL 40 UNIT SUBCUT (10:00)
[2023-05-01] MEDS: pantoprazole DR 40 mg Tablet PO (10:00)
[2023-05-01] MEDS: insulin lispro 100 unit/1 mL SUBCUT ×2 (10:00→13:16)
[2023-05-01] MEDS: benzonatate 100 mg Capsule PO (10:00)
[2023-05-01] MEDS: carbidopa-levodopa 25-100mg Tablet 2 EACH PO (10:00)
[2023-05-01] MEDS: aspirin 81 mg EC Tablet PO (10:00)
[2023-05-01 13:04] LABS: Glucose Point of Care 295 mg/dL (70-110)
--- NOTE | 2023-05-01 13:04 | P.PN_ITS ---
Subjective 2 Subjective: doing well Medications: Reviewed: Yes Vitals/I&O/Wt Last Vital Signs Temp 98.1 F 05/01/23 08:00 Pulse 90 05/01/23 08:00 Resp 18 05/01/23 10:04 BP 188/85 05/01/23 08:00 Pulse Ox 94 05/01/23 10:04 O2 Del Method Nasal Cannula 05/01/23 08:00 O2 Flow Rate 2 05/01/23 07:49 04/30/23 05/01/23 05/01/23 22:59 06:59 14:59 Intake Total 240 / 1511.667 180 / 1691.667 360 / 360 Balance 240 / 1511.667 180 / 1691.667 360 / 360 Weight last 48 hrs Weight 121.563 kg Weight 121.563 kg Physical Exam 2 Narrative: deferred Data 05/01/23 05:45 05/01/23 05:45 A&P Assessment and plan (1) ESRD on hemodialysis: (2) COVID-19: (3) Hypoxia: (4) Acute respiratory failure with hypoxemia: Plan 1. ESRD : on HD per MWF schedule 2. COVID pneumonia 3. Anemia , will give Epogen with hD 4. htn : BP meds on hold Attestations 2 Medical Necessity Statement*: per medicine Coding Level of Care Code Acute Code for g Fwd Diagnoses ESRD on hemodialysis N18.6; Z99.2 COVID-19 U07.1 Hypoxia R09.02 Acute respiratory failure with hypoxemia J96.01
--- NOTE | 2023-05-01 13:24 | PM.DCS ---
Discharge Providers Date of Admission: 04/29/23 03:17 Date of Discharge: May 01, 2023 Attending Provider at Admission: Suzy Morgan MD Attending Provider at Discharge: Prince Yoon Primary Care Provider: Brandi Escalera MD Diagnoses at Discharge Discharge Diagnosis (1) ESRD on hemodialysis: Status: Acute (2) COVID-19: Status: Acute (3) Hypoxia: Status: Acute (4) Acute respiratory failure with hypoxemia: Status: Acute Reason for Visit Reason for Visit: Covid + Brief History: Meghna Chaudhari is a 78 year old female with CKD on HD, history of atrial fibrillation, history of 2 pulmonary embolisms, not on anticoagulation due to ??anemia, h/o NSTEMI s/p stenting to RCA Apr 2022, h/o MRSA pneumonia and bacteremia in 03/2022 Sent to the ER from [place] due to a diagnosis of COVID 19 tested yesterday and 02 requirement at [address] [facility]. She reports cough, sputum production and dyspnea since her diagnosis. Intermittent low grade fever + Hospital Course Hospital Course Was treated for severe COVID-19 infection with remdesivir, Decadron, breathing treatments, oxygen support, pulmonary toilet, underwent dialysis while in the hospital. Condition improved. Oxygenation came back to baseline. She is feeling better, requesting to discharge. Physical Exam Const: COMMON NORMALS: patient oriented x3 and alert GENERAL APPEARANCE: cooperative NUTRITIONAL APPEARANCE: obese ORIENTATION/CONSCIOUSNESS: Yes awake HENMT: COMMON NORMALS: oropharynx normal Neck/C-Spine: COMMON NORMALS: no JVD Resp: COMMON NORMALS: normal respiratory effort AUSCULTATION: wheezes and diminished lung sounds Cardio: COMMON NORMALS: no JVD, regular rhythm, S1 normal heart sound present, S2 normal heart sound present and No murmurs present (Cardio) RHYTHM: regular rhythm HEART SOUNDS: S1 normal heart sound present and S2 normal heart sound present GI: COMMON NORMALS: Normal to inspection, nondistended, normoactive bowel sounds present, Soft to palpation and non-tender PALPATION: Yes Soft to palpation Extremity: COMMON NORMALS: no joint enlargement and no pedal edema NARRATIVE EXTREMITY EXAM: L BKA OTHER: Left arm fistula Neuro: COMMON NORMALS: patient oriented x3 and moves all extremities SENSORIUM/ORIENTATION: Yes alert Skin: COMMON NORMALS: no rashes or lesions noted GENERAL SKIN EXAM: no rashes or lesions noted Discharge Data Studies Completed and Pending Completed Studies During Hospitalization Category Date Time Status CTA PE [CT angio chest PE protcl [id number]] Routine Cat Scan 04/29/23 05:33 Completed XR chest 1V portable [id number] Stat Exams 04/29/23 02:06 Completed Pending at discharge Category Date Time Status Basic Metabolic Panel AM LABS Lab 05/02/23 04:00 Ordered Basic Metabolic Panel AM LABS Lab 05/03/23 04:00 Ordered Blood Cultures ([facility]) Routine Lab 04/29/23 07:00 Received Complete Blood Count w/Auto AM LABS Lab 05/02/23 04:00 Ordered Complete Blood Count w/Auto AM LABS Lab 05/03/23 04:00 Ordered D Dimer AM LABS Lab 05/02/23 04:00 Ordered Radiology Impressions Chest X-Ray 04/29/23 02:06 IMPRESSION: No acute cardiopulmonary disease. Chest CTA 04/29/23 05:33 IMPRESSION: No pulmonary embolism or focal lung consolidation. Dilated main pulmonary trunk and pulmonary vascular congestion. Laboratory Results WBC 6.73 10^3/uL (3.29-11.43) 05/01/23 05:45 RBC 2.77 10^6/uL (3.85-5.65) L 05/01/23 05:45 Hgb 8.50 g/dL (11.27-16.99) L 05/01/23 05:45 Hct 28.2 % (36-47) L 05/01/23 05:45 MCV 101.8 fl (85-98) H 05/01/23 05:45 MCH 30.7 pg (27-33) 05/01/23 05:45 MCHC 30.1 g/dL (30-55) 05/01/23 05:45 RDW 17.7 % (12.1-15.1) H 05/01/23 05:45 Plt Count 168 10^3/cmm (157-399) 05/01/23 05:45 MPV 10.8 fL (7.4-10.4) H 05/01/23 05:45 Neut % (Auto) 76.0 % 05/01/23 05:45 Lymph % (Auto) 15.5 % 05/01/23 05:45 Haines % (Auto) 7.0 % 05/01/23 05:45 Eos % (Auto) 0.6 % 05/01/23 05:45 Baso % (Auto) 0.3 % 05/01/23 05:45 Neut # (Auto) 5.12 10^3/uL (1.8-7.7) 05/01/23 05:45 Lymph # (Auto) 1.0 10^3/uL (0.8-4.8) 05/01/23 05:45 Haines # (Auto) 0.5 10^3/uL (0.2-0.9) 05/01/23 05:45 Eos # (Auto) 0.0 10^3/uL (0.0-0.8) 05/01/23 05:45 Baso # (Auto) 0.0 10^3/uL (0.0-0.1) 05/01/23 05:45 Nucleated RBC % (auto) 0 % 05/01/23 05:45 Nucleated RBCs # 0.0 /100WBC 05/01/23 05:45 D-Dimer 2.19 ug/mLFEU (0-0.59) H 05/01/23 05:45 Sodium 140 mmol/L (136-145) 05/01/23 05:45 Potassium 4.4 mmol/L (3.5-5.1) 05/01/23 05:45 Chloride 98 mmol/L (98-107) 05/01/23 05:45 Carbon Dioxide 28 mmol/L (22-29) 05/01/23 05:45 Anion Gap 18.4 (5-19) 05/01/23 05:45 BUN 57 mg/dL (8-23) H 05/01/23 05:45 Creatinine 4.5 mg/dL (0.5-0.9) H 05/01/23 05:45 GFR Calculation Not Reportable 05/01/23 05:45 Glucose 140 mg/dL (65-115) H 05/01/23 05:45 POC Glucose 295 mg/dL (70-110) H 05/01/23 12:52 Calculated Osmolality 308 mOsm/kg (285-295) H 05/01/23 05:45 Calcium 8.1 mg/dL (8.5-10.5) L 05/01/23 05:45 Total Bilirubin 0.4 mg/dL (0.15-1.2) 04/30/23 02:58 AST 25 U/L (0-32) 04/30/23 02:58 ALT < 5 U/L (0-33) 04/30/23 02:58 Alkaline Phosphatase 103 U/L (35-105) 04/30/23 02:58 Troponin T 5th Gen ng/L 36 ng/L (0-10) H 04/29/23 02:20 C-Reactive Protein 41.7 mg/L (0.0-4.9) H 04/30/23 02:58 NT-Pro-B Natriuret Pep 41875 pg/mL (0-450) H 04/29/23 02:20 Total Protein 7.1 g/dL (6.6-8.7) 04/30/23 02:58 Albumin 3.6 g/dL (3.5-5.2) 04/30/23 02:58 Globulin 3.5 g/dL (1.3-4.6) 04/30/23 02:58 Vitals Last Vital Signs Temp 98.1 F 05/01/23 08:00 Pulse 90 05/01/23 08:00 Resp 18 05/01/23 10:04 BP 188/85 05/01/23 08:00 Pulse Ox 94 05/01/23 10:04 O2 Del Method Nasal Cannula 05/01/23 08:00 O2 Flow Rate 2 05/01/23 07:49 Discharge Plan Discharge Patient Disposition: Home Condition: Stable Prescriptions: Continued (DME) [employer] See Rx Instructions .Route .MEDSUPPLY Qty: 1 0RF Rx Instructions: As directed acetaminophen 500 mg Tablet 1,000 mg PO Q8H PRN (Reason: Pain) Qty: 30 0RF gabapentin 100 mg Capsule 200 mg PO TID Qty: 30 0RF bisacodyl 10 mg Suppository 10 mg ID DAILY PRN (Reason: Constipation) bisacodyl [Dulcolax (bisacodyl)] 5 mg Tablet,Delayed Release (Dr/Ec) 10 mg PO DAILY PRN (Reason: Constipation) loratadine [Claritin] 10 mg Tablet 10 mg PO DAILY albuterol sulfate 2.5 mg /3 mL (0.083 %) solution for nebulization 2.5 mg inhalation Q4H vitamin A and D Ointment See Rx Instructions .ROUTE .COMPLEX Rx Instructions: APPLY TOPICALLY AEVERY SHIFT TO BLATERAL BUTTUCK: CLEANSE WITH SOAP AND WATER AND APPLY A AND D OINTMENT FOR SHEER PREVENTION. sucralfate 1 gram tablet 1 g PO BID sertraline 100 mg tablet 100 mg PO DAILY hydrocodone-acetaminophen 10-325 mg tablet See Rx Instructions .ROUTE .COMPLEX Rx Instructions: TAKE 1 TABLET BY MOUTH NEEDED ONLY IF OUT OF OXYCODONE. Xanax 0.5 mg Tablet 0.5 mg PO TID PRN (Reason: Anxiety) temazepam 15 mg capsule 15 mg PO BEDTIME pantoprazole 40 mg tablet,delayed release (DR/EC) 40 mg PO BID Benadryl 25 mg Capsule 25 mg PO DAILY PRN (Reason: Itching) levothyroxine 125 mcg tablet 125 mcg PO DAILY Colace 100 mg Capsule 100 mg PO DAILY Transderm-Scop 1 mg over 3 days Patch 3 Day See Rx Instructions .ROUTE .COMPLEX Rx Instructions: APPLY 1 PATCH BEHIND EAR EVERY 3 DAYS. REMOVE OLD PATCH PRIOR TO APPLYING NEW ONE. Renvela 800 mg Tablet 1,600 mg PO TID Rx Instructions: must administer with a meal/food oxycodone 10 mg tablet 10 mg PO Q4H PRN (Reason: Pain) furosemide [Lasix] 40 mg Tablet 40 mg PO BID promethazine-DM 6.25-15 mg/5 mL Syrup 5 ml PO Q4H PRN (Reason: Cough) metoprolol tartrate 100 mg Tablet 100 mg PO BID ondansetron HCl 4 mg Tablet 4 mg PO Q6H PRN (Reason: Nausea And Vomiting) clonidine HCl 0.3 mg Tablet 0.3 mg PO Q8H PRN (Reason: systolic bp >160) loperamide [Imodium A-D] 2 mg Tablet 2 mg PO Q6H PRN (Reason: Loose Stool) metolazone 5 mg Tablet 5 mg PO QAM simvastatin 40 mg Tablet 40 mg PO BEDTIME@21 benzonatate 100 mg Capsule 100 mg PO Q8H PRN (Reason: Cough) mirtazapine 30 mg Tablet 30 mg PO BEDTIME@21 ropinirole 0.5 mg Tablet 0.5 mg PO BEDTIME Renal Caps 1 mg Capsule 1 cap PO QPM carbidopa-levodopa 25-100 mg Tablet See Rx Instructions .ROUTE .COMPLEX Rx Instructions: GIVE 3 TABLETS BY MOUTH AT 8 AM AND NOON AND 2 TABLETS AT 6 PM. hydroxyzine pamoate 25 mg Capsule 25 mg PO BEDTIME insulin aspart U-100 [Novolog FlexPen U-100 Insulin] 100 unit/mL (3 mL) Insulin Pen See Rx Instructions .ROUTE .COMPLEX Rx Instructions: sliding scale three times a day. IF BS LESS THAN 60, CALL MD. FOR BS 150-200=3 units 201-250=5 units 251-300=7 units 301-350=9 units 351-400=11 units call provider for bs <60 or >400 cyclobenzaprine 5 mg Tablet 5 mg PO Q8H PRN (Reason: Muscle Spasm) solifenacin 5 mg Tablet 5 mg PO QAM fluticasone propion-salmeterol [Advair HFA] 115-21 mcg/actuation Hfa Aerosol Inhaler 2 puff INHALATION BID insulin glargine [Lantus Solostar U-100 Insulin] 100 unit/mL (3 mL) Insulin Pen 40 unit SUBCUT DAILY@06 cholecalciferol (vitamin D3) [Vitamin D3] 50 mcg (2,000 unit) Capsule 6,000 unit PO DAILY Lumigan 0.01 % Drops 1 drp OPHTHALMIC (EYE) BEDTIME Biofreeze (menthol) 4 % Gel See Rx Instructions .ROUTE .COMPLEX Rx Instructions: apply to bilat feet topically every 4 hours as needed for pain to feet fentanyl 75 mcg/hr patch 72 hour 1 patch transdermal Q72H Qty: 5 0RF Discharge Orders: Discharge Order (Routine); Ordered 05/01/23 Ordered By: Prince Yoon Referrals: Brandi Escalera MD [Primary Care Provider] - 4-7 days Discharge Activity: Oxygen as instructed Patient Instructions: Dialysis Diet (DC), Hemodialysis (DC), Opioid Safety Activity Restrictions/Additional Instructions: Follow-up with primary provider for reassessment of recovery from COVID-19. Seek medical attention in case of any worsening or new concerning symptoms. Continue oxygen 2 L nasal cannula, target oxygen saturation 92%. Follow-up with your primary doctor regarding chronic conditions including anemia, end-stage kidney disease. Discharge Attestations Time Spent in Discharge Care*: greater than 30 min Status at Discharge: Cognitive status at discharge: cognitively intact, Behavioral status at discharge: cooperative, Quality Metrics Clinical Quality Measures [ No reported AMI, CVA or VTE this stay] Coding Level of Care Code 38824 Total time (in minutes) for Discharge: 40 Diagnoses ESRD on hemodialysis N18.6; Z99.2 COVID-19 U07.1 Hypoxia R09.02 Acute respiratory failure with hypoxemia J96.01
--- NOTE | 2023-05-01 16:10 | PC.NURSE ---
Addendum entered by Anita Lockhart RN 05/01/23 16:19: Attempted to call report to [facility] at this time was on hold for 10 minutes will CALL BACK Original Note: Report called to [facility] at this time.
[2023-05-01 19:05] LABS: Glucose Point of Care 182 mg/dL (70-110)
== END 2023-05-01 17:00 | disposition skilled nursing facility (03) | DRG 177 ==
LOC: ER 03:02 → MEDSURG 03:17
PROVIDERS: Admitting Provider Student in an Organized Health Care Education/Training Program; Emergency Provider Emergency Medicine; PCP Family Medicine; Visit Provider Internal Medicine
DX: U07.1 COVID-19 (principal); J96.01 Acute respiratory failure with hypoxia; N18.6 End stage renal disease; I12.0 Hypertensive chronic kidney disease with stage 5 chronic kidney disease or end stage renal disease; E11.22 Type 2 diabetes mellitus with diabetic chronic kidney disease; E11.40 Type 2 diabetes mellitus with diabetic neuropathy, unspecified; I48.91 Unspecified atrial fibrillation; D63.1 Anemia in chronic kidney disease; I25.10 Atherosclerotic heart disease of native coronary artery without angina pectoris; I27.20 Pulmonary hypertension, unspecified; J44.9 Chronic obstructive pulmonary disease, unspecified; E78.5 Hyperlipidemia, unspecified; G20.A1 Parkinson's disease without dyskinesia, without mention of fluctuations; E55.9 Vitamin D deficiency, unspecified; E03.9 Hypothyroidism, unspecified; M79.7 Fibromyalgia; I25.2 Old myocardial infarction; Z99.2 Dependence on renal dialysis; Z86.711 Personal history of pulmonary embolism; Z95.5 Presence of coronary angioplasty implant and graft; Z86.14 Personal history of Methicillin resistant Staphylococcus aureus infection; Z87.01 Personal history of pneumonia (recurrent); Z79.4 Long term (current) use of insulin; Z89.512 Acquired absence of left leg below knee; Z87.891 Personal history of nicotine dependence; Z86.73 Personal history of transient ischemic attack (TIA), and cerebral infarction without residual deficits
CPT/HCPCS: 36415; 36416; 71045; 71275; 80048; 80053; 82962; 83880; 84484; 85025; 85378; 86140; 87040; 93005; 94640; 96372; 96374; 99285; J0248; J1100; J1200; J1644; J1815; J2930; J7626; Q3014; Q9967

== ENCOUNTER → 2023-06-05 07:59 | Outpatient (BNVA) | payer MEDICARE, OTHER, SELFPAY | PROVIDERS: PCP Family Medicine; Visit Provider Podiatrist Foot & Ankle Surgery | DX: Z89.512 Acquired absence of left leg below knee (principal); E11.42 Type 2 diabetes mellitus with diabetic polyneuropathy; I73.9 Peripheral vascular disease, unspecified; Z89.429 Acquired absence of other toe(s), unspecified side; L97.412 Non-pressure chronic ulcer of right heel and midfoot with fat layer exposed; E11.621 Type 2 diabetes mellitus with foot ulcer; Z89.421 Acquired absence of other right toe(s); Z79.4 Long term (current) use of insulin | CPT/HCPCS: 99213 ==

== ENCOUNTER → 2023-09-04 08:33 | Outpatient (BNVA) | payer MEDICARE, OTHER, MEDICAID, SELFPAY | PROVIDERS: PCP Family Medicine; Visit Provider Podiatrist Foot & Ankle Surgery | DX: E11.42 Type 2 diabetes mellitus with diabetic polyneuropathy (principal); Z89.512 Acquired absence of left leg below knee; I73.9 Peripheral vascular disease, unspecified; Z89.421 Acquired absence of other right toe(s); Z79.4 Long term (current) use of insulin | CPT/HCPCS: 99213 ==

== ENCOUNTER → 2023-10-18 10:48 | Outpatient (BNVA) | payer MEDICARE, OTHER, MEDICAID, SELFPAY | PROVIDERS: PCP Family Medicine; Visit Provider Specialist | DX: G20.A1 Parkinson's disease without dyskinesia, without mention of fluctuations (principal); G62.9 Polyneuropathy, unspecified; Z89.512 Acquired absence of left leg below knee | CPT/HCPCS: 99214 ==

== ENCOUNTER 2024-03-19 05:34 | Inpatient (IN) | payer MEDICARE, OTHER, MEDICAID, SELFPAY ==
[2024-03-19] VITALS (23 sets, daily range): BP systolic 94–163; BP diastolic 50–87; PULSE 53–93; RESP 16–20; TEMP 37.6; O2SAT 93–100; BMI 39.1; BMI 39.9
--- NOTE | 2024-03-19 05:41 | CTR_ITS ---
PROCEDURE INFORMATION: Exam: CT Head Without Contrast Exam date and time: 03/19/2024 5:52 AM Age: 78 years old Clinical indication: Stroke-like symptoms; Altered mental status/memory loss; Additional info: AMS TECHNIQUE: Imaging protocol: Computed tomography of the head without contrast. Radiation optimization: All CT scans at this facility use at least one of these dose optimization techniques: automated exposure control; mA and/or kV adjustment per patient size (includes targeted exams where dose is matched to clinical indication); or iterative reconstruction. Other technique: STROKE PROTOCOL was implemented. COMPARISON: No relevant prior studies available. RADIATION DOSE METRICS: Total DLP (mGy-cm): 1108.44 FINDINGS: Brain: No hemorrhage. No edema, mass effect or midline shift. Encephalomalacia noted in the right frontal lobe and right basal ganglia.Periventricular and deep white matter hypodensities compatible with chronic microvascular ischemic changes. Cerebral ventricles: No ventriculomegaly. Paranasal sinuses: Visualized sinuses are unremarkable. No fluid levels. Mastoid air cells: No mastoid effusion. Bones: Unremarkable. No acute fracture. Soft tissues: Unremarkable. CT/CT head wo con* [id number] IMPRESSION: No acute intracranial abnormality. Changes of an acute infarct may not be visible on CT for up to 24 to 48 hours. If this is of clinical concern, a follow up examination and/or MRI may be of benefit. ASSESSMENT: ASPECTS ([place] Stroke Program Early CT Score) is 10.
--- NOTE | 2024-03-19 05:45 | ECG_ITS ---
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1945 Requested By: Federico Gurrola Order Number: [id number] Reading MD: ANDREW WILDER Measurements Intervals [place] Rate: 53 P: 73 NV: 221 QRS: -1 QRSD: 102 T: 23 QT: 445 QTc: 419 Interpretive Statements SINUS BRADYCARDIA WITH FIRST DEGREE AV BLOCK LOW QRS VOLTAGE IN PRECORDIAL LEADS [QRS DEFLECTION < 1.0 mV IN CHEST LEADS] INCOMPLETE RIGHT BUNDLE BRANCH BLOCK [90+ ms QRS DURATION, TERMINAL R IN V1/V2, 40+ ms S IN I/aVL/V4/V5/V6] POSSIBLE ANTERIOR MYOCARDIAL INFARCTION , PROBABLY OLD [30 ms Q WAVE IN V3/V4, OR R < 0.2 mV IN V4] Compared to ECG 04/29/2023 02:28:38 First degree AV block now present Low QRS voltage now present Incomplete right bundle-branch block now present Myocardial infarct finding now present Sinus rhythm no longer present Electronically Signed On 03-19-2024 17:21:30 DENTURE PACKER by ANDREW WILDER [email or web address]
--- NOTE | 2024-03-19 05:47 | ED_ITS ---
HPI - Weakness 2 General: Chief complaint: Weakness Stated complaint: ams Time Seen by Provider: 03/19/24 05:40 History of Present Illness: 78-year-old female presents emergency ro om with increased weakness. She is due to have dialysis today was not able to have it done. Patient is a history of Parkinson's and A-fib. Increased confusion abdominal discomfort and weakness. Associated symptoms: Denies chest pain, chills, dysuria or fever(s) Review of Systems 2 Const: Denies: fever(s) or chills Card: Denies: chest pain Resp: Denies: dyspnea GI: Denies: abdominal pain : Denies: dysuria, urinary frequency or urinary urgency Musc: Denies: neck pain or back pain Skin/Breast: Denies: rash PFSH ED 2 PFSH: Medical History CAD (coronary artery disease) Pulmonary hypertension Elevated troponin Goals of care, counseling/discussion History of pulmonary embolism Chest pain 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 Charcot's joint of left foot MRSA bacteremia ESRD (end stage renal disease) ESRD (end stage renal disease) Chronic kidney disease Hyponatremia Influenza A Pneumonia Iron deficiency anemia Acute exacerbation of CHF (congestive heart failure) Bilateral lower extremity edema Neuropathy Chronic renal insufficiency Post laminectomy syndrome Lumbar disc disease with radiculopathy Sciatica associated with disorder of lumbosacral spine Uncontrolled insulin dependent diabetes mellitus Diabetes mellitus type 2, insulin dependent COPD (chronic obstructive pulmonary disease) Hyperlipemia Vitamin D deficiency Parkinson disease Chronic insomnia Stage 4 chronic renal impairment associated with type 2 diabetes mellitus History of CVA (cerebrovascular accident) Anemia in chronic illness Hypertension Fibromyalgia Diabetic neuropathy Hypothyroidism Surgical History S/P dialysis catheter insertion History of colonoscopy 2020 Hx of hysterectomy Hx of cholecystectomy Hx of foot surgery Family History Father CAD (coronary artery disease) Mother CAD (coronary artery disease) Diabetes Grandfather CAD (coronary artery disease) Diabetes Social History Smoking and tobacco/nicotine status: former use of tobacco/nicotine Second hand smoke exposure: No Alcohol intake: current Alcohol intake frequency: holidays/special occasions only Alcohol type: hard liquor Substance/Drug Use: never Physical Exam 2 Const: GENERAL APPEARANCE: cooperative ORIENTATION/CONSCIOUSNESS: Yes awake, Yes oriented to person, Yes oriented to place and Yes oriented to time HENMT: COMMON NORMALS: normocephalic, atraumatic and hearing grossly normal bilaterally HEAD & SCALP: normocephalic and atraumatic Resp: COMMON NORMALS: normal respiratory effort, No retractions, No use of accessory muscles and clear to auscultation bilaterally AUSCULTATION: clear to auscultation bilaterally Cardio: COMMON NORMALS: regular rate, regular rhythm and No murmurs present (Cardio) RATE: regular rate RHYTHM: regular rhythm GI: COMMON NORMALS: Soft to palpation and No hepatosplenomegaly present A USCULTATION: Yes normoactive bowel sounds PALPATION: Yes Soft to palpation, No Tenderness to palpation present (GI), No Guarding due to palpation present (GI) and Yes No hepatosplenomegaly present Extremity: COMMON NORMALS: normal to inspection, capillary refill normal, no clubbing, cyanosis or edema, no calf tenderness and no pedal edema Neuro: SENSORIUM/ORIENTATION: Yes oriented to person, Yes oriented to place and Yes oriented to time Skin: COMMON NORMALS: no rashes or lesions noted GENERAL SKIN EXAM: no rashes or lesions noted Course 2 Vital Signs: Vital signs: Vital Signs Temperature 98.2 F 03/22/24 11:44 Pulse Rate 62 03/22/24 11:44 Respiratory Rate 18 03/22/24 07:33 Blood Pressure 150/60 03/22/24 11:44 Pulse Oximetry 96 03/22/24 11:44 Oxygen Delivery Me thod Nasal Cannula 03/22/24 11:44 Oxygen Flow Rate 2 03/22/24 11:44 MDM - Weakness Medical Decision Making Cystitis with altered mental status will require hemodialysis today. Encephalopathy likely from UTI but there are multifactorial issues that are contributing. Discussed with hospitalist and family orders written Medical Records I reviewed the patient's medical records. Lab Data I reviewed the patient's lab results. 03/22/24 02:40 03/22/24 02:[address] 03/19/24 05:41 IMPRESSION: No acute intracranial abnormality. Changes of an acute infarct may not be visible on CT for up to 24 to 48 hours. If this is of clinical concern, a follow up examination and/or MRI may be of benefit. ASSESSMENT: ASPECTS ([place] Stroke Program Early CT Score) is 10. Abdomen/Pelvis CT 03/19/24 23:50 IMPRESSION: No acute findings, and other than placement of Puckett catheter within the urinary bladder no significant change compared with the exam done earlier this same day Laboratory Results WBC 7.74 10^3/uL (3.29-11.43) 03/19/24 07:23 RBC 2.94 10^6/uL (3.85-5.65) L 03/19/24 07:23 Hgb 9.20 g/dL (11.27-16.99) L 03/19/24 07:23 Hct 31.3 % (36-47) L 03/19/24 07:23 MCV 106.5 fl (85-98) H 03/19/24 07:23 MCH 31.3 pg (27-33) 03/19/24 07:23 MCHC 29.4 g/dL (30-55) L 03/19/24 07:23 RDW 16.9 % (12.1-15.1) H 03/19/24 07:23 Plt Count 202 10^3/cmm (157-399) 03/19/24 07:23 MPV 10.9 fL (7.4-10.4) H 03/19/24 07:23 Neut % (Auto) 72.6 % 03/19/24 07:23 Lymph % (Auto) 13.4 % 03/19/24 07:23 [place] % (Auto) 11.9 % 03/19/24 07:23 Eos % (Auto) 1.2 % 03/19/24 07:23 Baso % (Auto) 0.5 % 03/19/24 07:23 Neut # (Auto) 5.62 10^3/uL (1.8-7.7) 03/19/24 07:23 Lymph # (Auto) 1.0 10^3/uL (0.8-4.8) 03/19/24 07:23 [place] # (Auto) 0.9 10^3/uL (0.2-0.9) 03/19/24 07:23 Eos # (Auto) 0.1 10^3/uL (0.0-0.8) 03/19/24 07:23 Baso # (Auto) 0.0 10^3/uL (0.0-0.1) 03/19/24 07:23 Nucleated RBC % (auto) 0 % 03/19/24 07:23 Nucleated RBCs # 0.0 /100WBC 03/19/24 07:23 Sodium 136 mmol/L (136-145) 03/19/24 07:23 Potassium 5.2 mmol/L (3.5-5.1) H 03/19/24 07:23 Chloride 95 mmol/L (98-107) L 03/19/24 07:23 Carbon Dioxide 31 mmol/L (22-29) H 03/19/24 07:23 Anion Gap 15.2 (5-19) 03/19/24 07:23 BUN 37 mg/dL (8-23) H 03/19/24 07:23 Creatinine 4.9 mg/dL (0.5-0.9) H 03/19/24 07:23 GFR Calculation Not Reportable 03/19/24 07:23 Glucose 193 mg/dL (65-115) H 03/19/24 07:23 Calculated Osmolality 296 mOsm/kg (285-295) H 03/19/24 07:23 Calcium 8.3 mg/dL (8.5-10.5) L 03/19/24 07:23 Total Bilirubin 1.0 mg/dL (0.15-1.2) 03/19/24 07:23 AST 12 U/L (0-32) 03/19/24 07:23 ALT < 5 U/L (0-33) 03/19/24 07:23 Alkaline Phosphatase 112 U/L (35-105) H 03/19/24 07:23 Troponin T Baseline 34 ng/L (0-10) H 03/19/24 11:40 Total Protein 7.1 g/dL (6.6-8.7) 03/19/24 07:23 Albumin 3.5 g/dL (3.5-5.2) 03/19/24 07:23 Globulin 3.6 g/dL (1.3-4.6) 03/19/24 07:23 Vitamin B12 601 pg/mL (232-1245) 03/19/24 07:23 Folate 18.8 ng/mL (4.8-37.3) 03/19/24 07:23 TSH 1.85 uIU/mL (0.27-4.20) 03/19/24 07:23 Urine Color Yellow (Yellow) 03/19/24 06:12 Urine Appearance Turbid (CLEAR) A 03/19/24 06:12 Urine pH 7.5 (5-7) 03/19/24 06:12 Ur Specific [place] 1.013 (1.005-1.030) 03/19/24 06:12 Urine Protein 3+ (Negative) A 03/19/24 06:12 Urine Glucose (UA) Negative (Normal) 03/19/24 06:12 Urine Ketones Negative (Negative) 03/19/24 06:12 Urine Blood 2+ (Negative) A 03/19/24 06:12 Urine Nitrate Negative (Negative) 03/19/24 06:12 Urine Bilirubin Negative (Negative) 03/19/24 06:12 Urine Urobilinogen 1.0 mg/dL (Negative) 03/19/24 06:12 Ur Leukocyte Esterase 3+ (Negative) A 03/19/24 06:12 Urine RBC 51-100 /hpf (0-2) H 03/19/24 06:12 Urine WBC >100 /hpf (0-5) H 03/19/24 06:12 Ur Squamous Epith Cells 0-5 /hpf (0-5) 03/19/24 06:12 Amorphous Sediment Not Reportable 03/19/24 06:12 Urine Bacteria 1+ /hpf (NONE) H 03/19/24 06:12 Hyaline Casts 0.92 /lpf 03/19/24 06:12 All radiology interpretation(s) finalized by discharge Discharge Plan Discharge Patient Disposition: Admitted As Inpatient Admit Provider: Westley Escalera Clinical Impression: Acute encephalopathy, Diabetes mellitus type 2, insulin dependent, Gangrene of left foot, Anemia of chronic disease, Diabetic peripheral neuropathy associated with type 2 diabetes mellitus, Complicated UTI (urinary tract infection), Parkinson's Disease Condition: Stable Discharge Diet: Diabetic Coding Level of Care Code ED Technical Producer for Chg Fwd Related Data Home Medications Medication Instructions Recorded Confirmed bimatoprost 0.01 % eye drops 1 drp ophthalmic (eye) BEDTIME 04/07/22 03/19/24 (Pepe) carbidopa 25 mg-levodopa 100 mg See Rx Instructions .Route .COMPLEX 04/07/22 03/19/24 tablet cholecalciferol (vitamin D3) 50 6,000 unit PO DAILY 04/07/22 03/19/24 mcg (2,000 unit) capsule (Vitamin D3) clonidine HCl 0.3 mg tablet 0.3 mg PO Q8H PRN systolic bp >160 04/07/22 03/19/24 fluticasone propionate 115 2 puff inhalation BID 04/07/22 03/19/24 mcg-salmeterol 21 mcg/actuation HFA inhaler (Advair HFA) furosemide 40 mg tablet (Lasix) 40 mg PO BID 04/07/22 03/19/24 insulin aspart U-100 100 unit/mL See Rx Instructions .Route .COMPLEX 04/07/22 03/19/24 (3 mL) subcutaneous pen (Novolog FlexPen U-100 Insulin aspart) loperamide 2 mg tablet (Imodium 2 mg PO Q6H PRN Loose Stool 04/07/22 03/19/24 A-D) metolazone 5 mg tablet 5 mg PO QAM 04/07/22 03/19/24 metoprolol tartrate 100 mg tablet 100 mg PO BID 04/07/22 03/19/24 ondansetron HCl 4 mg tablet 4 mg PO Q6H PRN Nausea And Vomiting 04/07/22 03/19/24 simvastatin 40 mg tablet 40 mg PO BEDTIME@21 04/07/22 03/19/24 solifenacin 5 mg tablet 5 mg PO QAM 04/07/22 03/19/24 vitamin B complex and vitamin C 1 cap PO QPM 04/07/22 03/19/24 no.20-folic acid 1 mg capsule (Renal Caps) bisacodyl 10 mg rectal suppository 10 mg MO DAILY PRN Constipation 07/14/22 03/19/24 alprazolam 0.5 mg tablet (Xanax) 0.5 mg PO TID PRN Anxiety 04/29/23 03/19/24 diphenhydramine HCl 25 mg capsule 25 mg PO DAILY PRN Itching 04/29/23 03/19/24 (Benadryl) docusate sodium 100 mg capsule 100 mg PO DAILY 04/29/23 03/19/24 (Colace) pantoprazole 40 mg tablet,delayed 40 mg PO BID 04/29/23 03/19/24 release sertraline 100 mg tablet 100 mg PO DAILY 04/29/23 03/19/24 sevelamer carbonate 800 mg tablet 1,600 mg PO TID 04/29/23 03/19/24 (Renvela) sucralfate 1 gram tablet 1 g PO BID 04/29/23 03/19/24 vitamin A and D See Rx Instructions .Route .COMPLEX 04/29/23 03/19/24 cetirizine 10 mg tablet 10 mg PO DAILY 03/19/24 03/19/24 fluticasone propionate 50 1 mcg intranasal BID 03/19/24 03/19/24 mcg/actuation nasal spray,suspension (Flonase Allergy Relief) hydromorphone 4 mg tablet 4 mg PO Q4H PRN Pain 03/19/24 03/19/24 (Dilaudid) insulin glargine 100 unit/mL (3 35 unit SUBCUT BEDTIME 03/19/24 03/19/24 mL) subcutaneous pen (Trixieaglmary BarrPen U-100 Insulin) levothyroxine 150 mcg tablet 150 mcg PO DAILY 03/19/24 03/19/24 nystatin 100,000 unit/gram topical 1 applic topical BID 03/19/24 03/19/24 powder semaglutide 0.25 mg or 0.5 mg (2 0.25 mg SUBCUT Q7D 03/19/24 03/19/24 mg/3 mL) subcutaneous pen injector (Ozempic) tizanidine 4 mg tablet 4 mg PO DAILY 03/19/24 03/19/24 trihexyphenidyl 2 mg tablet 2 mg PO TID 03/19/24 03/19/24 white petrolatum (Vaseline jelly, 1 applic topical PRN 03/19/24 03/19/24 topical) Previous Rx's Medication Instructions Recorded acetaminophen 500 mg tablet 1,000 mg (2 x 500 mg) PO Q8H PRN 07/02/22 Pain #30 tabs 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
--- NOTE | 2024-03-19 06:24 | CTR_ITS ---
PROCEDURE INFORMATION: Exam: CT Abdomen And Pelvis Without Contrast Exam date and time: 03/19/2024 7:02 AM Age: 78 years old Clinical indication: Abdominal pain; Localized; Left; Prior surgery; Surgery date: 6+ months; Surgery type: Gb, hyst TECHNIQUE: Imaging protocol: Computed tomography of the abdomen and pelvis without contrast. Radiation optimization: All CT scans at this facility use at least one of these dose optimization techniques: automated exposure control; mA and/or kV adjustment per patient size (includes targeted exams where dose is matched to clinical indication); or iterative reconstruction. COMPARISON: US renal BI* [id number] 08/03/2021 11:06 PM RADIATION DOSE METRICS: Total DLP (mGy-cm): 1344.21 FINDINGS: Tubes, catheters and devices: Lower thoracic neurostimulator. Lungs: Dependent atelectasis at the lung bases. Coronary arteries: Coronary artery calcifications. Liver: 25 cm hepatomegaly. Gallbladder and biliary ducts: Cholecystectomy. Pancreas: Normal. No ductal dilation. Spleen: 14 cm splenomegaly. Adrenal glands: Normal. No mass. Kidneys and ureters: Slightly atrophic kidneys on each side. Punctate nonobstructing renal calculi. Stomach and bowel: Unremarkable. No obstruction. No mucosal thickening. Appendix: No evidence of appendicitis. Intraperitoneal space: Unremarkable. No free air. No significant fluid collection. Vasculature: Extensive atherosclerotic calcifications of the aorta. Lymph nodes: Unremarkable. No enlarged lymph nodes. Urinary bladder: Slight thickening of the wall of the urinary bladder. Correlate clinically for cystitis. Mildly thickened urinary bladder wall. Reproductive: Hysterectomy. Bones/joints: Anterior and posterior lumbar fusion. Soft tissues: Unremarkable. Other findings: Organomegaly. CT/CT abdomen pelvis con [id number] IMPRESSION: No acute subdiaphragmatic pathology.
[2024-03-19 06:31] LABS: Bilirubin Urine Negative (Negative); Blood Urine 2+ (Negative); Glucose Urine UA Negative (Normal); Ketones Urine Negative (Negative); Leukocyte Esterase Urine 3+ (Negative); Nitrate Urine Negative (Negative); Protein Urine 3+ (Negative); Specific Gravity, Urine 1.013 (1.005-1.030); Urine Appearance Turbid (CLEAR); Urine Color Yellow (Yellow); pH Urine 7.5 (5-7)
[2024-03-19 06:36] LABS: Add Urine Microscopic? YES; Bacteria Urine 1+ /hpf; Hyaline Casts Urine 0.92 /lpf; RBC Urine 51-100 /hpf (0-2); Squamous Epithelial Cell Urine 0-5 /hpf (0-5); WBC Urine >100 /hpf (0-5)
[2024-03-19 06:58] LABS: Add Urine Culture? Yes; UA Slide Review UA Slide Review Perf
[2024-03-19 07:32] LABS: Basophils % 0.5 %; Eosinophils # 0.1 10^3/uL (0.0-0.8); Eosinophils % 1.2 %; Hematocrit 31.3 % (36-47); Lymphocytes % 13.4 %; Mean Corpuscular HGB Conc 29.4 g/dL (30-55); Mean Corpuscular Hemoglobin 31.3 pg (27-33); Mean Corpuscular Volume 106.5 fl (85-98); Mean Platelet Volume 10.9 fL (7.4-10.4); Monocytes # 0.9 10^3/uL (0.2-0.9); Monocytes % 11.9 %; Neutrophils # 5.62 10^3/uL (1.8-7.7); Neutrophils % 72.6 %; Nucleated Red Blood Cells % 0 %; Platelet Count 202 10^3/cmm (157-399); Red Blood Count 2.94 10^6/uL (3.85-5.65); Red Cell Distribution Width 16.9 % (12.1-15.1); White Blood Count 7.74 10^3/uL (3.29-11.43)
[2024-03-19] MEDS: piperacillin-tazobactam 3.375 GM in sodium chloride 0.9% (plus) 50 ML IV (07:33)
[2024-03-19 07:49] LABS: Alanine Aminotransferase < 5 U/L (0-33); Albumin Level 3.5 g/dL (3.5-5.2); Alkaline Phosphatase 112 U/L (35-105); Anion Gap 15.2 (5-19); Aspartate Amino Transferase 12 U/L (0-32); Blood Urea Nitrogen 37 mg/dL (8-23); Calcium 8.3 mg/dL (8.5-10.5); Carbon Dioxide 31 mmol/L (22-29); Chloride 95 mmol/L (98-107); Creatinine Clr Calc Pharmacy 12.2965; Globulin 3.6 g/dL (1.3-4.6); Glucose 193 mg/dL (65-115); Osmolality Calculated 296 mOsm/kg (285-295); Potassium 5.2 mmol/L (3.5-5.1); Sodium 136 mmol/L (136-145); Total Protein 7.1 g/dL (6.6-8.7)
--- NOTE | 2024-03-19 09:58 | P.HP_ITS ---
Providers/Chief Complaint 2 Admitting Physician: Westley Escalera MD, hospitalist Primary Care Provider: Brandi Escalera MD Chief Complaint: ams History of Present Illness Meghna Chaudhari is a 78 year old female resident of senior care facility with history of end-stage renal disease on hemodialysis, Parkinson's, chronic pain, A-fib, coronary artery disease, history of MRSA bacteremia and pneumonia in 2021, history of PE not on anticoagulation secondary to anemia and reported GI bleed who presents to the hospital with confusion, increased abdominal discomfort. The patient reports she has been weak since around Sunday. Daughters are present and reports she was confused since yesterday, but did not want to come to the emergency department. No reported vomiting, fever. She has apparently been having some lower abdominal pain. I did attempt to call the nursing facility 3 times, but each time the phone would just ring, eventually answering machine would apple picker, reporting no message could be left. I did review her nursing facility records that were sent with her to the ER. Currently patient reports some lower abdominal pain, but did not change much after Puckett insertion and drainage of 700 cc of cloudy urine. Daughter present at bedside reports that her confusion is a little bit better currently than it was earlier, but not yet back to baseline. Review of Systems 2 General: Reports: 10 or more systems reviewed and unremarkable except in HPI and below Card: Denies: chest pain Resp: Denies: dyspnea Medications/Allergies Home Medications Medication Instructions Recorded Confirmed Last Taken Type bimatoprost 0.01 % eye drops 1 drp ophthalmic (eye) BEDTIME 04/07/22 03/19/24 03/18/24 History (Pepe) carbidopa 25 mg-levodopa 100 mg See Rx Instructions .Route .COMPLEX 04/07/22 03/19/24 04/28/23 History tablet cholecalciferol (vitamin D3) 50 6,000 unit PO DAILY 04/07/22 03/19/24 03/19/24 History mcg (2,000 unit) capsule (Vitamin D3) clonidine HCl 0.3 mg tablet 0.3 mg PO Q8H PRN systolic bp >160 04/07/22 03/19/24 04/05/23 History fluticasone propionate 115 2 puff inhalation BID 04/07/22 03/19/24 03/18/24 History mcg-salmeterol 21 mcg/actuation HFA inhaler (Advair HFA) furosemide 40 mg tablet (Lasix) 40 mg PO BID 04/07/22 03/19/24 03/18/24 History insulin aspart U-100 100 unit/mL See Rx Instructions .Route .COMPLEX 04/07/22 03/19/24 03/18/24 History (3 mL) subcutaneous pen (Novolog FlexPen U-100 Insulin aspart) loperamide 2 mg tablet (Imodium 2 mg PO Q6H PRN Loose Stool 04/07/22 03/19/24 01/30/23 History A-D) metolazone 5 mg tablet 5 mg PO QAM 04/07/22 03/19/24 03/18/24 History metoprolol tartrate 100 mg tablet 100 mg PO BID 04/07/22 03/19/24 03/18/24 History ondansetron HCl 4 mg tablet 4 mg PO Q6H PRN Nausea And Vomiting 04/07/22 03/19/24 03/02/23 History simvastatin 40 mg tablet 40 mg PO BEDTIME@21 04/07/22 03/19/24 03/18/24 History solifenacin 5 mg tablet 5 mg PO QAM 04/07/22 03/19/24 03/18/24 History vitamin B complex and vitamin C 1 cap PO QPM 04/07/22 03/19/24 03/18/24 History no.20-folic acid 1 mg capsule (Renal Caps) acetaminophen 500 mg tablet 1,000 mg (2 x 500 mg) PO Q8H PRN 07/02/22 03/19/24 03/17/24 Rx Pain #30 tabs gabapentin 100 mg capsule 200 mg (2 x 100 mg) PO TID #30 caps 07/02/22 03/19/24 03/18/24 Rx bisacodyl 10 mg rectal suppository [address] DAILY PRN Constipation 07/14/22 03/19/24 03/13/24 History fentanyl 75 mcg/hr transdermal 1 patch transdermal Q72H #5 ea 08/26/22 03/19/24 03/17/24 Rx patch Stump Financial Supervisor #1 ea 11/21/22 03/19/24 Unknown Rx alprazolam 0.5 mg tablet (Xanax) 0.5 mg PO TID PRN Anxiety 04/29/23 03/19/2403/18/24 History diphenhydramine HCl 25 mg capsule 25 mg PO DAILY PRN Itching 04/29/23 03/19/24 03/17/24 History (Benadryl) docusate sodium 100 mg capsule 100 mg PO DAILY 04/29/23 03/19/24 03/18/24 History (Colace) hydrocodone 10 mg-acetaminophen See Rx Instructions .Route .COMPLEX 04/29/23 03/19/24 04/23/23 History 325 mg tablet pantoprazole 40 mg tablet,delayed 40 mg PO BID 04/29/23 03/19/24 03/18/24 History release sertraline 100 mg tablet 100 mg PO DAILY 04/29/23 03/19/24 03/18/24 History sevelamer carbonate 800 mg tablet 1,600 mg PO TID 04/29/23 03/19/24 03/18/24 History (Renvela) sucralfate 1 gram tablet 1 g PO BID 04/29/23 03/19/24 03/18/24 History vitamin A and D See Rx Instructions .Route .COMPLEX 04/29/23 03/19/24 04/28/23 History cetirizine 10 mg tablet 10 mg PO DAILY 03/19/24 03/19/24 03/18/24 History fluticasone propionate 50 1 mcg intranasal BID 03/19/24 03/19/24 Unknown History mcg/actuation nasal spray,suspension (Flonase Allergy Relief) hydromorphone 4 mg tablet 4 mg PO Q4H PRN Pain 03/19/24 03/19/24 Unknown History (Dilaudid) insulin glargine 100 unit/mL (3 35 unit SUBCUT BEDTIME 03/19/24 03/19/24 03/18/24 History mL) subcutaneous pen (Basaglar KwikPen U-100 Insulin) levothyroxine 150 mcg tablet 150 mcg PO DAILY 03/19/24 03/19/24 03/18/24 History nystatin 100,000 unit/gram topical 1 applic topical BID 03/19/24 03/19/24 Unknown History powder oxycodone 10 mg tablet 10 mg PO PRN PRN Pain 03/19/24 03/19/24 Unknown History semaglutide 0.25 mg or 0.5 mg (2 0.25 mg SUBCUT Q7D 03/19/24 03/19/24 Unknown History mg/3 mL) subcutaneous pen injector (Ozempic) tizanidine 4 mg tablet 4 mg PO DAILY 03/19/24 03/19/24 Unknown History trihexyphenidyl 2 mg tablet 2 mg PO TID 03/19/24 03/19/24 03/18/24 History white petrolatum (Vaseline jelly, 1 applic topical PRN 03/19/24 03/19/24 03/18/24 History topical) Allergies Allergy/AdvReac Type Severity Reaction Status Date / Time sulfamethoxazole Allergy Rash Verified 03/19/24 05:42 [From Septra] trimethoprim [From Septra] Allergy Rash Verified 03/19/24 05:42 pregabalin [From Lyrica] AdvReac Loopy/Unste Verified 03/19/24 05:42 anoop PFSH Acute 2 PFSH: Medical History (Updated 03/19/24 @ 10:20 by Westley Escalera MD) CAD (coronary artery disease) Pulmonary hypertension Elevated troponin Goals of care, counseling/discussion History of pulmonary embolism Chest pain 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 Charcot's joint of left foot MRSA bacteremia ESRD (end stage renal disease) ESRD (end stage renal disease) Chronic kidney disease Hyponatremia Influenza A Pneumonia Iron deficiency anemia Acute exacerbation of CHF (congestive heart failure) Bilateral lower extremity edema Neuropathy Chronic renal insufficiency Post laminectomy syndrome Lumbar disc disease with radiculopathy Sciatica associated with disorder of lumbosacral spine Uncontrolled insulin dependent diabetes mellitus Diabetes mellitus type 2, insulin dependent COPD (chronic obstructive pulmonary disease) Hyperlipemia Vitamin D deficiency Parkinson disease Chronic insomnia Stage 4 chronic renal impairment associated with type 2 diabetes mellitus History of CVA (cerebrovascular accident) Anemia in chronic illness Hypertension Fibromyalgia Diabetic neuropathy Hypothyroidism Surgical History S/P dialysis catheter insertion History of colonoscopy 2020 Hx of hysterectomy Hx of cholecystectomy Hx of foot surgery Family History Father CAD (coronary artery disease) Mother CAD (coronary artery disease) Diabetes Grandfather CAD (coronary artery disease) Diabetes Social History Smoking and tobacco/nicotine status: former use of tobacco/nicotine Second hand smoke exposure: No Alcohol intake: current Alcohol intake frequency: holidays/special occasions only Alcohol type: hard liquor Substance/Drug Use: never Vitals/I&O/Wt Last Vital Signs Pulse 64 03/19/24 09:00 Resp 16 03/19/24 06:35 BP 151/60 03/19/24 09:30 Pulse Ox 96 03/19/24 09:00 O2 Del Method Nasal Cannula 03/19/24 09:30 O2 Flow Rate 2 03/19/24 06:15 Weight last 48 hrs Weight 113.398 kg Physical Exam 2 Narrative: General Exam is a white female, reporting some abdominal pain. HEENT: Atraumatic and normocephalic. Oropharynx clear Neck is supple no lymphadenopathy thyromegaly Cardiovascular regular rate and rhythm, no murmur Lungs clear Abdomen is soft, but tenderness is noted under the umbilicus. Positive bowel sounds. No obvious organomegaly Extremities no cyanosis clubbing. She does have 1+ edema right lower extremity. 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 Left upper extremity has AV fistula with positive thrill and bruit Neuro no obvious focal deficits Skin no rash demonstrates Puckett currently with 700 cc of urine in the bag that is cloudy. Urinary Catheter Management: Puckett: Cath Placed During This Visit: yes Urinary Catheter Date of Insertion: 03/19/24 Urinary Catheter Time of Insertion: 09:45 Data 03/19/24 07:23 03/19/24 07:23 Other Labs: LFTs normal with the exception of alk phos of 112 MCV is elevated Calcium 8.3, albumin 3.5 Urinalysis demonstrates 5100 reds, greater than 100 whites with 1+ bacteria and 3+ leukocyte Estrace CT head no acute findings, I also reviewed Abdominal pelvis CT which I also reviewed demonstrated some atherosclerosis, thickened bladder, no acute findings. Bladder is distended, fair amount of stool. Micro: Microbiology 03/19/24 09:44 Blood Culture - Preliminary Blood SPECIMEN COLLECTED A&P Assessment and plan (1) Complicated UTI (urinary tract infection): Patient presents with complicated UTI, with acute encephalopathy, and urinary retention. 700 cc drained in the ER with Puckett placement Continue Puckett for now IV antibiotics consisting of meropenem Blood and urine cultures CT scan was obtained, demonstrating no evidence of urinary obstruction Monitor closely for improvement Will need culture results prior to contemplation of discharge (2) Acute encephalopathy: Patient presents with acute encephalopathy, presumably from acute UTI although patient on multiple medications which could also contribute Monitor for improvement Reduce Neurontin Reduce several other medications that could contribute to encephalopathy (3) Chronic pain: Patient with history of chronic pain She is on fentanyl, oxycodone, Dilaudid, hydrocodone. Many of these are as needed. According to patient plan was to discontinue fentanyl, using scheduled Dilaudid For now considering her current presentation will reduce fentanyl to 50 mcg, use Dilaudid as needed, and reassess for other pain medication needs. Addition of senna as she has evidence of some constipation on her CT (4) Anemia of chronic disease: Patient with history of anemia. She has macrocytic. Check TSH and B12. (5) Diabetes mellitus type 2, insulin dependent: Sliding scale insulin currently Reassess to restart long-acting insulin depending upon blood sugars. Consistent carb diet (6) ESRD on hemodialysis: Nephrology consult She typically receives dialysis Sunday Plan Multiple other medical problems as outlined in past medical history Allow natural Heparin will be used for DVT prophylaxis Attestations 2 Medical Necessity Statement*: Will need greater than 2 midnight stay for evaluation and treatment of complicated UTI with need for IV antibiotics. Diagnoses Complicated UTI (urinary tract infection) N39.0 Acute encephalopathy G93.40 Chronic pain G89.29 Anemia of chronic disease D63.8 Diabetes mellitus type 2, insulin dependent E11.9; Z79.4 ESRD on hemodialysis N18.6; Z99.2
[2024-03-19 10:59] LABS: Thyroid Stimulating Hormone 1.85 uIU/mL (0.27-4.20); Vitamin B12 601 pg/mL (232-1245)
[2024-03-19 11:01] LABS: Folate Level 18.8 ng/mL (4.8-37.3)
--- NOTE | 2024-03-19 11:27 | ECG_ITS ---
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 Operator: : 1945 Requested By: Federico Gurrola Order Number: [id number] Reading MD: ANDREW WILDER Measurements Intervals [place] Rate: 58 P: 85 DE: 201 QRS: -4 QRSD: 108 T: 26 QT: 408 QTc: 404 Interpretive Statements SINUS BRADYCARDIA LOW QRS VOLTAGE IN PRECORDIAL LEADS [QRS DEFLECTION < 1.0 mV IN CHEST LEADS] POSSIBLE RIGHT VENTRICULAR CONDUCTION DELAY [RSR (QR) IN V1/V2] Compared to ECG 03/19/2024 13:11:43 Sinus rhythm no longer present Incomplete right bundle-branch block no longer present Electronically Signed On 03-19-2024 17:18:51 INDUSTRIAL STAFF NURSE by ANDREW WILDER [id number]
[2024-03-19 12:07] LABS: Troponin(5th) Baseline 34 ng/L (0-10)
[2024-03-19] MEDS: fentaNYL 50 mcg Patch 1 PATCH TRANSDERMA (12:14)
--- NOTE | 2024-03-19 13:11 | ECG_ITS ---
[facility] Date: 2024-03-19 Pat Name: Meghna Chaudhari Department: Room: 269 Gender: Female Child Support Agent: : 1945 Requested By: Federico Gurrola Order Number: [id number] Reading MD: ANDREW WILDER Measurements Intervals [place] Rate: 67 P: -27 [place]: 194 QRS: 66 QRSD: 105 T: 34 QT: 384 QTc: 408 Interpretive Statements SINUS RHYTHM LOW QRS VOLTAGE IN PRECORDIAL LEADS [QRS DEFLECTION < 1.0 mV IN CHEST LEADS] INCOMPLETE RIGHT BUNDLE BRANCH BLOCK [90+ ms QRS DURATION, TERMINAL R IN V1/V2, 40+ ms S IN I/aVL/V4/V5/V6] Compared to ECG 03/19/2024 05:45:43 Sinus bradycardia no longer present First degree AV block no longer present Myocardial infarct finding no longer present Electronically Signed On 03-19-2024 18:08:08 BRIM BLOCKER by ANDREW WILDER [id number]
[2024-03-19] MEDS: heparin 5,000 unit/mL INJ 1 mL 5000 UNIT SUBCUT ×2 (13:22→22:20)
[2024-03-19] MEDS: meropenem 500 mg SDV IVP ×2 (13:23→22:30)
[2024-03-19 13:24] LABS: Glucose Point of Care 168 mg/dL (70-110)
[2024-03-19] MEDS: insulin lispro 100 unit/1 mL SUBCUT ×2 (13:32→22:23)
[2024-03-19 14:03] LABS: Troponin 5 2HR 31.46 ng/L (0-10)
[2024-03-19 14:04] LABS: Troponin 5 2HR Delta -2.54 ABS# (0-10)
--- NOTE | 2024-03-19 14:11 | PC.NURSE ---
Per pt's wishes, she wishes to be a full code. Dr. Escalera advised. Order changed to full code.
[2024-03-19] MEDS: sevelamer 800 mg Tablet 1600 MG PO ×2 (14:17→22:14)
[2024-03-19] MEDS: gabapentin 100 mg Capsule PO ×2 (14:17→22:13)
--- NOTE | 2024-03-19 14:49 | P.CONIM_ITS ---
Providers/Reason For Consult 2 Consulting Physician/Specialty*: [facility]/NEPHROLOGY Reason for Consult*: ESRD Attending Physician: Gage Gomez MD Primary Care Provider: Brandi Escalera MD History of Present Illness History of Present Illness Meghna Chaudhari is a 78 year old female Patient is a 78-year-old female with end- stage renal disease on hemodialysis,A fib , CAD , MRSA bacteremia, history of PE was sent to the hospital due to altered mental status and abdominal pain . In the emergency department vital signs are stable, lab data significant for hemoglobin of 9.2 potassium [address] head with no acute findings. Abdominal and pelvis CT showed thickened bladder with no other acute findings. UA was consistent with UTI. Review of Systems 2 Narrative: Other review of systems negative Medications/Allergies Home Medications Medication Instructions Recorded Confirmed Last Taken Type bimatoprost 0.01 % eye drops 1 drp ophthalmic (eye) BEDTIME 04/07/22 03/19/24 03/18/24 History (Alexandraigan) carbidopa 25 mg-levodopa 100 mg See Rx Instructions .Route .COMPLEX 04/07/22 03/19/24 04/28/23 History tablet cholecalciferol (vitamin D3) 50 6,000 unit PO DAILY 04/07/22 03/19/24 03/19/24 History mcg (2,000 unit) capsule (Vitamin D3) clonidine HCl 0.3 mg tablet 0.3 mg PO Q8H PRN systolic bp >160 04/07/22 03/19/24 04/05/23 History fluticasone propionate 115 2 puff inhalation BID 04/07/22 03/19/24 03/18/24 History mcg-salmeterol 21 mcg/actuation HFA inhaler (Advair HFA) furosemide 40 mg tablet (Lasix) 40 mg PO BID 04/07/22 03/19/24 03/18/24 History insulin aspart U-100 100 unit/mL See Rx Instructions .Route .COMPLEX 04/07/22 03/19/24 03/18/24 History (3 mL) subcutaneous pen (Novolog FlexPen U-100 Insulin aspart) loperamide 2 mg tablet (Imodium 2 mg PO Q6H PRN Loose Stool 04/07/22 03/19/24 01/30/23 History A-D) metolazone 5 mg tablet 5 mg PO QAM 04/07/22 03/19/24 03/18/24 History metoprolol tartrate 100 mg tablet 100 mg PO BID 04/07/22 03/19/24 03/18/24 History ondansetron HCl 4 mg tablet 4 mg PO Q6H PRN Nausea And Vomiting 04/07/22 03/19/24 03/02/23 History simvastatin 40 mg tablet 40 mg PO BEDTIME@21 04/07/22 03/19/24 03/18/24 History solifenacin 5 mg tablet 5 mg PO QAM 04/07/22 03/19/24 03/18/24 History vitamin B complex and vitamin C 1 cap PO QPM 04/07/22 03/19/24 03/18/24 History no.20-folic acid 1 mg capsule (Renal Caps) acetaminophen 500 mg tablet 1,000 mg (2 x 500 mg) PO Q8H PRN 07/02/22 03/19/24 03/17/24 Rx Pain #30 tabs gabapentin 100 mg capsule 200 mg (2 x 100 mg) PO TID #30 caps 07/02/22 03/19/24 03/18/24 Rx bisacodyl 10 mg rectal suppository 10 mg [place] DAILY PRN Constipation 07/14/22 03/19/24 03/13/24 History fentanyl 75 mcg/hr transdermal 1 patch transdermal Q72H #5 ea 08/26/22 03/19/24 03/17/24 Rx patch Stump Farmworker Poultry #1 ea 11/21/22 03/19/24 Unknown Rx alprazolam 0.5 mg tablet (Xanax) 0.5 mg PO TID PRN Anxiety 04/29/23 03/19/24 03/18/24 History diphenhydramine HCl 25 mg capsule 25 mg PO DAILY PRN Itching 04/29/23 03/19/24 03/17/24 History (Benadryl) docusate sodium 100 mg capsule 100 mg PO DAILY 04/29/23 03/19/24 03/18/24 History (Colace) hydrocodone 10 mg-acetaminophen See Rx Instructions .Route .COMPLEX 04/29/23 03/19/24 04/23/23 History 325 mg tablet pantoprazole 40 mg tablet,delayed 40 mg PO BID 04/29/23 03/19/2424 History release sertraline 100 mg tablet 100 mg PO DAILY 04/29/23 03/19/24 03/18/24 History sevelamer carbonate 800 mg tablet 1,600 mg PO TID 04/29/23 03/19/24 03/18/24 History (Renvela) sucralfate 1 gram tablet 1 g PO BID 04/29/23 03/19/24 03/18/24 History vitamin A and D See Rx Instructions .Route .COMPLEX 04/29/23 03/19/24 04/28/23 History cetirizine 10 mg tablet 10 mg PO DAILY 03/19/24 03/19/24 03/18/24 History fluticasone propionate 50 1 mcg intranasal BID 03/19/24 03/19/24 Unknown History mcg/actuation nasal spray,suspension (Flonase Allergy Relief) hydromorphone 4 mg tablet 4 mg PO Q4H PRN Pain 03/19/24 03/19/24 Unknown History (Dilaudid) insulin glargine 100 unit/mL (3 35 unit SUBCUT BEDTIME 03/19/24 03/19/24 03/18/24 History mL) subcutaneous pen (Basaglar KwikPen U-100 Insulin) levothyroxine 150 mcg tablet 150 mcg PO DAILY 03/19/24 03/19/24 03/18/24 History nystatin 100,000 unit/gram topical 1 applic topical BID 03/19/24 03/19/24 Unknown History powder oxycodone 10 mg tablet 10 mg PO PRN PRN Pain 03/19/24 03/19/24 Unknown History semaglutide 0.25 mg or 0.5 mg (2 0.25 mg SUBCUT Q7D 03/19/24 03/19/24 Unknown History mg/3 mL) subcutaneous pen injector (Ozempic) tizanidine 4 mg tablet 4 mg PO DAILY 03/19/24 03/19/24 Unknown History trihexyphenidyl 2 mg tablet 2 mg PO TID 03/19/24 03/19/24 03/18/24 History white petrolatum (Vaseline jelly, 1 applic topical PRN 03/19/24 03/19/24 03/18/24 History topical) Allergies Allergy/AdvReac Type Severity Reaction Status Date / Time sulfamethoxazole Allergy Rash Verified 03/19/24 05:42 [From Septra] trimethoprim [From Septra] Allergy Rash Verified 03/19/24 05:42 pregabalin [From Lyrica] AdvReac Loopy/Unste Verified 03/19/24 05:42 anoop Current Medications Generic Name Dose Route Start Last Admin Trade Name Freq PRN Reason Stop Dose Admin Fentanyl 1 patch 03/19/24 11:10 03/19/24 12:14 Fentanyl 50 Mcg Patch TRANSDERMA 1 patch Q72H BILLIE Administration Gabapentin 100 mg 03/19/24 15:00 03/19/24 14:17 Gabapentin 100 Mg Capsule PO 100 mg TID BILLIE Administration Heparin Sodium (Porcine) 5,000 unit 03/19/24 11:10 03/19/24 13:22 Heparin 5,000 Unit/Ml Inj 1 Ml SUBCUT 5,000 unit Q12H BILLIE Administration Insulin Human Lispro 0 unit 03/19/24 12:00 03/19/24 13:32 Insulin Lispro 100 Unit/1 Ml SUBCUT 4 unit WM&BEDTIME BILLIE Administration Protocol Meropenem 500 mg 03/19/24 11:30 03/19/24 13:23 Meropenem 500 Mg Sdv IVP 500 mg Q12H BILLIE Administration Sevelamer Carbonate 1,600 mg 03/19/24 15:00 03/19/24 14:17 Sevelamer 800 Mg Tablet PO 1,600 mg TID BILLIE Administration Trihexyphenidyl HCl 2 mg 03/19/24 15:00 03/19/24 14:17 Trihexyphenidyl 2 Mg Tablet PO 2 mg TID BILLIE Administration PFSH Acute 2 PFSH: Medical History (Updated 03/19/24 @ 10:20 by Westley Escalera MD) CAD (coronary artery disease) Pulmonary hypertension Elevated troponin Goals of care, counseling/discussion History of pulmonary embolism Chest pain 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 Charcot's joint of left foot MRSA bacteremia ESRD (end stage renal disease) ESRD (end stage renal disease) Chronic kidney disease Hyponatremia Influenza A Pneumonia Iron deficiency anemia Acute exacerbation of CHF (congestive heart failure) Bilateral lower extremity edema Neuropathy Chronic renal insufficiency Post laminectomy syndrome Lumbar disc disease with radiculopathy Sciatica associated with disorder of lumbosacral spine Uncontrolled insulin dependent diabetes mellitus Diabetes mellitus type 2, insulin dependent COPD (chronic obstructive pulmonary disease) Hyperlipemia Vitamin D deficiency Parkinson disease Chronic insomnia Stage 4 chronic renal impairment associated with type 2 diabetes mellitus History of CVA (cerebrovascular accident) Anemia in chronic illness Hypertension Fibromyalgia Diabetic neuropathy Hypothyroidism Surgical History S/P dialysis catheter insertion History of colonoscopy 2020 Hx of hysterectomy Hx of cholecystectomy Hx of foot surgery Family History Father CAD (coronary artery disease) Mother CAD (coronary artery disease) Diabetes Grandfather CAD (coronary artery disease) Diabetes Social History Smoking and tobacco/nicotine status: former use of tobacco/nicotine Second hand smoke exposure: No Alcohol intake: current Alcohol intake frequency: holidays/special occasions only Alcohol type: hard liquor Substance/Drug Use: never Vitals/I&O/Wt Last Vital Signs Temp 99.6 F 03/19/24 14:02 Pulse 73 03/19/24 14:39 Resp 20 H 03/19/24 14:02 BP 104/69 03/19/24 14:39 Pulse Ox 100 03/19/24 14:39 O2 Del Method Nasal Cannula 03/19/24 14:02 O2 Flow Rate 4 03/19/24 12:00 03/18/24 03/19/24 03/19/24 22:59 06:59 14:59 Intake Total 50 / 50 Balance 50 / 50 Weight last 48 hrs Weight 115.468 kg Weight 113.398 kg Physical Exam 2 Narrative: Awake, alert, no distress HEENT S1-S2 regular rate and rhythm per report Lungs clear No edema Urinary Catheter Management: Puckett: Cath Placed During This Visit: yes Urinary Catheter Date of Insertion: 03/19/24 Urinary Catheter Time of Insertion: 09:45 Data 03/20/24 04:29 03/20/24 04:29 Micro: Microbiology 03/19/24 10:20 Blood Culture - Preliminary Blood SPECIMEN COLLECTED 03/19/24 09:44 Blood Culture - Preliminary Blood SPECIMEN COLLECTED A&P Assessment and plan (1) ESRD on hemodialysis: Plan 1. End-stage renal disease: On MWF schedule, HD today 2. History of hypertension: Resumed home meds 3. Anemia: Will order CHANDRAKANT with HD 4. UTI, antibiotics per primary team started on meropenem 5. Metabolic encephalopathy 6. History of coronary artery disease patient evaluated using audiovisual cart.-40 minutes. Coding Level of Care Code Acute Code for Chg Fwd Diagnoses ESRD on hemodialysis N18.6; Z99.2
--- NOTE | 2024-03-19 16:02 | PC.NURSE ---
Pt to dialysis at this time.
[2024-03-19 16:34] LABS: Glucose Point of Care 185 mg/dL (70-110)
[2024-03-19] MEDS: ipratropium-albuterol 3 mL Neb INHALATION (19:27)
[2024-03-19] MEDS: budesonide 0.5 mg/2 mL Neb INHALATION (19:27)
[2024-03-19 21:02] LABS: Glucose Point of Care 179 mg/dL (70-110)
[2024-03-19] MEDS: metoprolol tartrate 50 mg Tablet 100 MG PO (22:13)
[2024-03-19] MEDS: sucralfate 1 gm Tablet PO (22:13)
[2024-03-19] MEDS: carbidopa-levodopa 25-100mg Tablet 2 EACH PO (22:13)
[2024-03-19] MEDS: atorvastatin 40 mg Tablet 20 MG PO (22:14)
[2024-03-19] MEDS: pantoprazole DR 40 mg Tablet PO (22:14)
[2024-03-19] MEDS: FUROsemide 40 mg Tablet PO (22:15)
[2024-03-19] MEDS: sennosides-docusate Tablet 1 TAB PO (22:15)
[2024-03-19] MEDS: ALPRAZolam 0.5 mg Tablet PO (22:21)
--- NOTE | 2024-03-19 23:50 | CTR_ITS ---
PROCEDURE INFORMATION: Exam: CT Abdomen And Pelvis Without Contrast Exam date and time: 03/19/2024 11:57 PM Age: 78 years old Clinical indication: Abdominal pain; Localized; Lower; Prior surgery; Surgery date: 6+ months; Surgery type: Choley, hysterectomy, dialysis; Additional info: Severe bladder pain; Evaluate for retention, bladder scan non-diagnostic. TECHNIQUE: Imaging protocol: Computed tomography of the abdomen and pelvis without contrast. Radiation optimization: All CT scans at this facility use at least one of these dose optimization techniques: automated exposure control; mA and/or kV adjustment per patient size (includes targeted exams where dose is matched to clinical indication); or iterative reconstruction. COMPARISON: CT abdomen pelvis wo con [id number] 03/19/2024 7:02 AM RADIATION DOSE METRICS: Total DLP (mGy-cm): 1169.83 FINDINGS: Limitations: The absence of intravenous contrast lessens the sensitivity of this study for solid organ abnormalities. Lungs: There is dependent atelectasis at the lung bases. Heart: The heart is mildly enlarged. Coronary arteries: There is moderate atherosclerotic calcification of the coronary arteries. Liver: There is no focal abnormality within the liver. There is moderate enlargement of the liver. The liver is 23 cm in height. Gallbladder and biliary ducts: There has been a cholecystectomy. There is no common bile duct dilation. Pancreas: The pancreas is normal. Spleen: The spleen is normal. Spleen is mildly prominent measuring 13 cm in height. Adrenal glands: The adrenal glands are normal. Kidneys and ureters: There is focal calcification in the mid right kidney which may represent small nonobstructing stone. The left kidney is normal. There is no evidence of hydronephrosis. There is no stone along the course of either ureter. Stomach and bowel: There is no evidence of colitis/diverticulitis. There is no evidence of intestinal obstruction. Appendix: A normal appendix is identified. There is an appendicolith within the appendix not significantly changed. Intraperitoneal space: There is no evidence of free intraperitoneal fluid. Vasculature: There is extensive atherosclerotic calcification of the abdominal aorta. There is no evidence of an abdominal aortic aneurysm. Lymph nodes: There are small periaortic lymph nodes and mildly prominent mesenteric lymph nodes but no adenopathy. Urinary bladder: There is Puckett catheter within the urinary bladder. There is some air within the urinary bladder presumably related to the recent catheterization. Mild urinary bladder wall thickening not significantly changed from the earlier examination. Please correlate for findings of urinary tract infection. Reproductive: There has been a hysterectomy. Bones/joints: There are postsurgical changes of L3-S1 PLIF with wide laminectomies and bilateral pedicle screws at all levels and instrumentation in the disc spaces not significantly changed. Soft tissues: Unremarkable. CT/CT abdomen pelvis wo con [id number] IMPRESSION: No acute findings, and other than placement of Puckett catheter within the urinary bladder no significant change compared with the exam done earlier this same day
[2024-03-20] VITALS (19 sets, daily range): BP systolic 109–176; BP diastolic 51–89; PULSE 50–80; RESP 14–20; TEMP 36.4–37.3; O2SAT 90–97
[2024-03-20] MEDS: HYDROmorphone 1 mg/mL INJ 1 mL 0.5 MG IVP (00:14)
[2024-03-20] MEDS: metOLazone 5 MG Tablet PO (05:44)
[2024-03-20 06:01] LABS: Basophils % 0.3 %; Eosinophils # 0.1 10^3/uL (0.0-0.8); Eosinophils % 1.1 %; Hematocrit 32.4 % (36-47); Lymphocytes # 1.2 10^3/uL (0.8-4.8); Lymphocytes % 13.5 %; Mean Corpuscular HGB Conc 29.3 g/dL (30-55); Mean Corpuscular Volume 105.9 fl (85-98); Mean Platelet Volume 10.5 fL (7.4-10.4); Monocytes # 0.9 10^3/uL (0.2-0.9); Monocytes % 10.1 %; Neutrophils # 6.54 10^3/uL (1.8-7.7); Neutrophils % 74.3 %; Nucleated Red Blood Cells % 0 %; Platelet Count 229 10^3/cmm (157-399); Red Blood Count 3.06 10^6/uL (3.85-5.65); White Blood Count 8.81 10^3/uL (3.29-11.43)
[2024-03-20 06:24] LABS: Alanine Aminotransferase < 5 U/L (0-33); Albumin Level 3.5 g/dL (3.5-5.2); Alkaline Phosphatase 109 U/L (35-105); Anion Gap 13.2 (5-19); Aspartate Amino Transferase 9 U/L (0-32); Blood Urea Nitrogen 24 mg/dL (8-23); Carbon Dioxide 32 mmol/L (22-29); Chloride 98 mmol/L (98-107); Creatinine Clr Calc Pharmacy 16.2559; Globulin 3.4 g/dL (1.3-4.6); Glucose 142 mg/dL (65-115); Magnesium 1.9 mg/dL (1.7-2.3); Osmolality Calculated 294 mOsm/kg (285-295); Potassium 4.2 mmol/L (3.5-5.1); Sodium 139 mmol/L (136-145); Total Bilirubin 0.7 mg/dL (0.15-1.2); Total Protein 6.9 g/dL (6.6-8.7)
[2024-03-20 06:37] LABS: Glucose Point of Care 141 mg/dL (70-110)
--- OUTSIDE RECORDS SUMMARY | 2024-03-20 06:52 | XMS_ITS ---
Author Name Ilene Mora Address [address] [place] [address] Phone [phone] Organization [facility] e, NA DOCUMENT DISCLAIMER Multiple document versions may exist, please be sure you review the latest version. The information in the [facility] Progress Note Document represents a providers documented clinical note containing certain health and medical information. It may not contain the complete medical history for the patient and should be independently verified. The represented time in the document is Eastern Time PROVIDER ROUNDING NOTE BASIC Patient:?Meghna?Fara,?1945,?78y,?F Dialysis?Location:[place] Attending?Rn Care Transition:?Carmen Service?Date:?01/28/2024 Service?Provider:?Ilene?Abby,?CONSOLIDATOR I?met?face?to?face?with?the?patient?today. 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 LAST?HOSPITALIZATION Discharge?Diagnosis:?U07.1?Covid-19 J96.01?Acute?respiratory?failure?with?hypoxia Admission?Date?04/29/23 Discharge?Date?05/01/23 DIALYSIS?PRESCRIPTION ??IHD?3x?Week?Start?date:?01/02/24 ??Dialyzer:?180NRe?Optiflux ??BFR:?450 ??DFR:?Autoflow?2 ??Potassium:?2.0 ??Sodium:?137 ??EDW:?117.4 ??Duration:?3:30 ??Calcium:?2.5 ??Bicarb:?36 ??Rx?updated?on:?01/02/2024 TREATMENT?ASSESSMENT Comments:?Stable. BP?Sit?Pre ??01/25/2024:?124/77 ??01/21/2024:?164/78 ??01/18/2024:?145/62 BP?Sit?Post ??01/25/2024:?154/83 ??01/21/2024:?127/77 ??01/18/2024:?138/64 Tx?Duration ??01/25/2024:?3:33 ??01/21/2024:?3:36 ??01/18/2024:?3:30 Missed?Treatments 1?-?last?30?days 1?-?last?60?days 01/22?-?recent FLUID?ASSESSMENT Comments:?Stable. EDW?(kg) ??01/25/2024:?117.4 ??01/21/2024:?117.4 ??01/18/2024:?117.4 Weight?Pre?(kg) ??01/25/2024:?118.3 ??01/21/2024:?119.8 ??01/18/2024:?118.2 Weight?Post?(kg) ??01/25/2024:?117.6 ??01/21/2024:?116.0 ??01/18/2024:?117.8 PWV?(kg) ??01/25/2024:?0.2 ??01/21/2024:?-1.4 ??01/18/2024:?0.4 UF?Rate?(mL/kg/hr) ??01/25/2024:?1.7 ??01/21/2024:?9.1 ??01/18/2024:?1 ADEQUACY?ASSESSMENT Comments:?No?new?labs?to?review spKt/V,?URR ??01/02/2024:?1.53,?75.0 ??12/05/2023:?1.5,?73.0 ??11/21/2023:?1.42,?71.0 ACCESS?ASSESSMENT ??Access?Type:?AVFistula ??Access?SubType:?Transposed ??Access?Status:?Active?(In?Use)?-?11/06/2022 ??Access?Location:?Left?Upper?Arm ??Created:?01/27/2022 Flow ??01/14/2024:?751 ??12/17/2023:?1267 ??11/14/2023:?1458 ANEMIA?ASSESSMENT Comments:?On?IV?iron?and?CHANDRAKANT?protocol. On?max?dose?of?Micera. Hgb?is?coming?up. Continue?to?monitor HGB ??01/25/2024:?10.8 ??01/16/2024:?10.8 ??01/09/2024:?10.8 ?? Ferritin ??01/02/2024:?1492.0 ??10/03/2023:?1089.0 ??08/15/2023:?1029.0 Mircera,?IVP?(mcg) ??01/21/2024:?200 ??01/07/2024:?225 ??12/24/2023:?225 Iron?Sucrose?(Venofer)?(mg) ??01/21/2024:?50 ??01/14/2024:?50 ??01/07/2024:?50 BMM?ASSESSMENT Comments:?No?new?labs?to?review PTH,?Intact ??01/02/2024:?281.0 ??10/03/2023:?389.0 ??07/04/2023:?251.0 ?? Calcium,?Phosphorus ??01/02/2024:?8.9,?4.0 ??12/05/2023:?9.5,?3.6 ??10/31/2023:?8.5,?3.9 NUTRITION?ASSESSMENT Comments:?No?new?labs?to?review Potassium,?Albumin ??01/02/2024:?4.4,?4.2 ??12/05/2023:?4.4,?4.4 ??10/31/2023:?4.4,?4.2 ?? 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 Exam?Not?Performed. DIAGNOSIS Chief?Complaint:?N18.6?End?stage?renal?disease Patient?data?updated?01/28/2024?at?7:59?AM Signed?By:?Abby,?Ilene,?CONSOLIDATOR??on?01/28/2024?8:01:01 AM END OF DOCUMENT
--- OUTSIDE RECORDS SUMMARY | 2024-03-20 06:52 | XMS_ITS ---
Author Name Idalmis Watt Address [address] [place] [address] Phone [phone] Organization [facility] e, NA DOCUMENT DISCLAIMER Multiple document versions may exist, please be sure you review the latest version. The information in the [facility] Progress Note Document represents a providers documented clinical note containing certain health and medical information. It may not contain the complete medical history for the patient and should be independently verified. The represented time in the document is Eastern Time PROVIDER ROUNDING NOTE COMPREHENSIVE Patient:?Meghna?Fara,?1945,?78y,?F Dialysis?Location:?[place] Attending?Audiovisual Librarian:?Carmen Service?Date:?10/24/2023 Service?Provider:?Idalmis?Shukri,? I?met?face?to?face?with?the?patient?today. OVERVIEW The?patient?presented?with?ESRD?on?dialysis Primary?cause?of?renal?failure:?Type?2?diabetes?mellitus&#16 0;with?diabetic?chronic?kidney?disease Comments:?VSS,?seen?on?HD?machine,?denies?needs?for?me today She?has?her?dentures?now. Medications?and?labs?reviewed. LAST?HOSPITALIZATION Discharge?Diagnosis:?U07.1?Covid-19 J96.01?Acute?respiratory?failure?with?hypoxia Admission?Date?04/29/23 Discharge?Date?05/01/23 DIALYSIS?PRESCRIPTION ??IHD?3x?Week?Start?date:?10/19/23 ??Dialyzer:?180NRe?Optiflux ??BFR:?450 ??DFR:?Autoflow?2 ??Potassium:?2.0 ??Sodium:?137 ??EDW:?125.5 ??Duration:?3:30 ??Calcium:?2.5 ??Bicarb:?36 ??Rx?updated?on:?10/19/2023 TREATMENT?ASSESSMENT Comments:?Stable. BP?Sit?Pre ??10/22/2023:?127/97 ??10/19/2023:?163/84 ??10/17/2023:?166/64 BP?Sit?Post ??10/22/2023:?120/60 ??10/19/2023:?136/65 ??10/17/2023:?101/73 Tx?Duration ??10/22/2023:?3:30 ??10/19/2023:?3:33 ??10/17/2023:?3:35 Missed?Treatments 1?-?last?30?days 2?-?last?60?days 09/23?-?recent FLUID?ASSESSMENT Comments:?Stable. EDW?(kg) ??10/22/2023:?125.5 ??10/19/2023:?126.5 ??10/17/2023:?126.5 Weight?Pre?(kg) ??10/22/2023:?129.4 ??10/19/2023:?127.4 ??10/17/2023:?128.0 Weight?Post?(kg) ??10/22/2023:?126.7 ??10/19/2023:?125.1 ??10/17/2023:?127.1 PWV?(kg) ??10/22/2023:?1.2 ??10/19/2023:?-1.4 ??10/17/2023:?0.6 UF?Rate?(mL/kg/hr) ??10/22/2023:?6.1 ??10/19/2023:?5.2 ??10/17/2023:?2 ADEQUACY?ASSESSMENT Comments:?Stable?at?goal?range. spKt/V,?URR ??10/03/2023:?1.4,?70.0 ??08/29/2023:?1.51,?73.0 ??08/01/2023:?1.35,?69.0 ACCESS?ASSESSMENT ??Access?Type:?AVFistula ??Access?SubType:?Transposed ??Access?Status:?Active?(In?Use)?-?11/06/2022 ??Access?Location:?Left?Upper?Arm ??Created:?01/27/2022 Flow ??10/17/2023:?1165 ??08/20/2023:?>1999 ??08/15/2023:?>1999 Vascular?access?reviewed.?Current?access?is?permanent?and?functioning?well. ANEMIA?ASSESSMENT Comments:?On?IV?iron?and?CHANDRAKANT?protocol. On?max?dose?of?Micera. Check?folate,?B12?and?TSH Have?NH?to?check?FOBT Denies?melena Will?change?to?epogen. HGB,?TSAT ??10/17/2023:?8.0,?- ??10/10/2023:?8.1,?- ??10/03/2023:?9.1,?19.0 ?? Ferritin ??10/03/2023:?1089.0 ??08/15/2023:?1029.0 ??07/27/2023:?1199.0 Mircera,?IVP?(mcg) ??10/15/2023:?225 ??09/17/2023:?200 ??09/03/2023:?200 Iron?Sucrose?(Venofer)?(mg) ??10/19/2023:?100 ??10/17/2023:?100 ??10/15/2023:?100 BMM?ASSESSMENT Comments:?Stable?at?goal?range. Monitor?phos?as?at?lower?end?of?normal. PTH,?Intact ??10/03/2023:?389.0 ??07/04/2023:?251.0 ??04/04/2023:?287.0 ?? Calcium,?Phosphorus ??10/03/2023:?8.9,?3.3 ??09/05/2023:?8.5,?- ??08/29/2023:?7.6,?6.2 NUTRITION?ASSESSMENT Potassium?controlled.?Albumin?controlled.?No?changes?indicated.? Potassium,?Albumin ??10/03/2023:?5.4,?4.2 ??08/29/2023:?5.0,?4.2 ??08/01/2023:?5.8,?4.5 ?? 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 Patient?data?updated?10/24/2023?at?10:45?AM Signed?By:?Shukri,?Idalmis???on?10/24/2023?10:48:31?AM END OF DOCUMENT
--- OUTSIDE RECORDS SUMMARY | 2024-03-20 06:52 | XMS_ITS ---
Author Name Idalmis Watt Address [address] [place] [address] Phone [phone] Organization [facility] e, NA DOCUMENT DISCLAIMER Multiple document versions may exist, please be sure you review the latest version. The information in the [facility] Progress Note Document represents a providers documented clinical note containing certain health and medical information. It may not contain the complete medical history for the patient and should be independently verified. The represented time in the document is Eastern Time PROVIDER ROUNDING NOTE COMPREHENSIVE Patient:?Meghna?Fara,?1945,?78y,?F Dialysis?Location:?[place] Attending?Food Mobile Driver:?Carmen Service?Date:?02/20/2024 Service?Provider:?Idalmis?Shukri,? I?met?face?to?face?with?the?patient?today. 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 Medications?and?labs?reviewed. LAST?HOSPITALIZATION Discharge?Diagnosis:?U07.1?Covid-19 J96.01?Acute?respiratory?failure?with?hypoxia Admission?Date?04/29/23 Discharge?Date?05/01/23 DIALYSIS?PRESCRIPTION ??IHD?3x?Week?Start?date:?02/18/24 ??Dialyzer:?180NRe?Optiflux ??BFR:?450 ??DFR:?Autoflow?2 ??Potassium:?2.0 ??Sodium:?137 ??EDW:?116.4 ??Duration:?3:30 ??Calcium:?2.5 ??Bicarb:?36 ??Rx?updated?on:?02/18/2024 TREATMENT?ASSESSMENT Comments:?Add?lisinopril?10?mg?qhs. [place]?BP?logs?with?SBP?mainly?140-150s. BP?Sit?Pre ??02/18/2024:?160/92 ??02/15/2024:?147/74 ??02/13/2024:?138/59 BP?Sit?Post ??02/18/2024:?156/95 ??02/15/2024:?140/69 ??02/13/2024:?124/69 Tx?Duration ??02/18/2024:?3:34 ??02/15/2024:?3:31 ??02/13/2024:?3:34 Missed?Treatments 1?-?last?30?days 1?-?last?60?days 01/22?-?recent FLUID?ASSESSMENT Comments:?Stable. EDW?(kg) ??02/18/2024:?116.8 ??02/15/2024:?116.8 ??02/13/2024:?116.8 Weight?Pre?(kg) ??02/18/2024:?116.8 ??02/15/2024:?117.2 ??02/13/2024:?118.6 Weight?Post?(kg) ??02/18/2024:?116.4 ??02/15/2024:?116.2 ??02/13/2024:?116.4 PWV?(kg) ??02/18/2024:?-0.4 ??02/15/2024:?-0.6 ??02/13/2024:?-0.4 UF?Rate?(mL/kg/hr) ??02/18/2024:?1 ??02/15/2024:?2.4 ??02/13/2024:?5.3 ADEQUACY?ASSESSMENT Adequacy?target?met.?Prescription?compliance?acceptable.? spKt/V,?URR ??01/30/2024:?1.37,?72.0 ??01/02/2024:?1.53,?75.0 ??12/05/2023:?1.5,?73.0 ACCESS?ASSESSMENT ??Access?Type:?AVFistula ??Access?SubType:?Transposed ??Access?Status:?Active?(In?Use)?-?11/06/2022 ??Access?Location:?Left?Upper?Arm ??Created:?01/27/2022 Flow ??02/15/2024:?855 ??01/14/2024:?751 ??12/17/2023:?1267 Vascular?access?reviewed.?Current?access?is?permanent?and?functioning?well. ANEMIA?ASSESSMENT Comments:?On?IV?iron?and?CHANDRAKANT?protocol. On?max?dose?of?Micera. Hgb?is?stable Continue?to?monitor HGB,?TSAT ??02/13/2024:?10.9,?- ??02/06/2024:?10.8,?- ??01/30/2024:?10.6,?32.0 ?? Ferritin ??01/02/2024:?1492.0 ??10/03/2023:?1089.0 ??08/15/2023:?1029.0 Mircera,?IVP?(mcg) ??02/18/2024:?200 ??02/04/2024:?200 ??01/21/2024:?200 Iron?Sucrose?(Venofer)?(mg) ??02/04/2024:?50 ??01/28/2024:?50 ??01/21/2024:?50 BMM?ASSESSMENT Comments:?Stable? PTH,?Intact ??01/02/2024:?281.0 ??10/03/2023:?389.0 ?? Calcium,?Phosphorus ??01/30/2024:?8.8,?4.8 ??01/02/2024:?8.9,?4.0 ??12/05/2023:?9.5,?3.6 NUTRITION?ASSESSMENT Comments:?Stable Potassium,?Albumin ??01/30/2024:?4.5,?3.9 ??01/02/2024:?4.4,?4.2 ??12/05/2023:?4.4,?4.4 ?? 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 Exam?Performed.?Vital?Signs?Reviewed.?CV?-?Blood?pressure&#1 60;noted.?EXT?-?No?ulcers.?AVF/AVG?Positive?[place]/bruit. 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 Patient?data?updated?02/20/2024?at?10:29?AM Signed?By:?Shukri,?Idalmis???on?02/20/2024?10:30:52?AM END OF DOCUMENT
--- OUTSIDE RECORDS SUMMARY | 2024-03-20 06:52 | XMS_ITS ---
Author Name Abby Ilene Address [address] [place] [address] Phone [phone] Organization [facility] e, NA DOCUMENT DISCLAIMER Multiple document versions may exist, please be sure you review the latest version. The information in the [facility] Progress Note Document represents a providers documented clinical note containing certain health and medical information. It may not contain the complete medical history for the patient and should be independently verified. The represented time in the document is Eastern Time PROVIDER ROUNDING NOTE COMPREHENSIVE Patient:?Meghna?Fara,?1945,?78y,?F Dialysis?Location:?[place] Attending?Shirt Bander:?Carmen Service?Date:?12/10/2023 Service?Provider:?Ilene?Abby,?BUSINESS SERVICES REPRESENTATIVE I?met?face?to?face?with?the?patient?today. 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 LAST?HOSPITALIZATION Discharge?Diagnosis:?U07.1?Covid-19 J96.01?Acute?respiratory?failure?with?hypoxia Admission?Date?04/29/23 Discharge?Date?05/01/23 DIALYSIS?PRESCRIPTION ??IHD?3x?Week?Start?date:?12/07/23 ??Dialyzer:?180NRe?Optiflux ??BFR:?450 ??DFR:?Autoflow?2 ??Potassium:?2.0 ??Sodium:?137 ??EDW:?121.5 ??Duration:?3:30 ??Calcium:?2.5 ??Bicarb:?36 ??Rx?updated?on:?12/07/2023 TREATMENT?ASSESSMENT Comments:?Stable. BP?Sit?Pre ??12/07/2023:?165/74 ??12/05/2023:?129/109 ??12/03/2023:?181/74 BP?Sit?Post ??12/07/2023:?145/58 ??12/05/2023:?184/106 ??12/03/2023:?183/78 Tx?Duration ??12/07/2023:?3:29 ??12/05/2023:?3:34 ??12/03/2023:?3:17 Missed?Treatments 0?-?last?30?days 0?-?last?60?days FLUID?ASSESSMENT Comments:?Stable. EDW?(kg) ??12/07/2023:?122.0 ??12/05/2023:?122.6 ??12/03/2023:?124.5 Weight?Pre?(kg) ??12/07/2023:?123.0 ??12/05/2023:?124.8 ??12/03/2023:?124.0 Weight?Post?(kg) ??12/07/2023:?121.5 ??12/05/2023:?122.0 ??12/03/2023:?122.6 PWV?(kg) ??12/07/2023:?-0.5 ??12/05/2023:?-0.6 ??12/03/2023:?-1.9 UF?Rate?(mL/kg/hr) ??12/07/2023:?3.5 ??12/05/2023:?6.4 ??12/03/2023:?3.5 ADEQUACY?ASSESSMENT Adequacy?target?met.?Prescription?compliance?acceptable.?No?changes?indicated.? spKt/V,?URR ??12/05/2023:?1.5,?73.0 ??11/21/2023:?1.42,?71.0 ??11/07/2023:?1.34,?70.0 ACCESS?ASSESSMENT ??Access?Type:?AVFistula ??Access?SubType:?Transposed ??Access?Status:?Active?(In?Use)?-?11/06/2022 ??Access?Location:?Left?Upper?Arm ??Created:?01/27/2022 Flow ??11/14/2023:?1458 ??10/17/2023:?1165 ??08/20/2023:?>2000 Vascular?access?reviewed.?Current?access?is?permanent?and?functioning?well. ANEMIA?ASSESSMENT Comments:?On?IV?iron?and?CHANDRAKANT?protocol. On?max?dose?of?Micera. Hgb?is?coming?up. May?need?to?change?to?epogen.?? Continue?to?monitor HGB,?TSAT ??12/05/2023:?10.1,?23.0 ??11/28/2023:?9.9,?- ??11/21/2023:?9.6,?- ?? Ferritin ??10/03/2023:?1089.0 ??08/15/2023:?1029.0 ??07/27/2023:?1199.0 Mircera,?IVP?(mcg) ??11/26/2023:?225 ??11/12/2023:?225 ??10/29/2023:?225 Iron?Sucrose?(Venofer)?(mg) ??12/05/2023:?50 ??11/28/2023:?50 ??11/21/2023:?50 BMM?ASSESSMENT Comments:? PTH?controlled.?Calcium?controlled.?Phosphorus?controlled.?BMM?me ds?adherence?acceptable.?No?changes?indicated.? PTH,?Intact ??10/03/2023:?389.0 ??07/04/2023:?251.0 ?? Calcium,?Phosphorus ??12/05/2023:?9.5,?3.6 ??10/31/2023:?8.5,?3.9 ??10/03/2023:?8.9,?3.3 NUTRITION?ASSESSMENT Potassium?controlled.?Albumin?controlled.?No?changes?indicated.? Potassium,?Albumin ??12/05/2023:?4.4,?4.4 ??10/31/2023:?4.4,?4.2 ??10/03/2023:?5.4,?4.2 ?? 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 DIAGNOSIS Chief?Complaint:?N18.6?End?stage?renal?disease Patient?data?updated?12/10/2023?at?8:19?AM Signed?By:?Abby,?Ilene,?BUSINESS SERVICES REPRESENTATIVE??on?12/10/2023?8:20:42 AM END OF DOCUMENT
--- OUTSIDE RECORDS SUMMARY | 2024-03-20 06:52 | XMS_ITS ---
Author Name Idalmis Watt Address [address] [place] [address] Phone [phone] Organization [facility], NA DOCUMENT DISCLAIMER Multiple document versions may exist, please be sure you review the latest version. The information in the [facility] Progress Note Document represents a providers documented clinical note containing certain health and medical information. It may not contain the complete medical history for the patient and should be independently verified. The represented time in the document is Eastern Time PROVIDER ROUNDING NOTE COMPREHENSIVE Patient:?Meghna?Fara,?1945,?78y,?F Dialysis?Location:[place] Attending?Carport Erector:?Carmen Service?Date:?11/26/2023 Service?Provider:?Idalmis?Shukri,? I?met?face?to?face?with?the?patient?today. OVERVIEW The?patient?presented?with?ESRD?on?dialysis Primary?cause?of?renal?failure:?Type?2?diabetes?mellitus&#16 0;with?diabetic?chronic?kidney?disease Comments:?VSS,?seen?on?HD?machine,?denies?needs?for?me today She?has?her?dentures?now.?She?is?to?have?them?adjusted. Medications?and?labs?reviewed. LAST?HOSPITALIZATION Discharge?Diagnosis:?U07.1?Covid-19 J96.01?Acute?respiratory?failure?with?hypoxia Admission?Date?04/29/23 Discharge?Date?05/01/23 DIALYSIS?PRESCRIPTION ??IHD?3x?Week?Start?date:?11/21/23 ??Dialyzer:?180NRe?Optiflux ??BFR:?450 ??DFR:?Autoflow?2 ??Potassium:?2.0 ??Sodium:?137 ??EDW:?124.5 ??Duration:?3:30 ??Calcium:?2.5 ??Bicarb:?36 ??Rx?updated?on:?11/21/2023 TREATMENT?ASSESSMENT Comments:?Stable. BP?Sit?Pre ??11/23/2023:?151/69 ??11/21/2023:?152/71 ??11/19/2023:?137/84 BP?Sit?Post ??11/23/2023:?137/77 ??11/21/2023:?163/106 ??11/19/2023:?186/72 Tx?Duration ??11/23/2023:?3:33 ??11/21/2023:?3:30 ??11/19/2023:?3:34 Missed?Treatments 0?-?last?30?days 0?-?last?60?days FLUID?ASSESSMENT Comments:?Stable. EDW?(kg) ??11/23/2023:?124.5 ??11/21/2023:?127.5 ??11/19/2023:?127.5 Weight?Pre?(kg) ??11/23/2023:?126.6 ??11/21/2023:?127.2 ??11/19/2023:?127.4 Weight?Post?(kg) ??11/23/2023:?124.6 ??11/21/2023:?124.2 ??11/19/2023:?126.0 PWV?(kg) ??11/23/2023:?0.1 ??11/21/2023:?-3.3 ??11/19/2023:?-1.5 UF?Rate?(mL/kg/hr) ??11/23/2023:?4.5 ??11/21/2023:?6.9 ??11/19/2023:?3.1 ADEQUACY?ASSESSMENT Comments:?Stable?at?goal?range. spKt/V,?URR ??11/21/2023:?1.42,?71.0 ??11/07/2023:?1.34,?70.0 ??10/31/2023:?1.34,?71.0 ACCESS?ASSESSMENT ??Access?Type:?AVFistula ??Access?SubType:?Transposed ??Access?Status:?Active?(In?Use)?-?11/06/2022 ??Access?Location:?Left?Upper?Arm ??Created:?01/27/2022 Flow ??11/14/2023:?1458 ??10/17/2023:?1165 ??08/20/2023:?>2000 ANEMIA?ASSESSMENT Comments:?On?IV?iron?and?CHANDRAKANT?protocol. On?max?dose?of?Micera. Hgb?is?coming?up. May?need?to?change?to?epogen. HGB ??11/21/2023:?9.6 ??11/14/2023:?9.3 ??11/07/2023:?9.2 ?? Ferritin ??10/03/2023:?1089.0 ??08/15/2023:?1029.0 ??07/27/2023:?1199.0 Mircera,?IVP?(mcg) ??11/12/2023:?225 ??10/29/2023:?225 ??10/15/2023:?225 Iron?Sucrose?(Venofer)?(mg) ??11/21/2023:?50 ??11/16/2023:?100 ??11/14/2023:?100 BMM?ASSESSMENT Comments:?Stable?at?goal?range. PTH,?Intact ??10/03/2023:?389.0 ??07/04/2023:?251.0 ?? Calcium,?Phosphorus ??10/31/2023:?8.5,?3.9 ??10/03/2023:?8.9,?3.3 ??09/05/2023:?8.5,?- NUTRITION?ASSESSMENT Comments:?Stable. Potassium,?Albumin ??10/31/2023:?4.4,?4.2 ??10/03/2023:?5.4,?4.2 ??08/29/2023:?5.0,?4.2 ?? eNPCR ??11/21/2023:?0.76 ??11/07/2023:?0.7 ??10/31/2023:?0.78 PHYSICAL?EXAM Comments:?Left?BKA Exam?Performed.?Vital?Signs?Reviewed.?EXT?-?1+?edema. 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 Patient?data?updated?11/26/2023?at?11:19?AM Signed?By:?Shukri,?Idalmis???on?11/26/2023?11:20:23?AM END OF DOCUMENT
--- OUTSIDE RECORDS SUMMARY | 2024-03-20 06:52 | XMS_ITS ---
Author Name Idalmis Watt Address [address] [place] [id number] Phone [phone] Organization [facility] e, NA DOCUMENT DISCLAIMER Multiple document versions may exist, please be sure you review the latest version. The information in the [facility] Progress Note Document represents a providers documented clinical note containing certain health and medical information. It may not contain the complete medical history for the patient and should be independently verified. The represented time in the document is Eastern Time PROVIDER ROUNDING NOTE COMPREHENSIVE Patient:?Meghna?Fara,?1945,?78y,?F Dialysis?Location:?[place] Attending?Warehouse Director:?Carmen Service?Date:?12/24/2023 Service?Provider:?Idalmis?Shukri,? I?met?face?to?face?with?the?patient?today. 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 LAST?HOSPITALIZATION Discharge?Diagnosis:?U07.1?Covid-19 J96.01?Acute?respiratory?failure?with?hypoxia Admission?Date?04/29/23 Discharge?Date?05/01/23 DIALYSIS?PRESCRIPTION ??IHD?3x?Week?Start?date:?12/14/23 ??Dialyzer:?180NRe?Optiflux ??BFR:?450 ??DFR:?Autoflow?2 ??Potassium:?2.0 ??Sodium:?137 ??EDW:?120.4 ??Duration:?3:30 ??Calcium:?2.5 ??Bicarb:?36 ??Rx?updated?on:?12/14/2023 TREATMENT?ASSESSMENT Comments:?Stable. BP?Sit?Pre ??12/21/2023:?130/90 ??12/19/2023:?152/67 ??12/17/2023:?164/75 BP?Sit?Post ??12/21/2023:?179/77 ??12/19/2023:?131/65 ??12/17/2023:?154/74 Tx?Duration ??12/21/2023:?3:34 ??12/19/2023:?3:32 ??12/17/2023:?3:33 Missed?Treatments 0?-?last?30?days 0?-?last?60?days FLUID?ASSESSMENT Comments:?Stable. EDW?(kg) ??12/21/2023:?120.4 ??12/19/2023:?120.4 ??12/17/2023:?120.4 Weight?Pre?(kg) ??12/21/2023:?121.6 ??12/19/2023:?121.4 ??12/17/2023:?122.0 Weight?Post?(kg) ??12/21/2023:?120.6 ??12/19/2023:?120.0 ??12/17/2023:?121.0 PWV?(kg) ??12/21/2023:?0.2 ??12/19/2023:?-0.4 ??12/17/2023:?0.6 UF?Rate?(mL/kg/hr) ??12/21/2023:?2.3 ??12/19/2023:?3.3 ??12/17/2023:?2.3 ADEQUACY?ASSESSMENT Adequacy?target?met.?Prescription?compliance?acceptable.? spKt/V,?URR ??12/05/2023:?1.5,?73.0 ??11/21/2023:?1.42,?71.0 ??11/07/2023:?1.34,?70.0 ACCESS?ASSESSMENT ??Access?Type:?AVFistula ??Access?SubType:?Transposed ??Access?Status:?Active?(In?Use)?-?11/06/2022 ??Access?Location:?Left?Upper?Arm ??Created:?01/27/2022 Flow ??12/17/2023:?1267 ??11/14/2023:?1458 ??10/17/2023:?1165 Vascular?access?reviewed. ANEMIA?ASSESSMENT Comments:?On?IV?iron?and?CHANDRAKANT?protocol. On?max?dose?of?Micera. Hgb?is?coming?up. May?need?to?change?to?epogen.?? Continue?to?monitor HGB,?TSAT ??12/19/2023:?10.2,?- ??12/12/2023:?9.7,?- ??12/05/2023:?10.1,?23.0 ?? Ferritin ??10/03/2023:?1089.0 ??08/15/2023:?1029.0 ??07/27/2023:?1199.0 Mircera,?IVP?(mcg) ??12/10/2023:?225 ??11/26/2023:?225 ??11/12/2023:?225 Iron?Sucrose?(Venofer)?(mg) ??12/21/2023:?100 ??12/19/2023:?100 ??12/17/2023:?100 BMM?ASSESSMENT Comments:? Stable. Continue?on?current?BMM?medications. PTH,?Intact ??10/03/2023:?389.0 ??07/04/2023:?251.0 ?? Calcium,?Phosphorus ??12/05/2023:?9.5,?3.6 ??10/31/2023:?8.5,?3.9 ??10/03/2023:?8.9,?3.3 NUTRITION?ASSESSMENT Comments:?Stable. Potassium,?Albumin ??12/05/2023:?4.4,?4.4 ??10/31/2023:?4.4,?4.2 ??10/03/2023:?5.4,?4.2 ?? 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 Exam?Performed.?Vital?Signs?Reviewed.?CV?-?Blood?pressure&#1 60;noted.?EXT?-?1+?edema.?EXT?-?No?ulcers. 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 Continue?on?current?medications?for?BMM. Patient?data?updated?12/24/2023?at?10:37?AM Signed?By:?Shukri,?Idalmis???on?12/24/2023?10:42:04?AM END OF DOCUMENT
--- OUTSIDE RECORDS SUMMARY | 2024-03-20 06:52 | XMS_ITS ---
Author Name Abby Ilene Address [address] [place] [address] Phone [phone] Organization [facility] e, NA DOCUMENT DISCLAIMER Multiple document versions may exist, please be sure you review the latest version. The information in the [facility] Progress Note Document represents a providers documented clinical note containing certain health and medical information. It may not contain the complete medical history for the patient and should be independently verified. The represented time in the document is Eastern Time PROVIDER ROUNDING NOTE COMPREHENSIVE Patient:?Meghna?Fara,?1945,?78y,?F Dialysis?Location:[place] Attending?Head Correction Officer:?Carmen Service?Date:?10/08/2023 Service?Provider:?Ilene?Abby,?FILTRATION PL[employer] MECHANIC I?met?face?to?face?with?the?patient?today. 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 LAST?HOSPITALIZATION Discharge?Diagnosis:?U07.1?Covid-19 J96.01?Acute?respiratory?failure?with?hypoxia Admission?Date?04/29/23 Discharge?Date?05/01/23 DIALYSIS?PRESCRIPTION ??IHD?3x?Week?Start?date:?09/26/23 ??Dialyzer:?180NRe?Optiflux ??BFR:?450 ??DFR:?Autoflow?2 ??Potassium:?2.0 ??Sodium:?137 ??EDW:?127 ??Duration:?3:30 ??Calcium:?2.5 ??Bicarb:?36 ??Rx?updated?on:?09/26/2023 TREATMENT?ASSESSMENT Comments:?Stable. BP?Sit?Pre ??10/05/2023:?161/104 ??10/03/2023:?116/77 ??10/01/2023:?162/74 BP?Sit?Post ??10/05/2023:?187/63 ??10/03/2023:?175/71 ??10/01/2023:?175/70 Tx?Duration ??10/05/2023:?3:35 ??10/03/2023:?3:33 ??10/01/2023:?3:34 Missed?Treatments 1?-?last?30?days 2?-?last?60?days 09/23?-?recent FLUID?ASSESSMENT EDW?(kg) ??10/05/2023:?127.0 ??10/03/2023:?127.0 ??10/01/2023:?127.0 Weight?Pre?(kg) ??10/05/2023:?127.4 ??10/03/2023:?129.9 ??10/01/2023:?132.4 Weight?Post?(kg) ??10/05/2023:?127.0 ??10/03/2023:?126.4 ??10/01/2023:?130.0 PWV?(kg) ??10/05/2023:?0.0 ??10/03/2023:?-0.6 ??10/01/2023:?3.0 UF?Rate?(mL/kg/hr) ??10/05/2023:?0.9 ??10/03/2023:?7.8 ??10/01/2023:?5.2 ADEQUACY?ASSESSMENT Adequacy?target?met.?Prescription?compliance?acceptable.?No?changes?indicated.? spKt/V,?URR ??10/03/2023:?1.4,?70.0 ??08/29/2023:?1.51,?73.0 ??08/01/2023:?1.35,?69.0 ACCESS?ASSESSMENT ??Access?Type:?AVFistula ??Access?SubType:?Transposed ??Access?Status:?Active?(In?Use)?-?11/06/2022 ??Access?Location:?Left?Upper?Arm ??Created:?01/27/2022 Flow ??08/20/2023:?>1999 ??08/15/2023:?>1999 ??07/13/2023:?1730 Vascular?access?reviewed.?Current?access?is?permanent?and?functioning?well. ANEMIA?ASSESSMENT Comments:?On?IV?iron?and?CHANDRAKANT?protocol. HGB?at?goal.? HGB,?TSAT ??10/03/2023:?9.1,?19.0 ??09/26/2023:?8.8,?- ??09/19/2023:?8.6,?- ?? Ferritin ??10/03/2023:?1089.0 ??08/15/2023:?1029.0 ??07/27/2023:?1199.0 Mircera,?IVP?(mcg) ??09/17/2023:?200 ??09/03/2023:?200 ??08/20/2023:?200 Iron?Sucrose?(Venofer)?(mg) ??10/03/2023:?50 ??09/26/2023:?50 ??09/19/2023:?50 BMM?ASSESSMENT PTH?controlled.?Calcium?controlled.?Phosphorus?controlled.?No?chayo nges?indicated.? PTH,?Intact ??10/03/2023:?389.0 ??07/04/2023:?251.0 ??04/04/2023:?287.0 ?? Calcium,?Phosphorus ??10/03/2023:?8.9,?3.3 ??09/05/2023:?8.5,?- ??08/29/2023:?7.6,?6.2 NUTRITION?ASSESSMENT Potassium?controlled.?Albumin?controlled.?No?changes?indicated.? Potassium,?Albumin ??10/03/2023:?5.4,?4.2 ??08/29/2023:?5.0,?4.2 ??08/01/2023:?5.8,?4.5 ?? 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 DIAGNOSIS Chief?Complaint:?N18.6?End?stage?renal?disease Patient?data?updated?10/08/2023?at?8:30?AM Signed?By:?Abby,?Ilene,?FILTRATION PLANT MECHANIC??on?10/08/2023?8:32:27 AM END OF DOCUMENT
--- OUTSIDE RECORDS SUMMARY | 2024-03-20 06:53 | XMS_ITS ---
Author Name Ilene Mora Address [address] [place] [address] Phone [phone] Organization [facility] e, NA DOCUMENT DISCLAIMER Multiple document versions may exist, please be sure you review the latest version. The information in the [facility] Progress Note Document represents a providers documented clinical note containing certain health and medical information. It may not contain the complete medical history for the patient and should be independently verified. The represented time in the document is Eastern Time PROVIDER ROUNDING NOTE BASIC Patient:?Meghna?Fara,?1945,?78y,?F Dialysis?Location:?[place] Attending?Live Games Dealer:?Carmen Service?Date:?01/09/2024 Service?Provider:?Ilene?Abby,?OFFICE ASSISTANCE I?met?face?to?face?with?the?patient?today. OVERVIEW The?patient?presented?with?ESRD?on?dialysis Primary?cause?of?renal?failure:?Type?2?diabetes?mellitus&#16 0;with?diabetic?chronic?kidney?disease Comments:?VSS,?seen?on?HD?machine, COVID?+,?mask?in?place,?NAD Medications?and?labs?reviewed. LAST?HOSPITALIZATION Discharge?Diagnosis:?U07.1?Covid-19 J96.01?Acute?respiratory?failure?with?hypoxia Admission?Date?04/29/23 Discharge?Date?05/01/23 DIALYSIS?PRESCRIPTION ??IHD?3x?Week?Start?date:?01/02/24 ??Dialyzer:?180NRe?Optiflux ??BFR:?450 ??DFR:?Autoflow?2 ??Potassium:?2.0 ??Sodium:?137 ??EDW:?117.4 ??Duration:?3:30 ??Calcium:?2.5 ??Bicarb:?36 ??Rx?updated?on:?01/02/2024 TREATMENT?ASSESSMENT Comments:?Stable. BP?Sit?Pre ??01/07/2024:?164/84 ??01/04/2024:?151/67 ??01/02/2024:?172/76 BP?Sit?Post ??01/07/2024:?122/90 ??01/04/2024:?152/72 ??01/02/2024:?144/77 Tx?Duration ??01/07/2024:?3:33 ??01/04/2024:?3:36 ??01/02/2024:?3:33 Missed?Treatments 0?-?last?30?days 0?-?last?60?days FLUID?ASSESSMENT Comments:?Stable. EDW?(kg) ??01/07/2024:?117.4 ??01/04/2024:?117.4 ??01/02/2024:?118.0 Weight?Pre?(kg) ??01/07/2024:?119.4 ??01/04/2024:?119.4 ??01/02/2024:?117.4 Weight?Post?(kg) ??01/07/2024:?115.8 ??01/04/2024:?117.4 ??01/02/2024:?117.4 PWV?(kg) ??01/07/2024:?-1.6 ??01/04/2024:?0.0 ??01/02/2024:?-0.6 UF?Rate?(mL/kg/hr) ??01/07/2024:?8.8 ??01/04/2024:?4.7 ??01/02/2024:?0 ADEQUACY?ASSESSMENT Adequacy?target?met.?Prescription?compliance?acceptable.?No?changes?indicated.? spKt/V,?URR ??01/02/2024:?1.53,?75.0 ??12/05/2023:?1.5,?73.0 ??11/21/2023:?1.42,?71.0 ACCESS?ASSESSMENT ??Access?Type:?AVFistula ??Access?SubType:?Transposed ??Access?Status:?Active?(In?Use)?-?11/06/2022 ??Access?Location:?Left?Upper?Arm ??Created:?01/27/2022 Flow ??12/17/2023:?1267 ??11/14/2023:?1458 ??10/17/2023:?1165 Vascular?access?reviewed.?Current?access?is?permanent?and?functioning?well. ANEMIA?ASSESSMENT Comments:?On?IV?iron?and?CHANDRAKANT?protocol. On?max?dose?of?Micera. Hgb?is?coming?up. Continue?to?monitor HGB?at?goal.? HGB,?TSAT ??01/02/2024:?10.8,?25.0 ??12/26/2023:?10.6,?- ??12/19/2023:?10.2,?- ?? Ferritin ??01/02/2024:?1492.0 ??10/03/2023:?1089.0 ??08/15/2023:?1029.0 Mircera,?IVP?(mcg) ??01/07/2024:?225 ??12/24/2023:?225 ??12/10/2023:?225 Iron?Sucrose?(Venofer)?(mg) ??01/07/2024:?50 ??12/31/2023:?50 ??12/24/2023:?50 BMM?ASSESSMENT Comments:? Stable. Continue?on?current?BMM?medications. PTH,?Intact ??01/02/2024:?281.0 ??10/03/2023:?389.0 ??07/04/2023:?251.0 ?? Calcium,?Phosphorus ??01/02/2024:?8.9,?4.0 ??12/05/2023:?9.5,?3.6 ??10/31/2023:?8.5,?3.9 NUTRITION?ASSESSMENT Comments:?Stable. Potassium,?Albumin ??01/02/2024:?4.4,?4.2 ??12/05/2023:?4.4,?4.4 ??10/31/2023:?4.4,?4.2 ?? 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 Exam?Not?Performed. DIAGNOSIS Chief?Complaint:?N18.6?End?stage?renal?disease Patient?data?updated?01/09/2024?at?9:04?AM Signed?By:?Abby,?Ilene,?OFFICE ASSISTANCE??on?01/09/2024?9:06:03 AM END OF DOCUMENT
--- OUTSIDE RECORDS SUMMARY | 2024-03-20 06:53 | XMS_ITS ---
Author Name Ilene Mora Address [address] [place] [address] Phone [phone] Organization [facility] e, NA DOCUMENT DISCLAIMER Multiple document versions may exist, please be sure you review the latest version. The information in the [facility] Progress Note Document represents a providers documented clinical note containing certain health and medical information. It may not contain the complete medical history for the patient and should be independently verified. The represented time in the document is Eastern Time PROVIDER ROUNDING NOTE BASIC Patient:?Meghna?Fara,?1945,?78y,?F Dialysis?Location:?[place] Attending?Oxidation Operator:?Carmen Service?Date:?02/04/2024 Service?Provider:?Ilene?Abby,?SWEATER OPERATOR I?met?face?to?face?with?the?patient?today. 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 Medications?and?labs?reviewed. LAST?HOSPITALIZATION Discharge?Diagnosis:?U07.1?Covid-19 J96.01?Acute?respiratory?failure?with?hypoxia Admission?Date?04/29/23 Discharge?Date?05/01/23 DIALYSIS?PRESCRIPTION ??IHD?3x?Week?Start?date:?01/02/24 ??Dialyzer:?180NRe?Optiflux ??BFR:?450 ??DFR:?Autoflow?2 ??Potassium:?2.0 ??Sodium:?137 ??EDW:?117.4 ??Duration:?3:30 ??Calcium:?2.5 ??Bicarb:?36 ??Rx?updated?on:?01/02/2024 TREATMENT?ASSESSMENT Comments:?Stable. BP?Sit?Pre ??02/01/2024:?153/86 ??01/30/2024:?153/97 ??01/28/2024:?135/54 BP?Sit?Post ??02/01/2024:?162/89 ??01/30/2024:?149/93 ??01/28/2024:?128/70 Tx?Duration ??02/01/2024:?3:34 ??01/30/2024:?3:35 ??01/28/2024:?3:32 Missed?Treatments 1?-?last?30?days 1?-?last?60?days 01/22?-?recent FLUID?ASSESSMENT Comments:?Stable. EDW?(kg) ??02/01/2024:?117.4 ??01/30/2024:?117.4 ??01/28/2024:?117.4 Weight?Pre?(kg) ??02/01/2024:?120.2 ??01/30/2024:?118.0 ??01/28/2024:?120.2 Weight?Post?(kg) ??02/01/2024:?118.6 ??01/30/2024:?118.0 ??01/28/2024:?117.6 PWV?(kg) ??02/01/2024:?1.2 ??01/30/2024:?0.6 ??01/28/2024:?0.2 UF?Rate?(mL/kg/hr) ??02/01/2024:?3.8 ??01/30/2024:?0 ??01/28/2024:?6.3 ADEQUACY?ASSESSMENT Comments:?Recheck:??correlate?with?af.? spKt/V,?URR ??01/30/2024:?1.37,?72.0 ??01/02/2024:?1.53,?75.0 ??12/05/2023:?1.5,?73.0 ACCESS?ASSESSMENT ??Access?Type:?AVFistula ??Access?SubType:?Transposed ??Access?Status:?Active?(In?Use)?-?11/06/2022 ??Access?Location:?Left?Upper?Arm ??Created:?01/27/2022 Flow ??01/14/2024:?751 ??12/17/2023:?1267 ??11/14/2023:?1458 Comments:?Review?off?January?levels?to?assess?for?needed intervention Vascular?access?reviewed. ANEMIA?ASSESSMENT Comments:?On?IV?iron?and?CHANDRAKANT?protocol. On?max?dose?of?Micera. Hgb?is?stable Continue?to?monitor HGB?at?goal.? HGB,?TSAT ??01/30/2024:?10.6,?32.0 ??01/25/2024:?10.8,?- ??01/16/2024:?10.8,?- ?? Ferritin ??01/02/2024:?1492.0 ??10/03/2023:?1089.0 ??08/15/2023:?1029.0 Mircera,?IVP?(mcg) ??01/21/2024:?200 ??01/07/2024:?225 ??12/24/2023:?225 Iron?Sucrose?(Venofer)?(mg) ??01/28/2024:?50 ??01/21/2024:?50 ??01/14/2024:?50 BMM?ASSESSMENT PTH?controlled.?Calcium?controlled.?Phosphorus?controlled.?BMM?me ds?adherence?acceptable.?No?changes?indicated.? PTH,?Intact ??01/02/2024:?281.0 ??10/03/2023:?389.0 ?? Calcium,?Phosphorus ??01/30/2024:?8.8,?4.8 ??01/02/2024:?8.9,?4.0 ??12/05/2023:?9.5,?3.6 NUTRITION?ASSESSMENT Potassium?controlled.?Albumin?controlled.?No?changes?indicated.? Potassium,?Albumin ??01/30/2024:?4.5,?3.9 ??01/02/2024:?4.4,?4.2 ??12/05/2023:?4.4,?4.4 ?? 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 Exam?Not?Performed. DIAGNOSIS Chief?Complaint:?N18.6?End?stage?renal?disease Patient?data?updated?02/04/2024?at?7:27?AM Signed?By:?Abby,?Ilene,?SWEATER OPERATOR??on?02/04/2024?7:30:34 AM END OF DOCUMENT
--- OUTSIDE RECORDS SUMMARY | 2024-03-20 06:53 | XMS_ITS ---
Author Name Ilene Mora Address [address] [place] [address] Phone [phone] Organization [facility] e, NA DOCUMENT DISCLAIMER Multiple document versions may exist, please be sure you review the latest version. The information in the [facility] Progress Note Document represents a providers documented clinical note containing certain health and medical information. It may not contain the complete medical history for the patient and should be independently verified. The represented time in the document is Eastern Time PROVIDER ROUNDING NOTE COMPREHENSIVE Patient:?Meghna?Fara,?1945,?78y,?F Dialysis?Location:[place] Attending?Graphic Arts Instructor:?Carmen Service?Date:?03/05/2024 Service?Provider:?Ilene?Abby,?DISABILITY COORDINATOR I?met?face?to?face?with?the?patient?today. 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 Went?out?yesterday?with?family?to?vote,?and?socialize.? ?Very?happy?today?that?she?had?an?outing?yesterday. Medications?and?labs?reviewed. LAST?HOSPITALIZATION Discharge?Diagnosis:?U07.1?Covid-19 J96.01?Acute?respiratory?failure?with?hypoxia Admission?Date?04/29/23 Discharge?Date?05/01/23 DIALYSIS?PRESCRIPTION ??IHD?3x?Week?Start?date:?03/03/24 ??Dialyzer:?180NRe?Optiflux ??BFR:?450 ??DFR:?Autoflow?2 ??Potassium:?2.0 ??Sodium:?137 ??EDW:?113 ??Duration:?3:30 ??Calcium:?2.5 ??Bicarb:?36 ??Rx?updated?on:?03/03/2024 TREATMENT?ASSESSMENT Comments:?Add?lisinopril?10?mg?qhs. [place]?BP?logs?with?SBP?mainly?140-150s. BP?Sit?Pre ??03/03/2024:?158/87 ??02/29/2024:?137/74 ??02/27/2024:?107/68 BP?Sit?Post ??03/03/2024:?144/84 ??02/29/2024:?140/86 ??02/27/2024:?175/107 Tx?Duration ??03/03/2024:?3:32 ??02/29/2024:?3:33 ??02/27/2024:?3:52 Missed?Treatments 0?-?last?30?days 1?-?last?60?days 01/22?-?recent FLUID?ASSESSMENT Comments:?Stable. EDW?(kg) ??03/03/2024:?113.8 ??02/29/2024:?116.0 ??02/27/2024:?116.0 Weight?Pre?(kg) ??03/03/2024:?114.2 ??02/29/2024:?114.8 ??02/27/2024:?114.5 Weight?Post?(kg) ??03/03/2024:?113.0 ??02/29/2024:?112.8 ??02/27/2024:?113.8 PWV?(kg) ??03/03/2024:?-0.8 ??02/29/2024:?-3.2 ??02/27/2024:?-2.2 UF?Rate?(mL/kg/hr) ??03/03/2024:?3 ??02/29/2024:?5 ??02/27/2024:?1.6 ADEQUACY?ASSESSMENT Comments:?No?new?labs?to?review spKt/V,?URR ??01/30/2024:?1.37,?72.0 ??01/02/2024:?1.53,?75.0 ??12/05/2023:?1.5,?73.0 ACCESS?ASSESSMENT ??Access?Type:?AVFistula ??Access?SubType:?Transposed ??Access?Status:?Active?(In?Use)?-?11/06/2022 ??Access?Location:?Left?Upper?Arm ??Created:?01/27/2022 Flow ??02/15/2024:?855 ??01/14/2024:?751 ??12/17/2023:?1267 Vascular?access?reviewed.?Current?access?is?permanent?and?functioning?well. ANEMIA?ASSESSMENT Comments:?On?IV?iron?and?CHANDRAKANT?protocol. On?max?dose?of?Micera. Hgb?is?stable Continue?to?monitor HGB?at?goal.? HGB ??02/27/2024:?10.6 ??02/20/2024:?11.4 ??02/13/2024:?10.9 ?? Ferritin ??01/02/2024:?1492.0 ??10/03/2023:?1089.0 Mircera,?IVP?(mcg) ??03/03/2024:?150 ??02/18/2024:?200 ??02/04/2024:?200 Iron?Sucrose?(Venofer)?(mg) ??02/04/2024:?50 ??01/28/2024:?50 ??01/21/2024:?50 BMM?ASSESSMENT Comments:?No?new?labs?to?review PTH,?Intact ??01/02/2024:?281.0 ??10/03/2023:?389.0 ?? Calcium,?Phosphorus ??01/30/2024:?8.8,?4.8 ??01/02/2024:?8.9,?4.0 ??12/05/2023:?9.5,?3.6 NUTRITION?ASSESSMENT Comments:?No?new?labs?to?review Potassium,?Albumin ??01/30/2024:?4.5,?3.9 ??01/02/2024:?4.4,?4.2 ??12/05/2023:?4.4,?4.4 ?? 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 Exam?Not?Performed. DIAGNOSIS Chief?Complaint:?N18.6?End?stage?renal?disease Patient?data?updated?03/05/2024?at?7:50?AM Signed?By:?Abby,?Ilene,?DISABILITY COORDINATOR??on?03/05/2024?7:52:00 AM END OF DOCUMENT
--- OUTSIDE RECORDS SUMMARY | 2024-03-20 06:53 | XMS_ITS ---
Author Name Idalmis Watt Address [address] [place] [id number] Phone [phone] Organization [facility], NA DOCUMENT DISCLAIMER Multiple document versions may exist, please be sure you review the latest version. The information in the [facility] Progress Note Document represents a providers documented clinical note containing certain health and medical information. It may not contain the complete medical history for the patient and should be independently verified. The represented time in the document is Eastern Time PROVIDER ROUNDING NOTE COMPREHENSIVE Patient:?Meghna?Fara,?1945,?78y,?F Dialysis?Location:?[place] Attending?Slackman:?Carmen Service?Date:?01/21/2024 Service?Provider:?Idalmis?Shukri,? I?met?face?to?face?with?the?patient?today. OVERVIEW The?patient?presented?with?ESRD?on?dialysis Primary?cause?of?renal?failure:?Type?2?diabetes?mellitus&#16 0;with?diabetic?chronic?kidney?disease Comments:?VSS,?seen?on?HD?machine, Recently?did?have?COVID?but?is?feeling?better?now. Medications?and?labs?reviewed. LAST?HOSPITALIZATION Discharge?Diagnosis:?U07.1?Covid-19 J96.01?Acute?respiratory?failure?with?hypoxia Admission?Date?04/29/23 Discharge?Date?05/01/23 DIALYSIS?PRESCRIPTION ??IHD?3x?Week?Start?date:?01/02/24 ??Dialyzer:?180NRe?Optiflux ??BFR:?450 ??DFR:?Autoflow?2 ??Potassium:?2.0 ??Sodium:?137 ??EDW:?117.4 ??Duration:?3:30 ??Calcium:?2.5 ??Bicarb:?36 ??Rx?updated?on:?01/02/2024 TREATMENT?ASSESSMENT Comments:?Stable. BP?Sit?Pre ??01/18/2024:?145/62 ??01/16/2024:?121/66 ??01/14/2024:?157/67 BP?Sit?Post ??01/18/2024:?138/64 ??01/16/2024:?146/61 ??01/14/2024:?140/60 Tx?Duration ??01/18/2024:?3:30 ??01/16/2024:?3:32 ??01/14/2024:?3:35 Missed?Treatments 0?-?last?30?days 0?-?last?60?days FLUID?ASSESSMENT Comments:?Stable. EDW?(kg) ??01/18/2024:?117.4 ??01/16/2024:?117.4 ??01/14/2024:?117.4 Weight?Pre?(kg) ??01/18/2024:?118.2 ??01/16/2024:?119.8 ??01/14/2024:?122.0 Weight?Post?(kg) ??01/18/2024:?117.8 ??01/16/2024:?117.8 ??01/14/2024:?118.2 PWV?(kg) ??01/18/2024:?0.4 ??01/16/2024:?0.4 ??01/14/2024:?0.8 UF?Rate?(mL/kg/hr) ??01/18/2024:?1 ??01/16/2024:?4.8 ??01/14/2024:?9 ADEQUACY?ASSESSMENT Adequacy?target?met.?Prescription?compliance?acceptable.? spKt/V,?URR ??01/02/2024:?1.53,?75.0 ??12/05/2023:?1.5,?73.0 ??11/21/2023:?1.42,?71.0 ACCESS?ASSESSMENT ??Access?Type:?AVFistula ??Access?SubType:?Transposed ??Access?Status:?Active?(In?Use)?-?11/06/2022 ??Access?Location:?Left?Upper?Arm ??Created:?01/27/2022 Flow ??01/14/2024:?751 ??12/17/2023:?1267 ??11/14/2023:?1458 Vascular?access?reviewed.?Current?access?is?permanent?and?functioning?well. ANEMIA?ASSESSMENT Comments:?On?IV?iron?and?CHANDRAKANT?protocol. On?max?dose?of?Micera. Hgb?is?coming?up. Continue?to?monitor HGB,?TSAT ??01/16/2024:?10.8,?- ??01/09/2024:?10.8,?- ??01/02/2024:?10.8,?25.0 ?? Ferritin ??01/02/2024:?1492.0 ??10/03/2023:?1089.0 ??08/15/2023:?1029.0 Mircera,?IVP?(mcg) ??01/07/2024:?225 ??12/24/2023:?225 ??12/10/2023:?225 Iron?Sucrose?(Venofer)?(mg) ??01/14/2024:?50 ??01/07/2024:?50 ??12/31/2023:?50 BMM?ASSESSMENT Comments:? Stable. Continue?on?current?BMM?medications. PTH?controlled.?Calcium?controlled.?Phosphorus?controlled.? PTH,?Intact ??01/02/2024:?281.0 ??10/03/2023:?389.0 ??07/04/2023:?251.0 ?? Calcium,?Phosphorus ??01/02/2024:?8.9,?4.0 ??12/05/2023:?9.5,?3.6 ??10/31/2023:?8.5,?3.9 NUTRITION?ASSESSMENT Comments:?Stable. Potassium?controlled.?Albumin?controlled.?No?changes?indicated.? Potassium,?Albumin ??01/02/2024:?4.4,?4.2 ??12/05/2023:?4.4,?4.4 ??10/31/2023:?4.4,?4.2 ?? 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 Exam?Performed.?Vital?Signs?Reviewed.?AVF/AVG?Positive?thrill/bruit. 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 5?chronic?kidney?disease?or?end?stage?renal?disease ??Comments:?Stable?HTN?control. 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 Continue?on?current?BMM?medications. Patient?data?updated?01/21/2024?at?10:26?AM Signed?By:?Shukri,?Idalmis???on?01/21/2024?10:29:16?AM END OF DOCUMENT
--- NOTE | 2024-03-20 08:07 | P.PN_ITS ---
Documented by User: Rika Watt 03/20/24 09:19 Subjective 2 Subjective: Patient is a 78 y.o. female on hospital day #2 after presenting with altered mental status/confusion, along with some abdominal pain. Her mentation appears to have improved since yesterday. She still endorses left sided abdominal pain. She underwent dialysis yesterday and does not report any complications. She endorses some discomfort associated with sores on her backside, nurse states she found nothing beyond stage 1 pressure ulcer. Medications: Reviewed: Yes Vitals/I&O/Wt Last Vital Signs Temp 98.4 F 03/20/24 03:48 Pulse 56 L 03/20/24 06:00 Resp 15 03/20/24 05:44 BP 111/69 03/20/24 03:48 Pulse Ox 96 03/20/24 05:44 O2 Del Method Nasal Cannula 03/20/24 03:48 O2 Flow Rate 3 03/19/24 20:00 03/19/24 03/20/24 03/20/24 22:59 06:59 14:59 Intake Total 120 / 170 Output Total 950 / 950 100 / 1050 Balance -830 / -780 -100 / -880 Weight last 48 hrs Weight 249 lb 3.2 oz Weight 254 lb 9 oz Weight 250 lb Physical Exam 2 Narrative: General: Awake and alert. HEENT: Atraumatic and normocephalic. Nasal cannula in place. Cardiovascular: Regular rate and rhythm. No murmur Lungs: Clear to auscultation bilaterally. Abdomen: Soft, but tenderness is noted on left. Positive bowel sounds. No obvious organomegaly. Extremities: 1+ edema right lower extremity. Left below knee amputation. Left upper extremity has AV fistula with positive thrill and bruit. : Puckett currently with 200 cc of urine in the bag that is dark yellow, but cloudiness has improved. Urinary Catheter Management: Puckett: Cath Placed During This Visit: yes Reason for Continuing Indwelling Catheter: Acute Urinary Retention or Obstruction Urinary Catheter Date of Insertion: 03/19/24 Urinary Catheter Time of Insertion: 09:45 Data 03/20/24 04:29 03/20/24 04:29 Micro: Microbiology 03/19/24 10:20 Blood Culture - Preliminary Blood SPECIMEN COLLECTED 03/19/24 09:44 Blood Culture - Preliminary Blood SPECIMEN COLLECTED A&P Assessment and plan (1) Complicated UTI (urinary tract infection): Patient presented with complicated UTI, acute encephalopathy, and urinary retention 700 cc was drained in the ER with Puckett placement Continue Puckett for now. Contained 200mL of non-cloudy dark yellow urine this morning. Continue meropenem Blood and urine cultures collected yesterday. Negative to date. CT demonstrated no evidence of urinary obstruction Appears to be improving Will need culture results prior to contemplation of discharge (2) Acute encephalopathy: Patient presents with acute encephalopathy, presumably from acute UTI although patient on multiple medications which could also contribute Reduce Neurontin and other medications that could contribute to encephalopathy Seems to be approaching her baseline cognition (3) Chronic pain: Patient with history of chronic pain She is on fentanyl, oxycodone, Dilaudid, hydrocodone. Many of these are as needed. According to patient plan was to discontinue fentanyl, using scheduled Dilaudid For now considering her current presentation will reduce fentanyl to 50 mcg, use Dilaudid as needed, and reassess for other pain medication needs. Addition of senna as she has evidence of some constipation on her CT (4) Anemia of chronic disease: Patient with history of anemia. Macrocytic. TSH, B12, and folate all WNL. (5) Diabetes mellitus type 2, insulin dependent: Sliding scale insulin currently Reassess to restart long-acting insulin depending upon blood sugars. Consistent carb diet (6) ESRD on hemodialysis: Nephrology consultation appreciated Underwent dialysis yesterday without complication. Plan for dialysis again tomorrow. She typically receives dialysis Sunday Plan Multiple other medical problems as outlined in past medical history Allow natural Heparin will be used for DVT prophylaxis Coding Level of Care Code 63695 Diagnoses Complicated UTI (urinary tract infection) N39.0 Acute encephalopathy G93.40 Chronic pain G89.29 Anemia of chronic disease D63.8 Diabetes mellitus type 2, insulin dependent E11.9; Z79.4 ESRD on hemodialysis N18.6; Z99.2 Time Spent (min) 24 Documented by User: Westley Escalera MD 03/20/24 09:44 Physical Exam 2 Urinary Catheter Management: Puckett: Cath Placed During This Visit: yes Data 03/20/24 04:29 03/20/24 04:29 A&P Assessment and plan (1) Complicated UTI (urinary tract infection): (2) Acute encephalopathy: Patient presents with acute encephalopathy, presumably from acute UTI although patient on multiple medications which could also contribute Neurontin was reduced Seems to be approaching her baseline cognition (3) Chronic pain: Patient with history of chronic pain She is on fentanyl, oxycodone, Dilaudid, hydrocodone. Many of these are as needed. According to patient plan was to discontinue fentanyl, using scheduled Dilaudid Yesterday reduced her fentanyl to 50 mcg. Continue Dilaudid to use as needed. Senna was added as she has evidence of some constipation on her CT Add lactulose (4) Anemia of chronic disease: (5) Diabetes mellitus type 2, insulin dependent: (6) ESRD on hemodialysis: Attestations 2 Medical Necessity Statement*: Needs continued hospitalization for IV antibiotics secondary UTI, complicated, awaiting culture. Diagnoses Complicated UTI (urinary tract infection) N39.0 Acute encephalopathy G93.40 Chronic pain G89.29 Anemia of chronic disease D63.8 Diabetes mellitus type 2, insulin dependent E11.9; Z79.4 ESRD on hemodialysis N18.6; Z99.2 Time Spent (min) 24
[2024-03-20] MEDS: pantoprazole DR 40 mg Tablet PO ×2 (08:37→17:31)
[2024-03-20] MEDS: gabapentin 100 mg Capsule PO ×3 (08:37→21:05)
[2024-03-20] MEDS: cetirizine 10 mg Tablet PO (08:37)
[2024-03-20] MEDS: sevelamer 800 mg Tablet 1600 MG PO ×3 (08:38→21:05)
[2024-03-20] MEDS: levothyroxine 150 mcg Tablet PO (08:38)
[2024-03-20] MEDS: FUROsemide 40 mg Tablet PO ×2 (08:39→17:31)
[2024-03-20] MEDS: sennosides-docusate Tablet 1 TAB PO ×2 (08:40→17:31)
[2024-03-20] MEDS: sucralfate 1 gm Tablet PO ×2 (08:40→17:30)
[2024-03-20] MEDS: docusate sodium 100 mg Capsule PO (08:40)
[2024-03-20] MEDS: tizanidine 4 mg Tablet PO (08:40)
[2024-03-20] MEDS: insulin lispro 100 unit/1 mL SUBCUT ×4 (08:41→21:06)
[2024-03-20] MEDS: sertraline 100 mg Tablet PO (08:41)
[2024-03-20] MEDS: ipratropium-albuterol 3 mL Neb INHALATION ×2 (08:58→20:06)
[2024-03-20] MEDS: budesonide 0.5 mg/2 mL Neb INHALATION ×2 (08:58→20:06)
[2024-03-20] MEDS: metoprolol tartrate 50 mg Tablet 100 MG PO ×2 (08:58→17:30)
[2024-03-20 11:05] LABS: Glucose Point of Care 246 mg/dL (70-110)
[2024-03-20] MEDS: meropenem 500 mg SDV IVP ×2 (11:31→22:57)
[2024-03-20] MEDS: heparin 5,000 unit/mL INJ 1 mL 5000 UNIT SUBCUT ×2 (11:32→22:57)
--- NOTE | 2024-03-20 15:19 | P.PN_ITS ---
Subjective 2 Subjective: No new complaints Medications: Reviewed: Yes Vitals/I&O/Wt Last Vital Signs Temp 98.0 F 03/20/24 11:27 Pulse 53 L 03/20/24 14:00 Resp 18 03/20/24 14:12 BP 121/53 03/20/24 11:27 Pulse Ox 95 03/20/24 11:27 O2 Del Method Nasal Cannula 03/20/24 11:27 O2 Flow Rate 3 03/20/24 11:27 03/20/24 03/20/24 03/20/24 06:59 14:59 22:59 Intake Total 180 / 180 Output Total 100 / 1050 Balance -100 / -880 180 / 180 Weight last 48 hrs Weight 113.035 kg Weight 115.468 kg Weight 113.398 kg Physical Exam 2 Narrative: Awake, alert, no distress HEENT S1-S2 regular rate and rhythm per report Lungs clear No edema Urinary Catheter Management: Puckett: Cath Placed During This Visit: yes Reason for Continuing Indwelling Catheter: Acute Urinary Retention or Obstruction Urinary Catheter Date of Insertion: 03/19/24 Urinary Catheter Time of Insertion: 09:45 Data 03/20/24 04:29 03/20/24 04:29 Micro: Microbiology 03/19/24 10:20 Blood Culture - Preliminary Blood NEGATIVE TO DATE 03/19/24 09:44 Blood Culture - Preliminary Blood NEGATIVE TO DATE 03/19/24 06:12 Urine Culture - Preliminary Urine Catheterized A&P Assessment and plan (1) ESRD on hemodialysis: Plan 1. End-stage renal disease: On MWF schedule, HD tomorrow 2. History of hypertension: Resumed home meds 3. Anemia: Will order CHANDRAKANT with HD 4. UTI, antibiotics per primary team started on meropenem 5. Metabolic encephalopathy 6. History of coronary artery disease patient evaluated using audiovisual cart.-40 minutes. Attestations 2 Medical Necessity Statement*: Per medicine team Coding Level of Care Code Acute Code for g Fwd Diagnoses ESRD on hemodialysis N18.6; Z99.2
[2024-03-20 16:44] LABS: Glucose Point of Care 154 mg/dL (70-110)
[2024-03-20] MEDS: lactulose oral liq 20 gm/30 mL UDC 10 GM PO (17:30)
[2024-03-20] MEDS: carbidopa-levodopa 25-100mg Tablet 2 EACH PO (17:30)
[2024-03-20 20:16] LABS: Glucose Point of Care 183 mg/dL (70-110)
[2024-03-20] MEDS: atorvastatin 40 mg Tablet 20 MG PO (21:05)
[2024-03-21] VITALS (16 sets, daily range): BP systolic 116–190; BP diastolic 46–83; PULSE 51–88; RESP 15–18; TEMP 36.5–37; O2SAT 2–98
[2024-03-21] MEDS: metOLazone 5 MG Tablet PO (05:27)
[2024-03-21 05:46] LABS: Basophils # 0.1 10^3/uL (0.0-0.1); Basophils % 0.5 %; Eosinophils # 0.4 10^3/uL (0.0-0.8); Eosinophils % 2.8 %; Hematocrit 32.7 % (36-47); Lymphocytes # 1.1 10^3/uL (0.8-4.8); Lymphocytes % 8.6 %; Mean Corpuscular HGB Conc 29.7 g/dL (30-55); Mean Corpuscular Hemoglobin 31.7 pg (27-33); Mean Corpuscular Volume 106.9 fl (85-98); Mean Platelet Volume 10.7 fL (7.4-10.4); Monocytes % 7.6 %; Neutrophils # 10.18 10^3/uL (1.8-7.7); Neutrophils % 79.8 %; Nucleated Red Blood Cells % 0 %; Platelet Count 245 10^3/cmm (157-399); Red Blood Count 3.06 10^6/uL (3.85-5.65); Red Cell Distribution Width 17.1 % (12.1-15.1); White Blood Count 12.76 10^3/uL (3.29-11.43)
[2024-03-21 06:15] LABS: Alanine Aminotransferase < 5 U/L (0-33); Albumin Level 3.8 g/dL (3.5-5.2); Alkaline Phosphatase 125 U/L (35-105); Aspartate Amino Transferase 8 U/L (0-32); Blood Urea Nitrogen 41 mg/dL (8-23); Calcium 9.2 mg/dL (8.5-10.5); Carbon Dioxide 29 mmol/L (22-29); Chloride 98 mmol/L (98-107); Creatinine Clr Calc Pharmacy 12.7436; Globulin 3.5 g/dL (1.3-4.6); Glucose 155 mg/dL (65-115); Magnesium 1.9 mg/dL (1.7-2.3); Osmolality Calculated 305 mOsm/kg (285-295); Sodium 141 mmol/L (136-145); Total Bilirubin 0.6 mg/dL (0.15-1.2); Total Protein 7.3 g/dL (6.6-8.7)
[2024-03-21 06:21] LABS: Glucose Point of Care 214 mg/dL (70-110)
--- NOTE | 2024-03-21 07:42 | P.PN_ITS ---
Subjective 2 Subjective: getting HD Medications: Reviewed: Yes Vitals/I&O/Wt Last Vital Signs Temp 98.2 F 03/21/24 04:00 Pulse 72 03/21/24 05:43 Resp 18 03/21/24 05:27 BP 184/69 03/21/24 04:00 Pulse Ox 3 L 03/21/24 05:27 O2 Del Method Nasal Cannula 03/20/24 23:51 O2 Flow Rate 3 03/20/24 23:51 03/20/24 03/21/24 03/21/24 22:59 06:59 14:59 Intake Total 440 / 620 550 / 1170 Output Total 325 / 325 100 / 425 Balance 115 / 295 450 / 745 Weight last 48 hrs Weight 116.528 kg Weight 113.035 kg Weight 115.468 kg Physical Exam 2 Narrative: Awake, alert, no distress HEENT S1-S2 regular rate and rhythm per report Lungs clear No edema Urinary Catheter Management: Puckett: Cath Placed During This Visit: yes Reason for Continuing Indwelling Catheter: Acute Urinary Retention or Obstruction Urinary Catheter Date of Insertion: 03/19/24 Urinary Catheter Time of Insertion: 09:45 Data 03/21/24 05:09 03/21/24 05:09 Micro: Microbiology 03/19/24 10:20 Blood Culture - Preliminary Blood NEGATIVE TO DATE 03/19/24 09:44 Blood Culture - Preliminary Blood NEGATIVE TO DATE 03/19/24 06:12 Urine Culture - Preliminary Urine Catheterized A&P Assessment and plan (1) ESRD on hemodialysis: Plan 1. End-stage renal disease: On MWF schedule, HD today 2. History of hypertension: Resumed home meds 3. Anemia: Will order CHANDRAKANT with HD 4. UTI, antibiotics per primary team started on meropenem 5. Metabolic encephalopathy 6. History of coronary artery disease patient evaluated using audiovisual cart.-40 minutes. Attestations 2 Medical Necessity Statement*: per stan Coding Level of Care Code Acute Code for Chg Fwd Diagnoses ESRD on hemodialysis N18.6; Z99.2
[2024-03-21] MEDS: lactulose oral liq 20 gm/30 mL UDC 10 GM PO ×2 (08:22→17:21)
[2024-03-21] MEDS: sertraline 100 mg Tablet PO (08:23)
[2024-03-21] MEDS: sevelamer 800 mg Tablet 1600 MG PO ×3 (08:23→21:09)
[2024-03-21] MEDS: sucralfate 1 gm Tablet PO ×2 (08:24→17:22)
[2024-03-21] MEDS: pantoprazole DR 40 mg Tablet PO ×2 (08:24→17:22)
[2024-03-21] MEDS: FUROsemide 40 mg Tablet PO ×2 (08:24→17:22)
[2024-03-21] MEDS: gabapentin 100 mg Capsule PO ×3 (08:24→21:09)
[2024-03-21] MEDS: sennosides-docusate Tablet 1 TAB PO ×2 (08:24→17:22)
[2024-03-21] MEDS: cetirizine 10 mg Tablet PO (08:24)
[2024-03-21] MEDS: tizanidine 4 mg Tablet PO (08:24)
[2024-03-21] MEDS: levothyroxine 150 mcg Tablet PO (08:24)
[2024-03-21] MEDS: docusate sodium 100 mg Capsule PO (08:25)
[2024-03-21] MEDS: metoprolol tartrate 50 mg Tablet 100 MG PO (08:25)
[2024-03-21] MEDS: diphenhydrAMINE 50 mg/mL SDV 1mL 25 MG IVP (08:30)
[2024-03-21] MEDS: insulin lispro 100 unit/1 mL SUBCUT ×3 (08:32→21:09)
--- NOTE | 2024-03-21 08:35 | PC.HD ---
Heparin 1000 units loading dose administered via venous needle of LAVF at 0820 per botany laboratory assistant's orders. Patient c/o 10/10 left side/rib pain. Per primary RN, pain medication unavailable for 2 more hours.
[2024-03-21 11:19] LABS: Glucose Point of Care 113 mg/dL (70-110)
[2024-03-21] MEDS: meropenem 500 mg SDV IVP ×2 (11:48→22:48)
[2024-03-21] MEDS: heparin 5,000 unit/mL INJ 1 mL 5000 UNIT SUBCUT ×2 (11:48→22:48)
--- NOTE | 2024-03-21 13:09 | PC.HD ---
Due to patient's low BPs during dialysis, dialysate temperature was lowered to 35.0C, and UF rate was lowered to 300 mL/hour. BP remained low but acceptable; patient was asymptmatic throughout. UF goal of 3000 mL was not reached. 2404 mL removed. Package Delivery Room Service Runner notified.
[2024-03-21] MEDS: ALPRAZolam 0.5 mg Tablet PO (15:51)
[2024-03-21 17:00] LABS: Glucose Point of Care 199 mg/dL (70-110)
[2024-03-21] MEDS: carbidopa-levodopa 25-100mg Tablet 2 EACH PO (17:22)
--- NOTE | 2024-03-21 18:55 | P.PN_ITS ---
Subjective 2 Subjective: She was confused earlier but now she feels better. Vitals/I&O/Wt Last Vital Signs Temp 97.9 F 03/21/24 16:00 Pulse 68 03/21/24 16:00 Resp 17 03/21/24 16:00 BP 184/77 03/21/24 16:00 Pulse Ox 97 03/21/24 16:00 O2 Del Method Nasal Cannula 03/21/24 16:00 O2 Flow Rate 4 03/21/24 08:00 03/21/24 03/21/24 03/21/24 06:59 14:59 22:59 Intake Total 550 / 1170 770 / 770 120 / 890 Output Total 100 / 425 2904 / 2904 450 / 3354 Balance 450 / 745 -2134 / -2134 -330 / -2464 Weight last 48 hrs Weight 113.3 kg Weight 116.528 kg Weight 113.035 kg Physical Exam 2 Narrative: Undergoing dialysis. Const: COMMON NORMALS: patient oriented x3 and alert GENERAL APPEARANCE: c ooperative NUTRITIONAL APPEARANCE: obese ORIENTATION/CONSCIOUSNESS: Yes awake HENMT: COMMON NORMALS: oropharynx normal Neck/C-Spine: COMMON NORMALS: no JVD Resp: COMMON NORMALS: normal respiratory effort and clear to auscultation bilaterally AUSCULTATION: clear to auscultation bilaterally Cardio: COMMON NORMALS: no JVD, regular rhythm, S1 normal heart sound present, S2 normal heart sound present and No murmurs present (Cardio) RHYTHM: regular rhythm HEART SOUNDS: S1 normal heart sound present and S2 normal heart sound present GI: COMMON NORMALS: Normal to inspection, nondistended, normoactive bowel sounds present, Soft to palpation and non-tender PALPATION: Yes Soft to palpation Extremity: COMMON NORMALS: no joint enlargement and no pedal edema Neuro: COMMON NORMALS: patient oriented x3 and moves all extremities S ENSORIUM/ORIENTATION: Yes alert Skin: COMMON NORMALS: no rashes or lesions noted GENERAL SKIN EXAM: no rashes or lesions noted Urinary Catheter Management: Puckett: Cath Placed During This Visit: yes Reason for Continuing Indwelling Catheter: Acute Urinary Retention or Obstruction Urinary Catheter Date of Insertion: 03/19/24 Urinary Catheter Time of Insertion: 09:45 Data 03/21/24 05:09 03/21/24 05:09 Micro: Microbiology 03/19/24 06:12 Urine Culture - Final Urine Catheterized A&P Assessment and plan (1) Complicated UTI (urinary tract infection): Reviewed vitals, CBC, CMP, magnesium, blood culture, urine culture. Noted worsening leukocytosis up to 12.76. Afebrile. Cultures pending. So far no growth in urine culture. Monitor for risk of seizure with meropenem. Discussed with nursing, geriatric case manager. Improving metabolic encephalopathy. Recheck CBC, BMP. Patient presented with complicated UTI, acute encephalopathy, and urinary retention 700 cc was drained in the ER with Puckett placement Continue Puckett for now. CT demonstrated no evidence of urinary obstruction (2) Acute encephalopathy: Improving. Patient presents with acute encephalopathy, presumably from acute UTI although patient on multiple medications which could also contribute Neurontin was reduced Seems to be approaching her baseline cognition (3) Chronic pain: Renew reduced dose fentanyl patch at 50 mcg. Renew hydromorphone tablet. Patient with history of chronic pain She is on fentanyl, oxycodone, Dilaudid, hydrocodone. Many of these are as needed. According to patient plan was to discontinue fentanyl, using scheduled Dilaudid Yesterday reduced her fentanyl to 50 mcg. Continue Dilaudid to use as needed. Senna was added as she has evidence of some constipation on her CT lactulose (4) Anemia of chronic disease: Patient with history of anemia. Macrocytic. TSH, B12, and folate all WNL. (5) Diabetes mellitus type 2, insulin dependent: Sliding scale insulin currently Reassess to restart long-acting insulin depending upon blood sugars. Consistent carb diet (6) ESRD on hemodialysis: Reviewed nephrology note Nephrology consultation appreciated Underwent dialysis yesterday without complication. Plan for dialysis again tomorrow. She typically receives dialysis Sunday Plan Multiple other medical problems as outlined in past medical history Allow natural Heparin will be used for DVT prophylaxis Attestations 2 Medical Necessity Statement*: Continue admission for assessment of management of UTI complicated with acute encephalopathy, worsening leukocytosis, LAD with ESRD, diabetes, chronic pain and polypharmacy. and High MDM includes amount and/or complexity of data reviewed/ordered [ previous or external records, resulted lab(s)/test(s), ordered lab(s)/test(s) and other healthcare professional discussion] and described risk of complication, morbidity or mortality of management as documented Diagnoses Complicated UTI (urinary tract infection) N39.0 Acute encephalopathy G93.40 Chronic pain G89.29 Anemia of chronic disease D63.8 Diabetes mellitus type 2, insulin dependent E11.9; Z79.4 ESRD on hemodialysis N18.6; Z99.2
[2024-03-21 20:42] LABS: Glucose Point of Care 192 mg/dL (70-110)
[2024-03-21] MEDS: ipratropium-albuterol 3 mL Neb INHALATION (20:55)
[2024-03-21] MEDS: budesonide 0.5 mg/2 mL Neb INHALATION (20:55)
[2024-03-21] MEDS: atorvastatin 40 mg Tablet 20 MG PO (21:08)
[2024-03-22] VITALS (9 sets, daily range): BP systolic 150–180; BP diastolic 60–90; PULSE 56–79; RESP 16–21; TEMP 36.7–36.8; O2SAT 2–98
[2024-03-22 04:18] LABS: Alanine Aminotransferase < 5 U/L (0-33); Albumin Level 3.8 g/dL (3.5-5.2); Alkaline Phosphatase 124 U/L (35-105); Anion Gap 16.6 (5-19); Aspartate Amino Transferase 9 U/L (0-32); Basophils # 0.1 10^3/uL (0.0-0.1); Basophils % 0.6 %; Blood Urea Nitrogen 32 mg/dL (8-23); Calcium 9.6 mg/dL (8.5-10.5); Carbon Dioxide 31 mmol/L (22-29); Chloride 99 mmol/L (98-107); Creatinine Clr Calc Pharmacy 16.2769; Eosinophils # 0.4 10^3/uL (0.0-0.8); Eosinophils % 3.4 %; Glucose 166 mg/dL (65-115); Hematocrit 32.9 % (36-47); Lymphocytes # 1.3 10^3/uL (0.8-4.8); Lymphocytes % 11.7 %; Mean Corpuscular HGB Conc 29.5 g/dL (30-55); Mean Corpuscular Hemoglobin 30.8 pg (27-33); Mean Corpuscular Volume 104.4 fl (85-98); Mean Platelet Volume 10.5 fL (7.4-10.4); Monocytes # 0.9 10^3/uL (0.2-0.9); Monocytes % 8.3 %; Neutrophils % 75.3 %; Nucleated Red Blood Cells % 0 %; Osmolality Calculated 305 mOsm/kg (285-295); Platelet Count 242 10^3/cmm (157-399); Potassium 4.6 mmol/L (3.5-5.1); Red Blood Count 3.15 10^6/uL (3.85-5.65); Sodium 142 mmol/L (136-145); Total Bilirubin 0.7 mg/dL (0.15-1.2); Total Protein 7.8 g/dL (6.6-8.7); White Blood Count 11.02 10^3/uL (3.29-11.43)
[2024-03-22] MEDS: metOLazone 5 MG Tablet PO (06:06)
[2024-03-22 06:46] LABS: Glucose Point of Care 228 mg/dL (70-110)
[2024-03-22] MEDS: budesonide 0.5 mg/2 mL Neb INHALATION (07:33)
[2024-03-22] MEDS: ipratropium-albuterol 3 mL Neb INHALATION (07:33)
[2024-03-22] MEDS: insulin lispro 100 unit/1 mL SUBCUT ×2 (08:46→12:08)
[2024-03-22] MEDS: lactulose oral liq 20 gm/30 mL UDC 10 GM PO (08:47)
[2024-03-22] MEDS: gabapentin 100 mg Capsule PO ×2 (08:47→15:55)
[2024-03-22] MEDS: FUROsemide 40 mg Tablet PO (08:47)
[2024-03-22] MEDS: cetirizine 10 mg Tablet PO (08:47)
[2024-03-22] MEDS: docusate sodium 100 mg Capsule PO (08:47)
[2024-03-22] MEDS: levothyroxine 150 mcg Tablet PO (08:48)
[2024-03-22] MEDS: sucralfate 1 gm Tablet PO (08:48)
[2024-03-22] MEDS: tizanidine 4 mg Tablet PO (08:48)
[2024-03-22] MEDS: sennosides-docusate Tablet 1 TAB PO (08:48)
[2024-03-22] MEDS: sevelamer 800 mg Tablet 1600 MG PO ×2 (08:48→15:55)
[2024-03-22] MEDS: metoprolol tartrate 50 mg Tablet 100 MG PO (08:48)
[2024-03-22] MEDS: sertraline 100 mg Tablet PO (08:48)
[2024-03-22] MEDS: pantoprazole DR 40 mg Tablet PO (08:48)
--- NOTE | 2024-03-22 10:40 | PM.DCS ---
Discharge Providers Date of Admission: 03/19/24 12:52 Date of Discharge: March 22, 2024 Attending Provider at Admission: Westley Escalera MD Attending Provider at Discharge: Prince Yoon Primary Care Provider: Brandi Escalera MD Diagnoses at Discharge Discharge Diagnosis (1) ESRD on hemodialysis: Status: Acute Reason for Visit Reason for Visit: ams Hospital Course Hospital Course Pleasant 78-year-old lady with history of ESRD on hemodialysis, DM 2, chronic pain, polypharmacy, Parkinson's disease, A-fib, CAD, history of MRSA bacteremia and pneumonia in 2021, history of PE not on anticoagulation secondary to anemia, reported GI bleed, other medical problems, was admitted after presenting with altered mental status, some lower abdominal pain, upper incision found with acute encephalopathy, urinary tract infection. On a number of different pain medications including fentanyl patch, oxycodone, hydrocodone, Dilaudid. Fentanyl was recently stopped. She was started on treatment with meropenem. Urine and blood cultures were collected. During hospitalization medications were reviewed, oxycodone, hydrocodone discontinued, continued on Dilaudid, fentanyl patch dose was decreased to 50 mcg, gabapentin dose was decreased to 100 mg. Acute encephalopathy resolved. Blood cultures so far are remaining negative. Urine culture showed no growth. On review of prior cultures no noted resistant urinary infections. She will complete a brief course with cefdinir. Please follow-up for resolution of UTI, please continue to review and gradually discontinue any nonessential medications. Fentanyl patch dose is decreased to 50 mcg, please continue to wean down to gradually discontinue avoiding withdrawal. Hydrocodone and oxycodone are discontinued. Gabapentin dose is decreased at discharge to 100 mg 3 times daily. Physical Exam Narrative: Awake, alert, lucid and doing well. Ready and looking forward to returning home. Const: COMMON NORMALS: patient oriented x3 and alert GENERAL APPEARANCE: cooperative NUTRITIONAL APPEARANCE: obese ORIENTATION/CONSCIOUSNESS: Yes awake HENMT: COMMON NORMALS: oropharynx normal Neck/C-Spine: COMMON NORMALS: no JVD Resp: COMMON NORMALS: normal respiratory effort and clear to auscultation bilaterally AUSCULTATION: clear to auscultation bilaterally Cardio: COMMON NORMALS: no JVD, regular rhythm, S1 normal heart sound present, S2 normal heart sound present and No murmurs present (Cardio) RHYTHM: regular rhythm HEART SOUNDS: S1 normal heart sound present and S2 normal heart sound present GI: COMMON NORMALS: Normal to inspection, nondistended, normoactive bowel sounds present, Soft to palpation and non-tender PALPATION: Yes Soft to palpation Extremity: COMMON NORMALS: no joint enlargement and no pedal edema Neuro: COMMON NORMALS: patient oriented x3 and moves all extremities SENSORIUM/ORIENTATION: Yes alert Skin: COMMON NORMALS: no rashes or lesions noted GENERAL SKIN EXAM: no rashes or lesions noted Urinary Catheter Management: Puckett: Cath Placed During This Visit: yes Reason for Continuing Indwelling Catheter: Acute Urinary Retention or Obstruction Urinary Catheter Date of Insertion: 03/19/24 Urinary Catheter Time of Insertion: 09:45 Discharge Data Studies Completed and Pending Completed Studies During Hospitalization Category Date Time Status CT abdomen pelvis wo con [id number] Stat Cat Scan 03/19/24 06:[address] abdomen pelvis wo con [id number] Stat Cat Scan 03/19/24 23:[address] head wo con* [id number] Stat Cat Scan 03/19/24 05:41 Completed Pending at discharge Category Date Time Status Blood Culture Stat Lab 03/19/24 10:20 Results Complete Blood Count w/Auto AM LABS Lab 03/23/24 04:00 Ordered Complete Blood Count w/Auto AM LABS Lab 03/24/24 04:00 Ordered Comprehensive Metabolic Panel AM LABS Lab 03/23/24 04:00 Ordered Comprehensive Metabolic Panel AM LABS Lab 03/24/24 04:00 Ordered Radiology Impressions Head CT 03/19/24 05:41 IMPRESSION: No acute intracranial abnormality. Changes of an acute infarct may not be visible on CT for up to 24 to 48 hours. If this is of clinical concern, a follow up examination and/or MRI may be of benefit. ASSESSMENT: ASPECTS ([place] Stroke Program Early CT Score) is 10. Abdomen/Pelvis CT 03/19/24 23:50 IMPRESSION: No acute findings, and other than placement of Puckett catheter within the urinary bladder no significant change compared with the exam done earlier this same day Laboratory Results WBC 11.02 10^3/uL (3.29-11.43) 03/22/24 02:40 RBC 3.15 10^6/uL (3.85-5.65) L 03/22/24 02:40 Hgb 9.70 g/dL (11.27-16.99) L 03/22/24 02:40 Hct 32.9 % (36-47) L 03/22/24 02:40 MCV 104.4 fl (85-98) H 03/22/24 02:40 MCH 30.8 pg (27-33) 03/22/24 02:40 MCHC 29.5 g/dL (30-55) L 03/22/24 02:40 RDW 17.0 % (12.1-15.1) H 03/22/24 02:40 Plt Count 242 10^3/cmm (157-399) 03/22/24 02:40 MPV 10.5 fL (7.4-10.4) H 03/22/24 02:40 Neut % (Auto) 75.3 % 03/22/24 02:40 Lymph % (Auto) 11.7 % 03/22/24 02:40 [place] % (Auto) 8.3 % 03/22/24 02:40 Eos % (Auto) 3.4 % 03/22/24 02:40 Baso % (Auto) 0.6 % 03/22/24 02:40 Neut # (Auto) 8.30 10^3/uL (1.8-7.7) H 03/22/24 02:40 Lymph # (Auto) 1.3 10^3/uL (0.8-4.8) 03/22/24 02:40 [place] # (Auto) 0.9 10^3/uL (0.2-0.9) 03/22/24 02:40 Eos # (Auto) 0.4 10^3/uL (0.0-0.8) 03/22/24 02:40 Baso # (Auto) 0.1 10^3/uL (0.0-0.1) 03/22/24 02:40 Nucleated RBC % (auto) 0 % 03/22/24 02:40 Nucleated RBCs # 0.0 /100WBC 03/22/24 02:40 Sodium 142 mmol/L (136-145) 03/22/24 02:40 Potassium 4.6 mmol/L (3.5-5.1) 03/22/24 02:40 Chloride 99 mmol/L (98-107) 03/22/24 02:40 Carbon Dioxide 31 mmol/L (22-29) H 03/22/24 02:40 Anion Gap 16.6 (5-19) 03/22/24 02:40 BUN 32 mg/dL (8-23) H 03/22/24 02:40 Creatinine 3.7 mg/dL (0.5-0.9) H 03/22/24 02:40 GFR Calculation Not Reportable 03/22/24 02:40 Glucose 166 mg/dL (65-115) H 03/22/24 02:40 POC Glucose 228 mg/dL (70-110) H 03/22/24 06:40 Calculated Osmolality 305 mOsm/kg (285-295) H 03/22/24 02:40 Calcium 9.6 mg/dL (8.5-10.5) 03/22/24 02:40 Magnesium 1.9 mg/dL (1.7-2.3) 03/21/24 05:09 Total Bilirubin 0.7 mg/dL (0.15-1.2) 03/22/24 02:40 AST 9 U/L (0-32) 03/22/24 02:40 ALT < 5 U/L (0-33) 03/22/24 02:40 Alkaline Phosphatase 124 U/L (35-105) H 03/22/24 02:40 Troponin T Baseline 34 ng/L (0-10) H 03/19/24 11:40 Troponin T 120 Minute 31.46 ng/L (0-10) H 03/19/24 13:40 Delta Troponin T -2.54 ABS# (0-10) L 03/19/24 13:40 Troponin T Hi Sens 6Hr 31.90 ng/L (0-10) H 03/19/24 18:06 Troponin T Hi Sens 6Hr Delta -2.10 ng/L (0-12) L 03/19/24 18:06 Total Protein 7.8 g/dL (6.6-8.7) 03/22/24 02:40 Albumin 3.8 g/dL (3.5-5.2) 03/22/24 02:40 Globulin 4.0 g/dL (1.3-4.6) 03/22/24 02:40 Vitamin B12 601 pg/mL (232-1245) 03/19/24 07:23 Folate 18.8 ng/mL (4.8-37.3) 03/19/24 07:23 TSH 1.85 uIU/mL (0.27-4.20) 03/19/24 07:23 Urine Color Yellow (Yellow) 03/19/24 06:12 Urine Appearance Turbid (CLEAR) A 03/19/24 06:12 Urine pH 7.5 (5-7) 03/19/24 06:12 Ur Specific [place] 1.013 (1.005-1.030) 03/19/24 06:12 Urine Protein 3+ (Negative) A 03/19/24 06:12 Urine Glucose (UA) Negative (Normal) 03/19/24 06:12 Urine Ketones Negative (Negative) 03/19/24 06:12 Urine Blood 2+ (Negative) A 03/19/24 06:12 Urine Nitrate Negative (Negative) 03/19/24 06:12 Urine Bilirubin Negative (Negative) 03/19/24 06:12 Urine Urobilinogen 1.0 mg/dL (Negative) 03/19/24 06:12 Ur Leukocyte Esterase 3+ (Negative) A 03/19/24 06:12 Urine RBC 51-100 /hpf (0-2) H 03/19/24 06:12 Urine WBC >100 /hpf (0-5) H 03/19/24 06:12 Ur Squamous Epith Cells 0-5 /hpf (0-5) 03/19/24 06:12 Amorphous Sediment Not Reportable 03/19/24 06:12 Urine Bacteria 1+ /hpf (NONE) H 03/19/24 06:12 Hyaline Casts 0.92 /lpf 03/19/24 06:12 Vitals Last Vital Signs Temp 98.0 F 03/22/24 08:00 Pulse 78 03/22/24 08:00 Resp 18 03/22/24 07:33 BP 170/90 03/22/24 08:00 Pulse Ox 94 03/22/24 08:00 O2 Del Method Nasal Cannula 03/22/24 08:00 O2 Flow Rate 2 03/22/24 08:59 Discharge Plan Discharge Patient Disposition: Xfer SNF Condition: Stable Prescriptions: New fentanyl 50 mcg/hr Patch 72 Hour 1 patch transdermal Q72H Qty: 2 0RF cefdinir 300 mg capsule 300 mg PO BID 5 Days Qty: 10 0RF Continued (DME) [employer] See Rx Instructions .Route .MEDSUPPLY Qty: 1 0RF Rx Instructions: As directed acetaminophen 500 mg Tablet 1,000 mg PO Q8H PRN (Reason: Pain) Qty: 30 0RF bisacodyl 10 mg Suppository 10 mg DC DAILY PRN (Reason: Constipation) vitamin A and D Ointment See Rx Instructions .ROUTE .COMPLEX Rx Instructions: APPLY TOPICALLY AEVERY SHIFT TO BLATERAL BUTTUCK: CLEANSE WITH SOAP AND WATER AND APPLY A AND D OINTMENT FOR SHEER PREVENTION. sucralfate 1 gram tablet 1 g PO BID sertraline 100 mg tablet 100 mg PO DAILY alprazolam [Xanax] 0.5 mg Tablet 0.5 mg PO TID PRN (Reason: Anxiety) pantoprazole 40 mg tablet,delayed release (DR/EC) 40 mg PO BID diphenhydramine HCl [Benadryl] 25 mg Capsule 25 mg PO DAILY PRN (Reason: Itching) docusate sodium [Colace] 100 mg Capsule 100 mg PO DAILY sevelamer carbonate [Renvela] 800 mg Tablet 1,600 mg PO TID Rx Instructions: must administer with a meal/food levothyroxine 150 mcg Tablet 150 mcg PO DAILY trihexyphenidyl 2 mg Tablet 2 mg PO TID Rx Instructions: give with food (meal/snack) cetirizine 10 mg Tablet 10 mg PO DAILY nystatin 100,000 unit/gram Powder 1 applic TOPICAL BID hydromorphone [Dilaudid] 4 mg Tablet 4 mg PO Q4H PRN (Reason: Pain) Rx Instructions: take 1 -2 tablets by mouth every 6 hours as needed fluticasone propionate [Flonase Allergy Relief] 50 mcg/actuation [place],Suspension 1 mcg INTRANASAL BID white petrolatum [Vaseline] Gel 1 applic TOPICAL PRN Rx Instructions: apply to buttock every shift for prevention insulin glargine [Basaglar KwikPen U-100 Insulin] 100 unit/mL (3 mL) Insulin Pen 35 unit SUBCUT BEDTIME Ozempic 0.25 mg or 0.5 mg (2 mg/3 mL) Pen Injector 0.25 mg SUBCUT Q7D tizanidine 4 mg tablet 4 mg PO DAILY furosemide [Lasix] 40 mg Tablet 40 mg PO BID metoprolol tartrate 100 mg Tablet 100 mg PO BID ondansetron HCl 4 mg Tablet 4 mg PO Q6H PRN (Reason: Nausea And Vomiting) clonidine HCl 0.3 mg Tablet 0.3 mg PO Q8H PRN (Reason: systolic bp >160) loperamide [Imodium A-D] 2 mg Tablet 2 mg PO Q6H PRN (Reason: Loose Stool) metolazone 5 mg Tablet 5 mg PO QAM simvastatin 40 mg Tablet 40 mg PO BEDTIME@21 Renal Caps 1 mg Capsule 1 cap PO QPM carbidopa-levodopa 25-100 mg Tablet See Rx Instructions .ROUTE .COMPLEX Rx Instructions: GIVE 3 TABLETS BY MOUTH AT 8 AM AND NOON AND 2 TABLETS AT 6 PM. insulin aspart U-100 [Novolog FlexPen U-100 Insulin] 100 unit/mL (3 mL) Insulin Pen See Rx Instructions .ROUTE .COMPLEX Rx Instructions: sliding scale three times a day. IF BS LESS THAN 60, CALL MD. FOR BS 150-200=3 units 201-250=5 units 251-300=7 units 301-350=9 units 351-400=11 units call provider for bs <60 or >400 solifenacin 5 mg Tablet 5 mg PO QAM fluticasone propion-salmeterol [Advair HFA] 115-21 mcg/actuation Hfa Aerosol Inhaler 2 puff INHALATION BID cholecalciferol (vitamin D3) [Vitamin D3] 50 mcg (2,000 unit) Capsule 6,000 unit PO DAILY [place] 0.01 % Drops 1 drp OPHTHALMIC (EYE) BEDTIME Changed gabapentin 100 mg Capsule 100 mg PO TID Qty: 1 0RF Rx Instructions: Dose change only Discontinued hydrocodone-acetaminophen 10-325 mg tablet See Rx Instructions .ROUTE .COMPLEX Rx Instructions: TAKE 1 TABLET BY MOUTH NEEDED ONLY IF OUT OF OXYCODONE. oxycodone 10 mg tablet 10 mg PO PRN PRN (Reason: Pain) fentanyl 75 mcg/hr patch 72 hour 1 patch transdermal Q72H Qty: 5 0RF Discharge Orders: Discharge Order (Routine); Ordered 03/22/24 Ordered By: Prince Yoon Referrals: Brandi Escalera MD [Primary Care Provider] - 4-7 days (We have notified your physician's clinic of the need for a follow-up appointment to be scheduled. If you have not heard from them within the next 2 business days, please call them directly. FAXED FOR APPOINTMENT) Discharge Diet: Diabetic Patient Instructions: Fentanyl (Absorbed through the skin), Cefdinir (By mouth), Urinary Tract Infection in Women (GEN), Altered Mental Status (ED), Urinary Tract Infection in Older Adults (GEN), Opioid Safety Activity Restrictions/Additional Instructions: Follow-up with your primary provider for reassessment after urinary tract infection. Please continue to work with your primary provider to discontinue any nonessential medications gradually to prevent withdrawal. Fentanyl patch dose is decreased to 50 mcg at current time. Continue to wean off. Seek medical attention in case of any worsening or new concerning symptoms. Discharge Attestations Time Spent in Discharge Care*: greater than 30 min Status at Discharge: Cognitive status at discharge: cognitively intact, Behavioral status at discharge: cooperative, Quality Metrics Clinical Quality Measures [ No reported AMI, CVA or VTE this stay] Coding Level of Care Code 47228 Total time (in minutes) for Discharge: 40 Diagnoses ESRD on hemodialysis N18.6; Z99.2
[2024-03-22 11:40] LABS: Glucose Point of Care 231 mg/dL (70-110)
[2024-03-22] MEDS: fentaNYL 50 mcg Patch 1 PATCH TRANSDERMA (12:07)
[2024-03-22] MEDS: meropenem 500 mg SDV IVP (12:08)
[2024-03-22] MEDS: heparin 5,000 unit/mL INJ 1 mL 5000 UNIT SUBCUT (12:08)
--- NOTE | 2024-03-22 14:06 | PC.ADMIT ---
[facility] Admission Note: The patient,Meghna Chaudhari,78 y/o, was given written information regarding hospital policies, unit procedures and contact persons. Patient's smoking status: former smoker. Vital Signs - 8 hr 03/22/24 07:33 03/22/24 08:00 03/22/24 08:59 Temperature 98.0 F Pulse Rate 77 78 Respiratory Rate 18 Blood Pressure 170/90 Pulse Oximetry 98 94 Oxygen Delivery Method Nasal Cannula Nasal Cannula Oxygen Flow Rate 2 2 2 03/22/24 11:44 Temperature 98.2 F Pulse Rate 62 Respiratory Rate Blood Pressure 150/60 Pulse Oximetry 96 Oxygen Delivery Method Nasal Cannula Oxygen Flow Rate 2
[2024-03-22 16:34] LABS: Glucose Point of Care 160 mg/dL (70-110)
--- NOTE | 2024-03-22 16:43 | P.PN_ITS ---
Subjective 2 Subjective: no new c/o Medications: Reviewed: Yes Vitals/I&O/Wt Last Vital Signs Temp 98.2 F 03/22/24 16:15 Pulse 58 L 03/22/24 16:15 Resp 16 03/22/24 16:15 BP 180/80 03/22/24 16:15 Pulse Ox 91 03/22/24 16:15 O2 Del Method Nasal Cannula 03/22/24 16:15 O2 Flow Rate 2 03/22/24 16:15 03/22/24 03/22/24 03/22/24 06:59 14:59 22:59 Intake Total 240 / 240 Output Total 200 / 3554 325 / 325 Balance -200 / -2064 -85 / -85 Weight last 48 hrs Weight 116.21 kg Weight 113.3 kg Weight 116.528 kg Physical Exam 2 Narrative: Awake, alert, no distress HEENT S1-S2 regular rate and rhythm per report Lungs clear No edema Urinary Catheter Management: Puckett: Cath Placed During This Visit: yes, but has since been removed by the nurse Reason for Continuing Indwelling Catheter: Decision to DC Catheter Urinary Catheter Date of Insertion: 03/19/24 Urinary Catheter Time of Insertion: 09:45 Date Urinary Catheter Removed: 03/22/24 Time Urinary Catheter Discontinued: 13:20 Data 03/22/24 02:40 03/22/24 02:40 Micro: Microbiology 03/19/24 06:12 Urine Culture - Final Urine Catheterized A&P Assessment and plan (1) ESRD on hemodialysis: Plan 1. End-stage renal disease: On MWF schedule, HD onday 2. History of hypertension: Resumed home meds 3. Anemia: Will order CHANDRAKANT with HD 4. UTI, antibiotics per primary team started on meropenem 5. Metabolic encephalopathy 6. History of coronary artery disease patient evaluated using audiovisual cart.-40 minutes. Attestations 2 Medical Necessity Statement*: per medicine Coding Level of Care Code Acute Code for Chg Fwd Diagnoses ESRD on hemodialysis N18.6; Z99.2
--- NOTE | 2024-03-22 17:17 | PC.NURSE ---
Report called to Sobeida at [facility]. IV removed. All questions were answered. Patient transferred to EMS stretcher by this nurse, two CNAs, and EMS staff. All belongings were sent with patient.
== END 2024-03-22 17:15 | disposition skilled nursing facility (03) | DRG 689 ==
LOC: ER 06:30 → MEDSURG 19:35
PROVIDERS: Family Medicine; Admitting Provider Internal Medicine; Emergency Provider Family Medicine; PCP Family Medicine; Visit Provider Internal Medicine
DX: N39.0 Urinary tract infection, site not specified (principal); G93.41 Metabolic encephalopathy; N18.6 End stage renal disease; I13.2 Hypertensive heart and chronic kidney disease with heart failure and with stage 5 chronic kidney disease, or end stage renal disease; E11.22 Type 2 diabetes mellitus with diabetic chronic kidney disease; I50.9 Heart failure, unspecified; Z99.2 Dependence on renal dialysis; E11.21 Type 2 diabetes mellitus with diabetic nephropathy; G89.29 Other chronic pain; G20.A1 Parkinson's disease without dyskinesia, without mention of fluctuations; I48.91 Unspecified atrial fibrillation; I25.10 Atherosclerotic heart disease of native coronary artery without angina pectoris; R33.9 Retention of urine, unspecified; D63.8 Anemia in other chronic diseases classified elsewhere; E03.9 Hypothyroidism, unspecified; E55.9 Vitamin D deficiency, unspecified; E78.5 Hyperlipidemia, unspecified; J44.9 Chronic obstructive pulmonary disease, unspecified; L89.151 Pressure ulcer of sacral region, stage 1; Z86.14 Personal history of Methicillin resistant Staphylococcus aureus infection; Z86.711 Personal history of pulmonary embolism; Z87.891 Personal history of nicotine dependence; Z86.73 Personal history of transient ischemic attack (TIA), and cerebral infarction without residual deficits; Z79.891 Long term (current) use of opiate analgesic; Z79.85 Long-term (current) use of injectable non-insulin antidiabetic drugs; Z79.4 Long term (current) use of insulin
CPT/HCPCS: 36415; 36416; 51702; 70450; 74176; 80053; 81001; 82607; 82746; 82962; 83735; 84443; 84484; 85025; 87040; 87086; 90935; 93005; 94640; 96365; 96372; 99285; J1171; J1200; J1644; J1815; J2185; J2543; J7626; Q3014

== ENCOUNTER 2024-03-30 06:20 | Inpatient (IN) | payer MEDICARE, OTHER, MEDICAID, SELFPAY ==
[2024-03-30] VITALS (22 sets, daily range): BP systolic 163–211; BP diastolic 64–119; PULSE 53–80; RESP 12–24; TEMP 36.3–37.3; O2SAT 84–100; BMI 37.2
--- NOTE | 2024-03-30 06:24 | CTR_ITS ---
PROCEDURE INFORMATION: Exam: CT Head Without Contrast Exam date and time: 03/30/2024 6:21 AM Age: 79 years old Clinical indication: Stroke-like symptoms; Crow upper extremity and crow lower extremity weakness; Additional info: Poss CVA TECHNIQUE: Imaging protocol: Computed tomography of the head without contrast. Radiation optimization: All CT scans at this facility use at least one of these dose optimization techniques: automated exposure control; mA and/or kV adjustment per patient size (includes targeted exams where dose is matched to clinical indication); or iterative reconstruction. Other technique: STROKE PROTOCOL was implemented. COMPARISON: CT head wo con* [id number] 03/19/2024 5:52 AM RADIATION DOSE METRICS: Total DLP (mGy-cm): 1061.58 FINDINGS: Brain: There is moderate cerebral atrophy. There is mild diffuse heterogeneity of the white matter attenuation, consistent with chronic white matter ischemic changes. Gliosis in the right anterior periventricular white matter with some encephalomalacia. Negative for intracranial hemorrhage. Negative for intracranial mass. Negative for midline shift in the brain. Cerebral ventricles: No ventriculomegaly. Paranasal sinuses: Visualized sinuses are unremarkable. No fluid levels. Mastoid air cells: Visualized mastoid air cells are well aerated. Bones: Unremarkable. No acute fracture. Soft tissues: Unremarkable. CT/CT head thrombolytic [id number] IMPRESSION: Negative for acute intracranial pathology. ASSESSMENT: ASPECTS ([place] Stroke Program Early CT Score) is 10.
--- NOTE | 2024-03-30 06:27 | ECG_ITS ---
[facility] [employer] Test Date: 2024-03-30 Pat Name: Meghna Chaudhari Department: Room: Gender: Female [employer]: : 1945 Requested By: Yazmin Gurrola Order Number: [id number] Sara MD: Gabino Feng M.D. Measurements Intervals [place] Rate: 77 P: 71 WY: 216 QRS: -6 QRSD: 102 T: 30 QT: 401 QTc: 454 Interpretive Statements SINUS RHYTHM WITH FIRST DEGREE AV BLOCK WITH OCCASIONAL SUPRAVENTRICULAR PREMATURE COMPLEXES POSSIBLE RIGHT VENTRICULAR CONDUCTION DELAY [RSR (QR) IN V1/V2] MODERATE VOLTAGE CRITERIA FOR LVH, CONSIDER NORMAL VARIANT [MEETS CRITERIA IN ONE OF: R(aVL), S(V1), R(V5), R(V5/V6)+S(V1)] Compared to ECG 03/19/2024 15:30:04 First degree AV block now present Sinus bradycardia no longer present Electronically Signed On 03-30-2024 18:47:33 [employer]IOR PHP DEVEL[employer] by Gabino Feng M.D. [email or web address]
[2024-03-30 06:42] LABS: Basophils # 0.1 10^3/uL (0.0-0.1); Basophils % 0.5 %; Eosinophils # 0.3 10^3/uL (0.0-0.8); Eosinophils % 2.2 %; Hematocrit 35.3 % (36-47); Lymphocytes # 1.3 10^3/uL (0.8-4.8); Lymphocytes % 8.7 %; Mean Corpuscular HGB Conc 30.9 g/dL (30-55); Mean Corpuscular Hemoglobin 31.1 pg (27-33); Mean Corpuscular Volume 100.9 fl (85-98); Mean Platelet Volume 10.5 fL (7.4-10.4); Monocytes # 0.5 10^3/uL (0.2-0.9); Monocytes % 3.4 %; Neutrophils % 84.4 %; Nucleated Red Blood Cells % 0 %; Platelet Count 270 10^3/cmm (157-399); Red Cell Distribution Width 16.8 % (12.1-15.1); White Blood Count 14.82 10^3/uL (3.29-11.43)
[2024-03-30 06:45] LABS: INR 1.11 (0.8-1.2)
[2024-03-30 06:46] LABS: Partial Thromboplastin Time 28.5 SECONDS (23.9-36.7)
[2024-03-30 06:50] LABS: Alanine Aminotransferase < 5 U/L (0-33); Albumin Level 4.1 g/dL (3.5-5.2); Alkaline Phosphatase 127 U/L (35-105); Anion Gap 18.5 (5-19); Aspartate Amino Transferase 15 U/L (0-32); Blood Urea Nitrogen 44 mg/dL (8-23); Calcium 9.1 mg/dL (8.5-10.5); Carbon Dioxide 31 mmol/L (22-29); Chloride 99 mmol/L (98-107); Globulin 3.6 g/dL (1.3-4.6); Glucose 140 mg/dL (65-115); Osmolality Calculated 311 mOsm/kg (285-295); Potassium 4.5 mmol/L (3.5-5.1); Sodium 144 mmol/L (136-145); Total Bilirubin 0.8 mg/dL (0.15-1.2); Total Protein 7.7 g/dL (6.6-8.7)
--- NOTE | 2024-03-30 06:54 | ED_ITS ---
HPI - Neuro Symptoms/Deficit 2 General: Chief Complaint: Neuro Symptoms/Deficit Stated Complaint: stroke alert Time Seen by Provider: 03/30/24 06:27 History of Present Illness: This patient is a 79 year old resident of a intermediate sent to the ED for AMS and difficulty with speech. By EMS report, the onset was at 1 am. She also was reported to have tremors - she has a history of parkinson's - and was recently treated for a UTI. The patient was a stroke alert per EMS and went directly to CT where I saw her at the time of arrival. She was able to answer yes and no - but had aphasia otherwise - unable to get out the words that she wanted to say. She was able to move all extremities (she has a left AKA) with tremor noted in both upper extremities. CT was done and she was transported back to the ED. Once in room 11 - I went to further evaluate her and her speech was fluent at that time. She was able to answer questions. She was complaining of pain in her tailbone and tells me that she does have a sore there. She is a dialysis patient and was able to tell me that she dialyzes M-W-F and did have dialysis on Sunday as usual this week. She initially denied a headache, but a short while later was squeezing her eyes closed and holding her head - and at that time did says that her head hurt. She thinks that she might have had some on her morning meds but isn't sure. She has a fentanyl patch on her abdomen that is dated 03/24 Related Data Home Medications Medication Instructions Recorded Confirmed bimatoprost 0.01 % eye drops 1 drp ophthalmic (eye) BEDTIME 04/07/22 03/19/24 (Pepe) carbidopa 25 mg-levodopa 100 mg See Rx Instructions .Route .COMPLEX 04/07/22 03/19/24 tablet cholecalciferol (vitamin D3) 50 6,000 unit PO DAILY 04/07/22 03/19/24 mcg (2,000 unit) capsule (Vitamin D3) clonidine HCl 0.3 mg tablet 0.3 mg PO Q8H PRN systolic bp >160 04/07/22 03/19/24 fluticasone propionate 115 2 puff inhalation BID 04/07/22 03/19/24 mcg-salmeterol 21 mcg/actuation HFA inhaler (Advair HFA) furosemide 40 mg tablet (Lasix) 40 mg PO BID 04/07/22 03/19/24 insulin aspart U-100 100 unit/mL See Rx Instructions .Route .COMPLEX 04/07/22 03/19/24 (3 mL) subcutaneous pen (Novolog FlexPen U-100 Insulin aspart) loperamide 2 mg tablet (Imodium 2 mg PO Q6H PRN Loose Stool 04/07/22 03/19/24 A-D) metolazone 5 mg tablet 5 mg PO QAM 04/07/22 03/19/24 metoprolol tartrate 100 mg tablet 100 mg PO BID 04/07/22 03/19/24 ondansetron HCl 4 mg tablet 4 mg PO Q6H PRN Nausea And Vomiting 04/07/22 03/19/24 simvastatin 40 mg tablet 40 mg PO BEDTIME@21 04/07/22 03/19/24 solifenacin 5 mg tablet 5 mg PO QAM 04/07/22 03/19/24 vitamin B complex and vitamin C 1 cap PO QPM 04/07/22 03/19/24 no.20-folic acid 1 mg capsule (Renal Caps) bisacodyl 10 mg rectal suppository 10 mg SD DAILY PRN Constipation 07/14/22 03/19/24 alprazolam 0.5 mg tablet (Xanax) 0.5 mg PO TID PRN Anxiety 04/29/23 03/19/24 diphenhydramine HCl 25 mg capsule 25 mg PO DAILY PRN Itching 04/29/23 03/19/24 (Benadryl) docusate sodium 100 mg capsule 100 mg PO DAILY 04/29/23 03/19/24 (Colace) pantoprazole 40 mg tablet,delayed 40 mg PO BID 04/29/23 03/19/24 release sertraline 100 mg tablet 100 mg PO DAILY 04/29/23 03/19/24 sevelamer carbonate 800 mg tablet 1,600 mg PO TID 04/29/23 03/19/24 (Renvela) sucralfate 1 gram tablet 1 g PO BID 04/29/23 03/19/24 vitamin A and D See Rx Instructions .Route .COMPLEX 04/29/23 03/19/24 cetirizine 10 mg tablet 10 mg PO DAILY 03/19/24 03/19/24 fluticasone propionate 50 1 mcg intranasal BID 03/19/24 03/19/24 mcg/actuation nasal spray,suspension (Flonase Allergy Relief) hydromorphone 4 mg tablet 4 mg PO Q4H PRN Pain 03/19/24 03/19/24 (Dilaudid) insulin glargine 100 unit/mL (3 35 unit SUBCUT BEDTIME 03/19/24 03/19/24 mL) subcutaneous pen (Basaglar KwikPen U-100 Insulin) levothyroxine 150 mcg tablet 150 mcg PO DAILY 03/19/24 03/19/24 nystatin 100,000 unit/gram topical 1 applic topical BID 03/19/24 03/19/24 powder semaglutide 0.25 mg or 0.5 mg (2 0.25 mg SUBCUT Q7D 03/19/24 03/19/24 mg/3 mL) subcutaneous pen injector (Ozempic) tizanidine 4 mg tablet 4 mg PO DAILY 03/19/24 03/19/24 trihexyphenidyl 2 mg tablet 2 mg PO TID 03/19/24 03/19/24 white petrolatum (Vaseline jelly, 1 applic topical PRN 03/19/24 03/19/24 topical) Previous Rx's Medication Instructions Recorded acetaminophen 500 mg tablet 1,000 mg (2 x 500 mg) PO Q8H PRN 07/02/22 Pain #30 tabs 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 #1 ea 11/21/22 fentanyl 50 mcg/hr transdermal 1 patch transdermal Q72H #2 ea 03/22/24 patch gabapentin 100 mg capsule 100 mg PO TID #1 cap 03/22/24 Allergies Allergy/AdvReac Type Severity Reaction Status Date / Time sulfamethoxazole Allergy Rash Verified 03/19/24 05:42 [From Septra] trimethoprim [From Septra] Allergy Rash Verified 03/19/24 05:42 pregabalin [From Lyrica] AdvReac Loopy/Unste Verified 03/19/24 05:42 anoop PFSH ED 2 PFSH: Medical History CAD (coronary artery disease) Pulmonary hypertension Elevated troponin Goals of care, counseling/discussion History of pulmonary embolism Chest pain 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 Charcot's joint of left foot MRSA bacteremia ESRD (end stage renal disease) ESRD (end stage renal disease) Chronic kidney disease Hyponatremia Influenza A Pneumonia Iron deficiency anemia Acute exacerbation of CHF (congestive heart failure) Bilateral lower extremity edema Neuropathy Chronic renal insufficiency Post laminectomy syndrome Lumbar disc disease with radiculopathy Sciatica associated with disorder of lumbosacral spine Uncontrolled insulin dependent diabetes mellitus Diabetes mellitus type 2, insulin dependent COPD (chronic obstructive pulmonary disease) Hyperlipemia Vitamin D deficiency Parkinson disease Chronic insomnia Stage 4 chronic renal impairment associated with type 2 diabetes mellitus History of CVA (cerebrovascular accident) Anemia in chronic illness Hypertension Fibromyalgia Diabetic neuropathy Hypothyroidism Surgical History S/P dialysis catheter insertion History of colonoscopy 2020 Hx of hysterectomy Hx of cholecystectomy Hx of foot surgery Family History Father CAD (coronary artery disease) Mother CAD (coronary artery disease) Diabetes Grandfather CAD (coronary artery disease) Diabetes Social History Smoking and tobacco/nicotine status: former use of tobacco/nicotine Second hand smoke exposure: No Alcohol intake: current Alcohol intake frequency: holidays/special occasions only Alcohol type: hard liquor Substance/Drug Use: never Course 2 Vital Signs: Vital signs: Vital Signs Temperature 99.1 F 03/30/24 06:25 Pulse Rate 69 03/30/24 06:25 Respiratory Rate 20 H 03/30/24 06:25 Blood Pressure 180/78 03/30/24 06:25 Pulse Oximetry 95 03/30/24 06:25 MDM - Neuro Symptoms/Deficit Lab Data 03/30/24 06:23 12 06:[address] 03/30/24 06:24 IMPRESSION: Negative for acute intracranial pathology. ASSESSMENT: ASPECTS ([place] Stroke Program Early CT Score) is 10. Laboratory Results WBC 14.82 10^3/uL (3.29-11.43) H 03/30/24 06:23 RBC 3.50 10^6/uL (3.85-5.65) L 03/30/24 06:23 Hgb 10.90 g/dL (11.27-16.99) L 03/30/24 06:23 Hct 35.3 % (36-47) L 03/30/24 06:23 MCV 100.9 fl (85-98) H 03/30/24 06:23 MCH 31.1 pg (27-33) 03/30/24 06:23 MCHC 30.9 g/dL (30-55) 03/30/24 06:23 RDW 16.8 % (12.1-15.1) H 03/30/24 06:23 Plt Count 270 10^3/cmm (157-399) 03/30/24 06:23 MPV 10.5 fL (7.4-10.4) H 03/30/24 06:23 Neut % (Auto) 84.4 % 03/30/24 06:23 Lymph % (Auto) 8.7 % 03/30/24 06:23 [place] % (Auto) 3.4 % 03/30/24 06:23 Eos % (Auto) 2.2 % 03/30/24 06:23 Baso % (Auto) 0.5 % 03/30/24 06:23 Neut # (Auto) 12.50 10^3/uL (1.8-7.7) H 03/30/24 06:23 Lymph # (Auto) 1.3 10^3/uL (0.8-4.8) 03/30/24 06:23 [place] # (Auto) 0.5 10^3/uL (0.2-0.9) 03/30/24 06:23 Eos # (Auto) 0.3 10^3/uL (0.0-0.8) 03/30/24 06:23 Baso # (Auto) 0.1 10^3/uL (0.0-0.1) 03/30/24 06:23 Nucleated RBC % (auto) 0 % 03/30/24 06:23 Nucleated RBCs # 0.0 /100WBC 03/30/24 06:23 PT 14.70 SECONDS (12.1-14.9) 03/30/24 06:23 INR 1.11 (0.8-1.2) 03/30/24 06:23 APTT 28.5 SECONDS (23.9-36.7) 03/30/24 06:23 Sodium 144 mmol/L (136-145) 03/30/24 06:23 Potassium 4.5 mmol/L (3.5-5.1) 03/30/24 06:23 Chloride 99 mmol/L (98-107) 03/30/24 06:23 Carbon Dioxide 31 mmol/L (22-29) H 03/30/24 06:23 Anion Gap 18.5 (5-19) 03/30/24 06:23 BUN 44 mg/dL (8-23) H 03/30/24 06:23 Creatinine 3.9 mg/dL (0.5-0.9) H 03/30/24 06:23 GFR Calculation Not Reportable 03/30/24 06:23 Glucose 140 mg/dL (65-115) H 03/30/24 06:23 Calculated Osmolality 311 mOsm/kg (285-295) H 03/30/24 06:23 Calcium 9.1 mg/dL (8.5-10.5) 03/30/24 06:23 Total Bilirubin 0.8 mg/dL (0.15-1.2) 03/30/24 06:23 AST 15 U/L (0-32) 03/30/24 06:23 ALT < 5 U/L (0-33) 03/30/24 06:23 Alkaline Phosphatase 127 U/L (35-105) H 03/30/24 06:23 Total Protein 7.7 g/dL (6.6-8.7) 03/30/24 06:23 Albumin 4.1 g/dL (3.5-5.2) 03/30/24 06:23 Globulin 3.6 g/dL (1.3-4.6) 03/30/24 06:23 Discharge Plan Discharge Condition: Stable Prescriptions: No Action (DME) 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 See Rx Instructions .Route .MEDSUPPLY Qty: 1 0RF Rx Instructions: As directed acetaminophen 500 mg Tablet 1,000 mg PO Q8H PRN (Reason: Pain) Qty: 30 0RF bisacodyl 10 mg Suppository 10 mg SD DAILY PRN (Reason: Constipation) vitamin A and D Ointment See Rx Instructions .ROUTE .COMPLEX Rx Instructions: APPLY TOPICALLY AEVERY SHIFT TO BLATERAL BUTTUCK: CLEANSE WITH SOAP AND WATER AND APPLY A AND D OINTMENT FOR SHEER PREVENTION. sucralfate 1 gram tablet 1 g PO BID sertraline 100 mg tablet 100 mg PO DAILY alprazolam [Xanax] 0.5 mg Tablet 0.5 mg PO TID PRN (Reason: Anxiety) pantoprazole 40 mg tablet,delayed release (DR/EC) 40 mg PO BID diphenhydramine HCl [Benadryl] 25 mg Capsule 25 mg PO DAILY PRN (Reason: Itching) docusate sodium [Colace] 100 mg Capsule 100 mg PO DAILY sevelamer carbonate [Renvela] 800 mg Tablet 1,600 mg PO TID Rx Instructions: must administer with a meal/food levothyroxine 150 mcg Tablet 150 mcg PO DAILY trihexyphenidyl 2 mg Tablet 2 mg PO TID Rx Instructions: give with food (meal/snack) cetirizine 10 mg Tablet 10 mg PO DAILY nystatin 100,000 unit/gram Powder 1 applic TOPICAL BID hydromorphone [Dilaudid] 4 mg Tablet 4 mg PO Q4H PRN (Reason: Pain) Rx Instructions: take 1 -2 tablets by mouth every 6 hours as needed fluticasone propionate [Flonase Allergy Relief] 50 mcg/actuation [place],Suspension 1 mcg INTRANASAL BID white petrolatum [Vaseline] Gel 1 applic TOPICAL PRN Rx Instructions: apply to buttock every shift for prevention insulin glargine [Basaglar KwikPen U-100 Insulin] 100 unit/mL (3 mL) Insulin Pen 35 unit SUBCUT BEDTIME Ozempic 0.25 mg or 0.5 mg (2 mg/3 mL) Pen Injector 0.25 mg SUBCUT Q7D tizanidine 4 mg tablet 4 mg PO DAILY fentanyl 50 mcg/hr Patch 72 Hour 1 patch transdermal Q72H Qty: 2 0RF gabapentin 100 mg Capsule 100 mg PO TID Qty: 1 0RF Rx Instructions: Dose change only furosemide [Lasix] 40 mg Tablet 40 mg PO BID metoprolol tartrate 100 mg Tablet 100 mg PO BID ondansetron HCl 4 mg Tablet 4 mg PO Q6H PRN (Reason: Nausea And Vomiting) clonidine HCl 0.3 mg Tablet 0.3 mg PO Q8H PRN (Reason: systolic bp >160) loperamide [Imodium A-D] 2 mg Tablet 2 mg PO Q6H PRN (Reason: Loose Stool) metolazone 5 mg Tablet 5 mg PO QAM simvastatin 40 mg Tablet 40 mg PO BEDTIME@21 Renal Caps 1 mg Capsule 1 cap PO QPM carbidopa-levodopa 25-100 mg Tablet See Rx Instructions .ROUTE .COMPLEX Rx Instructions: GIVE 3 TABLETS BY MOUTH AT 8 AM AND NOON AND 2 TABLETS AT 6 PM. insulin aspart U-100 [Novolog FlexPen U-100 Insulin] 100 unit/mL (3 mL) Insulin Pen See Rx Instructions .ROUTE .COMPLEX Rx Instructions: sliding scale three times a day. IF BS LESS THAN 60, CALL MD. FOR BS 150-200=3 units 201-250=5 units 251-300=7 units 301-350=9 units 351-400=11 units call provider for bs <60 or >400 solifenacin 5 mg Tablet 5 mg PO QAM fluticasone propion-salmeterol [Advair HFA] 115-21 mcg/actuation Hfa Aerosol Inhaler 2 puff INHALATION BID cholecalciferol (vitamin D3) [Vitamin D3] 50 mcg (2,000 unit) Capsule 6,000 unit PO DAILY [place] 0.01 % Drops 1 drp OPHTHALMIC (EYE) BEDTIME Referrals: Brandi Escalera MD [Primary Care Provider] - Coding Level of Care Code ED Acoustic Sensor Operator for Dominick Baca
[2024-03-30] MEDS: fentaNYL 50 mcg/mL INJ 2mL IVP (07:45)
[2024-03-30 08:10] LABS: Bilirubin Urine Negative (Negative); Blood Urine Negative (Negative); Glucose Urine UA Negative (Normal); Ketones Urine Negative (Negative); Leukocyte Esterase Urine Negative (Negative); Nitrate Urine Negative (Negative); Protein Urine 2+ (Negative); Specific Gravity, Urine 1.011 (1.005-1.030); Urine Appearance Clear (CLEAR); Urine Color Yellow (Yellow); Urobilinogen Urine 0.2 mg/dL (Negative)
[2024-03-30 08:13] LABS: Add Urine Microscopic? YES; Bacteria Urine None Seen /hpf; Hyaline Casts Urine 0.81 /lpf; RBC Urine 0-2 /hpf (0-2); Squamous Epithelial Cell Urine 0-5 /hpf (0-5); WBC Urine 0-5 /hpf (0-5)
[2024-03-30] MEDS: LORazepam 2 mg/mL INJ 1 mL 0.5 MG IVP (08:26)
[2024-03-30 08:47] LABS: Covid PCR NEGATIVE (Negative); Influenza A NEGATIVE (Negative); Influenza B NEGATIVE (Negative); Respiratory Syncytial Virus Ce NEGATIVE (Negative)
--- NOTE | 2024-03-30 10:53 | PM.HP ---
Providers/Chief Complaint Admitting Physician: Nic Pack MD Primary Care Provider: Brandi Escalera MD Chief Complaint: stroke alert History of Present Illness Meghna Chaudhari is a 79 year old female with past medical history of end-stage renal disease on hemodialysis, type 2 diabetes mellitus, chronic pain, Parkinson's, A-fib, CAD, PE not on anticoagulation given history of GI bleed in past, MRSA bacteremia and pneumonia in 2021, who was recently in hospital and was discharged on 03/22 with concerns for cognitive status in setting of UTI and polypharmacy from pain medications. It seems on previous admission her oxycodone and hydrocodone were discontinued and she was discharged on fentanyl patch 50 mcg and Dilaudid 4 mg every 6 hours as needed. She was sent into the ER today from her senior care today with concerns for altered mental status and possible difficulty in speech which started at 1 AM. Patient was seen in the ER at around 6:25 AM. On presentation patient apparently had issues and concerns for aphasia which had resolved by the time patient was evaluated in the ER. It seems patient was found to have patches of fentanyl 75 mcg dated 03/24, lidocaine patch on patient's body. When seen in the room with family at bedside patient is awake and alert to self, being in the hospital. She thinks her date of is 1945 whereas her birthdate is 1945. She is not current to the ER. Patient herself is denying any new complaints. Denies any dysuria, headache, dizziness, cough. She is complaining of back pain which she states is chronic. Since presentation to the ER patient's blood pressures have remained elevated with systolic blood pressures highest noted to be over 200 mmHg. Review of Systems General: Reports: ROS unobtainable due to mental status Medications/Allergies Home Medications Medication Instructions Recorded Confirmed Last Taken Type bimatoprost 0.01 % eye drops 1 drp ophthalmic (eye) BEDTIME 04/07/22 03/30/24 03/29/24 17:30 History (Pepe) carbidopa 25 mg-levodopa 100 mg See Rx Instructions .Route .COMPLEX 04/07/22 03/30/24 03/29/24 17:45 History tablet cholecalciferol (vitamin D3) 50 6,000 unit PO DAILY 04/07/22 03/30/24 03/29/24 05:30 History mcg (2,000 unit) capsule (Vitamin D3) clonidine HCl 0.3 mg tablet 0.3 mg PO Q8H PRN systolic bp >160 04/07/22 03/30/24 04/05/23 History fluticasone propionate 115 2 puff inhalation BID 04/07/22 03/30/24 03/18/24 History mcg-salmeterol 21 mcg/actuation HFA inhaler (Advair HFA) furosemide 40 mg tablet (Lasix) 40 mg PO BID 04/07/22 03/30/24 03/29/24 12:25 History insulin aspart U-100 100 unit/mL See Rx Instructions .Route .COMPLEX 04/07/22 03/30/24 03/29/24 17:40 History (3 mL) subcutaneous pen (Novolog FlexPen U-100 Insulin aspart) loperamide 2 mg tablet (Imodium 2 mg PO Q6H PRN Loose Stool 04/07/22 03/30/24 01/30/23 History A-D) metolazone 5 mg tablet 5 mg PO QAM 04/07/22 03/30/24 03/29/24 05:30 History metoprolol tartrate 100 mg tablet 100 mg PO BID 04/07/22 03/30/24 03/29/24 17:35 History ondansetron HCl 4 mg tablet 4 mg PO Q6H PRN Nausea And Vomiting 04/07/22 03/30/24 03/23/24 16:20 History simvastatin 40 mg tablet 40 mg PO BEDTIME@21 04/07/22 03/30/24 03/29/24 17:40 History solifenacin 5 mg tablet 5 mg PO QAM 04/07/22 03/30/24 03/29/24 05:35 History vitamin B complex and vitamin C 1 cap PO QPM 04/07/22 03/30/24 03/29/24 17:40 History no.20-folic acid 1 mg capsule (Renal Caps) bisacodyl 10 mg rectal suppository 10 mg IN DAILY PRN Constipation 07/14/22 03/30/24 03/13/[address] Magistrate #1 ea 11/21/22 03/30/24 Unknown Rx alprazolam 0.5 mg tablet (Xanax) 0.5 mg PO TID PRN Anxiety 04/29/23 03/30/24 03/28/24 12:10 History diphenhydramine HCl 25 mg capsule 25 mg PO DAILY PRN Itching 04/29/23 03/30/24 03/28/24 12:10 History (Benadryl) docusate sodium 100 mg capsule 100 mg PO DAILY 04/29/23 03/30/24 03/29/24 17:40 History (Colace) pantoprazole 40 mg tablet,delayed 40 mg PO BID 04/29/23 03/30/24 03/29/24 17:40 History release sertraline 100 mg tablet 100 mg PO DAILY 04/29/23 03/30/24 03/29/24 05:35 History sevelamer carbonate 800 mg tablet 1,600 mg PO TID 04/29/23 03/30/24 03/29/24 17:40 History (Renvela) sucralfate 1 gram tablet 1 g PO BID 04/29/23 03/30/24 03/29/24 17:40 History vitamin A and D See Rx Instructions .Route .COMPLEX 04/29/23 03/30/24 04/28/23 History cetirizine 10 mg tablet 10 mg PO DAILY 03/19/24 03/30/24 03/29/24 05:35 History fluticasone propionate 50 1 mcg intranasal BID 03/19/24 03/30/24 03/29/24 17:40 History mcg/actuation nasal spray,suspension (Flonase Allergy Relief) hydromorphone 4 mg tablet 4 mg PO Q4H PRN Pain 03/19/24 03/30/24 03/29/24 12:15 History (Dilaudid) insulin glargine 100 unit/mL (3 35 unit SUBCUT BEDTIME 03/19/24 03/30/24 03/29/24 17:40 History mL) subcutaneous pen (Basaglar KwikPen U-100 Insulin) levothyroxine 150 mcg tablet 150 mcg PO DAILY 03/19/24 03/30/24 03/29/24 05:35 History nystatin 100,000 unit/gram topical 1 applic topical BID PRN Skin 03/19/24 03/30/24 Unknown History powder Irritation semaglutide 0.25 mg or 0.5 mg (2 0.25 mg SUBCUT Q7D 03/19/24 03/30/24 03/28/24 05:05 History mg/3 mL) subcutaneous pen injector (Ozempic) tizanidine 4 mg tablet 4 mg PO DAILY 03/19/24 03/30/24 Unknown History trihexyphenidyl 2 mg tablet 2 mg PO TID 03/19/24 03/30/24 03/29/24 17:40 History white petrolatum (Vaseline jelly, 1 applic topical PRN 03/19/24 03/30/24 03/29/24 19:45 History topical) fentanyl 50 mcg/hr transdermal 1 patch transdermal Q72H #2 ea 03/22/24 03/30/24 Unknown Rx patch gabapentin 100 mg capsule 100 mg PO TID #1 cap 03/22/24 03/30/24 03/29/24 17:40 Rx acetaminophen 500 mg tablet 650 mg PO BID PRN Pain 03/30/24 03/30/24 03/27/24 09:20 History apixaban 5 mg tablet (Eliquis) 5 mg PO BID 03/30/24 03/30/24 03/29/24 History oxycodone 10 mg tablet 10 mg PO Q8H PRN Pain 03/30/24 03/30/24 03/24/24 17:00 History Allergies Allergy/AdvReac Type Severity Reaction Status Date / Time sulfamethoxazole Allergy Rash Verified 03/19/24 05:42 [From Septra] trimethoprim [From Septra] Allergy Rash Verified 03/19/24 05:42 pregabalin [From Lyrica] AdvReac Loopy/Unste Verified 03/19/24 05:42 anoop PFSH Acute PFSH: Medical History (Updated 03/30/24 @ 14:10 by Nic Pack MD) Diabetic ulcer of left foot Gangrene of left foot Goals of care, counseling/discussion CAD (coronary artery disease) Pulmonary hypertension Elevated troponin History of pulmonary embolism Chest pain 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 Charcot's joint of left foot MRSA bacteremia ESRD (end stage renal disease) ESRD (end stage renal disease) Chronic kidney disease Hyponatremia Influenza A Pneumonia Iron deficiency anemia Acute exacerbation of CHF (congestive heart failure) Bilateral lower extremity edema Neuropathy Chronic renal insufficiency Post laminectomy syndrome Lumbar disc disease with radiculopathy Sciatica associated with disorder of lumbosacral spine Uncontrolled insulin dependent diabetes mellitus Diabetes mellitus type 2, insulin dependent COPD (chronic obstructive pulmonary disease) Hyperlipemia Vitamin D deficiency Parkinson disease Chronic insomnia Stage 4 chronic renal impairment associated with type 2 diabetes mellitus History of CVA (cerebrovascular accident) Anemia in chronic illness Hypertension Fibromyalgia Diabetic neuropathy Hypothyroidism Surgical History (Updated 03/30/24 @ 14:10 by Nic Pack MD) History of left below knee amputation S/P dialysis catheter insertion History of colonoscopy 2020 Hx of hysterectomy Hx of cholecystectomy Hx of foot surgery Family History Father CAD (coronary artery disease) Mother CAD (coronary artery disease) Diabetes Grandfather CAD (coronary artery disease) Diabetes Social History Smoking and tobacco/nicotine status: former use of tobacco/nicotine Second hand smoke exposure: No Alcohol intake: current Alcohol intake frequency: holidays/special occasions only Alcohol type: hard liquor Substance/Drug Use: never Vitals/I&O/Wt Last Vital Signs Temp 99.1 F 03/30/24 06:25 Pulse 56 L 03/30/24 10:49 Resp 14 03/30/24 10:30 BP 179/90 03/30/24 10:49 Pulse Ox 97 03/30/24 10:49 03/29/24 03/30/24 03/30/24 22:59 06:59 14:59 Intake Total 0 / 0 Balance 0 / 0 Physical Exam Narrative: General: No acute distress, morbidly obese, AO x 1 to 2, alert and oriented to self, being in the hospital not oriented to year, date of HEENT: PERRLA, pupils bilaterally equal and reactive Chest: Normal vesicular breath sounds, no added sounds, equal good air entry bilaterally CVS: S1-S2 regular, no murmurs, no tachycardia, no gallops, no rubs Abdomen: Soft, nontender, no organomegaly, bowel sounds present Neuro: No focal deficits, no facial deformity, AO x3, power 5/5 in all limbs Patient does have a cas coin size decub ulcer stage I Data 03/30/24 06:23 12/01/24 06:23 A&P Assessment and plan (1) Altered mental status: (2) Uncontrolled hypertension: (3) Polypharmacy: (4) Leukocytosis: (5) ESRD on hemodialysis: (6) Diabetes mellitus type 2, insulin dependent: (7) Status post below-knee amputation of left lower extremity: (8) Parkinson's Disease: Qualifiers: Dyskinesia presence: without dyskinesia Fluctuating manifestations: without fluctuating manifestations Qualified Code(s): G20.A1 - Parkinson's disease without dyskinesia, without mention of fluctuations (9) Goals of care, counseling/discussion: Plan 79-year-old with past medical history of end-stage renal disease on hemodialysis, atrial fibrillation previously not on anticoagulation with concerns for GI bleed, hypertension, type 2 diabetes mellitus, recent hospitalization in setting of UTI and polypharmacy leading to altered mental status presents back to the ER today with concerns of confusion and aphasia. Altered mental status: There was concern for polypharmacy with medications recently. On previous admission oxycodone was discontinued and fentanyl was decreased to 50 mcg daily. Currently on medical reconciliation it seems patient has been started back on oxycodone 10 mg Q8 hourly as needed and she had a fentanyl patch of 75 mcg on herself along with a lidocaine patch. Patient does have leukocytosis though UA is negative for any concerns for UTI. Patient does not have any concerns for pneumonia on chest x-ray. Viral panel negative for COVID and flu. CT head on admission negative for acute stroke. Higher concerns for metabolic encephalopathy. LFTs within normal limits. Electrolytes and renal functions at baseline. Patient does have leukocytosis but no signs of infection for now. Infectious pathology less likely. Appreciate culture history with previous infection with MRSA, Enterobacter, Corynebacterium. Check blood culture, urine bacterial antigen. Empirically for now start patient on IV vancomycin and meropenem. Will discontinue antibiotics patient remains afebrile for next 24 to 48 hours. Monitor leukocytosis. Medical reconciliation done. Will place her back on Dilaudid 2 mg every 6 hours as needed, fentanyl patch 50 mcg. Discontinue oxycodone. Continue with gabapentin 100 mg 3 times daily. Frequent reorientation. Sitter if needed. Fall precautions, aspiration precautions. N.p.o. for now. Restart diet once patient's mentation improves. Could be in setting of press syndrome given significantly elevated blood pressures on admission. Goal blood pressure less than 140/90 mmHg. For now continue with home dose of metoprolol. Add amlodipine 10 mg oral daily, losartan 50 mg oral daily. Hydralazine 10 mg every 4 hours as needed for systolic blood pressure of more than 160 mmHg. End-stage renal disease on hemodialysis: Will consult nephrology. Continue with home dialysis schedule of Sunday, Sunday, Sunday. Atrial fibrillation: Currently in rate controlled. Continue with home dose of metoprolol. Historically patient has not been on anticoagulation given concerns for GI bleed. As for medical reconciliation patient has been started back on Eliquis 5 mg twice daily. For now we will continue. Monitor hemoglobin. History of GI bleed: Hemoglobin stable for now. Continue with home dose of Protonix twice daily, Carafate twice daily. Type 2 diabetes mellitus: Check A1c. Continue with home dose of Lantus 35 units nightly. Humalog every 6 hours as needed low-dose protocol. Continue other chronic home medications. CODE STATUS: Discussed in detail with patient's daughter at bedside. Daughter Ms. Naylor the DPOA. As per the paperwork from senior care patient is DNR/DNI. Daughter is agreeable. N.p.o. for now. Protonix 40 mg twice daily will be sufficient for PUD prophylaxis Eliquis will be sufficient for DVT prophylaxis. Attestations Medical Necessity Statement*: Admission for more than 2 midnights for management of altered mental status in setting of polypharmacy, uncontrolled hypertension, leukocytosis while infectious causes were ruled out in a patient with end-stage renal disease on hemodialysis. Diagnoses Altered mental status R41.82 Uncontrolled hypertension I10 Polypharmacy Z79.899 Leukocytosis D72.829 ESRD on hemodialysis N18.6; Z99.2 Diabetes mellitus type 2, insulin dependent E11.9; Z79.4 Status post below-knee amputation of left lower extremity Z89.512 Parkinson's disease without dyskinesia or fluctuating manifestations G20.A1 Dyskinesia presence: without dyskinesia Fluctuating manifestations: without fluctuating manifestations Goals of care, counseling/discussion Z71.89
--- NOTE | 2024-03-30 11:07 | XRR_ITS ---
PROCEDURE INFORMATION: Exam: XR Chest Exam date and time: 03/30/2024 11:58 AM Age: 79 years old Clinical indication: Condition or disease; Other: Pneumonia/copd; Additional info: Pna/copd TECHNIQUE: Imaging protocol: Radiologic exam of the chest. Views: 1 view. COMPARISON: CT angio chest PE protcl [id number] 04/29/2023 4:43 PM FINDINGS: Tubes, catheters and devices: Stable appearance of thoracic spinal stimulator. Lungs: Moderate bronchovascular prominence. Bibasilar atelectasis. No focal consolidation. Pleural spaces: No significant pleural effusion. Heart/Mediastinum: Mild cardiomegaly. Vasculature: Calcifications of the aortic arch. Bones/joints: Unremarkable. XR/XR chest 1V portable [id number] IMPRESSION: 1. Cardiomegaly with bronchovascular prominence suggesting pulmonary vascular congestion. 2. Bibasilar atelectasis.
[2024-03-30 11:25] LABS: Estmated Average Glucose 123; Hemoglobin A1C 5.9 % (4.0-6.0)
[2024-03-30 11:25] LABS: Procalcitonin 0.25 ng/mL (0-0.5)
[2024-03-30 11:34] LABS: Thyroid Stimulating Hormone 5.03 uIU/mL (0.27-4.20)
[2024-03-30 11:48] LABS: Glucose Point of Care 147 mg/dL (70-110)
--- NOTE | 2024-03-30 12:24 | PHA.VACGOAL ---
Vancomycin Goal - Goal Vancomycin Indication:: Other - Therapy Current therapy:: Meropenem Day of therpy:: Day []of [] . Actual body weight (kg): 237 lb 8 oz - Data Labs: WBC 14.82 10^3/uL (3.29-11.43) H 03/30/24 06:23 RBC 3.50 10^6/uL (3.85-5.65) L 03/30/24 06:23 Hgb 10.90 g/dL (11.27-16.99) L 03/30/24 06:23 Hct 35.3 % (36-47) L 03/30/24 06:23 MCV 100.9 fl (85-98) H 03/30/24 06:23 MCH 31.1 pg (27-33) 03/30/24 06:23 MCHC 30.9 g/dL (30-55) 03/30/24 06:23 RDW 16.8 % (12.1-15.1) H 03/30/24 06:23 Sodium 144 mmol/L (136-145) 03/30/24 06:23 Potassium 4.5 mmol/L (3.5-5.1) 03/30/24 06:23 Chloride 99 mmol/L (98-107) 03/30/24 06:23 Carbon Dioxide 31 mmol/L (22-29) H 03/30/24 06:23 Anion Gap 18.5 (5-19) 03/30/24 06:23 BUN 44 mg/dL (8-23) H 03/30/24 06:23 Creatinine 3.9 mg/dL (0.5-0.9) H 03/30/24 06:23 GFR Calculation Not Reportable 03/30/24 06:23 Treatment plan:: new consult Regimen:: 3000 MG LOADING DOSE FOLLOWED BY 1000 MG AFTER DIALYSIS ON DIALYSIS DAYS PHARMACY WILL MONITOR DAILY AND ENTER ORDERS FOR VANCOMYCIN NEEDED
[2024-03-30] MEDS: heparin 5,000 unit/mL INJ 1 mL 5000 UNIT SUBCUT (13:07)
[2024-03-30] MEDS: meropenem 500 mg SDV IVP (13:07)
[2024-03-30] MEDS: pantoprazole 40 mg SDV IVP (13:07)
[2024-03-30] MEDS: vancomycin 2,000 MG/400 ML PIGGYBACK 200 MG IV (13:25)
[2024-03-30 14:28] LABS: Glucose Point of Care 132 mg/dL (70-110)
[2024-03-30] MEDS: sevelamer 800 mg Tablet 1600 MG PO ×2 (15:06→20:18)
[2024-03-30] MEDS: fentaNYL 50 mcg Patch 1 PATCH TRANSDERMA (15:06)
[2024-03-30] MEDS: losartan 50 mg Tablet PO (15:06)
[2024-03-30] MEDS: gabapentin 100 mg Capsule PO ×2 (15:07→20:18)
[2024-03-30] MEDS: amlodipine 10 mg Tablet PO (15:07)
[2024-03-30] MEDS: VANCOMYCIN ADD-Vantage 1,000 MG in 0.9% NaCl ADD-Vantage 250 ML 250 MG IV ×2 (15:08→15:14)
[2024-03-30] MEDS: FUROsemide 40 mg Tablet PO (17:35)
[2024-03-30] MEDS: carbidopa-levodopa 25-100mg Tablet 2 EACH PO (17:36)
[2024-03-30] MEDS: sucralfate 1 gm Tablet PO (17:36)
[2024-03-30] MEDS: metoprolol tartrate 50 mg Tablet 100 MG PO (17:36)
[2024-03-30] MEDS: apixaban 5 mg Tablet PO (17:36)
[2024-03-30] MEDS: pantoprazole DR 40 mg Tablet PO (17:36)
[2024-03-30 20:17] LABS: Glucose Point of Care 155 mg/dL (70-110)
[2024-03-30] MEDS: insulin glargine 100 units/1 mL 35 UNIT SUBCUT (20:17)
[2024-03-30] MEDS: insulin lispro 100 unit/1 mL SUBCUT (20:17)
[2024-03-30] MEDS: atorvastatin 40 mg Tablet 20 MG PO (20:18)
[2024-03-31] VITALS (20 sets, daily range): BP systolic 106–188; BP diastolic 56–79; PULSE 52–96; RESP 14–20; TEMP 36.2–36.9; O2SAT 94–99
[2024-03-31 01:59] LABS: Glucose Point of Care 97 mg/dL (70-110)
[2024-03-31 03:55] LABS: Basophils # 0.1 10^3/uL (0.0-0.1); Basophils % 0.3 %; Eosinophils # 0.3 10^3/uL (0.0-0.8); Eosinophils % 1.4 %; Hematocrit 33.2 % (36-47); Lymphocytes # 1.2 10^3/uL (0.8-4.8); Lymphocytes % 6.4 %; Mean Corpuscular HGB Conc 29.8 g/dL (30-55); Mean Corpuscular Hemoglobin 30.6 pg (27-33); Mean Corpuscular Volume 102.5 fl (85-98); Mean Platelet Volume 10.5 fL (7.4-10.4); Monocytes # 0.6 10^3/uL (0.2-0.9); Monocytes % 3.3 %; Neutrophils # 16.43 10^3/uL (1.8-7.7); Neutrophils % 87.9 %; Nucleated Red Blood Cells % 0 %; Platelet Count 239 10^3/cmm (157-399); Red Blood Count 3.24 10^6/uL (3.85-5.65); Red Cell Distribution Width 16.6 % (12.1-15.1)
[2024-03-31 04:14] LABS: Alanine Aminotransferase < 5 U/L (0-33); Albumin Level 3.6 g/dL (3.5-5.2); Alkaline Phosphatase 114 U/L (35-105); Anion Gap 20.8 (5-19); Aspartate Amino Transferase 11 U/L (0-32); Blood Urea Nitrogen 51 mg/dL (8-23); Calcium 8.7 mg/dL (8.5-10.5); Carbon Dioxide 26 mmol/L (22-29); Chloride 101 mmol/L (98-107); Chol HDL Ratio 5.04 mg/dL (0.0-4.40); Cholesterol 116 mg/dL (0-200); Creatinine Clr Calc Pharmacy 11.8576; Globulin 3.1 g/dL (1.3-4.6); Glucose 94 mg/dL (65-115); HDL Cholesterol 23 mg/dL (60-100); LDL Cholesterol Calculated 57 mg/dL (50-129); LDL HDL Ratio 2.48 RATIO (0.00-3.22); Magnesium 1.7 mg/dL (1.7-2.3); Osmolality Calculated 311 mOsm/kg (285-295); Phosphorus 4.5 mg/dL (2.5-4.5); Potassium 3.8 mmol/L (3.5-5.1); Sodium 144 mmol/L (136-145); Total Bilirubin 0.8 mg/dL (0.15-1.2); Total Protein 6.7 g/dL (6.6-8.7); Triglycerides 182 mg/dL (0-150)
[2024-03-31 04:20] LABS: Procalcitonin 0.26 ng/mL (0-0.5)
[2024-03-31] MEDS: metOLazone 5 MG Tablet PO (06:05)
[2024-03-31] MEDS: sevelamer 800 mg Tablet 1600 MG PO ×3 (08:01→22:14)
[2024-03-31 08:02] LABS: Glucose Point of Care 111 mg/dL (70-110)
[2024-03-31] MEDS: sertraline 100 mg Tablet PO (08:02)
[2024-03-31] MEDS: losartan 50 mg Tablet PO (08:02)
[2024-03-31] MEDS: tizanidine 4 mg Tablet PO (08:02)
[2024-03-31] MEDS: pantoprazole DR 40 mg Tablet PO ×2 (08:02→18:11)
[2024-03-31] MEDS: sucralfate 1 gm Tablet PO ×2 (08:02→18:10)
[2024-03-31] MEDS: carbidopa-levodopa 25-100mg Tablet 3 EACH PO ×2 (08:02→13:04)
[2024-03-31] MEDS: gabapentin 100 mg Capsule PO ×3 (08:02→22:14)
[2024-03-31] MEDS: FUROsemide 40 mg Tablet PO ×2 (08:02→18:10)
[2024-03-31] MEDS: metoprolol tartrate 50 mg Tablet 100 MG PO ×2 (08:03→18:10)
[2024-03-31] MEDS: levothyroxine 150 mcg Tablet PO (08:03)
[2024-03-31] MEDS: amlodipine 10 mg Tablet PO (08:03)
--- NOTE | 2024-03-31 08:15 | PC.HD ---
Heparin 1000 units loading dose administered via fistula needle at 0800 per brass bobbin winder's orders. Primary RN Jenny at bedside at treatment initiation, administering po meds to patient.
[2024-03-31 09:14] LABS: Hepatitis C Virus Antibody Non-Reactive (Nonreactive)
[2024-03-31 09:21] LABS: Hepatitis B Core AB, Total Non-Reactive (Nonreactive); Hepatitis B Surface Antigen Non-Reactive (Nonreactive)
[2024-03-31 09:56] LABS: Hepatitis B Surface AB > 1000.0 (11.5-1000)
--- NOTE | 2024-03-31 10:20 | PC.CHAP ---
Pastoral Care Encounter/Spiritual Assessment Type of Contact [] Declined photographer scientific visit [] Patient/Family/Request visit [] Outpatient visit [] Follow-up visit [] Physician referral [] Code/Alert [x] Routine visit [] Staff referral [] Actively dying [] Patient sleeping [] Family support [] [x] Out of room [] Palliative care [] [] Receiving care in room [] Pre-surgical visit [] Trauma [] Long length of stay [] ICU visit [] Other: Relational/Emotional Strength [] Patient feels connected with others/family/visitors/staff [] Distress [] Loneliness/isolation [] Abandonment Spirituality of Patient [] Person of Eve [] Attends Latter-Day of their Eve [] Believes in Prayer [] Reads Bible or Samaritan materials [] There are Spiritual issues to be addressed Cupola Tender Helper Interventions [] Prayer [] Active listening [] Non-anxious presence [] Spiritual/emotional support [] Crisis/trauma care [] Spiritual counseling [] Bereavement support [] Provided bereavement packet [] Provided Bible/devotional materials [] Provided toy/stuffed animal, coloring book to patient or family member [] Provided Communion [] Anointing/[place] [] Salvation [] Completed spiritual assessment [] Other: Impact on Illness or Injury [] Angry [] Fearful [] Anxious [] Often cries [] Exhaustion [] Unable to work [] Unable to attend sabianist [] Unable to walk/stand [] Unable to read [] Unable to drive [] Unable to eat/drink [] Unable to sleep [] Unable to be with family [] Patient intubated [] Other: Summary Time spent with patient
--- NOTE | 2024-03-31 10:48 | PC.HD ---
With one hour of dialysis remaining, patient began complaining of cramping in her hands. Upon assessment, patient's skin was noted to be cool and clammy. BP dropped to 93/62. Per hypotension dialysis orders, dialysate temperature lowered to 35.0C and UF rate lowered to 300 mL/alexey with no resolution in symptoms. BP improved slightly, but patient remained symptomatic. Per casualty insurance claim adjuster, treatment terminated after 2:10. UF goal of 2500 not met; 1487 removed. Patient appears now to be hallucinating, stating she has blood on her (she does not), very tearful, states to be afraid of dying, and asking for her mother and daughters. Primary RN updated. Blow Torch Burner aware of events.
--- NOTE | 2024-03-31 11:24 | P.CONIM_ITS ---
Providers/Reason For Consult 2 Consulting Physician/Specialty*: [id number]/nephrology Reason for Consult*: ESRD Attending Physician: Prince Yoon Primary Care Provider: Brandi Escalera MD History of Present Illness History of Present Illness Meghna Chaudhari is a 79 year old female patient is a 79-year-old female with multiple medical problems including end-stage renal disease on dialysis per Sunday schedule, diabetes, Parkinson's disease, atrial fibrillation, Mikhail artery disease and per pulmonary embolism sent to the emergency department from the senior living due to altered mental status and difficulty speech. Patient was noted to have fentanyl patch on for. Lab data significant for elevated WBC count of 14,000, CO2 level of 31, creatinine 3.9. Medications/Allergies Home Medications Medication Instructions Recorded Confirmed Last Taken Type bimatoprost 0.01 % eye drops 1 drp ophthalmic (eye) BEDTIME 04/07/22 03/30/24 03/29/24 17:30 History (Pepe) carbidopa 25 mg-levodopa 100 mg See Rx Instructions .Route .COMPLEX 04/07/22 03/30/24 03/29/24 17:45 History tablet cholecalciferol (vitamin D3) 50 6,000 unit PO DAILY 04/07/22 03/30/24 03/29/24 05:30 History mcg (2,000 unit) capsule (Vitamin D3) clonidine HCl 0.3 mg tablet 0.3 mg PO Q8H PRN systolic bp >160 04/07/22 03/30/24 04/05/23 History fluticasone propionate 115 2 puff inhalation BID 04/07/22 03/30/24 03/18/24 History mcg-salmeterol 21 mcg/actuation HFA inhaler (Advair HFA) furosemide 40 mg tablet (Lasix) 40 mg PO BID 04/07/22 03/30/24 03/29/24 12:25 History insulin aspart U-100 100 unit/mL See Rx Instructions .Route .COMPLEX 04/07/22 03/30/24 03/29/24 17:40 History (3 mL) subcutaneous pen (Novolog FlexPen U-100 Insulin aspart) loperamide 2 mg tablet (Imodium 2 mg PO Q6H PRN Loose Stool 04/07/22 03/30/24 01/30/23 History A-D) metolazone 5 mg tablet 5 mg PO QAM 04/07/22 03/30/24 03/29/24 05:30 History metoprolol tartrate 100 mg tablet 100 mg PO BID 04/07/22 03/30/24 03/29/24 17:35 History ondansetron HCl 4 mg tablet 4 mg PO Q6H PRN Nausea And Vomiting 04/07/22 03/30/24 03/23/24 16:20 History simvastatin 40 mg tablet 40 mg PO BEDTIME@21 04/07/22 03/30/24 03/29/24 17:40 History solifenacin 5 mg tablet 5 mg PO QAM 04/07/22 03/30/24 03/29/24 05:35 History vitamin B complex and vitamin C 1 cap PO QPM 04/07/22 03/30/24 03/29/24 17:40 History no.20-folic acid 1 mg capsule (Renal Caps) bisacodyl 10 mg rectal suppository 10 mg WA DAILY PRN Constipation 07/14/22 03/30/24 03/13/24 History Stump Extractor Filler #1 ea 11/21/22 03/30/24 Unknown Rx alprazolam 0.5 mg tablet (Xanax) 0.5 mg PO TID PRN Anxiety 04/29/23 03/30/24 03/28/24 12:10 History diphenhydramine HCl 25 mg capsule 25 mg PO DAILY PRN Itching 04/29/23 03/30/24 03/28/24 12:10 History (Benadryl) docusate sodium 100 mg capsule 100 mg PO DAILY 04/29/23 03/30/24 03/29/24 17:40 History (Colace) pantoprazole 40 mg tablet,delayed 40 mg PO BID 04/29/23 03/30/24 03/29/24 17:40 History release sertraline 100 mg tablet 100 mg PO DAILY 04/29/23 03/30/24 03/29/24 05:35 History sevelamer carbonate 800 mg tablet 1,600 mg PO TID 04/29/23 03/30/24 03/29/24 17:40 History (Renvela) sucralfate 1 gram tablet 1 g PO BID 04/29/23 03/30/24 03/29/24 17:40 History vitamin A and D See Rx Instructions .Route .COMPLEX 04/29/23 03/30/24 04/28/23 History cetirizine 10 mg tablet 10 mg PO DAILY 03/19/24 03/30/24 03/29/24 05:35 History fluticasone propionate 50 1 mcg intranasal BID 03/19/24 03/30/24 03/29/24 17:40 History mcg/actuation nasal spray,suspension (Flonase Allergy Relief) hydromorphone 4 mg tablet 4 mg PO Q4H PRN Pain 03/19/24 03/30/24 03/29/24 12:15 History (Dilaudid) insulin glargine 100 unit/mL (3 35 unit SUBCUT BEDTIME 03/19/24 03/30/24 03/29/24 17:40 History mL) subcutaneous pen (Basaglar KwikPen U-100 Insulin) levothyroxine 150 mcg tablet 150 mcg PO DAILY 03/19/24 03/30/24 03/29/24 05:35 History nystatin 100,000 unit/gram topical 1 applic topical BID PRN Skin 03/19/24 03/30/24 Unknown History powder Irritation semaglutide 0.25 mg or 0.5 mg (2 0.25 mg SUBCUT Q7D 03/19/24 03/30/24 03/28/24 05:05 History mg/3 mL) subcutaneous pen injector (Ozempic) tizanidine 4 mg tablet 4 mg PO DAILY 03/19/24 03/30/24 Unknown History trihexyphenidyl 2 mg tablet 2 mg PO TID 03/19/24 03/30/24 03/29/24 17:40 History white petrolatum (Vaseline jelly, 1 applic topical PRN 03/19/24 03/30/24 03/29/24 19:45 History topical) fentanyl 50 mcg/hr transdermal 1 patch transdermal Q72H #2 ea 03/22/24 03/30/24 Unknown Rx patch gabapentin 100 mg capsule 100 mg PO TID #1 cap 03/22/24 03/30/24 03/29/24 17:40 Rx acetaminophen 500 mg tablet 650 mg PO BID PRN Pain 03/30/24 03/30/24 03/27/24 09:20 History apixaban 5 mg tablet (Eliquis) 5 mg PO BID 03/30/24 03/30/24 03/29/24 History oxycodone 10 mg tablet 10 mg PO Q8H PRN Pain 03/30/24 03/30/24 03/24/24 17:00 History Allergies Allergy/AdvReac Type Severity Reaction Status Date / Time sulfamethoxazole Allergy Rash Verified 03/19/24 05:42 [From Septra] trimethoprim [From Septra] Allergy Rash Verified 03/19/24 05:42 pregabalin [From Lyrica] AdvReac Loopy/Unste Verified 03/19/24 05:42 anoop Current Medications Generic Name Dose Route Start Last Admin Trade Name Freq PRN Reason Stop Dose Admin Amlodipine Besylate 10 mg 03/30/24 14:10 03/31/24 08:03 Amlodipine 10 Mg Tablet PO 10 mg DAILY BILLIE Administration Apixaban 5 mg 03/30/24 18:00 03/30/24 17:36 Apixaban 5 Mg Tablet PO 5 mg BID BILLIE Administration Atorvastatin Calcium 20 mg 03/30/24 21:00 03/30/24 20:18 Atorvastatin 40 Mg Tablet PO 20 mg BEDTIME@21 BILLIE Administration Carbidopa/Levodopa 3 each 03/31/24 08:00 03/31/24 08:02 Carbidopa-Levodopa 25-100mg Tablet PO 3 each 0800,1200 BILLIE Administration Carbidopa/Levodopa 2 each 03/30/24 18:00 03/30/24 17:36 Carbidopa-Levodopa 25-100mg Tablet PO 2 each 1800 BILLIE Administration Fentanyl 1 patch 03/30/24 14:15 03/30/24 15:06 Fentanyl 50 Mcg Patch TRANSDERMA 1 patch Q72H BILLIE Administration Furosemide 40 mg 03/30/24 18:00 03/31/24 08:02 Furosemide 40 Mg Tablet PO 40 mg BID BILLIE Administration Gabapentin 100 mg 03/30/24 15:00 03/31/24 08:02 Gabapentin 100 Mg Capsule PO 100 mg TID BILLIE Administration Insulin Glargine 35 unit 03/30/24 21:00 03/30/24 20:17 Insulin Glargine 100 Units/1 Ml SUBCUT 35 unit BEDTIME BILLIE Administration Insulin Human Lispro 0 unit 03/30/24 14:15 03/31/24 09:32 Insulin Lispro 100 Unit/1 Ml SUBCUT Not Given Q6H [facility] Protocol Levothyroxine Sodium 150 mcg 03/31/24 09:00 03/31/24 08:03 Levothyroxine 150 Mcg Tablet PO 150 mcg DAILY BILLIE Administration Losartan Potassium 50 mg 03/30/24 14:10 03/31/24 08:02 Losartan 50 Mg Tablet PO 50 mg DAILY BILLIE Administration Meropenem 500 mg 03/30/24 12:30 03/31/24 00:00 Meropenem 500 Mg Sdv IVP 500 mg Q12H BILLIE Administration Protocol Metolazone 5 mg 03/31/24 06:00 03/31/24 06:05 Metolazone 5 Mg Tablet PO 5 mg QAM BILLIE Administration Metoprolol Tartrate 100 mg 03/30/24 18:00 03/31/24 08:03 Metoprolol Tartrate 50 Mg Tablet PO 100 mg BID BILLIE Administration Pantoprazole Sodium 40 mg 03/30/24 18:00 03/31/24 08:[address] 40 Mg Tablet PO 40 mg BID BILLIE Administration Sertraline HCl 100 mg 03/31/24 09:00 03/31/24 08:02 Sertraline 100 Mg Tablet PO 100 mg DAILY BILLIE Administration Sevelamer Carbonate 1,600 mg 03/30/24 15:00 03/31/24 08:01 Sevelamer 800 Mg Tablet PO 1,600 mg TID BILLIE Administration Sucralfate 1 gm 03/30/24 18:00 03/31/24 08:02 Sucralfate 1 Gm Tablet PO 1 gm BID BILLIE Administration Tizanidine HCl 4 mg 03/31/24 09:00 03/31/24 08:02 Tizanidine 4 Mg Tablet PO 4 mg DAILY BILLIE Administration PFSH Acute 2 PFSH: Medical History (Updated 03/30/24 @ 14:10 by Nic aPck MD) Diabetic ulcer of left foot Gangrene of left foot Goals of care, counseling/discussion CAD (coronary artery disease) Pulmonary hypertension Elevated troponin History of pulmonary embolism Chest pain 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 Charcot's joint of left foot MRSA bacteremia ESRD (end stage renal disease) ESRD (end stage renal disease) Chronic kidney disease Hyponatremia Influenza A Pneumonia Iron deficiency anemia Acute exacerbation of CHF (congestive heart failure) Bilateral lower extremity edema Neuropathy Chronic renal insufficiency Post laminectomy syndrome Lumbar disc disease with radiculopathy Sciatica associated with disorder of lumbosacral spine Uncontrolled insulin dependent diabetes mellitus Diabetes mellitus type 2, insulin dependent COPD (chronic obstructive pulmonary disease) Hyperlipemia Vitamin D deficiency Parkinson disease Chronic insomnia Stage 4 chronic renal impairment associated with type 2 diabetes mellitus History of CVA (cerebrovascular accident) Anemia in chronic illness Hypertension Fibromyalgia Diabetic neuropathy Hypothyroidism Surgical History (Updated 03/30/24 @ 14:10 by Nic Pack MD) History of left below knee amputation S/P dialysis catheter insertion History of colonoscopy 2020 Hx of hysterectomy Hx of cholecystectomy Hx of foot surgery Family History Father CAD (coronary artery disease) Mother CAD (coronary artery disease) Diabetes Grandfather CAD (coronary artery disease) Diabetes Social History Smoking and tobacco/nicotine status: former use of tobacco/nicotine Second hand smoke exposure: No Alcohol intake: current Alcohol intake frequency: holidays/special occasions only Alcohol type: hard liquor Substance/Drug Use: never Vitals/I&O/Wt Last Vital Signs Temp 97.2 F L 03/31/24 10:47 Pulse 63 03/31/24 10:47 Resp 20 H 03/31/24 10:47 BP 131/75 03/31/24 10:47 Pulse Ox 97 03/31/24 08:38 O2 Del Method Nasal Cannula 03/31/24 08:38 O2 Flow Rate 2 03/31/24 08:38 03/30/24 03/31/24 03/31/24 22:59 06:59 14:59 Intake Total 675 / 675 0 / 675 500 / 500 Output Total 1030 / 1030 250 / 1280 1986 / 1986 Balance -355 / -355 -250 / -605 -1487 / -1487 Weight last 48 hrs Weight 106.9 kg Weight 105.188 kg Weight 107.728 kg Physical Exam 2 Narrative: Patient is awake alert, no distress HEENT S1-S2 regular rate and rhythm per report Lungs clear per report Abdomen nontender nondistended per report No pedal edema Data 03/31/24 03:11 03/31/24 03:11 Micro: Microbiology 03/31/24 03:11 Blood Culture - Preliminary Blood SPECIMEN COLLECTED 03/31/24 03:11 Blood Culture - Preliminary Blood SPECIMEN COLLECTED 03/30/24 07:57 Bacterial Antigens - Final Urine Kidney A&P Assessment and plan (1) ESRD on hemodialysis: Plan 1. End-stage renal disease: Dialysis today, tolerated well 2. History of hypertension, resumed home meds and monitor 3. Altered mental status, waxing and waning, workup in progress, will likely do HD again tomorrow 4. History of diabetes 5. Anemia: Hemoglobin 9.9, monitor and order CHANDRAKANT with HD Patient evaluated using audiovisual cart. Time spent 40 minutes. Consult Attestations 2 Medical Necessity Statement: Per medicine team Coding Level of Care Code Acute Code for g Fwd Diagnoses ESRD on hemodialysis N18.6; Z99.2
[2024-03-31 11:29] LABS: Glucose Point of Care 126 mg/dL (70-110)
[2024-03-31] MEDS: meropenem 500 mg SDV IVP ×2 (13:04)
[2024-03-31 15:00] LABS: Glucose Point of Care 118 mg/dL (70-110)
[2024-03-31] MEDS: carbidopa-levodopa 25-100mg Tablet 2 EACH PO (18:11)
--- NOTE | 2024-03-31 18:39 | P.PN_ITS ---
Subjective 2 Subjective: This morning she was confused, having asterixis. Reported confused during dialysis which she did not tolerate very well with cramping. Soft blood pressure. It had to be stopped earlier. She is showing some improvement after dialysis. Later in the afternoon is oriented to date although still with some residual confusion. Vitals/I&O/Wt Last Vital Signs Temp 97.6 F 03/31/24 17:00 Pulse 96 03/31/24 17:00 Resp 14 03/31/24 17:00 BP 180/74 03/31/24 17:00 Pulse Ox 97 03/31/24 15:55 O2 Del Method Nasal Cannula 03/31/24 15:55 O2 Flow Rate 2 03/31/24 08:38 03/31/24 03/31/24 03/31/24 06:59 14:59 22:59 Intake Total 0 / 675 500 / 500 Output Total 250 / 1280 1986 500 / 2487 Balance -250 / -605 -1487 / -1487 -500 / -1986 Weight last 48 hrs Weight 106.9 kg Weight 105.188 kg Weight 107.728 kg Physical Exam 2 Const: GENERAL APPEARANCE: cooperative ORIENTATION/CONSCIOUSNESS: Yes awake HENMT: COMMON NORMALS: oropharynx normal Neck/C-Spine: COMMON NORMALS: no JVD Resp: COMMON NORMALS: normal respiratory effort and clear to auscultation bilaterally AUSCULTATION: clear to auscultation bilaterally Cardio: COMMON NORMALS: no JVD, regular rhythm, S1 normal heart sound present, S2 normal heart sound present and No murmurs present (Cardio) RHYTHM: regular rhythm HEART SOUNDS: S1 normal heart sound present and S2 normal heart sound present GI: COMMON NORMALS: Normal to inspection, nondistended, normoactive bowel sounds present, Soft to palpation and non-tender PALPATION: Yes Soft to palpation Extremity: COMMON NORMALS: no joint enlargement and no pedal edema OTHER: L BKA Neuro: COMMON NORMALS: moves all extremities Skin: COMMON NORMALS: no rashes or lesions noted GENERAL SKIN EXAM: no rashes or lesions noted Data 03/31/24 03:11 03/31/24 03:11 Micro: Microbiology 03/31/24 03:11 Blood Culture - Preliminary Blood SPECIMEN COLLECTED 03/31/24 03:11 Blood Culture - Preliminary Blood SPECIMEN COLLECTED 03/30/24 07:57 Bacterial Antigens - Final Urine Kidney A&P Assessment and plan (1) Altered mental status: (2) Uncontrolled hypertension: (3) Polypharmacy: (4) Leukocytosis: (5) ESRD on hemodialysis: (6) Diabetes mellitus type 2, insulin dependent: (7) Status post below-knee amputation of left lower extremity: (8) Parkinson's Disease: Qualifiers: Dyskinesia presence: without dyskinesia Fluctuating manifestations: w ithout fluctuating manifestations Qualified Code(s): G20.A1 - Parkinson's disease without dyskinesia, without mention of fluctuations (9) Goals of care, counseling/discussion: Plan 79-year-old with past medical history of end-stage renal disease on hemodialysis, atrial fibrillation previously not on anticoagulation with concerns for GI bleed, hypertension, type 2 diabetes mellitus, recent hospitalization in setting of UTI and polypharmacy leading to altered mental status presents back to the ER today with concerns of confusion and aphasia. Altered mental status: Acute encephalopathy, suspected toxic encephalopathy secondary to toxic effect of medication. Noted confused this morning, with asterixis. Confused during dialysis from history obtained from dialysis nurse, which she did not tolerate very well with cramping, soft blood pressure it had to be disrupted earlier. However, did undergo just over 2 hours of dialysis, and subsequently did show improvement. Oriented to date. Calmer. With improvement in asterixis. Discussed with nursing, discussed with protective services case worker, discussed with supervisor putty and caluking. Additional dialysis to be attempted tomorrow. Monitor for risk of hypotension. Continue to reorient. Reviewed CBC, CMP, procalcitonin. Recheck CBC, CMP. With leukocytosis continue empiric antibiotic for now. On meropenem. Monitor for risk of seizure. Vancomycin. History came in with 2 fentanyl patches seems like an old 1 was not removed, may be at risk of additional overdose. Will discontinue fentanyl patch. Continues with hydromorphone. Here was concern for polypharmacy with medications recently. On previous admission oxycodone was discontinued and fentanyl was decreased to 50 mcg daily. Patient does have leukocytosis though UA is negative for any concerns for UTI. Patient does not have any concerns for pneumonia on chest x-ray. Viral panel negative for COVID and flu. CT head on admission negative for acute stroke. Higher concerns for metabolic encephalopathy. LFTs within normal limits. Electrolytes and renal functions at baseline. Patient does have leukocytosis but no signs of infection for now. Infectious pathology less likely. Appreciate culture history with previous infection with MRSA, Enterobacter, Corynebacterium. Check blood culture, urine bacterial antigen. Empirically for now start patient on IV vancomycin and meropenem. Recheck CBC Will place her back on Dilaudid 2 mg every 6 hours as needed. Discontinue oxycodone. Continue with gabapentin 100 mg 3 times daily. Frequent reorientation. Sitter if needed. Fall precautions, aspiration precautions. Trial of clear liquids. Could be in setting of press syndrome given significantly elevated blood pressures on admission. Goal blood pressure less than 140/90 mmHg. For now continue with home dose of metoprolol. Continue amlodipine 10 mg oral daily, losartan 50 mg oral daily. Hydralazine 10 mg every 4 hours as needed for systolic blood pressure of more than 160 mmHg. End-stage renal disease on hemodialysis: Will consult nephrology. Continue with home dialysis schedule of Sunday, Sunday, Sunday. Atrial fibrillation: Currently in rate controlled. Continue with home dose of metoprolol. Historically patient has not been on anticoagulation given concerns for GI bleed. As for medical reconciliation patient has been started back on Eliquis 5 mg twice daily. For now we will continue. Monitor hemoglobin. History of GI bleed: Hemoglobin stable for now. Continue with home dose of Protonix twice daily, Carafate twice daily. Type 2 diabetes mellitus: Check A1c. Continue with home dose of Lantus 35 units nightly. Humalog every 6 hours as needed low-dose protocol. Continue other chronic home medications. CODE STATUS: Discussed in detail with patient's daughter at bedside. Daughter Ms. Naylor the DPOA. As per the paperwork from senior living patient is DNR/DNI. Daughter is agreeable. N.p.o. for now. Protonix 40 mg twice daily will be sufficient for PUD prophylaxis Eliquis will be sufficient for DVT prophylaxis. Attestations 2 Medical Necessity Statement*: Continue admission for assessment and management of acute encephalopathy in a lady with polypharmacy, including multiple opioid medications including parenteral opioid with fentanyl patch, with underlying ESRD, additional medical problems as above. and High MDM includes amount and/or complexity of data reviewed/ordered [ resulted lab(s)/test(s), ordered lab(s)/test(s), independent historian and other healthcare professional discussion] and described risk of complication, morbidity or mortality of management as documented Diagnoses Altered mental status R41.82 Uncontrolled hypertension I10 Polypharmacy Z79.899 Leukocytosis D72.829 ESRD on hemodialysis N18.6; Z99.2 Diabetes mellitus type 2, insulin dependent E11.9; Z79.4 Status post below-knee amputation of left lower extremity Z89.512 Parkinson's disease without dyskinesia or fluctuating manifestations G20.A1 Dyskinesia presence: without dyskinesia Fluctuating manifestations: without fluctuating manifestations Goals of care, counseling/discussion Z71.89
--- NOTE | 2024-03-31 20:21 | PC.NURSE ---
Fentanyl patch was removed from patients right side per Dr. Yoon's orders. Night nurse witnessed the patch removed. Small blister formed at upper left corner from plastic overlay on patch.
[2024-03-31 21:08] LABS: Glucose Point of Care 107 mg/dL (70-110)
--- NOTE | 2024-03-31 21:32 | PC.NURSE ---
Dr. Loaiza notified that patient has 35 units Lantus due and a blood sugar of 107. Ordered to skip this dose of Lantus.
[2024-03-31] MEDS: VANCOMYCIN ADD-Vantage 1,000 MG in 0.9% NaCl ADD-Vantage 250 ML 250 MG IV (22:14)
[2024-03-31] MEDS: atorvastatin 40 mg Tablet 20 MG PO (22:14)
--- NOTE | 2024-03-31 22:20 | PC.NURSE ---
Patient's orientation status: Patient cannot tell me where she is at. When informed that she is in the hospital, she says ya because of that UTI. Patient is able to tell me the date.
[2024-04-01] VITALS (12 sets, daily range): BP systolic 106–172; BP diastolic 57–88; PULSE 54–70; RESP 16–18; TEMP 36.5–36.9; O2SAT 91–98; BMI 36.6
[2024-04-01] MEDS: meropenem 500 mg SDV IVP ×3 (00:14→23:26)
[2024-04-01 01:59] LABS: Glucose Point of Care 135 mg/dL (70-110)
[2024-04-01] MEDS: metOLazone 5 MG Tablet PO (05:55)
[2024-04-01] MEDS: ALPRAZolam 0.5 mg Tablet PO ×2 (05:59→20:25)
[2024-04-01 06:32] LABS: Basophils # 0.1 10^3/uL (0.0-0.1); Basophils % 0.4 %; Eosinophils # 0.3 10^3/uL (0.0-0.8); Eosinophils % 1.6 %; Hematocrit 34.3 % (36-47); Lymphocytes # 1.2 10^3/uL (0.8-4.8); Lymphocytes % 7.2 %; Mean Corpuscular HGB Conc 30.6 g/dL (30-55); Mean Corpuscular Hemoglobin 30.4 pg (27-33); Mean Corpuscular Volume 99.4 fl (85-98); Mean Platelet Volume 10.7 fL (7.4-10.4); Monocytes # 0.6 10^3/uL (0.2-0.9); Monocytes % 3.7 %; Neutrophils # 14.37 10^3/uL (1.8-7.7); Neutrophils % 86.5 %; Nucleated Red Blood Cells % 0 %; Platelet Count 274 10^3/cmm (157-399); Red Blood Count 3.45 10^6/uL (3.85-5.65); Red Cell Distribution Width 16.6 % (12.1-15.1); White Blood Count 16.61 10^3/uL (3.29-11.43)
[2024-04-01 06:53] LABS: Alanine Aminotransferase < 5 U/L (0-33); Albumin Level 3.8 g/dL (3.5-5.2); Alkaline Phosphatase 123 U/L (35-105); Anion Gap 16.8 (5-19); Aspartate Amino Transferase 15 U/L (0-32); Blood Urea Nitrogen 41 mg/dL (8-23); Calcium 9.3 mg/dL (8.5-10.5); Carbon Dioxide 30 mmol/L (22-29); Chloride 96 mmol/L (98-107); Globulin 3.8 g/dL (1.3-4.6); Glucose 149 mg/dL (65-115); Osmolality Calculated 301 mOsm/kg (285-295); Potassium 3.8 mmol/L (3.5-5.1); Sodium 139 mmol/L (136-145); Total Protein 7.6 g/dL (6.6-8.7)
[2024-04-01 08:51] LABS: Glucose Point of Care 177 mg/dL (70-110)
[2024-04-01] MEDS: morphine 4 mg/mL SDV 1 mL 2 MG IVP (09:22)
[2024-04-01] MEDS: metoprolol tartrate 50 mg Tablet 100 MG PO ×2 (09:24→17:12)
[2024-04-01] MEDS: amlodipine 10 mg Tablet PO (09:24)
[2024-04-01] MEDS: FUROsemide 40 mg Tablet PO ×2 (09:24→17:12)
[2024-04-01] MEDS: sevelamer 800 mg Tablet 1600 MG PO ×3 (09:24→20:18)
[2024-04-01] MEDS: losartan 50 mg Tablet PO (09:24)
[2024-04-01] MEDS: tizanidine 4 mg Tablet PO (09:24)
[2024-04-01] MEDS: pantoprazole DR 40 mg Tablet PO ×2 (09:25→17:12)
[2024-04-01] MEDS: insulin lispro 100 unit/1 mL SUBCUT ×3 (09:25→21:58)
[2024-04-01] MEDS: sertraline 100 mg Tablet PO (09:25)
[2024-04-01] MEDS: sucralfate 1 gm Tablet PO ×2 (09:25→17:12)
[2024-04-01] MEDS: levothyroxine 150 mcg Tablet PO (09:25)
[2024-04-01] MEDS: gabapentin 100 mg Capsule PO ×3 (09:25→20:18)
[2024-04-01] MEDS: carbidopa-levodopa 25-100mg Tablet 3 EACH PO ×2 (09:27→12:00)
--- NOTE | 2024-04-01 10:09 | P.PN_ITS ---
Subjective 2 Subjective: doing well Mental status back to baseline Medications: Reviewed: Yes Vitals/I&O/Wt Last Vital Signs Temp 98.2 F 04/01/24 08:30 Pulse 70 04/01/24 08:30 Resp 16 04/01/24 09:22 BP 156/61 04/01/24 09:24 Pulse Ox 98 04/01/24 08:30 O2 Del Method Nasal Cannula 04/01/24 08:30 O2 Flow Rate 2 04/01/24 04:00 03/31/24 04/01/24 04/01/24 22:59 06:59 14:59 Intake Total 250 / 750 720 / 720 Output Total 500 / 2487 300 / 2787 Balance -500 / -1987 -50 / -2036 720 / 720 Weight last 48 hrs Weight 106.9 kg Weight 105.188 kg Weight 107.728 kg Physical Exam 2 Narrative: Patient is awake alert, no distress HEENT S1-S2 regular rate and rhythm per report Lungs clear per report Abdomen nontender nondistended per report No pedal edema Urinary Catheter Management: Puckett: Cath Placed During This Visit: no Reason for Continuing Indwelling Catheter: Other Data 04/01/24 05:37 04/01/24 05:37 Micro: Microbiology 03/31/24 03:11 Blood Culture - Preliminary Blood NEGATIVE TO DATE 03/31/24 03:11 Blood Culture - Preliminary Blood NEGATIVE TO DATE A&P Assessment and plan (1) ESRD on hemodialysis: Plan 1. End-stage renal disease: Dialysis done yesterday , will do next hD in [place] 2. History of hypertension, resumed home meds and monitor 3. Altered mental status, waxing and waning, workup in progress, will likely do HD again tomorrow 4. History of diabetes 5. Anemia: Hemoglobin 10.5, monitor and order CHANDRAKANT with HD Patient evaluated using audiovisual cart. Time spent 40 minutes. Attestations 2 Medical Necessity Statement*: per stan Coding Level of Care Code Acute Code for Chg Fwd Diagnoses ESRD on hemodialysis N18.6; Z99.2
--- NOTE | 2024-04-01 10:23 | PC.CHAP ---
Pastoral Care Encounter/Spiritual Assessment Type of Contact [] Declined retail operations specialist visit [] Patient/Family/Request visit [] Outpatient visit [] Follow-up visit [] Physician referral [] Code/Alert [x] Routine visit [] Staff referral [] Actively dying [] Patient sleeping [] Family support [] [] Out of room [] Palliative care [] [] Receiving care in room [] Pre-surgical visit [] Trauma [] Long length of stay [] ICU visit [] Other: Relational/Emotional Strength [x] Patient feels connected with others/family/visitors/staff [x] Distress [] Loneliness/isolation [] Abandonment Spirituality of Patient [x] Person of Eve [] Attends Yazidism of their Eve [x] Believes in Prayer [] Reads Bible or Baptism materials [] There are Spiritual issues to be addressed Yard Manager Interventions [x] Prayer [x] Active listening [x] Non-anxious presence [x] Spiritual/emotional support [] Crisis/trauma care [] Spiritual counseling [] Bereavement support [] Provided bereavement packet [] Provided Bible/devotional materials [] Provided toy/stuffed animal, coloring book to patient or family member [] Provided Communion [] Anointing/Wylie [] Salvation [x] Completed spiritual assessment [] Other: Impact on Illness or Injury [] Angry [] Fearful [x] Anxious [] Often cries [] Exhaustion [] Unable to work [] Unable to attend evangelical [] Unable to walk/stand [] Unable to read [] Unable to drive [] Unable to eat/drink [x] Unable to sleep [] Unable to be with family [] Patient intubated [] Other: Summary Time spent with patient 10 min
--- NOTE | 2024-04-01 13:54 | PM.PN ---
Subjective Subjective: She is feeling slightly better today. Last night she had an episode of diarrhea. No further diarrhea today. Vitals/I&O/Wt Last Vital Signs Temp 98.3 F 04/01/24 12:15 Pulse 54 L 04/01/24 12:15 Resp 17 04/01/24 12:15 BP 106/57 04/01/24 12:15 Pulse Ox 96 04/01/24 12:15 O2 Del Method Nasal Cannula 04/01/24 12:15 O2 Flow Rate 2 04/01/24 04:00 03/31/24 04/01/24 04/01/24 22:59 06:59 14:59 Intake Total 250 / 750 720 / 720 Output Total 500 / 2487 300 / 2787 Balance -500 / -1986 -50 / -2036 720 / 720 Weight last 48 hrs Weight 105.959 kg Weight 106.9 kg Weight 105.188 kg Physical Exam Const: GENERAL APPEARANCE: cooperative ORIENTATION/CONSCIOUSNESS: Yes awake HENMT: COMMON NORMALS: oropharynx normal Neck/C-Spine: COMMON NORMALS: no JVD Resp: COMMON NORMALS: normal respiratory effort and clear to auscultation bilaterally AUSCULTATION: clear to auscultation bilaterally Cardio: COMMON NORMALS: no JVD, regular rhythm, S1 normal heart sound present, S2 normal heart sound present and No murmurs present (Cardio) RHYTHM: regular rhythm HEART SOUNDS: S1 normal heart sound present and S2 normal heart sound present GI: COMMON NORMALS: Normal to inspection, nondistended, normoactive bowel sounds present, Soft to palpation and non-tender PALPATION: Yes Soft to palpation Extremity: COMMON NORMALS: no joint enlargement and no pedal edema OTHER: L BKA Neuro: COMMON NORMALS: moves all extremities Skin: COMMON NORMALS: no rashes or lesions noted GENERAL SKIN EXAM: no rashes or lesions noted Urinary Catheter Management: Puckett: Cath Placed During This Visit: no Reason for Continuing Indwelling Catheter: Other Data 04/01/24 05:37 04/01/24 05:37 Micro: Microbiology 03/31/24 03:11 Blood Culture - Preliminary Blood NEGATIVE TO DATE 03/31/24 03:11 Blood Culture - Preliminary Blood NEGATIVE TO DATE A&P Assessment and plan (1) Altered mental status: (2) Uncontrolled hypertension: (3) Polypharmacy: (4) Leukocytosis: (5) ESRD on hemodialysis: (6) Diabetes mellitus type 2, insulin dependent: (7) Status post below-knee amputation of left lower extremity: (8) Parkinson's Disease: Qualifiers: Dyskinesia presence: without dyskinesia Fluctuating manifestations: without fluctuating manifestations Qualified Code(s): G20.A1 - Parkinson's disease without dyskinesia, without mention of fluctuations (9) Goals of care, counseling/discussion: Plan 79-year-old with past medical history of end-stage renal disease on hemodialysis, atrial fibrillation previously not on anticoagulation with concerns for GI bleed, hypertension, type 2 diabetes mellitus, recent hospitalization in setting of UTI and polypharmacy leading to altered mental status presents back to the ER today with concerns of confusion and aphasia. Altered mental status: Today has improved significantly. She is calm, cooperative. Has been bothered by pain. We have discontinued fentanyl patch entirely. Discussed with her adjusting Dilaudid dose to assist with pain control. She does have significant tolerance with prior use of opioids. Monitor for risk of adverse effects with increasing dose of Dilaudid, mental status depression, constipation. Reviewed vitals, CBC, noted decreasing leukocytosis. She did have an episode of diarrhea yesterday but without recurrence. In case of recurrence assess for C. difficile. Does have some moisture damage/shear excoriation on the buttocks upper gluteal cleft, without significant cellulitis. No deep wounds or drainage. No cellulitis otherwise. Chest x-ray with congestive changes on presentation, no clear evidence for pneumonia.Urinalysis was unremarkable. Reviewed blood cultures, remaining negative. Procalcitonin reviewed, 0.26. Although difficult to interpret with renal disease. Discussed with nursing, family preservation caseworker. If continues to improve, consideration of possible discharge tomorrow. Reassess chemistry, blood counts. Acute encephalopathy, suspected toxic encephalopathy secondary to toxic effect of medication. Noted confused this morning, with asterixis. Confused during dialysis from history obtained from dialysis nurse, which she did not tolerate very well with cramping, soft blood pressure it had to be disrupted earlier. However, did undergo just over 2 hours of dialysis, and subsequently did show improvement. Oriented to date. Calmer. With improvement in asterixis. Discussed with nursing, discussed with family preservation caseworker, discussed with glass calibrator. With leukocytosis continue empiric antibiotic for now. On meropenem. Monitor for risk of seizure. Vancomycin. History came in with 2 fentanyl patches seems like an old 1 was not removed, may be at risk of additional overdose. Will discontinue fentanyl patch. Continues with hydromorphone. Here was concern for polypharmacy with medications recently. On previous admission oxycodone was discontinued and fentanyl was decreased to 50 mcg daily. Patient does have leukocytosis though UA is negative for any concerns for UTI. Patient does not have any concerns for pneumonia on chest x-ray. Viral panel negative for COVID and flu. CT head on admission negative for acute stroke. Higher concerns for metabolic encephalopathy. LFTs within normal limits. Electrolytes and renal functions at baseline. Patient does have leukocytosis but no signs of infection for now. Infectious pathology less likely. Appreciate culture history with previous infection with MRSA, Enterobacter, Corynebacterium. Empirically for now on IV vancomycin and meropenem. Dilaudid 2 mg every 4 hours as needed. Discontinued oxycodone. Continue with gabapentin 100 mg 3 times daily. Frequent reorientation. Fall precautions, aspiration precautions. Advance diet. Could be in setting of press syndrome given significantly elevated blood pressures on admission. Blood pressures today are doing better, 117/88. For now continue with home dose of metoprolol. Continue amlodipine 10 mg oral daily, losartan 50 mg oral daily. Hydralazine 10 mg every 4 hours as needed for systolic blood pressure of more than 160 mmHg. End-stage renal disease on hemodialysis: Reviewed nephrology note. Continue with home dialysis schedule of Sunday, Sunday, Sunday. Atrial fibrillation: Currently in rate controlled. Continue with home dose of metoprolol. Historically patient has not been on anticoagulation given concerns for GI bleed. As for medical reconciliation patient has been started back on Eliquis 5 mg twice daily. For now we will continue. Monitor hemoglobin. History of GI bleed: Hemoglobin stable for now. Continue with home dose of Protonix twice daily, Carafate twice daily. Type 2 diabetes mellitus: Reviewed A1c. 5.9. Continue with home dose of Lantus 35 units nightly. Humalog every 6 hours as needed low-dose protocol. Continue other chronic home medications. Gluteal excoriation, moisture damage, shear stress, continue wound care. [facility]. CODE STATUS: Discussed in detail with patient's daughter at bedside. Daughter Ms. Naylor the DPOA. As per the paperwork from half-way patient is DNR/DNI. Daughter is agreeable. Protonix 40 mg twice daily will be sufficient for PUD prophylaxis Eliquis will be sufficient for DVT prophylaxis. Attestations Medical Necessity Statement*: Continue admission for assessment and management of acute encephalopathy in a lady with polypharmacy, including multiple opioid medications including parenteral opioid with fentanyl patch, requiring patch discontinuation, up titration of Dilaudid due to inadequate pain control, with underlying ESRD, additional medical problems as above. and High MDM includes amount and/or complexity of data reviewed/ordered [ resulted lab(s)/test(s), ordered lab(s)/test(s) and other healthcare professional discussion] and described risk of complication, morbidity or mortality of management as documented Diagnoses Altered mental status R41.82 Uncontrolled hypertension I10 Polypharmacy Z79.899 Leukocytosis D72.829 ESRD on hemodialysis N18.6; Z99.2 Diabetes mellitus type 2, insulin dependent E11.9; Z79.4 Status post below-knee amputation of left lower extremity Z89.512 Parkinson's disease without dyskinesia or fluctuating manifestations G20.A1 Dyskinesia presence: without dyskinesia Fluctuating manifestations: without fluctuating manifestations Goals of care, counseling/discussion Z71.89
[2024-04-01 15:11] LABS: Glucose Point of Care 152 mg/dL (70-110)
[2024-04-01] MEDS: carbidopa-levodopa 25-100mg Tablet 2 EACH PO (17:13)
[2024-04-01] MEDS: atorvastatin 40 mg Tablet 20 MG PO (20:18)
[2024-04-01 21:06] LABS: Glucose Point of Care 184 mg/dL (70-110)
[2024-04-01] MEDS: insulin glargine 100 units/1 mL 35 UNIT SUBCUT (21:59)
[2024-04-02] VITALS (11 sets, daily range): BP systolic 103–157; BP diastolic 60–92; PULSE 53–81; RESP 16–18; TEMP 36.6–37; O2SAT 92–97
[2024-04-02 02:09] LABS: Glucose Point of Care 137 mg/dL (70-110)
[2024-04-02 05:11] LABS: Basophils # 0.1 10^3/uL (0.0-0.1); Basophils % 0.5 %; Eosinophils # 0.4 10^3/uL (0.0-0.8); Hematocrit 33.2 % (36-47); Lymphocytes # 1.3 10^3/uL (0.8-4.8); Lymphocytes % 9.3 %; Mean Corpuscular HGB Conc 31.3 g/dL (30-55); Mean Corpuscular Hemoglobin 31.3 pg (27-33); Mean Platelet Volume 10.8 fL (7.4-10.4); Monocytes # 0.8 10^3/uL (0.2-0.9); Monocytes % 5.8 %; Neutrophils # 11.09 10^3/uL (1.8-7.7); Neutrophils % 80.9 %; Nucleated Red Blood Cells % 0 %; Platelet Count 246 10^3/cmm (157-399); Red Blood Count 3.32 10^6/uL (3.85-5.65); Red Cell Distribution Width 16.8 % (12.1-15.1)
--- NOTE | 2024-04-02 05:11 | PC.NURSE ---
Patient refusing to be turned on her side. Patient states I know it's good for me, but I just can't stand laying on my side.
[2024-04-02 05:13] LABS: Vancomycin Trough 32.1 ug/mL (10-15)
[2024-04-02 05:48] LABS: Albumin Level 3.9 g/dL (3.5-5.2); Alkaline Phosphatase 121 U/L (35-105); Chloride 97 mmol/L (98-107); Potassium 3.7 mmol/L (3.5-5.1); Sodium 140 mmol/L (136-145)
[2024-04-02 06:09] LABS: Alanine Aminotransferase < 5 U/L (0-33); Anion Gap 20.7 (5-19); Aspartate Amino Transferase 13 U/L (0-32); Blood Urea Nitrogen 53 mg/dL (8-23); Calcium 8.4 mg/dL (8.5-10.5); Carbon Dioxide 26 mmol/L (22-29); Creatinine Clr Calc Pharmacy 12.1571; Globulin 3.2 g/dL (1.3-4.6); Glucose 128 mg/dL (65-115); Osmolality Calculated 306 mOsm/kg (285-295); Total Bilirubin 0.6 mg/dL (0.15-1.2); Total Protein 7.1 g/dL (6.6-8.7)
[2024-04-02] MEDS: metOLazone 5 MG Tablet PO (06:23)
--- NOTE | 2024-04-02 07:20 | P.PN_ITS ---
Subjective 2 Subjective: getting hD Medications: Reviewed: Yes Vitals/I&O/Wt Last Vital Signs Temp 97.9 F 04/02/24 04:00 Pulse 64 04/02/24 04:00 Resp 18 04/02/24 04:00 BP 157/92 04/02/24 04:00 Pulse Ox 97 04/02/24 04:00 O2 Del Method Nasal Cannula 04/02/24 04:00 O2 Flow Rate 2 04/02/24 04:00 04/01/24 04/02/24 04/02/24 22:59 06:59 14:59 Intake Total 240 / 1200 Output Total 200 / 200 Balance 240 / 1200 -200 / 1000 Weight last 48 hrs Weight 105.506 kg Weight 105.959 kg Weight 106.9 kg Physical Exam 2 Narrative: Patient is awake alert, no distress HEENT S1-S2 regular rate and rhythm per report Lungs clear per report Abdomen nontender nondistended per report No pedal edema Urinary Catheter Management: Puckett: Cath Placed During This Visit: no Reason for Continuing Indwelling Catheter: Other Data 04/02/24 04:22 04/02/24 04:22 Micro: Microbiology 03/31/24 03:11 Blood Culture - Preliminary Blood NEGATIVE TO DATE 03/31/24 03:11 Blood Culture - Preliminary Blood NEGATIVE TO DATE A&P Assessment and plan (1) ESRD on hemodialysis: Plan 1. End-stage renal disease: HD today 2. History of hypertension, resumed home meds and monitor 3. Altered mental status, IMPROVED 4. History of diabetes 5. Anemia: Hemoglobin 10.5, monitor and order CHANDRAKANT with HD Patient evaluated using audiovisual cart. Time spent 40 minutes. Attestations 2 Medical Necessity Statement*: PER MYLENE Coding Level of Care Code Acute Code for Chg Fwd Diagnoses ESRD on hemodialysis N18.6; Z99.2
[2024-04-02 07:30] LABS: Glucose Point of Care 117 mg/dL (70-110)
[2024-04-02] MEDS: heparin, porcine 1,000 unit/mL INJ 10 mL 1000 UNIT IV (07:40)
[2024-04-02] MEDS: sucralfate 1 gm Tablet PO (09:10)
[2024-04-02] MEDS: tizanidine 4 mg Tablet PO (09:10)
[2024-04-02] MEDS: FUROsemide 40 mg Tablet PO (09:11)
[2024-04-02] MEDS: pantoprazole DR 40 mg Tablet PO (09:11)
[2024-04-02] MEDS: levothyroxine 150 mcg Tablet PO (09:11)
[2024-04-02] MEDS: gabapentin 100 mg Capsule PO (09:11)
[2024-04-02] MEDS: sertraline 100 mg Tablet PO (09:11)
[2024-04-02] MEDS: sevelamer 800 mg Tablet 1600 MG PO (09:11)
[2024-04-02 09:12] LABS: Glucose Point of Care 133 mg/dL (70-110)
[2024-04-02] MEDS: carbidopa-levodopa 25-100mg Tablet 3 EACH PO (09:23)
--- NOTE | 2024-04-02 10:08 | PM.DCS ---
Discharge Providers Date of Admission: 03/30/24 09:31 Date of Discharge: April 02, 2024 Attending Provider at Admission: Nic Pack MD Attending Provider at Discharge: Prince Yoon Primary Care Provider: Brandi Escalera MD Diagnoses at Discharge Discharge Diagnosis (1) ESRD on hemodialysis: Status: Acute Reason for Visit Reason for Visit: stroke alert Brief History: Meghna Chaudhari is a 79 year old female with past medical history of end-stage renal disease on hemodialysis, type 2 diabetes mellitus, chronic pain, Parkinson's, A-fib, CAD, PE not on anticoagulation given history of GI bleed in past, MRSA bacteremia and pneumonia in 2021, who was recently in hospital and was discharged on 03/22 with concerns for cognitive status in setting of UTI and polypharmacy from pain medications. It seems on previous admission her oxycodone and hydrocodone were discontinued and she was discharged on fentanyl patch 50 mcg and Dilaudid 4 mg every 6 hours as needed. She [facility] with concerns for altered mental status and possible difficulty in speech which started at 1 AM. Patient was seen in the ER at around 6:25 AM. On presentation patient apparently had issues and concerns for aphasia which had resolved by the time patient was evaluated in the ER. It seems patient was found to have patches of fentanyl 75 mcg dated 03/24, lidocaine patch on patient's body. When seen in the room with family at bedside patient is awake and alert to self, being in the hospital. She thinks her date of is 1945 whereas her birthdate is 1945. She is not current to the ER. Patient herself is denying any new complaints. Denies any dysuria, headache, dizziness, cough. She is complaining of back pain which she states is chronic. Since presentation to the ER patient's blood pressures have remained elevated with systolic blood pressures highest noted to be over 200 mmHg. Hospital Course Hospital Course During hospitalization was found to have intermittent lethargy, like encephalopathy with asterixis, suspected likely secondary to medication effect, on presentation was found to have 2 fentanyl patches and 2 lidocaine patches on her. Patches removed. Fentanyl initially was continued at lower dose, subsequently discontinued entirely. Oxycodone stopped. She continued on gabapentin. Dilaudid for severe breakthrough pain. Pain regimen further adjusted with Dilaudid 2 mg every 4 hours as needed providing good relief of her symptoms. She underwent dialysis during hospitalization. She was initially started on empiric antibiotic coverage with meropenem and vancomycin, although did have leukocytosis on presentation, was not found to have any compelling evidence of ongoing infection. Blood cultures are remaining negative. Urinalysis on presentation unremarkable and not suggestive of UTI. Congestive changes on chest imaging without suggestion of pneumonia of which she also did not have any symptoms. She had 1 episode of diarrhea, without recurrence. There is an area of moisture injury and shear stress on her upper buttocks/gluteal cleft, but without evidence of surrounding cellulitis or deeper infection. Her mental status has improved, encephalopathy resolved, she is remaining alert, lucid, interactive, subjectively feeling better. She is asked to follow-up with her primary provider to continue review and gradual discontinuation of any nonessential medications. At current time she is still remaining on Xanax as needed, please continue to wean off and attempt discontinue if possible due to increased risk of interaction. Her condition and plans discussed also with her daughter. Physical Exam Const: GENERAL APPEARANCE: cooperative ORIENTATION/CONSCIOUSNESS: Yes awake HENMT: COMMON NORMALS: oropharynx normal Neck/C-Spine: COMMON NORMALS: no JVD Resp: COMMON NORMALS: normal respiratory effort and clear to auscultation bilaterally AUSCULTATION: clear to auscultation bilaterally Cardio: COMMON NORMALS: no JVD, regular rhythm, S1 normal heart sound present, S2 normal heart sound present and No murmurs present (Cardio) RHYTHM: regular rhythm HEART SOUNDS: S1 normal heart sound present and S2 normal heart sound present GI: COMMON NORMALS: Normal to inspection, nondistended, normoactive bowel sounds present, Soft to palpation and non-tender PALPATION: Yes Soft to palpation Extremity: COMMON NORMALS: no joint enlargement and no pedal edema OTHER: L BKA Neuro: COMMON NORMALS: moves all extremities Skin: COMMON NORMALS: no rashes or lesions noted GENERAL SKIN EXAM: no rashes or lesions noted Urinary Catheter Management: [place]: Cath Placed During This Visit: no Reason for Continuing Indwelling Catheter: Other Discharge Data Studies Completed and Pending Completed Studies During Hospitalization Category Date Time Status CT head thrombolytic 78680 Stat Cat Scan 03/30/24 06:24 Completed XR chest 1V portable [id number] Routine Exams 03/30/24 11:07 Completed Pending at discharge Category Date Time Status Blood Culture Stat Lab 03/30/24 14:10 Results Complete Blood Count w/Auto AM LABS Lab 04/03/24 04:00 Ordered Comprehensive Metabolic Panel AM LABS Lab 04/03/24 04:00 Ordered Vancomycin Random AM LABS Lab 04/03/24 04:00 Ordered Radiology Impressions Head CT 03/30/24 06:24 IMPRESSION: Negative for acute intracranial pathology. ASSESSMENT: ASPECTS ([place] Stroke Program Early CT Score) is 10. Chest X-Ray 03/30/24 11:07 IMPRESSION: 1. Cardiomegaly with bronchovascular prominence suggesting pulmonary vascular congestion. 2. Bibasilar atelectasis. Laboratory Results WBC 13.70 10^3/uL (3.29-11.43) H 04/02/24 04:22 RBC 3.32 10^6/uL (3.85-5.65) L 04/02/24 04:22 Hgb 10.40 g/dL (11.27-16.99) L 04/02/24 04:22 Hct 33.2 % (36-47) L 04/02/24 04:22 MCV 100.0 fl (85-98) H 04/02/24 04:22 MCH 31.3 pg (27-33) 04/02/24 04:22 MCHC 31.3 g/dL (30-55) 04/02/24 04:22 RDW 16.8 % (12.1-15.1) H 04/02/24 04:22 Plt Count 246 10^3/cmm (157-399) 04/02/24 04:22 MPV 10.8 fL (7.4-10.4) H 04/02/24 04:22 Neut % (Auto) 80.9 % 04/02/24 04:22 Lymph % (Auto) 9.3 % 04/02/24 04:22 [place] % (Auto) 5.8 % 04/02/24 04:22 Eos % (Auto) 3.0 % 04/02/24 04:22 Baso % (Auto) 0.5 % 04/02/24 04:22 Neut # (Auto) 11.09 10^3/uL (1.8-7.7) H 04/02/24 04:22 Lymph # (Auto) 1.3 10^3/uL (0.8-4.8) 04/02/24 04:22 Stevens # (Auto) 0.8 10^3/uL (0.2-0.9) 04/02/24 04:22 Eos # (Auto) 0.4 10^3/uL (0.0-0.8) 04/02/24 04:22 Baso # (Auto) 0.1 10^3/uL (0.0-0.1) 04/02/24 04:22 Nucleated RBC % (auto) 0 % 04/02/24 04:22 Nucleated RBCs # 0.0 /100WBC 04/02/24 04:22 PT 14.70 SECONDS (12.1-14.9) 03/30/24 06:23 INR 1.11 (0.8-1.2) 03/30/24 06:23 APTT 28.5 SECONDS (23.9-36.7) 03/30/24 06:23 Sodium 140 mmol/L (136-145) 04/02/24 04:22 Potassium 3.7 mmol/L (3.5-5.1) 04/02/24 04:22 Chloride 97 mmol/L (98-107) L 04/02/24 04:22 Carbon Dioxide 26 mmol/L (22-29) 04/02/24 04:22 Anion Gap 20.7 (5-19) H 04/02/24 04:22 BUN 53 mg/dL (8-23) H 04/02/24 04:22 Creatinine 4.7 mg/dL (0.5-0.9) H 04/02/24 04:22 GFR Calculation Not Reportable 04/02/24 04:22 Glucose 128 mg/dL (65-115) H 04/02/24 04:22 POC Glucose 133 mg/dL (70-110) H 04/02/24 09:03 Estimat Average Glucose 123 03/30/24 06:23 Hemoglobin A1c 5.9 % (4.0-6.0) 03/30/24 06:23 Calculated Osmolality 306 mOsm/kg (285-295) H 04/02/24 04:22 Calcium 8.4 mg/dL (8.5-10.5) L 04/02/24 04:22 Phosphorus 4.5 mg/dL (2.5-4.5) 03/31/24 03:11 Magnesium 1.7 mg/dL (1.7-2.3) 03/31/24 03:11 Total Bilirubin 0.6 mg/dL (0.15-1.2) 04/02/24 04:22 AST 13 U/L (0-32) 04/02/24 04:22 ALT < 5 U/L (0-33) 04/02/24 04:22 Alkaline Phosphatase 121 U/L (35-105) H 04/02/24 04:22 Total Protein 7.1 g/dL (6.6-8.7) 04/02/24 04:22 Albumin 3.9 g/dL (3.5-5.2) 04/02/24 04:22 Globulin 3.2 g/dL (1.3-4.6) 04/02/24 04:22 Triglycerides 182 mg/dL (0-150) H 03/31/24 03:11 Cholesterol 116 mg/dL (0-200) 03/31/24 03:11 LDL Cholesterol, Calc 57 mg/dL (50-129) 03/31/24 03:11 HDL Cholesterol 23 mg/dL (60-100) L 03/31/24 03:11 LDL/HDL Ratio 2.48 RATIO (0.00-3.22) 03/31/24 03:11 Cholesterol/HDL Ratio 5.04 mg/dL (0.0-4.40) H 03/31/24 03:11 Procalcitonin 0.26 ng/mL (0-0.5) 03/31/24 03:11 TSH 5.03 uIU/mL (0.27-4.20) H 03/30/24 06:23 Urine Color Yellow (Yellow) 03/30/24 07:57 Urine Appearance Clear (CLEAR) 03/30/24 07:57 Urine pH 8.0 (5-7) A 03/30/24 07:57 Ur Specific [place] 1.011 (1.005-1.030) 03/30/24 07:57 Urine Protein 2+ (Negative) A 03/30/24 07:57 Urine Glucose (UA) Negative (Normal) 03/30/24 07:57 Urine Ketones Negative (Negative) 03/30/24 07:57 Urine Blood Negative (Negative) 03/30/24 07:57 Urine Nitrate Negative (Negative) 03/30/24 07:57 Urine Bilirubin Negative (Negative) 03/30/24 07:57 Urine Urobilinogen 0.2 mg/dL (Negative) 03/30/24 07:57 Ur Leukocyte Esterase Negative (Negative) 03/30/24 07:57 Urine RBC 0-2 /hpf (0-2) 03/30/24 07:57 Urine WBC 0-5 /hpf (0-5) 03/30/24 07:57 Ur Squamous Epith Cells 0-5 /hpf (0-5) 03/30/24 07:57 Amorphous Sediment Not Reportable 03/30/24 07:57 Urine Bacteria None seen /hpf (NONE) 03/30/24 07:57 Hyaline Casts 0.81 /lpf 03/30/24 07:57 Vancomycin Trough 32.1 ug/mL (10-15) H* 04/02/24 04:22 Coronavirus (PCR) Negative (Negative) 03/30/24 08:00 Hep Bs Antigen Non-reactive (Nonreactive) 03/31/24 03:11 Hep Bs Antibody > 1000.0 (11.5-1000) H 03/31/24 03:11 Hep B Core Total Ab Non-reactive (Nonreactive) 03/31/24 03:11 Hepatitis C Antibody Non-reactive (Nonreactive) 03/31/24 03:11 Influenza A (PCR) Negative (Negative) 03/30/24 08:00 Influenza Type B (PCR) Negative (Negative) 03/30/24 08:00 RSV (PCR) Negative (Negative) 03/30/24 08:00 Vitals Last Vital Signs Temp 98.2 F 04/02/24 07:51 Pulse 63 04/02/24 07:51 Resp 18 04/02/24 07:51 BP 150/72 04/02/24 07:51 Pulse Ox 92 04/02/24 07:24 O2 Del Method Nasal Cannula 04/02/24 07:24 O2 Flow Rate 2 04/02/24 07:24 Discharge Plan Discharge Patient Disposition: Xfer SNF Condition: Stable Prescriptions: Continued (DME) Stump Injury Prevention Coordinator See Rx Instructions .Route .MEDSUPPLY Qty: 1 0RF Rx Instructions: As directed bisacodyl 10 mg Suppository 10 mg OR DAILY PRN (Reason: Constipation) vitamin A and D Ointment See Rx Instructions .ROUTE .COMPLEX Rx Instructions: APPLY TOPICALLY AEVERY SHIFT TO BLATERAL BUTTUCK: CLEANSE WITH SOAP AND WATER AND APPLY A AND D OINTMENT FOR SHEER PREVENTION. sucralfate 1 gram tablet 1 g PO BID sertraline 100 mg tablet 100 mg PO DAILY alprazolam [Xanax] 0.5 mg Tablet 0.5 mg PO TID PRN (Reason: Anxiety) pantoprazole 40 mg tablet,delayed release (DR/EC) 40 mg PO BID diphenhydramine HCl [Benadryl] 25 mg Capsule 25 mg PO DAILY PRN (Reason: Itching) docusate sodium [Colace] 100 mg Capsule 100 mg PO DAILY sevelamer carbonate [Renvela] 800 mg Tablet 1,600 mg PO TID Rx Instructions: must administer with a meal/food levothyroxine 150 mcg Tablet 150 mcg PO DAILY trihexyphenidyl 2 mg Tablet 2 mg PO TID Rx Instructions: give with food (meal/snack) cetirizine 10 mg Tablet 10 mg PO DAILY nystatin 100,000 unit/gram Powder 1 applic TOPICAL BID PRN (Reason: Skin Irritation) fluticasone propionate [Flonase Allergy Relief] 50 mcg/actuation [place],Suspension 1 mcg INTRANASAL BID white petrolatum [Vaseline] Gel 1 applic TOPICAL PRN Rx Instructions: apply to buttock every shift for prevention insulin glargine [Basaglar KwikPen U-100 Insulin] 100 unit/mL (3 mL) Insulin Pen 35 unit SUBCUT BEDTIME Ozempic 0.25 mg or 0.5 mg (2 mg/3 mL) Pen Injector 0.25 mg SUBCUT Q7D tizanidine 4 mg tablet 4 mg PO DAILY gabapentin 100 mg Capsule 100 mg PO TID Qty: 1 0RF Rx Instructions: Dose change only Eliquis 5 mg Tablet 5 mg PO BID acetaminophen 500 mg tablet 650 mg PO BID PRN (Reason: Pain) furosemide [Lasix] 40 mg Tablet 40 mg PO BID metoprolol tartrate 100 mg Tablet 100 mg PO BID ondansetron HCl 4 mg Tablet 4 mg PO Q6H PRN (Reason: Nausea And Vomiting) clonidine HCl 0.3 mg Tablet 0.3 mg PO Q8H PRN (Reason: systolic bp >160) loperamide [Imodium A-D] 2 mg Tablet 2 mg PO Q6H PRN (Reason: Loose Stool) metolazone 5 mg Tablet 5 mg PO QAM simvastatin 40 mg Tablet 40 mg PO BEDTIME@21 Renal Caps 1 mg Capsule 1 cap PO QPM carbidopa-levodopa 25-100 mg Tablet See Rx Instructions .ROUTE .COMPLEX Rx Instructions: GIVE 3 TABLETS BY MOUTH AT 8 AM AND NOON AND 2 TABLETS AT 6 PM. insulin aspart U-100 [Novolog FlexPen U-100 Insulin] 100 unit/mL (3 mL) Insulin Pen See Rx Instructions .ROUTE .COMPLEX Rx Instructions: sliding scale three times a day. IF BS LESS THAN 60, CALL MD. FOR BS 150-200=3 units 201-250=5 units 251-300=7 units 301-350=9 units 351-400=11 units call provider for bs <60 or >400 solifenacin 5 mg Tablet 5 mg PO QAM fluticasone propion-salmeterol [Advair HFA] 115-21 mcg/actuation Hfa Aerosol Inhaler 2 puff INHALATION BID cholecalciferol (vitamin D3) [Vitamin D3] 50 mcg (2,000 unit) Capsule 6,000 unit PO DAILY [place] 0.01 % Drops 1 drp OPHTHALMIC (EYE) BEDTIME Changed hydromorphone [Dilaudid] 4 mg Tablet 2 mg PO Q4H PRN (Reason: Pain) Qty: 1 0RF Rx Instructions: dose adjustment only Discontinued fentanyl 50 mcg/hr Patch 72 Hour 1 patch transdermal Q72H Qty: 2 0RF oxycodone 10 mg tablet 10 mg PO Q8H PRN (Reason: Pain) Discharge Orders: Discharge Order (Routine); Ordered 04/02/24 Ordered By: Prince Yoon Referrals: [facility] [Outside] Brandi Escalera MD [Primary Care Provider] - 4-7 days Discharge Activity: Increase activity as tolerated Patient Instructions: Dialysis Nutrition Plan (DC), Hemodialysis (DC), Opioid Safety Activity Restrictions/Additional Instructions: Please follow-up with your primary doctor for continued optimization of pain control, as well as discontinuation of any nonessential medications which could contribute to mental status changes. Try to wean off and discontinue Xanax if possible. Please continue to de-escalate opioid pain medications to the minimal necessary. Continue Dilaudid for pain control. Please never double up fentanyl patches. Please do not take any oxycodone or other opioids. Do not resume fentanyl patches. Continue wound care for moisture injury on upper buttocks. Continue eliecer-care. Discharge Attestations Time Spent in Discharge Care*: greater than 30 min Status at Discharge: Cognitive status at discharge: cognitively intact, Behavioral status at discharge: cooperative, Quality Metrics Clinical Quality Measures [ No reported AMI, CVA or VTE this stay] Coding Level of Care Code 66923 Total time (in minutes) for Discharge: 45 Diagnoses ESRD on hemodialysis N18.6; Z99.2
--- NOTE | 2024-04-02 10:09 | PC.SOCIAL ---
IMM Update pg 2 of IMM Updated and reviewed w/ patient. Copy provided and copy dated, initialed and placed in chart.
[2024-04-02] MEDS: metoprolol tartrate 25 mg Tablet PO (12:18)
--- NOTE | 2024-04-02 12:42 | PC.NURSE ---
Patient refuses to turn on side. Explained the buttocks would get worse if patient continued to lay on back. Patient stated she could not lay on side.
--- NOTE | 2024-04-02 14:57 | PC.NURSE ---
Called Report to Aurora Paniagua RN at [address] [place] [address]
== END 2024-04-02 13:10 | disposition skilled nursing facility (03) | DRG 91 ==
LOC: ER 07:15 → MEDSURG 10:25
PROVIDERS: Hospitalist; Admitting Provider Student in an Organized Health Care Education/Training Program; Emergency Provider Emergency Medicine; PCP Family Medicine; Visit Provider Internal Medicine
DX: G92.8 Other toxic encephalopathy (principal); N18.6 End stage renal disease; I12.0 Hypertensive chronic kidney disease with stage 5 chronic kidney disease or end stage renal disease; T40.415A Adverse effect of fentanyl or fentanyl analogs, initial encounter; E11.22 Type 2 diabetes mellitus with diabetic chronic kidney disease; Z99.2 Dependence on renal dialysis; E11.40 Type 2 diabetes mellitus with diabetic neuropathy, unspecified; G89.29 Other chronic pain; G20.A1 Parkinson's disease without dyskinesia, without mention of fluctuations; I48.91 Unspecified atrial fibrillation; I25.10 Atherosclerotic heart disease of native coronary artery without angina pectoris; M54.9 Dorsalgia, unspecified; E03.9 Hypothyroidism, unspecified; M79.7 Fibromyalgia; E78.5 Hyperlipidemia, unspecified; J44.9 Chronic obstructive pulmonary disease, unspecified; M96.1 Postlaminectomy syndrome, not elsewhere classified; D63.1 Anemia in chronic kidney disease; I27.20 Pulmonary hypertension, unspecified; Z79.4 Long term (current) use of insulin; Z79.85 Long-term (current) use of injectable non-insulin antidiabetic drugs; Z79.01 Long term (current) use of anticoagulants; Z79.891 Long term (current) use of opiate analgesic; Z88.2 Allergy status to sulfonamides; Z86.14 Personal history of Methicillin resistant Staphylococcus aureus infection; Z87.440 Personal history of urinary (tract) infections; Z86.711 Personal history of pulmonary embolism; Z87.891 Personal history of nicotine dependence; Z86.73 Personal history of transient ischemic attack (TIA), and cerebral infarction without residual deficits; Z87.01 Personal history of pneumonia (recurrent); Z89.512 Acquired absence of left leg below knee; Z90.710 Acquired absence of both cervix and uterus; Z90.49 Acquired absence of other specified parts of digestive tract; Z83.3 Family history of diabetes mellitus; Z82.49 Family history of ischemic heart disease and other diseases of the circulatory system
CPT/HCPCS: 0241U; 36415; 36416; 70450; 71045; 80053; 80061; 80202; 81001; 82962; 83036; 83735; 84100; 84145; 84443; 85025; 85610; 85730; 86403; 86705; 86706; 86803; 87040; 87340; 90935; 92523; 92610; 93005; 94664; 96372; 96374; 96375; 99285; J1644; J1815; J2060; J2185; J2270; J2470; J3010; J3370; J3372; J7050; Q3014

== ENCOUNTER 2024-04-12 22:34 | Emergency (ER) | payer MEDICARE, OTHER, MEDICAID, SELFPAY ==
[2024-04-12 22:41] VITALS: BP 206/77; PULSE 61; RESP 20; TEMP 36.9; O2SAT 99
--- NOTE | 2024-04-12 22:57 | XRR_ITS ---
PROCEDURE INFORMATION: Exam: XR Chest Exam date and time: 04/12/2024 11:11 PM Age: 79 years old Clinical indication: Prior surgery; Surgery date: 6+ months; Surgery type: Spinal stimulator; Patient HX: C/O cough. History of copd. TECHNIQUE: Imaging protocol: Radiologic exam of the chest. Views: 1 view. COMPARISON: CR (CHEST, ) 05/11/2023 11:58 FINDINGS: Tubes, catheters and devices: Neurostimulator in stable position with a past overlying the lower thoracic spine. Lungs: Mild carotid vascular congestion with peribronchovascular haze consistent with edema. A right lower lobe consolidation. Pleural spaces: Small bilateral pleural effusions. Heart/Mediastinum: Stable mild cardiomegaly. Bones/joints: No acute fracture is identified. XR/XR chest 1V portable [id number] IMPRESSION: 1. Mild cardiovascular congestion with peribronchovascular haze consistent with edema. 2. A right lower lobe consolidation. This may represent edema, atelectasis or in the appropriate clinical setting, pneumonia. 3. Small bilateral pleural effusions.
--- NOTE | 2024-04-12 23:04 | W.ED.NAVMDI ---
HPI - Nausea/Vomiting/Diarrhea General: Chief complaint: Nausea/Vomiting/Diarrhea Stated complaint: N/v Time Seen by Provider: 04/12/24 22:36 History of Present Illness: Presents to the ER with complaints of nausea for the last 3 days. States she has not been feeling good all over. Patient states the facility has been out of her pain medicine since at least Sunday. Patient is also a dialysis patient and she is has had dialysis with no interruption. Patient is an insulin-dependent diabetic. She still produces urine I think she may also have urinary tract infection. Related Data Home Medications Medication Instructions Recorded Confirmed bimatoprost 0.01 % eye drops 1 drp ophthalmic (eye) BEDTIME 04/07/22 03/30/24 (Pepe) carbidopa 25 mg-levodopa 100 mg See Rx Instructions .Route .COMPLEX 04/07/22 03/30/24 tablet cholecalciferol (vitamin D3) 50 6,000 unit PO DAILY 04/07/22 03/30/24 mcg (2,000 unit) capsule (Vitamin D3) clonidine HCl 0.3 mg tablet 0.3 mg PO Q8H PRN systolic bp >160 04/07/22 03/30/24 fluticasone propionate 115 2 puff inhalation BID 04/07/22 03/30/24 mcg-salmeterol 21 mcg/actuation HFA inhaler (Advair HFA) furosemide 40 mg tablet (Lasix) 40 mg PO BID 04/07/22 03/30/24 insulin aspart U-100 100 unit/mL See Rx Instructions .Route .COMPLEX 04/07/22 03/30/24 (3 mL) subcutaneous pen (Novolog FlexPen U-100 Insulin aspart) loperamide 2 mg tablet (Imodium 2 mg PO Q6H PRN Loose Stool 04/07/22 03/30/24 A-D) metolazone 5 mg tablet 5 mg PO QAM 04/07/22 03/30/24 metoprolol tartrate 100 mg tablet 100 mg PO BID 04/07/22 03/30/24 ondansetron HCl 4 mg tablet 4 mg PO Q6H PRN Nausea And Vomiting 04/07/22 03/30/24 simvastatin 40 mg tablet 40 mg PO BEDTIME@21 04/07/22 03/30/24 solifenacin 5 mg tablet 5 mg PO QAM 04/07/22 03/30/24 vitamin B complex and vitamin C 1 cap PO QPM 04/07/22 03/30/24 no.20-folic acid 1 mg capsule (Renal Caps) bisacodyl 10 mg rectal suppository 10 mg LA DAILY PRN Constipation 07/14/22 03/30/24 alprazolam 0.5 mg tablet (Xanax) 0.5 mg PO TID PRN Anxiety 04/29/23 03/30/24 diphenhydramine HCl 25 mg capsule 25 mg PO DAILY PRN Itching 04/29/23 03/30/24 (Benadryl) docusate sodium 100 mg capsule 100 mg PO DAILY 04/29/23 03/30/24 (Colace) pantoprazole 40 mg tablet,delayed 40 mg PO BID 04/29/23 03/30/24 release sertraline 100 mg tablet 100 mg PO DAILY 04/29/23 03/30/24 sevelamer carbonate 800 mg tablet 1,600 mg PO TID 04/29/23 03/30/24 (Renvela) sucralfate 1 gram tablet 1 g PO BID 04/29/23 03/30/24 vitamin A and D See Rx Instructions .Route .COMPLEX 04/29/23 03/30/24 cetirizine 10 mg tablet 10 mg PO DAILY 03/19/24 03/30/24 fluticasone propionate 50 1 mcg intranasal BID 03/19/24 03/30/24 mcg/actuation nasal spray,suspension (Flonase Allergy Relief) insulin glargine 100 unit/mL (3 35 unit SUBCUT BEDTIME 03/19/24 03/30/24 mL) subcutaneous pen (Basaglar KwikPen U-100 Insulin) levothyroxine 150 mcg tablet 150 mcg PO DAILY 03/19/24 03/30/24 nystatin 100,000 unit/gram topical 1 applic topical BID PRN Skin 03/19/24 03/30/24 powder Irritation semaglutide 0.25 mg or 0.5 mg (2 0.25 mg SUBCUT Q7D 03/19/24 03/30/24 mg/3 mL) subcutaneous pen injector (Ozempic) tizanidine 4 mg tablet 4 mg PO DAILY 03/19/24 03/30/24 trihexyphenidyl 2 mg tablet 2 mg PO TID 03/19/24 03/30/24 white petrolatum (Vaseline jelly, 1 applic topical PRN 03/19/24 03/30/24 topical) acetaminophen 500 mg tablet 650 mg PO BID PRN Pain 03/30/24 03/30/24 apixaban 5 mg tablet (Eliquis) 5 mg PO BID 03/30/24 03/30/24 Previous Rx's Medication Instructions Recorded [place] Sales [employer] #1 ea 11/21/22 gabapentin 100 mg capsule 100 mg PO TID #1 cap 03/22/24 hydromorphone 4 mg tablet 2 mg (1/2 x 4 mg) PO Q4H PRN Pain 04/02/24 (Dilaudid) #1 tab ciprofloxacin HCl 500 mg tablet 500 mg PO DAILY On dialysis days 04/13/24 after dialysis x 3 doses #3 tabs hydrocodone 5 mg-acetaminophen 325 1 tab PO Q6H PRN pain #10 tabs 04/13/24 mg tablet Allergies Allergy/AdvReac Type Severity Reaction Status Date / Time sulfamethoxazole Allergy Rash Verified 04/12/24 22:43 [From Septra] trimethoprim [From Septra] Allergy Rash Verified 04/12/24 22:43 pregabalin [From Lyrica] AdvReac Loopy/Unste Verified 04/12/24 22:43 anoop Review of Systems General: Reports: 10 or more systems reviewed and unremarkable except in HPI and below PFSH ED PFSH: Medical History Diabetic ulcer of left foot Gangrene of left foot Goals of care, counseling/discussion CAD (coronary artery disease) Pulmonary hypertension Elevated troponin History of pulmonary embolism Chest pain 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 Charcot's joint of left foot MRSA bacteremia ESRD (end stage renal disease) ESRD (end stage renal disease) Chronic kidney disease Hyponatremia Influenza A Pneumonia Iron deficiency anemia Acute exacerbation of CHF (congestive heart failure) Bilateral lower extremity edema Neuropathy Chronic renal insufficiency Post laminectomy syndrome Lumbar disc disease with radiculopathy Sciatica associated with disorder of lumbosacral spine Uncontrolled insulin dependent diabetes mellitus Diabetes mellitus type 2, insulin dependent COPD (chronic obstructive pulmonary disease) Hyperlipemia Vitamin D deficiency Parkinson disease Chronic insomnia Stage 4 chronic renal impairment associated with type 2 diabetes mellitus History of CVA (cerebrovascular accident) Anemia in chronic illness Hypertension Fibromyalgia Diabetic neuropathy Hypothyroidism Surgical History History of left below knee amputation S/P dialysis catheter insertion History of colonoscopy 2020 Hx of hysterectomy Hx of cholecystectomy Hx of foot surgery Family History Father CAD (coronary artery disease) Mother CAD (coronary artery disease) Diabetes Grandfather CAD (coronary artery disease) Diabetes Social History Smoking and tobacco/nicotine status: former use of tobacco/nicotine Second hand smoke exposure: No Alcohol intake: current Alcohol intake frequency: holidays/special occasions only Alcohol type: hard liquor Substance/Drug Use: never Physical Exam Const: COMMON NORMALS: no acute distress, average body habitus, patient oriented x3, no limitations, healthy appearing, alert and well nourished HENMT: COMMON NORMALS: normocephalic, atraumatic, hearing grossly normal bilaterally, external ears normal, Normal external nose present and moist oral mucous membranes HEAD & SCALP: normocephalic and atraumatic NOSE: Normal external nose present EXTERNAL EAR: Yes external ears normal Neck/C-Spine: COMMON NORMALS: no JVD Chest: COMMONS NORMALS: normal inspection of the chest and normal palpation of entire chest wall Resp: COMMON NORMALS: normal respiratory effort, No retractions, No use of accessory muscles and clear to auscultation bilaterally AUSCULTATION: clear to auscultation bilaterally Cardio: COMMON NORMALS: no JVD, regular rate, regular rhythm, S1 normal heart sound present, S2 normal heart sound present, No gallops present (Cardio), No clicks present (Cardio), No murmurs present (Cardio) and No rub (Cardio) RATE: regular rate RHYTHM: regular rhythm HEART SOUNDS: S1 normal heart sound present and S2 normal heart sound present GI: COMMON NORMALS: Normal to inspection, nondistended, normoactive bowel sounds present, Soft to palpation, non-tender, No hepatosplenomegaly present and no masses PALPATION: Yes Soft to palpation and Yes No hepatosplenomegaly present Neuro: COMMON NORMALS: patient oriented x3 SENSORIUM/ORIENTATION: Yes alert Course Vital Signs: Vital signs: Vital Signs Temperature 98.5 F 04/12/24 22:41 Pulse Rate 61 04/12/24 22:41 Respiratory Rate 18 04/12/24 23:23 Blood Pressure 206/77 04/12/24 22:41 Pulse Oximetry 99 04/12/24 22:41 Oxygen Delivery Me thod Nasal Cannula 04/12/24 22:41 Oxygen Flow Rate 4 04/12/24 22:41 MDM - Nausea/Vomiting/Diarrhea Medical Decision Making UA showed infection, lab work unremarkable, patient is given Cipro here as well as 1/2 mg Dilaudid. Patient be discharged on Cipro and [place]. Patient to follow-up with his PCP on Sunday. Medical Records I reviewed the patient's medical records. Lab Data I reviewed the patient's lab results. 04/12/24 23:12 04/12/24 23:12 Radiology Impressions Chest X-Ray 04/12/24 22:57 IMPRESSION: 1. Mild cardiovascular congestion with peribronchovascular haze consistent with edema. 2. A right lower lobe consolidation. This may represent edema, atelectasis or in the appropriate clinical setting, pneumonia. 3. Small bilateral pleural effusions. Laboratory Results WBC 10.16 10^3/uL (3.29-11.43) 04/12/24 23:12 RBC 3.10 10^6/uL (3.85-5.65) L 04/12/24 23:12 Hgb 9.50 g/dL (11.27-16.99) L 04/12/24 23:12 Hct 30.5 % (36-47) L 04/12/24 23:12 MCV 98.4 fl (85-98) H 04/12/24 23:12 MCH 30.6 pg (27-33) 04/12/24 23:12 MCHC 31.1 g/dL (30-55) 04/12/24 23:12 RDW 15.5 % (12.1-15.1) H 04/12/24 23:12 Plt Count 234 10^3/cmm (157-399) 04/12/24 23:12 MPV 10.8 fL (7.4-10.4) H 04/12/24 23:12 Neut % (Auto) 79.3 % 04/12/24 23:12 Lymph % (Auto) 12.7 % 04/12/24 23:12 [place] % (Auto) 5.1 % 04/12/24 23:12 Eos % (Auto) 1.8 % 04/12/24 23:12 Baso % (Auto) 0.6 % 04/12/24 23:12 Neut # (Auto) 8.06 10^3/uL (1.8-7.7) H 04/12/24 23:12 Lymph # (Auto) 1.3 10^3/uL (0.8-4.8) 04/12/24 23:12 [place] # (Auto) 0.5 10^3/uL (0.2-0.9) 04/12/24 23:12 Eos # (Auto) 0.2 10^3/uL (0.0-0.8) 04/12/24 23:12 Baso # (Auto) 0.1 10^3/uL (0.0-0.1) 04/12/24 23:12 Nucleated RBC % (auto) 0 % 04/12/24 23:12 Nucleated RBCs # 0.0 /100WBC 04/12/24 23:12 Sodium 141 mmol/L (136-145) 04/12/24 23:12 Potassium 4.1 mmol/L (3.5-5.1) 04/12/24 23:12 Chloride 98 mmol/L (98-107) 04/12/24 23:12 Carbon Dioxide 29 mmol/L (22-29) 04/12/24 23:12 Anion Gap 18.1 (5-19) 04/12/24 23:12 BUN 32 mg/dL (8-23) H 04/12/24 23:12 Creatinine 3.7 mg/dL (0.5-0.9) H 04/12/24 23:12 GFR Calculation Not Reportable 04/12/24 23:12 Glucose 145 mg/dL (65-115) H 04/12/24 23:12 Calculated Osmolality 301 mOsm/kg (285-295) H 04/12/24 23:12 Calcium 9.1 mg/dL (8.5-10.5) 04/12/24 23:12 Phosphorus 2.8 mg/dL (2.5-4.5) 04/12/24 23:12 Magnesium 1.8 mg/dL (1.7-2.3) 04/12/24 23:12 Total Bilirubin 0.7 mg/dL (0.15-1.2) 04/12/24 23:12 AST 15 U/L (0-32) 04/12/24 23:12 ALT < 5 U/L (0-33) 04/12/24 23:12 Alkaline Phosphatase 123 U/L (35-105) H 04/12/24 23:12 Total Protein 7.3 g/dL (6.6-8.7) 04/12/24 23:12 Albumin 4.0 g/dL (3.5-5.2) 04/12/24 23:12 Globulin 3.3 g/dL (1.3-4.6) 04/12/24 23:12 Urine Color Yellow (Yellow) 04/12/24 23:33 Urine Appearance Clear (CLEAR) 04/12/24 23:33 Urine pH 8.5 (5-7) A 04/12/24 23:33 Ur Specific [place] 1.010 (1.005-1.030) 04/12/24 23:33 Urine Protein 2+ (Negative) A 04/12/24 23:33 Urine Glucose (UA) Negative (Normal) 04/12/24 23:33 Urine Ketones Negative (Negative) 04/12/24 23:33 Urine Blood Negative (Negative) 04/12/24 23:33 Urine Nitrate Negative (Negative) 04/12/24 23:33 Urine Bilirubin Negative (Negative) 04/12/24 23:33 Urine Urobilinogen 0.2 mg/dL (Negative) 04/12/24 23:33 Ur Leukocyte Esterase 2+ (Negative) A 04/12/24 23:33 Urine RBC 0-2 /hpf (0-2) 04/12/24 23:33 Urine WBC 51-100 /hpf (0-5) H 04/12/24 23:33 Ur Squamous Epith Cells 10-15 /hpf (0-5) H 04/12/24 23:33 Amorphous Sediment Not Reportable 04/12/24 23:33 Urine Bacteria None seen /hpf (NONE) 04/12/24 23:33 Hyaline Casts 1.21 /lpf 04/12/24 23:33 All radiology interpretation(s) finalized by discharge Discharge Plan Discharge Patient Disposition: Home Clinical Impression: Urinary tract infection Qualifiers: Urinary tract infection type: acute cystitis Hematuria presence: with hematuria Qualified Code(s): N30.01 - Acute cystitis with hematuria Condition: Stable Prescriptions: New hydrocodone-acetaminophen 5-325 mg tablet 1 tab PO Q6H PRN (Reason: pain) Qty: 10 0RF ciprofloxacin HCl 500 mg tablet 500 mg PO DAILY Qty: 3 0RF No Action (DME) [place] Sales Representative See Rx Instructions .Route .MEDSUPPLY Qty: 1 0RF Rx Instructions: As directed bisacodyl 10 mg Suppository 10 mg LA DAILY PRN (Reason: Constipation) vitamin A and D Ointment See Rx Instructions .ROUTE .COMPLEX Rx Instructions: APPLY TOPICALLY AEVERY SHIFT TO BLATERAL BUTTUCK: CLEANSE WITH SOAP AND WATER AND APPLY A AND D OINTMENT FOR SHEER PREVENTION. sucralfate 1 gram tablet 1 g PO BID sertraline 100 mg tablet 100 mg PO DAILY alprazolam [Xanax] 0.5 mg Tablet 0.5 mg PO TID PRN (Reason: Anxiety) pantoprazole 40 mg tablet,delayed release (DR/EC) 40 mg PO BID diphenhydramine HCl [Benadryl] 25 mg Capsule 25 mg PO DAILY PRN (Reason: Itching) docusate sodium [Colace] 100 mg Capsule 100 mg PO DAILY sevelamer carbonate [Renvela] 800 mg Tablet 1,600 mg PO TID Rx Instructions: must administer with a meal/food levothyroxine 150 mcg Tablet 150 mcg PO DAILY trihexyphenidyl 2 mg Tablet 2 mg PO TID Rx Instructions: give with food (meal/snack) cetirizine 10 mg Tablet 10 mg PO DAILY nystatin 100,000 unit/gram Powder 1 applic TOPICAL BID PRN (Reason: Skin Irritation) fluticasone propionate [Flonase Allergy Relief] 50 mcg/actuation [place],Suspension 1 mcg INTRANASAL BID white petrolatum [Vaseline] Gel 1 applic TOPICAL PRN Rx Instructions: apply to buttock every shift for prevention insulin glargine [Basaglar KwikPen U-100 Insulin] 100 unit/mL (3 mL) Insulin Pen 35 unit SUBCUT BEDTIME Ozempic 0.25 mg or 0.5 mg (2 mg/3 mL) Pen Injector 0.25 mg SUBCUT Q7D tizanidine 4 mg tablet 4 mg PO DAILY gabapentin 100 mg Capsule 100 mg PO TID Qty: 1 0RF Rx Instructions: Dose change only Eliquis 5 mg Tablet 5 mg PO BID acetaminophen 500 mg tablet 650 mg PO BID PRN (Reason: Pain) hydromorphone [Dilaudid] 4 mg Tablet 2 mg PO Q4H PRN (Reason: Pain) Qty: 1 0RF Rx Instructions: dose adjustment only furosemide [Lasix] 40 mg Tablet 40 mg PO BID metoprolol tartrate 100 mg Tablet 100 mg PO BID ondansetron HCl 4 mg Tablet 4 mg PO Q6H PRN (Reason: Nausea And Vomiting) clonidine HCl 0.3 mg Tablet 0.3 mg PO Q8H PRN (Reason: systolic bp >160) loperamide [Imodium A-D] 2 mg Tablet 2 mg PO Q6H PRN (Reason: Loose Stool) metolazone 5 mg Tablet 5 mg PO QAM simvastatin 40 mg Tablet 40 mg PO BEDTIME@21 Renal Caps 1 mg Capsule 1 cap PO QPM carbidopa-levodopa 25-100 mg Tablet See Rx Instructions .ROUTE .COMPLEX Rx Instructions: GIVE 3 TABLETS BY MOUTH AT 8 AM AND NOON AND 2 TABLETS AT 6 PM. insulin aspart U-100 [Novolog FlexPen U-100 Insulin] 100 unit/mL (3 mL) Insulin Pen See Rx Instructions .ROUTE .COMPLEX Rx Instructions: sliding scale three times a day. IF BS LESS THAN 60, CALL MD. FOR BS 150-200=3 units 201-250=5 units 251-300=7 units 301-350=9 units 351-400=11 units call provider for bs <60 or >400 solifenacin 5 mg Tablet 5 mg PO QAM fluticasone propion-salmeterol [Advair HFA] 115-21 mcg/actuation Hfa Aerosol Inhaler 2 puff INHALATION BID cholecalciferol (vitamin D3) [Vitamin D3] 50 mcg (2,000 unit) Capsule 6,000 unit PO DAILY [place] 0.01 % Drops 1 drp OPHTHALMIC (EYE) BEDTIME Discharge Orders: Discharge ED (Routine); Ordered 04/13/24 Ordered By: Ru Cyr Referrals: Brandi Escalera MD [Primary Care Provider] - 1 week Patient Instructions: Opioid Safety, Pain Management, Urinary Tract Infection - Women Activity Restrictions/Additional Instructions: [facility] Please realize that you were seen in the emergency department and that we are providing you with an emergency medical screening exam and this may not be a complete and all exclusive of all testing and/or medical workup we may need to determine your element or severity of your illness. It is very important that you follow-up as instructed with your primary care provider or specialist for the additional evaluation and to discuss your medical treatment plan. You may return to the emergency department should you have concerns or if your condition changes or worsens in any way. Coding Level of Care Code ED Quality Assurance Monitor Body for Dominick Baca
[2024-04-12 23:19] LABS: Basophils # 0.1 10^3/uL (0.0-0.1); Basophils % 0.6 %; Eosinophils # 0.2 10^3/uL (0.0-0.8); Eosinophils % 1.8 %; Hematocrit 30.5 % (36-47); Lymphocytes # 1.3 10^3/uL (0.8-4.8); Lymphocytes % 12.7 %; Mean Corpuscular HGB Conc 31.1 g/dL (30-55); Mean Corpuscular Hemoglobin 30.6 pg (27-33); Mean Corpuscular Volume 98.4 fl (85-98); Mean Platelet Volume 10.8 fL (7.4-10.4); Monocytes # 0.5 10^3/uL (0.2-0.9); Monocytes % 5.1 %; Neutrophils # 8.06 10^3/uL (1.8-7.7); Neutrophils % 79.3 %; Nucleated Red Blood Cells % 0 %; Platelet Count 234 10^3/cmm (157-399); Red Cell Distribution Width 15.5 % (12.1-15.1); White Blood Count 10.16 10^3/uL (3.29-11.43)
[2024-04-12] MEDS: ondansetron 2 mg/ML SDV 2 mL 4 MG IVP (23:22)
[2024-04-12 23:23] VITALS: RESP 18
[2024-04-12] MEDS: HYDROmorphone 1 mg/mL INJ 1 mL 0.5 MG IVP (23:23)
[2024-04-12 23:43] LABS: Bilirubin Urine Negative (Negative); Blood Urine Negative (Negative); Glucose Urine UA Negative (Normal); Ketones Urine Negative (Negative); Leukocyte Esterase Urine 2+ (Negative); Nitrate Urine Negative (Negative); Protein Urine 2+ (Negative); Urine Appearance Clear (CLEAR); Urine Color Yellow (Yellow); Urobilinogen Urine 0.2 mg/dL (Negative); pH Urine 8.5 (5-7)
[2024-04-12 23:43] LABS: Alanine Aminotransferase < 5 U/L (0-33); Alkaline Phosphatase 123 U/L (35-105); Anion Gap 18.1 (5-19); Aspartate Amino Transferase 15 U/L (0-32); Blood Urea Nitrogen 32 mg/dL (8-23); Calcium 9.1 mg/dL (8.5-10.5); Carbon Dioxide 29 mmol/L (22-29); Chloride 98 mmol/L (98-107); Creatinine Clr Calc Pharmacy 15.0685; Globulin 3.3 g/dL (1.3-4.6); Glucose 145 mg/dL (65-115); Magnesium 1.8 mg/dL (1.7-2.3); Osmolality Calculated 301 mOsm/kg (285-295); Phosphorus 2.8 mg/dL (2.5-4.5); Potassium 4.1 mmol/L (3.5-5.1); Sodium 141 mmol/L (136-145); Total Bilirubin 0.7 mg/dL (0.15-1.2); Total Protein 7.3 g/dL (6.6-8.7)
[2024-04-12 23:48] LABS: Add Urine Microscopic? YES; Bacteria Urine None Seen /hpf; Hyaline Casts Urine 1.21 /lpf; RBC Urine 0-2 /hpf (0-2); Universal Test for UA Present (0); WBC Urine 51-100 /hpf (0-5)
[2024-04-12 23:57] LABS: Add Urine Culture? No
[2024-04-13 00:23] VITALS: BP 189/65; PULSE 63; O2SAT 99
[2024-04-13] MEDS: ciprofloxacin 500 mg Tablet PO (00:23)
--- NOTE | 2024-04-13 00:29 | PC.NURSE ---
Spoke with Roseanne at [facility] re: update with dx and d/c back to [facility]. All questions answered.
--- NOTE | 2024-04-13 01:57 | PC.NURSE ---
Rounded on pt. Pt repositioned in bed. Warm blankets provided. Pt updated on delays
[2024-04-13 02:05] VITALS: BP 165/92; PULSE 69; O2SAT 96
== END 2024-04-13 02:09 | disposition home or self-care (01) ==
PROVIDERS: Nurse Practitioner; Emergency Provider Emergency Medicine; PCP Family Medicine
DX: N30.01 Acute cystitis with hematuria (principal); Z79.01 Long term (current) use of anticoagulants; Z79.4 Long term (current) use of insulin; Z87.891 Personal history of nicotine dependence; E11.22 Type 2 diabetes mellitus with diabetic chronic kidney disease; I12.0 Hypertensive chronic kidney disease with stage 5 chronic kidney disease or end stage renal disease; N18.6 End stage renal disease; J44.9 Chronic obstructive pulmonary disease, unspecified; E78.5 Hyperlipidemia, unspecified; Z86.73 Personal history of transient ischemic attack (TIA), and cerebral infarction without residual deficits; I25.10 Atherosclerotic heart disease of native coronary artery without angina pectoris
CPT/HCPCS: 71045; 80053; 81001; 83735; 84100; 85025; 96374; 96375; 99284; J1171; J2405

== ENCOUNTER 2024-04-22 14:51 | Emergency (ER) | payer MEDICARE, OTHER, MEDICAID, SELFPAY ==
[2024-04-22 14:58] VITALS: BP 136/54; PULSE 88; RESP 18; TEMP 36.9; O2SAT 98; BMI 34.9
[2024-04-22 15:03] VITALS: BP 123/94; PULSE 85; O2SAT 100
--- NOTE | 2024-04-22 15:04 | XRR_ITS ---
PROCEDURE INFORMATION: Exam: XR Left Tibia and Fibula Exam date and time: 04/22/2024 3:11 PM Age: 79 years old Clinical indication: Pain; Lower leg; Left; Prior surgery; Surgery date: 6+ months; Surgery type: Amputation partial TECHNIQUE: Imaging protocol: Radiologic exam of the left tibia and fibula. Views: 2 views. COMPARISON: CR XR tibia fibula LT 2V [id number] 07/15/2022 3:22 PM FINDINGS: Bones/joints: No acute fracture or malalignment. Remote [id number] amputation of the proximal 1/3 left tibial and fibular diaphyses. Smooth margins with no evidence of cortical erosion or periosteal reaction. Soft tissues: Adequate overlying soft tissue stump coverage. No acute soft tissue abnormality on this study. Previous soft tissue surgical donaldo have been discontinued. XR/XR tibia fibula LT 2V [id number] IMPRESSION: No acute fracture or malalignment. Remote [id number] amputation of the proximal 1/3 left tibial and fibular diaphyses. Smooth margins with no evidence of cortical erosion or periosteal reaction.
[2024-04-22 15:11] LABS: Basophils # 0.1 10^3/uL (0.0-0.1); Basophils % 0.5 %; Eosinophils # 0.2 10^3/uL (0.0-0.8); Eosinophils % 1.6 %; Lymphocytes % 15.2 %; Mean Corpuscular HGB Conc 31.4 g/dL (30-55); Mean Corpuscular Hemoglobin 31.1 pg (27-33); Mean Platelet Volume 10.2 fL (7.4-10.4); Monocytes # 0.8 10^3/uL (0.2-0.9); Monocytes % 5.8 %; Neutrophils # 9.89 10^3/uL (1.8-7.7); Neutrophils % 76.1 %; Nucleated Red Blood Cells % 0.2 %; Platelet Count 242 10^3/cmm (157-399); Red Blood Count 2.93 10^6/uL (3.85-5.65); White Blood Count 12.99 10^3/uL (3.29-11.43)
[2024-04-22 15:27] LABS: Alanine Aminotransferase < 5 U/L (0-33); Albumin Level 3.5 g/dL (3.5-5.2); Alkaline Phosphatase 121 U/L (35-105); Anion Gap 16.1 (5-19); Aspartate Amino Transferase 15 U/L (0-32); Blood Urea Nitrogen 9 mg/dL (8-23); C Reactive Protein 13.9 mg/L (0.0-4.9); Calcium 8.8 mg/dL (8.5-10.5); Carbon Dioxide 28 mmol/L (22-29); Chloride 97 mmol/L (98-107); Creatinine Clr Calc Pharmacy 26.5493; Globulin 3.5 g/dL (1.3-4.6); Glucose 131 mg/dL (65-115); Magnesium 1.5 mg/dL (1.7-2.3); Osmolality Calculated 286 mOsm/kg (285-295); Potassium 3.1 mmol/L (3.5-5.1); Sodium 138 mmol/L (136-145); Total Bilirubin 0.7 mg/dL (0.15-1.2)
[2024-04-22 16:03] VITALS: PULSE 83; O2SAT 98
[2024-04-22] MEDS: morphine 4 mg/mL SDV 1 mL IVP (16:19)
[2024-04-22] MEDS: orphenadrine 30 mg/mL Inj 2 mL 60 MG IVP (16:21)
--- NOTE | 2024-04-22 16:21 | ED_ITS ---
HPI - Extremity Problem 2 General: Chief complaint: Extremity Injury, Lower Stated complaint: Leg Pain Time Seen by Provider: 04/22/24 14:57 History of Present Illness: 79-year-old female presents to the [facility] ency room with complaint of pain at her amputation site in her left leg. Began shortly after she had finished dialysis. She feels they may have removed too much fluid. She denies any trauma or falls or injury to the stump. She states she has burnings pain similar to what she experienced after the amputation. No chest pain no shortness of breath. Patient is on Eliquis has been taking regularly. Associated symptoms: Deny chest pain, fever(s) or rash Related Data Home Medications Medication Instructions Recorded Confirmed bimatoprost 0.01 % eye drops 1 drp ophthalmic (eye) BEDTIME 04/07/22 04/22/24 (Alexandraigan) carbidopa 25 mg-levodopa 100 mg See Rx Instructions .Route .COMPLEX 04/07/22 04/22/24 tablet furosemide 40 mg tablet (Lasix) 40 mg PO BID 04/07/22 04/22/24 insulin aspart U-100 100 unit/mL See Rx Instructions .Route .COMPLEX 04/07/22 04/22/24 (3 mL) subcutaneous pen (Novolog FlexPen U-100 Insulin aspart) loperamide 2 mg tablet (Imodium 2 mg PO Q6H PRN Loose Stool 04/07/22 04/22/24 A-D) metolazone 5 mg tablet 5 mg PO QAM 04/07/22 04/22/24 metoprolol tartrate 100 mg tablet 100 mg PO BID 04/07/22 04/22/24 ondansetron HCl 4 mg tablet 4 mg PO Q6H PRN Nausea And Vomiting 04/07/22 04/22/24 simvastatin 40 mg tablet 40 mg PO BEDTIME@21 04/07/22 04/22/24 bisacodyl 10 mg rectal suppository 10 mg AK DAILY PRN Constipation 07/14/22 04/22/24 alprazolam 0.5 mg tablet (Xanax) 0.5 mg PO TID PRN Anxiety 04/29/23 04/22/24 sertraline 100 mg tablet 100 mg PO DAILY 04/29/23 04/22/24 sevelamer carbonate 800 mg tablet 1,600 mg PO TID 04/29/23 04/22/24 (Renvela) vitamin A and D See Rx Instructions .Route .COMPLEX 04/29/23 04/22/24 fluticasone propionate 50 1 mcg intranasal BID 03/19/24 04/22/24 mcg/actuation nasal spray,suspension (Flonase Allergy Relief) insulin glargine 100 unit/mL (3 35 unit SUBCUT BEDTIME 03/19/24 04/22/24 mL) subcutaneous pen (Basaglar KwikPen U-100 Insulin) levothyroxine 150 mcg tablet 150 mcg PO DAILY 03/19/24 04/22/24 trihexyphenidyl 2 mg tablet 2 mg PO TID 03/19/24 04/22/24 white petrolatum (Vaseline jelly, 1 applic topical PRN 03/19/24 04/22/24 topical) apixaban 5 mg tablet (Eliquis) 5 mg PO BID 03/30/24 04/22/24 acetaminophen 325 mg tablet 650 mg PO Q6H 04/22/24 04/22/24 gabapentin 100 mg capsule 200 mg PO QPM 04/22/24 04/22/24 omeprazole 20 mg capsule,delayed 20 mg PO BID 04/22/24 04/22/24 release Previous Rx's Medication Instructions Recorded 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 #1 ea 11/21/22 hydromorphone 4 mg tablet 2 mg (1/2 x 4 mg) PO Q4H PRN Pain 04/02/24 (Dilaudid) #1 tab ciprofloxacin HCl 500 mg tablet 500 mg PO DAILY On dialysis days 04/13/24 after dialysis x 3 doses #3 tabs Allergies Allergy/AdvReac Type Severity Reaction Status Date / Time sulfamethoxazole Allergy Rash Verified 04/22/24 15:03 [From Septra] trimethoprim [From Septra] Allergy Rash Verified 04/22/24 15:03 pregabalin [From Lyrica] AdvReac Loopy/Unste Verified 04/22/24 15:03 anoop Review of Systems 2 Const: Denies: fever(s) or chills Card: Denies: chest pain Resp: Denies: dyspnea GI: Denies: abdominal pain : Denies: dysuria, urinary frequency or urinary urgency Musc: Reports: extremity pain; Denies: neck pain or back pain Skin/Breast: Denies: rash PFS ED 2 PFSH: Medical History Diabetic ulcer of left foot Gangrene of left foot Goals of care, counseling/discussion CAD (coronary artery disease) Pulmonary hypertension Elevated troponin History of pulmonary embolism Chest pain 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 Charcot's joint of left foot MRSA bacteremia ESRD (end stage renal disease) ESRD (end stage renal disease) Chronic kidney disease Hyponatremia Influenza A Pneumonia Iron deficiency anemia Acute exacerbation of CHF (congestive heart failure) Bilateral lower extremity edema Neuropathy Chronic renal insufficiency Post laminectomy syndrome Lumbar disc disease with radiculopathy Sciatica associated with disorder of lumbosacral spine Uncontrolled insulin dependent diabetes mellitus Diabetes mellitus type 2, insulin dependent COPD (chronic obstructive pulmonary disease) Hyperlipemia Vitamin D deficiency Parkinson disease Chronic insomnia Stage 4 chronic renal impairment associated with type 2 diabetes mellitus History of CVA (cerebrovascular accident) Anemia in chronic illness Hypertension Fibromyalgia Diabetic neuropathy Hypothyroidism Surgical History History of left below knee amputation S/P dialysis catheter insertion History of colonoscopy 2020 Hx of hysterectomy Hx of cholecystectomy Hx of foot surgery Family History Father CAD (coronary artery disease) Mother CAD (coronary artery disease) Diabetes Grandfather CAD (coronary artery disease) Diabetes Social History Smoking and tobacco/nicotine status: former use of tobacco/nicotine Second hand smoke exposure: No Alcohol intake: current Alcohol intake frequency: holidays/special occasions only Alcohol type: hard liquor Substance/Drug Use: never Physical Exam 2 Const: COMMON NORMALS: no acute distress GENERAL APPEARANCE: cooperative and comfortable ORIENTATION/CONSCIOUSNESS: Yes awake, Yes oriented to person, Yes oriented to place and Yes oriented to time HENMT: COMMON NORMALS: normocephalic, atraumatic and hearing grossly normal bilaterally HEAD & SCALP: normocephalic and atraumatic Resp: COMMON NORMALS: normal respiratory effort, No retractions, No use of accessory muscles and clear to auscultation bilaterally AUSCULTATION: clear to auscultation bilaterally Cardio: COMMON NORMALS: regular rate, regular rhythm and No murmurs present (Cardio) RATE: regular rate RHYTHM: regular rhythm GI: COMMON NORMALS: Soft to palpation and No hepatosplenomegaly present A USCULTATION: Yes normoactive bowel sounds PALPATION: Yes Soft to palpation, No Tenderness to palpation present (GI), No Guarding due to palpation present (GI) and Yes No hepatosplenomegaly present Extremity: COMMON NORMALS: capillary refill normal, no clubbing, cyanosis or edema, no calf tenderness (Right) and no pedal edema (Right foot) OTHER: Examination the stump left below the knee amputation there is no skin breakdown ulcerations redness erythema skin induration or thickness Neuro: SENSORIUM/ORIENTATION: Yes oriented to person, Yes oriented to place and Yes oriented to time Skin: COMMON NORMALS: no rashes or lesions noted GENERAL SKIN EXAM: no rashes or lesions noted Course 2 Vital Signs: Vital signs: Vital Signs Temperature 98.4 F 04/22/24 14:58 Pulse Rate 75 04/22/24 18:09 Respiratory Rate 18 04/22/24 14:58 Blood Pressure 123/94 04/22/24 15:03 Pulse Oximetry 98 04/22/24 18:09 Oxygen Delivery Me thod Nasal Cannula 04/22/24 14:58 Oxygen Flow Rate 4 04/22/24 14:58 MDM - Extremity (Nontraumatic) Medical Decision Making Patient is status post amputation left below the knee. No signs of infection skin breakdown or ulceration. Think this is mostly postsurgical pain. She is improved already at this point. Will discharge her home continue current medications follow-up with her primary care. Medical Records I reviewed the patient's medical records. Lab Data I reviewed the patient's lab results. 04/22/24 15:04 04/22/24 15:04 Radiology Impressions Tibia/Fibula X-Ray 04/22/24 15:04 IMPRESSION: No acute fracture or malalignment. Remote [id number] amputation of the proximal 1/3 left tibial and fibular diaphyses. Smooth margins with no evidence of cortical erosion or periosteal reaction. Laboratory Results WBC 12.99 10^3/uL (3.29-11.43) H 04/22/24 15:04 RBC 2.93 10^6/uL (3.85-5.65) L 04/22/24 15:04 Hgb 9.10 g/dL (11.27-16.99) L 04/22/24 15:04 Hct 29.0 % (36-47) L 04/22/24 15:04 MCV 99.0 fl (85-98) H 04/22/24 15:04 MCH 31.1 pg (27-33) 04/22/24 15:04 MCHC 31.4 g/dL (30-55) 04/22/24 15:04 RDW 16.0 % (12.1-15.1) H 04/22/24 15:04 Plt Count 242 10^3/cmm (157-399) 04/22/24 15:04 MPV 10.2 fL (7.4-10.4) 04/22/24 15:04 Neut % (Auto) 76.1 % 04/22/24 15:04 Lymph % (Auto) 15.2 % 04/22/24 15:04 [place] % (Auto) 5.8 % 04/22/24 15:04 Eos % (Auto) 1.6 % 04/22/24 15:04 Baso % (Auto) 0.5 % 04/22/24 15:04 Neut # (Auto) 9.89 10^3/uL (1.8-7.7) H 04/22/24 15:04 Lymph # (Auto) 2.0 10^3/uL (0.8-4.8) 04/22/24 15:04 [place] # (Auto) 0.8 10^3/uL (0.2-0.9) 04/22/24 15:04 Eos # (Auto) 0.2 10^3/uL (0.0-0.8) 04/22/24 15:04 Baso # (Auto) 0.1 10^3/uL (0.0-0.1) 04/22/24 15:04 Nucleated RBC % (auto) 0.2 % 04/22/24 15:04 Nucleated RBCs # 0.0 /100WBC 04/22/24 15:04 Sodium 138 mmol/L (136-145) 04/22/24 15:04 Potassium 3.1 mmol/L (3.5-5.1) L 04/22/24 15:04 Chloride 97 mmol/L (98-107) L 04/22/24 15:04 Carbon Dioxide 28 mmol/L (22-29) 04/22/24 15:04 Anion Gap 16.1 (5-19) 04/22/24 15:04 BUN 9 mg/dL (8-23) 04/22/24 15:04 Creatinine 2.1 mg/dL (0.5-0.9) H 04/22/24 15:04 GFR Calculation Not Reportable 04/22/24 15:04 Glucose 131 mg/dL (65-115) H 04/22/24 15:04 Calculated Osmolality 286 mOsm/kg (285-295) 04/22/24 15:04 Calcium 8.8 mg/dL (8.5-10.5) 04/22/24 15:04 Magnesium 1.5 mg/dL (1.7-2.3) L 04/22/24 15:04 Total Bilirubin 0.7 mg/dL (0.15-1.2) 04/22/24 15:04 AST 15 U/L (0-32) 04/22/24 15:04 ALT < 5 U/L (0-33) 04/22/24 15:04 Alkaline Phosphatase 121 U/L (35-105) H 04/22/24 15:04 C-Reactive Protein 13.9 mg/L (0.0-4.9) H 04/22/24 15:04 Total Protein 7.0 g/dL (6.6-8.7) 04/22/24 15:04 Albumin 3.5 g/dL (3.5-5.2) 04/22/24 15:04 Globulin 3.5 g/dL (1.3-4.6) 04/22/24 15:04 All radiology interpretation(s) finalized by discharge Discharge Plan Discharge Patient Disposition: Home Clinical Impression: Status post below-knee amputation of left lower extremity, ESRD on hemodialysis Condition: Stable Prescriptions: No Action (DME) 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 sertraline 100 mg tablet 100 mg PO DAILY alprazolam [Xanax] 0.5 mg Tablet 0.5 mg PO TID PRN (Reason: Anxiety) sevelamer carbonate [Renvela] 800 mg Tablet 1,600 mg PO TID Rx Instructions: must administer with a meal/food levothyroxine 150 mcg Tablet 150 mcg PO DAILY trihexyphenidyl 2 mg Tablet 2 mg PO TID Rx Instructions: give with food (meal/snack) fluticasone propionate [Flonase Allergy Relief] 50 mcg/actuation Walls,Suspension 1 mcg INTRANASAL BID white petrolatum [Vaseline] Gel 1 applic TOPICAL PRN Rx Instructions: apply to buttock every shift for prevention insulin glargine [Basaglar KwikPen U-100 Insulin] 100 unit/mL (3 mL) Insulin Pen 35 unit SUBCUT BEDTIME Eliquis 5 mg Tablet 5 mg PO BID hydromorphone [Dilaudid] 4 mg Tablet 2 mg PO Q4H PRN (Reason: Pain) Qty: 1 0RF Rx Instructions: dose adjustment only ciprofloxacin HCl 500 mg tablet 500 mg PO DAILY Qty: 3 0RF furosemide [Lasix] 40 mg Tablet 40 mg PO BID metoprolol tartrate 100 mg Tablet 100 mg PO BID ondansetron HCl 4 mg Tablet 4 mg PO Q6H PRN (Reason: Nausea And Vomiting) loperamide [Imodium A-D] 2 mg Tablet 2 mg PO Q6H PRN (Reason: Loose Stool) metolazone 5 mg Tablet 5 mg PO QAM simvastatin 40 mg Tablet 40 mg PO BEDTIME@21 carbidopa-levodopa 25-100 mg Tablet See Rx Instructions .ROUTE .COMPLEX Rx Instructions: GIVE 3 TABLETS BY MOUTH AT 8 AM AND NOON AND 2 TABLETS AT 6 PM. insulin aspart U-100 [Novolog FlexPen U-100 Insulin] 100 unit/mL (3 mL) Insulin Pen See Rx Instructions .ROUTE .COMPLEX Rx Instructions: sliding scale three times a day. IF BS LESS THAN 60, CALL MD. FOR BS 150-200=3 units 201-250=5 units 251-300=7 units 301-350=9 units 351-400=11 units call provider for bs <60 or >400 Lumigan 0.01 % Drops 1 drp OPHTHALMIC (EYE) BEDTIME acetaminophen 325 mg Tablet 650 mg PO Q6H omeprazole 20 mg Capsule,Delayed Release(Dr/Ec) 20 mg PO BID gabapentin 100 mg capsule 200 mg PO QPM Rx Instructions: Dose change only Discharge Orders: Discharge ED (Routine); Ordered 04/22/24 Ordered By: Federico Mccarty Referrals: Brandi Escalera MD [Primary Care Provider] - Patient Instructions: Opioid Safety, Pain Management Activity Restrictions/Additional Instructions: You were seen today with pain at the site of your amputation. No significant laboratory findings made. Continue current medications follow-up with your primary care doctor Coding Level of Care Code ED Rn Diabetes Educator for Dominick Baca
[2024-04-22 17:03] VITALS: PULSE 85; O2SAT 95
[2024-04-22 18:09] VITALS: PULSE 75; O2SAT 98
== END 2024-04-22 19:44 | disposition home or self-care (01) ==
PROVIDERS: Emergency Provider Family Medicine; PCP Family Medicine
DX: Z89.512 Acquired absence of left leg below knee (principal); Z79.4 Long term (current) use of insulin; Z79.01 Long term (current) use of anticoagulants; Z87.891 Personal history of nicotine dependence; E11.22 Type 2 diabetes mellitus with diabetic chronic kidney disease; N18.6 End stage renal disease; E11.40 Type 2 diabetes mellitus with diabetic neuropathy, unspecified; Z99.2 Dependence on renal dialysis; I25.10 Atherosclerotic heart disease of native coronary artery without angina pectoris
CPT/HCPCS: 36415; 73590; 80053; 83735; 85025; 86140; 96374; 96375; 99284; J2270; J2360

== ENCOUNTER 2024-05-25 17:50 | Emergency (ER) | payer MEDICARE, OTHER, MEDICAID, SELFPAY ==
[2024-05-25 17:51] VITALS: BP 147/49; PULSE 50; RESP 16; TEMP 36.6; O2SAT 100; BMI 34.6
--- NOTE | 2024-05-25 18:06 | W.ED.FEMALGU ---
Documented by User: MILAGRO Palacio 05/25/24 21:01 HPI - Female Genitourinary General: Chief complaint: Urogenital-Female Stated complaint: wellness check Time Seen by Provider: 05/25/24 17:59 History of Present Illness: 79-year-old female comes in today for concerns of urinary tract infection. Patient recently been started on antibiotics for a urinary tract infection and a culture result came back today. Family was concerned that she needed to have IV antibiotics to initiate the new antibiotic. Patient appears nontoxic. Patient does have some mild confusion although I believe this is at baseline. Patient responds to all questions. Patient states that she is frustrated but also does not feel well. Related Data Home Medications Medication Instructions Recorded Confirmed bimatoprost 0.01 % eye drops 1 drp ophthalmic (eye) BEDTIME 04/07/22 04/22/24 ([place]igan) carbidopa 25 mg-levodopa 100 mg See Rx Instructions .Route .COMPLEX 04/07/22 04/22/24 tablet furosemide 40 mg tablet (Lasix) 40 mg PO BID 04/07/22 04/22/24 insulin aspart U-100 100 unit/mL See Rx Instructions .Route .COMPLEX 04/07/22 04/22/24 (3 mL) subcutaneous pen (Novolog FlexPen U-100 Insulin aspart) loperamide 2 mg tablet (Imodium 2 mg PO Q6H PRN Loose Stool 04/07/22 04/22/24 A-D) metolazone 5 mg tablet 5 mg PO QAM 04/07/22 04/22/24 metoprolol tartrate 100 mg tablet 100 mg PO BID 04/07/22 04/22/24 ondansetron HCl 4 mg tablet 4 mg PO Q6H PRN Nausea And Vomiting 04/07/22 04/22/24 simvastatin 40 mg tablet 40 mg PO BEDTIME@21 04/07/22 04/22/24 bisacodyl 10 mg rectal suppository 10 mg IN DAILY PRN Constipation 07/14/22 04/22/24 alprazolam 0.5 mg tablet (Xanax) 0.5 mg PO TID PRN Anxiety 04/29/23 04/22/24 sertraline 100 mg tablet 100 mg PO DAILY 04/29/23 04/22/24 sevelamer carbonate 800 mg tablet 1,600 mg PO TID 04/29/23 04/22/24 (Renvela) vitamin A and D See Rx Instructions .Route .COMPLEX 04/29/23 04/22/24 fluticasone propionate 50 1 mcg intranasal BID 03/19/24 04/22/24 mcg/actuation nasal spray,suspension (Flonase Allergy Relief) insulin glargine 100 unit/mL (3 35 unit SUBCUT BEDTIME 03/19/24 04/22/24 mL) subcutaneous pen (Basaglar KwikPen U-100 Insulin) levothyroxine 150 mcg tablet 150 mcg PO DAILY 03/19/24 04/22/24 trihexyphenidyl 2 mg tablet 2 mg PO TID 03/19/24 04/22/24 white petrolatum (Vaseline jelly, 1 applic topical PRN 03/19/24 04/22/24 topical) apixaban 5 mg tablet (Eliquis) 5 mg PO BID 03/30/24 04/22/24 acetaminophen 325 mg tablet 650 mg PO Q6H 04/22/24 04/22/24 gabapentin 100 mg capsule 200 mg PO QPM 04/22/24 04/22/24 omeprazole 20 mg capsule,delayed 20 mg PO BID 04/22/24 04/22/24 release Previous Rx's Medication Instructions Recorded [employer] Director #1 ea 11/21/22 hydromorphone 4 mg tablet 2 mg (1/2 x 4 mg) PO Q4H PRN Pain 04/02/24 (Dilaudid) #1 tab ciprofloxacin HCl 500 mg tablet 500 mg PO DAILY On dialysis days 04/13/24 after dialysis x 3 doses #3 tabs nitrofurantoin 100 mg PO BID 7 days #14 caps 05/25/24 monohydrate/macrocrystals 100 mg capsule (Macrobid) Allergies Allergy/AdvReac Type Severity Reaction Status Date / Time sulfamethoxazole Allergy Rash Verified 04/22/24 15:03 [From Septra] trimethoprim [From Septra] Allergy Rash Verified 04/22/24 15:03 pregabalin [From Lyrica] AdvReac Loopy/Unste Verified 04/22/24 15:03 anoop Review of Systems General: Reports: 10 or more systems reviewed and unremarkable except in HPI and below Const: Reports: malaise PFSH ED PFSH: Medical History Diabetic ulcer of left foot Gangrene of left foot Goals of care, counseling/discussion CAD (coronary artery disease) Pulmonary hypertension Elevated troponin History of pulmonary embolism Chest pain 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 Charcot's joint of left foot MRSA bacteremia ESRD (end stage renal disease) ESRD (end stage renal disease) Chronic kidney disease Hyponatremia Influenza A Pneumonia Iron deficiency anemia Acute exacerbation of CHF (congestive heart failure) Bilateral lower extremity edema Neuropathy Chronic renal insufficiency Post laminectomy syndrome Lumbar disc disease with radiculopathy Sciatica associated with disorder of lumbosacral spine Uncontrolled insulin dependent diabetes mellitus Diabetes mellitus type 2, insulin dependent COPD (chronic obstructive pulmonary disease) Hyperlipemia Vitamin D deficiency Parkinson disease Chronic insomnia Stage 4 chronic renal impairment associated with type 2 diabetes mellitus History of CVA (cerebrovascular accident) Anemia in chronic illness Hypertension Fibromyalgia Diabetic neuropathy Hypothyroidism Surgical History History of left below knee amputation S/P dialysis catheter insertion History of colonoscopy 2020 Hx of hysterectomy Hx of cholecystectomy Hx of foot surgery Family History Father CAD (coronary artery disease) Mother CAD (coronary artery disease) Diabetes Grandfather CAD (coronary artery disease) Diabetes Social History Smoking and tobacco/nicotine status: former use of tobacco/nicotine Second hand smoke exposure: No Alcohol intake: current Alcohol intake frequency: holidays/special occasions only Alcohol type: hard liquor Substance/Drug Use: never Physical Exam Const: COMMON NORMALS: alert HENMT: COMMON NORMALS: normocephalic HEAD & SCALP: normocephalic Neck/C-Spine: COMMON NORMALS: full ROM Resp: COMMON NORMALS: normal respiratory effort and clear to auscultation bilaterally AUSCULTATION: clear to auscultation bilaterally Cardio: COMMON NORMALS: regular rate RATE: regular rate GI: COMMON NORMALS: Soft to palpation and non-tender PALPATION: Yes Soft to palpation : COMMON NORMALS: Yes no CVA tenderness BLADDER/KIDNEY EXAM: Yes no CVA tenderness Back/Pelvis: COMMON NORMALS: no CVA tenderness Extremity: COMMON NORMALS: no pedal edema Neuro: SENSORIUM/ORIENTATION: Yes alert Skin: COMMON NORMALS: turgor normal GENERAL SKIN EXAM: turgor normal Course Vital Signs: Vital signs: Vital Signs Temperature 97.8 F 05/25/24 17:51 Pulse Rate 47 L 05/25/24 22:00 Respiratory Rate 16 05/25/24 17:51 Blood Pressure 111/43 05/25/24 22:00 Pulse Oximetry 99 05/25/24 22:00 Oxygen Delivery Me thod Nasal Cannula 05/25/24 20:00 Oxygen Flow Rate 3 05/25/24 17:51 MDM - Female Medical Decision Making 79-year-old female comes in today for complaints of abnormal urine test. Patient had a culture today that showed that antibiotic she was on was not appropriate. Family request that patient be brought to the ER to be started on IV antibiotics. Patient is alert and cooperative. Patient is a poor historian. Patient does have some confusion but this is baseline. Lungs are clear to auscultation. Abdomen soft nontender. Differential diagnosis sepsis, urinary tract infection, dehydration. CBC noted a white blood cell count 12,000 and hemoglobin 8.4.. CMP had a creatinine 3.7. Review of the record noted patient's chronic kidney disease and dialysis. We were able to obtain the culture results from the long term which noted a E. coli urinary tract infection with gross multi resistance. Patient specimen is susceptible to both Zosyn and Macrobid. Patient be given a dose of Zosyn tonight to get her started on antibiotics and will continue on Macrobid at the long term. Patient otherwise was stable and was discharged back to long term. Lab Data 05/25/24 18:30 05/25/24 18:30 Laboratory Results WBC 12.01 10^3/uL (3.29-11.43) H 05/25/24 18:30 RBC 2.65 10^6/uL (3.85-5.65) L 05/25/24 18:30 Hgb 8.40 g/dL (11.27-16.99) L 05/25/24 18:30 Hct 28.4 % (36-47) L 05/25/24 18:30 MCV 107.2 fl (85-98) H 05/25/24 18:30 MCH 31.7 pg (27-33) 05/25/24 18:30 MCHC 29.6 g/dL (30-55) L 05/25/24 18:30 RDW 18.7 % (12.1-15.1) H 05/25/24 18:30 Plt Count 187 10^3/cmm (157-399) 05/25/24 18:30 MPV 10.3 fL (7.4-10.4) 05/25/24 18:30 Neut % (Auto) 77.6 % 05/25/24 18:30 Lymph % (Auto) 14.2 % 05/25/24 18:30 [place] % (Auto) 5.6 % 05/25/24 18:30 Eos % (Auto) 1.7 % 05/25/24 18: Baso % (Auto) 0.4 % 05/25/24 18:30 Neut # (Auto) 9.32 10^3/uL (1.8-7.7) H 05/25/24 18:30 Lymph # (Auto) 1.7 10^3/uL (0.8-4.8) 05/25/24 18:30 [place] # (Auto) 0.7 10^3/uL (0.2-0.9) 05/25/24 18:30 Eos # (Auto) 0.2 10^3/uL (0.0-0.8) 05/25/24 18:30 Baso # (Auto) 0.1 10^3/uL (0.0-0.1) 05/25/24 18:30 Nucleated RBC % (auto) 0 % 05/25/24 18: Nucleated RBCs # 0.0 /100WBC 05/25/24 18:30 Sodium 138 mmol/L (136-145) 05/25/24 18:30 Potassium 3.5 mmol/L (3.5-5.1) 05/25/24 18:30 Chloride 97 mmol/L (98-107) L 05/25/24 18:30 Carbon Dioxide 31 mmol/L (22-29) H 05/25/24 18:30 Anion Gap 13.5 (5-19) 05/25/24 18:30 BUN 27 mg/dL (8-23) H 05/25/24 18:30 Creatinine 3.7 mg/dL (0.5-0.9) H 05/25/24 18:30 GFR Calculation Not Reportable 05/25/24 18:30 Glucose 125 mg/dL (65-115) H 05/25/24 18:30 Calculated Osmolality 293 mOsm/kg (285-295) 05/25/24 18:30 Lactic Acid 0.9 mmol/L (0.5-2.2) 05/25/24 18:30 Calcium 8.6 mg/dL (8.5-10.5) 05/25/24 18:30 Total Bilirubin 0.6 mg/dL (0.15-1.2) 05/25/24 18:30 AST 10 U/L (0-32) 05/25/24 18: ALT < 5 U/L (0-33) 05/25/24 18:30 Alkaline Phosphatase 95 U/L (35-105) 05/25/24 18:30 Total Protein 6.6 g/dL (6.6-8.7) 05/25/24 18: Albumin 3.4 g/dL (3.5-5.2) L 05/25/24 18:30 Globulin 3.2 g/dL (1.3-4.6) 05/25/24 18:30 No radiology studies performed this visit Discharge Plan Discharge Patient Disposition: Home Clinical Impression: Urinary tract infection Condition: Stable Prescriptions: New nitrofurantoin monohyd/m-cryst [Macrobid] 100 mg capsule 100 mg PO BID 7 Days Qty: 14 0RF Rx Instructions: must administer with a meal/food No Action (DME) [employer] Director See Rx Instructions .Route .MEDSUPPLY Qty: 1 0RF Rx Instructions: As directed bisacodyl 10 mg Suppository 10 mg IN DAILY PRN (Reason: Constipation) vitamin A and D Ointment See Rx Instructions .ROUTE .COMPLEX Rx Instructions: APPLY TOPICALLY AEVERY SHIFT TO BLATERAL BUTTUCK: CLEANSE WITH SOAP AND WATER AND APPLY A AND D OINTMENT FOR SHEER PREVENTION. sertraline 100 mg tablet 100 mg PO DAILY alprazolam [Xanax] 0.5 mg Tablet 0.5 mg PO TID PRN (Reason: Anxiety) sevelamer carbonate [Renvela] 800 mg Tablet 1,600 mg PO TID Rx Instructions: must administer with a meal/food levothyroxine 150 mcg Tablet 150 mcg PO DAILY trihexyphenidyl 2 mg Tablet 2 mg PO TID Rx Instructions: give with food (meal/snack) fluticasone propionate [Flonase Allergy Relief] 50 mcg/actuation [place],Suspension 1 mcg INTRANASAL BID white petrolatum [Vaseline] Gel 1 applic TOPICAL PRN Rx Instructions: apply to buttock every shift for prevention insulin glargine [Basaglar KwikPen U-100 Insulin] 100 unit/mL (3 mL) Insulin Pen 35 unit SUBCUT BEDTIME Eliquis 5 mg Tablet 5 mg PO BID hydromorphone [Dilaudid] 4 mg Tablet 2 mg PO Q4H PRN (Reason: Pain) Qty: 1 0RF Rx Instructions: dose adjustment only ciprofloxacin HCl 500 mg tablet 500 mg PO DAILY Qty: 3 0RF furosemide [Lasix] 40 mg Tablet 40 mg PO BID metoprolol tartrate 100 mg Tablet 100 mg PO BID ondansetron HCl 4 mg Tablet 4 mg PO Q6H PRN (Reason: Nausea And Vomiting) loperamide [Imodium A-D] 2 mg Tablet 2 mg PO Q6H PRN (Reason: Loose Stool) metolazone 5 mg Tablet 5 mg PO QAM simvastatin 40 mg Tablet 40 mg PO BEDTIME@21 carbidopa-levodopa 25-100 mg Tablet See Rx Instructions .ROUTE .COMPLEX Rx Instructions: GIVE 3 TABLETS BY MOUTH AT 8 AM AND NOON AND 2 TABLETS AT 6 PM. insulin aspart U-100 [Novolog FlexPen U-100 Insulin] 100 unit/mL (3 mL) Insulin Pen See Rx Instructions .ROUTE .COMPLEX Rx Instructions: sliding scale three times a day. IF BS LESS THAN 60, CALL MD. FOR BS 150-200=3 units 201-250=5 units 251-300=7 units 301-350=9 units 351-400=11 units call provider for bs <60 or >400 [place] 0.01 % Drops 1 drp OPHTHALMIC (EYE) BEDTIME acetaminophen 325 mg Tablet 650 mg PO Q6H omeprazole 20 mg Capsule,Delayed Release(Dr/Ec) 20 mg PO BID gabapentin 100 mg capsule 200 mg PO QPM Rx Instructions: Dose change only Discharge Orders: Discharge ED (Routine); Ordered 05/25/24 Ordered By: Mingo Valles Referrals: Brandi Escalera MD [Primary Care Provider] - Discharge Diet: Usual diet Discharge Activity: Increase activity as tolerated Patient Instructions: Urinary Tract Infection in Older Adults (ED) Activity Restrictions/Additional Instructions: Start oral antibiotics tomorrow. Continue routine care otherwise. Coding Level of Care Code ED Cigarette Maker for Chg Fwd Documented by User: Ministerio Guaman DO 05/25/24 23:06 HPI - Female Genitourinary General: Chief complaint: Urogenital-Female Stated complaint: wellness check Time Seen by Provider: 05/25/24 17:59 Related Data Home Medications Medication Instructions Recorded Confirmed bimatoprost 0.01 % eye drops 1 drp ophthalmic (eye) BEDTIME 04/07/22 04/22/24 ([place]) carbidopa 25 mg-levodopa 100 mg See Rx Instructions .Route .COMPLEX 04/07/22 04/22/24 tablet furosemide 40 mg tablet (Lasix) 40 mg PO BID 04/07/22 04/22/24 insulin aspart U-100 100 unit/mL See Rx Instructions .Route .COMPLEX 04/07/22 04/22/24 (3 mL) subcutaneous pen (Novolog FlexPen U-100 Insulin aspart) loperamide 2 mg tablet (Imodium 2 mg PO Q6H PRN Loose Stool 04/07/22 04/22/24 A-D) metolazone 5 mg tablet 5 mg PO QAM 04/07/22 04/22/24 metoprolol tartrate 100 mg tablet 100 mg PO BID 04/07/22 04/22/24 ondansetron HCl 4 mg tablet 4 mg PO Q6H PRN Nausea And Vomiting 04/07/22 04/22/24 simvastatin 40 mg tablet 40 mg PO BEDTIME@21 04/07/22 04/22/24 bisacodyl 10 mg rectal suppository 10 mg IN DAILY PRN Constipation 07/14/22 04/22/24 alprazolam 0.5 mg tablet (Xanax) 0.5 mg PO TID PRN Anxiety 04/29/23 04/22/24 sertraline 100 mg tablet 100 mg PO DAILY 04/29/23 04/22/24 sevelamer carbonate 800 mg tablet 1,600 mg PO TID 04/29/23 04/22/24 (Renvela) vitamin A and D See Rx Instructions .Route .COMPLEX 04/29/23 04/22/24 fluticasone propionate 50 1 mcg intranasal BID 03/19/24 04/22/24 mcg/actuation nasal spray,suspension (Flonase Allergy Relief) insulin glargine 100 unit/mL (3 35 unit SUBCUT BEDTIME 03/19/24 04/22/24 mL) subcutaneous pen (Basaglar KwikPen U-100 Insulin) levothyroxine 150 mcg tablet 150 mcg PO DAILY 03/19/24 04/22/24 trihexyphenidyl 2 mg tablet 2 mg PO TID 03/19/24 04/22/24 white petrolatum (Vaseline jelly, 1 applic topical PRN 03/19/24 04/22/24 topical) apixaban 5 mg tablet (Eliquis) 5 mg PO BID 03/30/24 04/22/24 acetaminophen 325 mg tablet 650 mg PO Q6H 04/22/24 04/22/24 gabapentin 100 mg capsule 200 mg PO QPM 04/22/24 04/22/24 omeprazole 20 mg capsule,delayed 20 mg PO BID 04/22/24 04/22/24 release Previous Rx's Medication Instructions Recorded [employer] Director #1 ea 11/21/22 hydromorphone 4 mg tablet 2 mg (1/2 x 4 mg) PO Q4H PRN Pain 04/02/24 (Dilaudid) #1 tab ciprofloxacin HCl 500 mg tablet 500 mg PO DAILY On dialysis days 04/13/24 after dialysis x 3 doses #3 tabs nitrofurantoin 100 mg PO BID 7 days #14 caps 05/25/24 monohydrate/macrocrystals 100 mg capsule (Macrobid) Allergies Allergy/AdvReac Type Severity Reaction Status Date / Time sulfamethoxazole Allergy Rash Verified 04/22/24 15:03 [From Septra] trimethoprim [From Septra] Allergy Rash Verified 04/22/24 15:03 pregabalin [From Lyrica] AdvReac Loopy/Unste Verified 04/22/24 15:03 anoop PFSH ED PFSH: Medical History Diabetic ulcer of left foot Gangrene of left foot Goals of care, counseling/discussion CAD (coronary artery disease) Pulmonary hypertension Elevated troponin History of pulmonary embolism Chest pain 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 Charcot's joint of left foot MRSA bacteremia ESRD (end stage renal disease) ESRD (end stage renal disease) Chronic kidney disease Hyponatremia Influenza A Pneumonia Iron deficiency anemia Acute exacerbation of CHF (congestive heart failure) Bilateral lower extremity edema Neuropathy Chronic renal insufficiency Post laminectomy syndrome Lumbar disc disease with radiculopathy Sciatica associated with disorder of lumbosacral spine Uncontrolled insulin dependent diabetes mellitus Diabetes mellitus type 2, insulin dependent COPD (chronic obstructive pulmonary disease) Hyperlipemia Vitamin D deficiency Parkinson disease Chronic insomnia Stage 4 chronic renal impairment associated with type 2 diabetes mellitus History of CVA (cerebrovascular accident) Anemia in chronic illness Hypertension Fibromyalgia Diabetic neuropathy Hypothyroidism Surgical History History of left below knee amputation S/P dialysis catheter insertion History of colonoscopy 2020 Hx of hysterectomy Hx of cholecystectomy Hx of foot surgery Family History Father CAD (coronary artery disease) Mother CAD (coronary artery disease) Diabetes Grandfather CAD (coronary artery disease) Diabetes Social History Smoking and tobacco/nicotine status: former use of tobacco/nicotine Second hand smoke exposure: No Alcohol intake: current Alcohol intake frequency: holidays/special occasions only Alcohol type: hard liquor Substance/Drug Use: never Course Vital Signs: Vital signs: Vital Signs Temperature 97.8 F 05/25/24 17:51 Pulse Rate 47 L 05/25/24 22:00 Respiratory Rate 16 05/25/24 17:51 Blood Pressure 111/43 05/25/24 22:00 Pulse Oximetry 99 05/25/24 22:00 Oxygen Delivery Me thod Nasal Cannula 05/25/24 20:00 Oxygen Flow Rate 3 05/25/24 17:51 MDM - Female Medical Decision Making 79-year-old female comes in today for complaints of abnormal urine test. Patient had a culture today that showed that antibiotic she was on was not appropriate. Family request that patient be brought to the ER to be started on IV antibiotics. Patient is alert and cooperative. Patient is a poor historian. Patient does have some confusion but this is baseline. Lungs are clear to auscultation. Abdomen soft nontender. Differential diagnosis sepsis, urinary tract infection, dehydration. CBC noted a white blood cell count 12,000 and hemoglobin 8.4.. CMP had a creatinine 3.7. Review of the record noted patient's chronic kidney disease and dialysis. We were able to obtain the culture results from the long term which noted a E. coli urinary tract infection with gross multi resistance. Patient specimen is susceptible to both Zosyn and Macrobid. Patient be given a dose of Zosyn tonight to get her started on antibiotics and will continue on Macrobid at the long term. Patient otherwise was stable and was discharged back to long term. This patient was originally seen by MILAGRO Byrne.? I agree with his history, evaluation, and treatment. Lab Data 05/25/24 18:30 05/25/24 18:30 Laboratory Results WBC 12.01 10^3/uL (3.29-11.43) H 05/25/24 18:30 RBC 2.65 10^6/uL (3.85-5.65) L 05/25/24 18:30 Hgb 8.40 g/dL (11.27-16.99) L 05/25/24 18:30 Hct 28.4 % (36-47) L 05/25/24 18:30 MCV 107.2 fl (85-98) H 05/25/24 18:30 MCH 31.7 pg (27-33) 05/25/24 18:30 MCHC 29.6 g/dL (30-55) L 05/25/24 18:30 RDW 18.7 % (12.1-15.1) H 05/25/24 18:30 Plt Count 187 10^3/cmm (157-399) 05/25/24 18:30 MPV 10.3 fL (7.4-10.4) 05/25/24 18: Neut % (Auto) 77.6 % 05/25/24 18:30 Lymph % (Auto) 14.2 % 05/25/24 18:30 [place] % (Auto) 5.6 % 05/25/24 18:30 Eos % (Auto) 1.7 % 05/25/24 18:30 Baso % (Auto) 0.4 % 05/25/24 18:30 Neut # (Auto) 9.32 10^3/uL (1.8-7.7) H 05/25/24 18:30 Lymph # (Auto) 1.7 10^3/uL (0.8-4.8) 05/25/24 18:30 [place] # (Auto) 0.7 10^3/uL (0.2-0.9) 05/25/24 18:30 Eos # (Auto) 0.2 10^3/uL (0.0-0.8) 05/25/24 18:30 Baso # (Auto) 0.1 10^3/uL (0.0-0.1) 05/25/24 18:30 Nucleated RBC % (auto) 0 % 05/25/24 18:30 Nucleated RBCs # 0.0 /100WBC 05/25/24 18:30 Sodium 138 mmol/L (136-145) 05/25/24 18:30 Potassium 3.5 mmol/L (3.5-5.1) 05/25/24 18:30 Chloride 97 mmol/L (98-107) L 05/25/24 18:30 Carbon Dioxide 31 mmol/L (22-29) H 05/25/24 18:30 Anion Gap 13.5 (5-19) 05/25/24 18:30 BUN 27 mg/dL (8-23) H 05/25/24 18:30 Creatinine 3.7 mg/dL (0.5-0.9) H 05/25/24 18:30 GFR Calculation Not Reportable 05/25/24 18: Glucose 125 mg/dL (65-115) H 05/25/24 18:30 Calculated Osmolality 293 mOsm/kg (285-295) 05/25/24 18:30 Lactic Acid 0.9 mmol/L (0.5-2.2) 05/25/24 18: Calcium 8.6 mg/dL (8.5-10.5) 05/25/24 18:30 Total Bilirubin 0.6 mg/dL (0.15-1.2) 05/25/24 18:30 AST 10 U/L (0-32) 05/25/24 18:30 ALT < 5 U/L (0-33) 05/25/24 18:30 Alkaline Phosphatase 95 U/L (35-105) 05/25/24 18:30 Total Protein 6.6 g/dL (6.6-8.7) 05/25/24 18:30 Albumin 3.4 g/dL (3.5-5.2) L 05/25/24 18:30 Globulin 3.2 g/dL (1.3-4.6) 05/25/24 18:30 Discharge Plan Discharge Patient Disposition: Home Clinical Impression: Urinary tract infection Condition: Stable Prescriptions: New nitrofurantoin monohyd/m-cryst [Macrobid] 100 mg capsule 100 mg PO BID 7 Days Qty: 14 0RF Rx Instructions: must administer with a meal/food No Action (DME) [employer] Director See Rx Instructions .Route .MEDSUPPLY Qty: 1 0RF Rx Instructions: As directed bisacodyl 10 mg Suppository 10 mg IN DAILY PRN (Reason: Constipation) vitamin A and D Ointment See Rx Instructions .ROUTE .COMPLEX Rx Instructions: APPLY TOPICALLY AEVERY SHIFT TO BLATERAL BUTTUCK: CLEANSE WITH SOAP AND WATER AND APPLY A AND D OINTMENT FOR SHEER PREVENTION. sertraline 100 mg tablet 100 mg PO DAILY alprazolam [Xanax] 0.5 mg Tablet 0.5 mg PO TID PRN (Reason: Anxiety) sevelamer carbonate [Renvela] 800 mg Tablet 1,600 mg PO TID Rx Instructions: must administer with a meal/food levothyroxine 150 mcg Tablet 150 mcg PO DAILY trihexyphenidyl 2 mg Tablet 2 mg PO TID Rx Instructions: give with food (meal/snack) fluticasone propionate [Flonase Allergy Relief] 50 mcg/actuation [place],Suspension 1 mcg INTRANASAL BID white petrolatum [Vaseline] Gel 1 applic TOPICAL PRN Rx Instructions: apply to buttock every shift for prevention insulin glargine [Basaglar KwikPen U-100 Insulin] 100 unit/mL (3 mL) Insulin Pen 35 unit SUBCUT BEDTIME Eliquis 5 mg Tablet 5 mg PO BID hydromorphone [Dilaudid] 4 mg Tablet 2 mg PO Q4H PRN (Reason: Pain) Qty: 1 0RF Rx Instructions: dose adjustment only ciprofloxacin HCl 500 mg tablet 500 mg PO DAILY Qty: 3 0RF furosemide [Lasix] 40 mg Tablet 40 mg PO BID metoprolol tartrate 100 mg Tablet 100 mg PO BID ondansetron HCl 4 mg Tablet 4 mg PO Q6H PRN (Reason: Nausea And Vomiting) loperamide [Imodium A-D] 2 mg Tablet 2 mg PO Q6H PRN (Reason: Loose Stool) metolazone 5 mg Tablet 5 mg PO QAM simvastatin 40 mg Tablet 40 mg PO BEDTIME@21 carbidopa-levodopa 25-100 mg Tablet See Rx Instructions .ROUTE .COMPLEX Rx Instructions: GIVE 3 TABLETS BY MOUTH AT 8 AM AND NOON AND 2 TABLETS AT 6 PM. insulin aspart U-100 [Novolog FlexPen U-100 Insulin] 100 unit/mL (3 mL) Insulin Pen See Rx Instructions .ROUTE .COMPLEX Rx Instructions: sliding scale three times a day. IF BS LESS THAN 60, CALL MD. FOR BS 150-200=3 units 201-250=5 units 251-300=7 units 301-350=9 units 351-400=11 units call provider for bs <60 or >400 [place] 0.01 % Drops 1 drp OPHTHALMIC (EYE) BEDTIME acetaminophen 325 mg Tablet 650 mg PO Q6H omeprazole 20 mg Capsule,Delayed Release(Dr/Ec) 20 mg PO BID gabapentin 100 mg capsule 200 mg PO QPM Rx Instructions: Dose change only Discharge Orders: Discharge ED (Routine); Ordered 05/25/24 Ordered By: Mingo Valles Referrals: Brandi Escalera MD [Primary Care Provider] - Discharge Diet: Usual diet Discharge Activity: Increase activity as tolerated Patient Instructions: Urinary Tract Infection in Older Adults (ED) Activity Restrictions/Additional Instructions: Start oral antibiotics tomorrow. Continue routine care otherwise. Coding Level of Care Code ED Cigarette Maker for Dominick Baca
[2024-05-25 18:37] VITALS: BP 126/48; PULSE 51; O2SAT 100
[2024-05-25 18:38] LABS: Basophils # 0.1 10^3/uL (0.0-0.1); Basophils % 0.4 %; Eosinophils # 0.2 10^3/uL (0.0-0.8); Eosinophils % 1.7 %; Hematocrit 28.4 % (36-47); Lymphocytes # 1.7 10^3/uL (0.8-4.8); Lymphocytes % 14.2 %; Mean Corpuscular HGB Conc 29.6 g/dL (30-55); Mean Corpuscular Hemoglobin 31.7 pg (27-33); Mean Corpuscular Volume 107.2 fl (85-98); Mean Platelet Volume 10.3 fL (7.4-10.4); Monocytes # 0.7 10^3/uL (0.2-0.9); Monocytes % 5.6 %; Neutrophils # 9.32 10^3/uL (1.8-7.7); Neutrophils % 77.6 %; Nucleated Red Blood Cells % 0 %; Platelet Count 187 10^3/cmm (157-399); Red Blood Count 2.65 10^6/uL (3.85-5.65); Red Cell Distribution Width 18.7 % (12.1-15.1); White Blood Count 12.01 10^3/uL (3.29-11.43)
[2024-05-25] MEDS: sodium chloride 0.9% 500 ML 999 ML IV (18:40)
[2024-05-25 18:56] LABS: Alanine Aminotransferase < 5 U/L (0-33); Albumin Level 3.4 g/dL (3.5-5.2); Alkaline Phosphatase 95 U/L (35-105); Anion Gap 13.5 (5-19); Aspartate Amino Transferase 10 U/L (0-32); Blood Urea Nitrogen 27 mg/dL (8-23); Calcium 8.6 mg/dL (8.5-10.5); Carbon Dioxide 31 mmol/L (22-29); Chloride 97 mmol/L (98-107); Creatinine Clr Calc Pharmacy 14.9979; Globulin 3.2 g/dL (1.3-4.6); Glucose 125 mg/dL (65-115); Lactic Sepsis W/Reflex 0.9 mmol/L (0.5-2.2); Osmolality Calculated 293 mOsm/kg (285-295); Potassium 3.5 mmol/L (3.5-5.1); Sodium 138 mmol/L (136-145); Total Bilirubin 0.6 mg/dL (0.15-1.2); Total Protein 6.6 g/dL (6.6-8.7)
[2024-05-25 20:00] VITALS: BP 117/51; PULSE 51; O2SAT 95
[2024-05-25] MEDS: piperacillin-tazobactam 4.5 GM in sodium chloride 0.9% (plus) 50 ML IV (21:28)
[2024-05-25 22:00] VITALS: BP 111/43; PULSE 47; O2SAT 99
[2024-05-25] MEDS: diphenhydrAMINE 50 mg Capsule PO (23:17)
[2024-05-25 23:47] VITALS: BP 114/50; PULSE 52; RESP 16; O2SAT 99
--- NOTE | 2024-05-25 23:54 | PC.NURSE ---
Report called to Roseanne at [facility] to provide discharge instructions. Denied further questions.
== END 2024-05-25 23:49 | disposition home or self-care (01) ==
PROVIDERS: Emergency Provider Nurse Practitioner Family; PCP Family Medicine
DX: N39.0 Urinary tract infection, site not specified (principal); Z79.4 Long term (current) use of insulin; Z79.01 Long term (current) use of anticoagulants; Z87.891 Personal history of nicotine dependence; E11.22 Type 2 diabetes mellitus with diabetic chronic kidney disease; I12.0 Hypertensive chronic kidney disease with stage 5 chronic kidney disease or end stage renal disease; N18.6 End stage renal disease; J44.9 Chronic obstructive pulmonary disease, unspecified
CPT/HCPCS: 80053; 83605; 85025; 96365; 99284; J2543; J7040; Q0163

== ENCOUNTER 2024-05-26 20:59 | Emergency (ER) | payer MEDICARE, OTHER, MEDICAID, SELFPAY ==
[2024-05-26 21:04] VITALS: BP 107/42; PULSE 77; RESP 18; TEMP 36.6; O2SAT 96
--- NOTE | 2024-05-26 21:22 | ECG_ITS ---
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 Measurements Intervals [place] Rate: 47 P: 82 SD: 206 QRS: 13 QRSD: 106 T: 38 QT: 504 QTc: 446 Interpretive Statements SINUS BRADYCARDIA INCOMPLETE RIGHT BUNDLE BRANCH BLOCK [90+ ms QRS DURATION, TERMINAL R IN V1/V2, 40+ ms S IN I/aVL/V4/V5/V6] POSSIBLE LATERAL MYOCARDIAL INFARCTION , PROBABLY OLD [30 ms Q WAVE IN I/aVL/V5/V6] Compared to ECG 03/30/2024 06:31:56 Incomplete right bundle-branch block now present Myocardial infarct finding now present Sinus rhythm no longer present First degree AV block no longer present Electronically Signed On 05-29-2024 11:32:51 POINTER MACHINE OPERATOR by Gabino Feng M.D. [id number]
== END 2024-05-26 21:54 | disposition left against medical advice (07) ==
PROVIDERS: Emergency Provider Family Medicine; PCP Family Medicine
DX: Z53.21 Procedure and treatment not carried out due to patient leaving prior to being seen by health care provider (principal)
CPT/HCPCS: 93005

== ENCOUNTER → 2024-06-30 12:59 | Outpatient (BNVA) | payer MEDICARE, OTHER, MEDICAID, SELFPAY | PROVIDERS: PCP Family Medicine; Visit Provider Podiatrist Foot & Ankle Surgery | DX: E11.42 Type 2 diabetes mellitus with diabetic polyneuropathy (principal); L60.3 Nail dystrophy; E11.621 Type 2 diabetes mellitus with foot ulcer; L97.512 Non-pressure chronic ulcer of other part of right foot with fat layer exposed; Z89.512 Acquired absence of left leg below knee; I73.9 Peripheral vascular disease, unspecified; Z89.421 Acquired absence of other right toe(s) | CPT/HCPCS: 11042; 11720 ==

== ENCOUNTER 2024-07-01 08:46 | Outpatient (CLI) | payer MEDICARE, OTHER, MEDICAID, SELFPAY | END 2024-07-01 08:47 | disposition home or self-care (01) | LOC: SPT 08:46 | PROVIDERS: PCP Family Medicine; Visit Provider Podiatrist Foot & Ankle Surgery | DX: Z46.89 Encounter for fitting and adjustment of other specified devices (principal); L97.512 Non-pressure chronic ulcer of other part of right foot with fat layer exposed | CPT/HCPCS: L4361 ==

== ENCOUNTER → 2024-07-29 13:33 | Outpatient (BNVA) | payer MEDICARE, OTHER, MEDICAID, SELFPAY | PROVIDERS: PCP Family Medicine; Visit Provider Podiatrist Foot & Ankle Surgery | DX: E11.42 Type 2 diabetes mellitus with diabetic polyneuropathy (principal); Z89.512 Acquired absence of left leg below knee; L60.3 Nail dystrophy; I73.9 Peripheral vascular disease, unspecified; L97.512 Non-pressure chronic ulcer of other part of right foot with fat layer exposed; Z89.421 Acquired absence of other right toe(s); E11.621 Type 2 diabetes mellitus with foot ulcer; Z79.4 Long term (current) use of insulin | CPT/HCPCS: 99213 ==

== ENCOUNTER → 2024-08-19 14:14 | Outpatient (BNVA) | payer MEDICARE, OTHER, MEDICAID, SELFPAY | PROVIDERS: PCP Family Medicine; Visit Provider Podiatrist Foot & Ankle Surgery | DX: Z89.512 Acquired absence of left leg below knee (principal); E11.42 Type 2 diabetes mellitus with diabetic polyneuropathy; I73.9 Peripheral vascular disease, unspecified; L97.512 Non-pressure chronic ulcer of other part of right foot with fat layer exposed; E11.621 Type 2 diabetes mellitus with foot ulcer; Z89.421 Acquired absence of other right toe(s); Z79.4 Long term (current) use of insulin | CPT/HCPCS: 99213 ==

== ENCOUNTER → 2024-09-02 09:46 | Outpatient (BNVA) | payer MEDICARE, OTHER, MEDICAID, SELFPAY | PROVIDERS: PCP Family Medicine; Visit Provider Podiatrist Foot & Ankle Surgery | DX: E11.8 Type 2 diabetes mellitus with unspecified complications (principal); Z89.512 Acquired absence of left leg below knee; E11.42 Type 2 diabetes mellitus with diabetic polyneuropathy; I73.9 Peripheral vascular disease, unspecified; E11.621 Type 2 diabetes mellitus with foot ulcer; L97.512 Non-pressure chronic ulcer of other part of right foot with fat layer exposed; Z89.421 Acquired absence of other right toe(s); Z79.4 Long term (current) use of insulin | CPT/HCPCS: 99213 ==

== ENCOUNTER 2024-09-28 23:46 | Inpatient (IN) | payer MEDICARE, OTHER, MEDICAID, SELFPAY ==
[2024-09-29] VITALS (18 sets, daily range): BP systolic 93–160; BP diastolic 51–116; PULSE 80–127; RESP 15–24; TEMP 36.8–39.4; O2SAT 93–100; BMI 30.2
--- NOTE | 2024-09-29 00:35 | USR_ITS ---
PROCEDURE INFORMATION: Exam: US Duplex Right Lower Extremity Veins, Limited Exam date and time: 09/29/2024 1:56 AM Age: 79 years old Clinical indication: Edema, localized; Lower extremity, right; Additional info: Edema, redness, pain TECHNIQUE: Imaging protocol: Real-time duplex ultrasound of the right extremity with 2-D vogel scale, color Doppler flow and spectral waveform analysis including responses to compression and other maneuvers (when performed) with image documentation. Limited exam was focused on the right lower extremity veins. COMPARISON: US renal BI* [id number] 08/03/2021 11:06 PM FINDINGS: Right deep veins: Unremarkable. The common femoral, femoral, proximal profunda femoral and popliteal veins are patent without thrombus. Normal Doppler waveforms. Normal compressibility and/or augmentation response. Superficial veins: Greater saphenous vein at the saphenofemoral junction is patent without thrombus. Soft tissues: Unremarkable. US/[place] [id number] IMPRESSION: No evidence of deep vein thrombosis.
--- NOTE | 2024-09-29 00:35 | XRR_ITS ---
PROCEDURE INFORMATION: Exam: XR Chest Exam date and time: 09/29/2024 12:55 AM Age: 79 years old Clinical indication: Fever; Prior surgery; Surgery date: 6+ months; Surgery type: Dialysis cath, spinal stimulator TECHNIQUE: Imaging protocol: Radiologic exam of the chest. Views: 1 view. COMPARISON: CR (CHEST, ) 04/12/2024 11:11 PM FINDINGS: Tubes, catheters and devices: Spinal cord stimulator electrodes project over the midthoracic spine. Lungs: No large focal consolidation. Pleural spaces: No large pleural effusion. No distinct pneumothorax. Heart/Mediastinum: Cardiomediastinal silhouette is midline and stable in size. Bones/joints: No distinct acute osseous findings. XR/XR chest 1V portable [id number] IMPRESSION: No acute cardiopulmonary findings.
--- NOTE | 2024-09-29 00:39 | XRR_ITS ---
PROCEDURE INFORMATION: Exam: XR Right Foot Exam date and time: 09/29/2024 12:55 AM Age: 79 years old Clinical indication: Pain; Foot; Right; Additional info: Right foot pain TECHNIQUE: Imaging protocol: Radiologic exam of the right foot. Views: 3 or more views. COMPARISON: CR (LOW EXM, ) 09/11/2021 11:55 AM FINDINGS: Bones/joints: Stable chronic ORIF of the distal fibula. Degenerative changes of the midfoot, likely reflecting Charcot arthropathy, stable to slightly worsened compared to 09/11/2021. No distinct acute osseous fracture. Soft tissues: Superficial soft tissues appear within normal limits. XR/XR foot RT min 3V* [id number] IMPRESSION: Degenerative changes of the midfoot, likely reflecting Charcot arthropathy, stable to slightly worsened compared to 09/11/2021.
--- NOTE | 2024-09-29 00:47 | W.ED.EXTPRO ---
HPI - Extremity Problem General: Chief complaint: Extremity Injury, Lower Stated complaint: RIGHT LEG PAIN Time Seen by Provider: 09/29/24 00:24 History of Present Illness: 79-year-old female long term patient with a history of insulin-dependent diabetes and neuropathy. She has a left below the knee amputation. She presents with fever, some mild mental status change, right lower leg redness, swelling, and pain. She has a wound on her right midfoot medially that has been treated by podiatry. Pain is increased over about 3 days. She has run fever on and off for up to a week her family says no other complaints of significant pain. No other definite source of fever such as cough, abdominal pain, vomiting, etc. Related Data Home Medications ?Medication ?Instructions ?Recorded ?Confirmed bimatoprost 0.01 % eye drops 1 drp ophthalmic (eye) BEDTIME 04/07/22 09/08/24 (Lumigan) carbidopa 25 mg-levodopa 100 mg See Rx Instructions .Route .COMPLEX 04/07/22 09/08/24 tablet furosemide 40 mg tablet (Lasix) 40 mg PO BID 04/07/22 09/08/24 insulin aspart U-100 100 unit/mL See Rx Instructions .Route .COMPLEX 04/07/22 09/08/24 (3 mL) subcutaneous pen (Novolog FlexPen U-100 Insulin aspart) loperamide 2 mg tablet (Imodium 2 mg PO Q6H PRN Loose Stool 04/07/22 09/08/24 A-D) metolazone 5 mg tablet 5 mg PO QAM 04/07/22 09/08/24 metoprolol tartrate 100 mg tablet 100 mg PO BID 04/07/22 09/08/24 ondansetron HCl 4 mg tablet 4 mg PO Q6H PRN Nausea And Vomiting 04/07/22 09/08/24 simvastatin 40 mg tablet 40 mg PO BEDTIME@21 04/07/22 09/08/24 bisacodyl 10 mg rectal suppository 10 mg AL DAILY PRN Constipation 07/14/22 09/08/24 alprazolam 0.5 mg tablet (Xanax) 0.5 mg PO TID PRN Anxiety 04/29/23 09/08/24 sertraline 100 mg tablet 100 mg PO DAILY 04/29/23 09/08/24 sevelamer carbonate 800 mg tablet 1,600 mg PO TID 04/29/23 09/08/24 (Renvela) vitamin A and D See Rx Instructions .Route .COMPLEX 04/29/23 09/08/24 fluticasone propionate 50 1 mcg intranasal BID 03/19/24 09/08/24 mcg/actuation nasal spray,suspension (Flonase Allergy Relief) insulin glargine 100 unit/mL (3 35 unit SUBCUT BEDTIME 03/19/24 09/08/24 mL) subcutaneous pen (Basaglar KwikPen U-100 Insulin) levothyroxine 150 mcg tablet 150 mcg PO DAILY 03/19/24 09/08/24 trihexyphenidyl 2 mg tablet 2 mg PO TID 03/19/24 09/08/24 white petrolatum (Vaseline jelly, 1 applic topical PRN 03/19/24 09/08/24 topical) apixaban 5 mg tablet (Eliquis) 5 mg PO BID 03/30/24 09/08/24 acetaminophen 325 mg tablet 650 mg PO Q6H 04/22/24 09/08/24 gabapentin 100 mg capsule 200 mg PO QPM 04/22/24 09/08/24 omeprazole 20 mg capsule,delayed 20 mg PO BID 04/22/24 09/08/24 release Previous Rx's ?Medication ?Instructions ?Recorded Stump Hop Weigher #1 ea 11/21/22 hydromorphone 4 mg tablet 2 mg (1/2 x 4 mg) PO Q4H PRN Pain 04/02/24 (Dilaudid) #1 tab CAM walker #1 ea 06/30/24 Allergies Allergy/AdvReac Type Severity Reaction Status Date / Time sulfamethoxazole (From Allergy Rash Verified 09/02/24 09:59 Septra) trimethoprim (From Septra) Allergy Rash Verified 09/02/24 09:59 pregabalin (From Lyrica) AdvReac Loopy/Unste Verified 09/02/24 09:59 anoop PFSH ED PFS: Medical History Diabetic ulcer of left foot Gangrene of left foot Goals of care, counseling/discussion CAD (coronary artery disease) Pulmonary hypertension Elevated troponin History of pulmonary embolism Chest pain 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 Charcot's joint of left foot MRSA bacteremia ESRD (end stage renal disease) ESRD (end stage renal disease) Chronic kidney disease Hyponatremia Influenza A Pneumonia Iron deficiency anemia Acute exacerbation of CHF (congestive heart failure) Bilateral lower extremity edema Neuropathy Chronic renal insufficiency Post laminectomy syndrome Lumbar disc disease with radiculopathy Sciatica associated with disorder of lumbosacral spine Uncontrolled insulin dependent diabetes mellitus Diabetes mellitus type 2, insulin dependent COPD (chronic obstructive pulmonary disease) Hyperlipemia Vitamin D deficiency Parkinson disease Chronic insomnia Stage 4 chronic renal impairment associated with type 2 diabetes mellitus History of CVA (cerebrovascular accident) Anemia in chronic illness Hypertension Fibromyalgia Diabetic neuropathy Hypothyroidism Surgical History History of left below knee amputation S/P dialysis catheter insertion History of colonoscopy 2020 Hx of hysterectomy Hx of cholecystectomy Hx of foot surgery Family History Father CAD (coronary artery disease) Mother CAD (coronary artery disease) Diabetes Grandfather CAD (coronary artery disease) Diabetes Social History Smoking and tobacco/nicotine status: former use of tobacco/nicotine Second hand smoke exposure: No Alcohol intake: current Alcohol intake frequency: holidays/special occasions only Alcohol type: hard liquor Substance/Drug Use: never Physical Exam Const: GENERAL APPEARANCE: cooperative, anxious, ill appearing (Mildly) and frail appearing ORIENTATION/CONSCIOUSNESS: Yes awake, Yes oriented to person and Yes oriented to place; not oriented to time HENMT: COMMON NORMALS: normocephalic and atraumatic HEAD & SCALP: normocephalic and atraumatic Eye: COMMON NORMALS: Equal, round and reactive pupils present and EOMs intact bilaterally PUPIL: Yes Equal, round and reactive pupils present Chest: CHEST: Yes Symmetrical chest wall rise Resp: EFFORT & INSPECTION: No symmetric chest movement and Yes tachypneic Cardio: COMMON NORMALS: regular rhythm RATE: tachycardic RHYTHM: regular rhythm GI: COMMON NORMALS: Soft to palpation and non-tender PALPATION: Yes Soft to palpation Extremity: NARRATIVE EXTREMITY EXAM: Right leg redness, warmth, swelling, and pain to touch. Open wound at medial midfoot is free of cellulitis in that area, no streaking apparent no drainage. Neuro: SENSORIUM/ORIENTATION: Yes oriented to person, Yes oriented to place and No oriented to time Course Vital Signs: Vital signs: Vital Signs Temperature 102.9 F H 09/29/24 02:39 Pulse Rate 127 H 09/29/24 01:30 Respiratory Rate 20 H 09/29/24 01:30 Blood Pressure 160/116 09/29/24 01:30 Pulse Oximetry 95 09/29/24 01:30 Oxygen Delivery Me thod Nasal Cannula 09/29/24 01:30 Oxygen Flow Rate 4 09/29/24 01:30 MDM - Extremity (Nontraumatic) Medical Decision Making 79-year-old female with redness swelling and warmth to her right lower extremity. No DVT by ultrasound. She is anticoagulated. Her white blood cell count is 31 with 92% neutrophils. Her CRP and sed rate are mildly elevated. Her chest x-ray is negative. She has a urinary tract infection that is significant. Her lactic acid is 2. Blood cultures have been drawn. She has been given vancomycin and Zosyn here. She is hypertensive despite the tachycardia, so sepsis bolus was not given, however she did receive 1 L of fluid for tachycardia. She is on oxygen chronically. With significant leukocytosis, left shift, significant fever, mental status changes, cellulitis, and urinary tract infection, the patient will be admitted for early sepsis. Hospitalist is aware. He has seen the patient in the ER. Lab Data 09/29/24 00:55 09/29/24 00:55 Radiology Impressions Chest X-Ray 09/29/24 00:35 IMPRESSION: No acute cardiopulmonary findings. Venous Duplex 09/29/24 00:35 IMPRESSION: No evidence of deep vein thrombosis. Foot X-Ray 09/29/24 00:39 IMPRESSION: Degenerative changes of the midfoot, likely reflecting Charcot arthropathy, stable to slightly worsened compared to 09/11/2021. Laboratory Results WBC 31.38 10^3/uL (3.29-11.43) H* 09/29/24 00:55 RBC 3.84 10^6/uL (3.85-5.65) L 09/29/24 00:55 Hgb 11.50 g/dL (11.27-16.99) 09/29/24 00:55 Hct 36.8 % (36-47) 09/29/24 00:55 MCV 95.8 fl (85-98) 09/29/24 00:55 MCH 29.9 pg (27-33) 09/29/24 00:55 MCHC 31.3 g/dL (30-55) 09/29/24 00:55 RDW 17.3 % (12.1-15.1) H 09/29/24 00:55 Plt Count 256 10^3/cmm (157-399) 09/29/24 00:55 MPV 11.1 fL (7.4-10.4) H 09/29/24 00:55 Neut % (Auto) 92.4 % 09/29/24 00:55 Lymph % (Auto) 2.7 % 09/29/24 00:55 [place] % (Auto) 3.5 % 09/29/24 00:55 Eos % (Auto) 0.2 % 09/29/24 00:55 Baso % (Auto) 0.3 % 09/29/24 00:55 Neut # (Auto) 28.99 10^3/uL (1.8-7.7) H 09/29/24 00:55 Lymph # (Auto) 0.9 10^3/uL (0.8-4.8) 09/29/24 00:55 [place] # (Auto) 1.1 10^3/uL (0.2-0.9) H 09/29/24 00:55 Eos # (Auto) 0.1 10^3/uL (0.0-0.8) 09/29/24 00:55 Baso # (Auto) 0.1 10^3/uL (0.0-0.1) 09/29/24 00:55 Nucleated RBC % (auto) 0 % 09/29/24 00:55 Nucleated RBCs # 0.0 /100WBC 09/29/24 00:55 ESR 50 mm/hr (0-15) H 09/29/24 00:55 Sodium 141 mmol/L (136-145) 09/29/24 00:55 Potassium 3.8 mmol/L (3.5-5.1) 09/29/24 00:55 Chloride 98 mmol/L (98-107) 09/29/24 00:55 Carbon Dioxide 27 mmol/L (22-29) 09/29/24 00:55 Anion Gap 19.8 (5-19) H 09/29/24 00:55 BUN 36 mg/dL (8-23) H 09/29/24 00:55 Creatinine 3.9 mg/dL (0.5-0.9) H 09/29/24 00:55 GFR Calculation Not Reportable 09/29/24 00:55 Glucose 92 mg/dL (65-115) 09/29/24 00:55 Calculated Osmolality 300 mOsm/kg (285-295) H 09/29/24 00:55 Lactic Acid 2.1 mmol/L (0.5-2.2) 09/29/24 00:55 Calcium 8.7 mg/dL (8.5-10.5) 09/29/24 00:55 Magnesium 1.1 mg/dL (1.7-2.3) L 09/29/24 00:55 Total Bilirubin 1.2 mg/dL (0.15-1.2) 09/29/24 00:55 AST 23 U/L (0-32) 09/29/24 00:55 ALT < 5 U/L (0-33) 09/29/24 00:55 Alkaline Phosphatase 141 U/L (35-105) H 09/29/24 00:55 Creatine Kinase 16 U/L (26-192) L 09/29/24 00:55 C-Reactive Protein 35.1 mg/L (0.0-4.9) H 09/29/24 00:55 Total Protein 8.0 g/dL (6.6-8.7) 09/29/24 00:55 Albumin 3.8 g/dL (3.5-5.2) 09/29/24 00:55 Globulin 4.2 g/dL (1.3-4.6) 09/29/24 00:55 Urine Color Yellow (Yellow) 09/29/24: Urine Appearance Cloudy (CLEAR) A 09/29/24: Urine pH 7.5 (5-7) 09/29/24: Ur Specific Julian 1.009 (1.005-1.030) 09/29/24: Urine Protein 2+ (Negative) A 09/29/24: Urine Glucose (UA) Negative (Normal) 06/02/25 01:26 Urine Ketones Negative (Negative) 09/29/24 01:26 Urine Blood Non-haemolysed trace (Negative) 09/29/24 01:26 Urine Nitrate Negative (Negative) 09/29/24 01:26 Urine Bilirubin Negative (Negative) 09/29/24 01:26 Urine Urobilinogen 1.0 mg/dL (Negative) 09/29/24 01:26 Ur Leukocyte Esterase 2+ (Negative) A 09/29/24 01:26 Urine RBC 0-2 /hpf (0-2) 09/29/24 01:26 Urine WBC 51-100 /hpf (0-5) H 09/29/24 01:26 Ur Squamous Epith Cells 0-5 /hpf (0-5) 09/29/24 01:26 Amorphous Sediment Not Reportable 09/29/24 01:26 Urine Bacteria Exceeds /hpf (NONE) 09/29/24 01:26 Hyaline Casts 2.87 /lpf 09/29/24 01:26 All radiology interpretation(s) finalized by discharge Critical Care Time Critical Care Time: Critical Care Time: Yes Total Critical Care Time: 35 Attestation: This case had a high probability of a clinically significant, sudden, or life threatening deterioration of this patient's condition which required my full and direct attention, intervention and personal management. Time is independent of any procedures performed. Discharge Plan Discharge Patient Disposition: Admitted As Inpatient Admit Provider: Philip Foster Clinical Impression: Sepsis, Acute UTI, Acute alteration in mental status, Cellulitis of right lower extremity from knee to ankle Condition: Fair Coding Level of Care Code ED Client Relationship Executive for Dominick Baca
[2024-09-29 01:06] LABS: Basophils # 0.1 10^3/uL (0.0-0.1); Basophils % 0.3 %; Eosinophils # 0.1 10^3/uL (0.0-0.8); Eosinophils % 0.2 %; Hematocrit 36.8 % (36-47); Lymphocytes # 0.9 10^3/uL (0.8-4.8); Lymphocytes % 2.7 %; Mean Corpuscular HGB Conc 31.3 g/dL (30-55); Mean Corpuscular Hemoglobin 29.9 pg (27-33); Mean Corpuscular Volume 95.8 fl (85-98); Mean Platelet Volume 11.1 fL (7.4-10.4); Monocytes # 1.1 10^3/uL (0.2-0.9); Monocytes % 3.5 %; Neutrophils # 28.99 10^3/uL (1.8-7.7); Neutrophils % 92.4 %; Nucleated Red Blood Cells % 0 %; Platelet Count 256 10^3/cmm (157-399); Red Blood Count 3.84 10^6/uL (3.85-5.65); Red Cell Distribution Width 17.3 % (12.1-15.1)
[2024-09-29] MEDS: acetaminophen 325 mg Tablet 650 MG PO ×2 (01:06→12:24)
[2024-09-29] MEDS: ondansetron 2 mg/ML SDV 2 mL 4 MG IVP (01:07)
[2024-09-29] MEDS: morphine 4 mg/mL SDV 1 mL IVP (01:09)
[2024-09-29] MEDS: piperacillin-tazobactam 4.5 GM in sodium chloride 0.9% (plus) 50 ML IV (01:15)
[2024-09-29 01:32] LABS: Anion Gap 19.8 (5-19); Blood Urea Nitrogen 36 mg/dL (8-23); Carbon Dioxide 27 mmol/L (22-29); Chloride 98 mmol/L (98-107); Lactic Sepsis W/Reflex 2.1 mmol/L (0.5-2.2); Potassium 3.8 mmol/L (3.5-5.1); Sodium 141 mmol/L (136-145)
[2024-09-29 01:33] LABS: Alanine Aminotransferase < 5 U/L (0-33); Albumin Level 3.8 g/dL (3.5-5.2); Alkaline Phosphatase 141 U/L (35-105); Aspartate Amino Transferase 23 U/L (0-32); C Reactive Protein 35.1 mg/L (0.0-4.9); Calcium 8.7 mg/dL (8.5-10.5); Creatine Phosphokinase 16 U/L (26-192); Creatinine Clr Calc Pharmacy 13.3242; Globulin 4.2 g/dL (1.3-4.6); Glucose 92 mg/dL (65-115); Magnesium 1.1 mg/dL (1.7-2.3); Osmolality Calculated 300 mOsm/kg (285-295); Total Bilirubin 1.2 mg/dL (0.15-1.2)
[2024-09-29] MEDS: vancomycin 1,250 MG/250 ML PIGGYBACK 166.67 MG IV (01:33)
[2024-09-29] MEDS: sodium chloride 0.9% 1,000 ML 999 ML IV ×2 (01:36→05:09)
[2024-09-29 01:48] LABS: Bilirubin Urine Negative (Negative); Blood Urine Non-haemolysed trace (Negative); Glucose Urine UA Negative (Normal); Ketones Urine Negative (Negative); Leukocyte Esterase Urine 2+ (Negative); Nitrate Urine Negative (Negative); Protein Urine 2+ (Negative); Specific Gravity, Urine 1.009 (1.005-1.030); Urine Appearance Cloudy (CLEAR); Urine Color Yellow (Yellow); pH Urine 7.5 (5-7)
[2024-09-29 01:53] LABS: Add Urine Microscopic? YES; Bacteria Urine EXCEEDS /hpf; Hyaline Casts Urine 2.87 /lpf; RBC Urine 0-2 /hpf (0-2); Squamous Epithelial Cell Urine 0-5 /hpf (0-5); WBC Urine 51-100 /hpf (0-5)
[2024-09-29 02:05] LABS: Erythrocyte Sedimentation Rate 50 mm/hr (0-15)
[2024-09-29 02:06] LABS: White Blood Count 31.38 10^3/uL (3.29-11.43)
[2024-09-29 02:07] LABS: Add Urine Culture? Yes
[2024-09-29 02:50] LABS: Reflex Lactate Order REFLEX LACTIC ORDERD
[2024-09-29] MEDS: ketorolac 30 mg/mL INJ 15 MG IVP (02:54)
[2024-09-29] MEDS: magnesium sulfate premix 2 GM/50 ML PIGGYBACK IV (03:22)
--- NOTE | 2024-09-29 04:18 | PM.HP ---
Providers/Chief Complaint Admitting Physician: Philip Foster MD Primary Care Provider: Brandi Escalera MD Chief Complaint: RIGHT LEG PAIN History of Present Illness Meghna Chaudhari is a 79 year old female is a resident at [facility] long term under the care of Dr. Hosea Delvalle. The patient is accompanied by her daughters Cyndy rich of biofuels technology development manager and Nereyda another daughter. She has 2 other daughters 1 living in [place] and 1 living in [facility] or [place]. Patient today has had temperature 100 100.5 actually ongoing for about a week. She has had fever and chills and continued numbness of the feet. She had a left BKA already for diabetic foot ulcer and has been seeing Dr. Ash for right diabetic foot ulcer and Charcot foot. In the last few days she has had erythema up the leg circumferentially. Moderately tender. 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 Medications/Allergies Home Medications ?Medication ?Instructions ?Recorded ?Confirmed ?Last Taken ?Type bimatoprost 0.01 % eye drops 1 drp ophthalmic (eye) BEDTIME 04/07/22 09/08/24 04/21/24 History (Lumigan) carbidopa 25 mg-levodopa 100 mg See Rx Instructions .Route .COMPLEX 04/07/22 09/08/24 03/29/24 17:45 History tablet furosemide 40 mg tablet (Lasix) 40 mg PO BID 04/07/22 09/08/24 04/22/24 History insulin aspart U-100 100 unit/mL See Rx Instructions .Route .COMPLEX 04/07/22 09/08/24 04/22/24 History (3 mL) subcutaneous pen (Novolog FlexPen U-100 Insulin aspart) loperamide 2 mg tablet (Imodium 2 mg PO Q6H PRN Loose Stool 04/07/22 09/08/24 04/21/24 History A-D) metolazone 5 mg tablet 5 mg PO QAM 04/07/22 09/08/24 04/21/24 History metoprolol tartrate 100 mg tablet 100 mg PO BID 04/07/22 09/08/24 04/22/24 History ondansetron HCl 4 mg tablet 4 mg PO Q6H PRN Nausea And Vomiting 04/07/22 09/08/24 04/19/24 History simvastatin 40 mg tablet 40 mg PO BEDTIME@21 04/07/22 09/08/24 04/21/24 History bisacodyl 10 mg rectal suppository 10 mg AK DAILY PRN Constipation 07/14/22 09/08/24 03/13/24 History Stump Car Sales Representative #1 ea 11/21/22 09/08/24 Unknown Rx alprazolam 0.5 mg tablet (Xanax) 0.5 mg PO TID PRN Anxiety 04/29/23 09/08/24 03/28/24 12:10 History sertraline 100 mg tablet 100 mg PO DAILY 04/29/23 09/08/24 04/22/24 History sevelamer carbonate 800 mg tablet 1,600 mg PO TID 04/29/23 09/08/24 04/22/24 History (Renvela) vitamin A and D See Rx Instructions .Route .COMPLEX 04/29/23 09/08/24 04/22/24 History fluticasone propionate 50 1 mcg intranasal BID 03/19/24 09/08/24 04/22/24 History mcg/actuation nasal spray,suspension (Flonase Allergy Relief) insulin glargine 100 unit/mL (3 35 unit SUBCUT BEDTIME 03/19/24 09/08/24 04/21/24 History mL) subcutaneous pen (Basaglar KwikPen U-100 Insulin) levothyroxine 150 mcg tablet 150 mcg PO DAILY 03/19/24 09/08/24 04/22/24 History trihexyphenidyl 2 mg tablet 2 mg PO TID 03/19/24 09/08/24 04/22/24 History white petrolatum (Vaseline jelly, 1 applic topical PRN 03/19/24 09/08/24 03/29/24 19:45 History topical) apixaban 5 mg tablet (Eliquis) 5 mg PO BID 03/30/24 09/08/24 04/22/24 History hydromorphone 4 mg tablet 2 mg (1/2 x 4 mg) PO Q4H PRN Pain 04/02/24 09/08/24 04/22/24 Rx (Dilaudid) #1 tab acetaminophen 325 mg tablet 650 mg PO Q6H 04/22/24 09/08/24 04/08/24 History gabapentin 100 mg capsule 200 mg PO QPM 04/22/24 09/08/24 04/21/24 History omeprazole 20 mg capsule,delayed 20 mg PO BID 04/22/24 09/08/24 04/22/24 History release CAM walker #1 ea 06/30/24 09/08/24 Unknown Rx Allergies Allergy/AdvReac Type Severity Reaction Status Date / Time sulfamethoxazole (From Allergy Rash Verified 09/02/24 09:59 Septra) trimethoprim (From Septra) Allergy Rash Verified 09/02/24 09:59 pregabalin (From Lyrica) AdvReac Loopy/Unste Verified 09/02/24 09:59 anoop PFSH Acute PFSH: Medical History Diabetic ulcer of left foot Gangrene of left foot Goals of care, counseling/discussion CAD (coronary artery disease) Pulmonary hypertension Elevated troponin History of pulmonary embolism Chest pain 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 Charcot's joint of left foot MRSA bacteremia ESRD (end stage renal disease) ESRD (end stage renal disease) Chronic kidney disease Hyponatremia Influenza A Pneumonia Iron deficiency anemia Acute exacerbation of CHF (congestive heart failure) Bilateral lower extremity edema Neuropathy Chronic renal insufficiency Post laminectomy syndrome Lumbar disc disease with radiculopathy Sciatica associated with disorder of lumbosacral spine Uncontrolled insulin dependent diabetes mellitus Diabetes mellitus type 2, insulin dependent COPD (chronic obstructive pulmonary disease) Hyperlipemia Vitamin D deficiency Parkinson disease Chronic insomnia Stage 4 chronic renal impairment associated with type 2 diabetes mellitus History of CVA (cerebrovascular accident) Anemia in chronic illness Hypertension Fibromyalgia Diabetic neuropathy Hypothyroidism Surgical History History of left below knee amputation S/P dialysis catheter insertion History of colonoscopy 2020 Hx of hysterectomy Hx of cholecystectomy Hx of foot surgery Family History Father CAD (coronary artery disease) Mother CAD (coronary artery disease) Diabetes Grandfather CAD (coronary artery disease) Diabetes Social History (Updated 09/29/24 @ 04:24 by Philip Foster MD) Smoking and tobacco/nicotine status: former use of tobacco/nicotine Quit status (tobacco/nicotine): has quit using Former quit date comment: Quit 30 years ago or more Second hand smoke exposure: No Alcohol intake: current Alcohol intake frequency: holidays/special occasions only Alcohol type: hard liquor Substance/Drug Use: never Additional social history: In past she has been intermittently full code or DNR depending on the admission. Patient is accompanied by her daughters Cyndy who is power of biofuels technology development manager and Nereyda. Patient wants full CODE STATUS as discussed with Philip Foster MD on 09/29/2024 Vitals/I&O/Wt Last Vital Signs Temp 102.9 F H 09/29/24 02:39 Pulse 126 H 09/29/24 04:00 Resp 20 H 09/29/24 01:30 BP 111/71 09/29/24 04:00 Pulse Ox 96 09/29/24 04:00 O2 Del Method Nasal Cannula 09/29/24 04:00 O2 Flow Rate 4 09/29/24 03:00 09/28/24 09/28/24 09/29/24 14:59 22:59 06:59 Intake Total 50 / 50 Balance 50 / 50 Weight last 48 hrs Weight 87.997 kg Physical Exam Narrative: General Well-developed well-nourished obese female in no acute cardiopulmonary distress Neuro patient is alert and oriented to person place and nearly the date she thought it was 30 September and so the second but recognized that September 28 was a Sunday and September 29 is a Sunday. She is also aware that David is president. Cardiovascular irregular tachycardic rhythm Lungs clear to auscultation bilaterally Abdomen positive bowel sounds soft nontender Neck no bruits Calves 1/4 bilateral pretibial edema Data 09/29/24 00:55 09/29/24 00:55 Micro: Microbiology 09/29/24 01:14 Blood Culture - Preliminary Blood SPECIMEN COLLECTED 09/29/24 00:55 Blood Culture - Preliminary Blood SPECIMEN COLLECTED A&P Assessment and plan (1) Diabetes mellitus type 2, insulin dependent: Start 1600-calorie ADA diet. Patient will have her Lantus continue 35 units nightly and sliding scale insulin NovoLog low scale (2) Acute alteration in mental status: This may be in part due to high dose Sinemet which can raise dopamine to the point of psychosis. Decrease Sinemet to 2 tablets 3 times daily of the 25?100 carbidopa levodopa tablets. (3) Cellulitis of right lower extremity from knee to ankle: Continue with Zosyn and vancomycin. Patient is still having fevers but all suspected pathogen should be covered by this regimen. Additional Tylenol dose low-dose IV fluids and follow (4) Parkinson's Disease: As above patient agitated and hyperactive will give 1 dose Haldol 5 mg IV x 1 (5) ESRD on hemodialysis: Will need to notified die grinder regarding patient's admission for dialysis while inpatient. I believe her regimen is Sunday typically (6) Sepsis: Not hypotensive she has markedly elevated white count and fever and heart rate but that in part due to A-fib. Will give 500 cc fluid bolus and place a Puckett. If making urine can give additional fluid boluses otherwise could run into heart failure volume overload due to end-stage renal disease PDMP PDMP Reviewed: Not Reviewed Attestations Medical Necessity Statement*: Patient is admitted to hospital with acute cellulitis and sepsis. Will require at least 3 midnights in hospital Coding Level of Care Code 51247 Diagnoses Diabetes mellitus type 2, insulin dependent E11.9; Z79.4 Acute alteration in mental status R41.82 Cellulitis of right lower extremity from knee to ankle L03.115 Parkinson's disease without dyskinesia or fluctuating manifestations G20.A1 Dyskinesia presence: without dyskinesia Fluctuating manifestations: without fluctuating manifestations ESRD on hemodialysis N18.6; Z99.2 Sepsis A41.9 Time Spent (min) 70
[2024-09-29] MEDS: acetaminophen 500 mg Tablet 1000 MG PO (04:25)
[2024-09-29] MEDS: haloperidol inj 5 mg/mL INJ 1 mL IVP (04:27)
[2024-09-29 04:57] LABS: Lactic Acid level (Lactate) 1.9 mmol/L (0.5-2.2)
[2024-09-29] MEDS: levothyroxine 150 mcg Tablet PO (05:09)
[2024-09-29] MEDS: metOLazone 5 MG Tablet PO (05:09)
[2024-09-29] MEDS: sodium chloride 0.9% 1,000 ML 50 ML IV (06:22)
[2024-09-29 06:46] LABS: Glucose Point of Care 85 mg/dL (70-110)
[2024-09-29 07:29] LABS: Magnesium 1.5 mg/dL (1.7-2.3); Phosphorus 4.1 mg/dL (2.5-4.5)
[2024-09-29] MEDS: sevelamer 800 mg Tablet 1600 MG PO ×3 (08:59→20:06)
[2024-09-29] MEDS: FUROsemide 40 mg Tablet PO ×2 (08:59→17:08)
[2024-09-29] MEDS: metoprolol tartrate 50 mg Tablet 100 MG PO ×2 (08:59→17:08)
[2024-09-29] MEDS: sertraline 100 mg Tablet PO (08:59)
[2024-09-29] MEDS: carbidopa-levodopa 25-100mg Tablet 2 EACH PO ×3 (08:59→20:07)
[2024-09-29] MEDS: pantoprazole DR 40 mg Tablet PO (09:00)
[2024-09-29] MEDS: apixaban 5 mg Tablet PO ×2 (09:00→17:08)
[2024-09-29 11:35] LABS: Glucose Point of Care 116 mg/dL (70-110)
--- NOTE | 2024-09-29 12:13 | PM.PN ---
Subjective Subjective: The patient was seen this morning. She complained that she was freezing. She states that she still produces urine. She is tells me that she is on Sunday HD. She denies any fever, dizziness, lightheadedness, CP, palpitations, dyspnea, cough. She was febrile this morning. Vitals/I&O/Wt Last Vital Signs Temp 98.3 F 09/29/24 11:50 Pulse 81 09/29/24 11:50 Resp 18 09/29/24 11:50 BP 120/80 09/29/24 11:50 Pulse Ox 99 09/29/24 11:50 O2 Del Method Nasal Cannula 09/29/24 11:50 O2 Flow Rate 3.5 09/29/24 09:34 09/28/24 09/29/24 09/29/24 22:59 06:59 14:59 Intake Total 2351.667 / 2351.667 240 / 240 Balance 2351.667 / 2351.667 240 / 240 Weight last 48 hrs Weight 90.917 kg Weight 87.453 kg Weight 87.997 kg Physical Exam Narrative: Constitutional: GENERAL APPEARANCE: cooperative, uncomfortable and appears older than stated age; disheveled, ill appearing and frail appearing HENT: HEAD & SCALP: normocephalic and atraumatic; NOSE: external nose not normal EXTERNAL EAR: no external ears normal MOUTH: Normal oral and palatal mucosa present THROAT: posterior oropharynx normal Eye: PERRL, EOMI, normal conjunctiva b/l Neck: normal visual inspection, trachea midline, No anterior neck swelling, No tracheal deviation, No tracheostomy present, no submandibular swelling, Thyroid normal , cervical ROM normal Lymph: no cervical, supraclavicular LAD Resp: no use of accessory muscles, CTAB, no w/r/r Cardio: RRR, no m/r/g, or clicks. 2+ radial and DP pulses. GI: normoactive bowel sounds, non-tender, non-distended, no guarding, no rigidity, no rebound tenderness, no hepatosplenomegaly. : (-) Puckett in place draining urine, (-) CVA tenderness Back/Pelvis: Deferred Extremity: L. BKA w/ stump intact. R. LE erythema and swelling as well as wound on the medial aspect of the plantar surface. Neuro: AO to person, place and time. CN normal except as noted. Normal gait present. 5/5 motor strength present throughout. Normal motor muscle tone present throughout. No tremor noted. No motor abnormalities present. No motor fasciculations present Psych: APPEARANCE: Yes grossly normal ATTITUDE: Yes calm and Yes engaged ACTIVITY/MOTOR BEHAVIOR: Yes appropriate eye contact SPEECH: Yes normal speech MOOD & AFFECT: Yes euthymic mood THOUGHT PROCESS: Normal thought process present THOUGHT CONTENT: Yes Normal thought content present ATTENTION/CONCENTRATION: Yes attention grossly intact MEMORY/COGNITION: Yes memory grossly intact Urinary Catheter Management: Puckett: Cath Placed During This Visit: yes Reason for Continuing Indwelling Catheter: Other Urinary Catheter Date of Insertion: 09/29/24 Urinary Catheter Time of Insertion: 04:21 Data 09/29/24 00:55 09/29/24 00:55 Micro: Microbiology 09/29/24 01:14 Blood Culture - Preliminary Blood SPECIMEN COLLECTED 09/29/24 00:55 Blood Culture - Preliminary Blood SPECIMEN COLLECTED A&P Assessment and plan (1) Diabetes mellitus type 2, insulin dependent: (2) Acute alteration in mental status: (3) Cellulitis of right lower extremity from knee to ankle: (4) Parkinson's Disease: (5) ESRD on hemodialysis: (6) Sepsis: Plan #Severe Sepsis: due to a UTI and R. LE cellulitis Not hypotensive she has markedly elevated white count and fever and heart rate but that in part due to A-fib. Will give 500 cc [address] bol[address] and place a Puckett. If making urine can give additional fluid boluses otherwise could run into heart failure volume overload due to end-stage renal disease - F/u BCx and UCx. Continue Vanc. Will consider switching to Meropenem from Zosyn. Monitor vanc levels. # Cellulitis of right lower extremity from knee to ankle: Continue with Zosyn and vancomycin. Monitor fever. Additional Tylenol dose low-dose IV fluids and follow. May need to escalate to Meropenem - US of Anne VILLALOBOS neg for DVT. #Complicated UTI - On Zosyn and Vanc. Will consider escalation for Meropenem as well as further imaging in the AM. #Acute alteration in mental status: #Metabolic Encephalopathy in the setting of Parkinson's disease - does she have Parkinson's dementia? - This may be in part due to high dose Sinemet which can raise dopamine to the point of psychosis. Continue decrease Sinemet to 2 tablets 3 times daily of the 25?100 carbidopa levodopa tablets started on admission. # Diabetes mellitus type 2, insulin dependent: Start 1600-calorie ADA diet. Patient will have her Lantus continue 35 units nightly and sliding scale insulin NovoLog low scale # Parkinson's Disease: As above patient agitated and hyperactive will give 1 dose Haldol 5 mg IV x 1 # oliguric ESRD on on MWF HD: -Consulted Nephrology #Paroxysmal Afib - On Telemetry #Hx of PE DVT ppx: Apixaban. PDMP PDMP Reviewed: Not Reviewed Attestations Medical Necessity Statement*: Patient needs to remain actively hospitalized for at least 2 midnights for her severe sepsis, likely secondary to a right lower extremity cellulitis as well as a UTI. Patient is at risk of decompensation if discharged prematurely. Other Coding Information Focused coding review requested Diagnoses Diabetes mellitus type 2, insulin dependent E11.9; Z79.4 Acute alteration in mental status R41.82 Cellulitis of right lower extremity from knee to ankle L03.115 Parkinson's disease without dyskinesia or fluctuating manifestations G20.A1 Dyskinesia presence: without dyskinesia Fluctuating manifestations: without fluctuating manifestations ESRD on hemodialysis N18.6; Z99.2 Sepsis A41.9
[2024-09-29] MEDS: piperacillin-tazobactam 3.375 GM in sodium chloride 0.9% (plus) 50 ML IV (12:24)
[2024-09-29] MEDS: oxyCODONE 5 mg IR Tab/Cap PO (15:32)
[2024-09-29 16:28] LABS: Glucose Point of Care 110 mg/dL (70-110)
[2024-09-29] MEDS: gabapentin 100 mg Capsule 200 MG PO (17:08)
[2024-09-29] MEDS: tizanidine 4 mg Tablet PO (18:00)
--- NOTE | 2024-09-29 18:35 | PM.CONSULT ---
Providers/Reason For Consult Consulting Physician/Specialty*: [facility]/nEPHROLOGY Reason for Consult*: ESRD Attending Physician: Lisa Belcher MD Primary Care Provider: Brandi Escalera MD History of Present Illness History of Present Illness Meghna Chaudhari is a 79 year old female Patient is a 79-year-old female who was transferred from the custodial to the emergency department due to fever chills and right leg pain. Patient had left BKA and has right diabetic foot ulcer and Charcot foot. Last dialysis was on Sunday. On presentation patient is febrile to 102. 9, tachycardic, lab data significant for elevated white count of 31,000. Blood pressures were borderline low. Patient received IV fluid bolus in the emergency department. Patient currently denies any complaints. Currently on 3 L O2 by nasal cannula which is her baseline. Review of Systems Narrative: Other review of systems negative Medications/Allergies Home Medications ?Medication ?Instructions ?Recorded ?Confirmed ?Last Taken ?Type bimatoprost 0.01 % eye drops 1 drp ophthalmic (eye) BEDTIME 04/07/22 09/29/24 09/28/24 16:34 History (Lumigan) carbidopa 25 mg-levodopa 100 mg 1 tab PO TID 04/07/22 09/29/24 09/28/24 18:10 History tablet furosemide 40 mg tablet (Lasix) 40 mg PO BID 04/07/22 09/29/24 09/28/24 15:24 History insulin aspart U-100 100 unit/mL See Rx Instructions .Route .COMPLEX 04/07/22 09/29/24 09/28/24 18:11 History (3 mL) subcutaneous pen (Novolog FlexPen U-100 Insulin aspart) loperamide 2 mg tablet (Imodium 2 mg PO Q6H PRN Loose Stool 04/07/22 09/29/24 09/26/24 20:06 History A-D) metolazone 5 mg tablet 5 mg PO QAM 04/07/22 09/29/24 09/28/24 16:34 History ondansetron HCl 4 mg tablet 4 mg PO Q6H PRN Nausea And Vomiting 04/07/22 09/29/24 06/09/24 12:40 History simvastatin 40 mg tablet 40 mg PO BEDTIME@21 04/07/22 09/29/24 09/28/24 16:34 History bisacodyl 10 mg rectal suppository 10 mg ND DAILY PRN Constipation 07/14/22 09/29/24 03/13/24 History Stump Glass Decorator #1 ea 11/21/22 09/29/24 Unknown Rx alprazolam 0.5 mg tablet (Xanax) 0.5 mg PO TID PRN Anxiety 04/29/23 09/29/24 09/28/24 06:55 History vitamin A and D See Rx Instructions .Route .COMPLEX 04/29/23 09/29/24 09/28/24 18:10 History fluticasone propionate 50 1 mcg intranasal BID 03/19/24 09/29/24 09/28/24 16:34 History mcg/actuation nasal spray,suspension (Flonase Allergy Relief) insulin glargine 100 unit/mL (3 15 unit SUBCUT BEDTIME 03/19/24 09/29/24 09/28/24 17:36 History mL) subcutaneous pen (Basaglar KwikPen U-100 Insulin) levothyroxine 150 mcg tablet 150 mcg PO DAILY 03/19/24 09/29/24 09/28/24 16:34 History trihexyphenidyl 2 mg tablet 2 mg PO TID 03/19/24 09/29/24 09/28/24 16:34 History white petrolatum (Vaseline jelly, 1 applic topical PRN 03/19/24 09/29/24 03/29/24 19:45 History topical) apixaban 5 mg tablet (Eliquis) 5 mg PO BID 03/30/24 09/29/24 09/28/24 16:34 History acetaminophen 325 mg tablet 650 mg PO Q6H 04/22/24 09/29/24 09/21/24 02:06 History gabapentin 100 mg capsule 200 mg PO QPM 04/22/24 09/29/24 09/28/24 16:34 History omeprazole 20 mg capsule,delayed 20 mg PO BID 04/22/24 09/29/24 09/28/24 16:34 History release CAM walker #1 ea 06/30/24 09/29/24 Unknown Rx azelastine 137 mcg (0.1 %) nasal 2 spray intranasal BID 09/29/24 09/29/24 09/28/24 History spray 0434 diphenhydramine HCl 25 mg capsule 25 mg PO TID PRN Itching 09/29/24 09/29/24 09/28/24 18:55 History fluoxetine 10 mg capsule (Prozac) 10 mg PO DAILY 09/29/24 09/29/24 09/28/24 05:19 History nystatin 100,000 unit/gram topical 1 applic topical BID 09/29/24 09/29/24 09/28/24 18:10 History powder oxycodone 5 mg tablet 5 mg PO Q6H PRN Pain 09/29/24 09/29/24 09/28/24 18:55 History tizanidine 4 mg tablet 4 mg PO Q8H PRN Muscle Spasm 09/29/24 09/29/24 09/28/24 18:55 History vitamin B complex and vitamin C 1 cap PO DAILY 09/29/24 09/29/24 09/28/24 05:19 History no.20-folic acid 1 mg capsule ([email or web address]) Allergies Allergy/AdvReac Type Severity Reaction Status Date / Time sulfamethoxazole (From Allergy Rash Verified 09/02/24 09:59 Septra) trimethoprim (From Septra) Allergy Rash Verified 09/02/24 09:59 pregabalin (From Lyrica) AdvReac Loopy/Unste Verified 09/02/24 09:59 anoop Current Medications Generic Name Dose Route Start Last Admin Trade Name Freq PRN Reason Stop Dose Admin Acetaminophen 650 mg 09/29/24 04:20 09/29/24 12:24 Acetaminophen 325 Mg Tablet PO 650 mg Q6H PRN Administration Mild/Mod Pain Or Temp >/= 101 Apixaban 5 mg 09/29/24 09:00 09/29/24 17:08 Apixaban 5 Mg Tablet PO 5 mg BID BILLIE Administration Carbidopa/Levodopa 2 each 09/29/24 09:00 09/29/24 15:32 Carbidopa-Levodopa 25-100mg Tablet PO 2 each TID BILLIE Administration Fluticasone Propionate 1 spray 09/29/24 09:00 09/29/24 17:07 Fluticasone Nasal [place] 16gm Btl INTRANASAL Not Given BID BILLIE Furosemide 40 mg 09/29/24 09:00 09/29/24 17:08 Furosemide 40 Mg Tablet PO 40 mg BID BILLIE Administration Gabapentin 200 mg 09/29/24 18:00 09/29/24 17:08 Gabapentin 100 Mg Capsule PO 200 mg QPM BILLIE Administration Sodium Chloride 1,000 mls @ 50 mls/hr 09/29/24 04:45 09/29/24 07:34 Sodium Chloride 0.9% IV 09/30/24 20:44 50 mls/hr .Q20H BILLIE Infusion Piperacillin Sod/Tazobactam 50 mls @ 12.5 mls/hr 09/29/24 13:00 09/29/24 15:36 Sod 3.375 gm/ Sodium Chloride IV Infused Q12H BILLIE Infusion Insulin Human Lispro 0 unit 09/29/24 08:00 09/29/24 17:07 Insulin Lispro 100 Unit/1 Ml SUBCUT Not Given WM&BEDTIME BILLIE Protocol Levothyroxine Sodium 150 mcg 09/29/24 06:00 09/29/24 05:09 Levothyroxine 150 Mcg Tablet PO 150 mcg QAM BILLIE Administration Metolazone 5 mg 09/29/24 06:00 09/29/24 05:09 Metolazone 5 Mg Tablet PO 5 mg QAM BILLIE Administration Metoprolol Tartrate 100 mg 09/29/24 09:00 09/29/24 17:08 Metoprolol Tartrate 50 Mg Tablet PO 100 mg BID BILLIE Administration Oxycodone HCl 5 mg 09/29/24 14:49 09/29/24 15:32 Oxycodone 5 Mg Ir Tab/Cap PO 5 mg Q6H PRN Administration PAIN Pantoprazole Sodium 40 mg 09/29/24 09:00 09/29/24 09:[address] 40 Mg Tablet PO 40 mg DAILY BILLIE Administration Sertraline HCl 100 mg 09/29/24 09:00 09/29/24 08:59 Sertraline 100 Mg Tablet PO 100 mg DAILY BILLIE Administration Sevelamer Carbonate 1,600 mg 09/29/24 09:00 09/29/24 15:32 Sevelamer 800 Mg Tablet PO 1,600 mg TID BILLIE Administration Tizanidine HCl 4 mg 09/29/24 17:40 09/29/24 18:00 Tizanidine 4 Mg Tablet PO 4 mg Q8H PRN Administration Muscle Spasm Trihexyphenidyl HCl 2 mg 09/29/24 09:00 09/29/24 15:33 Trihexyphenidyl 2 Mg Tablet PO 2 mg TID BILLIE Administration PFSH Acute PFSH: Medical History Diabetic ulcer of left foot Gangrene of left foot Goals of care, counseling/discussion CAD (coronary artery disease) Pulmonary hypertension Elevated troponin History of pulmonary embolism Chest pain 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 Charcot's joint of left foot MRSA bacteremia ESRD (end stage renal disease) ESRD (end stage renal disease) Chronic kidney disease Hyponatremia Influenza A Pneumonia Iron deficiency anemia Acute exacerbation of CHF (congestive heart failure) Bilateral lower extremity edema Neuropathy Chronic renal insufficiency Post laminectomy syndrome Lumbar disc disease with radiculopathy Sciatica associated with disorder of lumbosacral spine Uncontrolled insulin dependent diabetes mellitus Diabetes mellitus type 2, insulin dependent COPD (chronic obstructive pulmonary disease) Hyperlipemia Vitamin D deficiency Parkinson disease Chronic insomnia Stage 4 chronic renal impairment associated with type 2 diabetes mellitus History of CVA (cerebrovascular accident) Anemia in chronic illness Hypertension Fibromyalgia Diabetic neuropathy Hypothyroidism Surgical History History of left below knee amputation S/P dialysis catheter insertion History of colonoscopy 2020 Hx of hysterectomy Hx of cholecystectomy Hx of foot surgery Family History Father CAD (coronary artery disease) Mother CAD (coronary artery disease) Diabetes Grandfather CAD (coronary artery disease) Diabetes Social History (Updated 09/29/24 @ 04:24 by Philip Foster MD) Smoking and tobacco/nicotine status: former use of tobacco/nicotine Quit status (tobacco/nicotine): has quit using Former quit date comment: Quit 30 years ago or more Second hand smoke exposure: No Alcohol intake: current Alcohol intake frequency: holidays/special occasions only Alcohol type: hard liquor Substance/Drug Use: never Additional social history: In past she has been intermittently full code or DNR depending on the admission. Patient is accompanied by her daughters Cyndy who is power of corporate associate attorney and Nereyda. Patient wants full CODE STATUS as discussed with Philip Foster MD on 09/29/2024 Vitals/I&O/Wt Last Vital Signs Temp 100.6 F H 09/29/24 16:00 Pulse 85 09/29/24 16:00 Resp 18 09/29/24 16:00 BP 108/53 09/29/24 16:00 Pulse Ox 97 09/29/24 16:00 O2 Del Method Nasal Cannula 09/29/24 16:00 O2 Flow Rate 3.5 09/29/24 09:34 09/29/24 09/29/24 09/29/24 06:59 14:59 22:59 Intake Total 2351.667 / 2351.667 480 / 480 410 / 890 Output Total 300 / 300 Balance 2351.667 / 2351.667 480 / 480 110 / 590 Weight last 48 hrs Weight 90.917 kg Weight 87.453 kg Weight 87.997 kg Physical Exam Narrative: Patient is awake alert, no distress, on 3 L O2 by nasal cannula PERRLA S1-S2 regular rate and rhythm per report Lungs clear per report Abdomen soft nontender per report Left BKA Urinary Catheter Management: Puckett: Cath Placed During This Visit: yes Reason for Continuing Indwelling Catheter: Other Urinary Catheter Date of Insertion: 09/29/24 Urinary Catheter Time of Insertion: 04:21 Data 09/29/24 00:55 09/29/24 00:55 Micro: Microbiology 09/29/24 01:14 Blood Culture - Preliminary Blood 09/29/24 00:55 Blood Culture - Preliminary Blood SPECIMEN COLLECTED A&P Assessment and plan (1) ESRD on hemodialysis: 1. ESRD: On MWF schedule, blood pressures borderline low today, will hold off on HD today and plan for HD tomorrow with limited ultrafiltration. 2. Sepsis: Workup pending, on vancomycin and Zosyn. Keep Vanco trough 15-20. 3. History of hypertension, meds on hold 4. Anemia: Hemoglobin at goal, Patient evaluated using audiovisual cart. Time spent 40 minutes. PDMP PDMP Reviewed: Not Reviewed Consult Attestations Medical Necessity Statement: PER MYLENE Coding Level of Care Code Acute Code for Chg Fwd Diagnoses ESRD on hemodialysis N18.6; Z99.2
[2024-09-29] MEDS: atorvastatin 40 mg Tablet 20 MG PO (20:06)
[2024-09-29 20:49] LABS: Glucose Point of Care 227 mg/dL (70-110)
[2024-09-29] MEDS: insulin lispro 100 unit/1 mL SUBCUT (21:29)
[2024-09-29] MEDS: insulin glargine 100 units/1 mL 35 UNIT SUBCUT (21:29)
[2024-09-30] VITALS (10 sets, daily range): BP systolic 93–154; BP diastolic 44–81; PULSE 77–87; RESP 16–20; TEMP 36.2–37.6; O2SAT 97–100
[2024-09-30] MEDS: meropenem 500 mg SDV IVP (00:25)
[2024-09-30] MEDS: sodium chloride 0.9% 1,000 ML 50 ML IV (00:31)
--- NOTE | 2024-09-30 04:00 | ECG_ITS ---
[facility]: 2024-09[facility]30 Pat Name: Meghna Chaudhari Department: Room: 257 Gender: Female Continuous Wave Operator: : 1945 Requested By: Lisa Belcher Order Number: [id number] Reading MD: ANDREW WILDER Measurements Intervals [place] Rate: 91 P: 0 TX: 0 QRS: -12 QRSD: 80 T: -1 QT: 362 QTc: 446 Interpretive Statements ATRIAL FIBRILLATION LOW QRS VOLTAGE IN PRECORDIAL LEADS [QRS DEFLECTION < 1.0 mV IN CHEST LEADS] ABNORMAL RHYTHM ECG Compared to ECG 05/26/2024 21:22:43 Low QRS voltage now present Sinus bradycardia no longer present Incomplete right bundle-branch block no longer present Myocardial infarct finding no longer present Electronically Signed On 10-01-2024 23:06:18 CDT by ANDREW WILDER [email or web address]
[2024-09-30 04:15] LABS: Basophils # 0.1 10^3/uL (0.0-0.1); Basophils % 0.4 %; Eosinophils % 0.1 %; Hematocrit 34.1 % (36-47); Lymphocytes # 1.6 10^3/uL (0.8-4.8); Lymphocytes % 5.9 %; Mean Corpuscular HGB Conc 29.9 g/dL (30-55); Mean Corpuscular Hemoglobin 29.7 pg (27-33); Mean Corpuscular Volume 99.1 fl (85-98); Monocytes % 3.8 %; Neutrophils # 24.08 10^3/uL (1.8-7.7); Neutrophils % 88.9 %; Nucleated Red Blood Cells % 0 %; Platelet Count 223 10^3/cmm (157-399); Red Blood Count 3.44 10^6/uL (3.85-5.65); Red Cell Distribution Width 17.9 % (12.1-15.1); White Blood Count 27.09 10^3/uL (3.29-11.43)
[2024-09-30 04:27] LABS: INR 1.92 (0.8-1.2)
[2024-09-30 04:28] LABS: Partial Thromboplastin Time 42.9 SECONDS (23.9-36.7)
[2024-09-30 04:32] LABS: Vancomycin Trough 15.1 ug/mL (10-15)
[2024-09-30 04:59] LABS: Alanine Aminotransferase < 5 U/L (0-33); Albumin Level 3.2 g/dL (3.5-5.2); Alkaline Phosphatase 118 U/L (35-105); Anion Gap 21.4 (5-19); Aspartate Amino Transferase 27 U/L (0-32); Blood Urea Nitrogen 48 mg/dL (8-23); Calcium 8.4 mg/dL (8.5-10.5); Carbon Dioxide 23 mmol/L (22-29); Chloride 100 mmol/L (98-107); Creatinine Clr Calc Pharmacy 11.2352; Globulin 3.2 g/dL (1.3-4.6); Glucose 53 mg/dL (65-115); Magnesium 1.5 mg/dL (1.7-2.3); Osmolality Calculated 300 mOsm/kg (285-295); Phosphorus 4.5 mg/dL (2.5-4.5); Potassium 4.4 mmol/L (3.5-5.1); Sodium 140 mmol/L (136-145); Total Bilirubin 1.3 mg/dL (0.15-1.2); Total Protein 6.4 g/dL (6.6-8.7)
[2024-09-30] MEDS: metOLazone 5 MG Tablet PO (05:13)
[2024-09-30] MEDS: levothyroxine 150 mcg Tablet PO (05:13)
[2024-09-30 05:40] LABS: Glucose Point of Care 67 mg/dL (70-110)
[2024-09-30 06:15] LABS: Glucose Point of Care 77 mg/dL (70-110)
[2024-09-30 06:34] LABS: Glucose Point of Care 92 mg/dL (70-110)
--- NOTE | 2024-09-30 08:51 | PHA.VACGOAL ---
Vancomycin Goal - Goal Vancomycin Goal:: 15-20 mg/L Vancomycin Indication:: Other - Therapy Day of therpy:: Day []of [] . Actual body weight (kg): 550 lb - Data Labs: WBC 27.09 10^3/uL (3.29-11.43) H 09/30/24 04:10 RBC 3.44 10^6/uL (3.85-5.65) L 09/30/24 04:10 Hgb 10.20 g/dL (11.27-16.99) L 09/30/24 04:10 Hct 34.1 % (36-47) L 09/30/24 04:10 MCV 99.1 fl (85-98) H 09/30/24 04:10 MCH 29.7 pg (27-33) 09/30/24 04:10 MCHC 29.9 g/dL (30-55) L 09/30/24 04:10 RDW 17.9 % (12.1-15.1) H 09/30/24 04:10 Sodium 140 mmol/L (136-145) 09/30/24 04:10 Potassium 4.4 mmol/L (3.5-5.1) 09/30/24 04:10 Chloride 100 mmol/L (98-107) 09/30/24 04:10 Carbon Dioxide 23 mmol/L (22-29) 09/30/24 04:10 Anion Gap 21.4 (5-19) H 09/30/24 04:10 BUN 48 mg/dL (8-23) H 09/30/24 04:10 Creatinine 4.7 mg/dL (0.5-0.9) H 09/30/24 04:10 GFR Calculation Not Reportable 09/30/24 04:10 Treatment plan:: new consult Regimen:: MWF DIALYSIS DIALYSIS BILLIE TODAY GIVE 1000 MG @ 2100
[2024-09-30] MEDS: sertraline 100 mg Tablet PO (09:27)
[2024-09-30] MEDS: carbidopa-levodopa 25-100mg Tablet 2 EACH PO ×3 (09:27→20:16)
[2024-09-30] MEDS: pantoprazole DR 40 mg Tablet PO (09:27)
[2024-09-30] MEDS: FUROsemide 40 mg Tablet PO ×2 (09:28→18:00)
--- NOTE | 2024-09-30 09:41 | PC.CHAP ---
Pastoral Care Encounter/Spiritual Assessment Type of Contact [] Declined camera technician visit [] Patient/Family/Request visit [] Outpatient visit [] Follow-up visit [] Physician referral [] Code/Alert [] Routine visit [] Staff referral [] Actively dying [] Patient sleeping [] Family support [] [x] Out of room [] Palliative care [] [] Receiving care in room [] Pre-surgical visit [] Trauma [] Long length of stay [] ICU visit [] Other: Relational/Emotional Strength [] Patient feels connected with others/family/visitors/staff [] Distress [] Loneliness/isolation [] Abandonment Spirituality of Patient [] Person of Eve [] Attends Scientologist of their Eve [] Believes in Prayer [] Reads Bible or Confucianism materials [] There are Spiritual issues to be addressed Energy Trader Interventions [] Prayer [] Active listening [] Non-anxious presence [] Spiritual/emotional support [] Crisis/trauma care [] Spiritual counseling [] Bereavement support [] Provided bereavement packet [] Provided Bible/devotional materials [] Provided toy/stuffed animal, coloring book to patient or family member [] Provided Communion [] Anointing/Cashiers [] Salvation [] Completed spiritual assessment [] Other: Impact on Illness or Injury [] Angry [] Fearful [] Anxious [] Often cries [] Exhaustion [] Unable to work [] Unable to attend hinduism [] Unable to walk/stand [] Unable to read [] Unable to drive [] Unable to eat/drink [] Unable to sleep [] Unable to be with family [] Patient intubated [] Other: Summary Time spent with patient
[2024-09-30 12:10] LABS: Glucose Point of Care 150 mg/dL (70-110)
[2024-09-30] MEDS: oxyCODONE 5 mg IR Tab/Cap PO (12:21)
[2024-09-30] MEDS: insulin lispro 100 unit/1 mL SUBCUT (12:48)
--- NOTE | 2024-09-30 12:49 | P.PN_ITS ---
Subjective 2 Subjective: Overnight, she was stretched from Zosyn to meropenem. Her blood cultures are concerning for Streptococcus species, and her urine culture is concerning for gram-negative rods. The patient was seen while she was in dialysis today. She was awake, she was communicative, and overall she looked better. The patient herself even acknowledged that she felt better today compared to yesterday or Sunday, when she felt that she became well. She denied any fever, chills, dizziness, lightheadedness, abdominal pain, nausea, vomiting. Patient continues to endorse pain in her right lower extremity. She was disappointed that she would miss chicken noodle soup, which she normally looks forward to, for lunch. Vitals/I&O/Wt Last Vital Signs Temp 97.7 F 09/30/24 12:40 Pulse 80 09/30/24 12:40 Resp 16 09/30/24 12:40 BP 119/64 09/30/24 12:40 Pulse Ox 100 09/30/24 08:00 O2 Del Method Nasal Cannula 09/30/24 10:00 O2 Flow Rate 4 09/30/24 04:00 09/29/24 09/30/24 09/30/24 22:59 06:59 14:59 Intake Total 410 / 890 847.5 / 1737.5 860 / 860 Output Total 850 / 850 550 / 1400 2800 / 2800 Balance -440 / 40 297.5 / 337.5 -1940 / -1940 Weight last 48 hrs Weight 91.8 kg Weight 93.185 kg Weight 249.476 kg Weight 90.917 kg Weight 87.453 kg Weight 87.997 kg Physical Exam 2 Narrative: Constitutional: GENERAL APPEARANCE: cooperative, uncomfortable and appears older than stated age; disheveled, ill appearing and frail appearing HENT: HEAD & SCALP: normocephalic and atraumatic; NOSE: external nose not normal EXTERNAL EAR: no external ears normal MOUTH: Normal oral and palatal mucosa present THROAT: posterior oropharynx normal Eye: PERRL, EOMI, normal conjunctiva b/l Neck: normal visual inspection, trachea midline, No anterior neck swelling, No tracheal deviation, No tracheostomy present, no submandibular swelling, Thyroid normal , cervical ROM normal Lymph: no cervical, supraclavicular LAD Resp: no use of accessory muscles, CTAB, no w/r/r Cardio: RRR, no m/r/g, or clicks. 2+ radial and DP pulses. GI: normoactive bowel sounds, non-tender, non-distended, no guarding, no rigidity, no rebound tenderness, no hepatosplenomegaly. : (-) Puckett in place draining urine, (-) CVA tenderness Back/Pelvis: Deferred Extremity: L. BKA w/ stump intact. R. LE erythema and swelling as well as wound on the medial aspect of the plantar surface. Neuro: AO to person, place and time. CN normal except as noted. Normal gait present. 5/5 motor strength present throughout. Normal motor muscle tone present throughout. No tremor noted. No motor abnormalities present. No motor fasciculations present Psych: APPEARANCE: Yes grossly normal ATTITUDE: Yes calm and Yes engaged ACTIVITY/MOTOR BEHAVIOR: Yes appropriate eye contact SPEECH: Yes normal speech MOOD & AFFECT: Yes euthymic mood THOUGHT PROCESS: Normal thought process present THOUGHT CONTENT: Yes Normal thought content present ATTENTION/CONCENTRATION: Yes attention grossly intact MEMORY/COGNITION: Yes memory grossly intact Urinary Catheter Management: Puckett: Cath Placed During This Visit: yes Reason for Continuing Indwelling Catheter: Other Urinary Catheter Date of Insertion: 09/29/24 Urinary Catheter Time of Insertion: 04:21 Data 09/30/24 04:10 09/30/24 04:10 Micro: Microbiology 09/29/24 01:26 Urine Culture - Preliminary Urine,Clean Catch Gram Negative Rods 09/29/24 01:14 Blood Culture - Preliminary Blood Streptococcus species 09/29/24 00:55 Blood Culture - Preliminary Blood NEGATIVE TO DATE A&P Assessment and plan (1) Diabetes mellitus type 2, insulin dependent: (2) Acute alteration in mental status: (3) Cellulitis of right lower extremity from knee to ankle: (4) Parkinson's Disease: (5) ESRD on hemodialysis: (6) Sepsis: Plan #Severe Sepsis: due to a UTI and R. LE cellulitis Not hypotensive she has markedly elevated white count and fever and heart rate but that in part due to A-fib. Will give 500 cc fluid bolus and place a Puckett. If making urine can give additional fluid boluses otherwise could run into heart failure volume overload due to end-stage renal disease - 6/2 BCx growing strep species. Continue to follow speciation and drug sensitivities - 6/2 UCx. growing GNR. -Repeat blood cultures ordered to be done on 10/01/2024. - Continue Vanc and Meropenem. Monitor vanc levels. Switched from Zosyn to Meropenem on 10/01 # Cellulitis of right lower extremity from knee to ankle: Continue with Meropenem and vancomycin. Monitor fever. Additional Tylenol dose low-dose IV fluids and follow. May need to escalate to Meropenem - US of [place] for DVT. #Complicated UTI - On Zosyn and Vanc. Will consider escalation for Meropenem as well as further imaging in the AM. #Acute alteration in mental status: Improving #Metabolic Encephalopathy in the setting of Parkinson's disease - does she have Parkinson's dementia? - This may be in part due to high dose Sinemet which can raise dopamine to the point of psychosis. Continue decrease Sinemet to 2 tablets 3 times daily of the 25?100 carbidopa levodopa tablets started on admission. # Diabetes mellitus type 2, insulin dependent: Start 1600-calorie ADA diet. Patient on Lantus continue 35 units nightly and sliding scale insulin NovoLog low scale. Will consider decreasing Lantus dosing. # Parkinson's Disease: As above patient agitated and hyperactive will give 1 dose Haldol 5 mg IV x 1 # oliguric ESRD on on MWF HD: -Consulted Nephrology #Paroxysmal Afib - On Telemetry. On apixaban at home. Full dose Lovenox started here. #Hx of PE - On apixaban at home. Full dose Lovenox started here. #Chronic on DVT ppx: Apixaban (d/c'ed). Started Lovenox. PDMP PDMP Reviewed: Not Reviewed Attestations 2 Medical Necessity Statement*: The patient needs to remain hospitalized for greater than 2 midnights for potential bacteremia and UTI severe sepsis and cellulitis. Diagnoses Diabetes mellitus type 2, insulin dependent E11.9; Z79.4 Acute alteration in mental status R41.82 Cellulitis of right lower extremity from knee to ankle L03.115 Parkinson's disease without dyskinesia or fluctuating manifestations G20.A1 Dyskinesia presence: without dyskinesia Fluctuating manifestations: without fluctuating manifestations ESRD on hemodialysis N18.6; Z99.2 Sepsis A41.9
--- NOTE | 2024-09-30 13:00 | P.PN_ITS ---
Subjective 2 Subjective: Patient was seen and examined during hemodialysis. She has no complaints on 3.5L o2. Vitals/I&O/Wt Last Vital Signs Temp 97.7 F 09/30/24 12:40 Pulse 80 09/30/24 12:40 Resp 16 09/30/24 12:40 BP 119/64 09/30/24 12:40 Pulse Ox 100 09/30/24 08:00 O2 Del Method Nasal Cannula 09/30/24 10:00 O2 Flow Rate 4 09/30/24 04:00 09/29/24 09/30/24 09/30/24 22:59 06:59 14:59 Intake Total 410 / 890 847.5 / 1737.5 860 / 860 Output Total 850 / 850 550 / 1400 2800 / 2800 Balance -440 / 40 297.5 / 337.5 -1940 / -1940 Weight last 48 hrs Weight 91.8 kg Weight 93.185 kg Weight 249.476 kg Weight 90.917 kg Weight 87.453 kg Weight 87.997 kg Physical Exam 2 Narrative: GEN: nad, alert, conversant HEAD: normocephalic, atraumatic EYES: eomi, anicteric sclera HEENT: mmm NECK: no jvd CV: RRR LUNGS: ctab ABD: soft, nt , nd EXT: no LE edema NEURO: grossly normal SKIN: no rash Urinary Catheter Management: Puckett: Cath Placed During This Visit: yes Reason for Continuing Indwelling Catheter: Other Urinary Catheter Date of Insertion: 09/29/24 Urinary Catheter Time of Insertion: 04:21 Data 09/30/24 04:10 09/30/24 04:10 Micro: Microbiology 09/29/24 01:26 Urine Culture - Preliminary Urine,Clean Catch Gram Negative Rods 09/29/24 01:14 Blood Culture - Preliminary Blood Streptococcus species 09/29/24 00:55 Blood Culture - Preliminary Blood NEGATIVE TO DATE A&P Assessment and plan (1) ESRD on hemodialysis: Plan 1. ESRD- She is on maintenance HD on MWF schedule. She is tolerating hd today with 2.5L of uf 2. Sepsisi- on abx per the primary service 3. History of hypertension- meds on hold 4. Anemia in ckd- Hemoglobin at goal, PDMP PDMP Reviewed: Not Reviewed Attestations 2 Medical Necessity Statement*: esrd, sepsis Time Spent in Patient Care: 25 minutes Coding Level of Care Code Acute Code for Chg Fwd Diagnoses ESRD on hemodialysis N18.6; Z99.2
[2024-09-30 16:03] LABS: Glucose Point of Care 112 mg/dL (70-110)
[2024-09-30] MEDS: vitamin A & D oint TOPICAL (18:00)
[2024-09-30] MEDS: gabapentin 100 mg Capsule 200 MG PO (18:00)
[2024-09-30] MEDS: sevelamer 800 mg Tablet 1600 MG PO (18:00)
[2024-09-30] MEDS: metoprolol tartrate 50 mg Tablet 100 MG PO (18:00)
[2024-09-30] MEDS: VANCOMYCIN ADD-Vantage 1,000 MG in 0.9% NaCl ADD-Vantage 250 ML 250 MG IV (20:15)
[2024-09-30] MEDS: atorvastatin 40 mg Tablet 20 MG PO (20:16)
[2024-09-30 20:32] LABS: Glucose Point of Care 100 mg/dL (70-110)
[2024-10-01] VITALS (11 sets, daily range): BP systolic 144–160; BP diastolic 55–88; PULSE 68–85; RESP 15–18; TEMP 36.3–37.2; O2SAT 90–100
[2024-10-01 01:28] LABS: Glucose Point of Care 149 mg/dL (70-110)
[2024-10-01] MEDS: oxyCODONE 5 mg IR Tab/Cap PO ×2 (03:35→17:08)
[2024-10-01] MEDS: metOLazone 5 MG Tablet PO (05:05)
[2024-10-01] MEDS: levothyroxine 150 mcg Tablet PO (05:05)
[2024-10-01 05:34] LABS: Basophils # 0.1 10^3/uL (0.0-0.1); Basophils % 0.3 %; Eosinophils # 0.1 10^3/uL (0.0-0.8); Eosinophils % 0.7 %; Lymphocytes # 1.1 10^3/uL (0.8-4.8); Lymphocytes % 5.8 %; Mean Corpuscular HGB Conc 29.7 g/dL (30-55); Mean Corpuscular Hemoglobin 29.8 pg (27-33); Mean Corpuscular Volume 100.3 fl (85-98); Mean Platelet Volume 11.8 fL (7.4-10.4); Monocytes % 5.3 %; Neutrophils # 15.84 10^3/uL (1.8-7.7); Neutrophils % 87.2 %; Nucleated Red Blood Cells % 0 %; Platelet Count 188 10^3/cmm (157-399); Red Blood Count 3.29 10^6/uL (3.85-5.65); Red Cell Distribution Width 17.5 % (12.1-15.1); White Blood Count 18.18 10^3/uL (3.29-11.43)
[2024-10-01 06:00] LABS: Alanine Aminotransferase < 5 U/L (0-33); Albumin Level 2.9 g/dL (3.5-5.2); Alkaline Phosphatase 140 U/L (35-105); Anion Gap 15.1 (5-19); Aspartate Amino Transferase 16 U/L (0-32); Blood Urea Nitrogen 36 mg/dL (8-23); Calcium 8.9 mg/dL (8.5-10.5); Carbon Dioxide 27 mmol/L (22-29); Chloride 98 mmol/L (98-107); Creatinine Clr Calc Pharmacy 16.0787; Globulin 4.2 g/dL (1.3-4.6); Glucose 91 mg/dL (65-115); Magnesium 1.6 mg/dL (1.7-2.3); Osmolality Calculated 290 mOsm/kg (285-295); Phosphorus 3.7 mg/dL (2.5-4.5); Potassium 4.1 mmol/L (3.5-5.1); Sodium 136 mmol/L (136-145); Total Bilirubin 0.8 mg/dL (0.15-1.2); Total Protein 7.1 g/dL (6.6-8.7)
[2024-10-01 06:44] LABS: Glucose Point of Care 88 mg/dL (70-110)
--- NOTE | 2024-10-01 06:51 | P.PN_ITS ---
Subjective 2 Subjective: no new complaints Medications: Reviewed: Yes Vitals/I&O/Wt Last Vital Signs Temp 98.8 F 10/01/24 04:00 Pulse 85 10/01/24 05:44 Resp 17 10/01/24 04:00 BP 157/67 10/01/24 04:00 Pulse Ox 94 10/01/24 04:00 O2 Del Method Room Air 10/01/24 04:00 O2 Flow Rate 4 09/30/24 19:54 09/30/24 09/30/24 10/01/24 14:59 22:59 06:59 Intake Total 1220 / 1220 1490 / 2710 Output Total 3150 / 3150 800 / 3950 200 / 4150 Balance -1930 / -1930 690 / -1240 -200 / -1440 Weight last 48 hrs Weight 90.718 kg Weight 91.8 kg Weight 93.185 kg Weight 249.476 kg Physical Exam 2 Narrative: GEN: nad, alert, conversant HEAD: normocephalic, atraumatic EYES: eomi, anicteric sclera HEENT: mmm NECK: no jvd CV: RRR LUNGS: ctab ABD: soft, nt , nd EXT: no LE edema NEURO: grossly normal SKIN: no rash Urinary Catheter Management: Puckett: Cath Placed During This Visit: yes Reason for Continuing Indwelling Catheter: Other Urinary Catheter Date of Insertion: 09/29/24 Urinary Catheter Time of Insertion: 04:21 Data 10/01/24 04:43 10/01/24 04:43 Micro: Microbiology 10/01/24 05:19 Blood Culture - Preliminary Blood SPECIMEN COLLECTED 10/01/24 05:17 Blood Culture - Preliminary Blood SPECIMEN COLLECTED 09/29/24 01:26 Urine Culture - Preliminary Urine,Clean Catch Gram Negative Rods 09/29/24 01:14 Blood Culture - Preliminary Blood Streptococcus species A&P Assessment and plan (1) ESRD on hemodialysis: Plan 1. ESRD- She is on maintenance HD on MWF schedule. She is tolerating hd today with 2.5L of uf, HD tomorrow 2. Sepsisi- on abx per the primary service 3. History of hypertension- meds on hold 4. Anemia in ckd- Hemoglobin 9.8 , will give CHANDRAKANT Pt evaluated using audiovidual cart. Time spent 40 min PDMP PDMP Reviewed: Not Reviewed Attestations 2 Medical Necessity Statement*: per medicine Coding Level of Care Code Acute Code for Chg Fwd Diagnoses ESRD on hemodialysis N18.6; Z99.2
[2024-10-01] MEDS: sevelamer 800 mg Tablet 1600 MG PO ×3 (07:43→17:06)
[2024-10-01] MEDS: meropenem 500 mg SDV IVP (08:01)
[2024-10-01] MEDS: carbidopa-levodopa 25-100mg Tablet 2 EACH PO ×3 (08:08→21:19)
[2024-10-01] MEDS: sertraline 100 mg Tablet PO (08:08)
[2024-10-01] MEDS: pantoprazole DR 40 mg Tablet PO (08:08)
[2024-10-01] MEDS: metoprolol tartrate 50 mg Tablet 100 MG PO ×2 (08:09→17:07)
[2024-10-01] MEDS: vitamin A & D oint TOPICAL ×2 (08:09→21:21)
[2024-10-01] MEDS: FUROsemide 40 mg Tablet PO ×2 (08:09→17:06)
--- NOTE | 2024-10-01 09:42 | PC.SOCIAL ---
IMM Update Pg 2 of IMM updated. Copy provided at bedside.
--- NOTE | 2024-10-01 10:05 | PC.CHAP ---
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 [] Patient/Family/Request visit [] Outpatient visit [] Follow-up visit [] Physician referral [] Code/Alert [x] Routine visit [] Staff referral [] Actively dying [] Patient sleeping [] Family support [] [] Out of room [] Palliative care [] [] Receiving care in room [] Pre-surgical visit [] Trauma [] Long length of stay [] ICU visit [] Other: Relational/Emotional Strength [x] Patient feels connected with others/family/visitors/staff [] Distress [] Loneliness/isolation [] Abandonment Spirituality of Patient [x] Person of Eve [] Attends Jain of their Eve [x] Believes in Prayer [] Reads Bible or Church materials [] There are Spiritual issues to be addressed Outside Machinist Interventions [x] Prayer [x] Active listening [x] Non-anxious presence [x] Spiritual/emotional support [] Crisis/trauma care [] Spiritual counseling [] Bereavement support [] Provided bereavement packet [] Provided Bible/devotional materials [] Provided toy/stuffed animal, coloring book to patient or family member [] Provided Communion [] Anointing/Warren [] Salvation [x] Completed spiritual assessment [] Other: Impact on Illness or Injury [] Angry [] Fearful [] Anxious [] Often cries [] Exhaustion [] Unable to work [] Unable to attend christianity [] Unable to walk/stand [] Unable to read [] Unable to drive [] Unable to eat/drink [] Unable to sleep [] Unable to be with family [] Patient intubated [] Other: Summary Time spent with patient 5 min
--- NOTE | 2024-10-01 10:16 | P.PN_ITS ---
Subjective 2 Subjective: Complains of feeling tired due to lack of sleep all night. She states that she goes through spells of insomnia. She states that she can go 3-4nights w/o sleep then she crashes, and it has been this way since her 11yrs ago. She denies fever, chills, but complains that she is hot. She runs her house thermostat on 63F. She continues to complain of pain in her R. leg. She denies dizziness, light headedness, syncope, SOB, CP, palpitations, abdominal pain, n/v. She has not had a BM since Sunday Vitals/I&O/Wt Last Vital Signs Temp 98.7 F 10/01/24 07:15 Pulse 68 10/01/24 07:44 Resp 18 10/01/24 07:44 BP 144/55 10/01/24 07:15 Pulse Ox 98 10/01/24 07:44 O2 Del Method Nasal Cannula 10/01/24 07:44 O2 Flow Rate 4 10/01/24 07:44 09/30/24 10/01/24 10/01/24 22:59 06:59 14:59 Intake Total 1490 / 2710 240 / 240 Output Total 800 / 3950 200 / 4150 Balance 690 / -1240 -200 / -1440 240 / 240 Weight last 48 hrs Weight 90.718 kg Weight 91.8 kg Weight 93.185 kg Weight 249.476 kg Physical Exam 2 Narrative: Constitutional: GENERAL APPEARANCE: cooperative, uncomfortable and appears older than stated age; disheveled, ill appearing and frail appearing HENT: HEAD & SCALP: normocephalic and atraumatic; NOSE: external nose not normal EXTERNAL EAR: no external ears normal MOUTH: Normal oral and palatal mucosa present THROAT: posterior oropharynx normal Eye: PERRL, EOMI, normal conjunctiva b/l Neck: normal visual inspection, trachea midline, No anterior neck swelling, No tracheal deviation, No tracheostomy present, no submandibular swelling, Thyroid normal , cervical ROM normal Lymph: no cervical, supraclavicular LAD Resp: no use of accessory muscles, Crackles in the left lower lung lynn (she tends to lie in that direction). No wheezes or rhonchi. Cardio: RRR, no m/r/g, or clicks. 2+ radial and DP pulses. GI: normoactive bowel sounds, non-tender, non-distended, no guarding, no rigidity, no rebound tenderness, no hepatosplenomegaly. : (-) Puckett in place draining urine, Back/Pelvis: Deferred Extremity: L. BKA w/ stump intact. R. LE erythema, warmth, tenderness and swelling from above the ankle to behind the knee. Wound on the medial aspect of the plantar surface. Neuro: AO to person, place and time. CN normal except as noted. Normal gait present. 5/5 motor strength present throughout. Normal motor muscle tone present throughout. No tremor noted. No motor abnormalities present. No motor fasciculations present Psych: APPEARANCE: Yes grossly normal ATTITUDE: Yes calm and Yes engaged ACTIVITY/MOTOR BEHAVIOR: Yes appropriate eye contact SPEECH: Yes normal speech MOOD & AFFECT: Yes euthymic mood THOUGHT PROCESS: Normal thought process present THOUGHT CONTENT: Yes Normal thought content present ATTENTION/CONCENTRATION: Yes attention grossly intact MEMORY/COGNITION: Yes memory grossly intact Urinary Catheter Management: Puckett: Cath Placed During This Visit: yes Reason for Continuing Indwelling Catheter: Other Urinary Catheter Date of Insertion: 09/29/24 Urinary Catheter Time of Insertion: 04:21 Data 10/01/24 04:43 10/01/24 04:43 Micro: Microbiology 10/01/24 05:19 Blood Culture - Preliminary Blood SPECIMEN COLLECTED 10/01/24 05:17 Blood Culture - Preliminary Blood SPECIMEN COLLECTED 09/29/24 01:26 Urine Culture - Preliminary Urine,Clean Catch Gram Negative Rods 09/29/24 01:14 Blood Culture - Preliminary Blood Streptococcus species A&P Assessment and plan (1) Diabetes mellitus type 2, insulin dependent: (2) Acute alteration in mental status: (3) Cellulitis of right lower extremity from knee to ankle: (4) Parkinson's Disease: (5) ESRD on hemodialysis: (6) Sepsis: Plan #Severe Sepsis: due to a UTI and R. LE cellulitis Not hypotensive she has markedly elevated white count and fever and heart rate but that in part due to A-fib. Will give 500 cc fluid bolus and place a Puckett. If making urine can give additional fluid boluses otherwise could run into heart failure volume overload due to end-stage renal disease - 6/2 BCx growing strep species. Continue to follow speciation and drug sensitivities - 6/2 UCx. growing GNR. -Repeat blood cultures ordered to be done on 10/01/2024. - Continue Vanc and Meropenem. Monitor vanc levels. Switched from Zosyn to Meropenem on 10/01 # Cellulitis of right lower extremity from knee to ankle: Continue with Meropenem and vancomycin. Monitor fever. Additional Tylenol dose low-dose IV fluids and follow. - US of Anne VILLALOBOS neg for DVT. - I am marked her cellulitis using a marker on 10/01/2024 #Complicated UTI - Continue Meropenem as well as further imaging in the AM. #Acute alteration in mental status: Improving #Metabolic Encephalopathy in the setting of Parkinson's disease - does she have Parkinson's dementia? - This may be in part due to high dose Sinemet which can raise dopamine to the point of psychosis. Continue decrease Sinemet to 2 tablets 3 times daily of the 25?100 carbidopa levodopa tablets started on admission. # Diabetes mellitus type 2, insulin dependent: Start 1600-calorie ADA diet. Patient on Lantus continue 35 units nightly and sliding scale insulin NovoLog low scale. Will consider decreasing Lantus dosing. # Parkinson's Disease: As above patient agitated and hyperactive will give 1 dose Haldol 5 mg IV x 1 # oliguric ESRD on on MWF HD: -Consulted Nephrology #Paroxysmal Afib - On Telemetry. On apixaban at home. #Hx of PE - On apixaban at home. Full dose Lovenox started here. #Chronic hypoxic respiratory failure on 4L NC #Insomnia: Start scheduled Trazodone. #Anxiety d/o: Resume home Xanax prn #Depression: Resume Prozac #Hypothyroidism: Resumed Levothyroxine #GERD: On PPI DVT ppx: Apixaban (d/c'ed). Started Lovenox. PDMP PDMP Reviewed: Not Reviewed Attestations 2 Medical Necessity Statement*: The patient needs to remain hospitalized for greater than 2 midnights for her severe sepsis due to a UTI and cellulitis. Her blood cultures and urine cultures are pending. Coding Level of Care Code 32339 High Time for a total of 55 minutes, includes reviewing past or interval history, examining/interviewing patient, placing orders, counseling patient/family/other support, updating patient/family/other support, discussing plan of care with staff, communicating with other healthcare providers, documenting encounter and coordinating care Diagnoses Diabetes mellitus type 2, insulin dependent E11.9; Z79.4 Acute alteration in mental status R41.82 Cellulitis of right lower extremity from knee to ankle L03.115 Parkinson's disease without dyskinesia or fluctuating manifestations G20.A1 Dyskinesia presence: without dyskinesia Fluctuating manifestations: without fluctuating manifestations ESRD on hemodialysis N18.6; Z99.2 Sepsis A41.9
[2024-10-01 10:56] LABS: Glucose Point of Care 139 mg/dL (70-110)
[2024-10-01] MEDS: apixaban 5 mg Tablet PO ×2 (11:09→17:06)
[2024-10-01] MEDS: sennosides 8.6 mg Tablet 17.2 MG PO (12:19)
[2024-10-01] MEDS: polyethylene glycol 3350 Pkt 17 gm PO (12:19)
[2024-10-01 16:51] LABS: Glucose Point of Care 137 mg/dL (70-110)
[2024-10-01] MEDS: gabapentin 100 mg Capsule 200 MG PO (17:06)
[2024-10-01 20:21] LABS: Glucose Point of Care 218 mg/dL (70-110)
[2024-10-01] MEDS: LUMIGAN 1 EACH EYE-BOTH (21:17)
[2024-10-01] MEDS: atorvastatin 40 mg Tablet 20 MG PO (21:19)
[2024-10-01] MEDS: ALPRAZolam 0.5 mg Tablet PO (21:19)
[2024-10-01] MEDS: insulin lispro 100 unit/1 mL SUBCUT (21:20)
[2024-10-01] MEDS: insulin glargine 100 units/1 mL 25 UNIT SUBCUT (21:21)
[2024-10-02] VITALS (15 sets, daily range): BP systolic 106–158; BP diastolic 55–116; PULSE 69–101; RESP 16–20; TEMP 36.5–36.8; O2SAT 92–99
[2024-10-02 02:21] LABS: Glucose Point of Care 71 mg/dL (70-110)
[2024-10-02] MEDS: levothyroxine 150 mcg Tablet PO (05:53)
[2024-10-02] MEDS: metOLazone 5 MG Tablet PO (05:53)
[2024-10-02 06:13] LABS: Glucose Point of Care 111 mg/dL (70-110)
[2024-10-02 06:42] LABS: Basophils # 0.1 10^3/uL (0.0-0.1); Basophils % 0.3 %; Eosinophils # 0.1 10^3/uL (0.0-0.8); Eosinophils % 0.5 %; Hematocrit 34.4 % (36-47); Lymphocytes % 6.8 %; Mean Corpuscular HGB Conc 29.9 g/dL (30-55); Mean Corpuscular Hemoglobin 29.9 pg (27-33); Mean Corpuscular Volume 99.7 fl (85-98); Mean Platelet Volume 11.4 fL (7.4-10.4); Monocytes # 0.7 10^3/uL (0.2-0.9); Monocytes % 4.5 %; Neutrophils # 12.48 10^3/uL (1.8-7.7); Neutrophils % 86.9 %; Nucleated Red Blood Cells % 0 %; Platelet Count 231 10^3/cmm (157-399); Red Blood Count 3.45 10^6/uL (3.85-5.65); Red Cell Distribution Width 17.2 % (12.1-15.1); White Blood Count 14.37 10^3/uL (3.29-11.43)
--- NOTE | 2024-10-02 07:00 | CT_ITS ---
WS: [id number] CT ABDOMEN PELVIS TECHNIQUE: Noncontrast CT of the abdomen and pelvis with coronal and sagittal reformatted images. CLINICAL INFORMATION: complicated UTI COMPARISON: 2023 DLP: 842.[address] scans at [facility] use at least one of these dose optimization techniques: automated exposure control; mA and/or kV adjustment per patient size (includes targeted exams where dose is matched to clinical indication); or iterative reconstruction. FINDINGS: Cardiomegaly. Lung bases are well aerated. Hepatomegaly. Splenomegaly. Splenic artery calcification. Low-attenuation lesions in the spleen most likely cysts or hemangiomas similar to the prior studies. Adrenal glands are normal. Fatty atrophy of the pancreas. Small esophageal hiatal hernia. Few shotty periaortic and retroperitoneal lymph nodes. Few prominent lymph nodes along the RIGHT iliac chain and pelvic sidewall similar to the prior studies are nonspecific but may be reactive. Adrenal glands are normal. Bilateral renal atrophy. Tiny nonobstructing calyceal tip calculi. Dense vascular calcification. Puckett catheter. Sigmoid diverticulosis. No evidence of acute diverticulitis. Mild transverse colon constipation. Incidental fat-containing inguinal hernias. Partially visualized spinal stimulator. Prior postoperative changes lumbar spine with pedicle screw fixation and laminectomy defects. CT/CT abdomen pelvis wo con [id number] IMPRESSION: 1. Puckett catheter. Bladder is decompressed. 2. Bilateral renal atrophy. No hydronephrosis. 3. Hepatomegaly and splenomegaly similar to previous. 4. Prominent RIGHT iliac chain, pelvic sidewall and RIGHT femoral lymph nodes nonspecific but may be reactive. These are similar to 202 with mild progressio n 5. Small esophageal hiatal hernia. 6. No other acute findings.
[2024-10-02 07:03] LABS: Alanine Aminotransferase < 5 U/L (0-33); Albumin Level 2.9 g/dL (3.5-5.2); Alkaline Phosphatase 133 U/L (35-105); Anion Gap 18.5 (5-19); Aspartate Amino Transferase 13 U/L (0-32); Blood Urea Nitrogen 48 mg/dL (8-23); Carbon Dioxide 27 mmol/L (22-29); Chloride 100 mmol/L (98-107); Creatinine Clr Calc Pharmacy 12.2367; Globulin 4.1 g/dL (1.3-4.6); Glucose 105 mg/dL (65-115); Magnesium 1.7 mg/dL (1.7-2.3); Osmolality Calculated 305 mOsm/kg (285-295); Phosphorus 5.2 mg/dL (2.5-4.5); Potassium 4.5 mmol/L (3.5-5.1); Sodium 141 mmol/L (136-145); Total Bilirubin 0.6 mg/dL (0.15-1.2)
--- NOTE | 2024-10-02 07:59 | P.PN_ITS ---
Subjective 2 Subjective: no new c/o Medications: Reviewed: Yes Vitals/I&O/Wt Last Vital Signs Temp 98.2 F 10/02/24 07:20 Pulse 73 10/02/24 07:20 Resp 17 10/02/24 07:20 BP 139/64 10/02/24 07:20 Pulse Ox 95 10/02/24 07:20 O2 Del Method Nasal Cannula 10/02/24 07:20 O2 Flow Rate 4 10/02/24 07:20 10/01/24 10/02/24 10/02/24 22:59 06:59 14:59 Intake Total 240 / 720 Output Total 300 / 300 300 / 600 Balance -60 / 420 -300 / 120 Weight last 48 hrs Weight 90.265 kg Weight 90.718 kg Weight 91.8 kg Weight 93.185 kg Physical Exam 2 Narrative: GEN: nad, alert, conversant HEAD: normocephalic, atraumatic EYES: eomi, anicteric sclera HEENT: mmm NECK: no jvd CV: RRR LUNGS: ctab ABD: soft, nt , nd EXT: no LE edema NEURO: grossly normal SKIN: no rash Urinary Catheter Management: Puckett: Cath Placed During This Visit: yes Reason for Continuing Indwelling Catheter: Other Urinary Catheter Date of Insertion: 09/29/24 Urinary Catheter Time of Insertion: 04:21 Data 10/02/24 06:03 10/02/24 06:03 Micro: Microbiology 10/01/24 05:19 Blood Culture - Preliminary Blood NEGATIVE TO DATE 10/01/24 05:17 Blood Culture - Preliminary Blood NEGATIVE TO DATE 09/29/24 01:26 Urine Culture - Final Urine,Clean Catch Escherichia coli esbl A&P Assessment and plan (1) ESRD on hemodialysis: Plan 1. ESRD- She is on maintenance HD on MWF schedule. She is tolerating hd today with 2.5L of uf, HD today 2. Sepsis- on abx per the primary service 3. History of hypertension- meds on hold 4. Anemia in ckd- Hemoglobin 9.8 , will give CHANDRAKANT Pt evaluated using audiovidual cart. Time spent 40 min PDMP PDMP Reviewed: Not Reviewed Attestations 2 Medical Necessity Statement*: per medicine Coding Level of Care Code Acute Code for [facility] Fwd Diagnoses ESRD on hemodialysis N18.6; Z99.2
[2024-10-02] MEDS: meropenem 500 mg SDV IVP (08:58)
[2024-10-02] MEDS: heparin, porcine 1,000 unit/mL INJ 10 mL 1000 UNIT IV (09:30)
[2024-10-02] MEDS: oxyCODONE 5 mg IR Tab/Cap PO ×3 (09:55→23:30)
[2024-10-02 10:16] LABS: Vancomycin Random 18.1 ug/mL (20.0-40.0)
[2024-10-02 11:17] LABS: Glucose Point of Care 98 mg/dL (70-110)
--- NOTE | 2024-10-02 11:26 | P.PN_ITS ---
Subjective 2 Subjective: No acute events overnight. Patient seen at the bedside continues to report right leg pain, with some improvement. She has no other new complaints. Medications: Reviewed: Yes Vitals/I&O/Wt Last Vital Signs Temp 98.2 F 10/02/24 07:20 Pulse 76 10/02/24 09:14 Resp 17 10/02/24 09:55 BP 139/64 10/02/24 07:20 Pulse Ox 96 10/02/24 09:16 O2 Del Method Nasal Cannula 10/02/24 09:16 O2 Flow Rate 3 10/02/24 09:16 10/01/24 10/02/24 10/02/24 22:59 06:59 14:59 Intake Total 240 / 720 Output Total 300 / 300 300 / 600 Balance -60 / 420 -300 / 120 Weight last 48 hrs Weight 90.265 kg Weight 90.718 kg Weight 91.8 kg Physical Exam 2 Narrative: General -Awake, alert, no acute distress HEENT-normocephalic, atraumatic, neck is supple Lungs-clear to auscultation bilaterally, no wheezes or crackles CVS -S1-S2, regular rate and rhythm Abdomen -soft, nontender, normal bowel sounds Extremities-left BKA, right lower extremity erythema-regressing has healed from area marked Neurology -no gross focal deficits Urinary Catheter Management: Puckett: Cath Placed During This Visit: yes Reason for Continuing Indwelling Catheter: Other Urinary Catheter Date of Insertion: 09/29/24 Urinary Catheter Time of Insertion: 04:21 Data 10/02/24 06:03 10/02/24 06:03 Micro: Microbiology 10/01/24 05:19 Blood Culture - Preliminary Blood NEGATIVE TO DATE 10/01/24 05:17 Blood Culture - Preliminary Blood NEGATIVE TO DATE 09/29/24 01:26 Urine Culture - Final Urine,Clean Catch Escherichia coli esbl A&P Assessment and plan (1) Diabetes mellitus type 2, insulin dependent: (2) Acute alteration in mental status: (3) Cellulitis of right lower extremity from knee to ankle: (4) Parkinson's Disease: (5) ESRD on hemodialysis: (6) Sepsis: Plan # Severe sepsis - In the setting of UTI, right lower extremity cellulitis - Signs of sepsis improving - Continue IV antibiotics - Continue other supportive care # Acute complicated UTI - Urine cultures growing ESBL E. coli - Patient is on meropenem - She will need to complete 7-day course # Right lower extremity cellulitis - Patient continues to have erythema, tenderness in the right lower extremity, you have cellulitis regressing from marked area - Continue IV antibiotics-meropenem, vancomycin - DVT ultrasound is negative # Acute metabolic encephalopathy - In the setting of acute infectious process - Patient's mental status is improved # History of Parkinson's disease - Continue chronic medications # Paroxysmal atrial fibrillation - Continue apixaban, rate controlled medications # History of PE - Patient on apixaban chronically, on Lovenox. # Chronic hypoxic respiratory failure - Continue supplemental oxygen # ESRD on hemodialysis - Nephrology following for dialysis needs PDMP PDMP Reviewed: Not Reviewed Attestations 2 Medical Necessity Statement*: Patient continues to require inpatient care for cellulitis, UTI requiring IV antibiotics Coding Level of Care Code Acute Code for [facility] [place] Diagnoses Diabetes mellitus type 2, insulin dependent E11.9; Z79.4 Acute alteration in mental status R41.82 Cellulitis of right lower extremity from knee to ankle L03.115 Parkinson's disease without dyskinesia or fluctuating manifestations G20.A1 Dyskinesia presence: without dyskinesia Fluctuating manifestations: without fluctuating manifestations ESRD on hemodialysis N18.6; Z99.2 Sepsis A41.9
[2024-10-02] MEDS: fluticasone nasal spray 16gm Btl 1 SPRAY INTRANASAL ×2 (13:04→17:12)
[2024-10-02] MEDS: sevelamer 800 mg Tablet 1600 MG PO ×2 (13:05→17:11)
[2024-10-02] MEDS: sertraline 100 mg Tablet PO (13:06)
[2024-10-02] MEDS: polyethylene glycol 3350 Pkt 17 gm PO (13:06)
[2024-10-02] MEDS: sennosides 8.6 mg Tablet 17.2 MG PO (13:06)
[2024-10-02] MEDS: pantoprazole DR 40 mg Tablet PO (13:06)
[2024-10-02] MEDS: diphenhydrAMINE 25 mg Capsule PO (14:00)
[2024-10-02] MEDS: vitamin A & D oint TOPICAL ×2 (14:05→20:45)
[2024-10-02] MEDS: carbidopa-levodopa 25-100mg Tablet 2 EACH PO ×2 (14:26→20:44)
[2024-10-02 16:17] LABS: Glucose Point of Care 140 mg/dL (70-110)
[2024-10-02] MEDS: apixaban 5 mg Tablet PO (17:11)
[2024-10-02] MEDS: metoprolol tartrate 50 mg Tablet 100 MG PO (17:11)
[2024-10-02] MEDS: gabapentin 100 mg Capsule 200 MG PO (17:11)
[2024-10-02] MEDS: FUROsemide 40 mg Tablet PO (17:11)
[2024-10-02] MEDS: VANCOMYCIN ADD-Vantage 1,000 MG in 0.9% NaCl ADD-Vantage 250 ML 250 MG IV (20:43)
[2024-10-02] MEDS: trazodone 100 mg Tablet PO (20:44)
[2024-10-02] MEDS: insulin glargine 100 units/1 mL 25 UNIT SUBCUT (20:44)
[2024-10-02] MEDS: atorvastatin 40 mg Tablet 20 MG PO (20:44)
[2024-10-02 20:45] LABS: Glucose Point of Care 123 mg/dL (70-110)
[2024-10-02] MEDS: LUMIGAN 1 EACH EYE-BOTH (20:45)
[2024-10-03] VITALS (10 sets, daily range): BP systolic 125–143; BP diastolic 61–79; PULSE 52–90; RESP 16–19; TEMP 36.4–36.8; O2SAT 94–98
[2024-10-03] MEDS: tizanidine 4 mg Tablet PO (00:04)
[2024-10-03] MEDS: ALPRAZolam 0.5 mg Tablet PO (00:43)
[2024-10-03 05:21] LABS: Basophils # 0.1 10^3/uL (0.0-0.1); Basophils % 0.8 %; Eosinophils # 0.2 10^3/uL (0.0-0.8); Eosinophils % 2.4 %; Hematocrit 32.8 % (36-47); Lymphocytes # 1.9 10^3/uL (0.8-4.8); Lymphocytes % 21.2 %; Mean Corpuscular HGB Conc 29.9 g/dL (30-55); Mean Corpuscular Hemoglobin 29.9 pg (27-33); Mean Platelet Volume 11.1 fL (7.4-10.4); Monocytes # 0.6 10^3/uL (0.2-0.9); Monocytes % 6.2 %; Neutrophils # 6.28 10^3/uL (1.8-7.7); Neutrophils % 68.4 %; Nucleated Red Blood Cells % 0 %; Platelet Count 264 10^3/cmm (157-399); Red Blood Count 3.28 10^6/uL (3.85-5.65); White Blood Count 9.17 10^3/uL (3.29-11.43)
[2024-10-03] MEDS: metOLazone 5 MG Tablet PO (05:24)
[2024-10-03] MEDS: levothyroxine 150 mcg Tablet PO (05:25)
--- NOTE | 2024-10-03 05:32 | P.PN_ITS ---
Subjective 2 Subjective: s/p HD yesterday Medications: Reviewed: Yes Vitals/I&O/Wt Last Vital Signs Temp 97.8 F 10/03/24 03:23 Pulse 82 10/03/24 03:23 Resp 16 10/03/24 03:23 BP 128/68 10/03/24 03:23 Pulse Ox 98 10/03/24 03:23 O2 Del Method Nasal Cannula 10/03/24 03:23 O2 Flow Rate 2.5 10/03/24 03:23 10/02/24 10/02/24 10/03/24 14:59 22:59 06:59 Intake Total 1110 / 1110 440 / 1550 Output Total 2971 / 2971 Balance -1861 / -1861 440 / -1421 Weight last 48 hrs Weight 89.675 kg Weight 90 kg Weight 90.265 kg Weight 90.718 kg Physical Exam 2 Narrative: GEN: nad, alert, conversant HEAD: normocephalic, atraumatic EYES: eomi, anicteric sclera HEENT: mmm NECK: no jvd CV: RRR LUNGS: ctab ABD: soft, nt , nd EXT: no LE edema NEURO: grossly normal SKIN: no rash Urinary Catheter Management: Puckett: Cath Placed During This Visit: yes Reason for Continuing Indwelling Catheter: Other Urinary Catheter Date of Insertion: 09/29/24 Urinary Catheter Time of Insertion: 04:21 Data 10/03/24 04:54 10/03/24 04:54 Micro: Microbiology 10/01/24 05:19 Blood Culture - Preliminary Blood NEGATIVE TO DATE 10/01/24 05:17 Blood Culture - Preliminary Blood NEGATIVE TO DATE A&P Assessment and plan (1) ESRD on hemodialysis: Plan 1. ESRD- She is on maintenance HD on MWF schedule. HD done yesterday 2. Sepsis- sec to UTI and Cellulitis, on abx per the primary service 3. History of hypertension- meds on hold 4. Anemia in ckd- Hemoglobin 9.8 , will give CHANDRAKANT Pt evaluated using audiovidual cart. Time spent 40 min PDMP PDMP Reviewed: Not Reviewed Attestations 2 Medical Necessity Statement*: per stan Coding Level of Care Code Acute Code for [facility] Fwd Diagnoses ESRD on hemodialysis N18.6; Z99.2
[2024-10-03 05:43] LABS: Anion Gap 12.7 (5-19); Blood Urea Nitrogen 33 mg/dL (8-23); Calcium 8.6 mg/dL (8.5-10.5); Carbon Dioxide 33 mmol/L (22-29); Chloride 100 mmol/L (98-107); Creatinine Clr Calc Pharmacy 15.8932; Glucose 72 mg/dL (65-115); Phosphorus 3.7 mg/dL (2.5-4.5); Potassium 3.7 mmol/L (3.5-5.1); Sodium 142 mmol/L (136-145)
--- NOTE | 2024-10-03 06:16 | PC.NURSE ---
bladder scan showed 161 ml
[2024-10-03 06:34] LABS: Glucose Point of Care 71 mg/dL (70-110)
[2024-10-03 07:03] LABS: Glucose Point of Care 106 mg/dL (70-110)
[2024-10-03] MEDS: carbidopa-levodopa 25-100mg Tablet 2 EACH PO ×3 (08:46→20:43)
[2024-10-03] MEDS: FUROsemide 40 mg Tablet PO ×2 (08:46→17:02)
[2024-10-03] MEDS: fluticasone nasal spray 16gm Btl 1 SPRAY INTRANASAL ×2 (08:47→17:02)
[2024-10-03] MEDS: pantoprazole DR 40 mg Tablet PO (08:47)
[2024-10-03] MEDS: apixaban 5 mg Tablet PO ×2 (08:47→17:02)
[2024-10-03] MEDS: meropenem 500 mg SDV IVP (08:47)
[2024-10-03] MEDS: sertraline 100 mg Tablet PO (08:47)
[2024-10-03] MEDS: metoprolol tartrate 50 mg Tablet 100 MG PO ×2 (08:47→17:02)
[2024-10-03] MEDS: sevelamer 800 mg Tablet 1600 MG PO ×3 (08:49→17:02)
[2024-10-03] MEDS: vitamin A & D oint TOPICAL ×2 (08:49→20:46)
[2024-10-03] MEDS: oxyCODONE 5 mg IR Tab/Cap PO (10:33)
[2024-10-03 11:43] LABS: Glucose Point of Care 94 mg/dL (70-110)
--- NOTE | 2024-10-03 13:28 | PC.SOCIAL ---
IMM updated IMM dated and initialed, copy given to patient and placed in chart
--- NOTE | 2024-10-03 14:05 | PM.PN ---
Subjective Subjective: No acute events overnight. Patient seen at the bedside and has no new complaints . She still has some pain at area of cellulitis, but improving. Medications: Reviewed: Yes Vitals/I&O/Wt Last Vital Signs Temp 97.7 F 10/03/24 13:05 Pulse 62 10/03/24 13:05 Resp 18 10/03/24 13:05 BP 128/74 10/03/24 13:05 Pulse Ox 94 10/03/24 13:05 O2 Del Method Nasal Cannula 10/03/24 09:29 O2 Flow Rate 3 10/03/24 09:29 10/02/24 10/03/24 10/03/24 22:59 06:59 14:59 Intake Total 1110 / 1110 440 / 1550 480 / 480 Output Total 2971 / 2971 Balance -1861 / -1861 440 / -1421 480 / 480 Weight last 48 hrs Weight 89.675 kg Weight 90 kg Weight 90.265 kg Physical Exam Narrative: General -Awake, alert, no acute distress HEENT-normocephalic, atraumatic, neck is supple Lungs-clear to auscultation bilaterally, no wheezes or crackles CVS -S1-S2, regular rate and rhythm Abdomen -soft, nontender, normal bowel sounds Extremities-left BKA, right lower extremity -regressing from area marked Neurology -no gross focal deficits Urinary Catheter Management: Puckett: Cath Placed During This Visit: yes Reason for Continuing Indwelling Catheter: Other Urinary Catheter Date of Insertion: 09/29/24 Urinary Catheter Time of Insertion: 04:21 Data 10/03/24 04:54 10/03/24 04:54 Micro: Microbiology 09/29/24 01:14 Blood Culture - Final Blood Streptococcus mitis oralis A&P Assessment and plan (1) Diabetes mellitus type 2, insulin dependent: (2) Acute alteration in mental status: (3) Cellulitis of right lower extremity from knee to ankle: (4) Parkinson's Disease: (5) ESRD on hemodialysis: (6) Sepsis: Plan # Severe sepsis - In the setting of UTI, right lower extremity cellulitis - Signs of sepsis improving - Continue IV antibiotics - Continue other supportive care # Acute complicated UTI - Urine cultures growing ESBL E. coli - Patient is on meropenem - She will need to complete 7-day course # Right lower extremity cellulitis - Patient continues to have erythema, tenderness in the right lower extremity, area of cellulitis regressing from marked area - Continue IV antibiotics-meropenem, vancomycin - DVT ultrasound is negative # Acute metabolic encephalopathy - In the setting of acute infectious process - Patient's mental status is improved # History of Parkinson's disease - Continue chronic medications # Paroxysmal atrial fibrillation - Continue apixaban, rate controlled medications # History of PE - Patient on apixaban chronically, on Lovenox. # Chronic hypoxic respiratory failure - Continue supplemental oxygen # ESRD on hemodialysis - Nephrology following for dialysis needs PDMP PDMP Reviewed: Not Reviewed Attestations Medical Necessity Statement*: Patient continues to require inpatient care for cellulitis, UTI requiring IV antibiotics Coding Level of Care Code Acute Code for [facility] Diagnoses Diabetes mellitus type 2, insulin dependent E11.9; Z79.4 Acute alteration in mental status R41.82 Cellulitis of right lower extremity from knee to ankle L03.115 Parkinson's disease without dyskinesia or fluctuating manifestations G20.A1 Dyskinesia presence: without dyskinesia Fluctuating manifestations: without fluctuating manifestations ESRD on hemodialysis N18.6; Z99.2 Sepsis A41.9
[2024-10-03 16:54] LABS: Glucose Point of Care 91 mg/dL (70-110)
[2024-10-03] MEDS: gabapentin 100 mg Capsule 200 MG PO (17:02)
[2024-10-03 20:27] LABS: Glucose Point of Care 169 mg/dL (70-110)
[2024-10-03] MEDS: insulin glargine 100 units/1 mL 25 UNIT SUBCUT (20:42)
[2024-10-03] MEDS: LUMIGAN 1 EACH EYE-BOTH (20:43)
[2024-10-03] MEDS: trazodone 100 mg Tablet PO (20:43)
[2024-10-03] MEDS: atorvastatin 40 mg Tablet 20 MG PO (20:45)
[2024-10-04] VITALS (10 sets, daily range): BP systolic 121–165; BP diastolic 62–91; PULSE 52–76; RESP 13–18; TEMP 36.4–37.1; O2SAT 93–99
[2024-10-04] MEDS: levothyroxine 150 mcg Tablet PO (05:00)
[2024-10-04] MEDS: metOLazone 5 MG Tablet PO (05:00)
[2024-10-04 05:53] LABS: Hematocrit 33.3 % (36-47); Mean Corpuscular HGB Conc 30.9 g/dL (30-55); Mean Corpuscular Hemoglobin 29.9 pg (27-33); Mean Corpuscular Volume 96.8 fl (85-98); Mean Platelet Volume 10.9 fL (7.4-10.4); Platelet Count 265 10^3/cmm (157-399); Red Blood Count 3.44 10^6/uL (3.85-5.65); Red Cell Distribution Width 16.7 % (12.1-15.1); White Blood Count 9.32 10^3/uL (3.29-11.43)
[2024-10-04 05:58] LABS: Absolute Eosinophils 0.1 10^3/cmm (0.0-0.7); Absolute Segmented Neutrophil 6.3 10/cmm (1.6-7.1); Eosinophils 1 %; Lymphocytes 27 %; Monocytes Absolute 0.3 10^3/cmm (0.1-0.6); Segmented Neutrophils 68 %; Total Cells Counted 100 (0-100)
[2024-10-04 05:59] LABS: Absolute Neutrophil 6.3 10^3/cmm (1.4-6.5); Lymphocytes Absolute 2.5 10^3/cmm (1.2-3.4); Platelet Estimate Normal (Normal)
[2024-10-04 06:28] LABS: Albumin Level 2.8 g/dL (3.5-5.2); Anion Gap 15.9 (5-19); Blood Urea Nitrogen 43 mg/dL (8-23); Carbon Dioxide 29 mmol/L (22-29); Chloride 100 mmol/L (98-107); Creatinine Clr Calc Pharmacy 13.4481; Glucose 73 mg/dL (65-115); Phosphorus 4.9 mg/dL (2.5-4.5); Potassium 3.9 mmol/L (3.5-5.1); Sodium 141 mmol/L (136-145)
[2024-10-04 06:50] LABS: Glucose Point of Care 79 mg/dL (70-110)
[2024-10-04] MEDS: FUROsemide 40 mg Tablet PO ×2 (08:43→18:29)
[2024-10-04] MEDS: carbidopa-levodopa 25-100mg Tablet 2 EACH PO ×3 (08:43→23:00)
[2024-10-04] MEDS: tizanidine 4 mg Tablet PO ×2 (08:44→18:29)
[2024-10-04] MEDS: pantoprazole DR 40 mg Tablet PO (08:44)
[2024-10-04] MEDS: metoprolol tartrate 50 mg Tablet 100 MG PO ×2 (08:44→18:30)
[2024-10-04] MEDS: apixaban 5 mg Tablet PO ×2 (08:44→18:30)
[2024-10-04] MEDS: sertraline 100 mg Tablet PO (08:44)
[2024-10-04] MEDS: sevelamer 800 mg Tablet 1600 MG PO ×2 (08:44→18:30)
[2024-10-04] MEDS: fluticasone nasal spray 16gm Btl 1 SPRAY INTRANASAL ×2 (08:45→18:30)
--- NOTE | 2024-10-04 09:18 | P.PN_ITS ---
Subjective 2 Subjective: plan for HD today Medications: Reviewed: Yes Vitals/I&O/Wt Last Vital Signs Temp 97.8 F 10/05/24 08:00 Pulse 59 L 10/05/24 08:00 Resp 18 10/05/24 08:00 BP 113/65 10/05/24 08:00 Pulse Ox 99 10/05/24 08:00 O2 Del Method Nasal Cannula 10/05/24 08:00 O2 Flow Rate 2 10/04/24 15:54 10/04/24 10/05/24 10/05/24 22:59 06:59 14:59 Intake Total 620 / 620 690 / 1310 240 / 240 Output Total 1859 / 1859 Balance -1239 / -1239 690 / -549 240 / 240 Weight last 48 hrs Weight 89.2 kg Weight 91.682 kg Physical Exam 2 Narrative: GEN: nad, alert, conversant HEAD: normocephalic, atraumatic EYES: eomi, anicteric sclera HEENT: mmm NECK: no jvd CV: RRR LUNGS: ctab ABD: soft, nt , nd EXT: no LE edema NEURO: grossly normal SKIN: no rash Urinary Catheter Management: Puckett: Cath Placed During This Visit: yes Reason for Continuing Indwelling Catheter: Other Urinary Catheter Date of Insertion: 09/29/24 Urinary Catheter Time of Insertion: 04:21 Data 10/05/24 04:57 10/05/24 04:57 Micro: Microbiology 09/29/24 01:14 Blood Culture - Final Blood Streptococcus mitis oralis A&P Assessment and plan (1) ESRD on hemodialysis: Plan 1. ESRD- She is on maintenance HD on MWF schedule. HD sunday , next hD sunday 2. Sepsis- sec to UTI and Cellulitis, on abx per the primary service 3. History of hypertension- meds on hold 4. Anemia in ckd- Hemoglobin 9.8 , will give CHANDRAKANT Pt evaluated using audiovidual cart. Time spent 40 min PDMP PDMP Reviewed: Not Reviewed Attestations 2 Medical Necessity Statement*: per medicine Coding Level of Care Code Acute Code for [facility] Fwd Diagnoses ESRD on hemodialysis N18.6; Z99.2
[2024-10-04] MEDS: vitamin A & D oint TOPICAL (10:21)
[2024-10-04] MEDS: meropenem 500 mg SDV IVP (11:13)
[2024-10-04 11:17] LABS: Glucose Point of Care 92 mg/dL (70-110)
--- NOTE | 2024-10-04 14:34 | P.DS_ITS ---
Discharge Providers Date of Admission: 09/29/24 03:01 Date of Discharge: October 04, 2024 Attending Provider at Admission: Philip Foster MD Attending Provider at Discharge: Stan Damon MD Primary Care Provider: Brandi Escalera MD Diagnoses at Discharge Discharge Diagnosis (1) Diabetes mellitus type 2, insulin dependent: Status: Acute (2) Acute alteration in mental status: Status: Acute (3) Cellulitis of right lower extremity from knee to ankle: Status: Acute (4) Parkinson's Disease: Status: Acute Qualifiers: Dyskinesia presence: without dyskinesia Fluctuating manifestations: without fluctuating manifestations Qualified Code(s): G20.A1 - Parkinson's disease without dyskinesia, without mention of fluctuations (5) ESRD on hemodialysis: Status: Acute (6) Sepsis: Status: Acute Reason for Visit Reason for Visit: RIGHT LEG PAIN Hospital Course Hospital Course In summary , Ms Meghna Chaudhari is a 79 year old female is a resident at [facility]pc who presented for further evaluation of fever, left leg redness and pain. Patient found toxic signs of sepsis with left leg cellulitis and was admitted for further evaluation and management. Patient symptoms in the setting of left leg cellulitis and a UTI. She received IV fluids, IV antibiotics. Urine cultures grew ESBL E. coli and antibiotics eventually switched to meropenem . Blood cultures grew strep species, unclear if contaminant. Repeat cultures - negative. She also received vancomycin . She had improvement in her symptoms. She was followed by nephrology for her dialysis needs. She will complete course of IV ertapenem in the [facility]. She will also be discharged on doxycycline to complete course for cellulitis. She will follow with her PCP outpatient and also continue routine hemodialysis. Physical Exam Urinary Catheter Management: Puckett: Cath Placed During This Visit: yes Reason for Continuing Indwelling Catheter: Other Urinary Catheter Date of Insertion: 09/29/24 Urinary Catheter Time of Insertion: 04:21 Discharge Data Studies Completed and Pending Completed Studies During Hospitalization Category Date Time Status CT abdomen pelvis wo con [id number] Routine Cat Scan 10/02/24 07:00 Completed XR chest 1V portable [id number] Stat Exams 09/29/24 00:35 Completed XR foot RT min 3V* [id number] Stat Exams 09/29/24 00:39 Completed US venous duplex lower extremity RT [CV venous duplex Ultrasound 09/29/24 00:[place] [id number]] Stat Pending at discharge Category Date Time Status Blood Culture Routine Lab 10/01/24 05:19 Results Radiology Impressions Chest X-Ray 09/29/24 00:35 IMPRESSION: No acute cardiopulmonary findings. Venous Duplex 09/29/24 00:35 IMPRESSION: No evidence of deep vein thrombosis. Foot X-Ray 09/29/24 00:39 IMPRESSION: Degenerative changes of the midfoot, likely reflecting Charcot arthropathy, stable to slightly worsened compared to 09/11/2021. Abdomen/Pelvis CT 10/02/24 07:00 IMPRESSION: 1. Puckett catheter. Bladder is decompressed. 2. Bilateral renal atrophy. No hydronephrosis. 3. Hepatomegaly and splenomegaly similar to previous. 4. Prominent RIGHT iliac chain, pelvic sidewall and RIGHT femoral lymph nodes nonspecific but may be reactive. These are similar to 2023 with mild progression 5. Small esophageal hiatal hernia. 6. No other acute findings. Laboratory Results WBC 9.32 10^3/uL (3.29-11.43) 10/04/24 05:09 RBC 3.44 10^6/uL (3.85-5.65) L 10/04/24 05:09 Hgb 10.30 g/dL (11.27-16.99) L 10/04/24 05:09 Hct 33.3 % (36-47) L 10/04/24 05:09 MCV 96.8 fl (85-98) 10/04/24 05:09 MCH 29.9 pg (27-33) 10/04/24 05:09 MCHC 30.9 g/dL (30-55) 10/04/24 05:09 RDW 16.7 % (12.1-15.1) H 10/04/24 05:09 Plt Count 265 10^3/cmm (157-399) 10/04/24 05:09 MPV 10.9 fL (7.4-10.4) H 10/04/24 05:09 Neut % (Auto) 68.4 % 10/03/24 04:54 Lymph % (Auto) 21.2 % 10/03/24 04:54 Eddy % (Auto) 6.2 % 10/03/24 04:54 Eos % (Auto) 2.4 % 10/03/24 04:54 Baso % (Auto) 0.8 % 10/03/24 04:54 Neut # (Auto) 6.28 10^3/uL (1.8-7.7) 10/03/24 04:54 Lymph # (Auto) 1.9 10^3/uL (0.8-4.8) 10/03/24 04:54 Eddy # (Auto) 0.6 10^3/uL (0.2-0.9) 10/03/24 04:54 Eos # (Auto) 0.2 10^3/uL (0.0-0.8) 10/03/24 04:54 Baso # (Auto) 0.1 10^3/uL (0.0-0.1) 10/03/24 04:54 Nucleated RBC % (auto) 0 % 10/03/24 04:54 Total Counted 100 (0-100) 10/04/24 05:09 Atypical Lymphs % 0.0 % (0-5) 10/04/24 05:09 Absolute Neutrophils 6.3 10^3/cmm (1.4-6.5) 10/04/24 05:09 Segmented Neutrophils 68 % 10/04/24 05:09 Band Neutrophils 0.0 % 10/04/24 05:09 Absolute Lymphocytes 2.5 10^3/cmm (1.2-3.4) 10/04/24 05:09 Lymphocytes (Manual) 27 % 10/04/24 05:09 Monocytes (Manual) 3.0 % 10/04/24 05:09 Absolute Monocytes 0.3 10^3/cmm (0.1-0.6) 10/04/24 05:09 Eosinophils (Manual) 1 % 10/04/24 05:09 Absolute Eosinophils 0.1 10^3/cmm (0.0-0.7) 10/04/24 05:09 Basophils (Manual) 0.0 % 10/04/24 05:09 Absolute Basophils 0.0 10^3/cmm (0.0-0.2) 10/04/24 05:09 Myelocytes 1.0 % 10/04/24 05:09 Nucleated RBCs # 0.0 /100WBC 10/03/24 04:54 Platelet Estimate Normal (Normal) 10/04/24 05:09 ESR 50 mm/hr (0-15) H 09/29/24 00:55 PT 23.10 SECONDS (12.1-14.9) H 09/30/24 04:10 INR 1.92 (0.8-1.2) H 09/30/24 04:10 APTT 42.9 SECONDS (23.9-36.7) H 09/30/24 04:10 Sodium 141 mmol/L (136-145) 10/04/24 05:09 Potassium 3.9 mmol/L (3.5-5.1) 10/04/24 05:09 Chloride 100 mmol/L (98-107) 10/04/24 05:09 Carbon Dioxide 29 mmol/L (22-29) 10/04/24 05:09 Anion Gap 15.9 (5-19) 10/04/24 05:09 BUN 43 mg/dL (8-23) H 10/04/24 05:09 Creatinine 3.9 mg/dL (0.5-0.9) H 10/04/24 05:09 GFR Calculation Not Reportable 10/04/24 05:09 Glucose 73 mg/dL (65-115) 10/04/24 05:09 POC Glucose 92 mg/dL (70-110) 10/04/24 10:57 Calculated Osmolality 305 mOsm/kg (285-295) H 10/02/24 06:03 Lactic Acid 2.1 mmol/L (0.5-2.2) 09/29/24 00:55 Lactic Acid (Sepsis) 1.9 mmol/L (0.5-2.2) 09/29/24 04:22 Calcium 9.0 mg/dL (8.5-10.5) 10/04/24 05:09 Phosphorus 4.9 mg/dL (2.5-4.5) H 10/04/24 05:09 Magnesium 1.7 mg/dL (1.7-2.3) 10/02/24 06:03 Total Bilirubin 0.6 mg/dL (0.15-1.2) 10/02/24 06:03 AST 13 U/L (0-32) 10/02/24 06:03 ALT < 5 U/L (0-33) 10/02/24 06:03 Alkaline Phosphatase 133 U/L (35-105) H 10/02/24 06:03 Creatine Kinase 16 U/L (26-192) L 09/29/24 00:55 C-Reactive Protein 35.1 mg/L (0.0-4.9) H 09/29/24 00:55 Total Protein 7.0 g/dL (6.6-8.7) 10/02/24 06:03 Albumin 2.8 g/dL (3.5-5.2) L 10/04/24 05:09 Globulin 4.1 g/dL (1.3-4.6) 10/02/24 06:03 Urine Color Yellow (Yellow) 09/29/24 01:26 Urine Appearance Cloudy (CLEAR) A 09/29/24 01:26 Urine pH 7.5 (5-7) 09/29/24 01:26 Ur Specific [place] 1.009 (1.005-1.030) 09/29/24 01:26 Urine Protein 2+ (Negative) A 09/29/24 01:26 Urine Glucose (UA) Negative (Normal) 09/29/24 01:26 Urine Ketones Negative (Negative) 09/29/24 01:26 Urine Blood Non-haemolysed trace (Negative) 09/29/24 01:26 Urine Nitrate Negative (Negative) 09/29/24 01:26 Urine Bilirubin Negative (Negative) 09/29/24 01:26 Urine Urobilinogen 1.0 mg/dL (Negative) 09/29/24 01:26 Ur Leukocyte Esterase 2+ (Negative) A 09/29/24 01:26 Urine RBC 0-2 /hpf (0-2) 09/29/24 01:26 Urine WBC 51-100 /hpf (0-5) H 09/29/24 01:26 Ur Squamous Epith Cells 0-5 /hpf (0-5) 09/29/24 01:26 Amorphous Sediment Not Reportable 09/29/24 01:26 Urine Bacteria Exceeds /hpf (NONE) 09/29/24 01:26 Hyaline Casts 2.87 /lpf 09/29/24 01:26 Vancomycin Trough 15.1 ug/mL (10-15) H 09/30/24 04:10 Random Vancomycin 18.1 ug/mL (20.0-40.0) L 10/02/24 09:46 Vitals Last Vital Signs Temp 98.1 F 10/04/24 13:32 Pulse 71 10/04/24 13:32 Resp 18 10/04/24 13:32 BP 148/68 10/04/24 13:32 Pulse Ox 99 10/04/24 11:59 O2 Del Method Nasal Cannula 10/04/24 11:59 O2 Flow Rate 2 10/04/24 11:59 Discharge Plan Discharge Patient Disposition: Xfer SNF Condition: Stable Prescriptions: New ertapenem 1 gram recon soln 1 g IV Q24H 4 Days Qty: 4 0RF Continued (DME) [employer] See Rx Instructions .Route .MEDSUPPLY Qty: 1 0RF Rx Instructions: As directed (DME) CAM walker See Rx Instructions .Route .MEDSUPPLY Qty: 1 0RF Rx Instructions: As directed bisacodyl 10 mg Suppository 10 mg HI DAILY PRN (Reason: Constipation) vitamin A and D Ointment See Rx Instructions .ROUTE .COMPLEX Rx Instructions: APPLY TOPICALLY AEVERY SHIFT TO BLATERAL BUTTUCK: CLEANSE WITH SOAP AND WATER AND APPLY A AND D OINTMENT FOR SHEER PREVENTION. alprazolam [Xanax] 0.5 mg Tablet 0.5 mg PO TID PRN (Reason: Anxiety) levothyroxine 150 mcg Tablet 150 mcg PO DAILY trihexyphenidyl 2 mg Tablet 2 mg PO TID Rx Instructions: give with food (meal/snack) fluticasone propionate [Flonase Allergy Relief] 50 mcg/actuation [place],Suspension 1 mcg INTRANASAL BID white petrolatum [Vaseline] Gel 1 applic TOPICAL PRN Rx Instructions: apply to buttocks to prevent shearing insulin glargine [Basaglar Chata U-100 Insulin] 100 unit/mL (3 mL) Insulin Pen 15 unit SUBCUT BEDTIME Eliquis 5 mg Tablet 5 mg PO BID diphenhydramine HCl 25 mg Capsule 25 mg PO TID PRN (Reason: Itching) azelastine 137 mcg (0.1 %) [place],Non-Aerosol 2 spray INTRANASAL BID Rx Instructions: administer into each nostril tizanidine 4 mg Tablet 4 mg PO Q8H PRN (Reason: Muscle Spasm) fluoxetine [Prozac] 10 mg Capsule 10 mg PO DAILY nystatin 100,000 unit/gram Powder 1 applic TOPICAL BID Rx Instructions: to groin Wescaps 1 mg Capsule 1 cap PO DAILY oxycodone 5 mg Tablet 5 mg PO Q6H PRN (Reason: Pain) furosemide [Lasix] 40 mg Tablet 40 mg PO BID ondansetron HCl 4 mg Tablet 4 mg PO Q6H PRN (Reason: Nausea And Vomiting) loperamide [Imodium A-D] 2 mg Tablet 2 mg PO Q6H PRN (Reason: Loose Stool) metolazone 5 mg Tablet 5 mg PO QAM simvastatin 40 mg Tablet 40 mg PO BEDTIME@21 carbidopa-levodopa 25-100 mg Tablet 1 tab PO TID insulin aspart U-100 [Novolog FlexPen U-100 Insulin] 100 unit/mL (3 mL) Insulin Pen See Rx Instructions .ROUTE .COMPLEX Rx Instructions: sliding scale three times a day. IF BS LESS THAN 60, CALL MD. FOR BS 201-250=2 units 251-300=4 units 301-350=6 units 351-400=8 units call provider for bs <60 or >400 [place] 0.01 % Drops 1 drp OPHTHALMIC (EYE) BEDTIME acetaminophen 325 mg Tablet 650 mg PO Q6H omeprazole 20 mg Capsule,Delayed Release(Dr/Ec) 20 mg PO BID gabapentin 100 mg capsule 200 mg PO QPM Rx Instructions: Dose change only Referrals: Brandi Escalera MD [Primary Care Provider, Family Practice] Patient Instructions: Opioid Safety Discharge Attestations Status at Discharge: Cognitive status at discharge: cognitively intact , Behavioral status at discharge: cooperative , Coding Level of Care Code Acute Code for [facility] Diagnoses Diabetes mellitus type 2, insulin dependent E11.9; Z79.4 Acute alteration in mental status R41.82 Cellulitis of right lower extremity from knee to ankle L03.115 Parkinson's disease without dyskinesia or fluctuating manifestations G20.A1 Dyskinesia presence: without dyskinesia Fluctuating manifestations: without fluctuating manifestations ESRD on hemodialysis N18.6; Z99.2 Sepsis A41.9
--- NOTE | 2024-10-04 15:03 | P.PN_ITS ---
Subjective 2 Subjective: No acute events overnight. Patient seen at the bedside and has no new complaints . She still has some pain at area of cellulitis, but improving. Medications: Reviewed: Yes Vitals/I&O/Wt Last Vital Signs Temp 98.1 F 10/04/24 13:32 Pulse 71 10/04/24 13:32 Resp 18 10/04/24 13:32 BP 148/68 10/04/24 13:32 Pulse Ox 99 10/04/24 11:59 O2 Del Method Nasal Cannula 10/04/24 11:59 O2 Flow Rate 2 10/04/24 11:59 10/04/24 10/04/24 10/04/24 06:59 14:59 22:59 Intake Total 360 / 1080 Balance 360 / 1080 Weight last 48 hrs Weight 91.682 kg Weight 89.675 kg Weight 90 kg Physical Exam 2 Narrative: General -Awake, alert, no acute distress HEENT-normocephalic, atraumatic, neck is supple Lungs-clear to auscultation bilaterally, no wheezes or crackles CVS -S1-S2, regular rate and rhythm Abdomen -soft, nontender, normal bowel sounds Extremities-left BKA, right lower extremity -regressing from area marked Neurology -no gross focal deficits Urinary Catheter Management: Puckett: Cath Placed During This Visit: yes Reason for Continuing Indwelling Catheter: Other Urinary Catheter Date of Insertion: 09/29/24 Urinary Catheter Time of Insertion: 04:21 Data 10/04/24 05:09 10/04/24 05:09 Micro: Microbiology 09/29/24 01:14 Blood Culture - Final Blood Streptococcus mitis oralis 09/29/24 00:55 Blood Culture - Final Blood NO GROWTH AFTER 5 DAYS A&P Assessment and plan (1) Diabetes mellitus type 2, insulin dependent: (2) Acute alteration in mental status: (3) Cellulitis of right lower extremity from knee to ankle: (4) Parkinson's Disease: (5) ESRD on hemodialysis: (6) Sepsis: Plan # Severe sepsis - In the setting of UTI, right lower extremity cellulitis - Signs of sepsis improving - Continue IV antibiotics - Continue other supportive care # Acute complicated UTI - Urine cultures growing ESBL E. coli - Patient is on meropenem - She will need to complete 7-day course # Right lower extremity cellulitis - Patient continues to have erythema, tenderness in the right lower extremity, area of cellulitis regressing from marked area - Continue IV antibiotics-meropenem, vancomycin - DVT ultrasound is negative #Streptococcus Mitis Oralis Bacteremia -2 bottles grew the above org from 09/29 -Organism can cause IE, could also be a contaminant -Repeat cultures negative till date -Will get TTE -Continue IV antibiotics - vancomycin for now # Acute metabolic encephalopathy - In the setting of acute infectious process - Patient's mental status is improved # History of Parkinson's disease - Continue chronic medications # Paroxysmal atrial fibrillation - Continue apixaban, rate controlled medications # History of PE - Patient on apixaban # Chronic hypoxic respiratory failure - Continue supplemental oxygen # ESRD on hemodialysis - Nephrology following for dialysis needs PDMP PDMP Reviewed: Not Reviewed Attestations 2 Medical Necessity Statement*: Patient continues to require inpatient care for cellulitis, UTI , bacteremia requiring IV antibiotics Coding Level of Care Code Acute Code for [facility] Diagnoses Diabetes mellitus type 2, insulin dependent E11.9; Z79.4 Acute alteration in mental status R41.82 Cellulitis of right lower extremity from knee to ankle L03.115 Parkinson's disease without dyskinesia or fluctuating manifestations G20.A1 Dyskinesia presence: without dyskinesia Fluctuating manifestations: without fluctuating manifestations ESRD on hemodialysis N18.6; Z99.2 Sepsis A41.9
[2024-10-04] MEDS: heparin, porcine 1,000 unit/mL INJ 10 mL 1000 UNIT IV (15:45)
[2024-10-04 16:50] LABS: Glucose Point of Care 81 mg/dL (70-110)
[2024-10-04] MEDS: gabapentin 100 mg Capsule 200 MG PO (18:29)
[2024-10-04 21:15] LABS: Glucose Point of Care 157 mg/dL (70-110)
[2024-10-04] MEDS: insulin glargine 100 units/1 mL 25 UNIT SUBCUT (22:57)
[2024-10-04] MEDS: insulin lispro 100 unit/1 mL SUBCUT (22:57)
[2024-10-04] MEDS: trazodone 100 mg Tablet PO (22:59)
[2024-10-04] MEDS: LUMIGAN 1 EACH EYE-BOTH (22:59)
[2024-10-04] MEDS: atorvastatin 40 mg Tablet 20 MG PO (22:59)
[2024-10-05] VITALS (9 sets, daily range): BP systolic 105–133; BP diastolic 60–75; PULSE 50–85; RESP 15–18; TEMP 36.6–36.9; O2SAT 95–100
[2024-10-05] MEDS: VANCOMYCIN ADD-Vantage 1,000 MG in 0.9% NaCl ADD-Vantage 250 ML 250 MG IV (00:55)
[2024-10-05] MEDS: vitamin A & D oint TOPICAL ×3 (00:55→22:09)
[2024-10-05] MEDS: levothyroxine 150 mcg Tablet PO (05:26)
[2024-10-05] MEDS: metOLazone 5 MG Tablet PO (05:27)
[2024-10-05 05:53] LABS: Basophils # 0.1 10^3/uL (0.0-0.1); Basophils % 0.7 %; Eosinophils # 0.1 10^3/uL (0.0-0.8); Hematocrit 34.8 % (36-47); Lymphocytes # 2.2 10^3/uL (0.8-4.8); Lymphocytes % 15.1 %; Mean Corpuscular HGB Conc 30.2 g/dL (30-55); Mean Corpuscular Hemoglobin 29.8 pg (27-33); Mean Corpuscular Volume 98.9 fl (85-98); Mean Platelet Volume 10.8 fL (7.4-10.4); Monocytes # 0.8 10^3/uL (0.2-0.9); Monocytes % 5.6 %; Neutrophils # 10.89 10^3/uL (1.8-7.7); Neutrophils % 76.4 %; Nucleated Red Blood Cells % 0 %; Platelet Count 318 10^3/cmm (157-399); Red Blood Count 3.52 10^6/uL (3.85-5.65); Red Cell Distribution Width 16.5 % (12.1-15.1); White Blood Count 14.25 10^3/uL (3.29-11.43)
[2024-10-05 06:17] LABS: Albumin Level 3.1 g/dL (3.5-5.2); Blood Urea Nitrogen 36 mg/dL (8-23); Carbon Dioxide 31 mmol/L (22-29); Chloride 101 mmol/L (98-107); Creatinine Clr Calc Pharmacy 15.8518; Glucose 65 mg/dL (65-115); Phosphorus 3.7 mg/dL (2.5-4.5); Sodium 141 mmol/L (136-145)
[2024-10-05 06:58] LABS: Glucose Point of Care 65 mg/dL (70-110)
[2024-10-05] MEDS: FUROsemide 40 mg Tablet PO ×2 (08:33→17:31)
[2024-10-05] MEDS: carbidopa-levodopa 25-100mg Tablet 2 EACH PO ×3 (08:33→20:58)
[2024-10-05] MEDS: sertraline 100 mg Tablet PO (08:33)
[2024-10-05] MEDS: tizanidine 4 mg Tablet PO ×2 (08:34→16:39)
[2024-10-05] MEDS: apixaban 5 mg Tablet PO ×2 (08:34→17:31)
[2024-10-05] MEDS: sevelamer 800 mg Tablet 1600 MG PO ×3 (08:34→17:31)
[2024-10-05] MEDS: pantoprazole DR 40 mg Tablet PO (08:34)
[2024-10-05] MEDS: acetaminophen 325 mg Tablet 650 MG PO ×2 (08:34→16:38)
[2024-10-05] MEDS: metoprolol tartrate 50 mg Tablet 100 MG PO ×2 (08:34→17:34)
--- NOTE | 2024-10-05 09:20 | P.PN_ITS ---
Subjective 2 Subjective: s/p HD yesterday Medications: Reviewed: Yes Vitals/I&O/Wt Last Vital Signs Temp 97.8 F 10/05/24 08:00 Pulse 59 L 10/05/24 08:00 Resp 18 10/05/24 08:00 BP 113/65 10/05/24 08:00 Pulse Ox 99 10/05/24 08:00 O2 Del Method Nasal Cannula 10/05/24 08:00 O2 Flow Rate 2 10/04/24 15:54 10/04/24 10/05/24 10/05/24 22:59 06:59 14:59 Intake Total 620 / 620 690 / 1310 240 / 240 Output Total 1859 / 1859 Balance -1239 / -1239 690 / -549 240 / 240 Weight last 48 hrs Weight 89.2 kg Weight 91.682 kg Physical Exam 2 Narrative: GEN: nad, alert, conversant HEAD: normocephalic, atraumatic EYES: eomi, anicteric sclera HEENT: mmm NECK: no jvd CV: RRR LUNGS: ctab ABD: soft, nt , nd EXT: no LE edema NEURO: grossly normal SKIN: no rash Urinary Catheter Management: Puckett: Cath Placed During This Visit: yes Reason for Continuing Indwelling Catheter: Other Urinary Catheter Date of Insertion: 09/29/24 Urinary Catheter Time of Insertion: 04:21 Data 10/06/24 05:45 10/06/24 05:45 Micro: Microbiology 09/29/24 01:14 Blood Culture - Final Blood Streptococcus mitis oralis A&P Assessment and plan (1) ESRD on hemodialysis: Plan 1. ESRD- She is on maintenance HD on MWF schedule. HD sunday , next hD sunday 2. Sepsis- sec to UTI and Cellulitis, on abx per the primary service 3. History of hypertension- meds on hold 4. Anemia in ckd- Hemoglobin 9.8 , will give CHANDRAKANT Pt evaluated using audiovidual cart. Time spent 40 min PDMP PDMP Reviewed: Not Reviewed Attestations 2 Medical Necessity Statement*: per medicine Coding Level of Care Code Acute Code for [facility] Diagnoses ESRD on hemodialysis N18.6; Z99.2
--- NOTE | 2024-10-05 10:36 | XRR_ITS ---
PROCEDURE INFORMATION: Exam: XR Chest Exam date and time: 10/05/2024 11:19 AM Age: 79 years old Clinical indication: Other: Diminished lung sounds TECHNIQUE: Imaging protocol: Radiologic exam of the chest. Views: 1 view. COMPARISON: CR (CHEST, ) 09/29/2024 12:55 AM FINDINGS: Lungs: Slight probable atelectasis left lung base. Pleural spaces: Slight blunting left costophrenic angle laterally suggesting small pleural effusion. Left apical pleural thickening similar to prior study. No large or obvious pneumothorax seen. Heart/Mediastinum: Stable heart size. Vasculature: Atherosclerotic disease. Diaphragm: Persistent elevation/eventration right hemidiaphragm. Bones/joints: Degenerative changes spine. Other findings: Shallow inspiration. Evidence of TENS over thoracic spine. XR/XR chest 1V portable [id number] IMPRESSION: Slight blunting left costophrenic angle laterally suggesting small pleural effusion. Slight probable atelectasis left lung base.
[2024-10-05] MEDS: fluticasone nasal spray 16gm Btl 1 SPRAY INTRANASAL ×2 (10:38→17:32)
[2024-10-05] MEDS: meropenem 500 mg SDV IVP (10:38)
[2024-10-05 11:23] LABS: Glucose Point of Care 106 mg/dL (70-110)
--- NOTE | 2024-10-05 15:03 | USCV_ITS ---
Megnha Chaudhari Age: 79 Gender: F : 1945 Exam Date: 10/05/2024 09:24 Ordering Phys: Stan Damon MD Technologist: Tiago Mckeon Exam Location: [facility] [place] Indication: bacteremia BP: 113 / 65 HR: 67 Rhythm: Sinus Technical Quality: Adequate MEASUREMENTS (Male / Female) Normal Values 2D ECHO LV Diastolic Diameter PLAX 4.6 cm 4.2 - 5.9 / 3.9 - 5.3 cm IVS Diastolic Thickness 1.1 cm 0.6 - 1.0 / 0.6 - 0.9 cm IVS Systolic Thickness 1.5 cm LVPW Diastolic Thickness 1.8 cm 0.6 - 1.0 / 0.6 - 0.9 cm LVPW Systolic Thickness 1.8 cm LVOT Diameter 2.0 cm LV Ejection Fraction 2D Teich 59.9 % LV Ejection Fraction MOD 4C 76.1 % LV Ejection Fraction MOD 2C 61.5 % LV Ejection Fraction 2C AL 61.6 % LA Diameter 4.1 cm RA Systolic Volume 4C AL 75.3 ml RA Systolic Volume 4C MOD 75.0 ml LA Sys Volume AL 65.5 cm cubed LA Sys Volume Index AL 31.6 cm cubed/m squared Aorta at Sinotubular Diameter 2.2 cm IVC Diameter 2.0 cm M-MODE LA Ao Ratio MM 1.8 AV Cusp Separation MM 1.8 cm DOPPLER AV Peak Velocity 140.7 cm/s LVOT Peak Velocity 111.0 cm/s AV Area Cont Eq vti 3.2 cm squared AV Area Cont Eq pk 2.5 cm squared MV Peak Velocity 164.0 cm/s MV Area PHT 5.2 cm squared Mitral E to A Ratio 3.2 TR Peak Velocity 327.0 cm/s TR Peak Gradient 42.8 mmHg TR Mean Velocity 220.0 cm/s TR Mean Gradient 22.4 mmHg TR Velocity Time Integral 92.4 cm PV Peak Velocity 117.7 cm/s RV Ejection Time 0.4 s FINDINGS Left Ventricle Normal left ventricular size, systolic function and wall thickness, with no regional wall motion abnormalities. Left ventricular ejection fraction is estimated at 60 %. Grade III/IV diastolic dysfunction (restrictive filling pattern), severely elevated filling pressures. Right Ventricle The right ventricle is normal in size and function. Right Atrium The right atrium is normal in size. Left Atrium Moderately increased left atrial size. Mitral Valve Mildly thickened mitral valve. Moderate mitral annular calcification. No mitral valve stenosis. Moderate mitral valve regurgitation. Aortic Valve Structurally normal aortic valve without significant sclerosis or stenosis. There is no aortic regurgitation. Tricuspid Valve Thickened tricuspid valve. Moderate tricuspid valve regurgitation. Pulmonic Valve Structurally normal pulmonic valve without significant stenosis. There is no pulmonic regurgitation. Pericardium Normal pericardium without effusion. Aorta Normal ascending aorta dimension. IVC Dilated IVC with normal respiratory variation. CONCLUSIONS Normal left ventricular size, systolic function and wall thickness, with no regional wall motion abnormalities. Left ventricular ejection fraction is estimated at 60 %. Grade III/IV diastolic dysfunction (restrictive filling pattern), severely elevated filling pressures. Moderately increased left atrial size. Thickened tricuspid valve. Moderate tricuspid valve regurgitation. There is no pericardial effusion. Right atrial pressure is around 20 mm of mercury. Gonzalo Walsh MD (Electronically Signed) Final Date: 05 October 2024 13:55 S
[2024-10-05 16:21] LABS: Glucose Point of Care 108 mg/dL (70-110)
--- NOTE | 2024-10-05 16:40 | P.PN_ITS ---
Subjective 2 Subjective: Patient reports doing pretty well. No problems overnight. She denies any pain at this time. States that her leg is feeling better. Medications: Reviewed: Yes Vitals/I&O/Wt Last Vital Signs Temp 98.4 F 10/05/24 16:00 Pulse 85 10/05/24 16:00 Resp 17 10/05/24 16:00 BP 133/65 10/05/24 16:00 Pulse Ox 99 10/05/24 16:00 O2 Del Method Nasal Cannula 10/05/24 16:00 O2 Flow Rate 5 10/05/24 10:43 10/05/24 10/05/24 10/05/24 06:59 14:59 22:59 Intake Total 690 / 1310 720 / 720 Balance 690 / -549 720 / 720 Weight last 48 hrs Weight 196 lb 10.437 oz Weight 202 lb 2 oz Physical Exam 2 Narrative: General:Awake, alert, no acute distress HEENT: Normocephalic, atraumatic, neck is supple Lungs: LCTA, no wheezes or crackles Heart: Regular rate and rhythm Abdomen: soft, nontender, normal bowel sounds Extremities: left BKA, right lower extremity with raised, erythematous, blanchable, tender rash,-regressing from area marked Neurology: no focal motor or sensory deficits Urinary Catheter Management: Puckett: Cath Placed During This Visit: yes Reason for Continuing Indwelling Catheter: Other Urinary Catheter Date of Insertion: 09/29/24 Urinary Catheter Time of Insertion: 04:21 Data 10/05/24 04:57 10/05/24 04:57 A&P Assessment and plan (1) Diabetes mellitus type 2, insulin dependent: (2) Acute alteration in mental status: (3) Cellulitis of right lower extremity from knee to ankle: (4) Parkinson's Disease: (5) ESRD on hemodialysis: (6) Sepsis: Plan 79-year-old female admitted for severe sepsis secondary to UTI and right lower extremity cellulitis. Continue inpatient monitoring. Severe sepsis is currently improving. Blood pressures currently stable at 133/65. She is afebrile. Currently on meropenem and vancomycin and will continue. Urine culture is growing ESBL E. coli. She did have a positive blood culture with Streptococcus mitis oralis. Repeat cultures are negative today. Nephrology is consulted for end-stage renal disease and dialysis. She had echocardiogram that did not show any vegetations. EF was at 60%. Consider TANVI. She is currently on Eliquis for history of PE. We will continue. She has chronic hypoxic respiratory failure. She is on supplemental oxygen and sats are in the 90s percent. Currently on 3 L O2. Currently on long-acting and sliding scale insulin for management of diabetes while in the hospital. Continue carbidopa levodopa for Perkinson's. Code Status: Full IVF: NS DVT PPx: Eliquis GI PPx: Protonix ABx: Vancomycin, meropenem Diet: Consistent carbohydrate Discharge plan: To be determined PDMP PDMP Reviewed: Not Reviewed Attestations 2 Medical Necessity Statement*: Patient continues to require inpatient care for cellulitis, UTI , bacteremia requiring IV antibiotics Coding Level of Care Code Acute Code for [facility] Moderate MDM includes number and complexity of problems actively addressed during encounter, amount and/or complexity of data reviewed/ordered and described risk of complication, morbidity or mortality of management as documented Diagnoses Diabetes mellitus type 2, insulin dependent E11.9; Z79.4 Acute alteration in mental status R41.82 Cellulitis of right lower extremity from knee to ankle L03.115 Parkinson's disease without dyskinesia or fluctuating manifestations G20.A1 Dyskinesia presence: without dyskinesia Fluctuating manifestations: without fluctuating manifestations ESRD on hemodialysis N18.6; Z99.2 Sepsis A41.9
[2024-10-05] MEDS: gabapentin 100 mg Capsule 200 MG PO (17:31)
[2024-10-05 20:43] LABS: Glucose Point of Care 154 mg/dL (70-110)
[2024-10-05] MEDS: atorvastatin 40 mg Tablet 20 MG PO (20:58)
[2024-10-05] MEDS: trazodone 100 mg Tablet PO (20:59)
[2024-10-05] MEDS: LUMIGAN 1 EACH EYE-BOTH (21:00)
[2024-10-05] MEDS: insulin glargine 100 units/1 mL 25 UNIT SUBCUT (21:06)
[2024-10-05] MEDS: insulin lispro 100 unit/1 mL SUBCUT (21:06)
[2024-10-06] VITALS (9 sets, daily range): BP systolic 122–158; BP diastolic 64–90; PULSE 52–86; RESP 16–19; TEMP 36.5–37; O2SAT 92–99
[2024-10-06] MEDS: metOLazone 5 MG Tablet PO (05:08)
[2024-10-06] MEDS: levothyroxine 150 mcg Tablet PO (05:08)
[2024-10-06 06:11] LABS: Basophils # 0.1 10^3/uL (0.0-0.1); Basophils % 0.6 %; Eosinophils # 0.2 10^3/uL (0.0-0.8); Eosinophils % 1.3 %; Lymphocytes # 1.8 10^3/uL (0.8-4.8); Lymphocytes % 15.1 %; Mean Corpuscular HGB Conc 30.9 g/dL (30-55); Mean Corpuscular Hemoglobin 30.3 pg (27-33); Mean Platelet Volume 10.4 fL (7.4-10.4); Monocytes # 0.6 10^3/uL (0.2-0.9); Monocytes % 4.9 %; Neutrophils # 8.93 10^3/uL (1.8-7.7); Neutrophils % 76.3 %; Nucleated Red Blood Cells % 0 %; Platelet Count 303 10^3/cmm (157-399); Red Blood Count 3.57 10^6/uL (3.85-5.65); Red Cell Distribution Width 16.2 % (12.1-15.1); White Blood Count 11.69 10^3/uL (3.29-11.43)
[2024-10-06 06:21] LABS: Glucose Point of Care 73 mg/dL (70-110)
[2024-10-06 07:32] LABS: Alanine Aminotransferase < 5 U/L (0-33); Alkaline Phosphatase 114 U/L (35-105); Aspartate Amino Transferase 9 U/L (0-32); Blood Urea Nitrogen 47 mg/dL (8-23); C Reactive Protein 11.3 mg/L (0.0-4.9); Calcium 9.2 mg/dL (8.5-10.5); Carbon Dioxide 24 mmol/L (22-29); Chloride 97 mmol/L (98-107); Creatinine Clr Calc Pharmacy 13.7436; Globulin 4.4 g/dL (1.3-4.6); Glucose 71 mg/dL (65-115); Osmolality Calculated 293 mOsm/kg (285-295); Sodium 136 mmol/L (136-145); Total Bilirubin 0.6 mg/dL (0.15-1.2); Total Protein 7.4 g/dL (6.6-8.7)
[2024-10-06] MEDS: tizanidine 4 mg Tablet PO (08:19)
[2024-10-06] MEDS: FUROsemide 40 mg Tablet PO (08:19)
[2024-10-06] MEDS: apixaban 5 mg Tablet PO (08:19)
[2024-10-06] MEDS: carbidopa-levodopa 25-100mg Tablet 2 EACH PO (08:19)
[2024-10-06] MEDS: sennosides 8.6 mg Tablet 17.2 MG PO (08:19)
[2024-10-06] MEDS: metoprolol tartrate 50 mg Tablet 100 MG PO (08:19)
[2024-10-06] MEDS: sertraline 100 mg Tablet PO (08:19)
[2024-10-06] MEDS: sevelamer 800 mg Tablet 1600 MG PO ×2 (08:19→12:40)
[2024-10-06] MEDS: pantoprazole DR 40 mg Tablet PO (08:20)
[2024-10-06] MEDS: meropenem 500 mg SDV IVP (08:24)
[2024-10-06] MEDS: fluticasone nasal spray 16gm Btl 1 SPRAY INTRANASAL (08:24)
[2024-10-06] MEDS: vitamin A & D oint TOPICAL (08:24)
[2024-10-06 08:27] LABS: Vancomycin Random 29.3 ug/mL (20.0-40.0)
[2024-10-06 10:19] LABS: SARS Covid-2 Antigen Negative (Negative)
[2024-10-06 11:41] LABS: Glucose Point of Care 121 mg/dL (70-110)
--- NOTE | 2024-10-06 12:04 | ECG_ITS ---
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 Measurements Intervals [place] Rate: 59 P: 0 [place]: 0 QRS: -9 QRSD: 97 T: -1 QT: 423 QTc: 422 Interpretive Statements ATRIAL FIBRILLATION WITH SLOW VENTRICULAR RESPONSE MINIMAL VOLTAGE CRITERIA FOR LVH, CONSIDER NORMAL VARIANT [MEETS CRITERIA IN ONE OF: R(aVL), S(V1), R(V5), R(V5/V6)+S(V1)] ABNORMAL RHYTHM ECG Compared to ECG 09/30/2024 04:17:08 No significant changes Electronically Signed On 10-08-2024 22:08:54 CDT by Adalgisa Orozco M.D. [email or web address]
--- NOTE | 2024-10-06 12:04 | XRR_ITS ---
PROCEDURE INFORMATION: Exam: XR Chest Exam date and time: 10/06/2024 12:28 PM Age: 79 years old Clinical indication: Pain; Other: Chest; Additional info: Chest pain TECHNIQUE: Imaging protocol: Radiologic exam of the chest. Views: 1 view. COMPARISON: CR (CHEST, ) 10/05/2024 11:19 AM FINDINGS: Lungs: Unremarkable. No consolidation. Pleural spaces: Unremarkable. No pleural effusion. No pneumothorax. Heart/Mediastinum: Cardiac silhouette appears mildly enlarged on this portable chest. Bones/joints: Unremarkable. XR/XR chest 1V portable [id number] IMPRESSION: Mild cardiomegaly otherwise negative chest.
--- NOTE | 2024-10-06 14:00 | P.PN_ITS ---
Subjective 2 Subjective: no new c/o Medications: Reviewed: Yes Vitals/I&O/Wt Last Vital Signs Temp 97.9 F 10/06/24 12:01 Pulse 64 10/06/24 12:01 Resp 19 H 10/06/24 12:01 BP 125/64 10/06/24 12:01 Pulse Ox 99 10/06/24 12:01 O2 Del Method Nasal Cannula 10/06/24 12:01 O2 Flow Rate 3 10/06/24 08:24 10/05/24 10/06/24 10/06/24 22:59 06:59 14:59 Intake Total 780 / 1500 300 / 1800 720 / 720 Output Total 400 / 400 Balance 780 / 1500 -100 / 1400 720 / 720 Weight last 48 hrs Weight 88.904 kg Weight 89.2 kg Physical Exam 2 Narrative: GEN: nad, alert, conversant HEAD: normocephalic, atraumatic EYES: eomi, anicteric sclera HEENT: mmm NECK: no jvd CV: RRR LUNGS: ctab ABD: soft, nt , nd EXT: no LE edema NEURO: grossly normal SKIN: no rash Urinary Catheter Management: Puckett: Cath Placed During This Visit: yes Reason for Continuing Indwelling Catheter: Other Urinary Catheter Date of Insertion: 09/29/24 Urinary Catheter Time of Insertion: 04:21 Data 10/06/24 05:45 10/06/24 05:45 Micro: Microbiology 10/01/24 05:19 Blood Culture - Final Blood NO GROWTH AFTER 5 DAYS 10/01/24 05:17 Blood Culture - Final Blood NO GROWTH AFTER 5 DAYS A&P Assessment and plan (1) ESRD on hemodialysis: Plan 1. ESRD- She is on maintenance HD on MWF schedule. HD sunday , next hD today 2. Sepsis- sec to UTI and Cellulitis, on abx per the primary service 3. History of hypertension- meds on hold 4. Anemia in ckd- Hemoglobin 10.8 , will give CHANDRAKANT Pt evaluated using audiovidual cart. Time spent 40 min PDMP PDMP Reviewed: Not Reviewed Attestations 2 Medical Necessity Statement*: per [facility] Coding Level of Care Code Acute Code for Chg Fwd Diagnoses ESRD on hemodialysis N18.6; Z99.2
--- NOTE | 2024-10-06 14:13 | PC.SOCIAL ---
IMM Updated Updated pt on IMM. No questions voiced. Provided pt a copy. Initialed, dated, & timed copy in chart.
--- NOTE | 2024-10-06 15:21 | PC.NURSE ---
Gave report to [facility] and currently waiting on patient to finish dialysis. Pt will leave back to facility after dialysis is finished.
[2024-10-06] MEDS: ertapenem 1,000 mg SDV 500 MG IVP (16:36)
[2024-10-06 16:44] LABS: Glucose Point of Care 91 mg/dL (70-110)
--- NOTE | 2024-10-06 16:44 | PC.NURSE ---
[facility] with ready transport was called and informed that pt is ready for discharge.
--- NOTE | 2024-10-06 17:02 | P.DS_ITS ---
Discharge Providers Date of Admission: 09/29/24 03:01 Date of Discharge: October 06, 2024 Attending Provider at Admission: Philip Foster MD Attending Provider at Discharge: Suzy Morgan MD Primary Care Provider: Brandi Escalera MD Diagnoses at Discharge Discharge Diagnosis (1) ESRD on hemodialysis: Status: Acute Reason for Visit Reason for Visit: RIGHT LEG PAIN Hospital Course Hospital Course In summary , Ms Meghna Chaudhari is a 79 year old female is a resident at [facility] custodial who presented for further evaluation of fever, left leg redness and pain. She was found to have left leg cellulitis and was admitted for further evaluation and management.She was also diagnosed with UTI with ESBl E.coli. Blood cx was positive for strep mitis oralis. TTE negative for vegetations. Likely source to be cellulitis. She had improvement in her symptoms. received treatment with iv meroepenem in the hospital and was transitioned to ertapenem 1g iv three times per week after dialysis for total duration of 2 weeks. She was followed by nephrology for her dialysis needs. She will complete the course of IV ertapenem in the custodial. She has a plantar wound over medial right foot, undergoes wound care at [facility], recommended to keep f/up with podiatry Physical Exam Narrative: General: No acute distress, AO x3 HEENT: PERRLA, pupils bilaterally equal and reactive, pallors not present Chest: Normal vesicular breath sounds, no added sounds, equal good air entry bilaterally CVS: S1-S2 regular, no murmurs, no tachycardia, no gallops, no rubs Abdomen: Soft, nontender, no organomegaly, bowel sounds present Neuro: No focal deficits, no facial deformity, AO x3, power 5/5 in all limbs Extremities: left BKA. RLE With improving cellulitis over tibia. Urinary Catheter Management: Puckett: Cath Placed During This Visit: yes Reason for Continuing Indwelling Catheter: Other Urinary Catheter Date of Insertion: 09/29/24 Urinary Catheter Time of Insertion: 04:21 Discharge Data Studies Completed and Pending Completed Studies During Hospitalization Category Date Time Status CT abdomen pelvis con [id number] Routine Cat Scan 10/02/24 07:00 Completed CXRP [XR chest 1V portable [id number]] Stat Exams 10/05/24 10:36 Completed CXRP [XR chest 1V portable [id number]] Stat Exams 10/06/24 12:04 Completed XR chest 1V portable [id number] Stat Exams 09/29/24 00:35 Completed XR foot RT min 3V* [id number] Stat Exams 09/29/24 00:39 Completed CV. echo complete* [id number] Routine Ultrasound 10/05/24 15:03 Completed US venous duplex lower extremity RT [CV venous duplex Ultrasound 09/29/24 00:[place] [id number]] Stat Radiology Impressions Venous Duplex 09/29/24 00:35 IMPRESSION: No evidence of deep vein thrombosis. Foot X-Ray 09/29/24 00:39 IMPRESSION: Degenerative changes of the midfoot, likely reflecting Charcot arthropathy, stable to slightly worsened compared to 09/11/2021. Abdomen/Pelvis CT 10/02/24 07:00 IMPRESSION: 1. Puckett catheter. Bladder is decompressed. 2. Bilateral renal atrophy. No hydronephrosis. 3. Hepatomegaly and splenomegaly similar to previous. 4. Prominent RIGHT iliac chain, pelvic sidewall and RIGHT femoral lymph nodes nonspecific but may be reactive. These are similar to 2023 with mild progression 5. Small esophageal hiatal hernia. 6. No other acute findings. Chest X-Ray 10/06/24 12:04 IMPRESSION: Mild cardiomegaly otherwise negative chest. Laboratory Results WBC 11.69 10^3/uL (3.29-11.43) H 10/06/24 05:45 RBC 3.57 10^6/uL (3.85-5.65) L 10/06/24 05:45 Hgb 10.80 g/dL (11.27-16.99) L 10/06/24 05:45 Hct 35.0 % (36-47) L 10/06/24 05:45 MCV 98.0 fl (85-98) 10/06/24 05:45 MCH 30.3 pg (27-33) 10/06/24 05:45 MCHC 30.9 g/dL (30-55) 10/06/24 05:45 RDW 16.2 % (12.1-15.1) H 10/06/24 05:45 Plt Count 303 10^3/cmm (157-399) 10/06/24 05:45 MPV 10.4 fL (7.4-10.4) 10/06/24 05:45 Neut % (Auto) 76.3 % 10/06/24 05:45 Lymph % (Auto) 15.1 % 10/06/24 05:45 [place] % (Auto) 4.9 % 10/06/24 05:45 Eos % (Auto) 1.3 % 10/06/24 05:45 Baso % (Auto) 0.6 % 10/06/24 05:45 Neut # (Auto) 8.93 10^3/uL (1.8-7.7) H 10/06/24 05:45 Lymph # (Auto) 1.8 10^3/uL (0.8-4.8) 10/06/24 05:45 [place] # (Auto) 0.6 10^3/uL (0.2-0.9) 10/06/24 05:45 Eos # (Auto) 0.2 10^3/uL (0.0-0.8) 10/06/24 05:45 Baso # (Auto) 0.1 10^3/uL (0.0-0.1) 10/06/24 05:45 Nucleated RBC % (auto) 0 % 10/06/24 05:45 Total Counted 100 (0-100) 10/04/24 05:09 Atypical Lymphs % 0.0 % (0-5) 10/04/24 05:09 Absolute Neutrophils 6.3 10^3/cmm (1.4-6.5) 10/04/24 05:09 Segmented Neutrophils 68 % 10/04/24 05:09 Band Neutrophils 0.0 % 10/04/24 05:09 Absolute Lymphocytes 2.5 10^3/cmm (1.2-3.4) 10/04/24 05:09 Lymphocytes (Manual) 27 % 10/04/24 05:09 Monocytes (Manual) 3.0 % 10/04/24 05:09 Absolute Monocytes 0.3 10^3/cmm (0.1-0.6) 10/04/24 05:09 Eosinophils (Manual) 1 % 10/04/24 05:09 Absolute Eosinophils 0.1 10^3/cmm (0.0-0.7) 10/04/24 05:09 Basophils (Manual) 0.0 % 10/04/24 05:09 Absolute Basophils 0.0 10^3/cmm (0.0-0.2) 10/04/24 05:09 Myelocytes 1.0 % 10/04/24 05:09 Nucleated RBCs # 0.0 /100WBC 10/06/24 05:45 Platelet Estimate Normal (Normal) 10/04/24 05:09 ESR 50 mm/hr (0-15) H 09/29/24 00:55 PT 23.10 SECONDS (12.1-14.9) H 09/30/24 04:10 INR 1.92 (0.8-1.2) H 09/30/24 04:10 APTT 42.9 SECONDS (23.9-36.7) H 09/30/24 04:10 Sodium 136 mmol/L (136-145) 10/06/24 05:45 Potassium 4.0 mmol/L (3.5-5.1) 10/06/24 05:45 Chloride 97 mmol/L (98-107) L 10/06/24 05:45 Carbon Dioxide 24 mmol/L (22-29) 10/06/24 05:45 Anion Gap 19.0 (5-19) 10/06/24 05:45 BUN 47 mg/dL (8-23) H 10/06/24 05:45 Creatinine 3.8 mg/dL (0.5-0.9) H 10/06/24 05:45 GFR Calculation Not Reportable 10/06/24 05:45 Glucose 71 mg/dL (65-115) 10/06/24 05:45 POC Glucose 91 mg/dL (70-110) 10/06/24 16:32 Calculated Osmolality 293 mOsm/kg (285-295) 10/06/24 05:45 Lactic Acid 2.1 mmol/L (0.5-2.2) 09/29/24 00:55 Lactic Acid (Sepsis) 1.9 mmol/L (0.5-2.2) 09/29/24 04:22 Calcium 9.2 mg/dL (8.5-10.5) 10/06/24 05:45 Phosphorus 3.7 mg/dL (2.5-4.5) 10/05/24 04:57 Magnesium 1.7 mg/dL (1.7-2.3) 10/02/24 06:03 Total Bilirubin 0.6 mg/dL (0.15-1.2) 10/06/24 05:45 AST 9 U/L (0-32) 10/06/24 05:45 ALT < 5 U/L (0-33) 10/06/24 05:45 Alkaline Phosphatase 114 U/L (35-105) H 10/06/24 05:45 Creatine Kinase 16 U/L (26-192) L 09/29/24 00:55 C-Reactive Protein 11.3 mg/L (0.0-4.9) H 10/06/24 05:45 Total Protein 7.4 g/dL (6.6-8.7) 10/06/24 05:45 Albumin 3.0 g/dL (3.5-5.2) L 10/06/24 05:45 Globulin 4.4 g/dL (1.3-4.6) 10/06/24 05:45 Urine Color Yellow (Yellow) 09/29/24 01:26 Urine Appearance Cloudy (CLEAR) A 09/29/24 01:26 Urine pH 7.5 (5-7) 09/29/24 01:26 Ur Specific [place] 1.009 (1.005-1.030) 09/29/24 01:26 Urine Protein 2+ (Negative) A 09/29/24 01:26 Urine Glucose (UA) Negative (Normal) 09/29/24 01:26 Urine Ketones Negative (Negative) 09/29/24 01:26 Urine Blood Non-haemolysed trace (Negative) 09/29/24 01:26 Urine Nitrate Negative (Negative) 09/29/24 01:26 Urine Bilirubin Negative (Negative) 09/29/24 01:26 Urine Urobilinogen 1.0 mg/dL (Negative) 09/29/24 01:26 Ur Leukocyte Esterase 2+ (Negative) A 09/29/24 01:26 Urine RBC 0-2 /hpf (0-2) 09/29/24 01:26 Urine WBC 51-100 /hpf (0-5) H 09/29/24 01:26 Ur Squamous Epith Cells 0-5 /hpf (0-5) 09/29/24 01:26 Amorphous Sediment Not Reportable 09/29/24 01:26 Urine Bacteria Exceeds /hpf (NONE) 09/29/24 01:26 Hyaline Casts 2.87 /lpf 09/29/24 01:26 Vancomycin Trough 15.1 ug/mL (10-15) H 09/30/24 04:10 Random Vancomycin 29.3 ug/mL (20.0-40.0) 10/06/24 07:47 SARS-CoV-2 Ag (Rapid) Negative (Negative) 10/06/24 09:45 Vitals Last Vital Signs Temp 97.7 F 10/06/24 14:40 Pulse 72 10/06/24 14:40 Resp 18 10/06/24 14:40 BP 144/74 10/06/24 14:40 Pulse Ox 99 10/06/24 12:01 O2 Del Method Nasal Cannula 10/06/24 12:01 O2 Flow Rate 3 10/06/24 08:24 Discharge Plan Discharge Patient Disposition: Xfer SNF Condition: Stable Prescriptions: New ertapenem 1 gram recon soln 1 g IV Q24H 4 Days Qty: 4 0RF Continued (DME) [employer] Manager See Rx Instructions .Route .MEDSUPPLY Qty: 1 0RF Rx Instructions: As directed (DME) JESUS walker See Rx Instructions .Route .MEDSUPPLY Qty: 1 0RF Rx Instructions: As directed bisacodyl 10 mg Suppository 10 mg AR DAILY PRN (Reason: Constipation) vitamin A and D Ointment See Rx Instructions .ROUTE .COMPLEX Rx Instructions: APPLY TOPICALLY AEVERY SHIFT TO BLATERAL BUTTUCK: CLEANSE WITH SOAP AND WATER AND APPLY A AND D OINTMENT FOR SHEER PREVENTION. alprazolam [Xanax] 0.5 mg Tablet 0.5 mg PO TID PRN (Reason: Anxiety) levothyroxine 150 mcg Tablet 150 mcg PO DAILY trihexyphenidyl 2 mg Tablet 2 mg PO TID Rx Instructions: give with food (meal/snack) fluticasone propionate [Flonase Allergy Relief] 50 mcg/actuation [place],Suspension 1 mcg INTRANASAL BID white petrolatum [Vaseline] Gel 1 applic TOPICAL PRN Rx Instructions: apply to buttocks to prevent shearing insulin glargine [Basaglar KwikPen U-100 Insulin] 100 unit/mL (3 mL) Insulin Pen 15 unit SUBCUT BEDTIME Eliquis 5 mg Tablet 5 mg PO BID diphenhydramine HCl 25 mg Capsule 25 mg PO TID PRN (Reason: Itching) azelastine 137 mcg (0.1 %) [place],Non-Aerosol 2 spray INTRANASAL BID Rx Instructions: administer into each nostril tizanidine 4 mg Tablet 4 mg PO Q8H PRN (Reason: Muscle Spasm) fluoxetine [Prozac] 10 mg Capsule 10 mg PO DAILY nystatin 100,000 unit/gram Powder 1 applic TOPICAL BID Rx Instructions: to groin Wescaps 1 mg Capsule 1 cap PO DAILY oxycodone 5 mg Tablet 5 mg PO Q6H PRN (Reason: Pain) furosemide [Lasix] 40 mg Tablet 40 mg PO BID ondansetron HCl 4 mg Tablet 4 mg PO Q6H PRN (Reason: Nausea And Vomiting) loperamide [Imodium A-D] 2 mg Tablet 2 mg PO Q6H PRN (Reason: Loose Stool) metolazone 5 mg Tablet 5 mg PO QAM simvastatin 40 mg Tablet 40 mg PO BEDTIME@21 carbidopa-levodopa 25-100 mg Tablet 1 tab PO TID insulin aspart U-100 [Novolog FlexPen U-100 Insulin] 100 unit/mL (3 mL) Insulin Pen See Rx Instructions .ROUTE .COMPLEX Rx Instructions: sliding scale three times a day. IF BS LESS THAN 60, CALL MD. FOR BS 201-250=2 units 251-300=4 units 301-350=6 units 351-400=8 units call provider for bs <60 or >400 [place] 0.01 % Drops 1 drp OPHTHALMIC (EYE) BEDTIME acetaminophen 325 mg Tablet 650 mg PO Q6H omeprazole 20 mg Capsule,Delayed Release(Dr/Ec) 20 mg PO BID gabapentin 100 mg capsule 200 mg PO QPM Rx Instructions: Dose change only Discharge Orders: Discharge Order (Routine); Ordered 10/06/24 Ordered By: Suzy Morgan [facility] [Outside] Brandi Escalera MD [Primary Care Provider, Family Practice] Patient Instructions: Ertapenem (By injection) (INVanz), Cellulitis (ED), Sepsis (DC), Opioid Safety Discharge Attestations Time Spent in Discharge Care*: greater than 30 min Status at Discharge: Cognitive status at discharge: cognitively intact , Behavioral status at discharge: cooperative , Quality Metrics Clinical Quality Measures [ No reported AMI, CVA or VTE this stay] Coding Level of Care Code Acute Code for Chg Fwd Diagnoses ESRD on hemodialysis N18.6; Z99.2
== END 2024-10-06 17:38 | disposition skilled nursing facility (03) | DRG 871 ==
LOC: ER 09-29 03:08 → MEDSURG 09-29 04:16
PROVIDERS: Family Medicine; Internal Medicine; Student in an Organized Health Care Education/Training Program; Admitting Provider Internal Medicine; Emergency Provider Emergency Medicine; PCP Family Medicine; Visit Provider Student in an Organized Health Care Education/Training Program
DX: A41.9 Sepsis, unspecified organism (principal); G93.41 Metabolic encephalopathy; N18.6 End stage renal disease; N39.0 Urinary tract infection, site not specified; L03.115 Cellulitis of right lower limb; I13.0 Hypertensive heart and chronic kidney disease with heart failure and stage 1 through stage 4 chronic kidney disease, or unspecified chronic kidney disease; J96.11 Chronic respiratory failure with hypoxia; E11.40 Type 2 diabetes mellitus with diabetic neuropathy, unspecified; I25.10 Atherosclerotic heart disease of native coronary artery without angina pectoris; E11.22 Type 2 diabetes mellitus with diabetic chronic kidney disease; Z79.899 Other long term (current) drug therapy; Z89.512 Acquired absence of left leg below knee; Z79.01 Long term (current) use of anticoagulants; Z79.890 Hormone replacement therapy; Z79.4 Long term (current) use of insulin; Z88.2 Allergy status to sulfonamides; Z88.0 Allergy status to penicillin; E03.9 Hypothyroidism, unspecified; I50.9 Heart failure, unspecified; Z87.891 Personal history of nicotine dependence; G20.A1 Parkinson's disease without dyskinesia, without mention of fluctuations; Z99.2 Dependence on renal dialysis; R65.20 Severe sepsis without septic shock; I48.0 Paroxysmal atrial fibrillation; D63.1 Anemia in chronic kidney disease; Z99.81 Dependence on supplemental oxygen
CPT/HCPCS: 36415; 36416; 51702; 71045; 73630; 74176; 80053; 80069; 80202; 81001; 82550; 82962; 83605; 83735; 84100; 85007; 85025; 85027; 85610; 85651; 85730; 86140; 87040; 87077; 87086; 87150; 87186; 87205; 87426; 90935; 93005; 93306; 93971; 94664; 96365; 96367; 96372; 96375; 99285; J1335; J1630; J1644; J1815; J1885; J2185; J2270; J2405; J2543; J3370; J3475; J7030; J7050; J9999; Q3014

== ENCOUNTER → 2024-10-09 08:49 | Day surgery (SDC) | payer MEDICARE, OTHER, MEDICAID, SELFPAY ==
--- NOTE | 2024-10-09 09:50 | PICC.NOTE ---
Midline placed to right basilic vein. Referred to vascular access nurse for Midline placement due to need for IV antibiotics x 2 weeks. Risks and benefits discussed and informed consent obtained from pt. Right arm assessed with right basilic vein measuring 4.8 mm, straight, and apparent best choice for placement. Using sterile technique and MST, right basilic vein accessed x 1 stick. Mid-arm circumference measured 10 cm from right AC 30 cm. Trimmed cath 13 cm with 0 cm external length noted. Line secured with stat-lock. Insertion site covered with Biopatch and TSM. Report called to bedside nurse, Marnie, at [facility].
[2024-10-09 10:00] VITALS: BP 90/48; PULSE 81; RESP 16; TEMP 36.2; O2SAT 98
== END ==
PROVIDERS: PCP Internal Medicine; Visit Provider Student in an Organized Health Care Education/Training Program
DX: R82.71 Bacteriuria (principal); Z16.12 Extended spectrum beta lactamase (ESBL) resistance
CPT/HCPCS: 36569; C1751

== ENCOUNTER → 2024-10-28 13:47 | Outpatient (BNVA) | payer MEDICARE, OTHER, MEDICAID, SELFPAY | PROVIDERS: PCP Internal Medicine; Visit Provider Podiatrist Foot & Ankle Surgery | DX: E11.8 Type 2 diabetes mellitus with unspecified complications (principal); Z89.512 Acquired absence of left leg below knee; E11.42 Type 2 diabetes mellitus with diabetic polyneuropathy; I73.9 Peripheral vascular disease, unspecified; L97.512 Non-pressure chronic ulcer of other part of right foot with fat layer exposed; E11.621 Type 2 diabetes mellitus with foot ulcer; Z89.421 Acquired absence of other right toe(s); Z79.4 Long term (current) use of insulin | CPT/HCPCS: 99213 ==

== ENCOUNTER → 2024-11-18 09:16 | Outpatient (BNVA) | payer MEDICARE, OTHER, MEDICAID, SELFPAY | PROVIDERS: PCP Internal Medicine; Visit Provider Podiatrist Foot & Ankle Surgery | DX: E11.621 Type 2 diabetes mellitus with foot ulcer (principal); L97.512 Non-pressure chronic ulcer of other part of right foot with fat layer exposed; E11.42 Type 2 diabetes mellitus with diabetic polyneuropathy; Z89.512 Acquired absence of left leg below knee; I73.9 Peripheral vascular disease, unspecified; Z89.421 Acquired absence of other right toe(s); Z79.4 Long term (current) use of insulin | CPT/HCPCS: 99213 ==

== ENCOUNTER → 2024-12-09 09:53 | Outpatient (BNVA) | payer MEDICARE, OTHER, MEDICAID, SELFPAY | PROVIDERS: PCP Internal Medicine; Visit Provider Podiatrist Foot & Ankle Surgery | DX: Z89.512 Acquired absence of left leg below knee (principal); E11.42 Type 2 diabetes mellitus with diabetic polyneuropathy; I73.9 Peripheral vascular disease, unspecified; Z89.429 Acquired absence of other toe(s), unspecified side; L97.512 Non-pressure chronic ulcer of other part of right foot with fat layer exposed; L53.9 Erythematous condition, unspecified; Z89.421 Acquired absence of other right toe(s); Z79.4 Long term (current) use of insulin | CPT/HCPCS: 99214 ==

== ENCOUNTER → 2024-12-23 12:59 | Outpatient (BNVA) | payer MEDICARE, OTHER, MEDICAID, SELFPAY | PROVIDERS: PCP Internal Medicine; Visit Provider Podiatrist Foot & Ankle Surgery | DX: Z89.512 Acquired absence of left leg below knee (principal); E11.42 Type 2 diabetes mellitus with diabetic polyneuropathy; I73.9 Peripheral vascular disease, unspecified; E11.621 Type 2 diabetes mellitus with foot ulcer; L97.512 Non-pressure chronic ulcer of other part of right foot with fat layer exposed; I10 Essential (primary) hypertension; Z89.421 Acquired absence of other right toe(s) | CPT/HCPCS: 99213 ==

== ENCOUNTER → 2025-01-06 14:10 | Outpatient (BNVA) | payer MEDICARE, OTHER, MEDICAID, SELFPAY | PROVIDERS: PCP Internal Medicine; Visit Provider Podiatrist Foot & Ankle Surgery | DX: Z89.512 Acquired absence of left leg below knee (principal); E11.42 Type 2 diabetes mellitus with diabetic polyneuropathy; I73.9 Peripheral vascular disease, unspecified; E11.621 Type 2 diabetes mellitus with foot ulcer; L97.512 Non-pressure chronic ulcer of other part of right foot with fat layer exposed; Z89.421 Acquired absence of other right toe(s) | CPT/HCPCS: 99213 ==

== ENCOUNTER 2025-01-15 09:44 | Emergency (ER) | payer MEDICARE, OTHER, MEDICAID, SELFPAY ==
--- NOTE | 2025-01-15 09:47 | XR_ITS ---
WS: [id number] XR shoulder LT min 2V* [id number] REASON FOR EXAM: Trauma FINDINGS: Fracture of the midportion of the left clavicle with superior displacement of the proximal fracture fragment. Coracoclavicular interval maintained. Acromioclavicular joint intact. No fracture of the humerus or scapula. Glenohumeral joint space is not demonstrated on this examination as the humeral head overlaps the glenoid on all images. If there is any clinical concern for posterior glenohumeral joint dislocation a Grashey view (mediolateral oblique) view of the glenohumeral joint as well as a Y-view could be obtained. XR/XR shoulder LT min 2V* [id number] IMPRESSION: Clavicle fracture and glenohumeral findings as above.
--- NOTE | 2025-01-15 09:47 | XR_ITS ---
WS: [id number] XR sacrum coccyx min 2V [id number] REASON FOR EXAM: Trauma FINDINGS: Limited examination of the coccyx due to significant overlapping extraneous artifact. Grossly no fracture/dislocation identified. The sacrum is intact. XR/XR sacrum coccyx min 2V [id number] IMPRESSION: Limited exam with no abnormality as above.
[2025-01-15 09:50] VITALS: PULSE 76; RESP 16; TEMP 36.7; O2SAT 97; BMI 27.8
--- OUTSIDE RECORDS SUMMARY | 2025-01-15 09:52 | XMS_ITS | Patient Health Record ---
Author Organization [facility] Billing Info Address [address] [place] [id number] Care Team Providers Care Estate Conservator Name Role Phone AMINA MONIQUE, HARIS Mariano Unavailab le Reason For Referral No Information Medications Medication SIG (Take, Route, Fr equency, Duration) Notes Start Date End Date Status Estradiol Active Maxzide Active [place] Thyroid Activ e Wellbutrin Active Aspirin Active Progesterone Active Ambien Active Bimatoprost Active Glucophage Active Zocor Active Lopressor Active Prozac Active Potassium Chloride A ctive Morphine Sulfate Act charmaine Xanax Active Robaxin Active ZyrTEC Active Oxycodone HCl Active Vitamin D Active Trazodone HCl Active Social History Tobacco Use: Social History Observation Description Date Details (start date - stop date) Never Smoker NA - NA Tobacco Status: Question Answer Notes Patient is a never smoker Problems No Known Problems Plan Of Treatment No Information Insurance Providers Payer Name Payer Address Payer Phone Subscriber Number Group Number Insured Name Patient Relationship to Insured Coverage Start Date Coverage End Date [place]ARE [place] PART B [address] [facility] G[employer]SELL NUNEZ [id number] Meghna Chaudhari Self - patient is the insured FOR LIFE [facility] [address] [place], [place] [id number] [phone] [id number] Brennan Chaudhari Spouse - patient is the spouse of the insured Medical (General) History Medical History History ICD Code MIGRAINE PNEUMONIA HIGH BLOOD PRESSURE HIGH CHOLESTEROL DIABETES ARTHRITIS THYROID DISEASE NERVOUS BREAKDOWN FREQUENT INFECTIONS Surgical History Surgery Date(Month/Year) Back surgery [facility]
--- OUTSIDE RECORDS SUMMARY | 2025-01-15 09:52 | XMS_ITS | Continuity of Care Document ---
Author Organization [facility] ([facility]) Address [address] [place] [id number] Insurance Providers Payer Plan Claims Address Claims Phone Policy Number Group Number Relation Employer Guarantor Name Guarantor Guarantor Address Guarantor [place] [address], [facility] [place] [id number] tel:[phone] [id number] [employer] [employer] [place] ALL [place] [employer] [employer] LIFE ALL [facility] [address], [place] [address] tel:[phone] MEDICA RE MEDIC ARE tel:[phone] [id number] Problems Condition ICD9 code ICD10 code SNOMED code Start Date End Date S tatus Body mass index (BMI) 34.0-34.9, adult Z68.34 05/14/2024 Active 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 Z79.01 04/02/2024 Active Cognitive communication deficit R41.841 06/02/2024 Active 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 Refere nce Range Blood chemistry[[id number]] Glucose [Mass/volume] in Serum or Plasma [2345-7] 01/15/2025 10:04 AM 102 mg/dL N Blood chemistry[[id number]] Glucose [Mass/volume] in Serum or Plasma [2345-7] 01/14/2025 10:40 AM 128 mg/dL N Blood chemistry[[id number]] Glucose [Mass/volume] in Serum or Plasma [2345-7] 01/14/2025 10:01 AM 107 mg/dL N Blood chemistry[[id number]] Glucose [Mass/volume] in Serum or Plasma [2345-7] 01/13/2025 05:10 PM 99 mg/dL N Blood chemistry[[id number]] Glucose [Mass/volume] in Serum or Plasma [2345-7] 01/13/2025 09:26 AM 107 mg/dL N Blood chemistry[[id number]] Glucose [Mass/volume] in Serum or Plasma [2345-7] 01/13/2025 10:25 AM 80 mg/dL N Blood chemistry[[id number]] Glucose [Mass/volume] in Serum or Plasma [2345-7] 01/12/2025 04:47 PM 107 mg/dL N Blood chemistry[[id number]] Glucose [Mass/volume] in Serum or Plasma [2345-7] 01/12/2025 10:00 AM 101 mg/dL N Blood chemistry[[id number]] Glucose [Mass/volume] in Serum or Plasma [2345-7] 01/12/2025 09:47 AM 93 mg/dL N Blood chemistry[[id number]] Glucose [Mass/volume] in Serum or Plasma [2345-7] 01/11/2025 05:01 PM 127 mg/dL N Blood chemistry[[id number]] Glucose [Mass/volume] in Serum or Plasma [2345-7] 01/11/2025 09:30 AM 107 mg/dL N Blood chemistry[[id number]] Glucose [Mass/volume] in Serum or Plasma [2345-7] 01/11/2025 12:07 PM 102 mg/dL N Blood chemistry[[id number]] Glucose [Mass/volume] in Serum or Plasma [2345-7] 01/10/2025 05:55 PM 161 mg/dL N Blood chemistry[[id number]] Glucose [Mass/volume] in Serum or Plasma [2345-7] 01/10/2025 08:53 AM 125 mg/dL N Blood chemistry[[id number]] Glucose [Mass/volume] in Serum or Plasma [2345-7] 01/10/2025 12:46 PM 95 mg/dL N Blood chemistry[[id number]] Glucose [Mass/volume] in Serum or Plasma [2345-7] 01/09/2025 10:26 AM 139 mg/dL N Blood chemistry[[id number]] Glucose [Mass/volume] in Serum or Plasma [2345-7] 01/09/2025 05:08 PM 108 mg/dL N Blood chemistry[[id number]] Glucose [Mass/volume] in Serum or Plasma [2345-7] 01/09/2025 10:03 AM 129 mg/dL N Blood chemistry[[id number]] Glucose [Mass/volume] in Serum or Plasma [2345-7] 01/08/2025 05:50 PM 115 mg/dL N Blood chemistry[[id number]] Glucose [Mass/volume] in Serum or Plasma [2345-7] 01/08/2025 10:21 AM 97 mg/dL N Blood chemistry[[id number]] Glucose [Mass/volume] in Serum or Plasma [2345-7] 01/08/2025 12:14 PM 100 mg/dL N Blood chemistry[[id number]] Glucose [Mass/volume] in Serum or Plasma [2345-7] 01/07/2025 10:45 AM 125 mg/dL N Blood chemistry[[id number]] Glucose [Mass/volume] in Serum or Plasma [2345-7] 01/07/2025 05:26 PM 108 mg/dL N Blood chemistry[[id number]] Glucose [Mass/volume] in Serum or Plasma [2345-7] 01/07/2025 10:03 AM 120 mg/dL N Blood chemistry[[id number]] Glucose [Mass/volume] in Serum or Plasma [2345-7] 01/06/2025 04:46 PM 124 mg/dL N Blood chemistry[[id number]] Glucose [Mass/volume] in Serum or Plasma [2345-7] 01/06/2025 09:27 AM 143 mg/dL N Blood chemistry[[id number]] Glucose [Mass/volume] in Serum or Plasma [2345-7] 01/06/2025 11:32 AM 103 mg/dL N Blood chemistry[[id number]] Glucose [Mass/volume] in Serum or Plasma [2345-7] 01/05/2025 05:42 PM 107 mg/dL N Blood chemistry[[id number]] Glucose [Mass/volume] in Serum or Plasma [2345-7] 01/05/2025 09:56 AM 108 mg/dL N Blood chemistry[[id number]] Glucose [Mass/volume] in Serum or Plasma [2345-7] 01/05/2025 10:09 AM 87 mg/dL N Blood chemistry[[id number]] Glucose [Mass/volume] in Serum or Plasma [2345-7] 01/04/2025 04:58 PM 130 mg/dL N Blood chemistry[[id number]] Glucose [Mass/volume] in Serum or Plasma [2345-7] 01/04/2025 10:19 AM 109 mg/dL N Blood chemistry[[id number]] Glucose [Mass/volume] in Serum or Plasma [2345-7] 01/04/2025 10:00 AM 102 mg/dL N Blood chemistry[[id number]] Glucose [Mass/volume] in Serum or Plasma [2345-7] 01/03/2025 04:41 PM 114 mg/dL N Blood chemistry[[id number]] Glucose [Mass/volume] in Serum or Plasma [2345-7] 01/03/2025 10:37 AM 109 mg/dL N Blood chemistry[[id number]] Glucose [Mass/volume] in Serum or Plasma [2345-7] 01/03/2025 10:00 AM 118 mg/dL N Blood chemistry[[id number]] Glucose [Mass/volume] in Serum or Plasma [2345-7] 01/02/2025 10:21 AM 162 mg/dL N Blood chemistry[[id number]] Glucose [Mass/volume] in Serum or Plasma [2345-7] 01/02/2025 05:30 PM 97 mg/dL N Blood chemistry[[id number]] Glucose [Mass/volume] in Serum or Plasma [2345-7] 01/02/2025 10:12 AM 96 mg/dL N Blood chemistry[[id number]] Glucose [Mass/volume] in Serum or Plasma [2345-7] 01/01/2025 04:50 PM 107 mg/dL N Blood chemistry[[id number]] Glucose [Mass/volume] in Serum or Plasma [2345-7] 01/01/2025 10:04 AM 119 mg/dL N Blood chemistry[[id number]] Glucose [Mass/volume] in Serum or Plasma [2345-7] 01/01/2025 09:51 AM 108 mg/dL N Blood chemistry[[id number]] Glucose [Mass/volume] in Serum or Plasma [2345-7] 12/31/2024 08:58 AM 78 mg/dL N Blood chemistry[[id number]] Glucose [Mass/volume] in Serum or Plasma [2345-7] 12/31/2024 08:53 AM 138 mg/dL N Blood chemistry[[id number]] Glucose [Mass/volume] in Serum or Plasma [2345-7] 12/31/2024 06:32 AM 127 mg/dL N Blood chemistry[[id number]] Glucose [Mass/volume] in Serum or Plasma [2345-7] 12/30/2024 04:01 PM 232 mg/dL N Blood chemistry[[id number]] Glucose [Mass/volume] in Serum or Plasma [2345-7] 12/30/2024 10:48 AM 125 mg/dL N Blood chemistry[[id number]] Glucose [Mass/volume] in Serum or Plasma [2345-7] 12/30/2024 10:09 AM 101 mg/dL N Blood chemistry[[id number]] Glucose [Mass/volume] in Serum or Plasma [2345-7] 12/29/2024 05:18 PM 132 mg/dL N Blood chemistry[[id number]] Glucose [Mass/volume] in Serum or Plasma [2345-7] 12/29/2024 10:07 AM 81 mg/dL N Blood chemistry[[id number]] Glucose [Mass/volume] in Serum or Plasma [2345-7] 12/29/2024 09:31 AM 131 mg/dL N Blood chemistry[[id number]] Glucose [Mass/volume] in Serum or Plasma [2345-7] 12/28/2024 04:40 PM 140 mg/dL N Blood chemistry[[id number]] Glucose [Mass/volume] in Serum or Plasma [2345-7] 12/28/2024 12:40 PM 102 mg/dL N Blood chemistry[[id number]] Glucose [Mass/volume] in Serum or Plasma [2345-7] 12/28/2024 10:10 AM 117 mg/dL N Blood chemistry[[id number]] Glucose [Mass/volume] in Serum or Plasma [2345-7] 12/27/2024 05:07 PM 161 mg/dL N Blood chemistry[[id number]] Glucose [Mass/volume] in Serum or Plasma [5-7] 12/27/2024 10:26 AM 103 mg/dL N Blood chemistry[[id number]] Glucose [Mass/volume] in Serum or Plasma [5-7] 12/27/2024 08:33 AM 173 mg/dL N Blood chemistry[[id number]] Glucose [Mass/volume] in Serum or Plasma [2345-7] 12/26/2024 05:17 PM 116 mg/dL N Blood chemistry[[id number]] Glucose [Mass/volume] in Serum or Plasma [5-7] 12/26/2024 10:36 AM 223 mg/dL N Blood chemistry[[id number]] Glucose [Mass/volume] in Serum or Plasma [5-7] 12/26/2024 10:04 AM 97 mg/dL N Blood chemistry[[id number]] Glucose [Mass/volume] in Serum or Plasma [5-7] 12/25/2024 04:25 PM 156 mg/dL N Blood chemistry[[id number]] Glucose [Mass/volume] in Serum or Plasma [2345-7] 12/25/2024 10:16 AM 102 mg/dL N Blood chemistry[[id number]] Glucose [Mass/volume] in Serum or Plasma [5-7] 12/25/2024 09:46 AM 128 mg/dL N Blood chemistry[[id number]] Glucose [Mass/volume] in Serum or Plasma [5-7] 12/24/2024 05:19 PM 122 mg/dL N Blood chemistry[[id number]] Glucose [Mass/volume] in Serum or Plasma [5-7] 12/24/2024 10:07 AM 102 mg/dL N Blood chemistry[[id number]] Glucose [Mass/volume] in Serum or Plasma [2345-7] 12/24/2024 09:46 AM 171 mg/dL N Blood chemistry[[id number]] Glucose [Mass/volume] in Serum or Plasma [2345-7] 12/23/2024 05:28 PM 91 mg/dL N Blood chemistry[[id number]] Glucose [Mass/volume] in Serum or Plasma [2345-7] 12/23/2024 01:06 PM 89 mg/dL N Blood chemistry[[id number]] Glucose [Mass/volume] in Serum or Plasma [2345-7] 12/23/2024 10:33 AM 99 mg/dL N Blood chemistry[[id number]] Glucose [Mass/volume] in Serum or Plasma [2345-7] 12/22/2024 10:37 AM 124 mg/dL N Blood chemistry[[id number]] Glucose [Mass/volume] in Serum or Plasma [2345-7] 12/22/2024 09:37 AM 150 mg/dL N Blood chemistry[[id number]] Glucose [Mass/volume] in Serum or Plasma [2345-7] 12/22/2024 06:56 AM 110 mg/dL N Blood chemistry[[id number]] Glucose [Mass/volume] in Serum or Plasma [2345-7] 12/21/2024 04:30 PM 161 mg/dL N Blood chemistry[[id number]] Glucose [Mass/volume] in Serum or Plasma [2345-7] 12/21/2024 12:00 PM 100 mg/dL N Blood chemistry[[id number]] Glucose [Mass/volume] in Serum or Plasma [2345-7] 12/21/2024 10:12 AM 132 mg/dL N Blood chemistry[[id number]] Glucose [Mass/volume] in Serum or Plasma [2345-7] 12/20/2024 05:03 PM 98 mg/dL N Blood chemistry[[id number]] Glucose [Mass/volume] in Serum or Plasma [2345-7] 12/20/2024 12:57 PM 241 mg/dL N Blood chemistry[[id number]] Glucose [Mass/volume] in Serum or Plasma [2345-7] 12/20/2024 10:00 AM 92 mg/dL N Blood chemistry[[id number]] Glucose [Mass/volume] in Serum or Plasma [2345-7] 12/19/2024 09:35 AM 120 mg/dL N Blood chemistry[[id number]] Glucose [Mass/volume] in Serum or Plasma [2345-7] 12/18/2024 04:46 PM 191 mg/dL N Blood chemistry[[id number]] Glucose [Mass/volume] in Serum or Plasma [5-7] 12/18/2024 01:34 PM 130 mg/dL N Blood chemistry[[id number]] Glucose [Mass/volume] in Serum or Plasma [5-7] 12/17/2024 05:01 PM 112 mg/dL N Blood chemistry[[id number]] Glucose [Mass/volume] in Serum or Plasma [5-7] 12/17/2024 10:59 AM 159 mg/dL N Blood chemistry[[id number]] Glucose [Mass/volume] in Serum or Plasma [5-7] 12/17/2024 10:15 AM 117 mg/dL N Blood chemistry[[id number]] Glucose [Mass/volume] in Serum or Plasma [5-7] 12/16/2024 12:47 PM 120 mg/dL N Blood chemistry[[id number]] Glucose [Mass/volume] in Serum or Plasma [5-7] 12/16/2024 10:23 AM 140 mg/dL N Blood chemistry[[id number]] Glucose [Mass/volume] in Serum or Plasma [2345-7] 12/16/2024 06:43 AM 136 mg/dL N Blood chemistry[[id number]] Glucose [Mass/volume] in Serum or Plasma [2345-7] 12/15/2024 05:34 PM 131 mg/dL N Blood chemistry[[id number]] Glucose [Mass/volume] in Serum or Plasma [5-7] 12/15/2024 10:12 AM 115 mg/dL N Blood chemistry[[id number]] Glucose [Mass/volume] in Serum or Plasma [5-7] 12/15/2024 09:47 AM 114 mg/dL N Blood chemistry[[id number]] Glucose [Mass/volume] in Serum or Plasma [2345-7] 12/14/2024 04:16 PM 143 mg/dL N Blood chemistry[[id number]] Glucose [Mass/volume] in Serum or Plasma [2345-7] 12/14/2024 10:12 AM 104 mg/dL N Blood chemistry[[id number]] Glucose [Mass/volume] in Serum or Plasma [2345-7] 12/14/2024 09:02 AM 150 mg/dL N Blood chemistry[[id number]] Glucose [Mass/volume] in Serum or Plasma [2345-7] 12/13/2024 10:29 AM 211 mg/dL N Blood chemistry[[id number]] Glucose [Mass/volume] in Serum or Plasma [2345-7] 12/13/2024 10:15 AM 107 mg/dL N Blood chemistry[[id number]] Glucose [Mass/volume] in Serum or Plasma [2345-7] 12/13/2024 06:51 AM 121 mg/dL N Blood chemistry[[id number]] Glucose [Mass/volume] in Serum or Plasma [2345-7] 12/12/2024 05:54 PM 101 mg/dL N Blood chemistry[[id number]] Glucose [Mass/volume] in Serum or Plasma [2345-7] 12/12/2024 10:16 AM 161 mg/dL N Blood chemistry[[id number]] Glucose [Mass/volume] in Serum or Plasma [2345-7] 12/12/2024 10:08 AM 117 mg/dL N Blood chemistry[[id number]] Glucose [Mass/volume] in Serum or Plasma [2345-7] 12/11/2024 04:36 PM 155 mg/dL N Blood chemistry[[id number]] Glucose [Mass/volume] in Serum or Plasma [2345-7] 12/11/2024 10:06 AM 101 mg/dL N Blood chemistry[[id number]] Glucose [Mass/volume] in Serum or Plasma [2345-7] 12/11/2024 09:35 AM 116 mg/dL N Blood chemistry[[id number]] Glucose [Mass/volume] in Serum or Plasma [2345-7] 12/10/2024 10:36 AM 112 mg/dL N Blood chemistry[[id number]] Glucose [Mass/volume] in Serum or Plasma [2345-7] 12/10/2024 09:55 AM 328 mg/dL N Blood chemistry[[id number]] Glucose [Mass/volume] in Serum or Plasma [2345-7] 12/10/2024 06:26 AM 149 mg/dL N Blood chemistry[[id number]] Glucose [Mass/volume] in Serum or Plasma [2345-7] 12/09/2024 10:26 AM 130 mg/dL N Blood chemistry[[id number]] Glucose [Mass/volume] in Serum or Plasma [2345-7] 12/09/2024 10:05 AM 85 mg/dL N Blood chemistry[[id number]] Glucose [Mass/volume] in Serum or Plasma [2345-7] 12/09/2024 06:50 AM 122 mg/dL N Blood chemistry[[id number]] Glucose [Mass/volume] in Serum or Plasma [2345-7] 12/08/2024 05:03 PM 71 mg/dL N Blood chemistry[[id number]] Glucose [Mass/volume] in Serum or Plasma [2345-7] 12/08/2024 10:26 AM 145 mg/dL N Blood chemistry[[id number]] Glucose [Mass/volume] in Serum or Plasma [2345-7] 12/08/2024 10:15 AM 119 mg/dL N Blood chemistry[[id number]] Glucose [Mass/volume] in Serum or Plasma [2345-7] 12/07/2024 05:00 PM 169 mg/dL N Blood chemistry[[id number]] Glucose [Mass/volume] in Serum or Plasma [2345-7] 12/07/2024 10:36 AM 101 mg/dL N Blood chemistry[[id number]] Glucose [Mass/volume] in Serum or Plasma [2345-7] 12/07/2024 09:26 AM 156 mg/dL N Blood chemistry[[id number]] Glucose [Mass/volume] in Serum or Plasma [2345-7] 12/06/2024 10:17 AM 87 mg/dL N Blood chemistry[[id number]] Glucose [Mass/volume] in Serum or Plasma [2345-7] 12/06/2024 09:05 AM 137 mg/dL N Blood chemistry[[id number]] Glucose [Mass/volume] in Serum or Plasma [2345-7] 12/06/2024 06:12 AM 159 mg/dL N Blood chemistry[[id number]] Glucose [Mass/volume] in Serum or Plasma [2345-7] 12/05/2024 05:46 PM 99 mg/dL N Blood chemistry[[id number]] Glucose [Mass/volume] in Serum or Plasma [2345-7] 12/05/2024 10:12 AM 120 mg/dL N Blood chemistry[[id number]] Glucose [Mass/volume] in Serum or Plasma [2345-7] 12/05/2024 09:25 AM 141 mg/dL N Blood chemistry[[id number]] Glucose [Mass/volume] in Serum or Plasma [2345-7] 12/04/2024 04:02 PM 134 mg/dL N Blood chemistry[[id number]] Glucose [Mass/volume] in Serum or Plasma [2345-7] 12/04/2024 10:53 AM 122 mg/dL N Blood chemistry[[id number]] Glucose [Mass/volume] in Serum or Plasma [2345-7] 12/04/2024 10:17 AM 103 mg/dL N Blood chemistry[[id number]] Glucose [Mass/volume] in Serum or Plasma [2345-7] 12/03/2024 05:21 PM 134 mg/dL N Blood chemistry[[id number]] Glucose [Mass/volume] in Serum or Plasma [2345-7] 12/03/2024 10:00 AM 93 mg/dL N Blood chemistry[[id number]] Glucose [Mass/volume] in Serum or Plasma [2345-7] 12/03/2024 08:29 AM 187 mg/dL N Blood chemistry[[id number]] Glucose [Mass/volume] in Serum or Plasma [2345-7] 12/02/2024 05:23 PM 124 mg/dL N Blood chemistry[[id number]] Glucose [Mass/volume] in Serum or Plasma [2345-7] 12/02/2024 10:12 AM 96 mg/dL N Blood chemistry[[id number]] Glucose [Mass/volume] in Serum or Plasma [2345-7] 12/02/2024 09:51 AM 95 mg/dL N Blood chemistry[[id number]] Glucose [Mass/volume] in Serum or Plasma [2345-7] 12/01/2024 09:34 AM 224 mg/dL N Glucose [Mass/volume] in Serum or Plasma [2345-7] 12/01/2024 09:34 AM 81 mg/dL N Blood chemistry[[id number]] Glucose [Mass/volume] in Serum or Plasma [2345-7] 11/30/2024 03:40 PM 183 mg/dL N Blood chemistry[[id number]] Glucose [Mass/volume] in Serum or Plasma [2345-7] 11/30/2024 01:19 PM 125 mg/dL N Blood chemistry[[id number]] Glucose [Mass/volume] in Serum or Plasma [2345-7] 11/30/2024 10:34 AM 133 mg/dL N Blood chemistry[[id number]] Glucose [Mass/volume] in Serum or Plasma [2345-7] 11/29/2024 10:01 AM 89 mg/dL N Blood chemistry[[id number]] Glucose [Mass/volume] in Serum or Plasma [2345-7] 11/29/2024 08:42 AM 195 mg/dL N Blood chemistry[[id number]] Glucose [Mass/volume] in Serum or Plasma [2345-7] 11/29/2024 06:23 AM 125 mg/dL N Blood chemistry[[id number]] Glucose [Mass/volume] in Serum or Plasma [2345-7] 11/28/2024 05:01 PM 88 mg/dL N Blood chemistry[[id number]] Glucose [Mass/volume] in Serum or Plasma [2345-7] 11/28/2024 10:25 AM 142 mg/dL N Blood chemistry[[id number]] Glucose [Mass/volume] in Serum or Plasma [2345-7] 11/28/2024 10:04 AM 107 mg/dL N Blood chemistry[[id number]] Glucose [Mass/volume] in Serum or Plasma [2345-7] 11/27/2024 05:01 PM 131 mg/dL N Blood chemistry[[id number]] Glucose [Mass/volume] in Serum or Plasma [2345-7] 11/27/2024 10:00 AM 106 mg/dL N Blood chemistry[[id number]] Glucose [Mass/volume] in Serum or Plasma [2345-7] 11/27/2024 09:07 AM 125 mg/dL N Blood chemistry[[id number]] Glucose [Mass/volume] in Serum or Plasma [2345-7] 11/26/2024 10:10 AM 120 mg/dL N Blood chemistry[[id number]] Glucose [Mass/volume] in Serum or Plasma [2345-7] 11/26/2024 09:55 AM 125 mg/dL N Blood chemistry[[id number]] Glucose [Mass/volume] in Serum or Plasma [2345-7] 11/25/2024 10:16 AM 85 mg/dL N Blood chemistry[[id number]] Glucose [Mass/volume] in Serum or Plasma [2345-7] 11/25/2024 09:51 AM 165 mg/dL N Blood chemistry[[id number]] Glucose [Mass/volume] in Serum or Plasma [2345-7] 11/25/2024 07:25 AM 103 mg/dL N Blood chemistry[[id number]] Glucose [Mass/volume] in Serum or Plasma [2345-7] 11/24/2024 05:47 PM 101 mg/dL N Blood chemistry[[id number]] Glucose [Mass/volume] in Serum or Plasma [2345-7] 11/24/2024 11:34 AM 188 mg/dL N Blood chemistry[[id number]] Glucose [Mass/volume] in Serum or Plasma [2345-7] 11/24/2024 11:33 AM 157 mg/dL N Blood chemistry[[id number]] Glucose [Mass/volume] in Serum or Plasma [2345-7] 11/24/2024 09:40 AM 53 mg/dL N Blood chemistry[[id number]] Glucose [Mass/volume] in Serum or Plasma [2345-7] 11/24/2024 09:17 AM 94 mg/dL N Blood chemistry[[id number]] Glucose [Mass/volume] in Serum or Plasma [2345-7] 11/23/2024 03:27 PM 232 mg/dL N Blood chemistry[[id number]] Glucose [Mass/volume] in Serum or Plasma [2345-7] 11/23/2024 10:07 AM 105 mg/dL N Blood chemistry[[id number]] Glucose [Mass/volume] in Serum or Plasma [2345-7] 11/23/2024 10:05 AM 91 mg/dL N Blood chemistry[[id number]] Glucose [Mass/volume] in Serum or Plasma [2345-7] 11/22/2024 03:27 PM 316 mg/dL N Blood chemistry[[id number]] Glucose [Mass/volume] in Serum or Plasma [2345-7] 11/22/2024 10:03 AM 113 mg/dL N Blood chemistry[[id number]] Glucose [Mass/volume] in Serum or Plasma [2345-7] 11/22/2024 08:50 AM 118 mg/dL N Blood chemistry[[id number]] Glucose [Mass/volume] in Serum or Plasma [2345-7] 11/21/2024 05:32 PM 85 mg/dL N Blood chemistry[[id number]] Glucose [Mass/volume] in Serum or Plasma [2345-7] 11/21/2024 10:09 AM 83 mg/dL N Blood chemistry[[id number]] Glucose [Mass/volume] in Serum or Plasma [2345-7] 11/21/2024 09:44 AM 193 mg/dL N Blood chemistry[[id number]] Glucose [Mass/volume] in Serum or Plasma [2345-7] 11/20/2024 05:28 PM 148 mg/dL N Blood chemistry[[id number]] Glucose [Mass/volume] in Serum or Plasma [2345-7] 11/20/2024 10:13 AM 109 mg/dL N Blood chemistry[[id number]] Glucose [Mass/volume] in Serum or Plasma [2345-7] 11/20/2024 08:51 AM 130 mg/dL N Blood chemistry[[id number]] Glucose [Mass/volume] in Serum or Plasma [2345-7] 11/19/2024 10:16 AM 109 mg/dL N Blood chemistry[[id number]] Glucose [Mass/volume] in Serum or Plasma [2345-7] 11/19/2024 07:39 AM 121 mg/dL N Blood chemistry[[id number]] Glucose [Mass/volume] in Serum or Plasma [2345-7] 11/18/2024 05:09 PM 99 mg/dL N Blood chemistry[[id number]] Glucose [Mass/volume] in Serum or Plasma [2345-7] 11/18/2024 01:15 PM 89 mg/dL N Blood chemistry[[id number]] Glucose [Mass/volume] in Serum or Plasma [2345-7] 11/18/2024 10:29 AM 167 mg/dL N Blood chemistry[[id number]] Glucose [Mass/volume] in Serum or Plasma [2345-7] 11/17/2024 05:26 PM 93 mg/dL N Blood chemistry[[id number]] Glucose [Mass/volume] in Serum or Plasma [2345-7] 11/17/2024 10:00 AM 88 mg/dL N Blood chemistry[[id number]] Glucose [Mass/volume] in Serum or Plasma [2345-7] 11/17/2024 09:56 AM 266 mg/dL N Blood chemistry[[id number]] Glucose [Mass/volume] in Serum or Plasma [2345-7] 11/16/2024 05:45 PM 105 mg/dL N Blood chemistry[[id number]] Glucose [Mass/volume] in Serum or Plasma [2345-7] 11/16/2024 10:02 AM 82 mg/dL N Blood chemistry[[id number]] Glucose [Mass/volume] in Serum or Plasma [2345-7] 11/16/2024 08:44 AM 118 mg/dL N Blood chemistry[[id number]] Glucose [Mass/volume] in Serum or Plasma [2345-7] 11/15/2024 05:12 PM 121 mg/dL N Blood chemistry[[id number]] Glucose [Mass/volume] in Serum or Plasma [2345-7] 11/15/2024 10:18 AM 87 mg/dL N Blood chemistry[[id number]] Glucose [Mass/volume] in Serum or Plasma [2345-7] 11/15/2024 08:19 AM 123 mg/dL N Blood chemistry[[id number]] Glucose [Mass/volume] in Serum or Plasma [2345-7] 11/14/2024 05:21 PM 98 mg/dL N Blood chemistry[[id number]] Glucose [Mass/volume] in Serum or Plasma [2345-7] 11/14/2024 10:33 AM 138 mg/dL N Blood chemistry[[id number]] Glucose [Mass/volume] in Serum or Plasma [2345-7] 11/14/2024 10:00 AM 77 mg/dL N Blood chemistry[[id number]] Glucose [Mass/volume] in Serum or Plasma [2345-7] 11/13/2024 03:59 PM 189 mg/dL N Blood chemistry[[id number]] Glucose [Mass/volume] in Serum or Plasma [2345-7] 11/13/2024 12:16 PM 99 mg/dL N Blood chemistry[[id number]] Glucose [Mass/volume] in Serum or Plasma [2345-7] 11/13/2024 09:28 AM 123 mg/dL N Blood chemistry[[id number]] Glucose [Mass/volume] in Serum or Plasma [2345-7] 11/12/2024 05:02 PM 73 mg/dL N Blood chemistry[[id number]] Glucose [Mass/volume] in Serum or Plasma [2345-7] 11/12/2024 09:52 AM 153 mg/dL N Blood chemistry[[id number]] Glucose [Mass/volume] in Serum or Plasma [2345-7] 11/11/2024 04:51 PM 102 mg/dL N Blood chemistry[[id number]] Glucose [Mass/volume] in Serum or Plasma [2345-7] 11/11/2024 10:03 AM 89 mg/dL N Blood chemistry[[id number]] Glucose [Mass/volume] in Serum or Plasma [2345-7] 11/11/2024 09:27 AM 131 mg/dL N Blood chemistry[[id number]] Glucose [Mass/volume] in Serum or Plasma [2345-7] 11/10/2024 04:52 PM 99 mg/dL N Blood chemistry[[id number]] Glucose [Mass/volume] in Serum or Plasma [2345-7] 11/10/2024 11:07 AM 119 mg/dL N Blood chemistry[[id number]] Glucose [Mass/volume] in Serum or Plasma [2345-7] 11/09/2024 05:16 PM 171 mg/dL N Blood chemistry[[id number]] Glucose [Mass/volume] in Serum or Plasma [2345-7] 11/09/2024 10:06 AM 91 mg/dL N Blood chemistry[[id number]] Glucose [Mass/volume] in Serum or Plasma [2345-7] 11/09/2024 09:06 AM 161 mg/dL N Blood chemistry[[id number]] Glucose [Mass/volume] in Serum or Plasma [2345-7] 11/08/2024 05:17 PM 160 mg/dL N Blood chemistry[[id number]] Glucose [Mass/volume] in Serum or Plasma [2345-7] 11/08/2024 12:56 PM 137 mg/dL N Blood chemistry[[id number]] Glucose [Mass/volume] in Serum or Plasma [2345-7] 11/08/2024 11:08 AM 161 mg/dL N Blood chemistry[[id number]] Glucose [Mass/volume] in Serum or Plasma [2345-7] 11/07/2024 04:48 PM 92 mg/dL N Blood chemistry[[id number]] Glucose [Mass/volume] in Serum or Plasma [2345-7] 11/07/2024 10:00 AM 143 mg/dL N Blood chemistry[[id number]] Glucose [Mass/volume] in Serum or Plasma [2345-7] 11/07/2024 09:15 AM 237 mg/dL N Blood chemistry[[id number]] Glucose [Mass/volume] in Serum or Plasma [2345-7] 11/06/2024 04:41 PM 103 mg/dL N Blood chemistry[[id number]] Glucose [Mass/volume] in Serum or Plasma [2345-7] 11/06/2024 10:44 AM 103 mg/dL N Blood chemistry[[id number]] Glucose [Mass/volume] in Serum or Plasma [2345-7] 11/06/2024 10:05 AM 106 mg/dL N Blood chemistry[[id number]] Glucose [Mass/volume] in Serum or Plasma [2345-7] 11/05/2024 09:59 AM 94 mg/dL N Blood chemistry[[id number]] Glucose [Mass/volume] in Serum or Plasma [2345-7] 11/05/2024 09:25 AM 196 mg/dL N Blood chemistry[[id number]] Glucose [Mass/volume] in Serum or Plasma [2345-7] 11/04/2024 05:16 PM 98 mg/dL N Blood chemistry[[id number]] Glucose [Mass/volume] in Serum or Plasma [2345-7] 11/04/2024 10:02 AM 83 mg/dL N Blood chemistry[[id number]] Glucose [Mass/volume] in Serum or Plasma [2345-7] 11/04/2024 08:24 AM 195 mg/dL N Blood chemistry[[id number]] Glucose [Mass/volume] in Serum or Plasma [2345-7] 11/03/2024 05:13 PM 87 mg/dL N Blood chemistry[[id number]] Glucose [Mass/volume] in Serum or Plasma [2345-7] 11/03/2024 10:08 AM 112 mg/dL N Blood chemistry[[id number]] Glucose [Mass/volume] in Serum or Plasma [2345-7] 11/03/2024 09:46 AM 152 mg/dL N Blood chemistry[[id number]] Glucose [Mass/volume] in Serum or Plasma [2345-7] 11/02/2024 05:37 PM 104 mg/dL N Blood chemistry[[id number]] Glucose [Mass/volume] in Serum or Plasma [2345-7] 11/02/2024 12:47 PM 91 mg/dL N Blood chemistry[[id number]] Glucose [Mass/volume] in Serum or Plasma [2345-7] 11/02/2024 10:55 AM 111 mg/dL N Blood chemistry[[id number]] Glucose [Mass/volume] in Serum or Plasma [2345-7] 11/01/2024 05:49 PM 145 mg/dL N Blood chemistry[[id number]] Glucose [Mass/volume] in Serum or Plasma [2345-7] 11/01/2024 12:03 PM 102 mg/dL N Blood chemistry[[id number]] Glucose [Mass/volume] in Serum or Plasma [2345-7] 10/31/2024 05:43 PM 102 mg/dL N Blood chemistry[[id number]] Glucose [Mass/volume] in Serum or Plasma [2345-7] 10/31/2024 10:31 AM 133 mg/dL N Blood chemistry[[id number]] Glucose [Mass/volume] in Serum or Plasma [2345-7] 10/31/2024 10:12 AM 103 mg/dL N Blood chemistry[[id number]] Glucose [Mass/volume] in Serum or Plasma [2345-7] 10/30/2024 04:31 PM 83 mg/dL N Blood chemistry[[id number]] Glucose [Mass/volume] in Serum or Plasma [2345-7] 10/30/2024 10:19 AM 120 mg/dL N Blood chemistry[[id number]] Glucose [Mass/volume] in Serum or Plasma [2345-7] 10/30/2024 10:08 AM 77 mg/dL N Blood chemistry[[id number]] Glucose [Mass/volume] in Serum or Plasma [2345-7] 10/29/2024 05:32 PM 110 mg/dL N Blood chemistry[[id number]] Glucose [Mass/volume] in Serum or Plasma [2345-7] 10/29/2024 10:20 AM 100 mg/dL N Blood chemistry[[id number]] Glucose [Mass/volume] in Serum or Plasma [2345-7] 10/29/2024 09:11 AM 135 mg/dL N Blood chemistry[[id number]] Glucose [Mass/volume] in Serum or Plasma [2345-7] 10/28/2024 04:30 PM 199 mg/dL N Blood chemistry[[id number]] Glucose [Mass/volume] in Serum or Plasma [2345-7] 10/28/2024 10:14 AM 104 mg/dL N Blood chemistry[[id number]] Glucose [Mass/volume] in Serum or Plasma [2345-7] 10/28/2024 09:23 AM 133 mg/dL N Blood chemistry[[id number]] Glucose [Mass/volume] in Serum or Plasma [2345-7] 10/27/2024 05:01 PM 103 mg/dL N Blood chemistry[[id number]] Glucose [Mass/volume] in Serum or Plasma [2345-7] 10/27/2024 10:06 AM 97 mg/dL N Blood chemistry[[id number]] Glucose [Mass/volume] in Serum or Plasma [2345-7] 10/27/2024 09:40 AM 123 mg/dL N Blood chemistry[[id number]] Glucose [Mass/volume] in Serum or Plasma [2345-7] 10/26/2024 05:08 PM 151 mg/dL N Blood chemistry[[id number]] Glucose [Mass/volume] in Serum or Plasma [2345-7] 10/26/2024 10:01 AM 81 mg/dL N Blood chemistry[[id number]] Glucose [Mass/volume] in Serum or Plasma [2345-7] 10/26/2024 09:54 AM 146 mg/dL N Blood chemistry[[id number]] Glucose [Mass/volume] in Serum or Plasma [2345-7] 10/25/2024 10:56 AM 131 mg/dL N Blood chemistry[[id number]] Glucose [Mass/volume] in Serum or Plasma [2345-7] 10/25/2024 10:20 AM 98 mg/dL N Blood chemistry[[id number]] Glucose [Mass/volume] in Serum or Plasma [2345-7] 10/25/2024 06:32 AM 114 mg/dL N Blood chemistry[[id number]] Glucose [Mass/volume] in Serum or Plasma [2345-7] 10/24/2024 05:13 PM 109 mg/dL N Blood chemistry[[id number]] Glucose [Mass/volume] in Serum or Plasma [2345-7] 10/24/2024 10:38 AM 157 mg/dL N Blood chemistry[[id number]] Glucose [Mass/volume] in Serum or Plasma [2345-7] 10/24/2024 09:55 AM 92 mg/dL N Blood chemistry[[id number]] Glucose [Mass/volume] in Serum or Plasma [2345-7] 10/23/2024 10:13 AM 119 mg/dL N Blood chemistry[[id number]] Glucose [Mass/volume] in Serum or Plasma [2345-7] 10/23/2024 08:56 AM 95 mg/dL N Blood chemistry[[id number]] Glucose [Mass/volume] in Serum or Plasma [2345-7] 10/22/2024 05:40 PM 89 mg/dL N Blood chemistry[[id number]] Glucose [Mass/volume] in Serum or Plasma [2345-7] 10/22/2024 10:41 AM 134 mg/dL N Blood chemistry[[id number]] Glucose [Mass/volume] in Serum or Plasma [2345-7] 10/22/2024 10:16 AM 100 mg/dL N Blood chemistry[[id number]] Glucose [Mass/volume] in Serum or Plasma [2345-7] 10/21/2024 04:20 PM 181 mg/dL N Blood chemistry[[id number]] Glucose [Mass/volume] in Serum or Plasma [2345-7] 10/21/2024 12:23 PM 88 mg/dL N Blood chemistry[[id number]] Glucose [Mass/volume] in Serum or Plasma [2345-7] 10/21/2024 10:35 AM 145 mg/dL N Blood chemistry[[id number]] Glucose [Mass/volume] in Serum or Plasma [2345-7] 10/20/2024 04:22 PM 97 mg/dL N Blood chemistry[[id number]] Glucose [Mass/volume] in Serum or Plasma [2345-7] 10/20/2024 10:00 AM 134 mg/dL N Blood chemistry[[id number]] Glucose [Mass/volume] in Serum or Plasma [2345-7] 10/20/2024 09:07 AM 155 mg/dL N Blood chemistry[[id number]] Glucose [Mass/volume] in Serum or Plasma [2345-7] 10/19/2024 04:59 PM 131 mg/dL N Blood chemistry[[id number]] Glucose [Mass/volume] in Serum or Plasma [2345-7] 10/19/2024 10:02 AM 80 mg/dL N Blood chemistry[[id number]] Glucose [Mass/volume] in Serum or Plasma [2345-7] 10/19/2024 09:42 AM 99 mg/dL N Blood chemistry[[id number]] Glucose [Mass/volume] in Serum or Plasma [2345-7] 10/18/2024 05:33 PM 172 mg/dL N Blood chemistry[[id number]] Glucose [Mass/volume] in Serum or Plasma [2345-7] 10/18/2024 10:16 AM 87 mg/dL N Blood chemistry[[id number]] Glucose [Mass/volume] in Serum or Plasma [2345-7] 10/18/2024 10:04 AM 110 mg/dL N Blood chemistry[[id number]] Glucose [Mass/volume] in Serum or Plasma [2345-7] 10/17/2024 05:24 PM 78 mg/dL N Blood chemistry[[id number]] Glucose [Mass/volume] in Serum or Plasma [2345-7] 10/17/2024 10:15 AM 138 mg/dL N Blood chemistry[[id number]] Glucose [Mass/volume] in Serum or Plasma [2345-7] 10/17/2024 09:15 AM 89 mg/dL N Blood chemistry[[id number]] Glucose [Mass/volume] in Serum or Plasma [2345-7] 10/16/2024 05:13 PM 145 mg/dL N Blood chemistry[[id number]] Glucose [Mass/volume] in Serum or Plasma [2345-7] 10/16/2024 10:22 AM 78 mg/dL N Blood chemistry[[id number]] Glucose [Mass/volume] in Serum or Plasma [2345-7] 10/16/2024 09:55 AM 132 mg/dL N Blood chemistry[[id number]] Glucose [Mass/volume] in Serum or Plasma [2345-7] 10/15/2024 10:07 AM 83 mg/dL N Blood chemistry[[id number]] Glucose [Mass/volume] in Serum or Plasma [2345-7] 10/15/2024 09:22 AM 140 mg/dL N Blood chemistry[[id number]] Glucose [Mass/volume] in Serum or Plasma [2345-7] 10/15/2024 06:04 AM 123 mg/dL N Blood chemistry[[id number]] Glucose [Mass/volume] in Serum or Plasma [2345-7] 10/14/2024 04:48 PM 148 mg/dL N Blood chemistry[[id number]] Glucose [Mass/volume] in Serum or Plasma [2345-7] 10/14/2024 12:28 PM 86 mg/dL N Blood chemistry[[id number]] Glucose [Mass/volume] in Serum or Plasma [2345-7] 10/14/2024 09:48 AM 105 mg/dL N Blood chemistry[[id number]] Glucose [Mass/volume] in Serum or Plasma [2345-7] 10/13/2024 10:07 AM 170 mg/dL N Blood chemistry[[id number]] Glucose [Mass/volume] in Serum or Plasma [2345-7] 10/13/2024 09:59 AM 123 mg/dL N Blood chemistry[[id number]] Glucose [Mass/volume] in Serum or Plasma [2345-7] 10/12/2024 04:07 PM 118 mg/dL N Blood chemistry[[id number]] Glucose [Mass/volume] in Serum or Plasma [2345-7] 10/12/2024 10:09 AM 148 mg/dL N Blood chemistry[[id number]] Glucose [Mass/volume] in Serum or Plasma [2345-7] 10/12/2024 10:01 AM 82 mg/dL N Blood chemistry[[id number]] Glucose [Mass/volume] in Serum or Plasma [2345-7] 10/11/2024 05:04 PM 109 mg/dL N Blood chemistry[[id number]] Glucose [Mass/volume] in Serum or Plasma [2345-7] 10/11/2024 10:08 AM 88 mg/dL N Blood chemistry[[id number]] Glucose [Mass/volume] in Serum or Plasma [2345-7] 10/11/2024 09:15 AM 117 mg/dL N Blood chemistry[[id number]] Glucose [Mass/volume] in Serum or Plasma [2345-7] 10/10/2024 05:50 PM 127 mg/dL N Blood chemistry[[id number]] Glucose [Mass/volume] in Serum or Plasma [2345-7] 10/10/2024 11:51 AM 110 mg/dL N Blood chemistry[[id number]] Glucose [Mass/volume] in Serum or Plasma [2345-7] 10/10/2024 10:14 AM 119 mg/dL N Blood chemistry[[id number]] Glucose [Mass/volume] in Serum or Plasma [2345-7] 10/09/2024 04:30 PM 158 mg/dL N Blood chemistry[[id number]] Glucose [Mass/volume] in Serum or Plasma [2345-7] 10/09/2024 12:10 PM 81 mg/dL N Blood chemistry[[id number]] Glucose [Mass/volume] in Serum or Plasma [2345-7] 10/09/2024 09:17 AM 90 mg/dL N Blood chemistry[[id number]] Glucose [Mass/volume] in Serum or Plasma [2345-7] 10/08/2024 05:55 PM 126 mg/dL N Blood chemistry[[id number]] Glucose [Mass/volume] in Serum or Plasma [2345-7] 10/08/2024 09:17 AM 212 mg/dL N Blood chemistry[[id number]] Glucose [Mass/volume] in Serum or Plasma [2345-7] 10/07/2024 04:52 PM 123 mg/dL N Blood chemistry[[id number]] Glucose [Mass/volume] in Serum or Plasma [2345-7] 10/07/2024 12:16 PM 112 mg/dL N Blood chemistry[[id number]] Glucose [Mass/volume] in Serum or Plasma [2345-7] 10/07/2024 10:03 AM 110 mg/dL N Blood chemistry[[id number]] Glucose [Mass/volume] in Serum or Plasma [2345-7] 09/01/2024 05:11 PM 110 mg/dL N Blood chemistry[[id number]] Glucose [Mass/volume] in Serum or Plasma [2345-7] 09/01/2024 09:32 AM 233 mg/dL N Blood chemistry[[id number]] Glucose [Mass/volume] in Serum or Plasma [2345-7] 09/01/2024 09:14 AM 121 mg/dL N Blood chemistry[[id number]] Glucose [Mass/volume] in Serum or Plasma [2345-7] 08/31/2024 11:48 AM 221 mg/dL N Blood chemistry[[id number]] Glucose [Mass/volume] in Serum or Plasma [2345-7] 08/31/2024 04:18 PM 125 mg/dL N Blood chemistry[[id number]] Glucose [Mass/volume] in Serum or Plasma [2345-7] 08/31/2024 09:26 AM 173 mg/dL N Blood chemistry[] Glucose [Mass/volume] in Serum or Plasma [2345-7] 08/31/2024 09:37 AM 90 mg/dL N Blood chemistry[[id number]] Glucose [Mass/volume] in Serum or Plasma [2345-7] 08/30/2024 12:20 PM 152 mg/dL N Blood chemistry[[id number]] Glucose [Mass/volume] in Serum or Plasma [2345-7] 08/30/2024 04:37 PM 136 mg/dL N Blood chemistry[] Glucose [Mass/volume] in Serum or Plasma [2345-7] 08/30/2024 10:28 AM 102 mg/dL N Blood chemistry[[id number]] Glucose [Mass/volume] in Serum or Plasma [2345-7] 08/30/2024 10:01 AM 100 mg/dL N Blood chemistry[[id number]] Glucose [Mass/volume] in Serum or Plasma [2345-7] 08/29/2024 12:59 PM 170 mg/dL N Blood chemistry[[id number]] Glucose [Mass/volume] in Serum or Plasma [2345-7] 08/29/2024 05:48 PM 126 mg/dL N Blood chemistry[[id number]] Glucose [Mass/volume] in Serum or Plasma [2345-7] 08/29/2024 10:17 AM 142 mg/dL N Blood chemistry[[id number]] Glucose [Mass/volume] in Serum or Plasma [2345-7] 08/29/2024 10:26 AM 122 mg/dL N Blood chemistry[[id number]] Glucose [Mass/volume] in Serum or Plasma [2345-7] 08/28/2024 01:34 PM 185 mg/dL N Blood chemistry[[id number]] Glucose [Mass/volume] in Serum or Plasma [2345-7] 08/28/2024 05:33 PM 104 mg/dL N Blood chemistry[[id number]] Glucose [Mass/volume] in Serum or Plasma [2345-7] 08/28/2024 10:20 AM 138 mg/dL N Blood chemistry[[id number]] Glucose [Mass/volume] in Serum or Plasma [2345-7] 08/28/2024 09:29 AM 198 mg/dL N Blood chemistry[] Glucose [Mass/volume] in Serum or Plasma [2345-7] 08/27/2024 11:52 AM 171 mg/dL N Blood chemistry[[id number]] Glucose [Mass/volume] in Serum or Plasma [2345-7] 08/27/2024 05:09 PM 85 mg/dL N Blood chemistry[[id number]] Glucose [Mass/volume] in Serum or Plasma [2345-7] 08/27/2024 09:05 AM 127 mg/dL N Blood chemistry[[id number]] Glucose [Mass/volume] in Serum or Plasma [2345-7] 08/27/2024 09:00 AM 107 mg/dL N Blood chemistry[[id number]] Glucose [Mass/volume] in Serum or Plasma [2345-7] 08/26/2024 11:12 AM 162 mg/dL N Blood chemistry[[id number]] Glucose [Mass/volume] in Serum or Plasma [2345-7] 08/26/2024 09:57 AM 118 mg/dL N Blood chemistry[[id number]] Glucose [Mass/volume] in Serum or Plasma [2345-7] 08/26/2024 06:14 AM 144 mg/dL N Blood chemistry[[id number]] Glucose [Mass/volume] in Serum or Plasma [2345-7] 08/26/2024 09:14 AM 94 mg/dL N Blood chemistry[[id number]] Glucose [Mass/volume] in Serum or Plasma [2345-7] 08/25/2024 01:12 PM 118 mg/dL N Blood chemistry[[id number]] Glucose [Mass/volume] in Serum or Plasma [2345-7] 08/25/2024 05:16 PM 80 mg/dL N Blood chemistry[[id number]] Glucose [Mass/volume] in Serum or Plasma [2345-7] 08/25/2024 10:09 AM 181 mg/dL N Blood chemistry[[id number]] Glucose [Mass/volume] in Serum or Plasma [2345-7] 08/25/2024 09:40 AM 108 mg/dL N Blood chemistry[[id number]] Glucose [Mass/volume] in Serum or Plasma [2345-7] 08/24/2024 11:48 AM 229 mg/dL N Blood chemistry[[id number]] Glucose [Mass/volume] in Serum or Plasma [2345-7] 08/24/2024 04:06 PM 167 mg/dL N Blood chemistry[[id number]] Glucose [Mass/volume] in Serum or Plasma [2345-7] 08/24/2024 09:37 AM 109 mg/dL N Blood chemistry[[id number]] Glucose [Mass/volume] in Serum or Plasma [2345-7] 08/24/2024 09:20 AM 100 mg/dL N Blood chemistry[[id number]] Glucose [Mass/volume] in Serum or Plasma [2345-7] 08/23/2024 11:56 AM 196 mg/dL N Blood chemistry[[id number]] Glucose [Mass/volume] in Serum or Plasma [2345-7] 08/23/2024 04:24 PM 119 mg/dL N Blood chemistry[[id number]] Glucose [Mass/volume] in Serum or Plasma [2345-7] 08/23/2024 08:55 AM 150 mg/dL N Blood chemistry[[id number]] Glucose [Mass/volume] in Serum or Plasma [2345-7] 08/22/2024 11:14 AM 161 mg/dL N Blood chemistry[[id number]] Glucose [Mass/volume] in Serum or Plasma [2345-7] 08/22/2024 09:46 AM 121 mg/dL N Blood chemistry[[id number]] Glucose [Mass/volume] in Serum or Plasma [2345-7] 08/22/2024 06:03 AM 103 mg/dL N Blood chemistry[[id number]] Glucose [Mass/volume] in Serum or Plasma [2345-7] 08/22/2024 09:25 AM 86 mg/dL N Blood chemistry[[id number]] Glucose [Mass/volume] in Serum or Plasma [2345-7] 08/21/2024 11:11 AM 215 mg/dL N Blood chemistry[[id number]] Glucose [Mass/volume] in Serum or Plasma [2345-7] 08/21/2024 05:34 PM 96 mg/dL N Blood chemistry[[id number]] Glucose [Mass/volume] in Serum or Plasma [2345-7] 08/21/2024 10:13 AM 131 mg/dL N Blood chemistry[[id number]] Glucose [Mass/volume] in Serum or Plasma [2345-7] 08/21/2024 09:15 AM 127 mg/dL N Blood chemistry[[id number]] Glucose [Mass/volume] in Serum or Plasma [2345-7] 08/20/2024 11:00 AM 190 mg/dL N Blood chemistry[[id number]] Glucose [Mass/volume] in Serum or Plasma [2345-7] 08/20/2024 05:40 PM 89 mg/dL N Blood chemistry[[id number]] Glucose [Mass/volume] in Serum or Plasma [2345-7] 08/20/2024 09:18 AM 185 mg/dL N Blood chemistry[[id number]] Glucose [Mass/volume] in Serum or Plasma [2345-7] 08/20/2024 09:00 AM 120 mg/dL N Blood chemistry[[id number]] Glucose [Mass/volume] in Serum or Plasma [2345-7] 08/19/2024 11:05 AM 229 mg/dL N Blood chemistry[[id number]] Glucose [Mass/volume] in Serum or Plasma [2345-7] 08/19/2024 05:17 PM 104 mg/dL N Blood chemistry[[id number]] Glucose [Mass/volume] in Serum or Plasma [2345-7] 08/19/2024 09:43 AM 200 mg/dL N Blood chemistry[[id number]] Glucose [Mass/volume] in Serum or Plasma [2345-7] 08/19/2024 09:51 AM 101 mg/dL N Blood chemistry[[id number]] Glucose [Mass/volume] in Serum or Plasma [2345-7] 08/18/2024 12:23 PM 150 mg/dL N Blood chemistry[[id number]] Glucose [Mass/volume] in Serum or Plasma [2345-7] 08/18/2024 05:41 PM 154 mg/dL N Blood chemistry[[id number]] Glucose [Mass/volume] in Serum or Plasma [2345-7] 08/18/2024 09:57 AM 153 mg/dL N Blood chemistry[[id number]] Glucose [Mass/volume] in Serum or Plasma [2345-7] 08/18/2024 10:09 AM 124 mg/dL N Blood chemistry[[id number]] Glucose [Mass/volume] in Serum or Plasma [2345-7] 08/17/2024 01:31 PM 174 mg/dL N Blood chemistry[[id number]] Glucose [Mass/volume] in Serum or Plasma [2345-7] 08/17/2024 10:38 AM 128 mg/dL N Blood chemistry[[id number]] Glucose [Mass/volume] in Serum or Plasma [2345-7] 08/17/2024 04:14 PM 188 mg/dL N Blood chemistry[[id number]] Glucose [Mass/volume] in Serum or Plasma [2345-7] 08/17/2024 09:53 AM 116 mg/dL N Blood chemistry[[id number]] Glucose [Mass/volume] in Serum or Plasma [2345-7] 08/16/2024 01:01 PM 167 mg/dL N Blood chemistry[[id number]] Glucose [Mass/volume] in Serum or Plasma [2345-7] 08/16/2024 04:40 PM 114 mg/dL N Blood chemistry[[id number]] Glucose [Mass/volume] in Serum or Plasma [2345-7] 08/16/2024 09:26 AM 114 mg/dL N Blood chemistry[[id number]] Glucose [Mass/volume] in Serum or Plasma [2345-7] 08/15/2024 05:38 PM 109 mg/dL N Blood chemistry[[id number]] Glucose [Mass/volume] in Serum or Plasma [2345-7] 08/15/2024 09:13 AM 95 mg/dL N Blood chemistry[[id number]] Glucose [Mass/volume] in Serum or Plasma [2345-7] 08/14/2024 11:02 AM 145 mg/dL N Blood chemistry[[id number]] Glucose [Mass/volume] in Serum or Plasma [2345-7] 08/14/2024 10:43 AM 140 mg/dL N Blood chemistry[[id number]] Glucose [Mass/volume] in Serum or Plasma [2345-7] 08/14/2024 07:47 AM 109 mg/dL N Blood chemistry[[id number]] Glucose [Mass/volume] in Serum or Plasma [2345-7] 08/14/2024 10:09 AM 141 mg/dL N Blood chemistry[[id number]] Glucose [Mass/volume] in Serum or Plasma [2345-7] 08/13/2024 04:10 PM 156 mg/dL N Blood chemistry[[id number]] Glucose [Mass/volume] in Serum or Plasma [2345-7] 08/13/2024 11:04 AM 96 mg/dL N Blood chemistry[[id number]] Glucose [Mass/volume] in Serum or Plasma [2345-7] 08/13/2024 09:02 AM 149 mg/dL N Blood chemistry[[id number]] Glucose [Mass/volume] in Serum or Plasma [2345-7] 08/13/2024 09:07 AM 101 mg/dL N Blood chemistry[[id number]] Glucose [Mass/volume] in Serum or Plasma [2345-7] 08/12/2024 11:11 AM 150 mg/dL N Blood chemistry[[id number]] Glucose [Mass/volume] in Serum or Plasma [2345-7] 08/12/2024 05:24 PM 137 mg/dL N Blood chemistry[[id number]] Glucose [Mass/volume] in Serum or Plasma [2345-7] 08/12/2024 10:42 AM 117 mg/dL N Blood chemistry[[id number]] Glucose [Mass/volume] in Serum or Plasma [2345-7] 08/12/2024 09:58 AM 83 mg/dL N Blood chemistry[[id number]] Glucose [Mass/volume] in Serum or Plasma [2345-7] 08/11/2024 12:41 PM 173 mg/dL N Blood chemistry[[id number]] Glucose [Mass/volume] in Serum or Plasma [2345-7] 08/11/2024 05:27 PM 94 mg/dL N Blood chemistry[[id number]] Glucose [Mass/volume] in Serum or Plasma [2345-7] 08/11/2024 09:22 AM 151 mg/dL N Blood chemistry[[id number]] Glucose [Mass/volume] in Serum or Plasma [2345-7] 08/11/2024 09:34 AM 131 mg/dL N Blood chemistry[[id number]] Glucose [Mass/volume] in Serum or Plasma [2345-7] 08/10/2024 03:23 PM 145 mg/dL N Blood chemistry[[id number]] Glucose [Mass/volume] in Serum or Plasma [2345-7] 08/10/2024 05:11 PM 148 mg/dL N Blood chemistry[[id number]] Glucose [Mass/volume] in Serum or Plasma [2345-7] 08/10/2024 10:03 AM 109 mg/dL N Blood chemistry[[id number]] Glucose [Mass/volume] in Serum or Plasma [2345-7] 08/10/2024 10:00 AM 141 mg/dL N Blood chemistry[[id number]] Glucose [Mass/volume] in Serum or Plasma [2345-7] 08/09/2024 03:16 PM 184 mg/dL N Blood chemistry[[id number]] Glucose [Mass/volume] in Serum or Plasma [2345-7] 08/09/2024 04:08 PM 164 mg/dL N Blood chemistry[[id number]] Glucose [Mass/volume] in Serum or Plasma [2345-7] 08/09/2024 09:01 AM 97 mg/dL N Blood chemistry[[id number]] Glucose [Mass/volume] in Serum or Plasma [2345-7] 08/09/2024 10:14 AM 111 mg/dL N Blood chemistry[[id number]] Glucose [Mass/volume] in Serum or Plasma [2345-7] 08/08/2024 04:45 PM 136 mg/dL N Blood chemistry[[id number]] Glucose [Mass/volume] in Serum or Plasma [2345-7] 08/08/2024 09:53 AM 132 mg/dL N Blood chemistry[[id number]] Glucose [Mass/volume] in Serum or Plasma [2345-7] 08/08/2024 07:38 AM 143 mg/dL N Blood chemistry[[id number]] Glucose [Mass/volume] in Serum or Plasma [2345-7] 08/08/2024 09:10 AM 105 mg/dL N Blood chemistry[[id number]] Glucose [Mass/volume] in Serum or Plasma [2345-7] 08/07/2024 11:03 AM 177 mg/dL N Blood chemistry[[id number]] Glucose [Mass/volume] in Serum or Plasma [2345-7] 08/07/2024 05:13 PM 126 mg/dL N Blood chemistry[[id number]] Glucose [Mass/volume] in Serum or Plasma [2345-7] 08/07/2024 09:44 AM 122 mg/dL N Blood chemistry[[id number]] Glucose [Mass/volume] in Serum or Plasma [2345-7] 08/07/2024 09:20 AM 91 mg/dL N Blood chemistry[[id number]] Glucose [Mass/volume] in Serum or Plasma [2345-7] 08/06/2024 11:35 AM 199 mg/dL N Blood chemistry[[id number]] Glucose [Mass/volume] in Serum or Plasma [2345-7] 08/06/2024 09:52 AM 167 mg/dL N Blood chemistry[[id number]] Glucose [Mass/volume] in Serum or Plasma [2345-7] 08/06/2024 09:13 AM 97 mg/dL N Blood chemistry[[id number]] Glucose [Mass/volume] in Serum or Plasma [2345-7] 08/05/2024 05:15 PM 122 mg/dL N Blood chemistry[[id number]] Glucose [Mass/volume] in Serum or Plasma [2345-7] 08/05/2024 11:08 AM 181 mg/dL N Blood chemistry[[id number]] Glucose [Mass/volume] in Serum or Plasma [2345-7] 08/05/2024 09:28 AM 149 mg/dL N Blood chemistry[[id number]] Glucose [Mass/volume] in Serum or Plasma [2345-7] 08/05/2024 10:20 AM 99 mg/dL N Blood chemistry[[id number]] Glucose [Mass/volume] in Serum or Plasma [2345-7] 08/04/2024 01:31 PM 162 mg/dL N Blood chemistry[[id number]] Glucose [Mass/volume] in Serum or Plasma [2345-7] 08/04/2024 05:30 PM 122 mg/dL N Blood chemistry[[id number]] Glucose [Mass/volume] in Serum or Plasma [2345-7] 08/04/2024 09:17 AM 155 mg/dL N Blood chemistry[[id number]] Glucose [Mass/volume] in Serum or Plasma [2345-7] 08/04/2024 10:21 AM 141 mg/dL N Blood chemistry[[id number]] Glucose [Mass/volume] in Serum or Plasma [2345-7] 08/03/2024 12:38 PM 142 mg/dL N Blood chemistry[[id number]] Glucose [Mass/volume] in Serum or Plasma [2345-7] 08/03/2024 04:31 PM 138 mg/dL N Blood chemistry[[id number]] Glucose [Mass/volume] in Serum or Plasma [2345-7] 08/03/2024 10:06 AM 128 mg/dL N Blood chemistry[[id number]] Glucose [Mass/volume] in Serum or Plasma [2345-7] 08/03/2024 11:18 AM 121 mg/dL N Blood chemistry[[id number]] Glucose [Mass/volume] in Serum or Plasma [2345-7] 08/02/2024 04:31 PM 155 mg/dL N Blood chemistry[[id number]] Glucose [Mass/volume] in Serum or Plasma [2345-7] 08/02/2024 04:58 PM 163 mg/dL N Blood chemistry[[id number]] Glucose [Mass/volume] in Serum or Plasma [2345-7] 08/02/2024 09:41 AM 144 mg/dL N Blood chemistry[[id number]] Glucose [Mass/volume] in Serum or Plasma [2345-7] 08/02/2024 10:00 AM 130 mg/dL N Blood chemistry[[id number]] Glucose [Mass/volume] in Serum or Plasma [2345-7] 08/01/2024 12:24 PM 178 mg/dL N Blood chemistry[[id number]] Glucose [Mass/volume] in Serum or Plasma [2345-7] 08/01/2024 05:08 PM 118 mg/dL N Blood chemistry[[id number]] Glucose [Mass/volume] in Serum or Plasma [2345-7] 08/01/2024 10:17 AM 157 mg/dL N Blood chemistry[[id number]] Glucose [Mass/volume] in Serum or Plasma [2345-7] 08/01/2024 09:11 AM 112 mg/dL N Blood chemistry[[id number]] Glucose [Mass/volume] in Serum or Plasma [2345-7] 07/31/2024 05:14 PM 127 mg/dL N Blood chemistry[[id number]] Glucose [Mass/volume] in Serum or Plasma [2345-7] 07/31/2024 11:07 AM 142 mg/dL N Blood chemistry[[id number]] Glucose [Mass/volume] in Serum or Plasma [2345-7] 07/31/2024 10:27 AM 164 mg/dL N Blood chemistry[[id number]] Glucose [Mass/volume] in Serum or Plasma [2345-7] 07/31/2024 09:12 AM 133 mg/dL N Blood chemistry[[id number]] Glucose [Mass/volume] in Serum or Plasma [2345-7] 07/30/2024 11:21 AM 157 mg/dL N Glucose [Mass/volume] in Serum or Plasma [2345-7] 07/30/2024 11:21 AM 150 mg/dL N Blood chemistry[[id number]] Glucose [Mass/volume] in Serum or Plasma [2345-7] 07/30/2024 05:54 PM 184 mg/dL N Blood chemistry[[id number]] Glucose [Mass/volume] in Serum or Plasma [2345-7] 07/30/2024 09:16 AM 134 mg/dL N Blood chemistry[[id number]] Glucose [Mass/volume] in Serum or Plasma [2345-7] 07/29/2024 11:49 AM 133 mg/dL N Blood chemistry[[id number]] Glucose [Mass/volume] in Serum or Plasma [2345-7] 07/29/2024 04:05 PM 123 mg/dL N Blood chemistry[[id number]] Glucose [Mass/volume] in Serum or Plasma [2345-7] 07/29/2024 10:06 AM 162 mg/dL N Blood chemistry[[id number]] Glucose [Mass/volume] in Serum or Plasma [2345-7] 07/29/2024 10:18 AM 117 mg/dL N Blood chemistry[[id number]] Glucose [Mass/volume] in Serum or Plasma [2345-7] 07/28/2024 01:11 PM 158 mg/dL N Blood chemistry[[id number]] Glucose [Mass/volume] in Serum or Plasma [2345-7] 07/28/2024 09:56 AM 150 mg/dL N Blood chemistry[[id number]] Glucose [Mass/volume] in Serum or Plasma [2345-7] 07/28/2024 06:53 AM 111 mg/dL N Blood chemistry[[id number]] Glucose [Mass/volume] in Serum or Plasma [2345-7] 07/28/2024 09:50 AM 108 mg/dL N Blood chemistry[[id number]] Glucose [Mass/volume] in Serum or Plasma [2345-7] 07/27/2024 12:34 PM 162 mg/dL N Blood chemistry[[id number]] Glucose [Mass/volume] in Serum or Plasma [2345-7] 07/27/2024 04:38 PM 148 mg/dL N Blood chemistry[[id number]] Glucose [Mass/volume] in Serum or Plasma [2345-7] 07/27/2024 09:46 AM 129 mg/dL N Blood chemistry[[id number]] Glucose [Mass/volume] in Serum or Plasma [2345-7] 07/27/2024 10:12 AM 136 mg/dL N Blood chemistry[[id number]] Glucose [Mass/volume] in Serum or Plasma [2345-7] 07/26/2024 01:47 PM 155 mg/dL N Blood chemistry[[id number]] Glucose [Mass/volume] in Serum or Plasma [2345-7] 07/26/2024 04:08 PM 189 mg/dL N Blood chemistry[[id number]] Glucose [Mass/volume] in Serum or Plasma [2345-7] 07/26/2024 09:31 AM 114 mg/dL N Blood chemistry[[id number]] Glucose [Mass/volume] in Serum or Plasma [2345-7] 07/26/2024 10:26 AM 86 mg/dL N Blood chemistry[[id number]] Glucose [Mass/volume] in Serum or Plasma [2345-7] 07/25/2024 12:32 PM 218 mg/dL N Blood chemistry[[id number]] Glucose [Mass/volume] in Serum or Plasma [2345-7] 07/25/2024 05:13 PM 112 mg/dL N Blood chemistry[[id number]] Glucose [Mass/volume] in Serum or Plasma [2345-7] 07/25/2024 10:28 AM 127 mg/dL N Blood chemistry[[id number]] Glucose [Mass/volume] in Serum or Plasma [2345-7] 07/25/2024 10:32 AM 123 mg/dL N Blood chemistry[[id number]] Glucose [Mass/volume] in Serum or Plasma [2345-7] 07/24/2024 03:49 PM 141 mg/dL N Blood chemistry[[id number]] Glucose [Mass/volume] in Serum or Plasma [2345-7] 07/24/2024 04:12 PM 161 mg/dL N Blood chemistry[[id number]] Glucose [Mass/volume] in Serum or Plasma [2345-7] 07/24/2024 10:14 AM 112 mg/dL N Blood chemistry[[id number]] Glucose [Mass/volume] in Serum or Plasma [2345-7] 07/24/2024 09:18 AM 140 mg/dL N Blood chemistry[[id number]] Glucose [Mass/volume] in Serum or Plasma [2345-7] 07/23/2024 11:53 AM 203 mg/dL N Blood chemistry[[id number]] Glucose [Mass/volume] in Serum or Plasma [2345-7] 07/23/2024 05:45 PM 139 mg/dL N Blood chemistry[[id number]] Glucose [Mass/volume] in Serum or Plasma [2345-7] 07/23/2024 09:48 AM 164 mg/dL N Blood chemistry[[id number]] Glucose [Mass/volume] in Serum or Plasma [2345-7] 07/23/2024 09:02 AM 145 mg/dL N Blood chemistry[[id number]] Glucose [Mass/volume] in Serum or Plasma [2345-7] 07/22/2024 12:04 PM 184 mg/dL N Blood chemistry[[id number]] Glucose [Mass/volume] in Serum or Plasma [2345-7] 07/22/2024 03:51 PM 213 mg/dL N Blood chemistry[[id number]] Glucose [Mass/volume] in Serum or Plasma [2345-7] 07/22/2024 09:37 AM 177 mg/dL N Blood chemistry[[id number]] Glucose [Mass/volume] in Serum or Plasma [2345-7] 07/22/2024 10:06 AM 126 mg/dL N Blood chemistry[[id number]] Glucose [Mass/volume] in Serum or Plasma [2345-7] 07/21/2024 12:40 PM 235 mg/dL N Blood chemistry[[id number]] Glucose [Mass/volume] in Serum or Plasma [2345-7] 07/21/2024 05:00 PM 140 mg/dL N Blood chemistry[[id number]] Glucose [Mass/volume] in Serum or Plasma [2345-7] 07/21/2024 09:34 AM 169 mg/dL N Blood chemistry[[id number]] Glucose [Mass/volume] in Serum or Plasma [2345-7] 07/21/2024 09:46 AM 109 mg/dL N Blood chemistry[[id number]] Glucose [Mass/volume] in Serum or Plasma [2345-7] 07/20/2024 01:15 PM 180 mg/dL N Blood chemistry[[id number]] Glucose [Mass/volume] in Serum or Plasma [2345-7] 07/20/2024 04:19 PM 185 mg/dL N Blood chemistry[[id number]] Glucose [Mass/volume] in Serum or Plasma [2345-7] 07/20/2024 09:32 AM 126 mg/dL N Blood chemistry[[id number]] Glucose [Mass/volume] in Serum or Plasma [2345-7] 07/20/2024 10:15 AM 114 mg/dL N Blood chemistry[[id number]] Glucose [Mass/volume] in Serum or Plasma [2345-7] 07/19/2024 11:36 AM 144 mg/dL N Blood chemistry[[id number]] Glucose [Mass/volume] in Serum or Plasma [2345-7] 07/19/2024 04:21 PM 175 mg/dL N Blood chemistry[[id number]] Glucose [Mass/volume] in Serum or Plasma [2345-7] 07/19/2024 08:49 AM 140 mg/dL N Blood chemistry[[id number]] Glucose [Mass/volume] in Serum or Plasma [2345-7] 07/19/2024 10:16 AM 104 mg/dL N Blood chemistry[[id number]] Glucose [Mass/volume] in Serum or Plasma [2345-7] 07/18/2024 12:25 PM 132 mg/dL N Blood chemistry[[id number]] Glucose [Mass/volume] in Serum or Plasma [2345-7] 07/18/2024 05:10 PM 101 mg/dL N Blood chemistry[[id number]] Glucose [Mass/volume] in Serum or Plasma [2345-7] 07/18/2024 09:29 AM 160 mg/dL N COVID-19 Test Viral Antigen null flavor [null] 07/18/2024 07:58 AM See note IND COVID-19 Test Viral Antigen Blood chemistry[[id number]] Glucose [Mass/volume] in Serum or Plasma [2345-7] 07/18/2024 09:01 AM 141 mg/dL N Blood chemistry[[id number]] Glucose [Mass/volume] in Serum or Plasma [2345-7] 07/17/2024 11:52 AM 171 mg/dL N Blood chemistry[[id number]] Glucose [Mass/volume] in Serum or Plasma [2345-7] 07/17/2024 03:49 PM 175 mg/dL N Blood chemistry[[id number]] Glucose [Mass/volume] in Serum or Plasma [2345-7] 07/17/2024 08:45 AM 166 mg/dL N Blood chemistry[[id number]] Glucose [Mass/volume] in Serum or Plasma [2345-7] 07/17/2024 09:00 AM 122 mg/dL N Blood chemistry[[id number]] Glucose [Mass/volume] in Serum or Plasma [2345-7] 07/16/2024 11:43 AM 156 mg/dL N Blood chemistry[[id number]] Glucose [Mass/volume] in Serum or Plasma [2345-7] 07/16/2024 04:40 PM 105 mg/dL N Blood chemistry[[id number]] Glucose [Mass/volume] in Serum or Plasma [2345-7] 07/16/2024 08:19 AM 182 mg/dL N Blood chemistry[[id number]] Glucose [Mass/volume] in Serum or Plasma [2345-7] 07/16/2024 09:03 AM 103 mg/dL N Blood chemistry[[id number]] Glucose [Mass/volume] in Serum or Plasma [2345-7] 07/15/2024 11:57 AM 227 mg/dL N Blood chemistry[[id number]] Glucose [Mass/volume] in Serum or Plasma [2345-7] 07/15/2024 05:07 PM 204 mg/dL N Blood chemistry[[id number]] Glucose [Mass/volume] in Serum or Plasma [2345-7] 07/15/2024 10:42 AM 141 mg/dL N Blood chemistry[[id number]] Glucose [Mass/volume] in Serum or Plasma [2345-7] 07/15/2024 10:47 AM 123 mg/dL N Blood chemistry[[id number]] Glucose [Mass/volume] in Serum or Plasma [2345-7] 07/14/2024 11:52 AM 201 mg/dL N Blood chemistry[[id number]] Glucose [Mass/volume] in Serum or Plasma [2345-7] 07/14/2024 09:20 AM 260 mg/dL N Blood chemistry[[id number]] Glucose [Mass/volume] in Serum or Plasma [2345-7] 07/14/2024 07:29 AM 106 mg/dL N Blood chemistry[[id number]] Glucose [Mass/volume] in Serum or Plasma [2345-7] 07/14/2024 10:19 AM 102 mg/dL N Blood chemistry[[id number]] Glucose [Mass/volume] in Serum or Plasma [2345-7] 07/13/2024 11:58 AM 207 mg/dL N Blood chemistry[[id number]] Glucose [Mass/volume] in Serum or Plasma [2345-7] 07/13/2024 04:55 PM 172 mg/dL N Blood chemistry[[id number]] Glucose [Mass/volume] in Serum or Plasma [2345-7] 07/13/2024 10:16 AM 150 mg/dL N Blood chemistry[[id number]] Glucose [Mass/volume] in Serum or Plasma [2345-7] 07/13/2024 10:34 AM 154 mg/dL N Blood chemistry[[id number]] Glucose [Mass/volume] in Serum or Plasma [2345-7] 07/12/2024 12:29 PM 242 mg/dL N Blood chemistry[[id number]] Glucose [Mass/volume] in Serum or Plasma [2345-7] 07/12/2024 03:43 PM 169 mg/dL N Blood chemistry[[id number]] Glucose [Mass/volume] in Serum or Plasma [2345-7] 07/12/2024 08:50 AM 136 mg/dL N Blood chemistry[[id number]] Glucose [Mass/volume] in Serum or Plasma [2345-7] 07/12/2024 10:21 AM 248 mg/dL N Blood chemistry[[id number]] Glucose [Mass/volume] in Serum or Plasma [2345-7] 07/11/2024 01:23 PM 197 mg/dL N Blood chemistry[[id number]] Glucose [Mass/volume] in Serum or Plasma [2345-7] 07/11/2024 05:48 PM 124 mg/dL N Blood chemistry[[id number]] Glucose [Mass/volume] in Serum or Plasma [2345-7] 07/11/2024 10:09 AM 154 mg/dL N Blood chemistry[[id number]] Glucose [Mass/volume] in Serum or Plasma [2345-7] 07/11/2024 09:00 AM 151 mg/dL N Blood chemistry[[id number]] Glucose [Mass/volume] in Serum or Plasma [2345-7] 07/10/2024 01:09 PM 151 mg/dL N Blood chemistry[[id number]] Glucose [Mass/volume] in Serum or Plasma [2345-7] 07/10/2024 04:21 PM 176 mg/dL N Blood chemistry[[id number]] Glucose [Mass/volume] in Serum or Plasma [2345-7] 07/10/2024 09:00 AM 170 mg/dL N Blood chemistry[[id number]] Glucose [Mass/volume] in Serum or Plasma [2345-7] 07/10/2024 09:14 AM 113 mg/dL N Blood chemistry[[id number]] Glucose [Mass/volume] in Serum or Plasma [2345-7] 07/09/2024 11:44 AM 197 mg/dL N Blood chemistry[[id number]] Glucose [Mass/volume] in Serum or Plasma [2345-7] 07/09/2024 09:27 AM 199 mg/dL N Blood chemistry[[id number]] Glucose [Mass/volume] in Serum or Plasma [2345-7] 07/09/2024 09:06 AM 105 mg/dL N Blood chemistry[[id number]] Glucose [Mass/volume] in Serum or Plasma [2345-7] 07/08/2024 11:49 AM 187 mg/dL N Blood chemistry[[id number]] Glucose [Mass/volume] in Serum or Plasma [2345-7] 07/08/2024 09:38 AM 187 mg/dL N Blood chemistry[[id number]] Glucose [Mass/volume] in Serum or Plasma [2345-7] 07/08/2024 10:21 AM 109 mg/dL N Blood chemistry[[id number]] Glucose [Mass/volume] in Serum or Plasma [2345-7] 07/08/2024 06:35 AM 150 mg/dL N Blood chemistry[[id number]] Glucose [Mass/volume] in Serum or Plasma [2345-7] 07/07/2024 05:52 PM 114 mg/dL N Blood chemistry[[id number]] Glucose [Mass/volume] in Serum or Plasma [2345-7] 07/07/2024 03:04 PM 92 mg/dL N Blood chemistry[[id number]] Glucose [Mass/volume] in Serum or Plasma [2345-7] 07/07/2024 09:40 AM 165 mg/dL N Blood chemistry[[id number]] Glucose [Mass/volume] in Serum or Plasma [2345-7] 07/07/2024 10:25 AM 119 mg/dL N Blood chemistry[[id number]] Glucose [Mass/volume] in Serum or Plasma [2345-7] 07/06/2024 12:10 PM 250 mg/dL N Blood chemistry[[id number]] Glucose [Mass/volume] in Serum or Plasma [2345-7] 07/06/2024 09:18 AM 121 mg/dL N Blood chemistry[[id number]] Glucose [Mass/volume] in Serum or Plasma [2345-7] 07/06/2024 03:17 PM 217 mg/dL N Blood chemistry[[id number]] Glucose [Mass/volume] in Serum or Plasma [2345-7] 07/06/2024 09:58 AM 118 mg/dL N Blood chemistry[[id number]] Glucose [Mass/volume] in Serum or Plasma [2345-7] 07/05/2024 05:15 PM 129 mg/dL N Blood chemistry[[id number]] Glucose [Mass/volume] in Serum or Plasma [2345-7] 07/05/2024 01:28 PM 175 mg/dL N Blood chemistry[[id number]] Glucose [Mass/volume] in Serum or Plasma [2345-7] 07/05/2024 10:31 AM 128 mg/dL N Blood chemistry[[id number]] Glucose [Mass/volume] in Serum or Plasma [2345-7] 07/05/2024 10:54 AM 124 mg/dL N Blood chemistry[[id number]] Glucose [Mass/volume] in Serum or Plasma [2345-7] 07/04/2024 01:00 PM 183 mg/dL N Blood chemistry[[id number]] Glucose [Mass/volume] in Serum or Plasma [2345-7] 07/04/2024 05:54 PM 113 mg/dL N Blood chemistry[[id number]] Glucose [Mass/volume] in Serum or Plasma [2345-7] 07/04/2024 10:33 AM 121 mg/dL N Blood chemistry[[id number]] Glucose [Mass/volume] in Serum or Plasma [2345-7] 07/04/2024 09:15 AM 128 mg/dL N Blood chemistry[[id number]] Glucose [Mass/volume] in Serum or Plasma [2345-7] 07/03/2024 12:59 PM 167 mg/dL N Blood chemistry[[id number]] Glucose [Mass/volume] in Serum or Plasma [2345-7] 07/03/2024 11:19 AM 125 mg/dL N Blood chemistry[[id number]] Glucose [Mass/volume] in Serum or Plasma [2345-7] 07/03/2024 05:30 PM 136 mg/dL N Blood chemistry[[id number]] Glucose [Mass/volume] in Serum or Plasma [2345-7] 07/03/2024 10:35 AM 121 mg/dL N Blood chemistry[[id number]] Glucose [Mass/volume] in Serum or Plasma [2345-7] 07/02/2024 12:51 PM 170 mg/dL N Blood chemistry[[id number]] Glucose [Mass/volume] in Serum or Plasma [2345-7] 07/02/2024 10:05 AM 178 mg/dL N Blood chemistry[[id number]] Glucose [Mass/volume] in Serum or Plasma [2345-7] 07/02/2024 10:34 AM 113 mg/dL N Blood chemistry[[id number]] Glucose [Mass/volume] in Serum or Plasma [2345-7] 07/02/2024 07:18 AM 133 mg/dL N Blood chemistry[[id number]] Glucose [Mass/volume] in Serum or Plasma [2345-7] 07/01/2024 01:13 PM 190 mg/dL N Blood chemistry[[id number]] Glucose [Mass/volume] in Serum or Plasma [2345-7] 07/01/2024 11:25 AM 146 mg/dL N Blood chemistry[[id number]] Glucose [Mass/volume] in Serum or Plasma [2345-7] 07/01/2024 06:22 PM 120 mg/dL N Blood chemistry[[id number]] Glucose [Mass/volume] in Serum or Plasma [2345-7] 07/01/2024 09:40 AM 134 mg/dL N Blood chemistry[[id number]] Glucose [Mass/volume] in Serum or Plasma [2345-7] 06/30/2024 06:13 PM 144 mg/dL N Blood chemistry[[id number]] Glucose [Mass/volume] in Serum or Plasma [2345-7] 06/30/2024 01:28 PM 126 mg/dL N Blood chemistry[[id number]] Glucose [Mass/volume] in Serum or Plasma [2345-7] 06/30/2024 10:02 AM 168 mg/dL N Blood chemistry[[id number]] Glucose [Mass/volume] in Serum or Plasma [2345-7] 06/30/2024 10:25 AM 103 mg/dL N Blood chemistry[[id number]] Glucose [Mass/volume] in Serum or Plasma [2345-7] 06/29/2024 01:19 PM 207 mg/dL N Blood chemistry[[id number]] Glucose [Mass/volume] in Serum or Plasma [2345-7] 06/29/2024 10:50 AM 139 mg/dL N Blood chemistry[[id number]] Glucose [Mass/volume] in Serum or Plasma [2345-7] 06/29/2024 05:56 PM 190 mg/dL N Blood chemistry[[id number]] Glucose [Mass/volume] in Serum or Plasma [2345-7] 06/29/2024 11:12 AM 103 mg/dL N Blood chemistry[[id number]] Glucose [Mass/volume] in Serum or Plasma [2345-7] 06/28/2024 01:02 PM 184 mg/dL N Blood chemistry[[id number]] Glucose [Mass/volume] in Serum or Plasma [2345-7] 06/28/2024 10:18 AM 131 mg/dL N Blood chemistry[[id number]] Glucose [Mass/volume] in Serum or Plasma [2345-7] 06/28/2024 04:32 PM 199 mg/dL N Blood chemistry[[id number]] Glucose [Mass/volume] in Serum or Plasma [2345-7] 06/28/2024 11:39 AM 130 mg/dL N Blood chemistry[[id number]] Glucose [Mass/volume] in Serum or Plasma [2345-7] 06/27/2024 10:57 AM 177 mg/dL N Blood chemistry[[id number]] Glucose [Mass/volume] in Serum or Plasma [2345-7] 06/27/2024 07:32 AM 108 mg/dL N Blood chemistry[[id number]] Glucose [Mass/volume] in Serum or Plasma [2345-7] 06/27/2024 10:31 AM 144 mg/dL N Blood chemistry[[id number]] Glucose [Mass/volume] in Serum or Plasma [2345-7] 06/26/2024 11:27 AM 132 mg/dL N Blood chemistry[[id number]] Glucose [Mass/volume] in Serum or Plasma [2345-7] 06/26/2024 05:51 PM 233 mg/dL N Blood chemistry[[id number]] Glucose [Mass/volume] in Serum or Plasma [2345-7] 06/26/2024 10:20 AM 123 mg/dL N Blood chemistry[[id number]] Glucose [Mass/volume] in Serum or Plasma [2345-7] 06/25/2024 06:26 PM 151 mg/dL N Blood chemistry[[id number]] Glucose [Mass/volume] in Serum or Plasma [2345-7] 06/25/2024 10:59 AM 134 mg/dL N Blood chemistry[[id number]] Glucose [Mass/volume] in Serum or Plasma [2345-7] 06/25/2024 10:19 AM 157 mg/dL N Blood chemistry[[id number]] Glucose [Mass/volume] in Serum or Plasma [2345-7] 06/24/2024 11:39 AM 146 mg/dL N Blood chemistry[[id number]] Glucose [Mass/volume] in Serum or Plasma [2345-7] 06/24/2024 10:55 AM 157 mg/dL N Blood chemistry[[id number]] Glucose [Mass/volume] in Serum or Plasma [2345-7] 06/24/2024 07:02 AM 139 mg/dL N Blood chemistry[[id number]] Glucose [Mass/volume] in Serum or Plasma [2345-7] 06/23/2024 06:54 PM 149 mg/dL N Blood chemistry[[id number]] Glucose [Mass/volume] in Serum or Plasma [2345-7] 06/23/2024 10:23 AM 153 mg/dL N Blood chemistry[[id number]] Glucose [Mass/volume] in Serum or Plasma [2345-7] 06/23/2024 10:49 AM 133 mg/dL N Blood chemistry[[id number]] Glucose [Mass/volume] in Serum or Plasma [2345-7] 06/22/2024 10:53 AM 173 mg/dL N Blood chemistry[[id number]] Glucose [Mass/volume] in Serum or Plasma [2345-7] 06/22/2024 06:38 PM 160 mg/dL N Blood chemistry[[id number]] Glucose [Mass/volume] in Serum or Plasma [2345-7] 06/22/2024 11:02 AM 151 mg/dL N Blood chemistry[[id number]] Glucose [Mass/volume] in Serum or Plasma [2345-7] 06/21/2024 06:37 PM 147 mg/dL N Blood chemistry[[id number]] Glucose [Mass/volume] in Serum or Plasma [2345-7] 06/21/2024 11:54 AM 111 mg/dL N Blood chemistry[[id number]] Glucose [Mass/volume] in Serum or Plasma [2345-7] 06/21/2024 10:40 AM 126 mg/dL N Blood chemistry[[id number]] Glucose [Mass/volume] in Serum or Plasma [2345-7] 06/20/2024 11:27 AM 182 mg/dL N Blood chemistry[[id number]] Glucose [Mass/volume] in Serum or Plasma [2345-7] 06/20/2024 06:15 PM 116 mg/dL N Blood chemistry[[id number]] Glucose [Mass/volume] in Serum or Plasma [2345-7] 06/20/2024 12:03 PM 151 mg/dL N Blood chemistry[[id number]] Glucose [Mass/volume] in Serum or Plasma [2345-7] 06/19/2024 11:12 AM 156 mg/dL N Blood chemistry[[id number]] Glucose [Mass/volume] in Serum or Plasma [2345-7] 06/19/2024 05:53 PM 157 mg/dL N Blood chemistry[[id number]] Glucose [Mass/volume] in Serum or Plasma [2345-7] 06/19/2024 11:06 AM 99 mg/dL N Blood chemistry[[id number]] Glucose [Mass/volume] in Serum or Plasma [2345-7] 06/18/2024 11:51 AM 229 mg/dL N Blood chemistry[[id number]] Glucose [Mass/volume] in Serum or Plasma [2345-7] 06/18/2024 05:26 PM 176 mg/dL N Blood chemistry[[id number]] Glucose [Mass/volume] in Serum or Plasma [2345-7] 06/18/2024 11:34 AM 122 mg/dL N Blood chemistry[[id number]] Glucose [Mass/volume] in Serum or Plasma [2345-7] 06/17/2024 10:46 AM 211 mg/dL N Blood chemistry[[id number]] Glucose [Mass/volume] in Serum or Plasma [2345-7] 06/17/2024 09:34 AM 211 mg/dL N Blood chemistry[[id number]] Glucose [Mass/volume] in Serum or Plasma [2345-7] 06/17/2024 06:11 PM 199 mg/dL N Blood chemistry[[id number]] Glucose [Mass/volume] in Serum or Plasma [2345-7] 06/17/2024 11:00 AM 179 mg/dL N Blood chemistry[[id number]] Glucose [Mass/volume] in Serum or Plasma [2345-7] 06/16/2024 06:15 PM 137 mg/dL N Blood chemistry[[id number]] Glucose [Mass/volume] in Serum or Plasma [2345-7] 06/16/2024 10:23 AM 372 mg/dL N Blood chemistry[[id number]] Glucose [Mass/volume] in Serum or Plasma [2345-7] 06/16/2024 10:35 AM 117 mg/dL N Blood chemistry[[id number]] Glucose [Mass/volume] in Serum or Plasma [2345-7] 06/15/2024 11:35 AM 145 mg/dL N Blood chemistry[[id number]] Glucose [Mass/volume] in Serum or Plasma [2345-7] 06/15/2024 04:54 PM 286 mg/dL N Blood chemistry[[id number]] Glucose [Mass/volume] in Serum or Plasma [2345-7] 06/15/2024 11:01 AM 127 mg/dL N Blood chemistry[[id number]] Glucose [Mass/volume] in Serum or Plasma [2345-7] 06/14/2024 05:10 PM 153 mg/dL N Blood chemistry[[id number]] Glucose [Mass/volume] in Serum or Plasma [2345-7] 06/14/2024 11:42 AM 117 mg/dL N Blood chemistry[[id number]] Glucose [Mass/volume] in Serum or Plasma [2345-7] 06/14/2024 10:23 AM 139 mg/dL N Blood chemistry[[id number]] Glucose [Mass/volume] in Serum or Plasma [2345-7] 06/13/2024 11:00 AM 109 mg/dL N Blood chemistry[[id number]] Glucose [Mass/volume] in Serum or Plasma [2345-7] 06/13/2024 06:00 PM 172 mg/dL N Blood chemistry[[id number]] Glucose [Mass/volume] in Serum or Plasma [2345-7] 06/13/2024 10:41 AM 161 mg/dL N Blood chemistry[[id number]] Glucose [Mass/volume] in Serum or Plasma [2345-7] 06/12/2024 05:09 PM 167 mg/dL N Blood chemistry[[id number]] Glucose [Mass/volume] in Serum or Plasma [2345-7] 06/12/2024 11:28 AM 182 mg/dL N Blood chemistry[[id number]] Glucose [Mass/volume] in Serum or Plasma [2345-7] 06/12/2024 11:05 AM 143 mg/dL N Blood chemistry[[id number]] Glucose [Mass/volume] in Serum or Plasma [2345-7] 06/11/2024 06:07 PM 90 mg/dL N Blood chemistry[[id number]] Glucose [Mass/volume] in Serum or Plasma [2345-7] 06/11/2024 11:02 AM 115 mg/dL N Blood chemistry[[id number]] Glucose [Mass/volume] in Serum or Plasma [2345-7] 06/11/2024 10:45 AM 113 mg/dL N Blood chemistry[[id number]] Glucose [Mass/volume] in Serum or Plasma [2345-7] 06/10/2024 05:57 PM 180 mg/dL N Blood chemistry[[id number]] Glucose [Mass/volume] in Serum or Plasma [2345-7] 06/10/2024 10:52 AM 143 mg/dL N Blood chemistry[[id number]] Glucose [Mass/volume] in Serum or Plasma [2345-7] 06/10/2024 09:54 AM 111 mg/dL N Blood chemistry[[id number]] Glucose [Mass/volume] in Serum or Plasma [2345-7] 06/09/2024 06:09 PM 136 mg/dL N Blood chemistry[[id number]] Glucose [Mass/volume] in Serum or Plasma [2345-7] 06/09/2024 06:08 PM 222 mg/dL N Blood chemistry[[id number]] Glucose [Mass/volume] in Serum or Plasma [2345-7] 06/09/2024 10:38 AM 205 mg/dL N Blood chemistry[[id number]] Glucose [Mass/volume] in Serum or Plasma [2345-7] 06/08/2024 05:58 PM 179 mg/dL N Blood chemistry[[id number]] Glucose [Mass/volume] in Serum or Plasma [2345-7] 06/08/2024 10:56 AM 169 mg/dL N Blood chemistry[[id number]] Glucose [Mass/volume] in Serum or Plasma [2345-7] 06/08/2024 11:05 AM 191 mg/dL N Blood chemistry[[id number]] Glucose [Mass/volume] in Serum or Plasma [2345-7] 06/07/2024 12:15 PM 174 mg/dL N Blood chemistry[[id number]] Glucose [Mass/volume] in Serum or Plasma [2345-7] 06/07/2024 06:38 PM 140 mg/dL N Blood chemistry[[id number]] Glucose [Mass/volume] in Serum or Plasma [2345-7] 06/07/2024 10:45 AM 124 mg/dL N Blood chemistry[[id number]] Glucose [Mass/volume] in Serum or Plasma [2345-7] 06/06/2024 06:50 PM 110 mg/dL N Blood chemistry[[id number]] Glucose [Mass/volume] in Serum or Plasma [2345-7] 06/06/2024 10:02 AM 128 mg/dL N Blood chemistry[[id number]] Glucose [Mass/volume] in Serum or Plasma [2345-7] 06/06/2024 10:01 AM 121 mg/dL N Blood chemistry[[id number]] Glucose [Mass/volume] in Serum or Plasma [2345-7] 06/06/2024 09:56 AM 121 mg/dL N Blood chemistry[[id number]] Glucose [Mass/volume] in Serum or Plasma [2345-7] 06/05/2024 06:09 PM 141 mg/dL N Blood chemistry[[id number]] Glucose [Mass/volume] in Serum or Plasma [2345-7] 06/05/2024 11:17 AM 129 mg/dL N Blood chemistry[[id number]] Glucose [Mass/volume] in Serum or Plasma [2345-7] 06/05/2024 10:24 AM 92 mg/dL N Blood chemistry[[id number]] Glucose [Mass/volume] in Serum or Plasma [2345-7] 06/04/2024 06:40 PM 117 mg/dL N Blood chemistry[[id number]] Glucose [Mass/volume] in Serum or Plasma [2345-7] 06/04/2024 11:19 AM 169 mg/dL N Blood chemistry[[id number]] Glucose [Mass/volume] in Serum or Plasma [2345-7] 06/04/2024 10:00 AM 98 mg/dL N Blood chemistry[[id number]] Glucose [Mass/volume] in Serum or Plasma [2345-7] 06/03/2024 05:45 PM 131 mg/dL N Blood chemistry[[id number]] Glucose [Mass/volume] in Serum or Plasma [2345-7] 06/03/2024 10:36 AM 162 mg/dL N Blood chemistry[[id number]] Glucose [Mass/volume] in Serum or Plasma [2345-7] 06/03/2024 10:24 AM 114 mg/dL N Blood chemistry[[id number]] Glucose [Mass/volume] in Serum or Plasma [2345-7] 06/02/2024 06:44 PM 175 mg/dL N Blood chemistry[[id number]] Glucose [Mass/volume] in Serum or Plasma [2345-7] 06/02/2024 11:03 AM 174 mg/dL N Blood chemistry[[id number]] Glucose [Mass/volume] in Serum or Plasma [2345-7] 06/02/2024 11:02 AM 174 mg/dL N Blood chemistry[[id number]] Glucose [Mass/volume] in Serum or Plasma [2345-7] 06/02/2024 10:00 AM 101 mg/dL N Blood chemistry[[id number]] Glucose [Mass/volume] in Serum or Plasma [2345-7] 06/01/2024 11:15 AM 126 mg/dL N Blood chemistry[[id number]] Glucose [Mass/volume] in Serum or Plasma [2345-7] 06/01/2024 04:59 PM 165 mg/dL N Blood chemistry[[id number]] Glucose [Mass/volume] in Serum or Plasma [2345-7] 06/01/2024 11:07 AM 121 mg/dL N Blood chemistry[[id number]] Glucose [Mass/volume] in Serum or Plasma [2345-7] 05/31/2024 10:33 AM 192 mg/dL N Blood chemistry[[id number]] Glucose [Mass/volume] in Serum or Plasma [2345-7] 05/31/2024 06:20 PM 154 mg/dL N Blood chemistry[[id number]] Glucose [Mass/volume] in Serum or Plasma [2345-7] 05/31/2024 11:14 AM 151 mg/dL N Blood chemistry[[id number]] Glucose [Mass/volume] in Serum or Plasma [2345-7] 05/30/2024 12:31 PM 167 mg/dL N Blood chemistry[[id number]] Glucose [Mass/volume] in Serum or Plasma [2345-7] 05/30/2024 06:56 PM 135 mg/dL N Blood chemistry[[id number]] Glucose [Mass/volume] in Serum or Plasma [2345-7] 05/30/2024 11:23 AM 113 mg/dL N Blood chemistry[[id number]] Glucose [Mass/volume] in Serum or Plasma [2345-7] 05/29/2024 11:49 AM 117 mg/dL N Blood chemistry[[id number]] Glucose [Mass/volume] in Serum or Plasma [2345-7] 05/29/2024 10:58 AM 177 mg/dL N Blood chemistry[[id number]] Glucose [Mass/volume] in Serum or Plasma [2345-7] 05/29/2024 10:57 AM 112 mg/dL N Blood chemistry[[id number]] Glucose [Mass/volume] in Serum or Plasma [2345-7] 05/28/2024 06:16 PM 134 mg/dL N Blood chemistry[[id number]] Glucose [Mass/volume] in Serum or Plasma [2345-7] 05/28/2024 10:51 AM 181 mg/dL N Blood chemistry[[id number]] Glucose [Mass/volume] in Serum or Plasma [2345-7] 05/28/2024 10:12 AM 111 mg/dL N Blood chemistry[[id number]] Glucose [Mass/volume] in Serum or Plasma [2345-7] 05/27/2024 06:28 PM 133 mg/dL N Blood chemistry[[id number]] Glucose [Mass/volume] in Serum or Plasma [5-7] 05/27/2024 12:22 PM 113 mg/dL N Blood chemistry[[id number]] Glucose [Mass/volume] in Serum or Plasma [2345-7] 05/27/2024 10:59 AM 125 mg/dL N Blood chemistry[[id number]] Glucose [Mass/volume] in Serum or Plasma [5-7] 05/26/2024 12:28 PM 151 mg/dL N Blood chemistry[[id number]] Glucose [Mass/volume] in Serum or Plasma [5-7] 05/25/2024 05:33 PM 137 mg/dL N Blood chemistry[[id number]] Glucose [Mass/volume] in Serum or Plasma [2345-7] 05/25/2024 10:49 AM 130 mg/dL N Blood chemistry[[id number]] Glucose [Mass/volume] in Serum or Plasma [5-7] 05/24/2024 10:37 AM 153 mg/dL N Blood chemistry[[id number]] Glucose [Mass/volume] in Serum or Plasma [5-7] 05/24/2024 05:08 PM 146 mg/dL N Blood chemistry[[id number]] Glucose [Mass/volume] in Serum or Plasma [2345-7] 05/23/2024 05:50 PM 177 mg/dL N Blood chemistry[[id number]] Glucose [Mass/volume] in Serum or Plasma [5-7] 05/23/2024 12:32 PM 164 mg/dL N Blood chemistry[[id number]] Glucose [Mass/volume] in Serum or Plasma [2345-7] 05/23/2024 11:12 AM 164 mg/dL N Blood chemistry[[id number]] Glucose [Mass/volume] in Serum or Plasma [5-7] 05/23/2024 10:28 AM 121 mg/dL N Blood chemistry[[id number]] Glucose [Mass/volume] in Serum or Plasma [2345-7] 05/22/2024 05:41 PM 237 mg/dL N Blood chemistry[[id number]] Glucose [Mass/volume] in Serum or Plasma [2345-7] 05/22/2024 11:10 AM 130 mg/dL N Blood chemistry[[id number]] Glucose [Mass/volume] in Serum or Plasma [2345-7] 05/22/2024 10:52 AM 130 mg/dL N Blood chemistry[[id number]] Glucose [Mass/volume] in Serum or Plasma [2345-7] 05/22/2024 10:15 AM 90 mg/dL N Blood chemistry[[id number]] Glucose [Mass/volume] in Serum or Plasma [2345-7] 05/21/2024 06:09 PM 159 mg/dL N Blood chemistry[[id number]] Glucose [Mass/volume] in Serum or Plasma [2345-7] 05/21/2024 10:08 AM 100 mg/dL N Blood chemistry[[id number]] Glucose [Mass/volume] in Serum or Plasma [2345-7] 05/21/2024 09:43 AM 191 mg/dL N Blood chemistry[[id number]] Glucose [Mass/volume] in Serum or Plasma [2345-7] 05/20/2024 05:54 PM 135 mg/dL N Blood chemistry[[id number]] Glucose [Mass/volume] in Serum or Plasma [2345-7] 05/20/2024 11:20 AM 158 mg/dL N Blood chemistry[[id number]] Glucose [Mass/volume] in Serum or Plasma [2345-7] 05/20/2024 10:32 AM 113 mg/dL N Blood chemistry[[id number]] Glucose [Mass/volume] in Serum or Plasma [2345-7] 05/19/2024 05:41 PM 164 mg/dL N Blood chemistry[[id number]] Glucose [Mass/volume] in Serum or Plasma [2345-7] 05/19/2024 10:19 AM 208 mg/dL N Blood chemistry[[id number]] Glucose [Mass/volume] in Serum or Plasma [2345-7] 05/19/2024 11:23 AM 156 mg/dL N Blood chemistry[[id number]] Glucose [Mass/volume] in Serum or Plasma [2345-7] 05/18/2024 11:04 AM 137 mg/dL N Blood chemistry[[id number]] Glucose [Mass/volume] in Serum or Plasma [2345-7] 05/18/2024 05:36 PM 223 mg/dL N Blood chemistry[[id number]] Glucose [Mass/volume] in Serum or Plasma [2345-7] 05/18/2024 11:25 AM 119 mg/dL N Blood chemistry[[id number]] Glucose [Mass/volume] in Serum or Plasma [2345-7] 05/17/2024 05:19 PM 139 mg/dL N Blood chemistry[[id number]] Glucose [Mass/volume] in Serum or Plasma [2345-7] 05/17/2024 11:31 AM 165 mg/dL N Blood chemistry[[id number]] Glucose [Mass/volume] in Serum or Plasma [2345-7] 05/17/2024 11:28 AM 118 mg/dL N Blood chemistry[[id number]] Glucose [Mass/volume] in Serum or Plasma [2345-7] 05/16/2024 05:26 PM 124 mg/dL N Blood chemistry[[id number]] Glucose [Mass/volume] in Serum or Plasma [2345-7] 05/16/2024 11:43 AM 150 mg/dL N Blood chemistry[[id number]] Glucose [Mass/volume] in Serum or Plasma [2345-7] 05/16/2024 11:02 AM 137 mg/dL N Blood chemistry[[id number]] Glucose [Mass/volume] in Serum or Plasma [2345-7] 05/16/2024 10:45 AM 150 mg/dL N Blood chemistry[[id number]] Glucose [Mass/volume] in Serum or Plasma [2345-7] 05/15/2024 01:16 PM 140 mg/dL N Blood chemistry[[id number]] Glucose [Mass/volume] in Serum or Plasma [2345-7] 05/15/2024 10:36 AM 122 mg/dL N Blood chemistry[[id number]] Glucose [Mass/volume] in Serum or Plasma [2345-7] 05/15/2024 07:11 AM 135 mg/dL N Blood chemistry[[id number]] Glucose [Mass/volume] in Serum or Plasma [2345-7] 05/14/2024 05:27 PM 115 mg/dL N Blood chemistry[[id number]] Glucose [Mass/volume] in Serum or Plasma [2345-7] 05/14/2024 11:33 AM 183 mg/dL N Blood chemistry[[id number]] Glucose [Mass/volume] in Serum or Plasma [2345-7] 05/14/2024 10:14 AM 204 mg/dL N Blood chemistry[[id number]] Glucose [Mass/volume] in Serum or Plasma [2345-7] 05/13/2024 05:42 PM 176 mg/dL N Blood chemistry[[id number]] Glucose [Mass/volume] in Serum or Plasma [2345-7] 05/13/2024 10:35 AM 120 mg/dL N Blood chemistry[[id number]] Glucose [Mass/volume] in Serum or Plasma [2345-7] 05/13/2024 09:23 AM 155 mg/dL N Blood chemistry[[id number]] Glucose [Mass/volume] in Serum or Plasma [2345-7] 05/12/2024 05:30 PM 106 mg/dL N Blood chemistry[[id number]] Glucose [Mass/volume] in Serum or Plasma [2345-7] 05/12/2024 10:37 AM 113 mg/dL N Blood chemistry[[id number]] Glucose [Mass/volume] in Serum or Plasma [2345-7] 05/11/2024 06:43 PM 134 mg/dL N Blood chemistry[[id number]] Glucose [Mass/volume] in Serum or Plasma [2345-7] 05/11/2024 01:31 PM 109 mg/dL N Blood chemistry[[id number]] Glucose [Mass/volume] in Serum or Plasma [2345-7] 05/11/2024 10:35 AM 109 mg/dL N Blood chemistry[[id number]] Glucose [Mass/volume] in Serum or Plasma [2345-7] 05/10/2024 10:29 AM 146 mg/dL N Blood chemistry[[id number]] Glucose [Mass/volume] in Serum or Plasma [2345-7] 05/10/2024 05:15 PM 180 mg/dL N Blood chemistry[[id number]] Glucose [Mass/volume] in Serum or Plasma [2345-7] 05/10/2024 11:25 AM 105 mg/dL N Blood chemistry[[id number]] Glucose [Mass/volume] in Serum or Plasma [2345-7] 05/09/2024 05:59 PM 193 mg/dL N Blood chemistry[[id number]] Glucose [Mass/volume] in Serum or Plasma [2345-7] 05/09/2024 10:37 AM 141 mg/dL N Blood chemistry[[id number]] Glucose [Mass/volume] in Serum or Plasma [2345-7] 05/09/2024 10:14 AM 88 mg/dL N Blood chemistry[[id number]] Glucose [Mass/volume] in Serum or Plasma [2345-7] 05/08/2024 06:55 PM 134 mg/dL N Blood chemistry[[id number]] Glucose [Mass/volume] in Serum or Plasma [2345-7] 05/08/2024 10:06 AM 66 mg/dL N Blood chemistry[[id number]] Glucose [Mass/volume] in Serum or Plasma [2345-7] 05/08/2024 10:04 AM 176 mg/dL N Blood chemistry[[id number]] Glucose [Mass/volume] in Serum or Plasma [2345-7] 05/08/2024 09:36 AM 176 mg/dL N Blood chemistry[[id number]] Glucose [Mass/volume] in Serum or Plasma [2345-7] 05/07/2024 10:44 AM 149 mg/dL N Blood chemistry[[id number]] Glucose [Mass/volume] in Serum or Plasma [2345-7] 05/07/2024 10:13 AM 74 mg/dL N Blood chemistry[[id number]] Glucose [Mass/volume] in Serum or Plasma [2345-7] 05/07/2024 08:39 AM 81 mg/dL N Blood chemistry[[id number]] Glucose [Mass/volume] in Serum or Plasma [2345-7] 05/06/2024 05:57 PM 89 mg/dL N Blood chemistry[[id number]] Glucose [Mass/volume] in Serum or Plasma [2345-7] 05/06/2024 11:16 AM 79 mg/dL N Blood chemistry[[id number]] Glucose [Mass/volume] in Serum or Plasma [2345-7] 05/06/2024 10:41 AM 187 mg/dL N Blood chemistry[[id number]] Glucose [Mass/volume] in Serum or Plasma [2345-7] 05/05/2024 11:31 AM 143 mg/dL N Blood chemistry[[id number]] Glucose [Mass/volume] in Serum or Plasma [2345-7] 05/05/2024 10:53 AM 189 mg/dL N Blood chemistry[[id number]] Glucose [Mass/volume] in Serum or Plasma [2345-7] 05/05/2024 10:52 AM 189 mg/dL N Blood chemistry[[id number]] Glucose [Mass/volume] in Serum or Plasma [2345-7] 05/04/2024 06:42 PM 161 mg/dL N Blood chemistry[[id number]] Glucose [Mass/volume] in Serum or Plasma [2345-7] 05/04/2024 10:53 AM 137 mg/dL N Blood chemistry[[id number]] Glucose [Mass/volume] in Serum or Plasma [2345-7] 05/04/2024 11:35 AM 89 mg/dL N Blood chemistry[[id number]] Glucose [Mass/volume] in Serum or Plasma [2345-7] 05/03/2024 10:31 AM 135 mg/dL N Blood chemistry[[id number]] Glucose [Mass/volume] in Serum or Plasma [2345-7] 05/03/2024 05:36 PM 127 mg/dL N Blood chemistry[[id number]] Glucose [Mass/volume] in Serum or Plasma [2345-7] 05/03/2024 11:43 AM 108 mg/dL N Blood chemistry[[id number]] Glucose [Mass/volume] in Serum or Plasma [2345-7] 05/02/2024 05:45 PM 116 mg/dL N Blood chemistry[[id number]] Glucose [Mass/volume] in Serum or Plasma [2345-7] 05/02/2024 10:46 AM 161 mg/dL N Blood chemistry[[id number]] Glucose [Mass/volume] in Serum or Plasma [2345-7] 05/02/2024 10:38 AM 92 mg/dL N Blood chemistry[[id number]] Glucose [Mass/volume] in Serum or Plasma [2345-7] 05/01/2024 05:20 PM 195 mg/dL N Blood chemistry[[id number]] Glucose [Mass/volume] in Serum or Plasma [2345-7] 05/01/2024 10:25 AM 136 mg/dL N Blood chemistry[[id number]] Glucose [Mass/volume] in Serum or Plasma [2345-7] 05/01/2024 10:13 AM 332 mg/dL N Blood chemistry[[id number]] Glucose [Mass/volume] in Serum or Plasma [2345-7] 04/30/2024 12:13 PM 107 mg/dL N Blood chemistry[[id number]] Glucose [Mass/volume] in Serum or Plasma [2345-7] 04/30/2024 06:39 PM 165 mg/dL N Blood chemistry[[id number]] Glucose [Mass/volume] in Serum or Plasma [2345-7] 04/30/2024 10:00 AM 110 mg/dL N Blood chemistry[[id number]] Glucose [Mass/volume] in Serum or Plasma [2345-7] 04/29/2024 05:52 PM 142 mg/dL N Blood chemistry[[id number]] Glucose [Mass/volume] in Serum or Plasma [2345-7] 04/29/2024 10:44 AM 155 mg/dL N Blood chemistry[[id number]] Glucose [Mass/volume] in Serum or Plasma [2345-7] 04/29/2024 10:41 AM 155 mg/dL N Blood chemistry[[id number]] Glucose [Mass/volume] in Serum or Plasma [2345-7] 04/29/2024 10:00 AM 123 mg/dL N Blood chemistry[[id number]] Glucose [Mass/volume] in Serum or Plasma [2345-7] 04/28/2024 06:06 PM 147 mg/dL N Blood chemistry[[id number]] Glucose [Mass/volume] in Serum or Plasma [2345-7] 04/28/2024 11:31 AM 209 mg/dL N Blood chemistry[[id number]] Glucose [Mass/volume] in Serum or Plasma [2345-7] 04/28/2024 11:04 AM 144 mg/dL N Glucose [Mass/volume] in Serum or Plasma [2345-7] 04/28/2024 11:04 AM 144 mg/dL N Blood chemistry[[id number]] Glucose [Mass/volume] in Serum or Plasma [2345-7] 04/27/2024 12:25 PM 166 mg/dL N Blood chemistry[[id number]] Glucose [Mass/volume] in Serum or Plasma [2345-7] 04/27/2024 07:43 AM 139 mg/dL N Blood chemistry[[id number]] Glucose [Mass/volume] in Serum or Plasma [2345-7] 04/27/2024 10:28 AM 151 mg/dL N Blood chemistry[[id number]] Glucose [Mass/volume] in Serum or Plasma [2345-7] 04/26/2024 11:46 AM 135 mg/dL N Blood chemistry[[id number]] Glucose [Mass/volume] in Serum or Plasma [2345-7] 04/26/2024 11:45 AM 135 mg/dL N Blood chemistry[[id number]] Glucose [Mass/volume] in Serum or Plasma [2345-7] 04/26/2024 11:43 AM 117 mg/dL N Blood chemistry[[id number]] Glucose [Mass/volume] in Serum or Plasma [2345-7] 04/26/2024 11:00 AM 157 mg/dL N Blood chemistry[[id number]] Glucose [Mass/volume] in Serum or Plasma [2345-7] 04/25/2024 10:20 AM 127 mg/dL N Blood chemistry[[id number]] Glucose [Mass/volume] in Serum or Plasma [2345-7] 04/25/2024 09:34 AM 213 mg/dL N Blood chemistry[[id number]] Glucose [Mass/volume] in Serum or Plasma [2345-7] 04/24/2024 05:13 PM 161 mg/dL N Blood chemistry[[id number]] Glucose [Mass/volume] in Serum or Plasma [2345-7] 04/24/2024 10:29 AM 171 mg/dL N Blood chemistry[[id number]] Glucose [Mass/volume] in Serum or Plasma [2345-7] 04/24/2024 10:09 AM 161 mg/dL N Blood chemistry[[id number]] Glucose [Mass/volume] in Serum or Plasma [2345-7] 04/23/2024 10:29 AM 159 mg/dL N Blood chemistry[[id number]] Glucose [Mass/volume] in Serum or Plasma [2345-7] 04/23/2024 05:15 PM 224 mg/dL N Blood chemistry[[id number]] Glucose [Mass/volume] in Serum or Plasma [2345-7] 04/23/2024 10:18 AM 158 mg/dL N Blood chemistry[[id number]] Glucose [Mass/volume] in Serum or Plasma [2345-7] 04/22/2024 05:16 PM 143 mg/dL N Blood chemistry[[id number]] Glucose [Mass/volume] in Serum or Plasma [2345-7] 04/22/2024 10:14 AM 128 mg/dL N Blood chemistry[[id number]] Glucose [Mass/volume] in Serum or Plasma [2345-7] 04/21/2024 05:50 PM 150 mg/dL N Blood chemistry[[id number]] Glucose [Mass/volume] in Serum or Plasma [2345-7] 04/21/2024 01:46 PM 130 mg/dL N Blood chemistry[[id number]] Glucose [Mass/volume] in Serum or Plasma [2345-7] 04/21/2024 10:15 AM 183 mg/dL N Blood chemistry[[id number]] Glucose [Mass/volume] in Serum or Plasma [2345-7] 04/21/2024 10:14 AM 183 mg/dL N Blood chemistry[[id number]] Glucose [Mass/volume] in Serum or Plasma [2345-7] 04/20/2024 06:24 PM 156 mg/dL N Blood chemistry[[id number]] Glucose [Mass/volume] in Serum or Plasma [2345-7] 04/20/2024 10:32 AM 182 mg/dL N Blood chemistry[[id number]] Glucose [Mass/volume] in Serum or Plasma [2345-7] 04/20/2024 10:47 AM 124 mg/dL N Blood chemistry[[id number]] Glucose [Mass/volume] in Serum or Plasma [2345-7] 04/19/2024 09:40 AM 139 mg/dL N Blood chemistry[[id number]] Glucose [Mass/volume] in Serum or Plasma [2345-7] 04/19/2024 05:28 PM 179 mg/dL N Blood chemistry[[id number]] Glucose [Mass/volume] in Serum or Plasma [2345-7] 04/18/2024 06:27 PM 127 mg/dL N Blood chemistry[[id number]] Glucose [Mass/volume] in Serum or Plasma [2345-7] 04/18/2024 12:32 PM 104 mg/dL N Blood chemistry[[id number]] Glucose [Mass/volume] in Serum or Plasma [2345-7] 04/18/2024 10:25 AM 109 mg/dL N Blood chemistry[[id number]] Glucose [Mass/volume] in Serum or Plasma [2345-7] 04/17/2024 11:23 AM 171 mg/dL N Blood chemistry[[id number]] Glucose [Mass/volume] in Serum or Plasma [2345-7] 04/17/2024 11:10 AM 171 mg/dL N Blood chemistry[[id number]] Glucose [Mass/volume] in Serum or Plasma [2345-7] 04/12/2024 08:23 AM 141 mg/dL N Blood chemistry[[id number]] Glucose [Mass/volume] in Serum or Plasma [2345-7] 04/11/2024 06:56 PM 139 mg/dL N Blood chemistry[[id number]] Glucose [Mass/volume] in Serum or Plasma [2345-7] 04/11/2024 12:04 PM 183 mg/dL N Blood chemistry[[id number]] Glucose [Mass/volume] in Serum or Plasma [2345-7] 04/11/2024 10:02 AM 94 mg/dL N Blood chemistry[[id number]] Glucose [Mass/volume] in Serum or Plasma [2345-7] 04/10/2024 04:54 PM 217 mg/dL N Blood chemistry[[id number]] Glucose [Mass/volume] in Serum or Plasma [2345-7] 04/10/2024 10:28 AM 138 mg/dL N Blood chemistry[[id number]] Glucose [Mass/volume] in Serum or Plasma [2345-7] 04/10/2024 10:34 AM 133 mg/dL N Blood chemistry[[id number]] Glucose [Mass/volume] in Serum or Plasma [2345-7] 04/09/2024 10:23 AM 145 mg/dL N Blood chemistry[[id number]] Glucose [Mass/volume] in Serum or Plasma [2345-7] 04/09/2024 10:00 AM 223 mg/dL N Blood chemistry[[id number]] Glucose [Mass/volume] in Serum or Plasma [2345-7] 04/09/2024 07:04 AM 126 mg/dL N Blood chemistry[[id number]] Glucose [Mass/volume] in Serum or Plasma [2345-7] 04/08/2024 06:11 PM 211 mg/dL N Blood chemistry[[id number]] Glucose [Mass/volume] in Serum or Plasma [2345-7] 04/08/2024 05:42 PM 249 mg/dL N Blood chemistry[[id number]] Glucose [Mass/volume] in Serum or Plasma [2345-7] 04/08/2024 10:45 AM 212 mg/dL N Blood chemistry[[id number]] Glucose [Mass/volume] in Serum or Plasma [2345-7] 04/08/2024 10:22 AM 159 mg/dL N Blood chemistry[[id number]] Glucose [Mass/volume] in Serum or Plasma [2345-7] 04/07/2024 05:47 PM 139 mg/dL N Blood chemistry[[id number]] Glucose [Mass/volume] in Serum or Plasma [2345-7] 04/07/2024 11:20 AM 150 mg/dL N Blood chemistry[[id number]] Glucose [Mass/volume] in Serum or Plasma [2345-7] 04/07/2024 10:34 AM 252 mg/dL N Blood chemistry[[id number]] Glucose [Mass/volume] in Serum or Plasma [2345-7] 04/06/2024 04:55 PM 170 mg/dL N Blood chemistry[[id number]] Glucose [Mass/volume] in Serum or Plasma [2345-7] 04/06/2024 10:50 AM 184 mg/dL N Blood chemistry[[id number]] Glucose [Mass/volume] in Serum or Plasma [2345-7] 04/06/2024 09:50 AM 215 mg/dL N Blood chemistry[[id number]] Glucose [Mass/volume] in Serum or Plasma [2345-7] 04/05/2024 05:13 PM 212 mg/dL N Blood chemistry[[id number]] Glucose [Mass/volume] in Serum or Plasma [2345-7] 04/05/2024 10:51 AM 145 mg/dL N Blood chemistry[[id number]] Glucose [Mass/volume] in Serum or Plasma [2345-7] 04/05/2024 10:27 AM 145 mg/dL N Blood chemistry[[id number]] Glucose [Mass/volume] in Serum or Plasma [2345-7] 04/04/2024 06:01 PM 109 mg/dL N Blood chemistry[[id number]] Glucose [Mass/volume] in Serum or Plasma [2345-7] 04/04/2024 11:25 AM 116 mg/dL N Blood chemistry[[id number]] Glucose [Mass/volume] in Serum or Plasma [2345-7] 04/04/2024 10:14 AM 104 mg/dL N Blood chemistry[[id number]] Glucose [Mass/volume] in Serum or Plasma [2345-7] 04/03/2024 04:52 PM 219 mg/dL N Blood chemistry[[id number]] Glucose [Mass/volume] in Serum or Plasma [2345-7] 04/03/2024 12:27 PM 133 mg/dL N Blood chemistry[[id number]] Glucose [Mass/volume] in Serum or Plasma [2345-7] 04/03/2024 12:25 PM 170 mg/dL N Blood chemistry[[id number]] Glucose [Mass/volume] in Serum or Plasma [2345-7] 04/03/2024 11:00 AM 172 mg/dL N Blood chemistry[[id number]] Glucose [Mass/volume] in Serum or Plasma [2345-7] 04/02/2024 12:34 PM 178 mg/dL N Blood chemistry[[id number]] Glucose [Mass/volume] in Serum or Plasma [2345-7] 04/02/2024 11:15 AM 124 mg/dL N Blood chemistry[[id number]] Glucose [Mass/volume] in Serum or Plasma [2345-7] 03/29/2024 11:42 AM 178 mg/dL N Blood chemistry[[id number]] Glucose [Mass/volume] in Serum or Plasma [2345-7] 03/29/2024 11:00 AM 190 mg/dL N Blood chemistry[[id number]] Glucose [Mass/volume] in Serum or Plasma [2345-7] 03/29/2024 10:15 AM 205 mg/dL N Blood chemistry[[id number]] Glucose [Mass/volume] in Serum or Plasma [2345-7] 03/28/2024 12:10 PM 387 mg/dL N Blood chemistry[[id number]] Glucose [Mass/volume] in Serum or Plasma [2345-7] 03/28/2024 10:18 AM 236 mg/dL N Blood chemistry[[id number]] Glucose [Mass/volume] in Serum or Plasma [2345-7] 03/28/2024 08:22 AM 186 mg/dL N Blood chemistry[[id number]] Glucose [Mass/volume] in Serum or Plasma [2345-7] 2024 05:18 PM 270 mg/dL N Blood chemistry[[id number]] Glucose [Mass/volume] in Serum or Plasma [2345-7] 2024 11:06 AM 119 mg/dL N Blood chemistry[[id number]] Glucose [Mass/volume] in Serum or Plasma [2345-7] 2024 10:49 AM 206 mg/dL N Blood chemistry[[id number]] Glucose [Mass/volume] in Serum or Plasma [2345-7] 03/26/2024 05:13 PM 216 mg/dL N Blood chemistry[[id number]] Glucose [Mass/volume] in Serum or Plasma [2345-7] 03/26/2024 10:35 AM 199 mg/dL N Blood chemistry[[id number]] Glucose [Mass/volume] in Serum or Plasma [2345-7] 03/26/2024 10:32 AM 152 mg/dL N Blood chemistry[[id number]] Glucose [Mass/volume] in Serum or Plasma [2345-7] 03/25/2024 11:27 AM 259 mg/dL N Blood chemistry[[id number]] Glucose [Mass/volume] in Serum or Plasma [2345-7] 03/25/2024 10:09 AM 221 mg/dL N Blood chemistry[[id number]] Glucose [Mass/volume] in Serum or Plasma [2345-7] 03/25/2024 08:13 AM 165 mg/dL N Blood chemistry[[id number]] Glucose [Mass/volume] in Serum or Plasma [2345-7] 03/24/2024 05:15 PM 345 mg/dL N Blood chemistry[[id number]] Glucose [Mass/volume] in Serum or Plasma [2345-7] 03/24/2024 11:48 AM 130 mg/dL N Blood chemistry[[id number]] Glucose [Mass/volume] in Serum or Plasma [2345-7] 03/24/2024 10:37 AM 177 mg/dL N Blood chemistry[[id number]] Glucose [Mass/volume] in Serum or Plasma [2345-7] 03/23/2024 05:49 PM 197 mg/dL N Blood chemistry[[id number]] Glucose [Mass/volume] in Serum or Plasma [2345-7] 03/23/2024 11:16 AM 244 mg/dL N Blood chemistry[[id number]] Glucose [Mass/volume] in Serum or Plasma [2345-7] 03/23/2024 10:21 AM 264 mg/dL N Blood chemistry[[id number]] Glucose [Mass/volume] in Serum or Plasma [2345-7] 03/19/2024 10:27 AM 146 mg/dL N Blood chemistry[[id number]] Glucose [Mass/volume] in Serum or Plasma [2345-7] 03/18/2024 05:33 PM 276 mg/dL N Blood chemistry[[id number]] Glucose [Mass/volume] in Serum or Plasma [2345-7] 03/18/2024 11:39 AM 141 mg/dL N Blood chemistry[[id number]] Glucose [Mass/volume] in Serum or Plasma [2345-7] 03/18/2024 10:23 AM 162 mg/dL N Blood chemistry[[id number]] Glucose [Mass/volume] in Serum or Plasma [2345-7] 03/17/2024 05:55 PM 135 mg/dL N Blood chemistry[[id number]] Glucose [Mass/volume] in Serum or Plasma [2345-7] 03/17/2024 11:42 AM 135 mg/dL N Blood chemistry[[id number]] Glucose [Mass/volume] in Serum or Plasma [2345-7] 03/16/2024 05:48 PM 160 mg/dL N Blood chemistry[[id number]] Glucose [Mass/volume] in Serum or Plasma [2345-7] 03/16/2024 11:33 AM 190 mg/dL N Blood chemistry[[id number]] Glucose [Mass/volume] in Serum or Plasma [2345-7] 03/16/2024 10:48 AM 177 mg/dL N Blood chemistry[[id number]] Glucose [Mass/volume] in Serum or Plasma [2345-7] 03/15/2024 05:53 PM 198 mg/dL N Blood chemistry[[id number]] Glucose [Mass/volume] in Serum or Plasma [2345-7] 03/15/2024 11:35 AM 135 mg/dL N Blood chemistry[[id number]] Glucose [Mass/volume] in Serum or Plasma [2345-7] 03/15/2024 10:40 AM 120 mg/dL N Blood chemistry[[id number]] Glucose [Mass/volume] in Serum or Plasma [2345-7] 03/14/2024 05:51 PM 148 mg/dL N Blood chemistry[[id number]] Glucose [Mass/volume] in Serum or Plasma [2345-7] 03/14/2024 11:00 AM 213 mg/dL N Blood chemistry[[id number]] Glucose [Mass/volume] in Serum or Plasma [2345-7] 03/14/2024 10:10 AM 82 mg/dL N Blood chemistry[[id number]] Glucose [Mass/volume] in Serum or Plasma [2345-7] 03/13/2024 05:48 PM 180 mg/dL N Blood chemistry[[id number]] Glucose [Mass/volume] in Serum or Plasma [2345-7] 03/13/2024 10:32 AM 74 mg/dL N Blood chemistry[[id number]] Glucose [Mass/volume] in Serum or Plasma [2345-7] 03/13/2024 10:29 AM 153 mg/dL N Blood chemistry[[id number]] Glucose [Mass/volume] in Serum or Plasma [2345-7] 03/12/2024 05:26 PM 92 mg/dL N Blood chemistry[[id number]] Glucose [Mass/volume] in Serum or Plasma [2345-7] 03/12/2024 11:09 AM 163 mg/dL N Blood chemistry[[id number]] Glucose [Mass/volume] in Serum or Plasma [2345-7] 03/12/2024 10:05 AM 115 mg/dL N Blood chemistry[[id number]] Glucose [Mass/volume] in Serum or Plasma [2345-7] 03/11/2024 04:36 PM 195 mg/dL N Blood chemistry[[id number]] Glucose [Mass/volume] in Serum or Plasma [2345-7] 03/11/2024 11:21 AM 94 mg/dL N Blood chemistry[[id number]] Glucose [Mass/volume] in Serum or Plasma [2345-7] 03/11/2024 09:52 AM 154 mg/dL N Blood chemistry[[id number]] Glucose [Mass/volume] in Serum or Plasma [2345-7] 03/10/2024 05:35 PM 101 mg/dL N Blood chemistry[[id number]] Glucose [Mass/volume] in Serum or Plasma [2345-7] 03/10/2024 10:54 AM 115 mg/dL N Glucose [Mass/volume] in Serum or Plasma [2345-7] 03/10/2024 10:54 AM 114 mg/dL N Blood chemistry[[id number]] Glucose [Mass/volume] in Serum or Plasma [2345-7] 03/10/2024 09:31 AM 157 mg/dL N Blood chemistry[[id number]] Glucose [Mass/volume] in Serum or Plasma [2345-7] 03/09/2024 10:35 AM 130 mg/dL N Blood chemistry[[id number]] Glucose [Mass/volume] in Serum or Plasma [2345-7] 03/08/2024 05:11 PM 143 mg/dL N Blood chemistry[[id number]] Glucose [Mass/volume] in Serum or Plasma [2345-7] 03/08/2024 11:10 AM 115 mg/dL N Blood chemistry[[id number]] Glucose [Mass/volume] in Serum or Plasma [2345-7] 03/08/2024 10:26 AM 127 mg/dL N Blood chemistry[[id number]] Glucose [Mass/volume] in Serum or Plasma [2345-7] 03/07/2024 06:21 PM 116 mg/dL N Blood chemistry[[id number]] Glucose [Mass/volume] in Serum or Plasma [2345-7] 03/07/2024 12:24 PM 121 mg/dL N Blood chemistry[[id number]] Glucose [Mass/volume] in Serum or Plasma [2345-7] 03/07/2024 10:15 AM 137 mg/dL N Blood chemistry[[id number]] Glucose [Mass/volume] in Serum or Plasma [2345-7] 03/06/2024 04:51 PM 156 mg/dL N Blood chemistry[[id number]] Glucose [Mass/volume] in Serum or Plasma [2345-7] 03/06/2024 12:06 PM 91 mg/dL N Blood chemistry[[id number]] Glucose [Mass/volume] in Serum or Plasma [2345-7] 03/05/2024 06:12 PM 224 mg/dL N Blood chemistry[[id number]] Glucose [Mass/volume] in Serum or Plasma [2345-7] 03/05/2024 11:24 AM 134 mg/dL N Blood chemistry[[id number]] Glucose [Mass/volume] in Serum or Plasma [2345-7] 03/05/2024 10:04 AM 115 mg/dL N Blood chemistry[[id number]] Glucose [Mass/volume] in Serum or Plasma [2345-7] 03/04/2024 12:47 PM 128 mg/dL N Blood chemistry[[id number]] Glucose [Mass/volume] in Serum or Plasma [2345-7] 03/04/2024 10:57 AM 85 mg/dL N Blood chemistry[[id number]] Glucose [Mass/volume] in Serum or Plasma [2345-7] 03/04/2024 10:37 AM 189 mg/dL N Blood chemistry[[id number]] Glucose [Mass/volume] in Serum or Plasma [2345-7] 03/03/2024 01:49 PM 104 mg/dL N Blood chemistry[[id number]] Glucose [Mass/volume] in Serum or Plasma [2345-7] 03/03/2024 11:21 AM 162 mg/dL N Blood chemistry[[id number]] Glucose [Mass/volume] in Serum or Plasma [2345-7] 03/03/2024 07:25 AM 142 mg/dL N Blood chemistry[[id number]] Glucose [Mass/volume] in Serum or Plasma [2345-7] 03/02/2024 05:17 PM 155 mg/dL N Blood chemistry[[id number]] Glucose [Mass/volume] in Serum or Plasma [2345-7] 03/02/2024 11:09 AM 98 mg/dL N Blood chemistry[[id number]] Glucose [Mass/volume] in Serum or Plasma [2345-7] 03/02/2024 10:53 AM 125 mg/dL N Blood chemistry[[id number]] Glucose [Mass/volume] in Serum or Plasma [2345-7] 03/01/2024 04:53 PM 120 mg/dL N Blood chemistry[[id number]] Glucose [Mass/volume] in Serum or Plasma [2345-7] 03/01/2024 10:21 AM 81 mg/dL N Blood chemistry[[id number]] Glucose [Mass/volume] in Serum or Plasma [2345-7] 03/01/2024 09:13 AM 108 mg/dL N Blood chemistry[[id number]] Glucose [Mass/volume] in Serum or Plasma [2345-7] 02/29/2024 05:06 PM 138 mg/dL N Blood chemistry[[id number]] Glucose [Mass/volume] in Serum or Plasma [2345-7] 02/29/2024 09:14 AM 91 mg/dL N Blood chemistry[[id number]] Glucose [Mass/volume] in Serum or Plasma [2345-7] 02/29/2024 09:06 AM 131 mg/dL N Blood chemistry[[id number]] Glucose [Mass/volume] in Serum or Plasma [2345-7] 02/28/2024 05:55 PM 98 mg/dL N Blood chemistry[[id number]] Glucose [Mass/volume] in Serum or Plasma [2345-7] 02/28/2024 09:24 AM 177 mg/dL N Blood chemistry[[id number]] Glucose [Mass/volume] in Serum or Plasma [2345-7] 02/28/2024 09:01 AM 93 mg/dL N Blood chemistry[[id number]] Glucose [Mass/volume] in Serum or Plasma [2345-7] 02/27/2024 09:04 AM 73 mg/dL N Blood chemistry[[id number]] Glucose [Mass/volume] in Serum or Plasma [2345-7] 02/27/2024 08:56 AM 138 mg/dL N Blood chemistry[[id number]] Glucose [Mass/volume] in Serum or Plasma [2345-7] 02/26/2024 04:41 PM 149 mg/dL N Blood chemistry[[id number]] Glucose [Mass/volume] in Serum or Plasma [2345-7] 02/26/2024 09:32 AM 83 mg/dL N Blood chemistry[[id number]] Glucose [Mass/volume] in Serum or Plasma [2345-7] 02/25/2024 04:42 PM 170 mg/dL N Blood chemistry[[id number]] Glucose [Mass/volume] in Serum or Plasma [2345-7] 02/25/2024 10:15 AM 100 mg/dL N Blood chemistry[[id number]] Glucose [Mass/volume] in Serum or Plasma [2345-7] 02/25/2024 09:05 AM 179 mg/dL N Blood chemistry[[id number]] Glucose [Mass/volume] in Serum or Plasma [2345-7] 02/24/2024 04:20 PM 129 mg/dL N Blood chemistry[[id number]] Glucose [Mass/volume] in Serum or Plasma [2345-7] 02/24/2024 09:24 AM 122 mg/dL N Blood chemistry[[id number]] Glucose [Mass/volume] in Serum or Plasma [2345-7] 02/23/2024 11:46 AM 131 mg/dL N Blood chemistry[[id number]] Glucose [Mass/volume] in Serum or Plasma [2345-7] 02/23/2024 10:15 AM 150 mg/dL N Blood chemistry[[id number]] Glucose [Mass/volume] in Serum or Plasma [2345-7] 02/23/2024 06:49 AM 188 mg/dL N Blood chemistry[[id number]] Glucose [Mass/volume] in Serum or Plasma [2345-7] 02/22/2024 10:09 AM 127 mg/dL N Glucose [Mass/volume] in Serum or Plasma [2345-7] 02/22/2024 10:09 AM 113 mg/dL N Blood chemistry[[id number]] Glucose [Mass/volume] in Serum or Plasma [2345-7] 02/22/2024 10:00 AM 201 mg/dL N Blood chemistry[[id number]] Glucose [Mass/volume] in Serum or Plasma [2345-7] 02/21/2024 04:32 PM 173 mg/dL N Blood chemistry[[id number]] Glucose [Mass/volume] in Serum or Plasma [2345-7] 02/21/2024 09:34 AM 105 mg/dL N Blood chemistry[[id number]] Glucose [Mass/volume] in Serum or Plasma [2345-7] 02/21/2024 09:29 AM 145 mg/dL N Blood chemistry[[id number]] Glucose [Mass/volume] in Serum or Plasma [2345-7] 02/20/2024 05:33 PM 182 mg/dL N Blood chemistry[[id number]] Glucose [Mass/volume] in Serum or Plasma [2345-7] 02/20/2024 10:03 AM 103 mg/dL N Blood chemistry[[id number]] Glucose [Mass/volume] in Serum or Plasma [2345-7] 02/20/2024 09:11 AM 106 mg/dL N Blood chemistry[[id number]] Glucose [Mass/volume] in Serum or Plasma [2345-7] 02/19/2024 05:45 PM 184 mg/dL N Blood chemistry[[id number]] Glucose [Mass/volume] in Serum or Plasma [2345-7] 02/19/2024 11:28 AM 162 mg/dL N Blood chemistry[[id number]] Glucose [Mass/volume] in Serum or Plasma [2345-7] 02/19/2024 09:10 AM 85 mg/dL N Blood chemistry[[id number]] Glucose [Mass/volume] in Serum or Plasma [2345-7] 02/18/2024 05:26 PM 167 mg/dL N COVID-19 Test Viral Antigen null flavor [null] 02/18/2024 05:00 PM See note NEG COVID-19 Test Viral Antigen Blood chemistry[[id number]] Glucose [Mass/volume] in Serum or Plasma [2345-7] 02/18/2024 10:00 AM 150 mg/dL N Glucose [Mass/volume] in Serum or Plasma [2345-7] 02/18/2024 10:00 AM 109 mg/dL N Blood chemistry[[id number]] Glucose [Mass/volume] in Serum or Plasma [2345-7] 02/17/2024 05:04 PM 150 mg/dL N Blood chemistry[[id number]] Glucose [Mass/volume] in Serum or Plasma [2345-7] 02/17/2024 10:53 AM 213 mg/dL N Blood chemistry[[id number]] Glucose [Mass/volume] in Serum or Plasma [2345-7] 02/17/2024 09:56 AM 169 mg/dL N Blood chemistry[[id number]] Glucose [Mass/volume] in Serum or Plasma [2345-7] 02/16/2024 04:48 PM 173 mg/dL N Blood chemistry[[id number]] Glucose [Mass/volume] in Serum or Plasma [2345-7] 02/16/2024 11:16 AM 90 mg/dL N Blood chemistry[[id number]] Glucose [Mass/volume] in Serum or Plasma [2345-7] 02/16/2024 11:15 AM 136 mg/dL N Blood chemistry[[id number]] Glucose [Mass/volume] in Serum or Plasma [2345-7] 02/15/2024 05:02 PM 113 mg/dL N Blood chemistry[[id number]] Glucose [Mass/volume] in Serum or Plasma [2345-7] 02/15/2024 09:20 AM 217 mg/dL N Blood chemistry[[id number]] Glucose [Mass/volume] in Serum or Plasma [2345-7] 02/15/2024 09:14 AM 127 mg/dL N Blood chemistry[[id number]] Glucose [Mass/volume] in Serum or Plasma [2345-7] 02/14/2024 04:58 PM 153 mg/dL N Blood chemistry[[id number]] Glucose [Mass/volume] in Serum or Plasma [2345-7] 02/14/2024 09:30 AM 127 mg/dL N Blood chemistry[[id number]] Glucose [Mass/volume] in Serum or Plasma [2345-7] 02/14/2024 09:20 AM 140 mg/dL N Blood chemistry[[id number]] Glucose [Mass/volume] in Serum or Plasma [2345-7] 02/13/2024 05:14 PM 126 mg/dL N Blood chemistry[[id number]] Glucose [Mass/volume] in Serum or Plasma [2345-7] 02/13/2024 09:13 AM 138 mg/dL N Blood chemistry[[id number]] Glucose [Mass/volume] in Serum or Plasma [2345-7] 02/13/2024 09:00 AM 91 mg/dL N Blood chemistry[[id number]] Glucose [Mass/volume] in Serum or Plasma [2345-7] 02/12/2024 05:17 PM 203 mg/dL N Blood chemistry[[id number]] Glucose [Mass/volume] in Serum or Plasma [2345-7] 02/12/2024 09:18 AM 122 mg/dL N COVID-19 Test Viral Antigen null flavor [null] 02/11/2024 05:00 PM See note NEG COVID-19 Test Viral Antigen Blood chemistry[[id number]] Glucose [Mass/volume] in Serum or Plasma [2345-7] 02/11/2024 04:49 PM 162 mg/dL N Blood chemistry[[id number]] Glucose [Mass/volume] in Serum or Plasma [2345-7] 02/11/2024 08:50 AM 166 mg/dL N Blood chemistry[[id number]] Glucose [Mass/volume] in Serum or Plasma [2345-7] 02/10/2024 04:32 PM 191 mg/dL N Blood chemistry[[id number]] Glucose [Mass/volume] in Serum or Plasma [2345-7] 02/10/2024 10:03 AM 133 mg/dL N Blood chemistry[[id number]] Glucose [Mass/volume] in Serum or Plasma [2345-7] 02/10/2024 09:52 AM 175 mg/dL N Blood chemistry[[id number]] Glucose [Mass/volume] in Serum or Plasma [2345-7] 02/09/2024 04:25 PM 179 mg/dL N Blood chemistry[[id number]] Glucose [Mass/volume] in Serum or Plasma [2345-7] 02/09/2024 10:07 AM 148 mg/dL N Blood chemistry[[id number]] Glucose [Mass/volume] in Serum or Plasma [2345-7] 02/09/2024 09:39 AM 144 mg/dL N Blood chemistry[[id number]] Glucose [Mass/volume] in Serum or Plasma [2345-7] 02/08/2024 05:45 PM 220 mg/dL N Blood chemistry[[id number]] Glucose [Mass/volume] in Serum or Plasma [2345-7] 02/08/2024 10:01 AM 246 mg/dL N Blood chemistry[[id number]] Glucose [Mass/volume] in Serum or Plasma [2345-7] 02/08/2024 08:59 AM 187 mg/dL N Blood chemistry[[id number]] Glucose [Mass/volume] in Serum or Plasma [2345-7] 02/07/2024 10:50 AM 176 mg/dL N Blood chemistry[[id number]] Glucose [Mass/volume] in Serum or Plasma [2345-7] 02/07/2024 09:10 AM 189 mg/dL N Blood chemistry[[id number]] Glucose [Mass/volume] in Serum or Plasma [2345-7] 02/06/2024 05:08 PM 167 mg/dL N Blood chemistry[[id number]] Glucose [Mass/volume] in Serum or Plasma [2345-7] 02/06/2024 11:23 AM 185 mg/dL N Blood chemistry[[id number]] Glucose [Mass/volume] in Serum or Plasma [2345-7] 02/06/2024 10:10 AM 139 mg/dL N Blood chemistry[[id number]] Glucose [Mass/volume] in Serum or Plasma [2345-7] 02/05/2024 05:51 PM 209 mg/dL N Blood chemistry[[id number]] Glucose [Mass/volume] in Serum or Plasma [2345-7] 02/05/2024 09:33 AM 136 mg/dL N Blood chemistry[[id number]] Glucose [Mass/volume] in Serum or Plasma [2345-7] 02/05/2024 09:18 AM 170 mg/dL N Blood chemistry[[id number]] Glucose [Mass/volume] in Serum or Plasma [2345-7] 02/04/2024 05:03 PM 133 mg/dL N COVID-19 Test Viral Antigen null flavor [null] 02/04/2024 05:00 PM See note NEG COVID-19 Test Viral Antigen Blood chemistry[[id number]] Glucose [Mass/volume] in Serum or Plasma [2345-7] 02/04/2024 10:43 AM 127 mg/dL N Blood chemistry[[id number]] Glucose [Mass/volume] in Serum or Plasma [2345-7] 02/04/2024 09:36 AM 178 mg/dL N Blood chemistry[[id number]] Glucose [Mass/volume] in Serum or Plasma [2345-7] 02/03/2024 04:49 PM 239 mg/dL N Blood chemistry[[id number]] Glucose [Mass/volume] in Serum or Plasma [2345-7] 02/03/2024 10:01 AM 111 mg/dL N Blood chemistry[[id number]] Glucose [Mass/volume] in Serum or Plasma [2345-7] 02/03/2024 09:17 AM 160 mg/dL N Blood chemistry[[id number]] Glucose [Mass/volume] in Serum or Plasma [2345-7] 02/02/2024 05:35 PM 308 mg/dL N Blood chemistry[[id number]] Glucose [Mass/volume] in Serum or Plasma [2345-7] 02/02/2024 11:24 AM 133 mg/dL N Blood chemistry[[id number]] Glucose [Mass/volume] in Serum or Plasma [2345-7] 02/02/2024 11:00 AM 150 mg/dL N Blood chemistry[[id number]] Glucose [Mass/volume] in Serum or Plasma [2345-7] 02/01/2024 05:23 PM 142 mg/dL N Blood chemistry[[id number]] Glucose [Mass/volume] in Serum or Plasma [2345-7] 02/01/2024 11:18 AM 197 mg/dL N Blood chemistry[[id number]] Glucose [Mass/volume] in Serum or Plasma [2345-7] 02/01/2024 10:35 AM 151 mg/dL N Blood chemistry[[id number]] Glucose [Mass/volume] in Serum or Plasma [2345-7] 01/31/2024 03:45 PM 255 mg/dL N Blood chemistry[[id number]] Glucose [Mass/volume] in Serum or Plasma [2345-7] 01/31/2024 10:09 AM 181 mg/dL N Blood chemistry[[id number]] Glucose [Mass/volume] in Serum or Plasma [2345-7] 01/31/2024 09:03 AM 106 mg/dL N Blood chemistry[[id number]] Glucose [Mass/volume] in Serum or Plasma [2345-7] 01/30/2024 04:42 PM 193 mg/dL N Blood chemistry[[id number]] Glucose [Mass/volume] in Serum or Plasma [2345-7] 01/30/2024 09:07 AM 217 mg/dL N Blood chemistry[[id number]] Glucose [Mass/volume] in Serum or Plasma [2345-7] 01/30/2024 08:58 AM 177 mg/dL N Blood chemistry[[id number]] Glucose [Mass/volume] in Serum or Plasma [2345-7] 01/29/2024 05:48 PM 247 mg/dL N Blood chemistry[[id number]] Glucose [Mass/volume] in Serum or Plasma [2345-7] 01/29/2024 10:22 AM 141 mg/dL N Blood chemistry[[id number]] Glucose [Mass/volume] in Serum or Plasma [2345-7] 01/29/2024 09:45 AM 122 mg/dL N Blood chemistry[[id number]] Glucose [Mass/volume] in Serum or Plasma [2345-7] 01/28/2024 05:28 PM 171 mg/dL N COVID-19 Test Viral Antigen null flavor [null] 01/28/2024 05:00 PM See note NEG COVID-19 Test Viral Antigen Blood chemistry[[id number]] Glucose [Mass/volume] in Serum or Plasma [2345-7] 01/28/2024 09:49 AM 183 mg/dL N Blood chemistry[[id number]] Glucose [Mass/volume] in Serum or Plasma [2345-7] 01/28/2024 09:25 AM 198 mg/dL N Blood chemistry[[id number]] Glucose [Mass/volume] in Serum or Plasma [2345-7] 01/27/2024 04:35 PM 224 mg/dL N Blood chemistry[[id number]] Glucose [Mass/volume] in Serum or Plasma [2345-7] 01/27/2024 09:34 AM 164 mg/dL N Blood chemistry[[id number]] Glucose [Mass/volume] in Serum or Plasma [2345-7] 01/27/2024 08:14 AM 139 mg/dL N Blood chemistry[[id number]] Glucose [Mass/volume] in Serum or Plasma [2345-7] 01/26/2024 04:20 PM 241 mg/dL N Blood chemistry[[id number]] Glucose [Mass/volume] in Serum or Plasma [2345-7] 01/26/2024 10:08 AM 183 mg/dL N Blood chemistry[[id number]] Glucose [Mass/volume] in Serum or Plasma [2345-7] 01/26/2024 09:37 AM 151 mg/dL N Blood chemistry[[id number]] Glucose [Mass/volume] in Serum or Plasma [2345-7] 01/25/2024 05:11 PM 209 mg/dL N Blood chemistry[[id number]] Glucose [Mass/volume] in Serum or Plasma [2345-7] 01/25/2024 11:11 AM 191 mg/dL N Blood chemistry[[id number]] Glucose [Mass/volume] in Serum or Plasma [2345-7] 01/25/2024 09:26 AM 148 mg/dL N Blood chemistry[[id number]] Glucose [Mass/volume] in Serum or Plasma [2345-7] 01/24/2024 05:56 PM 173 mg/dL N Blood chemistry[[id number]] Glucose [Mass/volume] in Serum or Plasma [2345-7] 01/24/2024 09:57 AM 200 mg/dL N Blood chemistry[[id number]] Glucose [Mass/volume] in Serum or Plasma [2345-7] 01/24/2024 09:19 AM 235 mg/dL N Blood chemistry[[id number]] Glucose [Mass/volume] in Serum or Plasma [2345-7] 01/23/2024 04:03 PM 260 mg/dL N Blood chemistry[[id number]] Glucose [Mass/volume] in Serum or Plasma [2345-7] 01/23/2024 09:39 AM 161 mg/dL N Blood chemistry[[id number]] Glucose [Mass/volume] in Serum or Plasma [2345-7] 01/22/2024 04:29 PM 320 mg/dL N Blood chemistry[[id number]] Glucose [Mass/volume] in Serum or Plasma [2345-7] 01/22/2024 09:57 AM 165 mg/dL N Blood chemistry[[id number]] Glucose [Mass/volume] in Serum or Plasma [2345-7] 01/22/2024 09:01 AM 157 mg/dL N COVID-19 Test Viral Antigen null flavor [null] 01/21/2024 05:00 PM See note NEG COVID-19 Test Viral Antigen Blood chemistry[[id number]] Glucose [Mass/volume] in Serum or Plasma [2345-7] 01/21/2024 10:33 AM 180 mg/dL N Blood chemistry[[id number]] Glucose [Mass/volume] in Serum or Plasma [2345-7] 01/21/2024 09:32 AM 153 mg/dL N Blood chemistry[[id number]] Glucose [Mass/volume] in Serum or Plasma [2345-7] 01/21/2024 08:25 AM 165 mg/dL N Blood chemistry[[id number]] Glucose [Mass/volume] in Serum or Plasma [2345-7] 01/20/2024 05:06 PM 245 mg/dL N Blood chemistry[[id number]] Glucose [Mass/volume] in Serum or Plasma [2345-7] 01/20/2024 11:08 AM 122 mg/dL N Blood chemistry[[id number]] Glucose [Mass/volume] in Serum or Plasma [2345-7] 01/19/2024 05:44 PM 205 mg/dL N Blood chemistry[[id number]] Glucose [Mass/volume] in Serum or Plasma [2345-7] 01/19/2024 09:26 AM 92 mg/dL N Blood chemistry[[id number]] Glucose [Mass/volume] in Serum or Plasma [2345-7] 01/18/2024 04:49 PM 122 mg/dL N Blood chemistry[[id number]] Glucose [Mass/volume] in Serum or Plasma [2345-7] 01/18/2024 10:23 AM 221 mg/dL N Blood chemistry[[id number]] Glucose [Mass/volume] in Serum or Plasma [2345-7] 01/18/2024 09:01 AM 183 mg/dL N Blood chemistry[[id number]] Glucose [Mass/volume] in Serum or Plasma [2345-7] 01/17/2024 04:58 PM 239 mg/dL N Blood chemistry[[id number]] Glucose [Mass/volume] in Serum or Plasma [2345-7] 01/17/2024 10:08 AM 103 mg/dL N Blood chemistry[[id number]] Glucose [Mass/volume] in Serum or Plasma [2345-7] 01/17/2024 09:00 AM 151 mg/dL N Blood chemistry[[id number]] Glucose [Mass/volume] in Serum or Plasma [2345-7] 01/16/2024 05:19 PM 199 mg/dL N Blood chemistry[[id number]] Glucose [Mass/volume] in Serum or Plasma [2345-7] 01/16/2024 09:22 AM 150 mg/dL N Blood chemistry[[id number]] Glucose [Mass/volume] in Serum or Plasma [2345-7] 01/16/2024 09:12 AM 127 mg/dL N Blood chemistry[[id number]] Glucose [Mass/volume] in Serum or Plasma [2345-7] 01/15/2024 04:32 PM 177 mg/dL N Blood chemistry[[id number]] Glucose [Mass/volume] in Serum or Plasma [2345-7] 01/15/2024 10:03 AM 147 mg/dL N COVID-19 Test Viral Antigen null flavor [null] 01/14/2024 05:00 PM See note NEG COVID-19 Test Viral Antigen Blood chemistry[[id number]] Glucose [Mass/volume] in Serum or Plasma [2345-7] 01/14/2024 04:59 PM 185 mg/dL N Blood chemistry[[id number]] Glucose [Mass/volume] in Serum or Plasma [2345-7] 01/14/2024 09:50 AM 236 mg/dL N Blood chemistry[[id number]] Glucose [Mass/volume] in Serum or Plasma [2345-7] 01/14/2024 09:35 AM 197 mg/dL N Blood chemistry[[id number]] Glucose [Mass/volume] in Serum or Plasma [2345-7] 01/13/2024 04:09 PM 222 mg/dL N Blood chemistry[[id number]] Glucose [Mass/volume] in Serum or Plasma [2345-7] 01/13/2024 10:01 AM 202 mg/dL N Blood chemistry[[id number]] Glucose [Mass/volume] in Serum or Plasma [2345-7] 01/13/2024 09:35 AM 170 mg/dL N Blood chemistry[[id number]] Glucose [Mass/volume] in Serum or Plasma [2345-7] 01/12/2024 11:00 AM 171 mg/dL N Blood chemistry[[id number]] Glucose [Mass/volume] in Serum or Plasma [2345-7] 01/12/2024 09:56 AM 226 mg/dL N Blood chemistry[[id number]] Glucose [Mass/volume] in Serum or Plasma [2345-7] 01/12/2024 06:56 AM 239 mg/dL N Blood chemistry[[id number]] Glucose [Mass/volume] in Serum or Plasma [2345-7] 01/11/2024 05:23 PM 157 mg/dL N Blood chemistry[[id number]] Glucose [Mass/volume] in Serum or Plasma [2345-7] 01/11/2024 09:59 AM 172 mg/dL N Blood chemistry[[id number]] Glucose [Mass/volume] in Serum or Plasma [2345-7] 01/11/2024 09:40 AM 178 mg/dL N Blood chemistry[[id number]] Glucose [Mass/volume] in Serum or Plasma [2345-7] 01/10/2024 04:43 PM 224 mg/dL N Blood chemistry[[id number]] Glucose [Mass/volume] in Serum or Plasma [2345-7] 01/10/2024 10:36 AM 201 mg/dL N Blood chemistry[[id number]] Glucose [Mass/volume] in Serum or Plasma [2345-7] 01/10/2024 09:11 AM 179 mg/dL N Allergies, adverse reactions, alerts No known allergies and adverse reactions Immunizations Vaccine Route Date Status RSV Vaccine Unassigned Route of Administration 2024 Completed Medications Medication Instructions Route Dosage Frequency Start Date Stop Date Indications Status alprazolam 0.5 mg tablet (alprazolam) 1, oral, Three Times A Day - PRN, 1 tab TID PRN anxiety oral 1.0 8.0 h 11/29 Active Benadryl (diphenhydramin e hcl) 25 mg capsule (Benadryl (diphenhydramin e hcl)) 1, oral, Three Times A Day - PRN, Clinical Indication: Comfort/Itchi ng oral 1.0 8.0 h 2024 Active MediHoney (honey) (honey) 80 % gel (MediHoney (honey) (honey)) as directed, topical, Every Shift, Buttock: Apply medi-honey q shift and cover with loose abd pab with no tape. topical 1.0 8.0 h 07/16 Active metoprolol tartrate 50 mg tablet (metoprolol tartrate) 1, oral, Twice A Day oral 1.0 12.0 h 2024 Active alprazolam 0.5 mg tablet (alprazolam) 1, oral, Three Times A Day - PRN, 1 tab TID PRN anxiety oral 1.0 8.0 h 07/02 Active Xanax (alprazolam) 1 mg tablet (Xanax (alprazolam)) 1, oral, At Bedtime - PRN, Clinical Indication: Anxiety/restl essness oral 1.0 07/03 Active alprazolam 0.5 mg tablet (alprazolam) 1, oral, Three Times A Day - PRN, 1 tab TID PRN anxiety oral 1.0 8.0 h 06/19 Active oxycodone 5 mg tablet (oxycodone) 1 tab, oral, Every 6 Hours - PRN, clinical indication: pain oral 1.0 6.0 h 2024 Active alprazolam 0.5 mg tablet (alprazolam) 1, oral, Three Times A Day - PRN, 1 tab TID PRN anxietyre-sarath luate in 6 months oral 1.0 8.0 h 12/17 Active tizanidine 4 mg tablet (tizanidine) 1 tab, oral, Every 8 Hours - PRN, Administer 1 tab po Q 8hrs PRN for muscle spasms oral 1.0 8.0 h 2024 Active loperamide 2 mg tablet (loperamide) 1-2 tabs, oral, Every 6 Hours - PRN, for loose stool oral 1.0 6.0 h 2024 Active nystatin 100,000 unit/gram powder (nystatin) 1 dominguez, topical, Every Shift, Wash and pat dry groin, and apply nystatin powder every shift topical 1.0 8.0 h 08/13 Active carbidopa-levod opa 25-100 mg tablet (carbidopa-levo dopa) 1, oral, Three Times A Day oral 1.0 8.0 h 2024 Parkinson's disease without dyskinesia, without mention of fluctuations Active acetaminophen 325 mg tablet (acetaminophen) 2 tab (650mg), oral, Every 6 Hours oral 1.0 6.0 h 2024 Active alprazolam 0.5 mg tablet (alprazolam) 1 tab, oral, Every 8 Hours - PRN, anxiety f41.9, for 6 months follow up with pcp oral 1.0 8.0 h 04/17 Active azelastine 137 mcg (0.1 %) spray,non-aeros ol (azelastine) 2 sprays, nasal, Twice A Day, each nare nasal 1.0 12.0 h 2024 Active carbidopa-levod opa 25-100 mg tablet (carbidopa-levo dopa) 1 tab, oral, Three Times A Day oral 1.0 8.0 h 2024 Active diphenhydramine HCl 25 mg tablet (diphenhydramin e HCl) 1 tab, oral, Three Times A Day - PRN, for itching oral 1.0 8.0 h 2024 Active Eliquis (apixaban) 5 mg tablet (Eliquis (apixaban)) 1 tab, oral, Twice A Day oral 1.0 12.0 h 2024 Active fluoxetine 40 mg capsule (fluoxetine) 1, oral, Once A Day oral 1.0 1.0 d 2024 Active fluticasone propionate 50 mcg/actuation spray,suspensio n (fluticasone propionate) 1 spray, nasal, Twice A Day, each nare nasal 1.0 12.0 h 2024 Active furosemide 40 mg tablet (furosemide) 1 tab, oral, Twice A Day, 7am and 2pm oral 1.0 12.0 h 2024 Active gabapentin 100 mg capsule (gabapentin) 2 caps (200mg), oral, At Bedtime oral 1.0 2024 Active insulin aspart U-100 100 unit/mL (3 mL) insulin pen (insulin aspart U-100) Per Sliding Scale, subcutaneous, Before Meals, If Blood Sugar is less than 60, call MD.If Blood Sugar is 201 to 250, give 2 Units.If Blood Sugar is 251 to 300, give 4 Units.If Blood Sugar is 301 to 350, give 6 Units.If Blood Sugar is 351 to 400, give 8 Units.If Blood Sugar is greater than 400, call MD. subcutane ous 1.0 2024 Active Lantus Solostar U-100 Insulin (insulin glargine) 100 unit/mL (3 mL) insulin pen (Lantus Solostar U-100 Insulin (insulin glargine)) 8 units, subcutaneous, At Bedtime subcutane ous 1.0 2024 Active levothyroxine 150 mcg tablet (levothyroxine) 1 tab, oral, Once A Day oral 1.0 1.0 d 2024 Active loperamide 2 mg tablet (loperamide) 1 tab, oral, Every 6 Hours - PRN, for loose stool oral 1.0 6.0 h 2024 Active Lumigan (bimatoprost) 0.01 % drops (Lumigan (bimatoprost)) 1 drop, ophthalmic (eye), At Bedtime, apply to affected eye. 1.0 2024 Active metolazone 5 mg tablet (metolazone) 1 tab, oral, Once A Day oral 1.0 1.0 d 2024 Active omeprazole 20 mg capsule,delayed release(DR/EC) (omeprazole) 1 cap, oral, Twice A Day oral 1.0 12.0 h 2024 Active ondansetron HCl 4 mg tablet (ondansetron HCl) 1 tab, oral, Every 6 Hours - PRN, for n/v oral 1.0 6.0 h 2024 Active oxycodone 5 mg tablet (oxycodone) 1 tab, oral, Every 6 Hours - PRN, pain exempt R52 oral 1.0 6.0 h 2024 Active simvastatin 40 mg tablet (simvastatin) 1 tab, oral, At Bedtime oral 1.0 2024 Active tizanidine 4 mg tablet (tizanidine) 1 tab, oral, Every 8 Hours - PRN, for muscle spasms oral 1.0 8.0 h 2024 Active Triad Wound Dressing (wound dressings) - paste (Triad Wound Dressing (wound dressings)) 1, topical, Every Shift, Cleanse right buttock with NS and apply triad BID, cover with ABD pad topical 1.0 8.0 h 2024 Active trihexyphenidyl 2 mg tablet (trihexyphenidy l) 1 tab, oral, With Meals oral 1.0 2024 Active Tylenol (acetaminophen) 325 mg tablet (Tylenol (acetaminophen) ) 2 tabs/650mg, oral, Every 6 Hours - PRN, as needed for PRN pain/increase d tempMay give rectally if necessary oral 1.0 6.0 h 2024 Active white petrolatum - gel (white petrolatum) 1 dominguez, topical, Once A Day - PRN, for protection topical 1.0 1.0 d 2024 Active alprazolam 0.5 mg tablet (alprazolam) 1 tab, oral, Every 8 Hours - PRN, anxiety f41.9, for 6 months follow up with pcp oral 1.0 8.0 h 12/16 Active Arexvy (PF) (rsvpref3 antigen-as01e (pf)) 120 mcg/0.5 mL suspension for reconstitution (Arexvy (PF) (rsvpref3 antigen-as01e (pf))) 0.5ml, intramuscular , Once - One Time intramusc ular 1.0 12/16 Active fluoxetine 20 mg capsule (fluoxetine) 1, oral, Once A Day oral 1.0 1.0 d 01/02 Active insulin glargine-yfgn 100 unit/mL (3 mL) insulin pen (insulin glargine-yfgn) 10 units, subcutaneous, At Bedtime subcutane ous 1.0 12/11 Active insulin glargine-yfgn 100 unit/mL (3 mL) insulin pen (insulin glargine-yfgn) 8 units, subcutaneous, At Bedtime subcutane ous 1.0 12/24 Active nystatin 100,000 unit/gram powder (nystatin) 1 dominguez, topical, Twice A Day topical 1.0 12.0 h 12/11 Active oxycodone 5 mg tablet (oxycodone) 1 tab, oral, Every 6 Hours - PRN, pain exempt R52 oral 1.0 6.0 h 12/16 Active Vital Signs Date Vital Result Comment 05/28/2024 06:24 PM Body Weight (79760-1) 220.4 [lb_av ] Body Mass Index (18090-8) 34.52 kg/m2 05/28/2024 04:50 PM Temperature (8310-5) 98.3 [degF] Oxygen Saturation (19171-4) 98 % Respiratory Rate (9279-1) 18 /min Heart Rate (8867-4) 51 /min Blood Pressure Systolic (8480-6) 94 mm[Hg] Blood Pressure Diastolic (8462-4) 56 mm[Hg] 05/31/2024 12:20 PM Body Weight (58894-9) 224.8 [lb_av ] Body Mass Index (38511-9) 35.2 kg/m2 06/02/2024 05:30 PM Body Weight (86334-2) 222.4 [lb_av ] Body Mass Index (91476-9) 34.83 kg/m2 06/04/2024 05:20 PM Body Weight (14453-3) 240 [lb_av] Body Mass Index (55890-6) 37.59 kg/m2 06/04/2024 05:19 PM Temperature (8310-5) 98 [degF] Oxygen Saturation (85053-4) 97 % Respiratory Rate (9279-1) 17 /min Heart Rate (8867-4) 59 /min Blood Pressure Systolic (8480-6) 96 mm[Hg] Blood Pressure Diastolic (8462-4) 58 mm[Hg] 06/04/2024 12:41 PM Body Weight (88499-0) 240 [lb_av] Body Mass Index (79686-7) 37.59 kg/m2 06/05/2024 03:27 PM Body Weight (54628-9) 234.6 [lb_av ] Body Mass Index (06346-6) 36.74 kg/m2 06/11/2024 06:01 PM Body Weight (98098-1) 240.1 [lb_av ] Body Mass Index (99956-6) 37.6 kg/m2 06/11/2024 04:59 PM Temperature (8310-5) 97 [degF] Oxygen Saturation (58169-7) 96 % Respiratory Rate (9279-1) 18 /min Heart Rate (8867-4) 77 /min Blood Pressure Systolic (8480-6) 148 mm[Hg] Blood Pressure Diastolic (8462-4) 72 mm[Hg] 06/11/2024 01:34 PM Body Weight (57113-7) 239.8 [lb_av ] Body Mass Index (93371-0) 37.55 kg/m2 06/12/2024 07:40 PM Temperature (8310-5) 98.7 [degF] Oxygen Saturation (62602-3) 93 % Respiratory Rate (9279-1) 19 /min Heart Rate (8867-4) 72 /min Blood Pressure Systolic (8480-6) 142 mm[Hg] Blood Pressure Diastolic (8462-4) 68 mm[Hg] 06/12/2024 09:45 AM Temperature (8310-5) 98.9 [degF] Oxygen Saturation (95777-3) 95 % Respiratory Rate (9279-1) 16 /min Heart Rate (8867-4) 78 /min Blood Pressure Systolic (8480-6) 118 mm[Hg] Blood Pressure Diastolic (8462-4) 50 mm[Hg] 06/13/2024 02:33 PM Temperature (8310-5) 98.4 [degF] Oxygen Saturation (20615-7) 92 % Respiratory Rate (9279-1) 18 /min Heart Rate (8867-4) 68 /min Blood Pressure Systolic (8480-6) 107 mm[Hg] Blood Pressure Diastolic (8462-4) 58 mm[Hg] 06/14/2024 10:12 AM Oxygen Saturation (27526-3) 98 % 06/14/2024 10:11 AM Temperature (8310-5) 98.2 [degF] Respiratory Rate (9279-1) 19 /min Heart Rate (8867-4) 72 /min Blood Pressure Systolic (8480-6) 118 mm[Hg] Blood Pressure Diastolic (8462-4) 64 mm[Hg] 06/15/2024 05:40 PM Temperature (8310-5) 98.6 [degF] Oxygen Saturation (98440-8) 97 % Respiratory Rate (9279-1) 18 /min Heart Rate (8867-4) 68 /min Blood Pressure Systolic (8480-6) 131 mm[Hg] Blood Pressure Diastolic (8462-4) 70 mm[Hg] 06/16/2024 12:39 PM Temperature (8310-5) 97.8 [degF] Oxygen Saturation (10618-7) 98 % Respiratory Rate (9279-1) 19 /min Heart Rate (8867-4) 67 /min Blood Pressure Systolic (8480-6) 98 mm[Hg] Blood Pressure Diastolic (8462-4) 58 mm[Hg] 06/18/2024 09:27 AM Temperature (8310-5) 98.6 [degF] Oxygen Saturation (06724-6) 97 % Respiratory Rate (9279-1) 16 /min Heart Rate (8867-4) 71 /min Blood Pressure Systolic (8480-6) 154 mm[Hg] Blood Pressure Diastolic (8462-4) 93 mm[Hg] 06/19/2024 02:50 PM Blood Pressure Systolic (8480-6) 1 08 mm[Hg] Blood Pressure Diastolic (8462-4) 55 mm[Hg] 06/19/2024 12:15 PM Temperature (8310-5) 98 [degF] Oxygen Saturation (11621-7) 91 % Respiratory Rate (9279-1) 18 /min Heart Rate (8867-4) 68 /min 06/20/2024 05:04 PM Temperature (8310-5) 98.9 [degF] Oxygen Saturation (51011-7) 95 % Respiratory Rate (9279-1) 16 /min Heart Rate (8867-4) 78 /min Blood Pressure Systolic (8480-6) 118 mm[Hg] Blood Pressure Diastolic (8462-4) 50 mm[Hg] 06/21/2024 12:37 PM Temperature (8310-5) 97.9 [degF] Oxygen Saturation (49649-9) 90 % Respiratory Rate (9279-1) 14 /min Heart Rate (8867-4) 67 /min Blood Pressure Systolic (8480-6) 103 mm[Hg] Blood Pressure Diastolic (8462-4) 59 mm[Hg] 06/22/2024 02:45 PM Temperature (8310-5) 97.6 [degF] Oxygen Saturation (59313-4) 91 % Respiratory Rate (9279-1) 18 /min Heart Rate (8867-4) 74 /min Blood Pressure Systolic (8480-6) 132 mm[Hg] Blood Pressure Diastolic (8462-4) 66 mm[Hg] 06/23/2024 04:22 PM Temperature (8310-5) 98.3 [degF] Oxygen Saturation (60660-9) 94 % Respiratory Rate (9279-1) 17 /min Heart Rate (8867-4) 69 /min Blood Pressure Systolic (8480-6) 119 mm[Hg] Blood Pressure Diastolic (8462-4) 60 mm[Hg] 06/24/2024 09:22 AM Temperature (8310-5) 98.9 [degF] Oxygen Saturation (18063-6) 99 % Respiratory Rate (9279-1) 19 /min Heart Rate (8867-4) 87 /min Blood Pressure Systolic (8480-6) 137 mm[Hg] Blood Pressure Diastolic (8462-4) 76 mm[Hg] 06/25/2024 05:02 PM Temperature (8310-5) 98.3 [degF] Oxygen Saturation (14128-5) 96 % Respiratory Rate (9279-1) 18 /min Heart Rate (8867-4) 74 /min Blood Pressure Systolic (8480-6) 134 mm[Hg] Blood Pressure Diastolic (8462-4) 76 mm[Hg] 06/26/2024 01:41 PM Temperature (8310-5) 98 [degF] Oxygen Saturation (80097-3) 97 % Respiratory Rate (9279-1) 16 /min Heart Rate (8867-4) 72 /min Blood Pressure Systolic (8480-6) 140 mm[Hg] Blood Pressure Diastolic (8462-4) 77 mm[Hg] 06/26/2024 08:58 AM Body Weight (47751-5) 237.3 [lb_av ] Body Mass Index (38991-8) 37.16 kg/m2 06/27/2024 04:47 PM Body Weight (41720-4) 238.8 [lb_av ] Body Mass Index (67642-6) 37.4 kg/m2 06/27/2024 03:42 PM Temperature (8310-5) 97.5 [degF] Oxygen Saturation (03907-2) 95 % Respiratory Rate (9279-1) 18 /min Heart Rate (8867-4) 77 /min Blood Pressure Systolic (8480-6) 131 mm[Hg] Blood Pressure Diastolic (8462-4) 70 mm[Hg] 06/28/2024 10:51 AM Body Weight (98806-5) 231.2 [lb_av ] Body Mass Index (32865-6) 36.21 kg/m2 06/28/2024 09:44 AM Temperature (8310-5) 98.6 [degF] Oxygen Saturation (35592-8) 91 % Respiratory Rate (9279-1) 20 /min Heart Rate (8867-4) 77 /min Blood Pressure Systolic (8480-6) 149 mm[Hg] Blood Pressure Diastolic (8462-4) 81 mm[Hg] 06/29/2024 08:59 AM Oxygen Saturation (88753-1) 92 % 06/29/2024 08:58 AM Temperature (8310-5) 98 [degF] Respiratory Rate (9279-1) 16 /min Heart Rate (8867-4) 83 /min Blood Pressure Systolic (8480-6) 138 mm[Hg] Blood Pressure Diastolic (8462-4) 63 mm[Hg] 06/30/2024 07:27 PM Oxygen Saturation (08545-5) 98 % 06/30/2024 12:13 PM Temperature (8310-5) 97.5 [degF] Oxygen Saturation (03939-4) 94 % Respiratory Rate (9279-1) 19 /min Heart Rate (8867-4) 75 /min Blood Pressure Systolic (8480-6) 154 mm[Hg] Blood Pressure Diastolic (8462-4) 80 mm[Hg] 06/30/2024 11:41 AM Body Weight (06167-4) 236.06 [lb_a v] Body Mass Index (64004-2) 36.97 kg/m2 07/01/2024 08:57 AM Temperature (8310-5) 98.2 [degF] Oxygen Saturation (34824-7) 97 % Respiratory Rate (9279-1) 20 /min Heart Rate (8867-4) 77 /min Blood Pressure Systolic (8480-6) 136 mm[Hg] Blood Pressure Diastolic (8462-4) 66 mm[Hg] 07/02/2024 01:22 PM Body Weight (59800-7) 233.8 [lb_av ] Body Mass Index (98769-3) 36.61 kg/m2 07/02/2024 01:19 PM Temperature (8310-5) 98.9 [degF] Oxygen Saturation (85404-4) 96 % Respiratory Rate (9279-1) 19 /min Heart Rate (8867-4) 81 /min Blood Pressure Systolic (8480-6) 168 mm[Hg] Blood Pressure Diastolic (8462-4) 73 mm[Hg] 07/01/2024 08:43 PM Oxygen Saturation (96479-5) 95 % 07/03/2024 12:17 PM Temperature (8310-5) 97.8 [degF] Oxygen Saturation (86896-0) 93 % Respiratory Rate (9279-1) 19 /min Heart Rate (8867-4) 72 /min Blood Pressure Systolic (8480-6) 115 mm[Hg] Blood Pressure Diastolic (8462-4) 72 mm[Hg] 07/02/2024 07:50 PM Oxygen Saturation (14910-2) 98 % 07/04/2024 01:19 PM Oxygen Saturation (71861-3) 95 % 07/04/2024 01:18 PM Temperature (8310-5) 98.1 [degF] Oxygen Saturation (70769-9) 95 % Respiratory Rate (9279-1) 19 /min Heart Rate (8867-4) 84 /min Blood Pressure Systolic (8480-6) 107 mm[Hg] Blood Pressure Diastolic (8462-4) 68 mm[Hg] 07/03/2024 09:01 PM Oxygen Saturation (89831-2) 95 % 07/04/2024 07:42 PM Oxygen Saturation (41430-1) 97 % 07/05/2024 07:39 PM Oxygen Saturation (64651-1) 95 % 07/05/2024 11:56 AM Oxygen Saturation (44108-8) 98 % 07/05/2024 11:55 AM Temperature (8310-5) 98.6 [degF] Respiratory Rate (9279-1) 18 /min Heart Rate (8867-4) 74 /min Blood Pressure Systolic (8480-6) 112 mm[Hg] Blood Pressure Diastolic (8462-4) 66 mm[Hg] 07/06/2024 10:03 AM Oxygen Saturation (74523-1) 94 % 07/06/2024 10:02 AM Temperature (8310-5) 98.6 [degF] Oxygen Saturation (72084-2) 94 % Respiratory Rate (9279-1) 19 /min Heart Rate (8867-4) 84 /min Blood Pressure Systolic (8480-6) 143 mm[Hg] Blood Pressure Diastolic (8462-4) 61 mm[Hg] 07/06/2024 08:51 PM Oxygen Saturation (66280-5) 97 % 07/07/2024 09:15 PM Oxygen Saturation (67936-6) 95 % 07/07/2024 12:53 PM Temperature (8310-5) 98.2 [degF] Oxygen Saturation (50303-1) 94 % Respiratory Rate (9279-1) 18 /min Heart Rate (8867-4) 79 /min Blood Pressure Systolic (8480-6) 132 mm[Hg] Blood Pressure Diastolic (8462-4) 65 mm[Hg] 07/08/2024 09:21 AM Temperature (8310-5) 97.1 [degF] Oxygen Saturation (16872-2) 98 % Respiratory Rate (9279-1) 18 /min Heart Rate (8867-4) 71 /min Blood Pressure Systolic (8480-6) 117 mm[Hg] Blood Pressure Diastolic (8462-4) 61 mm[Hg] 07/08/2024 07:20 PM Oxygen Saturation (08203-0) 94 % 07/09/2024 11:45 AM Oxygen Saturation (65378-6) 96 % 07/09/2024 10:24 AM Body Weight (21002-2) 226.4 [lb_av ] Body Mass Index (81653-8) 35.46 kg/m2 07/09/2024 11:47 AM Temperature (8310-5) 97.1 [degF] Respiratory Rate (9279-1) 21 /min Heart Rate (8867-4) 66 /min Blood Pressure Systolic (8480-6) 132 mm[Hg] Blood Pressure Diastolic (8462-4) 65 mm[Hg] 07/09/2024 06:42 PM Oxygen Saturation (68952-7) 96 % 07/10/2024 12:35 PM Oxygen Saturation (03147-7) 98 % 07/10/2024 12:34 PM Oxygen Saturation (85359-8) 98 % Blood Pressure Systolic (8480-6) 147 mm[Hg] Blood Pressure Diastolic (8462-4) 82 mm[Hg] 07/10/2024 12:32 PM Temperature (8310-5) 98.3 [degF] Respiratory Rate (9279-1) 18 /min Heart Rate (8867-4) 65 /min 07/10/2024 10:32 PM Oxygen Saturation (97012-6) 96 % 07/11/2024 04:03 PM Temperature (8310-5) 97.7 [degF] Oxygen Saturation (39860-1) 96 % Respiratory Rate (9279-1) 16 /min Heart Rate (8867-4) 90 /min Blood Pressure Systolic (8480-6) 150 mm[Hg] Blood Pressure Diastolic (8462-4) 84 mm[Hg] 07/11/2024 08:02 PM Oxygen Saturation (33442-0) 95 % 07/12/2024 09:12 AM Temperature (8310-5) 98.9 [degF] Oxygen Saturation (51766-5) 99 % Respiratory Rate (9279-1) 16 /min Heart Rate (8867-4) 63 /min Blood Pressure Systolic (8480-6) 132 mm[Hg] Blood Pressure Diastolic (8462-4) 72 mm[Hg] 07/12/2024 08:33 PM Oxygen Saturation (48720-4) 97 % 07/13/2024 01:07 PM Temperature (8310-5) 97 [degF] Oxygen Saturation (51815-3) 96 % Respiratory Rate (9279-1) 18 /min Heart Rate (8867-4) 70 /min Blood Pressure Systolic (8480-6) 144 mm[Hg] Blood Pressure Diastolic (8462-4) 86 mm[Hg] 07/13/2024 09:47 PM Oxygen Saturation (92559-6) 97 % 07/14/2024 02:31 PM Temperature (8310-5) 98 [degF] Oxygen Saturation (33841-3) 92 % Respiratory Rate (9279-1) 19 /min Heart Rate (8867-4) 63 /min Blood Pressure Systolic (8480-6) 123 mm[Hg] Blood Pressure Diastolic (8462-4) 68 mm[Hg] 07/14/2024 07:02 PM Oxygen Saturation (84702-4) 94 % 07/15/2024 07:29 AM Temperature (8310-5) 97.8 [degF] Oxygen Saturation (29640-6) 96 % Respiratory Rate (9279-1) 18 /min Heart Rate (8867-4) 72 /min Blood Pressure Systolic (8480-6) 137 mm[Hg] Blood Pressure Diastolic (8462-4) 64 mm[Hg] 07/15/2024 06:54 PM Oxygen Saturation (90546-8) 94 % 07/16/2024 01:37 PM Oxygen Saturation (27669-5) 97 % 07/16/2024 01:36 PM Temperature (8310-5) 97.4 [degF] Oxygen Saturation (01568-1) 97 % Respiratory Rate (9279-1) 20 /min Heart Rate (8867-4) 89 /min Blood Pressure Systolic (8480-6) 135 mm[Hg] Blood Pressure Diastolic (8462-4) 70 mm[Hg] 07/16/2024 06:38 PM Oxygen Saturation (41619-2) 99 % 07/17/2024 09:47 AM Body Weight (41062-2) 221.2 [lb_av ] Body Mass Index (55166-1) 34.64 kg/m2 07/17/2024 09:14 AM Temperature (8310-5) 98.2 [degF] Oxygen Saturation (80139-1) 97 % Respiratory Rate (9279-1) 16 /min Heart Rate (8867-4) 60 /min Blood Pressure Systolic (8480-6) 131 mm[Hg] Blood Pressure Diastolic (8462-4) 68 mm[Hg] 07/17/2024 06:52 PM Oxygen Saturation (16139-8) 97 % 07/18/2024 03:34 PM Temperature (8310-5) 97.6 [degF] Oxygen Saturation (95194-3) 97 % Respiratory Rate (9279-1) 18 /min Heart Rate (8867-4) 74 /min Blood Pressure Systolic (8480-6) 169 mm[Hg] Blood Pressure Diastolic (8462-4) 81 mm[Hg] 07/18/2024 08:19 PM Oxygen Saturation (97132-1) 97 % 07/19/2024 07:04 AM Temperature (8310-5) 97 [degF] Oxygen Saturation (36274-1) 95 % Respiratory Rate (9279-1) 17 /min Heart Rate (8867-4) 53 /min Blood Pressure Systolic (8480-6) 145 mm[Hg] Blood Pressure Diastolic (8462-4) 72 mm[Hg] 07/19/2024 09:41 PM Oxygen Saturation (78202-6) 98 % 07/20/2024 08:25 AM Temperature (8310-5) 96.7 [degF] Oxygen Saturation (38416-0) 97 % Respiratory Rate (9279-1) 20 /min Heart Rate (8867-4) 51 /min Blood Pressure Systolic (8480-6) 140 mm[Hg] Blood Pressure Diastolic (8462-4) 86 mm[Hg] 07/20/2024 08:16 PM Oxygen Saturation (20078-0) 98 % 07/21/2024 11:59 AM Temperature (8310-5) 97.4 [degF] Oxygen Saturation (90156-8) 95 % Respiratory Rate (9279-1) 19 /min Heart Rate (8867-4) 71 /min Blood Pressure Systolic (8480-6) 129 mm[Hg] Blood Pressure Diastolic (8462-4) 79 mm[Hg] 07/21/2024 06:33 PM Oxygen Saturation (81498-8) 98 % 07/22/2024 01:23 PM Body Weight (17876-7) 222.2 [lb_av ] Body Mass Index (14267-2) 34.8 kg/m2 07/22/2024 11:11 AM Temperature (8310-5) 97.3 [degF] Oxygen Saturation (42516-3) 96 % Respiratory Rate (9279-1) 19 /min Heart Rate (8867-4) 70 /min Blood Pressure Systolic (8480-6) 145 mm[Hg] Blood Pressure Diastolic (8462-4) 68 mm[Hg] 07/22/2024 08:50 PM Oxygen Saturation (36227-7) 96 % 07/23/2024 11:04 AM Temperature (8310-5) 96.9 [degF] Oxygen Saturation (90321-3) 96 % Respiratory Rate (9279-1) 20 /min Heart Rate (8867-4) 65 /min Blood Pressure Systolic (8480-6) 133 mm[Hg] Blood Pressure Diastolic (8462-4) 73 mm[Hg] 07/23/2024 07:34 PM Oxygen Saturation (74926-8) 97 % 07/24/2024 11:43 AM Temperature (8310-5) 97.8 [degF] Oxygen Saturation (77284-0) 98 % Respiratory Rate (9279-1) 16 /min Heart Rate (8867-4) 52 /min Blood Pressure Systolic (8480-6) 138 mm[Hg] Blood Pressure Diastolic (8462-4) 70 mm[Hg] 07/25/2024 12:10 AM Oxygen Saturation (35776-1) 98 % 07/25/2024 01:42 PM Temperature (8310-5) 98.6 [degF] Oxygen Saturation (34913-6) 96 % Respiratory Rate (9279-1) 17 /min Heart Rate (8867-4) 67 /min Blood Pressure Systolic (8480-6) 126 mm[Hg] Blood Pressure Diastolic (8462-4) 72 mm[Hg] 07/25/2024 10:46 PM Oxygen Saturation (06688-7) 92 % 07/26/2024 08:34 AM Temperature (8310-5) 97.6 [degF] Oxygen Saturation (13937-6) 96 % Respiratory Rate (9279-1) 19 /min Heart Rate (8867-4) 62 /min Blood Pressure Systolic (8480-6) 121 mm[Hg] Blood Pressure Diastolic (8462-4) 64 mm[Hg] 07/26/2024 08:48 PM Oxygen Saturation (10321-2) 97 % 07/27/2024 12:52 PM Temperature (8310-5) 97.8 [degF] Respiratory Rate (9279-1) 20 /min Heart Rate (8867-4) 63 /min Blood Pressure Systolic (8480-6) 122 mm[Hg] Blood Pressure Diastolic (8462-4) 77 mm[Hg] 07/27/2024 10:42 AM Oxygen Saturation (09435-8) 95 % 07/28/2024 09:22 AM Body Weight (42873-3) 218 [lb_av] Body Mass Index (66888-5) 34.14 kg/m2 07/28/2024 01:54 PM Temperature (8310-5) 98 [degF] Oxygen Saturation (19318-4) 95 % Respiratory Rate (9279-1) 17 /min Heart Rate (8867-4) 70 /min Blood Pressure Systolic (8480-6) 119 mm[Hg] Blood Pressure Diastolic (8462-4) 65 mm[Hg] 07/28/2024 08:12 PM Oxygen Saturation (86900-6) 90 % 07/29/2024 09:27 AM Temperature (8310-5) 97.3 [degF] Oxygen Saturation (88120-2) 96 % Respiratory Rate (9279-1) 19 /min Heart Rate (8867-4) 61 /min Blood Pressure Systolic (8480-6) 145 mm[Hg] Blood Pressure Diastolic (8462-4) 62 mm[Hg] 07/29/2024 11:05 AM Body Weight (16925-6) 218 [lb_av] Body Mass Index (60761-1) 34.14 kg/m2 07/29/2024 09:36 PM Oxygen Saturation (67673-9) 97 % 07/30/2024 12:54 PM Temperature (8310-5) 97.3 [degF] Oxygen Saturation (84933-8) 97 % Respiratory Rate (9279-1) 19 /min Heart Rate (8867-4) 66 /min Blood Pressure Systolic (8480-6) 129 mm[Hg] Blood Pressure Diastolic (8462-4) 62 mm[Hg] 07/30/2024 07:30 PM Oxygen Saturation (70842-6) 92 % 07/31/2024 04:06 PM Body Weight (80094-8) 206.8 [lb_av ] Body Mass Index (55711-7) 32.39 kg/m2 07/31/2024 12:15 PM Temperature (8310-5) 97.8 [degF] Oxygen Saturation (92520-3) 98 % Respiratory Rate (9279-1) 16 /min Heart Rate (8867-4) 60 /min Blood Pressure Systolic (8480-6) 132 mm[Hg] Blood Pressure Diastolic (8462-4) 68 mm[Hg] 08/01/2024 08:50 PM Oxygen Saturation (35764-3) 95 % 08/01/2024 08:49 PM Temperature (8310-5) 97 [degF] Oxygen Saturation (54759-5) 97 % Respiratory Rate (9279-1) 18 /min Heart Rate (8867-4) 78 /min Blood Pressure Systolic (8480-6) 124 mm[Hg] Blood Pressure Diastolic (8462-4) 78 mm[Hg] 08/02/2024 11:57 AM Body Weight (08602-5) 205.6 [lb_av ] Body Mass Index (79643-0) 32.2 kg/m2 08/02/2024 09:50 AM Temperature (8310-5) 97.7 [degF] Oxygen Saturation (26310-2) 95 % Respiratory Rate (9279-1) 20 /min Heart Rate (8867-4) 74 /min Blood Pressure Systolic (8480-6) 120 mm[Hg] Blood Pressure Diastolic (8462-4) 65 mm[Hg] 08/02/2024 11:33 PM Oxygen Saturation (38341-4) 95 % 08/03/2024 02:41 PM Temperature (8310-5) 97.8 [degF] Oxygen Saturation (05105-9) 96 % Respiratory Rate (9279-1) 20 /min Heart Rate (8867-4) 75 /min Blood Pressure Systolic (8480-6) 130 mm[Hg] Blood Pressure Diastolic (8462-4) 62 mm[Hg] 08/03/2024 07:37 PM Oxygen Saturation (05811-3) 98 % 08/04/2024 11:30 AM Temperature (8310-5) 97.9 [degF] Respiratory Rate (9279-1) 21 /min Heart Rate (8867-4) 80 /min Blood Pressure Systolic (8480-6) 122 mm[Hg] Blood Pressure Diastolic (8462-4) 62 mm[Hg] 08/04/2024 11:28 AM Oxygen Saturation (42364-7) 96 % 08/04/2024 08:31 PM Oxygen Saturation (29478-9) 90 % 08/05/2024 08:54 AM Temperature (8310-5) 97.3 [degF] Oxygen Saturation (28579-3) 96 % Respiratory Rate (9279-1) 17 /min Heart Rate (8867-4) 8 /min Blood Pressure Systolic (8480-6) 100 mm[Hg] Blood Pressure Diastolic (8462-4) 50 mm[Hg] 08/05/2024 10:45 AM Body Weight (58960-3) 206.8 [lb_av ] Body Mass Index (35647-7) 32.39 kg/m2 08/05/2024 07:00 PM Oxygen Saturation (05590-5) 94 % 08/06/2024 04:51 PM Temperature (8310-5) 98 [degF] Oxygen Saturation (81625-1) 96 % Respiratory Rate (9279-1) 18 /min Heart Rate (8867-4) 75 /min Blood Pressure Systolic (8480-6) 110 mm[Hg] Blood Pressure Diastolic (8462-4) 62 mm[Hg] 08/06/2024 06:34 PM Oxygen Saturation (58172-8) 97 % 08/07/2024 03:46 PM Temperature (8310-5) 97.3 [degF] Oxygen Saturation (95436-0) 95 % Respiratory Rate (9279-1) 16 /min Heart Rate (8867-4) 55 /min Blood Pressure Systolic (8480-6) 124 mm[Hg] Blood Pressure Diastolic (8462-4) 62 mm[Hg] 08/07/2024 07:17 PM Oxygen Saturation (44370-9) 96 % 08/08/2024 04:52 PM Temperature (8310-5) 97.9 [degF] Oxygen Saturation (05104-7) 95 % Respiratory Rate (9279-1) 20 /min Heart Rate (8867-4) 61 /min Blood Pressure Systolic (8480-6) 131 mm[Hg] Blood Pressure Diastolic (8462-4) 71 mm[Hg] 08/08/2024 02:39 PM Oxygen Saturation (40629-0) 95 % 08/08/2024 11:47 PM Oxygen Saturation (66727-9) 98 % 08/09/2024 10:01 AM Temperature (8310-5) 97.8 [degF] Oxygen Saturation (83096-2) 99 % Respiratory Rate (9279-1) 19 /min Heart Rate (8867-4) 62 /min Blood Pressure Systolic (8480-6) 138 mm[Hg] Blood Pressure Diastolic (8462-4) 72 mm[Hg] 08/09/2024 10:17 PM Oxygen Saturation (86165-3) 95 % 08/10/2024 10:13 AM Temperature (8310-5) 98.2 [degF] Oxygen Saturation (45554-2) 96 % Respiratory Rate (9279-1) 18 /min Heart Rate (8867-4) 52 /min Blood Pressure Systolic (8480-6) 161 mm[Hg] Blood Pressure Diastolic (8462-4) 65 mm[Hg] 08/10/2024 10:25 PM Oxygen Saturation (03644-9) 96 % 08/11/2024 06:00 PM Temperature (8310-5) 97.9 [degF] Oxygen Saturation (67591-6) 95 % Respiratory Rate (9279-1) 20 /min Heart Rate (8867-4) 71 /min Blood Pressure Systolic (8480-6) 154 mm[Hg] Blood Pressure Diastolic (8462-4) 81 mm[Hg] 08/11/2024 06:23 PM Oxygen Saturation (14354-6) 93 % 08/12/2024 09:14 AM Temperature (8310-5) 98.1 [degF] 08/12/2024 10:58 AM Body Weight (27508-7) 208 [lb_av] Body Mass Index (89656-3) 32.57 kg/m2 08/12/2024 03:55 PM Oxygen Saturation (23280-3) 95 % Respiratory Rate (9279-1) 18 /min Heart Rate (8867-4) 76 /min Blood Pressure Systolic (8480-6) 170 mm[Hg] Blood Pressure Diastolic (8462-4) 90 mm[Hg] 08/13/2024 08:50 AM Oxygen Saturation (68982-8) 98 % 08/13/2024 08:49 AM Temperature (8310-5) 99.1 [degF] Oxygen Saturation (94173-5) 98 % Respiratory Rate (9279-1) 20 /min Heart Rate (8867-4) 74 /min Blood Pressure Systolic (8480-6) 150 mm[Hg] Blood Pressure Diastolic (8462-4) 60 mm[Hg] 08/12/2024 09:13 PM Oxygen Saturation (69232-9) 98 % 08/13/2024 08:04 PM Oxygen Saturation (54505-3) 96 % 08/14/2024 05:44 PM Temperature (8310-5) 97.2 [degF] Oxygen Saturation (89892-1) 90 % Respiratory Rate (9279-1) 20 /min Heart Rate (8867-4) 63 /min Blood Pressure Systolic (8480-6) 167 mm[Hg] Blood Pressure Diastolic (8462-4) 66 mm[Hg] 08/14/2024 06:59 PM Oxygen Saturation (61643-4) 98 % 08/15/2024 03:38 PM Oxygen Saturation (65593-4) 98 % 08/15/2024 03:37 PM Temperature (8310-5) 97.8 [degF] Respiratory Rate (9279-1) 16 /min Heart Rate (8867-4) 84 /min Blood Pressure Systolic (8480-6) 170 mm[Hg] Blood Pressure Diastolic (8462-4) 79 mm[Hg] 08/15/2024 10:10 PM Oxygen Saturation (22305-7) 97 % 08/16/2024 12:57 PM Temperature (8310-5) 97.9 [degF] Oxygen Saturation (55644-2) 96 % Respiratory Rate (9279-1) 19 /min Heart Rate (8867-4) 81 /min Blood Pressure Systolic (8480-6) 118 mm[Hg] Blood Pressure Diastolic (8462-4) 72 mm[Hg] 08/16/2024 08:02 PM Oxygen Saturation (83797-0) 95 % 08/17/2024 10:33 AM Temperature (8310-5) 97.7 [degF] Respiratory Rate (9279-1) 18 /min Heart Rate (8867-4) 67 /min Blood Pressure Systolic (8480-6) 122 mm[Hg] Blood Pressure Diastolic (8462-4) 71 mm[Hg] 08/17/2024 10:34 AM Oxygen Saturation (43522-5) 98 % 08/17/2024 08:10 PM Oxygen Saturation (94646-4) 97 % 08/18/2024 04:56 PM Oxygen Saturation (25258-4) 96 % Respiratory Rate (9279-1) 18 /min Heart Rate (8867-4) 70 /min Blood Pressure Systolic (8480-6) 115 mm[Hg] Blood Pressure Diastolic (8462-4) 71 mm[Hg] 08/18/2024 07:47 PM Oxygen Saturation (00940-8) 96 % 08/19/2024 08:36 AM Temperature (8310-5) 97.7 [degF] Oxygen Saturation (46894-8) 95 % Respiratory Rate (9279-1) 16 /min Heart Rate (8867-4) 98 /min Blood Pressure Systolic (8480-6) 135 mm[Hg] Blood Pressure Diastolic (8462-4) 62 mm[Hg] 08/19/2024 07:29 PM Oxygen Saturation (22835-1) 93 % 08/18/2024 04:07 PM Body Weight (44422-9) 207.9 [lb_av ] Body Mass Index (05981-3) 32.56 kg/m2 08/20/2024 12:54 PM Temperature (8310-5) 96.8 [degF] Oxygen Saturation (93858-1) 93 % Respiratory Rate (9279-1) 18 /min Heart Rate (8867-4) 84 /min Blood Pressure Systolic (8480-6) 123 mm[Hg] Blood Pressure Diastolic (8462-4) 70 mm[Hg] 08/11/2024 04:06 PM Body Weight (52260-2) 208.1 [lb_av ] Body Mass Index (00455-8) 32.59 kg/m2 08/15/2024 04:06 PM Body Weight (51974-0) 206.8 [lb_av ] Body Mass Index (41900-8) 32.39 kg/m2 08/20/2024 07:04 PM Oxygen Saturation (44108-2) 98 % 08/21/2024 08:20 AM Temperature (8310-5) 97.8 [degF] Oxygen Saturation (29398-0) 99 % Respiratory Rate (9279-1) 16 /min Heart Rate (8867-4) 65 /min Blood Pressure Systolic (8480-6) 142 mm[Hg] Blood Pressure Diastolic (8462-4) 72 mm[Hg] 08/21/2024 12:12 PM Body Weight (64579-9) 209.4 [lb_av ] Body Mass Index (70010-4) 32.79 kg/m2 08/21/2024 06:29 PM Oxygen Saturation (64739-2) 93 % 08/22/2024 03:12 PM Temperature (8310-5) 98.8 [degF] Oxygen Saturation (53455-2) 97 % Respiratory Rate (9279-1) 17 /min Heart Rate (8867-4) 67 /min Blood Pressure Systolic (8480-6) 134 mm[Hg] Blood Pressure Diastolic (8462-4) 76 mm[Hg] 08/22/2024 07:04 PM Oxygen Saturation (11453-0) 99 % 08/23/2024 09:19 AM Temperature (8310-5) 97.9 [degF] Oxygen Saturation (68271-3) 98 % Respiratory Rate (9279-1) 19 /min Heart Rate (8867-4) 61 /min Blood Pressure Systolic (8480-6) 125 mm[Hg] Blood Pressure Diastolic (8462-4) 68 mm[Hg] 08/23/2024 07:19 PM Oxygen Saturation (14383-0) 98 % 08/24/2024 08:42 AM Temperature (8310-5) 97.8 [degF] Oxygen Saturation (63851-9) 96 % Respiratory Rate (9279-1) 18 /min Heart Rate (8867-4) 66 /min Blood Pressure Systolic (8480-6) 111 mm[Hg] Blood Pressure Diastolic (8462-4) 62 mm[Hg] 08/24/2024 08:43 AM Oxygen Saturation (11727-8) 96 % 08/24/2024 06:43 PM Oxygen Saturation (45237-5) 98 % 08/25/2024 05:16 PM Oxygen Saturation (04897-7) 97 % 08/25/2024 05:23 PM Temperature (8310-5) 97.6 [degF] Oxygen Saturation (78148-8) 97 % Respiratory Rate (9279-1) 19 /min Heart Rate (8867-4) 69 /min Blood Pressure Systolic (8480-6) 123 mm[Hg] Blood Pressure Diastolic (8462-4) 67 mm[Hg] 08/26/2024 01:15 AM Oxygen Saturation (97855-6) 96 % 08/26/2024 01:27 PM Temperature (8310-5) 97.3 [degF] Oxygen Saturation (80846-0) 95 % Respiratory Rate (9279-1) 18 /min Heart Rate (8867-4) 54 /min Blood Pressure Systolic (8480-6) 142 mm[Hg] Blood Pressure Diastolic (8462-4) 72 mm[Hg] 08/26/2024 01:26 PM Oxygen Saturation (60657-0) 95 % 08/27/2024 12:32 PM Temperature (8310-5) 96.8 [degF] Oxygen Saturation (76190-2) 99 % Respiratory Rate (9279-1) 16 /min Heart Rate (8867-4) 64 /min Blood Pressure Systolic (8480-6) 160 mm[Hg] Blood Pressure Diastolic (8462-4) 88 mm[Hg] 08/27/2024 12:33 PM Oxygen Saturation (22257-5) 99 % 08/27/2024 06:59 PM Oxygen Saturation (85968-7) 94 % 08/28/2024 03:05 PM Body Weight (72444-3) 208.6 [lb_av ] Body Mass Index (12662-1) 32.67 kg/m2 08/28/2024 02:41 PM Temperature (8310-5) 97.1 [degF] Oxygen Saturation (36950-6) 92 % Respiratory Rate (9279-1) 18 /min Heart Rate (8867-4) 72 /min Blood Pressure Systolic (8480-6) 116 mm[Hg] Blood Pressure Diastolic (8462-4) 67 mm[Hg] 08/28/2024 02:42 PM Body Weight (95274-8) 208.6 [lb_av ] Body Mass Index (16417-2) 32.67 kg/m2 08/28/2024 08:37 PM Oxygen Saturation (08063-6) 95 % 08/29/2024 05:39 PM Temperature (8310-5) 97.7 [degF] Oxygen Saturation (55359-8) 98 % Respiratory Rate (9279-1) 17 /min Heart Rate (8867-4) 74 /min Blood Pressure Systolic (8480-6) 156 mm[Hg] Blood Pressure Diastolic (8462-4) 74 mm[Hg] 08/29/2024 07:56 PM Oxygen Saturation (87585-2) 97 % 08/30/2024 08:38 AM Temperature (8310-5) 97.3 [degF] Oxygen Saturation (24753-9) 95 % Respiratory Rate (9279-1) 17 /min Heart Rate (8867-4) 57 /min Blood Pressure Systolic (8480-6) 102 mm[Hg] Blood Pressure Diastolic (8462-4) 57 mm[Hg] 08/30/2024 12:05 PM Body Weight (01062-1) 207.8 [lb_av ] Body Mass Index (29552-7) 32.54 kg/m2 08/30/2024 07:25 PM Oxygen Saturation (44854-9) 97 % 08/31/2024 08:25 AM Temperature (8310-5) 97 [degF] Oxygen Saturation (92978-8) 94 % Respiratory Rate (9279-1) 18 /min Heart Rate (8867-4) 95 /min Blood Pressure Systolic (8480-6) 102 mm[Hg] Blood Pressure Diastolic (8462-4) 59 mm[Hg] 08/31/2024 10:52 AM Body Weight (27675-2) 207.6 [lb_av ] Body Mass Index (79608-9) 32.51 kg/m2 08/31/2024 07:24 PM Oxygen Saturation (85747-7) 98 % 09/01/2024 05:10 PM Temperature (8310-5) 97 [degF] Oxygen Saturation (88788-3) 94 % Respiratory Rate (9279-1) 18 /min Heart Rate (8867-4) 66 /min Blood Pressure Systolic (8480-6) 98 mm[Hg] Blood Pressure Diastolic (8462-4) 57 mm[Hg] 09/01/2024 05:12 PM Body Weight (70786-3) 206.9 [lb_av ] Body Mass Index (75839-2) 32.4 kg/m2 12/28/2024 07:57 PM Oxygen Saturation (53529-6) 96 % 11/05/2024 11:08 AM Body Weight (01742-8) 194.6 [lb_av ] Body Mass Index (73198-9) 30.48 kg/m2 12/29/2024 12:18 PM Temperature (8310-5) 98 [degF] Oxygen Saturation (36066-9) 98 % Respiratory Rate (9279-1) 18 /min Heart Rate (8867-4) 86 /min Blood Pressure Systolic (8480-6) 121 mm[Hg] Blood Pressure Diastolic (8462-4) 69 mm[Hg] 12/04/2024 08:55 AM Body Weight (89040-7) 182.7 [lb_av ] Body Mass Index (90767-3) 28.61 kg/m2 01/01/2025 11:31 AM Temperature (8310-5) 97.1 [degF] Oxygen Saturation (56318-3) 98 % Respiratory Rate (9279-1) 18 /min Heart Rate (8867-4) 73 /min Blood Pressure Systolic (8480-6) 134 mm[Hg] Blood Pressure Diastolic (8462-4) 87 mm[Hg] Body Weight (27817-3) 182.3 [lb_av] Body Mass Index (59683-0) 28.55 kg/m2 12/03/2024 01:07 PM Body Weight (20486-7) 182 [lb_av] Body Mass Index (30480-3) 28.5 kg/m2 12/30/2024 07:46 PM Temperature (8310-5) 96.8 [degF] Oxygen Saturation (39283-3) 96 % Respiratory Rate (9279-1) 19 /min Heart Rate (8867-4) 63 /min Blood Pressure Systolic (8480-6) 122 mm[Hg] Blood Pressure Diastolic (8462-4) 75 mm[Hg] 12/31/2024 07:26 PM Temperature (8310-5) 97.4 [degF] Oxygen Saturation (35318-8) 97 % Respiratory Rate (9279-1) 18 /min Heart Rate (8867-4) 80 /min Blood Pressure Systolic (8480-6) 122 mm[Hg] Blood Pressure Diastolic (8462-4) 68 mm[Hg] 11/13/2024 01:43 PM Body Weight (76439-9) 194.6 [lb_av ] Body Mass Index (46767-8) 30.48 kg/m2 12/31/2024 03:44 PM Temperature (8310-5) 96 [degF] Oxygen Saturation (62053-3) 98 % Respiratory Rate (9279-1) 16 /min Heart Rate (8867-4) 85 /min Blood Pressure Systolic (8480-6) 112 mm[Hg] Blood Pressure Diastolic (8462-4) 86 mm[Hg] Body Weight (85495-6) 182 [lb_av] Body Mass Index (15900-1) 28.5 kg/m2 12/30/2024 12:24 PM Temperature (8310-5) 98.2 [degF] Oxygen Saturation (96828-9) 96 % Respiratory Rate (9279-1) 16 /min Heart Rate (8867-4) 75 /min Blood Pressure Systolic (8480-6) 169 mm[Hg] Blood Pressure Diastolic (8462-4) 86 mm[Hg] 11/18/2024 02:06 PM Body Weight (79083-8) 188.3 [lb_av ] Body Mass Index (45677-9) 29.49 kg/m2 11/25/2024 04:52 PM Body Weight (41314-0) 187.2 [lb_av ] Body Mass Index (67649-9) 29.32 kg/m2 10/22/2024 12:56 PM Body Weight (91591-4) 188.8 [lb_av ] Body Mass Index (47409-0) 29.57 kg/m2 10/15/2024 11:47 AM Body Weight (91438-9) 192 [lb_av] Body Mass Index (04699-0) 30.07 kg/m2 01/01/2025 08:19 PM Temperature (8310-5) 98.4 [degF] Oxygen Saturation (98513-4) 98 % Respiratory Rate (9279-1) 19 /min Heart Rate (8867-4) 78 /min Blood Pressure Systolic (8480-6) 118 mm[Hg] Blood Pressure Diastolic (8462-4) 86 mm[Hg] 12/29/2024 12:26 PM Body Weight (35355-1) 182.2 [lb_av ] Body Mass Index (77677-8) 28.53 kg/m2 11/28/2024 03:16 PM Body Weight (17275-6) 187.4 [lb_av ] Body Mass Index (60932-1) 29.35 kg/m2 12/28/2024 07:17 AM Temperature (8310-5) 97.6 [degF] Oxygen Saturation (94399-2) 98 % Respiratory Rate (9279-1) 20 /min Heart Rate (8867-4) 81 /min Blood Pressure Systolic (8480-6) 157 mm[Hg] Blood Pressure Diastolic (8462-4) 78 mm[Hg] 10/15/2024 04:41 PM Body Weight (60022-7) 189.6 [lb_av ] Body Mass Index (40336-8) 29.69 kg/m2 12/29/2024 11:27 AM Body Weight (35292-5) 177.32 [lb_a v] Body Mass Index (28294-6) 27.77 kg/m2 12/11/2024 12:18 PM Body Weight (09679-4) 178.2 [lb_av ] Body Mass Index (59969-0) 27.91 kg/m2 12/01/2024 03:47 PM Body Weight (79083-9) 188 [lb_av] Body Mass Index (75114-9) 29.44 kg/m2 10/28/2024 05:04 PM Body Weight (37302-1) 197.6 [lb_av ] Body Mass Index (86216-4) 30.95 kg/m2 10/29/2024 12:14 PM Body Weight (35181-1) 187 [lb_av] Body Mass Index (64077-9) 29.29 kg/m2 10/09/2024 01:57 PM Body Weight (83220-0) 185.6 [lb_av ] Body Mass Index (25124-6) 29.07 kg/m2 12/02/2024 11:02 AM Body Weight (81305-0) 182.2 [lb_av ] Body Mass Index (90873-1) 28.53 kg/m2 10/08/2024 05:26 PM Body Weight (95805-8) 198 [lb_av] Body Mass Index (05576-9) 31.01 kg/m2 12/28/2024 07:56 PM Temperature (8310-5) 98.5 [degF] Respiratory Rate (9279-1) 16 /min Heart Rate (8867-4) 80 /min Blood Pressure Systolic (8480-6) 152 mm[Hg] Blood Pressure Diastolic (8462-4) 74 mm[Hg] 12/29/2024 08:03 PM Temperature (8310-5) 97.5 [degF] Oxygen Saturation (01811-0) 98 % Respiratory Rate (9279-1) 20 /min Heart Rate (8867-4) 72 /min Blood Pressure Systolic (8480-6) 108 mm[Hg] Blood Pressure Diastolic (8462-4) 70 mm[Hg] 10/31/2024 05:06 PM Body Weight (61274-2) 190.3 [lb_av ] Body Mass Index (20842-5) 29.8 kg/m2 10/22/2024 05:05 PM Body Weight (94267-1) 184.5 [lb_av ] Body Mass Index (30551-0) 28.89 kg/m2 01/02/2025 03:13 PM Temperature (8310-5) 98 [degF] Oxygen Saturation (51896-1) 98 % Respiratory Rate (9279-1) 21 /min Heart Rate (8867-4) 112 /min Blood Pressure Systolic (8480-6) 102 mm[Hg] Blood Pressure Diastolic (8462-4) 63 mm[Hg] 01/02/2025 03:15 PM Body Weight (96704-4) 183.1 [lb_av ] Body Mass Index (43083-8) 28.67 kg/m2 01/02/2025 08:04 PM Oxygen Saturation (25445-1) 98 % Respiratory Rate (9279-1) 17 /min Heart Rate (8867-4) 89 /min Blood Pressure Systolic (8480-6) 103 mm[Hg] Blood Pressure Diastolic (8462-4) 76 mm[Hg] 01/02/2025 08:03 PM Temperature (8310-5) 98 [degF] 01/03/2025 08:41 AM Temperature (8310-5) 97.4 [degF] Oxygen Saturation (68139-4) 96 % Respiratory Rate (9279-1) 18 /min Heart Rate (8867-4) 85 /min Blood Pressure Systolic (8480-6) 134 mm[Hg] Blood Pressure Diastolic (8462-4) 75 mm[Hg] 01/03/2025 07:14 PM Temperature (8310-5) 98 [degF] Oxygen Saturation (04824-8) 98 % Respiratory Rate (9279-1) 23 /min Heart Rate (8867-4) 61 /min Blood Pressure Systolic (8480-6) 119 mm[Hg] Blood Pressure Diastolic (8462-4) 60 mm[Hg] 01/04/2025 03:34 PM Temperature (8310-5) 97.3 [degF] Oxygen Saturation (88596-3) 96 % Respiratory Rate (9279-1) 17 /min Heart Rate (8867-4) 64 /min Blood Pressure Systolic (8480-6) 134 mm[Hg] Blood Pressure Diastolic (8462-4) 75 mm[Hg] 01/04/2025 08:31 PM Oxygen Saturation (56761-9) 92 % Blood Pressure Systolic (8480-6) 165 mm[Hg] Blood Pressure Diastolic (8462-4) 92 mm[Hg] 01/04/2025 08:30 PM Respiratory Rate (9279-1) 18 /min 01/04/2025 08:29 PM Temperature (8310-5) 97.1 [degF] Heart Rate (8867-4) 80 /min 01/05/2025 12:57 PM Temperature (8310-5) 97.6 [degF] Oxygen Saturation (87635-8) 94 % Respiratory Rate (9279-1) 19 /min Heart Rate (8867-4) 76 /min Blood Pressure Systolic (8480-6) 136 mm[Hg] Blood Pressure Diastolic (8462-4) 73 mm[Hg] 01/06/2025 07:56 AM Temperature (8310-5) 98 [degF] Oxygen Saturation (67383-1) 98 % Respiratory Rate (9279-1) 16 /min Heart Rate (8867-4) 82 /min Blood Pressure Systolic (8480-6) 132 mm[Hg] Blood Pressure Diastolic (8462-4) 72 mm[Hg] 01/06/2025 11:08 AM Body Weight (62132-0) 182.38 [lb_a v] Body Mass Index (50255-3) 28.56 kg/m2 01/06/2025 07:57 PM Temperature (8310-5) 97.5 [degF] Oxygen Saturation (09215-4) 95 % Respiratory Rate (9279-1) 22 /min Heart Rate (8867-4) 75 /min Blood Pressure Systolic (8480-6) 120 mm[Hg] Blood Pressure Diastolic (8462-4) 67 mm[Hg] 01/07/2025 03:24 PM Temperature (8310-5) 98 [degF] Oxygen Saturation (57909-6) 96 % Respiratory Rate (9279-1) 18 /min Heart Rate (8867-4) 73 /min Blood Pressure Systolic (8480-6) 132 mm[Hg] Blood Pressure Diastolic (8462-4) 81 mm[Hg] 01/07/2025 09:31 PM Temperature (8310-5) 97 [degF] Oxygen Saturation (95270-6) 99 % Respiratory Rate (9279-1) 16 /min Heart Rate (8867-4) 73 /min Blood Pressure Systolic (8480-6) 120 mm[Hg] Blood Pressure Diastolic (8462-4) 69 mm[Hg] 01/08/2025 04:17 PM Temperature (8310-5) 96.6 [degF] Oxygen Saturation (49082-5) 99 % Respiratory Rate (9279-1) 16 /min Heart Rate (8867-4) 68 /min Blood Pressure Systolic (8480-6) 101 mm[Hg] Blood Pressure Diastolic (8462-4) 69 mm[Hg] 01/08/2025 07:59 PM Temperature (8310-5) 97.9 [degF] Oxygen Saturation (37740-2) 96 % Respiratory Rate (9279-1) 17 /min Heart Rate (8867-4) 73 /min Blood Pressure Systolic (8480-6) 137 mm[Hg] Blood Pressure Diastolic (8462-4) 61 mm[Hg] 01/09/2025 02:03 PM Temperature (8310-5) 96.4 [degF] Oxygen Saturation (41124-7) 99 % Respiratory Rate (9279-1) 16 /min Heart Rate (8867-4) 87 /min Blood Pressure Systolic (8480-6) 144 mm[Hg] Blood Pressure Diastolic (8462-4) 92 mm[Hg] 01/09/2025 08:18 PM Oxygen Saturation (87911-5) 99 % Blood Pressure Systolic (8480-6) 175 mm[Hg] Blood Pressure Diastolic (8462-4) 92 mm[Hg] 01/09/2025 08:17 PM Temperature (8310-5) 98.6 [degF] Respiratory Rate (9279-1) 23 /min Heart Rate (8867-4) 97 /min 01/10/2025 02:19 PM Temperature (8310-5) 97.6 [degF] Oxygen Saturation (83689-2) 97 % Respiratory Rate (9279-1) 19 /min Heart Rate (8867-4) 78 /min Blood Pressure Systolic (8480-6) 122 mm[Hg] Blood Pressure Diastolic (8462-4) 64 mm[Hg] 01/10/2025 06:42 PM Temperature (8310-5) 98.2 [degF] Oxygen Saturation (25965-7) 97 % Respiratory Rate (9279-1) 16 /min Heart Rate (8867-4) 72 /min Blood Pressure Systolic (8480-6) 126 mm[Hg] Blood Pressure Diastolic (8462-4) 84 mm[Hg] 01/11/2025 07:21 AM Temperature (8310-5) 97.7 [degF] Oxygen Saturation (62160-4) 95 % Respiratory Rate (9279-1) 19 /min Heart Rate (8867-4) 78 /min Blood Pressure Systolic (8480-6) 130 mm[Hg] Blood Pressure Diastolic (8462-4) 71 mm[Hg] 01/11/2025 11:04 PM Oxygen Saturation (00029-9) 97 % Heart Rate (8867-4) 78 /min Blood Pressure Systolic (8480-6) 128 mm[Hg] Blood Pressure Diastolic (8462-4) 60 mm[Hg] 01/12/2025 07:43 AM Temperature (8310-5) 97.6 [degF] Oxygen Saturation (89823-4) 98 % Respiratory Rate (9279-1) 21 /min Heart Rate (8867-4) 73 /min Blood Pressure Systolic (8480-6) 158 mm[Hg] Blood Pressure Diastolic (8462-4) 79 mm[Hg] 01/12/2025 09:45 PM Temperature (8310-5) 98.1 [degF] Oxygen Saturation (13357-8) 97 % Respiratory Rate (9279-1) 18 /min Heart Rate (8867-4) 70 /min Blood Pressure Systolic (8480-6) 140 mm[Hg] Blood Pressure Diastolic (8462-4) 78 mm[Hg] 01/13/2025 08:41 AM Temperature (8310-5) 98 [degF] Oxygen Saturation (02662-5) 91 % Respiratory Rate (9279-1) 18 /min Heart Rate (8867-4) 84 /min Blood Pressure Systolic (8480-6) 126 mm[Hg] Blood Pressure Diastolic (8462-4) 55 mm[Hg] 01/13/2025 08:37 AM Body Weight (39850-1) 177.9 [lb_av ] Body Mass Index (12234-2) 27.86 kg/m2 01/13/2025 08:19 PM Temperature (8310-5) 97 [degF] Oxygen Saturation (82189-5) 95 % Respiratory Rate (9279-1) 20 /min Heart Rate (8867-4) 77 /min Blood Pressure Systolic (8480-6) 149 mm[Hg] Blood Pressure Diastolic (8462-4) 69 mm[Hg] 01/14/2025 03:38 PM Temperature (8310-5) 97.9 [degF] Oxygen Saturation (22432-2) 98 % Respiratory Rate (9279-1) 20 /min Heart Rate (8867-4) 74 /min Blood Pressure Systolic (8480-6) 122 mm[Hg] Blood Pressure Diastolic (8462-4) 86 mm[Hg] 01/14/2025 08:16 PM Temperature (8310-5) 98.2 [degF] Oxygen Saturation (40637-6) 95 % Respiratory Rate (9279-1) 20 /min Heart Rate (8867-4) 82 /min Blood Pressure Systolic (8480-6) 145 mm[Hg] Blood Pressure Diastolic (8462-4) 66 mm[Hg] Social History No smoking Hx information available Encounters Type CPT Code Date Location Provider Indication s encounter report 07/04/2022 02:0 7 PM - 04/22/2024 03:25 PM Keo Delvalle DO 01 encounter report 07/04/2022 02:0 7 PM - 05/25/2024 07:57 PM Keo Delvalle DO 01 Advance Directives Directive Description Verification Date Supporting Document(s) Other Directive
--- OUTSIDE RECORDS SUMMARY | 2025-01-15 09:52 | XMS_ITS | CCD ---
Author Name Interface, [id number] galdino Address [address] [place] [address] [facility] ecialGISSELL solorzano Address [address] [place] [address] Care Team Providers Care Surgical Tech Name Role Phone Jovon COSTA, Kip Angulo Unavailable Unavailable Reason for Visit Social History
[2025-01-15 10:30] VITALS: PULSE 69; O2SAT 99
[2025-01-15 10:42] VITALS: RESP 19
[2025-01-15] MEDS: oxyCODONE-APAP 5-325 mg Tablet 2 TAB PO (10:42)
--- NOTE | 2025-01-15 10:42 | ED_ITS ---
HPI - Extremity Problem General: Chief complaint: Extremity Injury, Upper Stated complaint: fall - left shoulder/tailbone pain Time Seen by Provider: 01/15/25 09:47 History of Present Illness: 79-year-old female presents emergency ro om after a fall ground-level mechanical fall at home. She complaining of pain in her tailbone as well as in her left shoulder. She has a history of end-stage renal disease and is on dialysis has a shunt in her left arm. She did not strike her head she did not lose consciousness. Associated symptoms: Deny chest pain, fever(s) or rash Related Data Home Medications ?Medication ?Instructions ?Recorded ?Confirmed bimatoprost 0.01 % eye drops 1 drp ophthalmic (eye) BE DTIME 04/07/22 01/15/25 (Pepe) carbidopa 25 mg-levodopa 100 mg 1 tab PO TID 04/07/22 01/15/25 tablet furosemide 40 mg tablet (Lasix) 40 mg PO BID 04/07/22 01/15/25 insulin aspart U-100 100 unit/mL See Rx Instructions . Route .COMPLEX 04/07/22 01/15/25 (3 mL) subcutaneous pen (Novolog FlexPen U-100 Insulin aspart) loperamide 2 mg tablet (Imodium 2 mg PO Q6H PRN Loose Stool 04/07/22 01/15/25 A-D) metolazone 5 mg tablet 5 mg PO QAM 04/07/22 5 ondansetron HCl 4 mg tablet 4 mg PO Q6H PRN Nausea And Vomiting 04/07/22 01/15/25 simvastatin 40 mg tablet 40 mg PO BEDTIME@21 04/07/22 01/15/25 bisacodyl 10 mg rectal suppository 10 mg RI DAILY PRN Constipation 07/14/22 01/15/25 alprazolam 0.5 mg tablet (Xanax) 0.5 mg PO TID PRN Anx iety 04/29/23 01/15/25 vitamin A and D See Rx Instructions .Route . COMPLEX 04/29/23 01/15/25 fluticasone propionate 50 1 mcg intranasal BID 4 01/15/25 mcg/actuation nasal spray,suspension (Flonase Allergy Relief) levothyroxine 150 mcg tablet 150 mcg PO DAILY 03/19/24 01/15/25 trihexyphenidyl 2 mg tablet 2 mg PO TID 03/19/2401/15 white petrolatum (Vaseline jelly, 1 applic topical PRN 03/19/24 01/15/25 topical) apixaban 5 mg tablet (Eliquis) 5 mg PO BID 03/30/24 acetaminophen 325 mg tablet 650 mg PO Q6H 04/22/24 gabapentin 100 mg capsule 200 mg PO QPM 04/22/2401/15 omeprazole 20 mg capsule,delayed 20 mg PO BID 04/22/24 01/15/25 release azelastine 137 mcg (0.1 %) nasal 2 spray intranasal BI D 09/29/24 01/15/25 spray diphenhydramine HCl 25 mg capsule 25 mg PO TID PRN Itc singh 09/29/24 01/15/25 nystatin 100,000 unit/gram topical 1 applic topical BI D 09/29/24 01/15/25 powder oxycodone 5 mg tablet 5 mg PO Q6H PRN Pain 5 01/15/25 tizanidine 4 mg tablet 4 mg PO Q8H PRN Muscle Spasm 09/29/24 01/15/25 fluoxetine 40 mg capsule 40 mg PO DAILY 01/15/2512/29 insulin glargine 100 unit/mL (3 8 unit SUBCUT BEDTIME 01/15/25 01/15/25 mL) subcutaneous pen (Lantus Solostar U-100 Insulin) Previous Rx's ?Medication ?Instructions ?Recorded 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 ea 11/21/22 CAM walker #1 ea 06/30/24 Allergies Allergy/AdvReac Type Severity Reaction Status Date / Time morphine Allergy Unknown Verified 01/15/25 09:53 sulfamethoxazole (From Allergy Rash Verified 01/06/25 14:24 Septra) trimethoprim (From Septra) Allergy Rash Verified 01/06/25 14:24 pregabalin (From Lyrica) AdvReac Loopy/Unste Verified 01/06/25 14:24 anoop Review of Systems Const: Denies: fever(s) or chills Card: Denies: chest pain Resp: Denies: dyspnea GI: Denies: abdominal pain : Denies: dysuria, urinary frequency or urinary urgency Musc: Denies: neck pain or back pain Skin/Breast: Denies: rash PFSH ED PFSH: Medical History Diabetic ulcer of left foot Gangrene of left foot Goals of care, counseling/discussion CAD (coronary artery disease) Pulmonary hypertension Elevated troponin History of pulmonary embolism Chest pain 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 Charcot's joint of left foot MRSA bacteremia ESRD (end stage renal disease) ESRD (end stage renal disease) Chronic kidney disease Hyponatremia Influenza A Pneumonia Iron deficiency anemia Acute exacerbation of CHF (congestive heart failure) Bilateral lower extremity edema Neuropathy Chronic renal insufficiency Post laminectomy syndrome Lumbar disc disease with radiculopathy Sciatica associated with disorder of lumbosacral spine Uncontrolled insulin dependent diabetes mellitus Diabetes mellitus type 2, insulin dependent COPD (chronic obstructive pulmonary disease) Hyperlipemia Vitamin D deficiency Parkinson disease Chronic insomnia Stage 4 chronic renal impairment associated with type 2 diabetes mellitus History of CVA (cerebrovascular accident) Anemia in chronic illness Hypertension Fibromyalgia Diabetic neuropathy Hypothyroidism Surgical History History of left below knee amputation S/P dialysis catheter insertion History of colonoscopy 2019 Hx of hysterectomy Hx of cholecystectomy Hx of foot surgery Family History Father CAD (coronary artery disease) Mother CAD (coronary artery disease) Diabetes Grandfather CAD (coronary artery disease) Diabetes Social History Smoking and tobacco/nicotine status: former use of tobacco/nicotine Quit status (tobacco/nicotine): has quit using Former quit date comment: Quit 30 years ago or more Second hand smoke exposure: No Alcohol intake: current Alcohol intake frequency: holidays/special occasions only Alcohol type: hard liquor Substance/Drug Use: never Additional social history: In past she has been intermittently full code or DNR depending on the admission. Patient is accompanied by her daughters Cyndy who is power of litigation attorney associate and Nereyda. Patient wants full CODE STATUS as discussed with Philip Foster MD on 09/29/2024 Physical Exam Const: GENERAL APPEARANCE: cooperative ORIENTATION/CONSCIOUSNESS: Yes awake, Yes oriented to person, Yes oriented to place and Yes oriented to time HENMT: COMMON NORMALS: normocephalic, atraumatic and hearing grossly normal bilaterally HEAD & SCALP: normocephalic and atraumatic Resp: COMMON NORMALS: normal respiratory effort, No retractions, No use of accessory muscles and clear to auscultation bilaterally AUSCULTATION: clear to auscultation bilaterally Cardio: COMMON NORMALS: regular rate, regular rhythm and No murmurs present (Cardio) RATE: regular rate RHYTHM: regular rhythm GI: COMMON NORMALS: Soft to palpation and No hepatosplenomegaly present AUSCULTATION: Yes normoactive bowel sounds PALPATION: Yes Soft to palpation, No Tenderness to palpation present (GI), No Guarding due to palpation present (GI) and Yes No hepatosplenomegaly present Extremity: COMMON NORMALS: normal to inspection, capillary refill normal, no clubbing, cyanosis or edema, no calf tenderness and no pedal edema Neuro: SENSORIUM/ORIENTATION: Yes oriented to person, Yes oriented to place and Yes oriented to time Skin: COMMON NORMALS: no rashes or lesions noted GENERAL SKIN EXAM: no rashes or lesions noted Course Vital Signs: Vital signs: Vital Signs Temperature 98.1 F 01/15/25 09:50 Pulse Rate 118 H 01/15/25 12:03 Respiratory Rate 18 01/15/25 12:03 Blood Pressure 176/94 01/15/25 12:03 Pulse Oximetry 95 01/15/25 12:03 Oxygen Delivery Me thod Room Air 01/15/25 10:30 MDM - Extremity (Nontraumatic) Medical Decision Making Patient has left clavicle fracture sacrum and coccyx appear normal on plain films. Discharge patient home with an arm sling but have follow-up with orthopedics. She has oxycodone as needed at the skilled nursing for pain Medical Records I reviewed the patient's medical records. Lab Data Radiology Impressions Sacrum and Coccyx X-Ray 01/15/25 09:47 IMPRESSION: Limited exam with no abnormality as above. Shoulder X-Ray 01/15/25 11:03 IMPRESSION: No acute abnormality of the shoulder joint. Clavicle fracture as previously noted. All radiology interpretation(s) finalized by discharge Discharge Plan Discharge Patient Disposition: Home Clinical Impression: Fall Clavicle fracture, shaft Qualifiers: Encounter type: initial encounter Fracture type: closed Fracture alignment: displaced Laterality: left Qualified Code(s): S42.022A - Displaced fracture of shaft of left clavicle, initial encounter for closed fracture Condition: Stable Prescriptions: No Action (DME) Stump Bricklayer Helper See Rx Instructions .Route .MEDSUPPLY Qty: 1 0RF Rx Instructions: As directed (DME) CAM walker See Rx Instructions .Route .MEDSUPPLY Qty: 1 0RF Rx Instructions: As directed bisacodyl 10 mg Suppository 10 mg RI DAILY PRN (Reason: Constipation) vitamin A and D Ointment See Rx Instructions .ROUTE .COMPLEX Rx Instructions: APPLY TOPICALLY AEVERY SHIFT TO BLATERAL BUTTUCK: CLEANSE WITH SOAP AND WATER AND APPLY A AND D OINTMENT FOR SHEER PREVENTION. alprazolam [Xanax] 0.5 mg Tablet 0.5 mg PO TID PRN (Reason: Anxiety) levothyroxine 150 mcg Tablet 150 mcg PO DAILY trihexyphenidyl 2 mg Tablet 2 mg PO TID Rx Instructions: give with food (meal/snack) fluticasone propionate [Flonase Allergy Relief] 50 mcg/actuation Terril,Suspension 1 mcg INTRANASAL BID white petrolatum [Vaseline] Gel 1 applic TOPICAL PRN Rx Instructions: apply to buttocks to prevent shearing Eliquis 5 mg Tablet 5 mg PO BID diphenhydramine HCl 25 mg Capsule 25 mg PO TID PRN (Reason: Itching) azelastine 137 mcg (0.1 %) Terril,Non-Aerosol 2 spray INTRANASAL BID Rx Instructions: administer into each nostril tizanidine 4 mg Tablet 4 mg PO Q8H PRN (Reason: Muscle Spasm) nystatin 100,000 unit/gram Powder 1 applic TOPICAL BID Rx Instructions: to groin oxycodone 5 mg Tablet 5 mg PO Q6H PRN (Reason: Pain) fluoxetine 40 mg capsule 40 mg PO DAILY insulin glargine [Lantus Solostar U-100 Insulin] 100 unit/mL (3 mL) insulin pen 8 unit SUBCUT BEDTIME furosemide [Lasix] 40 mg Tablet 40 mg PO BID ondansetron HCl 4 mg Tablet 4 mg PO Q6H PRN (Reason: Nausea And Vomiting) loperamide [Imodium A-D] 2 mg Tablet 2 mg PO Q6H PRN (Reason: Loose Stool) metolazone 5 mg Tablet 5 mg PO QAM simvastatin 40 mg Tablet 40 mg PO BEDTIME@21 carbidopa-levodopa 25-100 mg Tablet 1 tab PO TID insulin aspart U-100 [Novolog FlexPen U-100 Insulin] 100 unit/mL (3 mL) Insulin Pen See Rx Instructions .ROUTE .COMPLEX Rx Instructions: sliding scale three times a day. IF BS LESS THAN 60, CALL MD. FOR BS 201-250=2 units 251-300=4 units 301-350=6 units 351-400=8 units call provider for bs <60 or >400 Lumigan 0.01 % Drops 1 drp OPHTHALMIC (EYE) BEDTIME acetaminophen 325 mg Tablet 650 mg PO Q6H omeprazole 20 mg Capsule,Delayed Release(Dr/Ec) 20 mg PO BID gabapentin 100 mg capsule 200 mg PO QPM Rx Instructions: Dose change only Discharge Orders: Discharge ED (Routine); Ordered 01/15/25 Ordered By: Federico Mccarty Referrals: Keo Delvalle DO [Primary Care Provider, Internal Medicine] Discharge Diet: Usual diet Discharge Activity: Limit activity as instructed Patient Instructions: Opioid Safety, Pain Management, Patient Portal & Fang Instructions Activity Restrictions/Additional Instructions: Thank you for choosing [facility] for your healthcare needs today. It is very important that you follow up as instructed or that you return to the Emergency Department should you have concerns or if your condition changes or worsens in any way. Emergency department visits are focused on emergent conditions, in some cases you may require further evaluation on an outpatient basis. You are seen emergency room after a fall. You have a left clavicle fracture we will set you up to follow-up with the orthopedic clinic. In the meantime you should not use your left arm for any activities. It is safe to continue using your used to be shunt for dialysis. Use the oxycodone prescribed previously for pain. If you do need more of it contact your primary care doctor to refill. (Please note that included in your discharge packet is information concerning opioid safety and pain management. 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
--- NOTE | 2025-01-15 11:03 | XR_ITS ---
WS: [id number] XR shoulder LT 1V 00169 REASON FOR EXAM: LT. SHOULDER PAIN FINDINGS: The glenoid articular surface is flattened. There is deformity of the humeral head which appears to be due to an old healed fracture. Humeral glenoid articulation appears intact. XR/XR shoulder LT 1V 31209 IMPRESSION: No acute abnormality of the shoulder joint. Clavicle fracture as previously noted.
[2025-01-15 12:03] VITALS: BP 176/94; PULSE 118; RESP 18; O2SAT 95
--- NOTE | 2025-01-16 07:01 | DCPLANNER ---
messaged ortho for er f/u
== END 2025-01-15 12:19 | disposition home or self-care (01) ==
PROVIDERS: Emergency Provider Family Medicine; PCP Internal Medicine
DX: S42.022A Displaced fracture of shaft of left clavicle, initial encounter for closed fracture (principal); Z79.01 Long term (current) use of anticoagulants; Z79.4 Long term (current) use of insulin; Z87.891 Personal history of nicotine dependence; I25.10 Atherosclerotic heart disease of native coronary artery without angina pectoris; J44.9 Chronic obstructive pulmonary disease, unspecified; E78.5 Hyperlipidemia, unspecified; E11.22 Type 2 diabetes mellitus with diabetic chronic kidney disease; I13.2 Hypertensive heart and chronic kidney disease with heart failure and with stage 5 chronic kidney disease, or end stage renal disease; I50.9 Heart failure, unspecified; N18.6 End stage renal disease; Z86.73 Personal history of transient ischemic attack (TIA), and cerebral infarction without residual deficits; W18.30XA Fall on same level, unspecified, initial encounter
CPT/HCPCS: 72220; 73020; 73030; 99284; J9999

== ENCOUNTER → 2025-01-19 14:42 | Outpatient (BNVA) | payer MEDICARE, OTHER, MEDICAID, SELFPAY | PROVIDERS: PCP Internal Medicine; Visit Provider Nurse Practitioner | DX: S42.022A Displaced fracture of shaft of left clavicle, initial encounter for closed fracture (principal); W19.XXXA Unspecified fall, initial encounter | CPT/HCPCS: 99204 ==

== ENCOUNTER 2025-01-20 07:01 | Day surgery (SDC) | payer MEDICARE, OTHER, MEDICAID, SELFPAY ==
[2025-01-20] VITALS (10 sets, daily range): BP systolic 114–177; BP diastolic 65–107; PULSE 91–111; RESP 14–24; TEMP 36.7–37.2; O2SAT 93–100; BMI 27.8
[2025-01-20 08:11] LABS: Hematocrit 30.1 % (36-47); Hemoglobin 9.30 g/dL (11.27-16.99); Mean Corpuscular HGB Conc 30.9 g/dL (30-55); Mean Corpuscular Hemoglobin 28.4 pg (27-33); Mean Corpuscular Volume 91.8 fl (85-98); Nucleated Red Blood Cells % 0 %; Platelet Count 290 10^3/cmm (157-399); Red Blood Count 3.28 10^6/uL (3.85-5.65); White Blood Count 14.19 10^3/uL (3.29-11.43)
[2025-01-20 08:27] LABS: Anion Gap 18.3 (5-19); Blood Urea Nitrogen 25 mg/dL (8-23); Calcium 9.7 mg/dL (8.5-10.5); Carbon Dioxide 29 mmol/L (22-29); Chloride 95 mmol/L (98-107); Creatinine Clr Calc Pharmacy 17.8120; Glucose 142 mg/dL (65-115); Osmolality Calculated 293 mOsm/kg (285-295); Potassium 4.3 mmol/L (3.5-5.1); Sodium 138 mmol/L (136-145)
--- NOTE | 2025-01-20 08:50 | ANES.PREANE2 ---
Pre-Anesthetic Assessment Height/Weight: Height 1.7 m Weight 80.739 kg Temp Pulse Resp BP Pulse Ox O2 Del Method 98.2 F 91 18 114/65 96 Room Air 01/20/25 07:27 01/20/25 07:27 01/20/25 07:27 01/20/25 07:27 01/20/25 07:27 01/20/25 07:27 Operation Date: 01/20/25 08:40 Proposed Procedures p ORIF Clavicle(Left) - Crystal Steiner MD Familial anesthetic complications: None Was Beta Akira taken within 24 hours: N/A Was Clonidine taken within 24 hours: N/A Last intake: Intake Last Liquid Date 01/19/25 Last Liquid Time 23:59 Last Solid Date 01/19/25 Last Solid Time 23:59 Social No alcohol and No tobacco Exam alert, oriented x 3, clear to auscultation bilaterally and regular rate & rhythm Airway Mallampati: Class II Dentition: full Pulmonary Chronic Obstructive Pulmonary Disease CV/HEM Hypertension Chronic Renal Failure Anesthetic Plan ASA status: 4 Anesthesia: General and Regional (specify below) Risk of > 500 ml blood loss (7ml/kg in children): No Medications/Allergies Home Medications ?Medication ?Instructions ?Recorded ?Confirmed ?Last Taken ?Type bimatoprost 0.01 % eye drops 1 drp ophthalmic (eye) BEDTIME 04/07/22 01/19/25 01/14/25 18:25 History (Lumigan) carbidopa 25 mg-levodopa 100 mg 1 tab PO TID 04/07/22 01/19/25 01/19/25 History tablet furosemide 40 mg tablet (Lasix) 40 mg PO BID 04/07/22 01/19/25 01/19/25 History insulin aspart U-100 100 unit/mL See Rx Instructions .Route .COMPLEX 04/07/22 01/19/25 01/19/25 History (3 mL) subcutaneous pen (Novolog FlexPen U-100 Insulin aspart) loperamide 2 mg tablet (Imodium 2 mg PO Q6H PRN Loose Stool 04/07/22 01/19/25 01/14/25 04:25 History A-D) metolazone 5 mg tablet 5 mg PO QAM 04/07/22 01/19/25 01/19/25 History ondansetron HCl 4 mg tablet 4 mg PO Q6H PRN Nausea And Vomiting 04/07/22 01/19/25 01/04/25 14:35 History simvastatin 40 mg tablet 40 mg PO BEDTIME@21 04/07/22 01/19/25 01/19/25 History bisacodyl 10 mg rectal suppository 10 mg SC DAILY PRN Constipation 07/14/22 01/19/25 03/13/24 History 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 #1 ea 11/21/22 01/19/25 Unknown Rx alprazolam 0.5 mg tablet (Xanax) 0.5 mg PO TID PRN Anxiety 04/29/23 01/19/25 01/19/25 History vitamin A and D 1 applic topical DIRECTED 04/29/23 01/19/25 09/28/24 18:10 History fluticasone propionate 50 1 mcg intranasal BID 03/19/24 01/19/25 01/19/25 History mcg/actuation nasal spray,suspension (Flonase Allergy Relief) levothyroxine 150 mcg tablet 150 mcg PO DAILY 03/19/24 01/19/25 01/19/25 History trihexyphenidyl 2 mg tablet 2 mg PO TID 03/19/24 01/19/25 01/19/25 History white petrolatum (Vaseline jelly, 1 applic topical PRN 03/19/24 01/19/25 12/15/24 23:25 History topical) apixaban 5 mg tablet (Eliquis) 5 mg PO BID 03/30/24 01/19/25 01/19/25 History acetaminophen 325 mg tablet 650 mg PO Q6H 04/22/24 01/20/25 01/16/25 History gabapentin 100 mg capsule 200 mg PO QPM 04/22/24 01/19/25 01/19/25 History omeprazole 20 mg capsule,delayed 20 mg PO BID 04/22/24 01/19/25 01/19/25 History release CAM walker #1 ea 06/30/24 01/19/25 Unknown Rx azelastine 137 mcg (0.1 %) nasal 2 spray intranasal BID 09/29/24 01/19/25 01/19/25 History spray diphenhydramine HCl 25 mg capsule 25 mg PO TID PRN Itching 06/02/25 09/22/25 09/16/25 06:15 History nystatin 100,000 unit/gram topical 1 applic topical BID 09/29/24 01/19/25 09/28/24 18:10 History powder oxycodone 5 mg tablet 10 mg PO Q6H PRN Pain 09/29/24 01/19/25 01/20/25 History tizanidine 4 mg tablet 4 mg PO Q8H PRN Muscle Spasm 09/29/24 01/19/25 01/16/25 History fluoxetine 40 mg capsule 40 mg PO DAILY 01/15/25 01/19/25 01/15/25 06:20 History insulin glargine 100 unit/mL (3 8 unit SUBCUT BEDTIME 01/15/25 01/19/25 01/19/25 History mL) subcutaneous pen (Lantus Solostar U-100 Insulin) Allergies Allergy/AdvReac Type Severity Reaction Status Date / Time morphine Allergy Unknown Verified 01/19/25 14:44 sulfamethoxazole (From Allergy Rash Verified 01/19/25 14:44 Septra) trimethoprim (From Septra) Allergy Rash Verified 01/19/25 14:44 pregabalin (From Lyrica) AdvReac Loopy/Unste Verified 01/19/25 14:44 anoop Current Medications Generic Name Dose Route Start Last Admin Trade Name Freq PRN Reason Stop Dose Admin Sodium Chloride 1,000 mls @ 30 mls/hr 01/20/25 07:15 01/20/25 08:02 Sodium Chloride 0.9% IV 01/21/25 07:14 30 mls/hr .Q24H BILLIE Administration PFSH Anesthesia Medical History (Updated 01/20/25 @ 09:55 by Crystal Steiner MD) Diabetic ulcer of left foot Gangrene of left foot Goals of care, counseling/discussion CAD (coronary artery disease) Pulmonary hypertension Elevated troponin History of pulmonary embolism Chest pain 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 Charcot's joint of left foot MRSA bacteremia ESRD (end stage renal disease) ESRD (end stage renal disease) Chronic kidney disease Hyponatremia Influenza A Pneumonia Iron deficiency anemia Acute exacerbation of CHF (congestive heart failure) Bilateral lower extremity edema Neuropathy Chronic renal insufficiency Post laminectomy syndrome Lumbar disc disease with radiculopathy Sciatica associated with disorder of lumbosacral spine Uncontrolled insulin dependent diabetes mellitus Diabetes mellitus type 2, insulin dependent COPD (chronic obstructive pulmonary disease) Hyperlipemia Vitamin D deficiency Parkinson disease Chronic insomnia Stage 4 chronic renal impairment associated with type 2 diabetes mellitus History of CVA (cerebrovascular accident) Anemia in chronic illness Hypertension Fibromyalgia Diabetic neuropathy Hypothyroidism Surgical History History of left below knee amputation S/P dialysis catheter insertion History of colonoscopy 2020 Hx of hysterectomy Hx of cholecystectomy Hx of foot surgery Family History Father CAD (coronary artery disease) Mother CAD (coronary artery disease) Diabetes Grandfather CAD (coronary artery disease) Diabetes Social History Smoking and tobacco/nicotine status: never used tobacco/nicotine Quit status (tobacco/nicotine): has quit using Former quit date comment: Quit 30 years ago or more Second hand smoke exposure: No Alcohol intake: current Alcohol intake frequency: holidays/special occasions only Alcohol type: hard liquor Substance/Drug Use: never Additional social history: In past she has been intermittently full code or DNR depending on the admission. Patient is accompanied by her daughters Cyndy who is power of sports attorney and Nereyda. Patient wants full CODE STATUS as discussed with Philip Foster MD on 09/29/2024 Data Anesthesia 01/20/25 08:00 01/20/25 08:00 Short CBC 01/20/25 Range/Units 08:00 WBC 14.19 H (3.29-11.43) 10^3/uL Hgb 9.30 L (11.27-16.99) g/dL Hct 30.1 L (36-47) % MCV 91.8 (85-98) fl Plt Count 290 (157-399) 10^3/cmm Neut % (Auto) 84.8 % Neut # (Auto) 12.04 H (1.8-7.7) 10^3/uL BMP 01/20/25 08:00 Sodium 138 Potassium 4.3 Chloride 95 L Carbon Dioxide 29 BUN 25 H Creatinine 2.8 H Glucose 142 H Calcium 9.7 Cardiac Studies: Echocardiogram 10/05/24 Echocardiogram Limited Views 05/14/22 Sestamibi Stress Test (Cardiology) 05/15/22
--- NOTE | 2025-01-20 09:03 | ANES.PROC ---
Anesthesia Procedures Procedure/Date: 01/20/25 ISB Nerve Block ^: Nerve Block 1: Main Anesthesia: general anesthesia Time Out Performed: Yes Consent: requested by attending/covering physician, from patient, risks and benefits reviewed and patient agrees to proceed Laterality: Left Nerve block location: interscalene Anesthesia monitors applied: pulse oximetry, EKG, BP cuff and oxygen Nerve block position: semi sitting Anesthetic Used: ropivicaine 0.5% (0.25% ) Amount of anesthesia used (mL): 20 Ultrasound used to: recognize landmarks, visualize and ID brachial plexus and visualize and ID interscalene groove Nerve Stimulator Used?: Yes Interscalene/Femoral BLK: 2 stimuplex 22 g needle used for position and inplane approach, visualize local anesthetic spread and no vascular puncture identified Injection: neg aspiration of heme and paresthesia +/- Patient Tolerated Procedure: well and no complications Complications: none
[2025-01-20] MEDS: ceFAZolin 2,000 mg SDV 2000 MG IVP (09:42)
--- NOTE | 2025-01-20 09:54 | P.HPUD_ITS ---
Surgery/Procedure H&P Update DATE OF PROCEDURE: January 20, 2025 DATE H&P PERFORMED: 01/19/25 H&P UPDATE INFORMATION: I have reviewed H&P completed within last 30 days, I have examined patient prior to procedure, No changes to prior documentation, H&P is in [facility] EMR on date indicated and Risks and benefits of the procedure reviewed PLANNED PROCEDURE: Operation Date: 01/20/25 08:40 Proposed Procedures p ORIF Clavicle(Left) - Crystal Steiner MD Related Problem List Diagnoses 1. Closed displaced fracture of shaft of left clavicle, initial encounter: Qualifiers: Encounter type: initial encounter Fracture type: closed Fracture alignment: displaced Laterality: left
[2025-01-20] MEDS: ceFAZolin 1,000 mg SDV 1000 MG IRRIGATION (10:49)
[2025-01-20] MEDS: fentaNYL 50 mcg/mL INJ 2mL IVP ×2 (11:52→12:02)
--- NOTE | 2025-01-20 11:53 | P.OP_ITS ---
Operative Report Date of procedure: January 20, 2025 Pre-op diagnosis: Left midshaft 100% displaced and shortened clavicle fracture Post-op diagnosis: Left midshaft 100% displaced and shortened clavicle fracture Post-op findings: Comminution and horizontal splitting of the clavicle in addition to the transverse portion of the clavicle fracture Procedure done: Open reduction internal fixation left midshaft clavicle fracture Implants: The Erin 8 hole superior midshaft clavicle plate with a combination of locking and nonlocking screws Specimens removed/disposition: None Pathology: None Surgeon: Crystal Steiner MD Combination Presser: Ambreen Martinez, nurse practitioner, who services were required for positioning, retraction, fracture reduction and retention, and closure Anesthesia: General (Intubated, ASA 4) Estimated blood loss (mL): 10 IV fluids (mL): 300 Urine output (mL): 0 (No Puckett) Complications: None Findings: As noted above Condition: stable Disposition: PACU (Then return to same-day surgery for discharge to home) Brief History: This 79-year-old woman presented to the office following diagnosis of a left clavicle fracture. By report, the patient was using her walker to go to the restroom, she lost her balance and fell over backwards suffering the above fracture. Her injury date was January 15, 2025. The patient presented to the clinic using a motorized wheelchair for mobility. She presented with her daughters. The patient is a full-time resident at [facility] nursing facility and this is where her fall happened. After discussion in the office, the patient wished to proceed with operative intervention and fixation of this fracture. Risks and complications of surgery were discussed with the patient and consents were signed. Further opportunity for questioning was given on the day of surgery. Procedure: The patient was brought to the operating theater and underwent general intubated anesthesia, ASA 4. The patient was placed in a beachchair position and subsequently the right upper extremity was prepped and draped in the usual fashion utilizing DuraPrep. Fluoroscopy was used to evaluate the fracture throughout the surgical procedure. A surgical pause was performed prior to commencement of the surgical procedure. At the time of the surgical pause, we confirmed the site and side of surgery as well as administration of appropriate preoperative antibiotics Ancef 2 g. Following the surgical pause, an incision was following fluoroscopic evaluation along the clavicle. The incision was extended cephalad and caudad as necessary to address the fracture and placed the clavicular plate. Plate was chosen prior to incision by the use of fluoroscopy as well; however, the plan was changed after further anatomy of the fracture was realized. Dissection continued through skin and soft tissues using a scalpel. Hemostasis was obtained using electrocautery. The soft tissues were elevated off of the fracture fragments. There was comminution as well as a horizontal component to the transverse fracture fragment. There was an inferior fragment as well. The fracture was able to be held was appropriate instruments and the plate was placed in position. The plate was then held in position with clamps and with 2 K wires. This position was evaluated. It was found that we had appropriate position of the plate and reduction of the fracture. Rather than the planned superior clavicle plate, due to the comminution, fracture pattern, and nature of the fracture, plan for the plate changed to an 8 hole superior midshaft plate so that we could get better purchase in the most lateral fragment. At this point, using a combination of locked and nonlocking screws, we were able to attach the plate to the clavicle. Fluoroscopy was again utilized to evaluate screw length and appropriate position of the plate and fracture. At that point, being satisfied that the fracture was essentially anatomic, attention was directed to closure. The wound was irrigated and closure was accomplished with 0 Vicryl in the fascial tissues closing these over the clavicle. 2-0 Monocryl was used to close the subcutaneous tissues followed by 4-0 Monocryl subcuticular closure. This was followed by Dermabond, Steri-Strips, and OpSite. The patient was placed in a shoulder immobilizer and was returned to the recovery room in satisfactory condition. The patient will be discharged to home, [facility] where she resides full-time, to follow-up in the office as scheduled. There were no complications and no specimens. Related Problem List Diagnoses 1. Closed displaced fracture of shaft of left clavicle, initial encounter:
--- NOTE | 2025-01-20 12:23 | XR_ITS ---
WS: [id number] Exam: [place] [id number] Date/Time of Exam: 01/20/2025 12:23 PM Reason For Exam: or pic, clavicle orif DLP Intraoperative C-arm images of the LEFT clavicle are submitted. Images depict plate and screw fixation involving a midshaft fracture of the LEFT clavicle. Alignment appears to be satisfactory for healing.
--- NOTE | 2025-01-20 14:20 | ANE.PACU2 ---
Inpatient post-anesthesia follow up: Airway intact: Yes Vital signs: Temperature 98.0 F Pulse Rate 107 Respiratory Rate 16 Blood Pressure 172/85 Pulse Oximetry 100 Oxygen Delivery Me thod Nasal Cannula Oxygen Flow Rate 2 Fraction of Inspir ed Oxygen Hydration adequate: Yes Nausea and vomiting: No Pain level: 1 Mental status: Baseline
== END 2025-01-20 14:21 | disposition home or self-care (01) ==
PROVIDERS: Anesthesiology; PCP Internal Medicine; Visit Provider Specialist
PROC: (CPT 23515; principal; 2025-01-20 08:20)
DX: S42.022A Displaced fracture of shaft of left clavicle, initial encounter for closed fracture (principal); W18.39XA Other fall on same level, initial encounter; J44.9 Chronic obstructive pulmonary disease, unspecified; E11.22 Type 2 diabetes mellitus with diabetic chronic kidney disease; I13.2 Hypertensive heart and chronic kidney disease with heart failure and with stage 5 chronic kidney disease, or end stage renal disease; N18.6 End stage renal disease; I25.10 Atherosclerotic heart disease of native coronary artery without angina pectoris; Z86.711 Personal history of pulmonary embolism; Z86.14 Personal history of Methicillin resistant Staphylococcus aureus infection; D50.9 Iron deficiency anemia, unspecified; E11.40 Type 2 diabetes mellitus with diabetic neuropathy, unspecified; E78.5 Hyperlipidemia, unspecified; M79.7 Fibromyalgia; E03.9 Hypothyroidism, unspecified; Z87.891 Personal history of nicotine dependence; K21.9 Gastro-esophageal reflux disease without esophagitis; Z79.4 Long term (current) use of insulin
CPT/HCPCS: 23515; 36415; 36416; 73000; 76000; 80048; 82962; 85025; C1713; J0690; J1100; J2250; J2405; J2704; J2795; J3010; J3490; J7030; J9999

== ENCOUNTER → 2025-02-02 12:48 | Outpatient (BNVA) | payer MEDICARE, OTHER, MEDICAID, SELFPAY | PROVIDERS: PCP Internal Medicine; Visit Provider Nurse Practitioner | DX: Z98.890 Other specified postprocedural states (principal) | CPT/HCPCS: 73000; 99024 ==

== ENCOUNTER 2025-02-06 17:12 | Emergency (ER) | payer MEDICARE, OTHER, MEDICAID, SELFPAY ==
--- OUTSIDE RECORDS SUMMARY | 2025-02-06 17:22 | XMS_ITS | Continuity of Care Document ---
Author Organization [employer] ([facility]) Address [address] [place] [id number] Insurance Providers Payer Plan Claims Address Claims Phone Policy Number Group Number Relation Employer Guarantor Name Guarantor Guarantor Address Guarantor [place] [address], [facility] [place] [address] tel:[phone] [id number] [employer] E [employer] LIFE ALL [place] TR[place] RE FOR LIFE ALL [facility] [address], [place] [address] tel:[phone] MEDICA RE MEDIC ARE tel:[phone] [id number] Problems Condition ICD9 code ICD10 code SNOMED code Start Date End Date S tatus Body mass index (BMI) 34.0-34.9, adult Z68.34 05/14/2024 Active group home (current) use of anticoagulants Z79.01 04/02/2024 Active [...] Active Corns and callosities L84 10/27/2024 Active long term (current) use of inhaled steroids Z79.51 10/06/2024 Activ e Displaced fracture of shaft of left clavicle, subsequent encounter for fracture with routine healing S42.022D 01/15/2025 Active Muscle weakness (generalized) M62.81 02/03/2025 Active Difficulty in walking, not elsewhere classified R26.2 02/03/2025 Active Results Test Result Date/Time Value / Unit Interp. Refere nce Range Blood chemistry[[id number]] Glucose [Mass/volume] in Serum or Plasma [2345-7] 02/06/2025 10:15 AM 123 mg/dL N Blood chemistry[[id number]] Glucose [Mass/volume] in Serum or Plasma [2345-7] 02/05/2025 10:39 AM 128 mg/dL N Blood chemistry[[id number]] Glucose [Mass/volume] in Serum or Plasma [2345-7] 02/05/2025 05:12 PM 140 mg/dL N Blood chemistry[[id number]] Glucose [Mass/volume] in Serum or Plasma [2345-7] 02/05/2025 01:09 PM 129 mg/dL N Blood chemistry[[id number]] Glucose [Mass/volume] in Serum or Plasma [2345-7] 02/04/2025 04:13 PM 126 mg/dL N Blood chemistry[[id number]] Glucose [Mass/volume] in Serum or Plasma [2345-7] 02/04/2025 09:11 AM 152 mg/dL N Blood chemistry[[id number]] Glucose [Mass/volume] in Serum or Plasma [2345-7] 02/04/2025 10:13 AM 104 mg/dL N Blood chemistry[[id number]] Glucose [Mass/volume] in Serum or Plasma [2345-7] 02/03/2025 05:16 PM 115 mg/dL N Blood chemistry[[id number]] Glucose [Mass/volume] in Serum or Plasma [2345-7] 02/03/2025 09:28 AM 144 mg/dL N Blood chemistry[[id number]] Glucose [Mass/volume] in Serum or Plasma [2345-7] 02/03/2025 12:33 PM 117 mg/dL N Blood chemistry[[id number]] Glucose [Mass/volume] in Serum or Plasma [2345-7] 02/02/2025 10:52 AM 134 mg/dL N Blood chemistry[[id number]] Glucose [Mass/volume] in Serum or Plasma [2345-7] 02/02/2025 05:21 PM 107 mg/dL N Blood chemistry[[id number]] Glucose [Mass/volume] in Serum or Plasma [2345-7] 02/02/2025 09:56 AM 140 mg/dL N Blood chemistry[[id number]] Glucose [Mass/volume] in Serum or Plasma [2345-7] 02/01/2025 10:23 AM 92 mg/dL N Blood chemistry[[id number]] Glucose [Mass/volume] in Serum or Plasma [2345-7] 02/01/2025 05:20 PM 107 mg/dL N Blood chemistry[[id number]] Glucose [Mass/volume] in Serum or Plasma [2345-7] 02/01/2025 12:15 PM 101 mg/dL N Blood chemistry[[id number]] Glucose [Mass/volume] in Serum or Plasma [2345-7] 01/31/2025 11:30 AM 109 mg/dL N Blood chemistry[[id number]] Glucose [Mass/volume] in Serum or Plasma [2345-7] 01/31/2025 06:02 AM 107 mg/dL N Blood chemistry[[id number]] Glucose [Mass/volume] in Serum or Plasma [2345-7] 01/31/2025 12:47 PM 108 mg/dL N Blood chemistry[[id number]] Glucose [Mass/volume] in Serum or Plasma [2345-7] 01/30/2025 09:10 AM 131 mg/dL N Blood chemistry[[id number]] Glucose [Mass/volume] in Serum or Plasma [2345-7] 01/30/2025 06:17 AM 140 mg/dL N Blood chemistry[[id number]] Glucose [Mass/volume] in Serum or Plasma [2345-7] 01/30/2025 10:16 AM 103 mg/dL N Blood chemistry[[id number]] Glucose [Mass/volume] in Serum or Plasma [2345-7] 01/29/2025 05:21 PM 200 mg/dL N Blood chemistry[[id number]] Glucose [Mass/volume] in Serum or Plasma [2345-7] 01/29/2025 10:18 AM 104 mg/dL N Blood chemistry[[id number]] Glucose [Mass/volume] in Serum or Plasma [2345-7] 01/29/2025 11:51 AM 130 mg/dL N Blood chemistry[[id number]] Glucose [Mass/volume] in Serum or Plasma [2345-7] 01/28/2025 04:20 PM 147 mg/dL N Blood chemistry[[id number]] Glucose [Mass/volume] in Serum or Plasma [2345-7] 01/28/2025 09:39 AM 150 mg/dL N Blood chemistry[[id number]] Glucose [Mass/volume] in Serum or Plasma [2345-7] 01/28/2025 01:43 PM 159 mg/dL N Blood chemistry[[id number]] Glucose [Mass/volume] in Serum or Plasma [2345-7] 01/27/2025 10:40 AM 124 mg/dL N Blood chemistry[[id number]] Glucose [Mass/volume] in Serum or Plasma [2345-7] 01/27/2025 05:36 PM 145 mg/dL N Blood chemistry[[id number]] Glucose [Mass/volume] in Serum or Plasma [2345-7] 01/27/2025 12:21 PM 127 mg/dL N Blood chemistry[[id number]] Glucose [Mass/volume] in Serum or Plasma [2345-7] 01/26/2025 05:19 PM 160 mg/dL N Blood chemistry[[id number]] Glucose [Mass/volume] in Serum or Plasma [2345-7] 01/26/2025 10:14 AM 118 mg/dL N Blood chemistry[[id number]] Glucose [Mass/volume] in Serum or Plasma [2345-7] 01/26/2025 10:06 AM 158 mg/dL N Blood chemistry[[id number]] Glucose [Mass/volume] in Serum or Plasma [2345-7] 01/25/2025 03:41 PM 236 mg/dL N Blood chemistry[[id number]] Glucose [Mass/volume] in Serum or Plasma [2345-7] 01/25/2025 09:56 AM 155 mg/dL N Blood chemistry[[id number]] Glucose [Mass/volume] in Serum or Plasma [2345-7] 01/25/2025 01:00 PM 114 mg/dL N Blood chemistry[[id number]] Glucose [Mass/volume] in Serum or Plasma [2345-7] 01/24/2025 05:28 PM 155 mg/dL N Blood chemistry[[id number]] Glucose [Mass/volume] in Serum or Plasma [2345-7] 01/24/2025 09:00 AM 126 mg/dL N Blood chemistry[[id number]] Glucose [Mass/volume] in Serum or Plasma [2345-7] 01/24/2025 10:04 AM 128 mg/dL N Blood chemistry[[id number]] Glucose [Mass/volume] in Serum or Plasma [2345-7] 01/23/2025 10:59 AM 159 mg/dL N Blood chemistry[[id number]] Glucose [Mass/volume] in Serum or Plasma [2345-7] 01/23/2025 05:38 PM 110 mg/dL N Blood chemistry[[id number]] Glucose [Mass/volume] in Serum or Plasma [2345-7] 01/23/2025 10:31 AM 167 mg/dL N Blood chemistry[[id number]] Glucose [Mass/volume] in Serum or Plasma [2345-7] 01/22/2025 03:48 PM 197 mg/dL N Blood chemistry[[id number]] Glucose [Mass/volume] in Serum or Plasma [2345-7] 01/22/2025 09:14 AM 151 mg/dL N Blood chemistry[[id number]] Glucose [Mass/volume] in Serum or Plasma [2345-7] 01/22/2025 11:50 AM 173 mg/dL N Blood chemistry[[id number]] Glucose [Mass/volume] in Serum or Plasma [2345-7] 01/21/2025 04:09 PM 147 mg/dL N Blood chemistry[[id number]] Glucose [Mass/volume] in Serum or Plasma [2345-7] 01/21/2025 09:26 AM 164 mg/dL N Blood chemistry[[id number]] Glucose [Mass/volume] in Serum or Plasma [2345-7] 01/21/2025 12:24 PM 141 mg/dL N Blood chemistry[[id number]] Glucose [Mass/volume] in Serum or Plasma [2345-7] 01/20/2025 10:01 AM 247 mg/dL N Blood chemistry[[id number]] Glucose [Mass/volume] in Serum or Plasma [2345-7] 01/19/2025 10:39 AM 165 mg/dL N Blood chemistry[[id number]] Glucose [Mass/volume] in Serum or Plasma [2345-7] 01/19/2025 04:53 PM 185 mg/dL N Blood chemistry[[id number]] Glucose [Mass/volume] in Serum or Plasma [2345-7] 01/19/2025 10:09 AM 132 mg/dL N Blood chemistry[[id number]] Glucose [Mass/volume] in Serum or Plasma [2345-7] 01/18/2025 04:27 PM 124 mg/dL N Blood chemistry[[id number]] Glucose [Mass/volume] in Serum or Plasma [2345-7] 01/18/2025 09:58 AM 139 mg/dL N Blood chemistry[[id number]] Glucose [Mass/volume] in Serum or Plasma [2345-7] 01/18/2025 10:06 AM 110 mg/dL N Blood chemistry[[id number]] Glucose [Mass/volume] in Serum or Plasma [2345-7] 01/17/2025 05:47 PM 108 mg/dL N Blood chemistry[[id number]] Glucose [Mass/volume] in Serum or Plasma [2345-7] 01/17/2025 10:03 AM 130 mg/dL N Blood chemistry[[id number]] Glucose [Mass/volume] in Serum or Plasma [2345-7] 01/17/2025 10:26 AM 140 mg/dL N Blood chemistry[[id number]] Glucose [Mass/volume] in Serum or Plasma [2345-7] 01/16/2025 10:21 AM 136 mg/dL N Blood chemistry[[id number]] Glucose [Mass/volume] in Serum or Plasma [2345-7] 01/16/2025 04:15 PM 104 mg/dL N Blood chemistry[[id number]] Glucose [Mass/volume] in Serum or Plasma [2345-7] 01/16/2025 10:10 AM 126 mg/dL N Blood chemistry[[id number]] Glucose [Mass/volume] in Serum or Plasma [2345-7] 01/15/2025 10:00 AM 147 mg/dL N Blood chemistry[[id number]] Glucose [Mass/volume] in Serum or Plasma [2345-7] 01/15/2025 11:14 AM 102 mg/dL N Blood chemistry[[id number]] Glucose [Mass/volume] in Serum or Plasma [2345-7] 01/15/2025 10:04 AM 102 mg/dL N Blood chemistry[[id number]] Glucose [Mass/volume] in Serum or Plasma [2345-7] 01/14/2025 10:40 AM 128 mg/dL N Blood chemistry[[id number]] Glucose [Mass/volume] in Serum or Plasma [2345-7] 01/14/2025 10:01 AM 107 mg/dL N Blood chemistry[[id number]] Glucose [Mass/volume] in Serum or Plasma [2345-7] 01/13/2025 05:10 PM 99 mg/dL N Blood chemistry[[id number]] Glucose [Mass/volume] in Serum or Plasma [2345-7] 01/13/2025 09:26 AM 107 mg/dL N Blood chemistry[[id number]] Glucose [Mass/volume] in Serum or Plasma [2345-7] 01/13/2025 10:25 AM 80 mg/dL N Blood chemistry[[id number]] Glucose [Mass/volume] in Serum or Plasma [2345-7] 01/12/2025 04:47 PM 107 mg/dL N Blood chemistry[[id number]] Glucose [Mass/volume] in Serum or Plasma [2345-7] 01/12/2025 10:00 AM 101 mg/dL N Blood chemistry[[id number]] Glucose [Mass/volume] in Serum or Plasma [2345-7] 01/12/2025 09:47 AM 93 mg/dL N Blood chemistry[[id number]] Glucose [Mass/volume] in Serum or Plasma [2345-7] 01/11/2025 05:01 PM 127 mg/dL N Blood chemistry[[id number]] Glucose [Mass/volume] in Serum or Plasma [2345-7] 01/11/2025 09:30 AM 107 mg/dL N Blood chemistry[[id number]] Glucose [Mass/volume] in Serum or Plasma [2345-7] 01/11/2025 12:07 PM 102 mg/dL N Blood chemistry[[id number]] Glucose [Mass/volume] in Serum or Plasma [2345-7] 01/10/2025 05:55 PM 161 mg/dL N Blood chemistry[[id number]] Glucose [Mass/volume] in Serum or Plasma [2345-7] 01/10/2025 08:53 AM 125 mg/dL N Blood chemistry[[id number]] Glucose [Mass/volume] in Serum or Plasma [2345-7] 01/10/2025 12:46 PM 95 mg/dL N Blood chemistry[[id number]] Glucose [Mass/volume] in Serum or Plasma [2345-7] 01/09/2025 10:26 AM 139 mg/dL N Blood chemistry[[id number]] Glucose [Mass/volume] in Serum or Plasma [2345-7] 01/09/2025 05:08 PM 108 mg/dL N Blood chemistry[[id number]] Glucose [Mass/volume] in Serum or Plasma [2345-7] 01/09/2025 10:03 AM 129 mg/dL N Blood chemistry[[id number]] Glucose [Mass/volume] in Serum or Plasma [2345-7] 01/08/2025 05:50 PM 115 mg/dL N Blood chemistry[[id number]] Glucose [Mass/volume] in Serum or Plasma [2345-7] 01/08/2025 10:21 AM 97 mg/dL N Blood chemistry[[id number]] Glucose [Mass/volume] in Serum or Plasma [2345-7] 01/08/2025 12:14 PM 100 mg/dL N Blood chemistry[[id number]] Glucose [Mass/volume] in Serum or Plasma [2345-7] 01/07/2025 10:45 AM 125 mg/dL N Blood chemistry[[id number]] Glucose [Mass/volume] in Serum or Plasma [2345-7] 01/07/2025 05:26 PM 108 mg/dL N Blood chemistry[[id number]] Glucose [Mass/volume] in Serum or Plasma [2345-7] 01/07/2025 10:03 AM 120 mg/dL N Blood chemistry[[id number]] Glucose [Mass/volume] in Serum or Plasma [2345-7] 01/06/2025 04:46 PM 124 mg/dL N Blood chemistry[[id number]] Glucose [Mass/volume] in Serum or Plasma [2345-7] 01/06/2025 09:27 AM 143 mg/dL N Blood chemistry[[id number]] Glucose [Mass/volume] in Serum or Plasma [2345-7] 01/06/2025 11:32 AM 103 mg/dL N Blood chemistry[[id number]] Glucose [Mass/volume] in Serum or Plasma [2345-7] 01/05/2025 05:42 PM 107 mg/dL N Blood chemistry[[id number]] Glucose [Mass/volume] in Serum or Plasma [2345-7] 01/05/2025 09:56 AM 108 mg/dL N Blood chemistry[[id number]] Glucose [Mass/volume] in Serum or Plasma [2345-7] 01/05/2025 10:09 AM 87 mg/dL N Blood chemistry[[id number]] Glucose [Mass/volume] in Serum or Plasma [2345-7] 01/04/2025 04:58 PM 130 mg/dL N Blood chemistry[[id number]] Glucose [Mass/volume] in Serum or Plasma [2345-7] 01/04/2025 10:19 AM 109 mg/dL N Blood chemistry[[id number]] Glucose [Mass/volume] in Serum or Plasma [2345-7] 01/04/2025 10:00 AM 102 mg/dL N Blood chemistry[[id number]] Glucose [Mass/volume] in Serum or Plasma [2345-7] 01/03/2025 04:41 PM 114 mg/dL N Blood chemistry[[id number]] Glucose [Mass/volume] in Serum or Plasma [2345-7] 01/03/2025 10:37 AM 109 mg/dL N Blood chemistry[[id number]] Glucose [Mass/volume] in Serum or Plasma [2345-7] 01/03/2025 10:00 AM 118 mg/dL N Blood chemistry[[id number]] Glucose [Mass/volume] in Serum or Plasma [2345-7] 01/02/2025 10:21 AM 162 mg/dL N Blood chemistry[[id number]] Glucose [Mass/volume] in Serum or Plasma [2345-7] 01/02/2025 05:30 PM 97 mg/dL N Blood chemistry[[id number]] Glucose [Mass/volume] in Serum or Plasma [2345-7] 01/02/2025 10:12 AM 96 mg/dL N Blood chemistry[[id number]] Glucose [Mass/volume] in Serum or Plasma [2345-7] 01/01/2025 04:50 PM 107 mg/dL N Blood chemistry[[id number]] Glucose [Mass/volume] in Serum or Plasma [2345-7] 01/01/2025 10:04 AM 119 mg/dL N Blood chemistry[[id number]] Glucose [Mass/volume] in Serum or Plasma [2345-7] 01/01/2025 09:51 AM 108 mg/dL N Blood chemistry[[id number]] Glucose [Mass/volume] in Serum or Plasma [2345-7] 12/31/2024 08:58 AM 78 mg/dL N Blood chemistry[[id number]] Glucose [Mass/volume] in Serum or Plasma [2345-7] 12/31/2024 08:53 AM 138 mg/dL N Blood chemistry[[id number]] Glucose [Mass/volume] in Serum or Plasma [2345-7] 12/31/2024 06:32 AM 127 mg/dL N Blood chemistry[[id number]] Glucose [Mass/volume] in Serum or Plasma [2345-7] 12/30/2024 04:01 PM 232 mg/dL N Blood chemistry[[id number]] Glucose [Mass/volume] in Serum or Plasma [2345-7] 12/30/2024 10:48 AM 125 mg/dL N Blood chemistry[[id number]] Glucose [Mass/volume] in Serum or Plasma [2345-7] 12/30/2024 10:09 AM 101 mg/dL N Blood chemistry[[id number]] Glucose [Mass/volume] in Serum or Plasma [2345-7] 12/29/2024 05:18 PM 132 mg/dL N Blood chemistry[[id number]] Glucose [Mass/volume] in Serum or Plasma [2345-7] 12/29/2024 10:07 AM 81 mg/dL N Blood chemistry[[id number]] Glucose [Mass/volume] in Serum or Plasma [2345-7] 12/29/2024 09:31 AM 131 mg/dL N Blood chemistry[[id number]] Glucose [Mass/volume] in Serum or Plasma [2345-7] 12/28/2024 04:40 PM 140 mg/dL N Blood chemistry[[id number]] Glucose [Mass/volume] in Serum or Plasma [2345-7] 12/28/2024 12:40 PM 102 mg/dL N Blood chemistry[[id number]] Glucose [Mass/volume] in Serum or Plasma [2345-7] 12/28/2024 10:10 AM 117 mg/dL N Blood chemistry[[id number]] Glucose [Mass/volume] in Serum or Plasma [2345-7] 12/27/2024 05:07 PM 161 mg/dL N Blood chemistry[[id number]] Glucose [Mass/volume] in Serum or Plasma [2345-7] 12/27/2024 10:26 AM 103 mg/dL N Blood chemistry[[id number]] Glucose [Mass/volume] in Serum or Plasma [2345-7] 12/27/2024 08:33 AM 173 mg/dL N Blood chemistry[[id number]] Glucose [Mass/volume] in Serum or Plasma [2345-7] 12/26/2024 05:17 PM 116 mg/dL N Blood chemistry[[id number]] Glucose [Mass/volume] in Serum or Plasma [2345-7] 12/26/2024 10:36 AM 223 mg/dL N Blood chemistry[[id number]] Glucose [Mass/volume] in Serum or Plasma [2345-7] 12/26/2024 10:04 AM 97 mg/dL N Blood chemistry[[id number]] Glucose [Mass/volume] in Serum or Plasma [2345-7] 12/25/2024 04:25 PM 156 mg/dL N Blood chemistry[[id number]] Glucose [Mass/volume] in Serum or Plasma [2345-7] 12/25/2024 10:16 AM 102 mg/dL N Blood chemistry[[id number]] Glucose [Mass/volume] in Serum or Plasma [5-7] 12/25/2024 09:46 AM 128 mg/dL N Blood chemistry[[id number]] Glucose [Mass/volume] in Serum or Plasma [2345-7] 12/24/2024 05:19 PM 122 mg/dL N Blood chemistry[[id number]] Glucose [Mass/volume] in Serum or Plasma [2345-7] 12/24/2024 10:07 AM 102 mg/dL N Blood chemistry[[id number]] Glucose [Mass/volume] in Serum or Plasma [2345-7] 12/24/2024 09:46 AM 171 mg/dL N Blood chemistry[[id number]] Glucose [Mass/volume] in Serum or Plasma [2345-7] 12/23/2024 05:28 PM 91 mg/dL N Blood chemistry[[id number]] Glucose [Mass/volume] in Serum or Plasma [2345-7] 12/23/2024 01:06 PM 89 mg/dL N Blood chemistry[[id number]] Glucose [Mass/volume] in Serum or Plasma [2345-7] 12/23/2024 10:33 AM 99 mg/dL N Blood chemistry[[id number]] Glucose [Mass/volume] in Serum or Plasma [2345-7] 12/22/2024 10:37 AM 124 mg/dL N Blood chemistry[[id number]] Glucose [Mass/volume] in Serum or Plasma [2345-7] 12/22/2024 09:37 AM 150 mg/dL N Blood chemistry[[id number]] Glucose [Mass/volume] in Serum or Plasma [2345-7] 12/22/2024 06:56 AM 110 mg/dL N Blood chemistry[[id number]] Glucose [Mass/volume] in Serum or Plasma [2345-7] 12/21/2024 04:30 PM 161 mg/dL N Blood chemistry[[id number]] Glucose [Mass/volume] in Serum or Plasma [2345-7] 12/21/2024 12:00 PM 100 mg/dL N Blood chemistry[[id number]] Glucose [Mass/volume] in Serum or Plasma [2345-7] 12/21/2024 10:12 AM 132 mg/dL N Blood chemistry[[id number]] Glucose [Mass/volume] in Serum or Plasma [2345-7] 12/20/2024 05:03 PM 98 mg/dL N Blood chemistry[[id number]] Glucose [Mass/volume] in Serum or Plasma [2345-7] 12/20/2024 12:57 PM 241 mg/dL N Blood chemistry[[id number]] Glucose [Mass/volume] in Serum or Plasma [2345-7] 12/20/2024 10:00 AM 92 mg/dL N Blood chemistry[[id number]] Glucose [Mass/volume] in Serum or Plasma [2345-7] 12/19/2024 09:35 AM 120 mg/dL N Blood chemistry[[id number]] Glucose [Mass/volume] in Serum or Plasma [2345-7] 12/18/2024 04:46 PM 191 mg/dL N Blood chemistry[[id number]] Glucose [Mass/volume] in Serum or Plasma [2345-7] 12/18/2024 01:34 PM 130 mg/dL N Blood chemistry[[id number]] Glucose [Mass/volume] in Serum or Plasma [2345-7] 12/17/2024 05:01 PM 112 mg/dL N Blood chemistry[[id number]] Glucose [Mass/volume] in Serum or Plasma [2345-7] 12/17/2024 10:59 AM 159 mg/dL N Blood chemistry[[id number]] Glucose [Mass/volume] in Serum or Plasma [2345-7] 12/17/2024 10:15 AM 117 mg/dL N Blood chemistry[[id number]] Glucose [Mass/volume] in Serum or Plasma [2345-7] 12/16/2024 12:47 PM 120 mg/dL N Blood chemistry[[id number]] Glucose [Mass/volume] in Serum or Plasma [2345-7] 12/16/2024 10:23 AM 140 mg/dL N Blood chemistry[[id number]] Glucose [Mass/volume] in Serum or Plasma [2345-7] 12/16/2024 06:43 AM 136 mg/dL N Blood chemistry[[id number]] Glucose [Mass/volume] in Serum or Plasma [2345-7] 12/15/2024 05:34 PM 131 mg/dL N Blood chemistry[[id number]] Glucose [Mass/volume] in Serum or Plasma [2345-7] 12/15/2024 10:12 AM 115 mg/dL N Blood chemistry[[id number]] Glucose [Mass/volume] in Serum or Plasma [2345-7] 12/15/2024 09:47 AM 114 mg/dL N Blood chemistry[[id number]] Glucose [Mass/volume] in Serum or Plasma [2345-7] 12/14/2024 04:16 PM 143 mg/dL N Blood chemistry[[id number]] Glucose [Mass/volume] in Serum or Plasma [2345-7] 12/14/2024 10:12 AM 104 mg/dL N Blood chemistry[[id number]] Glucose [Mass/volume] in Serum or Plasma [2345-7] 12/14/2024 09:02 AM 150 mg/dL N Blood chemistry[[id number]] Glucose [Mass/volume] in Serum or Plasma [2345-7] 12/13/2024 10:29 AM 211 mg/dL N Blood chemistry[[id number]] Glucose [Mass/volume] in Serum or Plasma [2345-7] 12/13/2024 10:15 AM 107 mg/dL N Blood chemistry[[id number]] Glucose [Mass/volume] in Serum or Plasma [2345-7] 12/13/2024 06:51 AM 121 mg/dL N Blood chemistry[[id number]] Glucose [Mass/volume] in Serum or Plasma [2345-7] 12/12/2024 05:54 PM 101 mg/dL N Blood chemistry[[id number]] Glucose [Mass/volume] in Serum or Plasma [2345-7] 12/12/2024 10:16 AM 161 mg/dL N Blood chemistry[[id number]] Glucose [Mass/volume] in Serum or Plasma [2345-7] 12/12/2024 10:08 AM 117 mg/dL N Blood chemistry[[id number]] Glucose [Mass/volume] in Serum or Plasma [2345-7] 12/11/2024 04:36 PM 155 mg/dL N Blood chemistry[[id number]] Glucose [Mass/volume] in Serum or Plasma [2345-7] 12/11/2024 10:06 AM 101 mg/dL N Blood chemistry[[id number]] Glucose [Mass/volume] in Serum or Plasma [2345-7] 12/11/2024 09:35 AM 116 mg/dL N Blood chemistry[[id number]] Glucose [Mass/volume] in Serum or Plasma [2345-7] 12/10/2024 10:36 AM 112 mg/dL N Blood chemistry[[id number]] Glucose [Mass/volume] in Serum or Plasma [2345-7] 12/10/2024 09:55 AM 328 mg/dL N Blood chemistry[[id number]] Glucose [Mass/volume] in Serum or Plasma [2345-7] 12/10/2024 06:26 AM 149 mg/dL N Blood chemistry[[id number]] Glucose [Mass/volume] in Serum or Plasma [2345-7] 12/09/2024 10:26 AM 130 mg/dL N Blood chemistry[[id number]] Glucose [Mass/volume] in Serum or Plasma [2345-7] 12/09/2024 10:05 AM 85 mg/dL N Blood chemistry[[id number]] Glucose [Mass/volume] in Serum or Plasma [2345-7] 12/09/2024 06:50 AM 122 mg/dL N Blood chemistry[[id number]] Glucose [Mass/volume] in Serum or Plasma [2345-7] 12/08/2024 05:03 PM 71 mg/dL N Blood chemistry[[id number]] Glucose [Mass/volume] in Serum or Plasma [2345-7] 12/08/2024 10:26 AM 145 mg/dL N Blood chemistry[[id number]] Glucose [Mass/volume] in Serum or Plasma [2345-7] 12/08/2024 10:15 AM 119 mg/dL N Blood chemistry[[id number]] Glucose [Mass/volume] in Serum or Plasma [2345-7] 12/07/2024 05:00 PM 169 mg/dL N Blood chemistry[[id number]] Glucose [Mass/volume] in Serum or Plasma [2345-7] 12/07/2024 10:36 AM 101 mg/dL N Blood chemistry[[id number]] Glucose [Mass/volume] in Serum or Plasma [2345-7] 12/07/2024 09:26 AM 156 mg/dL N Blood chemistry[[id number]] Glucose [Mass/volume] in Serum or Plasma [2345-7] 12/06/2024 10:17 AM 87 mg/dL N Blood chemistry[[id number]] Glucose [Mass/volume] in Serum or Plasma [2345-7] 12/06/2024 09:05 AM 137 mg/dL N Blood chemistry[[id number]] Glucose [Mass/volume] in Serum or Plasma [2345-7] 12/06/2024 06:12 AM 159 mg/dL N Blood chemistry[[id number]] Glucose [Mass/volume] in Serum or Plasma [2345-7] 12/05/2024 05:46 PM 99 mg/dL N Blood chemistry[[id number]] Glucose [Mass/volume] in Serum or Plasma [2345-7] 12/05/2024 10:12 AM 120 mg/dL N Blood chemistry[[id number]] Glucose [Mass/volume] in Serum or Plasma [2345-7] 12/05/2024 09:25 AM 141 mg/dL N Blood chemistry[[id number]] Glucose [Mass/volume] in Serum or Plasma [2345-7] 12/04/2024 04:02 PM 134 mg/dL N Blood chemistry[[id number]] Glucose [Mass/volume] in Serum or Plasma [2345-7] 12/04/2024 10:53 AM 122 mg/dL N Blood chemistry[[id number]] Glucose [Mass/volume] in Serum or Plasma [2345-7] 12/04/2024 10:17 AM 103 mg/dL N Blood chemistry[[id number]] Glucose [Mass/volume] in Serum or Plasma [2345-7] 12/03/2024 05:21 PM 134 mg/dL N Blood chemistry[[id number]] Glucose [Mass/volume] in Serum or Plasma [2345-7] 12/03/2024 10:00 AM 93 mg/dL N Blood chemistry[[id number]] Glucose [Mass/volume] in Serum or Plasma [2345-7] 12/03/2024 08:29 AM 187 mg/dL N Blood chemistry[[id number]] Glucose [Mass/volume] in Serum or Plasma [2345-7] 12/02/2024 05:23 PM 124 mg/dL N Blood chemistry[[id number]] Glucose [Mass/volume] in Serum or Plasma [2345-7] 12/02/2024 10:12 AM 96 mg/dL N Blood chemistry[[id number]] Glucose [Mass/volume] in Serum or Plasma [2345-7] 12/02/2024 09:51 AM 95 mg/dL N Blood chemistry[[id number]] Glucose [Mass/volume] in Serum or Plasma [2345-7] 12/01/2024 09:34 AM 224 mg/dL N Glucose [Mass/volume] in Serum or Plasma [2345-7] 12/01/2024 09:34 AM 81 mg/dL N Blood chemistry[[id number]] Glucose [Mass/volume] in Serum or Plasma [2345-7] 11/30/2024 03:40 PM 183 mg/dL N Blood chemistry[[id number]] Glucose [Mass/volume] in Serum or Plasma [2345-7] 11/30/2024 01:19 PM 125 mg/dL N Blood chemistry[[id number]] Glucose [Mass/volume] in Serum or Plasma [2345-7] 11/30/2024 10:34 AM 133 mg/dL N Blood chemistry[[id number]] Glucose [Mass/volume] in Serum or Plasma [2345-7] 11/29/2024 10:01 AM 89 mg/dL N Blood chemistry[[id number]] Glucose [Mass/volume] in Serum or Plasma [2345-7] 11/29/2024 08:42 AM 195 mg/dL N Blood chemistry[[id number]] Glucose [Mass/volume] in Serum or Plasma [2345-7] 11/29/2024 06:23 AM 125 mg/dL N Blood chemistry[[id number]] Glucose [Mass/volume] in Serum or Plasma [2345-7] 11/28/2024 05:01 PM 88 mg/dL N Blood chemistry[[id number]] Glucose [Mass/volume] in Serum or Plasma [2345-7] 11/28/2024 10:25 AM 142 mg/dL N Blood chemistry[[id number]] Glucose [Mass/volume] in Serum or Plasma [2345-7] 11/28/2024 10:04 AM 107 mg/dL N Blood chemistry[[id number]] Glucose [Mass/volume] in Serum or Plasma [2345-7] 11/27/2024 05:01 PM 131 mg/dL N Blood chemistry[[id number]] Glucose [Mass/volume] in Serum or Plasma [2345-7] 11/27/2024 10:00 AM 106 mg/dL N Blood chemistry[[id number]] Glucose [Mass/volume] in Serum or Plasma [2345-7] 11/27/2024 09:07 AM 125 mg/dL N Blood chemistry[[id number]] Glucose [Mass/volume] in Serum or Plasma [2345-7] 11/26/2024 10:10 AM 120 mg/dL N Blood chemistry[[id number]] Glucose [Mass/volume] in Serum or Plasma [2345-7] 11/26/2024 09:55 AM 125 mg/dL N Blood chemistry[[id number]] Glucose [Mass/volume] in Serum or Plasma [2345-7] 11/25/2024 10:16 AM 85 mg/dL N Blood chemistry[[id number]] Glucose [Mass/volume] in Serum or Plasma [2345-7] 11/25/2024 09:51 AM 165 mg/dL N Blood chemistry[[id number]] Glucose [Mass/volume] in Serum or Plasma [2345-7] 11/25/2024 07:25 AM 103 mg/dL N Blood chemistry[[id number]] Glucose [Mass/volume] in Serum or Plasma [2345-7] 11/24/2024 05:47 PM 101 mg/dL N Blood chemistry[[id number]] Glucose [Mass/volume] in Serum or Plasma [2345-7] 11/24/2024 11:34 AM 188 mg/dL N Blood chemistry[[id number]] Glucose [Mass/volume] in Serum or Plasma [2345-7] 11/24/2024 11:33 AM 157 mg/dL N Blood chemistry[[id number]] Glucose [Mass/volume] in Serum or Plasma [2345-7] 11/24/2024 09:40 AM 53 mg/dL N Blood chemistry[[id number]] Glucose [Mass/volume] in Serum or Plasma [2345-7] 11/24/2024 09:17 AM 94 mg/dL N Blood chemistry[[id number]] Glucose [Mass/volume] in Serum or Plasma [2345-7] 11/23/2024 03:27 PM 232 mg/dL N Blood chemistry[[id number]] Glucose [Mass/volume] in Serum or Plasma [2345-7] 11/23/2024 10:07 AM 105 mg/dL N Blood chemistry[[id number]] Glucose [Mass/volume] in Serum or Plasma [2345-7] 11/23/2024 10:05 AM 91 mg/dL N Blood chemistry[[id number]] Glucose [Mass/volume] in Serum or Plasma [2345-7] 11/22/2024 03:27 PM 316 mg/dL N Blood chemistry[[id number]] Glucose [Mass/volume] in Serum or Plasma [5-7] 11/22/2024 10:03 AM 113 mg/dL N Blood chemistry[[id number]] Glucose [Mass/volume] in Serum or Plasma [5-7] 11/22/2024 08:50 AM 118 mg/dL N Blood chemistry[[id number]] Glucose [Mass/volume] in Serum or Plasma [2345-7] 11/21/2024 05:32 PM 85 mg/dL N Blood chemistry[[id number]] Glucose [Mass/volume] in Serum or Plasma [2345-7] 11/21/2024 10:09 AM 83 mg/dL N Blood chemistry[[id number]] Glucose [Mass/volume] in Serum or Plasma [2345-7] 11/21/2024 09:44 AM 193 mg/dL N Blood chemistry[[id number]] Glucose [Mass/volume] in Serum or Plasma [2345-7] 11/20/2024 05:28 PM 148 mg/dL N Blood chemistry[[id number]] Glucose [Mass/volume] in Serum or Plasma [5-7] 11/20/2024 10:13 AM 109 mg/dL N Blood chemistry[[id number]] Glucose [Mass/volume] in Serum or Plasma [2345-7] 11/20/2024 08:51 AM 130 mg/dL N Blood chemistry[[id number]] Glucose [Mass/volume] in Serum or Plasma [2345-7] 11/19/2024 10:16 AM 109 mg/dL N Blood chemistry[[id number]] Glucose [Mass/volume] in Serum or Plasma [2345-7] 11/19/2024 07:39 AM 121 mg/dL N Blood chemistry[[id number]] Glucose [Mass/volume] in Serum or Plasma [2345-7] 11/18/2024 05:09 PM 99 mg/dL N Blood chemistry[[id number]] Glucose [Mass/volume] in Serum or Plasma [2345-7] 11/18/2024 01:15 PM 89 mg/dL N Blood chemistry[[id number]] Glucose [Mass/volume] in Serum or Plasma [2345-7] 11/18/2024 10:29 AM 167 mg/dL N Blood chemistry[[id number]] Glucose [Mass/volume] in Serum or Plasma [2345-7] 11/17/2024 05:26 PM 93 mg/dL N Blood chemistry[[id number]] Glucose [Mass/volume] in Serum or Plasma [2345-7] 11/17/2024 10:00 AM 88 mg/dL N Blood chemistry[[id number]] Glucose [Mass/volume] in Serum or Plasma [2345-7] 11/17/2024 09:56 AM 266 mg/dL N Blood chemistry[[id number]] Glucose [Mass/volume] in Serum or Plasma [2345-7] 11/16/2024 05:45 PM 105 mg/dL N Blood chemistry[[id number]] Glucose [Mass/volume] in Serum or Plasma [2345-7] 11/16/2024 10:02 AM 82 mg/dL N Blood chemistry[[id number]] Glucose [Mass/volume] in Serum or Plasma [2345-7] 11/16/2024 08:44 AM 118 mg/dL N Blood chemistry[[id number]] Glucose [Mass/volume] in Serum or Plasma [2345-7] 11/15/2024 05:12 PM 121 mg/dL N Blood chemistry[[id number]] Glucose [Mass/volume] in Serum or Plasma [2345-7] 11/15/2024 10:18 AM 87 mg/dL N Blood chemistry[[id number]] Glucose [Mass/volume] in Serum or Plasma [2345-7] 11/15/2024 08:19 AM 123 mg/dL N Blood chemistry[[id number]] Glucose [Mass/volume] in Serum or Plasma [2345-7] 11/14/2024 05:21 PM 98 mg/dL N Blood chemistry[[id number]] Glucose [Mass/volume] in Serum or Plasma [2345-7] 11/14/2024 10:33 AM 138 mg/dL N Blood chemistry[[id number]] Glucose [Mass/volume] in Serum or Plasma [2345-7] 11/14/2024 10:00 AM 77 mg/dL N Blood chemistry[[id number]] Glucose [Mass/volume] in Serum or Plasma [2345-7] 11/13/2024 03:59 PM 189 mg/dL N Blood chemistry[[id number]] Glucose [Mass/volume] in Serum or Plasma [2345-7] 11/13/2024 12:16 PM 99 mg/dL N Blood chemistry[[id number]] Glucose [Mass/volume] in Serum or Plasma [2345-7] 11/13/2024 09:28 AM 123 mg/dL N Blood chemistry[[id number]] Glucose [Mass/volume] in Serum or Plasma [2345-7] 11/12/2024 05:02 PM 73 mg/dL N Blood chemistry[[id number]] Glucose [Mass/volume] in Serum or Plasma [2345-7] 11/12/2024 09:52 AM 153 mg/dL N Blood chemistry[[id number]] Glucose [Mass/volume] in Serum or Plasma [2345-7] 11/11/2024 04:51 PM 102 mg/dL N Blood chemistry[[id number]] Glucose [Mass/volume] in Serum or Plasma [2345-7] 11/11/2024 10:03 AM 89 mg/dL N Blood chemistry[[id number]] Glucose [Mass/volume] in Serum or Plasma [2345-7] 11/11/2024 09:27 AM 131 mg/dL N Blood chemistry[[id number]] Glucose [Mass/volume] in Serum or Plasma [2345-7] 11/10/2024 04:52 PM 99 mg/dL N Blood chemistry[[id number]] Glucose [Mass/volume] in Serum or Plasma [2345-7] 11/10/2024 11:07 AM 119 mg/dL N Blood chemistry[[id number]] Glucose [Mass/volume] in Serum or Plasma [2345-7] 11/09/2024 05:16 PM 171 mg/dL N Blood chemistry[[id number]] Glucose [Mass/volume] in Serum or Plasma [2345-7] 11/09/2024 10:06 AM 91 mg/dL N Blood chemistry[[id number]] Glucose [Mass/volume] in Serum or Plasma [2345-7] 11/09/2024 09:06 AM 161 mg/dL N Blood chemistry[[id number]] Glucose [Mass/volume] in Serum or Plasma [2345-7] 11/08/2024 05:17 PM 160 mg/dL N Blood chemistry[[id number]] Glucose [Mass/volume] in Serum or Plasma [2345-7] 11/08/2024 12:56 PM 137 mg/dL N Blood chemistry[[id number]] Glucose [Mass/volume] in Serum or Plasma [2345-7] 11/08/2024 11:08 AM 161 mg/dL N Blood chemistry[[id number]] Glucose [Mass/volume] in Serum or Plasma [2345-7] 11/07/2024 04:48 PM 92 mg/dL N Blood chemistry[[id number]] Glucose [Mass/volume] in Serum or Plasma [2345-7] 11/07/2024 10:00 AM 143 mg/dL N Blood chemistry[[id number]] Glucose [Mass/volume] in Serum or Plasma [2345-7] 11/07/2024 09:15 AM 237 mg/dL N Blood chemistry[[id number]] Glucose [Mass/volume] in Serum or Plasma [2345-7] 11/06/2024 04:41 PM 103 mg/dL N Blood chemistry[[id number]] Glucose [Mass/volume] in Serum or Plasma [2345-7] 11/06/2024 10:44 AM 103 mg/dL N Blood chemistry[[id number]] Glucose [Mass/volume] in Serum or Plasma [2345-7] 11/06/2024 10:05 AM 106 mg/dL N Blood chemistry[[id number]] Glucose [Mass/volume] in Serum or Plasma [2345-7] 11/05/2024 09:59 AM 94 mg/dL N Blood chemistry[[id number]] Glucose [Mass/volume] in Serum or Plasma [2345-7] 11/05/2024 09:25 AM 196 mg/dL N Blood chemistry[[id number]] Glucose [Mass/volume] in Serum or Plasma [2345-7] 11/04/2024 05:16 PM 98 mg/dL N Blood chemistry[[id number]] Glucose [Mass/volume] in Serum or Plasma [2345-7] 11/04/2024 10:02 AM 83 mg/dL N Blood chemistry[[id number]] Glucose [Mass/volume] in Serum or Plasma [2345-7] 11/04/2024 08:24 AM 195 mg/dL N Blood chemistry[[id number]] Glucose [Mass/volume] in Serum or Plasma [2345-7] 11/03/2024 05:13 PM 87 mg/dL N Blood chemistry[[id number]] Glucose [Mass/volume] in Serum or Plasma [2345-7] 11/03/2024 10:08 AM 112 mg/dL N Blood chemistry[[id number]] Glucose [Mass/volume] in Serum or Plasma [2345-7] 11/03/2024 09:46 AM 152 mg/dL N Blood chemistry[[id number]] Glucose [Mass/volume] in Serum or Plasma [2345-7] 11/02/2024 05:37 PM 104 mg/dL N Blood chemistry[[id number]] Glucose [Mass/volume] in Serum or Plasma [2345-7] 11/02/2024 12:47 PM 91 mg/dL N Blood chemistry[[id number]] Glucose [Mass/volume] in Serum or Plasma [2345-7] 11/02/2024 10:55 AM 111 mg/dL N Blood chemistry[[id number]] Glucose [Mass/volume] in Serum or Plasma [2345-7] 11/01/2024 05:49 PM 145 mg/dL N Blood chemistry[[id number]] Glucose [Mass/volume] in Serum or Plasma [2345-7] 11/01/2024 12:03 PM 102 mg/dL N Blood chemistry[[id number]] Glucose [Mass/volume] in Serum or Plasma [2345-7] 10/31/2024 05:43 PM 102 mg/dL N Blood chemistry[[id number]] Glucose [Mass/volume] in Serum or Plasma [2345-7] 10/31/2024 10:31 AM 133 mg/dL N Blood chemistry[[id number]] Glucose [Mass/volume] in Serum or Plasma [2345-7] 10/31/2024 10:12 AM 103 mg/dL N Blood chemistry[[id number]] Glucose [Mass/volume] in Serum or Plasma [2345-7] 10/30/2024 04:31 PM 83 mg/dL N Blood chemistry[[id number]] Glucose [Mass/volume] in Serum or Plasma [2345-7] 10/30/2024 10:19 AM 120 mg/dL N Blood chemistry[[id number]] Glucose [Mass/volume] in Serum or Plasma [2345-7] 10/30/2024 10:08 AM 77 mg/dL N Blood chemistry[[id number]] Glucose [Mass/volume] in Serum or Plasma [2345-7] 10/29/2024 05:32 PM 110 mg/dL N Blood chemistry[[id number]] Glucose [Mass/volume] in Serum or Plasma [2345-7] 10/29/2024 10:20 AM 100 mg/dL N Blood chemistry[[id number]] Glucose [Mass/volume] in Serum or Plasma [2345-7] 10/29/2024 09:11 AM 135 mg/dL N Blood chemistry[[id number]] Glucose [Mass/volume] in Serum or Plasma [2345-7] 10/28/2024 04:30 PM 199 mg/dL N Blood chemistry[[id number]] Glucose [Mass/volume] in Serum or Plasma [2345-7] 10/28/2024 10:14 AM 104 mg/dL N Blood chemistry[[id number]] Glucose [Mass/volume] in Serum or Plasma [2345-7] 10/28/2024 09:23 AM 133 mg/dL N Blood chemistry[[id number]] Glucose [Mass/volume] in Serum or Plasma [2345-7] 10/27/2024 05:01 PM 103 mg/dL N Blood chemistry[[id number]] Glucose [Mass/volume] in Serum or Plasma [2345-7] 10/27/2024 10:06 AM 97 mg/dL N Blood chemistry[[id number]] Glucose [Mass/volume] in Serum or Plasma [2345-7] 10/27/2024 09:40 AM 123 mg/dL N Blood chemistry[[id number]] Glucose [Mass/volume] in Serum or Plasma [2345-7] 10/26/2024 05:08 PM 151 mg/dL N Blood chemistry[[id number]] Glucose [Mass/volume] in Serum or Plasma [2345-7] 10/26/2024 10:01 AM 81 mg/dL N Blood chemistry[[id number]] Glucose [Mass/volume] in Serum or Plasma [2345-7] 10/26/2024 09:54 AM 146 mg/dL N Blood chemistry[[id number]] Glucose [Mass/volume] in Serum or Plasma [2345-7] 10/25/2024 10:56 AM 131 mg/dL N Blood chemistry[[id number]] Glucose [Mass/volume] in Serum or Plasma [2345-7] 10/25/2024 10:20 AM 98 mg/dL N Blood chemistry[[id number]] Glucose [Mass/volume] in Serum or Plasma [2345-7] 10/25/2024 06:32 AM 114 mg/dL N Blood chemistry[[id number]] Glucose [Mass/volume] in Serum or Plasma [2345-7] 10/24/2024 05:13 PM 109 mg/dL N Blood chemistry[[id number]] Glucose [Mass/volume] in Serum or Plasma [2345-7] 10/24/2024 10:38 AM 157 mg/dL N Blood chemistry[[id number]] Glucose [Mass/volume] in Serum or Plasma [2345-7] 10/24/2024 09:55 AM 92 mg/dL N Blood chemistry[[id number]] Glucose [Mass/volume] in Serum or Plasma [2345-7] 10/23/2024 10:13 AM 119 mg/dL N Blood chemistry[[id number]] Glucose [Mass/volume] in Serum or Plasma [2345-7] 10/23/2024 08:56 AM 95 mg/dL N Blood chemistry[[id number]] Glucose [Mass/volume] in Serum or Plasma [2345-7] 10/22/2024 05:40 PM 89 mg/dL N Blood chemistry[[id number]] Glucose [Mass/volume] in Serum or Plasma [2345-7] 10/22/2024 10:41 AM 134 mg/dL N Blood chemistry[[id number]] Glucose [Mass/volume] in Serum or Plasma [2345-7] 10/22/2024 10:16 AM 100 mg/dL N Blood chemistry[[id number]] Glucose [Mass/volume] in Serum or Plasma [2345-7] 10/21/2024 04:20 PM 181 mg/dL N Blood chemistry[[id number]] Glucose [Mass/volume] in Serum or Plasma [2345-7] 10/21/2024 12:23 PM 88 mg/dL N Blood chemistry[[id number]] Glucose [Mass/volume] in Serum or Plasma [2345-7] 10/21/2024 10:35 AM 145 mg/dL N Blood chemistry[[id number]] Glucose [Mass/volume] in Serum or Plasma [2345-7] 10/20/2024 04:22 PM 97 mg/dL N Blood chemistry[[id number]] Glucose [Mass/volume] in Serum or Plasma [2345-7] 10/20/2024 10:00 AM 134 mg/dL N Blood chemistry[[id number]] Glucose [Mass/volume] in Serum or Plasma [2345-7] 10/20/2024 09:07 AM 155 mg/dL N Blood chemistry[[id number]] Glucose [Mass/volume] in Serum or Plasma [2345-7] 10/19/2024 04:59 PM 131 mg/dL N Blood chemistry[[id number]] Glucose [Mass/volume] in Serum or Plasma [2345-7] 10/19/2024 10:02 AM 80 mg/dL N Blood chemistry[[id number]] Glucose [Mass/volume] in Serum or Plasma [2345-7] 10/19/2024 09:42 AM 99 mg/dL N Blood chemistry[[id number]] Glucose [Mass/volume] in Serum or Plasma [2345-7] 10/18/2024 05:33 PM 172 mg/dL N Blood chemistry[[id number]] Glucose [Mass/volume] in Serum or Plasma [2345-7] 10/18/2024 10:16 AM 87 mg/dL N Blood chemistry[[id number]] Glucose [Mass/volume] in Serum or Plasma [2345-7] 10/18/2024 10:04 AM 110 mg/dL N Blood chemistry[[id number]] Glucose [Mass/volume] in Serum or Plasma [2345-7] 10/17/2024 05:24 PM 78 mg/dL N Blood chemistry[[id number]] Glucose [Mass/volume] in Serum or Plasma [2345-7] 10/17/2024 10:15 AM 138 mg/dL N Blood chemistry[[id number]] Glucose [Mass/volume] in Serum or Plasma [2345-7] 10/17/2024 09:15 AM 89 mg/dL N Blood chemistry[[id number]] Glucose [Mass/volume] in Serum or Plasma [2345-7] 10/16/2024 05:13 PM 145 mg/dL N Blood chemistry[[id number]] Glucose [Mass/volume] in Serum or Plasma [2345-7] 10/16/2024 10:22 AM 78 mg/dL N Blood chemistry[[id number]] Glucose [Mass/volume] in Serum or Plasma [2345-7] 10/16/2024 09:55 AM 132 mg/dL N Blood chemistry[[id number]] Glucose [Mass/volume] in Serum or Plasma [2345-7] 10/15/2024 10:07 AM 83 mg/dL N Blood chemistry[[id number]] Glucose [Mass/volume] in Serum or Plasma [2345-7] 10/15/2024 09:22 AM 140 mg/dL N Blood chemistry[[id number]] Glucose [Mass/volume] in Serum or Plasma [2345-7] 10/15/2024 06:04 AM 123 mg/dL N Blood chemistry[[id number]] Glucose [Mass/volume] in Serum or Plasma [2345-7] 10/14/2024 04:48 PM 148 mg/dL N Blood chemistry[[id number]] Glucose [Mass/volume] in Serum or Plasma [2345-7] 10/14/2024 12:28 PM 86 mg/dL N Blood chemistry[[id number]] Glucose [Mass/volume] in Serum or Plasma [2345-7] 10/14/2024 09:48 AM 105 mg/dL N Blood chemistry[[id number]] Glucose [Mass/volume] in Serum or Plasma [2345-7] 10/13/2024 10:07 AM 170 mg/dL N Blood chemistry[[id number]] Glucose [Mass/volume] in Serum or Plasma [2345-7] 10/13/2024 09:59 AM 123 mg/dL N Blood chemistry[[id number]] Glucose [Mass/volume] in Serum or Plasma [2345-7] 10/12/2024 04:07 PM 118 mg/dL N Blood chemistry[[id number]] Glucose [Mass/volume] in Serum or Plasma [2345-7] 10/12/2024 10:09 AM 148 mg/dL N Blood chemistry[[id number]] Glucose [Mass/volume] in Serum or Plasma [2345-7] 10/12/2024 10:01 AM 82 mg/dL N Blood chemistry[[id number]] Glucose [Mass/volume] in Serum or Plasma [2345-7] 10/11/2024 05:04 PM 109 mg/dL N Blood chemistry[[id number]] Glucose [Mass/volume] in Serum or Plasma [2345-7] 10/11/2024 10:08 AM 88 mg/dL N Blood chemistry[[id number]] Glucose [Mass/volume] in Serum or Plasma [2345-7] 10/11/2024 09:15 AM 117 mg/dL N Blood chemistry[[id number]] Glucose [Mass/volume] in Serum or Plasma [2345-7] 10/10/2024 05:50 PM 127 mg/dL N Blood chemistry[[id number]] Glucose [Mass/volume] in Serum or Plasma [2345-7] 10/10/2024 11:51 AM 110 mg/dL N Blood chemistry[[id number]] Glucose [Mass/volume] in Serum or Plasma [2345-7] 10/10/2024 10:14 AM 119 mg/dL N Blood chemistry[[id number]] Glucose [Mass/volume] in Serum or Plasma [2345-7] 10/09/2024 04:30 PM 158 mg/dL N Blood chemistry[[id number]] Glucose [Mass/volume] in Serum or Plasma [2345-7] 10/09/2024 12:10 PM 81 mg/dL N Blood chemistry[[id number]] Glucose [Mass/volume] in Serum or Plasma [2345-7] 10/09/2024 09:17 AM 90 mg/dL N Blood chemistry[[id number]] Glucose [Mass/volume] in Serum or Plasma [2345-7] 10/08/2024 05:55 PM 126 mg/dL N Blood chemistry[[id number]] Glucose [Mass/volume] in Serum or Plasma [2345-7] 10/08/2024 09:17 AM 212 mg/dL N Blood chemistry[[id number]] Glucose [Mass/volume] in Serum or Plasma [2345-7] 10/07/2024 04:52 PM 123 mg/dL N Blood chemistry[[id number]] Glucose [Mass/volume] in Serum or Plasma [2345-7] 10/07/2024 12:16 PM 112 mg/dL N Blood chemistry[[id number]] Glucose [Mass/volume] in Serum or Plasma [2345-7] 10/07/2024 10:03 AM 110 mg/dL N Blood chemistry[[id number]] Glucose [Mass/volume] in Serum or Plasma [2345-7] 09/01/2024 05:11 PM 110 mg/dL N Blood chemistry[[id number]] Glucose [Mass/volume] in Serum or Plasma [2345-7] 09/01/2024 09:32 AM 233 mg/dL N Blood chemistry[[id number]] Glucose [Mass/volume] in Serum or Plasma [2345-7] 09/01/2024 09:14 AM 121 mg/dL N Blood chemistry[[id number]] Glucose [Mass/volume] in Serum or Plasma [2345-7] 08/31/2024 11:48 AM 221 mg/dL N Blood chemistry[[id number]] Glucose [Mass/volume] in Serum or Plasma [2345-7] 08/31/2024 04:18 PM 125 mg/dL N Blood chemistry[[id number]] Glucose [Mass/volume] in Serum or Plasma [2345-7] 08/31/2024 09:26 AM 173 mg/dL N Blood chemistry[[id number]] Glucose [Mass/volume] in Serum or Plasma [2345-7] 08/31/2024 09:37 AM 90 mg/dL N Blood chemistry[[id number]] Glucose [Mass/volume] in Serum or Plasma [2345-7] 08/30/2024 12:20 PM 152 mg/dL N Blood chemistry[[id number]] Glucose [Mass/volume] in Serum or Plasma [2345-7] 08/30/2024 04:37 PM 136 mg/dL N Blood chemistry[[id number]] Glucose [Mass/volume] in Serum or Plasma [5-7] 08/30/2024 10:28 AM 102 mg/dL N Blood chemistry[[id number]] Glucose [Mass/volume] in Serum or Plasma [5-7] 08/30/2024 10:01 AM 100 mg/dL N Blood chemistry[[id number]] Glucose [Mass/volume] in Serum or Plasma [2345-7] 08/29/2024 12:59 PM 170 mg/dL N Blood chemistry[[id number]] Glucose [Mass/volume] in Serum or Plasma [2345-7] 08/29/2024 05:48 PM 126 mg/dL N Blood chemistry[[id number]] Glucose [Mass/volume] in Serum or Plasma [2345-7] 08/29/2024 10:17 AM 142 mg/dL N Blood chemistry[[id number]] Glucose [Mass/volume] in Serum or Plasma [2345-7] 08/29/2024 10:26 AM 122 mg/dL N Blood chemistry[[id number]] Glucose [Mass/volume] in Serum or Plasma [2345-7] 08/28/2024 01:34 PM 185 mg/dL N Blood chemistry[[id number]] Glucose [Mass/volume] in Serum or Plasma [2345-7] 08/28/2024 05:33 PM 104 mg/dL N Blood chemistry[[id number]] Glucose [Mass/volume] in Serum or Plasma [2345-7] 08/28/2024 10:20 AM 138 mg/dL N Blood chemistry[[id number]] Glucose [Mass/volume] in Serum or Plasma [2345-7] 08/28/2024 09:29 AM 198 mg/dL N Blood chemistry[[id number]] Glucose [Mass/volume] in Serum or Plasma [2345-7] 08/27/2024 11:52 AM 171 mg/dL N Blood chemistry[[id number]] Glucose [Mass/volume] in Serum or Plasma [2345-7] 08/27/2024 05:09 PM 85 mg/dL N Blood chemistry[[id number]] Glucose [Mass/volume] in Serum or Plasma [2345-7] 08/27/2024 09:05 AM 127 mg/dL N Blood chemistry[[id number]] Glucose [Mass/volume] in Serum or Plasma [2345-7] 08/27/2024 09:00 AM 107 mg/dL N Blood chemistry[[id number]] Glucose [Mass/volume] in Serum or Plasma [2345-7] 08/26/2024 11:12 AM 162 mg/dL N Blood chemistry[[id number]] Glucose [Mass/volume] in Serum or Plasma [2345-7] 08/26/2024 09:57 AM 118 mg/dL N Blood chemistry[[id number]] Glucose [Mass/volume] in Serum or Plasma [2345-7] 08/26/2024 06:14 AM 144 mg/dL N Blood chemistry[[id number]] Glucose [Mass/volume] in Serum or Plasma [2345-7] 08/26/2024 09:14 AM 94 mg/dL N Blood chemistry[[id number]] Glucose [Mass/volume] in Serum or Plasma [2345-7] 08/25/2024 01:12 PM 118 mg/dL N Blood chemistry[[id number]] Glucose [Mass/volume] in Serum or Plasma [2345-7] 08/25/2024 05:16 PM 80 mg/dL N Blood chemistry[[id number]] Glucose [Mass/volume] in Serum or Plasma [2345-7] 08/25/2024 10:09 AM 181 mg/dL N Blood chemistry[[id number]] Glucose [Mass/volume] in Serum or Plasma [2345-7] 08/25/2024 09:40 AM 108 mg/dL N Blood chemistry[[id number]] Glucose [Mass/volume] in Serum or Plasma [2345-7] 08/24/2024 11:48 AM 229 mg/dL N Blood chemistry[[id number]] Glucose [Mass/volume] in Serum or Plasma [2345-7] 08/24/2024 04:06 PM 167 mg/dL N Blood chemistry[[id number]] Glucose [Mass/volume] in Serum or Plasma [2345-7] 08/24/2024 09:37 AM 109 mg/dL N Blood chemistry[[id number]] Glucose [Mass/volume] in Serum or Plasma [2345-7] 08/24/2024 09:20 AM 100 mg/dL N Blood chemistry[[id number]] Glucose [Mass/volume] in Serum or Plasma [2345-7] 08/23/2024 11:56 AM 196 mg/dL N Blood chemistry[[id number]] Glucose [Mass/volume] in Serum or Plasma [2345-7] 08/23/2024 04:24 PM 119 mg/dL N Blood chemistry[[id number]] Glucose [Mass/volume] in Serum or Plasma [2345-7] 08/23/2024 08:55 AM 150 mg/dL N Blood chemistry[[id number]] Glucose [Mass/volume] in Serum or Plasma [2345-7] 08/22/2024 11:14 AM 161 mg/dL N Blood chemistry[[id number]] Glucose [Mass/volume] in Serum or Plasma [2345-7] 08/22/2024 09:46 AM 121 mg/dL N Blood chemistry[[id number]] Glucose [Mass/volume] in Serum or Plasma [2345-7] 08/22/2024 06:03 AM 103 mg/dL N Blood chemistry[[id number]] Glucose [Mass/volume] in Serum or Plasma [2345-7] 08/22/2024 09:25 AM 86 mg/dL N Blood chemistry[[id number]] Glucose [Mass/volume] in Serum or Plasma [2345-7] 08/21/2024 11:11 AM 215 mg/dL N Blood chemistry[[id number]] Glucose [Mass/volume] in Serum or Plasma [2345-7] 08/21/2024 05:34 PM 96 mg/dL N Blood chemistry[[id number]] Glucose [Mass/volume] in Serum or Plasma [2345-7] 08/21/2024 10:13 AM 131 mg/dL N Blood chemistry[[id number]] Glucose [Mass/volume] in Serum or Plasma [2345-7] 08/21/2024 09:15 AM 127 mg/dL N Blood chemistry[[id number]] Glucose [Mass/volume] in Serum or Plasma [2345-7] 08/20/2024 11:00 AM 190 mg/dL N Blood chemistry[[id number]] Glucose [Mass/volume] in Serum or Plasma [2345-7] 08/20/2024 05:40 PM 89 mg/dL N Blood chemistry[[id number]] Glucose [Mass/volume] in Serum or Plasma [2345-7] 08/20/2024 09:18 AM 185 mg/dL N Blood chemistry[[id number]] Glucose [Mass/volume] in Serum or Plasma [2345-7] 08/20/2024 09:00 AM 120 mg/dL N Blood chemistry[[id number]] Glucose [Mass/volume] in Serum or Plasma [2345-7] 08/19/2024 11:05 AM 229 mg/dL N Blood chemistry[[id number]] Glucose [Mass/volume] in Serum or Plasma [2345-7] 08/19/2024 05:17 PM 104 mg/dL N Blood chemistry[[id number]] Glucose [Mass/volume] in Serum or Plasma [2345-7] 08/19/2024 09:43 AM 200 mg/dL N Blood chemistry[[id number]] Glucose [Mass/volume] in Serum or Plasma [2345-7] 08/19/2024 09:51 AM 101 mg/dL N Blood chemistry[[id number]] Glucose [Mass/volume] in Serum or Plasma [2345-7] 08/18/2024 12:23 PM 150 mg/dL N Blood chemistry[[id number]] Glucose [Mass/volume] in Serum or Plasma [2345-7] 08/18/2024 05:41 PM 154 mg/dL N Blood chemistry[[id number]] Glucose [Mass/volume] in Serum or Plasma [2345-7] 08/18/2024 09:57 AM 153 mg/dL N Blood chemistry[[id number]] Glucose [Mass/volume] in Serum or Plasma [2345-7] 08/18/2024 10:09 AM 124 mg/dL N Blood chemistry[[id number]] Glucose [Mass/volume] in Serum or Plasma [2345-7] 08/17/2024 01:31 PM 174 mg/dL N Blood chemistry[[id number]] Glucose [Mass/volume] in Serum or Plasma [2345-7] 08/17/2024 10:38 AM 128 mg/dL N Blood chemistry[[id number]] Glucose [Mass/volume] in Serum or Plasma [2345-7] 08/17/2024 04:14 PM 188 mg/dL N Blood chemistry[[id number]] Glucose [Mass/volume] in Serum or Plasma [2345-7] 08/17/2024 09:53 AM 116 mg/dL N Blood chemistry[[id number]] Glucose [Mass/volume] in Serum or Plasma [2345-7] 08/16/2024 01:01 PM 167 mg/dL N Blood chemistry[[id number]] Glucose [Mass/volume] in Serum or Plasma [2345-7] 08/16/2024 04:40 PM 114 mg/dL N Blood chemistry[[id number]] Glucose [Mass/volume] in Serum or Plasma [2345-7] 08/16/2024 09:26 AM 114 mg/dL N Blood chemistry[[id number]] Glucose [Mass/volume] in Serum or Plasma [2345-7] 08/15/2024 05:38 PM 109 mg/dL N Blood chemistry[[id number]] Glucose [Mass/volume] in Serum or Plasma [2345-7] 08/15/2024 09:13 AM 95 mg/dL N Blood chemistry[[id number]] Glucose [Mass/volume] in Serum or Plasma [2345-7] 08/14/2024 11:02 AM 145 mg/dL N Blood chemistry[[id number]] Glucose [Mass/volume] in Serum or Plasma [2345-7] 08/14/2024 10:43 AM 140 mg/dL N Blood chemistry[[id number]] Glucose [Mass/volume] in Serum or Plasma [2345-7] 08/14/2024 07:47 AM 109 mg/dL N Blood chemistry[[id number]] Glucose [Mass/volume] in Serum or Plasma [2345-7] 08/14/2024 10:09 AM 141 mg/dL N Blood chemistry[[id number]] Glucose [Mass/volume] in Serum or Plasma [2345-7] 08/13/2024 04:10 PM 156 mg/dL N Blood chemistry[[id number]] Glucose [Mass/volume] in Serum or Plasma [2345-7] 08/13/2024 11:04 AM 96 mg/dL N Blood chemistry[[id number]] Glucose [Mass/volume] in Serum or Plasma [2345-7] 08/13/2024 09:02 AM 149 mg/dL N Blood chemistry[[id number]] Glucose [Mass/volume] in Serum or Plasma [2345-7] 08/13/2024 09:07 AM 101 mg/dL N Blood chemistry[[id number]] Glucose [Mass/volume] in Serum or Plasma [2345-7] 08/12/2024 11:11 AM 150 mg/dL N Blood chemistry[[id number]] Glucose [Mass/volume] in Serum or Plasma [2345-7] 08/12/2024 05:24 PM 137 mg/dL N Blood chemistry[[id number]] Glucose [Mass/volume] in Serum or Plasma [2345-7] 08/12/2024 10:42 AM 117 mg/dL N Blood chemistry[[id number]] Glucose [Mass/volume] in Serum or Plasma [2345-7] 08/12/2024 09:58 AM 83 mg/dL N Blood chemistry[[id number]] Glucose [Mass/volume] in Serum or Plasma [2345-7] 08/11/2024 12:41 PM 173 mg/dL N Blood chemistry[[id number]] Glucose [Mass/volume] in Serum or Plasma [2345-7] 08/11/2024 05:27 PM 94 mg/dL N Blood chemistry[[id number]] Glucose [Mass/volume] in Serum or Plasma [2345-7] 08/11/2024 09:22 AM 151 mg/dL N Blood chemistry[[id number]] Glucose [Mass/volume] in Serum or Plasma [2345-7] 08/11/2024 09:34 AM 131 mg/dL N Blood chemistry[[id number]] Glucose [Mass/volume] in Serum or Plasma [2345-7] 08/10/2024 03:23 PM 145 mg/dL N Blood chemistry[[id number]] Glucose [Mass/volume] in Serum or Plasma [2345-7] 08/10/2024 05:11 PM 148 mg/dL N Blood chemistry[[id number]] Glucose [Mass/volume] in Serum or Plasma [2345-7] 08/10/2024 10:03 AM 109 mg/dL N Blood chemistry[[id number]] Glucose [Mass/volume] in Serum or Plasma [2345-7] 08/10/2024 10:00 AM 141 mg/dL N Blood chemistry[[id number]] Glucose [Mass/volume] in Serum or Plasma [2345-7] 08/09/2024 03:16 PM 184 mg/dL N Blood chemistry[[id number]] Glucose [Mass/volume] in Serum or Plasma [2345-7] 08/09/2024 04:08 PM 164 mg/dL N Blood chemistry[[id number]] Glucose [Mass/volume] in Serum or Plasma [2345-7] 08/09/2024 09:01 AM 97 mg/dL N Blood chemistry[[id number]] Glucose [Mass/volume] in Serum or Plasma [2345-7] 08/09/2024 10:14 AM 111 mg/dL N Blood chemistry[[id number]] Glucose [Mass/volume] in Serum or Plasma [2345-7] 08/08/2024 04:45 PM 136 mg/dL N Blood chemistry[[id number]] Glucose [Mass/volume] in Serum or Plasma [2345-7] 08/08/2024 09:53 AM 132 mg/dL N Blood chemistry[[id number]] Glucose [Mass/volume] in Serum or Plasma [2345-7] 08/08/2024 07:38 AM 143 mg/dL N Blood chemistry[[id number]] Glucose [Mass/volume] in Serum or Plasma [2345-7] 08/08/2024 09:10 AM 105 mg/dL N Blood chemistry[[id number]] Glucose [Mass/volume] in Serum or Plasma [2345-7] 08/07/2024 11:03 AM 177 mg/dL N Blood chemistry[[id number]] Glucose [Mass/volume] in Serum or Plasma [2345-7] 08/07/2024 05:13 PM 126 mg/dL N Blood chemistry[[id number]] Glucose [Mass/volume] in Serum or Plasma [2345-7] 08/07/2024 09:44 AM 122 mg/dL N Blood chemistry[[id number]] Glucose [Mass/volume] in Serum or Plasma [2345-7] 08/07/2024 09:20 AM 91 mg/dL N Blood chemistry[[id number]] Glucose [Mass/volume] in Serum or Plasma [2345-7] 08/06/2024 11:35 AM 199 mg/dL N Blood chemistry[[id number]] Glucose [Mass/volume] in Serum or Plasma [2345-7] 08/06/2024 09:52 AM 167 mg/dL N Blood chemistry[[id number]] Glucose [Mass/volume] in Serum or Plasma [2345-7] 08/06/2024 09:13 AM 97 mg/dL N Blood chemistry[[id number]] Glucose [Mass/volume] in Serum or Plasma [2345-7] 08/05/2024 05:15 PM 122 mg/dL N Blood chemistry[[id number]] Glucose [Mass/volume] in Serum or Plasma [2345-7] 08/05/2024 11:08 AM 181 mg/dL N Blood chemistry[[id number]] Glucose [Mass/volume] in Serum or Plasma [2345-7] 08/05/2024 09:28 AM 149 mg/dL N Blood chemistry[[id number]] Glucose [Mass/volume] in Serum or Plasma [2345-7] 08/05/2024 10:20 AM 99 mg/dL N Blood chemistry[[id number]] Glucose [Mass/volume] in Serum or Plasma [2345-7] 08/04/2024 01:31 PM 162 mg/dL N Blood chemistry[[id number]] Glucose [Mass/volume] in Serum or Plasma [2345-7] 08/04/2024 05:30 PM 122 mg/dL N Blood chemistry[[id number]] Glucose [Mass/volume] in Serum or Plasma [2345-7] 08/04/2024 09:17 AM 155 mg/dL N Blood chemistry[[id number]] Glucose [Mass/volume] in Serum or Plasma [2345-7] 08/04/2024 10:21 AM 141 mg/dL N Blood chemistry[[id number]] Glucose [Mass/volume] in Serum or Plasma [2345-7] 08/03/2024 12:38 PM 142 mg/dL N Blood chemistry[[id number]] Glucose [Mass/volume] in Serum or Plasma [2345-7] 08/03/2024 04:31 PM 138 mg/dL N Blood chemistry[[id number]] Glucose [Mass/volume] in Serum or Plasma [2345-7] 08/03/2024 10:06 AM 128 mg/dL N Blood chemistry[[id number]] Glucose [Mass/volume] in Serum or Plasma [2345-7] 08/03/2024 11:18 AM 121 mg/dL N Blood chemistry[[id number]] Glucose [Mass/volume] in Serum or Plasma [2345-7] 08/02/2024 04:31 PM 155 mg/dL N Blood chemistry[[id number]] Glucose [Mass/volume] in Serum or Plasma [2345-7] 08/02/2024 04:58 PM 163 mg/dL N Blood chemistry[[id number]] Glucose [Mass/volume] in Serum or Plasma [2345-7] 08/02/2024 09:41 AM 144 mg/dL N Blood chemistry[[id number]] Glucose [Mass/volume] in Serum or Plasma [2345-7] 08/02/2024 10:00 AM 130 mg/dL N Blood chemistry[[id number]] Glucose [Mass/volume] in Serum or Plasma [2345-7] 08/01/2024 12:24 PM 178 mg/dL N Blood chemistry[[id number]] Glucose [Mass/volume] in Serum or Plasma [2345-7] 08/01/2024 05:08 PM 118 mg/dL N Blood chemistry[[id number]] Glucose [Mass/volume] in Serum or Plasma [2345-7] 08/01/2024 10:17 AM 157 mg/dL N Blood chemistry[[id number]] Glucose [Mass/volume] in Serum or Plasma [2345-7] 08/01/2024 09:11 AM 112 mg/dL N Blood chemistry[[id number]] Glucose [Mass/volume] in Serum or Plasma [2345-7] 07/31/2024 05:14 PM 127 mg/dL N Blood chemistry[[id number]] Glucose [Mass/volume] in Serum or Plasma [2345-7] 07/31/2024 11:07 AM 142 mg/dL N Blood chemistry[[id number]] Glucose [Mass/volume] in Serum or Plasma [2345-7] 07/31/2024 10:27 AM 164 mg/dL N Blood chemistry[[id number]] Glucose [Mass/volume] in Serum or Plasma [2345-7] 07/31/2024 09:12 AM 133 mg/dL N Blood chemistry[[id number]] Glucose [Mass/volume] in Serum or Plasma [2345-7] 07/30/2024 11:21 AM 157 mg/dL N Glucose [Mass/volume] in Serum or Plasma [2345-7] 07/30/2024 11:21 AM 150 mg/dL N Blood chemistry[[id number]] Glucose [Mass/volume] in Serum or Plasma [2345-7] 07/30/2024 05:54 PM 184 mg/dL N Blood chemistry[[id number]] Glucose [Mass/volume] in Serum or Plasma [2345-7] 07/30/2024 09:16 AM 134 mg/dL N Blood chemistry[[id number]] Glucose [Mass/volume] in Serum or Plasma [2345-7] 07/29/2024 11:49 AM 133 mg/dL N Blood chemistry[[id number]] Glucose [Mass/volume] in Serum or Plasma [2345-7] 07/29/2024 04:05 PM 123 mg/dL N Blood chemistry[[id number]] Glucose [Mass/volume] in Serum or Plasma [2345-7] 07/29/2024 10:06 AM 162 mg/dL N Blood chemistry[[id number]] Glucose [Mass/volume] in Serum or Plasma [2345-7] 07/29/2024 10:18 AM 117 mg/dL N Blood chemistry[[id number]] Glucose [Mass/volume] in Serum or Plasma [2345-7] 07/28/2024 01:11 PM 158 mg/dL N Blood chemistry[[id number]] Glucose [Mass/volume] in Serum or Plasma [2345-7] 07/28/2024 09:56 AM 150 mg/dL N Blood chemistry[[id number]] Glucose [Mass/volume] in Serum or Plasma [2345-7] 07/28/2024 06:53 AM 111 mg/dL N Blood chemistry[[id number]] Glucose [Mass/volume] in Serum or Plasma [2345-7] 07/28/2024 09:50 AM 108 mg/dL N Blood chemistry[[id number]] Glucose [Mass/volume] in Serum or Plasma [2345-7] 07/27/2024 12:34 PM 162 mg/dL N Blood chemistry[[id number]] Glucose [Mass/volume] in Serum or Plasma [2345-7] 07/27/2024 04:38 PM 148 mg/dL N Blood chemistry[[id number]] Glucose [Mass/volume] in Serum or Plasma [2345-7] 07/27/2024 09:46 AM 129 mg/dL N Blood chemistry[[id number]] Glucose [Mass/volume] in Serum or Plasma [2345-7] 07/27/2024 10:12 AM 136 mg/dL N Blood chemistry[[id number]] Glucose [Mass/volume] in Serum or Plasma [2345-7] 07/26/2024 01:47 PM 155 mg/dL N Blood chemistry[[id number]] Glucose [Mass/volume] in Serum or Plasma [2345-7] 07/26/2024 04:08 PM 189 mg/dL N Blood chemistry[[id number]] Glucose [Mass/volume] in Serum or Plasma [2345-7] 07/26/2024 09:31 AM 114 mg/dL N Blood chemistry[[id number]] Glucose [Mass/volume] in Serum or Plasma [2345-7] 07/26/2024 10:26 AM 86 mg/dL N Blood chemistry[[id number]] Glucose [Mass/volume] in Serum or Plasma [2345-7] 07/25/2024 12:32 PM 218 mg/dL N Blood chemistry[[id number]] Glucose [Mass/volume] in Serum or Plasma [2345-7] 07/25/2024 05:13 PM 112 mg/dL N Blood chemistry[[id number]] Glucose [Mass/volume] in Serum or Plasma [2345-7] 07/25/2024 10:28 AM 127 mg/dL N Blood chemistry[[id number]] Glucose [Mass/volume] in Serum or Plasma [2345-7] 07/25/2024 10:32 AM 123 mg/dL N Blood chemistry[[id number]] Glucose [Mass/volume] in Serum or Plasma [2345-7] 07/24/2024 03:49 PM 141 mg/dL N Blood chemistry[[id number]] Glucose [Mass/volume] in Serum or Plasma [2345-7] 07/24/2024 04:12 PM 161 mg/dL N Blood chemistry[[id number]] Glucose [Mass/volume] in Serum or Plasma [2345-7] 07/24/2024 10:14 AM 112 mg/dL N Blood chemistry[[id number]] Glucose [Mass/volume] in Serum or Plasma [2345-7] 07/24/2024 09:18 AM 140 mg/dL N Blood chemistry[[id number]] Glucose [Mass/volume] in Serum or Plasma [2345-7] 07/23/2024 11:53 AM 203 mg/dL N Blood chemistry[[id number]] Glucose [Mass/volume] in Serum or Plasma [2345-7] 07/23/2024 05:45 PM 139 mg/dL N Blood chemistry[[id number]] Glucose [Mass/volume] in Serum or Plasma [2345-7] 07/23/2024 09:48 AM 164 mg/dL N Blood chemistry[[id number]] Glucose [Mass/volume] in Serum or Plasma [2345-7] 07/23/2024 09:02 AM 145 mg/dL N Blood chemistry[[id number]] Glucose [Mass/volume] in Serum or Plasma [2345-7] 07/22/2024 12:04 PM 184 mg/dL N Blood chemistry[[id number]] Glucose [Mass/volume] in Serum or Plasma [2345-7] 07/22/2024 03:51 PM 213 mg/dL N Blood chemistry[[id number]] Glucose [Mass/volume] in Serum or Plasma [2345-7] 07/22/2024 09:37 AM 177 mg/dL N Blood chemistry[[id number]] Glucose [Mass/volume] in Serum or Plasma [2345-7] 07/22/2024 10:06 AM 126 mg/dL N Blood chemistry[[id number]] Glucose [Mass/volume] in Serum or Plasma [2345-7] 07/21/2024 12:40 PM 235 mg/dL N Blood chemistry[[id number]] Glucose [Mass/volume] in Serum or Plasma [2345-7] 07/21/2024 05:00 PM 140 mg/dL N Blood chemistry[[id number]] Glucose [Mass/volume] in Serum or Plasma [2345-7] 07/21/2024 09:34 AM 169 mg/dL N Blood chemistry[[id number]] Glucose [Mass/volume] in Serum or Plasma [2345-7] 07/21/2024 09:46 AM 109 mg/dL N Blood chemistry[[id number]] Glucose [Mass/volume] in Serum or Plasma [2345-7] 07/20/2024 01:15 PM 180 mg/dL N Blood chemistry[[id number]] Glucose [Mass/volume] in Serum or Plasma [2345-7] 07/20/2024 04:19 PM 185 mg/dL N Blood chemistry[[id number]] Glucose [Mass/volume] in Serum or Plasma [2345-7] 07/20/2024 09:32 AM 126 mg/dL N Blood chemistry[[id number]] Glucose [Mass/volume] in Serum or Plasma [2345-7] 07/20/2024 10:15 AM 114 mg/dL N Blood chemistry[[id number]] Glucose [Mass/volume] in Serum or Plasma [2345-7] 07/19/2024 11:36 AM 144 mg/dL N Blood chemistry[[id number]] Glucose [Mass/volume] in Serum or Plasma [2345-7] 07/19/2024 04:21 PM 175 mg/dL N Blood chemistry[[id number]] Glucose [Mass/volume] in Serum or Plasma [2345-7] 07/19/2024 08:49 AM 140 mg/dL N Blood chemistry[[id number]] Glucose [Mass/volume] in Serum or Plasma [2345-7] 07/19/2024 10:16 AM 104 mg/dL N Blood chemistry[[id number]] Glucose [Mass/volume] in Serum or Plasma [2345-7] 07/18/2024 12:25 PM 132 mg/dL N Blood chemistry[[id number]] Glucose [Mass/volume] in Serum or Plasma [2345-7] 07/18/2024 05:10 PM 101 mg/dL N Blood chemistry[[id number]] Glucose [Mass/volume] in Serum or Plasma [2345-7] 07/18/2024 09:29 AM 160 mg/dL N COVID-19 Test Viral Antigen null flavor [null] 07/18/2024 07:58 AM See note IND COVID-19 Test Viral Antigen Blood chemistry[[id number]] Glucose [Mass/volume] in Serum or Plasma [2345-7] 07/18/2024 09:01 AM 141 mg/dL N Blood chemistry[[id number]] Glucose [Mass/volume] in Serum or Plasma [2345-7] 07/17/2024 11:52 AM 171 mg/dL N Blood chemistry[[id number]] Glucose [Mass/volume] in Serum or Plasma [2345-7] 07/17/2024 03:49 PM 175 mg/dL N Blood chemistry[[id number]] Glucose [Mass/volume] in Serum or Plasma [2345-7] 07/17/2024 08:45 AM 166 mg/dL N Blood chemistry[[id number]] Glucose [Mass/volume] in Serum or Plasma [2345-7] 07/17/2024 09:00 AM 122 mg/dL N Blood chemistry[[id number]] Glucose [Mass/volume] in Serum or Plasma [2345-7] 07/16/2024 11:43 AM 156 mg/dL N Blood chemistry[[id number]] Glucose [Mass/volume] in Serum or Plasma [2345-7] 07/16/2024 04:40 PM 105 mg/dL N Blood chemistry[[id number]] Glucose [Mass/volume] in Serum or Plasma [2345-7] 07/16/2024 08:19 AM 182 mg/dL N Blood chemistry[[id number]] Glucose [Mass/volume] in Serum or Plasma [2345-7] 07/16/2024 09:03 AM 103 mg/dL N Blood chemistry[[id number]] Glucose [Mass/volume] in Serum or Plasma [2345-7] 07/15/2024 11:57 AM 227 mg/dL N Blood chemistry[[id number]] Glucose [Mass/volume] in Serum or Plasma [2345-7] 07/15/2024 05:07 PM 204 mg/dL N Blood chemistry[[id number]] Glucose [Mass/volume] in Serum or Plasma [2345-7] 07/15/2024 10:42 AM 141 mg/dL N Blood chemistry[[id number]] Glucose [Mass/volume] in Serum or Plasma [2345-7] 07/15/2024 10:47 AM 123 mg/dL N Blood chemistry[[id number]] Glucose [Mass/volume] in Serum or Plasma [2345-7] 07/14/2024 11:52 AM 201 mg/dL N Blood chemistry[[id number]] Glucose [Mass/volume] in Serum or Plasma [2345-7] 07/14/2024 09:20 AM 260 mg/dL N Blood chemistry[[id number]] Glucose [Mass/volume] in Serum or Plasma [2345-7] 07/14/2024 07:29 AM 106 mg/dL N Blood chemistry[[id number]] Glucose [Mass/volume] in Serum or Plasma [2345-7] 07/14/2024 10:19 AM 102 mg/dL N Blood chemistry[[id number]] Glucose [Mass/volume] in Serum or Plasma [2345-7] 07/13/2024 11:58 AM 207 mg/dL N Blood chemistry[[id number]] Glucose [Mass/volume] in Serum or Plasma [2345-7] 07/13/2024 04:55 PM 172 mg/dL N Blood chemistry[[id number]] Glucose [Mass/volume] in Serum or Plasma [2345-7] 07/13/2024 10:16 AM 150 mg/dL N Blood chemistry[[id number]] Glucose [Mass/volume] in Serum or Plasma [2345-7] 07/13/2024 10:34 AM 154 mg/dL N Blood chemistry[[id number]] Glucose [Mass/volume] in Serum or Plasma [2345-7] 07/12/2024 12:29 PM 242 mg/dL N Blood chemistry[[id number]] Glucose [Mass/volume] in Serum or Plasma [2345-7] 07/12/2024 03:43 PM 169 mg/dL N Blood chemistry[[id number]] Glucose [Mass/volume] in Serum or Plasma [2345-7] 07/12/2024 08:50 AM 136 mg/dL N Blood chemistry[[id number]] Glucose [Mass/volume] in Serum or Plasma [2345-7] 07/12/2024 10:21 AM 248 mg/dL N Blood chemistry[[id number]] Glucose [Mass/volume] in Serum or Plasma [2345-7] 07/11/2024 01:23 PM 197 mg/dL N Blood chemistry[[id number]] Glucose [Mass/volume] in Serum or Plasma [2345-7] 07/11/2024 05:48 PM 124 mg/dL N Blood chemistry[[id number]] Glucose [Mass/volume] in Serum or Plasma [2345-7] 07/11/2024 10:09 AM 154 mg/dL N Blood chemistry[[id number]] Glucose [Mass/volume] in Serum or Plasma [2345-7] 07/11/2024 09:00 AM 151 mg/dL N Blood chemistry[[id number]] Glucose [Mass/volume] in Serum or Plasma [2345-7] 07/10/2024 01:09 PM 151 mg/dL N Blood chemistry[[id number]] Glucose [Mass/volume] in Serum or Plasma [2345-7] 07/10/2024 04:21 PM 176 mg/dL N Blood chemistry[[id number]] Glucose [Mass/volume] in Serum or Plasma [2345-7] 07/10/2024 09:00 AM 170 mg/dL N Blood chemistry[[id number]] Glucose [Mass/volume] in Serum or Plasma [2345-7] 07/10/2024 09:14 AM 113 mg/dL N Blood chemistry[[id number]] Glucose [Mass/volume] in Serum or Plasma [2345-7] 07/09/2024 11:44 AM 197 mg/dL N Blood chemistry[[id number]] Glucose [Mass/volume] in Serum or Plasma [2345-7] 07/09/2024 09:27 AM 199 mg/dL N Blood chemistry[[id number]] Glucose [Mass/volume] in Serum or Plasma [2345-7] 07/09/2024 09:06 AM 105 mg/dL N Blood chemistry[[id number]] Glucose [Mass/volume] in Serum or Plasma [2345-7] 07/08/2024 11:49 AM 187 mg/dL N Blood chemistry[[id number]] Glucose [Mass/volume] in Serum or Plasma [2345-7] 07/08/2024 09:38 AM 187 mg/dL N Blood chemistry[[id number]] Glucose [Mass/volume] in Serum or Plasma [2345-7] 07/08/2024 10:21 AM 109 mg/dL N Blood chemistry[[id number]] Glucose [Mass/volume] in Serum or Plasma [2345-7] 07/08/2024 06:35 AM 150 mg/dL N Blood chemistry[[id number]] Glucose [Mass/volume] in Serum or Plasma [2345-7] 07/07/2024 05:52 PM 114 mg/dL N Blood chemistry[[id number]] Glucose [Mass/volume] in Serum or Plasma [2345-7] 07/07/2024 03:04 PM 92 mg/dL N Blood chemistry[[id number]] Glucose [Mass/volume] in Serum or Plasma [2345-7] 07/07/2024 09:40 AM 165 mg/dL N Blood chemistry[[id number]] Glucose [Mass/volume] in Serum or Plasma [2345-7] 07/07/2024 10:25 AM 119 mg/dL N Blood chemistry[[id number]] Glucose [Mass/volume] in Serum or Plasma [2345-7] 07/06/2024 12:10 PM 250 mg/dL N Blood chemistry[[id number]] Glucose [Mass/volume] in Serum or Plasma [2345-7] 07/06/2024 09:18 AM 121 mg/dL N Blood chemistry[[id number]] Glucose [Mass/volume] in Serum or Plasma [2345-7] 07/06/2024 03:17 PM 217 mg/dL N Blood chemistry[[id number]] Glucose [Mass/volume] in Serum or Plasma [2345-7] 07/06/2024 09:58 AM 118 mg/dL N Blood chemistry[[id number]] Glucose [Mass/volume] in Serum or Plasma [2345-7] 07/05/2024 05:15 PM 129 mg/dL N Blood chemistry[[id number]] Glucose [Mass/volume] in Serum or Plasma [2345-7] 07/05/2024 01:28 PM 175 mg/dL N Blood chemistry[[id number]] Glucose [Mass/volume] in Serum or Plasma [2345-7] 07/05/2024 10:31 AM 128 mg/dL N Blood chemistry[[id number]] Glucose [Mass/volume] in Serum or Plasma [2345-7] 07/05/2024 10:54 AM 124 mg/dL N Blood chemistry[[id number]] Glucose [Mass/volume] in Serum or Plasma [2345-7] 07/04/2024 01:00 PM 183 mg/dL N Blood chemistry[[id number]] Glucose [Mass/volume] in Serum or Plasma [2345-7] 07/04/2024 05:54 PM 113 mg/dL N Blood chemistry[[id number]] Glucose [Mass/volume] in Serum or Plasma [2345-7] 07/04/2024 10:33 AM 121 mg/dL N Blood chemistry[[id number]] Glucose [Mass/volume] in Serum or Plasma [2345-7] 07/04/2024 09:15 AM 128 mg/dL N Blood chemistry[[id number]] Glucose [Mass/volume] in Serum or Plasma [2345-7] 07/03/2024 12:59 PM 167 mg/dL N Blood chemistry[[id number]] Glucose [Mass/volume] in Serum or Plasma [2345-7] 07/03/2024 11:19 AM 125 mg/dL N Blood chemistry[[id number]] Glucose [Mass/volume] in Serum or Plasma [2345-7] 07/03/2024 05:30 PM 136 mg/dL N Blood chemistry[[id number]] Glucose [Mass/volume] in Serum or Plasma [2345-7] 07/03/2024 10:35 AM 121 mg/dL N Blood chemistry[[id number]] Glucose [Mass/volume] in Serum or Plasma [2345-7] 07/02/2024 12:51 PM 170 mg/dL N Blood chemistry[[id number]] Glucose [Mass/volume] in Serum or Plasma [2345-7] 07/02/2024 10:05 AM 178 mg/dL N Blood chemistry[[id number]] Glucose [Mass/volume] in Serum or Plasma [2345-7] 07/02/2024 10:34 AM 113 mg/dL N Blood chemistry[[id number]] Glucose [Mass/volume] in Serum or Plasma [2345-7] 07/02/2024 07:18 AM 133 mg/dL N Blood chemistry[[id number]] Glucose [Mass/volume] in Serum or Plasma [2345-7] 07/01/2024 01:13 PM 190 mg/dL N Blood chemistry[[id number]] Glucose [Mass/volume] in Serum or Plasma [2345-7] 07/01/2024 11:25 AM 146 mg/dL N Blood chemistry[[id number]] Glucose [Mass/volume] in Serum or Plasma [2345-7] 07/01/2024 06:22 PM 120 mg/dL N Blood chemistry[[id number]] Glucose [Mass/volume] in Serum or Plasma [2345-7] 07/01/2024 09:40 AM 134 mg/dL N Blood chemistry[[id number]] Glucose [Mass/volume] in Serum or Plasma [2345-7] 06/30/2024 06:13 PM 144 mg/dL N Blood chemistry[[id number]] Glucose [Mass/volume] in Serum or Plasma [2345-7] 06/30/2024 01:28 PM 126 mg/dL N Blood chemistry[[id number]] Glucose [Mass/volume] in Serum or Plasma [2345-7] 06/30/2024 10:02 AM 168 mg/dL N Blood chemistry[[id number]] Glucose [Mass/volume] in Serum or Plasma [2345-7] 06/30/2024 10:25 AM 103 mg/dL N Blood chemistry[[id number]] Glucose [Mass/volume] in Serum or Plasma [2345-7] 06/29/2024 01:19 PM 207 mg/dL N Blood chemistry[[id number]] Glucose [Mass/volume] in Serum or Plasma [2345-7] 06/29/2024 10:50 AM 139 mg/dL N Blood chemistry[[id number]] Glucose [Mass/volume] in Serum or Plasma [2345-7] 06/29/2024 05:56 PM 190 mg/dL N Blood chemistry[[id number]] Glucose [Mass/volume] in Serum or Plasma [2345-7] 06/29/2024 11:12 AM 103 mg/dL N Blood chemistry[[id number]] Glucose [Mass/volume] in Serum or Plasma [2345-7] 06/28/2024 01:02 PM 184 mg/dL N Blood chemistry[[id number]] Glucose [Mass/volume] in Serum or Plasma [2345-7] 06/28/2024 10:18 AM 131 mg/dL N Blood chemistry[[id number]] Glucose [Mass/volume] in Serum or Plasma [2345-7] 06/28/2024 04:32 PM 199 mg/dL N Blood chemistry[[id number]] Glucose [Mass/volume] in Serum or Plasma [2345-7] 06/28/2024 11:39 AM 130 mg/dL N Blood chemistry[[id number]] Glucose [Mass/volume] in Serum or Plasma [2345-7] 06/27/2024 10:57 AM 177 mg/dL N Blood chemistry[[id number]] Glucose [Mass/volume] in Serum or Plasma [2345-7] 06/27/2024 07:32 AM 108 mg/dL N Blood chemistry[[id number]] Glucose [Mass/volume] in Serum or Plasma [2345-7] 06/27/2024 10:31 AM 144 mg/dL N Blood chemistry[[id number]] Glucose [Mass/volume] in Serum or Plasma [2345-7] 06/26/2024 11:27 AM 132 mg/dL N Blood chemistry[[id number]] Glucose [Mass/volume] in Serum or Plasma [2345-7] 06/26/2024 05:51 PM 233 mg/dL N Blood chemistry[[id number]] Glucose [Mass/volume] in Serum or Plasma [2345-7] 06/26/2024 10:20 AM 123 mg/dL N Blood chemistry[[id number]] Glucose [Mass/volume] in Serum or Plasma [2345-7] 06/25/2024 06:26 PM 151 mg/dL N Blood chemistry[[id number]] Glucose [Mass/volume] in Serum or Plasma [2345-7] 06/25/2024 10:59 AM 134 mg/dL N Blood chemistry[[id number]] Glucose [Mass/volume] in Serum or Plasma [2345-7] 06/25/2024 10:19 AM 157 mg/dL N Blood chemistry[[id number]] Glucose [Mass/volume] in Serum or Plasma [2345-7] 06/24/2024 11:39 AM 146 mg/dL N Blood chemistry[[id number]] Glucose [Mass/volume] in Serum or Plasma [2345-7] 06/24/2024 10:55 AM 157 mg/dL N Blood chemistry[[id number]] Glucose [Mass/volume] in Serum or Plasma [2345-7] 06/24/2024 07:02 AM 139 mg/dL N Blood chemistry[[id number]] Glucose [Mass/volume] in Serum or Plasma [2345-7] 06/23/2024 06:54 PM 149 mg/dL N Blood chemistry[[id number]] Glucose [Mass/volume] in Serum or Plasma [2345-7] 06/23/2024 10:23 AM 153 mg/dL N Blood chemistry[[id number]] Glucose [Mass/volume] in Serum or Plasma [2345-7] 06/23/2024 10:49 AM 133 mg/dL N Blood chemistry[[id number]] Glucose [Mass/volume] in Serum or Plasma [2345-7] 06/22/2024 10:53 AM 173 mg/dL N Blood chemistry[[id number]] Glucose [Mass/volume] in Serum or Plasma [2345-7] 06/22/2024 06:38 PM 160 mg/dL N Blood chemistry[[id number]] Glucose [Mass/volume] in Serum or Plasma [2345-7] 06/22/2024 11:02 AM 151 mg/dL N Blood chemistry[[id number]] Glucose [Mass/volume] in Serum or Plasma [2345-7] 06/21/2024 06:37 PM 147 mg/dL N Blood chemistry[[id number]] Glucose [Mass/volume] in Serum or Plasma [2345-7] 06/21/2024 11:54 AM 111 mg/dL N Blood chemistry[[id number]] Glucose [Mass/volume] in Serum or Plasma [2345-7] 06/21/2024 10:40 AM 126 mg/dL N Blood chemistry[[id number]] Glucose [Mass/volume] in Serum or Plasma [2345-7] 06/20/2024 11:27 AM 182 mg/dL N Blood chemistry[[id number]] Glucose [Mass/volume] in Serum or Plasma [2345-7] 06/20/2024 06:15 PM 116 mg/dL N Blood chemistry[[id number]] Glucose [Mass/volume] in Serum or Plasma [2345-7] 06/20/2024 12:03 PM 151 mg/dL N Blood chemistry[[id number]] Glucose [Mass/volume] in Serum or Plasma [2345-7] 06/19/2024 11:12 AM 156 mg/dL N Blood chemistry[[id number]] Glucose [Mass/volume] in Serum or Plasma [2345-7] 06/19/2024 05:53 PM 157 mg/dL N Blood chemistry[[id number]] Glucose [Mass/volume] in Serum or Plasma [2345-7] 06/19/2024 11:06 AM 99 mg/dL N Blood chemistry[[id number]] Glucose [Mass/volume] in Serum or Plasma [2345-7] 06/18/2024 11:51 AM 229 mg/dL N Blood chemistry[[id number]] Glucose [Mass/volume] in Serum or Plasma [2345-7] 06/18/2024 05:26 PM 176 mg/dL N Blood chemistry[[id number]] Glucose [Mass/volume] in Serum or Plasma [2345-7] 06/18/2024 11:34 AM 122 mg/dL N Blood chemistry[[id number]] Glucose [Mass/volume] in Serum or Plasma [2345-7] 06/17/2024 10:46 AM 211 mg/dL N Blood chemistry[[id number]] Glucose [Mass/volume] in Serum or Plasma [2345-7] 06/17/2024 09:34 AM 211 mg/dL N Blood chemistry[[id number]] Glucose [Mass/volume] in Serum or Plasma [2345-7] 06/17/2024 06:11 PM 199 mg/dL N Blood chemistry[[id number]] Glucose [Mass/volume] in Serum or Plasma [2345-7] 06/17/2024 11:00 AM 179 mg/dL N Blood chemistry[[id number]] Glucose [Mass/volume] in Serum or Plasma [2345-7] 06/16/2024 06:15 PM 137 mg/dL N Blood chemistry[[id number]] Glucose [Mass/volume] in Serum or Plasma [2345-7] 06/16/2024 10:23 AM 372 mg/dL N Blood chemistry[[id number]] Glucose [Mass/volume] in Serum or Plasma [2345-7] 06/16/2024 10:35 AM 117 mg/dL N Blood chemistry[[id number]] Glucose [Mass/volume] in Serum or Plasma [2345-7] 06/15/2024 11:35 AM 145 mg/dL N Blood chemistry[[id number]] Glucose [Mass/volume] in Serum or Plasma [2345-7] 06/15/2024 04:54 PM 286 mg/dL N Blood chemistry[[id number]] Glucose [Mass/volume] in Serum or Plasma [2345-7] 06/15/2024 11:01 AM 127 mg/dL N Blood chemistry[[id number]] Glucose [Mass/volume] in Serum or Plasma [2345-7] 06/14/2024 05:10 PM 153 mg/dL N Blood chemistry[[id number]] Glucose [Mass/volume] in Serum or Plasma [2345-7] 06/14/2024 11:42 AM 117 mg/dL N Blood chemistry[[id number]] Glucose [Mass/volume] in Serum or Plasma [2345-7] 06/14/2024 10:23 AM 139 mg/dL N Blood chemistry[] Glucose [Mass/volume] in Serum or Plasma [2345-7] 06/13/2024 11:00 AM 109 mg/dL N Blood chemistry[] Glucose [Mass/volume] in Serum or Plasma [2345-7] 06/13/2024 06:00 PM 172 mg/dL N Blood chemistry[] Glucose [Mass/volume] in Serum or Plasma [2345-7] 06/13/2024 10:41 AM 161 mg/dL N Blood chemistry[] Glucose [Mass/volume] in Serum or Plasma [2345-7] 06/12/2024 05:09 PM 167 mg/dL N Blood chemistry[[id number]] Glucose [Mass/volume] in Serum or Plasma [2345-7] 06/12/2024 11:28 AM 182 mg/dL N Blood chemistry[] Glucose [Mass/volume] in Serum or Plasma [2345-7] 06/12/2024 11:05 AM 143 mg/dL N Blood chemistry[[id number]] Glucose [Mass/volume] in Serum or Plasma [2345-7] 06/11/2024 06:07 PM 90 mg/dL N Blood chemistry[[id number]] Glucose [Mass/volume] in Serum or Plasma [2345-7] 06/11/2024 11:02 AM 115 mg/dL N Blood chemistry[[id number]] Glucose [Mass/volume] in Serum or Plasma [2345-7] 06/11/2024 10:45 AM 113 mg/dL N Blood chemistry[[id number]] Glucose [Mass/volume] in Serum or Plasma [2345-7] 06/10/2024 05:57 PM 180 mg/dL N Blood chemistry[[id number]] Glucose [Mass/volume] in Serum or Plasma [2345-7] 06/10/2024 10:52 AM 143 mg/dL N Blood chemistry[[id number]] Glucose [Mass/volume] in Serum or Plasma [2345-7] 06/10/2024 09:54 AM 111 mg/dL N Blood chemistry[[id number]] Glucose [Mass/volume] in Serum or Plasma [2345-7] 06/09/2024 06:09 PM 136 mg/dL N Blood chemistry[[id number]] Glucose [Mass/volume] in Serum or Plasma [2345-7] 06/09/2024 06:08 PM 222 mg/dL N Blood chemistry[[id number]] Glucose [Mass/volume] in Serum or Plasma [2345-7] 06/09/2024 10:38 AM 205 mg/dL N Blood chemistry[[id number]] Glucose [Mass/volume] in Serum or Plasma [2345-7] 06/08/2024 05:58 PM 179 mg/dL N Blood chemistry[[id number]] Glucose [Mass/volume] in Serum or Plasma [2345-7] 06/08/2024 10:56 AM 169 mg/dL N Blood chemistry[[id number]] Glucose [Mass/volume] in Serum or Plasma [2345-7] 06/08/2024 11:05 AM 191 mg/dL N Blood chemistry[[id number]] Glucose [Mass/volume] in Serum or Plasma [2345-7] 06/07/2024 12:15 PM 174 mg/dL N Blood chemistry[[id number]] Glucose [Mass/volume] in Serum or Plasma [2345-7] 06/07/2024 06:38 PM 140 mg/dL N Blood chemistry[[id number]] Glucose [Mass/volume] in Serum or Plasma [2345-7] 06/07/2024 10:45 AM 124 mg/dL N Blood chemistry[[id number]] Glucose [Mass/volume] in Serum or Plasma [2345-7] 06/06/2024 06:50 PM 110 mg/dL N Blood chemistry[[id number]] Glucose [Mass/volume] in Serum or Plasma [2345-7] 06/06/2024 10:02 AM 128 mg/dL N Blood chemistry[[id number]] Glucose [Mass/volume] in Serum or Plasma [2345-7] 06/06/2024 10:01 AM 121 mg/dL N Blood chemistry[[id number]] Glucose [Mass/volume] in Serum or Plasma [2345-7] 06/06/2024 09:56 AM 121 mg/dL N Blood chemistry[[id number]] Glucose [Mass/volume] in Serum or Plasma [2345-7] 06/05/2024 06:09 PM 141 mg/dL N Blood chemistry[[id number]] Glucose [Mass/volume] in Serum or Plasma [2345-7] 06/05/2024 11:17 AM 129 mg/dL N Blood chemistry[[id number]] Glucose [Mass/volume] in Serum or Plasma [2345-7] 06/05/2024 10:24 AM 92 mg/dL N Blood chemistry[[id number]] Glucose [Mass/volume] in Serum or Plasma [2345-7] 06/04/2024 06:40 PM 117 mg/dL N Blood chemistry[[id number]] Glucose [Mass/volume] in Serum or Plasma [2345-7] 06/04/2024 11:19 AM 169 mg/dL N Blood chemistry[[id number]] Glucose [Mass/volume] in Serum or Plasma [2345-7] 06/04/2024 10:00 AM 98 mg/dL N Blood chemistry[[id number]] Glucose [Mass/volume] in Serum or Plasma [2345-7] 06/03/2024 05:45 PM 131 mg/dL N Blood chemistry[[id number]] Glucose [Mass/volume] in Serum or Plasma [2345-7] 06/03/2024 10:36 AM 162 mg/dL N Blood chemistry[[id number]] Glucose [Mass/volume] in Serum or Plasma [2345-7] 06/03/2024 10:24 AM 114 mg/dL N Blood chemistry[[id number]] Glucose [Mass/volume] in Serum or Plasma [2345-7] 06/02/2024 06:44 PM 175 mg/dL N Blood chemistry[[id number]] Glucose [Mass/volume] in Serum or Plasma [2345-7] 06/02/2024 11:03 AM 174 mg/dL N Blood chemistry[[id number]] Glucose [Mass/volume] in Serum or Plasma [2345-7] 06/02/2024 11:02 AM 174 mg/dL N Blood chemistry[[id number]] Glucose [Mass/volume] in Serum or Plasma [2345-7] 06/02/2024 10:00 AM 101 mg/dL N Blood chemistry[[id number]] Glucose [Mass/volume] in Serum or Plasma [2345-7] 06/01/2024 11:15 AM 126 mg/dL N Blood chemistry[[id number]] Glucose [Mass/volume] in Serum or Plasma [2345-7] 06/01/2024 04:59 PM 165 mg/dL N Blood chemistry[[id number]] Glucose [Mass/volume] in Serum or Plasma [2345-7] 06/01/2024 11:07 AM 121 mg/dL N Blood chemistry[[id number]] Glucose [Mass/volume] in Serum or Plasma [2345-7] 05/31/2024 10:33 AM 192 mg/dL N Blood chemistry[[id number]] Glucose [Mass/volume] in Serum or Plasma [2345-7] 05/31/2024 06:20 PM 154 mg/dL N Blood chemistry[[id number]] Glucose [Mass/volume] in Serum or Plasma [2345-7] 05/31/2024 11:14 AM 151 mg/dL N Blood chemistry[[id number]] Glucose [Mass/volume] in Serum or Plasma [2345-7] 05/30/2024 12:31 PM 167 mg/dL N Blood chemistry[[id number]] Glucose [Mass/volume] in Serum or Plasma [2345-7] 05/30/2024 06:56 PM 135 mg/dL N Blood chemistry[[id number]] Glucose [Mass/volume] in Serum or Plasma [2345-7] 05/30/2024 11:23 AM 113 mg/dL N Blood chemistry[[id number]] Glucose [Mass/volume] in Serum or Plasma [2345-7] 05/29/2024 11:49 AM 117 mg/dL N Blood chemistry[[id number]] Glucose [Mass/volume] in Serum or Plasma [2345-7] 05/29/2024 10:58 AM 177 mg/dL N Blood chemistry[[id number]] Glucose [Mass/volume] in Serum or Plasma [2345-7] 05/29/2024 10:57 AM 112 mg/dL N Blood chemistry[[id number]] Glucose [Mass/volume] in Serum or Plasma [2345-7] 05/28/2024 06:16 PM 134 mg/dL N Blood chemistry[[id number]] Glucose [Mass/volume] in Serum or Plasma [2345-7] 05/28/2024 10:51 AM 181 mg/dL N Blood chemistry[[id number]] Glucose [Mass/volume] in Serum or Plasma [2345-7] 05/28/2024 10:12 AM 111 mg/dL N Blood chemistry[[id number]] Glucose [Mass/volume] in Serum or Plasma [2345-7] 05/27/2024 06:28 PM 133 mg/dL N Blood chemistry[[id number]] Glucose [Mass/volume] in Serum or Plasma [2345-7] 05/27/2024 12:22 PM 113 mg/dL N Blood chemistry[[id number]] Glucose [Mass/volume] in Serum or Plasma [2345-7] 05/27/2024 10:59 AM 125 mg/dL N Blood chemistry[[id number]] Glucose [Mass/volume] in Serum or Plasma [2345-7] 05/26/2024 12:28 PM 151 mg/dL N Blood chemistry[[id number]] Glucose [Mass/volume] in Serum or Plasma [2345-7] 05/25/2024 05:33 PM 137 mg/dL N Blood chemistry[[id number]] Glucose [Mass/volume] in Serum or Plasma [2345-7] 05/25/2024 10:49 AM 130 mg/dL N Blood chemistry[[id number]] Glucose [Mass/volume] in Serum or Plasma [2345-7] 05/24/2024 10:37 AM 153 mg/dL N Blood chemistry[[id number]] Glucose [Mass/volume] in Serum or Plasma [2345-7] 05/24/2024 05:08 PM 146 mg/dL N Blood chemistry[[id number]] Glucose [Mass/volume] in Serum or Plasma [2345-7] 05/23/2024 05:50 PM 177 mg/dL N Blood chemistry[[id number]] Glucose [Mass/volume] in Serum or Plasma [2345-7] 05/23/2024 12:32 PM 164 mg/dL N Blood chemistry[[id number]] Glucose [Mass/volume] in Serum or Plasma [2345-7] 05/23/2024 11:12 AM 164 mg/dL N Blood chemistry[[id number]] Glucose [Mass/volume] in Serum or Plasma [2345-7] 05/23/2024 10:28 AM 121 mg/dL N Blood chemistry[[id number]] Glucose [Mass/volume] in Serum or Plasma [2345-7] 05/22/2024 05:41 PM 237 mg/dL N Blood chemistry[[id number]] Glucose [Mass/volume] in Serum or Plasma [2345-7] 05/22/2024 11:10 AM 130 mg/dL N Blood chemistry[[id number]] Glucose [Mass/volume] in Serum or Plasma [2345-7] 05/22/2024 10:52 AM 130 mg/dL N Blood chemistry[[id number]] Glucose [Mass/volume] in Serum or Plasma [2345-7] 05/22/2024 10:15 AM 90 mg/dL N Blood chemistry[[id number]] Glucose [Mass/volume] in Serum or Plasma [2345-7] 05/21/2024 06:09 PM 159 mg/dL N Blood chemistry[[id number]] Glucose [Mass/volume] in Serum or Plasma [2345-7] 05/21/2024 10:08 AM 100 mg/dL N Blood chemistry[[id number]] Glucose [Mass/volume] in Serum or Plasma [2345-7] 05/21/2024 09:43 AM 191 mg/dL N Blood chemistry[[id number]] Glucose [Mass/volume] in Serum or Plasma [2345-7] 05/20/2024 05:54 PM 135 mg/dL N Blood chemistry[[id number]] Glucose [Mass/volume] in Serum or Plasma [2345-7] 05/20/2024 11:20 AM 158 mg/dL N Blood chemistry[[id number]] Glucose [Mass/volume] in Serum or Plasma [2345-7] 05/20/2024 10:32 AM 113 mg/dL N Blood chemistry[[id number]] Glucose [Mass/volume] in Serum or Plasma [2345-7] 05/19/2024 05:41 PM 164 mg/dL N Blood chemistry[[id number]] Glucose [Mass/volume] in Serum or Plasma [2345-7] 05/19/2024 10:19 AM 208 mg/dL N Blood chemistry[[id number]] Glucose [Mass/volume] in Serum or Plasma [2345-7] 05/19/2024 11:23 AM 156 mg/dL N Blood chemistry[[id number]] Glucose [Mass/volume] in Serum or Plasma [2345-7] 05/18/2024 11:04 AM 137 mg/dL N Blood chemistry[[id number]] Glucose [Mass/volume] in Serum or Plasma [2345-7] 05/18/2024 05:36 PM 223 mg/dL N Blood chemistry[[id number]] Glucose [Mass/volume] in Serum or Plasma [2345-7] 05/18/2024 11:25 AM 119 mg/dL N Blood chemistry[[id number]] Glucose [Mass/volume] in Serum or Plasma [2345-7] 05/17/2024 05:19 PM 139 mg/dL N Blood chemistry[[id number]] Glucose [Mass/volume] in Serum or Plasma [2345-7] 05/17/2024 11:31 AM 165 mg/dL N Blood chemistry[[id number]] Glucose [Mass/volume] in Serum or Plasma [2345-7] 05/17/2024 11:28 AM 118 mg/dL N Blood chemistry[[id number]] Glucose [Mass/volume] in Serum or Plasma [2345-7] 05/16/2024 05:26 PM 124 mg/dL N Blood chemistry[[id number]] Glucose [Mass/volume] in Serum or Plasma [2345-7] 05/16/2024 11:43 AM 150 mg/dL N Blood chemistry[[id number]] Glucose [Mass/volume] in Serum or Plasma [2345-7] 05/16/2024 11:02 AM 137 mg/dL N Blood chemistry[[id number]] Glucose [Mass/volume] in Serum or Plasma [2345-7] 05/16/2024 10:45 AM 150 mg/dL N Blood chemistry[[id number]] Glucose [Mass/volume] in Serum or Plasma [2345-7] 05/15/2024 01:16 PM 140 mg/dL N Blood chemistry[[id number]] Glucose [Mass/volume] in Serum or Plasma [2345-7] 05/15/2024 10:36 AM 122 mg/dL N Blood chemistry[[id number]] Glucose [Mass/volume] in Serum or Plasma [2345-7] 05/15/2024 07:11 AM 135 mg/dL N Blood chemistry[[id number]] Glucose [Mass/volume] in Serum or Plasma [2345-7] 05/14/2024 05:27 PM 115 mg/dL N Blood chemistry[[id number]] Glucose [Mass/volume] in Serum or Plasma [2345-7] 05/14/2024 11:33 AM 183 mg/dL N Blood chemistry[[id number]] Glucose [Mass/volume] in Serum or Plasma [2345-7] 05/14/2024 10:14 AM 204 mg/dL N Blood chemistry[[id number]] Glucose [Mass/volume] in Serum or Plasma [2345-7] 05/13/2024 05:42 PM 176 mg/dL N Blood chemistry[[id number]] Glucose [Mass/volume] in Serum or Plasma [2345-7] 05/13/2024 10:35 AM 120 mg/dL N Blood chemistry[[id number]] Glucose [Mass/volume] in Serum or Plasma [2345-7] 05/13/2024 09:23 AM 155 mg/dL N Blood chemistry[[id number]] Glucose [Mass/volume] in Serum or Plasma [2345-7] 05/12/2024 05:30 PM 106 mg/dL N Blood chemistry[[id number]] Glucose [Mass/volume] in Serum or Plasma [2345-7] 05/12/2024 10:37 AM 113 mg/dL N Blood chemistry[[id number]] Glucose [Mass/volume] in Serum or Plasma [2345-7] 05/11/2024 06:43 PM 134 mg/dL N Blood chemistry[[id number]] Glucose [Mass/volume] in Serum or Plasma [2345-7] 05/11/2024 01:31 PM 109 mg/dL N Blood chemistry[[id number]] Glucose [Mass/volume] in Serum or Plasma [2345-7] 05/11/2024 10:35 AM 109 mg/dL N Blood chemistry[[id number]] Glucose [Mass/volume] in Serum or Plasma [2345-7] 05/10/2024 10:29 AM 146 mg/dL N Blood chemistry[[id number]] Glucose [Mass/volume] in Serum or Plasma [2345-7] 05/10/2024 05:15 PM 180 mg/dL N Blood chemistry[[id number]] Glucose [Mass/volume] in Serum or Plasma [2345-7] 05/10/2024 11:25 AM 105 mg/dL N Blood chemistry[[id number]] Glucose [Mass/volume] in Serum or Plasma [2345-7] 05/09/2024 05:59 PM 193 mg/dL N Blood chemistry[[id number]] Glucose [Mass/volume] in Serum or Plasma [2345-7] 05/09/2024 10:37 AM 141 mg/dL N Blood chemistry[[id number]] Glucose [Mass/volume] in Serum or Plasma [2345-7] 05/09/2024 10:14 AM 88 mg/dL N Blood chemistry[[id number]] Glucose [Mass/volume] in Serum or Plasma [2345-7] 05/08/2024 06:55 PM 134 mg/dL N Blood chemistry[[id number]] Glucose [Mass/volume] in Serum or Plasma [2345-7] 05/08/2024 10:06 AM 66 mg/dL N Blood chemistry[[id number]] Glucose [Mass/volume] in Serum or Plasma [2345-7] 05/08/2024 10:04 AM 176 mg/dL N Blood chemistry[[id number]] Glucose [Mass/volume] in Serum or Plasma [2345-7] 05/08/2024 09:36 AM 176 mg/dL N Blood chemistry[[id number]] Glucose [Mass/volume] in Serum or Plasma [2345-7] 05/07/2024 10:44 AM 149 mg/dL N Blood chemistry[[id number]] Glucose [Mass/volume] in Serum or Plasma [2345-7] 05/07/2024 10:13 AM 74 mg/dL N Blood chemistry[[id number]] Glucose [Mass/volume] in Serum or Plasma [2345-7] 05/07/2024 08:39 AM 81 mg/dL N Blood chemistry[[id number]] Glucose [Mass/volume] in Serum or Plasma [2345-7] 05/06/2024 05:57 PM 89 mg/dL N Blood chemistry[[id number]] Glucose [Mass/volume] in Serum or Plasma [2345-7] 05/06/2024 11:16 AM 79 mg/dL N Blood chemistry[[id number]] Glucose [Mass/volume] in Serum or Plasma [2345-7] 05/06/2024 10:41 AM 187 mg/dL N Blood chemistry[[id number]] Glucose [Mass/volume] in Serum or Plasma [2345-7] 05/05/2024 11:31 AM 143 mg/dL N Blood chemistry[[id number]] Glucose [Mass/volume] in Serum or Plasma [2345-7] 05/05/2024 10:53 AM 189 mg/dL N Blood chemistry[[id number]] Glucose [Mass/volume] in Serum or Plasma [2345-7] 05/05/2024 10:52 AM 189 mg/dL N Blood chemistry[[id number]] Glucose [Mass/volume] in Serum or Plasma [2345-7] 05/04/2024 06:42 PM 161 mg/dL N Blood chemistry[[id number]] Glucose [Mass/volume] in Serum or Plasma [2345-7] 05/04/2024 10:53 AM 137 mg/dL N Blood chemistry[[id number]] Glucose [Mass/volume] in Serum or Plasma [2345-7] 05/04/2024 11:35 AM 89 mg/dL N Blood chemistry[[id number]] Glucose [Mass/volume] in Serum or Plasma [2345-7] 05/03/2024 10:31 AM 135 mg/dL N Blood chemistry[[id number]] Glucose [Mass/volume] in Serum or Plasma [2345-7] 05/03/2024 05:36 PM 127 mg/dL N Blood chemistry[[id number]] Glucose [Mass/volume] in Serum or Plasma [2345-7] 05/03/2024 11:43 AM 108 mg/dL N Blood chemistry[[id number]] Glucose [Mass/volume] in Serum or Plasma [2345-7] 05/02/2024 05:45 PM 116 mg/dL N Blood chemistry[[id number]] Glucose [Mass/volume] in Serum or Plasma [2345-7] 05/02/2024 10:46 AM 161 mg/dL N Blood chemistry[[id number]] Glucose [Mass/volume] in Serum or Plasma [2345-7] 05/02/2024 10:38 AM 92 mg/dL N Blood chemistry[[id number]] Glucose [Mass/volume] in Serum or Plasma [2345-7] 05/01/2024 05:20 PM 195 mg/dL N Blood chemistry[[id number]] Glucose [Mass/volume] in Serum or Plasma [2345-7] 05/01/2024 10:25 AM 136 mg/dL N Blood chemistry[[id number]] Glucose [Mass/volume] in Serum or Plasma [2345-7] 05/01/2024 10:13 AM 332 mg/dL N Blood chemistry[[id number]] Glucose [Mass/volume] in Serum or Plasma [2345-7] 04/30/2024 12:13 PM 107 mg/dL N Blood chemistry[[id number]] Glucose [Mass/volume] in Serum or Plasma [2345-7] 04/30/2024 06:39 PM 165 mg/dL N Blood chemistry[[id number]] Glucose [Mass/volume] in Serum or Plasma [2345-7] 04/30/2024 10:00 AM 110 mg/dL N Blood chemistry[[id number]] Glucose [Mass/volume] in Serum or Plasma [2345-7] 04/29/2024 05:52 PM 142 mg/dL N Blood chemistry[[id number]] Glucose [Mass/volume] in Serum or Plasma [2345-7] 04/29/2024 10:44 AM 155 mg/dL N Blood chemistry[[id number]] Glucose [Mass/volume] in Serum or Plasma [2345-7] 04/29/2024 10:41 AM 155 mg/dL N Blood chemistry[[id number]] Glucose [Mass/volume] in Serum or Plasma [2345-7] 04/29/2024 10:00 AM 123 mg/dL N Blood chemistry[[id number]] Glucose [Mass/volume] in Serum or Plasma [2345-7] 04/28/2024 06:06 PM 147 mg/dL N Blood chemistry[[id number]] Glucose [Mass/volume] in Serum or Plasma [2345-7] 04/28/2024 11:31 AM 209 mg/dL N Blood chemistry[[id number]] Glucose [Mass/volume] in Serum or Plasma [2345-7] 04/28/2024 11:04 AM 144 mg/dL N Glucose [Mass/volume] in Serum or Plasma [2345-7] 04/28/2024 11:04 AM 144 mg/dL N Blood chemistry[[id number]] Glucose [Mass/volume] in Serum or Plasma [2345-7] 04/27/2024 12:25 PM 166 mg/dL N Blood chemistry[[id number]] Glucose [Mass/volume] in Serum or Plasma [2345-7] 04/27/2024 07:43 AM 139 mg/dL N Blood chemistry[[id number]] Glucose [Mass/volume] in Serum or Plasma [2345-7] 04/27/2024 10:28 AM 151 mg/dL N Blood chemistry[[id number]] Glucose [Mass/volume] in Serum or Plasma [2345-7] 04/26/2024 11:46 AM 135 mg/dL N Blood chemistry[[id number]] Glucose [Mass/volume] in Serum or Plasma [2345-7] 04/26/2024 11:45 AM 135 mg/dL N Blood chemistry[[id number]] Glucose [Mass/volume] in Serum or Plasma [2345-7] 04/26/2024 11:43 AM 117 mg/dL N Blood chemistry[[id number]] Glucose [Mass/volume] in Serum or Plasma [2345-7] 04/26/2024 11:00 AM 157 mg/dL N Blood chemistry[[id number]] Glucose [Mass/volume] in Serum or Plasma [2345-7] 04/25/2024 10:20 AM 127 mg/dL N Blood chemistry[[id number]] Glucose [Mass/volume] in Serum or Plasma [2345-7] 04/25/2024 09:34 AM 213 mg/dL N Blood chemistry[[id number]] Glucose [Mass/volume] in Serum or Plasma [2345-7] 04/24/2024 05:13 PM 161 mg/dL N Blood chemistry[[id number]] Glucose [Mass/volume] in Serum or Plasma [2345-7] 04/24/2024 10:29 AM 171 mg/dL N Blood chemistry[[id number]] Glucose [Mass/volume] in Serum or Plasma [2345-7] 04/24/2024 10:09 AM 161 mg/dL N Blood chemistry[[id number]] Glucose [Mass/volume] in Serum or Plasma [2345-7] 04/23/2024 10:29 AM 159 mg/dL N Blood chemistry[[id number]] Glucose [Mass/volume] in Serum or Plasma [2345-7] 04/23/2024 05:15 PM 224 mg/dL N Blood chemistry[[id number]] Glucose [Mass/volume] in Serum or Plasma [2345-7] 04/23/2024 10:18 AM 158 mg/dL N Blood chemistry[[id number]] Glucose [Mass/volume] in Serum or Plasma [2345-7] 04/22/2024 05:16 PM 143 mg/dL N Blood chemistry[[id number]] Glucose [Mass/volume] in Serum or Plasma [2345-7] 04/22/2024 10:14 AM 128 mg/dL N Blood chemistry[[id number]] Glucose [Mass/volume] in Serum or Plasma [2345-7] 04/21/2024 05:50 PM 150 mg/dL N Blood chemistry[[id number]] Glucose [Mass/volume] in Serum or Plasma [2345-7] 04/21/2024 01:46 PM 130 mg/dL N Blood chemistry[[id number]] Glucose [Mass/volume] in Serum or Plasma [2345-7] 04/21/2024 10:15 AM 183 mg/dL N Blood chemistry[[id number]] Glucose [Mass/volume] in Serum or Plasma [2345-7] 04/21/2024 10:14 AM 183 mg/dL N Blood chemistry[[id number]] Glucose [Mass/volume] in Serum or Plasma [2345-7] 04/20/2024 06:24 PM 156 mg/dL N Blood chemistry[[id number]] Glucose [Mass/volume] in Serum or Plasma [2345-7] 04/20/2024 10:32 AM 182 mg/dL N Blood chemistry[[id number]] Glucose [Mass/volume] in Serum or Plasma [2345-7] 04/20/2024 10:47 AM 124 mg/dL N Blood chemistry[[id number]] Glucose [Mass/volume] in Serum or Plasma [2345-7] 04/19/2024 09:40 AM 139 mg/dL N Blood chemistry[[id number]] Glucose [Mass/volume] in Serum or Plasma [2345-7] 04/19/2024 05:28 PM 179 mg/dL N Blood chemistry[[id number]] Glucose [Mass/volume] in Serum or Plasma [2345-7] 04/18/2024 06:27 PM 127 mg/dL N Blood chemistry[[id number]] Glucose [Mass/volume] in Serum or Plasma [2345-7] 04/18/2024 12:32 PM 104 mg/dL N Blood chemistry[[id number]] Glucose [Mass/volume] in Serum or Plasma [2345-7] 04/18/2024 10:25 AM 109 mg/dL N Blood chemistry[[id number]] Glucose [Mass/volume] in Serum or Plasma [2345-7] 04/17/2024 11:23 AM 171 mg/dL N Blood chemistry[[id number]] Glucose [Mass/volume] in Serum or Plasma [2345-7] 04/17/2024 11:10 AM 171 mg/dL N Blood chemistry[[id number]] Glucose [Mass/volume] in Serum or Plasma [2345-7] 04/12/2024 08:23 AM 141 mg/dL N Blood chemistry[[id number]] Glucose [Mass/volume] in Serum or Plasma [2345-7] 04/11/2024 06:56 PM 139 mg/dL N Blood chemistry[[id number]] Glucose [Mass/volume] in Serum or Plasma [2345-7] 04/11/2024 12:04 PM 183 mg/dL N Blood chemistry[[id number]] Glucose [Mass/volume] in Serum or Plasma [2345-7] 04/11/2024 10:02 AM 94 mg/dL N Blood chemistry[[id number]] Glucose [Mass/volume] in Serum or Plasma [2345-7] 04/10/2024 04:54 PM 217 mg/dL N Blood chemistry[[id number]] Glucose [Mass/volume] in Serum or Plasma [2345-7] 04/10/2024 10:28 AM 138 mg/dL N Blood chemistry[[id number]] Glucose [Mass/volume] in Serum or Plasma [2345-7] 04/10/2024 10:34 AM 133 mg/dL N Blood chemistry[[id number]] Glucose [Mass/volume] in Serum or Plasma [2345-7] 04/09/2024 10:23 AM 145 mg/dL N Blood chemistry[[id number]] Glucose [Mass/volume] in Serum or Plasma [2345-7] 04/09/2024 10:00 AM 223 mg/dL N Blood chemistry[[id number]] Glucose [Mass/volume] in Serum or Plasma [2345-7] 04/09/2024 07:04 AM 126 mg/dL N Blood chemistry[[id number]] Glucose [Mass/volume] in Serum or Plasma [2345-7] 04/08/2024 06:11 PM 211 mg/dL N Blood chemistry[[id number]] Glucose [Mass/volume] in Serum or Plasma [2345-7] 04/08/2024 05:42 PM 249 mg/dL N Blood chemistry[[id number]] Glucose [Mass/volume] in Serum or Plasma [2345-7] 04/08/2024 10:45 AM 212 mg/dL N Blood chemistry[[id number]] Glucose [Mass/volume] in Serum or Plasma [2345-7] 04/08/2024 10:22 AM 159 mg/dL N Blood chemistry[[id number]] Glucose [Mass/volume] in Serum or Plasma [2345-7] 04/07/2024 05:47 PM 139 mg/dL N Blood chemistry[[id number]] Glucose [Mass/volume] in Serum or Plasma [2345-7] 04/07/2024 11:20 AM 150 mg/dL N Blood chemistry[[id number]] Glucose [Mass/volume] in Serum or Plasma [2345-7] 04/07/2024 10:34 AM 252 mg/dL N Blood chemistry[[id number]] Glucose [Mass/volume] in Serum or Plasma [2345-7] 04/06/2024 04:55 PM 170 mg/dL N Blood chemistry[[id number]] Glucose [Mass/volume] in Serum or Plasma [2345-7] 04/06/2024 10:50 AM 184 mg/dL N Blood chemistry[[id number]] Glucose [Mass/volume] in Serum or Plasma [2345-7] 04/06/2024 09:50 AM 215 mg/dL N Blood chemistry[[id number]] Glucose [Mass/volume] in Serum or Plasma [2345-7] 04/05/2024 05:13 PM 212 mg/dL N Blood chemistry[[id number]] Glucose [Mass/volume] in Serum or Plasma [2345-7] 04/05/2024 10:51 AM 145 mg/dL N Blood chemistry[[id number]] Glucose [Mass/volume] in Serum or Plasma [2345-7] 04/05/2024 10:27 AM 145 mg/dL N Blood chemistry[[id number]] Glucose [Mass/volume] in Serum or Plasma [2345-7] 04/04/2024 06:01 PM 109 mg/dL N Blood chemistry[[id number]] Glucose [Mass/volume] in Serum or Plasma [2345-7] 04/04/2024 11:25 AM 116 mg/dL N Blood chemistry[[id number]] Glucose [Mass/volume] in Serum or Plasma [2345-7] 04/04/2024 10:14 AM 104 mg/dL N Blood chemistry[[id number]] Glucose [Mass/volume] in Serum or Plasma [2345-7] 04/03/2024 04:52 PM 219 mg/dL N Blood chemistry[[id number]] Glucose [Mass/volume] in Serum or Plasma [2345-7] 04/03/2024 12:27 PM 133 mg/dL N Blood chemistry[[id number]] Glucose [Mass/volume] in Serum or Plasma [2345-7] 04/03/2024 12:25 PM 170 mg/dL N Blood chemistry[[id number]] Glucose [Mass/volume] in Serum or Plasma [2345-7] 04/03/2024 11:00 AM 172 mg/dL N Blood chemistry[[id number]] Glucose [Mass/volume] in Serum or Plasma [2345-7] 04/02/2024 12:34 PM 178 mg/dL N Blood chemistry[[id number]] Glucose [Mass/volume] in Serum or Plasma [2345-7] 04/02/2024 11:15 AM 124 mg/dL N Blood chemistry[[id number]] Glucose [Mass/volume] in Serum or Plasma [2345-7] 03/29/2024 11:42 AM 178 mg/dL N Blood chemistry[[id number]] Glucose [Mass/volume] in Serum or Plasma [2345-7] 03/29/2024 11:00 AM 190 mg/dL N Blood chemistry[[id number]] Glucose [Mass/volume] in Serum or Plasma [2345-7] 03/29/2024 10:15 AM 205 mg/dL N Blood chemistry[[id number]] Glucose [Mass/volume] in Serum or Plasma [2345-7] 03/28/2024 12:10 PM 387 mg/dL N Blood chemistry[[id number]] Glucose [Mass/volume] in Serum or Plasma [2345-7] 03/28/2024 10:18 AM 236 mg/dL N Blood chemistry[[id number]] Glucose [Mass/volume] in Serum or Plasma [2345-7] 03/28/2024 08:22 AM 186 mg/dL N Blood chemistry[[id number]] Glucose [Mass/volume] in Serum or Plasma [2345-7] 2024 05:18 PM 270 mg/dL N Blood chemistry[[id number]] Glucose [Mass/volume] in Serum or Plasma [2345-7] 2024 11:06 AM 119 mg/dL N Blood chemistry[[id number]] Glucose [Mass/volume] in Serum or Plasma [2345-7] 2024 10:49 AM 206 mg/dL N Blood chemistry[[id number]] Glucose [Mass/volume] in Serum or Plasma [2345-7] 03/26/2024 05:13 PM 216 mg/dL N Blood chemistry[[id number]] Glucose [Mass/volume] in Serum or Plasma [2345-7] 03/26/2024 10:35 AM 199 mg/dL N Blood chemistry[[id number]] Glucose [Mass/volume] in Serum or Plasma [2345-7] 03/26/2024 10:32 AM 152 mg/dL N Blood chemistry[[id number]] Glucose [Mass/volume] in Serum or Plasma [2345-7] 03/25/2024 11:27 AM 259 mg/dL N Blood chemistry[[id number]] Glucose [Mass/volume] in Serum or Plasma [2345-7] 03/25/2024 10:09 AM 221 mg/dL N Blood chemistry[[id number]] Glucose [Mass/volume] in Serum or Plasma [2345-7] 03/25/2024 08:13 AM 165 mg/dL N Blood chemistry[[id number]] Glucose [Mass/volume] in Serum or Plasma [2345-7] 03/24/2024 05:15 PM 345 mg/dL N Blood chemistry[[id number]] Glucose [Mass/volume] in Serum or Plasma [2345-7] 03/24/2024 11:48 AM 130 mg/dL N Blood chemistry[[id number]] Glucose [Mass/volume] in Serum or Plasma [2345-7] 03/24/2024 10:37 AM 177 mg/dL N Blood chemistry[[id number]] Glucose [Mass/volume] in Serum or Plasma [2345-7] 03/23/2024 05:49 PM 197 mg/dL N Blood chemistry[[id number]] Glucose [Mass/volume] in Serum or Plasma [2345-7] 03/23/2024 11:16 AM 244 mg/dL N Blood chemistry[[id number]] Glucose [Mass/volume] in Serum or Plasma [2345-7] 03/23/2024 10:21 AM 264 mg/dL N Blood chemistry[[id number]] Glucose [Mass/volume] in Serum or Plasma [2345-7] 03/19/2024 10:27 AM 146 mg/dL N Blood chemistry[[id number]] Glucose [Mass/volume] in Serum or Plasma [2345-7] 03/18/2024 05:33 PM 276 mg/dL N Blood chemistry[[id number]] Glucose [Mass/volume] in Serum or Plasma [2345-7] 03/18/2024 11:39 AM 141 mg/dL N Blood chemistry[[id number]] Glucose [Mass/volume] in Serum or Plasma [2345-7] 03/18/2024 10:23 AM 162 mg/dL N Blood chemistry[[id number]] Glucose [Mass/volume] in Serum or Plasma [2345-7] 03/17/2024 05:55 PM 135 mg/dL N Blood chemistry[[id number]] Glucose [Mass/volume] in Serum or Plasma [2345-7] 03/17/2024 11:42 AM 135 mg/dL N Blood chemistry[[id number]] Glucose [Mass/volume] in Serum or Plasma [2345-7] 03/16/2024 05:48 PM 160 mg/dL N Blood chemistry[[id number]] Glucose [Mass/volume] in Serum or Plasma [2345-7] 03/16/2024 11:33 AM 190 mg/dL N Blood chemistry[[id number]] Glucose [Mass/volume] in Serum or Plasma [2345-7] 03/16/2024 10:48 AM 177 mg/dL N Blood chemistry[[id number]] Glucose [Mass/volume] in Serum or Plasma [2345-7] 03/15/2024 05:53 PM 198 mg/dL N Blood chemistry[[id number]] Glucose [Mass/volume] in Serum or Plasma [2345-7] 03/15/2024 11:35 AM 135 mg/dL N Blood chemistry[[id number]] Glucose [Mass/volume] in Serum or Plasma [2345-7] 03/15/2024 10:40 AM 120 mg/dL N Blood chemistry[[id number]] Glucose [Mass/volume] in Serum or Plasma [2345-7] 03/14/2024 05:51 PM 148 mg/dL N Blood chemistry[[id number]] Glucose [Mass/volume] in Serum or Plasma [2345-7] 03/14/2024 11:00 AM 213 mg/dL N Blood chemistry[[id number]] Glucose [Mass/volume] in Serum or Plasma [2345-7] 03/14/2024 10:10 AM 82 mg/dL N Blood chemistry[[id number]] Glucose [Mass/volume] in Serum or Plasma [2345-7] 03/13/2024 05:48 PM 180 mg/dL N Blood chemistry[[id number]] Glucose [Mass/volume] in Serum or Plasma [2345-7] 03/13/2024 10:32 AM 74 mg/dL N Blood chemistry[[id number]] Glucose [Mass/volume] in Serum or Plasma [2345-7] 03/13/2024 10:29 AM 153 mg/dL N Blood chemistry[[id number]] Glucose [Mass/volume] in Serum or Plasma [2345-7] 03/12/2024 05:26 PM 92 mg/dL N Blood chemistry[[id number]] Glucose [Mass/volume] in Serum or Plasma [2345-7] 03/12/2024 11:09 AM 163 mg/dL N Blood chemistry[[id number]] Glucose [Mass/volume] in Serum or Plasma [2345-7] 03/12/2024 10:05 AM 115 mg/dL N Blood chemistry[[id number]] Glucose [Mass/volume] in Serum or Plasma [2345-7] 03/11/2024 04:36 PM 195 mg/dL N Blood chemistry[[id number]] Glucose [Mass/volume] in Serum or Plasma [2345-7] 03/11/2024 11:21 AM 94 mg/dL N Blood chemistry[[id number]] Glucose [Mass/volume] in Serum or Plasma [2345-7] 03/11/2024 09:52 AM 154 mg/dL N Blood chemistry[[id number]] Glucose [Mass/volume] in Serum or Plasma [2345-7] 03/10/2024 05:35 PM 101 mg/dL N Blood chemistry[[id number]] Glucose [Mass/volume] in Serum or Plasma [2345-7] 03/10/2024 10:54 AM 115 mg/dL N Glucose [Mass/volume] in Serum or Plasma [2345-7] 03/10/2024 10:54 AM 114 mg/dL N Blood chemistry[[id number]] Glucose [Mass/volume] in Serum or Plasma [2345-7] 03/10/2024 09:31 AM 157 mg/dL N Blood chemistry[[id number]] Glucose [Mass/volume] in Serum or Plasma [2345-7] 03/09/2024 10:35 AM 130 mg/dL N Blood chemistry[[id number]] Glucose [Mass/volume] in Serum or Plasma [2345-7] 03/08/2024 05:11 PM 143 mg/dL N Blood chemistry[[id number]] Glucose [Mass/volume] in Serum or Plasma [2345-7] 03/08/2024 11:10 AM 115 mg/dL N Blood chemistry[[id number]] Glucose [Mass/volume] in Serum or Plasma [2345-7] 03/08/2024 10:26 AM 127 mg/dL N Blood chemistry[[id number]] Glucose [Mass/volume] in Serum or Plasma [2345-7] 03/07/2024 06:21 PM 116 mg/dL N Blood chemistry[[id number]] Glucose [Mass/volume] in Serum or Plasma [2345-7] 03/07/2024 12:24 PM 121 mg/dL N Blood chemistry[[id number]] Glucose [Mass/volume] in Serum or Plasma [2345-7] 03/07/2024 10:15 AM 137 mg/dL N Blood chemistry[[id number]] Glucose [Mass/volume] in Serum or Plasma [2345-7] 03/06/2024 04:51 PM 156 mg/dL N Blood chemistry[[id number]] Glucose [Mass/volume] in Serum or Plasma [2345-7] 03/06/2024 12:06 PM 91 mg/dL N Blood chemistry[[id number]] Glucose [Mass/volume] in Serum or Plasma [2345-7] 03/05/2024 06:12 PM 224 mg/dL N Blood chemistry[[id number]] Glucose [Mass/volume] in Serum or Plasma [2345-7] 03/05/2024 11:24 AM 134 mg/dL N Blood chemistry[[id number]] Glucose [Mass/volume] in Serum or Plasma [2345-7] 03/05/2024 10:04 AM 115 mg/dL N Blood chemistry[[id number]] Glucose [Mass/volume] in Serum or Plasma [2345-7] 03/04/2024 12:47 PM 128 mg/dL N Blood chemistry[[id number]] Glucose [Mass/volume] in Serum or Plasma [2345-7] 03/04/2024 10:57 AM 85 mg/dL N Blood chemistry[[id number]] Glucose [Mass/volume] in Serum or Plasma [2345-7] 03/04/2024 10:37 AM 189 mg/dL N Blood chemistry[[id number]] Glucose [Mass/volume] in Serum or Plasma [2345-7] 03/03/2024 01:49 PM 104 mg/dL N Blood chemistry[[id number]] Glucose [Mass/volume] in Serum or Plasma [2345-7] 03/03/2024 11:21 AM 162 mg/dL N Blood chemistry[[id number]] Glucose [Mass/volume] in Serum or Plasma [2345-7] 03/03/2024 07:25 AM 142 mg/dL N Blood chemistry[[id number]] Glucose [Mass/volume] in Serum or Plasma [2345-7] 03/02/2024 05:17 PM 155 mg/dL N Blood chemistry[[id number]] Glucose [Mass/volume] in Serum or Plasma [2345-7] 03/02/2024 11:09 AM 98 mg/dL N Blood chemistry[[id number]] Glucose [Mass/volume] in Serum or Plasma [2345-7] 03/02/2024 10:53 AM 125 mg/dL N Blood chemistry[[id number]] Glucose [Mass/volume] in Serum or Plasma [2345-7] 03/01/2024 04:53 PM 120 mg/dL N Blood chemistry[[id number]] Glucose [Mass/volume] in Serum or Plasma [2345-7] 03/01/2024 10:21 AM 81 mg/dL N Blood chemistry[[id number]] Glucose [Mass/volume] in Serum or Plasma [2345-7] 03/01/2024 09:13 AM 108 mg/dL N Blood chemistry[[id number]] Glucose [Mass/volume] in Serum or Plasma [2345-7] 02/29/2024 05:06 PM 138 mg/dL N Blood chemistry[[id number]] Glucose [Mass/volume] in Serum or Plasma [2345-7] 02/29/2024 09:14 AM 91 mg/dL N Blood chemistry[[id number]] Glucose [Mass/volume] in Serum or Plasma [2345-7] 02/29/2024 09:06 AM 131 mg/dL N Blood chemistry[[id number]] Glucose [Mass/volume] in Serum or Plasma [2345-7] 02/28/2024 05:55 PM 98 mg/dL N Blood chemistry[[id number]] Glucose [Mass/volume] in Serum or Plasma [2345-7] 02/28/2024 09:24 AM 177 mg/dL N Blood chemistry[[id number]] Glucose [Mass/volume] in Serum or Plasma [2345-7] 02/28/2024 09:01 AM 93 mg/dL N Blood chemistry[[id number]] Glucose [Mass/volume] in Serum or Plasma [2345-7] 02/27/2024 09:04 AM 73 mg/dL N Blood chemistry[[id number]] Glucose [Mass/volume] in Serum or Plasma [2345-7] 02/27/2024 08:56 AM 138 mg/dL N Blood chemistry[[id number]] Glucose [Mass/volume] in Serum or Plasma [2345-7] 02/26/2024 04:41 PM 149 mg/dL N Blood chemistry[[id number]] Glucose [Mass/volume] in Serum or Plasma [2345-7] 02/26/2024 09:32 AM 83 mg/dL N Blood chemistry[[id number]] Glucose [Mass/volume] in Serum or Plasma [2345-7] 02/25/2024 04:42 PM 170 mg/dL N Blood chemistry[[id number]] Glucose [Mass/volume] in Serum or Plasma [2345-7] 02/25/2024 10:15 AM 100 mg/dL N Blood chemistry[[id number]] Glucose [Mass/volume] in Serum or Plasma [2345-7] 02/25/2024 09:05 AM 179 mg/dL N Blood chemistry[[id number]] Glucose [Mass/volume] in Serum or Plasma [2345-7] 02/24/2024 04:20 PM 129 mg/dL N Blood chemistry[[id number]] Glucose [Mass/volume] in Serum or Plasma [2345-7] 02/24/2024 09:24 AM 122 mg/dL N Blood chemistry[[id number]] Glucose [Mass/volume] in Serum or Plasma [2345-7] 02/23/2024 11:46 AM 131 mg/dL N Blood chemistry[[id number]] Glucose [Mass/volume] in Serum or Plasma [2345-7] 02/23/2024 10:15 AM 150 mg/dL N Blood chemistry[[id number]] Glucose [Mass/volume] in Serum or Plasma [2345-7] 02/23/2024 06:49 AM 188 mg/dL N Blood chemistry[[id number]] Glucose [Mass/volume] in Serum or Plasma [2345-7] 02/22/2024 10:09 AM 127 mg/dL N Glucose [Mass/volume] in Serum or Plasma [2345-7] 02/22/2024 10:09 AM 113 mg/dL N Blood chemistry[[id number]] Glucose [Mass/volume] in Serum or Plasma [2345-7] 02/22/2024 10:00 AM 201 mg/dL N Blood chemistry[[id number]] Glucose [Mass/volume] in Serum or Plasma [2345-7] 02/21/2024 04:32 PM 173 mg/dL N Blood chemistry[[id number]] Glucose [Mass/volume] in Serum or Plasma [2345-7] 02/21/2024 09:34 AM 105 mg/dL N Blood chemistry[[id number]] Glucose [Mass/volume] in Serum or Plasma [2345-7] 02/21/2024 09:29 AM 145 mg/dL N Blood chemistry[[id number]] Glucose [Mass/volume] in Serum or Plasma [2345-7] 02/20/2024 05:33 PM 182 mg/dL N Blood chemistry[[id number]] Glucose [Mass/volume] in Serum or Plasma [2345-7] 02/20/2024 10:03 AM 103 mg/dL N Blood chemistry[[id number]] Glucose [Mass/volume] in Serum or Plasma [2345-7] 02/20/2024 09:11 AM 106 mg/dL N Blood chemistry[[id number]] Glucose [Mass/volume] in Serum or Plasma [2345-7] 02/19/2024 05:45 PM 184 mg/dL N Blood chemistry[[id number]] Glucose [Mass/volume] in Serum or Plasma [2345-7] 02/19/2024 11:28 AM 162 mg/dL N Blood chemistry[[id number]] Glucose [Mass/volume] in Serum or Plasma [2345-7] 02/19/2024 09:10 AM 85 mg/dL N Blood chemistry[[id number]] Glucose [Mass/volume] in Serum or Plasma [2345-7] 02/18/2024 05:26 PM 167 mg/dL N COVID-19 Test Viral Antigen null flavor [null] 02/18/2024 05:00 PM See note NEG COVID-19 Test Viral Antigen Blood chemistry[[id number]] Glucose [Mass/volume] in Serum or Plasma [2345-7] 02/18/2024 10:00 AM 150 mg/dL N Glucose [Mass/volume] in Serum or Plasma [2345-7] 02/18/2024 10:00 AM 109 mg/dL N Blood chemistry[[id number]] Glucose [Mass/volume] in Serum or Plasma [2345-7] 02/17/2024 05:04 PM 150 mg/dL N Blood chemistry[[id number]] Glucose [Mass/volume] in Serum or Plasma [2345-7] 02/17/2024 10:53 AM 213 mg/dL N Blood chemistry[[id number]] Glucose [Mass/volume] in Serum or Plasma [2345-7] 02/17/2024 09:56 AM 169 mg/dL N Blood chemistry[[id number]] Glucose [Mass/volume] in Serum or Plasma [2345-7] 02/16/2024 04:48 PM 173 mg/dL N Blood chemistry[[id number]] Glucose [Mass/volume] in Serum or Plasma [2345-7] 02/16/2024 11:16 AM 90 mg/dL N Blood chemistry[[id number]] Glucose [Mass/volume] in Serum or Plasma [2345-7] 02/16/2024 11:15 AM 136 mg/dL N Blood chemistry[[id number]] Glucose [Mass/volume] in Serum or Plasma [2345-7] 02/15/2024 05:02 PM 113 mg/dL N Blood chemistry[[id number]] Glucose [Mass/volume] in Serum or Plasma [2345-7] 02/15/2024 09:20 AM 217 mg/dL N Blood chemistry[[id number]] Glucose [Mass/volume] in Serum or Plasma [2345-7] 02/15/2024 09:14 AM 127 mg/dL N Blood chemistry[[id number]] Glucose [Mass/volume] in Serum or Plasma [2345-7] 02/14/2024 04:58 PM 153 mg/dL N Blood chemistry[[id number]] Glucose [Mass/volume] in Serum or Plasma [2345-7] 02/14/2024 09:30 AM 127 mg/dL N Blood chemistry[[id number]] Glucose [Mass/volume] in Serum or Plasma [2345-7] 02/14/2024 09:20 AM 140 mg/dL N Blood chemistry[[id number]] Glucose [Mass/volume] in Serum or Plasma [2345-7] 02/13/2024 05:14 PM 126 mg/dL N Blood chemistry[[id number]] Glucose [Mass/volume] in Serum or Plasma [2345-7] 02/13/2024 09:13 AM 138 mg/dL N Blood chemistry[[id number]] Glucose [Mass/volume] in Serum or Plasma [2345-7] 02/13/2024 09:00 AM 91 mg/dL N Blood chemistry[[id number]] Glucose [Mass/volume] in Serum or Plasma [2345-7] 02/12/2024 05:17 PM 203 mg/dL N Blood chemistry[[id number]] Glucose [Mass/volume] in Serum or Plasma [2345-7] 02/12/2024 09:18 AM 122 mg/dL N COVID-19 Test Viral Antigen null flavor [null] 02/11/2024 05:00 PM See note NEG COVID-19 Test Viral Antigen Blood chemistry[[id number]] Glucose [Mass/volume] in Serum or Plasma [2345-7] 02/11/2024 04:49 PM 162 mg/dL N Blood chemistry[[id number]] Glucose [Mass/volume] in Serum or Plasma [2345-7] 02/11/2024 08:50 AM 166 mg/dL N Blood chemistry[[id number]] Glucose [Mass/volume] in Serum or Plasma [2345-7] 02/10/2024 04:32 PM 191 mg/dL N Blood chemistry[[id number]] Glucose [Mass/volume] in Serum or Plasma [2345-7] 02/10/2024 10:03 AM 133 mg/dL N Blood chemistry[[id number]] Glucose [Mass/volume] in Serum or Plasma [2345-7] 02/10/2024 09:52 AM 175 mg/dL N Blood chemistry[[id number]] Glucose [Mass/volume] in Serum or Plasma [2345-7] 02/09/2024 04:25 PM 179 mg/dL N Blood chemistry[[id number]] Glucose [Mass/volume] in Serum or Plasma [2345-7] 02/09/2024 10:07 AM 148 mg/dL N Blood chemistry[[id number]] Glucose [Mass/volume] in Serum or Plasma [2345-7] 02/09/2024 09:39 AM 144 mg/dL N Blood chemistry[[id number]] Glucose [Mass/volume] in Serum or Plasma [2345-7] 02/08/2024 05:45 PM 220 mg/dL N Blood chemistry[[id number]] Glucose [Mass/volume] in Serum or Plasma [2345-7] 02/08/2024 10:01 AM 246 mg/dL N Blood chemistry[[id number]] Glucose [Mass/volume] in Serum or Plasma [2345-7] 02/08/2024 08:59 AM 187 mg/dL N Blood chemistry[[id number]] Glucose [Mass/volume] in Serum or Plasma [2345-7] 02/07/2024 10:50 AM 176 mg/dL N Blood chemistry[[id number]] Glucose [Mass/volume] in Serum or Plasma [2345-7] 02/07/2024 09:10 AM 189 mg/dL N Blood chemistry[[id number]] Glucose [Mass/volume] in Serum or Plasma [2345-7] 02/06/2024 05:08 PM 167 mg/dL N Blood chemistry[[id number]] Glucose [Mass/volume] in Serum or Plasma [2345-7] 02/06/2024 11:23 AM 185 mg/dL N Blood chemistry[[id number]] Glucose [Mass/volume] in Serum or Plasma [2345-7] 02/06/2024 10:10 AM 139 mg/dL N Blood chemistry[[id number]] Glucose [Mass/volume] in Serum or Plasma [2345-7] 02/05/2024 05:51 PM 209 mg/dL N Blood chemistry[[id number]] Glucose [Mass/volume] in Serum or Plasma [2345-7] 02/05/2024 09:33 AM 136 mg/dL N Blood chemistry[[id number]] Glucose [Mass/volume] in Serum or Plasma [2345-7] 02/05/2024 09:18 AM 170 mg/dL N Blood chemistry[[id number]] Glucose [Mass/volume] in Serum or Plasma [2345-7] 02/04/2024 05:03 PM 133 mg/dL N COVID-19 Test Viral Antigen null flavor [null] 02/04/2024 05:00 PM See note NEG COVID-19 Test Viral Antigen Blood chemistry[[id number]] Glucose [Mass/volume] in Serum or Plasma [2345-7] 02/04/2024 10:43 AM 127 mg/dL N Blood chemistry[[id number]] Glucose [Mass/volume] in Serum or Plasma [2345-7] 02/04/2024 09:36 AM 178 mg/dL N Blood chemistry[[id number]] Glucose [Mass/volume] in Serum or Plasma [2345-7] 02/03/2024 04:49 PM 239 mg/dL N Blood chemistry[[id number]] Glucose [Mass/volume] in Serum or Plasma [2345-7] 02/03/2024 10:01 AM 111 mg/dL N Blood chemistry[[id number]] Glucose [Mass/volume] in Serum or Plasma [2345-7] 02/03/2024 09:17 AM 160 mg/dL N Blood chemistry[[id number]] Glucose [Mass/volume] in Serum or Plasma [2345-7] 02/02/2024 05:35 PM 308 mg/dL N Blood chemistry[[id number]] Glucose [Mass/volume] in Serum or Plasma [2345-7] 02/02/2024 11:24 AM 133 mg/dL N Blood chemistry[[id number]] Glucose [Mass/volume] in Serum or Plasma [2345-7] 02/02/2024 11:00 AM 150 mg/dL N Blood chemistry[[id number]] Glucose [Mass/volume] in Serum or Plasma [2345-7] 02/01/2024 05:23 PM 142 mg/dL N Blood chemistry[[id number]] Glucose [Mass/volume] in Serum or Plasma [2345-7] 02/01/2024 11:18 AM 197 mg/dL N Blood chemistry[[id number]] Glucose [Mass/volume] in Serum or Plasma [2345-7] 02/01/2024 10:35 AM 151 mg/dL N Blood chemistry[[id number]] Glucose [Mass/volume] in Serum or Plasma [2345-7] 01/31/2024 03:45 PM 255 mg/dL N Blood chemistry[[id number]] Glucose [Mass/volume] in Serum or Plasma [2345-7] 01/31/2024 10:09 AM 181 mg/dL N Blood chemistry[[id number]] Glucose [Mass/volume] in Serum or Plasma [2345-7] 01/31/2024 09:03 AM 106 mg/dL N Blood chemistry[[id number]] Glucose [Mass/volume] in Serum or Plasma [2345-7] 01/30/2024 04:42 PM 193 mg/dL N Blood chemistry[[id number]] Glucose [Mass/volume] in Serum or Plasma [2345-7] 01/30/2024 09:07 AM 217 mg/dL N Blood chemistry[[id number]] Glucose [Mass/volume] in Serum or Plasma [2345-7] 01/30/2024 08:58 AM 177 mg/dL N Blood chemistry[[id number]] Glucose [Mass/volume] in Serum or Plasma [2345-7] 01/29/2024 05:48 PM 247 mg/dL N Blood chemistry[[id number]] Glucose [Mass/volume] in Serum or Plasma [2345-7] 01/29/2024 10:22 AM 141 mg/dL N Blood chemistry[[id number]] Glucose [Mass/volume] in Serum or Plasma [2345-7] 01/29/2024 09:45 AM 122 mg/dL N Blood chemistry[[id number]] Glucose [Mass/volume] in Serum or Plasma [2345-7] 01/28/2024 05:28 PM 171 mg/dL N COVID-19 Test Viral Antigen null flavor [null] 01/28/2024 05:00 PM See note NEG COVID-19 Test Viral Antigen Blood chemistry[[id number]] Glucose [Mass/volume] in Serum or Plasma [2345-7] 01/28/2024 09:49 AM 183 mg/dL N Blood chemistry[[id number]] Glucose [Mass/volume] in Serum or Plasma [2345-7] 01/28/2024 09:25 AM 198 mg/dL N Blood chemistry[[id number]] Glucose [Mass/volume] in Serum or Plasma [2345-7] 01/27/2024 04:35 PM 224 mg/dL N Blood chemistry[[id number]] Glucose [Mass/volume] in Serum or Plasma [2345-7] 01/27/2024 09:34 AM 164 mg/dL N Blood chemistry[[id number]] Glucose [Mass/volume] in Serum or Plasma [2345-7] 01/27/2024 08:14 AM 139 mg/dL N Blood chemistry[[id number]] Glucose [Mass/volume] in Serum or Plasma [2345-7] 01/26/2024 04:20 PM 241 mg/dL N Blood chemistry[[id number]] Glucose [Mass/volume] in Serum or Plasma [2345-7] 01/26/2024 10:08 AM 183 mg/dL N Blood chemistry[[id number]] Glucose [Mass/volume] in Serum or Plasma [2345-7] 01/26/2024 09:37 AM 151 mg/dL N Blood chemistry[[id number]] Glucose [Mass/volume] in Serum or Plasma [2345-7] 01/25/2024 05:11 PM 209 mg/dL N Blood chemistry[[id number]] Glucose [Mass/volume] in Serum or Plasma [2345-7] 01/25/2024 11:11 AM 191 mg/dL N Blood chemistry[[id number]] Glucose [Mass/volume] in Serum or Plasma [2345-7] 01/25/2024 09:26 AM 148 mg/dL N Blood chemistry[[id number]] Glucose [Mass/volume] in Serum or Plasma [2345-7] 01/24/2024 05:56 PM 173 mg/dL N Blood chemistry[[id number]] Glucose [Mass/volume] in Serum or Plasma [2345-7] 01/24/2024 09:57 AM 200 mg/dL N Blood chemistry[[id number]] Glucose [Mass/volume] in Serum or Plasma [2345-7] 01/24/2024 09:19 AM 235 mg/dL N Blood chemistry[[id number]] Glucose [Mass/volume] in Serum or Plasma [2345-7] 01/23/2024 04:03 PM 260 mg/dL N Blood chemistry[[id number]] Glucose [Mass/volume] in Serum or Plasma [2345-7] 01/23/2024 09:39 AM 161 mg/dL N Blood chemistry[[id number]] Glucose [Mass/volume] in Serum or Plasma [2345-7] 01/22/2024 04:29 PM 320 mg/dL N Blood chemistry[[id number]] Glucose [Mass/volume] in Serum or Plasma [2345-7] 01/22/2024 09:57 AM 165 mg/dL N Blood chemistry[[id number]] Glucose [Mass/volume] in Serum or Plasma [2345-7] 01/22/2024 09:01 AM 157 mg/dL N COVID-19 Test Viral Antigen null flavor [null] 01/21/2024 05:00 PM See note NEG COVID-19 Test Viral Antigen Blood chemistry[[id number]] Glucose [Mass/volume] in Serum or Plasma [2345-7] 01/21/2024 10:33 AM 180 mg/dL N Blood chemistry[[id number]] Glucose [Mass/volume] in Serum or Plasma [2345-7] 01/21/2024 09:32 AM 153 mg/dL N Blood chemistry[[id number]] Glucose [Mass/volume] in Serum or Plasma [2345-7] 01/21/2024 08:25 AM 165 mg/dL N Blood chemistry[[id number]] Glucose [Mass/volume] in Serum or Plasma [2345-7] 01/20/2024 05:06 PM 245 mg/dL N Blood chemistry[[id number]] Glucose [Mass/volume] in Serum or Plasma [2345-7] 01/20/2024 11:08 AM 122 mg/dL N Blood chemistry[[id number]] Glucose [Mass/volume] in Serum or Plasma [2345-7] 01/19/2024 05:44 PM 205 mg/dL N Blood chemistry[[id number]] Glucose [Mass/volume] in Serum or Plasma [2345-7] 01/19/2024 09:26 AM 92 mg/dL N Blood chemistry[[id number]] Glucose [Mass/volume] in Serum or Plasma [2345-7] 01/18/2024 04:49 PM 122 mg/dL N Blood chemistry[[id number]] Glucose [Mass/volume] in Serum or Plasma [2345-7] 01/18/2024 10:23 AM 221 mg/dL N Blood chemistry[[id number]] Glucose [Mass/volume] in Serum or Plasma [2345-7] 01/18/2024 09:01 AM 183 mg/dL N Blood chemistry[[id number]] Glucose [Mass/volume] in Serum or Plasma [2345-7] 01/17/2024 04:58 PM 239 mg/dL N Blood chemistry[[id number]] Glucose [Mass/volume] in Serum or Plasma [2345-7] 01/17/2024 10:08 AM 103 mg/dL N Blood chemistry[[id number]] Glucose [Mass/volume] in Serum or Plasma [2345-7] 01/17/2024 09:00 AM 151 mg/dL N Blood chemistry[[id number]] Glucose [Mass/volume] in Serum or Plasma [2345-7] 01/16/2024 05:19 PM 199 mg/dL N Blood chemistry[[id number]] Glucose [Mass/volume] in Serum or Plasma [2345-7] 01/16/2024 09:22 AM 150 mg/dL N Blood chemistry[[id number]] Glucose [Mass/volume] in Serum or Plasma [2345-7] 01/16/2024 09:12 AM 127 mg/dL N Blood chemistry[[id number]] Glucose [Mass/volume] in Serum or Plasma [2345-7] 01/15/2024 04:32 PM 177 mg/dL N Blood chemistry[[id number]] Glucose [Mass/volume] in Serum or Plasma [2345-7] 01/15/2024 10:03 AM 147 mg/dL N COVID-19 Test Viral Antigen null flavor [null] 01/14/2024 05:00 PM See note NEG COVID-19 Test Viral Antigen Blood chemistry[[id number]] Glucose [Mass/volume] in Serum or Plasma [2345-7] 01/14/2024 04:59 PM 185 mg/dL N Blood chemistry[[id number]] Glucose [Mass/volume] in Serum or Plasma [2345-7] 01/14/2024 09:50 AM 236 mg/dL N Blood chemistry[[id number]] Glucose [Mass/volume] in Serum or Plasma [2345-7] 01/14/2024 09:35 AM 197 mg/dL N Blood chemistry[[id number]] Glucose [Mass/volume] in Serum or Plasma [2345-7] 01/13/2024 04:09 PM 222 mg/dL N Blood chemistry[[id number]] Glucose [Mass/volume] in Serum or Plasma [2345-7] 01/13/2024 10:01 AM 202 mg/dL N Blood chemistry[[id number]] Glucose [Mass/volume] in Serum or Plasma [2345-7] 01/13/2024 09:35 AM 170 mg/dL N Blood chemistry[[id number]] Glucose [Mass/volume] in Serum or Plasma [2345-7] 01/12/2024 11:00 AM 171 mg/dL N Blood chemistry[[id number]] Glucose [Mass/volume] in Serum or Plasma [2345-7] 01/12/2024 09:56 AM 226 mg/dL N Blood chemistry[[id number]] Glucose [Mass/volume] in Serum or Plasma [2345-7] 01/12/2024 06:56 AM 239 mg/dL N Blood chemistry[[id number]] Glucose [Mass/volume] in Serum or Plasma [2345-7] 01/11/2024 05:23 PM 157 mg/dL N Blood chemistry[[id number]] Glucose [Mass/volume] in Serum or Plasma [2345-7] 01/11/2024 09:59 AM 172 mg/dL N Blood chemistry[[id number]] Glucose [Mass/volume] in Serum or Plasma [2345-7] 01/11/2024 09:40 AM 178 mg/dL N Blood chemistry[[id number]] Glucose [Mass/volume] in Serum or Plasma [2345-7] 01/10/2024 04:43 PM 224 mg/dL N Blood chemistry[[id number]] Glucose [Mass/volume] in Serum or Plasma [2345-7] 01/10/2024 10:36 AM 201 mg/dL N Blood chemistry[[id number]] Glucose [Mass/volume] in Serum or Plasma [2345-7] 01/10/2024 09:11 AM 179 mg/dL N Allergies, adverse reactions, alerts No known allergies and adverse reactions Immunizations Vaccine Route Date Status RSV Vaccine Unassigned Route of Administration 2024 Completed Influenza Vaccine Unassigned Route of Administration 0 01/21/2025 Completed Medications Medication Instructions Route Dosage Frequency [...] Every 6 Hours oral 1.0 6.0 h 06/06/ 2025 Active alprazolam 0.5 mg tablet (alprazolam) 1 [...] Twice A Day oral 1.0 12.0 h 01/19 Active fluoxetine 40 mg capsule (fluoxetine) 1, [...] Blood Sugar is greater than 400, call . subcutane ous 1.0 2024 Active Lantus Solostar [...] pain exempt R52 oral 1.0 6.0 h 01/19 Active simvastatin 40 mg tablet (simvastatin) 1 [...] R52 oral 1.0 6.0 h 12/16 Active oxycodone 5 mg tablet (oxycodone) 2 tab, oral, Every 6 Hours - PRN, pain exempt R52 oral 1.0 6.0 h 02/02 Active Eliquis (apixaban) 5 mg tablet (Eliquis (apixaban)) 1 tab, oral, Twice A Day oral 1.0 12.0 h 2024 Active Afluria 5975-4248 (3yr up)(PF) (flu vac [id number] 36mos up(pf)) 45 mcg (15 mcg x 3)/0.5 m syringe (Afluria (3yr up)(PF) (flu vac [id number] 36mos up(pf))) 0.5ml, intramuscular , Once - One Time intramusc ular 1.0 01/21 Active tramadol 50 mg tablet (tramadol) 1-2 tab t= 50mg-100mg, oral, Every 8 Hours - PRN, clinical indication: pain oral 1.0 8.0 h 01/21 Active oxycodone 5 mg tablet (oxycodone) 1, oral, Every 6 Hours - PRN, pain exempt R52 oral 1.0 6.0 h 2024 Active Vital Signs Date Vital Result Comment 05/28/2024 06:24 PM Body Weight (64046-3) 220.4 [lb_av ] Body Mass Index (96173-1) 34.52 kg/m2 05/28/2024 04:50 PM Temperature (8310-5) 98.3 [degF] Oxygen Saturation (10426-5) 98 % Respiratory Rate (9279-1) 18 /min Heart Rate (8867-4) 51 /min Blood Pressure Systolic (8480-6) 94 mm[Hg] Blood Pressure Diastolic (8462-4) 56 mm[Hg] 05/31/2024 12:20 PM Body Weight (61092-1) 224.8 [lb_av ] Body Mass Index (17820-3) 35.2 kg/m2 06/02/2024 05:30 PM Body Weight (10040-1) 222.4 [lb_av ] Body Mass Index (69573-9) 34.83 kg/m2 06/04/2024 05:20 PM Body Weight (04898-4) 240 [lb_av] Body Mass Index (17868-1) 37.59 kg/m2 06/04/2024 05:19 PM Temperature (8310-5) 98 [degF] Oxygen Saturation (36674-0) 97 % Respiratory Rate (9279-1) 17 /min Heart Rate (8867-4) 59 /min Blood Pressure Systolic (8480-6) 96 mm[Hg] Blood Pressure Diastolic (8462-4) 58 mm[Hg] 06/04/2024 12:41 PM Body Weight (36949-3) 240 [lb_av] Body Mass Index (90825-1) 37.59 kg/m2 06/05/2024 03:27 PM Body Weight (52189-2) 234.6 [lb_av ] Body Mass Index (77079-3) 36.74 kg/m2 06/11/2024 06:01 PM Body Weight (43451-2) 240.1 [lb_av ] Body Mass Index (25544-8) 37.6 kg/m2 06/11/2024 04:59 PM Temperature (8310-5) 97 [degF] Oxygen Saturation (37068-8) 96 % Respiratory Rate (9279-1) 18 /min Heart Rate (8867-4) 77 /min Blood Pressure Systolic (8480-6) 148 mm[Hg] Blood Pressure Diastolic (8462-4) 72 mm[Hg] 06/11/2024 01:34 PM Body Weight (03566-0) 239.8 [lb_av ] Body Mass Index (43187-4) 37.55 kg/m2 06/12/2024 07:40 PM Temperature (8310-5) 98.7 [degF] Oxygen Saturation (40816-2) 93 % Respiratory Rate (9279-1) 19 /min Heart Rate (8867-4) 72 /min Blood Pressure Systolic (8480-6) 142 mm[Hg] Blood Pressure Diastolic (8462-4) 68 mm[Hg] 06/12/2024 09:45 AM Temperature (8310-5) 98.9 [degF] Oxygen Saturation (91655-8) 95 % Respiratory Rate (9279-1) 16 /min Heart Rate (8867-4) 78 /min Blood Pressure Systolic (8480-6) 118 mm[Hg] Blood Pressure Diastolic (8462-4) 50 mm[Hg] 06/13/2024 02:33 PM Temperature (8310-5) 98.4 [degF] Oxygen Saturation (98720-5) 92 % Respiratory Rate (9279-1) 18 /min Heart Rate (8867-4) 68 /min Blood Pressure Systolic (8480-6) 107 mm[Hg] Blood Pressure Diastolic (8462-4) 58 mm[Hg] 06/14/2024 10:12 AM Oxygen Saturation (19947-8) 98 % 06/14/2024 10:11 AM Temperature (8310-5) 98.2 [degF] Respiratory Rate (9279-1) 19 /min Heart Rate (8867-4) 72 /min Blood Pressure Systolic (8480-6) 118 mm[Hg] Blood Pressure Diastolic (8462-4) 64 mm[Hg] 06/15/2024 05:40 PM Temperature (8310-5) 98.6 [degF] Oxygen Saturation (89903-9) 97 % Respiratory Rate (9279-1) 18 /min Heart Rate (8867-4) 68 /min Blood Pressure Systolic (8480-6) 131 mm[Hg] Blood Pressure Diastolic (8462-4) 70 mm[Hg] 06/16/2024 12:39 PM Temperature (8310-5) 97.8 [degF] Oxygen Saturation (04956-8) 98 % Respiratory Rate (9279-1) 19 /min Heart Rate (8867-4) 67 /min Blood Pressure Systolic (8480-6) 98 mm[Hg] Blood Pressure Diastolic (8462-4) 58 mm[Hg] 06/18/2024 09:27 AM Temperature (8310-5) 98.6 [degF] Oxygen Saturation (51753-9) 97 % Respiratory Rate (9279-1) 16 /min Heart Rate (8867-4) 71 /min Blood Pressure Systolic (8480-6) 154 mm[Hg] Blood Pressure Diastolic (8462-4) 93 mm[Hg] 06/19/2024 02:50 PM Blood Pressure Systolic (8480-6) 1 08 mm[Hg] Blood Pressure Diastolic (8462-4) 55 mm[Hg] 06/19/2024 12:15 PM Temperature (8310-5) 98 [degF] Oxygen Saturation (31443-3) 91 % Respiratory Rate (9279-1) 18 /min Heart Rate (8867-4) 68 /min 06/20/2024 05:04 PM Temperature (8310-5) 98.9 [degF] Oxygen Saturation (41994-8) 95 % Respiratory Rate (9279-1) 16 /min Heart Rate (8867-4) 78 /min Blood Pressure Systolic (8480-6) 118 mm[Hg] Blood Pressure Diastolic (8462-4) 50 mm[Hg] 06/21/2024 12:37 PM Temperature (8310-5) 97.9 [degF] Oxygen Saturation (13059-8) 90 % Respiratory Rate (9279-1) 14 /min Heart Rate (8867-4) 67 /min Blood Pressure Systolic (8480-6) 103 mm[Hg] Blood Pressure Diastolic (8462-4) 59 mm[Hg] 06/22/2024 02:45 PM Temperature (8310-5) 97.6 [degF] Oxygen Saturation (18346-5) 91 % Respiratory Rate (9279-1) 18 /min Heart Rate (8867-4) 74 /min Blood Pressure Systolic (8480-6) 132 mm[Hg] Blood Pressure Diastolic (8462-4) 66 mm[Hg] 06/23/2024 04:22 PM Temperature (8310-5) 98.3 [degF] Oxygen Saturation (40236-4) 94 % Respiratory Rate (9279-1) 17 /min Heart Rate (8867-4) 69 /min Blood Pressure Systolic (8480-6) 119 mm[Hg] Blood Pressure Diastolic (8462-4) 60 mm[Hg] 06/24/2024 09:22 AM Temperature (8310-5) 98.9 [degF] Oxygen Saturation (57282-0) 99 % Respiratory Rate (9279-1) 19 /min Heart Rate (8867-4) 87 /min Blood Pressure Systolic (8480-6) 137 mm[Hg] Blood Pressure Diastolic (8462-4) 76 mm[Hg] 06/25/2024 05:02 PM Temperature (8310-5) 98.3 [degF] Oxygen Saturation (34567-8) 96 % Respiratory Rate (9279-1) 18 /min Heart Rate (8867-4) 74 /min Blood Pressure Systolic (8480-6) 134 mm[Hg] Blood Pressure Diastolic (8462-4) 76 mm[Hg] 06/26/2024 01:41 PM Temperature (8310-5) 98 [degF] Oxygen Saturation (24935-1) 97 % Respiratory Rate (9279-1) 16 /min Heart Rate (8867-4) 72 /min Blood Pressure Systolic (8480-6) 140 mm[Hg] Blood Pressure Diastolic (8462-4) 77 mm[Hg] 06/26/2024 08:58 AM Body Weight (56005-4) 237.3 [lb_av ] Body Mass Index (00427-0) 37.16 kg/m2 06/27/2024 04:47 PM Body Weight (31218-5) 238.8 [lb_av ] Body Mass Index (75105-5) 37.4 kg/m2 06/27/2024 03:42 PM Temperature (8310-5) 97.5 [degF] Oxygen Saturation (06902-9) 95 % Respiratory Rate (9279-1) 18 /min Heart Rate (8867-4) 77 /min Blood Pressure Systolic (8480-6) 131 mm[Hg] Blood Pressure Diastolic (8462-4) 70 mm[Hg] 06/28/2024 10:51 AM Body Weight (46739-1) 231.2 [lb_av ] Body Mass Index (92087-3) 36.21 kg/m2 06/28/2024 09:44 AM Temperature (8310-5) 98.6 [degF] Oxygen Saturation (90303-3) 91 % Respiratory Rate (9279-1) 20 /min Heart Rate (8867-4) 77 /min Blood Pressure Systolic (8480-6) 149 mm[Hg] Blood Pressure Diastolic (8462-4) 81 mm[Hg] 06/29/2024 08:59 AM Oxygen Saturation (58570-3) 92 % 06/29/2024 08:58 AM Temperature (8310-5) 98 [degF] Respiratory Rate (9279-1) 16 /min Heart Rate (8867-4) 83 /min Blood Pressure Systolic (8480-6) 138 mm[Hg] Blood Pressure Diastolic (8462-4) 63 mm[Hg] 06/30/2024 07:27 PM Oxygen Saturation (42003-2) 98 % 06/30/2024 12:13 PM Temperature (8310-5) 97.5 [degF] Oxygen Saturation (53539-9) 94 % Respiratory Rate (9279-1) 19 /min Heart Rate (8867-4) 75 /min Blood Pressure Systolic (8480-6) 154 mm[Hg] Blood Pressure Diastolic (8462-4) 80 mm[Hg] 06/30/2024 11:41 AM Body Weight (66151-2) 236.06 [lb_a v] Body Mass Index (65586-8) 36.97 kg/m2 07/01/2024 08:57 AM Temperature (8310-5) 98.2 [degF] Oxygen Saturation (45068-0) 97 % Respiratory Rate (9279-1) 20 /min Heart Rate (8867-4) 77 /min Blood Pressure Systolic (8480-6) 136 mm[Hg] Blood Pressure Diastolic (8462-4) 66 mm[Hg] 07/02/2024 01:22 PM Body Weight (00962-8) 233.8 [lb_av ] Body Mass Index (11391-0) 36.61 kg/m2 07/02/2024 01:19 PM Temperature (8310-5) 98.9 [degF] Oxygen Saturation (13829-0) 96 % Respiratory Rate (9279-1) 19 /min Heart Rate (8867-4) 81 /min Blood Pressure Systolic (8480-6) 168 mm[Hg] Blood Pressure Diastolic (8462-4) 73 mm[Hg] 07/01/2024 08:43 PM Oxygen Saturation (48041-9) 95 % 07/03/2024 12:17 PM Temperature (8310-5) 97.8 [degF] Oxygen Saturation (52262-2) 93 % Respiratory Rate (9279-1) 19 /min Heart Rate (8867-4) 72 /min Blood Pressure Systolic (8480-6) 115 mm[Hg] Blood Pressure Diastolic (8462-4) 72 mm[Hg] 07/02/2024 07:50 PM Oxygen Saturation (18295-3) 98 % 07/04/2024 01:19 PM Oxygen Saturation (90891-3) 95 % 07/04/2024 01:18 PM Temperature (8310-5) 98.1 [degF] Oxygen Saturation (99229-9) 95 % Respiratory Rate (9279-1) 19 /min Heart Rate (8867-4) 84 /min Blood Pressure Systolic (8480-6) 107 mm[Hg] Blood Pressure Diastolic (8462-4) 68 mm[Hg] 07/03/2024 09:01 PM Oxygen Saturation (07129-9) 95 % 07/04/2024 07:42 PM Oxygen Saturation (81527-1) 97 % 07/05/2024 07:39 PM Oxygen Saturation (48452-1) 95 % 07/05/2024 11:56 AM Oxygen Saturation (78544-3) 98 % 07/05/2024 11:55 AM Temperature (8310-5) 98.6 [degF] Respiratory Rate (9279-1) 18 /min Heart Rate (8867-4) 74 /min Blood Pressure Systolic (8480-6) 112 mm[Hg] Blood Pressure Diastolic (8462-4) 66 mm[Hg] 07/06/2024 10:03 AM Oxygen Saturation (60946-9) 94 % 07/06/2024 10:02 AM Temperature (8310-5) 98.6 [degF] Oxygen Saturation (03121-0) 94 % Respiratory Rate (9279-1) 19 /min Heart Rate (8867-4) 84 /min Blood Pressure Systolic (8480-6) 143 mm[Hg] Blood Pressure Diastolic (8462-4) 61 mm[Hg] 07/06/2024 08:51 PM Oxygen Saturation (02810-0) 97 % 07/07/2024 09:15 PM Oxygen Saturation (60014-6) 95 % 07/07/2024 12:53 PM Temperature (8310-5) 98.2 [degF] Oxygen Saturation (13609-1) 94 % Respiratory Rate (9279-1) 18 /min Heart Rate (8867-4) 79 /min Blood Pressure Systolic (8480-6) 132 mm[Hg] Blood Pressure Diastolic (8462-4) 65 mm[Hg] 07/08/2024 09:21 AM Temperature (8310-5) 97.1 [degF] Oxygen Saturation (57160-1) 98 % Respiratory Rate (9279-1) 18 /min Heart Rate (8867-4) 71 /min Blood Pressure Systolic (8480-6) 117 mm[Hg] Blood Pressure Diastolic (8462-4) 61 mm[Hg] 07/08/2024 07:20 PM Oxygen Saturation (89438-6) 94 % 07/09/2024 11:45 AM Oxygen Saturation (28296-2) 96 % 07/09/2024 10:24 AM Body Weight (18437-9) 226.4 [lb_av ] Body Mass Index (61062-9) 35.46 kg/m2 07/09/2024 11:47 AM Temperature (8310-5) 97.1 [degF] Respiratory Rate (9279-1) 21 /min Heart Rate (8867-4) 66 /min Blood Pressure Systolic (8480-6) 132 mm[Hg] Blood Pressure Diastolic (8462-4) 65 mm[Hg] 07/09/2024 06:42 PM Oxygen Saturation (95956-0) 96 % 07/10/2024 12:35 PM Oxygen Saturation (10066-7) 98 % 07/10/2024 12:34 PM Oxygen Saturation (47563-3) 98 % Blood Pressure Systolic (8480-6) 147 mm[Hg] Blood Pressure Diastolic (8462-4) 82 mm[Hg] 07/10/2024 12:32 PM Temperature (8310-5) 98.3 [degF] Respiratory Rate (9279-1) 18 /min Heart Rate (8867-4) 65 /min 07/10/2024 10:32 PM Oxygen Saturation (35925-3) 96 % 07/11/2024 04:03 PM Temperature (8310-5) 97.7 [degF] Oxygen Saturation (07828-4) 96 % Respiratory Rate (9279-1) 16 /min Heart Rate (8867-4) 90 /min Blood Pressure Systolic (8480-6) 150 mm[Hg] Blood Pressure Diastolic (8462-4) 84 mm[Hg] 07/11/2024 08:02 PM Oxygen Saturation (08449-2) 95 % 07/12/2024 09:12 AM Temperature (8310-5) 98.9 [degF] Oxygen Saturation (14236-4) 99 % Respiratory Rate (9279-1) 16 /min Heart Rate (8867-4) 63 /min Blood Pressure Systolic (8480-6) 132 mm[Hg] Blood Pressure Diastolic (8462-4) 72 mm[Hg] 07/12/2024 08:33 PM Oxygen Saturation (65498-9) 97 % 07/13/2024 01:07 PM Temperature (8310-5) 97 [degF] Oxygen Saturation (74425-5) 96 % Respiratory Rate (9279-1) 18 /min Heart Rate (8867-4) 70 /min Blood Pressure Systolic (8480-6) 144 mm[Hg] Blood Pressure Diastolic (8462-4) 86 mm[Hg] 07/13/2024 09:47 PM Oxygen Saturation (25309-2) 97 % 07/14/2024 02:31 PM Temperature (8310-5) 98 [degF] Oxygen Saturation (17450-8) 92 % Respiratory Rate (9279-1) 19 /min Heart Rate (8867-4) 63 /min Blood Pressure Systolic (8480-6) 123 mm[Hg] Blood Pressure Diastolic (8462-4) 68 mm[Hg] 07/14/2024 07:02 PM Oxygen Saturation (07439-1) 94 % 07/15/2024 07:29 AM Temperature (8310-5) 97.8 [degF] Oxygen Saturation (23208-6) 96 % Respiratory Rate (9279-1) 18 /min Heart Rate (8867-4) 72 /min Blood Pressure Systolic (8480-6) 137 mm[Hg] Blood Pressure Diastolic (8462-4) 64 mm[Hg] 07/15/2024 06:54 PM Oxygen Saturation (17025-2) 94 % 07/16/2024 01:37 PM Oxygen Saturation (34097-7) 97 % 07/16/2024 01:36 PM Temperature (8310-5) 97.4 [degF] Oxygen Saturation (20962-7) 97 % Respiratory Rate (9279-1) 20 /min Heart Rate (8867-4) 89 /min Blood Pressure Systolic (8480-6) 135 mm[Hg] Blood Pressure Diastolic (8462-4) 70 mm[Hg] 07/16/2024 06:38 PM Oxygen Saturation (39505-8) 99 % 07/17/2024 09:47 AM Body Weight (87615-1) 221.2 [lb_av ] Body Mass Index (11515-2) 34.64 kg/m2 07/17/2024 09:14 AM Temperature (8310-5) 98.2 [degF] Oxygen Saturation (03258-5) 97 % Respiratory Rate (9279-1) 16 /min Heart Rate (8867-4) 60 /min Blood Pressure Systolic (8480-6) 131 mm[Hg] Blood Pressure Diastolic (8462-4) 68 mm[Hg] 07/17/2024 06:52 PM Oxygen Saturation (56023-7) 97 % 07/18/2024 03:34 PM Temperature (8310-5) 97.6 [degF] Oxygen Saturation (21575-4) 97 % Respiratory Rate (9279-1) 18 /min Heart Rate (8867-4) 74 /min Blood Pressure Systolic (8480-6) 169 mm[Hg] Blood Pressure Diastolic (8462-4) 81 mm[Hg] 07/18/2024 08:19 PM Oxygen Saturation (75439-4) 97 % 07/19/2024 07:04 AM Temperature (8310-5) 97 [degF] Oxygen Saturation (35101-0) 95 % Respiratory Rate (9279-1) 17 /min Heart Rate (8867-4) 53 /min Blood Pressure Systolic (8480-6) 145 mm[Hg] Blood Pressure Diastolic (8462-4) 72 mm[Hg] 07/19/2024 09:41 PM Oxygen Saturation (93910-5) 98 % 07/20/2024 08:25 AM Temperature (8310-5) 96.7 [degF] Oxygen Saturation (40236-4) 97 % Respiratory Rate (9279-1) 20 /min Heart Rate (8867-4) 51 /min Blood Pressure Systolic (8480-6) 140 mm[Hg] Blood Pressure Diastolic (8462-4) 86 mm[Hg] 07/20/2024 08:16 PM Oxygen Saturation (71985-9) 98 % 07/21/2024 11:59 AM Temperature (8310-5) 97.4 [degF] Oxygen Saturation (31846-0) 95 % Respiratory Rate (9279-1) 19 /min Heart Rate (8867-4) 71 /min Blood Pressure Systolic (8480-6) 129 mm[Hg] Blood Pressure Diastolic (8462-4) 79 mm[Hg] 07/21/2024 06:33 PM Oxygen Saturation (69327-2) 98 % 07/22/2024 01:23 PM Body Weight (92764-8) 222.2 [lb_av ] Body Mass Index (05637-3) 34.8 kg/m2 07/22/2024 11:11 AM Temperature (8310-5) 97.3 [degF] Oxygen Saturation (35626-0) 96 % Respiratory Rate (9279-1) 19 /min Heart Rate (8867-4) 70 /min Blood Pressure Systolic (8480-6) 145 mm[Hg] Blood Pressure Diastolic (8462-4) 68 mm[Hg] 07/22/2024 08:50 PM Oxygen Saturation (87369-9) 96 % 07/23/2024 11:04 AM Temperature (8310-5) 96.9 [degF] Oxygen Saturation (75132-7) 96 % Respiratory Rate (9279-1) 20 /min Heart Rate (8867-4) 65 /min Blood Pressure Systolic (8480-6) 133 mm[Hg] Blood Pressure Diastolic (8462-4) 73 mm[Hg] 07/23/2024 07:34 PM Oxygen Saturation (89308-9) 97 % 07/24/2024 11:43 AM Temperature (8310-5) 97.8 [degF] Oxygen Saturation (86085-4) 98 % Respiratory Rate (9279-1) 16 /min Heart Rate (8867-4) 52 /min Blood Pressure Systolic (8480-6) 138 mm[Hg] Blood Pressure Diastolic (8462-4) 70 mm[Hg] 07/25/2024 12:10 AM Oxygen Saturation (38912-9) 98 % 07/25/2024 01:42 PM Temperature (8310-5) 98.6 [degF] Oxygen Saturation (98182-1) 96 % Respiratory Rate (9279-1) 17 /min Heart Rate (8867-4) 67 /min Blood Pressure Systolic (8480-6) 126 mm[Hg] Blood Pressure Diastolic (8462-4) 72 mm[Hg] 07/25/2024 10:46 PM Oxygen Saturation (09958-3) 92 % 07/26/2024 08:34 AM Temperature (8310-5) 97.6 [degF] Oxygen Saturation (69559-3) 96 % Respiratory Rate (9279-1) 19 /min Heart Rate (8867-4) 62 /min Blood Pressure Systolic (8480-6) 121 mm[Hg] Blood Pressure Diastolic (8462-4) 64 mm[Hg] 07/26/2024 08:48 PM Oxygen Saturation (86272-9) 97 % 07/27/2024 12:52 PM Temperature (8310-5) 97.8 [degF] Respiratory Rate (9279-1) 20 /min Heart Rate (8867-4) 63 /min Blood Pressure Systolic (8480-6) 122 mm[Hg] Blood Pressure Diastolic (8462-4) 77 mm[Hg] 07/27/2024 10:42 AM Oxygen Saturation (52170-7) 95 % 07/28/2024 09:22 AM Body Weight (00927-9) 218 [lb_av] Body Mass Index (13815-0) 34.14 kg/m2 07/28/2024 01:54 PM Temperature (8310-5) 98 [degF] Oxygen Saturation (92517-2) 95 % Respiratory Rate (9279-1) 17 /min Heart Rate (8867-4) 70 /min Blood Pressure Systolic (8480-6) 119 mm[Hg] Blood Pressure Diastolic (8462-4) 65 mm[Hg] 07/28/2024 08:12 PM Oxygen Saturation (06349-0) 90 % 07/29/2024 09:27 AM Temperature (8310-5) 97.3 [degF] Oxygen Saturation (58372-3) 96 % Respiratory Rate (9279-1) 19 /min Heart Rate (8867-4) 61 /min Blood Pressure Systolic (8480-6) 145 mm[Hg] Blood Pressure Diastolic (8462-4) 62 mm[Hg] 07/29/2024 11:05 AM Body Weight (91490-5) 218 [lb_av] Body Mass Index (48861-6) 34.14 kg/m2 07/29/2024 09:36 PM Oxygen Saturation (36887-9) 97 % 07/30/2024 12:54 PM Temperature (8310-5) 97.3 [degF] Oxygen Saturation (39556-5) 97 % Respiratory Rate (9279-1) 19 /min Heart Rate (8867-4) 66 /min Blood Pressure Systolic (8480-6) 129 mm[Hg] Blood Pressure Diastolic (8462-4) 62 mm[Hg] 07/30/2024 07:30 PM Oxygen Saturation (93720-6) 92 % 07/31/2024 04:06 PM Body Weight (20579-8) 206.8 [lb_av ] Body Mass Index (73945-8) 32.39 kg/m2 07/31/2024 12:15 PM Temperature (8310-5) 97.8 [degF] Oxygen Saturation (24389-6) 98 % Respiratory Rate (9279-1) 16 /min Heart Rate (8867-4) 60 /min Blood Pressure Systolic (8480-6) 132 mm[Hg] Blood Pressure Diastolic (8462-4) 68 mm[Hg] 08/01/2024 08:50 PM Oxygen Saturation (76507-7) 95 % 08/01/2024 08:49 PM Temperature (8310-5) 97 [degF] Oxygen Saturation (13679-0) 97 % Respiratory Rate (9279-1) 18 /min Heart Rate (8867-4) 78 /min Blood Pressure Systolic (8480-6) 124 mm[Hg] Blood Pressure Diastolic (8462-4) 78 mm[Hg] 08/02/2024 11:57 AM Body Weight (67416-2) 205.6 [lb_av ] Body Mass Index (81248-2) 32.2 kg/m2 08/02/2024 09:50 AM Temperature (8310-5) 97.7 [degF] Oxygen Saturation (35832-7) 95 % Respiratory Rate (9279-1) 20 /min Heart Rate (8867-4) 74 /min Blood Pressure Systolic (8480-6) 120 mm[Hg] Blood Pressure Diastolic (8462-4) 65 mm[Hg] 08/02/2024 11:33 PM Oxygen Saturation (09565-6) 95 % 08/03/2024 02:41 PM Temperature (8310-5) 97.8 [degF] Oxygen Saturation (67554-2) 96 % Respiratory Rate (9279-1) 20 /min Heart Rate (8867-4) 75 /min Blood Pressure Systolic (8480-6) 130 mm[Hg] Blood Pressure Diastolic (8462-4) 62 mm[Hg] 08/03/2024 07:37 PM Oxygen Saturation (38417-8) 98 % 08/04/2024 11:30 AM Temperature (8310-5) 97.9 [degF] Respiratory Rate (9279-1) 21 /min Heart Rate (8867-4) 80 /min Blood Pressure Systolic (8480-6) 122 mm[Hg] Blood Pressure Diastolic (8462-4) 62 mm[Hg] 08/04/2024 11:28 AM Oxygen Saturation (31495-8) 96 % 08/04/2024 08:31 PM Oxygen Saturation (68220-8) 90 % 08/05/2024 08:54 AM Temperature (8310-5) 97.3 [degF] Oxygen Saturation (86165-5) 96 % Respiratory Rate (9279-1) 17 /min Heart Rate (8867-4) 8 /min Blood Pressure Systolic (8480-6) 100 mm[Hg] Blood Pressure Diastolic (8462-4) 50 mm[Hg] 08/05/2024 10:45 AM Body Weight (19352-5) 206.8 [lb_av ] Body Mass Index (79005-2) 32.39 kg/m2 08/05/2024 07:00 PM Oxygen Saturation (97452-1) 94 % 08/06/2024 04:51 PM Temperature (8310-5) 98 [degF] Oxygen Saturation (92560-0) 96 % Respiratory Rate (9279-1) 18 /min Heart Rate (8867-4) 75 /min Blood Pressure Systolic (8480-6) 110 mm[Hg] Blood Pressure Diastolic (8462-4) 62 mm[Hg] 08/06/2024 06:34 PM Oxygen Saturation (56274-3) 97 % 08/07/2024 03:46 PM Temperature (8310-5) 97.3 [degF] Oxygen Saturation (30839-9) 95 % Respiratory Rate (9279-1) 16 /min Heart Rate (8867-4) 55 /min Blood Pressure Systolic (8480-6) 124 mm[Hg] Blood Pressure Diastolic (8462-4) 62 mm[Hg] 08/07/2024 07:17 PM Oxygen Saturation (84128-8) 96 % 08/08/2024 04:52 PM Temperature (8310-5) 97.9 [degF] Oxygen Saturation (51792-6) 95 % Respiratory Rate (9279-1) 20 /min Heart Rate (8867-4) 61 /min Blood Pressure Systolic (8480-6) 131 mm[Hg] Blood Pressure Diastolic (8462-4) 71 mm[Hg] 08/08/2024 02:39 PM Oxygen Saturation (49433-8) 95 % 08/08/2024 11:47 PM Oxygen Saturation (45097-7) 98 % 08/09/2024 10:01 AM Temperature (8310-5) 97.8 [degF] Oxygen Saturation (92783-2) 99 % Respiratory Rate (9279-1) 19 /min Heart Rate (8867-4) 62 /min Blood Pressure Systolic (8480-6) 138 mm[Hg] Blood Pressure Diastolic (8462-4) 72 mm[Hg] 08/09/2024 10:17 PM Oxygen Saturation (20485-5) 95 % 08/10/2024 10:13 AM Temperature (8310-5) 98.2 [degF] Oxygen Saturation (67658-9) 96 % Respiratory Rate (9279-1) 18 /min Heart Rate (8867-4) 52 /min Blood Pressure Systolic (8480-6) 161 mm[Hg] Blood Pressure Diastolic (8462-4) 65 mm[Hg] 08/10/2024 10:25 PM Oxygen Saturation (92244-2) 96 % 08/11/2024 06:00 PM Temperature (8310-5) 97.9 [degF] Oxygen Saturation (92377-9) 95 % Respiratory Rate (9279-1) 20 /min Heart Rate (8867-4) 71 /min Blood Pressure Systolic (8480-6) 154 mm[Hg] Blood Pressure Diastolic (8462-4) 81 mm[Hg] 08/11/2024 06:23 PM Oxygen Saturation (98081-9) 93 % 08/12/2024 09:14 AM Temperature (8310-5) 98.1 [degF] 08/12/2024 10:58 AM Body Weight (33596-7) 208 [lb_av] Body Mass Index (09722-1) 32.57 kg/m2 08/12/2024 03:55 PM Oxygen Saturation (89917-1) 95 % Respiratory Rate (9279-1) 18 /min Heart Rate (8867-4) 76 /min Blood Pressure Systolic (8480-6) 170 mm[Hg] Blood Pressure Diastolic (8462-4) 90 mm[Hg] 08/13/2024 08:50 AM Oxygen Saturation (97213-6) 98 % 08/13/2024 08:49 AM Temperature (8310-5) 99.1 [degF] Oxygen Saturation (00789-7) 98 % Respiratory Rate (9279-1) 20 /min Heart Rate (8867-4) 74 /min Blood Pressure Systolic (8480-6) 150 mm[Hg] Blood Pressure Diastolic (8462-4) 60 mm[Hg] 08/12/2024 09:13 PM Oxygen Saturation (67940-4) 98 % 08/13/2024 08:04 PM Oxygen Saturation (87162-5) 96 % 08/14/2024 05:44 PM Temperature (8310-5) 97.2 [degF] Oxygen Saturation (53117-4) 90 % Respiratory Rate (9279-1) 20 /min Heart Rate (8867-4) 63 /min Blood Pressure Systolic (8480-6) 167 mm[Hg] Blood Pressure Diastolic (8462-4) 66 mm[Hg] 08/14/2024 06:59 PM Oxygen Saturation (19690-0) 98 % 08/15/2024 03:38 PM Oxygen Saturation (60353-8) 98 % 08/15/2024 03:37 PM Temperature (8310-5) 97.8 [degF] Respiratory Rate (9279-1) 16 /min Heart Rate (8867-4) 84 /min Blood Pressure Systolic (8480-6) 170 mm[Hg] Blood Pressure Diastolic (8462-4) 79 mm[Hg] 08/15/2024 10:10 PM Oxygen Saturation (89764-1) 97 % 08/16/2024 12:57 PM Temperature (8310-5) 97.9 [degF] Oxygen Saturation (02739-1) 96 % Respiratory Rate (9279-1) 19 /min Heart Rate (8867-4) 81 /min Blood Pressure Systolic (8480-6) 118 mm[Hg] Blood Pressure Diastolic (8462-4) 72 mm[Hg] 08/16/2024 08:02 PM Oxygen Saturation (73620-7) 95 % 08/17/2024 10:33 AM Temperature (8310-5) 97.7 [degF] Respiratory Rate (9279-1) 18 /min Heart Rate (8867-4) 67 /min Blood Pressure Systolic (8480-6) 122 mm[Hg] Blood Pressure Diastolic (8462-4) 71 mm[Hg] 08/17/2024 10:34 AM Oxygen Saturation (77440-2) 98 % 08/17/2024 08:10 PM Oxygen Saturation (53642-2) 97 % 08/18/2024 04:56 PM Oxygen Saturation (44664-8) 96 % Respiratory Rate (9279-1) 18 /min Heart Rate (8867-4) 70 /min Blood Pressure Systolic (8480-6) 115 mm[Hg] Blood Pressure Diastolic (8462-4) 71 mm[Hg] 08/18/2024 07:47 PM Oxygen Saturation (83692-2) 96 % 08/19/2024 08:36 AM Temperature (8310-5) 97.7 [degF] Oxygen Saturation (62149-9) 95 % Respiratory Rate (9279-1) 16 /min Heart Rate (8867-4) 98 /min Blood Pressure Systolic (8480-6) 135 mm[Hg] Blood Pressure Diastolic (8462-4) 62 mm[Hg] 08/19/2024 07:29 PM Oxygen Saturation (63860-2) 93 % 08/18/2024 04:07 PM Body Weight (48593-3) 207.9 [lb_av ] Body Mass Index (63209-2) 32.56 kg/m2 08/20/2024 12:54 PM Temperature (8310-5) 96.8 [degF] Oxygen Saturation (00923-2) 93 % Respiratory Rate (9279-1) 18 /min Heart Rate (8867-4) 84 /min Blood Pressure Systolic (8480-6) 123 mm[Hg] Blood Pressure Diastolic (8462-4) 70 mm[Hg] 08/11/2024 04:06 PM Body Weight (95761-1) 208.1 [lb_av ] Body Mass Index (08962-8) 32.59 kg/m2 08/15/2024 04:06 PM Body Weight (27126-9) 206.8 [lb_av ] Body Mass Index (14120-1) 32.39 kg/m2 08/20/2024 07:04 PM Oxygen Saturation (95710-0) 98 % 08/21/2024 08:20 AM Temperature (8310-5) 97.8 [degF] Oxygen Saturation (28303-1) 99 % Respiratory Rate (9279-1) 16 /min Heart Rate (8867-4) 65 /min Blood Pressure Systolic (8480-6) 142 mm[Hg] Blood Pressure Diastolic (8462-4) 72 mm[Hg] 08/21/2024 12:12 PM Body Weight (72693-7) 209.4 [lb_av ] Body Mass Index (75575-0) 32.79 kg/m2 08/21/2024 06:29 PM Oxygen Saturation (92426-0) 93 % 08/22/2024 03:12 PM Temperature (8310-5) 98.8 [degF] Oxygen Saturation (74547-7) 97 % Respiratory Rate (9279-1) 17 /min Heart Rate (8867-4) 67 /min Blood Pressure Systolic (8480-6) 134 mm[Hg] Blood Pressure Diastolic (8462-4) 76 mm[Hg] 08/22/2024 07:04 PM Oxygen Saturation (08557-4) 99 % 08/23/2024 09:19 AM Temperature (8310-5) 97.9 [degF] Oxygen Saturation (94628-6) 98 % Respiratory Rate (9279-1) 19 /min Heart Rate (8867-4) 61 /min Blood Pressure Systolic (8480-6) 125 mm[Hg] Blood Pressure Diastolic (8462-4) 68 mm[Hg] 08/23/2024 07:19 PM Oxygen Saturation (79268-6) 98 % 08/24/2024 08:42 AM Temperature (8310-5) 97.8 [degF] Oxygen Saturation (97470-4) 96 % Respiratory Rate (9279-1) 18 /min Heart Rate (8867-4) 66 /min Blood Pressure Systolic (8480-6) 111 mm[Hg] Blood Pressure Diastolic (8462-4) 62 mm[Hg] 08/24/2024 08:43 AM Oxygen Saturation (42804-7) 96 % 08/24/2024 06:43 PM Oxygen Saturation (34129-3) 98 % 08/25/2024 05:16 PM Oxygen Saturation (10322-9) 97 % 08/25/2024 05:23 PM Temperature (8310-5) 97.6 [degF] Oxygen Saturation (25675-1) 97 % Respiratory Rate (9279-1) 19 /min Heart Rate (8867-4) 69 /min Blood Pressure Systolic (8480-6) 123 mm[Hg] Blood Pressure Diastolic (8462-4) 67 mm[Hg] 08/26/2024 01:15 AM Oxygen Saturation (20070-4) 96 % 08/26/2024 01:27 PM Temperature (8310-5) 97.3 [degF] Oxygen Saturation (10722-4) 95 % Respiratory Rate (9279-1) 18 /min Heart Rate (8867-4) 54 /min Blood Pressure Systolic (8480-6) 142 mm[Hg] Blood Pressure Diastolic (8462-4) 72 mm[Hg] 08/26/2024 01:26 PM Oxygen Saturation (62083-4) 95 % 08/27/2024 12:32 PM Temperature (8310-5) 96.8 [degF] Oxygen Saturation (98546-5) 99 % Respiratory Rate (9279-1) 16 /min Heart Rate (8867-4) 64 /min Blood Pressure Systolic (8480-6) 160 mm[Hg] Blood Pressure Diastolic (8462-4) 88 mm[Hg] 08/27/2024 12:33 PM Oxygen Saturation (03964-4) 99 % 08/27/2024 06:59 PM Oxygen Saturation (30557-7) 94 % 08/28/2024 03:05 PM Body Weight (89465-4) 208.6 [lb_av ] Body Mass Index (72785-9) 32.67 kg/m2 08/28/2024 02:41 PM Temperature (8310-5) 97.1 [degF] Oxygen Saturation (40255-8) 92 % Respiratory Rate (9279-1) 18 /min Heart Rate (8867-4) 72 /min Blood Pressure Systolic (8480-6) 116 mm[Hg] Blood Pressure Diastolic (8462-4) 67 mm[Hg] 08/28/2024 02:42 PM Body Weight (54135-8) 208.6 [lb_av ] Body Mass Index (69050-0) 32.67 kg/m2 08/28/2024 08:37 PM Oxygen Saturation (73510-7) 95 % 08/29/2024 05:39 PM Temperature (8310-5) 97.7 [degF] Oxygen Saturation (65025-8) 98 % Respiratory Rate (9279-1) 17 /min Heart Rate (8867-4) 74 /min Blood Pressure Systolic (8480-6) 156 mm[Hg] Blood Pressure Diastolic (8462-4) 74 mm[Hg] 08/29/2024 07:56 PM Oxygen Saturation (83078-4) 97 % 08/30/2024 08:38 AM Temperature (8310-5) 97.3 [degF] Oxygen Saturation (23421-9) 95 % Respiratory Rate (9279-1) 17 /min Heart Rate (8867-4) 57 /min Blood Pressure Systolic (8480-6) 102 mm[Hg] Blood Pressure Diastolic (8462-4) 57 mm[Hg] 08/30/2024 12:05 PM Body Weight (87643-1) 207.8 [lb_av ] Body Mass Index (64870-3) 32.54 kg/m2 08/30/2024 07:25 PM Oxygen Saturation (94057-1) 97 % 08/31/2024 08:25 AM Temperature (8310-5) 97 [degF] Oxygen Saturation (13207-4) 94 % Respiratory Rate (9279-1) 18 /min Heart Rate (8867-4) 95 /min Blood Pressure Systolic (8480-6) 102 mm[Hg] Blood Pressure Diastolic (8462-4) 59 mm[Hg] 08/31/2024 10:52 AM Body Weight (02301-4) 207.6 [lb_av ] Body Mass Index (29944-6) 32.51 kg/m2 08/31/2024 07:24 PM Oxygen Saturation (81318-4) 98 % 09/01/2024 05:10 PM Temperature (8310-5) 97 [degF] Oxygen Saturation (65623-0) 94 % Respiratory Rate (9279-1) 18 /min Heart Rate (8867-4) 66 /min Blood Pressure Systolic (8480-6) 98 mm[Hg] Blood Pressure Diastolic (8462-4) 57 mm[Hg] 09/01/2024 05:12 PM Body Weight (14660-9) 206.9 [lb_av ] Body Mass Index (25823-4) 32.4 kg/m2 01/01/2025 08:19 PM Temperature (8310-5) 98.4 [degF] Oxygen Saturation (71219-5) 98 % Respiratory Rate (9279-1) 19 /min Heart Rate (8867-4) 78 /min Blood Pressure Systolic (8480-6) 118 mm[Hg] Blood Pressure Diastolic (8462-4) 86 mm[Hg] 01/01/2025 11:31 AM Temperature (8310-5) 97.1 [degF] Oxygen Saturation (86532-0) 98 % Respiratory Rate (9279-1) 18 /min Heart Rate (8867-4) 73 /min Blood Pressure Systolic (8480-6) 134 mm[Hg] Blood Pressure Diastolic (8462-4) 87 mm[Hg] Body Weight (15598-1) 182.3 [lb_av] Body Mass Index (97623-3) 28.55 kg/m2 12/31/2024 07:26 PM Temperature (8310-5) 97.4 [degF] Oxygen Saturation (44282-7) 97 % Respiratory Rate (9279-1) 18 /min Heart Rate (8867-4) 80 /min Blood Pressure Systolic (8480-6) 122 mm[Hg] Blood Pressure Diastolic (8462-4) 68 mm[Hg] 12/31/2024 03:44 PM Temperature (8310-5) 96 [degF] Oxygen Saturation (81034-0) 98 % Respiratory Rate (9279-1) 16 /min Heart Rate (8867-4) 85 /min Blood Pressure Systolic (8480-6) 112 mm[Hg] Blood Pressure Diastolic (8462-4) 86 mm[Hg] Body Weight (88514-2) 182 [lb_av] Body Mass Index (02259-1) 28.5 kg/m2 12/30/2024 07:46 PM Temperature (8310-5) 96.8 [degF] Oxygen Saturation (16856-6) 96 % Respiratory Rate (9279-1) 19 /min Heart Rate (8867-4) 63 /min Blood Pressure Systolic (8480-6) 122 mm[Hg] Blood Pressure Diastolic (8462-4) 75 mm[Hg] 12/30/2024 12:24 PM Temperature (8310-5) 98.2 [degF] Oxygen Saturation (07764-0) 96 % Respiratory Rate (9279-1) 16 /min Heart Rate (8867-4) 75 /min Blood Pressure Systolic (8480-6) 169 mm[Hg] Blood Pressure Diastolic (8462-4) 86 mm[Hg] 12/29/2024 08:03 PM Temperature (8310-5) 97.5 [degF] Oxygen Saturation (81177-5) 98 % Respiratory Rate (9279-1) 20 /min Heart Rate (8867-4) 72 /min Blood Pressure Systolic (8480-6) 108 mm[Hg] Blood Pressure Diastolic (8462-4) 70 mm[Hg] 12/29/2024 12:26 PM Body Weight (91166-2) 182.2 [lb_av ] Body Mass Index (53858-1) 28.53 kg/m2 12/29/2024 12:18 PM Temperature (8310-5) 98 [degF] Oxygen Saturation (06768-7) 98 % Respiratory Rate (9279-1) 18 /min Heart Rate (8867-4) 86 /min Blood Pressure Systolic (8480-6) 121 mm[Hg] Blood Pressure Diastolic (8462-4) 69 mm[Hg] 12/29/2024 11:27 AM Body Weight (67844-9) 177.32 [lb_a v] Body Mass Index (04134-7) 27.77 kg/m2 12/28/2024 07:57 PM Oxygen Saturation (60090-0) 96 % 12/28/2024 07:56 PM Temperature (8310-5) 98.5 [degF] Respiratory Rate (9279-1) 16 /min Heart Rate (8867-4) 80 /min Blood Pressure Systolic (8480-6) 152 mm[Hg] Blood Pressure Diastolic (8462-4) 74 mm[Hg] 12/28/2024 07:17 AM Temperature (8310-5) 97.6 [degF] Oxygen Saturation (07292-7) 98 % Respiratory Rate (9279-1) 20 /min Heart Rate (8867-4) 81 /min Blood Pressure Systolic (8480-6) 157 mm[Hg] Blood Pressure Diastolic (8462-4) 78 mm[Hg] 12/11/2024 12:18 PM Body Weight (63078-7) 178.2 [lb_av ] Body Mass Index (92198-1) 27.91 kg/m2 12/04/2024 08:55 AM Body Weight (84445-4) 182.7 [lb_av ] Body Mass Index (83208-7) 28.61 kg/m2 12/03/2024 01:07 PM Body Weight (61807-8) 182 [lb_av] Body Mass Index (34079-8) 28.5 kg/m2 12/02/2024 11:02 AM Body Weight (38523-5) 182.2 [lb_av ] Body Mass Index (30755-4) 28.53 kg/m2 12/01/2024 03:47 PM Body Weight (21769-3) 188 [lb_av] Body Mass Index (07980-2) 29.44 kg/m2 11/28/2024 03:16 PM Body Weight (62225-5) 187.4 [lb_av ] Body Mass Index (45350-4) 29.35 kg/m2 11/25/2024 04:52 PM Body Weight (49692-4) 187.2 [lb_av ] Body Mass Index (66218-1) 29.32 kg/m2 11/18/2024 02:06 PM Body Weight (22596-0) 188.3 [lb_av ] Body Mass Index (33706-0) 29.49 kg/m2 11/13/2024 01:43 PM Body Weight (00902-6) 194.6 [lb_av ] Body Mass Index (13064-7) 30.48 kg/m2 11/05/2024 11:08 AM Body Weight (05044-0) 194.6 [lb_av ] Body Mass Index (23184-9) 30.48 kg/m2 10/31/2024 05:06 PM Body Weight (86832-9) 190.3 [lb_av ] Body Mass Index (27980-3) 29.8 kg/m2 10/29/2024 12:14 PM Body Weight (27104-5) 187 [lb_av] Body Mass Index (57677-9) 29.29 kg/m2 10/28/2024 05:04 PM Body Weight (20159-1) 197.6 [lb_av ] Body Mass Index (39221-0) 30.95 kg/m2 10/22/2024 05:05 PM Body Weight (21302-3) 184.5 [lb_av ] Body Mass Index (82671-1) 28.89 kg/m2 10/22/2024 12:56 PM Body Weight (03206-8) 188.8 [lb_av ] Body Mass Index (29549-6) 29.57 kg/m2 10/15/2024 04:41 PM Body Weight (28916-8) 189.6 [lb_av ] Body Mass Index (05583-4) 29.69 kg/m2 10/15/2024 11:47 AM Body Weight (19218-3) 192 [lb_av] Body Mass Index (33992-2) 30.07 kg/m2 10/09/2024 01:57 PM Body Weight (89663-5) 185.6 [lb_av ] Body Mass Index (49489-0) 29.07 kg/m2 10/08/2024 05:26 PM Body Weight (47933-7) 198 [lb_av] Body Mass Index (12621-9) 31.01 kg/m2 01/02/2025 08:04 PM Oxygen Saturation (60529-4) 98 % Respiratory Rate (9279-1) 17 /min Heart Rate (8867-4) 89 /min Blood Pressure Systolic (8480-6) 103 mm[Hg] Blood Pressure Diastolic (8462-4) 76 mm[Hg] 01/02/2025 08:03 PM Temperature (8310-5) 98 [degF] 01/02/2025 03:15 PM Body Weight (87317-2) 183.1 [lb_av ] Body Mass Index (36753-9) 28.67 kg/m2 01/02/2025 03:13 PM Temperature (8310-5) 98 [degF] Oxygen Saturation (28895-4) 98 % Respiratory Rate (9279-1) 21 /min Heart Rate (8867-4) 112 /min Blood Pressure Systolic (8480-6) 102 mm[Hg] Blood Pressure Diastolic (8462-4) 63 mm[Hg] 01/03/2025 08:41 AM Temperature (8310-5) 97.4 [degF] Oxygen Saturation (67756-2) 96 % Respiratory Rate (9279-1) 18 /min Heart Rate (8867-4) 85 /min Blood Pressure Systolic (8480-6) 134 mm[Hg] Blood Pressure Diastolic (8462-4) 75 mm[Hg] 01/03/2025 07:14 PM Temperature (8310-5) 98 [degF] Oxygen Saturation (40755-3) 98 % Respiratory Rate (9279-1) 23 /min Heart Rate (8867-4) 61 /min Blood Pressure Systolic (8480-6) 119 mm[Hg] Blood Pressure Diastolic (8462-4) 60 mm[Hg] 01/04/2025 03:34 PM Temperature (8310-5) 97.3 [degF] Oxygen Saturation (26376-1) 96 % Respiratory Rate (9279-1) 17 /min Heart Rate (8867-4) 64 /min Blood Pressure Systolic (8480-6) 134 mm[Hg] Blood Pressure Diastolic (8462-4) 75 mm[Hg] 01/04/2025 08:31 PM Oxygen Saturation (57421-4) 92 % Blood Pressure Systolic (8480-6) 165 mm[Hg] Blood Pressure Diastolic (8462-4) 92 mm[Hg] 01/04/2025 08:30 PM Respiratory Rate (9279-1) 18 /min 01/04/2025 08:29 PM Temperature (8310-5) 97.1 [degF] Heart Rate (8867-4) 80 /min 01/05/2025 12:57 PM Temperature (8310-5) 97.6 [degF] Oxygen Saturation (67765-1) 94 % Respiratory Rate (9279-1) 19 /min Heart Rate (8867-4) 76 /min Blood Pressure Systolic (8480-6) 136 mm[Hg] Blood Pressure Diastolic (8462-4) 73 mm[Hg] 01/06/2025 07:56 AM Temperature (8310-5) 98 [degF] Oxygen Saturation (67971-8) 98 % Respiratory Rate (9279-1) 16 /min Heart Rate (8867-4) 82 /min Blood Pressure Systolic (8480-6) 132 mm[Hg] Blood Pressure Diastolic (8462-4) 72 mm[Hg] 01/06/2025 11:08 AM Body Weight (42400-4) 182.38 [lb_a v] Body Mass Index (02272-9) 28.56 kg/m2 01/06/2025 07:57 PM Temperature (8310-5) 97.5 [degF] Oxygen Saturation (65204-8) 95 % Respiratory Rate (9279-1) 22 /min Heart Rate (8867-4) 75 /min Blood Pressure Systolic (8480-6) 120 mm[Hg] Blood Pressure Diastolic (8462-4) 67 mm[Hg] 01/07/2025 03:24 PM Temperature (8310-5) 98 [degF] Oxygen Saturation (86767-1) 96 % Respiratory Rate (9279-1) 18 /min Heart Rate (8867-4) 73 /min Blood Pressure Systolic (8480-6) 132 mm[Hg] Blood Pressure Diastolic (8462-4) 81 mm[Hg] 01/07/2025 09:31 PM Temperature (8310-5) 97 [degF] Oxygen Saturation (60091-5) 99 % Respiratory Rate (9279-1) 16 /min Heart Rate (8867-4) 73 /min Blood Pressure Systolic (8480-6) 120 mm[Hg] Blood Pressure Diastolic (8462-4) 69 mm[Hg] 01/08/2025 04:17 PM Temperature (8310-5) 96.6 [degF] Oxygen Saturation (84384-1) 99 % Respiratory Rate (9279-1) 16 /min Heart Rate (8867-4) 68 /min Blood Pressure Systolic (8480-6) 101 mm[Hg] Blood Pressure Diastolic (8462-4) 69 mm[Hg] 01/08/2025 07:59 PM Temperature (8310-5) 97.9 [degF] Oxygen Saturation (15624-0) 96 % Respiratory Rate (9279-1) 17 /min Heart Rate (8867-4) 73 /min Blood Pressure Systolic (8480-6) 137 mm[Hg] Blood Pressure Diastolic (8462-4) 61 mm[Hg] 01/09/2025 02:03 PM Temperature (8310-5) 96.4 [degF] Oxygen Saturation (21701-3) 99 % Respiratory Rate (9279-1) 16 /min Heart Rate (8867-4) 87 /min Blood Pressure Systolic (8480-6) 144 mm[Hg] Blood Pressure Diastolic (8462-4) 92 mm[Hg] 01/09/2025 08:17 PM Temperature (8310-5) 98.6 [degF] Respiratory Rate (9279-1) 23 /min Heart Rate (8867-4) 97 /min 01/09/2025 08:18 PM Oxygen Saturation (54085-8) 99 % Blood Pressure Systolic (8480-6) 175 mm[Hg] Blood Pressure Diastolic (8462-4) 92 mm[Hg] 01/10/2025 02:19 PM Temperature (8310-5) 97.6 [degF] Oxygen Saturation (68470-1) 97 % Respiratory Rate (9279-1) 19 /min Heart Rate (8867-4) 78 /min Blood Pressure Systolic (8480-6) 122 mm[Hg] Blood Pressure Diastolic (8462-4) 64 mm[Hg] 01/10/2025 06:42 PM Temperature (8310-5) 98.2 [degF] Oxygen Saturation (05641-9) 97 % Respiratory Rate (9279-1) 16 /min Heart Rate (8867-4) 72 /min Blood Pressure Systolic (8480-6) 126 mm[Hg] Blood Pressure Diastolic (8462-4) 84 mm[Hg] 01/11/2025 07:21 AM Temperature (8310-5) 97.7 [degF] Oxygen Saturation (45440-9) 95 % Respiratory Rate (9279-1) 19 /min Heart Rate (8867-4) 78 /min Blood Pressure Systolic (8480-6) 130 mm[Hg] Blood Pressure Diastolic (8462-4) 71 mm[Hg] 01/11/2025 11:04 PM Oxygen Saturation (77409-6) 97 % Heart Rate (8867-4) 78 /min Blood Pressure Systolic (8480-6) 128 mm[Hg] Blood Pressure Diastolic (8462-4) 60 mm[Hg] 01/12/2025 07:43 AM Temperature (8310-5) 97.6 [degF] Oxygen Saturation (51278-2) 98 % Respiratory Rate (9279-1) 21 /min Heart Rate (8867-4) 73 /min Blood Pressure Systolic (8480-6) 158 mm[Hg] Blood Pressure Diastolic (8462-4) 79 mm[Hg] 01/12/2025 09:45 PM Temperature (8310-5) 98.1 [degF] Oxygen Saturation (10500-6) 97 % Respiratory Rate (9279-1) 18 /min Heart Rate (8867-4) 70 /min Blood Pressure Systolic (8480-6) 140 mm[Hg] Blood Pressure Diastolic (8462-4) 78 mm[Hg] 01/13/2025 08:41 AM Temperature (8310-5) 98 [degF] Oxygen Saturation (80454-6) 91 % Respiratory Rate (9279-1) 18 /min Heart Rate (8867-4) 84 /min Blood Pressure Systolic (8480-6) 126 mm[Hg] Blood Pressure Diastolic (8462-4) 55 mm[Hg] 01/13/2025 08:37 AM Body Weight (30669-5) 177.9 [lb_av ] Body Mass Index (23487-1) 27.86 kg/m2 01/13/2025 08:19 PM Temperature (8310-5) 97 [degF] Oxygen Saturation (64973-5) 95 % Respiratory Rate (9279-1) 20 /min Heart Rate (8867-4) 77 /min Blood Pressure Systolic (8480-6) 149 mm[Hg] Blood Pressure Diastolic (8462-4) 69 mm[Hg] 01/14/2025 03:38 PM Temperature (8310-5) 97.9 [degF] Oxygen Saturation (02556-8) 98 % Respiratory Rate (9279-1) 20 /min Heart Rate (8867-4) 74 /min Blood Pressure Systolic (8480-6) 122 mm[Hg] Blood Pressure Diastolic (8462-4) 86 mm[Hg] 01/14/2025 08:16 PM Temperature (8310-5) 98.2 [degF] Oxygen Saturation (66332-7) 95 % Respiratory Rate (9279-1) 20 /min Heart Rate (8867-4) 82 /min Blood Pressure Systolic (8480-6) 145 mm[Hg] Blood Pressure Diastolic (8462-4) 66 mm[Hg] 01/15/2025 07:51 PM Temperature (8310-5) 97.5 [degF] Oxygen Saturation (09809-9) 95 % Respiratory Rate (9279-1) 18 /min Heart Rate (8867-4) 90 /min Blood Pressure Systolic (8480-6) 148 mm[Hg] Blood Pressure Diastolic (8462-4) 79 mm[Hg] 01/16/2025 08:17 PM Temperature (8310-5) 98.4 [degF] Oxygen Saturation (12899-4) 98 % Respiratory Rate (9279-1) 22 /min Heart Rate (8867-4) 85 /min Blood Pressure Systolic (8480-6) 113 mm[Hg] Blood Pressure Diastolic (8462-4) 89 mm[Hg] 01/16/2025 06:07 PM Temperature (8310-5) 99.2 [degF] Oxygen Saturation (51393-2) 99 % Respiratory Rate (9279-1) 17 /min Heart Rate (8867-4) 74 /min Blood Pressure Systolic (8480-6) 193 mm[Hg] Blood Pressure Diastolic (8462-4) 105 mm[Hg] 01/17/2025 03:32 PM Temperature (8310-5) 98 [degF] Oxygen Saturation (02995-2) 97 % Respiratory Rate (9279-1) 20 /min Heart Rate (8867-4) 78 /min Blood Pressure Systolic (8480-6) 120 mm[Hg] Blood Pressure Diastolic (8462-4) 79 mm[Hg] 01/17/2025 08:35 PM Oxygen Saturation (38849-3) 99 % Blood Pressure Systolic (8480-6) 140 mm[Hg] Blood Pressure Diastolic (8462-4) 91 mm[Hg] 01/17/2025 08:34 PM Temperature (8310-5) 97.6 [degF] Respiratory Rate (9279-1) 18 /min Heart Rate (8867-4) 80 /min 01/18/2025 09:56 AM Temperature (8310-5) 97.8 [degF] Oxygen Saturation (24408-2) 98 % Respiratory Rate (9279-1) 20 /min Heart Rate (8867-4) 95 /min Blood Pressure Systolic (8480-6) 131 mm[Hg] Blood Pressure Diastolic (8462-4) 76 mm[Hg] 01/18/2025 08:51 PM Temperature (8310-5) 98.6 [degF] Oxygen Saturation (76801-6) 95 % Respiratory Rate (9279-1) 18 /min Heart Rate (8867-4) 84 /min Blood Pressure Systolic (8480-6) 154 mm[Hg] Blood Pressure Diastolic (8462-4) 76 mm[Hg] 01/19/2025 07:25 AM Temperature (8310-5) 97.8 [degF] Oxygen Saturation (10739-7) 94 % Respiratory Rate (9279-1) 18 /min Heart Rate (8867-4) 81 /min Blood Pressure Systolic (8480-6) 101 mm[Hg] Blood Pressure Diastolic (8462-4) 62 mm[Hg] 01/19/2025 07:36 PM Temperature (8310-5) 98.4 [degF] Oxygen Saturation (34643-8) 97 % Respiratory Rate (9279-1) 16 /min Heart Rate (8867-4) 86 /min Blood Pressure Systolic (8480-6) 175 mm[Hg] Blood Pressure Diastolic (8462-4) 71 mm[Hg] 01/20/2025 08:50 AM Body Weight (69692-4) 171.2 [lb_av ] Body Mass Index (61909-9) 26.81 kg/m2 01/20/2025 02:10 PM Temperature (8310-5) 97.8 [degF] Oxygen Saturation (97949-1) 93 % Respiratory Rate (9279-1) 18 /min Heart Rate (8867-4) 101 /min Blood Pressure Systolic (8480-6) 140 mm[Hg] Blood Pressure Diastolic (8462-4) 82 mm[Hg] 01/20/2025 07:13 PM Temperature (8310-5) 97.6 [degF] Oxygen Saturation (68944-8) 94 % Respiratory Rate (9279-1) 20 /min Heart Rate (8867-4) 81 /min Blood Pressure Systolic (8480-6) 134 mm[Hg] Blood Pressure Diastolic (8462-4) 79 mm[Hg] 01/21/2025 08:34 AM Temperature (8310-5) 97.5 [degF] Oxygen Saturation (63535-3) 95 % Respiratory Rate (9279-1) 13 /min Heart Rate (8867-4) 63 /min Blood Pressure Systolic (8480-6) 125 mm[Hg] Blood Pressure Diastolic (8462-4) 67 mm[Hg] 01/21/2025 04:25 PM Temperature (8310-5) 97.6 [degF] 01/21/2025 07:04 PM Temperature (8310-5) 98.1 [degF] Oxygen Saturation (15362-0) 99 % Respiratory Rate (9279-1) 16 /min Heart Rate (8867-4) 80 /min Blood Pressure Systolic (8480-6) 141 mm[Hg] Blood Pressure Diastolic (8462-4) 68 mm[Hg] 01/22/2025 09:06 AM Temperature (8310-5) 97.5 [degF] Oxygen Saturation (56545-4) 96 % Respiratory Rate (9279-1) 19 /min Heart Rate (8867-4) 75 /min Blood Pressure Systolic (8480-6) 152 mm[Hg] Blood Pressure Diastolic (8462-4) 59 mm[Hg] 01/22/2025 06:31 PM Temperature (8310-5) 97.6 [degF] Oxygen Saturation (09293-9) 98 % Respiratory Rate (9279-1) 22 /min Heart Rate (8867-4) 90 /min Blood Pressure Systolic (8480-6) 123 mm[Hg] Blood Pressure Diastolic (8462-4) 79 mm[Hg] 01/23/2025 06:50 PM Temperature (8310-5) 98.2 [degF] Oxygen Saturation (10949-9) 96 % Respiratory Rate (9279-1) 18 /min Heart Rate (8867-4) 88 /min Blood Pressure Systolic (8480-6) 122 mm[Hg] Blood Pressure Diastolic (8462-4) 85 mm[Hg] 01/23/2025 05:59 PM Temperature (8310-5) 97.5 [degF] Oxygen Saturation (63226-0) 99 % Respiratory Rate (9279-1) 18 /min Heart Rate (8867-4) 98 /min Blood Pressure Systolic (8480-6) 144 mm[Hg] Blood Pressure Diastolic (8462-4) 78 mm[Hg] 01/24/2025 10:17 AM Temperature (8310-5) 98.8 [degF] Oxygen Saturation (89133-1) 98 % Respiratory Rate (9279-1) 18 /min Heart Rate (8867-4) 78 /min Blood Pressure Systolic (8480-6) 128 mm[Hg] Blood Pressure Diastolic (8462-4) 91 mm[Hg] 01/24/2025 08:52 PM Oxygen Saturation (62533-4) 98 % 01/24/2025 08:51 PM Temperature (8310-5) 97.6 [degF] Respiratory Rate (9279-1) 17 /min Heart Rate (8867-4) 72 /min Blood Pressure Systolic (8480-6) 150 mm[Hg] Blood Pressure Diastolic (8462-4) 81 mm[Hg] 01/25/2025 08:10 AM Temperature (8310-5) 97.6 [degF] Oxygen Saturation (27628-3) 99 % Respiratory Rate (9279-1) 17 /min Heart Rate (8867-4) 60 /min Blood Pressure Systolic (8480-6) 116 mm[Hg] Blood Pressure Diastolic (8462-4) 66 mm[Hg] 01/25/2025 06:43 PM Oxygen Saturation (13525-5) 98 % 01/25/2025 06:42 PM Temperature (8310-5) 98.2 [degF] Respiratory Rate (9279-1) 17 /min Heart Rate (8867-4) 82 /min Blood Pressure Systolic (8480-6) 147 mm[Hg] Blood Pressure Diastolic (8462-4) 72 mm[Hg] 01/26/2025 09:08 AM Temperature (8310-5) 97.8 [degF] Oxygen Saturation (27848-1) 96 % Respiratory Rate (9279-1) 18 /min Heart Rate (8867-4) 72 /min Blood Pressure Systolic (8480-6) 113 mm[Hg] Blood Pressure Diastolic (8462-4) 76 mm[Hg] 01/26/2025 12:57 PM Body Weight (78213-6) 179.9 [lb_av ] Body Mass Index (86975-5) 28.17 kg/m2 01/26/2025 08:57 PM Temperature (8310-5) 97.8 [degF] Oxygen Saturation (89085-7) 98 % Respiratory Rate (9279-1) 20 /min Heart Rate (8867-4) 78 /min Blood Pressure Systolic (8480-6) 123 mm[Hg] Blood Pressure Diastolic (8462-4) 65 mm[Hg] 01/27/2025 12:36 PM Temperature (8310-5) 97.3 [degF] 01/27/2025 12:37 PM Oxygen Saturation (77287-3) 99 % Respiratory Rate (9279-1) 19 /min Heart Rate (8867-4) 77 /min Blood Pressure Systolic (8480-6) 112 mm[Hg] Blood Pressure Diastolic (8462-4) 63 mm[Hg] 01/27/2025 07:50 PM Temperature (8310-5) 96.9 [degF] Oxygen Saturation (04694-5) 96 % Respiratory Rate (9279-1) 18 /min Heart Rate (8867-4) 80 /min Blood Pressure Systolic (8480-6) 130 mm[Hg] Blood Pressure Diastolic (8462-4) 80 mm[Hg] 01/28/2025 04:08 PM Body Weight (68031-9) 179.4 [lb_av ] Body Mass Index (22131-3) 28.09 kg/m2 01/28/2025 11:20 AM Temperature (8310-5) 98 [degF] Oxygen Saturation (31102-6) 97 % Respiratory Rate (9279-1) 14 /min Heart Rate (8867-4) 77 /min Blood Pressure Systolic (8480-6) 128 mm[Hg] Blood Pressure Diastolic (8462-4) 88 mm[Hg] 01/29/2025 02:16 AM Temperature (8310-5) 97.5 [degF] Oxygen Saturation (70530-9) 91 % Respiratory Rate (9279-1) 19 /min Heart Rate (8867-4) 75 /min Blood Pressure Systolic (8480-6) 142 mm[Hg] Blood Pressure Diastolic (8462-4) 69 mm[Hg] 01/29/2025 11:19 AM Temperature (8310-5) 97.3 [degF] Oxygen Saturation (82769-1) 98 % Respiratory Rate (9279-1) 15 /min Heart Rate (8867-4) 68 /min Blood Pressure Systolic (8480-6) 126 mm[Hg] Blood Pressure Diastolic (8462-4) 72 mm[Hg] 01/29/2025 07:15 PM Temperature (8310-5) 98.1 [degF] Oxygen Saturation (63264-8) 95 % Respiratory Rate (9279-1) 16 /min Heart Rate (8867-4) 81 /min Blood Pressure Systolic (8480-6) 156 mm[Hg] Blood Pressure Diastolic (8462-4) 83 mm[Hg] 01/30/2025 01:18 PM Temperature (8310-5) 97.3 [degF] Oxygen Saturation (63059-9) 98 % Respiratory Rate (9279-1) 15 /min Heart Rate (8867-4) 68 /min Blood Pressure Systolic (8480-6) 126 mm[Hg] Blood Pressure Diastolic (8462-4) 72 mm[Hg] 01/30/2025 08:59 PM Respiratory Rate (9279-1) 21 /min Heart Rate (8867-4) 82 /min Blood Pressure Systolic (8480-6) 132 mm[Hg] Blood Pressure Diastolic (8462-4) 71 mm[Hg] 01/30/2025 09:01 PM Oxygen Saturation (88475-5) 94 % 01/30/2025 07:22 PM Temperature (8310-5) 97.8 [degF] 01/31/2025 08:51 AM Temperature (8310-5) 97.4 [degF] Oxygen Saturation (08230-0) 97 % Respiratory Rate (9279-1) 17 /min Heart Rate (8867-4) 61 /min Blood Pressure Systolic (8480-6) 115 mm[Hg] Blood Pressure Diastolic (8462-4) 72 mm[Hg] 01/31/2025 11:31 PM Temperature (8310-5) 97.4 [degF] Heart Rate (8867-4) 80 /min 01/31/2025 11:32 PM Oxygen Saturation (01003-4) 98 % Respiratory Rate (9279-1) 17 /min Blood Pressure Systolic (8480-6) 115 mm[Hg] Blood Pressure Diastolic (8462-4) 76 mm[Hg] 02/01/2025 09:07 AM Temperature (8310-5) 97.5 [degF] Oxygen Saturation (48680-1) 98 % Respiratory Rate (9279-1) 18 /min Heart Rate (8867-4) 81 /min Blood Pressure Systolic (8480-6) 129 mm[Hg] Blood Pressure Diastolic (8462-4) 77 mm[Hg] 02/01/2025 08:15 PM Temperature (8310-5) 98 [degF] Oxygen Saturation (68575-0) 93 % Respiratory Rate (9279-1) 17 /min Heart Rate (8867-4) 88 /min Blood Pressure Systolic (8480-6) 117 mm[Hg] Blood Pressure Diastolic (8462-4) 77 mm[Hg] 02/02/2025 08:12 AM Temperature (8310-5) 97.8 [degF] Oxygen Saturation (83218-7) 98 % Respiratory Rate (9279-1) 18 /min Heart Rate (8867-4) 73 /min Blood Pressure Systolic (8480-6) 126 mm[Hg] Blood Pressure Diastolic (8462-4) 72 mm[Hg] 02/02/2025 07:31 PM Temperature (8310-5) 97.6 [degF] Oxygen Saturation (08855-3) 94 % Respiratory Rate (9279-1) 20 /min Heart Rate (8867-4) 63 /min Blood Pressure Systolic (8480-6) 101 mm[Hg] Blood Pressure Diastolic (8462-4) 60 mm[Hg] 02/03/2025 09:45 AM Body Weight (62259-5) 173.8 [lb_av ] Body Mass Index (45543-0) 27.22 kg/m2 02/03/2025 09:07 AM Temperature (8310-5) 96.9 [degF] Oxygen Saturation (64198-1) 92 % Respiratory Rate (9279-1) 18 /min Heart Rate (8867-4) 74 /min Blood Pressure Systolic (8480-6) 129 mm[Hg] Blood Pressure Diastolic (8462-4) 75 mm[Hg] 02/03/2025 07:53 PM Temperature (8310-5) 96.7 [degF] Oxygen Saturation (66292-3) 95 % Respiratory Rate (9279-1) 23 /min Heart Rate (8867-4) 83 /min Blood Pressure Systolic (8480-6) 143 mm[Hg] Blood Pressure Diastolic (8462-4) 65 mm[Hg] 02/04/2025 11:35 AM Temperature (8310-5) 97.6 [degF] Respiratory Rate (9279-1) 19 /min Heart Rate (8867-4) 108 /min Blood Pressure Systolic (8480-6) 145 mm[Hg] Blood Pressure Diastolic (8462-4) 98 mm[Hg] 02/04/2025 11:36 AM Oxygen Saturation (17717-8) 96 % 02/04/2025 06:53 PM Temperature (8310-5) 97.3 [degF] Oxygen Saturation (70830-9) 96 % Respiratory Rate (9279-1) 19 /min Heart Rate (8867-4) 98 /min Blood Pressure Systolic (8480-6) 101 mm[Hg] Blood Pressure Diastolic (8462-4) 73 mm[Hg] 02/05/2025 12:12 PM Temperature (8310-5) 97.4 [degF] Oxygen Saturation (43407-7) 99 % Respiratory Rate (9279-1) 18 /min Heart Rate (8867-4) 64 /min Blood Pressure Systolic (8480-6) 135 mm[Hg] Blood Pressure Diastolic (8462-4) 72 mm[Hg] 02/05/2025 07:30 PM Temperature (8310-5) 97.9 [degF] Oxygen Saturation (10927-6) 98 % Respiratory Rate (9279-1) 18 /min Heart Rate (8867-4) 70 /min Blood Pressure Systolic (8480-6) 140 mm[Hg] Blood Pressure Diastolic (8462-4) 78 mm[Hg] Social History No smoking Hx information available Encounters Type CPT Code Date Location Provider Indication s encounter report 07/04/2022 02:0 7 PM - 04/22/2024 03:25 PM Keo CRESPO encounter report 07/04/2022 02:0 7 PM - 05/25/2024 07:57 PM Keo Delvalle DO Advance Directives Directive Description Verification Date Supporting Document(s) Other Directive
[2025-02-06 17:26] VITALS: BP 180/83; PULSE 96; RESP 18; TEMP 36.8; O2SAT 100
--- NOTE | 2025-02-06 18:33 | XRR_ITS ---
PROCEDURE INFORMATION: Exam: XR Left Shoulder Exam date and time: 02/06/2025 7:09 PM Age: 79 years old Clinical indication: Pain; Shoulder; Prior surgery; Surgery date: <1 month; Surgery type: Left clavicle fix; Additional info: Pain/ post surgery TECHNIQUE: Imaging protocol: Radiologic exam of the left shoulder. Views: 2 or more views. COMPARISON: CR XR chest 1V portable [id number] 10/06/2024 12:28 PM FINDINGS: Bones/joints: Clavicular fixation plate and screws with healing clavicular fracture. Intact glenohumeral joint. Impression Soft tissues: Normal. XR/XR shoulder LT min 2V* [id number] IMPRESSION: Clavicular fixation plate and screws with healing clavicular fracture.
[2025-02-06] MEDS: HYDROcodone-acetaminophen 7.5-325 mg Tablet 1 TAB PO (19:40)
[2025-02-06 19:43] VITALS: BP 181/92; PULSE 98; RESP 16; O2SAT 98
--- NOTE | 2025-02-06 20:16 | W.ED.EXTPRO ---
Documented by User: GISSELL Farias 02/07/25 00:42 HPI - Extremity Problem General: Chief complaint: Extremity Injury, Upper Stated complaint: left shoulder pain Time Seen by Provider: 02/06/25 18:54 Source: patient Mode of arrival: EMS Limitations: no limitations History of Present Illness: Patient is a 79-year-old female who presents the emergency department by ambulance from assisted complaining of left shoulder pain. She had surgery for repair of left collarbone [address] Steiner, she states that last night she was sleeping and thinks that she rolled over on it at some point as she woke up with severe pain and swelling to the left collarbone. She states that she chronically has limited range of motion at the shoulder due to being on dialysis so this is unchanged. She has been taking oxycodone but states that this has not been helping. MD Complaint: joint swelling and joint pain Onset (ago): hour(s) Pain Consistency: constant Location: left and upper extremity (Shoulder) Associated symptoms: Deny chest pain, fever(s) or rash Context: recent surgery/procedure Related Data Home Medications ?Medication ?Instructions ?Recorded ?Confirmed bimatoprost 0.01 % eye drops 1 drp ophthalmic (eye) BEDTIME 04/07/22 02/02/25 (Pepe) carbidopa 25 mg-levodopa 100 mg 1 tab PO TID 04/07/22 02/02/25 tablet furosemide 40 mg tablet (Lasix) 40 mg PO BID 04/07/22 02/02/25 insulin aspart U-100 100 unit/mL See Rx Instructions .Route .COMPLEX 04/07/22 02/02/25 (3 mL) subcutaneous pen (Novolog FlexPen U-100 Insulin aspart) loperamide 2 mg tablet (Imodium 2 mg PO Q6H PRN Loose Stool 04/07/22 02/02/25 A-D) metolazone 5 mg tablet 5 mg PO QAM 04/07/22 02/02/25 ondansetron HCl 4 mg tablet 4 mg PO Q6H PRN Nausea And Vomiting 04/07/22 02/02/25 simvastatin 40 mg tablet 40 mg PO BEDTIME@21 04/07/22 02/02/25 bisacodyl 10 mg rectal suppository 10 mg MT DAILY PRN Constipation 07/14/22 02/02/25 alprazolam 0.5 mg tablet (Xanax) 0.5 mg PO TID PRN Anxiety 04/29/23 02/02/25 vitamin A and D 1 applic topical DIRECTED 04/29/23 02/02/25 fluticasone propionate 50 1 mcg intranasal BID 03/19/24 02/02/25 mcg/actuation nasal spray,suspension (Flonase Allergy Relief) levothyroxine 150 mcg tablet 150 mcg PO DAILY 03/19/24 02/02/25 trihexyphenidyl 2 mg tablet 2 mg PO TID 03/19/24 02/02/25 white petrolatum (Vaseline jelly, 1 applic topical PRN 03/19/24 02/02/25 topical) apixaban 5 mg tablet (Eliquis) 5 mg PO BID 03/30/24 02/02/25 acetaminophen 325 mg tablet 650 mg PO Q6H 04/22/24 02/02/25 gabapentin 100 mg capsule 200 mg PO QPM 04/22/24 02/02/25 omeprazole 20 mg capsule,delayed 20 mg PO BID 04/22/24 02/02/25 release azelastine 137 mcg (0.1 %) nasal 2 spray intranasal BID 09/29/24 02/02/25 spray diphenhydramine HCl 25 mg capsule 25 mg PO TID PRN Itching 09/29/24 02/02/25 nystatin 100,000 unit/gram topical 1 applic topical BID 09/29/24 02/02/25 powder oxycodone 5 mg tablet 10 mg PO Q6H PRN Pain 09/29/24 02/02/25 tizanidine 4 mg tablet 4 mg PO Q8H PRN Muscle Spasm 09/29/24 02/02/25 fluoxetine 40 mg capsule 40 mg PO DAILY 01/15/25 02/02/25 insulin glargine 100 unit/mL (3 8 unit SUBCUT BEDTIME 01/15/25 02/02/25 mL) subcutaneous pen (Lantus Solostar U-100 Insulin) Previous Rx's ?Medication ?Instructions ?Recorded Stump Telephone Sales Agent #1 ea 11/21/22 CAM walker #1 ea 06/30/24 tramadol 50 mg tablet 50 - 100 mg (1 - 2 x 50 mg) PO Q8H 01/20/25 PRN pain #30 tabs Allergies Allergy/AdvReac Type Severity Reaction Status Date / Time morphine Allergy Unknown Verified 02/02/25 13:15 sulfamethoxazole (From Allergy Rash Verified 02/02/25 13:15 Septra) trimethoprim (From Septra) Allergy Rash Verified 02/02/25 13:15 pregabalin (From Lyrica) AdvReac Loopy/Unste Verified 02/02/25 13:15 anoop Review of Systems General: Reports: 10 or more systems reviewed and unremarkable except in HPI and below Const: Denies: fever(s) or chills Card: Denies: chest pain Resp: Denies: dyspnea or productive cough GI: Denies: abdominal pain, nausea, vomiting or diarrhea : Denies: flank pain Musc: Reports: joint pain (Left shoulder/collarbone), joint swelling (Left shoulder/collarbone) and limited range of motion; Denies: neck pain, back pain, extremity pain, extremity swelling, joint redness, joint warmth or muscle weakness Skin/Breast: Denies: rash Neuro: Denies: headache(s), numbness in extremities or weakness in extremities PFSH ED PFSH: Medical History Diabetic ulcer of left foot Gangrene of left foot Goals of care, counseling/discussion CAD (coronary artery disease) Pulmonary hypertension Elevated troponin History of pulmonary embolism Chest pain 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 Charcot's joint of left foot MRSA bacteremia ESRD (end stage renal disease) ESRD (end stage renal disease) Chronic kidney disease Hyponatremia Influenza A Pneumonia Iron deficiency anemia Acute exacerbation of CHF (congestive heart failure) Bilateral lower extremity edema Neuropathy Chronic renal insufficiency Post laminectomy syndrome Lumbar disc disease with radiculopathy Sciatica associated with disorder of lumbosacral spine Uncontrolled insulin dependent diabetes mellitus Diabetes mellitus type 2, insulin dependent COPD (chronic obstructive pulmonary disease) Hyperlipemia Vitamin D deficiency Parkinson disease Chronic insomnia Stage 4 chronic renal impairment associated with type 2 diabetes mellitus History of CVA (cerebrovascular accident) Anemia in chronic illness Hypertension Fibromyalgia Diabetic neuropathy Hypothyroidism Surgical History S/P shoulder surgery Date of Surgery: 01/20/2025 Surgery: Open reduction internal fixation left midshaft clavicle fracture Implants: The [place] 8 hole superior midshaft clavicle plate with a combination of locking and nonlocking screws Surgeon: Dr. Obdulia MD History of left below knee amputation S/P dialysis catheter insertion History of colonoscopy 2019 Hx of hysterectomy Hx of cholecystectomy Hx of foot surgery Family History Father CAD (coronary artery disease) Mother CAD (coronary artery disease) Diabetes Grandfather CAD (coronary artery disease) Diabetes Social History Smoking and tobacco/nicotine status: never used tobacco/nicotine Quit status (tobacco/nicotine): has quit using Former quit date comment: Quit 30 years ago or more Second hand smoke exposure: No Alcohol intake: current Alcohol intake frequency: holidays/special occasions only Alcohol type: hard liquor Substance/Drug Use: never Additional social history: In past she has been intermittently full code or DNR depending on the admission. Patient is accompanied by her daughters Cyndy who is power of document review attorney and Nereyda. Patient wants full CODE STATUS as discussed with Philip Foster MD on 09/29/2024 Physical Exam Const: COMMON NORMALS: no acute distress, patient oriented x3, no limitations, healthy appearing, alert and well nourished HENMT: COMMON NORMALS: normocephalic and atraumatic HEAD & SCALP: normocephalic and atraumatic Neck/C-Spine: COMMON NORMALS: full ROM, supple and no meningeal signs Chest: OTHER: Swelling to the left collarbone, reproducible tenderness to palpation. Postoperative incision. Resp: COMMON NORMALS: normal respiratory effort, No use of accessory muscles and clear to auscultation bilaterally AUSCULTATION: clear to auscultation bilaterally Cardio: COMMON NORMALS: regular rate and regular rhythm RATE: regular rate RHYTHM: regular rhythm Extremity: COMMON NORMALS: capillary refill normal and no clubbing, cyanosis or edema NARRATIVE EXTREMITY EXAM: Limited range of motion at the left shoulder Neuro: COMMON NORMALS: patient oriented x3, moves all extremities and no sensory deficits noted SENSORIUM/ORIENTATION: Yes alert MENINGEAL SIGNS: Yes no meningeal signs Skin: COMMON NORMALS: no rashes or lesions noted GENERAL SKIN EXAM: no rashes or lesions noted Course Vital Signs: Vital signs: Vital Signs Temperature 98.2 F 02/06/25 17:26 Pulse Rate 85 02/06/25 22:18 Respiratory Rate 48 H 02/06/25 22:18 Blood Pressure 165/77 02/06/25 22:18 Pulse Oximetry 99 02/06/25 22:18 Oxygen Delivery Me thod Room Air 02/06/25 19:43 MDM - Extremity (Nontraumatic) Medical Decision Making This patient presented by ambulance from assisted for shoulder pain, 2 weeks ago had clavicle repair and states that in middle the night she think she rolled over on it as she heard a pop and noted swelling to the left clavicle. On exam there is swelling and tender to palpation, incision appears well-healed. On x-ray by my interpretation appears that there is slight malunion as she likely refractured the sternal end and she will be placed back in a sling and informed to follow back up with orthopedics. She already has pain meds for home. Stable for discharge home. Lab Data Radiology Impressions Shoulder X-Ray 02/06/25 18:33 IMPRESSION: Clavicular fixation plate and screws with healing clavicular fracture. All radiology interpretation(s) finalized by discharge Discharge Plan Discharge Patient Disposition: Home Clinical Impression: Fracture of clavicle, left, closed Qualifiers: Encounter type: subsequent encounter Clavicle location: sternal end Fracture alignment: nondisplaced Fracture healing: with malunion Qualified Code(s): S42.018P - Nondisplaced fracture of sternal end of left clavicle, subsequent encounter for fracture with malunion Condition: Stable Prescriptions: No Action (DME) Stump Telephone Sales Agent See Rx Instructions .Route .MEDSUPPLY Qty: 1 0RF Rx Instructions: As directed (DME) CAM walker See Rx Instructions .Route .MEDSUPPLY Qty: 1 0RF Rx Instructions: As directed bisacodyl 10 mg Suppository 10 mg MT DAILY PRN (Reason: Constipation) vitamin A and D Ointment 1 applic topical DIRECTED Rx Instructions: APPLY TOPICALLY AEVERY SHIFT TO BLATERAL BUTTUCK: CLEANSE WITH SOAP AND WATER AND APPLY A AND D OINTMENT FOR SHEER PREVENTION. alprazolam [Xanax] 0.5 mg Tablet 0.5 mg PO TID PRN (Reason: Anxiety) levothyroxine 150 mcg Tablet 150 mcg PO DAILY trihexyphenidyl 2 mg Tablet 2 mg PO TID Rx Instructions: give with food (meal/snack) fluticasone propionate [Flonase Allergy Relief] 50 mcg/actuation Ponderosa,Suspension 1 mcg INTRANASAL BID white petrolatum [Vaseline] Gel 1 applic TOPICAL PRN Rx Instructions: apply to buttocks to prevent shearing Eliquis 5 mg Tablet 5 mg PO BID diphenhydramine HCl 25 mg Capsule 25 mg PO TID PRN (Reason: Itching) azelastine 137 mcg (0.1 %) Ponderosa,Non-Aerosol 2 spray INTRANASAL BID Rx Instructions: administer into each nostril tizanidine 4 mg Tablet 4 mg PO Q8H PRN (Reason: Muscle Spasm) nystatin 100,000 unit/gram Powder 1 applic TOPICAL BID Rx Instructions: to groin oxycodone 5 mg Tablet 10 mg PO Q6H PRN (Reason: Pain) fluoxetine 40 mg capsule 40 mg PO DAILY insulin glargine [Lantus Solostar U-100 Insulin] 100 unit/mL (3 mL) insulin pen 8 unit SUBCUT BEDTIME furosemide [Lasix] 40 mg Tablet 40 mg PO BID ondansetron HCl 4 mg Tablet 4 mg PO Q6H PRN (Reason: Nausea And Vomiting) loperamide [Imodium A-D] 2 mg Tablet 2 mg PO Q6H PRN (Reason: Loose Stool) metolazone 5 mg Tablet 5 mg PO QAM simvastatin 40 mg Tablet 40 mg PO BEDTIME@21 carbidopa-levodopa 25-100 mg Tablet 1 tab PO TID insulin aspart U-100 [Novolog FlexPen U-100 Insulin] 100 unit/mL (3 mL) Insulin Pen See Rx Instructions .ROUTE .COMPLEX Rx Instructions: sliding scale three times a day. IF BS LESS THAN 60, CALL MD. FOR BS 201-250=2 units 251-300=4 units 301-350=6 units 351-400=8 units call provider for bs <60 or >400 Lumigan 0.01 % Drops 1 drp OPHTHALMIC (EYE) BEDTIME acetaminophen 325 mg Tablet 650 mg PO Q6H omeprazole 20 mg Capsule,Delayed Release(Dr/Ec) 20 mg PO BID gabapentin 100 mg capsule 200 mg PO QPM Rx Instructions: Dose change only tramadol 50 mg tablet 50 - 100 mg PO Q8H PRN (Reason: pain) Qty: 30 0RF Discharge Orders: Discharge ED (Routine); Ordered 02/06/25 Ordered By: Carmine Fleming Referrals: Keo Delvalle DO [Primary Care Provider, Internal Medicine] Patient Instructions: Patient Portal & Fang Instructions Activity Restrictions/Additional Instructions: Please follow-up with your orthopedic surgeon. Please leave the sling on for immobilization. Continue taking home pain medications. Continue dialysis. Return with any new or worsening. Print Language: [place] Coding Level of Care Code ED Wood Box Maker for Chg Fwd Documented by User: Ministerio Guaman DO 02/07/25 03:41 HPI - Extremity Problem General: Chief complaint: Extremity Injury, Upper Stated complaint: left shoulder pain Time Seen by Provider: 02/06/25 18:54 Related Data Home Medications ?Medication ?Instructions ?Recorded ?Confirmed bimatoprost 0.01 % eye drops 1 drp ophthalmic (eye) BEDTIME 04/07/22 02/02/25 (Alexandraigan) carbidopa 25 mg-levodopa 100 mg 1 tab PO TID 04/07/22 02/02/25 tablet furosemide 40 mg tablet (Lasix) 40 mg PO BID 04/07/22 02/02/25 insulin aspart U-100 100 unit/mL See Rx Instructions .Route .COMPLEX 04/07/22 02/02/25 (3 mL) subcutaneous pen (Novolog FlexPen U-100 Insulin aspart) loperamide 2 mg tablet (Imodium 2 mg PO Q6H PRN Loose Stool 04/07/22 02/02/25 A-D) metolazone 5 mg tablet 5 mg PO QAM 04/07/22 02/02/25 ondansetron HCl 4 mg tablet 4 mg PO Q6H PRN Nausea And Vomiting 04/07/22 02/02/25 simvastatin 40 mg tablet 40 mg PO BEDTIME@21 04/07/22 02/02/25 bisacodyl 10 mg rectal suppository 10 mg MT DAILY PRN Constipation 07/14/22 02/02/25 alprazolam 0.5 mg tablet (Xanax) 0.5 mg PO TID PRN Anxiety 04/29/23 02/02/25 vitamin A and D 1 applic topical DIRECTED 04/29/23 02/02/25 fluticasone propionate 50 1 mcg intranasal BID 03/19/24 02/02/25 mcg/actuation nasal spray,suspension (Flonase Allergy Relief) levothyroxine 150 mcg tablet 150 mcg PO DAILY 03/19/24 02/02/25 trihexyphenidyl 2 mg tablet 2 mg PO TID 03/19/24 02/02/25 white petrolatum (Vaseline jelly, 1 applic topical PRN 03/19/24 02/02/25 topical) apixaban 5 mg tablet (Eliquis) 5 mg PO BID 03/30/24 02/02/25 acetaminophen 325 mg tablet 650 mg PO Q6H 04/22/24 02/02/25 gabapentin 100 mg capsule 200 mg PO QPM 04/22/24 02/02/25 omeprazole 20 mg capsule,delayed 20 mg PO BID 04/22/24 02/02/25 release azelastine 137 mcg (0.1 %) nasal 2 spray intranasal BID 09/29/24 02/02/25 spray diphenhydramine HCl 25 mg capsule 25 mg PO TID PRN Itching 09/29/24 02/02/25 nystatin 100,000 unit/gram topical 1 applic topical BID 09/29/24 02/02/25 powder oxycodone 5 mg tablet 10 mg PO Q6H PRN Pain 09/29/24 02/02/25 tizanidine 4 mg tablet 4 mg PO Q8H PRN Muscle Spasm 09/29/24 02/02/25 fluoxetine 40 mg capsule 40 mg PO DAILY 01/15/25 02/02/25 insulin glargine 100 unit/mL (3 8 unit SUBCUT BEDTIME 01/15/25 02/02/25 mL) subcutaneous pen (Lantus Solostar U-100 Insulin) Previous Rx's ?Medication ?Instructions ?Recorded Stump Telephone Sales Agent #1 ea 11/21/22 CAM walker #1 ea 06/30/24 tramadol 50 mg tablet 50 - 100 mg (1 - 2 x 50 mg) PO Q8H 01/20/25 PRN pain #30 tabs Allergies Allergy/AdvReac Type Severity Reaction Status Date / Time morphine Allergy Unknown Verified 02/02/25 13:15 sulfamethoxazole (From Allergy Rash Verified 02/02/25 13:15 Septra) trimethoprim (From Septra) Allergy Rash Verified 02/02/25 13:15 pregabalin (From Lyrica) AdvReac Loopy/Unste Verified 02/02/25 13:15 anoop PFSH ED PFSH: Medical History Diabetic ulcer of left foot Gangrene of left foot Goals of care, counseling/discussion CAD (coronary artery disease) Pulmonary hypertension Elevated troponin History of pulmonary embolism Chest pain 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 Charcot's joint of left foot MRSA bacteremia ESRD (end stage renal disease) ESRD (end stage renal disease) Chronic kidney disease Hyponatremia Influenza A Pneumonia Iron deficiency anemia Acute exacerbation of CHF (congestive heart failure) Bilateral lower extremity edema Neuropathy Chronic renal insufficiency Post laminectomy syndrome Lumbar disc disease with radiculopathy Sciatica associated with disorder of lumbosacral spine Uncontrolled insulin dependent diabetes mellitus Diabetes mellitus type 2, insulin dependent COPD (chronic obstructive pulmonary disease) Hyperlipemia Vitamin D deficiency Parkinson disease Chronic insomnia Stage 4 chronic renal impairment associated with type 2 diabetes mellitus History of CVA (cerebrovascular accident) Anemia in chronic illness Hypertension Fibromyalgia Diabetic neuropathy Hypothyroidism Surgical History S/P shoulder surgery Date of Surgery: 01/20/2025 Surgery: Open reduction internal fixation left midshaft clavicle fracture Implants: [employer] [place] 8 hole superior midshaft clavicle plate with a combination of locking and nonlocking screws Surgeon: Dr. Obdulia MD History of left below knee amputation S/P dialysis catheter insertion History of colonoscopy 2019 Hx of hysterectomy Hx of cholecystectomy Hx of foot surgery Family History Father CAD (coronary artery disease) Mother CAD (coronary artery disease) Diabetes Grandfather CAD (coronary artery disease) Diabetes Social History Smoking and tobacco/nicotine status: never used tobacco/nicotine Quit status (tobacco/nicotine): has quit using Former quit date comment: Quit 30 years ago or more Second hand smoke exposure: No Alcohol intake: current Alcohol intake frequency: holidays/special occasions only Alcohol type: hard liquor Substance/Drug Use: never Additional social history: In past she has been intermittently full code or DNR depending on the admission. Patient is accompanied by her daughters Cyndy who is power of document review attorney and Nereyda. Patient wants full CODE STATUS as discussed with Philip Foster MD on 09/29/2024 Course Vital Signs: Vital signs: Vital Signs Temperature 98.2 F 02/06/25 17:26 Pulse Rate 85 02/06/25 22:18 Respiratory Rate 48 H 02/06/25 22:18 Blood Pressure 165/77 02/06/25 22:18 Pulse Oximetry 99 02/06/25 22:18 Oxygen Delivery Me thod Room Air 02/06/25 19:43 MDM - Extremity (Nontraumatic) Medical Decision Making This patient presented by ambulance from assisted for shoulder pain, 2 weeks ago had clavicle repair and states that in middle the night she think she rolled over on it as she heard a pop and noted swelling to the left clavicle. On exam there is swelling and tender to palpation, incision appears well-healed. On x-ray by my interpretation appears that there is slight malunion as she likely refractured the sternal end and she will be placed back in a sling and informed to follow back up with orthopedics. She already has pain meds for home. Stable for discharge home. This patient was originally seen by Mr. Bernadette PA-C. I agree with his history, evaluation, and treatment. Lab Data Radiology Impressions Shoulder X-Ray 02/06/25 18:33 IMPRESSION: Clavicular fixation plate and screws with healing clavicular fracture. Discharge Plan Discharge Patient Disposition: Home Clinical Impression: Fracture of clavicle, left, closed Qualifiers: Encounter type: subsequent encounter Clavicle location: sternal end Fracture alignment: nondisplaced Fracture healing: with malunion Qualified Code(s): S42.018P - Nondisplaced fracture of sternal end of left clavicle, subsequent encounter for fracture with malunion Condition: Stable Prescriptions: No Action (DME) Stump Telephone Sales Agent See Rx Instructions .Route .MEDSUPPLY Qty: 1 0RF Rx Instructions: As directed (DME) CAM walker See Rx Instructions .Route .MEDSUPPLY Qty: 1 0RF Rx Instructions: As directed bisacodyl 10 mg Suppository 10 mg MT DAILY PRN (Reason: Constipation) vitamin A and D Ointment 1 applic topical DIRECTED Rx Instructions: APPLY TOPICALLY AEVERY SHIFT TO BLATERAL BUTTUCK: CLEANSE WITH SOAP AND WATER AND APPLY A AND D OINTMENT FOR SHEER PREVENTION. alprazolam [Xanax] 0.5 mg Tablet 0.5 mg PO TID PRN (Reason: Anxiety) levothyroxine 150 mcg Tablet 150 mcg PO DAILY trihexyphenidyl 2 mg Tablet 2 mg PO TID Rx Instructions: give with food (meal/snack) fluticasone propionate [Flonase Allergy Relief] 50 mcg/actuation Ponderosa,Suspension 1 mcg INTRANASAL BID white petrolatum [Vaseline] Gel 1 applic TOPICAL PRN Rx Instructions: apply to buttocks to prevent shearing Eliquis 5 mg Tablet 5 mg PO BID diphenhydramine HCl 25 mg Capsule 25 mg PO TID PRN (Reason: Itching) azelastine 137 mcg (0.1 %) [place]onder[place],Non-Aerosol 2 spray INTRANASAL BID Rx Instructions: administer into each nostril tizanidine 4 mg Tablet 4 mg PO Q8H PRN (Reason: Muscle Spasm) nystatin 100,000 unit/gram Powder 1 applic TOPICAL BID Rx Instructions: to groin oxycodone 5 mg Tablet 10 mg PO Q6H PRN (Reason: Pain) fluoxetine 40 mg capsule 40 mg PO DAILY insulin glargine [Lantus Solostar U-100 Insulin] 100 unit/mL (3 mL) insulin pen 8 unit SUBCUT BEDTIME furosemide [Lasix] 40 mg Tablet 40 mg PO BID ondansetron HCl 4 mg Tablet 4 mg PO Q6H PRN (Reason: Nausea And Vomiting) loperamide [Imodium A-D] 2 mg Tablet 2 mg PO Q6H PRN (Reason: Loose Stool) metolazone 5 mg Tablet 5 mg PO QAM simvastatin 40 mg Tablet 40 mg PO BEDTIME@21 carbidopa-levodopa 25-100 mg Tablet 1 tab PO TID insulin aspart U-100 [Novolog FlexPen U-100 Insulin] 100 unit/mL (3 mL) Insulin Pen See Rx Instructions .ROUTE .COMPLEX Rx Instructions: sliding scale three times a day. IF BS LESS THAN 60, CALL MD. FOR BS 201-250=2 units 251-300=4 units 301-350=6 units 351-400=8 units call provider for bs <60 or >400 Lumigan 0.01 % Drops 1 drp OPHTHALMIC (EYE) BEDTIME acetaminophen 325 mg Tablet 650 mg PO Q6H omeprazole 20 mg Capsule,Delayed Release(Dr/Ec) 20 mg PO BID gabapentin 100 mg capsule 200 mg PO QPM Rx Instructions: Dose change only tramadol 50 mg tablet 50 - 100 mg PO Q8H PRN (Reason: pain) Qty: 30 0RF Discharge Orders: Discharge ED (Routine); Ordered 02/06/25 Ordered By: Carmine Fleming Referrals: Keo Delvalle DO [Primary Care Provider, Internal Medicine] Patient Instructions: Patient Portal & Fang Instructions Activity Restrictions/Additional Instructions: Please follow-up with your orthopedic surgeon. Please leave the sling on for immobilization. Continue taking home pain medications. Continue dialysis. Return with any new or worsening. Print Language: [place] Coding Level of Care Code ED Wood Box Maker for Dominick Baca
--- NOTE | 2025-02-06 21:44 | PC.NURSE ---
Report called to Roseanne at [facility], discussed results of xray and the need to follow up with ortho.
[2025-02-06 22:18] VITALS: BP 165/77; PULSE 85; RESP 48; O2SAT 99
== END 2025-02-06 22:19 | disposition home or self-care (01) ==
PROVIDERS: Emergency Provider Physician Assistant; PCP Internal Medicine
DX: S42.018 Nondisplaced fracture of sternal end of left clavicle (principal); Z79.01 Long term (current) use of anticoagulants; Z79.4 Long term (current) use of insulin; I25.10 Atherosclerotic heart disease of native coronary artery without angina pectoris; E11.22 Type 2 diabetes mellitus with diabetic chronic kidney disease; I13.2 Hypertensive heart and chronic kidney disease with heart failure and with stage 5 chronic kidney disease, or end stage renal disease; I50.9 Heart failure, unspecified; N18.6 End stage renal disease; E78.5 Hyperlipidemia, unspecified; Z86.73 Personal history of transient ischemic attack (TIA), and cerebral infarction without residual deficits; Z87.891 Personal history of nicotine dependence; X58.XXXD Exposure to other specified factors, subsequent encounter
CPT/HCPCS: 73030; 99283; A4565; J9999

== ENCOUNTER → 2025-02-12 13:49 | Outpatient (BNVA) | payer MEDICARE, OTHER, MEDICAID, SELFPAY | PROVIDERS: PCP Internal Medicine; Visit Provider Thoracic Surgery (Cardiothoracic Vascular Surgery) | DX: E11.52 Type 2 diabetes mellitus with diabetic peripheral angiopathy with gangrene (principal); E11.621 Type 2 diabetes mellitus with foot ulcer; L97.411 Non-pressure chronic ulcer of right heel and midfoot limited to breakdown of skin | CPT/HCPCS: 97597; A6210 ==

== ENCOUNTER 2025-02-13 07:39 | Inpatient (IN) | payer OTHER, MEDICARE, MEDICAID, SELFPAY ==
[2025-02-13] VITALS (12 sets, daily range): BP systolic 97–164; BP diastolic 52–79; PULSE 56–105; RESP 14–18; TEMP 36.4–37; O2SAT 92–100; BMI 27.1
--- OUTSIDE RECORDS SUMMARY | 2025-02-13 07:45 | XMS_ITS | CCD ---
Author Name Interface, [id number] Address [address] [place] [address] [facility] ecialistsGISSELL Address [address] [place] [address] Care Team Providers Care Sales Donor Recruitment Representative Name Role Phone Jovon COSTA, Kip Angulo Unavailable Unavailable Reason for Visit Social History Date Name Value 01/13/2016 Sex Female
--- NOTE | 2025-02-13 07:46 | ECG_ITS ---
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 Measurements Intervals [place] Rate: 65 P: 0 VT: 0 QRS: 9 QRSD: 93 T: 41 QT: 456 QTc: 475 Interpretive Statements ATRIAL FIBRILLATION POSSIBLE RIGHT VENTRICULAR CONDUCTION DELAY [RSR (QR) IN V1/V2] NONSPECIFIC T-WAVE ABNORMALITY Compared to ECG 10/06/2024 12:23:49 T-wave abnormality now present Electronically Signed On 02-14-2025 11:59:52 CDT by Gabino Feng M.D. [email or web address] [id number]
--- NOTE | 2025-02-13 07:46 | XR_ITS ---
WS: [id number] XR chest 1V portable [id number] REASON FOR EXAM: Weakness FINDINGS: Chest is unchanged compared to 10/06/2024. Mild tortuosity and ectasia of the ascending and descending thoracic aorta with calcification of the aortic arch. Mild cardiomegaly. Mild central pulmonary venous congestion. No acute pulmonary parenchymal or pleural abnormality. Mild degenerative spondylosis in the thoracic spine. Plate and screw fixation of recent left clavicle fracture. XR/XR chest 1V portable [id number] IMPRESSION: Stable chest without acute abnormality as above.
--- NOTE | 2025-02-13 07:47 | ED_ITS ---
HPI - Weakness 2 General: Chief complaint: Syncope Stated complaint: syncope, lethargy, hypotensive Time Seen by Provider: 02/13/25 07:42 History of Present Illness: 79-year-old woman who resides in a [facility], has end-stage renal disease and is on dialysis, diabetes, pulmonary embolism, chronic anticoagulation on Eliquis, depression, hypertension, Parkinson's, COPD, diabetic neuropathy, hypothyroidism and fibromyalgia who presents to the emergency room from dialysis by ambulance after having had a near syncopal episode with low blood pressure. Says she has not been feeling real well. More this morning. No specific complaints. She does complain of her left collarbone hurting as it is broken. On presentation she is alert and oriented. No altered mental status. No focal motor deficits. Does not have any chest pain. No abdominal pain. Blood pressure still bit soft. Related Data Home Medications ?Medication ?Instructions ?Recorded ?Confirmed bimatoprost 0.01 % eye drops 1 drp ophthalmic (eye) BE DTIME 04/07/22 02/02/25 (Pepe) carbidopa 25 mg-levodopa 100 mg 1 tab PO TID 04/07/22 02/02/25 tablet furosemide 40 mg tablet (Lasix) 40 mg PO BID 04/07/22 02/02/25 insulin aspart U-100 100 unit/mL See Rx Instructions . Route .COMPLEX 04/07/22 02/02/25 (3 mL) subcutaneous pen (Novolog FlexPen U-100 Insulin aspart) loperamide 2 mg tablet (Imodium 2 mg PO Q6H PRN Loose Stool 04/07/22 02/02/25 A-D) metolazone 5 mg tablet 5 mg PO QAM 04/07/22 5 ondansetron HCl 4 mg tablet 4 mg PO Q6H PRN Nausea And Vomiting 04/07/22 02/02/25 simvastatin 40 mg tablet 40 mg PO BEDTIME@21 04/07/22 02/02/25 bisacodyl 10 mg rectal suppository 10 mg CA DAILY PRN Constipation 07/14/22 02/02/25 alprazolam 0.5 mg tablet (Xanax) 0.5 mg PO TID PRN Anx iety 04/29/23 02/02/25 vitamin A and D 1 applic topical DIRECTED 04/29/23 02/02/25 fluticasone propionate 50 1 mcg intranasal BID 4 02/02/25 mcg/actuation nasal spray,suspension (Flonase Allergy Relief) levothyroxine 150 mcg tablet 150 mcg PO DAILY 03/19/24 02/02/25 trihexyphenidyl 2 mg tablet 2 mg PO TID 03/19/2402/02 white petrolatum (Vaseline jelly, 1 applic topical PRN 03/19/24 02/02/25 topical) apixaban 5 mg tablet (Eliquis) 5 mg PO BID 03/30/24 acetaminophen 325 mg tablet 650 mg PO Q6H 04/22/2410/22 gabapentin 100 mg capsule 200 mg PO QPM 04/22/2402/02 omeprazole 20 mg capsule,delayed 20 mg PO BID 04/22/24 02/02/25 release azelastine 137 mcg (0.1 %) nasal 2 spray intranasal BI D 09/29/24 02/02/25 spray diphenhydramine HCl 25 mg capsule 25 mg PO TID PRN Itc singh 09/29/24 02/02/25 nystatin 100,000 unit/gram topical 1 applic topical BI D 09/29/24 02/02/25 powder oxycodone 5 mg tablet 10 mg PO Q6H PRN Pain 02/02/25 tizanidine 4 mg tablet 4 mg PO Q8H PRN Muscle Spasm 09/29/24 02/02/25 fluoxetine 40 mg capsule 40 mg PO DAILY 01/15/25 1010/22 insulin glargine 100 unit/mL (3 8 unit SUBCUT BEDTIME 01/15/25 02/02/25 mL) subcutaneous pen (Lantus Solostar U-100 Insulin) Previous Rx's ?Medication ?Instructions ?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 Skin symptoms: Negative except as documented in HPI. Eye symptoms: Negative except as documented in HPI. ENMT symptoms: Negative except as documented in HPI. Respiratory symptoms: Negative except as documented in HPI. Cardiovascular symptoms: Negative except as documented in HPI. Gastrointestinal symptoms: Negative except as documented in HPI. Genitourinary symptoms: Negative except as documented in HPI. Musculoskeletal symptoms: Negative except as documented in HPI. Neurologic symptoms: Negative except as documented in HPI. Psychiatric symptoms: Negative except as documented in HPI. Endocrine symptoms: Negative except as documented in HPI. PFSH ED 2 PFSH: Medical History (Updated 02/13/25 @ 09:12 by Jazmyne Narayanan MD) Diabetic ulcer of left foot Gangrene of left foot Goals of care, counseling/discussion CAD (coronary artery disease) Pulmonary hypertension Elevated troponin History of pulmonary embolism Chest pain 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 Charcot's joint of left foot MRSA bacteremia ESRD (end stage renal disease) ESRD (end stage renal disease) Chronic kidney disease Hyponatremia Influenza A Pneumonia Iron deficiency anemia Acute exacerbation of CHF (congestive heart failure) Bilateral lower extremity edema Neuropathy Chronic renal insufficiency Post laminectomy syndrome Lumbar disc disease with radiculopathy Sciatica associated with disorder of lumbosacral spine Uncontrolled insulin dependent diabetes mellitus Diabetes mellitus type 2, insulin dependent COPD (chronic obstructive pulmonary disease) Hyperlipemia Vitamin D deficiency Parkinson disease Chronic insomnia Stage 4 chronic renal impairment associated with type 2 diabetes mellitus History of CVA (cerebrovascular accident) Anemia in chronic illness Hypertension Fibromyalgia Diabetic neuropathy Hypothyroidism Surgical History S/P shoulder surgery Date of Surgery: 01/20/2025 Surgery: Open reduction internal fixation left midshaft clavicle fracture Implants: The [place] 8 hole superior midshaft clavicle plate with a combination of locking and nonlocking screws Surgeon: Dr. Obdulia MD History of left below knee amputation S/P dialysis catheter insertion History of colonoscopy 2019 Hx of hysterectomy Hx of cholecystectomy Hx of foot surgery Family History Father CAD (coronary artery disease) Mother CAD (coronary artery disease) Diabetes Grandfather CAD (coronary artery disease) Diabetes Social History Smoking and tobacco/nicotine status: never used tobacco/nicotine Quit status (tobacco/nicotine): has quit using Former quit date comment: Quit 30 years ago or more Second hand smoke exposure: No Alcohol intake: current Alcohol intake frequency: holidays/special occasions only Alcohol type: hard liquor Substance/Drug Use: never Additional social history: In past she has been intermittently full code or DNR depending on the admission. Patient is accompanied by her daughters Cyndy who is power of litigation attorney associate and Nereyda. Patient wants full CODE STATUS as discussed with Philip Foster MD on 09/29/2024 Physical Exam 2 Narrative: EXAM NARRATIVE: General: Alert, no acute distress. Skin: Warm, dry. Head: Normocephalic, atraumatic. Neck: Supple, trachea midline. Eye: Extraocular movements are intact. Ears, nose, mouth and throat: Tacky oral mucosa Cardiovascular: Irregular, Normal peripheral perfusion. Respiratory: Lungs are clear to auscultation, respirations are non-labored, breath sounds are equal, Symmetrical chest wall expansion. Gastrointestinal: Soft, Nontender, Non distended Musculoskeletal: Normal ROM, no deformity. Neurological: Alert and oriented, No focal neurological deficit observed. Psychiatric: Cooperative, appropriate mood & affect. Course 2 Vital Signs: Vital signs: Vital Signs Temperature 98.1 F 02/13/25 07:39 Pulse Rate 61 02/13/25 09:57 Respiratory Rate 16 02/13/25 09:57 Blood Pressure 135/55 02/13/25 09:57 Pulse Oximetry 98 02/13/25 09:57 Oxygen Delivery Me thod Room Air 02/13/25 09:57 MDM - Weakness Medical Decision Making Medical decision making: Differential diagnosis for patient presenting with generalized weakness including but not limited to and based on the above HPI, review of systems and physical exam: Sepsis. Dehydration. Renal failure. Electrolyte abnormalities. Anemia. Congestive heart failure. Hypotension. Coronary syndrome. Hepatitis. Cirrhosis. Infections such as pneumonia, urinary tract infection, [place] illness, Cellulitis, Viral infections including influenza and Covid-19. Workup: labwork and lab/exam driven imaging ordered to evaluate, rule in and rule out above pathologies. EKG: Time 7:40 AM. Rate 65. Atrial fibrillation with controlled rate, No ST-T changes, no ectopy, This was reviewed and interpreted by myself the ER physician at 7:44 AM Chest x-ray: No acute process. No infiltrate. No pneumothorax. This was reviewed and interpreted by myself the emergency room physician. I also reviewed the radiology report. Lab Review: Laboratory results were reviewed and interpreted by myself the emergency room physician. Leukocytosis with a white count of 13,000. Slightly worsening anemia with a hemoglobin of 8.4. BUN and creatinine are 21 and 3 which would be expected in this dialysis patient. Potassium is normal at 4.1. Urine is positive for infection. I reviewed the patient's medical record. 79-year-old woman who resides in a [facility], has end-stage renal disease and is on dialysis, diabetes, pulmonary embolism, chronic anticoagulation on Eliquis, depression, hypertension, Parkinson's, COPD, diabetic neuropathy, hypothyroidism and fibromyalgia. Looking at micro she does have a history of ESBL E. coli Reexamination: Patient remained stable. No increased work of breathing. No altered mental status. No focal motor deficits. Consultation: I spoke with Dr. Pack who is on-call for the hospital service who agrees to admission Assessment and plan: Urinary tract infection Near syncope End-stage renal disease on dialysis ?Elevated white count but normal lactate. With her having been hypotensive she may be early SIRS/sepsis. - 1 L normal saline bolus with response in her blood pressure. She is a dialysis patient so I did not give full sepsis bolus. -Broad-spectrum antibiotics were administered. Meropenem to cover possible recurrent ESBL -Sepsis quality measures. -Lactic acid with a reflex was ordered. -Blood cultures were ordered. ?I reevaluated the patient's volume status after sepsis fluids were given. -I discussed the patient with the hospitalist on-call who is admitting the patient. - Discussed findings and plan with patient. Answered any questions. - All laboratory values were reviewed and interpreted personally by myself, the ER physician - All imaging was reviewed and interpreted personally by myself, the ER physician. - Evaluation and treatment of this problem were appropriate in the emergency setting Critical Care: -I spent a total of 40 minutes of critical care time managing the patient, independent of any other practitioner. -The time involved in the performance of separately reportable procedures was not counted towards critical care time. Lab Data 02/13/25 07:25 02/13/25 07:25 Radiology Impressions Chest X-Ray 02/13/25 07:46 IMPRESSION: Stable chest without acute abnormality as above. Laboratory Results WBC 13.39 10^3/uL (3.29-11.43) H 02/13/25 07:25 RBC 3.01 10^6/uL (3.85-5.65) L 02/13/25 07: Hgb 8.40 g/dL (11.27-16.99) L 02/13/25 07: Hct 26.5 % (36-47) L 02/13/25 07:25 MCV 88.0 fl (85-98) 02/13/25 07: MCH 27.9 pg (27-33) 02/13/25 07: MCHC 31.7 g/dL (30-55) 02/13/25 07:25 RDW 14.6 % (12.1-15.1) 02/13/25 07:25 Plt Count 258 10^3/cmm (157-399) 02/13/25 07:25 MPV 11.1 fL (7.4-10.4) H 02/13/25 07:25 Neut % (Auto) 88.7 % 02/13/25 07:25 Lymph % (Auto) 5.1 % 02/13/25 07:25 [place] % (Auto) 4.0 % 02/13/25 07:25 Eos % (Auto) 0.7 % 02/13/25 07:25 Baso % (Auto) 0.5 % 02/13/25 07:25 Neut # (Auto) 11.87 10^3/uL (1.8-7.7) H 02/13/25 07:25 Lymph # (Auto) 0.7 10^3/uL (0.8-4.8) L 02/13/25 07:25 [place] # (Auto) 0.5 10^3/uL (0.2-0.9) 02/13/25 07:25 Eos # (Auto) 0.1 10^3/uL (0.0-0.8) 02/13/25 07:25 Baso # (Auto) 0.1 10^3/uL (0.0-0.1) 02/13/25 07:25 Nucleated RBC % (auto) 0 % 02/13/25 07:25 Nucleated RBCs # 0.0 /100WBC 02/13/25 07:25 Sodium 138 mmol/L (136-145) 02/13/25 07:25 Potassium 4.1 mmol/L (3.5-5.1) 02/13/25 07:25 Chloride 96 mmol/L (98-107) L 02/13/25 07:25 Carbon Dioxide 28 mmol/L (22-29) 02/13/25 07:25 Anion Gap 18.1 (5-19) 02/13/25 07:25 BUN 21 mg/dL (8-23) 02/13/25 07:25 Creatinine 3.0 mg/dL (0.5-0.9) H 02/13/25 07:25 GFR Calculation Not Reportable 02/13/25 07:25 Glucose 171 mg/dL (65-115) H 02/13/25 07:25 Calculated Osmolality 293 mOsm/kg (285-295) 02/13/25 07:25 Lactic Acid 1.7 mmol/L (0.5-2.2) 02/13/25 07:25 Calcium 8.8 mg/dL (8.5-10.5) 02/13/25 07:25 Total Bilirubin 1.0 mg/dL (0.15-1.2) 02/13/25 07:25 AST 7 U/L (0-32) 02/13/25 07:25 ALT < 5 U/L (0-33) 02/13/25 07:25 Alkaline Phosphatase 142 U/L (35-105) H 02/13/25 07:25 Troponin T Baseline 43 ng/L (0-10) H 02/13/25 07:25 Troponin T 120 Minute 31.38 ng/L (0-10) H 02/13/25 08:52 Delta Troponin T -11.62 ABS# (0-10) L 02/13/25 08:52 Total Protein 6.7 g/dL (6.6-8.7) 02/13/25 07:25 Albumin 3.9 g/dL (3.5-5.2) 02/13/25 07:25 Globulin 2.8 g/dL (1.3-4.6) 02/13/25 07:25 Urine Color Yellow (Yellow) 02/13/25 07:50 Urine Appearance Cloudy (CLEAR) A 02/13/25 07:50 Urine pH 8.0 (5-7) A 02/13/25 07:50 Ur Specific [place] 1.010 (1.005-1.030) 02/13/25 07:50 Urine Protein 1+ (Negative) A 02/13/25 07:50 Urine Glucose (UA) Negative (Normal) 02/13/25 07:50 Urine Ketones Negative (Negative) 02/13/25 07:50 Urine Blood 1+ (Negative) A 02/13/25 07:50 Urine Nitrate Negative (Negative) 02/13/25 07:50 Urine Bilirubin Negative (Negative) 02/13/25 07:50 Urine Urobilinogen 0.2 mg/dL (Negative) 02/13/25 07:50 Ur Leukocyte Esterase 3+ (Negative) A 02/13/25 07:50 Urine RBC 0-2 /hpf (0-2) 02/13/25 07:50 Urine WBC >100 /hpf (0-5) H 02/13/25 07:50 Ur Squamous Epith Cells 0-5 /hpf (0-5) 02/13/25 07:50 Amorphous Sediment Not Reportable 02/13/25 07:50 Urine Bacteria Trace /hpf (NONE) 02/13/25 07:50 Hyaline Casts 27.69 /lpf 02/13/25 07:50 Influenza A (PCR) Negative (Negative) 02/13/25 07:45 Influenza Type B (PCR) Negative (Negative) 02/13/25 07:45 RSV (PCR) Negative (Negative) 02/13/25 07:45 SARS-CoV-2 (PCR) Negative (Negative) 02/13/25 07:45 All radiology interpretation(s) finalized by discharge Discharge Plan Discharge Admit Provider: Nic Pack Clinical Impression: Urinary tract infection, Syncope, Acute hypotension, ESRD on dialysis Condition: Stable Coding Level of Care Code ED Preparation Supervisor Freezing for Chg Phuong
--- OUTSIDE RECORDS SUMMARY | 2025-02-13 07:48 | XMS_ITS | Continuity of Care Document ---
Author Organization [employer] ([facility]) Address [address] [place] [id number] Insurance Providers Payer Plan Claims Address Claims Phone Policy Number Group Number Relation Employer Guarantor Name Guarantor Guarantor Address Guarant[place] [address], COUNT INCLUDES [facility] [place] [id number] tel:[phone] TRICAR E FOR LIFE ALL [place] TR[place] RE FOR LIFE ALL [facility] [address], [place] [address] tel:[phone] [id number] MEDICA RE MEDIC ARE tel:[phone] [id number] Problems Condition ICD9 code ICD10 code SNOMED code Start Date End Date S tatus Body mass index (BMI) 34.0-34.9, adult Z68.34 05/14/2024 Active long-term (current) use of anticoagulants Z79.01 04/02/2024 Active [...] Active Corns and callosities L84 10/27/2024 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 Refere nce Range Blood chemistry[[id number]] Glucose [Mass/volume] in Serum or Plasma [2345-7] 02/12/2025 04:06 PM 150 mg/dL N Blood chemistry[[id number]] Glucose [Mass/volume] in Serum or Plasma [2345-7] 02/12/2025 10:10 AM 94 mg/dL N Blood chemistry[[id number]] Glucose [Mass/volume] in Serum or Plasma [2345-7] 02/12/2025 01:27 PM 109 mg/dL N Blood chemistry[[id number]] Glucose [Mass/volume] in Serum or Plasma [2345-7] 02/11/2025 04:21 PM 109 mg/dL N Blood chemistry[[id number]] Glucose [Mass/volume] in Serum or Plasma [2345-7] 02/11/2025 09:05 AM 116 mg/dL N Blood chemistry[[id number]] Glucose [Mass/volume] in Serum or Plasma [2345-7] 02/11/2025 09:45 AM 101 mg/dL N Blood chemistry[[id number]] Glucose [Mass/volume] in Serum or Plasma [2345-7] 02/10/2025 09:00 AM 136 mg/dL N Blood chemistry[[id number]] Glucose [Mass/volume] in Serum or Plasma [2345-7] 02/10/2025 07:41 AM 119 mg/dL N Blood chemistry[[id number]] Glucose [Mass/volume] in Serum or Plasma [2345-7] 02/10/2025 01:37 PM 105 mg/dL N Blood chemistry[[id number]] Glucose [Mass/volume] in Serum or Plasma [2345-7] 02/09/2025 04:53 PM 143 mg/dL N Blood chemistry[[id number]] Glucose [Mass/volume] in Serum or Plasma [2345-7] 02/09/2025 10:12 AM 99 mg/dL N Blood chemistry[[id number]] Glucose [Mass/volume] in Serum or Plasma [2345-7] 02/09/2025 10:10 AM 122 mg/dL N Blood chemistry[[id number]] Glucose [Mass/volume] in Serum or Plasma [2345-7] 02/08/2025 10:19 AM 235 mg/dL N Blood chemistry[[id number]] Glucose [Mass/volume] in Serum or Plasma [2345-7] 02/08/2025 05:29 PM 125 mg/dL N Blood chemistry[[id number]] Glucose [Mass/volume] in Serum or Plasma [2345-7] 02/08/2025 10:23 AM 107 mg/dL N Blood chemistry[[id number]] Glucose [Mass/volume] in Serum or Plasma [2345-7] 02/07/2025 05:55 PM 200 mg/dL N Blood chemistry[[id number]] Glucose [Mass/volume] in Serum or Plasma [2345-7] 02/07/2025 09:21 AM 130 mg/dL N Blood chemistry[[id number]] Glucose [Mass/volume] in Serum or Plasma [2345-7] 02/07/2025 01:23 PM 105 mg/dL N Blood chemistry[[id number]] Glucose [Mass/volume] in Serum or Plasma [2345-7] 02/06/2025 06:01 AM 117 mg/dL N Blood chemistry[[id number]] Glucose [Mass/volume] in Serum or Plasma [2345-7] 02/06/2025 10:15 AM 123 mg/dL N Blood chemistry[[id number]] Glucose [Mass/volume] in Serum or Plasma [2345-7] 02/05/2025 10:39 AM 128 mg/dL N Blood chemistry[[id number]] Glucose [Mass/volume] in Serum or Plasma [2345-7] 02/05/2025 05:12 PM 140 mg/dL N Blood chemistry[[id number]] Glucose [Mass/volume] in Serum or Plasma [2345-7] 02/05/2025 01:09 PM 129 mg/dL N Blood chemistry[[id number]] Glucose [Mass/volume] in Serum or Plasma [2345-7] 02/04/2025 04:13 PM 126 mg/dL N Blood chemistry[[id number]] Glucose [Mass/volume] in Serum or Plasma [2345-7] 02/04/2025 09:11 AM 152 mg/dL N Blood chemistry[[id number]] Glucose [Mass/volume] in Serum or Plasma [2345-7] 02/04/2025 10:13 AM 104 mg/dL N Blood chemistry[[id number]] Glucose [Mass/volume] in Serum or Plasma [2345-7] 02/03/2025 05:16 PM 115 mg/dL N Blood chemistry[[id number]] Glucose [Mass/volume] in Serum or Plasma [2345-7] 02/03/2025 09:28 AM 144 mg/dL N Blood chemistry[[id number]] Glucose [Mass/volume] in Serum or Plasma [2345-7] 02/03/2025 12:33 PM 117 mg/dL N Blood chemistry[[id number]] Glucose [Mass/volume] in Serum or Plasma [2345-7] 02/02/2025 10:52 AM 134 mg/dL N Blood chemistry[[id number]] Glucose [Mass/volume] in Serum or Plasma [2345-7] 02/02/2025 05:21 PM 107 mg/dL N Blood chemistry[[id number]] Glucose [Mass/volume] in Serum or Plasma [2345-7] 02/02/2025 09:56 AM 140 mg/dL N Blood chemistry[[id number]] Glucose [Mass/volume] in Serum or Plasma [2345-7] 02/01/2025 10:23 AM 92 mg/dL N Blood chemistry[[id number]] Glucose [Mass/volume] in Serum or Plasma [2345-7] 02/01/2025 05:20 PM 107 mg/dL N Blood chemistry[[id number]] Glucose [Mass/volume] in Serum or Plasma [2345-7] 02/01/2025 12:15 PM 101 mg/dL N Blood chemistry[[id number]] Glucose [Mass/volume] in Serum or Plasma [2345-7] 01/31/2025 11:30 AM 109 mg/dL N Blood chemistry[[id number]] Glucose [Mass/volume] in Serum or Plasma [2345-7] 01/31/2025 06:02 AM 107 mg/dL N Blood chemistry[[id number]] Glucose [Mass/volume] in Serum or Plasma [2345-7] 01/31/2025 12:47 PM 108 mg/dL N Blood chemistry[[id number]] Glucose [Mass/volume] in Serum or Plasma [2345-7] 01/30/2025 09:10 AM 131 mg/dL N Blood chemistry[[id number]] Glucose [Mass/volume] in Serum or Plasma [2345-7] 01/30/2025 06:17 AM 140 mg/dL N Blood chemistry[[id number]] Glucose [Mass/volume] in Serum or Plasma [2345-7] 01/30/2025 10:16 AM 103 mg/dL N Blood chemistry[[id number]] Glucose [Mass/volume] in Serum or Plasma [2345-7] 01/29/2025 05:21 PM 200 mg/dL N Blood chemistry[[id number]] Glucose [Mass/volume] in Serum or Plasma [2345-7] 01/29/2025 10:18 AM 104 mg/dL N Blood chemistry[[id number]] Glucose [Mass/volume] in Serum or Plasma [2345-7] 01/29/2025 11:51 AM 130 mg/dL N Blood chemistry[[id number]] Glucose [Mass/volume] in Serum or Plasma [2345-7] 01/28/2025 04:20 PM 147 mg/dL N Blood chemistry[[id number]] Glucose [Mass/volume] in Serum or Plasma [2345-7] 01/28/2025 09:39 AM 150 mg/dL N Blood chemistry[[id number]] Glucose [Mass/volume] in Serum or Plasma [2345-7] 01/28/2025 01:43 PM 159 mg/dL N Blood chemistry[[id number]] Glucose [Mass/volume] in Serum or Plasma [2345-7] 01/27/2025 10:40 AM 124 mg/dL N Blood chemistry[[id number]] Glucose [Mass/volume] in Serum or Plasma [2345-7] 01/27/2025 05:36 PM 145 mg/dL N Blood chemistry[[id number]] Glucose [Mass/volume] in Serum or Plasma [2345-7] 01/27/2025 12:21 PM 127 mg/dL N Blood chemistry[[id number]] Glucose [Mass/volume] in Serum or Plasma [2345-7] 01/26/2025 05:19 PM 160 mg/dL N Blood chemistry[[id number]] Glucose [Mass/volume] in Serum or Plasma [2345-7] 01/26/2025 10:14 AM 118 mg/dL N Blood chemistry[[id number]] Glucose [Mass/volume] in Serum or Plasma [2345-7] 01/26/2025 10:06 AM 158 mg/dL N Blood chemistry[[id number]] Glucose [Mass/volume] in Serum or Plasma [2345-7] 01/25/2025 03:41 PM 236 mg/dL N Blood chemistry[[id number]] Glucose [Mass/volume] in Serum or Plasma [2345-7] 01/25/2025 09:56 AM 155 mg/dL N Blood chemistry[[id number]] Glucose [Mass/volume] in Serum or Plasma [2345-7] 01/25/2025 01:00 PM 114 mg/dL N Blood chemistry[[id number]] Glucose [Mass/volume] in Serum or Plasma [2345-7] 01/24/2025 05:28 PM 155 mg/dL N Blood chemistry[[id number]] Glucose [Mass/volume] in Serum or Plasma [2345-7] 01/24/2025 09:00 AM 126 mg/dL N Blood chemistry[[id number]] Glucose [Mass/volume] in Serum or Plasma [2345-7] 01/24/2025 10:04 AM 128 mg/dL N Blood chemistry[[id number]] Glucose [Mass/volume] in Serum or Plasma [2345-7] 01/23/2025 10:59 AM 159 mg/dL N Blood chemistry[[id number]] Glucose [Mass/volume] in Serum or Plasma [2345-7] 01/23/2025 05:38 PM 110 mg/dL N Blood chemistry[[id number]] Glucose [Mass/volume] in Serum or Plasma [2345-7] 01/23/2025 10:31 AM 167 mg/dL N Blood chemistry[[id number]] Glucose [Mass/volume] in Serum or Plasma [2345-7] 01/22/2025 03:48 PM 197 mg/dL N Blood chemistry[[id number]] Glucose [Mass/volume] in Serum or Plasma [2345-7] 01/22/2025 09:14 AM 151 mg/dL N Blood chemistry[[id number]] Glucose [Mass/volume] in Serum or Plasma [2345-7] 01/22/2025 11:50 AM 173 mg/dL N Blood chemistry[[id number]] Glucose [Mass/volume] in Serum or Plasma [2345-7] 01/21/2025 04:09 PM 147 mg/dL N Blood chemistry[[id number]] Glucose [Mass/volume] in Serum or Plasma [2345-7] 01/21/2025 09:26 AM 164 mg/dL N Blood chemistry[[id number]] Glucose [Mass/volume] in Serum or Plasma [2345-7] 01/21/2025 12:24 PM 141 mg/dL N Blood chemistry[[id number]] Glucose [Mass/volume] in Serum or Plasma [2345-7] 01/20/2025 10:01 AM 247 mg/dL N Blood chemistry[[id number]] Glucose [Mass/volume] in Serum or Plasma [2345-7] 01/19/2025 10:39 AM 165 mg/dL N Blood chemistry[[id number]] Glucose [Mass/volume] in Serum or Plasma [2345-7] 01/19/2025 04:53 PM 185 mg/dL N Blood chemistry[[id number]] Glucose [Mass/volume] in Serum or Plasma [2345-7] 01/19/2025 10:09 AM 132 mg/dL N Blood chemistry[[id number]] Glucose [Mass/volume] in Serum or Plasma [2345-7] 01/18/2025 04:27 PM 124 mg/dL N Blood chemistry[[id number]] Glucose [Mass/volume] in Serum or Plasma [2345-7] 01/18/2025 09:58 AM 139 mg/dL N Blood chemistry[[id number]] Glucose [Mass/volume] in Serum or Plasma [2345-7] 01/18/2025 10:06 AM 110 mg/dL N Blood chemistry[[id number]] Glucose [Mass/volume] in Serum or Plasma [2345-7] 01/17/2025 05:47 PM 108 mg/dL N Blood chemistry[[id number]] Glucose [Mass/volume] in Serum or Plasma [2345-7] 01/17/2025 10:03 AM 130 mg/dL N Blood chemistry[[id number]] Glucose [Mass/volume] in Serum or Plasma [2345-7] 01/17/2025 10:26 AM 140 mg/dL N Blood chemistry[[id number]] Glucose [Mass/volume] in Serum or Plasma [2345-7] 01/16/2025 10:21 AM 136 mg/dL N Blood chemistry[[id number]] Glucose [Mass/volume] in Serum or Plasma [2345-7] 01/16/2025 04:15 PM 104 mg/dL N Blood chemistry[[id number]] Glucose [Mass/volume] in Serum or Plasma [2345-7] 01/16/2025 10:10 AM 126 mg/dL N Blood chemistry[[id number]] Glucose [Mass/volume] in Serum or Plasma [2345-7] 01/15/2025 10:00 AM 147 mg/dL N Blood chemistry[[id number]] Glucose [Mass/volume] in Serum or Plasma [2345-7] 01/15/2025 11:14 AM 102 mg/dL N Blood chemistry[[id number]] Glucose [Mass/volume] in Serum or Plasma [2345-7] 01/15/2025 10:04 AM 102 mg/dL N Blood chemistry[[id number]] Glucose [Mass/volume] in Serum or Plasma [2345-7] 01/14/2025 10:40 AM 128 mg/dL N Blood chemistry[[id number]] Glucose [Mass/volume] in Serum or Plasma [2345-7] 01/14/2025 10:01 AM 107 mg/dL N Blood chemistry[[id number]] Glucose [Mass/volume] in Serum or Plasma [2345-7] 01/13/2025 05:10 PM 99 mg/dL N Blood chemistry[[id number]] Glucose [Mass/volume] in Serum or Plasma [2345-7] 01/13/2025 09:26 AM 107 mg/dL N Blood chemistry[[id number]] Glucose [Mass/volume] in Serum or Plasma [2345-7] 01/13/2025 10:25 AM 80 mg/dL N Blood chemistry[[id number]] Glucose [Mass/volume] in Serum or Plasma [2345-7] 01/12/2025 04:47 PM 107 mg/dL N Blood chemistry[[id number]] Glucose [Mass/volume] in Serum or Plasma [2345-7] 01/12/2025 10:00 AM 101 mg/dL N Blood chemistry[[id number]] Glucose [Mass/volume] in Serum or Plasma [2345-7] 01/12/2025 09:47 AM 93 mg/dL N Blood chemistry[[id number]] Glucose [Mass/volume] in Serum or Plasma [2345-7] 01/11/2025 05:01 PM 127 mg/dL N Blood chemistry[[id number]] Glucose [Mass/volume] in Serum or Plasma [2345-7] 01/11/2025 09:30 AM 107 mg/dL N Blood chemistry[[id number]] Glucose [Mass/volume] in Serum or Plasma [2345-7] 01/11/2025 12:07 PM 102 mg/dL N Blood chemistry[[id number]] Glucose [Mass/volume] in Serum or Plasma [2345-7] 01/10/2025 05:55 PM 161 mg/dL N Blood chemistry[[id number]] Glucose [Mass/volume] in Serum or Plasma [2345-7] 01/10/2025 08:53 AM 125 mg/dL N Blood chemistry[[id number]] Glucose [Mass/volume] in Serum or Plasma [2345-7] 01/10/2025 12:46 PM 95 mg/dL N Blood chemistry[[id number]] Glucose [Mass/volume] in Serum or Plasma [2345-7] 01/09/2025 10:26 AM 139 mg/dL N Blood chemistry[[id number]] Glucose [Mass/volume] in Serum or Plasma [2345-7] 01/09/2025 05:08 PM 108 mg/dL N Blood chemistry[[id number]] Glucose [Mass/volume] in Serum or Plasma [2345-7] 01/09/2025 10:03 AM 129 mg/dL N Blood chemistry[[id number]] Glucose [Mass/volume] in Serum or Plasma [2345-7] 01/08/2025 05:50 PM 115 mg/dL N Blood chemistry[[id number]] Glucose [Mass/volume] in Serum or Plasma [2345-7] 01/08/2025 10:21 AM 97 mg/dL N Blood chemistry[[id number]] Glucose [Mass/volume] in Serum or Plasma [2345-7] 01/08/2025 12:14 PM 100 mg/dL N Blood chemistry[[id number]] Glucose [Mass/volume] in Serum or Plasma [2345-7] 01/07/2025 10:45 AM 125 mg/dL N Blood chemistry[[id number]] Glucose [Mass/volume] in Serum or Plasma [2345-7] 01/07/2025 05:26 PM 108 mg/dL N Blood chemistry[[id number]] Glucose [Mass/volume] in Serum or Plasma [2345-7] 01/07/2025 10:03 AM 120 mg/dL N Blood chemistry[[id number]] Glucose [Mass/volume] in Serum or Plasma [2345-7] 01/06/2025 04:46 PM 124 mg/dL N Blood chemistry[[id number]] Glucose [Mass/volume] in Serum or Plasma [2345-7] 01/06/2025 09:27 AM 143 mg/dL N Blood chemistry[[id number]] Glucose [Mass/volume] in Serum or Plasma [2345-7] 01/06/2025 11:32 AM 103 mg/dL N Blood chemistry[[id number]] Glucose [Mass/volume] in Serum or Plasma [2345-7] 01/05/2025 05:42 PM 107 mg/dL N Blood chemistry[[id number]] Glucose [Mass/volume] in Serum or Plasma [2345-7] 01/05/2025 09:56 AM 108 mg/dL N Blood chemistry[[id number]] Glucose [Mass/volume] in Serum or Plasma [2345-7] 01/05/2025 10:09 AM 87 mg/dL N Blood chemistry[[id number]] Glucose [Mass/volume] in Serum or Plasma [2345-7] 01/04/2025 04:58 PM 130 mg/dL N Blood chemistry[[id number]] Glucose [Mass/volume] in Serum or Plasma [2345-7] 01/04/2025 10:19 AM 109 mg/dL N Blood chemistry[[id number]] Glucose [Mass/volume] in Serum or Plasma [2345-7] 01/04/2025 10:00 AM 102 mg/dL N Blood chemistry[[id number]] Glucose [Mass/volume] in Serum or Plasma [2345-7] 01/03/2025 04:41 PM 114 mg/dL N Blood chemistry[[id number]] Glucose [Mass/volume] in Serum or Plasma [2345-7] 01/03/2025 10:37 AM 109 mg/dL N Blood chemistry[[id number]] Glucose [Mass/volume] in Serum or Plasma [2345-7] 01/03/2025 10:00 AM 118 mg/dL N Blood chemistry[[id number]] Glucose [Mass/volume] in Serum or Plasma [2345-7] 01/02/2025 10:21 AM 162 mg/dL N Blood chemistry[[id number]] Glucose [Mass/volume] in Serum or Plasma [2345-7] 01/02/2025 05:30 PM 97 mg/dL N Blood chemistry[[id number]] Glucose [Mass/volume] in Serum or Plasma [2345-7] 01/02/2025 10:12 AM 96 mg/dL N Blood chemistry[[id number]] Glucose [Mass/volume] in Serum or Plasma [2345-7] 01/01/2025 04:50 PM 107 mg/dL N Blood chemistry[[id number]] Glucose [Mass/volume] in Serum or Plasma [2345-7] 01/01/2025 10:04 AM 119 mg/dL N Blood chemistry[[id number]] Glucose [Mass/volume] in Serum or Plasma [2345-7] 01/01/2025 09:51 AM 108 mg/dL N Blood chemistry[[id number]] Glucose [Mass/volume] in Serum or Plasma [2345-7] 12/31/2024 08:58 AM 78 mg/dL N Blood chemistry[[id number]] Glucose [Mass/volume] in Serum or Plasma [2345-7] 12/31/2024 08:53 AM 138 mg/dL N Blood chemistry[[id number]] Glucose [Mass/volume] in Serum or Plasma [2345-7] 12/31/2024 06:32 AM 127 mg/dL N Blood chemistry[[id number]] Glucose [Mass/volume] in Serum or Plasma [2345-7] 12/30/2024 04:01 PM 232 mg/dL N Blood chemistry[[id number]] Glucose [Mass/volume] in Serum or Plasma [2345-7] 12/30/2024 10:48 AM 125 mg/dL N Blood chemistry[[id number]] Glucose [Mass/volume] in Serum or Plasma [2345-7] 12/30/2024 10:09 AM 101 mg/dL N Blood chemistry[[id number]] Glucose [Mass/volume] in Serum or Plasma [2345-7] 12/29/2024 05:18 PM 132 mg/dL N Blood chemistry[[id number]] Glucose [Mass/volume] in Serum or Plasma [2345-7] 12/29/2024 10:07 AM 81 mg/dL N Blood chemistry[[id number]] Glucose [Mass/volume] in Serum or Plasma [2345-7] 12/29/2024 09:31 AM 131 mg/dL N Blood chemistry[[id number]] Glucose [Mass/volume] in Serum or Plasma [2345-7] 12/28/2024 04:40 PM 140 mg/dL N Blood chemistry[[id number]] Glucose [Mass/volume] in Serum or Plasma [2345-7] 12/28/2024 12:40 PM 102 mg/dL N Blood chemistry[[id number]] Glucose [Mass/volume] in Serum or Plasma [2345-7] 12/28/2024 10:10 AM 117 mg/dL N Blood chemistry[[id number]] Glucose [Mass/volume] in Serum or Plasma [2345-7] 12/27/2024 05:07 PM 161 mg/dL N Blood chemistry[[id number]] Glucose [Mass/volume] in Serum or Plasma [2345-7] 12/27/2024 10:26 AM 103 mg/dL N Blood chemistry[[id number]] Glucose [Mass/volume] in Serum or Plasma [2345-7] 12/27/2024 08:33 AM 173 mg/dL N Blood chemistry[[id number]] Glucose [Mass/volume] in Serum or Plasma [2345-7] 12/26/2024 05:17 PM 116 mg/dL N Blood chemistry[[id number]] Glucose [Mass/volume] in Serum or Plasma [2345-7] 12/26/2024 10:36 AM 223 mg/dL N Blood chemistry[[id number]] Glucose [Mass/volume] in Serum or Plasma [2345-7] 12/26/2024 10:04 AM 97 mg/dL N Blood chemistry[[id number]] Glucose [Mass/volume] in Serum or Plasma [2345-7] 12/25/2024 04:25 PM 156 mg/dL N Blood chemistry[[id number]] Glucose [Mass/volume] in Serum or Plasma [2345-7] 12/25/2024 10:16 AM 102 mg/dL N Blood chemistry[[id number]] Glucose [Mass/volume] in Serum or Plasma [2345-7] 12/25/2024 09:46 AM 128 mg/dL N Blood chemistry[[id number]] Glucose [Mass/volume] in Serum or Plasma [2345-7] 12/24/2024 05:19 PM 122 mg/dL N Blood chemistry[[id number]] Glucose [Mass/volume] in Serum or Plasma [2345-7] 12/24/2024 10:07 AM 102 mg/dL N Blood chemistry[[id number]] Glucose [Mass/volume] in Serum or Plasma [2345-7] 12/24/2024 09:46 AM 171 mg/dL N Blood chemistry[[id number]] Glucose [Mass/volume] in Serum or Plasma [2345-7] 12/23/2024 05:28 PM 91 mg/dL N Blood chemistry[[id number]] Glucose [Mass/volume] in Serum or Plasma [2345-7] 12/23/2024 01:06 PM 89 mg/dL N Blood chemistry[[id number]] Glucose [Mass/volume] in Serum or Plasma [2345-7] 12/23/2024 10:33 AM 99 mg/dL N Blood chemistry[[id number]] Glucose [Mass/volume] in Serum or Plasma [2345-7] 12/22/2024 10:37 AM 124 mg/dL N Blood chemistry[[id number]] Glucose [Mass/volume] in Serum or Plasma [2345-7] 12/22/2024 09:37 AM 150 mg/dL N Blood chemistry[[id number]] Glucose [Mass/volume] in Serum or Plasma [2345-7] 12/22/2024 06:56 AM 110 mg/dL N Blood chemistry[[id number]] Glucose [Mass/volume] in Serum or Plasma [2345-7] 12/21/2024 04:30 PM 161 mg/dL N Blood chemistry[[id number]] Glucose [Mass/volume] in Serum or Plasma [2345-7] 12/21/2024 12:00 PM 100 mg/dL N Blood chemistry[[id number]] Glucose [Mass/volume] in Serum or Plasma [2345-7] 12/21/2024 10:12 AM 132 mg/dL N Blood chemistry[[id number]] Glucose [Mass/volume] in Serum or Plasma [2345-7] 12/20/2024 05:03 PM 98 mg/dL N Blood chemistry[[id number]] Glucose [Mass/volume] in Serum or Plasma [2345-7] 12/20/2024 12:57 PM 241 mg/dL N Blood chemistry[[id number]] Glucose [Mass/volume] in Serum or Plasma [2345-7] 12/20/2024 10:00 AM 92 mg/dL N Blood chemistry[[id number]] Glucose [Mass/volume] in Serum or Plasma [2345-7] 12/19/2024 09:35 AM 120 mg/dL N Blood chemistry[[id number]] Glucose [Mass/volume] in Serum or Plasma [2345-7] 12/18/2024 04:46 PM 191 mg/dL N Blood chemistry[[id number]] Glucose [Mass/volume] in Serum or Plasma [2345-7] 12/18/2024 01:34 PM 130 mg/dL N Blood chemistry[[id number]] Glucose [Mass/volume] in Serum or Plasma [2345-7] 12/17/2024 05:01 PM 112 mg/dL N Blood chemistry[[id number]] Glucose [Mass/volume] in Serum or Plasma [2345-7] 12/17/2024 10:59 AM 159 mg/dL N Blood chemistry[[id number]] Glucose [Mass/volume] in Serum or Plasma [2345-7] 12/17/2024 10:15 AM 117 mg/dL N Blood chemistry[[id number]] Glucose [Mass/volume] in Serum or Plasma [2345-7] 12/16/2024 12:47 PM 120 mg/dL N Blood chemistry[[id number]] Glucose [Mass/volume] in Serum or Plasma [2345-7] 12/16/2024 10:23 AM 140 mg/dL N Blood chemistry[[id number]] Glucose [Mass/volume] in Serum or Plasma [2345-7] 12/16/2024 06:43 AM 136 mg/dL N Blood chemistry[[id number]] Glucose [Mass/volume] in Serum or Plasma [2345-7] 12/15/2024 05:34 PM 131 mg/dL N Blood chemistry[[id number]] Glucose [Mass/volume] in Serum or Plasma [2345-7] 12/15/2024 10:12 AM 115 mg/dL N Blood chemistry[[id number]] Glucose [Mass/volume] in Serum or Plasma [2345-7] 12/15/2024 09:47 AM 114 mg/dL N Blood chemistry[[id number]] Glucose [Mass/volume] in Serum or Plasma [2345-7] 12/14/2024 04:16 PM 143 mg/dL N Blood chemistry[[id number]] Glucose [Mass/volume] in Serum or Plasma [2345-7] 12/14/2024 10:12 AM 104 mg/dL N Blood chemistry[[id number]] Glucose [Mass/volume] in Serum or Plasma [2345-7] 12/14/2024 09:02 AM 150 mg/dL N Blood chemistry[[id number]] Glucose [Mass/volume] in Serum or Plasma [2345-7] 12/13/2024 10:29 AM 211 mg/dL N Blood chemistry[[id number]] Glucose [Mass/volume] in Serum or Plasma [2345-7] 12/13/2024 10:15 AM 107 mg/dL N Blood chemistry[[id number]] Glucose [Mass/volume] in Serum or Plasma [2345-7] 12/13/2024 06:51 AM 121 mg/dL N Blood chemistry[[id number]] Glucose [Mass/volume] in Serum or Plasma [2345-7] 12/12/2024 05:54 PM 101 mg/dL N Blood chemistry[[id number]] Glucose [Mass/volume] in Serum or Plasma [2345-7] 12/12/2024 10:16 AM 161 mg/dL N Blood chemistry[[id number]] Glucose [Mass/volume] in Serum or Plasma [2345-7] 12/12/2024 10:08 AM 117 mg/dL N Blood chemistry[[id number]] Glucose [Mass/volume] in Serum or Plasma [2345-7] 12/11/2024 04:36 PM 155 mg/dL N Blood chemistry[[id number]] Glucose [Mass/volume] in Serum or Plasma [2345-7] 12/11/2024 10:06 AM 101 mg/dL N Blood chemistry[[id number]] Glucose [Mass/volume] in Serum or Plasma [2345-7] 12/11/2024 09:35 AM 116 mg/dL N Blood chemistry[[id number]] Glucose [Mass/volume] in Serum or Plasma [2345-7] 12/10/2024 10:36 AM 112 mg/dL N Blood chemistry[[id number]] Glucose [Mass/volume] in Serum or Plasma [2345-7] 12/10/2024 09:55 AM 328 mg/dL N Blood chemistry[[id number]] Glucose [Mass/volume] in Serum or Plasma [2345-7] 12/10/2024 06:26 AM 149 mg/dL N Blood chemistry[[id number]] Glucose [Mass/volume] in Serum or Plasma [2345-7] 12/09/2024 10:26 AM 130 mg/dL N Blood chemistry[[id number]] Glucose [Mass/volume] in Serum or Plasma [2345-7] 12/09/2024 10:05 AM 85 mg/dL N Blood chemistry[[id number]] Glucose [Mass/volume] in Serum or Plasma [2345-7] 12/09/2024 06:50 AM 122 mg/dL N Blood chemistry[[id number]] Glucose [Mass/volume] in Serum or Plasma [2345-7] 12/08/2024 05:03 PM 71 mg/dL N Blood chemistry[[id number]] Glucose [Mass/volume] in Serum or Plasma [2345-7] 12/08/2024 10:26 AM 145 mg/dL N Blood chemistry[[id number]] Glucose [Mass/volume] in Serum or Plasma [2345-7] 12/08/2024 10:15 AM 119 mg/dL N Blood chemistry[[id number]] Glucose [Mass/volume] in Serum or Plasma [2345-7] 12/07/2024 05:00 PM 169 mg/dL N Blood chemistry[[id number]] Glucose [Mass/volume] in Serum or Plasma [2345-7] 12/07/2024 10:36 AM 101 mg/dL N Blood chemistry[[id number]] Glucose [Mass/volume] in Serum or Plasma [2345-7] 12/07/2024 09:26 AM 156 mg/dL N Blood chemistry[[id number]] Glucose [Mass/volume] in Serum or Plasma [2345-7] 12/06/2024 10:17 AM 87 mg/dL N Blood chemistry[[id number]] Glucose [Mass/volume] in Serum or Plasma [2345-7] 12/06/2024 09:05 AM 137 mg/dL N Blood chemistry[[id number]] Glucose [Mass/volume] in Serum or Plasma [2345-7] 12/06/2024 06:12 AM 159 mg/dL N Blood chemistry[[id number]] Glucose [Mass/volume] in Serum or Plasma [2345-7] 12/05/2024 05:46 PM 99 mg/dL N Blood chemistry[[id number]] Glucose [Mass/volume] in Serum or Plasma [2345-7] 12/05/2024 10:12 AM 120 mg/dL N Blood chemistry[[id number]] Glucose [Mass/volume] in Serum or Plasma [2345-7] 12/05/2024 09:25 AM 141 mg/dL N Blood chemistry[[id number]] Glucose [Mass/volume] in Serum or Plasma [2345-7] 12/04/2024 04:02 PM 134 mg/dL N Blood chemistry[[id number]] Glucose [Mass/volume] in Serum or Plasma [2345-7] 12/04/2024 10:53 AM 122 mg/dL N Blood chemistry[[id number]] Glucose [Mass/volume] in Serum or Plasma [2345-7] 12/04/2024 10:17 AM 103 mg/dL N Blood chemistry[[id number]] Glucose [Mass/volume] in Serum or Plasma [2345-7] 12/03/2024 05:21 PM 134 mg/dL N Blood chemistry[[id number]] Glucose [Mass/volume] in Serum or Plasma [2345-7] 12/03/2024 10:00 AM 93 mg/dL N Blood chemistry[[id number]] Glucose [Mass/volume] in Serum or Plasma [2345-7] 12/03/2024 08:29 AM 187 mg/dL N Blood chemistry[[id number]] Glucose [Mass/volume] in Serum or Plasma [2345-7] 12/02/2024 05:23 PM 124 mg/dL N Blood chemistry[[id number]] Glucose [Mass/volume] in Serum or Plasma [2345-7] 12/02/2024 10:12 AM 96 mg/dL N Blood chemistry[[id number]] Glucose [Mass/volume] in Serum or Plasma [2345-7] 12/02/2024 09:51 AM 95 mg/dL N Blood chemistry[[id number]] Glucose [Mass/volume] in Serum or Plasma [2345-7] 12/01/2024 09:34 AM 224 mg/dL N Glucose [Mass/volume] in Serum or Plasma [2345-7] 12/01/2024 09:34 AM 81 mg/dL N Blood chemistry[[id number]] Glucose [Mass/volume] in Serum or Plasma [2345-7] 11/30/2024 03:40 PM 183 mg/dL N Blood chemistry[[id number]] Glucose [Mass/volume] in Serum or Plasma [2345-7] 11/30/2024 01:19 PM 125 mg/dL N Blood chemistry[[id number]] Glucose [Mass/volume] in Serum or Plasma [2345-7] 11/30/2024 10:34 AM 133 mg/dL N Blood chemistry[[id number]] Glucose [Mass/volume] in Serum or Plasma [2345-7] 11/29/2024 10:01 AM 89 mg/dL N Blood chemistry[[id number]] Glucose [Mass/volume] in Serum or Plasma [2345-7] 11/29/2024 08:42 AM 195 mg/dL N Blood chemistry[[id number]] Glucose [Mass/volume] in Serum or Plasma [2345-7] 11/29/2024 06:23 AM 125 mg/dL N Blood chemistry[[id number]] Glucose [Mass/volume] in Serum or Plasma [2345-7] 11/28/2024 05:01 PM 88 mg/dL N Blood chemistry[[id number]] Glucose [Mass/volume] in Serum or Plasma [2345-7] 11/28/2024 10:25 AM 142 mg/dL N Blood chemistry[[id number]] Glucose [Mass/volume] in Serum or Plasma [2345-7] 11/28/2024 10:04 AM 107 mg/dL N Blood chemistry[[id number]] Glucose [Mass/volume] in Serum or Plasma [2345-7] 11/27/2024 05:01 PM 131 mg/dL N Blood chemistry[[id number]] Glucose [Mass/volume] in Serum or Plasma [2345-7] 11/27/2024 10:00 AM 106 mg/dL N Blood chemistry[[id number]] Glucose [Mass/volume] in Serum or Plasma [2345-7] 11/27/2024 09:07 AM 125 mg/dL N Blood chemistry[[id number]] Glucose [Mass/volume] in Serum or Plasma [2345-7] 11/26/2024 10:10 AM 120 mg/dL N Blood chemistry[[id number]] Glucose [Mass/volume] in Serum or Plasma [2345-7] 11/26/2024 09:55 AM 125 mg/dL N Blood chemistry[[id number]] Glucose [Mass/volume] in Serum or Plasma [2345-7] 11/25/2024 10:16 AM 85 mg/dL N Blood chemistry[[id number]] Glucose [Mass/volume] in Serum or Plasma [2345-7] 11/25/2024 09:51 AM 165 mg/dL N Blood chemistry[[id number]] Glucose [Mass/volume] in Serum or Plasma [2345-7] 11/25/2024 07:25 AM 103 mg/dL N Blood chemistry[[id number]] Glucose [Mass/volume] in Serum or Plasma [2345-7] 11/24/2024 05:47 PM 101 mg/dL N Blood chemistry[[id number]] Glucose [Mass/volume] in Serum or Plasma [2345-7] 11/24/2024 11:34 AM 188 mg/dL N Blood chemistry[[id number]] Glucose [Mass/volume] in Serum or Plasma [2345-7] 11/24/2024 11:33 AM 157 mg/dL N Blood chemistry[[id number]] Glucose [Mass/volume] in Serum or Plasma [2345-7] 11/24/2024 09:40 AM 53 mg/dL N Blood chemistry[[id number]] Glucose [Mass/volume] in Serum or Plasma [2345-7] 11/24/2024 09:17 AM 94 mg/dL N Blood chemistry[[id number]] Glucose [Mass/volume] in Serum or Plasma [2345-7] 11/23/2024 03:27 PM 232 mg/dL N Blood chemistry[[id number]] Glucose [Mass/volume] in Serum or Plasma [2345-7] 11/23/2024 10:07 AM 105 mg/dL N Blood chemistry[[id number]] Glucose [Mass/volume] in Serum or Plasma [2345-7] 11/23/2024 10:05 AM 91 mg/dL N Blood chemistry[[id number]] Glucose [Mass/volume] in Serum or Plasma [2345-7] 11/22/2024 03:27 PM 316 mg/dL N Blood chemistry[[id number]] Glucose [Mass/volume] in Serum or Plasma [2345-7] 11/22/2024 10:03 AM 113 mg/dL N Blood chemistry[[id number]] Glucose [Mass/volume] in Serum or Plasma [2345-7] 11/22/2024 08:50 AM 118 mg/dL N Blood chemistry[[id number]] Glucose [Mass/volume] in Serum or Plasma [2345-7] 11/21/2024 05:32 PM 85 mg/dL N Blood chemistry[[id number]] Glucose [Mass/volume] in Serum or Plasma [2345-7] 11/21/2024 10:09 AM 83 mg/dL N Blood chemistry[[id number]] Glucose [Mass/volume] in Serum or Plasma [2345-7] 11/21/2024 09:44 AM 193 mg/dL N Blood chemistry[[id number]] Glucose [Mass/volume] in Serum or Plasma [2345-7] 11/20/2024 05:28 PM 148 mg/dL N Blood chemistry[[id number]] Glucose [Mass/volume] in Serum or Plasma [2345-7] 11/20/2024 10:13 AM 109 mg/dL N Blood chemistry[[id number]] Glucose [Mass/volume] in Serum or Plasma [2345-7] 11/20/2024 08:51 AM 130 mg/dL N Blood chemistry[[id number]] Glucose [Mass/volume] in Serum or Plasma [2345-7] 11/19/2024 10:16 AM 109 mg/dL N Blood chemistry[[id number]] Glucose [Mass/volume] in Serum or Plasma [2345-7] 11/19/2024 07:39 AM 121 mg/dL N Blood chemistry[[id number]] Glucose [Mass/volume] in Serum or Plasma [2345-7] 11/18/2024 05:09 PM 99 mg/dL N Blood chemistry[[id number]] Glucose [Mass/volume] in Serum or Plasma [2345-7] 11/18/2024 01:15 PM 89 mg/dL N Blood chemistry[[id number]] Glucose [Mass/volume] in Serum or Plasma [2345-7] 11/18/2024 10:29 AM 167 mg/dL N Blood chemistry[[id number]] Glucose [Mass/volume] in Serum or Plasma [2345-7] 11/17/2024 05:26 PM 93 mg/dL N Blood chemistry[[id number]] Glucose [Mass/volume] in Serum or Plasma [2345-7] 11/17/2024 10:00 AM 88 mg/dL N Blood chemistry[[id number]] Glucose [Mass/volume] in Serum or Plasma [2345-7] 11/17/2024 09:56 AM 266 mg/dL N Blood chemistry[[id number]] Glucose [Mass/volume] in Serum or Plasma [2345-7] 11/16/2024 05:45 PM 105 mg/dL N Blood chemistry[[id number]] Glucose [Mass/volume] in Serum or Plasma [2345-7] 11/16/2024 10:02 AM 82 mg/dL N Blood chemistry[[id number]] Glucose [Mass/volume] in Serum or Plasma [2345-7] 11/16/2024 08:44 AM 118 mg/dL N Blood chemistry[[id number]] Glucose [Mass/volume] in Serum or Plasma [2345-7] 11/15/2024 05:12 PM 121 mg/dL N Blood chemistry[[id number]] Glucose [Mass/volume] in Serum or Plasma [2345-7] 11/15/2024 10:18 AM 87 mg/dL N Blood chemistry[[id number]] Glucose [Mass/volume] in Serum or Plasma [2345-7] 11/15/2024 08:19 AM 123 mg/dL N Blood chemistry[[id number]] Glucose [Mass/volume] in Serum or Plasma [2345-7] 11/14/2024 05:21 PM 98 mg/dL N Blood chemistry[[id number]] Glucose [Mass/volume] in Serum or Plasma [2345-7] 11/14/2024 10:33 AM 138 mg/dL N Blood chemistry[[id number]] Glucose [Mass/volume] in Serum or Plasma [2345-7] 11/14/2024 10:00 AM 77 mg/dL N Blood chemistry[[id number]] Glucose [Mass/volume] in Serum or Plasma [2345-7] 11/13/2024 03:59 PM 189 mg/dL N Blood chemistry[[id number]] Glucose [Mass/volume] in Serum or Plasma [2345-7] 11/13/2024 12:16 PM 99 mg/dL N Blood chemistry[[id number]] Glucose [Mass/volume] in Serum or Plasma [2345-7] 11/13/2024 09:28 AM 123 mg/dL N Blood chemistry[[id number]] Glucose [Mass/volume] in Serum or Plasma [2345-7] 11/12/2024 05:02 PM 73 mg/dL N Blood chemistry[[id number]] Glucose [Mass/volume] in Serum or Plasma [2345-7] 11/12/2024 09:52 AM 153 mg/dL N Blood chemistry[[id number]] Glucose [Mass/volume] in Serum or Plasma [2345-7] 11/11/2024 04:51 PM 102 mg/dL N Blood chemistry[[id number]] Glucose [Mass/volume] in Serum or Plasma [2345-7] 11/11/2024 10:03 AM 89 mg/dL N Blood chemistry[[id number]] Glucose [Mass/volume] in Serum or Plasma [2345-7] 11/11/2024 09:27 AM 131 mg/dL N Blood chemistry[[id number]] Glucose [Mass/volume] in Serum or Plasma [2345-7] 11/10/2024 04:52 PM 99 mg/dL N Blood chemistry[[id number]] Glucose [Mass/volume] in Serum or Plasma [2345-7] 11/10/2024 11:07 AM 119 mg/dL N Blood chemistry[[id number]] Glucose [Mass/volume] in Serum or Plasma [2345-7] 11/09/2024 05:16 PM 171 mg/dL N Blood chemistry[[id number]] Glucose [Mass/volume] in Serum or Plasma [2345-7] 11/09/2024 10:06 AM 91 mg/dL N Blood chemistry[[id number]] Glucose [Mass/volume] in Serum or Plasma [2345-7] 11/09/2024 09:06 AM 161 mg/dL N Blood chemistry[[id number]] Glucose [Mass/volume] in Serum or Plasma [2345-7] 11/08/2024 05:17 PM 160 mg/dL N Blood chemistry[[id number]] Glucose [Mass/volume] in Serum or Plasma [2345-7] 11/08/2024 12:56 PM 137 mg/dL N Blood chemistry[[id number]] Glucose [Mass/volume] in Serum or Plasma [2345-7] 11/08/2024 11:08 AM 161 mg/dL N Blood chemistry[[id number]] Glucose [Mass/volume] in Serum or Plasma [2345-7] 11/07/2024 04:48 PM 92 mg/dL N Blood chemistry[[id number]] Glucose [Mass/volume] in Serum or Plasma [2345-7] 11/07/2024 10:00 AM 143 mg/dL N Blood chemistry[[id number]] Glucose [Mass/volume] in Serum or Plasma [2345-7] 11/07/2024 09:15 AM 237 mg/dL N Blood chemistry[[id number]] Glucose [Mass/volume] in Serum or Plasma [2345-7] 11/06/2024 04:41 PM 103 mg/dL N Blood chemistry[[id number]] Glucose [Mass/volume] in Serum or Plasma [2345-7] 11/06/2024 10:44 AM 103 mg/dL N Blood chemistry[[id number]] Glucose [Mass/volume] in Serum or Plasma [2345-7] 11/06/2024 10:05 AM 106 mg/dL N Blood chemistry[[id number]] Glucose [Mass/volume] in Serum or Plasma [2345-7] 11/05/2024 09:59 AM 94 mg/dL N Blood chemistry[[id number]] Glucose [Mass/volume] in Serum or Plasma [2345-7] 11/05/2024 09:25 AM 196 mg/dL N Blood chemistry[[id number]] Glucose [Mass/volume] in Serum or Plasma [2345-7] 11/04/2024 05:16 PM 98 mg/dL N Blood chemistry[[id number]] Glucose [Mass/volume] in Serum or Plasma [2345-7] 11/04/2024 10:02 AM 83 mg/dL N Blood chemistry[[id number]] Glucose [Mass/volume] in Serum or Plasma [2345-7] 11/04/2024 08:24 AM 195 mg/dL N Blood chemistry[[id number]] Glucose [Mass/volume] in Serum or Plasma [2345-7] 11/03/2024 05:13 PM 87 mg/dL N Blood chemistry[[id number]] Glucose [Mass/volume] in Serum or Plasma [2345-7] 11/03/2024 10:08 AM 112 mg/dL N Blood chemistry[[id number]] Glucose [Mass/volume] in Serum or Plasma [2345-7] 11/03/2024 09:46 AM 152 mg/dL N Blood chemistry[[id number]] Glucose [Mass/volume] in Serum or Plasma [2345-7] 11/02/2024 05:37 PM 104 mg/dL N Blood chemistry[[id number]] Glucose [Mass/volume] in Serum or Plasma [2345-7] 11/02/2024 12:47 PM 91 mg/dL N Blood chemistry[[id number]] Glucose [Mass/volume] in Serum or Plasma [2345-7] 11/02/2024 10:55 AM 111 mg/dL N Blood chemistry[[id number]] Glucose [Mass/volume] in Serum or Plasma [2345-7] 11/01/2024 05:49 PM 145 mg/dL N Blood chemistry[[id number]] Glucose [Mass/volume] in Serum or Plasma [2345-7] 11/01/2024 12:03 PM 102 mg/dL N Blood chemistry[[id number]] Glucose [Mass/volume] in Serum or Plasma [2345-7] 10/31/2024 05:43 PM 102 mg/dL N Blood chemistry[[id number]] Glucose [Mass/volume] in Serum or Plasma [2345-7] 10/31/2024 10:31 AM 133 mg/dL N Blood chemistry[[id number]] Glucose [Mass/volume] in Serum or Plasma [2345-7] 10/31/2024 10:12 AM 103 mg/dL N Blood chemistry[[id number]] Glucose [Mass/volume] in Serum or Plasma [2345-7] 10/30/2024 04:31 PM 83 mg/dL N Blood chemistry[[id number]] Glucose [Mass/volume] in Serum or Plasma [2345-7] 10/30/2024 10:19 AM 120 mg/dL N Blood chemistry[[id number]] Glucose [Mass/volume] in Serum or Plasma [2345-7] 10/30/2024 10:08 AM 77 mg/dL N Blood chemistry[[id number]] Glucose [Mass/volume] in Serum or Plasma [2345-7] 10/29/2024 05:32 PM 110 mg/dL N Blood chemistry[[id number]] Glucose [Mass/volume] in Serum or Plasma [2345-7] 10/29/2024 10:20 AM 100 mg/dL N Blood chemistry[[id number]] Glucose [Mass/volume] in Serum or Plasma [2345-7] 10/29/2024 09:11 AM 135 mg/dL N Blood chemistry[[id number]] Glucose [Mass/volume] in Serum or Plasma [2345-7] 10/28/2024 04:30 PM 199 mg/dL N Blood chemistry[[id number]] Glucose [Mass/volume] in Serum or Plasma [2345-7] 10/28/2024 10:14 AM 104 mg/dL N Blood chemistry[[id number]] Glucose [Mass/volume] in Serum or Plasma [2345-7] 10/28/2024 09:23 AM 133 mg/dL N Blood chemistry[[id number]] Glucose [Mass/volume] in Serum or Plasma [2345-7] 10/27/2024 05:01 PM 103 mg/dL N Blood chemistry[[id number]] Glucose [Mass/volume] in Serum or Plasma [2345-7] 10/27/2024 10:06 AM 97 mg/dL N Blood chemistry[[id number]] Glucose [Mass/volume] in Serum or Plasma [2345-7] 10/27/2024 09:40 AM 123 mg/dL N Blood chemistry[[id number]] Glucose [Mass/volume] in Serum or Plasma [2345-7] 10/26/2024 05:08 PM 151 mg/dL N Blood chemistry[[id number]] Glucose [Mass/volume] in Serum or Plasma [2345-7] 10/26/2024 10:01 AM 81 mg/dL N Blood chemistry[[id number]] Glucose [Mass/volume] in Serum or Plasma [2345-7] 10/26/2024 09:54 AM 146 mg/dL N Blood chemistry[[id number]] Glucose [Mass/volume] in Serum or Plasma [2345-7] 10/25/2024 10:56 AM 131 mg/dL N Blood chemistry[[id number]] Glucose [Mass/volume] in Serum or Plasma [2345-7] 10/25/2024 10:20 AM 98 mg/dL N Blood chemistry[[id number]] Glucose [Mass/volume] in Serum or Plasma [2345-7] 10/25/2024 06:32 AM 114 mg/dL N Blood chemistry[[id number]] Glucose [Mass/volume] in Serum or Plasma [2345-7] 10/24/2024 05:13 PM 109 mg/dL N Blood chemistry[[id number]] Glucose [Mass/volume] in Serum or Plasma [2345-7] 10/24/2024 10:38 AM 157 mg/dL N Blood chemistry[[id number]] Glucose [Mass/volume] in Serum or Plasma [2345-7] 10/24/2024 09:55 AM 92 mg/dL N Blood chemistry[[id number]] Glucose [Mass/volume] in Serum or Plasma [2345-7] 10/23/2024 10:13 AM 119 mg/dL N Blood chemistry[[id number]] Glucose [Mass/volume] in Serum or Plasma [2345-7] 10/23/2024 08:56 AM 95 mg/dL N Blood chemistry[[id number]] Glucose [Mass/volume] in Serum or Plasma [2345-7] 10/22/2024 05:40 PM 89 mg/dL N Blood chemistry[[id number]] Glucose [Mass/volume] in Serum or Plasma [2345-7] 10/22/2024 10:41 AM 134 mg/dL N Blood chemistry[[id number]] Glucose [Mass/volume] in Serum or Plasma [2345-7] 10/22/2024 10:16 AM 100 mg/dL N Blood chemistry[[id number]] Glucose [Mass/volume] in Serum or Plasma [2345-7] 10/21/2024 04:20 PM 181 mg/dL N Blood chemistry[[id number]] Glucose [Mass/volume] in Serum or Plasma [2345-7] 10/21/2024 12:23 PM 88 mg/dL N Blood chemistry[[id number]] Glucose [Mass/volume] in Serum or Plasma [2345-7] 10/21/2024 10:35 AM 145 mg/dL N Blood chemistry[[id number]] Glucose [Mass/volume] in Serum or Plasma [2345-7] 10/20/2024 04:22 PM 97 mg/dL N Blood chemistry[[id number]] Glucose [Mass/volume] in Serum or Plasma [2345-7] 10/20/2024 10:00 AM 134 mg/dL N Blood chemistry[[id number]] Glucose [Mass/volume] in Serum or Plasma [2345-7] 10/20/2024 09:07 AM 155 mg/dL N Blood chemistry[[id number]] Glucose [Mass/volume] in Serum or Plasma [2345-7] 10/19/2024 04:59 PM 131 mg/dL N Blood chemistry[[id number]] Glucose [Mass/volume] in Serum or Plasma [2345-7] 10/19/2024 10:02 AM 80 mg/dL N Blood chemistry[[id number]] Glucose [Mass/volume] in Serum or Plasma [2345-7] 10/19/2024 09:42 AM 99 mg/dL N Blood chemistry[[id number]] Glucose [Mass/volume] in Serum or Plasma [2345-7] 10/18/2024 05:33 PM 172 mg/dL N Blood chemistry[[id number]] Glucose [Mass/volume] in Serum or Plasma [2345-7] 10/18/2024 10:16 AM 87 mg/dL N Blood chemistry[[id number]] Glucose [Mass/volume] in Serum or Plasma [2345-7] 10/18/2024 10:04 AM 110 mg/dL N Blood chemistry[[id number]] Glucose [Mass/volume] in Serum or Plasma [2345-7] 10/17/2024 05:24 PM 78 mg/dL N Blood chemistry[[id number]] Glucose [Mass/volume] in Serum or Plasma [2345-7] 10/17/2024 10:15 AM 138 mg/dL N Blood chemistry[[id number]] Glucose [Mass/volume] in Serum or Plasma [2345-7] 10/17/2024 09:15 AM 89 mg/dL N Blood chemistry[[id number]] Glucose [Mass/volume] in Serum or Plasma [2345-7] 10/16/2024 05:13 PM 145 mg/dL N Blood chemistry[[id number]] Glucose [Mass/volume] in Serum or Plasma [2345-7] 10/16/2024 10:22 AM 78 mg/dL N Blood chemistry[[id number]] Glucose [Mass/volume] in Serum or Plasma [2345-7] 10/16/2024 09:55 AM 132 mg/dL N Blood chemistry[[id number]] Glucose [Mass/volume] in Serum or Plasma [2345-7] 10/15/2024 10:07 AM 83 mg/dL N Blood chemistry[[id number]] Glucose [Mass/volume] in Serum or Plasma [2345-7] 10/15/2024 09:22 AM 140 mg/dL N Blood chemistry[[id number]] Glucose [Mass/volume] in Serum or Plasma [2345-7] 10/15/2024 06:04 AM 123 mg/dL N Blood chemistry[[id number]] Glucose [Mass/volume] in Serum or Plasma [2345-7] 10/14/2024 04:48 PM 148 mg/dL N Blood chemistry[[id number]] Glucose [Mass/volume] in Serum or Plasma [2345-7] 10/14/2024 12:28 PM 86 mg/dL N Blood chemistry[[id number]] Glucose [Mass/volume] in Serum or Plasma [2345-7] 10/14/2024 09:48 AM 105 mg/dL N Blood chemistry[[id number]] Glucose [Mass/volume] in Serum or Plasma [2345-7] 10/13/2024 10:07 AM 170 mg/dL N Blood chemistry[[id number]] Glucose [Mass/volume] in Serum or Plasma [2345-7] 10/13/2024 09:59 AM 123 mg/dL N Blood chemistry[[id number]] Glucose [Mass/volume] in Serum or Plasma [2345-7] 10/12/2024 04:07 PM 118 mg/dL N Blood chemistry[[id number]] Glucose [Mass/volume] in Serum or Plasma [2345-7] 10/12/2024 10:09 AM 148 mg/dL N Blood chemistry[[id number]] Glucose [Mass/volume] in Serum or Plasma [2345-7] 10/12/2024 10:01 AM 82 mg/dL N Blood chemistry[[id number]] Glucose [Mass/volume] in Serum or Plasma [2345-7] 10/11/2024 05:04 PM 109 mg/dL N Blood chemistry[[id number]] Glucose [Mass/volume] in Serum or Plasma [2345-7] 10/11/2024 10:08 AM 88 mg/dL N Blood chemistry[[id number]] Glucose [Mass/volume] in Serum or Plasma [2345-7] 10/11/2024 09:15 AM 117 mg/dL N Blood chemistry[[id number]] Glucose [Mass/volume] in Serum or Plasma [2345-7] 10/10/2024 05:50 PM 127 mg/dL N Blood chemistry[[id number]] Glucose [Mass/volume] in Serum or Plasma [2345-7] 10/10/2024 11:51 AM 110 mg/dL N Blood chemistry[[id number]] Glucose [Mass/volume] in Serum or Plasma [2345-7] 10/10/2024 10:14 AM 119 mg/dL N Blood chemistry[[id number]] Glucose [Mass/volume] in Serum or Plasma [2345-7] 10/09/2024 04:30 PM 158 mg/dL N Blood chemistry[[id number]] Glucose [Mass/volume] in Serum or Plasma [2345-7] 10/09/2024 12:10 PM 81 mg/dL N Blood chemistry[[id number]] Glucose [Mass/volume] in Serum or Plasma [2345-7] 10/09/2024 09:17 AM 90 mg/dL N Blood chemistry[[id number]] Glucose [Mass/volume] in Serum or Plasma [2345-7] 10/08/2024 05:55 PM 126 mg/dL N Blood chemistry[[id number]] Glucose [Mass/volume] in Serum or Plasma [2345-7] 10/08/2024 09:17 AM 212 mg/dL N Blood chemistry[[id number]] Glucose [Mass/volume] in Serum or Plasma [2345-7] 10/07/2024 04:52 PM 123 mg/dL N Blood chemistry[[id number]] Glucose [Mass/volume] in Serum or Plasma [2345-7] 10/07/2024 12:16 PM 112 mg/dL N Blood chemistry[[id number]] Glucose [Mass/volume] in Serum or Plasma [2345-7] 10/07/2024 10:03 AM 110 mg/dL N Blood chemistry[[id number]] Glucose [Mass/volume] in Serum or Plasma [2345-7] 09/01/2024 05:11 PM 110 mg/dL N Blood chemistry[[id number]] Glucose [Mass/volume] in Serum or Plasma [2345-7] 09/01/2024 09:32 AM 233 mg/dL N Blood chemistry[[id number]] Glucose [Mass/volume] in Serum or Plasma [2345-7] 09/01/2024 09:14 AM 121 mg/dL N Blood chemistry[[id number]] Glucose [Mass/volume] in Serum or Plasma [2345-7] 08/31/2024 11:48 AM 221 mg/dL N Blood chemistry[[id number]] Glucose [Mass/volume] in Serum or Plasma [2345-7] 08/31/2024 04:18 PM 125 mg/dL N Blood chemistry[[id number]] Glucose [Mass/volume] in Serum or Plasma [2345-7] 08/31/2024 09:26 AM 173 mg/dL N Blood chemistry[[id number]] Glucose [Mass/volume] in Serum or Plasma [2345-7] 08/31/2024 09:37 AM 90 mg/dL N Blood chemistry[[id number]] Glucose [Mass/volume] in Serum or Plasma [2345-7] 08/30/2024 12:20 PM 152 mg/dL N Blood chemistry[[id number]] Glucose [Mass/volume] in Serum or Plasma [2345-7] 08/30/2024 04:37 PM 136 mg/dL N Blood chemistry[[id number]] Glucose [Mass/volume] in Serum or Plasma [2345-7] 08/30/2024 10:28 AM 102 mg/dL N Blood chemistry[[id number]] Glucose [Mass/volume] in Serum or Plasma [2345-7] 08/30/2024 10:01 AM 100 mg/dL N Blood chemistry[[id number]] Glucose [Mass/volume] in Serum or Plasma [2345-7] 08/29/2024 12:59 PM 170 mg/dL N Blood chemistry[[id number]] Glucose [Mass/volume] in Serum or Plasma [2345-7] 08/29/2024 05:48 PM 126 mg/dL N Blood chemistry[[id number]] Glucose [Mass/volume] in Serum or Plasma [2345-7] 08/29/2024 10:17 AM 142 mg/dL N Blood chemistry[[id number]] Glucose [Mass/volume] in Serum or Plasma [2345-7] 08/29/2024 10:26 AM 122 mg/dL N Blood chemistry[[id number]] Glucose [Mass/volume] in Serum or Plasma [2345-7] 08/28/2024 01:34 PM 185 mg/dL N Blood chemistry[[id number]] Glucose [Mass/volume] in Serum or Plasma [2345-7] 08/28/2024 05:33 PM 104 mg/dL N Blood chemistry[[id number]] Glucose [Mass/volume] in Serum or Plasma [2345-7] 08/28/2024 10:20 AM 138 mg/dL N Blood chemistry[[id number]] Glucose [Mass/volume] in Serum or Plasma [2345-7] 08/28/2024 09:29 AM 198 mg/dL N Blood chemistry[[id number]] Glucose [Mass/volume] in Serum or Plasma [2345-7] 08/27/2024 11:52 AM 171 mg/dL N Blood chemistry[[id number]] Glucose [Mass/volume] in Serum or Plasma [2345-7] 08/27/2024 05:09 PM 85 mg/dL N Blood chemistry[[id number]] Glucose [Mass/volume] in Serum or Plasma [2345-7] 08/27/2024 09:05 AM 127 mg/dL N Blood chemistry[[id number]] Glucose [Mass/volume] in Serum or Plasma [2345-7] 08/27/2024 09:00 AM 107 mg/dL N Blood chemistry[[id number]] Glucose [Mass/volume] in Serum or Plasma [2345-7] 08/26/2024 11:12 AM 162 mg/dL N Blood chemistry[] Glucose [Mass/volume] in Serum or Plasma [2345-7] 08/26/2024 09:57 AM 118 mg/dL N Blood chemistry[[id number]] Glucose [Mass/volume] in Serum or Plasma [2345-7] 08/26/2024 06:14 AM 144 mg/dL N Blood chemistry[[id number]] Glucose [Mass/volume] in Serum or Plasma [2345-7] 08/26/2024 09:14 AM 94 mg/dL N Blood chemistry[[id number]] Glucose [Mass/volume] in Serum or Plasma [2345-7] 08/25/2024 01:12 PM 118 mg/dL N Blood chemistry[[id number]] Glucose [Mass/volume] in Serum or Plasma [2345-7] 08/25/2024 05:16 PM 80 mg/dL N Blood chemistry[[id number]] Glucose [Mass/volume] in Serum or Plasma [2345-7] 08/25/2024 10:09 AM 181 mg/dL N Blood chemistry[[id number]] Glucose [Mass/volume] in Serum or Plasma [2345-7] 08/25/2024 09:40 AM 108 mg/dL N Blood chemistry[[id number]] Glucose [Mass/volume] in Serum or Plasma [2345-7] 08/24/2024 11:48 AM 229 mg/dL N Blood chemistry[[id number]] Glucose [Mass/volume] in Serum or Plasma [2345-7] 08/24/2024 04:06 PM 167 mg/dL N Blood chemistry[[id number]] Glucose [Mass/volume] in Serum or Plasma [2345-7] 08/24/2024 09:37 AM 109 mg/dL N Blood chemistry[[id number]] Glucose [Mass/volume] in Serum or Plasma [2345-7] 08/24/2024 09:20 AM 100 mg/dL N Blood chemistry[[id number]] Glucose [Mass/volume] in Serum or Plasma [2345-7] 08/23/2024 11:56 AM 196 mg/dL N Blood chemistry[[id number]] Glucose [Mass/volume] in Serum or Plasma [2345-7] 08/23/2024 04:24 PM 119 mg/dL N Blood chemistry[[id number]] Glucose [Mass/volume] in Serum or Plasma [2345-7] 08/23/2024 08:55 AM 150 mg/dL N Blood chemistry[[id number]] Glucose [Mass/volume] in Serum or Plasma [2345-7] 08/22/2024 11:14 AM 161 mg/dL N Blood chemistry[[id number]] Glucose [Mass/volume] in Serum or Plasma [2345-7] 08/22/2024 09:46 AM 121 mg/dL N Blood chemistry[[id number]] Glucose [Mass/volume] in Serum or Plasma [2345-7] 08/22/2024 06:03 AM 103 mg/dL N Blood chemistry[[id number]] Glucose [Mass/volume] in Serum or Plasma [2345-7] 08/22/2024 09:25 AM 86 mg/dL N Blood chemistry[[id number]] Glucose [Mass/volume] in Serum or Plasma [2345-7] 08/21/2024 11:11 AM 215 mg/dL N Blood chemistry[[id number]] Glucose [Mass/volume] in Serum or Plasma [2345-7] 08/21/2024 05:34 PM 96 mg/dL N Blood chemistry[[id number]] Glucose [Mass/volume] in Serum or Plasma [2345-7] 08/21/2024 10:13 AM 131 mg/dL N Blood chemistry[[id number]] Glucose [Mass/volume] in Serum or Plasma [2345-7] 08/21/2024 09:15 AM 127 mg/dL N Blood chemistry[[id number]] Glucose [Mass/volume] in Serum or Plasma [2345-7] 08/20/2024 11:00 AM 190 mg/dL N Blood chemistry[[id number]] Glucose [Mass/volume] in Serum or Plasma [2345-7] 08/20/2024 05:40 PM 89 mg/dL N Blood chemistry[[id number]] Glucose [Mass/volume] in Serum or Plasma [2345-7] 08/20/2024 09:18 AM 185 mg/dL N Blood chemistry[[id number]] Glucose [Mass/volume] in Serum or Plasma [2345-7] 08/20/2024 09:00 AM 120 mg/dL N Blood chemistry[[id number]] Glucose [Mass/volume] in Serum or Plasma [2345-7] 08/19/2024 11:05 AM 229 mg/dL N Blood chemistry[[id number]] Glucose [Mass/volume] in Serum or Plasma [2345-7] 08/19/2024 05:17 PM 104 mg/dL N Blood chemistry[[id number]] Glucose [Mass/volume] in Serum or Plasma [2345-7] 08/19/2024 09:43 AM 200 mg/dL N Blood chemistry[[id number]] Glucose [Mass/volume] in Serum or Plasma [2345-7] 08/19/2024 09:51 AM 101 mg/dL N Blood chemistry[[id number]] Glucose [Mass/volume] in Serum or Plasma [2345-7] 08/18/2024 12:23 PM 150 mg/dL N Blood chemistry[[id number]] Glucose [Mass/volume] in Serum or Plasma [2345-7] 08/18/2024 05:41 PM 154 mg/dL N Blood chemistry[[id number]] Glucose [Mass/volume] in Serum or Plasma [2345-7] 08/18/2024 09:57 AM 153 mg/dL N Blood chemistry[[id number]] Glucose [Mass/volume] in Serum or Plasma [2345-7] 08/18/2024 10:09 AM 124 mg/dL N Blood chemistry[[id number]] Glucose [Mass/volume] in Serum or Plasma [2345-7] 08/17/2024 01:31 PM 174 mg/dL N Blood chemistry[[id number]] Glucose [Mass/volume] in Serum or Plasma [2345-7] 08/17/2024 10:38 AM 128 mg/dL N Blood chemistry[[id number]] Glucose [Mass/volume] in Serum or Plasma [2345-7] 08/17/2024 04:14 PM 188 mg/dL N Blood chemistry[[id number]] Glucose [Mass/volume] in Serum or Plasma [2345-7] 08/17/2024 09:53 AM 116 mg/dL N Blood chemistry[[id number]] Glucose [Mass/volume] in Serum or Plasma [2345-7] 08/16/2024 01:01 PM 167 mg/dL N Blood chemistry[[id number]] Glucose [Mass/volume] in Serum or Plasma [2345-7] 08/16/2024 04:40 PM 114 mg/dL N Blood chemistry[[id number]] Glucose [Mass/volume] in Serum or Plasma [2345-7] 08/16/2024 09:26 AM 114 mg/dL N Blood chemistry[[id number]] Glucose [Mass/volume] in Serum or Plasma [2345-7] 08/15/2024 05:38 PM 109 mg/dL N Blood chemistry[[id number]] Glucose [Mass/volume] in Serum or Plasma [2345-7] 08/15/2024 09:13 AM 95 mg/dL N Blood chemistry[[id number]] Glucose [Mass/volume] in Serum or Plasma [2345-7] 08/14/2024 11:02 AM 145 mg/dL N Blood chemistry[[id number]] Glucose [Mass/volume] in Serum or Plasma [2345-7] 08/14/2024 10:43 AM 140 mg/dL N Blood chemistry[[id number]] Glucose [Mass/volume] in Serum or Plasma [2345-7] 08/14/2024 07:47 AM 109 mg/dL N Blood chemistry[[id number]] Glucose [Mass/volume] in Serum or Plasma [2345-7] 08/14/2024 10:09 AM 141 mg/dL N Blood chemistry[[id number]] Glucose [Mass/volume] in Serum or Plasma [2345-7] 08/13/2024 04:10 PM 156 mg/dL N Blood chemistry[[id number]] Glucose [Mass/volume] in Serum or Plasma [2345-7] 08/13/2024 11:04 AM 96 mg/dL N Blood chemistry[[id number]] Glucose [Mass/volume] in Serum or Plasma [2345-7] 08/13/2024 09:02 AM 149 mg/dL N Blood chemistry[[id number]] Glucose [Mass/volume] in Serum or Plasma [2345-7] 08/13/2024 09:07 AM 101 mg/dL N Blood chemistry[[id number]] Glucose [Mass/volume] in Serum or Plasma [2345-7] 08/12/2024 11:11 AM 150 mg/dL N Blood chemistry[[id number]] Glucose [Mass/volume] in Serum or Plasma [2345-7] 08/12/2024 05:24 PM 137 mg/dL N Blood chemistry[[id number]] Glucose [Mass/volume] in Serum or Plasma [2345-7] 08/12/2024 10:42 AM 117 mg/dL N Blood chemistry[[id number]] Glucose [Mass/volume] in Serum or Plasma [2345-7] 08/12/2024 09:58 AM 83 mg/dL N Blood chemistry[[id number]] Glucose [Mass/volume] in Serum or Plasma [2345-7] 08/11/2024 12:41 PM 173 mg/dL N Blood chemistry[[id number]] Glucose [Mass/volume] in Serum or Plasma [2345-7] 08/11/2024 05:27 PM 94 mg/dL N Blood chemistry[[id number]] Glucose [Mass/volume] in Serum or Plasma [2345-7] 08/11/2024 09:22 AM 151 mg/dL N Blood chemistry[[id number]] Glucose [Mass/volume] in Serum or Plasma [2345-7] 08/11/2024 09:34 AM 131 mg/dL N Blood chemistry[[id number]] Glucose [Mass/volume] in Serum or Plasma [2345-7] 08/10/2024 03:23 PM 145 mg/dL N Blood chemistry[[id number]] Glucose [Mass/volume] in Serum or Plasma [2345-7] 08/10/2024 05:11 PM 148 mg/dL N Blood chemistry[[id number]] Glucose [Mass/volume] in Serum or Plasma [2345-7] 08/10/2024 10:03 AM 109 mg/dL N Blood chemistry[[id number]] Glucose [Mass/volume] in Serum or Plasma [2345-7] 08/10/2024 10:00 AM 141 mg/dL N Blood chemistry[[id number]] Glucose [Mass/volume] in Serum or Plasma [2345-7] 08/09/2024 03:16 PM 184 mg/dL N Blood chemistry[[id number]] Glucose [Mass/volume] in Serum or Plasma [2345-7] 08/09/2024 04:08 PM 164 mg/dL N Blood chemistry[[id number]] Glucose [Mass/volume] in Serum or Plasma [2345-7] 08/09/2024 09:01 AM 97 mg/dL N Blood chemistry[[id number]] Glucose [Mass/volume] in Serum or Plasma [2345-7] 08/09/2024 10:14 AM 111 mg/dL N Blood chemistry[[id number]] Glucose [Mass/volume] in Serum or Plasma [2345-7] 08/08/2024 04:45 PM 136 mg/dL N Blood chemistry[[id number]] Glucose [Mass/volume] in Serum or Plasma [2345-7] 08/08/2024 09:53 AM 132 mg/dL N Blood chemistry[[id number]] Glucose [Mass/volume] in Serum or Plasma [2345-7] 08/08/2024 07:38 AM 143 mg/dL N Blood chemistry[[id number]] Glucose [Mass/volume] in Serum or Plasma [2345-7] 08/08/2024 09:10 AM 105 mg/dL N Blood chemistry[[id number]] Glucose [Mass/volume] in Serum or Plasma [2345-7] 08/07/2024 11:03 AM 177 mg/dL N Blood chemistry[[id number]] Glucose [Mass/volume] in Serum or Plasma [2345-7] 08/07/2024 05:13 PM 126 mg/dL N Blood chemistry[[id number]] Glucose [Mass/volume] in Serum or Plasma [2345-7] 08/07/2024 09:44 AM 122 mg/dL N Blood chemistry[[id number]] Glucose [Mass/volume] in Serum or Plasma [2345-7] 08/07/2024 09:20 AM 91 mg/dL N Blood chemistry[[id number]] Glucose [Mass/volume] in Serum or Plasma [2345-7] 08/06/2024 11:35 AM 199 mg/dL N Blood chemistry[[id number]] Glucose [Mass/volume] in Serum or Plasma [2345-7] 08/06/2024 09:52 AM 167 mg/dL N Blood chemistry[[id number]] Glucose [Mass/volume] in Serum or Plasma [2345-7] 08/06/2024 09:13 AM 97 mg/dL N Blood chemistry[[id number]] Glucose [Mass/volume] in Serum or Plasma [2345-7] 08/05/2024 05:15 PM 122 mg/dL N Blood chemistry[[id number]] Glucose [Mass/volume] in Serum or Plasma [2345-7] 08/05/2024 11:08 AM 181 mg/dL N Blood chemistry[[id number]] Glucose [Mass/volume] in Serum or Plasma [2345-7] 08/05/2024 09:28 AM 149 mg/dL N Blood chemistry[[id number]] Glucose [Mass/volume] in Serum or Plasma [2345-7] 08/05/2024 10:20 AM 99 mg/dL N Blood chemistry[[id number]] Glucose [Mass/volume] in Serum or Plasma [2345-7] 08/04/2024 01:31 PM 162 mg/dL N Blood chemistry[[id number]] Glucose [Mass/volume] in Serum or Plasma [2345-7] 08/04/2024 05:30 PM 122 mg/dL N Blood chemistry[[id number]] Glucose [Mass/volume] in Serum or Plasma [2345-7] 08/04/2024 09:17 AM 155 mg/dL N Blood chemistry[[id number]] Glucose [Mass/volume] in Serum or Plasma [2345-7] 08/04/2024 10:21 AM 141 mg/dL N Blood chemistry[[id number]] Glucose [Mass/volume] in Serum or Plasma [2345-7] 08/03/2024 12:38 PM 142 mg/dL N Blood chemistry[[id number]] Glucose [Mass/volume] in Serum or Plasma [2345-7] 08/03/2024 04:31 PM 138 mg/dL N Blood chemistry[[id number]] Glucose [Mass/volume] in Serum or Plasma [2345-7] 08/03/2024 10:06 AM 128 mg/dL N Blood chemistry[[id number]] Glucose [Mass/volume] in Serum or Plasma [2345-7] 08/03/2024 11:18 AM 121 mg/dL N Blood chemistry[[id number]] Glucose [Mass/volume] in Serum or Plasma [2345-7] 08/02/2024 04:31 PM 155 mg/dL N Blood chemistry[[id number]] Glucose [Mass/volume] in Serum or Plasma [2345-7] 08/02/2024 04:58 PM 163 mg/dL N Blood chemistry[[id number]] Glucose [Mass/volume] in Serum or Plasma [2345-7] 08/02/2024 09:41 AM 144 mg/dL N Blood chemistry[[id number]] Glucose [Mass/volume] in Serum or Plasma [2345-7] 08/02/2024 10:00 AM 130 mg/dL N Blood chemistry[[id number]] Glucose [Mass/volume] in Serum or Plasma [2345-7] 08/01/2024 12:24 PM 178 mg/dL N Blood chemistry[[id number]] Glucose [Mass/volume] in Serum or Plasma [2345-7] 08/01/2024 05:08 PM 118 mg/dL N Blood chemistry[[id number]] Glucose [Mass/volume] in Serum or Plasma [2345-7] 08/01/2024 10:17 AM 157 mg/dL N Blood chemistry[[id number]] Glucose [Mass/volume] in Serum or Plasma [2345-7] 08/01/2024 09:11 AM 112 mg/dL N Blood chemistry[[id number]] Glucose [Mass/volume] in Serum or Plasma [2345-7] 07/31/2024 05:14 PM 127 mg/dL N Blood chemistry[[id number]] Glucose [Mass/volume] in Serum or Plasma [2345-7] 07/31/2024 11:07 AM 142 mg/dL N Blood chemistry[[id number]] Glucose [Mass/volume] in Serum or Plasma [2345-7] 07/31/2024 10:27 AM 164 mg/dL N Blood chemistry[[id number]] Glucose [Mass/volume] in Serum or Plasma [2345-7] 07/31/2024 09:12 AM 133 mg/dL N Blood chemistry[[id number]] Glucose [Mass/volume] in Serum or Plasma [2345-7] 07/30/2024 11:21 AM 157 mg/dL N Glucose [Mass/volume] in Serum or Plasma [2345-7] 07/30/2024 11:21 AM 150 mg/dL N Blood chemistry[[id number]] Glucose [Mass/volume] in Serum or Plasma [2345-7] 07/30/2024 05:54 PM 184 mg/dL N Blood chemistry[[id number]] Glucose [Mass/volume] in Serum or Plasma [2345-7] 07/30/2024 09:16 AM 134 mg/dL N Blood chemistry[[id number]] Glucose [Mass/volume] in Serum or Plasma [2345-7] 07/29/2024 11:49 AM 133 mg/dL N Blood chemistry[[id number]] Glucose [Mass/volume] in Serum or Plasma [2345-7] 07/29/2024 04:05 PM 123 mg/dL N Blood chemistry[[id number]] Glucose [Mass/volume] in Serum or Plasma [2345-7] 07/29/2024 10:06 AM 162 mg/dL N Blood chemistry[[id number]] Glucose [Mass/volume] in Serum or Plasma [2345-7] 07/29/2024 10:18 AM 117 mg/dL N Blood chemistry[[id number]] Glucose [Mass/volume] in Serum or Plasma [2345-7] 07/28/2024 01:11 PM 158 mg/dL N Blood chemistry[[id number]] Glucose [Mass/volume] in Serum or Plasma [2345-7] 07/28/2024 09:56 AM 150 mg/dL N Blood chemistry[[id number]] Glucose [Mass/volume] in Serum or Plasma [2345-7] 07/28/2024 06:53 AM 111 mg/dL N Blood chemistry[[id number]] Glucose [Mass/volume] in Serum or Plasma [2345-7] 07/28/2024 09:50 AM 108 mg/dL N Blood chemistry[[id number]] Glucose [Mass/volume] in Serum or Plasma [2345-7] 07/27/2024 12:34 PM 162 mg/dL N Blood chemistry[[id number]] Glucose [Mass/volume] in Serum or Plasma [2345-7] 07/27/2024 04:38 PM 148 mg/dL N Blood chemistry[[id number]] Glucose [Mass/volume] in Serum or Plasma [2345-7] 07/27/2024 09:46 AM 129 mg/dL N Blood chemistry[[id number]] Glucose [Mass/volume] in Serum or Plasma [2345-7] 07/27/2024 10:12 AM 136 mg/dL N Blood chemistry[[id number]] Glucose [Mass/volume] in Serum or Plasma [2345-7] 07/26/2024 01:47 PM 155 mg/dL N Blood chemistry[[id number]] Glucose [Mass/volume] in Serum or Plasma [2345-7] 07/26/2024 04:08 PM 189 mg/dL N Blood chemistry[[id number]] Glucose [Mass/volume] in Serum or Plasma [2345-7] 07/26/2024 09:31 AM 114 mg/dL N Blood chemistry[[id number]] Glucose [Mass/volume] in Serum or Plasma [2345-7] 07/26/2024 10:26 AM 86 mg/dL N Blood chemistry[[id number]] Glucose [Mass/volume] in Serum or Plasma [2345-7] 07/25/2024 12:32 PM 218 mg/dL N Blood chemistry[[id number]] Glucose [Mass/volume] in Serum or Plasma [2345-7] 07/25/2024 05:13 PM 112 mg/dL N Blood chemistry[[id number]] Glucose [Mass/volume] in Serum or Plasma [2345-7] 07/25/2024 10:28 AM 127 mg/dL N Blood chemistry[[id number]] Glucose [Mass/volume] in Serum or Plasma [2345-7] 07/25/2024 10:32 AM 123 mg/dL N Blood chemistry[[id number]] Glucose [Mass/volume] in Serum or Plasma [2345-7] 07/24/2024 03:49 PM 141 mg/dL N Blood chemistry[[id number]] Glucose [Mass/volume] in Serum or Plasma [2345-7] 07/24/2024 04:12 PM 161 mg/dL N Blood chemistry[[id number]] Glucose [Mass/volume] in Serum or Plasma [2345-7] 07/24/2024 10:14 AM 112 mg/dL N Blood chemistry[[id number]] Glucose [Mass/volume] in Serum or Plasma [2345-7] 07/24/2024 09:18 AM 140 mg/dL N Blood chemistry[[id number]] Glucose [Mass/volume] in Serum or Plasma [2345-7] 07/23/2024 11:53 AM 203 mg/dL N Blood chemistry[[id number]] Glucose [Mass/volume] in Serum or Plasma [2345-7] 07/23/2024 05:45 PM 139 mg/dL N Blood chemistry[[id number]] Glucose [Mass/volume] in Serum or Plasma [2345-7] 07/23/2024 09:48 AM 164 mg/dL N Blood chemistry[[id number]] Glucose [Mass/volume] in Serum or Plasma [2345-7] 07/23/2024 09:02 AM 145 mg/dL N Blood chemistry[[id number]] Glucose [Mass/volume] in Serum or Plasma [2345-7] 07/22/2024 12:04 PM 184 mg/dL N Blood chemistry[[id number]] Glucose [Mass/volume] in Serum or Plasma [2345-7] 07/22/2024 03:51 PM 213 mg/dL N Blood chemistry[[id number]] Glucose [Mass/volume] in Serum or Plasma [2345-7] 07/22/2024 09:37 AM 177 mg/dL N Blood chemistry[[id number]] Glucose [Mass/volume] in Serum or Plasma [2345-7] 07/22/2024 10:06 AM 126 mg/dL N Blood chemistry[[id number]] Glucose [Mass/volume] in Serum or Plasma [2345-7] 07/21/2024 12:40 PM 235 mg/dL N Blood chemistry[[id number]] Glucose [Mass/volume] in Serum or Plasma [2345-7] 07/21/2024 05:00 PM 140 mg/dL N Blood chemistry[[id number]] Glucose [Mass/volume] in Serum or Plasma [2345-7] 07/21/2024 09:34 AM 169 mg/dL N Blood chemistry[[id number]] Glucose [Mass/volume] in Serum or Plasma [2345-7] 07/21/2024 09:46 AM 109 mg/dL N Blood chemistry[[id number]] Glucose [Mass/volume] in Serum or Plasma [2345-7] 07/20/2024 01:15 PM 180 mg/dL N Blood chemistry[[id number]] Glucose [Mass/volume] in Serum or Plasma [2345-7] 07/20/2024 04:19 PM 185 mg/dL N Blood chemistry[[id number]] Glucose [Mass/volume] in Serum or Plasma [2345-7] 07/20/2024 09:32 AM 126 mg/dL N Blood chemistry[[id number]] Glucose [Mass/volume] in Serum or Plasma [2345-7] 07/20/2024 10:15 AM 114 mg/dL N Blood chemistry[[id number]] Glucose [Mass/volume] in Serum or Plasma [2345-7] 07/19/2024 11:36 AM 144 mg/dL N Blood chemistry[[id number]] Glucose [Mass/volume] in Serum or Plasma [2345-7] 07/19/2024 04:21 PM 175 mg/dL N Blood chemistry[[id number]] Glucose [Mass/volume] in Serum or Plasma [2345-7] 07/19/2024 08:49 AM 140 mg/dL N Blood chemistry[[id number]] Glucose [Mass/volume] in Serum or Plasma [2345-7] 07/19/2024 10:16 AM 104 mg/dL N Blood chemistry[[id number]] Glucose [Mass/volume] in Serum or Plasma [2345-7] 07/18/2024 12:25 PM 132 mg/dL N Blood chemistry[[id number]] Glucose [Mass/volume] in Serum or Plasma [2345-7] 07/18/2024 05:10 PM 101 mg/dL N Blood chemistry[[id number]] Glucose [Mass/volume] in Serum or Plasma [2345-7] 07/18/2024 09:29 AM 160 mg/dL N COVID-19 Test Viral Antigen null flavor [null] 07/18/2024 07:58 AM See note IND COVID-19 Test Viral Antigen Blood chemistry[[id number]] Glucose [Mass/volume] in Serum or Plasma [2345-7] 07/18/2024 09:01 AM 141 mg/dL N Blood chemistry[[id number]] Glucose [Mass/volume] in Serum or Plasma [2345-7] 07/17/2024 11:52 AM 171 mg/dL N Blood chemistry[[id number]] Glucose [Mass/volume] in Serum or Plasma [2345-7] 07/17/2024 03:49 PM 175 mg/dL N Blood chemistry[[id number]] Glucose [Mass/volume] in Serum or Plasma [2345-7] 07/17/2024 08:45 AM 166 mg/dL N Blood chemistry[[id number]] Glucose [Mass/volume] in Serum or Plasma [2345-7] 07/17/2024 09:00 AM 122 mg/dL N Blood chemistry[[id number]] Glucose [Mass/volume] in Serum or Plasma [2345-7] 07/16/2024 11:43 AM 156 mg/dL N Blood chemistry[[id number]] Glucose [Mass/volume] in Serum or Plasma [2345-7] 07/16/2024 04:40 PM 105 mg/dL N Blood chemistry[[id number]] Glucose [Mass/volume] in Serum or Plasma [2345-7] 07/16/2024 08:19 AM 182 mg/dL N Blood chemistry[[id number]] Glucose [Mass/volume] in Serum or Plasma [2345-7] 07/16/2024 09:03 AM 103 mg/dL N Blood chemistry[[id number]] Glucose [Mass/volume] in Serum or Plasma [2345-7] 07/15/2024 11:57 AM 227 mg/dL N Blood chemistry[[id number]] Glucose [Mass/volume] in Serum or Plasma [2345-7] 07/15/2024 05:07 PM 204 mg/dL N Blood chemistry[[id number]] Glucose [Mass/volume] in Serum or Plasma [2345-7] 07/15/2024 10:42 AM 141 mg/dL N Blood chemistry[[id number]] Glucose [Mass/volume] in Serum or Plasma [2345-7] 07/15/2024 10:47 AM 123 mg/dL N Blood chemistry[[id number]] Glucose [Mass/volume] in Serum or Plasma [2345-7] 07/14/2024 11:52 AM 201 mg/dL N Blood chemistry[[id number]] Glucose [Mass/volume] in Serum or Plasma [2345-7] 07/14/2024 09:20 AM 260 mg/dL N Blood chemistry[[id number]] Glucose [Mass/volume] in Serum or Plasma [2345-7] 07/14/2024 07:29 AM 106 mg/dL N Blood chemistry[[id number]] Glucose [Mass/volume] in Serum or Plasma [2345-7] 07/14/2024 10:19 AM 102 mg/dL N Blood chemistry[[id number]] Glucose [Mass/volume] in Serum or Plasma [2345-7] 07/13/2024 11:58 AM 207 mg/dL N Blood chemistry[[id number]] Glucose [Mass/volume] in Serum or Plasma [2345-7] 07/13/2024 04:55 PM 172 mg/dL N Blood chemistry[[id number]] Glucose [Mass/volume] in Serum or Plasma [2345-7] 07/13/2024 10:16 AM 150 mg/dL N Blood chemistry[[id number]] Glucose [Mass/volume] in Serum or Plasma [2345-7] 07/13/2024 10:34 AM 154 mg/dL N Blood chemistry[[id number]] Glucose [Mass/volume] in Serum or Plasma [2345-7] 07/12/2024 12:29 PM 242 mg/dL N Blood chemistry[[id number]] Glucose [Mass/volume] in Serum or Plasma [2345-7] 07/12/2024 03:43 PM 169 mg/dL N Blood chemistry[[id number]] Glucose [Mass/volume] in Serum or Plasma [2345-7] 07/12/2024 08:50 AM 136 mg/dL N Blood chemistry[[id number]] Glucose [Mass/volume] in Serum or Plasma [2345-7] 07/12/2024 10:21 AM 248 mg/dL N Blood chemistry[[id number]] Glucose [Mass/volume] in Serum or Plasma [2345-7] 07/11/2024 01:23 PM 197 mg/dL N Blood chemistry[[id number]] Glucose [Mass/volume] in Serum or Plasma [2345-7] 07/11/2024 05:48 PM 124 mg/dL N Blood chemistry[[id number]] Glucose [Mass/volume] in Serum or Plasma [2345-7] 07/11/2024 10:09 AM 154 mg/dL N Blood chemistry[[id number]] Glucose [Mass/volume] in Serum or Plasma [2345-7] 07/11/2024 09:00 AM 151 mg/dL N Blood chemistry[[id number]] Glucose [Mass/volume] in Serum or Plasma [2345-7] 07/10/2024 01:09 PM 151 mg/dL N Blood chemistry[[id number]] Glucose [Mass/volume] in Serum or Plasma [2345-7] 07/10/2024 04:21 PM 176 mg/dL N Blood chemistry[[id number]] Glucose [Mass/volume] in Serum or Plasma [2345-7] 07/10/2024 09:00 AM 170 mg/dL N Blood chemistry[[id number]] Glucose [Mass/volume] in Serum or Plasma [2345-7] 07/10/2024 09:14 AM 113 mg/dL N Blood chemistry[[id number]] Glucose [Mass/volume] in Serum or Plasma [2345-7] 07/09/2024 11:44 AM 197 mg/dL N Blood chemistry[[id number]] Glucose [Mass/volume] in Serum or Plasma [2345-7] 07/09/2024 09:27 AM 199 mg/dL N Blood chemistry[[id number]] Glucose [Mass/volume] in Serum or Plasma [2345-7] 07/09/2024 09:06 AM 105 mg/dL N Blood chemistry[[id number]] Glucose [Mass/volume] in Serum or Plasma [2345-7] 07/08/2024 11:49 AM 187 mg/dL N Blood chemistry[[id number]] Glucose [Mass/volume] in Serum or Plasma [2345-7] 07/08/2024 09:38 AM 187 mg/dL N Blood chemistry[[id number]] Glucose [Mass/volume] in Serum or Plasma [2345-7] 07/08/2024 10:21 AM 109 mg/dL N Blood chemistry[[id number]] Glucose [Mass/volume] in Serum or Plasma [2345-7] 07/08/2024 06:35 AM 150 mg/dL N Blood chemistry[[id number]] Glucose [Mass/volume] in Serum or Plasma [2345-7] 07/07/2024 05:52 PM 114 mg/dL N Blood chemistry[[id number]] Glucose [Mass/volume] in Serum or Plasma [2345-7] 07/07/2024 03:04 PM 92 mg/dL N Blood chemistry[[id number]] Glucose [Mass/volume] in Serum or Plasma [2345-7] 07/07/2024 09:40 AM 165 mg/dL N Blood chemistry[[id number]] Glucose [Mass/volume] in Serum or Plasma [2345-7] 07/07/2024 10:25 AM 119 mg/dL N Blood chemistry[[id number]] Glucose [Mass/volume] in Serum or Plasma [2345-7] 07/06/2024 12:10 PM 250 mg/dL N Blood chemistry[[id number]] Glucose [Mass/volume] in Serum or Plasma [2345-7] 07/06/2024 09:18 AM 121 mg/dL N Blood chemistry[[id number]] Glucose [Mass/volume] in Serum or Plasma [2345-7] 07/06/2024 03:17 PM 217 mg/dL N Blood chemistry[[id number]] Glucose [Mass/volume] in Serum or Plasma [2345-7] 07/06/2024 09:58 AM 118 mg/dL N Blood chemistry[[id number]] Glucose [Mass/volume] in Serum or Plasma [2345-7] 07/05/2024 05:15 PM 129 mg/dL N Blood chemistry[[id number]] Glucose [Mass/volume] in Serum or Plasma [2345-7] 07/05/2024 01:28 PM 175 mg/dL N Blood chemistry[[id number]] Glucose [Mass/volume] in Serum or Plasma [2345-7] 07/05/2024 10:31 AM 128 mg/dL N Blood chemistry[[id number]] Glucose [Mass/volume] in Serum or Plasma [2345-7] 07/05/2024 10:54 AM 124 mg/dL N Blood chemistry[[id number]] Glucose [Mass/volume] in Serum or Plasma [2345-7] 07/04/2024 01:00 PM 183 mg/dL N Blood chemistry[[id number]] Glucose [Mass/volume] in Serum or Plasma [2345-7] 07/04/2024 05:54 PM 113 mg/dL N Blood chemistry[[id number]] Glucose [Mass/volume] in Serum or Plasma [2345-7] 07/04/2024 10:33 AM 121 mg/dL N Blood chemistry[[id number]] Glucose [Mass/volume] in Serum or Plasma [2345-7] 07/04/2024 09:15 AM 128 mg/dL N Blood chemistry[[id number]] Glucose [Mass/volume] in Serum or Plasma [2345-7] 07/03/2024 12:59 PM 167 mg/dL N Blood chemistry[[id number]] Glucose [Mass/volume] in Serum or Plasma [2345-7] 07/03/2024 11:19 AM 125 mg/dL N Blood chemistry[[id number]] Glucose [Mass/volume] in Serum or Plasma [2345-7] 07/03/2024 05:30 PM 136 mg/dL N Blood chemistry[[id number]] Glucose [Mass/volume] in Serum or Plasma [2345-7] 07/03/2024 10:35 AM 121 mg/dL N Blood chemistry[[id number]] Glucose [Mass/volume] in Serum or Plasma [2345-7] 07/02/2024 12:51 PM 170 mg/dL N Blood chemistry[[id number]] Glucose [Mass/volume] in Serum or Plasma [2345-7] 07/02/2024 10:05 AM 178 mg/dL N Blood chemistry[[id number]] Glucose [Mass/volume] in Serum or Plasma [2345-7] 07/02/2024 10:34 AM 113 mg/dL N Blood chemistry[[id number]] Glucose [Mass/volume] in Serum or Plasma [2345-7] 07/02/2024 07:18 AM 133 mg/dL N Blood chemistry[[id number]] Glucose [Mass/volume] in Serum or Plasma [2345-7] 07/01/2024 01:13 PM 190 mg/dL N Blood chemistry[[id number]] Glucose [Mass/volume] in Serum or Plasma [2345-7] 07/01/2024 11:25 AM 146 mg/dL N Blood chemistry[[id number]] Glucose [Mass/volume] in Serum or Plasma [2345-7] 07/01/2024 06:22 PM 120 mg/dL N Blood chemistry[[id number]] Glucose [Mass/volume] in Serum or Plasma [2345-7] 07/01/2024 09:40 AM 134 mg/dL N Blood chemistry[[id number]] Glucose [Mass/volume] in Serum or Plasma [2345-7] 06/30/2024 06:13 PM 144 mg/dL N Blood chemistry[[id number]] Glucose [Mass/volume] in Serum or Plasma [2345-7] 06/30/2024 01:28 PM 126 mg/dL N Blood chemistry[[id number]] Glucose [Mass/volume] in Serum or Plasma [2345-7] 06/30/2024 10:02 AM 168 mg/dL N Blood chemistry[[id number]] Glucose [Mass/volume] in Serum or Plasma [2345-7] 06/30/2024 10:25 AM 103 mg/dL N Blood chemistry[[id number]] Glucose [Mass/volume] in Serum or Plasma [2345-7] 06/29/2024 01:19 PM 207 mg/dL N Blood chemistry[[id number]] Glucose [Mass/volume] in Serum or Plasma [2345-7] 06/29/2024 10:50 AM 139 mg/dL N Blood chemistry[[id number]] Glucose [Mass/volume] in Serum or Plasma [2345-7] 06/29/2024 05:56 PM 190 mg/dL N Blood chemistry[[id number]] Glucose [Mass/volume] in Serum or Plasma [2345-7] 06/29/2024 11:12 AM 103 mg/dL N Blood chemistry[[id number]] Glucose [Mass/volume] in Serum or Plasma [2345-7] 06/28/2024 01:02 PM 184 mg/dL N Blood chemistry[[id number]] Glucose [Mass/volume] in Serum or Plasma [2345-7] 06/28/2024 10:18 AM 131 mg/dL N Blood chemistry[[id number]] Glucose [Mass/volume] in Serum or Plasma [2345-7] 06/28/2024 04:32 PM 199 mg/dL N Blood chemistry[[id number]] Glucose [Mass/volume] in Serum or Plasma [2345-7] 06/28/2024 11:39 AM 130 mg/dL N Blood chemistry[[id number]] Glucose [Mass/volume] in Serum or Plasma [2345-7] 06/27/2024 10:57 AM 177 mg/dL N Blood chemistry[[id number]] Glucose [Mass/volume] in Serum or Plasma [2345-7] 06/27/2024 07:32 AM 108 mg/dL N Blood chemistry[[id number]] Glucose [Mass/volume] in Serum or Plasma [2345-7] 06/27/2024 10:31 AM 144 mg/dL N Blood chemistry[[id number]] Glucose [Mass/volume] in Serum or Plasma [2345-7] 06/26/2024 11:27 AM 132 mg/dL N Blood chemistry[[id number]] Glucose [Mass/volume] in Serum or Plasma [2345-7] 06/26/2024 05:51 PM 233 mg/dL N Blood chemistry[[id number]] Glucose [Mass/volume] in Serum or Plasma [2345-7] 06/26/2024 10:20 AM 123 mg/dL N Blood chemistry[[id number]] Glucose [Mass/volume] in Serum or Plasma [2345-7] 06/25/2024 06:26 PM 151 mg/dL N Blood chemistry[[id number]] Glucose [Mass/volume] in Serum or Plasma [2345-7] 06/25/2024 10:59 AM 134 mg/dL N Blood chemistry[[id number]] Glucose [Mass/volume] in Serum or Plasma [2345-7] 06/25/2024 10:19 AM 157 mg/dL N Blood chemistry[[id number]] Glucose [Mass/volume] in Serum or Plasma [2345-7] 06/24/2024 11:39 AM 146 mg/dL N Blood chemistry[[id number]] Glucose [Mass/volume] in Serum or Plasma [2345-7] 06/24/2024 10:55 AM 157 mg/dL N Blood chemistry[[id number]] Glucose [Mass/volume] in Serum or Plasma [2345-7] 06/24/2024 07:02 AM 139 mg/dL N Blood chemistry[[id number]] Glucose [Mass/volume] in Serum or Plasma [2345-7] 06/23/2024 06:54 PM 149 mg/dL N Blood chemistry[[id number]] Glucose [Mass/volume] in Serum or Plasma [2345-7] 06/23/2024 10:23 AM 153 mg/dL N Blood chemistry[[id number]] Glucose [Mass/volume] in Serum or Plasma [2345-7] 06/23/2024 10:49 AM 133 mg/dL N Blood chemistry[[id number]] Glucose [Mass/volume] in Serum or Plasma [2345-7] 06/22/2024 10:53 AM 173 mg/dL N Blood chemistry[[id number]] Glucose [Mass/volume] in Serum or Plasma [2345-7] 06/22/2024 06:38 PM 160 mg/dL N Blood chemistry[[id number]] Glucose [Mass/volume] in Serum or Plasma [2345-7] 06/22/2024 11:02 AM 151 mg/dL N Blood chemistry[[id number]] Glucose [Mass/volume] in Serum or Plasma [2345-7] 06/21/2024 06:37 PM 147 mg/dL N Blood chemistry[[id number]] Glucose [Mass/volume] in Serum or Plasma [2345-7] 06/21/2024 11:54 AM 111 mg/dL N Blood chemistry[[id number]] Glucose [Mass/volume] in Serum or Plasma [2345-7] 06/21/2024 10:40 AM 126 mg/dL N Blood chemistry[[id number]] Glucose [Mass/volume] in Serum or Plasma [2345-7] 06/20/2024 11:27 AM 182 mg/dL N Blood chemistry[[id number]] Glucose [Mass/volume] in Serum or Plasma [2345-7] 06/20/2024 06:15 PM 116 mg/dL N Blood chemistry[[id number]] Glucose [Mass/volume] in Serum or Plasma [2345-7] 06/20/2024 12:03 PM 151 mg/dL N Blood chemistry[[id number]] Glucose [Mass/volume] in Serum or Plasma [2345-7] 06/19/2024 11:12 AM 156 mg/dL N Blood chemistry[[id number]] Glucose [Mass/volume] in Serum or Plasma [2345-7] 06/19/2024 05:53 PM 157 mg/dL N Blood chemistry[] Glucose [Mass/volume] in Serum or Plasma [2345-7] 06/19/2024 11:06 AM 99 mg/dL N Blood chemistry[[id number]] Glucose [Mass/volume] in Serum or Plasma [2345-7] 06/18/2024 11:51 AM 229 mg/dL N Blood chemistry[[id number]] Glucose [Mass/volume] in Serum or Plasma [2345-7] 06/18/2024 05:26 PM 176 mg/dL N Blood chemistry[] Glucose [Mass/volume] in Serum or Plasma [2345-7] 06/18/2024 11:34 AM 122 mg/dL N Blood chemistry[[id number]] Glucose [Mass/volume] in Serum or Plasma [2345-7] 06/17/2024 10:46 AM 211 mg/dL N Blood chemistry[[id number]] Glucose [Mass/volume] in Serum or Plasma [2345-7] 06/17/2024 09:34 AM 211 mg/dL N Blood chemistry[[id number]] Glucose [Mass/volume] in Serum or Plasma [2345-7] 06/17/2024 06:11 PM 199 mg/dL N Blood chemistry[[id number]] Glucose [Mass/volume] in Serum or Plasma [2345-7] 06/17/2024 11:00 AM 179 mg/dL N Blood chemistry[[id number]] Glucose [Mass/volume] in Serum or Plasma [2345-7] 06/16/2024 06:15 PM 137 mg/dL N Blood chemistry[[id number]] Glucose [Mass/volume] in Serum or Plasma [2345-7] 06/16/2024 10:23 AM 372 mg/dL N Blood chemistry[[id number]] Glucose [Mass/volume] in Serum or Plasma [2345-7] 06/16/2024 10:35 AM 117 mg/dL N Blood chemistry[[id number]] Glucose [Mass/volume] in Serum or Plasma [2345-7] 06/15/2024 11:35 AM 145 mg/dL N Blood chemistry[[id number]] Glucose [Mass/volume] in Serum or Plasma [2345-7] 06/15/2024 04:54 PM 286 mg/dL N Blood chemistry[[id number]] Glucose [Mass/volume] in Serum or Plasma [2345-7] 06/15/2024 11:01 AM 127 mg/dL N Blood chemistry[[id number]] Glucose [Mass/volume] in Serum or Plasma [2345-7] 06/14/2024 05:10 PM 153 mg/dL N Blood chemistry[[id number]] Glucose [Mass/volume] in Serum or Plasma [2345-7] 06/14/2024 11:42 AM 117 mg/dL N Blood chemistry[[id number]] Glucose [Mass/volume] in Serum or Plasma [2345-7] 06/14/2024 10:23 AM 139 mg/dL N Blood chemistry[[id number]] Glucose [Mass/volume] in Serum or Plasma [2345-7] 06/13/2024 11:00 AM 109 mg/dL N Blood chemistry[[id number]] Glucose [Mass/volume] in Serum or Plasma [2345-7] 06/13/2024 06:00 PM 172 mg/dL N Blood chemistry[[id number]] Glucose [Mass/volume] in Serum or Plasma [2345-7] 06/13/2024 10:41 AM 161 mg/dL N Blood chemistry[[id number]] Glucose [Mass/volume] in Serum or Plasma [2345-7] 06/12/2024 05:09 PM 167 mg/dL N Blood chemistry[[id number]] Glucose [Mass/volume] in Serum or Plasma [2345-7] 06/12/2024 11:28 AM 182 mg/dL N Blood chemistry[[id number]] Glucose [Mass/volume] in Serum or Plasma [2345-7] 06/12/2024 11:05 AM 143 mg/dL N Blood chemistry[[id number]] Glucose [Mass/volume] in Serum or Plasma [2345-7] 06/11/2024 06:07 PM 90 mg/dL N Blood chemistry[[id number]] Glucose [Mass/volume] in Serum or Plasma [2345-7] 06/11/2024 11:02 AM 115 mg/dL N Blood chemistry[[id number]] Glucose [Mass/volume] in Serum or Plasma [2345-7] 06/11/2024 10:45 AM 113 mg/dL N Blood chemistry[[id number]] Glucose [Mass/volume] in Serum or Plasma [2345-7] 06/10/2024 05:57 PM 180 mg/dL N Blood chemistry[[id number]] Glucose [Mass/volume] in Serum or Plasma [2345-7] 06/10/2024 10:52 AM 143 mg/dL N Blood chemistry[[id number]] Glucose [Mass/volume] in Serum or Plasma [2345-7] 06/10/2024 09:54 AM 111 mg/dL N Blood chemistry[[id number]] Glucose [Mass/volume] in Serum or Plasma [2345-7] 06/09/2024 06:09 PM 136 mg/dL N Blood chemistry[[id number]] Glucose [Mass/volume] in Serum or Plasma [2345-7] 06/09/2024 06:08 PM 222 mg/dL N Blood chemistry[[id number]] Glucose [Mass/volume] in Serum or Plasma [2345-7] 06/09/2024 10:38 AM 205 mg/dL N Blood chemistry[[id number]] Glucose [Mass/volume] in Serum or Plasma [2345-7] 06/08/2024 05:58 PM 179 mg/dL N Blood chemistry[[id number]] Glucose [Mass/volume] in Serum or Plasma [2345-7] 06/08/2024 10:56 AM 169 mg/dL N Blood chemistry[[id number]] Glucose [Mass/volume] in Serum or Plasma [2345-7] 06/08/2024 11:05 AM 191 mg/dL N Blood chemistry[[id number]] Glucose [Mass/volume] in Serum or Plasma [2345-7] 06/07/2024 12:15 PM 174 mg/dL N Blood chemistry[[id number]] Glucose [Mass/volume] in Serum or Plasma [2345-7] 06/07/2024 06:38 PM 140 mg/dL N Blood chemistry[[id number]] Glucose [Mass/volume] in Serum or Plasma [2345-7] 06/07/2024 10:45 AM 124 mg/dL N Blood chemistry[[id number]] Glucose [Mass/volume] in Serum or Plasma [2345-7] 06/06/2024 06:50 PM 110 mg/dL N Blood chemistry[[id number]] Glucose [Mass/volume] in Serum or Plasma [2345-7] 06/06/2024 10:02 AM 128 mg/dL N Blood chemistry[[id number]] Glucose [Mass/volume] in Serum or Plasma [2345-7] 06/06/2024 10:01 AM 121 mg/dL N Blood chemistry[[id number]] Glucose [Mass/volume] in Serum or Plasma [2345-7] 06/06/2024 09:56 AM 121 mg/dL N Blood chemistry[[id number]] Glucose [Mass/volume] in Serum or Plasma [2345-7] 06/05/2024 06:09 PM 141 mg/dL N Blood chemistry[[id number]] Glucose [Mass/volume] in Serum or Plasma [2345-7] 06/05/2024 11:17 AM 129 mg/dL N Blood chemistry[[id number]] Glucose [Mass/volume] in Serum or Plasma [2345-7] 06/05/2024 10:24 AM 92 mg/dL N Blood chemistry[[id number]] Glucose [Mass/volume] in Serum or Plasma [2345-7] 06/04/2024 06:40 PM 117 mg/dL N Blood chemistry[[id number]] Glucose [Mass/volume] in Serum or Plasma [2345-7] 06/04/2024 11:19 AM 169 mg/dL N Blood chemistry[[id number]] Glucose [Mass/volume] in Serum or Plasma [2345-7] 06/04/2024 10:00 AM 98 mg/dL N Blood chemistry[[id number]] Glucose [Mass/volume] in Serum or Plasma [2345-7] 06/03/2024 05:45 PM 131 mg/dL N Blood chemistry[[id number]] Glucose [Mass/volume] in Serum or Plasma [2345-7] 06/03/2024 10:36 AM 162 mg/dL N Blood chemistry[[id number]] Glucose [Mass/volume] in Serum or Plasma [2345-7] 06/03/2024 10:24 AM 114 mg/dL N Blood chemistry[[id number]] Glucose [Mass/volume] in Serum or Plasma [2345-7] 06/02/2024 06:44 PM 175 mg/dL N Blood chemistry[[id number]] Glucose [Mass/volume] in Serum or Plasma [2345-7] 06/02/2024 11:03 AM 174 mg/dL N Blood chemistry[[id number]] Glucose [Mass/volume] in Serum or Plasma [2345-7] 06/02/2024 11:02 AM 174 mg/dL N Blood chemistry[[id number]] Glucose [Mass/volume] in Serum or Plasma [2345-7] 06/02/2024 10:00 AM 101 mg/dL N Blood chemistry[[id number]] Glucose [Mass/volume] in Serum or Plasma [2345-7] 06/01/2024 11:15 AM 126 mg/dL N Blood chemistry[[id number]] Glucose [Mass/volume] in Serum or Plasma [2345-7] 06/01/2024 04:59 PM 165 mg/dL N Blood chemistry[[id number]] Glucose [Mass/volume] in Serum or Plasma [2345-7] 06/01/2024 11:07 AM 121 mg/dL N Blood chemistry[[id number]] Glucose [Mass/volume] in Serum or Plasma [2345-7] 05/31/2024 10:33 AM 192 mg/dL N Blood chemistry[[id number]] Glucose [Mass/volume] in Serum or Plasma [2345-7] 05/31/2024 06:20 PM 154 mg/dL N Blood chemistry[[id number]] Glucose [Mass/volume] in Serum or Plasma [2345-7] 05/31/2024 11:14 AM 151 mg/dL N Blood chemistry[[id number]] Glucose [Mass/volume] in Serum or Plasma [2345-7] 05/30/2024 12:31 PM 167 mg/dL N Blood chemistry[[id number]] Glucose [Mass/volume] in Serum or Plasma [2345-7] 05/30/2024 06:56 PM 135 mg/dL N Blood chemistry[[id number]] Glucose [Mass/volume] in Serum or Plasma [2345-7] 05/30/2024 11:23 AM 113 mg/dL N Blood chemistry[[id number]] Glucose [Mass/volume] in Serum or Plasma [2345-7] 05/29/2024 11:49 AM 117 mg/dL N Blood chemistry[[id number]] Glucose [Mass/volume] in Serum or Plasma [2345-7] 05/29/2024 10:58 AM 177 mg/dL N Blood chemistry[[id number]] Glucose [Mass/volume] in Serum or Plasma [5-7] 05/29/2024 10:57 AM 112 mg/dL N Blood chemistry[[id number]] Glucose [Mass/volume] in Serum or Plasma [2345-7] 05/28/2024 06:16 PM 134 mg/dL N Blood chemistry[[id number]] Glucose [Mass/volume] in Serum or Plasma [2345-7] 05/28/2024 10:51 AM 181 mg/dL N Blood chemistry[[id number]] Glucose [Mass/volume] in Serum or Plasma [2345-7] 05/28/2024 10:12 AM 111 mg/dL N Blood chemistry[[id number]] Glucose [Mass/volume] in Serum or Plasma [2345-7] 05/27/2024 06:28 PM 133 mg/dL N Blood chemistry[[id number]] Glucose [Mass/volume] in Serum or Plasma [2345-7] 05/27/2024 12:22 PM 113 mg/dL N Blood chemistry[[id number]] Glucose [Mass/volume] in Serum or Plasma [2345-7] 05/27/2024 10:59 AM 125 mg/dL N Blood chemistry[[id number]] Glucose [Mass/volume] in Serum or Plasma [2345-7] 05/26/2024 12:28 PM 151 mg/dL N Blood chemistry[[id number]] Glucose [Mass/volume] in Serum or Plasma [2345-7] 05/25/2024 05:33 PM 137 mg/dL N Blood chemistry[[id number]] Glucose [Mass/volume] in Serum or Plasma [2345-7] 05/25/2024 10:49 AM 130 mg/dL N Blood chemistry[[id number]] Glucose [Mass/volume] in Serum or Plasma [2345-7] 05/24/2024 10:37 AM 153 mg/dL N Blood chemistry[[id number]] Glucose [Mass/volume] in Serum or Plasma [2345-7] 05/24/2024 05:08 PM 146 mg/dL N Blood chemistry[[id number]] Glucose [Mass/volume] in Serum or Plasma [5-7] 05/23/2024 05:50 PM 177 mg/dL N Blood chemistry[[id number]] Glucose [Mass/volume] in Serum or Plasma [5-7] 05/23/2024 12:32 PM 164 mg/dL N Blood chemistry[[id number]] Glucose [Mass/volume] in Serum or Plasma [5-7] 05/23/2024 11:12 AM 164 mg/dL N Blood chemistry[[id number]] Glucose [Mass/volume] in Serum or Plasma [2345-7] 05/23/2024 10:28 AM 121 mg/dL N Blood chemistry[[id number]] Glucose [Mass/volume] in Serum or Plasma [5-7] 05/22/2024 05:41 PM 237 mg/dL N Blood chemistry[[id number]] Glucose [Mass/volume] in Serum or Plasma [2345-7] 05/22/2024 11:10 AM 130 mg/dL N Blood chemistry[[id number]] Glucose [Mass/volume] in Serum or Plasma [2345-7] 05/22/2024 10:52 AM 130 mg/dL N Blood chemistry[[id number]] Glucose [Mass/volume] in Serum or Plasma [2345-7] 05/22/2024 10:15 AM 90 mg/dL N Blood chemistry[[id number]] Glucose [Mass/volume] in Serum or Plasma [5-7] 05/21/2024 06:09 PM 159 mg/dL N Blood chemistry[[id number]] Glucose [Mass/volume] in Serum or Plasma [2345-7] 05/21/2024 10:08 AM 100 mg/dL N Blood chemistry[[id number]] Glucose [Mass/volume] in Serum or Plasma [2345-7] 05/21/2024 09:43 AM 191 mg/dL N Blood chemistry[[id number]] Glucose [Mass/volume] in Serum or Plasma [2345-7] 05/20/2024 05:54 PM 135 mg/dL N Blood chemistry[[id number]] Glucose [Mass/volume] in Serum or Plasma [2345-7] 05/20/2024 11:20 AM 158 mg/dL N Blood chemistry[[id number]] Glucose [Mass/volume] in Serum or Plasma [2345-7] 05/20/2024 10:32 AM 113 mg/dL N Blood chemistry[[id number]] Glucose [Mass/volume] in Serum or Plasma [2345-7] 05/19/2024 05:41 PM 164 mg/dL N Blood chemistry[[id number]] Glucose [Mass/volume] in Serum or Plasma [2345-7] 05/19/2024 10:19 AM 208 mg/dL N Blood chemistry[[id number]] Glucose [Mass/volume] in Serum or Plasma [2345-7] 05/19/2024 11:23 AM 156 mg/dL N Blood chemistry[[id number]] Glucose [Mass/volume] in Serum or Plasma [2345-7] 05/18/2024 11:04 AM 137 mg/dL N Blood chemistry[[id number]] Glucose [Mass/volume] in Serum or Plasma [2345-7] 05/18/2024 05:36 PM 223 mg/dL N Blood chemistry[[id number]] Glucose [Mass/volume] in Serum or Plasma [2345-7] 05/18/2024 11:25 AM 119 mg/dL N Blood chemistry[[id number]] Glucose [Mass/volume] in Serum or Plasma [2345-7] 05/17/2024 05:19 PM 139 mg/dL N Blood chemistry[[id number]] Glucose [Mass/volume] in Serum or Plasma [2345-7] 05/17/2024 11:31 AM 165 mg/dL N Blood chemistry[[id number]] Glucose [Mass/volume] in Serum or Plasma [2345-7] 05/17/2024 11:28 AM 118 mg/dL N Blood chemistry[[id number]] Glucose [Mass/volume] in Serum or Plasma [2345-7] 05/16/2024 05:26 PM 124 mg/dL N Blood chemistry[[id number]] Glucose [Mass/volume] in Serum or Plasma [2345-7] 05/16/2024 11:43 AM 150 mg/dL N Blood chemistry[[id number]] Glucose [Mass/volume] in Serum or Plasma [2345-7] 05/16/2024 11:02 AM 137 mg/dL N Blood chemistry[[id number]] Glucose [Mass/volume] in Serum or Plasma [2345-7] 05/16/2024 10:45 AM 150 mg/dL N Blood chemistry[[id number]] Glucose [Mass/volume] in Serum or Plasma [2345-7] 05/15/2024 01:16 PM 140 mg/dL N Blood chemistry[[id number]] Glucose [Mass/volume] in Serum or Plasma [2345-7] 05/15/2024 10:36 AM 122 mg/dL N Blood chemistry[[id number]] Glucose [Mass/volume] in Serum or Plasma [2345-7] 05/15/2024 07:11 AM 135 mg/dL N Blood chemistry[[id number]] Glucose [Mass/volume] in Serum or Plasma [2345-7] 05/14/2024 05:27 PM 115 mg/dL N Blood chemistry[[id number]] Glucose [Mass/volume] in Serum or Plasma [2345-7] 05/14/2024 11:33 AM 183 mg/dL N Blood chemistry[[id number]] Glucose [Mass/volume] in Serum or Plasma [2345-7] 05/14/2024 10:14 AM 204 mg/dL N Blood chemistry[[id number]] Glucose [Mass/volume] in Serum or Plasma [2345-7] 05/13/2024 05:42 PM 176 mg/dL N Blood chemistry[[id number]] Glucose [Mass/volume] in Serum or Plasma [2345-7] 05/13/2024 10:35 AM 120 mg/dL N Blood chemistry[[id number]] Glucose [Mass/volume] in Serum or Plasma [2345-7] 05/13/2024 09:23 AM 155 mg/dL N Blood chemistry[[id number]] Glucose [Mass/volume] in Serum or Plasma [2345-7] 05/12/2024 05:30 PM 106 mg/dL N Blood chemistry[[id number]] Glucose [Mass/volume] in Serum or Plasma [2345-7] 05/12/2024 10:37 AM 113 mg/dL N Blood chemistry[[id number]] Glucose [Mass/volume] in Serum or Plasma [2345-7] 05/11/2024 06:43 PM 134 mg/dL N Blood chemistry[[id number]] Glucose [Mass/volume] in Serum or Plasma [2345-7] 05/11/2024 01:31 PM 109 mg/dL N Blood chemistry[[id number]] Glucose [Mass/volume] in Serum or Plasma [2345-7] 05/11/2024 10:35 AM 109 mg/dL N Blood chemistry[[id number]] Glucose [Mass/volume] in Serum or Plasma [2345-7] 05/10/2024 10:29 AM 146 mg/dL N Blood chemistry[[id number]] Glucose [Mass/volume] in Serum or Plasma [2345-7] 05/10/2024 05:15 PM 180 mg/dL N Blood chemistry[[id number]] Glucose [Mass/volume] in Serum or Plasma [2345-7] 05/10/2024 11:25 AM 105 mg/dL N Blood chemistry[[id number]] Glucose [Mass/volume] in Serum or Plasma [2345-7] 05/09/2024 05:59 PM 193 mg/dL N Blood chemistry[[id number]] Glucose [Mass/volume] in Serum or Plasma [2345-7] 05/09/2024 10:37 AM 141 mg/dL N Blood chemistry[[id number]] Glucose [Mass/volume] in Serum or Plasma [2345-7] 05/09/2024 10:14 AM 88 mg/dL N Blood chemistry[[id number]] Glucose [Mass/volume] in Serum or Plasma [2345-7] 05/08/2024 06:55 PM 134 mg/dL N Blood chemistry[[id number]] Glucose [Mass/volume] in Serum or Plasma [2345-7] 05/08/2024 10:06 AM 66 mg/dL N Blood chemistry[[id number]] Glucose [Mass/volume] in Serum or Plasma [2345-7] 05/08/2024 10:04 AM 176 mg/dL N Blood chemistry[[id number]] Glucose [Mass/volume] in Serum or Plasma [2345-7] 05/08/2024 09:36 AM 176 mg/dL N Blood chemistry[[id number]] Glucose [Mass/volume] in Serum or Plasma [2345-7] 05/07/2024 10:44 AM 149 mg/dL N Blood chemistry[[id number]] Glucose [Mass/volume] in Serum or Plasma [2345-7] 05/07/2024 10:13 AM 74 mg/dL N Blood chemistry[[id number]] Glucose [Mass/volume] in Serum or Plasma [2345-7] 05/07/2024 08:39 AM 81 mg/dL N Blood chemistry[[id number]] Glucose [Mass/volume] in Serum or Plasma [2345-7] 05/06/2024 05:57 PM 89 mg/dL N Blood chemistry[[id number]] Glucose [Mass/volume] in Serum or Plasma [2345-7] 05/06/2024 11:16 AM 79 mg/dL N Blood chemistry[[id number]] Glucose [Mass/volume] in Serum or Plasma [2345-7] 05/06/2024 10:41 AM 187 mg/dL N Blood chemistry[[id number]] Glucose [Mass/volume] in Serum or Plasma [2345-7] 05/05/2024 11:31 AM 143 mg/dL N Blood chemistry[[id number]] Glucose [Mass/volume] in Serum or Plasma [2345-7] 05/05/2024 10:53 AM 189 mg/dL N Blood chemistry[[id number]] Glucose [Mass/volume] in Serum or Plasma [2345-7] 05/05/2024 10:52 AM 189 mg/dL N Blood chemistry[[id number]] Glucose [Mass/volume] in Serum or Plasma [2345-7] 05/04/2024 06:42 PM 161 mg/dL N Blood chemistry[[id number]] Glucose [Mass/volume] in Serum or Plasma [2345-7] 05/04/2024 10:53 AM 137 mg/dL N Blood chemistry[[id number]] Glucose [Mass/volume] in Serum or Plasma [2345-7] 05/04/2024 11:35 AM 89 mg/dL N Blood chemistry[[id number]] Glucose [Mass/volume] in Serum or Plasma [2345-7] 05/03/2024 10:31 AM 135 mg/dL N Blood chemistry[[id number]] Glucose [Mass/volume] in Serum or Plasma [2345-7] 05/03/2024 05:36 PM 127 mg/dL N Blood chemistry[[id number]] Glucose [Mass/volume] in Serum or Plasma [2345-7] 05/03/2024 11:43 AM 108 mg/dL N Blood chemistry[[id number]] Glucose [Mass/volume] in Serum or Plasma [2345-7] 05/02/2024 05:45 PM 116 mg/dL N Blood chemistry[[id number]] Glucose [Mass/volume] in Serum or Plasma [2345-7] 05/02/2024 10:46 AM 161 mg/dL N Blood chemistry[[id number]] Glucose [Mass/volume] in Serum or Plasma [2345-7] 05/02/2024 10:38 AM 92 mg/dL N Blood chemistry[[id number]] Glucose [Mass/volume] in Serum or Plasma [2345-7] 05/01/2024 05:20 PM 195 mg/dL N Blood chemistry[[id number]] Glucose [Mass/volume] in Serum or Plasma [2345-7] 05/01/2024 10:25 AM 136 mg/dL N Blood chemistry[[id number]] Glucose [Mass/volume] in Serum or Plasma [2345-7] 05/01/2024 10:13 AM 332 mg/dL N Blood chemistry[[id number]] Glucose [Mass/volume] in Serum or Plasma [2345-7] 04/30/2024 12:13 PM 107 mg/dL N Blood chemistry[[id number]] Glucose [Mass/volume] in Serum or Plasma [2345-7] 04/30/2024 06:39 PM 165 mg/dL N Blood chemistry[[id number]] Glucose [Mass/volume] in Serum or Plasma [2345-7] 04/30/2024 10:00 AM 110 mg/dL N Blood chemistry[[id number]] Glucose [Mass/volume] in Serum or Plasma [2345-7] 04/29/2024 05:52 PM 142 mg/dL N Blood chemistry[[id number]] Glucose [Mass/volume] in Serum or Plasma [2345-7] 04/29/2024 10:44 AM 155 mg/dL N Blood chemistry[[id number]] Glucose [Mass/volume] in Serum or Plasma [2345-7] 04/29/2024 10:41 AM 155 mg/dL N Blood chemistry[[id number]] Glucose [Mass/volume] in Serum or Plasma [2345-7] 04/29/2024 10:00 AM 123 mg/dL N Blood chemistry[[id number]] Glucose [Mass/volume] in Serum or Plasma [2345-7] 04/28/2024 06:06 PM 147 mg/dL N Blood chemistry[[id number]] Glucose [Mass/volume] in Serum or Plasma [2345-7] 04/28/2024 11:31 AM 209 mg/dL N Blood chemistry[[id number]] Glucose [Mass/volume] in Serum or Plasma [2345-7] 04/28/2024 11:04 AM 144 mg/dL N Glucose [Mass/volume] in Serum or Plasma [2345-7] 04/28/2024 11:04 AM 144 mg/dL N Blood chemistry[[id number]] Glucose [Mass/volume] in Serum or Plasma [2345-7] 04/27/2024 12:25 PM 166 mg/dL N Blood chemistry[[id number]] Glucose [Mass/volume] in Serum or Plasma [2345-7] 04/27/2024 07:43 AM 139 mg/dL N Blood chemistry[[id number]] Glucose [Mass/volume] in Serum or Plasma [2345-7] 04/27/2024 10:28 AM 151 mg/dL N Blood chemistry[[id number]] Glucose [Mass/volume] in Serum or Plasma [2345-7] 04/26/2024 11:46 AM 135 mg/dL N Blood chemistry[[id number]] Glucose [Mass/volume] in Serum or Plasma [2345-7] 04/26/2024 11:45 AM 135 mg/dL N Blood chemistry[[id number]] Glucose [Mass/volume] in Serum or Plasma [2345-7] 04/26/2024 11:43 AM 117 mg/dL N Blood chemistry[[id number]] Glucose [Mass/volume] in Serum or Plasma [2345-7] 04/26/2024 11:00 AM 157 mg/dL N Blood chemistry[[id number]] Glucose [Mass/volume] in Serum or Plasma [2345-7] 04/25/2024 10:20 AM 127 mg/dL N Blood chemistry[[id number]] Glucose [Mass/volume] in Serum or Plasma [2345-7] 04/25/2024 09:34 AM 213 mg/dL N Blood chemistry[[id number]] Glucose [Mass/volume] in Serum or Plasma [2345-7] 04/24/2024 05:13 PM 161 mg/dL N Blood chemistry[[id number]] Glucose [Mass/volume] in Serum or Plasma [2345-7] 04/24/2024 10:29 AM 171 mg/dL N Blood chemistry[[id number]] Glucose [Mass/volume] in Serum or Plasma [2345-7] 04/24/2024 10:09 AM 161 mg/dL N Blood chemistry[[id number]] Glucose [Mass/volume] in Serum or Plasma [2345-7] 04/23/2024 10:29 AM 159 mg/dL N Blood chemistry[[id number]] Glucose [Mass/volume] in Serum or Plasma [2345-7] 04/23/2024 05:15 PM 224 mg/dL N Blood chemistry[[id number]] Glucose [Mass/volume] in Serum or Plasma [2345-7] 04/23/2024 10:18 AM 158 mg/dL N Blood chemistry[[id number]] Glucose [Mass/volume] in Serum or Plasma [2345-7] 04/22/2024 05:16 PM 143 mg/dL N Blood chemistry[[id number]] Glucose [Mass/volume] in Serum or Plasma [2345-7] 04/22/2024 10:14 AM 128 mg/dL N Blood chemistry[[id number]] Glucose [Mass/volume] in Serum or Plasma [2345-7] 04/21/2024 05:50 PM 150 mg/dL N Blood chemistry[[id number]] Glucose [Mass/volume] in Serum or Plasma [2345-7] 04/21/2024 01:46 PM 130 mg/dL N Blood chemistry[[id number]] Glucose [Mass/volume] in Serum or Plasma [2345-7] 04/21/2024 10:15 AM 183 mg/dL N Blood chemistry[[id number]] Glucose [Mass/volume] in Serum or Plasma [2345-7] 04/21/2024 10:14 AM 183 mg/dL N Blood chemistry[[id number]] Glucose [Mass/volume] in Serum or Plasma [2345-7] 04/20/2024 06:24 PM 156 mg/dL N Blood chemistry[[id number]] Glucose [Mass/volume] in Serum or Plasma [2345-7] 04/20/2024 10:32 AM 182 mg/dL N Blood chemistry[[id number]] Glucose [Mass/volume] in Serum or Plasma [2345-7] 04/20/2024 10:47 AM 124 mg/dL N Blood chemistry[[id number]] Glucose [Mass/volume] in Serum or Plasma [2345-7] 04/19/2024 09:40 AM 139 mg/dL N Blood chemistry[[id number]] Glucose [Mass/volume] in Serum or Plasma [2345-7] 04/19/2024 05:28 PM 179 mg/dL N Blood chemistry[[id number]] Glucose [Mass/volume] in Serum or Plasma [2345-7] 04/18/2024 06:27 PM 127 mg/dL N Blood chemistry[[id number]] Glucose [Mass/volume] in Serum or Plasma [2345-7] 04/18/2024 12:32 PM 104 mg/dL N Blood chemistry[[id number]] Glucose [Mass/volume] in Serum or Plasma [2345-7] 04/18/2024 10:25 AM 109 mg/dL N Blood chemistry[[id number]] Glucose [Mass/volume] in Serum or Plasma [2345-7] 04/17/2024 11:23 AM 171 mg/dL N Blood chemistry[[id number]] Glucose [Mass/volume] in Serum or Plasma [2345-7] 04/17/2024 11:10 AM 171 mg/dL N Blood chemistry[[id number]] Glucose [Mass/volume] in Serum or Plasma [2345-7] 04/12/2024 08:23 AM 141 mg/dL N Blood chemistry[[id number]] Glucose [Mass/volume] in Serum or Plasma [2345-7] 04/11/2024 06:56 PM 139 mg/dL N Blood chemistry[[id number]] Glucose [Mass/volume] in Serum or Plasma [2345-7] 04/11/2024 12:04 PM 183 mg/dL N Blood chemistry[[id number]] Glucose [Mass/volume] in Serum or Plasma [2345-7] 04/11/2024 10:02 AM 94 mg/dL N Blood chemistry[[id number]] Glucose [Mass/volume] in Serum or Plasma [2345-7] 04/10/2024 04:54 PM 217 mg/dL N Blood chemistry[[id number]] Glucose [Mass/volume] in Serum or Plasma [2345-7] 04/10/2024 10:28 AM 138 mg/dL N Blood chemistry[[id number]] Glucose [Mass/volume] in Serum or Plasma [2345-7] 04/10/2024 10:34 AM 133 mg/dL N Blood chemistry[[id number]] Glucose [Mass/volume] in Serum or Plasma [2345-7] 04/09/2024 10:23 AM 145 mg/dL N Blood chemistry[[id number]] Glucose [Mass/volume] in Serum or Plasma [2345-7] 04/09/2024 10:00 AM 223 mg/dL N Blood chemistry[[id number]] Glucose [Mass/volume] in Serum or Plasma [2345-7] 04/09/2024 07:04 AM 126 mg/dL N Blood chemistry[[id number]] Glucose [Mass/volume] in Serum or Plasma [2345-7] 04/08/2024 06:11 PM 211 mg/dL N Blood chemistry[[id number]] Glucose [Mass/volume] in Serum or Plasma [2345-7] 04/08/2024 05:42 PM 249 mg/dL N Blood chemistry[[id number]] Glucose [Mass/volume] in Serum or Plasma [2345-7] 04/08/2024 10:45 AM 212 mg/dL N Blood chemistry[[id number]] Glucose [Mass/volume] in Serum or Plasma [2345-7] 04/08/2024 10:22 AM 159 mg/dL N Blood chemistry[[id number]] Glucose [Mass/volume] in Serum or Plasma [2345-7] 04/07/2024 05:47 PM 139 mg/dL N Blood chemistry[[id number]] Glucose [Mass/volume] in Serum or Plasma [2345-7] 04/07/2024 11:20 AM 150 mg/dL N Blood chemistry[[id number]] Glucose [Mass/volume] in Serum or Plasma [2345-7] 04/07/2024 10:34 AM 252 mg/dL N Blood chemistry[[id number]] Glucose [Mass/volume] in Serum or Plasma [2345-7] 04/06/2024 04:55 PM 170 mg/dL N Blood chemistry[[id number]] Glucose [Mass/volume] in Serum or Plasma [2345-7] 04/06/2024 10:50 AM 184 mg/dL N Blood chemistry[[id number]] Glucose [Mass/volume] in Serum or Plasma [2345-7] 04/06/2024 09:50 AM 215 mg/dL N Blood chemistry[[id number]] Glucose [Mass/volume] in Serum or Plasma [2345-7] 04/05/2024 05:13 PM 212 mg/dL N Blood chemistry[[id number]] Glucose [Mass/volume] in Serum or Plasma [2345-7] 04/05/2024 10:51 AM 145 mg/dL N Blood chemistry[[id number]] Glucose [Mass/volume] in Serum or Plasma [2345-7] 04/05/2024 10:27 AM 145 mg/dL N Blood chemistry[[id number]] Glucose [Mass/volume] in Serum or Plasma [2345-7] 04/04/2024 06:01 PM 109 mg/dL N Blood chemistry[[id number]] Glucose [Mass/volume] in Serum or Plasma [2345-7] 04/04/2024 11:25 AM 116 mg/dL N Blood chemistry[[id number]] Glucose [Mass/volume] in Serum or Plasma [2345-7] 04/04/2024 10:14 AM 104 mg/dL N Blood chemistry[[id number]] Glucose [Mass/volume] in Serum or Plasma [2345-7] 04/03/2024 04:52 PM 219 mg/dL N Blood chemistry[[id number]] Glucose [Mass/volume] in Serum or Plasma [2345-7] 04/03/2024 12:27 PM 133 mg/dL N Blood chemistry[[id number]] Glucose [Mass/volume] in Serum or Plasma [2345-7] 04/03/2024 12:25 PM 170 mg/dL N Blood chemistry[[id number]] Glucose [Mass/volume] in Serum or Plasma [2345-7] 04/03/2024 11:00 AM 172 mg/dL N Blood chemistry[[id number]] Glucose [Mass/volume] in Serum or Plasma [2345-7] 04/02/2024 12:34 PM 178 mg/dL N Blood chemistry[[id number]] Glucose [Mass/volume] in Serum or Plasma [2345-7] 04/02/2024 11:15 AM 124 mg/dL N Blood chemistry[[id number]] Glucose [Mass/volume] in Serum or Plasma [2345-7] 03/29/2024 11:42 AM 178 mg/dL N Blood chemistry[[id number]] Glucose [Mass/volume] in Serum or Plasma [2345-7] 03/29/2024 11:00 AM 190 mg/dL N Blood chemistry[[id number]] Glucose [Mass/volume] in Serum or Plasma [2345-7] 03/29/2024 10:15 AM 205 mg/dL N Blood chemistry[[id number]] Glucose [Mass/volume] in Serum or Plasma [2345-7] 03/28/2024 12:10 PM 387 mg/dL N Blood chemistry[[id number]] Glucose [Mass/volume] in Serum or Plasma [2345-7] 03/28/2024 10:18 AM 236 mg/dL N Blood chemistry[[id number]] Glucose [Mass/volume] in Serum or Plasma [2345-7] 03/28/2024 08:22 AM 186 mg/dL N Blood chemistry[[id number]] Glucose [Mass/volume] in Serum or Plasma [2345-7] 2024 05:18 PM 270 mg/dL N Blood chemistry[[id number]] Glucose [Mass/volume] in Serum or Plasma [2345-7] 2024 11:06 AM 119 mg/dL N Blood chemistry[[id number]] Glucose [Mass/volume] in Serum or Plasma [2345-7] 2024 10:49 AM 206 mg/dL N Blood chemistry[[id number]] Glucose [Mass/volume] in Serum or Plasma [2345-7] 03/26/2024 05:13 PM 216 mg/dL N Blood chemistry[[id number]] Glucose [Mass/volume] in Serum or Plasma [2345-7] 03/26/2024 10:35 AM 199 mg/dL N Blood chemistry[[id number]] Glucose [Mass/volume] in Serum or Plasma [2345-7] 03/26/2024 10:32 AM 152 mg/dL N Blood chemistry[[id number]] Glucose [Mass/volume] in Serum or Plasma [2345-7] 03/25/2024 11:27 AM 259 mg/dL N Blood chemistry[[id number]] Glucose [Mass/volume] in Serum or Plasma [2345-7] 03/25/2024 10:09 AM 221 mg/dL N Blood chemistry[[id number]] Glucose [Mass/volume] in Serum or Plasma [2345-7] 03/25/2024 08:13 AM 165 mg/dL N Blood chemistry[[id number]] Glucose [Mass/volume] in Serum or Plasma [2345-7] 03/24/2024 05:15 PM 345 mg/dL N Blood chemistry[[id number]] Glucose [Mass/volume] in Serum or Plasma [2345-7] 03/24/2024 11:48 AM 130 mg/dL N Blood chemistry[[id number]] Glucose [Mass/volume] in Serum or Plasma [2345-7] 03/24/2024 10:37 AM 177 mg/dL N Blood chemistry[[id number]] Glucose [Mass/volume] in Serum or Plasma [2345-7] 03/23/2024 05:49 PM 197 mg/dL N Blood chemistry[[id number]] Glucose [Mass/volume] in Serum or Plasma [2345-7] 03/23/2024 11:16 AM 244 mg/dL N Blood chemistry[[id number]] Glucose [Mass/volume] in Serum or Plasma [2345-7] 03/23/2024 10:21 AM 264 mg/dL N Blood chemistry[[id number]] Glucose [Mass/volume] in Serum or Plasma [2345-7] 03/19/2024 10:27 AM 146 mg/dL N Blood chemistry[[id number]] Glucose [Mass/volume] in Serum or Plasma [2345-7] 03/18/2024 05:33 PM 276 mg/dL N Blood chemistry[[id number]] Glucose [Mass/volume] in Serum or Plasma [2345-7] 03/18/2024 11:39 AM 141 mg/dL N Blood chemistry[[id number]] Glucose [Mass/volume] in Serum or Plasma [2345-7] 03/18/2024 10:23 AM 162 mg/dL N Blood chemistry[[id number]] Glucose [Mass/volume] in Serum or Plasma [2345-7] 03/17/2024 05:55 PM 135 mg/dL N Blood chemistry[[id number]] Glucose [Mass/volume] in Serum or Plasma [2345-7] 03/17/2024 11:42 AM 135 mg/dL N Blood chemistry[[id number]] Glucose [Mass/volume] in Serum or Plasma [2345-7] 03/16/2024 05:48 PM 160 mg/dL N Blood chemistry[[id number]] Glucose [Mass/volume] in Serum or Plasma [2345-7] 03/16/2024 11:33 AM 190 mg/dL N Blood chemistry[[id number]] Glucose [Mass/volume] in Serum or Plasma [2345-7] 03/16/2024 10:48 AM 177 mg/dL N Blood chemistry[[id number]] Glucose [Mass/volume] in Serum or Plasma [2345-7] 03/15/2024 05:53 PM 198 mg/dL N Blood chemistry[[id number]] Glucose [Mass/volume] in Serum or Plasma [2345-7] 03/15/2024 11:35 AM 135 mg/dL N Blood chemistry[[id number]] Glucose [Mass/volume] in Serum or Plasma [2345-7] 03/15/2024 10:40 AM 120 mg/dL N Blood chemistry[[id number]] Glucose [Mass/volume] in Serum or Plasma [2345-7] 03/14/2024 05:51 PM 148 mg/dL N Blood chemistry[[id number]] Glucose [Mass/volume] in Serum or Plasma [2345-7] 03/14/2024 11:00 AM 213 mg/dL N Blood chemistry[[id number]] Glucose [Mass/volume] in Serum or Plasma [2345-7] 03/14/2024 10:10 AM 82 mg/dL N Blood chemistry[[id number]] Glucose [Mass/volume] in Serum or Plasma [2345-7] 03/13/2024 05:48 PM 180 mg/dL N Blood chemistry[[id number]] Glucose [Mass/volume] in Serum or Plasma [2345-7] 03/13/2024 10:32 AM 74 mg/dL N Blood chemistry[[id number]] Glucose [Mass/volume] in Serum or Plasma [2345-7] 03/13/2024 10:29 AM 153 mg/dL N Blood chemistry[[id number]] Glucose [Mass/volume] in Serum or Plasma [2345-7] 03/12/2024 05:26 PM 92 mg/dL N Blood chemistry[[id number]] Glucose [Mass/volume] in Serum or Plasma [2345-7] 03/12/2024 11:09 AM 163 mg/dL N Blood chemistry[[id number]] Glucose [Mass/volume] in Serum or Plasma [2345-7] 03/12/2024 10:05 AM 115 mg/dL N Blood chemistry[[id number]] Glucose [Mass/volume] in Serum or Plasma [2345-7] 03/11/2024 04:36 PM 195 mg/dL N Blood chemistry[[id number]] Glucose [Mass/volume] in Serum or Plasma [2345-7] 03/11/2024 11:21 AM 94 mg/dL N Blood chemistry[[id number]] Glucose [Mass/volume] in Serum or Plasma [2345-7] 03/11/2024 09:52 AM 154 mg/dL N Blood chemistry[[id number]] Glucose [Mass/volume] in Serum or Plasma [2345-7] 03/10/2024 05:35 PM 101 mg/dL N Blood chemistry[[id number]] Glucose [Mass/volume] in Serum or Plasma [2345-7] 03/10/2024 10:54 AM 115 mg/dL N Glucose [Mass/volume] in Serum or Plasma [2345-7] 03/10/2024 10:54 AM 114 mg/dL N Blood chemistry[[id number]] Glucose [Mass/volume] in Serum or Plasma [2345-7] 03/10/2024 09:31 AM 157 mg/dL N Blood chemistry[[id number]] Glucose [Mass/volume] in Serum or Plasma [2345-7] 03/09/2024 10:35 AM 130 mg/dL N Blood chemistry[[id number]] Glucose [Mass/volume] in Serum or Plasma [2345-7] 03/08/2024 05:11 PM 143 mg/dL N Blood chemistry[[id number]] Glucose [Mass/volume] in Serum or Plasma [2345-7] 03/08/2024 11:10 AM 115 mg/dL N Blood chemistry[[id number]] Glucose [Mass/volume] in Serum or Plasma [2345-7] 03/08/2024 10:26 AM 127 mg/dL N Blood chemistry[[id number]] Glucose [Mass/volume] in Serum or Plasma [2345-7] 03/07/2024 06:21 PM 116 mg/dL N Blood chemistry[[id number]] Glucose [Mass/volume] in Serum or Plasma [2345-7] 03/07/2024 12:24 PM 121 mg/dL N Blood chemistry[[id number]] Glucose [Mass/volume] in Serum or Plasma [2345-7] 03/07/2024 10:15 AM 137 mg/dL N Blood chemistry[[id number]] Glucose [Mass/volume] in Serum or Plasma [2345-7] 03/06/2024 04:51 PM 156 mg/dL N Blood chemistry[[id number]] Glucose [Mass/volume] in Serum or Plasma [2345-7] 03/06/2024 12:06 PM 91 mg/dL N Blood chemistry[[id number]] Glucose [Mass/volume] in Serum or Plasma [2345-7] 03/05/2024 06:12 PM 224 mg/dL N Blood chemistry[[id number]] Glucose [Mass/volume] in Serum or Plasma [2345-7] 03/05/2024 11:24 AM 134 mg/dL N Blood chemistry[[id number]] Glucose [Mass/volume] in Serum or Plasma [2345-7] 03/05/2024 10:04 AM 115 mg/dL N Blood chemistry[[id number]] Glucose [Mass/volume] in Serum or Plasma [2345-7] 03/04/2024 12:47 PM 128 mg/dL N Blood chemistry[[id number]] Glucose [Mass/volume] in Serum or Plasma [2345-7] 03/04/2024 10:57 AM 85 mg/dL N Blood chemistry[[id number]] Glucose [Mass/volume] in Serum or Plasma [2345-7] 03/04/2024 10:37 AM 189 mg/dL N Blood chemistry[[id number]] Glucose [Mass/volume] in Serum or Plasma [2345-7] 03/03/2024 01:49 PM 104 mg/dL N Blood chemistry[[id number]] Glucose [Mass/volume] in Serum or Plasma [2345-7] 03/03/2024 11:21 AM 162 mg/dL N Blood chemistry[[id number]] Glucose [Mass/volume] in Serum or Plasma [2345-7] 03/03/2024 07:25 AM 142 mg/dL N Blood chemistry[[id number]] Glucose [Mass/volume] in Serum or Plasma [2345-7] 03/02/2024 05:17 PM 155 mg/dL N Blood chemistry[[id number]] Glucose [Mass/volume] in Serum or Plasma [2345-7] 03/02/2024 11:09 AM 98 mg/dL N Blood chemistry[[id number]] Glucose [Mass/volume] in Serum or Plasma [2345-7] 03/02/2024 10:53 AM 125 mg/dL N Blood chemistry[[id number]] Glucose [Mass/volume] in Serum or Plasma [2345-7] 03/01/2024 04:53 PM 120 mg/dL N Blood chemistry[[id number]] Glucose [Mass/volume] in Serum or Plasma [2345-7] 03/01/2024 10:21 AM 81 mg/dL N Blood chemistry[[id number]] Glucose [Mass/volume] in Serum or Plasma [2345-7] 03/01/2024 09:13 AM 108 mg/dL N Blood chemistry[[id number]] Glucose [Mass/volume] in Serum or Plasma [2345-7] 02/29/2024 05:06 PM 138 mg/dL N Blood chemistry[[id number]] Glucose [Mass/volume] in Serum or Plasma [2345-7] 02/29/2024 09:14 AM 91 mg/dL N Blood chemistry[[id number]] Glucose [Mass/volume] in Serum or Plasma [2345-7] 02/29/2024 09:06 AM 131 mg/dL N Blood chemistry[[id number]] Glucose [Mass/volume] in Serum or Plasma [2345-7] 02/28/2024 05:55 PM 98 mg/dL N Blood chemistry[[id number]] Glucose [Mass/volume] in Serum or Plasma [2345-7] 02/28/2024 09:24 AM 177 mg/dL N Blood chemistry[[id number]] Glucose [Mass/volume] in Serum or Plasma [2345-7] 02/28/2024 09:01 AM 93 mg/dL N Blood chemistry[[id number]] Glucose [Mass/volume] in Serum or Plasma [2345-7] 02/27/2024 09:04 AM 73 mg/dL N Blood chemistry[[id number]] Glucose [Mass/volume] in Serum or Plasma [2345-7] 02/27/2024 08:56 AM 138 mg/dL N Blood chemistry[[id number]] Glucose [Mass/volume] in Serum or Plasma [2345-7] 02/26/2024 04:41 PM 149 mg/dL N Blood chemistry[[id number]] Glucose [Mass/volume] in Serum or Plasma [2345-7] 02/26/2024 09:32 AM 83 mg/dL N Blood chemistry[[id number]] Glucose [Mass/volume] in Serum or Plasma [2345-7] 02/25/2024 04:42 PM 170 mg/dL N Blood chemistry[[id number]] Glucose [Mass/volume] in Serum or Plasma [2345-7] 02/25/2024 10:15 AM 100 mg/dL N Blood chemistry[[id number]] Glucose [Mass/volume] in Serum or Plasma [2345-7] 02/25/2024 09:05 AM 179 mg/dL N Blood chemistry[[id number]] Glucose [Mass/volume] in Serum or Plasma [2345-7] 02/24/2024 04:20 PM 129 mg/dL N Blood chemistry[[id number]] Glucose [Mass/volume] in Serum or Plasma [2345-7] 02/24/2024 09:24 AM 122 mg/dL N Blood chemistry[[id number]] Glucose [Mass/volume] in Serum or Plasma [2345-7] 02/23/2024 11:46 AM 131 mg/dL N Blood chemistry[[id number]] Glucose [Mass/volume] in Serum or Plasma [2345-7] 02/23/2024 10:15 AM 150 mg/dL N Blood chemistry[[id number]] Glucose [Mass/volume] in Serum or Plasma [2345-7] 02/23/2024 06:49 AM 188 mg/dL N Blood chemistry[[id number]] Glucose [Mass/volume] in Serum or Plasma [2345-7] 02/22/2024 10:09 AM 127 mg/dL N Glucose [Mass/volume] in Serum or Plasma [2345-7] 02/22/2024 10:09 AM 113 mg/dL N Blood chemistry[[id number]] Glucose [Mass/volume] in Serum or Plasma [2345-7] 02/22/2024 10:00 AM 201 mg/dL N Blood chemistry[[id number]] Glucose [Mass/volume] in Serum or Plasma [2345-7] 02/21/2024 04:32 PM 173 mg/dL N Blood chemistry[[id number]] Glucose [Mass/volume] in Serum or Plasma [2345-7] 02/21/2024 09:34 AM 105 mg/dL N Blood chemistry[[id number]] Glucose [Mass/volume] in Serum or Plasma [2345-7] 02/21/2024 09:29 AM 145 mg/dL N Blood chemistry[[id number]] Glucose [Mass/volume] in Serum or Plasma [2345-7] 02/20/2024 05:33 PM 182 mg/dL N Blood chemistry[[id number]] Glucose [Mass/volume] in Serum or Plasma [2345-7] 02/20/2024 10:03 AM 103 mg/dL N Blood chemistry[[id number]] Glucose [Mass/volume] in Serum or Plasma [2345-7] 02/20/2024 09:11 AM 106 mg/dL N Blood chemistry[[id number]] Glucose [Mass/volume] in Serum or Plasma [2345-7] 02/19/2024 05:45 PM 184 mg/dL N Blood chemistry[[id number]] Glucose [Mass/volume] in Serum or Plasma [2345-7] 02/19/2024 11:28 AM 162 mg/dL N Blood chemistry[[id number]] Glucose [Mass/volume] in Serum or Plasma [2345-7] 02/19/2024 09:10 AM 85 mg/dL N Blood chemistry[[id number]] Glucose [Mass/volume] in Serum or Plasma [2345-7] 02/18/2024 05:26 PM 167 mg/dL N COVID-19 Test Viral Antigen null flavor [null] 02/18/2024 05:00 PM See note NEG COVID-19 Test Viral Antigen Blood chemistry[[id number]] Glucose [Mass/volume] in Serum or Plasma [2345-7] 02/18/2024 10:00 AM 150 mg/dL N Glucose [Mass/volume] in Serum or Plasma [2345-7] 02/18/2024 10:00 AM 109 mg/dL N Blood chemistry[[id number]] Glucose [Mass/volume] in Serum or Plasma [2345-7] 02/17/2024 05:04 PM 150 mg/dL N Blood chemistry[[id number]] Glucose [Mass/volume] in Serum or Plasma [2345-7] 02/17/2024 10:53 AM 213 mg/dL N Blood chemistry[[id number]] Glucose [Mass/volume] in Serum or Plasma [2345-7] 02/17/2024 09:56 AM 169 mg/dL N Blood chemistry[[id number]] Glucose [Mass/volume] in Serum or Plasma [2345-7] 02/16/2024 04:48 PM 173 mg/dL N Blood chemistry[[id number]] Glucose [Mass/volume] in Serum or Plasma [2345-7] 02/16/2024 11:16 AM 90 mg/dL N Blood chemistry[[id number]] Glucose [Mass/volume] in Serum or Plasma [2345-7] 02/16/2024 11:15 AM 136 mg/dL N Blood chemistry[[id number]] Glucose [Mass/volume] in Serum or Plasma [2345-7] 02/15/2024 05:02 PM 113 mg/dL N Blood chemistry[[id number]] Glucose [Mass/volume] in Serum or Plasma [2345-7] 02/15/2024 09:20 AM 217 mg/dL N Blood chemistry[[id number]] Glucose [Mass/volume] in Serum or Plasma [2345-7] 02/15/2024 09:14 AM 127 mg/dL N Blood chemistry[[id number]] Glucose [Mass/volume] in Serum or Plasma [2345-7] 02/14/2024 04:58 PM 153 mg/dL N Blood chemistry[[id number]] Glucose [Mass/volume] in Serum or Plasma [2345-7] 02/14/2024 09:30 AM 127 mg/dL N Blood chemistry[[id number]] Glucose [Mass/volume] in Serum or Plasma [2345-7] 02/14/2024 09:20 AM 140 mg/dL N Blood chemistry[[id number]] Glucose [Mass/volume] in Serum or Plasma [2345-7] 02/13/2024 05:14 PM 126 mg/dL N Blood chemistry[[id number]] Glucose [Mass/volume] in Serum or Plasma [2345-7] 02/13/2024 09:13 AM 138 mg/dL N Blood chemistry[[id number]] Glucose [Mass/volume] in Serum or Plasma [2345-7] 02/13/2024 09:00 AM 91 mg/dL N Blood chemistry[[id number]] Glucose [Mass/volume] in Serum or Plasma [2345-7] 02/12/2024 05:17 PM 203 mg/dL N Blood chemistry[[id number]] Glucose [Mass/volume] in Serum or Plasma [2345-7] 02/12/2024 09:18 AM 122 mg/dL N COVID-19 Test Viral Antigen null flavor [null] 02/11/2024 05:00 PM See note NEG COVID-19 Test Viral Antigen Blood chemistry[[id number]] Glucose [Mass/volume] in Serum or Plasma [2345-7] 02/11/2024 04:49 PM 162 mg/dL N Blood chemistry[[id number]] Glucose [Mass/volume] in Serum or Plasma [2345-7] 02/11/2024 08:50 AM 166 mg/dL N Blood chemistry[[id number]] Glucose [Mass/volume] in Serum or Plasma [2345-7] 02/10/2024 04:32 PM 191 mg/dL N Blood chemistry[[id number]] Glucose [Mass/volume] in Serum or Plasma [2345-7] 02/10/2024 10:03 AM 133 mg/dL N Blood chemistry[[id number]] Glucose [Mass/volume] in Serum or Plasma [2345-7] 02/10/2024 09:52 AM 175 mg/dL N Blood chemistry[[id number]] Glucose [Mass/volume] in Serum or Plasma [2345-7] 02/09/2024 04:25 PM 179 mg/dL N Blood chemistry[[id number]] Glucose [Mass/volume] in Serum or Plasma [2345-7] 02/09/2024 10:07 AM 148 mg/dL N Blood chemistry[[id number]] Glucose [Mass/volume] in Serum or Plasma [2345-7] 02/09/2024 09:39 AM 144 mg/dL N Blood chemistry[[id number]] Glucose [Mass/volume] in Serum or Plasma [2345-7] 02/08/2024 05:45 PM 220 mg/dL N Blood chemistry[[id number]] Glucose [Mass/volume] in Serum or Plasma [2345-7] 02/08/2024 10:01 AM 246 mg/dL N Blood chemistry[[id number]] Glucose [Mass/volume] in Serum or Plasma [2345-7] 02/08/2024 08:59 AM 187 mg/dL N Blood chemistry[[id number]] Glucose [Mass/volume] in Serum or Plasma [2345-7] 02/07/2024 10:50 AM 176 mg/dL N Blood chemistry[[id number]] Glucose [Mass/volume] in Serum or Plasma [2345-7] 02/07/2024 09:10 AM 189 mg/dL N Blood chemistry[[id number]] Glucose [Mass/volume] in Serum or Plasma [2345-7] 02/06/2024 05:08 PM 167 mg/dL N Blood chemistry[[id number]] Glucose [Mass/volume] in Serum or Plasma [2345-7] 02/06/2024 11:23 AM 185 mg/dL N Blood chemistry[[id number]] Glucose [Mass/volume] in Serum or Plasma [2345-7] 02/06/2024 10:10 AM 139 mg/dL N Blood chemistry[[id number]] Glucose [Mass/volume] in Serum or Plasma [2345-7] 02/05/2024 05:51 PM 209 mg/dL N Blood chemistry[[id number]] Glucose [Mass/volume] in Serum or Plasma [2345-7] 02/05/2024 09:33 AM 136 mg/dL N Blood chemistry[[id number]] Glucose [Mass/volume] in Serum or Plasma [2345-7] 02/05/2024 09:18 AM 170 mg/dL N Blood chemistry[[id number]] Glucose [Mass/volume] in Serum or Plasma [2345-7] 02/04/2024 05:03 PM 133 mg/dL N COVID-19 Test Viral Antigen null flavor [null] 02/04/2024 05:00 PM See note NEG COVID-19 Test Viral Antigen Blood chemistry[[id number]] Glucose [Mass/volume] in Serum or Plasma [2345-7] 02/04/2024 10:43 AM 127 mg/dL N Blood chemistry[[id number]] Glucose [Mass/volume] in Serum or Plasma [2345-7] 02/04/2024 09:36 AM 178 mg/dL N Blood chemistry[[id number]] Glucose [Mass/volume] in Serum or Plasma [2345-7] 02/03/2024 04:49 PM 239 mg/dL N Blood chemistry[[id number]] Glucose [Mass/volume] in Serum or Plasma [2345-7] 02/03/2024 10:01 AM 111 mg/dL N Blood chemistry[[id number]] Glucose [Mass/volume] in Serum or Plasma [2345-7] 02/03/2024 09:17 AM 160 mg/dL N Blood chemistry[[id number]] Glucose [Mass/volume] in Serum or Plasma [2345-7] 02/02/2024 05:35 PM 308 mg/dL N Blood chemistry[[id number]] Glucose [Mass/volume] in Serum or Plasma [2345-7] 02/02/2024 11:24 AM 133 mg/dL N Blood chemistry[[id number]] Glucose [Mass/volume] in Serum or Plasma [2345-7] 02/02/2024 11:00 AM 150 mg/dL N Blood chemistry[[id number]] Glucose [Mass/volume] in Serum or Plasma [2345-7] 02/01/2024 05:23 PM 142 mg/dL N Blood chemistry[[id number]] Glucose [Mass/volume] in Serum or Plasma [2345-7] 02/01/2024 11:18 AM 197 mg/dL N Blood chemistry[[id number]] Glucose [Mass/volume] in Serum or Plasma [2345-7] 02/01/2024 10:35 AM 151 mg/dL N Blood chemistry[[id number]] Glucose [Mass/volume] in Serum or Plasma [2345-7] 01/31/2024 03:45 PM 255 mg/dL N Blood chemistry[[id number]] Glucose [Mass/volume] in Serum or Plasma [2345-7] 01/31/2024 10:09 AM 181 mg/dL N Blood chemistry[[id number]] Glucose [Mass/volume] in Serum or Plasma [2345-7] 01/31/2024 09:03 AM 106 mg/dL N Blood chemistry[[id number]] Glucose [Mass/volume] in Serum or Plasma [2345-7] 01/30/2024 04:42 PM 193 mg/dL N Blood chemistry[[id number]] Glucose [Mass/volume] in Serum or Plasma [2345-7] 01/30/2024 09:07 AM 217 mg/dL N Blood chemistry[[id number]] Glucose [Mass/volume] in Serum or Plasma [2345-7] 01/30/2024 08:58 AM 177 mg/dL N Blood chemistry[[id number]] Glucose [Mass/volume] in Serum or Plasma [2345-7] 01/29/2024 05:48 PM 247 mg/dL N Blood chemistry[[id number]] Glucose [Mass/volume] in Serum or Plasma [2345-7] 01/29/2024 10:22 AM 141 mg/dL N Blood chemistry[[id number]] Glucose [Mass/volume] in Serum or Plasma [2345-7] 01/29/2024 09:45 AM 122 mg/dL N Blood chemistry[[id number]] Glucose [Mass/volume] in Serum or Plasma [2345-7] 01/28/2024 05:28 PM 171 mg/dL N COVID-19 Test Viral Antigen null flavor [null] 01/28/2024 05:00 PM See note NEG COVID-19 Test Viral Antigen Blood chemistry[[id number]] Glucose [Mass/volume] in Serum or Plasma [2345-7] 01/28/2024 09:49 AM 183 mg/dL N Blood chemistry[[id number]] Glucose [Mass/volume] in Serum or Plasma [2345-7] 01/28/2024 09:25 AM 198 mg/dL N Blood chemistry[[id number]] Glucose [Mass/volume] in Serum or Plasma [2345-7] 01/27/2024 04:35 PM 224 mg/dL N Blood chemistry[[id number]] Glucose [Mass/volume] in Serum or Plasma [2345-7] 01/27/2024 09:34 AM 164 mg/dL N Blood chemistry[[id number]] Glucose [Mass/volume] in Serum or Plasma [2345-7] 01/27/2024 08:14 AM 139 mg/dL N Blood chemistry[[id number]] Glucose [Mass/volume] in Serum or Plasma [2345-7] 01/26/2024 04:20 PM 241 mg/dL N Blood chemistry[[id number]] Glucose [Mass/volume] in Serum or Plasma [2345-7] 01/26/2024 10:08 AM 183 mg/dL N Blood chemistry[[id number]] Glucose [Mass/volume] in Serum or Plasma [2345-7] 01/26/2024 09:37 AM 151 mg/dL N Blood chemistry[[id number]] Glucose [Mass/volume] in Serum or Plasma [2345-7] 01/25/2024 05:11 PM 209 mg/dL N Blood chemistry[[id number]] Glucose [Mass/volume] in Serum or Plasma [2345-7] 01/25/2024 11:11 AM 191 mg/dL N Blood chemistry[[id number]] Glucose [Mass/volume] in Serum or Plasma [2345-7] 01/25/2024 09:26 AM 148 mg/dL N Blood chemistry[[id number]] Glucose [Mass/volume] in Serum or Plasma [2345-7] 01/24/2024 05:56 PM 173 mg/dL N Blood chemistry[[id number]] Glucose [Mass/volume] in Serum or Plasma [2345-7] 01/24/2024 09:57 AM 200 mg/dL N Blood chemistry[[id number]] Glucose [Mass/volume] in Serum or Plasma [2345-7] 01/24/2024 09:19 AM 235 mg/dL N Blood chemistry[[id number]] Glucose [Mass/volume] in Serum or Plasma [2345-7] 01/23/2024 04:03 PM 260 mg/dL N Blood chemistry[[id number]] Glucose [Mass/volume] in Serum or Plasma [2345-7] 01/23/2024 09:39 AM 161 mg/dL N Blood chemistry[[id number]] Glucose [Mass/volume] in Serum or Plasma [2345-7] 01/22/2024 04:29 PM 320 mg/dL N Blood chemistry[[id number]] Glucose [Mass/volume] in Serum or Plasma [2345-7] 01/22/2024 09:57 AM 165 mg/dL N Blood chemistry[[id number]] Glucose [Mass/volume] in Serum or Plasma [2345-7] 01/22/2024 09:01 AM 157 mg/dL N COVID-19 Test Viral Antigen null flavor [null] 01/21/2024 05:00 PM See note NEG COVID-19 Test Viral Antigen Blood chemistry[[id number]] Glucose [Mass/volume] in Serum or Plasma [2345-7] 01/21/2024 10:33 AM 180 mg/dL N Blood chemistry[[id number]] Glucose [Mass/volume] in Serum or Plasma [2345-7] 01/21/2024 09:32 AM 153 mg/dL N Blood chemistry[[id number]] Glucose [Mass/volume] in Serum or Plasma [2345-7] 01/21/2024 08:25 AM 165 mg/dL N Blood chemistry[[id number]] Glucose [Mass/volume] in Serum or Plasma [2345-7] 01/20/2024 05:06 PM 245 mg/dL N Blood chemistry[[id number]] Glucose [Mass/volume] in Serum or Plasma [2345-7] 01/20/2024 11:08 AM 122 mg/dL N Blood chemistry[[id number]] Glucose [Mass/volume] in Serum or Plasma [2345-7] 01/19/2024 05:44 PM 205 mg/dL N Blood chemistry[[id number]] Glucose [Mass/volume] in Serum or Plasma [2345-7] 01/19/2024 09:26 AM 92 mg/dL N Blood chemistry[[id number]] Glucose [Mass/volume] in Serum or Plasma [2345-7] 01/18/2024 04:49 PM 122 mg/dL N Blood chemistry[[id number]] Glucose [Mass/volume] in Serum or Plasma [2345-7] 01/18/2024 10:23 AM 221 mg/dL N Blood chemistry[[id number]] Glucose [Mass/volume] in Serum or Plasma [2345-7] 01/18/2024 09:01 AM 183 mg/dL N Blood chemistry[[id number]] Glucose [Mass/volume] in Serum or Plasma [2345-7] 01/17/2024 04:58 PM 239 mg/dL N Blood chemistry[[id number]] Glucose [Mass/volume] in Serum or Plasma [2345-7] 01/17/2024 10:08 AM 103 mg/dL N Blood chemistry[[id number]] Glucose [Mass/volume] in Serum or Plasma [2345-7] 01/17/2024 09:00 AM 151 mg/dL N Blood chemistry[[id number]] Glucose [Mass/volume] in Serum or Plasma [2345-7] 01/16/2024 05:19 PM 199 mg/dL N Blood chemistry[[id number]] Glucose [Mass/volume] in Serum or Plasma [2345-7] 01/16/2024 09:22 AM 150 mg/dL N Blood chemistry[[id number]] Glucose [Mass/volume] in Serum or Plasma [2345-7] 01/16/2024 09:12 AM 127 mg/dL N Blood chemistry[[id number]] Glucose [Mass/volume] in Serum or Plasma [2345-7] 01/15/2024 04:32 PM 177 mg/dL N Blood chemistry[[id number]] Glucose [Mass/volume] in Serum or Plasma [2345-7] 01/15/2024 10:03 AM 147 mg/dL N COVID-19 Test Viral Antigen null flavor [null] 01/14/2024 05:00 PM See note NEG COVID-19 Test Viral Antigen Blood chemistry[[id number]] Glucose [Mass/volume] in Serum or Plasma [2345-7] 01/14/2024 04:59 PM 185 mg/dL N Blood chemistry[[id number]] Glucose [Mass/volume] in Serum or Plasma [2345-7] 01/14/2024 09:50 AM 236 mg/dL N Blood chemistry[[id number]] Glucose [Mass/volume] in Serum or Plasma [2345-7] 01/14/2024 09:35 AM 197 mg/dL N Blood chemistry[[id number]] Glucose [Mass/volume] in Serum or Plasma [2345-7] 01/13/2024 04:09 PM 222 mg/dL N Blood chemistry[[id number]] Glucose [Mass/volume] in Serum or Plasma [2345-7] 01/13/2024 10:01 AM 202 mg/dL N Blood chemistry[[id number]] Glucose [Mass/volume] in Serum or Plasma [2345-7] 01/13/2024 09:35 AM 170 mg/dL N Blood chemistry[[id number]] Glucose [Mass/volume] in Serum or Plasma [2345-7] 01/12/2024 11:00 AM 171 mg/dL N Blood chemistry[[id number]] Glucose [Mass/volume] in Serum or Plasma [2345-7] 01/12/2024 09:56 AM 226 mg/dL N Blood chemistry[[id number]] Glucose [Mass/volume] in Serum or Plasma [2345-7] 01/12/2024 06:56 AM 239 mg/dL N Blood chemistry[[id number]] Glucose [Mass/volume] in Serum or Plasma [2345-7] 01/11/2024 05:23 PM 157 mg/dL N Blood chemistry[[id number]] Glucose [Mass/volume] in Serum or Plasma [2345-7] 01/11/2024 09:59 AM 172 mg/dL N Blood chemistry[[id number]] Glucose [Mass/volume] in Serum or Plasma [2345-7] 01/11/2024 09:40 AM 178 mg/dL N Blood chemistry[[id number]] Glucose [Mass/volume] in Serum or Plasma [2345-7] 01/10/2024 04:43 PM 224 mg/dL N Blood chemistry[[id number]] Glucose [Mass/volume] in Serum or Plasma [2345-7] 01/10/2024 10:36 AM 201 mg/dL N Blood chemistry[[id number]] Glucose [Mass/volume] in Serum or Plasma [2345-7] 01/10/2024 09:11 AM 179 mg/dL N Allergies, adverse reactions, alerts No known allergies and adverse reactions Immunizations Vaccine Route Date Status RSV Vaccine Unassigned Route of Administration 2024 Completed Influenza Vaccine Unassigned Route of Administration 0 01/21/2025 Completed COVID-19 Vaccine Unassigned Route of Administration Completed Medications Medication Instructions Route Dosage Frequency [...] oral 1.0 12.0 h 2024 Active Afluria 2430-8715 (3yr up)(PF) (flu vac [id number] 36mos up(pf)) 45 mcg (15 mcg x 3)/0.5 m syringe (Afluria (3yr up)(PF) (flu vac [id number] 36mos up(pf))) 0.5ml, intramuscular , Once - One Time intramusc ular 1.0 01/21 Active tramadol 50 mg tablet (tramadol) 1-2 tab t= 50mg-100mg, oral, Every 8 Hours - PRN, clinical indication: pain oral 1.0 8.0 h 01/21 Active oxycodone 5 mg tablet (oxycodone) 1, oral, Every 6 Hours - PRN, pain exempt R52 oral 1.0 6.0 h 02/11 Active oxycodone 5 mg tablet (oxycodone) 1, oral, Every 6 Hours - PRN, pain exempt R52 oral 1.0 6.0 h 2024 Active Vital Signs Date Vital Result Comment 05/28/2024 06:24 PM Body Weight (52507-9) 220.4 [lb_av ] Body Mass Index (18660-0) 34.52 kg/m2 05/28/2024 04:50 PM Temperature (8310-5) 98.3 [degF] Oxygen Saturation (89736-2) 98 % Respiratory Rate (9279-1) 18 /min Heart Rate (8867-4) 51 /min Blood Pressure Systolic (8480-6) 94 mm[Hg] Blood Pressure Diastolic (8462-4) 56 mm[Hg] 05/31/2024 12:20 PM Body Weight (79411-9) 224.8 [lb_av ] Body Mass Index (45090-3) 35.2 kg/m2 06/02/2024 05:30 PM Body Weight (26267-6) 222.4 [lb_av ] Body Mass Index (71304-1) 34.83 kg/m2 06/04/2024 05:20 PM Body Weight (48652-1) 240 [lb_av] Body Mass Index (80434-8) 37.59 kg/m2 06/04/2024 05:19 PM Temperature (8310-5) 98 [degF] Oxygen Saturation (93960-7) 97 % Respiratory Rate (9279-1) 17 /min Heart Rate (8867-4) 59 /min Blood Pressure Systolic (8480-6) 96 mm[Hg] Blood Pressure Diastolic (8462-4) 58 mm[Hg] 06/04/2024 12:41 PM Body Weight (06776-5) 240 [lb_av] Body Mass Index (73022-5) 37.59 kg/m2 06/05/2024 03:27 PM Body Weight (30591-0) 234.6 [lb_av ] Body Mass Index (47523-8) 36.74 kg/m2 06/11/2024 06:01 PM Body Weight (60939-8) 240.1 [lb_av ] Body Mass Index (59776-8) 37.6 kg/m2 06/11/2024 04:59 PM Temperature (8310-5) 97 [degF] Oxygen Saturation (60687-6) 96 % Respiratory Rate (9279-1) 18 /min Heart Rate (8867-4) 77 /min Blood Pressure Systolic (8480-6) 148 mm[Hg] Blood Pressure Diastolic (8462-4) 72 mm[Hg] 06/11/2024 01:34 PM Body Weight (38050-7) 239.8 [lb_av ] Body Mass Index (93769-0) 37.55 kg/m2 06/12/2024 07:40 PM Temperature (8310-5) 98.7 [degF] Oxygen Saturation (14228-9) 93 % Respiratory Rate (9279-1) 19 /min Heart Rate (8867-4) 72 /min Blood Pressure Systolic (8480-6) 142 mm[Hg] Blood Pressure Diastolic (8462-4) 68 mm[Hg] 06/12/2024 09:45 AM Temperature (8310-5) 98.9 [degF] Oxygen Saturation (69090-0) 95 % Respiratory Rate (9279-1) 16 /min Heart Rate (8867-4) 78 /min Blood Pressure Systolic (8480-6) 118 mm[Hg] Blood Pressure Diastolic (8462-4) 50 mm[Hg] 06/13/2024 02:33 PM Temperature (8310-5) 98.4 [degF] Oxygen Saturation (57808-0) 92 % Respiratory Rate (9279-1) 18 /min Heart Rate (8867-4) 68 /min Blood Pressure Systolic (8480-6) 107 mm[Hg] Blood Pressure Diastolic (8462-4) 58 mm[Hg] 06/14/2024 10:12 AM Oxygen Saturation (65681-9) 98 % 06/14/2024 10:11 AM Temperature (8310-5) 98.2 [degF] Respiratory Rate (9279-1) 19 /min Heart Rate (8867-4) 72 /min Blood Pressure Systolic (8480-6) 118 mm[Hg] Blood Pressure Diastolic (8462-4) 64 mm[Hg] 06/15/2024 05:40 PM Temperature (8310-5) 98.6 [degF] Oxygen Saturation (66130-4) 97 % Respiratory Rate (9279-1) 18 /min Heart Rate (8867-4) 68 /min Blood Pressure Systolic (8480-6) 131 mm[Hg] Blood Pressure Diastolic (8462-4) 70 mm[Hg] 06/16/2024 12:39 PM Temperature (8310-5) 97.8 [degF] Oxygen Saturation (76598-4) 98 % Respiratory Rate (9279-1) 19 /min Heart Rate (8867-4) 67 /min Blood Pressure Systolic (8480-6) 98 mm[Hg] Blood Pressure Diastolic (8462-4) 58 mm[Hg] 06/18/2024 09:27 AM Temperature (8310-5) 98.6 [degF] Oxygen Saturation (68744-7) 97 % Respiratory Rate (9279-1) 16 /min Heart Rate (8867-4) 71 /min Blood Pressure Systolic (8480-6) 154 mm[Hg] Blood Pressure Diastolic (8462-4) 93 mm[Hg] 06/19/2024 02:50 PM Blood Pressure Systolic (8480-6) 1 08 mm[Hg] Blood Pressure Diastolic (8462-4) 55 mm[Hg] 06/19/2024 12:15 PM Temperature (8310-5) 98 [degF] Oxygen Saturation (47981-1) 91 % Respiratory Rate (9279-1) 18 /min Heart Rate (8867-4) 68 /min 06/20/2024 05:04 PM Temperature (8310-5) 98.9 [degF] Oxygen Saturation (31564-2) 95 % Respiratory Rate (9279-1) 16 /min Heart Rate (8867-4) 78 /min Blood Pressure Systolic (8480-6) 118 mm[Hg] Blood Pressure Diastolic (8462-4) 50 mm[Hg] 06/21/2024 12:37 PM Temperature (8310-5) 97.9 [degF] Oxygen Saturation (67832-5) 90 % Respiratory Rate (9279-1) 14 /min Heart Rate (8867-4) 67 /min Blood Pressure Systolic (8480-6) 103 mm[Hg] Blood Pressure Diastolic (8462-4) 59 mm[Hg] 06/22/2024 02:45 PM Temperature (8310-5) 97.6 [degF] Oxygen Saturation (90461-4) 91 % Respiratory Rate (9279-1) 18 /min Heart Rate (8867-4) 74 /min Blood Pressure Systolic (8480-6) 132 mm[Hg] Blood Pressure Diastolic (8462-4) 66 mm[Hg] 06/23/2024 04:22 PM Temperature (8310-5) 98.3 [degF] Oxygen Saturation (19935-4) 94 % Respiratory Rate (9279-1) 17 /min Heart Rate (8867-4) 69 /min Blood Pressure Systolic (8480-6) 119 mm[Hg] Blood Pressure Diastolic (8462-4) 60 mm[Hg] 06/24/2024 09:22 AM Temperature (8310-5) 98.9 [degF] Oxygen Saturation (33846-6) 99 % Respiratory Rate (9279-1) 19 /min Heart Rate (8867-4) 87 /min Blood Pressure Systolic (8480-6) 137 mm[Hg] Blood Pressure Diastolic (8462-4) 76 mm[Hg] 06/25/2024 05:02 PM Temperature (8310-5) 98.3 [degF] Oxygen Saturation (29763-3) 96 % Respiratory Rate (9279-1) 18 /min Heart Rate (8867-4) 74 /min Blood Pressure Systolic (8480-6) 134 mm[Hg] Blood Pressure Diastolic (8462-4) 76 mm[Hg] 06/26/2024 01:41 PM Temperature (8310-5) 98 [degF] Oxygen Saturation (16156-0) 97 % Respiratory Rate (9279-1) 16 /min Heart Rate (8867-4) 72 /min Blood Pressure Systolic (8480-6) 140 mm[Hg] Blood Pressure Diastolic (8462-4) 77 mm[Hg] 06/26/2024 08:58 AM Body Weight (57180-1) 237.3 [lb_av ] Body Mass Index (45034-4) 37.16 kg/m2 06/27/2024 04:47 PM Body Weight (65826-8) 238.8 [lb_av ] Body Mass Index (58621-4) 37.4 kg/m2 06/27/2024 03:42 PM Temperature (8310-5) 97.5 [degF] Oxygen Saturation (49342-8) 95 % Respiratory Rate (9279-1) 18 /min Heart Rate (8867-4) 77 /min Blood Pressure Systolic (8480-6) 131 mm[Hg] Blood Pressure Diastolic (8462-4) 70 mm[Hg] 06/28/2024 10:51 AM Body Weight (71380-1) 231.2 [lb_av ] Body Mass Index (47617-6) 36.21 kg/m2 06/28/2024 09:44 AM Temperature (8310-5) 98.6 [degF] Oxygen Saturation (64817-3) 91 % Respiratory Rate (9279-1) 20 /min Heart Rate (8867-4) 77 /min Blood Pressure Systolic (8480-6) 149 mm[Hg] Blood Pressure Diastolic (8462-4) 81 mm[Hg] 06/29/2024 08:59 AM Oxygen Saturation (44007-7) 92 % 06/29/2024 08:58 AM Temperature (8310-5) 98 [degF] Respiratory Rate (9279-1) 16 /min Heart Rate (8867-4) 83 /min Blood Pressure Systolic (8480-6) 138 mm[Hg] Blood Pressure Diastolic (8462-4) 63 mm[Hg] 06/30/2024 07:27 PM Oxygen Saturation (16745-3) 98 % 06/30/2024 12:13 PM Temperature (8310-5) 97.5 [degF] Oxygen Saturation (04375-1) 94 % Respiratory Rate (9279-1) 19 /min Heart Rate (8867-4) 75 /min Blood Pressure Systolic (8480-6) 154 mm[Hg] Blood Pressure Diastolic (8462-4) 80 mm[Hg] 06/30/2024 11:41 AM Body Weight (92054-0) 236.06 [lb_a v] Body Mass Index (04435-5) 36.97 kg/m2 07/01/2024 08:57 AM Temperature (8310-5) 98.2 [degF] Oxygen Saturation (54505-2) 97 % Respiratory Rate (9279-1) 20 /min Heart Rate (8867-4) 77 /min Blood Pressure Systolic (8480-6) 136 mm[Hg] Blood Pressure Diastolic (8462-4) 66 mm[Hg] 07/02/2024 01:22 PM Body Weight (14525-1) 233.8 [lb_av ] Body Mass Index (51254-0) 36.61 kg/m2 07/02/2024 01:19 PM Temperature (8310-5) 98.9 [degF] Oxygen Saturation (18856-6) 96 % Respiratory Rate (9279-1) 19 /min Heart Rate (8867-4) 81 /min Blood Pressure Systolic (8480-6) 168 mm[Hg] Blood Pressure Diastolic (8462-4) 73 mm[Hg] 07/01/2024 08:43 PM Oxygen Saturation (85398-0) 95 % 07/03/2024 12:17 PM Temperature (8310-5) 97.8 [degF] Oxygen Saturation (96822-9) 93 % Respiratory Rate (9279-1) 19 /min Heart Rate (8867-4) 72 /min Blood Pressure Systolic (8480-6) 115 mm[Hg] Blood Pressure Diastolic (8462-4) 72 mm[Hg] 07/02/2024 07:50 PM Oxygen Saturation (59339-1) 98 % 07/04/2024 01:19 PM Oxygen Saturation (50659-7) 95 % 07/04/2024 01:18 PM Temperature (8310-5) 98.1 [degF] Oxygen Saturation (19901-8) 95 % Respiratory Rate (9279-1) 19 /min Heart Rate (8867-4) 84 /min Blood Pressure Systolic (8480-6) 107 mm[Hg] Blood Pressure Diastolic (8462-4) 68 mm[Hg] 07/03/2024 09:01 PM Oxygen Saturation (48497-4) 95 % 07/04/2024 07:42 PM Oxygen Saturation (94223-8) 97 % 07/05/2024 07:39 PM Oxygen Saturation (92049-8) 95 % 07/05/2024 11:56 AM Oxygen Saturation (16026-7) 98 % 07/05/2024 11:55 AM Temperature (8310-5) 98.6 [degF] Respiratory Rate (9279-1) 18 /min Heart Rate (8867-4) 74 /min Blood Pressure Systolic (8480-6) 112 mm[Hg] Blood Pressure Diastolic (8462-4) 66 mm[Hg] 07/06/2024 10:03 AM Oxygen Saturation (67844-8) 94 % 07/06/2024 10:02 AM Temperature (8310-5) 98.6 [degF] Oxygen Saturation (04941-8) 94 % Respiratory Rate (9279-1) 19 /min Heart Rate (8867-4) 84 /min Blood Pressure Systolic (8480-6) 143 mm[Hg] Blood Pressure Diastolic (8462-4) 61 mm[Hg] 07/06/2024 08:51 PM Oxygen Saturation (41972-2) 97 % 07/07/2024 09:15 PM Oxygen Saturation (98910-1) 95 % 07/07/2024 12:53 PM Temperature (8310-5) 98.2 [degF] Oxygen Saturation (16414-4) 94 % Respiratory Rate (9279-1) 18 /min Heart Rate (8867-4) 79 /min Blood Pressure Systolic (8480-6) 132 mm[Hg] Blood Pressure Diastolic (8462-4) 65 mm[Hg] 07/08/2024 09:21 AM Temperature (8310-5) 97.1 [degF] Oxygen Saturation (27727-0) 98 % Respiratory Rate (9279-1) 18 /min Heart Rate (8867-4) 71 /min Blood Pressure Systolic (8480-6) 117 mm[Hg] Blood Pressure Diastolic (8462-4) 61 mm[Hg] 07/08/2024 07:20 PM Oxygen Saturation (52156-7) 94 % 07/09/2024 11:45 AM Oxygen Saturation (26132-4) 96 % 07/09/2024 10:24 AM Body Weight (99256-1) 226.4 [lb_av ] Body Mass Index (12190-8) 35.46 kg/m2 07/09/2024 11:47 AM Temperature (8310-5) 97.1 [degF] Respiratory Rate (9279-1) 21 /min Heart Rate (8867-4) 66 /min Blood Pressure Systolic (8480-6) 132 mm[Hg] Blood Pressure Diastolic (8462-4) 65 mm[Hg] 07/09/2024 06:42 PM Oxygen Saturation (88634-8) 96 % 07/10/2024 12:35 PM Oxygen Saturation (30775-0) 98 % 07/10/2024 12:34 PM Oxygen Saturation (45283-2) 98 % Blood Pressure Systolic (8480-6) 147 mm[Hg] Blood Pressure Diastolic (8462-4) 82 mm[Hg] 07/10/2024 12:32 PM Temperature (8310-5) 98.3 [degF] Respiratory Rate (9279-1) 18 /min Heart Rate (8867-4) 65 /min 07/10/2024 10:32 PM Oxygen Saturation (78644-6) 96 % 07/11/2024 04:03 PM Temperature (8310-5) 97.7 [degF] Oxygen Saturation (28482-0) 96 % Respiratory Rate (9279-1) 16 /min Heart Rate (8867-4) 90 /min Blood Pressure Systolic (8480-6) 150 mm[Hg] Blood Pressure Diastolic (8462-4) 84 mm[Hg] 07/11/2024 08:02 PM Oxygen Saturation (18210-9) 95 % 07/12/2024 09:12 AM Temperature (8310-5) 98.9 [degF] Oxygen Saturation (09532-2) 99 % Respiratory Rate (9279-1) 16 /min Heart Rate (8867-4) 63 /min Blood Pressure Systolic (8480-6) 132 mm[Hg] Blood Pressure Diastolic (8462-4) 72 mm[Hg] 07/12/2024 08:33 PM Oxygen Saturation (18109-8) 97 % 07/13/2024 01:07 PM Temperature (8310-5) 97 [degF] Oxygen Saturation (63399-3) 96 % Respiratory Rate (9279-1) 18 /min Heart Rate (8867-4) 70 /min Blood Pressure Systolic (8480-6) 144 mm[Hg] Blood Pressure Diastolic (8462-4) 86 mm[Hg] 07/13/2024 09:47 PM Oxygen Saturation (67852-1) 97 % 07/14/2024 02:31 PM Temperature (8310-5) 98 [degF] Oxygen Saturation (06540-1) 92 % Respiratory Rate (9279-1) 19 /min Heart Rate (8867-4) 63 /min Blood Pressure Systolic (8480-6) 123 mm[Hg] Blood Pressure Diastolic (8462-4) 68 mm[Hg] 07/14/2024 07:02 PM Oxygen Saturation (85338-2) 94 % 07/15/2024 07:29 AM Temperature (8310-5) 97.8 [degF] Oxygen Saturation (31683-1) 96 % Respiratory Rate (9279-1) 18 /min Heart Rate (8867-4) 72 /min Blood Pressure Systolic (8480-6) 137 mm[Hg] Blood Pressure Diastolic (8462-4) 64 mm[Hg] 07/15/2024 06:54 PM Oxygen Saturation (12622-2) 94 % 07/16/2024 01:37 PM Oxygen Saturation (38950-7) 97 % 07/16/2024 01:36 PM Temperature (8310-5) 97.4 [degF] Oxygen Saturation (46763-5) 97 % Respiratory Rate (9279-1) 20 /min Heart Rate (8867-4) 89 /min Blood Pressure Systolic (8480-6) 135 mm[Hg] Blood Pressure Diastolic (8462-4) 70 mm[Hg] 07/16/2024 06:38 PM Oxygen Saturation (31526-5) 99 % 07/17/2024 09:47 AM Body Weight (02586-3) 221.2 [lb_av ] Body Mass Index (11353-6) 34.64 kg/m2 07/17/2024 09:14 AM Temperature (8310-5) 98.2 [degF] Oxygen Saturation (41813-4) 97 % Respiratory Rate (9279-1) 16 /min Heart Rate (8867-4) 60 /min Blood Pressure Systolic (8480-6) 131 mm[Hg] Blood Pressure Diastolic (8462-4) 68 mm[Hg] 07/17/2024 06:52 PM Oxygen Saturation (31686-3) 97 % 07/18/2024 03:34 PM Temperature (8310-5) 97.6 [degF] Oxygen Saturation (18482-6) 97 % Respiratory Rate (9279-1) 18 /min Heart Rate (8867-4) 74 /min Blood Pressure Systolic (8480-6) 169 mm[Hg] Blood Pressure Diastolic (8462-4) 81 mm[Hg] 07/18/2024 08:19 PM Oxygen Saturation (83779-4) 97 % 07/19/2024 07:04 AM Temperature (8310-5) 97 [degF] Oxygen Saturation (72621-2) 95 % Respiratory Rate (9279-1) 17 /min Heart Rate (8867-4) 53 /min Blood Pressure Systolic (8480-6) 145 mm[Hg] Blood Pressure Diastolic (8462-4) 72 mm[Hg] 07/19/2024 09:41 PM Oxygen Saturation (28012-0) 98 % 07/20/2024 08:25 AM Temperature (8310-5) 96.7 [degF] Oxygen Saturation (20187-7) 97 % Respiratory Rate (9279-1) 20 /min Heart Rate (8867-4) 51 /min Blood Pressure Systolic (8480-6) 140 mm[Hg] Blood Pressure Diastolic (8462-4) 86 mm[Hg] 07/20/2024 08:16 PM Oxygen Saturation (06955-5) 98 % 07/21/2024 11:59 AM Temperature (8310-5) 97.4 [degF] Oxygen Saturation (47599-2) 95 % Respiratory Rate (9279-1) 19 /min Heart Rate (8867-4) 71 /min Blood Pressure Systolic (8480-6) 129 mm[Hg] Blood Pressure Diastolic (8462-4) 79 mm[Hg] 07/21/2024 06:33 PM Oxygen Saturation (30464-2) 98 % 07/22/2024 01:23 PM Body Weight (97262-6) 222.2 [lb_av ] Body Mass Index (84929-9) 34.8 kg/m2 07/22/2024 11:11 AM Temperature (8310-5) 97.3 [degF] Oxygen Saturation (44793-4) 96 % Respiratory Rate (9279-1) 19 /min Heart Rate (8867-4) 70 /min Blood Pressure Systolic (8480-6) 145 mm[Hg] Blood Pressure Diastolic (8462-4) 68 mm[Hg] 07/22/2024 08:50 PM Oxygen Saturation (57538-6) 96 % 07/23/2024 11:04 AM Temperature (8310-5) 96.9 [degF] Oxygen Saturation (42994-1) 96 % Respiratory Rate (9279-1) 20 /min Heart Rate (8867-4) 65 /min Blood Pressure Systolic (8480-6) 133 mm[Hg] Blood Pressure Diastolic (8462-4) 73 mm[Hg] 07/23/2024 07:34 PM Oxygen Saturation (28776-2) 97 % 07/24/2024 11:43 AM Temperature (8310-5) 97.8 [degF] Oxygen Saturation (73053-9) 98 % Respiratory Rate (9279-1) 16 /min Heart Rate (8867-4) 52 /min Blood Pressure Systolic (8480-6) 138 mm[Hg] Blood Pressure Diastolic (8462-4) 70 mm[Hg] 07/25/2024 12:10 AM Oxygen Saturation (29698-1) 98 % 07/25/2024 01:42 PM Temperature (8310-5) 98.6 [degF] Oxygen Saturation (42124-3) 96 % Respiratory Rate (9279-1) 17 /min Heart Rate (8867-4) 67 /min Blood Pressure Systolic (8480-6) 126 mm[Hg] Blood Pressure Diastolic (8462-4) 72 mm[Hg] 07/25/2024 10:46 PM Oxygen Saturation (27603-2) 92 % 07/26/2024 08:34 AM Temperature (8310-5) 97.6 [degF] Oxygen Saturation (72325-0) 96 % Respiratory Rate (9279-1) 19 /min Heart Rate (8867-4) 62 /min Blood Pressure Systolic (8480-6) 121 mm[Hg] Blood Pressure Diastolic (8462-4) 64 mm[Hg] 07/26/2024 08:48 PM Oxygen Saturation (29543-7) 97 % 07/27/2024 12:52 PM Temperature (8310-5) 97.8 [degF] Respiratory Rate (9279-1) 20 /min Heart Rate (8867-4) 63 /min Blood Pressure Systolic (8480-6) 122 mm[Hg] Blood Pressure Diastolic (8462-4) 77 mm[Hg] 07/27/2024 10:42 AM Oxygen Saturation (40475-5) 95 % 07/28/2024 09:22 AM Body Weight (77519-9) 218 [lb_av] Body Mass Index (41814-1) 34.14 kg/m2 07/28/2024 01:54 PM Temperature (8310-5) 98 [degF] Oxygen Saturation (04621-5) 95 % Respiratory Rate (9279-1) 17 /min Heart Rate (8867-4) 70 /min Blood Pressure Systolic (8480-6) 119 mm[Hg] Blood Pressure Diastolic (8462-4) 65 mm[Hg] 07/28/2024 08:12 PM Oxygen Saturation (87168-7) 90 % 07/29/2024 09:27 AM Temperature (8310-5) 97.3 [degF] Oxygen Saturation (69602-2) 96 % Respiratory Rate (9279-1) 19 /min Heart Rate (8867-4) 61 /min Blood Pressure Systolic (8480-6) 145 mm[Hg] Blood Pressure Diastolic (8462-4) 62 mm[Hg] 07/29/2024 11:05 AM Body Weight (60704-4) 218 [lb_av] Body Mass Index (69913-1) 34.14 kg/m2 07/29/2024 09:36 PM Oxygen Saturation (28960-0) 97 % 07/30/2024 12:54 PM Temperature (8310-5) 97.3 [degF] Oxygen Saturation (31738-4) 97 % Respiratory Rate (9279-1) 19 /min Heart Rate (8867-4) 66 /min Blood Pressure Systolic (8480-6) 129 mm[Hg] Blood Pressure Diastolic (8462-4) 62 mm[Hg] 07/30/2024 07:30 PM Oxygen Saturation (02326-1) 92 % 07/31/2024 04:06 PM Body Weight (38810-7) 206.8 [lb_av ] Body Mass Index (12166-3) 32.39 kg/m2 07/31/2024 12:15 PM Temperature (8310-5) 97.8 [degF] Oxygen Saturation (74403-1) 98 % Respiratory Rate (9279-1) 16 /min Heart Rate (8867-4) 60 /min Blood Pressure Systolic (8480-6) 132 mm[Hg] Blood Pressure Diastolic (8462-4) 68 mm[Hg] 08/01/2024 08:50 PM Oxygen Saturation (87031-9) 95 % 08/01/2024 08:49 PM Temperature (8310-5) 97 [degF] Oxygen Saturation (40422-8) 97 % Respiratory Rate (9279-1) 18 /min Heart Rate (8867-4) 78 /min Blood Pressure Systolic (8480-6) 124 mm[Hg] Blood Pressure Diastolic (8462-4) 78 mm[Hg] 08/02/2024 11:57 AM Body Weight (52274-8) 205.6 [lb_av ] Body Mass Index (22560-6) 32.2 kg/m2 08/02/2024 09:50 AM Temperature (8310-5) 97.7 [degF] Oxygen Saturation (34792-2) 95 % Respiratory Rate (9279-1) 20 /min Heart Rate (8867-4) 74 /min Blood Pressure Systolic (8480-6) 120 mm[Hg] Blood Pressure Diastolic (8462-4) 65 mm[Hg] 08/02/2024 11:33 PM Oxygen Saturation (56734-2) 95 % 08/03/2024 02:41 PM Temperature (8310-5) 97.8 [degF] Oxygen Saturation (87650-0) 96 % Respiratory Rate (9279-1) 20 /min Heart Rate (8867-4) 75 /min Blood Pressure Systolic (8480-6) 130 mm[Hg] Blood Pressure Diastolic (8462-4) 62 mm[Hg] 08/03/2024 07:37 PM Oxygen Saturation (00446-9) 98 % 08/04/2024 11:30 AM Temperature (8310-5) 97.9 [degF] Respiratory Rate (9279-1) 21 /min Heart Rate (8867-4) 80 /min Blood Pressure Systolic (8480-6) 122 mm[Hg] Blood Pressure Diastolic (8462-4) 62 mm[Hg] 08/04/2024 11:28 AM Oxygen Saturation (21251-0) 96 % 08/04/2024 08:31 PM Oxygen Saturation (59290-5) 90 % 08/05/2024 08:54 AM Temperature (8310-5) 97.3 [degF] Oxygen Saturation (32931-2) 96 % Respiratory Rate (9279-1) 17 /min Heart Rate (8867-4) 8 /min Blood Pressure Systolic (8480-6) 100 mm[Hg] Blood Pressure Diastolic (8462-4) 50 mm[Hg] 08/05/2024 10:45 AM Body Weight (10150-4) 206.8 [lb_av ] Body Mass Index (74123-0) 32.39 kg/m2 08/05/2024 07:00 PM Oxygen Saturation (03038-0) 94 % 08/06/2024 04:51 PM Temperature (8310-5) 98 [degF] Oxygen Saturation (63586-5) 96 % Respiratory Rate (9279-1) 18 /min Heart Rate (8867-4) 75 /min Blood Pressure Systolic (8480-6) 110 mm[Hg] Blood Pressure Diastolic (8462-4) 62 mm[Hg] 08/06/2024 06:34 PM Oxygen Saturation (16290-0) 97 % 08/07/2024 03:46 PM Temperature (8310-5) 97.3 [degF] Oxygen Saturation (22103-1) 95 % Respiratory Rate (9279-1) 16 /min Heart Rate (8867-4) 55 /min Blood Pressure Systolic (8480-6) 124 mm[Hg] Blood Pressure Diastolic (8462-4) 62 mm[Hg] 08/07/2024 07:17 PM Oxygen Saturation (90736-8) 96 % 08/08/2024 04:52 PM Temperature (8310-5) 97.9 [degF] Oxygen Saturation (36130-6) 95 % Respiratory Rate (9279-1) 20 /min Heart Rate (8867-4) 61 /min Blood Pressure Systolic (8480-6) 131 mm[Hg] Blood Pressure Diastolic (8462-4) 71 mm[Hg] 08/08/2024 02:39 PM Oxygen Saturation (60446-1) 95 % 08/08/2024 11:47 PM Oxygen Saturation (70175-5) 98 % 08/09/2024 10:01 AM Temperature (8310-5) 97.8 [degF] Oxygen Saturation (60450-9) 99 % Respiratory Rate (9279-1) 19 /min Heart Rate (8867-4) 62 /min Blood Pressure Systolic (8480-6) 138 mm[Hg] Blood Pressure Diastolic (8462-4) 72 mm[Hg] 08/09/2024 10:17 PM Oxygen Saturation (51625-2) 95 % 08/10/2024 10:13 AM Temperature (8310-5) 98.2 [degF] Oxygen Saturation (81947-3) 96 % Respiratory Rate (9279-1) 18 /min Heart Rate (8867-4) 52 /min Blood Pressure Systolic (8480-6) 161 mm[Hg] Blood Pressure Diastolic (8462-4) 65 mm[Hg] 08/10/2024 10:25 PM Oxygen Saturation (52350-0) 96 % 08/11/2024 06:00 PM Temperature (8310-5) 97.9 [degF] Oxygen Saturation (06931-6) 95 % Respiratory Rate (9279-1) 20 /min Heart Rate (8867-4) 71 /min Blood Pressure Systolic (8480-6) 154 mm[Hg] Blood Pressure Diastolic (8462-4) 81 mm[Hg] 08/11/2024 06:23 PM Oxygen Saturation (92284-2) 93 % 08/12/2024 09:14 AM Temperature (8310-5) 98.1 [degF] 08/12/2024 10:58 AM Body Weight (68582-1) 208 [lb_av] Body Mass Index (08666-1) 32.57 kg/m2 08/12/2024 03:55 PM Oxygen Saturation (15119-1) 95 % Respiratory Rate (9279-1) 18 /min Heart Rate (8867-4) 76 /min Blood Pressure Systolic (8480-6) 170 mm[Hg] Blood Pressure Diastolic (8462-4) 90 mm[Hg] 08/13/2024 08:50 AM Oxygen Saturation (75047-5) 98 % 08/13/2024 08:49 AM Temperature (8310-5) 99.1 [degF] Oxygen Saturation (02200-1) 98 % Respiratory Rate (9279-1) 20 /min Heart Rate (8867-4) 74 /min Blood Pressure Systolic (8480-6) 150 mm[Hg] Blood Pressure Diastolic (8462-4) 60 mm[Hg] 08/12/2024 09:13 PM Oxygen Saturation (42457-6) 98 % 08/13/2024 08:04 PM Oxygen Saturation (85787-0) 96 % 08/14/2024 05:44 PM Temperature (8310-5) 97.2 [degF] Oxygen Saturation (03523-6) 90 % Respiratory Rate (9279-1) 20 /min Heart Rate (8867-4) 63 /min Blood Pressure Systolic (8480-6) 167 mm[Hg] Blood Pressure Diastolic (8462-4) 66 mm[Hg] 08/14/2024 06:59 PM Oxygen Saturation (06828-8) 98 % 08/15/2024 03:38 PM Oxygen Saturation (51558-4) 98 % 08/15/2024 03:37 PM Temperature (8310-5) 97.8 [degF] Respiratory Rate (9279-1) 16 /min Heart Rate (8867-4) 84 /min Blood Pressure Systolic (8480-6) 170 mm[Hg] Blood Pressure Diastolic (8462-4) 79 mm[Hg] 08/15/2024 10:10 PM Oxygen Saturation (29625-9) 97 % 08/16/2024 12:57 PM Temperature (8310-5) 97.9 [degF] Oxygen Saturation (60603-5) 96 % Respiratory Rate (9279-1) 19 /min Heart Rate (8867-4) 81 /min Blood Pressure Systolic (8480-6) 118 mm[Hg] Blood Pressure Diastolic (8462-4) 72 mm[Hg] 08/16/2024 08:02 PM Oxygen Saturation (47181-3) 95 % 08/17/2024 10:33 AM Temperature (8310-5) 97.7 [degF] Respiratory Rate (9279-1) 18 /min Heart Rate (8867-4) 67 /min Blood Pressure Systolic (8480-6) 122 mm[Hg] Blood Pressure Diastolic (8462-4) 71 mm[Hg] 08/17/2024 10:34 AM Oxygen Saturation (54536-7) 98 % 08/17/2024 08:10 PM Oxygen Saturation (22930-2) 97 % 08/18/2024 04:56 PM Oxygen Saturation (14182-5) 96 % Respiratory Rate (9279-1) 18 /min Heart Rate (8867-4) 70 /min Blood Pressure Systolic (8480-6) 115 mm[Hg] Blood Pressure Diastolic (8462-4) 71 mm[Hg] 08/18/2024 07:47 PM Oxygen Saturation (57523-6) 96 % 08/19/2024 08:36 AM Temperature (8310-5) 97.7 [degF] Oxygen Saturation (27499-3) 95 % Respiratory Rate (9279-1) 16 /min Heart Rate (8867-4) 98 /min Blood Pressure Systolic (8480-6) 135 mm[Hg] Blood Pressure Diastolic (8462-4) 62 mm[Hg] 08/19/2024 07:29 PM Oxygen Saturation (06678-6) 93 % 08/18/2024 04:07 PM Body Weight (89700-1) 207.9 [lb_av ] Body Mass Index (39834-9) 32.56 kg/m2 08/20/2024 12:54 PM Temperature (8310-5) 96.8 [degF] Oxygen Saturation (63149-3) 93 % Respiratory Rate (9279-1) 18 /min Heart Rate (8867-4) 84 /min Blood Pressure Systolic (8480-6) 123 mm[Hg] Blood Pressure Diastolic (8462-4) 70 mm[Hg] 08/11/2024 04:06 PM Body Weight (12190-1) 208.1 [lb_av ] Body Mass Index (22754-0) 32.59 kg/m2 08/15/2024 04:06 PM Body Weight (94937-9) 206.8 [lb_av ] Body Mass Index (25382-7) 32.39 kg/m2 08/20/2024 07:04 PM Oxygen Saturation (84123-6) 98 % 08/21/2024 08:20 AM Temperature (8310-5) 97.8 [degF] Oxygen Saturation (16252-0) 99 % Respiratory Rate (9279-1) 16 /min Heart Rate (8867-4) 65 /min Blood Pressure Systolic (8480-6) 142 mm[Hg] Blood Pressure Diastolic (8462-4) 72 mm[Hg] 08/21/2024 12:12 PM Body Weight (78239-5) 209.4 [lb_av ] Body Mass Index (13723-1) 32.79 kg/m2 08/21/2024 06:29 PM Oxygen Saturation (45644-9) 93 % 08/22/2024 03:12 PM Temperature (8310-5) 98.8 [degF] Oxygen Saturation (49397-2) 97 % Respiratory Rate (9279-1) 17 /min Heart Rate (8867-4) 67 /min Blood Pressure Systolic (8480-6) 134 mm[Hg] Blood Pressure Diastolic (8462-4) 76 mm[Hg] 08/22/2024 07:04 PM Oxygen Saturation (69020-5) 99 % 08/23/2024 09:19 AM Temperature (8310-5) 97.9 [degF] Oxygen Saturation (31184-7) 98 % Respiratory Rate (9279-1) 19 /min Heart Rate (8867-4) 61 /min Blood Pressure Systolic (8480-6) 125 mm[Hg] Blood Pressure Diastolic (8462-4) 68 mm[Hg] 08/23/2024 07:19 PM Oxygen Saturation (23954-9) 98 % 08/24/2024 08:42 AM Temperature (8310-5) 97.8 [degF] Oxygen Saturation (94663-5) 96 % Respiratory Rate (9279-1) 18 /min Heart Rate (8867-4) 66 /min Blood Pressure Systolic (8480-6) 111 mm[Hg] Blood Pressure Diastolic (8462-4) 62 mm[Hg] 08/24/2024 08:43 AM Oxygen Saturation (99904-5) 96 % 08/24/2024 06:43 PM Oxygen Saturation (65215-7) 98 % 08/25/2024 05:16 PM Oxygen Saturation (16536-8) 97 % 08/25/2024 05:23 PM Temperature (8310-5) 97.6 [degF] Oxygen Saturation (34725-7) 97 % Respiratory Rate (9279-1) 19 /min Heart Rate (8867-4) 69 /min Blood Pressure Systolic (8480-6) 123 mm[Hg] Blood Pressure Diastolic (8462-4) 67 mm[Hg] 08/26/2024 01:15 AM Oxygen Saturation (52038-2) 96 % 08/26/2024 01:27 PM Temperature (8310-5) 97.3 [degF] Oxygen Saturation (72325-1) 95 % Respiratory Rate (9279-1) 18 /min Heart Rate (8867-4) 54 /min Blood Pressure Systolic (8480-6) 142 mm[Hg] Blood Pressure Diastolic (8462-4) 72 mm[Hg] 08/26/2024 01:26 PM Oxygen Saturation (81858-7) 95 % 08/27/2024 12:32 PM Temperature (8310-5) 96.8 [degF] Oxygen Saturation (35201-9) 99 % Respiratory Rate (9279-1) 16 /min Heart Rate (8867-4) 64 /min Blood Pressure Systolic (8480-6) 160 mm[Hg] Blood Pressure Diastolic (8462-4) 88 mm[Hg] 08/27/2024 12:33 PM Oxygen Saturation (67935-2) 99 % 08/27/2024 06:59 PM Oxygen Saturation (50670-4) 94 % 08/28/2024 03:05 PM Body Weight (40265-9) 208.6 [lb_av ] Body Mass Index (91486-6) 32.67 kg/m2 08/28/2024 02:41 PM Temperature (8310-5) 97.1 [degF] Oxygen Saturation (38552-0) 92 % Respiratory Rate (9279-1) 18 /min Heart Rate (8867-4) 72 /min Blood Pressure Systolic (8480-6) 116 mm[Hg] Blood Pressure Diastolic (8462-4) 67 mm[Hg] 08/28/2024 02:42 PM Body Weight (29576-8) 208.6 [lb_av ] Body Mass Index (49759-0) 32.67 kg/m2 08/28/2024 08:37 PM Oxygen Saturation (68295-9) 95 % 08/29/2024 05:39 PM Temperature (8310-5) 97.7 [degF] Oxygen Saturation (74577-7) 98 % Respiratory Rate (9279-1) 17 /min Heart Rate (8867-4) 74 /min Blood Pressure Systolic (8480-6) 156 mm[Hg] Blood Pressure Diastolic (8462-4) 74 mm[Hg] 08/29/2024 07:56 PM Oxygen Saturation (75741-6) 97 % 08/30/2024 08:38 AM Temperature (8310-5) 97.3 [degF] Oxygen Saturation (12185-1) 95 % Respiratory Rate (9279-1) 17 /min Heart Rate (8867-4) 57 /min Blood Pressure Systolic (8480-6) 102 mm[Hg] Blood Pressure Diastolic (8462-4) 57 mm[Hg] 08/30/2024 12:05 PM Body Weight (37400-2) 207.8 [lb_av ] Body Mass Index (33895-9) 32.54 kg/m2 08/30/2024 07:25 PM Oxygen Saturation (57003-0) 97 % 08/31/2024 08:25 AM Temperature (8310-5) 97 [degF] Oxygen Saturation (10861-0) 94 % Respiratory Rate (9279-1) 18 /min Heart Rate (8867-4) 95 /min Blood Pressure Systolic (8480-6) 102 mm[Hg] Blood Pressure Diastolic (8462-4) 59 mm[Hg] 08/31/2024 10:52 AM Body Weight (72844-2) 207.6 [lb_av ] Body Mass Index (34370-3) 32.51 kg/m2 08/31/2024 07:24 PM Oxygen Saturation (64752-2) 98 % 09/01/2024 05:10 PM Temperature (8310-5) 97 [degF] Oxygen Saturation (86397-1) 94 % Respiratory Rate (9279-1) 18 /min Heart Rate (8867-4) 66 /min Blood Pressure Systolic (8480-6) 98 mm[Hg] Blood Pressure Diastolic (8462-4) 57 mm[Hg] 09/01/2024 05:12 PM Body Weight (61294-7) 206.9 [lb_av ] Body Mass Index (70518-8) 32.4 kg/m2 12/29/2024 12:26 PM Body Weight (65835-3) 182.2 [lb_av ] Body Mass Index (75579-2) 28.53 kg/m2 12/30/2024 07:46 PM Temperature (8310-5) 96.8 [degF] Oxygen Saturation (19961-8) 96 % Respiratory Rate (9279-1) 19 /min Heart Rate (8867-4) 63 /min Blood Pressure Systolic (8480-6) 122 mm[Hg] Blood Pressure Diastolic (8462-4) 75 mm[Hg] 11/13/2024 01:43 PM Body Weight (37380-7) 194.6 [lb_av ] Body Mass Index (91733-9) 30.48 kg/m2 12/28/2024 07:17 AM Temperature (8310-5) 97.6 [degF] Oxygen Saturation (94576-0) 98 % Respiratory Rate (9279-1) 20 /min Heart Rate (8867-4) 81 /min Blood Pressure Systolic (8480-6) 157 mm[Hg] Blood Pressure Diastolic (8462-4) 78 mm[Hg] 01/01/2025 11:31 AM Temperature (8310-5) 97.1 [degF] Oxygen Saturation (43866-9) 98 % Respiratory Rate (9279-1) 18 /min Heart Rate (8867-4) 73 /min Blood Pressure Systolic (8480-6) 134 mm[Hg] Blood Pressure Diastolic (8462-4) 87 mm[Hg] Body Weight (50227-7) 182.3 [lb_av] Body Mass Index (04570-0) 28.55 kg/m2 10/09/2024 01:57 PM Body Weight (82292-9) 185.6 [lb_av ] Body Mass Index (62123-0) 29.07 kg/m2 12/31/2024 03:44 PM Temperature (8310-5) 96 [degF] Oxygen Saturation (50305-3) 98 % Respiratory Rate (9279-1) 16 /min Heart Rate (8867-4) 85 /min Blood Pressure Systolic (8480-6) 112 mm[Hg] Blood Pressure Diastolic (8462-4) 86 mm[Hg] Body Weight (93811-9) 182 [lb_av] Body Mass Index (16041-4) 28.5 kg/m2 12/30/2024 12:24 PM Temperature (8310-5) 98.2 [degF] Oxygen Saturation (52622-3) 96 % Respiratory Rate (9279-1) 16 /min Heart Rate (8867-4) 75 /min Blood Pressure Systolic (8480-6) 169 mm[Hg] Blood Pressure Diastolic (8462-4) 86 mm[Hg] 01/01/2025 08:19 PM Temperature (8310-5) 98.4 [degF] Oxygen Saturation (71265-7) 98 % Respiratory Rate (9279-1) 19 /min Heart Rate (8867-4) 78 /min Blood Pressure Systolic (8480-6) 118 mm[Hg] Blood Pressure Diastolic (8462-4) 86 mm[Hg] 12/31/2024 07:26 PM Temperature (8310-5) 97.4 [degF] Oxygen Saturation (34884-6) 97 % Respiratory Rate (9279-1) 18 /min Heart Rate (8867-4) 80 /min Blood Pressure Systolic (8480-6) 122 mm[Hg] Blood Pressure Diastolic (8462-4) 68 mm[Hg] 12/29/2024 11:27 AM Body Weight (30423-2) 177.32 [lb_a v] Body Mass Index (34107-1) 27.77 kg/m2 10/22/2024 05:05 PM Body Weight (17039-4) 184.5 [lb_av ] Body Mass Index (03680-6) 28.89 kg/m2 10/15/2024 11:47 AM Body Weight (38218-3) 192 [lb_av] Body Mass Index (54037-3) 30.07 kg/m2 11/28/2024 03:16 PM Body Weight (30307-5) 187.4 [lb_av ] Body Mass Index (33407-9) 29.35 kg/m2 10/15/2024 04:41 PM Body Weight (22135-5) 189.6 [lb_av ] Body Mass Index (49355-2) 29.69 kg/m2 12/28/2024 07:57 PM Oxygen Saturation (27011-1) 96 % 12/03/2024 01:07 PM Body Weight (66163-3) 182 [lb_av] Body Mass Index (32442-7) 28.5 kg/m2 10/29/2024 12:14 PM Body Weight (09088-0) 187 [lb_av] Body Mass Index (61869-0) 29.29 kg/m2 10/28/2024 05:04 PM Body Weight (64954-1) 197.6 [lb_av ] Body Mass Index (34891-9) 30.95 kg/m2 11/05/2024 11:08 AM Body Weight (76257-9) 194.6 [lb_av ] Body Mass Index (43674-0) 30.48 kg/m2 12/01/2024 03:47 PM Body Weight (79084-2) 188 [lb_av] Body Mass Index (34349-1) 29.44 kg/m2 10/31/2024 05:06 PM Body Weight (27500-5) 190.3 [lb_av ] Body Mass Index (40934-0) 29.8 kg/m2 12/04/2024 08:55 AM Body Weight (55044-2) 182.7 [lb_av ] Body Mass Index (60882-1) 28.61 kg/m2 12/29/2024 08:03 PM Temperature (8310-5) 97.5 [degF] Oxygen Saturation (06740-0) 98 % Respiratory Rate (9279-1) 20 /min Heart Rate (8867-4) 72 /min Blood Pressure Systolic (8480-6) 108 mm[Hg] Blood Pressure Diastolic (8462-4) 70 mm[Hg] 12/28/2024 07:56 PM Temperature (8310-5) 98.5 [degF] Respiratory Rate (9279-1) 16 /min Heart Rate (8867-4) 80 /min Blood Pressure Systolic (8480-6) 152 mm[Hg] Blood Pressure Diastolic (8462-4) 74 mm[Hg] 12/11/2024 12:18 PM Body Weight (45065-8) 178.2 [lb_av ] Body Mass Index (57974-1) 27.91 kg/m2 12/02/2024 11:02 AM Body Weight (50491-2) 182.2 [lb_av ] Body Mass Index (45835-6) 28.53 kg/m2 10/08/2024 05:26 PM Body Weight (37235-5) 198 [lb_av] Body Mass Index (67300-8) 31.01 kg/m2 12/29/2024 12:18 PM Temperature (8310-5) 98 [degF] Oxygen Saturation (64229-0) 98 % Respiratory Rate (9279-1) 18 /min Heart Rate (8867-4) 86 /min Blood Pressure Systolic (8480-6) 121 mm[Hg] Blood Pressure Diastolic (8462-4) 69 mm[Hg] 11/25/2024 04:52 PM Body Weight (75719-7) 187.2 [lb_av ] Body Mass Index (05633-6) 29.32 kg/m2 11/18/2024 02:06 PM Body Weight (81273-2) 188.3 [lb_av ] Body Mass Index (09167-1) 29.49 kg/m2 10/22/2024 12:56 PM Body Weight (66524-1) 188.8 [lb_av ] Body Mass Index (86353-5) 29.57 kg/m2 01/02/2025 03:15 PM Body Weight (20718-3) 183.1 [lb_av ] Body Mass Index (79728-8) 28.67 kg/m2 01/02/2025 03:13 PM Temperature (8310-5) 98 [degF] Oxygen Saturation (37178-0) 98 % Respiratory Rate (9279-1) 21 /min Heart Rate (8867-4) 112 /min Blood Pressure Systolic (8480-6) 102 mm[Hg] Blood Pressure Diastolic (8462-4) 63 mm[Hg] 01/02/2025 08:03 PM Temperature (8310-5) 98 [degF] 01/02/2025 08:04 PM Oxygen Saturation (64856-9) 98 % Respiratory Rate (9279-1) 17 /min Heart Rate (8867-4) 89 /min Blood Pressure Systolic (8480-6) 103 mm[Hg] Blood Pressure Diastolic (8462-4) 76 mm[Hg] 01/03/2025 08:41 AM Temperature (8310-5) 97.4 [degF] Oxygen Saturation (27961-4) 96 % Respiratory Rate (9279-1) 18 /min Heart Rate (8867-4) 85 /min Blood Pressure Systolic (8480-6) 134 mm[Hg] Blood Pressure Diastolic (8462-4) 75 mm[Hg] 01/03/2025 07:14 PM Temperature (8310-5) 98 [degF] Oxygen Saturation (87276-9) 98 % Respiratory Rate (9279-1) 23 /min Heart Rate (8867-4) 61 /min Blood Pressure Systolic (8480-6) 119 mm[Hg] Blood Pressure Diastolic (8462-4) 60 mm[Hg] 01/04/2025 03:34 PM Temperature (8310-5) 97.3 [degF] Oxygen Saturation (73806-5) 96 % Respiratory Rate (9279-1) 17 /min Heart Rate (8867-4) 64 /min Blood Pressure Systolic (8480-6) 134 mm[Hg] Blood Pressure Diastolic (8462-4) 75 mm[Hg] 01/04/2025 08:31 PM Oxygen Saturation (31325-8) 92 % Blood Pressure Systolic (8480-6) 165 mm[Hg] Blood Pressure Diastolic (8462-4) 92 mm[Hg] 01/04/2025 08:29 PM Temperature (8310-5) 97.1 [degF] Heart Rate (8867-4) 80 /min 01/04/2025 08:30 PM Respiratory Rate (9279-1) 18 /min 01/05/2025 12:57 PM Temperature (8310-5) 97.6 [degF] Oxygen Saturation (02921-8) 94 % Respiratory Rate (9279-1) 19 /min Heart Rate (8867-4) 76 /min Blood Pressure Systolic (8480-6) 136 mm[Hg] Blood Pressure Diastolic (8462-4) 73 mm[Hg] 01/06/2025 07:56 AM Temperature (8310-5) 98 [degF] Oxygen Saturation (11973-3) 98 % Respiratory Rate (9279-1) 16 /min Heart Rate (8867-4) 82 /min Blood Pressure Systolic (8480-6) 132 mm[Hg] Blood Pressure Diastolic (8462-4) 72 mm[Hg] 01/06/2025 11:08 AM Body Weight (81662-7) 182.38 [lb_a v] Body Mass Index (22384-9) 28.56 kg/m2 01/06/2025 07:57 PM Temperature (8310-5) 97.5 [degF] Oxygen Saturation (93407-7) 95 % Respiratory Rate (9279-1) 22 /min Heart Rate (8867-4) 75 /min Blood Pressure Systolic (8480-6) 120 mm[Hg] Blood Pressure Diastolic (8462-4) 67 mm[Hg] 01/07/2025 03:24 PM Temperature (8310-5) 98 [degF] Oxygen Saturation (17520-1) 96 % Respiratory Rate (9279-1) 18 /min Heart Rate (8867-4) 73 /min Blood Pressure Systolic (8480-6) 132 mm[Hg] Blood Pressure Diastolic (8462-4) 81 mm[Hg] 01/07/2025 09:31 PM Temperature (8310-5) 97 [degF] Oxygen Saturation (51055-3) 99 % Respiratory Rate (9279-1) 16 /min Heart Rate (8867-4) 73 /min Blood Pressure Systolic (8480-6) 120 mm[Hg] Blood Pressure Diastolic (8462-4) 69 mm[Hg] 01/08/2025 04:17 PM Temperature (8310-5) 96.6 [degF] Oxygen Saturation (93155-8) 99 % Respiratory Rate (9279-1) 16 /min Heart Rate (8867-4) 68 /min Blood Pressure Systolic (8480-6) 101 mm[Hg] Blood Pressure Diastolic (8462-4) 69 mm[Hg] 01/08/2025 07:59 PM Temperature (8310-5) 97.9 [degF] Oxygen Saturation (23205-2) 96 % Respiratory Rate (9279-1) 17 /min Heart Rate (8867-4) 73 /min Blood Pressure Systolic (8480-6) 137 mm[Hg] Blood Pressure Diastolic (8462-4) 61 mm[Hg] 01/09/2025 02:03 PM Temperature (8310-5) 96.4 [degF] Oxygen Saturation (55954-0) 99 % Respiratory Rate (9279-1) 16 /min Heart Rate (8867-4) 87 /min Blood Pressure Systolic (8480-6) 144 mm[Hg] Blood Pressure Diastolic (8462-4) 92 mm[Hg] 01/09/2025 08:17 PM Temperature (8310-5) 98.6 [degF] Respiratory Rate (9279-1) 23 /min Heart Rate (8867-4) 97 /min 01/09/2025 08:18 PM Oxygen Saturation (63217-0) 99 % Blood Pressure Systolic (8480-6) 175 mm[Hg] Blood Pressure Diastolic (8462-4) 92 mm[Hg] 01/10/2025 02:19 PM Temperature (8310-5) 97.6 [degF] Oxygen Saturation (70208-6) 97 % Respiratory Rate (9279-1) 19 /min Heart Rate (8867-4) 78 /min Blood Pressure Systolic (8480-6) 122 mm[Hg] Blood Pressure Diastolic (8462-4) 64 mm[Hg] 01/10/2025 06:42 PM Temperature (8310-5) 98.2 [degF] Oxygen Saturation (82706-5) 97 % Respiratory Rate (9279-1) 16 /min Heart Rate (8867-4) 72 /min Blood Pressure Systolic (8480-6) 126 mm[Hg] Blood Pressure Diastolic (8462-4) 84 mm[Hg] 01/11/2025 07:21 AM Temperature (8310-5) 97.7 [degF] Oxygen Saturation (76072-6) 95 % Respiratory Rate (9279-1) 19 /min Heart Rate (8867-4) 78 /min Blood Pressure Systolic (8480-6) 130 mm[Hg] Blood Pressure Diastolic (8462-4) 71 mm[Hg] 01/11/2025 11:04 PM Oxygen Saturation (72211-8) 97 % Heart Rate (8867-4) 78 /min Blood Pressure Systolic (8480-6) 128 mm[Hg] Blood Pressure Diastolic (8462-4) 60 mm[Hg] 01/12/2025 07:43 AM Temperature (8310-5) 97.6 [degF] Oxygen Saturation (33296-6) 98 % Respiratory Rate (9279-1) 21 /min Heart Rate (8867-4) 73 /min Blood Pressure Systolic (8480-6) 158 mm[Hg] Blood Pressure Diastolic (8462-4) 79 mm[Hg] 01/12/2025 09:45 PM Temperature (8310-5) 98.1 [degF] Oxygen Saturation (62231-0) 97 % Respiratory Rate (9279-1) 18 /min Heart Rate (8867-4) 70 /min Blood Pressure Systolic (8480-6) 140 mm[Hg] Blood Pressure Diastolic (8462-4) 78 mm[Hg] 01/13/2025 08:37 AM Body Weight (41711-2) 177.9 [lb_av ] Body Mass Index (03191-7) 27.86 kg/m2 01/13/2025 08:41 AM Temperature (8310-5) 98 [degF] Oxygen Saturation (62898-7) 91 % Respiratory Rate (9279-1) 18 /min Heart Rate (8867-4) 84 /min Blood Pressure Systolic (8480-6) 126 mm[Hg] Blood Pressure Diastolic (8462-4) 55 mm[Hg] 01/13/2025 08:19 PM Temperature (8310-5) 97 [degF] Oxygen Saturation (70084-5) 95 % Respiratory Rate (9279-1) 20 /min Heart Rate (8867-4) 77 /min Blood Pressure Systolic (8480-6) 149 mm[Hg] Blood Pressure Diastolic (8462-4) 69 mm[Hg] 01/14/2025 03:38 PM Temperature (8310-5) 97.9 [degF] Oxygen Saturation (24058-5) 98 % Respiratory Rate (9279-1) 20 /min Heart Rate (8867-4) 74 /min Blood Pressure Systolic (8480-6) 122 mm[Hg] Blood Pressure Diastolic (8462-4) 86 mm[Hg] 01/14/2025 08:16 PM Temperature (8310-5) 98.2 [degF] Oxygen Saturation (83111-2) 95 % Respiratory Rate (9279-1) 20 /min Heart Rate (8867-4) 82 /min Blood Pressure Systolic (8480-6) 145 mm[Hg] Blood Pressure Diastolic (8462-4) 66 mm[Hg] 01/15/2025 07:51 PM Temperature (8310-5) 97.5 [degF] Oxygen Saturation (50706-6) 95 % Respiratory Rate (9279-1) 18 /min Heart Rate (8867-4) 90 /min Blood Pressure Systolic (8480-6) 148 mm[Hg] Blood Pressure Diastolic (8462-4) 79 mm[Hg] 01/16/2025 08:17 PM Temperature (8310-5) 98.4 [degF] Oxygen Saturation (26925-4) 98 % Respiratory Rate (9279-1) 22 /min Heart Rate (8867-4) 85 /min Blood Pressure Systolic (8480-6) 113 mm[Hg] Blood Pressure Diastolic (8462-4) 89 mm[Hg] 01/16/2025 06:07 PM Temperature (8310-5) 99.2 [degF] Oxygen Saturation (54032-2) 99 % Respiratory Rate (9279-1) 17 /min Heart Rate (8867-4) 74 /min Blood Pressure Systolic (8480-6) 193 mm[Hg] Blood Pressure Diastolic (8462-4) 105 mm[Hg] 01/17/2025 03:32 PM Temperature (8310-5) 98 [degF] Oxygen Saturation (56726-8) 97 % Respiratory Rate (9279-1) 20 /min Heart Rate (8867-4) 78 /min Blood Pressure Systolic (8480-6) 120 mm[Hg] Blood Pressure Diastolic (8462-4) 79 mm[Hg] 01/17/2025 08:35 PM Oxygen Saturation (36636-3) 99 % Blood Pressure Systolic (8480-6) 140 mm[Hg] Blood Pressure Diastolic (8462-4) 91 mm[Hg] 01/17/2025 08:34 PM Temperature (8310-5) 97.6 [degF] Respiratory Rate (9279-1) 18 /min Heart Rate (8867-4) 80 /min 01/18/2025 09:56 AM Temperature (8310-5) 97.8 [degF] Oxygen Saturation (56610-1) 98 % Respiratory Rate (9279-1) 20 /min Heart Rate (8867-4) 95 /min Blood Pressure Systolic (8480-6) 131 mm[Hg] Blood Pressure Diastolic (8462-4) 76 mm[Hg] 01/18/2025 08:51 PM Temperature (8310-5) 98.6 [degF] Oxygen Saturation (58191-9) 95 % Respiratory Rate (9279-1) 18 /min Heart Rate (8867-4) 84 /min Blood Pressure Systolic (8480-6) 154 mm[Hg] Blood Pressure Diastolic (8462-4) 76 mm[Hg] 01/19/2025 07:25 AM Temperature (8310-5) 97.8 [degF] Oxygen Saturation (17714-1) 94 % Respiratory Rate (9279-1) 18 /min Heart Rate (8867-4) 81 /min Blood Pressure Systolic (8480-6) 101 mm[Hg] Blood Pressure Diastolic (8462-4) 62 mm[Hg] 01/19/2025 07:36 PM Temperature (8310-5) 98.4 [degF] Oxygen Saturation (76313-7) 97 % Respiratory Rate (9279-1) 16 /min Heart Rate (8867-4) 86 /min Blood Pressure Systolic (8480-6) 175 mm[Hg] Blood Pressure Diastolic (8462-4) 71 mm[Hg] 01/20/2025 08:50 AM Body Weight (75870-3) 171.2 [lb_av ] Body Mass Index (49493-2) 26.81 kg/m2 01/20/2025 02:10 PM Temperature (8310-5) 97.8 [degF] Oxygen Saturation (60758-4) 93 % Respiratory Rate (9279-1) 18 /min Heart Rate (8867-4) 101 /min Blood Pressure Systolic (8480-6) 140 mm[Hg] Blood Pressure Diastolic (8462-4) 82 mm[Hg] 01/20/2025 07:13 PM Temperature (8310-5) 97.6 [degF] Oxygen Saturation (47663-3) 94 % Respiratory Rate (9279-1) 20 /min Heart Rate (8867-4) 81 /min Blood Pressure Systolic (8480-6) 134 mm[Hg] Blood Pressure Diastolic (8462-4) 79 mm[Hg] 01/21/2025 08:34 AM Temperature (8310-5) 97.5 [degF] Oxygen Saturation (35749-8) 95 % Respiratory Rate (9279-1) 13 /min Heart Rate (8867-4) 63 /min Blood Pressure Systolic (8480-6) 125 mm[Hg] Blood Pressure Diastolic (8462-4) 67 mm[Hg] 01/21/2025 04:25 PM Temperature (8310-5) 97.6 [degF] 01/21/2025 07:04 PM Temperature (8310-5) 98.1 [degF] Oxygen Saturation (20273-9) 99 % Respiratory Rate (9279-1) 16 /min Heart Rate (8867-4) 80 /min Blood Pressure Systolic (8480-6) 141 mm[Hg] Blood Pressure Diastolic (8462-4) 68 mm[Hg] 01/22/2025 09:06 AM Temperature (8310-5) 97.5 [degF] Oxygen Saturation (45734-0) 96 % Respiratory Rate (9279-1) 19 /min Heart Rate (8867-4) 75 /min Blood Pressure Systolic (8480-6) 152 mm[Hg] Blood Pressure Diastolic (8462-4) 59 mm[Hg] 01/22/2025 06:31 PM Temperature (8310-5) 97.6 [degF] Oxygen Saturation (03520-1) 98 % Respiratory Rate (9279-1) 22 /min Heart Rate (8867-4) 90 /min Blood Pressure Systolic (8480-6) 123 mm[Hg] Blood Pressure Diastolic (8462-4) 79 mm[Hg] 01/23/2025 06:50 PM Temperature (8310-5) 98.2 [degF] Oxygen Saturation (41018-2) 96 % Respiratory Rate (9279-1) 18 /min Heart Rate (8867-4) 88 /min Blood Pressure Systolic (8480-6) 122 mm[Hg] Blood Pressure Diastolic (8462-4) 85 mm[Hg] 01/23/2025 05:59 PM Temperature (8310-5) 97.5 [degF] Oxygen Saturation (16062-6) 99 % Respiratory Rate (9279-1) 18 /min Heart Rate (8867-4) 98 /min Blood Pressure Systolic (8480-6) 144 mm[Hg] Blood Pressure Diastolic (8462-4) 78 mm[Hg] 01/24/2025 10:17 AM Temperature (8310-5) 98.8 [degF] Oxygen Saturation (99839-0) 98 % Respiratory Rate (9279-1) 18 /min Heart Rate (8867-4) 78 /min Blood Pressure Systolic (8480-6) 128 mm[Hg] Blood Pressure Diastolic (8462-4) 91 mm[Hg] 01/24/2025 08:52 PM Oxygen Saturation (10812-4) 98 % 01/24/2025 08:51 PM Temperature (8310-5) 97.6 [degF] Respiratory Rate (9279-1) 17 /min Heart Rate (8867-4) 72 /min Blood Pressure Systolic (8480-6) 150 mm[Hg] Blood Pressure Diastolic (8462-4) 81 mm[Hg] 01/25/2025 08:10 AM Temperature (8310-5) 97.6 [degF] Oxygen Saturation (21696-8) 99 % Respiratory Rate (9279-1) 17 /min Heart Rate (8867-4) 60 /min Blood Pressure Systolic (8480-6) 116 mm[Hg] Blood Pressure Diastolic (8462-4) 66 mm[Hg] 01/25/2025 06:42 PM Temperature (8310-5) 98.2 [degF] Respiratory Rate (9279-1) 17 /min Heart Rate (8867-4) 82 /min Blood Pressure Systolic (8480-6) 147 mm[Hg] Blood Pressure Diastolic (8462-4) 72 mm[Hg] 01/25/2025 06:43 PM Oxygen Saturation (64102-5) 98 % 01/26/2025 09:08 AM Temperature (8310-5) 97.8 [degF] Oxygen Saturation (95004-0) 96 % Respiratory Rate (9279-1) 18 /min Heart Rate (8867-4) 72 /min Blood Pressure Systolic (8480-6) 113 mm[Hg] Blood Pressure Diastolic (8462-4) 76 mm[Hg] 01/26/2025 12:57 PM Body Weight (78909-0) 179.9 [lb_av ] Body Mass Index (78672-3) 28.17 kg/m2 01/26/2025 08:57 PM Temperature (8310-5) 97.8 [degF] Oxygen Saturation (19546-4) 98 % Respiratory Rate (9279-1) 20 /min Heart Rate (8867-4) 78 /min Blood Pressure Systolic (8480-6) 123 mm[Hg] Blood Pressure Diastolic (8462-4) 65 mm[Hg] 01/27/2025 12:37 PM Oxygen Saturation (45793-7) 99 % Respiratory Rate (9279-1) 19 /min Heart Rate (8867-4) 77 /min Blood Pressure Systolic (8480-6) 112 mm[Hg] Blood Pressure Diastolic (8462-4) 63 mm[Hg] 01/27/2025 12:36 PM Temperature (8310-5) 97.3 [degF] 01/27/2025 07:50 PM Temperature (8310-5) 96.9 [degF] Oxygen Saturation (39451-0) 96 % Respiratory Rate (9279-1) 18 /min Heart Rate (8867-4) 80 /min Blood Pressure Systolic (8480-6) 130 mm[Hg] Blood Pressure Diastolic (8462-4) 80 mm[Hg] 01/28/2025 11:20 AM Temperature (8310-5) 98 [degF] Oxygen Saturation (89559-7) 97 % Respiratory Rate (9279-1) 14 /min Heart Rate (8867-4) 77 /min Blood Pressure Systolic (8480-6) 128 mm[Hg] Blood Pressure Diastolic (8462-4) 88 mm[Hg] 01/28/2025 04:08 PM Body Weight (96960-7) 179.4 [lb_av ] Body Mass Index (68446-8) 28.09 kg/m2 01/29/2025 02:16 AM Temperature (8310-5) 97.5 [degF] Oxygen Saturation (13740-8) 91 % Respiratory Rate (9279-1) 19 /min Heart Rate (8867-4) 75 /min Blood Pressure Systolic (8480-6) 142 mm[Hg] Blood Pressure Diastolic (8462-4) 69 mm[Hg] 01/29/2025 11:19 AM Temperature (8310-5) 97.3 [degF] Oxygen Saturation (64824-5) 98 % Respiratory Rate (9279-1) 15 /min Heart Rate (8867-4) 68 /min Blood Pressure Systolic (8480-6) 126 mm[Hg] Blood Pressure Diastolic (8462-4) 72 mm[Hg] 01/29/2025 07:15 PM Temperature (8310-5) 98.1 [degF] Oxygen Saturation (25054-2) 95 % Respiratory Rate (9279-1) 16 /min Heart Rate (8867-4) 81 /min Blood Pressure Systolic (8480-6) 156 mm[Hg] Blood Pressure Diastolic (8462-4) 83 mm[Hg] 01/30/2025 01:18 PM Temperature (8310-5) 97.3 [degF] Oxygen Saturation (11459-1) 98 % Respiratory Rate (9279-1) 15 /min Heart Rate (8867-4) 68 /min Blood Pressure Systolic (8480-6) 126 mm[Hg] Blood Pressure Diastolic (8462-4) 72 mm[Hg] 01/30/2025 08:59 PM Respiratory Rate (9279-1) 21 /min Heart Rate (8867-4) 82 /min Blood Pressure Systolic (8480-6) 132 mm[Hg] Blood Pressure Diastolic (8462-4) 71 mm[Hg] 01/30/2025 09:01 PM Oxygen Saturation (31894-1) 94 % 01/30/2025 07:22 PM Temperature (8310-5) 97.8 [degF] 01/31/2025 08:51 AM Temperature (8310-5) 97.4 [degF] Oxygen Saturation (33552-0) 97 % Respiratory Rate (9279-1) 17 /min Heart Rate (8867-4) 61 /min Blood Pressure Systolic (8480-6) 115 mm[Hg] Blood Pressure Diastolic (8462-4) 72 mm[Hg] 01/31/2025 11:31 PM Temperature (8310-5) 97.4 [degF] Heart Rate (8867-4) 80 /min 01/31/2025 11:32 PM Oxygen Saturation (40667-3) 98 % Respiratory Rate (9279-1) 17 /min Blood Pressure Systolic (8480-6) 115 mm[Hg] Blood Pressure Diastolic (8462-4) 76 mm[Hg] 02/01/2025 09:07 AM Temperature (8310-5) 97.5 [degF] Oxygen Saturation (50692-0) 98 % Respiratory Rate (9279-1) 18 /min Heart Rate (8867-4) 81 /min Blood Pressure Systolic (8480-6) 129 mm[Hg] Blood Pressure Diastolic (8462-4) 77 mm[Hg] 02/01/2025 08:15 PM Temperature (8310-5) 98 [degF] Oxygen Saturation (64001-7) 93 % Respiratory Rate (9279-1) 17 /min Heart Rate (8867-4) 88 /min Blood Pressure Systolic (8480-6) 117 mm[Hg] Blood Pressure Diastolic (8462-4) 77 mm[Hg] 02/02/2025 08:12 AM Temperature (8310-5) 97.8 [degF] Oxygen Saturation (90450-9) 98 % Respiratory Rate (9279-1) 18 /min Heart Rate (8867-4) 73 /min Blood Pressure Systolic (8480-6) 126 mm[Hg] Blood Pressure Diastolic (8462-4) 72 mm[Hg] 02/02/2025 07:31 PM Temperature (8310-5) 97.6 [degF] Oxygen Saturation (95238-6) 94 % Respiratory Rate (9279-1) 20 /min Heart Rate (8867-4) 63 /min Blood Pressure Systolic (8480-6) 101 mm[Hg] Blood Pressure Diastolic (8462-4) 60 mm[Hg] 02/03/2025 09:45 AM Body Weight (83604-1) 173.8 [lb_av ] Body Mass Index (03683-6) 27.22 kg/m2 02/03/2025 09:07 AM Temperature (8310-5) 96.9 [degF] Oxygen Saturation (85802-4) 92 % Respiratory Rate (9279-1) 18 /min Heart Rate (8867-4) 74 /min Blood Pressure Systolic (8480-6) 129 mm[Hg] Blood Pressure Diastolic (8462-4) 75 mm[Hg] 02/03/2025 07:53 PM Temperature (8310-5) 96.7 [degF] Oxygen Saturation (97315-6) 95 % Respiratory Rate (9279-1) 23 /min Heart Rate (8867-4) 83 /min Blood Pressure Systolic (8480-6) 143 mm[Hg] Blood Pressure Diastolic (8462-4) 65 mm[Hg] 02/04/2025 11:36 AM Oxygen Saturation (13876-8) 96 % 02/04/2025 11:35 AM Temperature (8310-5) 97.6 [degF] Respiratory Rate (9279-1) 19 /min Heart Rate (8867-4) 108 /min Blood Pressure Systolic (8480-6) 145 mm[Hg] Blood Pressure Diastolic (8462-4) 98 mm[Hg] 02/04/2025 06:53 PM Temperature (8310-5) 97.3 [degF] Oxygen Saturation (71548-5) 96 % Respiratory Rate (9279-1) 19 /min Heart Rate (8867-4) 98 /min Blood Pressure Systolic (8480-6) 101 mm[Hg] Blood Pressure Diastolic (8462-4) 73 mm[Hg] 02/05/2025 12:12 PM Temperature (8310-5) 97.4 [degF] Oxygen Saturation (46342-0) 99 % Respiratory Rate (9279-1) 18 /min Heart Rate (8867-4) 64 /min Blood Pressure Systolic (8480-6) 135 mm[Hg] Blood Pressure Diastolic (8462-4) 72 mm[Hg] 02/05/2025 07:30 PM Temperature (8310-5) 97.9 [degF] Oxygen Saturation (68791-0) 98 % Respiratory Rate (9279-1) 18 /min Heart Rate (8867-4) 70 /min Blood Pressure Systolic (8480-6) 140 mm[Hg] Blood Pressure Diastolic (8462-4) 78 mm[Hg] 02/07/2025 12:08 AM Temperature (8310-5) 98 [degF] Oxygen Saturation (31866-8) 96 % Respiratory Rate (9279-1) 16 /min Heart Rate (8867-4) 88 /min Blood Pressure Systolic (8480-6) 122 mm[Hg] Blood Pressure Diastolic (8462-4) 77 mm[Hg] 02/07/2025 08:24 AM Temperature (8310-5) 97.5 [degF] Oxygen Saturation (43550-6) 98 % Respiratory Rate (9279-1) 17 /min Heart Rate (8867-4) 87 /min Blood Pressure Systolic (8480-6) 148 mm[Hg] Blood Pressure Diastolic (8462-4) 75 mm[Hg] 02/07/2025 10:03 PM Temperature (8310-5) 98 [degF] Oxygen Saturation (04320-5) 95 % Respiratory Rate (9279-1) 16 /min Heart Rate (8867-4) 88 /min Blood Pressure Systolic (8480-6) 126 mm[Hg] Blood Pressure Diastolic (8462-4) 88 mm[Hg] 02/08/2025 07:52 AM Temperature (8310-5) 97.5 [degF] Oxygen Saturation (97288-8) 96 % Respiratory Rate (9279-1) 18 /min Heart Rate (8867-4) 71 /min Blood Pressure Systolic (8480-6) 142 mm[Hg] Blood Pressure Diastolic (8462-4) 69 mm[Hg] 02/08/2025 09:40 PM Temperature (8310-5) 98 [degF] Oxygen Saturation (70904-3) 96 % Respiratory Rate (9279-1) 16 /min Heart Rate (8867-4) 88 /min Blood Pressure Systolic (8480-6) 112 mm[Hg] Blood Pressure Diastolic (8462-4) 78 mm[Hg] 02/09/2025 12:44 PM Temperature (8310-5) 97.6 [degF] Oxygen Saturation (66864-5) 97 % Respiratory Rate (9279-1) 19 /min Heart Rate (8867-4) 72 /min Blood Pressure Systolic (8480-6) 108 mm[Hg] Blood Pressure Diastolic (8462-4) 64 mm[Hg] 02/09/2025 08:34 PM Temperature (8310-5) 97.7 [degF] Oxygen Saturation (02237-6) 92 % Respiratory Rate (9279-1) 22 /min Heart Rate (8867-4) 65 /min Blood Pressure Systolic (8480-6) 132 mm[Hg] Blood Pressure Diastolic (8462-4) 67 mm[Hg] 02/10/2025 08:38 AM Temperature (8310-5) 97.1 [degF] Oxygen Saturation (98553-7) 100 % Respiratory Rate (9279-1) 20 /min Heart Rate (8867-4) 82 /min Blood Pressure Systolic (8480-6) 151 mm[Hg] Blood Pressure Diastolic (8462-4) 81 mm[Hg] 02/10/2025 07:26 PM Temperature (8310-5) 97.5 [degF] Oxygen Saturation (11237-9) 93 % Respiratory Rate (9279-1) 16 /min Heart Rate (8867-4) 76 /min Blood Pressure Systolic (8480-6) 160 mm[Hg] Blood Pressure Diastolic (8462-4) 84 mm[Hg] 02/11/2025 02:01 PM Temperature (8310-5) 97.5 [degF] Oxygen Saturation (84725-8) 95 % Respiratory Rate (9279-1) 20 /min Heart Rate (8867-4) 70 /min Blood Pressure Systolic (8480-6) 125 mm[Hg] Blood Pressure Diastolic (8462-4) 69 mm[Hg] 02/11/2025 07:21 PM Temperature (8310-5) 97.3 [degF] Oxygen Saturation (20227-0) 95 % Respiratory Rate (9279-1) 19 /min Heart Rate (8867-4) 64 /min Blood Pressure Systolic (8480-6) 132 mm[Hg] Blood Pressure Diastolic (8462-4) 65 mm[Hg] 02/12/2025 08:29 AM Temperature (8310-5) 98.1 [degF] Oxygen Saturation (66319-0) 98 % Respiratory Rate (9279-1) 16 /min Heart Rate (8867-4) 75 /min Blood Pressure Systolic (8480-6) 156 mm[Hg] Blood Pressure Diastolic (8462-4) 77 mm[Hg] 02/12/2025 08:28 AM Temperature (8310-5) 98.1 [degF] 02/12/2025 08:02 PM Temperature (8310-5) 98 [degF] 02/12/2025 08:42 PM Temperature (8310-5) 98.1 [degF] Oxygen Saturation (81372-1) 94 % Respiratory Rate (9279-1) 17 /min Heart Rate (8867-4) 64 /min Blood Pressure Systolic (8480-6) 110 mm[Hg] Blood Pressure Diastolic (8462-4) 67 mm[Hg] Social History No smoking Hx information available Encounters Type CPT Code Date Location Provider Indication s encounter report 07/04/2022 02:0 7 PM - 04/22/2024 03:25 PM Keo Delvalle DO encounter report 07/04/2022 02:0 7 PM - 05/25/2024 07:57 PM Keo Delvalle DO Advance Directives Directive Description Verification Date Supporting Document(s) Other Directive
--- OUTSIDE RECORDS SUMMARY | 2025-02-13 07:48 | XMS_ITS | CCD ---
Author Name Interface, [id number] Address [address] [place] [address] [facility]ists[facility] Address [address] [place] [address] Care Team Providers Care Gas Line Servicer Name Role Phone Jovon COSTA, Kip Angulo Unavailable Unavailable Reason for Visit Social History Date Name Value 01/13/2016 Sex Female
--- OUTSIDE RECORDS SUMMARY | 2025-02-13 07:48 | XMS_ITS | Patient Health Record ---
Author Organization [facility] Billing Info Address [address] [place] [id number] Care Team Providers Care Mortgage Analyst Name Role Phone AMINA MONIQUE, HARIS Mariano Unavailab le Reason For Referral No Information Medications Medication SIG (Take, Route, Fr equency, Duration) Notes Start Date End Date Status Estradiol Active Maxzide Active [place] Thyroid Activ e Wellbutrin Active Aspirin Active [...] MEDICARE [place] PART B [address] [facility] GISSELL NUNEZ [id number] Meghna Chaudhari Self - patient is the insured FOR LIFE [facility] [address] [place], [place] [phone] [id number] Brennan Chaudhari Spouse - patient is the spouse of the insured Medical (General) History Medical History History ICD Code MIGRAINE PNEUMONIA HIGH BLOOD PRESSURE HIGH CHOLESTEROL DIABETES ARTHRITIS THYROID DISEASE NERVOUS BREAKDOWN FREQUENT INFECTIONS Surgical History Surgery Date(Month/Year) Back surgery [facility]
[2025-02-13 07:52] LABS: Hematocrit 26.5 % (36-47); Hemoglobin 8.40 g/dL (11.27-16.99); Mean Corpuscular HGB Conc 31.7 g/dL (30-55); Mean Corpuscular Hemoglobin 27.9 pg (27-33); Mean Corpuscular Volume 88.0 fl (85-98); Nucleated Red Blood Cells % 0 %; Platelet Count 258 10^3/cmm (157-399); Red Blood Count 3.01 10^6/uL (3.85-5.65); White Blood Count 13.39 10^3/uL (3.29-11.43)
[2025-02-13 08:04] LABS: Glucose Urine UA Negative (Normal); Nitrate Urine Negative (Negative); Specific Gravity, Urine 1.010 (1.005-1.030)
[2025-02-13 08:06] LABS: Lactic Sepsis W/Reflex 1.7 mmol/L (0.5-2.2)
[2025-02-13 08:09] LABS: Troponin(5th) Baseline 43 ng/L (0-10)
[2025-02-13 08:11] LABS: Alanine Aminotransferase < 5 U/L (0-33); Albumin Level 3.9 g/dL (3.5-5.2); Alkaline Phosphatase 142 U/L (35-105); Anion Gap 18.1 (5-19); Aspartate Amino Transferase 7 U/L (0-32); Blood Urea Nitrogen 21 mg/dL (8-23); Calcium 8.8 mg/dL (8.5-10.5); Carbon Dioxide 28 mmol/L (22-29); Chloride 96 mmol/L (98-107); Globulin 2.8 g/dL (1.3-4.6); Glucose 171 mg/dL (65-115); Osmolality Calculated 293 mOsm/kg (285-295); Potassium 4.1 mmol/L (3.5-5.1); Sodium 138 mmol/L (136-145); Total Protein 6.7 g/dL (6.6-8.7)
[2025-02-13 08:24] LABS: UA Slide Review UA Slide Review Perf
[2025-02-13 08:29] LABS: Respiratory Syncytial Virus Ce NEGATIVE (Negative); SARS-CoV-2 PCR NEGATIVE (Negative)
[2025-02-13] MEDS: cefTRIAXone 1,000 mg SDV 1000 MG IVP (09:04)
[2025-02-13 09:14] LABS: Troponin 5 2HR 31.38 ng/L (0-10)
[2025-02-13 09:15] LABS: Troponin 5 2HR Delta -11.62 ABS# (0-10)
--- NOTE | 2025-02-13 12:00 | PM.HP ---
Providers/Chief Complaint Admitting Physician: Nic Pack MD Primary Care Provider: Keo Delvalle DO Chief Complaint: syncope, lethargy, hypotensive History of Present Illness Meghna Chaudhari is a 79 year old female with past medical history of end-stage renal disease on hemodialysis, long-term resident, history of ESBL UTI, hypertension, type 2 diabetes mellitus, parkinsonism presents to the ER today from dialysis center. As per the patient and ER physician patient was getting dialysis today when she developed hypotension and passed out. In the ER she was found to have a blood pressure as low as 80 systolic and was given 1 L of IV fluid bolus after which blood pressures improved to 145 systolic. Currently on examination patient is sitting up in bed without any complaints with a blood pressure of 160 systolic. Patient has felt recently denies any nausea, vomiting, abdominal pain, dysuria. States she has had chronic diarrhea with multiple soft incontinent bowel movements every day for last 1 year. She has had workup done as an outpatient with gastroenterology without any help. Review of Systems General: Reports: 10 or more systems reviewed and unremarkable except in HPI and below Const: Denies: fever(s), chills, body aches, change in appetite, change in weight, malaise, night sweats, diaphoresis, change in sleep pattern, daytime sleepiness or snoring Eyes: Denies: change in vision, blurry vision, photophobia, eye discomfort or eye discharge ENMT: Denies: throat pain, enlarged tonsils, hoarseness, mouth pain, oral sores, dry mouth, tinnitus, nasal congestion or post nasal drip Card: Denies: chest pain, palpitations, irregular heart rhythm, edema, swelling of feet/ankles, lightheadedness, syncope, pre-syncope, dyspnea on exertion, orthopnea, leg pain with exertion or acrocyanosis Resp: Denies: dyspnea, productive cough, non-productive cough, wheezing, stridor, pain on inspiration, change in phlegm color, hemoptysis or chest congestion GI: Denies: abdominal pain, nausea, vomiting, hematemesis, coffee ground emesis, dysphagia, heartburn, diarrhea, constipation, bloating, GI cramping, change in bowel habits, pain on defecation, hematochezia or melena : Denies: flank pain, dysuria, urinary frequency, urinary urgency, urinary hesitancy, nocturia or hematuria Musc: Denies: neck pain, back pain, extremity pain, joint pain, joint swelling, joint redness, joint stiffness or limited range of motion Neuro: Denies: headache(s), numbness in extremities, weakness in extremities, sensory changes, lack of coordination, difficulty walking, frequent falls, dizziness, vertigo, confusion, Slurred speech present, difficulty communicating thoughts or seizure-like activity Psych: Denies: anxiety, depression, mood swings, panic attacks, hopelessness or irritability Endo: Denies: polyuria, polydipsia, tired all the time, cold intolerance, excessive sweating, flushing or heat intolerance Tank/Lymph: Denies: easy bruising or easy bleeding All/Imm: Denies: tongue swelling, facial swelling or acute wheezing Medications/Allergies Home Medications ?Medication ?Instructions ?Recorded ?Confirmed ?Last Taken ?Type bimatoprost 0.01 % eye drops 1 drp ophthalmic (eye) BEDTIME 04/07/22 02/02/25 01/14/25 18:25 History (Pepe) carbidopa 25 mg-levodopa 100 mg 1 tab PO TID 04/07/22 02/02/25 01/19/25 History tablet furosemide 40 mg tablet (Lasix) 40 mg PO BID 04/07/22 02/02/25 01/19/25 History insulin aspart U-100 100 unit/mL See Rx Instructions .Route .COMPLEX 04/07/22 02/02/25 01/19/25 History (3 mL) subcutaneous pen (Novolog FlexPen U-100 Insulin aspart) loperamide 2 mg tablet (Imodium 2 mg PO Q6H PRN Loose Stool 04/07/22 02/02/25 01/14/25 04:25 History A-D) metolazone 5 mg tablet 5 mg PO QAM 04/07/22 02/02/25 01/19/25 History ondansetron HCl 4 mg tablet 4 mg PO Q6H PRN Nausea And Vomiting 04/07/22 02/02/25 01/04/25 14:35 History simvastatin 40 mg tablet 40 mg PO BEDTIME@21 04/07/22 02/02/25 01/19/25 History bisacodyl 10 mg rectal suppository 10 mg ND DAILY PRN Constipation 07/14/22 02/02/25 03/13/24 History Stump Executive Account Manager #1 ea 11/21/22 02/02/25 Unknown Rx alprazolam 0.5 mg tablet (Xanax) 0.5 mg PO TID PRN Anxiety 04/29/23 02/02/25 01/19/25 History vitamin A and D 1 applic topical DIRECTED 04/29/23 02/02/25 09/28/24 18:10 History fluticasone propionate 50 1 mcg intranasal BID 03/19/24 02/02/25 01/19/25 History mcg/actuation nasal spray,suspension (Flonase Allergy Relief) levothyroxine 150 mcg tablet 150 mcg PO DAILY 03/19/24 02/02/25 01/19/25 History trihexyphenidyl 2 mg tablet 2 mg PO TID 03/19/24 02/02/25 01/19/25 History white petrolatum (Vaseline jelly, 1 applic topical PRN 03/19/24 02/02/25 12/15/24 23:25 History topical) apixaban 5 mg tablet (Eliquis) 5 mg PO BID 03/30/24 02/02/25 01/19/25 History acetaminophen 325 mg tablet 650 mg PO Q6H 04/22/24 02/02/25 01/16/25 History gabapentin 100 mg capsule 200 mg PO QPM 04/22/24 02/02/25 01/19/25 History omeprazole 20 mg capsule,delayed 20 mg PO BID 04/22/24 02/02/25 01/19/25 History release CAM walker #1 ea 06/30/24 02/02/25 Unknown Rx azelastine 137 mcg (0.1 %) nasal 2 spray intranasal BID 09/29/24 02/02/25 01/19/25 History spray diphenhydramine HCl 25 mg capsule 25 mg PO TID PRN Itching 09/29/24 02/02/25 01/13/25 06:15 History nystatin 100,000 unit/gram topical 1 applic topical BID 09/29/24 02/02/25 09/28/24 18:10 History powder oxycodone 5 mg tablet 10 mg PO Q6H PRN Pain 09/29/24 02/02/25 01/20/25 History tizanidine 4 mg tablet 4 mg PO Q8H PRN Muscle Spasm 09/29/24 02/02/25 01/16/25 History fluoxetine 40 mg capsule 40 mg PO DAILY 01/15/25 02/02/25 01/15/25 06:20 History insulin glargine 100 unit/mL (3 8 unit SUBCUT BEDTIME 01/15/25 02/02/25 01/19/25 History mL) subcutaneous pen (Lantus Solostar U-100 Insulin) tramadol 50 mg tablet 50 - 100 mg (1 - 2 x 50 mg) PO Q8H 01/20/25 02/02/25 Unknown Rx PRN pain #30 tabs Allergies Allergy/AdvReac Type Severity Reaction Status Date / Time sulfamethoxazole (From Allergy Rash Verified 02/02/25 13:15 Septra) trimethoprim (From ) Allergy Rash Verified 02/02/25 13:15 morphine AdvReac ADR-Halluci Verified 02/13/25 13:08 nating pregabalin (From Lyrica) AdvReac Loopy/Unste Verified 02/02/25 13:15 anoop PFSH Acute PFSH: Medical History (Updated 02/13/25 @ 09:12 by Jazmyne Narayanan MD) Diabetic ulcer of left foot Gangrene of left foot Goals of care, counseling/discussion CAD (coronary artery disease) Pulmonary hypertension Elevated troponin History of pulmonary embolism Chest pain 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 Charcot's joint of left foot MRSA bacteremia ESRD (end stage renal disease) ESRD (end stage renal disease) Chronic kidney disease Hyponatremia Influenza A Pneumonia Iron deficiency anemia Acute exacerbation of CHF (congestive heart failure) Bilateral lower extremity edema Neuropathy Chronic renal insufficiency Post laminectomy syndrome Lumbar disc disease with radiculopathy Sciatica associated with disorder of lumbosacral spine Uncontrolled insulin dependent diabetes mellitus Diabetes mellitus type 2, insulin dependent COPD (chronic obstructive pulmonary disease) Hyperlipemia Vitamin D deficiency Parkinson disease Chronic insomnia Stage 4 chronic renal impairment associated with type 2 diabetes mellitus History of CVA (cerebrovascular accident) Anemia in chronic illness Hypertension Fibromyalgia Diabetic neuropathy Hypothyroidism Surgical History S/P shoulder surgery Date of Surgery: 01/20/2025 Surgery: Open reduction internal fixation left midshaft clavicle fracture Implants: The Erin 8 hole superior midshaft clavicle plate with a combination of locking and nonlocking screws Surgeon: Dr. Obdulia MD History of left below knee amputation S/P dialysis catheter insertion History of colonoscopy 2019 Hx of hysterectomy Hx of cholecystectomy Hx of foot surgery Family History Father CAD (coronary artery disease) Mother CAD (coronary artery disease) Diabetes Grandfather CAD (coronary artery disease) Diabetes Social History Smoking and tobacco/nicotine status: never used tobacco/nicotine Quit status (tobacco/nicotine): has quit using Former quit date comment: Quit 30 years ago or more Second hand smoke exposure: No Alcohol intake: current Alcohol intake frequency: holidays/special occasions only Alcohol type: hard liquor Substance/Drug Use: never Additional social history: In past she has been intermittently full code or DNR depending on the admission. Patient is accompanied by her daughters Cyndy who is power of ip technology transactions attorney and Nereyda. Patient wants full CODE STATUS as discussed with Philip Foster MD on 09/29/2024 Vitals/I&O/Wt Last Vital Signs Temp 98.1 F 02/13/25 07:39 Pulse 64 02/13/25 11:00 Resp 16 02/13/25 11:00 BP 157/78 02/13/25 11:00 Pulse Ox 98 02/13/25 11:00 O2 Del Method Room Air 02/13/25 10:25 02/12/25 02/13/25 02/13/25 22:59 06:59 14:59 Intake Total 1000 / 1000 Balance 1000 / 1000 Physical Exam Narrative: General: No acute distress, AO x3, slightly dehydrated HEENT: PERRLA, pupils bilaterally equal and reactive Chest: Normal vesicular breath sounds, no added sounds, equal good air entry bilaterally CVS: S1-S2 regular, no murmurs, no tachycardia, no gallops, no rubs Abdomen: Soft, nontender, no organomegaly, bowel sounds present Neuro: No focal deficits, no facial deformity, AO x3, power 5/5 in all limbs Extremity: Left below-knee amputation Data 02/13/25 07:25 02/13/25 07:25 Micro: Microbiology 02/13/25 08:50 Blood Culture - Preliminary Blood SPECIMEN COLLECTED 02/13/25 08:52 Blood Culture - Preliminary Blood SPECIMEN COLLECTED A&P Assessment and plan 1. ESRD on hemodialysis: Will consult nephrology. Continue dialysis sessions as before. 2. Acute hypotension: As per patient she has been having labile blood pressures even at home. Had hypotension during dialysis today. Most likely in setting of dehydration versus possible infection/SIRS. Goal blood pressure less than 140/90 mmHg with mean over 65. Monitor blood pressures for now. Will restart antihypertensive depending on blood pressures. Check troponin cycled. Last echocardiogram from September 2024 showed an EF of 60% grade 3 diastolic dysfunction. Patient does have a history of PE. Currently on Eliquis. Remains on room air. Denies any chest pain. Follow-up blood culture, urine culture. Trend procalcitonin, check lactic acid Continue with empiric IV meropenem as per renal functions for now. As per past culture history patient has a history of UTI with ESBL E. coli. For now continue with current IV antibiotics. Hemoglobin 8.4 today. Repeat hemoglobin has baseline seem to be 9.3-10.8. Continue to monitor hemoglobin. Check iron panel, vitamin B12 folate level. If trending down will check stool for occult blood. Start on Protonix 40 mg twice daily. Check TSH. B12 level. 3. Urinary tract infection: 4. Diabetes mellitus type 2, insulin dependent: Check A1c. Sliding scale at low-dose protocol. Patient takes Lantus 8 units at home. 5. Uncontrolled hypertension: Plan: Will request home medication reconciliation to be done and restart medications accordingly. CODE STATUS: Discussed symptoms with the patient. Full code. Renal dialysis carb consistent diet Eliquis will be sufficient for DVT prophylaxis Protonix for PUD prophylaxis PDMP PDMP Reviewed: Not Reviewed Attestations Medical Necessity Statement*: Admission for more than 2 midnights for management of hypotension with syncope in a patient with history of renal disease on hemodialysis with concern for dehydration versus possible UTI Diagnoses ESRD on hemodialysis N18.6; Z99.2 Acute hypotension I95.9 Urinary tract infection N39.0 Diabetes mellitus type 2, insulin dependent E11.9; Z79.4 Uncontrolled hypertension I10
[2025-02-13 12:38] LABS: Estmated Average Glucose 97; Hemoglobin A1C 5.0 % (4.0-6.0)
[2025-02-13 12:50] LABS: Procalcitonin 0.25 ng/mL (0-0.5); Thyroid Stimulating Hormone 0.22 uIU/mL (0.27-4.20); Vitamin B12 823 pg/mL (232-1245)
[2025-02-13 13:00] LABS: Iron 68 ug/dL (37-145); Total Iron Binding Capacity 146 mcg/dl; Unsaturated Iron Binding 78 ug/dL (112-347)
--- NOTE | 2025-02-13 13:40 | ECG_ITS ---
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 Measurements Intervals [place] Rate: 67 P: 0 CA: 0 QRS: 31 QRSD: 100 T: 55 QT: 420 QTc: 446 Interpretive Statements ATRIAL FIBRILLATION POSSIBLE LATERAL MYOCARDIAL INFARCTION , PROBABLY OLD [30 ms Q WAVE IN I/aVL/V5/V6] Compared to ECG 02/13/2025 07:40:38 Myocardial infarct finding now present T-wave abnormality no longer present Electronically Signed On 02-14-2025 11:58:34 CDT by Gabino Feng M.D. [email or web address] [id number]
[2025-02-13 13:45] LABS: Free T4 Free Thyroxine 1.83 ng/dL (0.82-1.77)
[2025-02-13 13:54] LABS: Troponin 5 6HR 31.77 ng/L (0-10); Troponin 5 6HR Delta -11.23 ng/L (0-12)
[2025-02-13 13:55] LABS: Lactic Sepsis W/Reflex 0.7 mmol/L (0.5-2.2)
--- NOTE | 2025-02-13 14:58 | P.MISC_ITS ---
Miscellaneous Note Purpose of Documentation: Patient admitted to the [facility] for observation and medical comorbidity management. Had orthopedic appointment today which was missed due to hospitalization. Note: This a 79-year-old female who is just over 3 weeks out from open reduction internal fixation of left clavicle shaft fracture. Incision is healing well. She has been doing well however, earlier this week she felt a painful pop in the left shoulder and was seen in the emergency department, where she was diagnosed with an acute fracture to proximal end of the clavicle. With review of the x- rays from the emergency department, the proximal end of the clavicle is still fixed with orthopedic plate and screws. At this time, x-ray findings were discussed with Dr. Crystal Steiner MD. We will plan to continue conservative treatment as reduction of both the more proximal and midshaft fractures remain stable with orthopedic plate and screws. Patient will be managed with a sling for immobilization. This was discussed extensively with the patient here in the hospital. When she is discharged and medical comorbidities are well-managed, we will follow-up with her in the clinic.
[2025-02-13] MEDS: oxyCODONE-APAP 5-325 mg Tablet 1 TAB PO ×2 (16:52→23:25)
--- NOTE | 2025-02-13 17:36 | PM.CONSULT ---
Providers/Reason For Consult Consulting Physician/Specialty*: [facility]/NEPHROLOGY Reason for Consult*: ESRD Attending Physician: Nic Pack MD Primary Care Provider: Keo Delvalle DO History of Present Illness History of Present Illness Meghna Chaudhari is a 79 year old female Patient is a 79-year-old female with past medical history of end-stage renal disease on dialysis, currently in long-term resident, history of diabetes, hypertension and Parkinson's disease that was sent to the emergency department from the dialysis center due to hypotension. Patient was found to have a blood pressure of 80 systolic and received 1 L of fluid bolus. Denies any other complaints. Lab data reviewed, vital signs are stable on presentation. Review of Systems Narrative: negatuve Medications/Allergies Home Medications ?Medication ?Instructions ?Recorded ?Confirmed ?Last Taken ?Type bimatoprost 0.01 % eye drops 1 drp ophthalmic (eye) BEDTIME 04/07/22 02/13/25 02/12/25 18:45 History (Lumigan) carbidopa 25 mg-levodopa 100 mg 1 tab PO TID 04/07/22 02/13/25 02/13/25 05:15 History tablet furosemide 40 mg tablet (Lasix) 40 mg PO BID 04/07/22 02/13/25 02/13/25 05:15 History insulin aspart U-100 100 unit/mL See Rx Instructions .Route .COMPLEX 04/07/22 02/13/25 02/12/25 17:10 History (3 mL) subcutaneous pen (Novolog FlexPen U-100 Insulin aspart) loperamide 2 mg tablet (Imodium 2 mg PO Q6H PRN Loose Stool 04/07/22 02/13/25 02/10/25 11:30 History A-D) metolazone 5 mg tablet 5 mg PO QAM 04/07/22 02/13/25 02/13/25 05:15 History ondansetron HCl 4 mg tablet 4 mg PO Q6H PRN Nausea And Vomiting 04/07/22 02/13/25 01/28/25 05:25 History simvastatin 40 mg tablet 40 mg PO BEDTIME@21 04/07/22 02/13/25 02/12/25 18:45 History bisacodyl 10 mg rectal suppository 10 mg IA DAILY PRN Constipation 07/14/22 02/13/2524 History Stump Gear And Spline Grinder #1 ea 11/21/22 02/13/25 Unknown Rx alprazolam 0.5 mg tablet (Xanax) 0.5 mg PO TID PRN Anxiety 04/29/23 02/13/25 02/12/25 08:30 History vitamin A and D 1 applic topical DIRECTED 04/29/23 02/13/25 09/28/24 18:10 History fluticasone propionate 50 1 mcg intranasal BID 03/19/24 02/13/25 02/13/25 05:15 History mcg/actuation nasal spray,suspension (Flonase Allergy Relief) levothyroxine 150 mcg tablet 150 mcg PO DAILY 03/19/24 02/13/25 02/13/25 17:15 History trihexyphenidyl 2 mg tablet 2 mg PO TID 03/19/24 02/13/25 02/13/25 05:20 History white petrolatum (Vaseline jelly, 1 applic topical PRN 03/19/24 02/13/25 12/15/24 23:25 History topical) apixaban 5 mg tablet (Eliquis) 5 mg PO BID 03/30/24 02/13/25 02/13/25 05:15 History acetaminophen 325 mg tablet 1,000 mg PO Q6H 04/22/24 02/13/25 02/13/25 05:15 History gabapentin 100 mg capsule 200 mg PO QPM 04/22/24 02/13/25 02/12/25 18:45 History omeprazole 20 mg capsule,delayed 20 mg PO BID 04/22/24 02/13/25 02/13/25 05:15 History release CAM walker #1 ea 06/30/24 02/13/25 Unknown Rx azelastine 137 mcg (0.1 %) nasal 2 spray intranasal BID 09/29/24 02/13/25 02/13/25 05:15 History spray diphenhydramine HCl 25 mg capsule 25 mg PO TID PRN Itching 09/29/24 02/13/25 02/13/25 05:15 History nystatin 100,000 unit/gram topical 1 applic topical BID 09/29/24 02/13/25 09/28/24 18:10 History powder oxycodone 5 mg tablet 5 mg PO Q6H PRN Pain 09/29/24 02/13/25 02/13/25 05:15 History tizanidine 4 mg tablet 4 mg PO Q8H PRN Muscle Spasm 09/29/24 02/13/25 02/13/25 05:20 History fluoxetine 40 mg capsule 20 mg PO DAILY 01/15/25 02/13/25 02/13/25 05:15 History insulin glargine 100 unit/mL (3 8 unit SUBCUT BEDTIME 01/15/25 02/13/25 02/12/25 18:40 History mL) subcutaneous pen (Lantus Solostar U-100 Insulin) Allergies Allergy/AdvReac Type Severity Reaction Status Date / Time sulfamethoxazole (From Allergy Rash Verified 02/02/25 13:15 Septra) trimethoprim (From ) Allergy Rash Verified 02/02/25 13:15 morphine AdvReac ADR-Halluci Verified 02/13/25 13:08 nating pregabalin (From Lyrica) AdvReac Loopy/Unste Verified 02/02/25 13:15 anoop Current Medications Generic Name Dose Route Start Last Admin Trade Name Freq PRN Reason Stop Dose Admin Apixaban 5 mg 02/13/25 17:00 02/13/25 16:53 Apixaban 5 Mg Tablet PO 5 mg BID BILLIE Administration Docusate Sodium 100 mg 02/13/25 17:00 02/13/25 16:53 Docusate Sodium 100 Mg Capsule PO Not Given BID BILLIE Gabapentin 200 mg 02/13/25 17:00 02/13/25 16:53 Gabapentin 100 Mg Capsule PO 200 mg QPM BILLIE Administration Insulin Human Lispro 0 unit 02/13/25 18:00 02/13/25 17:20 Insulin Lispro 100 Unit/1 Ml SUBCUT Not Given WM&BEDTIME BILLIE Protocol Oxycodone/Acetaminophen 1 tab 02/13/25 16:46 02/13/25 16:52 Oxycodone-Apap 5-325 Mg Tablet PO 1 tab Q6H PRN Administration MODERATE PAIN Pantoprazole Sodium 40 mg 02/13/25 17:00 02/13/25 16:[address] 40 Mg Tablet PO 40 mg BID BILLIE Administration PFSH Acute PFSH: Medical History (Updated 02/13/25 @ 09:12 by Jazmyne Narayanan MD) Diabetic ulcer of left foot Gangrene of left foot Goals of care, counseling/discussion CAD (coronary artery disease) Pulmonary hypertension Elevated troponin History of pulmonary embolism Chest pain 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 Charcot's joint of left foot MRSA bacteremia ESRD (end stage renal disease) ESRD (end stage renal disease) Chronic kidney disease Hyponatremia Influenza A Pneumonia Iron deficiency anemia Acute exacerbation of CHF (congestive heart failure) Bilateral lower extremity edema Neuropathy Chronic renal insufficiency Post laminectomy syndrome Lumbar disc disease with radiculopathy Sciatica associated with disorder of lumbosacral spine Uncontrolled insulin dependent diabetes mellitus Diabetes mellitus type 2, insulin dependent COPD (chronic obstructive pulmonary disease) Hyperlipemia Vitamin D deficiency Parkinson disease Chronic insomnia Stage 4 chronic renal impairment associated with type 2 diabetes mellitus History of CVA (cerebrovascular accident) Anemia in chronic illness Hypertension Fibromyalgia Diabetic neuropathy Hypothyroidism Surgical History S/P shoulder surgery Date of Surgery: 01/20/2025 Surgery: Open reduction internal fixation left midshaft clavicle fracture Implants: The Erin 8 hole superior midshaft clavicle plate with a combination of locking and nonlocking screws Surgeon: Dr. Obdulia MD History of left below knee amputation S/P dialysis catheter insertion History of colonoscopy 2020 Hx of hysterectomy Hx of cholecystectomy Hx of foot surgery Family History Father CAD (coronary artery disease) Mother CAD (coronary artery disease) Diabetes Grandfather CAD (coronary artery disease) Diabetes Social History Smoking and tobacco/nicotine status: never used tobacco/nicotine Quit status (tobacco/nicotine): has quit using Former quit date comment: Quit 30 years ago or more Second hand smoke exposure: No Alcohol intake: current Alcohol intake frequency: holidays/special occasions only Alcohol type: hard liquor Substance/Drug Use: never Additional social history: In past she has been intermittently full code or DNR depending on the admission. Patient is accompanied by her daughters Cyndy who is power of admitted attorneys and Nereyda. Patient wants full CODE STATUS as discussed with Philip Foster MD on 09/29/2024 Vitals/I&O/Wt Last Vital Signs Temp 98.6 F 02/13/25 16:00 Pulse 105 H 02/13/25 16:00 Resp 18 02/13/25 16:52 BP 149/55 02/13/25 16:00 Pulse Ox 96 02/13/25 16:52 O2 Del Method Room Air 02/13/25 16:00 02/13/25 02/13/25 02/13/25 06:59 14:59 22:59 Intake Total 1240 / 1240 Balance 1240 / 1240 Weight last 48 hrs Weight 78.471 kg Physical Exam Narrative: awake , alert , no distress No JVD HEENT S1S2 RRR Lungs clear abd soft , non tender no edema no rash Data 02/13/25 07:25 02/13/25 07:25 Micro: Microbiology 02/13/25 07:50 Bacterial Antigens - Final Urine Kidney 02/13/25 08:50 Blood Culture - Preliminary Blood SPECIMEN COLLECTED 02/13/25 08:52 Blood Culture - Preliminary Blood SPECIMEN COLLECTED A&P Assessment and plan 1. ESRD on dialysis: Plan: 1. End-stage renal disease: Will plan on dialysis tomorrow, no acute indication for dialysis today 2. Hypotension and near syncope, can give gentle IV fluids, if hypotension persistent could consider midodrine., Rule out sepsis. 3. History of hypertension hold antihypertensives 4. Anemia: Continue to monitor, will order CHANDRAKANT pt evaluated using AV cart. Time spent 40 min PDMP PDMP Reviewed: Not Reviewed Coding Level of Care Code Acute Code for Chg Fwd Diagnoses ESRD on dialysis N18.6; Z99.2
[2025-02-13] MEDS: ATORVASTATIN 20 MG TABLET PO (21:32)
[2025-02-13] MEDS: carbidopa-levodopa 25-100mg Tablet 1 EACH PO (21:32)
[2025-02-13] MEDS: meropenem 1,000 mg SDV 1000 MG IVP (21:32)
[2025-02-14] VITALS (10 sets, daily range): BP systolic 90–176; BP diastolic 44–94; PULSE 66–84; RESP 16–18; TEMP 36.6–37.1; O2SAT 96–99
[2025-02-14] MEDS: carbidopa-levodopa 25-100mg Tablet 1 EACH PO ×3 (04:57→20:44)
[2025-02-14 05:02] LABS: Hematocrit 26.3 % (36-47); Hemoglobin 7.90 g/dL (11.27-16.99); Mean Corpuscular HGB Conc 30.0 g/dL (30-55); Mean Corpuscular Hemoglobin 28.5 pg (27-33); Mean Corpuscular Volume 94.9 fl (85-98); Nucleated Red Blood Cells % 0 %; Platelet Count 210 10^3/cmm (157-399); Red Blood Count 2.77 10^6/uL (3.85-5.65); White Blood Count 7.35 10^3/uL (3.29-11.43)
[2025-02-14 05:17] LABS: Alanine Aminotransferase < 5 U/L (0-33); Albumin Level 3.5 g/dL (3.5-5.2); Alkaline Phosphatase 134 U/L (35-105); Anion Gap 17.0 (5-19); Aspartate Amino Transferase 7 U/L (0-32); Blood Urea Nitrogen 31 mg/dL (8-23); Calcium 8.2 mg/dL (8.5-10.5); Carbon Dioxide 27 mmol/L (22-29); Chloride 100 mmol/L (98-107); Cholesterol 86 mg/dL (0-200); Globulin 2.8 g/dL (1.3-4.6); Glucose 91 mg/dL (65-115); HDL Cholesterol 27 mg/dL (60-100); Magnesium 1.6 mg/dL (1.7-2.3); Osmolality Calculated 296 mOsm/kg (285-295); Potassium 4.0 mmol/L (3.5-5.1); Sodium 140 mmol/L (136-145); Total Protein 6.3 g/dL (6.6-8.7); Triglycerides 117 mg/dL (0-150)
[2025-02-14 05:19] LABS: Procalcitonin 0.42 ng/mL (0-0.5)
[2025-02-14 05:23] LABS: Creatinine Clr Calc Pharmacy 12.3051
[2025-02-14] MEDS: meropenem 1,000 mg SDV 1000 MG IVP (09:10)
[2025-02-14] MEDS: oxyCODONE-APAP 5-325 mg Tablet 1 TAB PO ×3 (09:10→22:19)
--- NOTE | 2025-02-14 11:21 | PC.CHAP ---
Pastoral Care Encounter/Spiritual Assessment Type of Contact [] Declined personal development educator visit [] Patient/Family/Request visit [] Outpatient visit [] Follow-up visit [] Physician referral [] Code/Alert [X] Routine visit [] Staff referral [] Actively dying [] Patient sleeping [] Family support [] [x] Out of room [] Palliative care [] [] Receiving care in room [] Pre-surgical visit [] Trauma [] Long length of stay [] ICU visit [] Other: Relational/Emotional Strength [] Patient feels connected with others/family/visitors/staff [] Distress [] Loneliness/isolation [] Abandonment Spirituality of Patient [] Person of Eve [] Attends Advent of their Eve [] Believes in Prayer [] Reads Bible or Taoism materials [] There are Spiritual issues to be addressed Art Director Interventions [] Prayer [] Active listening [] Non-anxious presence [] Spiritual/emotional support [] Crisis/trauma care [] Spiritual counseling [] Bereavement support [] Provided bereavement packet [] Provided Bible/devotional materials [] Provided toy/stuffed animal, coloring book to patient or family member [] Provided Communion [] Anointing/[place] [] Salvation [] Completed spiritual assessment [] Other: Impact on Illness or Injury [] Angry [] Fearful [] Anxious [] Often cries [] Exhaustion [] Unable to work [] Unable to attend christian [] Unable to walk/stand [] Unable to read [] Unable to drive [] Unable to eat/drink [] Unable to sleep [] Unable to be with family [] Patient intubated [] Other: Summary Time spent with patient
--- NOTE | 2025-02-14 11:37 | P.PN_ITS ---
Subjective 2 Subjective: no new c/o Medications: Reviewed: Yes Vitals/I&O/Wt Last Vital Signs Temp 98.3 F 02/14/25 07:20 Pulse 70 02/14/25 07:20 Resp 18 02/14/25 09:10 BP 148/68 02/14/25 07:20 Pulse Ox 99 02/14/25 09:10 O2 Del Method Room Air 02/14/25 07:20 02/13/25 02/14/25 02/14/25 22:59 06:59 14:59 Intake Total 240 / 1480 240 / 1720 360 / 360 Output Total 340 / 340 Balance 240 / 1480 -100 / 1380 360 / 360 Weight last 48 hrs Weight 78.471 kg Weight 78.471 kg Physical Exam 2 Narrative: awake , alert , no distress No JVD HEENT S1S2 RRR Lungs clear abd soft , non tender no edema no rash Data 02/14/25 02:43 02/14/25 02:43 Micro: Microbiology 02/13/25 08:50 Blood Culture - Preliminary Blood NEGATIVE TO DATE 02/13/25 08:52 Blood Culture - Preliminary Blood NEGATIVE TO DATE 02/13/25 07:50 Bacterial Antigens - Final Urine Kidney A&P Assessment and plan 1. ESRD on dialysis: Plan: 1. End-stage renal disease: HD today 2. Hypotension and near syncope,, if hypotension persistent could consider midodrine., Rule out sepsis. 3. History of hypertension holding antihypertensives 4. Anemia: Continue to monitor, will order CHANDRAKANT pt evaluated using AV cart. Time spent 40 min PDMP PDMP Reviewed: Not Reviewed Attestations 2 Medical Necessity Statement*: per [facility] Coding Level of Care Code Acute Code for Chg Fwd Diagnoses ESRD on dialysis N18.6; Z99.2
--- NOTE | 2025-02-14 16:42 | XRR_ITS ---
PROCEDURE INFORMATION: Exam: XR Sacrum and Coccyx, 2 or More Views Exam date and time: 02/14/2025 8:23 PM Age: 79 years old Clinical indication: Pain in coccyx area; Additional info: Tailbone pain post fall; HX tailbone FX x 10yrs ago TECHNIQUE: Imaging protocol: XR of the sacrum and coccyx, 2 or more views. Total images: 3 COMPARISON: 1. CR XR sacrum coccyx min 2V [id number] 01/15/2025 10:[address] abdomen pelvis wo con [id number] 10/02/2024 8:[address] abdomen pelvis wo con [id number] 03/19/2024 7:02 AM 4. CR (CHEST, ) 02/06/2025 7:09 PM FINDINGS: Bones/joints: Postoperative changes consistent with discetomy/fusion of at least the L4 through S1 levels, extending beyond the superior field of view, with fused segments and hardware in satisfactory alignment/position insofar as partially included within field of view. Prior L5 laminectomy. Sacroiliac joint degenerative manifestations. Pubic symphysis mild degenerative changes (osteitis pubis). Bilateral hip mild degenerative change. No acute displaced fracture, subluxation or dislocation. Qualitative demineralization of bones (osteopenia) limiting evaluation for nondisplaced fractures. Soft tissues: Dorsal sacrococcygeal subcutaneous emphysema, generalized. Otherwise dermal and superficial subcutaneous soft tissues as visualized appear normal without mass or induration. Gastrointestinal tract: No obstructive findings insofar as bowel visualized. Vasculature: Vascular structures demonstrate atherosclerosis. Other findings: Presumed spinal stimulator generator projects over the left iliac crest, the leads excluded from the [id number]. XR/XR sacrum coccyx min 2V [id number] IMPRESSION: 1. Dorsal sacrococcygeal subcutaneous emphysema, generalized. 2. No acute displaced fracture with an low degree of confidence due to technique/osteopenia accounting for suboptimal visualization of the osseous structures COMMENTS: 1. Qualitative demineralization of bones (osteopenia) limiting evaluation for nondisplaced fractures. 2. If symptoms suggest acute fracture, CT may be useful for high clinical index of suspicion; otherwise persistent or progressive symptoms, or concern for osteomyelitis may warrant nonurgent MRI.
--- NOTE | 2025-02-14 16:50 | P.PN_ITS ---
Subjective 2 Subjective: Patient complains of tailbone pain. She is concerned that she broke it with her fall 3 weeks ago. She also complains of hip pain and when she points to the area on another person she is pointing to the middle of the left buttock to. At this time she is laying on her left buttock that without significant discomfort. She also complains of the side effects of hemodialysis with neuropathy and pain. She describes taking Zanaflex oxycodone and Benadryl usually after dialysis. Vitals/I&O/Wt Last Vital Signs Temp 98.8 F 02/14/25 15:50 Pulse 78 02/14/25 15:50 Resp 16 02/14/25 15:50 BP 138/72 02/14/25 15:50 Pulse Ox 98 02/14/25 15:50 O2 Del Method Room Air 02/14/25 15:50 02/14/25 02/14/25 02/14/25 06:59 14:59 22:59 Intake Total 240 / 1720 360 / 360 Output Total 340 / 340 Balance -100 / 1380 360 / 360 Weight last 48 hrs Weight 78.471 kg Weight 78.471 kg Physical Exam 2 Narrative: Patient is alert and oriented no acute distress Heart is regular normal S1-S2 without murmurs clicks gallops or rubs lungs are clear to auscultation without wheezes rales or rhonchi abdomen soft nontender nondistended positive bowel sounds extremities left below-knee amputation right leg is intact. No significant edema Data 02/14/25 02:43 02/14/25 02:43 Micro: Microbiology 02/13/25 07:50 Urine Culture - Preliminary Urine,Clean Catch 02/13/25 08:50 Blood Culture - Preliminary Blood NEGATIVE TO DATE 02/13/25 08:52 Blood Culture - Preliminary Blood NEGATIVE TO DATE 02/13/25 07:50 Bacterial Antigens - Final Urine Kidney A&P Assessment and plan 1. Acute hypotension: As per patient she has been having labile blood pressures even at home. Had hypotension during dialysis today. Questional dehydration versus postural hypotension versus autonomic dysfunction due to Parkinson's disease. History of hypertension. Having recurrent hypotensive episodes. Does not take any antihypertensives. She does take metolazone oxycodone and tizanidine which could contribute to hypotension. As per nephrology consider midodrine. Will likely need to prescribe so she can take at home prior to hemodialysis in particular. Last echocardiogram from September 2024 showed an EF of 60% grade 3 diastolic dysfunction. 2. ESRD on hemodialysis: Will consult nephrology. Continue dialysis sessions as before. Appreciate nephrology assistance. Nephrology to order EAS for anemia 3. Urinary tract infection: The urine test was markedly positive however urine culture is negative. Will discontinue meropenem and prescribe Omnicef for a few days to be complete 4. Diabetes mellitus type 2, insulin dependent: A1c is 5.0 Sliding scale at low-dose protocol. Continue Lantus 8 units 5. Uncontrolled hypertension: This problem appears to be resolved she does not have an antihypertensive on her medication list Plan: Ordered sacral x-ray Added Benadryl oral as needed to patient's regimen for her post hemodialysis symptomatology. Can likely DC home tomorrow CODE STATUS: Full code. Renal dialysis carb consistent diet Eliquis will be sufficient for DVT prophylaxis PUD prophylaxis not indicated PDMP PDMP Reviewed: Not Reviewed Attestations 2 Medical Necessity Statement*: Requires continued hospitalization for management of hypotension with syncope in a patient with history of renal disease on hemodialysis Coding Level of Care Code Acute Code for Chg Fwd Diagnoses Acute hypotension I95.9 ESRD on hemodialysis N18.6; Z99.2 Urinary tract infection N39.0 Diabetes mellitus type 2, insulin dependent E11.9; Z79.4 Uncontrolled hypertension I10
[2025-02-14] MEDS: ATORVASTATIN 20 MG TABLET PO (20:44)
[2025-02-15] VITALS (7 sets, daily range): BP systolic 97–147; BP diastolic 50–63; PULSE 71–74; RESP 13–18; TEMP 36.6–37.2; O2SAT 94–97
[2025-02-15] MEDS: carbidopa-levodopa 25-100mg Tablet 1 EACH PO ×2 (04:20→13:58)
[2025-02-15] MEDS: oxyCODONE-APAP 5-325 mg Tablet 1 TAB PO ×2 (05:25→15:31)
[2025-02-15 05:42] LABS: Hematocrit 28.4 % (36-47); Hemoglobin 8.60 g/dL (11.27-16.99); Mean Corpuscular HGB Conc 30.3 g/dL (30-55); Mean Corpuscular Hemoglobin 28.5 pg (27-33); Mean Corpuscular Volume 94.0 fl (85-98); Nucleated Red Blood Cells % 0 %; Platelet Count 187 10^3/cmm (157-399); Red Blood Count 3.02 10^6/uL (3.85-5.65); White Blood Count 5.02 10^3/uL (3.29-11.43)
[2025-02-15 05:57] LABS: Alanine Aminotransferase < 5 U/L (0-33); Albumin Level 3.6 g/dL (3.5-5.2); Alkaline Phosphatase 134 U/L (35-105); Anion Gap 15.6 (5-19); Aspartate Amino Transferase 9 U/L (0-32); Blood Urea Nitrogen 17 mg/dL (8-23); Calcium 9.0 mg/dL (8.5-10.5); Carbon Dioxide 29 mmol/L (22-29); Chloride 101 mmol/L (98-107); Globulin 3.2 g/dL (1.3-4.6); Glucose 90 mg/dL (65-115); Magnesium 1.8 mg/dL (1.7-2.3); Osmolality Calculated 295 mOsm/kg (285-295); Potassium 3.6 mmol/L (3.5-5.1); Sodium 142 mmol/L (136-145); Total Protein 6.8 g/dL (6.6-8.7)
[2025-02-15 06:02] LABS: Creatinine Clr Calc Pharmacy 16.9725
--- NOTE | 2025-02-15 10:54 | P.PN_ITS ---
Subjective 2 Subjective: no new c/o Medications: Reviewed: Yes Vitals/I&O/Wt Last Vital Signs Temp 98.3 F 02/15/25 07:26 Pulse 71 02/15/25 07:26 Resp 18 02/15/25 07:26 BP 144/63 02/15/25 07:26 Pulse Ox 96 02/15/25 07:26 O2 Del Method Room Air 02/15/25 07:26 02/14/25 02/15/25 02/15/25 22:59 06:59 14:59 Intake Total 1100 / 1460 480 / 1940 120 / 120 Output Total 1503 / 1503 Balance -403 / -43 480 / 437 120 / 120 Weight last 48 hrs Weight 78.471 kg Weight 78.5 kg Weight 78.471 kg Weight 78.471 kg Physical Exam 2 Narrative: awake , alert , no distress No JVD HEENT S1S2 RRR Lungs clear abd soft , non tender no edema no rash Data 02/15/25 04:20 02/15/25 04:20 Micro: Microbiology 02/13/25 07:50 Urine Culture - Final Urine,Clean Catch 02/13/25 08:50 Blood Culture - Preliminary Blood NEGATIVE TO DATE 02/13/25 08:52 Blood Culture - Preliminary Blood NEGATIVE TO DATE A&P Assessment and plan 1. ESRD on dialysis: Plan: 1. End-stage renal disease: HD yesterday 2. Hypotension and near syncope,, improved 3. History of hypertension holding antihypertensives 4. Anemia: Continue to monitor, will order CHANDRAKANT 5 UTI pt evaluated using AV cart. Time spent 40 min PDMP PDMP Reviewed: Not Reviewed Attestations 2 Medical Necessity Statement*: per [facility] Coding Level of Care Code Acute Code for Chg Fwd Diagnoses ESRD on dialysis N18.6; Z99.2
--- NOTE | 2025-02-15 13:29 | P.DS_ITS ---
Discharge Providers Date of Admission: 02/13/25 09:58 Date of Discharge: February 15, 2025 Attending Provider at Admission: Nic Pack MD Attending Provider at Discharge: Freddie Morris DO Primary Care Provider: Keo Delvalle DO Diagnoses at Discharge Discharge Diagnosis 1. ESRD on dialysis: Reason for Visit Reason for Visit: syncope, lethargy, hypotensive Brief History: Meghna Chaudhari is a 79 year old female with past medical history of end-stage renal disease on hemodialysis, senior living resident, history of ESBL UTI, hypertension, type 2 diabetes mellitus, parkinsonism presents to the ER today from dialysis center. As per the patient and ER physician patient was getting dialysis today when she developed hypotension and passed out. In the ER she was found to have a blood pressure as low as 80 systolic and was given 1 L of IV fluid bolus after which blood pressures improved to 145 systolic. Currently on examination patient is sitting up in bed without any complaints with a blood pressure of 160 systolic. Patient has felt recently denies any nausea, vomiting, abdominal pain, dysuria. States she has had chronic diarrhea with multiple soft incontinent bowel movements every day for last 1 year. She has had workup done as an outpatient with gastroenterology without any help Hospital Course Hospital Course Patient was admitted for acute hypotension. Any offending agents were discontinued. Urine appeared abnormal and blood and urine cultures were taken. Patient was given empiric treatment with meropenem. She has a history of UTI with a ESBL E. coli. Patient has had a few episodes of low blood pressures while hospitalized. In fact hemodialysis was held on Sunday due to to hypotension. She tolerated hemodialysis on Sunday. Patient reports that she has significant post hemodialysis symptomatology with shaking and peripheral neuropathy pains. This was managed with her usual combination of muscle relaxant Benadryl and pain pill. Sacral x-ray was taken due to patient's persistent discomfort status post fall 3 weeks ago. X-ray was negative. Patient has not been receiving her usual Lasix and metolazone medications. I would recommend discontinuing metolazone may consider continuing Lasix. If patient's blood pressures remain soft or hypotensive would discontinue completely. And then if patient has further problems we could consider midodrine. Patient has other medications that could contribute to hypotension including when she takes her oxycodone Benadryl and tizanidine. Patient is discharged in stable and improved condition with the above changes. Physical Exam Narrative: Patient is alert and oriented no acute distress Heart is regular normal S1-S2 without murmurs clicks gallops or rubs lungs are clear to auscultation without wheezes rales or rhonchi abdomen soft nontender nondistended positive bowel sounds extremities left below-knee amputation right leg is intact. No significant edema Discharge Data Studies Completed and Pending Completed Studies During Hospitalization Category Date Time Status XR chest 1V portable [id number] Stat Exams 02/13/25 07:46 Completed XR sacrum coccyx min 2V [id number] Routine Exams 02/14/25 16:42 Completed Pending at discharge Category Date Time Status Blood Culture Stat Lab 02/13/25 08:50 Results Complete Blood Count w/Auto AM LABS Lab 02/16/25 04:00 Ordered Comprehensive Metabolic Panel AM LABS Lab 02/16/25 04:00 Ordered Magnesium AM LABS Lab 02/16/25 04:00 Ordered Phosphorus AM LABS Lab 02/16/25 04:00 Ordered Radiology Impressions Chest X-Ray 02/13/25 07:46 IMPRESSION: Stable chest without acute abnormality as above. Sacrum and Coccyx X-Ray 02/14/25 16:42 IMPRESSION: 1. Dorsal sacrococcygeal subcutaneous emphysema, generalized. 2. No acute displaced fracture with an low degree of confidence due to technique/osteopenia accounting for suboptimal visualization of the osseous structures COMMENTS: 1. Qualitative demineralization of bones (osteopenia) limiting evaluation for nondisplaced fractures. 2. If symptoms suggest acute fracture, CT may be useful for high clinical index of suspicion; otherwise persistent or progressive symptoms, or concern for osteomyelitis may warrant nonurgent MRI. Laboratory Results WBC 5.02 10^3/uL (3.29-11.43) 02/15/25 04:20 RBC 3.02 10^6/uL (3.85-5.65) L 02/15/25 04:20 Hgb 8.60 g/dL (11.27-16.99) L 02/15/25 04:20 Hct 28.4 % (36-47) L 02/15/25 04:20 MCV 94.0 fl (85-98) 02/15/25 04:20 MCH 28.5 pg (27-33) 02/15/25 04:20 MCHC 30.3 g/dL (30-55) 02/15/25 04:20 RDW 14.5 % (12.1-15.1) 02/15/25 04:20 Plt Count 187 10^3/cmm (157-399) 02/15/25 04:20 MPV 11.2 fL (7.4-10.4) H 02/15/25 04:20 Neut % (Auto) 53.0 % 02/15/25 04:20 Lymph % (Auto) 28.5 % 02/15/25 04:20 [place] % (Auto) 13.1 % 02/15/25 04:20 Eos % (Auto) 3.6 % 02/15/25 04:20 Baso % (Auto) 1.2 % 02/15/25 04:20 Neut # (Auto) 2.66 10^3/uL (1.8-7.7) 02/15/25 04:20 Lymph # (Auto) 1.4 10^3/uL (0.8-4.8) 02/15/25 04:20 [place] # (Auto) 0.7 10^3/uL (0.2-0.9) 02/15/25 04:20 Eos # (Auto) 0.2 10^3/uL (0.0-0.8) 02/15/25 04:20 Baso # (Auto) 0.1 10^3/uL (0.0-0.1) 02/15/25 04:20 Nucleated RBC % (auto) 0 % 02/15/25 04:20 Nucleated RBCs # 0.0 /100WBC 02/15/25 04:20 Sodium 142 mmol/L (136-145) 02/15/25 04:20 Potassium 3.6 mmol/L (3.5-5.1) 02/15/25 04:20 Chloride 101 mmol/L (98-107) 02/15/25 04:20 Carbon Dioxide 29 mmol/L (22-29) 02/15/25 04:20 Anion Gap 15.6 (5-19) 02/15/25 04:20 BUN 17 mg/dL (8-23) 02/15/25 04:20 Creatinine 2.9 mg/dL (0.5-0.9) H 02/15/25 04:20 GFR Calculation Not Reportable 02/15/25 04:20 Glucose 90 mg/dL (65-115) 02/15/25 04:20 POC Glucose 137 mg/dL (70-110) H 02/15/25 10:58 Estimat Average Glucose 97 02/13/25 07:25 Hemoglobin A1c 5.0 % (4.0-6.0) 02/13/25 07:25 Calculated Osmolality 295 mOsm/kg (285-295) 02/15/25 04:20 Lactic Acid 0.7 mmol/L (0.5-2.2) 02/13/25 13:29 Calcium 9.0 mg/dL (8.5-10.5) 02/15/25 04:20 Phosphorus 4.0 mg/dL (2.5-4.5) 02/15/25 04:20 Magnesium 1.8 mg/dL (1.7-2.3) 02/15/25 04:20 Iron 68 ug/dL (37-145) 02/13/25 07:25 TIBC 146 mcg/dl 02/13/25 07:25 % Saturation 46.5 % (20-50) 02/13/25 07:25 Unsat Iron Binding 78 ug/dL (112-347) L 02/13/25 07:25 Total Bilirubin 0.6 mg/dL (0.15-1.2) 02/15/25 04:20 AST 9 U/L (0-32) 02/15/25 04:20 ALT < 5 U/L (0-33) 02/15/25 04:20 Alkaline Phosphatase 134 U/L (35-105) H 02/15/25 04:20 Troponin T Baseline 43 ng/L (0-10) H 02/13/25 07:25 Troponin T 120 Minute 31.38 ng/L (0-10) H 02/13/25 08:52 Delta Troponin T -11.62 ABS# (0-10) L 02/13/25 08:52 Troponin T Hi Sens 6Hr 31.77 ng/L (0-10) H 02/13/25 13:29 Troponin T Hi Sens 6Hr Delta -11.23 ng/L (0-12) L 02/13/25 13:29 Total Protein 6.8 g/dL (6.6-8.7) 02/15/25 04:20 Albumin 3.6 g/dL (3.5-5.2) 02/15/25 04:20 Globulin 3.2 g/dL (1.3-4.6) 02/15/25 04:20 Triglycerides 117 mg/dL (0-150) 02/14/25 02:43 Cholesterol 86 mg/dL (0-200) 02/14/25 02:43 LDL Cholesterol, Calc 36 mg/dL (50-129) L 02/14/25 02:43 HDL Cholesterol 27 mg/dL (60-100) L 02/14/25 02:43 LDL/HDL Ratio 1.33 RATIO (0.00-3.22) 02/14/25 02:43 Cholesterol/HDL Ratio 3.19 mg/dL (0.0-4.40) 02/14/25 02:43 Vitamin B12 823 pg/mL (232-1245) 02/13/25 07:25 Folate 4.3 ng/mL (4.8-37.3) L 02/14/25 02:43 Procalcitonin 0.42 ng/mL (0-0.5) 02/14/25 02:43 TSH 0.22 uIU/mL (0.27-4.20) L 02/13/25 07:25 Free T4 1.83 ng/dL (0.82-1.77) H 02/13/25 07:25 Free T3 2.8 PG/ML (2.0-4.4) 02/13/25 07:25 Urine Color Yellow (Yellow) 02/13/25 07:50 Urine Appearance Cloudy (CLEAR) A 02/13/25 07:50 Urine pH 8.0 (5-7) A 02/13/25 07:50 Ur Specific [place] 1.010 (1.005-1.030) 02/13/25 07:50 Urine Protein 1+ (Negative) A 02/13/25 07:50 Urine Glucose (UA) Negative (Normal) 02/13/25 07:50 Urine Ketones Negative (Negative) 02/13/25 07:50 Urine Blood 1+ (Negative) A 02/13/25 07:50 Urine Nitrate Negative (Negative) 02/13/25 07:50 Urine Bilirubin Negative (Negative) 02/13/25 07:50 Urine Urobilinogen 0.2 mg/dL (Negative) 02/13/25 07:50 Ur Leukocyte Esterase 3+ (Negative) A 02/13/25 07:50 Urine RBC 0-2 /hpf (0-2) 02/13/25 07:50 Urine WBC >100 /hpf (0-5) H 02/13/25 07:50 Ur Squamous Epith Cells 0-5 /hpf (0-5) 02/13/25 07:50 Amorphous Sediment Not Reportable 02/13/25 07:50 Urine Bacteria Trace /hpf (NONE) 02/13/25 07:50 Hyaline Casts 27.69 /lpf 02/13/25 07:50 Influenza A (PCR) Negative (Negative) 02/13/25 07:45 Influenza Type B (PCR) Negative (Negative) 02/13/25 07:45 RSV (PCR) Negative (Negative) 02/13/25 07:45 SARS-CoV-2 (PCR) Negative (Negative) 02/13/25 07:45 Vitals Last Vital Signs Temp 98.9 F 02/15/25 11:29 Pulse 74 02/15/25 11:29 Resp 18 02/15/25 11:29 BP 147/63 02/15/25 11:29 Pulse Ox 97 02/15/25 11:29 O2 Del Method Room Air 02/15/25 11:29 Discharge Plan Discharge Patient Disposition: Home Condition: Stable Prescriptions: New cefdinir 300 mg Capsule 300 mg PO BID Qty: 7 0RF Continued (DME) [facility] See Rx Instructions .Route .MEDSUPPLY Qty: 1 0RF Rx Instructions: As directed (DME) JESUS walker See Rx Instructions .Route .MEDSUPPLY Qty: 1 0RF Rx Instructions: As directed bisacodyl 10 mg Suppository 10 mg MS DAILY PRN (Reason: Constipation) vitamin A and D Ointment 1 applic topical DIRECTED Rx Instructions: APPLY TOPICALLY AEVERY SHIFT TO BLATERAL BUTTUCK: CLEANSE WITH SOAP AND WATER AND APPLY A AND D OINTMENT FOR SHEER PREVENTION. alprazolam [Xanax] 0.5 mg Tablet 0.5 mg PO TID PRN (Reason: Anxiety) levothyroxine 150 mcg Tablet 150 mcg PO DAILY trihexyphenidyl 2 mg Tablet 2 mg PO TID Rx Instructions: give with food (meal/snack) fluticasone propionate [Flonase Allergy Relief] 50 mcg/actuation [place],Suspension 1 mcg INTRANASAL BID white petrolatum [Vaseline] Gel 1 applic TOPICAL PRN Rx Instructions: apply to buttocks to prevent shearing Eliquis 5 mg Tablet 5 mg PO BID diphenhydramine HCl 25 mg Capsule 25 mg PO TID PRN (Reason: Itching) azelastine 137 mcg (0.1 %) [place],Non-Aerosol 2 spray INTRANASAL BID Rx Instructions: administer into each nostril tizanidine 4 mg Tablet 4 mg PO Q8H PRN (Reason: Muscle Spasm) nystatin 100,000 unit/gram Powder 1 applic TOPICAL BID Rx Instructions: to groin oxycodone 5 mg Tablet 5 mg PO Q6H PRN (Reason: Pain) fluoxetine 40 mg capsule 20 mg PO DAILY insulin glargine [Lantus Solostar U-100 Insulin] 100 unit/mL (3 mL) insulin pen 8 unit SUBCUT BEDTIME furosemide [Lasix] 40 mg Tablet 40 mg PO BID ondansetron HCl 4 mg Tablet 4 mg PO Q6H PRN (Reason: Nausea And Vomiting) loperamide [Imodium A-D] 2 mg Tablet 2 mg PO Q6H PRN (Reason: Loose Stool) simvastatin 40 mg Tablet 40 mg PO BEDTIME@21 carbidopa-levodopa 25-100 mg Tablet 1 tab PO TID insulin aspart U-100 [Novolog FlexPen U-100 Insulin] 100 unit/mL (3 mL) Insulin Pen See Rx Instructions .ROUTE .COMPLEX Rx Instructions: sliding scale three times a day. IF BS LESS THAN 60, CALL MD. FOR BS 201-250=2 units 251-300=4 units 301-350=6 units 351-400=8 units call provider for bs <60 or >400 [place] 0.01 % Drops 1 drp OPHTHALMIC (EYE) BEDTIME acetaminophen 325 mg Tablet 1,000 mg PO Q6H omeprazole 20 mg Capsule,Delayed Release(Dr/Ec) 20 mg PO BID gabapentin 100 mg capsule 200 mg PO QPM Rx Instructions: Dose change only Changed metolazone 5 mg Tablet 2.5 mg PO QAM Qty: 30 0RF Referrals: Keo Delvalle DO [Primary Care Provider, Internal Medicine] Patient Instructions: Opioid Safety, Patient Portal & Fang Instructions Discharge Attestations Time Spent in Discharge Care*: less than 30 min Status at Discharge: Cognitive status at discharge: cognitively intact , Behavioral status at discharge: cooperative , Quality Metrics Clinical Quality Measures [ No reported AMI, CVA or VTE this stay] Coding Level of Care Code Acute Code for Chg Fwd Diagnoses ESRD on dialysis N18.6; Z99.2
== END 2025-02-15 16:09 | disposition intermediate care facility (04) | DRG 312 ==
LOC: ER 07:52 → MEDSURG 09:58
PROVIDERS: Admitting Provider Student in an Organized Health Care Education/Training Program; Emergency Provider Emergency Medicine; PCP Internal Medicine; Visit Provider Internal Medicine
DX: I95.3 Hypotension of hemodialysis (principal); N18.6 End stage renal disease; I13.2 Hypertensive heart and chronic kidney disease with heart failure and with stage 5 chronic kidney disease, or end stage renal disease; E11.22 Type 2 diabetes mellitus with diabetic chronic kidney disease; E11.40 Type 2 diabetes mellitus with diabetic neuropathy, unspecified; I50.9 Heart failure, unspecified; Z79.4 Long term (current) use of insulin; G20.C Parkinsonism, unspecified; E86.0 Dehydration; I25.10 Atherosclerotic heart disease of native coronary artery without angina pectoris; E03.9 Hypothyroidism, unspecified; E55.9 Vitamin D deficiency, unspecified; E78.5 Hyperlipidemia, unspecified; D64.9 Anemia, unspecified; S42.022D Displaced fracture of shaft of left clavicle, subsequent encounter for fracture with routine healing; X58.XXXD Exposure to other specified factors, subsequent encounter; Z86.711 Personal history of pulmonary embolism; Z87.440 Personal history of urinary (tract) infections; Z79.01 Long term (current) use of anticoagulants; Z86.73 Personal history of transient ischemic attack (TIA), and cerebral infarction without residual deficits; Z89.512 Acquired absence of left leg below knee; Z87.891 Personal history of nicotine dependence
CPT/HCPCS: 36415; 36416; 71045; 72220; 80053; 80061; 81001; 82607; 82746; 82962; 83036; 83540; 83550; 83605; 83735; 84100; 84145; 84439; 84443; 84481; 84484; 85025; 86403; 87040; 87086; 87637; 90935; 93005; 94664; 96361; 96372; 96374; 96375; 99285; J0696; J1815; J2185; J7030; J9999

== ENCOUNTER → 2025-02-19 14:42 | Outpatient (BNVA) | payer MEDICARE, OTHER, MEDICAID, SELFPAY | PROVIDERS: PCP Internal Medicine; Visit Provider Thoracic Surgery (Cardiothoracic Vascular Surgery) | DX: E11.52 Type 2 diabetes mellitus with diabetic peripheral angiopathy with gangrene (principal); E11.621 Type 2 diabetes mellitus with foot ulcer; L97.411 Non-pressure chronic ulcer of right heel and midfoot limited to breakdown of skin | CPT/HCPCS: 97597; A6210 ==

== ENCOUNTER → 2025-02-24 15:22 | Outpatient (BNVA) | payer MEDICARE, OTHER, MEDICAID, SELFPAY | PROVIDERS: PCP Internal Medicine; Visit Provider Nurse Practitioner | DX: Z98.890 Other specified postprocedural states (principal) | CPT/HCPCS: 73000; 99024 ==

== ENCOUNTER → 2025-02-26 10:06 | Outpatient (BNVA) | payer MEDICARE, OTHER, MEDICAID, SELFPAY | PROVIDERS: PCP Internal Medicine; Visit Provider Thoracic Surgery (Cardiothoracic Vascular Surgery) | DX: E11.52 Type 2 diabetes mellitus with diabetic peripheral angiopathy with gangrene (principal); E11.621 Type 2 diabetes mellitus with foot ulcer; L97.411 Non-pressure chronic ulcer of right heel and midfoot limited to breakdown of skin | CPT/HCPCS: 97597; A6212 ×2 ==

== ENCOUNTER → 2025-03-05 10:54 | Outpatient (BNVA) | payer MEDICARE, OTHER, MEDICAID, SELFPAY | PROVIDERS: PCP Internal Medicine; Visit Provider Thoracic Surgery (Cardiothoracic Vascular Surgery) | DX: E11.52 Type 2 diabetes mellitus with diabetic peripheral angiopathy with gangrene (principal); E11.621 Type 2 diabetes mellitus with foot ulcer; L97.411 Non-pressure chronic ulcer of right heel and midfoot limited to breakdown of skin | CPT/HCPCS: 97597; A6212; A6252 ==

== ENCOUNTER → 2025-03-12 10:09 | Outpatient (BNVA) | payer MEDICARE, OTHER, MEDICAID, SELFPAY | PROVIDERS: PCP Internal Medicine; Visit Provider Thoracic Surgery (Cardiothoracic Vascular Surgery) | DX: E11.52 Type 2 diabetes mellitus with diabetic peripheral angiopathy with gangrene (principal); E11.621 Type 2 diabetes mellitus with foot ulcer; L97.412 Non-pressure chronic ulcer of right heel and midfoot with fat layer exposed; L97.411 Non-pressure chronic ulcer of right heel and midfoot limited to breakdown of skin | CPT/HCPCS: 11042; 97597; A6212 ==

== ENCOUNTER → 2025-03-16 15:12 | Outpatient (BNVA) | payer MEDICARE, OTHER, MEDICAID, SELFPAY | PROVIDERS: PCP Internal Medicine; Visit Provider Nurse Practitioner | DX: Z98.890 Other specified postprocedural states (principal) | CPT/HCPCS: 73000 ==

== ENCOUNTER → 2025-03-19 08:40 | Outpatient (BNVA) | payer MEDICARE, OTHER, MEDICAID, SELFPAY | PROVIDERS: PCP Internal Medicine; Visit Provider Thoracic Surgery (Cardiothoracic Vascular Surgery) | DX: E11.52 Type 2 diabetes mellitus with diabetic peripheral angiopathy with gangrene (principal); E11.621 Type 2 diabetes mellitus with foot ulcer; L97.411 Non-pressure chronic ulcer of right heel and midfoot limited to breakdown of skin | CPT/HCPCS: 97597 ==

== ENCOUNTER → 2025-04-07 13:19 | Outpatient (BNVA) | payer MEDICARE, OTHER, MEDICAID, SELFPAY | PROVIDERS: PCP Internal Medicine; Visit Provider Thoracic Surgery (Cardiothoracic Vascular Surgery) | DX: Z09 Encounter for follow-up examination after completed treatment for conditions other than malignant neoplasm (principal); Z87.2 Personal history of diseases of the skin and subcutaneous tissue | CPT/HCPCS: 99212; A6212 ×2 ==